=== PATIENT | female | born 1935 | race Caucasian/White ===

== ENCOUNTER 2022-09-18 15:24 | Emergency (ER) | payer MEDICARE, BC, SELFPAY ==
[2022-09-18 15:35] VITALS: BP 127/57; PULSE 66; RESP 20; TEMP 36.1; O2SAT 99; BMI 44.2
--- NOTE | 2022-09-18 15:58 | ED.NURSE ---
dr. beebe in room.
[2022-09-18 16:44] LABS: Chloride* 100 mmol/L (96-114); Sodium* 141 mmol/L (135-149)
[2022-09-18 16:45] LABS: Potassium* 4.2 mmol/L (3.6-5.1)
[2022-09-18 16:47] LABS: Carbon Dioxide* 31 mmol/L (20-32); Creatinine* 1.7 mg/dL (0.5-1.5); Est. Creatinine Clearance* 22.17; Estimated Glomerular Filt Rate 29 ml/min
[2022-09-18 16:48] LABS: Blood Urea Nitrogen* 54 mg/dL (7-30); Calcium* 9.8 mg/dL (8.4-10.6); Glucose* 99 mg/dL (60-115)
[2022-09-18 16:49] LABS: D Dimer Quantitative* 0.91 ug/ml (0.00-0.50)
--- NOTE | 2022-09-18 17:20 | CRLHL7_ITS ---
For Patients: As a result of the Century Cures Act, medical imaging exams and procedure reports are released immediately into your electronic medical record. You may view this report before your referring provider. If you have questions, please contact your health care provider. INDICATION: Leg pain and swelling. TECHNIQUE: Ultrasound venous duplex lower left extremity. Compression venous exam was performed using blackwood-scale, color Doppler, and spectral Doppler analysis. COMPARISON: None. FINDINGS: Deep veins: Sonographic imaging demonstrates the left common femoral, deep femoral, superficial femoral, popliteal, posterior tibial and the contralateral right common femoral veins to be fully compressible with normal color Doppler blood flow. Decreased compressibility and flow within the peroneal veins is noted. Superficial veins: Greater saphenous vein is fully compressible. No popliteal cyst. IMPRESSION: Decreased compressibility and flow within the peroneal veins, consistent with acute DVT. Findings discussed with Dr. Danette Villela at 6:35 p.m. on 09/18/[address] Bowers Dictated by Tomás Bowers MD @ 09/18/2022 6:35:25 PM (Electronically Signed)
--- NOTE | 2022-09-18 18:47 | ED.GENADULT ---
HPI - General Adult General Chief complaint: Edema Stated complaint: Lipoedema Source: patient Mode of arrival: ambulatory Limitations: no limitations History of Present Illness HPI narrative: 86-year-old female coming in today complaining of left-sided leg pain. Patient does have chronic bilateral lower extremity edema that causes her chronic pain, however this pain is different. She states that a woke or up in the middle of the night. She describes the pain radiating from her toes all the way up to her mid calf and anterior salgado. The pain is circumferential. Nothing makes it better. She states that she has noticed increasing leg edema over the last couple of days she increased her Lasix from 20 mg daily to 40 mg daily but has not noticed a difference. She does not have increased pain on the right only on the left. She is supposed to be wearing compression stockings which she does not wear. She is not short of breath. She denies any chest pain. No coughing. She does have a history of chronic kidney disease, hypertension, depression, obesity, hypothyroidism and chronic bilateral lower extremity edema, she does follow up with the lymphedema clinic. Related Data Home Medications Medication Instructions Recorded Confirmed allopurinol 100 mg tablet mg 09/18/22 dapagliflozin 10 mg tablet mg 09/18/22 (Farxiga) furosemide 20 mg tablet mg 09/18/22 simvastatin 20 mg tablet mg 09/18/22 Previous Rx's Medication Instructions Recorded bupropion HCl 300 mg 24 hr tablet, 300 mg PO QAM #90 tabs 07/31/22 extended release levothyroxine 25 mcg tablet 25 mcg PO QDAY #90 tabs 07/31/22 lisinopril 20 1 tab PO QDAY #90 tabs 07/31/22 mg-hydrochlorothiazide 12.5 mg tablet apixaban 5 mg (74 tabs) tablets in See Rx Instructions PO .COMPLEX 09/18/22 a dose pack (Eliquis DVT-PE Treat #74 ea 30D Start) Allergies Allergy/AdvReac Type Severity Reaction Status Date / Time clavulanic acid Allergy Verified 09/18/22 15:35 oxycodone Allergy Verified 09/18/22 15:35 tazobactam Allergy Verified 09/18/22 15:35 Tetracyclines Allergy Verified 09/18/22 15:35 Review of Systems Status of ROS: Reports: 10 or more systems reviewed and unremarkable except as noted in History and below PFSH PFSH Social History Smoking Status: Never smoker How often do you have a drink containing alcohol: never AUDIT-C Alcohol total score: 0 Non-prescribed substance use: denies use Caffeine: No service: No Exam Narrative: Exam Narrative: Ob patient in no acute distress. Alert and oriented. Answers questions appropriately. Mood and affect are appropriate. Thoughts are goal oriented and rational. No tangential or magical thinking noted. Patient speaks in full sentences without needing to catch their breath. HEENT: Normocephalic atraumatic. Pupils are equally round reactive to light. Extraocular muscles are intact. Conjunctivae are moist without any icterus noted. Moist mucous membranes. Cardiovascular: Heart is regular rate and rhythm S1 and S2 are present without any murmurs. Lungs: Clear to auscultation bilaterally no wheezes rhonchi or rales are appreciated. Patient takes deep breaths without any discomfort. Extremities: Bilateral lower extremities . The right is bigger than the left. She does have chronic venous stasis induration changes the skin on the right . After, anterior salgado, foot on the left. I cannot feel her pulses secondary to the edema. Skin: Otherwise well perfused Const: Vital Signs, click to edit/add: Vital Signs - 24 hr 09/18/22 15:35 Temperature 97.0 F L Pulse Rate [Right Pulse Oximeter] 66 Respiratory Rate 20 Blood Pressure [Ri ght Upper Arm] 127/57 L Pulse Oximetry 99 Oxygen Delivery Me thod Room Air Course Course Hospital Course: Proceeded with some blood work: Her creatinine appears to be around her baseline last creatinine we have here was 1.6, today 1.7. Her D-dimer was slightly elevated therefore received with lower extremity ultrasound. The ultrasound did show a DVT on the left side. Vital Signs Vital signs: Initial Vital Signs Temperature 97.0 F L 09/18/22 15:35 Temperature Source Temporal Artery Scan 09/18/22 15:35 Pulse Rate 66 09/18/22 15:35 Respiratory Rate 20 09/18/22 15:35 Blood Pressure 127/57 L 09/18/22 15:35 Blood Pressure Mean 80 09/18/22 15:35 Blood Pressure Position Sitting 09/18/22 15:35 Pulse Oximetry 99 09/18/22 15:35 Oxygen Delivery Method 09/18/22 15:35 Vital Signs Temperature 97.0 F L 09/18/22 15:35 Pulse Rate 66 09/18/22 15:35 Respiratory Rate 20 09/18/22 15:35 Blood Pressure 127/57 L 09/18/22 15:35 Pulse Oximetry 99 09/18/22 15:35 Oxygen Delivery Method 09/18/22 15:35 Temperature 97.0 F L 09/18/22 15:35 Pulse Rate 66 09/18/22 15:35 Respiratory Rate 20 09/18/22 15:35 Blood Pressure 127/57 L 09/18/22 15:35 Pulse Oximetry 99 09/18/22 15:35 Oxygen Delivery Method 09/18/22 15:35 Medical Decision Making MDM Narrative Medical decision making narrative: 86-year-old female DVT left lower extremity. Will place the patient on Eliquis. She will follow up with primary provider this coming week. Medical Records Medical records reviewed: Yes I reviewed the patient's medical records Lab Data Lab results reviewed: Yes I reviewed the patient's lab results Labs: Lab Results 09/18/22 09/18/22 Range/Units 16:20 16:20 D-Dimer Quant (PE/DVT) 0.91 H (0.00-0.50) ug/ml Sodium 141 (135-149) mmol/L Potassium 4.2 (3.6-5.1) mmol/L Chloride 100 (96-114) mmol/L Carbon Dioxide 31 (20-32) mmol/L BUN 54 H (7-30) mg/dL Creatinine 1.7 H (0.5-1.5) mg/dL Estimated Creat Clear 22.17 Estimated GFR 29 ml/min Glucose 99 (60-115) mg/dL Calcium 9.8 (8.4-10.6) mg/dL Imaging Data Venous US: Attestation: I have reviewed the pertinent imaging results. Radiologist's impression: Ultrasound venous duplex lower left extremity. Compression venous exam was performed using blackwood-scale, color Doppler, and spectral Doppler analysis. COMPARISON: None. FINDINGS: Deep veins: Sonographic imaging demonstrates the left common femoral, deep femoral, superficial femoral, popliteal, posterior tibial and the contralateral right common femoral veins to be fully compressible with normal color Doppler blood flow. Decreased compressibility and flow within the peroneal veins is noted. Superficial veins: Greater saphenous vein is fully compressible. No popliteal cyst. IMPRESSION: Decreased compressibility and flow within the peroneal veins, consistent with acute DVT. Discharge Plan Discharge Clinical Impression: DVT (deep venous thrombosis) Patient Disposition: Home, Self-Care Condition: Stable Additional Instructions: Start Eliquis as prescribed. Follow-up with your primary care provider this week for further management. Prescriptions: New Eliquis DVT-PE Treat 30D Start 5 mg (74 tabs) tablets,dose pack See Rx Instructions .ROUTE .COMPLEX Qty: 74 0RF Rx Instructions: orally per package directions No Action allopurinol 100 mg tablet simvastatin 20 mg tablet Label Comments: TAKE 1 TABLET EVERY 48 HOURS furosemide 20 mg tablet Farxiga 10 mg tablet levothyroxine 25 mcg tablet 25 mcg PO QDAY Qty: 90 0RF bupropion HCl 300 mg tablet extended release 24 hr 300 mg PO QAM Qty: 90 0RF lisinopril-hydrochlorothiazide 20-12.5 mg tablet 1 tab PO QDAY Qty: 90 0RF Follow Up/Referrals: Diane Alejandra MD [Primary Care Provider] - Stand Alone Forms: [employer] Info Instructions
[2022-09-18 19:00] VITALS: BP 153/75; PULSE 72; RESP 18; TEMP 36.4; O2SAT 97
== END 2022-09-18 19:21 | disposition home or self-care (01) ==
LOC: ED2 16:39 → ED 16:56
PROVIDERS: Emergency Provider Family Medicine; PCP Internal Medicine
DX: I82.402 Acute embolism and thrombosis of unspecified deep veins of left lower extremity (principal); I12.9 Hypertensive chronic kidney disease with stage 1 through stage 4 chronic kidney disease, or unspecified chronic kidney disease; N18.9 Chronic kidney disease, unspecified; E03.9 Hypothyroidism, unspecified; Z79.899 Other long term (current) drug therapy; R60.0 Localized edema
CPT/HCPCS: 36415; 80048; 85379; 93971; 99284

== ENCOUNTER 2022-10-07 10:36 | Outpatient (CLI) | payer MEDICARE, BC, SELFPAY ==
--- OUTSIDE RECORDS SUMMARY | 2022-10-07 10:39 | XMS_ITS | Encounter Summary ---
:1935 Author Organization [facility] Address [address] [place] [address] Care Team Providers Name Role Phone Elsewhere, Pcp Primary Care Provider Unavailable Encounter Details Date Type Department Care Team Description 07/08/2022 Hospital Encounter Department of Radha Gramajo Kidney Laboratory Medicine M, GALVANIZER, C.N.P., Dise ase Stage 4 and Pathology, D.N.P. Glomerular [place] [address] [facility] Filtration Rate Building, in [place], [place] [address] ([facility]ER[facility]) [facility] [address] [place] [phone] [address] [facility] (Work) [place], [place] [phone] (Fax) [phone] Social History Tobacco Use Types Packs/Day Years Used Date Smoking Tobacco: Never Smokeless Tobacco: Never Alcohol Use Standard Drinks/Week Comments Not Currently 0 (1 standard drink = 0.6 oz pure alcoho l) Alcohol Habits Answer Date Recorded How often do you have a drink containing alcohol? Monthly or less 02/19/2022 How many drinks containing alcohol do you have on a 1 or 2 02/19/2022 typical day when you are drinking? How often do you have six or more drinks on one Never 02/19/2022 occasion? Social Isolation Answer Date Recorded In a typical week, how many times do you More than three gregoria es a week 02/19/2022 talk on the phone with family, friends, or neighbors? How often do you get together with friends Once a week 02/19/2022 or relatives? How often do you attend restoration or 1 to 4 times per year 03/2022 muslim services? Do you belong to any clubs or No 02/19/2022 organizations such as restoration groups, unions, fraternal or athletic groups, or school groups? How often do you attend meetings of the 1 to 4 times per yea r 02/19/2022 clubs or organizations you belong to? Are you now , , , 02/19/2022 , never or living with a partner? Physical Activity Answer Date Recorded On average, how many days per week do you engage in moderate to 0 days 02/19/2022 strenuous exercise (like walking fast, running, jogging, dancing, swimming, biking, or other activities that cause a light or heavy sweat)? On average, how many minutes do you engage in exercise at th is 0 min 02/19/2022 level? Stress Answer Date Recorded Do you feel stress - tense, restless, nervous, or Only a lit tle 02/19/2022 anxious, or unable to sleep at night because your mind is troubled all the time - these days? Financial Resource Strain Answer Date Recorded How hard is it for you to pay for the very basics like Not h sallie at all 02/19/2022 food, housing, medical care, and heating? Intimate Partner Violence Answer Date Recorded Within the last year, have you been afraid of your partner o r No 02/19/2022 ex-partner? Within the last year, have you been humiliated or emotionall y No 02/19/2022 abused in other ways by your partner or ex-partner? Within the last year, have you been kicked, hit, slapped, or No 02/19/2022 otherwise physically hurt by your partner or ex-partner? Within the last year, have you been raped or forced to have any No 02/19/2022 kind of sexual activity by your partner or ex-partner? Food Insecurity Answer Date Recorded Within the past 12 months, you worried that your food would Never true 02/19/2022 run out before you got money to buy more. Within the past 12 months, the food you bought just didn't N ever true 02/19/2022 last and you didn't have money to get more. Transportation Needs Answer Date Recorded In the past 12 months, has lack of transportation kept you f rom No 02/19/2022 medical appointments or from getting medications? In the past 12 months, has lack of transportation kept you f rom No 02/19/2022 meetings, work, or getting things needed for daily living? Housing Stability Answer Date Recorded In the last 12 months, was there a time when you were not ab le No 02/19/2022 to pay the mortgage or rent on time? In the last 12 months, how many places have you lived? 1 03/22/2021 In the last 12 months, was there a time when you did not hav e a No 02/19/[address] or slept in a usp (including now)? Education Answer Date Recorded What is the highest level of school Associate degree: magaly deal, 02/19/2022 you have completed or the highest technical, or vocational p wes degree you have received? Sex Assigned at Date Recorded Female 02/19/2022 7:48 AM CDT documented as of this encounter Medications at Time of Discharge Medication Sig Dispensed Refills Start Date End Date acetaminophen (TYLENOL) Take 1,000 mg by 0 500 mg capsule mouth every 6 (six) hours as needed. allopurinoL (ZYLOPRIM) Take 1 tablet (100 90 tablet 3 04/23 100 mg tablet mg total) by mouth daily. buPROPion XL (WELLBUTRIN Take 300 mg by mouth 0 XL) 300 mg 24 hr tablet daily. coenzyme Q10 (CO Q-10) Take 200 mg by mouth 0 200 mg capsule daily. collagen, hydrolysate, daily. 0 bovine, (collagen, hydr, bovine,, bulk,) 100 % powder dapagliflozin (FARXIGA) Take 1 tablet (10 mg 90 tablet 3 04/19/2023 10 mg tabletIndications: total) by mouth Hypertensive Chronic daily. Kidney Disease (CKD) Stage 3b Glomerular Filtration Rate (GFR) 30 To 44 (HCC) DME CPAPIndications: DME Order 1 Device 0 06/14/2021 Obstructive Sleep Apnea Adult DME CPAPIndications: DME Order 1 each 0 03/28/2022 Apnea Sleep Obstructive Needs replacement APAP device docosahexaenoic acid-epa Take 2 capsules by 0 120-180 mg capsule mouth daily. [place] 3 (strength unknown) esomeprazole (NexIUM) 20 Take 20 mg by mouth [address] capsule as needed. Hardly ever furosemide (LASIX) 20 mg Take 1 tablet (20 mg 90 tablet 3 0 04/23/2022 tablet total) by mouth daily. GLUTATHIONE MISC Take 1 capsule by 0 mouth daily. (strength unknown) ketoconazole (NIZORAL) 2 Apply 1 application 30 g 1 % cream topically 2 (two) times a day. Apply to right lateral abdomen twice daily for 4 weeks Lactobacillus acidophilus Take by mouth daily. 0 (PROBIOTIC ORAL) Friendly Sera levothyroxine (SYNTHROID, Take 25 mcg by mouth 0 LEVOTHROID) 25 mcg tablet daily. lidocaine (LMX) 4 % cream Apply 1 application 30 g 3 0 03/06/2021 topically 3 (three) times a day as needed for pain. lisinopril-hydroCHLOROthi Take 1 tablet by 0 /11/2014 azide mouth daily. (PRINZIDE,ZESTORETIC) 20-12.5 mg per tablet psyllium seed, with Take 2 each by mouth 0 sugar, (FIBER ORAL) daily. Fibermucil capsule sennosides (SENNA LAX Take 1 tablet by 0 10/15/20 07 ORAL) mouth as needed. simvastatin (ZOCOR) 20 mg every other day. Two 0 08/26/2021 tablet tablets a week UNABLE TO FIND MIXTURE as needed. Med Name: 0 ADDITIVE CBD cream UNABLE TO FIND Nopalea juice - 1 0 shot daily UNABLE TO FIND Med Name: Serovital 0 Advanced UNABLE TO FIND Take 1 each by mouth 0 daily. Med Name: Turmeric UNABLE TO FIND daily. Circulation 0 and vein support for healthy legs vitamin C/biotin Take 1 capsule by 0 (QBXN-[id number]-GGJBH, VIT mouth daily. C-BIOTIN, ORAL) VITAMIN K2 ORAL Take 1 capsule by 0 mouth daily. 120 mcg ZINC ACETATE ORAL Take 50 mg by mouth 0 daily. documented as of this encounter Plan of Treatment Not on filedocumented as of this encounter Procedures Procedure Name Priority Date/Time Associated Comments Diagnosis DIPSTICK, U Routine 07/08/2022 7:00 AM Results f or this CDT procedure are i n the results section. MICROSCOPIC AUTOMATED Routine 07/08/2022 7:00 AM Results for this CDT procedure are i n the results section. PH, U Routine 07/08/2022 7:00 AM Results f or this CDT procedure are i n the results section. ALBUMIN, RANDOM, U Routine 07/08/2022 7:00 AM Chronic Kidney R esults for this CDT Disease Stage 4 procedure ar e in Glomerular the results Filtration Rate section. 15 (HCC) OSMOLALITY, U Routine 07/08/2022 7:00 AM Results for this CDT procedure are i n the results section. URINALYSIS WITH Routine 07/08/2022 7:00 AM Chronic Kidney Resu lts for this MICROSCOPIC CDT Disease Stage 4 procedure ar e in Glomerular the results Filtration Rate section. (HCC) documented in this encounter Results (ABNORMAL) Dipstick, Urine (07/08/2022 7:00 AM CDT) Patholo gist Method Time Signature Hemoglobin, Trace (A) Negative 07/08/2022 DTL QL, U 7:39 AM CDT Leukocyte Large (A) Negative 07/08/2022 DTL Esterase, U 7:39 AM CDT Nitrite, U Negative Negative 07/08/2022 DTL 7:39 AM CDT Ketone, U Negative Negative 07/08/2022 DTL mg/dL 7:39 AM CDT Glucose, U Negative Negative 07/08/2022 DTL mg/dL 7:39 AM CDT Specimen Anatomical Collection Method Collection Time Receive d Time (Source) Location / / Volume Laterality Urine 07/08/2022 7:00 AM 7:16 CDT AM CDT Radha Gramajo APRN, C.N.P., D.N.P. LAB URINE TALYA DEAN Performing Organization Address City/State/ZIP Code Phon e Number [facility] - [address] [place], [place] [address] [facility] [place] [address] Laboratories-[facility] [address] pH, Urine (07/08/2022 7:00 AM CDT) P athologist Signature pH, U 5.7 4.5 - 8.0 07/08/2022 7:58 DTL AM CDT Specimen Anatomical Collection Method Collection Time Receive d Time (Source) Location / / Volume Laterality Urine 07/08/2022 7:00 AM 7:16 CDT AM CDT Kitty Navarro APRN.N.P., D.N.P. LAB URINE ORDE JORDIJUANITA Performing Organization Address City/[facility] Phon e Number [facility] - [address] [place], [place] [address] [place] [address] Laboratories-[address] Osmolality, Urine (07/08/2022 7:00 AM CDT) P athologist Signature Osmolality, U 405 150 - 1150 07/08/2022 DTL mOsm/kg 7:58 AM CDT Specimen Anatomical Collection Method Collection Time Receive d Time (Source) Location / / Volume Laterality Urine 07/08/2022 7:00 AM 7:16 CDT AM CDT Kitty Navarro APRN.N.P., D.N.P. LAB URINE ORDE JERMAINE Performing Organization Address City/[facility] Phon e Number [facility] - [address] [place] [address] [place] [id number] [place] [address] (ABNORMAL) Microscopic Automated (07/08/2022 7:00 AM CDT) P athologist Signature Microscopy Abnormal 07/08/2022 DTL 7:39 AM CDT WBC >100 (A) /hpf 07/08/2022 DTL 7:39 AM CDT Comment: ----REFERENCE VALUE---- 1-3 ??(Males) 1-10 (Females) Squamous Epithelial Cells, U 1-3 /hpf 07/08/2022 7:39 AM CDT DTL Bacteria Present (A) 07/08/2022 7:39 AM CDT DTL Specimen Anatomical Collection Method Collection Time Receive d Time (Source) Location / / Volume Laterality Urine 07/08/2022 7:00 AM 7:16 CDT AM CDT Kitty Navarro APRN.N.P., Dereck.N.P. LAB URINE TALYA DEAN Performing Organization Address [facility]/ZIP Code Phon e Number [facility] - [address] [address] Laboratories[address] (ABNORMAL) Albumin, Random, Urine (07/08/2022 7:00 AM CDT) P athologist Signature Albumin, 41.7 mg/L 07/08/2022 DTL Random, U 10:53 AM CDT Comment: ----ADDITIONAL INFORMATION---- This test has been modified from the man ufacturer's instructions. Its performance characteri stics were determined by [facility] in a manner co nsistent with CLIA requirements. This test has not bee n cleared or approved by the U.S. Food and Drug Admin istration. Creatinine 98 mg/dL 07/08/2022 8:02 AM CDT DTL Albumin/Creatinine Ratio 43 (H) <25 mg/g 07/08/2022 10:5 3 AM CDT DTL Specimen Anatomical Collection Method Collection Time Receive d Time (Source) Location / / Volume Laterality Urine (Urine, 07/08/2022 7:00 AM 07/08/20 7:16 Midstream) CDT AM CDT Radha Gramajo APRN, C.N.P., D.N.P. LAB URINE TALYA DEAN Performing Organization Address City/[facility]/ZIP Code Phon e Number [facility] - [address] [address] Laboratories[address] (ABNORMAL) Urinalysis with Microscopic: Urine, Midstream (07/08/2022 7:00 AM CDT) Patholo gist Method Time Signature Source Urine, Urine, 07/08/2022 DTL Midstream 7:16 AM CDT Color, U Yellow 07/08/2022 DTL 7:16 AM CDT Clarity, U Clear 07/08/2022 DTL 7:16 AM CDT Protein, U 18 <26 mg/dL 07/08/2022 DTL 8:02 AM CDT Protein/Osmol 0.44 (H) <0.42 07/08/2022 DTL ality ratio 8:02 AM CDT Predicted 24 320 mg/24 h 07/08/2022 DTL Hr Protein 8:02 AM CDT Predicted 79-1297 mg/24 h 07/08/2022 DTL Range 8:02 AM CDT Specimen Anatomical Collection Method Collection Time Receive d Time (Source) Location / / Volume Laterality Urine (Urine, 07/08/2022 7:00 AM 07/08/20 7:16 Midstream) CDT AM CDT Radha Gramajo APRN, C.N.P., D.N.P. LAB URINE TALYA DEAN Performing Organization Address City/State/ZIP Code Phon e Number [facility] - [address] [place], [place] [address] [facility] [place] [address] Laboratories-[facility] [address] documented in this encounter Visit Diagnoses Diagnosis Chronic Kidney Disease Stage 4 Glomerula r Filtration Rate 15-29 (HCC) documented in this encounter Additional Health Concerns Assessment Noted Time PHQ-9 Depression Total Score: 15 03/22/2021 12:16 PM C DT documented as of this encounter Care Teams Credit Rating Checker Relationship Specialty Start Date End Date Elsewhere, Pcp PCP - General Internal Medicine 03/26/22 documented as of this encounter
--- OUTSIDE RECORDS SUMMARY | 2022-10-07 10:39 | XMS_ITS | Encounter Summary ---
:1935 Author Organization [facility] Address [address] [place] [address] Care Team Providers Name Role Phone Elsewhere, Pcp Primary Care Provider Unavailable Encounter Details Date Type Department Care Team Description 07/08/2022 Hospital Encounter Department of Radha Gramajo Kidney Laboratory Medicine M, RENTAL MANAGER, C.N.P., Dise ase Stage 4 and Pathology, D.N.P. Glomerular [facility], in [address] Filtration Rate [place], [place] [address] ([facility]) [place] [address] [address] [facility] [phone] [place], [place] (Work) [phone] Social History Tobacco Use Types Packs/Day Years [...] or relatives? How often do you attend worship or 1 to 4 times per year 03/2022 tenriism services? Do you belong to any clubs or No 02/19/2022 organizations such as worship groups, unions, fraternal or athletic groups, or [...] place to sleep or slept in a assisted (including now)? Education Answer Date Recorded What is the highest level of school Associate degree: magaly deal, 02/19/2022 you have completed or the highest technical, or vocational p suryram degree you have received? Sex Assigned at [...] by 0 120-180 mg capsule mouth daily. [place] 3 (strength unknown) esomeprazole (NexIUM) 20 Take [...] pain. lisinopril-hydroCHLOROthi Take 1 tablet by 0 /0 11/2014 azide mouth daily. (PRINZIDE,ZESTORETIC) 20-12.5 mg per [...] vitamin C/biotin Take 1 capsule by 0 (JSEU-UFEP-YAZNP, VIT mouth daily. C-BIOTIN, ORAL) VITAMIN K2 ORAL Take 1 capsule by 0 mouth daily. 120 mcg ZINC ACETATE ORAL Take 50 mg by mouth 0 daily. documented as of this encounter Plan of Treatment Not on filedocumented as of this encounter Procedures Procedure Name Priority Date/Time Associated Comments Diagnosis RENAL FUNCTION PANEL, Routine 07/08/2022 6:44 AM Chronic Kidne y Results for this S CDT Disease Stage 4 procedure ar e in Glomerular the results Filtration Rate section. - (HCC) CYSTATIN C WITH EGFR Routine 07/08/2022 6:44 AM Chronic Kidney Results for this CDT Disease Stage 4 procedure ar e in Glomerular the results Filtration Rate section. ([facility]) CBC WITHOUT Routine 07/08/2022 6:44 AM Chronic Kidney Results for this DIFFERENTIAL, B CDT Disease Stage 4 procedure are in Glomerular the results Filtration Rate section. ([facility]) PARATHYROID HORMONE Routine 07/08/2022 6:44 AM Chronic Kidney Results for this (PTH), S CDT Disease Stage 4 procedure ar e in Glomerular the results Filtration Rate section. ([facility]) HEMOGLOBIN A1C, B Routine 07/08/2022 6:44 AM Chronic Kidney Re sults for this CDT Disease Stage 4 procedure ar e in Glomerular the results Filtration Rate section. ([facility]) documented in this encounter Results (ABNORMAL) Hemoglobin A1c (07/08/2022 6:44 AM CDT) athologist Signature Hemoglobin A1c, 5.7 (H) 4.0 - 5.6 07/08/2022 DTL B % 7:47 AM CDT Comment: Hemoglobin A1c values of 5.7-6.4 percent indicate an increased risk for developing diabetes prieto lynch. In diabetic patients, HbA1c goals should be discussed with healthcare provider. Specimen Anatomical Collection Method Collection Time Receive d Time (Source) Location / / Volume Laterality Blood (Blood, 07/08/2022 6:44 AM 07/08/20 7:08 Venous) CDT AM CDT Radha Gramajo APRN, C.N.P., D.N.P. LAB BLOOD ADD- ON Performing Organization Address City/State/ZIP Code Phon e Number [facility] - [address] [place], [place] [address] [facility] [place] [address] Laboratories-[facility] [address] (ABNORMAL) Cystatin C with Estimated GFR (07/08/2022 6:44 AM CDT) P athologist Signature eGFR by 20 (L) >60 07/08/2022 DTL Cystatin C mL/min/BSA 7:43 AM CDT Comment: Estimated GFR calculated using the CKD-E PI Cystatin C (2012) equation. ----ADDITIONAL INFORMATION---- Cystatin C-based eGFR may differ substantially from creatinine- based eGFR in patients with abnormal muscle mass or acutely changing renal function. ??Please interpret together with relevant clinical features. On 04/12/2021 the cystatin C assay method changed. Cystatin C eGFR results > 50 ml/min/1.73m2 are approximately 10% lower with the new assay. Cystatin C 2.45 (H) 0.67 - 1.21 mg/L 07/08/2022 7:43 AM CDT DTL Specimen Anatomical Collection Method Collection Time Receive d Time (Source) Location / / Volume Laterality Blood (Blood, 07/08/2022 6:44 AM 07/08/20 7:22 Venous) CDT AM CDT Radha Gramajo APRN, C.N.P., D.N.P. LAB BLOOD ADD- ON Performing Organization Address City/[facility] Phon e Number [facility] - [address] [place] [address] (ABNORMAL) Parathyroid Hormone (PTH) (07/08/2022 6:44 AM CDT) Analysis Performed At Patho logist Time Signature Parathyroid 108 (H) 15 - 65 07/08/2022 DTL Hormone (PTH), S pg/mL 7:55 AM CDT Specimen Anatomical Collection Method Collection Time Receive d Time (Source) Location / / Volume Laterality Blood (Blood, 07/08/2022 6:44 AM 07/08/20 7:22 Venous) CDT AM CDT Radha Gramajo APRN, C.N.P., D.N.P. LAB BLOOD ADD- ON Performing Organization Address City/[facility] Phon e Number [facility] [address] [place] [id number] [address] (ABNORMAL) Renal Function Panel (07/08/2022 6:44 AM CDT) Analysis Performed At Patho logist Time Signature Potassium, S 4.6 3.6 - 5.2 07/08/2022 DTL mmol/L 7:43 AM CDT Sodium, S 141 135 - 145 07/08/2022 DTL mmol/L 7:43 AM CDT Chloride, S 104 98 - 107 07/08/2022 DTL mmol/L 7:43 AM CDT Bicarbonate, S 26 22 - 29 07/08/2022 DTL mmol/L 7:43 AM CDT Anion Gap 11 7 - 15 07/08/2022 DTL 7:43 AM CDT BUN (Blood Urea 36 (H) 6 - 21 07/08/2022 DTL Nitrogen), S mg/dL 7:43 AM CDT Creatinine 1.81 (H) 0.59 - 07/08/2022 DTL 1.04 mg/dL 7:43 AM CDT eGFR-Non 25 (L) >=60 07/08/2022 DTL Black/ mL/min/BSA 7:43 AM CDT [place] Comment: ----ADDITIONAL INFORMATION---- Estimated GFR calculated using the 2009 CKD_EPI creatinine equation. eGFR-Black/ 29 (L) >=60 mL/min/BSA 2021 7:43 AM CDT DTL Comment: ----ADDITIONAL INFORMATION---- Estimated GFR calculated using the 2009 CKD_EPI creatinine equation. Calcium, Total, S 9.6 8.8 - 10.2 mg/dL 07/08/2022 7:43 AM CDT DTL Glucose, S 108 70 - 140 mg/dL 07/08/2022 7:43 AM CDT D TL Albumin, S 4.2 3.5 - 5.0 g/dL 07/08/2022 7:43 AM CDT D TL Phosphorus (Inorganic), S 3.7 2.5 - 4.5 mg/dL 07/08/20 7:43 AM CDT DTL Specimen Anatomical Collection Method Collection Time Receive d Time (Source) Location / / Volume Laterality Blood (Blood, 07/08/2022 6:44 AM 07/08/20 7:22 Venous) CDT AM CDT Radha Gramajo APRN, C.N.P., D.N.P. LAB BLOOD ADD- ON Performing Organization Address City/State/ZIP Code Phon e Number [facility] - [address] [place], [place] [address] [facility] [place] [address] Laboratories-[facility] [address] CBC without Differential (07/08/2022 6:44 AM CDT) P athologist Signature Hemoglobin 11.8 11.6 - 07/08/2022 DTL 15.0 g/dL 7:33 AM CDT Hematocrit 39.3 35.5 - 07/08/2022 DTL 44.9 % 7:33 AM CDT Erythrocytes 4.05 3.92 - 07/08/2022 DTL 5.13 7:33 AM CDT x10(12)/L MCV 97.0 78.2 - 07/08/2022 DTL 97.9 fL 7:33 AM CDT RBC Distrib Width 13.8 12.2 - 07/08/2022 DTL 16.1 % 7:33 AM CDT Platelet Count 211 157 - 371 07/08/2022 DTL x10(9)/L 7:33 AM CDT Leukocytes 6.2 3.4 - 9.6 07/08/2022 DTL x10(9)/L 7:33 AM CDT Specimen Anatomical Collection Method Collection Time Receive d Time (Source) Location / / Volume Laterality Blood (Blood, 07/08/2022 6:44 AM 07/08/20 7:08 Venous) CDT AM CDT Radha Gramajo APRN, C.N.P., D.N.P. LAB BLOOD ADD- ON Performing Organization Address City/State/ZIP Code Phon e Number [facility] - [address] [place] [address] [facility] [place] [place] [address] [facility] 200 [facility] documented in this encounter Visit Diagnoses Diagnosis Chronic Kidney Disease Stage 4 Glomerula r Filtration Rate 15-29 (HCC) documented in this encounter Additional Health Concerns Assessment Noted Time PHQ-9 Depression Total Score: 15 03/22/2021 12:16 PM C DT documented as of this encounter Care Teams Yeast Distiller Relationship Specialty Start Date End Date Elsewhere, Pcp PCP - General Internal Medicine 03/26/22 documented as of this encounter
--- OUTSIDE RECORDS SUMMARY | 2022-10-07 10:39 | XMS_ITS | Encounter Summary ---
:1935 Author Organization [facility] Address [address] [place] [address] Care Team Providers Name Role Phone Elsewhere, Pcp Primary Care Provider Unavailable Encounter Details Date Type Department Care Team Description 09/18/2022 Clinical Communication Department of Physical [facility] Medicine and [facility] Rehabilitation in [place], [place] ABPTS-[facility] [address] [facility] [address] [place] [address] [place], [place] [phone] Social History Tobacco Use Types Packs/Day Years [...] or relatives? How often do you attend mosque or 1 to 4 times per year 03/2022 uatsdin services? Do you belong to any clubs or No 02/19/2022 organizations such as mosque groups, unions, fraternal or athletic groups, or [...] place to sleep or slept in a chcf (including now)? Education Answer Date Recorded What is the highest level of school Associate degree: magaly deal, 02/19/2022 you have completed or the highest technical, or vocational p wes degree you have received? Sex Assigned at Date Recorded Female 02/19/2022 7:48 AM CDT documented as of this encounter Miscellaneous Notes Telephone Encounter - Abel Suero - 09/18/2022 8:31 AM CDT Mirian- Please call Mrs. Yap today, she is having new pain and is hardly able to stand on legs. Mrs. Yap stats this is unlike the symptoms she had in the past, and she is unsure of what she should do. Please call her at [phone]. documented in this encounter Plan of Treatment Not on filedocumented as of this encounter Visit Diagnoses Not on filedocumented in this encounter Additional Health Concerns Assessment Noted Time PHQ-9 Depression Total Score: 15 03/22/2021 12:16 PM C DT documented as of this encounter Care Teams Detailer School Photographs Relationship Specialty Start Date End Date Elsewhere, Pcp PCP - General Internal Medicine 03/26/22 documented as of this encounter
--- OUTSIDE RECORDS SUMMARY | 2022-10-07 10:39 | XMS_ITS | Clinical Summary ---
:1935 Author Organization [facility] Address [address] [place] [address] Care Team Providers Name Role Phone Elsewhere, Pcp Primary Care Provider Unavailable Source Comments Patient records contain information from all sites at [facility]. For routine questions regarding patient records, call [phone] during business hours, M-F 8:00 AM - 5:00 PM Central Time. Record requests for emergency care only can be directed to [phone] at any time.[facility] Allergies Active Allergy Reactions Severity Noted Date Comments Amoxicillin-Pot Nausea And Vomiting 04/03/2006 Clavulanate Ibuprofen Other (see comments) 09/27/2002 in larg e quantities- personality khadijah nge Tazobactam Nausea Only 11/29/2019 Tetracycline Other (see comments) 09/28/2002 Yeast i nfection Medications Medication Sig Dispensed Refills Start Date End Date Status acetaminophen Take 1,000 mg by 0 Active (TYLENOL) 500 mg mouth every 6 capsule (six) hours as needed. buPROPion XL Take 300 mg by 0 Ac tive (WELLBUTRIN XL) 300 mg mouth daily. 24 hr tablet docosahexaenoic Take 2 capsules by 0 Active acid-epa 120-180 mg mouth daily. [place] capsule 3 (strength unknown) esomeprazole (NexIUM) Take 20 mg by [address] capsule mouth as needed. Hardly ever levothyroxine Take 25 mcg by 0 A ctive (SYNTHROID, mouth daily. LEVOTHROID) 25 mcg tablet lisinopril-hydroCHLORO Take 1 tablet by 0 04/17/2015 Active thiazide mouth daily. (PRINZIDE,ZESTORETIC) 20-12.5 mg per tablet sennosides (SENNA LAX Take 1 tablet by 0 10/15/2007 Active ORAL) mouth as needed. ZINC ACETATE ORAL Take 50 mg by 0 Active mouth daily. collagen, hydrolysate, daily. 0 Active bovine, (collagen, hydr, bovine,, bulk,) 100 % powder coenzyme Q10 (CO Q-10) Take 200 mg by 0 Active 200 mg capsule mouth daily. UNABLE TO FIND [place] juice - 1 0 Active shot daily GLUTATHIONE MISC Take 1 capsule by 0 Active mouth daily. (strength unknown) VITAMIN K2 ORAL Take 1 capsule by 0 Active mouth daily. 120 mcg lidocaine (LMX) 4 % Apply 1 30 g 3 03/06/2021 Active cream application topically 3 (three) times a day as needed for pain. Additional Information Patient not taking. Reported on 07/08/2022 vitamin C/biotin Take 1 capsule by mouth 0 Active (LAXB-FAQG-HPXSM, VIT daily. C-BIOTIN, ORAL) DME CPAPIndications: DME Order 1 Device 0 06/14/2021 Active Obstructive Sleep Apnea Adult UNABLE TO FIND MIXTURE as needed. Med Name: CBD 0 Active ADDITIVE cream simvastatin (ZOCOR) 20 mg every other day. Two 0 08/2021 Active tablet tablets a week UNABLE TO FIND Med Name: Serovital 0 Active Advanced ketoconazole (NIZORAL) 2 % Apply 1 application 30 g 1 10/2021 Active cream topically 2 (two) times a day. Apply to right lateral abdomen twice daily for 4 weeks Additional Information Patient not taking. Reported on 07/08/2022 UNABLE TO FIND Take 1 each by mouth 0 Active daily. Med Name: Turmeric psyllium seed, with Take 2 each by mouth 0 Active sugar, (FIBER ORAL) daily. Fibermucil capsule UNABLE TO FIND daily. Circulation and 0 Active vein support for healthy legs Lactobacillus Take by mouth daily. 0 Active acidophilus (PROBIOTIC Friendly Sera ORAL) DME CPAPIndications: DME Order 1 each 0 03/28/2022 Active Apnea Sleep Obstructive Needs replacement APAP device dapagliflozin (FARXIGA) Take 1 tablet (10 mg 90 tablet 3 04/1904/19/2023 Active 10 mg tabletIndications: total) by mouth daily. Hypertensive Chronic Kidney Disease (CKD) Stage 3b Glomerular Filtration Rate (GFR) 30 To 44 (HCC) allopurinoL (ZYLOPRIM) Take 1 tablet (100 mg 90 tablet 3 04/23 Active 100 mg tablet total) by mouth daily. furosemide (LASIX) 20 mg Take 1 tablet (20 mg 90 tablet 3 05/2022 Active tablet total) by mouth daily. Active Problems Problem Noted Date Cold Intolerance 03/28/2022 Lesion Skin 05/11/2021 Chronic Kidney Disease Stage 4 Glomerular Filtration R ate 15-05/10/2021 Other Specified Heart Block 05/10/2021 Incompetence Chronotropic 05/10/2021 Incontinence Urinary 03/26/2021 Edema Leg 03/22/2021 Hypertensive Chronic Kidney Disease (CKD) Stage 3b Madie merular Filtration 03/22/2021 Rate (GFR) 30 To 44 Thrombosis Deep Vein Personal History 03/22/2021 Dyspnea On Exertion 03/22/2021 Morbid Obesity Body Mass Index 40.0-44.9 Adult 021 Obstructive Sleep Apnea Adult 03/22/2021 History Of Falling 03/22/2021 Hyperlipidemia On Treatment Hypertension Personal History Resolved Problems Problem Noted Date Resolved Date Dysuria 03/26/2021 03/31/2021 Encounters Date Type Specialty Care Team Description 09/18/2022 Clinical Physical Medicine and [facility] K, P.T., D.P.T., ABPTS-ONC 07/08/2022 Office Visit Nephrology and Maddie Velásquez Ki dney Hypertension E, ECOTHERAPIST, Disease Stage 4 C.N.P., M.S. Glomerular Filtration Rate 15-29 (HCC) (Primary Dx) 07/08/2022 Hospital Encounter Laboratory Medicine Pretty Gramajo Kidney Radha , Disease Stage 4 ECOTHERAPIST, C.N.P., Glomerular D.N.P. Filtration Rate 15-29 (HCC) 07/08/2022 Hospital Encounter Laboratory Medicine [facility] Radha M, Disease Stage 4 ECOTHERAPIST, C.N.P., Glomerular D.N.P. Filtration Rate 15-29 (HCC) from Last 3 Months Immunizations Name Administration Dates Next Due H1N1 All Forms 11/14/2009 HZV (ZOSTAVAX) 08/13/2012 HepB, Unspecified 01/15/2005, 12/12/2004 Influenza (IM) Preservative Free 07/14/2010 Influenza TIV (IM) 08/16/2009, 09/16/2007, 09/15/2006, 09/08/2003, 09/27/2002, 11/24/2001 Influenza, Seasonal, Injectable 08/13/2012, 09/16/2007, 08/19, 09/08/2003, 09/27/2002 Influenza, Unspecified 08/17/2020, 08/20/2013 PCV13 09/29/2015 PPD Test 02/21/2003 PPSV23 08/10/2010, 09/05/1994 RZV (SHINGRIX) 10/29/2018, 08/20/2018 SARS-COV-2 (COVID-19) - PFIZER (12 09/12/2021, 02/17/2021, 0 01/27/2021 years or older) Td Preservative Free (TENIVAC, 08/10/2010, 01/24/2000 DECAVAC) Tdap 11/19/2016 influenza high dose (65 years or 08/25/2019, 08/15/2018, , older) (PF) 08/22/2016 influenza vaccine quad 09/12/2021 (FLUZONE/FLUARIX) (6 months and older)(PF) Social History Tobacco Use Types Packs/Day Years [...] or relatives? How often do you attend denominational or 1 to 4 times per year 03/2022 hoahaoism services? Do you belong to any clubs or No 02/19/2022 organizations such as denominational groups, unions, fraternal or athletic groups, or [...] place to sleep or slept in a residential (including now)? Education Answer Date Recorded What is the highest level of school Associate degree: magaly deal, 02/19/2022 you have completed or the highest technical, or vocational p wes degree you have received? Sex Assigned at Date Recorded Female 02/19/2022 7:48 AM CDT Last Filed Vital Signs Vital Sign Reading Time Taken Comments Blood Pressure 138/78 07/08/2022 8:37 AM CDT Pulse 69 07/08/2022 8:37 AM CDT Temperature 35 ??C (95 ??F) 07/08/2022 8:37 AM CDT Respiratory Rate - - Oxygen Saturation 97% 08/15/2021 11:41 AM CDT Inhaled Oxygen Concentration - - Weight 120 kg (264 lb 8.8 oz) 07/08/2022 8:37 AM CDT Height 163.9 cm (5' 4.53) 04/23/2022 1:55 PM CDT shoes Body Mass Index 44.67 04/23/2022 1:55 PM CDT Plan of Treatment Health Maintenance Due Date Last Done Comments Hepatitis B Vaccines (3 of 3 - 19+ 06/17/2005 01/15/2005, 0 12/12/2004 3-dose series) COVID-19 Vaccine (4 - Booster for 11/07/2021 09/12/2021, , Pfizer series) 01/27/2021 Depression Screening (Annual 11/17/2021 PHQ-2) Fall Risk Screen (Annual) 11/17/2021 Thyroid Stimulating Hormone (TSH) 03/28/2023 03/28/2022, , test for thyroid function 02/05/2017 Creatinine Level 07/08/2023 07/08/2022, 04/23/2022, 01/01/2022, Additional history exists Office Visit for Blood Pressure 07/08/2023 07/08/2022 Check / Re-check Potassium Level 07/08/2023 07/08/2022, 04/23/2022, 01/01/2022, Additional history exists Sodium Level 07/08/2023 07/08/2022, 04/23/2022, 01/01/2022, Additional history exists DTaP,Tdap,and Td Vaccines (2 - Td 11/19/2026 11/19/2016, , or Tdap) 01/24/2000 Pneumococcal vaccine (65+ years) Completed 09/29/2015, , 09/05/1994 Zoster Vaccines Completed 10/29/2018, 08/20/2018, 08/13/2012 Influenza Vaccine Completed 08/27/2022, 09/12/2021, 08/17/2020, Additional history exists Medical Devices Implanted Type Area Generating Station Mechanic Device Shelf Model / Identifier Expiration Serial / Date Lot Hardware E.G. Hardware e.g. 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 Conversions - Default Historical Implant Device Hip Implant Bilateral: Hip Implanted: 04/17/2015 (Quantity not on file) Description: Device Status Text - Total hip Left + right hip Knee Implant Knee Implant Right: Knee Description: Total right knee replacemen t Ocular Lens Ocular Lens Eye Description: Patient states cataracts re moved from both eyes. Procedures Procedure Name Priority Date/Time Associated Comments Diagnosis DIPSTICK, U Routine 07/08/2022 7:00 AM Results f or this CDT procedure are i n the results section. PH, U Routine 07/08/2022 7:00 AM Results f or this CDT procedure are i n the results section. OSMOLALITY, U Routine 07/08/2022 7:00 AM Results for this CDT procedure are i n the results section. MICROSCOPIC AUTOMATED Routine 07/08/2022 7:00 AM Results for this CDT procedure are i n the results section. ALBUMIN, RANDOM, U Routine 07/08/2022 7:00 AM Chronic Kidney R esults for this CDT Disease Stage 4 procedure ar e in Glomerular the results Filtration Rate section. ([facility]) URINALYSIS WITH Routine 07/08/2022 7:00 AM Chronic Kidney Resu lts for this MICROSCOPIC CDT Disease Stage 4 procedure ar e in Glomerular the results Filtration Rate section. ([facility]) HEMOGLOBIN A1C, B Routine 07/08/2022 6:44 AM Chronic Kidney Re sults for this CDT Disease Stage 4 procedure ar e in Glomerular the results Filtration Rate section. ([facility]) CYSTATIN C WITH EGFR Routine 07/08/2022 6:44 AM Chronic Kidney Results for this CDT Disease Stage 4 procedure ar e in Glomerular the results Filtration Rate section. ([facility]) PARATHYROID HORMONE Routine 07/08/2022 6:44 AM Chronic Kidney Results for this (PTH), S CDT Disease Stage 4 procedure ar e in Glomerular the results Filtration Rate section. ([facility]) RENAL FUNCTION PANEL, Routine 07/08/2022 6:44 AM Chronic Kidne y Results for this S CDT Disease Stage 4 procedure ar e in Glomerular the results Filtration Rate section. ([facility]) CBC WITHOUT Routine 07/08/2022 6:44 AM Chronic Kidney Results for this DIFFERENTIAL, B CDT Disease Stage 4 procedure are in Glomerular the results Filtration Rate section. ([facility]) from Last 3 Months Results (ABNORMAL) Dipstick, Urine (07/08/2022 7:00 AM CDT) [facility] Method Time Signature Hemoglobin, Trace (A) Negative [...] Radha Gramajo APRN, C.N.P., D.N.P. LAB URINE ORDE RABJUANITA Performing Organization Address City/[facility]/ZIP Code Phon e Number [facility] - [address] [address] [address] (ABNORMAL) Microscopic Automated (07/08/2022 7:00 AM CDT) athologist Signature Microscopy Abnormal 07/08/2022 DTL 7:39 AM CDT WBC >100 (A) /hpf 07/08/2022 DTL 7:39 AM CDT Comment: ----REFERENCE VALUE---- 1-3 ??(Males) 1-10 (Females) Squamous Epithelial Cells, U 1-3 /hpf 07/08/2022 7:39 AM CDT DTL Bacteria Present (A) 07/08/2022 7:39 AM CDT DTL Specimen Anatomical Collection Method Collection Time Receive d Time (Source) Location / / Volume Laterality Urine 07/08/2022 7:00 AM 2 7:16 CDT AM CDT Kitty Navarro APRN.N.P., D.N.P. LAB URINE ORDE RABJUANITA Performing Organization Address City/[facility]/ZIP Code Phon e Number [facility] - [address] [address] [address] pH, Urine (07/08/2022 7:00 AM CDT) athologist Signature pH, U 5.7 4.5 - 8.0 07/08/2022 7:58 DTL AM CDT Specimen Anatomical Collection Method Collection Time Receive d Time (Source) Location / / Volume Laterality Urine 07/08/2022 7:00 AM 2 7:16 CDT AM CDT Kitty Navarro APRN.N.P., D.N.P. LAB URINE ORDE RABJUANITA Performing Organization Address City/[facility]/ZIP Code Phon e Number [facility] - [address] [place] [address] [address] [place] [address] (ABNORMAL) Albumin, Random, Urine (07/08/2022 7:00 AM CDT) athologist Signature Albumin, 41.7 mg/L 07/08/2022 DT Random, U 10:53 AM CDT Comment: ----ADDITIONAL INFORMATION---- This test has been modified from the man ufacturer's instructions. Its performance characteri stics were determined by [facility] in a manner co nsistent with CLIA requirements. This test has not bee n cleared or approved by the U.S. Food and Drug Admin istration. Creatinine 98 mg/dL 07/08/2022 8:02 AM CDT DT Albumin/Creatinine Ratio 43 (H) <25 mg/g 07/08/2022 10:5 3 AM CDT DT Specimen Anatomical Collection Method Collection Time Receive d Time (Source) Location / / Volume Laterality Urine (Urine, 07/08/2022 7:00 AM 07/08/20 7:16 Midstream) CDT AM CDT Radha Grmaajo APRN, C.N.P., D.N.P. LAB URINE ORDE JERMAINE Performing Organization Address City/State/ZIP Code Phon e Number [address] Osmolality, Urine (07/08/2022 7:00 AM CDT) athologist Signature Osmolality, U 405 150 - 1150 07/08/2022 DT mOsm/kg 7:58 AM CDT Specimen Anatomical Collection Method Collection Time Receive d Time (Source) Location / / Volume Laterality Urine 07/08/2022 7:00 AM 7:16 CDT AM CDT Radha Gramajo APRN, C.N.P., D.N.P. LAB URINE ORDE JERMAINE Performing Organization Address City/State/ZIP Code Phon e Number [address] [address] [facility] Main [facility] 200 [facility] (ABNORMAL) Urinalysis with Microscopic: Urine, Midstream (07/08/2022 [...] Organization Address City/State/ZIP Code Phon e Number [facility] [place] - [address] [place] [address] [facility] [place] [address] [facility] 200 [facility] (ABNORMAL) Renal Function Panel (07/08/2022 6:44 AM [...] 07/08/2022 DTL Black/ mL/min/BSA 7:43 AM CDT Tristanian Comment: ----ADDITIONAL INFORMATION---- Estimated GFR calculated using [...] Organization Address City/State/ZIP Code Phon e Number [facility] - [address] [place], [place] [address] [facility] [place] [address] Laboratories-[facility] [address] (ABNORMAL) Cystatin [...] Organization Address City/State/ZIP Code Phon e Number [facility] - [address] [place] [address] [facility] [place] [address] Laboratories-[facility] 200 [facility] CBC without Differential (07/08/2022 6:44 AM CDT) [...] AM 07/08/20 7:08 Venous) CDT AM CDT Fred Navarro APRNN.PSharon, D.N.P. LAB BLOOD ADD- ON Performing Organization Address City/State/ZIP Code Phon e Number [facility] - [address] [place], [place] [address] [facility] [address] (ABNORMAL) Parathyroid Hormone (PTH) (07/08/2022 6:44 AM CDT) Analysis Performed At Patho logist Time Signature Parathyroid 108 (H) 15 - 65 07/08/2022 DTL Hormone (PTH), S pg/mL 7:55 AM CDT Specimen Anatomical Collection Method Collection Time Receive d Time (Source) Location / / Volume Laterality Blood (Blood, 07/08/2022 6:44 AM 07/08/20 7:22 Venous) CDT AM CDT Kitty Navarro APRN.N.P., D.N.P. LAB BLOOD ADD- ON Performing Organization Address City/[facility]/ZIP Code Phon e Number [facility] - [address] (ABNORMAL) Hemoglobin A1c (07/08/2022 6:44 AM CDT) P athologist Signature Hemoglobin A1c, 5.7 (H) 4.0 - 5.6 07/08/2022 DTL B % 7:47 AM CDT Comment: Hemoglobin A1c values of 5.7-6.4 percent indicate an increased risk for developing diabetes m ellitus. In diabetic patients, HbA1c goals should be discussed with healthcare provider. Specimen Anatomical Collection Method Collection Time Receive d Time (Source) Location / / Volume Laterality Blood (Blood, 07/08/2022 6:44 AM 07/08/20 7:08 Venous) CDT AM CDT Kitty Navarro APRN.N.P., D.N.P. LAB BLOOD ADD- ON Performing Organization Address City/State/ZIP Code Phon e Number [facility] - [address] [place], [place] [address] [facility] [place] [address] Laboratories-[facility] [address] from Last 3 Months Insurance Payer Benefit Plan Subscriber ID Effective Phone Address Typ e / Group Dates MEDICARE MEDICARE A [id number] 2002-Pres [address] [place] [address] [employer] FEDERAL [id number] 1988-Prese [phone] [address] Indemnity [employer] RETIREE [address] [place] [address] Care Teams [employer] Developer Relationship Specialty Start Date End Date Elsewhere, Pcp PCP - General Internal Medicine 03/26/22
--- OUTSIDE RECORDS SUMMARY | 2022-10-07 10:39 | XMS_ITS | Encounter Summary ---
:1935 Author Organization [facility] Address [address] [place] [address] Care Team Providers Name Role Phone Elsewhere, Pcp Primary Care Provider Unavailable Reason for Referral Specialty Diagnoses / Procedures Referred By Contact Refer red To Contact Maddie Velásquez APRN, C.NSharonPSharon, [facility] M.S. [address] [place] [address] Referral ID Status Reason Start Date Expiration Date Visits Requ ested Visits Authorized utpatient (Routine) - Authorized Specialty Diagnoses / Procedures Referred By Contact Refer red To Contact Nephrology and Maddie Velásquez [place] [facility] Hypertension Fred GARZONNMariya., M.S. [address] [place] [address] Referral ID Status Reason Start Date Expiration Date Visits V isits Requested Authorized [id number] Authorized 07/08/2022 07/07/2025 1 1 Reason for Visit Outpatient (Routine) - Closed Specialty Diagnoses / Procedures Referred By Contact Refer red To Contact Nephrology Radha Alejandrei on Hypertension RYANN Banks C.N.P., NoreenN.P. [address] [place] [address] Referral ID Status Reason Start Date Expiration Date Visits Requ ested Visits Authorized [id number] Closed 07/05/2022 07/04/2025 1 1 Encounter Details Date Type Department Care Team Description 07/08/2022 Office Visit Division of Nephrology Maddie Velásquez Ch Kidney and Hypertension in ERYANN C.NStephen, Dise ase Stage 4 [place], [place] M.S. Glomerular Filtration [address] [facility] Rate 15-29 (HCC) [place], [place] (Primary Dx) [phone] Social History Tobacco Use Types Packs/Day Years [...] or relatives? How often do you attend restorationist or 1 to 4 times per year 03/2022 sikhism services? Do you belong to any clubs or No 02/19/2022 organizations such as restorationist groups, unions, fraternal or athletic groups, or [...] place to sleep or slept in a snf (including now)? Education Answer Date Recorded What is the highest level of school Associate degree: magaly deal, 02/19/2022 you have completed or the highest technical, or vocational p USB [employer] degree you have received? Sex Assigned at Date Recorded Female 02/19/2022 7:48 AM CDT documented as of this encounter Last Filed Vital Signs Vital Sign Reading Time Taken Comments Blood Pressure 138/78 07/08/2022 8:37 AM CDT Pulse 69 07/08/2022 8:37 AM CDT Temperature 35 ??C (95 ??F) 07/08/2022 8:37 AM CDT Respiratory Rate - - Oxygen Saturation - - Inhaled Oxygen Concentration - - Weight 120 kg (264 lb 8.8 oz) 07/08/2022 8:37 AM CDT Height - - Body Mass Index 44.67 04/23/2022 1:55 PM CDT documented in this encounter Patient Instructions Patient InstructionsAngie Neely R.N. - 07/08/2022 8:30 AM CDT Please remember to avoid taking NSAIDS (such as ibuprofen, naproxen, ketorolac, indomethacin, nabumetone) as these medications may affect your kidney function. Should you receive medications from a doctor, please remind them of your kidney disease and ask thatthey check the appropriate dose for you. Your medications should be dosed for an eGFR of 25 mL/min/1.73 m2. Please remember that contrast dye from CT scans, heart catheterizations, or MRI studies may affect your kidney function. You should discuss this risk with your doctor. If you have high blood pressure please remember to record your blood pressure and weight daily. If you have concerns about your blood pressure or weight before you next appointment please contact the [facility]. Bring blood pressure and weight recordings to your next appointment. Ifyou gain more than 3 lb in a day or 5 lb in a week please contact the [facility]. Watch for uremic symptoms including fatigue, confusion, decreased appetite, metallic taste, nausea, vomiting, itching not relieved by lotions or creams, shortness of breath or decreased urine output. If you develop extreme shortness of breath or stop producing urine, go to the emergency room Contact the [facility] at [phone] if you have concerns regarding your kidneyor high blood pressure care. Please use our fax number [phone] if you are requested by your kidney health care provider to fax in any test results. Please work with your primary care provider to ensure your up to date on all your immunizations. documented in this encounter Progress Notes Maddie Velásquez APRN, C.N.P., M.S. - 07/08/2022 8:30 AM CDT SUBJECTIVE CHIEF COMPLAINT / REASON FOR VISIT Chronic kidney disease follow-up HISTORY OF PRESENT ILLNESS Ms. Yap is a 86 y.o. female with past medical history significant for longstanding hypertensionchronic joint pain and NSAID use, right lower extremity DVT, atrophic left kidney, hyperuricemia, obesity and [place] on CPAP. She was seen in follow-up of chronic kidney disease stage IV April 23, 2022 whencreatinine was 1.56 and GFR was 30 mL/min. At that time, Farxiga was prescribed by endocrinology; however, she had not yet started the medication. She presents for ongoing evaluation of chronic kidney disease. She is accompanied by her . She wears compression socks daily. She reports home blood pressures Friday was 138/51. She has stopped monitoring home blood pressures regularly. She tells me she has been on the Farxiga for about 2 isidoro hs. She wonders if the Farxiga is the cause of severe chills, increased edema, increased generalizedpain and fatigue Friday night. She was previously scheduled for follow-up in 2 months but became alarmed when she had the symptoms. She expresses dissatisfaction with her local primary care provider. Constitutional: Positive for fatigue. Skin: Positive for skin rash. Cardiovascular: Positive for swelling in the legs or feet and pain in the calf muscles when walking. Gastrointestinal: Positive for constipation and diarrhea. Genitourinary: Positive for incontinence. Musculoskeletal: Positive for pain or stiffness in the joints, back pain, joint swelling and muscle pain/stiffness. Neurological: Positive for numbness or shooting pain in hands, arms, legs, or feet and weakness in arms or legs. Psychiatric/Behavioral: Positive for excessive daytime sleepiness/tiredness and feeling nervous, anxious, or on edge in past two weeks. The following systems were negative: Eyes, ENT, Respiratory, Hematologic OBJECTIVE Vitals: 07/08/22 0837 BP: 138/78 BP Location: Left arm Patient Position: Sitting Cuff Size: Large Pulse: 69 Temp: (!) 35 ??C PHYSICAL EXAMINATION Constitutional General: She is not in acute distress. Cardiovascular Rate and Rhythm: Normal rate and regular rhythm. Comments: 2+ bilateral post tibial edema right greater than left Pulmonary Effort: Pulmonary effort is normal. Breath sounds: Normal breath sounds. Skin General: Skin is warm and dry. Neurological Mental Status: She is alert and oriented to person, place, and time. Psychiatric Mood and Affect: Mood normal. Behavior: Behavior normal. ASSESSMENT / PLAN #1 Chronic kidney disease (CKD) stage 4, secondary to NSAID use and atrophic left kidney Creatinine trended upward and GFR is 25 mL/min. Electrolytes are satisfactory. No dysuria or elevated white count is reassuring. Recommended continue Farxiga. She is reluctant to reduce furosemide due to persistent lower extremity edema. She agrees with plan to continue compression socks. She was given telephone number for [facility] connection for assistance with finding a PCP at [facility]. CKD follow-up 3 months or earlier if clinical changes. #2 CKD treatment options Today's focus was slowing the progression of renal disease with adequate blood pressure, adequate hydration, glycemic control, avoidance of any nephrotoxic medications and adjusting drug doses for level of estimated glomerular filtration rate (eGFR). #3 Hypertension Good control. Continue furosemide 20 mg daily and lisinopril-hydrochlorothiazide 20-12.5 mg daily. A2 albuminuria. ACR is stable. Continue dapagliflozin 10 mg daily. #4 Anemia of CKD Hemoglobin remains stable and at goal. #5 Hyperparathyroidism, renal secondary Calcium, phosphorus and PTH are in desired range. #6 Metabolic acidosis screening Bicarbonate is at goal without oral replacement. I personally spent over half of a total 30 minutes in counseling and discussion with the patient andcoordination of care as described above. documented in this encounter Plan of Treatment Scheduled Orders Name Type Priority Associated Diagnoses Order S chedule CBC without Differential Lab Routine Chronic Kidney D isease Expected: 10/08/2022, Stage 4 Glomerular Expires: 10/08/2023 Filtration Rate 15-29 (HCC) Renal Function Panel Lab Routine Chronic Kidney Disea se Expected: 10/08/2022, Stage 4 Glomerular Expires: 10/08/2023 Filtration Rate 15-29 (HCC) Parathyroid Hormone (PTH) Lab Routine Chronic Kidney Disease Expected: 10/08/2022, Stage 4 Glomerular Expires: 10/08/2023 Filtration Rate 15-29 (HCC) Urinalysis with Lab Routine Chronic Kidney Disease Ex pected: 10/08/2022, Microscopic: Urine, Stage 4 Glomerular Ex dat: 10/08/2023 Midstream Filtration Rate 15-29 (HCC) Albumin, Random, Urine Lab Routine Chronic Kidney Dis ease Expected: 10/08/2022, Stage 4 Glomerular Expires: 10/08/2023 Filtration Rate 15-29 (HCC) Scheduled Referrals Name Type Priority Associated Order Schedule Diagnoses Nephrology and Outpatient Referral Routine Expect ed: Hypertension office 10/08/20, visit (clinic) Expires: 10/08/2023 Patient Education - Outpatient Referral Routine Chronic Kidney Expected: Chronic kidney Disease Stage 4 10/08/2022 , disease stage 4 Glomerular Expires: treatment options Filtration Rate 023 education visit 15-29 (HCC) (clinic) (RST Only) documented as of this encounter Visit Diagnoses Diagnosis Chronic Kidney Disease Stage 4 Glomerula r Filtration Rate 15-29 (HCC) - Primary documented in this encounter Additional Health Concerns Assessment Noted Time PHQ-9 Depression Total Score: 15 03/22/2021 12:16 PM C DT documented as of this encounter Care Teams Registered Account Administrator Relationship Specialty Start Date End Date Elsewhere, Pcp PCP - General Internal Medicine 03/26/22 documented as of this encounter
--- OUTSIDE RECORDS SUMMARY | 2022-10-07 10:40 | XMS_ITS | Encounter Summary ---
:1935 Author Organization [facility] Address [address] [place] [address] Care Team Providers Name Role Phone Elsewhere, Pcp Primary Care Provider Unavailable Reason for Referral Outpatient (Routine) - Closed Specialty Diagnoses / Procedures Referred By Contact Refer red To Contact Nephrology and Radha Gramajo [place] Anny on Hypertension RYANN Banks C.N.PSharon, D.N.P. [address] [place] [address] Referral ID Status Reason Start Date Expiration Date Visits Requ ested Visits Authorized [id number] Closed 07/05/2022 07/04/2025 1 1 Scheduling Instructions Labs at 6:45 AM at [place], 8:30 AM with Maddie Velásquez. Encounter Details Date Type Department Care Team Description 07/05/2022 Clinical Communication Division of Nephrology Radha Gramajo and Hypertension in RYANN Banks C.N.PSharon, [place], [place] D.N.P. 200 [facility] [address] [place] [phone] Social History Tobacco Use Types Packs/Day Years [...] or relatives? How often do you attend sikh or 1 to 4 times per year 03/2022 sabianism services? Do you belong to any clubs or No 02/19/2022 organizations such as sikh groups, unions, fraternal or athletic groups, or [...] this encounter Miscellaneous Notes Telephone Encounter - Radha Gramajo APRN, C.N.P., D.N.P. - 07/05/2022 2:21 PM CDT Return phone call to the patient as she called in to 1 of our desk director of business operations. She is very concerned about her lower extremity swelling and she is feeling more tired. I am making arrangements for her to have labs 1st thing Friday morning and she will be seen in CKD Clinic. She verbalized understanding of my instructions and I have talked to the desk director of business operations for Nephrology [facility]. documented in this encounter Plan of Treatment Scheduled Referrals Name Type Priority Associated Order Schedule Diagnoses Nephrology and Outpatient Referral Routine Expect ed: Hypertension office 07/08/20, visit (clinic) Expires: 10/05/2023 documented as of this encounter Results (ABNORMAL) Albumin, Random, Urine (07/08/2022 7:00 AM CDT) athologist Signature Albumin, 41.7 mg/L 07/08/2022 DTL Random, U 10:53 AM CDT Comment: ----ADDITIONAL INFORMATION---- This test has been modified from the scott summers's instructions. Its performance characteri stics were determined by [facility] in a manner co nsistent with [...] Organization Address City/State/ZIP Code Phon e Number [facility] - [address] [place], [place] [address] [facility] [place] [address] [facility] [address] [facility] (ABNORMAL) Urinalysis with Microscopic: Urine, Midstream (07/08/2022 [...] Gramajo APRN, C.N.P., D.N.P. LAB URINE ORDE RABLES Performing Organization Address City/[facility] Phon e Number [facility] [id number] [place] [address] (ABNORMAL) Hemoglobin A1c (07/08/2022 6:44 AM CDT) P athologist Signature Hemoglobin A1c, 5.7 (H) 4.0 - 5.6 07/08/2022 DT B % 7:47 AM CDT Comment: Hemoglobin [...] LAB BLOOD ADD- ON Performing Organization Address City/[facility]/ZIP Code Phon e Number [facility] [address] [place] [address] [facility] 200 [facility] (ABNORMAL) Cystatin C with Estimated GFR (07/08/2022 [...] Organization Address City/State/ZIP Code Phon e Number [facility] - [address] [place], [place] [address] [place] [address] [facility] [address] (ABNORMAL) Parathyroid Hormone (PTH) (07/08/2022 6:44 [...] Organization Address City/State/ZIP Code Phon e Number [facility] - [address] [place], [place] [address] [facility] [place] [address] [facility] [address] (ABNORMAL) Renal Function Panel (07/08/2022 6:44 [...] 07/08/2022 DTL Black/ mL/min/BSA 7:43 AM CDT Latvian Comment: ----ADDITIONAL INFORMATION---- Estimated GFR calculated using [...] 7:22 Venous) CDT AM CDT Kitty Navarro APRN.N.Seth, D.N.P. LAB BLOOD ADD- ON Performing Organization Address City/[facility] Phon e Number [facility] - [address] [place], [place] [address] [facility] [place], [place] [id number] [place] [address] CBC without Differential (07/08/2022 6:44 AM CDT) [...] LAB BLOOD ADD- ON Performing Organization Address City/State/[facility] Phon e Number [facility] - [address] [place], [place] [address] [facility] [place] [address] documented in this encounter Visit Diagnoses Diagnosis Chronic Kidney Disease Stage 4 Glomerula r Filtration Rate 15-29 (HCC) - Primary documented in this encounter Additional Health Concerns Assessment Noted Time PHQ-9 Depression Total Score: 15 03/22/2021 12:16 PM C DT documented as of this encounter Care Teams Oil Dispatcher Relationship Specialty Start Date End Date Elsewhere, Pcp PCP - General Internal Medicine 03/26/22 documented as of this encounter
--- OUTSIDE RECORDS SUMMARY | 2022-10-07 10:40 | XMS_ITS | Encounter Summary ---
:1935 Author Organization [facility] Address [address] [place] [address] Care Team Providers Name Role Phone Elsewhere, Pcp Primary Care Provider Unavailable Encounter Details Date Type Department Care Team Description 04/01/2022 Documentation Division of Endocrinology in [place], [place] Leatha Boateng M.D. [address] [facility] [address] [place] [address] [place], [place] [phone] (Wo rk) Social History Tobacco Use Types Packs/Day Years [...] or relatives? How often do you attend yarsanism or 1 to 4 times per year 03/2022 baptist services? Do you belong to any clubs or No 02/19/2022 organizations such as yarsanism groups, unions, fraternal or athletic groups, or [...] place to sleep or slept in a senior living (including now)? Education Answer Date Recorded What is the highest level of school Associate degree: magaly deal, 02/19/2022 you have completed or the highest technical, or vocational p wes degree you have received? Sex Assigned at Date Recorded Female 02/19/2022 7:48 AM CDT documented as of this encounter Progress Notes Leatha Romero M.D. - 04/01/2022 8:07 AM CDT Discussed her case with Nephrology. They are supportive of starting an SGL T2 inhibitor. This will provide many benefits in regards to protecting her kidney function and her weight. She is on a diuretic at 20 mg daily. Her blood pressures have been slightly above desired. Hence I will not make any adjustments to this dose. We will start dapagliflozin 10 mg tablets, 1 tablet daily She will notice increased diuresis and as a result of sugar in the urine she would be at increased risk for urinary tract infections. She can alert us of any concerns. She is already scheduled for follow-up in the fall. documented in this encounter Plan of Treatment Not on filedocumented as of this encounter Visit Diagnoses Not on filedocumented in this encounter Additional Health Concerns Assessment Noted Time PHQ-9 Depression Total Score: 15 03/22/2021 12:16 PM C DT documented as of this encounter Care Teams Classification And Treatment Director Relationship Specialty Start Date End Date Elsewhere, Pcp PCP - General Internal Medicine 03/26/22 documented as of this encounter
--- OUTSIDE RECORDS SUMMARY | 2022-10-07 10:40 | XMS_ITS | Encounter Summary ---
:1935 Author Organization [facility] Address [address] [place] [address] Care Team Providers Name Role Phone Elsewhere, Pcp Primary Care Provider Unavailable Encounter Details Date Type Department Care Team Description 04/01/2022 Clinical Communication Department of Physical Jocelyn Plaza Medicine and K, P.T., Rehabilitation in [place], [place] ABPTS-ONC [address] [facility] [address] [place] [address] [place], [place] [phone] Social History Tobacco Use Types Packs/Day Years [...] or relatives? How often do you attend scientologist or 1 to 4 times per year 03/2022 rastafarian services? Do you belong to any clubs or No 02/19/2022 organizations such as scientologist groups, unions, fraternal or athletic groups, or [...] place to sleep or slept in a penitentiary (including now)? Education Answer Date Recorded What is the highest level of school Associate degree: magaly deal, 02/19/2022 you have completed or the highest technical, or vocational p wes degree you have received? Sex Assigned at Date Recorded Female 02/19/2022 7:48 AM CDT documented as of this encounter Miscellaneous Notes Telephone Encounter - Subha Pop - 04/01/2022 9:58 AM CDT Pt was seen 09/28/2021 would like to come back to see you. Can you place ongoing orders or forward to ordering provider? Thank you, Araceli Desk once orders are placed call pt to schedule would like to be seen during other appointment dates. documented in this encounter Plan of Treatment Not on filedocumented as of this encounter Visit Diagnoses Not on filedocumented in this encounter Additional Health Concerns Assessment Noted Time PHQ-9 Depression Total Score: 15 03/22/2021 12:16 PM C DT documented as of this encounter Care Teams Welding Production Supervisor Relationship Specialty Start Date End Date Elsewhere, Pcp PCP - General Internal Medicine 03/26/22 documented as of this encounter
--- OUTSIDE RECORDS SUMMARY | 2022-10-07 10:40 | XMS_ITS | Encounter Summary ---
:1935 Author Organization [facility] Address [address] [place] [address] Care Team Providers Name Role Phone Elsewhere, Pcp Primary Care Provider Unavailable Reason for Visit Reason Comments Med Refill Encounter Details Date Type Department Care Team Description 04/17/2022 Refill Division of Endocrinology in [facility] Leatha mckeon Med Refill [place], [place] Evette Boateng [address] [facility] [address] [place] [address] [place], [place] [phone] (Wo rk) Social History Tobacco Use Types [...] or relatives? How often do you attend buddhist or 1 to 4 times per year 03/2022 samaritan services? Do you belong to any clubs or No 02/19/2022 organizations such as buddhist groups, unions, fraternal or athletic groups, or [...] place to sleep or slept in a correction (including now)? Education Answer Date Recorded What is the highest level of school Associate degree: magaly deal, 02/19/2022 you have completed or the highest technical, or vocational p wes degree you have received? Sex Assigned at Date Recorded Female 02/19/2022 7:48 AM CDT documented as of this encounter Miscellaneous Notes Telephone Encounter - Xavier Brooks - 04/17/2022 5:01 PM CDT Requesting refills for the following prescriptions-- Did the request come from a pharmacy or the patient? Patient - rx was sent to local pharmacy, needs to be reissued to [facility] Name of the pharmacy: [facility] Preferred Pharmacy Correct in EPIC (yes or no): yes Medication(s) requested: dapagliflozin (FARXIGA) 10 mg tablet Summary: Take 1 tablet (10 mg total) by mouth daily Last quantity issued: 30 she needs to have 90 Patient's Endocrine provider is: Dr Yecenia Solis Thank you, Xavier documented in this encounter Plan of Treatment Not on filedocumented as of this encounter Visit Diagnoses Diagnosis Hypertensive Chronic Kidney Disease (CKD ) Stage 3b Glomerular Filtration Rate (GFR) 30 To 44 (HCC) - Primary documented in this encounter Additional Health Concerns Assessment Noted Time PHQ-9 Depression Total Score: 15 03/22/2021 12:16 PM C DT documented as of this encounter Care Teams Plate Furnace Operator Relationship Specialty Start Date End Date Elsewhere, Pcp PCP - General Internal Medicine 03/26/22 documented as of this encounter
--- OUTSIDE RECORDS SUMMARY | 2022-10-07 10:40 | XMS_ITS | Encounter Summary ---
:1935 Author Organization [facility] Address [address] [place] [address] Care Team Providers Name Role Phone Elsewhere, Pcp Primary Care Provider Unavailable Encounter Details Date Type Department Care Team Description 04/23/2022 Hospital Encounter Department of [place], Chronic Kidney Laboratory Medicine Nena Corley APRN, Di sease Stage 4 and Pathology, C.N.P., D.N.P. Glomerular [place] [address] [facility] Filtration Rate Building, in [place], [place] [address] ([facility]) [facility] [id number] [place] [phone] [address] (Work) [place] [address] Social History Tobacco Use Types Packs/Day Years [...] or relatives? How often do you attend sikhism or 1 to 4 times per year 03/2022 [employer] services? Do you belong to any clubs or No 02/19/2022 organizations such as sikhism groups, unions, fraternal or athletic groups, or [...] place to sleep or slept in a jail (including now)? Education Answer Date Recorded What [...] by 0 120-180 mg capsule mouth daily. [place] 3 (strength unknown) esomeprazole (NexIUM) 20 Take [...] vitamin C/biotin Take 1 capsule by 0 ([id number], VIT mouth daily. C-BIOTIN, ORAL) VITAMIN K2 ORAL Take 1 capsule by 0 mouth daily. 120 mcg ZINC ACETATE ORAL Take 50 mg by mouth 0 daily. documented as of this encounter Plan of Treatment Not on filedocumented as of this encounter Procedures Procedure Name Priority Date/Time Associated Comments Diagnosis DIPSTICK, U Routine 04/23/2022 10:54 Results for this AM CDT procedure are i n the results section. MICROSCOPIC AUTOMATED Routine 04/23/2022 10:54 Re sults for this AM CDT procedure are i n the results section. PH, U Routine 04/23/2022 10:54 Results for this AM CDT procedure are i n the results section. ALBUMIN, RANDOM, U Routine 04/23/2022 10:54 Chronic Kidney Res ults for this AM CDT Disease Stage 4 procedure ar e in Glomerular the results Filtration Rate section. 15 (HCC) OSMOLALITY, U Routine 04/23/2022 10:54 Results fo r this AM CDT procedure are i n the results section. URINALYSIS WITH Routine 04/23/2022 10:54 Chronic Kidney Result s for this MICROSCOPIC AM CDT Disease Stage 4 procedure ar e in Glomerular the results Filtration Rate section. (HCC) documented in this encounter Results (ABNORMAL) Dipstick, Urine (04/23/2022 10:54 AM CDT) Patholo gist Method Time Signature Hemoglobin, Negative Negative 04/23/2022 DTL QL, U 1:01 PM CDT Leukocyte Large (A) Negative 04/23/2022 DTL Esterase, U 1:01 PM CDT Nitrite, U Negative Negative 04/23/2022 DTL 1:01 PM CDT Ketone, U Negative Negative 04/23/2022 DTL mg/dL 1:01 PM CDT Glucose, U Negative Negative 04/23/2022 DTL mg/dL 1:01 PM CDT Specimen Anatomical Collection Method Collection Time Receive d Time (Source) Location / / Volume Laterality Urine 04/23/2022 10:54 04/23/2022 AM CDT 12:30 PM CDT Nena Alfonso APRN, C.N.P., D.N.P. LAB URINE O RDERABLES Performing Organization Address City/State/ZIP Code Phon e Number [facility] - [address] [place], [place] [address] [facility] [place] [address] [facility] [address] pH, Urine (04/23/2022 10:54 AM CDT) P athologist Signature pH, U 5.9 4.5 - 8.0 04/23/2022 1:26 DTL PM CDT Specimen Anatomical Collection Method Collection Time Receive d Time (Source) Location / / Volume Laterality Urine 04/23/2022 10:54 04/23/2022 AM CDT 12:30 PM CDT Nena Alfonso APRN, C.N.P., Dereck.N.P. LAB URINE O RDERABLES Performing Organization Address City/[facility] Phon e Number [facility] - [address] [place], [place] [address] [facility] [place] [address] [address] Osmolality, Urine (04/23/2022 10:54 AM CDT) P athologist Signature Osmolality, U 506 150 - 1150 04/23/2022 DTL mOsm/kg 1:26 PM CDT Specimen Anatomical Collection Method Collection Time Receive d Time (Source) Location / / Volume Laterality Urine 04/23/2022 10:54 04/23/2022 AM CDT 12:30 PM CDT Nena Alfonso APRN, C.N.P., D.N.P. LAB URINE O RDERASHAWN Performing Organization Address City/[facility] Code Phon e Number [facility] - [address] [place], [place] [address] [facility] [place] [address] (ABNORMAL) Microscopic Automated (04/23/2022 10:54 AM CDT) Analysis Performed At Patho logist Time Signature Microscopy Abnormal 04/23/2022 DTL 1:01 PM CDT RBC 3-10 (A) <3 /hpf 04/23/2022 DTL 1:01 PM CDT Dysmorphic RBC <25 <25 % 04/23/2022 DTL 1:01 PM CDT WBC >100 (A) /hpf 04/23/2022 DTL 1:01 PM CDT Comment: ----REFERENCE VALUE---- 1-3 ??(Males) 1-10 (Females) Casts, Hyaline 1-3 /lpf 04/23/2022 1:01 PM CDT DT L Specimen Anatomical Collection Method Collection Time Receive d Time (Source) Location / / Volume Laterality Urine 04/23/2022 10:54 04/23/2022 AM CDT 12:30 PM CDT Kitty Dobbs APRN.N.P., D.N.P. LAB URINE O RDKELLI Performing Organization Address City/[facility] Phon e Number [facility] - [address] [place], [place] [address] [facility] [place] [address] [address] (ABNORMAL) Albumin, Random, Urine (04/23/2022 10:54 AM CDT) P athologist Signature Albumin, 35.7 mg/L 04/23/2022 DTL Random, U 1:55 PM CDT Comment: ----ADDITIONAL INFORMATION---- This test has been modified from the man ufacturer's instructions. Its performance characteri stics were determined by [facility] in a manner co nsistent with CLIA requirements. This test has not bee n cleared or approved by the U.S. Food and Drug Admin istration. Creatinine 103 mg/dL 04/23/2022 1:25 PM CDT DTL Albumin/Creatinine Ratio 35 (H) <25 mg/g 04/23/2022 1:55 PM CDT DTL Specimen Anatomical Collection Method Collection Time Receive d Time (Source) Location / / Volume Laterality Urine (Urine, 04/23/2022 10:54 04/23/2022 Midstream) AM CDT 12:30 PM CDT Kitty Dobbs APRN.N.P., D.N.P. LAB URINE O KASH Performing Organization Address City/[facility] Code Phon e Number [facility] - [address] [place], [place] [address] [facility] [place] [address] [address] Urinalysis with Microscopic: Urine, Midstream (04/23/2022 10:54 AM CDT) Patholo gist Method Time Signature Source Urine, Urine, 04/23/2022 DTL Midstream 12:30 PM CDT Color, U Yellow 04/23/2022 DTL 12:30 PM CDT Clarity, U Clear 04/23/2022 DTL 12:30 PM CDT Protein, U 15 <26 mg/dL 04/23/2022 DTL 1:25 PM CDT Protein/Osmol 0.30 <0.42 04/23/2022 DTL ality ratio 1:26 PM CDT Predicted 24 222 mg/24 h 04/23/2022 DTL Hr Protein 1:26 PM CDT Predicted 55-898 mg/24 h 04/23/2022 DTL Range 1:26 PM CDT Specimen Anatomical Collection Method Collection Time Receive d Time (Source) Location / / Volume Laterality Urine (Urine, 04/23/2022 10:54 04/23/2022 Midstream) AM CDT 12:30 PM CDT Nena Alfonso APRN, C.N.P., D.N.P. LAB URINE O RDERABLES Performing Organization Address City/State/ZIP Code Phon e Number [facility] - [address] [place] [address] [facility] [place] [address] [facility] [address] documented in this encounter Visit Diagnoses Diagnosis Chronic Kidney Disease Stage 4 Glomerula r Filtration Rate 15-29 (HCC) documented in this encounter Additional Health Concerns Assessment Noted Time PHQ-9 Depression Total Score: 15 03/22/2021 12:16 PM C DT documented as of this encounter Care Teams Dependency Program Director Relationship Specialty Start Date End Date Elsewhere, Pcp PCP - General Internal Medicine 03/26/22 documented as of this encounter
--- OUTSIDE RECORDS SUMMARY | 2022-10-07 10:40 | XMS_ITS | Encounter Summary ---
:1935 Author Organization [facility] Address [address] [place] [address] Care Team Providers Name Role Phone Elsewhere, Pcp Primary Care Provider Unavailable Reason for Visit Outpatient (Routine) - Closed Specialty Diagnoses / Procedures Referred By Contact Refer red To Contact Rheumatology Diagnoses Pain Joint Hand Left Pain Joint Hand Right Arthritis Swelling Joint Lucía Aponte M.D. [facility] [address] [place] [phone] Referral ID Status Reason Start Date Expiration Date Visits Requ ested Visits Authorized [id number] Closed 02/19/2022 02/19/2023 1 1 Encounter Details Date Type Department Care Team Description 04/02/2022 Comprehensive Visit Division of Fredy Aponte M.D. [address] [place] [phone] Pain Joint Hand Left; Rheumatology in Lj Lindsay M.B., B.Ch., M.S. [address] [place] [phone] Pain Joint Hand Right; [place], [place] Arthritis; [address] [facility] [place] [phone] Social History Tobacco Use Types Packs/Day Years [...] or relatives? How often do you attend holiness or 1 to 4 times per year 03/2022 amish services? Do you belong to any clubs or No 02/19/2022 organizations such as holiness groups, unions, fraternal or athletic groups, or [...] place to sleep or slept in a halfway (including now)? Education Answer Date Recorded What is the highest level of school Associate degree: magaly deal, 02/19/2022 you have completed or the highest technical, or vocational p wes degree you have received? Sex Assigned at Date Recorded Female 02/19/2022 7:48 AM CDT documented as of this encounter Consult Notes Lj Lindsay M.B., B.Ch., M.S. - 04/02/2022 9:30 AM CDT SUBJECTIVE CHIEF COMPLAINT / REASON FOR CONSULT Vielka Yap is a 86 y.o. female who was referred by Lucía Aponte M.D. for evaluation of gout. Past medical history include hypertension, obesity, thyroid disease, chronic kidney disease HISTORY OF PRESENT ILLNESS She was evaluated by Dr. Aponte in physical therapy for ongoing hand pain. Her pain is mostly located in the DIP joints, this has been ongoing for the past few years. She had tried tylenol with some improvement, she tried topical voltaren and it helped. She is currently off tylenol and topical Voltaren for few days and has been tolerating pain thus far She has history of gout clinically diagnosed in 2020 based on blood test, She did not have joint aspiration, she did not have a gout episode, her most recent uric acid level in December 2021 was 7.1 previously was 10.9 in March 2021. She has been on allopurinol 50 every other day. She has been tolerating allopurinol thus far. She never experienced psoriasis and no family history of psoriasis, no history of dactylitis, no history of inflammatory eye disease, no history of IBD. She has history of kidney stone, no family history of gout. Out of concern for gout as a possible causative agent for her hand symptoms, dual energy CT was obtained in March 2022, it was not felt that gout was the causative agent for her symptoms and it was favored to be secondary to erosive osteoarthritis. 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 Her labs in March 2022 showed rheumatoid factor/CCP negative, C-reactive protein less than 3. She has chronic lower extremity swelling in for many years and she has been using diuretics, Her Legedema has been attributed to vascular insufficiency, she has been using compression stockings for many years. she is following with her primary care provider and Nephrology for chronic kidney disease. She has never smoked, She drink wine maybe once a month. No family history of autoimmune disease REVIEW OF SYSTEMS Pertinent positives and negatives as documented in the above history of present illness. OBJECTIVE PHYSICAL EXAM HENT Mouth/Throat: Mouth: Mucous membranes are moist. Eyes Conjunctiva/sclera: Conjunctivae normal. Cardiovascular Rate and Rhythm: Normal rate and regular rhythm. Pulses: Normal pulses. Heart sounds: Normal heart sounds. Pulmonary Effort: Pulmonary effort is normal. Breath sounds: Normal breath sounds. Abdominal General: Abdomen is flat. Musculoskeletal General: Tenderness present. Right lower leg: Edema present. Left lower leg: Edema present. Comments: Tenderness over the DIP joints mainly second and third Neurological Mental Status: She is alert. Lab: Lab Results Component Value Date/Time URICACID 7.1 (H) 01/01/2022 11:03 AM URICACID 8.9 (H) 05/11/2021 11:24 AM URICACID 10.9 (H) 03/22/2021 04:02 PM Lab Results Component Value Date/Time CREATININE 1.42 (H) 01/01/2022 11:03 AM CREATININE 1.41 (H) 09/17/2021 08:47 AM CREATININE 1.37 (H) 05/11/2021 11:24 AM CREATININE 0.99 11/30/2019 06:54 AM CREATININE 1.30 (H) 11/29/2019 08:13 AM Lab Results Component Value Date/Time HGB 11.9 01/01/2022 11:03 AM HGB 12.5 09/17/2021 08:47 AM HGB 12.6 03/07/2021 08:12 AM HGB 8.9 (L) 12/01/2019 06:54 AM HGB 10.4 (L) 11/30/2019 06:54 AM MCV 92.4 01/01/2022 11:03 AM MCV 93.6 09/17/2021 08:47 AM MCV 92.5 03/07/2021 08:12 AM WBC 5.5 01/01/2022 11:03 AM WBC 5.8 09/17/2021 08:47 AM WBC 5.9 03/07/2021 08:12 AM PLT 183 01/01/2022 11:03 AM PLT 210 09/17/2021 08:47 AM PLT 198 03/07/2021 08:12 AM PLT 230 11/29/2019 07:25 PM Lab Results Component Value Date ALT 23 03/22/2021 AST 26 03/22/2021 ALKPHOS 67 03/22/2021 BILITOT 0.3 03/22/2021 Lab Results Component Value Date/Time MG 2.4 (H) 03/22/2021 04:02 PM PTH 55 01/01/2022 11:03 AM PTH 75 (H) 03/22/2021 04:02 PM Imaging: as above ASSESSMENT / PLAN #1 Degenerative arthritis #2 Clinical gout with history of hyperuricemia currently on allopurinol #3 Hypertension, obesity, chronic kidney disease, chronic lower extremity edema Mrs. Vielka Yap is a very pleasant 86 y.o. female coming today for evaluation of gout. She has clinically diagnosed gout based on hyperuricemia that peaked at 10.9 in March 2021 which seemed to haveresponded to 50 mg of allopurinol every other day and her most recent uric acid is 7.1. She has histo ry of kidney stones, she has erosive changes in her DI P which could be seen in gout as well as erosive osteoarthritis as suggested by our radiology colleagues. Her joint pains are mostly degenerative in nature, there is no PIP and MCP or wrist involvement to suggest other inflammatory arthritidies, similarly her inflammatory markers as well as rheumatoid factor and CCP were negative. We discussed that her presentation is likely secondary to degenerative changes however gout cannot be ruled out and given her chronic comorbidities specially with obesity, chronic kidney disease, current diuretic therapy then she is at risk of developing gout and worsening joint symptoms then allopurinol can be resumed and further optimized. Increasing allopurinol dose can be considered by her primary care provider to 50 mg daily with close monitoring of her kidney functions, she can continue hand therapy as well as joint preservation techniques.This plan was discussed with Sharon Marely and She is in agreement with this plan Patient was seen and discussed with Monique Vega., B.Ch., M.S. PGY-5 Rheumatology Fellow Associated attestation - Jose Ramon Zepeda M.D. - 04/05/2022 8:59 AM CDT I reviewed the history physical exam and treatment plan of Dr. Lindsay. I have examined the patient. I am in agreement with his findings and plan. This patient has degenerative arthritis and a gout.Patient is currently on allopurinol. documented in this encounter Plan of Treatment Not on filedocumented as of this encounter Visit Diagnoses Diagnosis Pain Joint Hand Left Pain Joint Hand Right Arthritis Swelling Joint documented in this encounter Additional Health Concerns Assessment Noted Time PHQ-9 Depression Total Score: 15 03/22/2021 12:16 PM C DT documented as of this encounter Care Teams Director Industrial Relations Relationship Specialty Start Date End Date Elsewhere, Pcp PCP - General Internal Medicine 03/26/22 documented as of this encounter
--- OUTSIDE RECORDS SUMMARY | 2022-10-07 10:40 | XMS_ITS | Encounter Summary ---
:1935 Author Organization [facility] Address [address] [place] [address] Care Team Providers Name Role Phone Elsewhere, Pcp Primary Care Provider Unavailable Encounter Details Date Type Department Care Team Description 04/19/2022 Clinical Communication Visit Review in [place], [place] [address] [place] [address] Social History Tobacco Use Types Packs/Day Years [...] place to sleep or slept in a custodial (including now)? Education Answer Date Recorded What is the highest level of school Associate degree: magaly deal, 02/19/2022 you have completed or the highest technical, or vocational p wes degree you have received? Sex Assigned at Date Recorded Female 02/19/2022 7:48 AM CDT documented as of this encounter Plan of Treatment Not on filedocumented as of this encounter Visit Diagnoses Not on filedocumented in this encounter Additional Health Concerns Assessment Noted Time PHQ-9 Depression Total Score: 15 03/22/2021 12:16 PM C DT documented as of this encounter Care Teams Manager Commodities Relationship Specialty Start Date End Date Elsewhere, Pcp PCP - General Internal Medicine 03/26/22 documented as of this encounter
--- OUTSIDE RECORDS SUMMARY | 2022-10-07 10:40 | XMS_ITS | Encounter Summary ---
:1935 Author Organization [facility] Address [address] [place] [address] Care Team Providers Name Role Phone Elsewhere, Pcp Primary Care Provider Unavailable Reason for Visit Outpatient (Routine) - Closed Specialty Diagnoses / Procedures Referred By Contact Refer red To Contact Diagnoses Pain Joint Hand Left Pain Joint Hand Right Arthritis Swelling Joint Osteophyte Right Hand Lucía Aponte M.D. [facility] Procedures ORS US-Guided aspiration/injection [address] [place] [address] Referral ID Status Reason Start Date Expiration Date Visits Requ ested Visits Authorized [id number] Closed 02/19/2022 02/19/2023 1 1 Encounter Details Date Type Department Care Team Description 04/24/2022 Procedure visit Department of Lucía Aponte Pain Join t Hand Left; Orthopedic Surgery in [place] Pain Joint Hand Right; [place], [place] [address] [facility] Arthritis; [address] [place], [place] Swelling Joint; [place] [address] Osteophyte Right Hand [phone] Social History Tobacco Use Types Packs/Day Years [...] or relatives? How often do you attend christian or 1 to 4 times per year 03/2022 episcopalian services? Do you belong to any clubs or No 02/19/2022 organizations such as christian groups, unions, fraternal or athletic groups, or [...] place to sleep or slept in a detention (including now)? Education Answer Date Recorded What is the highest level of school Associate degree: magaly deal, 02/19/2022 you have completed or the highest technical, or vocational p suryram degree you have received? Sex Assigned at Date Recorded Female 02/19/2022 7:48 AM CDT documented as of this encounter Procedure Notes Lucía Aponte M.D. - 04/24/2022 2:00 PM CDTAssociated Order(s): ORS US-Guided aspiration/injection Pre-Procedure Diagnose(s): Pain Joint Hand Left; Pain Joint Hand Right; Arthritis; Swelling Joint; Osteophyte Right Hand Post-Procedure Diagnose(s): Pain Joint Hand Left; Pain Joint Hand Right; Arthritis; Swelling Joint; Osteophyte Right Hand right middle finger DIP joint : injection only Date/Time: 04/24/2022 2:07 PM Performed by: Lucía Aponte M.D. Authorized by: Lucía Aponte M.D. Care team members present 1. Lucía Aponte M.D. 2. Eli Crain PROCEDURE DETAILS Procedure Location Other site: right middle finger DIP joint Site prep: patient was prepped and draped in usual sterile fashion Patient position: seated Procedural approach: posterior Procedure performed: injection only Needle gauge: 25 G, length: 5/8 in Ultrasound image guidance used to localize target, identify at risk structures, and dynamically usedto direct therapy to the target. Image(s) acquired and saved. Site was marked using indelible marker Probe: linear small footprint high-frequency Needle approach: posterior to anterior Ultrasound visualization: [id number] Procedural Medication The following medications were administered at the target site(s) Local anesthetic: 0.5 mL lidocaine 10 mg/mL (1 %) Corticosteroid: 3 mg betamethasone acetate & sodium phosphate 6 mg/mL CONSENT Consent obtained: written UNIVERSAL PROTOCOL All relevant documentation and testing were reviewed and available. All required blood products, implants, devices and or special equipment were made available as applicable. Pre-procedure verificationwas conducted and the correct site was marked if required. A fire risk assessment was done as applicable. The procedural time-out to verify correct patient, correct side/site, and procedure was conducted prior to performing the procedure and confirmed in a procedural pause. PRE-PROCEDURE DETAILS Procedure purpose: therapeutic Appropriate hand hygiene, gown, cap, mask, protective eyewear, sterile gloves, skin preparation, sterile drape, and strict aseptic technique were utilized as applicable for the procedure. Site preparation: chlorhexidine SEDATION / ANESTHESIA Anesthesia method: local infiltration Local infiltrate type: see MAR for dose, lidocaine POST-PROCEDURE DETAILS Procedure completed successfully: yes Complications: no apparent complications Post-procedure instructions: avoid strenuous activity for 2 days, avoid submersion of procedure sitefor 48 hours and post-procedure activity instructions provided Discharge instructions: pain management instructions, ice area as needed for comfort, medications and side effects and follow-up with ordering provider Comments Pre injection ultrasound scan demonstrated at the right middle finger D IP joint periarticular soft tissue swelling with mild hyperemia on Doppler ultrasound, suspect of likely ongoing gouty inflammatory process. A syringe containing 0.5 cc of lidocaine 1% and 0.5 cc of betamethasone 6 milligrams/cc was used for the injection. A little under half of the total mixture was injected in to target location with excellent flow visualized deep into the joint. Successful injection without any complications. Follow-up with me as needed. documented in this encounter Plan of Treatment Not on filedocumented as of this encounter Procedures Procedure Name Priority Date/Time Associated Diagnosis Comme nts ORS US-GUIDED Routine 04/24/2022 2:07 PM Pain Joint Cho nd Left Results for this ASPIRATION/INJECTIO CDT Pain Joint Hand proce dure are in N Right the results Arthritis section. Swelling Joint Osteophyte Right Hand documented in this encounter Results ORS US-Guided aspiration/injection (04/24/2022 2:07 PM CDT) Specimen (Source) Anatomical Location Collection Method / Collectio n Time Received Time / Laterality Volume Narrative MMODAL - 04/24/2022 2:07 PM CDT Lucía Aponte M.D. ? 04/24/2022 ??2:10 PM right middle finger DIP joint : injectio n only Date/Time: 04/24/2022 2:07 PM Performed by: Lucía Aponte M.D. Authorized by: Lucía Aponte M.D. Care team members present 1. Lucía Aponte M.D. 2. Eli Crain PROCEDURE DETAILS Procedure Location Other site: right middle finger DIP join t Site prep: patient was prepped and drape d in usual sterile fashion ?? Patient position: seated Procedural approach: posterior Procedure performed: injection only Needle gauge: 25 G, length: 5/8 in Ultrasound image guidance used to locali ze target, identify at risk structures, and dynamically used to dire ct therapy to the target. Image(s) acquired and saved. Site was marked using indelible marker Probe: linear small footprint high-frequ ency Needle approach: posterior to anterior Ultrasound visualization: [id number] Procedural Medication The following medications were administe red at the target site(s) Local anesthetic: 0.5 mL lidocaine 10 mg /mL (1 %) Corticosteroid: 3 mg betamethasone aceta te & sodium phosphate 6 mg/mL CONSENT Consent obtained: written UNIVERSAL PROTOCOL All relevant documentation and testing w ere reviewed and available. All required blood products, implants, devic es and or special equipment were made available as applicable. Pre-proced ure verification was conducted and the correct site was marked if required. A fire risk assessment was done as applicable. The procedural time-out t o verify correct patient, correct side/site, and procedure was conducted p rior to performing the procedure and confirmed in a procedural pause. PRE-PROCEDURE DETAILS Procedure purpose: therapeutic Appropriate hand hygiene, gown, cap, mas k, protective eyewear, sterile gloves, skin preparation, sterile drape, and strict aseptic technique were utilized as applicable for the procedure . Site preparation: chlorhexidine SEDATION / ANESTHESIA Anesthesia method: local infiltration Local infiltrate type: see MAR for dose, lidocaine POST-PROCEDURE DETAILS Procedure completed successfully: yes Complications: no apparent complications ?? Post-procedure instructions: avoid stren uous activity for 2 days, avoid submersion of procedure site for 48 hour s and post-procedure activity instructions provided Discharge instructions: pain management instructions, ice area as needed for comfort, medications and side effect s and follow-up with ordering provider Comments Pre injection ultrasound scan demonstrat ed at the right middle finger D IP joint periarticular soft tissue swelling with mild hyperemia on Doppler ultrasound, suspect of likely ongoing go uty inflammatory process. ??A syringe containing 0.5 cc of lidocaine 1 % and 0.5 cc of betamethasone 6 milligrams/cc was used for the injection . ??A little under half of the total mixture was injected in to target location with excellent flow visualized deep into the joint. ??Succes sful injection without any complications. ?? Follow-up with me as needed. Lucía Aponte M.D. PROCEDURE/MINOR SURGICAL ORD ERABLES Performing Organization Address City/State/ZIP Code Phon e Number MMODAL MMODAL NA documented in this encounter Visit Diagnoses Diagnosis Pain Joint Hand Left Pain Joint Hand Right Arthritis Swelling Joint Osteophyte Right Hand documented in this encounter Administered Medications Inactive Administered Medications - up to 3 most recent administrations Medication Order MAR Action Action Date Dose Rate Site betamethasone acetate & sodium Given 04/24/2022 2:07 PM CDT 3 mg phosphate injection 3 mg (CELESTONE SOLUSPAN) 3 mg, intra-articular, One-Time Injection, Starting on Fri04/24/22 at 1407, For 1 dose lidocaine 10 mg/mL (1 %) injection 0.5 mL Given 04/24/2022 2:07 PM CDT 0.5 mL (XYLOCAINE) 0.5 mL, infiltration, One-Time Injection, Starting on Fri04/24/22 at 1407, For 1 dose documented in this encounter Additional Health Concerns Assessment Noted Time PHQ-9 Depression Total Score: 15 03/22/2021 12:16 PM C DT documented as of this encounter Care Teams Dressmaker Garment Fitter Relationship Specialty Start Date End Date Elsewhere, Pcp PCP - General Internal Medicine 03/26/22 documented as of this encounter
--- OUTSIDE RECORDS SUMMARY | 2022-10-07 10:40 | XMS_ITS | Encounter Summary ---
:1935 Author Organization [facility] Address [address] [place] [address] Care Team Providers Name Role Phone Elsewhere, Pcp Primary Care Provider Unavailable Encounter Details Date Type Department Care Team Description 04/04/2022 Orders Only Division of Endocrinology in [place], [place] Leatha Boateng M.D. [address] [facility] [address] [place] [address] [place], [place] [phone] (Wo rk) Social History Tobacco Use Types [...] or relatives? How often do you attend spiritism or 1 to 4 times per year 03/2022 jehovah's witness services? Do you belong to any clubs or No 02/19/2022 organizations such as spiritism groups, unions, fraternal or athletic groups, or [...] place to sleep or slept in a alf (including now)? Education Answer Date Recorded What [...] documented as of this encounter Care Teams Chemical Recovery Operator Relationship Specialty Start Date End Date Elsewhere, Pcp PCP - General Internal Medicine 03/26/22 documented as of this encounter
--- OUTSIDE RECORDS SUMMARY | 2022-10-07 10:40 | XMS_ITS | Encounter Summary ---
:1935 Author Organization [facility] Address [address] [place] [address] Care Team Providers Name Role Phone Elsewhere, Pcp Primary Care Provider Unavailable Reason for Visit Reason Comments Chronic Kidney Disease Outpatient (Routine) - Closed Specialty Diagnoses / Referred By Contact Referred To Contact Procedures Nephrology and Nena Alfonso alex Hypertension RYANN Corley C.N.P., D.N.P. [address] [place] [address] Referral ID Status Reason Start Date Expiration Date Visits Requ ested Visits Authorized [id number] Closed 01/01/2022 01/01/2023 1 1 Encounter Details Date Type Department Care Team Description 04/23/2022 Office Visit Division of Nephrology Damion Alfonso and Hypertension in Nena Corley APRN, Ki dney Disease (CKD) [place], [place] C.N.P., D.N.P. Stage 3b Glomerular [address] Filtration Rate (GFR) [place], [place] 30 To 44 ([place]) [phone] Social History Tobacco Use Types Packs/Day Years [...] or relatives? How often do you attend samaritan or 1 to 4 times per year 03/2022 jehovah's witness services? Do you belong to any clubs or No 02/19/2022 organizations such as samaritan groups, unions, fraternal or athletic groups, or [...] Sign Reading Time Taken Comments Blood Pressure 136/71 04/23/2022 1:55 PM CDT Pulse 73 04/23/2022 1:55 PM CDT Temperature 36.4 ??C (97.5 ??F) 04/23/2022 1:55 PM CDT Respiratory Rate - - Oxygen Saturation - - Inhaled Oxygen Concentration - - Weight 121 kg (266 lb 3.3 oz) 04/23/2022 1:55 PM CDT sh oes Height 163.9 cm (5' 4.53) 04/23/2022 1:55 PM CDT shoes Body Mass Index 44.95 04/23/2022 1:55 PM CDT documented in this encounter Patient Instructions Patient InstructionsAngie Neely I. RCheikh - 04/23/2022 2:05 PM CDT Take Lasix (furosemide) 20 mg tablet every day as prescribed. Increase allopurinol from one-half 100 mg allopurinol tablet daily (total daily dose of 50 mg) to one 100 mg allopurinol tablet daily for a total daily dose of 100 mg. This prescription was sent to [facility]. Check your blood pressure at home every day and write down your blood pressure readings. Make an appointment to see a guest relations manager. Please remember to avoid taking NSAIDS (such as ibuprofen, naproxen, ketorolac, indomethacin, nabumetone) as these medications may affect your kidney function. Should you receive medications from a doctor, please remind them of your kidney disease and ask thatthey check the appropriate dose for you. Your medications should be dosed for an eGFR of 30 mL/min/1.73 m2. Please remember that contrast dye [...] Contact the [facility] at [phone] if you have concerns regarding your kidneyor high blood pressure care. Please use our fax number [phone] if you are requested by your kidney health care provider to fax in any test results. Please work with your primary care provider to ensure your up to date on all your immunizations. documented in this encounter Progress Notes Nena Alfonso APRN, FredNSharonP., NicaP. - 04/23/2022 2:30 PM CDT SUBJECTIVE CHIEF COMPLAINT / REASON FOR VISIT Follow up CKD. HISTORY OF PRESENT ILLNESS Ms. Yap is a 86 y.o. female who presents for ongoing evaluation of chronic kidney disease. She was last seen in CKD clinic 01/01/2022. She has a longstanding history of hypertension diagnosed more than 10 years ago.?She does not have history of diabetes.?She has chronic use of NSAIDs,??she used to take Aleve for many years and stopped taking it 2.5 years ago,??however she switched??to Celebrex 200 mg twice a day that she had been taking for the last 1.5??years. She has chronic lower extremity edema that is related to venous stasis,??and she follows in the lymphedema Clinic for that.?? She continues with wraps and compression stockings. She feels the swelling is worse of the right leg. She feels her urine output is within normal, and the appearance of the urine is also normal. She was recently in the [place] [facility] and had a small water blister drained on her rightlower extremity. She denies any concerns with infections, but does state her feet are need to podiatry as her toenails need to be trimmed. Additionally, she reports near tripping on carpet as her toenails are catching on the fibers. She was hesitant to go to a guest relations manager as it was expensive. She was encouraged to do this, and will be arranging this locally in the near future. 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 She uses a walker around the house, as she feels her balance is tenuous at times. She inquires about allopurinol, and has been taking 50 mg every other day. Her local physician was hesitant to increase this dose. She has pain and swelling in her right hand. We reviewed that her rheumatoid factor was negative, uric acid 8.5, slightly increased from previously. I agreed to initiate allopurinol 100 mg daily. REVIEW OF SYSTEMS OBJECTIVE Vitals: 04/23/22 1355 BP: 136/71 BP Location: Left arm Patient Position: Sitting Cuff Size: Large Pulse: 73 Temp: 36.4 ??C TempSrc: Tympanic PHYSICAL EXAMINATION Constitutional Appearance: Normal appearance. Cardiovascular Rate and Rhythm: Normal rate and regular rhythm. Heart sounds: Normal heart sounds, S1 normal and S2 normal. Comments: No concerns for cellulitis appreciated, skin intact. She is not wearing support hose, andwas encouraged to do so. Musculoskeletal Right lower le+ Pitting Edema present. Left lower le+ Pitting Edema present. Neurological Mental Status: She is alert. Psychiatric Mood and Affect: Mood normal. Behavior: Behavior normal. ASSESSMENT / PLAN #1 Chronic kidney disease (CKD) stage 4, secondary to NSAID use, and atrophic left kidney Creatinine 1.56 mg/dL. GFR is 30 mL/min. BUN is 45 mg/dL. She does not display signs of uremia today. Signs and symptoms of uremia reviewed today. 04/19/2022 she was prescribed Farxiga. She has not started this medication yet. We discussed that her blood work may reflect some changes in her creatinine, and her tower hoist operator will be watching this closely. #2 CKD treatment options Kidney Transplant:Not transplant candidate due to: age #3 Hypertension She takes Prinzide 20-12.5 mg daily. In December initiated Lasix 20 mg daily. #4 Anemia Screening Hemoglobin excellent at 11.5. No changes recommended. She does not require YULIANA therapy. #5 Hyperparathyroidism screening Calcium: at goal 9.6 Phosphorus: at goal 3.1 Phosphate Binder: Not needed Parathyroid Hormone: at goal 103. I do note this has doubled since previously. PTH increases again next visit, will likely initiate therapy. Vitamin D Therapy: Previously took calcium supplements, is no longer taking these. #6 Metabolic acidosis screening Bicarbonate: at goal 27 Bicarbonate Therapy: Not needed Follow-up: [facility], 6 months documented in this encounter Plan of Treatment Not on filedocumented as of this encounter Visit Diagnoses Diagnosis Hypertensive Chronic Kidney Disease (CKD ) Stage 3b Glomerular Filtration Rate (GFR) 30 To 44 (HCC) - Primary documented in this encounter Additional Health Concerns Assessment Noted Time PHQ-9 Depression Total Score: 15 03/22/2021 12:16 PM C DT documented as of this encounter Care Teams Electrolog Operator Relationship Specialty Start Date End Date Elsewhere, Pcp PCP - General Internal Medicine 03/26/22 documented as of this encounter
--- OUTSIDE RECORDS SUMMARY | 2022-10-07 10:40 | XMS_ITS | Encounter Summary ---
:1935 Author Organization [facility] Address [address] [place] [address] Care Team Providers Name Role Phone Elsewhere, Pcp Primary Care Provider Unavailable Reason for Visit Reason Comments Patient Education Encounter Details Date Type Department Care Team Description 04/23/2022 Education Department of Patient Nena Alfonso APRN, C.N.P., D.N.P. [address] [place] [phone] Chronic Kidney Disease Education in Heather Asencio M.S. [address] [place] [phone] Stage 4 Glomerular [place], [place] Filtration Rate 15-29 [address] [facility] [place] [phone] Social History Tobacco Use Types Packs/Day Years [...] or relatives? How often do you attend presybeterian or 1 to 4 times per year 03/2022 druze services? Do you belong to any clubs or No 02/19/2022 organizations such as presybeterian groups, unions, fraternal or athletic groups, or [...] place to sleep or slept in a group home (including now)? Education Answer Date Recorded What [...] documented as of this encounter Care Teams Dust Operator Relationship Specialty Start Date End Date Elsewhere, Pcp PCP - General Internal Medicine 03/26/22 documented as of this encounter
--- OUTSIDE RECORDS SUMMARY | 2022-10-07 10:40 | XMS_ITS | Encounter Summary ---
:1935 Author Organization [facility] Address [address] [place] [address] Care Team Providers Name Role Phone Elsewhere, Pcp Primary Care Provider Unavailable Encounter Details Date Type Department Care Team Description 03/28/2022 Lab RST RO Leatha Trivedi Cold Intolerance [address] [facility] [place] [address] [address] [place] [phone] (Wo rk) Social History Tobacco Use Types [...] 1 to 4 times per year 03/2022 sikh services? Do you belong to any clubs [...] place to sleep or slept in a nursing home (including now)? Education Answer Date Recorded What is the highest level of school Associate degree: magaly deal, 02/19/2022 you have completed or the highest technical, or vocational inés harvey degree you have received? Sex Assigned at Date Recorded Female 02/19/2022 7:48 AM CDT documented as of this encounter Miscellaneous Notes Result Encounter Note - Leatha Romero M.D. - 03/28/2022 3:27 PM CDT I reviewed the results of the testing completed. At present there are no abnormalities that warrant additional evaluation. Her thyroid tests were normal. documented in this encounter Plan of Treatment Not on filedocumented as of this encounter Procedures Procedure Name Priority Date/Time Associated Diagnosis Comme nts THYROID-STIMULATING Routine 03/28/2022 9:46 AM Cold Intoleranc e Results for this HORMONE-SENSITIVE CDT procedure are in (S-TSH) the results section. documented in this encounter Results S-TSH (Thyroid-Stimulating Hormone - Sensitive) (03/28/2022 9:46 AM CDT) P athologist Signature TSH, Sensitive 4.1 0.3 - 4.2 03/28/2022 DTL mIU/L 2:19 PM CDT Specimen Anatomical Collection Method Collection Time Receive d Time (Source) Location / / Volume Laterality Blood (Blood, 03/28/2022 9:46 AM 03/28/20 22 Venous) CDT 12:29 PM CDT Leatha Romero M.D. LAB BLOOD ADD-ON Performing Organization Address City/State/ZIP Code Phon e Number [facility] [address] [place], [place] [address] [facility] [place] [address] [facility] [address] documented in this encounter Visit Diagnoses Diagnosis Cold Intolerance documented in this encounter Additional Health Concerns Assessment Noted Time PHQ-9 Depression Total Score: 15 03/22/2021 12:16 PM C DT documented as of this encounter Care Teams Plant Protection Guard Relationship Specialty Start Date End Date Elsewhere, Pcp PCP - General Internal Medicine 03/26/22 documented as of this encounter
--- OUTSIDE RECORDS SUMMARY | 2022-10-07 10:40 | XMS_ITS | Encounter Summary ---
:1935 Author Organization [facility] Address [address] [place] [address] Care Team Providers Name Role Phone Elsewhere, Pcp Primary Care Provider Unavailable Encounter Details Date Type Department Care Team Description 04/08/2022 Orders Only [facility] - Julio Calvo [address] [facility] [place] [phone] Social History Tobacco Use Types Packs/Day Years [...] 1 to 4 times per year 03/2022 adventism services? Do you belong to any clubs [...] documented as of this encounter Care Teams Boring Mill Set Up Operator Vertical Relationship Specialty Start Date End Date Elsewhere, Pcp PCP - General Internal Medicine 03/26/22 documented as of this encounter
--- OUTSIDE RECORDS SUMMARY | 2022-10-07 10:40 | XMS_ITS | Encounter Summary ---
:1935 Author Organization [facility] Address [address] [place] [address] Care Team Providers Name Role Phone Elsewhere, Pcp Primary Care Provider Unavailable Reason for Visit Physical Therapy (Routine) - Authorized Specialty Diagnoses / Procedures Referred By Contact Refer red To Contact Diagnoses Lymphedema Juanito Rodriguez M.D. [facility] Procedures PT or OT eval and treat (first available) [address] [place] [phone] Referral ID Status Reason Start Date Expiration Date Visits V isits Requested Authorized [id number] Authorized 05/15/2022 05/15/2023 99 99 Encounter Details Date Type Department Care Team Description 05/23/2022 Comprehensive Visit Department of Physical Juanito Cooper M.D. [address] [place] [phone] Lymphedema Medicine and Mirian Plaza P.T., D.P.T., ABPTS-ONC [address] [place] [phone] Rehabilitation in [place], [place] [address] [place] [phone] Social History Tobacco Use Types Packs/Day Years [...] or relatives? How often do you attend mandaeism or 1 to 4 times per year 03/2022 catholic services? Do you belong to any clubs or No 02/19/2022 organizations such as mandaeism groups, unions, [employer] or athletic groups, or school groups? How [...] place to sleep or slept in a long term (including now)? Education Answer Date Recorded What is the highest level of school Associate degree: magaly deal, 02/19/2022 you have completed or the highest technical, or vocational p [facility] degree you have received? Sex Assigned at Date Recorded Female 02/19/2022 7:48 AM CDT documented as of this encounter Consult Notes Mirian Plaza, P.T., D.P.T., ABPTS-ONC - 05/23/2022 3:00 PM CDT Physical Therapy Lymphedema Outpatient Evaluation and Treatment By co-signing this note, the provider certifies the therapy being provided to this patient is reasonable and necessary for the diagnosis or treatment of this patient. Patient's Name: Vielka Yap Referring Provider: Juanito Rodriguez M.D. Rehab Diagnosis: 1. Lymphedema Reason for Referral: Physical therapy evaluation and treat, bilateral lower extremity swelling History of Present Illness: Patient is a 86-year-old female presenting with ongoing bilateral lower extremity edema distal to the knees. She has been treated in this clinic previously, well known to brief writer. She developed a blister on her right lower leg and presented to her local ED April 22, where she states they pop the blister, did not provide wound care, bandages, antibiotics. She is taking the recommendations regarding the new blistering, leaking, ongoing/worsening edema. Onset Date: 05/23/22 Payor: MEDICARE / Plan: MEDICARE A AND B / Product Type: Medicare / Total Visit Count: 1 SUBJECTIVE Vielka Yap is a 86 y.o. female who presents to therapy for evaluation and treatment forlower extremity swelling. Her symptoms consist of chronic though acute worsening of swelling in lower extremities distal to knee with no onset weeping of right. Activity and Prior Treatment Exercise/Activity Level: states she does ankle pumps, long-arc quads, marching, hip abduction exercises throughout the daytime Current Home Program: able to stand up to 1 hour at a time as she is cooking more recently, no current compression due to leaking, elevates lower extremity throughout day as able Previous Treatment: seenin this clinic Patient Comments: patient has not been wearing any compression for 1 month, she tried donning her compression socks over a bandaid, though her socks became saturated. PT Next Certification Date: 08/21/22 PERTINENT MEDICAL / SURGICAL HISTORY: Patient Active Problem List Diagnosis ??? Edema Leg ??? Hypertensive Chronic Kidney Disease (CKD) Stage 3b Glomerular Filtration Rate (GFR) 30 To 44 ??? Thrombosis Deep Vein Personal History ??? Dyspnea On Exertion ??? Morbid Obesity Body Mass Index 40.0-44.9 Adult (HCC) ??? Obstructive Sleep Apnea Adult ??? History Of Falling ??? Incontinence Urinary ??? Hyperlipidemia On Treatment ??? Hypertension Personal History ??? Chronic Kidney Disease Stage 4 Glomerular Filtration Rate 15-29 (HCC) ??? Other Specified Heart Block ??? Incompetence Chronotropic ??? Lesion Skin ??? Cold Intolerance Past Surgical History: Procedure Laterality Date ??? SECTION 2 ??? DILATATION AND CURETTAGE 7 ??? OTHER CONVERTED SHX (SEE COMMENT) N/A 10/11/2008 >Excision With Layered Closure. ??? OTHER CONVERTED SHX (SEE COMMENT) N/A 10/28/2008 >1. Exploration right peroneal nerve. 2. Decompression at fibular neck. ??? TONSILLECTOMY OBJECTIVE PHYSICAL EXAM Fall Risk Screening: Fall in the last 12 months: Yes Fall Risk Comments: 1 fall in the last 6 months since last session with brief writer Lymphedema/Edema Eval: Range of motion: Adequate range of motion of bilateral lower extremity Sensation: Intact lower extremities Edema: +2 Pitting Edema Location: right>left lower legs distal to knee Observations: Unable to visualize malleoli bilaterally 2 blister lesions of the right lower leg more laterally, open skin and popped with weeping Functional Mobility: Travels to department via wheelchair, does not transfer out of wheelchair Right Lower Extremity 05/23/2022 10 cm 26.1 20 cm 29.7 30 cm 40.8 40 cm 45 50 cm 41.2 60 cm 70 cm 80 cm 90 cm Lymph Volume (L) 4562.08 ml Left Lower Extremity 05/23/2022 10 cm 24.5 20 cm 29.3 30 cm 37.6 40 cm 39.1 50 cm 39.4 60 cm 70 cm 80 cm 90 cm Lymph Volume (L) 3868.69 ml TREATMENT Therapeutic activity: Wound recommendations provided by sharath of wound therapist, Mary Alice GOEL Therapist washed bilateral lower legs distal to knee with water, dabbed to dry with towel. Therapistinstructed patient and performed wound recommendations provided by wound therapist. Xeroform was cutto size, and place on areas of open skin and blistering of the right lower leg. Next ABD pad placed over area of leaking. Rosidal soft foam donned toes to knee of the right lower leg. Finally, velcro device placed on the right lower leg as patient does not anticipate will be able to complete the multilayered short stretch bandaging due to his physical deconditioning. We did discuss that she may not need to Don the rosidal soft foam in the future, this would be pending the amount of leaking/dr nagel : ie there is copious amounts of fluid leaking recommend rosidal soft foam, if there is not significant amount of draining she would not need this foam. Patient was instructed to rinse lower legs daily, apply new xeroform and ABD padding daily as well. Pending degree and amount of leakage/weeping, patient may need to replace ABD padding multiple times daily. Should she require more ABD padding, she could utilize maxi pads instead. Patient was able to Don the left knee-high compression sock with her sock aid during session. Home Exercise Program/Education: Rinse lower legs with water, dab to dry with a towel (do not rub as this causes too much friction and irritation) Put on the yellow xerform gauze over any areas of open skin. Cut this gauze to size. Put on white ABD padding to absorb the drainage. This should be changed daily, though if you are leaking lots of fluid you may need to change it a few times a day Put on Velcro device on the right lower leg and compression sock on the left lower leg. If you get red, hot, fever you need to call your doctor Contact monitoring: PPE used during therapy: Therapist was wearing the following PPE throughout entire session: surgicalmask Patient was wearing a mask during therapy session: yes Assessment Vielka is a pleasant 86 year old female presenting for ongoing multifactorial bilateral lower leg edema, with new recent blistering of the right lower leg resulting in weeping. Wound therapy curbsided:will apply xeroform and ABD to area of concern, followed by rosidol soft foam and velcro device on the right. To continue with left lower leg compression garment in the meantime. She will continue thisregimen, with goal of healing open skin. She was instructed to contact therapist in 1 month if she experiences ongoing weeping and blistering. Rehab Potential: Ms. Yap has good potential to achieve established physical therapy therapy goals within the time frame outlined below, provided she actively participates in her physical therapy therapy treatment plan and home program. Complicating Factors: Comorbid Conditions: Cardiopulmonary disease, Obesity, Renal disease Personal Factors: Body habitus, History of falls, Sedentary lifestyle Number of Examination Elements (PT): 4+ Clinical Presentation (PT): Evolving Clinical Decision Making (PT): Moderate Functional Goals and Timeframes: Goal #1: Patient will be independent with this effective lymphedema management plan. Goal #1 Date: 08/21/22 The severity of Ms. Yap's functional limitation will be re-assessed within the next 1 visits. Plan Ms. Yap was educated regarding evaluative findings, diagnosis, prognosis, potential risks and benefits of rehabilitation interventions. A collaborative effort was used to establish goals and plan of care. She was informed of her right to make decisions regarding her care, including refusal of examination or treatment or selection of therapy services from another provider if desired. The treatment plan may be progressed or modified based upon her response to treatment. Treatment Plan: Start of Plan of Care: 05/23/2022 Number of Visits: up to 5 visits Frequency: Follow-up visit only Plan: Plan of care initiated Plan Comments: will contact department on as needed basis. Treatment interventions may include: Therapeutic exercise, Therapeutic functional activity, Self-care/home management Lymph Recommendations: PT: Time Spent with Patient Evaluations PT Eval - Mod Complexity: 18 min Therapeutic Interventions Therapeutic Activity (min): 39 min Time Tracking Total Timed Units (min): 39 min Total Treatment Time (min): 57 min Mirian Plaza P.T., D.P.T., ABPTS-ONC documented in this encounter Plan of Treatment Not on filedocumented as of this encounter Visit Diagnoses Diagnosis Lymphedema documented in this encounter Additional Health Concerns Assessment Noted Time PHQ-9 Depression Total Score: 15 03/22/2021 12:16 PM C DT documented as of this encounter Care Teams Resident Care Manager Relationship Specialty Start Date End Date Elsewhere, Pcp PCP - General Internal Medicine 03/26/22 documented as of this encounter
--- OUTSIDE RECORDS SUMMARY | 2022-10-07 10:40 | XMS_ITS | Encounter Summary ---
:1935 Author Organization [facility] Address [address] [place] [address] Care Team Providers Name Role Phone Elsewhere, Pcp Primary Care Provider Unavailable Reason for Referral Physical Therapy (Routine) - Authorized Specialty Diagnoses / Procedures Referred By Contact Refer red To Contact Diagnoses Lymphedema Juanito Rodriguez M.D. [facility] Procedures PT or OT eval and treat (first available) [address] [place] [phone] Referral ID Status Reason Start Date Expiration Date Visits V isits Requested Authorized [id number] Authorized 05/15/2022 05/15/2023 99 99 Encounter Details Date Type Department Care Team Description 05/15/2022 Orders Only Department of Physical Juanito Rodriguez Lymphedema (Primary Medicine and Evette Tang Dx) Rehabilitation in [address] [place] [address] [address] [facility] [phone] [place] [phone] Social History Tobacco Use Types Packs/Day [...] or relatives? How often do you attend restorationism or 1 to 4 times per year 03/2022 faith services? Do you belong to any clubs or No 02/19/2022 organizations such as restorationism groups, unions, fraternal or athletic groups, or [...] place to sleep or slept in a skilled nursing (including now)? Education Answer Date Recorded What is the highest level of school Associate degree: magaly deal, 02/19/2022 you have completed or the highest technical, or vocational p wes degree you have received? Sex Assigned at Date Recorded Female 02/19/2022 7:48 AM CDT documented as of this encounter Plan of Treatment Not on filedocumented as of this encounter Visit Diagnoses Diagnosis Lymphedema - Primary documented in this encounter Additional Health Concerns Assessment Noted Time PHQ-9 Depression Total Score: 15 03/22/2021 12:16 PM C DT documented as of this encounter Care Teams Night Club Manager Relationship Specialty Start Date End Date Elsewhere, Pcp PCP - General Internal Medicine 03/26/22 documented as of this encounter
--- OUTSIDE RECORDS SUMMARY | 2022-10-07 10:40 | XMS_ITS | Encounter Summary ---
:1935 Author Organization [facility] Address [address] [place] [address] Care Team Providers Name Role Phone Elsewhere, Pcp Primary Care Provider Unavailable Encounter Details Date Type Department Care Team Description 04/23/2022 Hospital Encounter Department of Naty, Chronic Kidney Laboratory Medicine Nena Corley APRN, Di sease Stage 4 and Pathology, C.N.P., D.N.P. [facility], in [address] Filtration Rate [place], [place] [address] ([facility]) [place] [phone] [place] [address] [place], [place] (Work) [phone] Social History Tobacco Use Types Packs/Day Years [...] or relatives? How often do you attend yazidi or 1 to 4 times per year 03/2022 alevism services? Do you belong to any clubs or No 02/19/2022 organizations such as yazidi groups, unions, fraternal or athletic groups, or [...] place to sleep or slept in a prison (including now)? Education Answer Date Recorded What [...] mouth every 6 (six) hours as needed. buPROPion XL (WELLBUTRIN Take 300 mg by [...] by 0 120-180 mg capsule mouth daily. Graff 3 (strength unknown) esomeprazole (NexIUM) 20 Take 20 mg by mouth [address] capsule as needed. Hardly ever GLUTATHIONE MISC Take 1 capsule by 0 [...] vitamin C/biotin Take 1 capsule by 0 ([id number], VIT mouth daily. C-BIOTIN, ORAL) VITAMIN K2 ORAL Take 1 capsule by 0 mouth daily. 120 mcg ZINC ACETATE ORAL Take 50 mg by mouth 0 daily. documented as of this encounter Plan of Treatment Not on filedocumented as of this encounter Procedures Procedure Name Priority Date/Time Associated Comments Diagnosis RENAL FUNCTION PANEL, Routine 04/23/2022 10:43 Chronic Kidney Results for this S AM CDT Disease Stage 4 procedure ar e in Glomerular the results Filtration Rate section. ([facility]) CBC WITHOUT Routine 04/23/2022 10:43 Chronic Kidney Results f or this DIFFERENTIAL, B AM CDT Disease Stage 4 procedure are in Glomerular the results Filtration Rate section. ([facility]) URIC ACID, S/P Routine 04/23/2022 10:43 Chronic Kidney Results for this AM CDT Disease Stage 4 procedure ar e in Glomerular the results Filtration Rate section. (HCC) PARATHYROID HORMONE Routine 04/23/2022 10:43 Chronic Kidney Re sults for this (PTH), S AM CDT Disease Stage 4 procedure ar e in Glomerular the results Filtration Rate section. (HCC) documented in this encounter Results (ABNORMAL) Uric Acid (04/23/2022 10:43 AM CDT) P athologist Signature Uric Acid, S 8.5 (H) 2.7 - 6.1 04/23/2022 DTL mg/dL 11:58 AM CDT Specimen Anatomical Collection Method Collection Time Receive d Time (Source) Location / / Volume Laterality Blood (Blood, 04/23/2022 10:43 04/23/2022 Venous) AM CDT 11:29 AM CDT Nena Alfonso APRN, C.N.P., D.N.P. LAB BLOOD A DD-ON Performing Organization Address City/[facility] Phon e Number [facility] - [address] [place] [address] (ABNORMAL) Parathyroid Hormone (PTH) (04/23/2022 10:43 AM CDT) Analysis Performed At Patho logist Time Signature Parathyroid 103 (H) 15 - 65 04/23/2022 DTL Hormone (PTH), S pg/mL 11:58 AM CDT Specimen Anatomical Collection Method Collection Time Receive d Time (Source) Location / / Volume Laterality Blood (Blood, 04/23/2022 10:43 04/23/2022 Venous) AM CDT 11:29 AM CDT Nena Alfonso APRN, C.N.P., D.N.P. LAB BLOOD A DD-ON Performing Organization Address City/[facility] Phon e Number [facility] - [address] (ABNORMAL) Renal Function Panel (04/23/2022 10:43 AM CDT) Analysis Performed At Patho logist Time Signature Potassium, S 4.9 3.6 - 5.2 04/23/2022 DTL mmol/L 11:58 AM CDT Sodium, S 142 135 - 145 04/23/2022 DTL mmol/L 11:58 AM CDT Chloride, S 105 98 - 107 04/23/2022 DTL mmol/L 11:58 AM CDT Bicarbonate, S 27 22 - 29 04/23/2022 DTL mmol/L 11:58 AM CDT Anion Gap 10 7 - 15 04/23/2022 DTL 11:58 AM CDT BUN (Blood Urea 45 (H) 6 - 21 04/23/2022 DTL Nitrogen), S mg/dL 11:58 AM CDT Creatinine 1.56 (H) 0.59 - 04/23/2022 DTL 1.04 mg/dL 11:58 AM CDT eGFR-Non 30 (L) >=60 04/23/2022 DTL Black/ mL/min/BSA 11:58 AM CDT Mongolian Comment: ----ADDITIONAL INFORMATION---- Estimated GFR calculated using the 2009 CKD_EPI creatinine equation. eGFR-Black/ 35 (L) >=60 mL/min/BSA 2021 11:58 AM CDT DTL Comment: ----ADDITIONAL INFORMATION---- Estimated GFR calculated using the 2009 CKD_EPI creatinine equation. Calcium, Total, S 9.6 8.8 - 10.2 mg/dL 04/23/2022 11:5 8 AM CDT DTL Glucose, S 111 70 - 140 mg/dL 04/23/2022 11:58 AM CDT DTL Albumin, S 4.5 3.5 - 5.0 g/dL 04/23/2022 11:58 AM CDT DTL Phosphorus (Inorganic), S 3.1 2.5 - 4.5 mg/dL 04/23/20 11:58 AM CDT DTL Specimen Anatomical Collection Method Collection Time Receive d Time (Source) Location / / Volume Laterality Blood (Blood, 04/23/2022 10:43 04/23/2022 Venous) AM CDT 11:29 AM CDT Nena Alfonso APRN, C.N.P., D.N.P. LAB BLOOD A DD-ON Performing Organization Address [facility] Phon e Number [facility] - [address] [place], [place] [address] [facility] [place] [address] [facility] [address] (ABNORMAL) CBC without Differential (04/23/2022 10:43 AM CDT) [facility] gist Method Time Signature Hemoglobin 11.5 (L) 11.6 - 04/23/2022 DTL 15.0 g/dL 11:20 AM CDT Hematocrit 37.5 35.5 - 04/23/2022 DTL 44.9 % 11:20 AM CDT Erythrocytes 4.00 3.92 - 04/23/2022 DTL 5.13 11:20 AM CDT x10(12)/L MCV 93.8 78.2 - 04/23/2022 DTL 97.9 fL 11:20 AM CDT RBC Distrib Width 12.9 12.2 - 04/23/2022 DTL 16.1 % 11:20 AM CDT Platelet Count 213 157 - 371 04/23/2022 DTL x10(9)/L 11:20 AM CDT Leukocytes 7.1 3.4 - 9.6 04/23/2022 DTL x10(9)/L 11:20 AM CDT Specimen Anatomical Collection Method Collection Time Receive d Time (Source) Location / / Volume Laterality Blood (Blood, 04/23/2022 10:43 04/23/2022 Venous) AM CDT 11:07 AM CDT Nena Alfonso APRN, C.N.P., D.N.P. LAB BLOOD A DD-ON Performing Organization Address City/[facility] Phon e Number [facility] - [address] [place], [place] [address] [facility] [place] [address] [facility] [address] [facility] documented in this encounter Visit Diagnoses Diagnosis Chronic Kidney Disease Stage 4 Glomerula r Filtration Rate 15-29 (HCC) documented in this encounter Additional Health Concerns Assessment Noted Time PHQ-9 Depression Total Score: 15 03/22/2021 12:16 PM C DT documented as of this encounter Care Teams Urogynaecologist Relationship Specialty Start Date End Date Elsewhere, Pcp PCP - General Internal Medicine 03/26/22 documented as of this encounter
--- OUTSIDE RECORDS SUMMARY | 2022-10-07 10:41 | XMS_ITS | Encounter Summary ---
:1935 Author Organization [facility] Address [address] [place] [address] Care Team Providers Name Role Phone Elsewhere, Pcp Primary Care Provider Unavailable Encounter Details Date Type Department Care Team Description 03/28/2022 Hospital Encounter Department of Lucía Aponte Pain J oint Hand Left; Laboratory Medicine [facility] Pain Joint Hand Right; and Pathology, [address] [place] [address] Arthritis; [facility], in [place], [place] Swellin g Joint [place], [place] [address] [address] [facility] [phone] [place], [place] (Work) [phone] Social History Tobacco Use Types Packs/Day [...] or relatives? How often do you attend zoroastrian or 1 to 4 times per year 03/2022 restorationism services? Do you belong to any clubs or No 02/19/2022 organizations such as zoroastrian groups, unions, fraternal or athletic groups, or [...] (collagen, hydr, bovine,, bulk,) 100 % powder DME CPAPIndications: DME Order 1 Device 0 06/14/2021 Obstructive Sleep Apnea Adult docosahexaenoic acid-epa Take 2 capsules by 0 120-180 mg capsule mouth daily. Preston 3 (strength unknown) esomeprazole (NexIUM) 20 Take [...] pain. lisinopril-hydroCHLOROthi Take 1 tablet by 0 11/2014 azide mouth daily. (PRINZIDE,ZESTORETIC) 20-12.5 mg [...] vitamin C/biotin Take 1 capsule by 0 (ZHAD-KWDN-IQACT, VIT mouth daily. C-BIOTIN, ORAL) VITAMIN K2 ORAL Take 1 capsule by 0 mouth daily. 120 mcg ZINC ACETATE ORAL Take 50 mg by mouth 0 daily. allopurinoL (ZYLOPRIM) TAKE 1/2 TABLET(50 18 tablet 1 02/0804/23/2022 100 mg tablet MG) BY MOUTH 3 TIMES A WEEK furosemide (LASIX) 20 mg Take 1 tablet (20 mg 90 tablet 3 0 01/01/2022 04/23/2022 tablet total) by mouth daily. documented as of this encounter Plan of Treatment Not on filedocumented as of this encounter Procedures Procedure Name Priority Date/Time Associated Comments Diagnosis CYCLIC CITRULLINATED Routine 03/28/2022 9:52 AM Pain Joint Str[place] d Results for this PEPTIDE ABS, IGG, S CDT Left procedure are in Pain Joint Hand the results Right section. Arthritis Swelling Joint RHEUMATOID FACTOR, S/P Routine 03/28/2022 9:52 AM Pain Joint H and Results for this CDT Left procedure are in Pain Joint Hand the results Right section. Arthritis Swelling Joint C-REACTIVE PROTEIN Routine 03/28/2022 9:52 AM Pain Joint Hand Results for this (CRP), S/P CDT Left procedure are in Pain Joint Hand the results Right section. Arthritis Swelling Joint documented in this encounter Results Cyclic Citrullinated Peptide Antibodies, IgG (03/28/2022 9:52 AM CDT) Analysis Performed At Patho logist Time Signature Cyclic <15.6 <20.0 03/28/2022 [facility] Citrullinated (Negative) 5:58 PM CDT Peptide Ab, S U Specimen Anatomical Collection Method Collection Time Receive d Time (Source) Location / / Volume Laterality Blood (Blood, 03/28/2022 9:52 AM 03/28/20 22 1:22 Venous) CDT PM CDT Lucía Aponte M.D. LAB BLOOD ADD-ON Performing Organization Address City/[facility]/ZIP Code Phon e Number [facility] [address] [place] [address] SUPPORT CENTER [facility] [place] [address] Laboratory Medicine and Pathology [address] [place] [address] Dr. [place] Rheumatoid Factor (03/28/2022 9:52 AM CDT) athologist Signature Rheumatoid <15 <15 IU/mL 03/28/2022 [facility] Factor, S 2:24 PM CDT Specimen Anatomical Collection Method Collection Time Receive d Time (Source) Location / / Volume Laterality Blood (Blood, 03/28/2022 9:52 AM 03/28/20 22 1:47 Venous) CDT PM CDT Lucía Aponte M.D. LAB BLOOD ADD-ON Performing Organization Address City/[facility] Phon e Number [facility] [address] [address] [place] [address] SU[facility] [place] [place] [address] Laboratory Medicine and Pathology [address] [place] [address] Dr. [place] CRP (C-Reactive Protein) (03/28/2022 9:52 AM CDT) athologist Signature C-Reactive <3.0 <=8.0 mg/L 03/28/2022 [facility] Protein (CRP), 10:52 AM CDT S Specimen Anatomical Collection Method Collection Time Receive d Time (Source) Location / / Volume Laterality Blood (Blood, 03/28/2022 9:52 AM 03/28/20 22 Venous) CDT 10:33 AM CDT Lucía Aponte M.D. LAB BLOOD ADD-ON Performing Organization Address City/State/ZIP Code Phon e Number [facility] - [address] [place], [place] [address] [facility] [place] [address] [facility] [address] documented in this encounter Visit Diagnoses Diagnosis Pain Joint Hand Left Pain Joint Hand Right Arthritis Swelling Joint documented in this encounter Additional Health Concerns Assessment Noted Time PHQ-9 Depression Total Score: 15 03/22/2021 12:16 PM C DT documented as of this encounter Care Teams Sawmill Production Worker Relationship Specialty Start Date End Date Elsewhere, Pcp PCP - General Internal Medicine 03/26/22 documented as of this encounter
--- OUTSIDE RECORDS SUMMARY | 2022-10-07 10:41 | XMS_ITS | Encounter Summary ---
:1935 Author Organization [facility] Address [address] [place] [address] Care Team Providers Name Role Phone Elsewhere, Pcp Primary Care Provider Unavailable Reason for Visit Reason Comments Pre-visit Intake Encounter Details Date Type Department Care Team Description 03/26/2022 Clinical Communication Visit Review in Pr e-visit Intake [place], [place] [address] [place] [address] Social History Tobacco Use Types [...] or relatives? How often do you attend yazidism or 1 to 4 times per year 03/2022 moravian services? Do you belong to any clubs or No 02/19/2022 organizations such as yazidism groups, unions, fraternal or athletic groups, or [...] documented as of this encounter Care Teams Gas Stove Servicer Helper Relationship Specialty Start Date End Date Elsewhere, Pcp PCP - General Internal Medicine 03/26/22 documented as of this encounter
--- OUTSIDE RECORDS SUMMARY | 2022-10-07 10:41 | XMS_ITS | Encounter Summary ---
:1935 Author Organization [facility] Address [address] [place] [address] Care Team Providers Name Role Phone Unavailable Primary Care Provider Unavailable Reason for Referral Outpatient (Routine) - Closed Specialty Diagnoses / Procedures Referred By Contact Refer red To Contact Diagnoses Pain Joint Hand Left Pain Joint Hand Right Arthritis Swelling Joint Osteophyte Right Hand Lucía Aponte M.D. [facility] Procedures ORS US-Guided aspiration/injection [address] [place], [place] [address] Referral ID Status Reason Start Date Expiration Date Visits Requ ested Visits Authorized [id number] Closed 02/19/2022 02/19/2023 1 1 hysical Therapy (Routine) - Authorized Specialty Diagnoses / Procedures Referred By Contact Refer red To Contact Diagnoses Pain Joint Hand Left Pain Joint Hand Right Arthritis Swelling Joint Lucía Aponte M.D. [facility] Procedures PT or OT eval and treat (first available) [address] [place] [address] Referral ID Status Reason Start Date Expiration Date Visits V isits Requested Authorized [id number] Authorized 02/19/2022 02/19/2023 99 99 hysical Therapy (Routine) - Authorized Specialty Diagnoses / Procedures Referred By Contact Refer red To Contact Diagnoses Pain Joint Hand Left Pain Joint Hand Right Arthritis Swelling Joint Lucía Aponte M.D. [facility] Procedures PT or OT eval and treat (first available) [address] [place] [address] Referral ID Status Reason Start Date Expiration Date Visits V isits Requested Authorized [id number] Authorized 02/19/2022 02/19/2023 99 99 utpatient (Routine) - Closed Specialty Diagnoses / Procedures Referred By Contact Refer red To Contact Rheumatology Diagnoses Pain Joint Hand Left Pain Joint Hand Right Arthritis Swelling Joint Lucía Aponte M.D. [facility] [address] [place] [address] Referral ID Status Reason Start Date Expiration Date Visits Requ ested Visits Authorized [id number] Closed 02/19/2022 02/19/2023 1 1 Scheduling Instructions Uric acid increased from december 2021 RI/CAT/PET Scan (Routine) - Closed Specialty Diagnoses / Procedures Referred By Contact Refer red To Contact Radiology Diagnoses Pain Joint Hand Left Pain Joint Hand Right Arthritis Swelling Joint Lucía Aponte M.D. [facility] Procedures CT Hand Right Dual Energy without IV Contrast [address] [place], [place] [address] Referral ID Status Reason Start Date Expiration Date Visits Requ ested Visits Authorized [id number] Closed 02/19/2022 02/19/2023 1 1 Reason for Visit Reason Comments Consult Deformity Consult Deformity Outpatient (Routine) - Closed Specialty Diagnoses / Procedures Referred By Contact Refer red To Contact Orthopedic Surgery Diagnoses Pain Joint Hand Left Pain Joint Hand Right Juanito Rodriguez, [facility] [address] [place] [address] Referral ID Status Reason Start Date Expiration Date Visits Requ ested Visits Authorized [id number] Closed 12/26/2021 12/26/2022 1 1 Encounter Details Date Type Department Care Team Description 02/19/2022 Comprehensive Visit Department of Lucía Aponte Arthr itis (Primary Dx); Orthopedic Surgery [facility] Pain Joint Hand Left; in [place] [address] [address] [facility] Pain Joint Hand Right; [place], [place] Swelling Joint; [address] [address] Osteophyte Right Hand [place], [place] [phone] (Work) [phone] Social History Tobacco Use Types Packs/Day Years [...] or relatives? How often do you attend orthodox or 1 to 4 times per year 03/2022 cheondoism services? Do you belong to any clubs or No 02/19/2022 organizations such as orthodox groups, unions, fraternal or athletic groups, or [...] documented as of this encounter Consult Notes Lucía Aponte M.D. - 02/19/2022 8:00 AM CDT SUBJECTIVE REQUESTING PROVIDER Juanito Rodriguez M.D. REASON FOR CONSULT Consult and Deformity of the Right Hand and Consult and Deformity of the Left Hand HISTORY OF PRESENT ILLNESS Mrs. Vielka Yap a 86 y.o. female right handed who presents today for evaluation of Right index and middle fingers, and left index finger pain. She is here with her . She was diagnosed with gout many years ago, however has never seen a ultrasound supervisor. She also has kidney disease. She takes a very small dose of allopurinol. She has noticed especially in the last year and in particular in the last 6 months pain in particular right now the right middle finger D IP joint. She has difficulty using her hands because of the arthritis especially in the D IP joints. 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 She has deteriorated in the last year. She has tried hemp topical cream thatshe uses for her lower extremities for the neuropathy. She has never tried Voltaren gel on her hands. She has not received an injection in her hands at the DIP joints although previously had gotten 1 in the 1st CMC joints. The following portions of the patient's history were reviewed and updated as appropriate: allergies,current medications, family history, medical history, social history, surgical history and problem list. REVIEW OF SYSTEMS I have briefly reviewed the Review of Systems as noted on the Health history form. I am only responding to those symptoms which are directly relevant to the specific indication for my consultation. I recommend that the patient follow up with their primary or referring provider to pursue any other symptoms which may be of concern. Constitutional: Positive for weight gain of more than 10 pounds. Cardiovascular: Positive for swelling in the legs or feet. Genitourinary: Positive for incontinence. Musculoskeletal: Positive for arthralgias, back pain, pain or stiffness in the joints, joint swelling and muscle pain/stiffness. Neurological: Positive for numbness or shooting pain in hands, arms, legs, or feet and weakness in arms or legs. The following systems were negative: Skin, Eyes, ENT, Respiratory, GI, Hematologic, Psych OBJECTIVE There were no vitals taken for this visit. PHYSICAL EXAM On physical examination we nor at deformities in particular at the right index and middle finger D IP joints, as well as the left index finger D IP joint. On the right side middle finger D IP joint, there is swelling and tenderness to palpation at the IP joint. There is mild synovitis that is palpatedat the index MCP joint on the right but there is no tenderness. Otherwise there is no effusion that is palpable at the other joints. At the thumbs, we note mild swan neck deformities. Strength is within normal limits. Tinel at the median nerve is negative bilaterally, as is Phalen with compression. General: Pleasant, straightforward, endomorphic body habitus Mental Status: pleasant, direct, appropriate mood and affect Respiratory: breathing is unlabored without audible wheeze The following was observed on examined segments; Vascular: no cyanosis, no venous stasis changes Lymph: no lymphedema Skin: No other acute or significant overlying skin change, ecchymosis, or erythema. DIAGNOSTICS XR Hand Bilateral 01/01/2022 I have personally reviewed the images available to me in [facility] and have copied the radiologists report here below. My additional findings are: agreed IMPRESSION: Spotty demineralization. Old healed fracture deformity of the left distal radius and ulna with hypertrophic change. Ulnar positive variance bilaterally with findings of ulnolunate abutment. 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 Scattered degenerative arthritis or the remaining hands and wrists greatest at the 1st CMC joints and at the left 3rd MCP joint. Soft tissue swelling about both wrists. Labs Component Latest Ref Rng & Units 09/17/2021 01/01/2022 Hemoglobin 11.6 - 15.0 g/dL 12.5 Hematocrit 35.5 - 44.9 % 39.4 Erythrocytes 3.92 - 5.13 x10(12)/L 4.21 MCV 78.2 - 97.9 fL 93.6 RBC Distrib Width 12.2 - 16.1 % 13.2 Platelet Count 157 - 371 x10(9)/L 210 White Blood Cell Count 3.4 - 9.6 x10(9)/L 5.8 Neutrophils 1.56 - 6.45 x10(9)/L 4.49 Lymphocytes 0.95 - 3.07 x10(9)/L 0.76 (L) Monocytes 0.26 - 0.81 x10(9)/L 0.39 Eosinophils 0.03 - 0.48 x10(9)/L 0.12 Basophils 0.01 - 0.08 x10(9)/L <0.03 Uric Acid, S 2.7 - 6.1 mg/dL 7.1 (H) ASSESSMENT / PLAN #1 Pain Joint Hand Left #2 Pain Joint Hand Right #3 Arthritis #4 Swelling Joint #5 Osteophyte Right Hand Suspected gout related changes at the D IP joints 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 Her uric acid remains elevated. However she has not been screened for rheumatoid factor or other inflammatory blood work. After discussing with the patient and her , we will proceed with a dual energy CT scan of theright hand, additional blood work. I have placed orders in Hand therapy and to review of an orthoticon the right side can help her function particular because of the jewelry. I have also placed a consult in Rheumatology, given the kidney disease and suboptimal dosage of allopurinol likely. Patient can place Voltaren gel in the meantime at focal small joints in the hand especially the right middle finger, twice a day regularly for 2 weeks and discontinue. I cautioned the patient not to use it on other surfaces because of her kidney issues. She understands. When she returns back to [facility] to do the additional tests, I will see her back for a right middle finger D IP joint injection if she has failed to improved with the topical cream. They are leaving this morning to had to an appointment at the has shortly. She will return sometime in March, try to coordinate the other appointments. EDUCATION We discussed the diagnosis and treatment plan in detail. The patient expressed understanding of the content. No apparent learning barriers were identified; learning preferences include listening. A total of 50 minutes was dedicated to today's visit including [id number] time as well as additional time for a documentation/charting. 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 02/19/2022 consult (clinic) Pain Joint Hand (Approxi mate), Right Expires: Arthritis 05/21/2023 Swelling Joint documented as of this encounter Results ORS US-Guided aspiration/injection (04/24/2022 [...] Needle approach: posterior to anterior Ultrasound visualization: [id number] Procedural Medication The following medications were administe [...] Code Phon e Number MMODAL MMODAL NA CT Hand Right Dual Energy without IV Contrast (03/28/2022 2:51 PM CDT) Anatomical Region Laterality Modality Upper Extremity, Hand, Musculoskeletal Right C omputed Tomography, Computed RST LOS, Musculoskeletal ARZ LOS, Tomogr aphy Muskuloskeletal FLA LOS Specimen (Source) Anatomical Collection Method Collection Time Re ceived Time Location / / Volume Laterality 03/28/2022 3:31 PM CDT Impressions 03/28/2022 3:41 PM CDT As seen on comparison radiographs, there are changes of advanced destructive arthritis involving the right 2nd and 3rd DIP join ts, with erosive changes, joint space narrowing, subluxation, and surrounding soft tissue swelling. There is a single tiny focus of green encoded pixelization along the 3rd DIP joint (se nick 1012, image 89 and series 1017, image 110). As such, the findings in the DIP joints are favor ed to be secondary to erosive osteoarthritis rather than gouty arthritis. There are no additional foci of green encoded pixelization throughout the right wrist or hand. Scattered degenerative arthritis of the right wrist and hand, with changes in the wrist most pronounced at the 1st CMC and STT joints . Demineralization. Benign intraosseous cysts in the triquetrum and hamate. Small loose body in the pisotriquetral recess. Narrative 03/28/2022 3:41 PM CDT EXAM: ??CT HAND RIGHT DUAL ENERGY WITHOUT IV CONTRAST 3D images were created on an independent workstation as ordered by the treating provider and reviewed by the radiologist to assist in treatment planning. COMPARISON: ??12/30/2021 radiographs. Procedure Note Kristopher Culver M.D. - 03/28/2022Form atting of this note might be different from the original. EXAM: CT HAND RIGHT DUAL ENERGY WITHOUT IV CONTRAST 3D images were created on an independent workstation as ordered by the treating provider and reviewed by the radiologist to assist in treatment planning. COMPARISON: 12/30/2021 radiographs. IMPRESSION: As seen on comparison radiographs, there are changes of advanced destructive arthritis involving the right 2nd and 3rd DIP join ts, with erosive changes, joint space narrowing, subluxation, and surrounding soft tissue swelling. There is a single tiny focus of green encoded pixelization along the 3rd DIP joint (se nick 1012, image 89 and series 1017, image 110). As such, the findings in the DIP joints are favor ed to be secondary to erosive osteoarthritis rather than gouty arthritis. There are no additional foci of green encoded pixelization throughout the right wrist or hand. Scattered degenerative arthritis of the right wrist and hand, with changes in the wrist most pronounced at the 1st CMC and STT joints . Demineralization. Benign intraosseous cysts in the triquetrum and hamate. Small loose body in the pisotriquetral recess. Lucía Aponte M.D. G CT PROCEDURES Cyclic Citrullinated Peptide Antibodies, IgG (03/28/2022 9:52 AM CDT) Analysis Performed At Patho logist Time Signature Cyclic <15.6 <20.0 03/28/2022 [facility] Citrullinated (Negative) 5:58 PM CDT Peptide Ab, S U Specimen Anatomical Collection Method Collection Time Receive d Time (Source) Location / / Volume Laterality Blood (Blood, 03/28/2022 9:52 AM 03/28/20 22 1:22 Venous) CDT PM CDT Lucía Aponte M.D. LAB BLOOD ADD-ON Performing Organization Address City/[facility]/ZIP Code Phon e Number [facility] [address] [place], [place] [address] SUPPORT CENTER [facility] [address] Laboratory Medicine and Pathology [address] [place] [address] Dr. [place] Rheumatoid Factor (03/28/2022 9:52 AM CDT) athologist Signature Rheumatoid <15 <15 IU/mL 03/28/2022 [facility] Factor, S 2:24 PM CDT Specimen Anatomical Collection Method Collection Time Receive d Time (Source) Location / / Volume Laterality Blood (Blood, 03/28/2022 9:52 AM 03/28/20 22 1:47 Venous) CDT PM CDT Lucía Aponte M.D. LAB BLOOD ADD-ON Performing Organization Address City/[facility] Code Phon e Number [facility] [address] [place] [phone] SUPPORT [facility] [place] [address] Laboratory Medicine and Pathology [address] [place] [address] Dr. [place]ST[place] CRP (C-Reactive Protein) (03/28/2022 9:52 AM CDT) athologist Signature C-Reactive <3.0 <=8.0 mg/L 03/28/2022 [facility] Protein (CRP), 10:52 AM CDT S Specimen Anatomical Collection Method Collection Time Receive d Time (Source) Location / / Volume Laterality Blood (Blood, 03/28/2022 9:52 AM 03/28/20 22 Venous) CDT 10:33 AM CDT Luíca Aponte M.D. LAB BLOOD ADD-ON Performing Organization Address City/State/ZIP Code Phon e Number [facility] - [address] [place], [place] [address] [facility] [place] [address] [facility] [address] documented in this encounter Visit Diagnoses Diagnosis Arthritis - Primary Pain Joint Hand Left Pain Joint Hand Right Swelling Joint Osteophyte Right Hand Pain Joint Hand Left Pain Joint Hand Right Arthritis Swelling Joint Pain Joint Hand Left Pain Joint Hand Right Arthritis Swelling Joint Osteophyte Right Hand documented in this encounter Additional Health Concerns Assessment Noted Time PHQ-9 Depression Total Score: 15 03/22/2021 12:16 PM C DT documented as of this encounter
--- OUTSIDE RECORDS SUMMARY | 2022-10-07 10:41 | XMS_ITS | Encounter Summary ---
:1935 Author Organization [facility] Address [address] [place] [address] Care Team Providers Name Role Phone Unavailable Primary Care Provider Unavailable Reason for Referral Outpatient (Routine) - Closed Specialty Diagnoses / Procedures Referred By Contact Refer red To Contact Diagnoses Pain Joint Hand Left Pain Joint Hand Right Juanito Rodriguez M.D. [facility] Procedures DX Hand Bilateral 3+ Views [address] [place] [address] Referral ID Status Reason Start Date Expiration Date Visits Requ ested Visits Authorized [id number] Closed 12/26/2021 12/26/2022 1 1 TRICIAN APPRENTICE Reason for Visit Outpatient (Routine) - Closed Specialty Diagnoses / Procedures Referred By Contact Refer red To Contact Diagnoses Pain Joint Hand Left Pain Joint Hand Right Juanito Rodriguez M.D. [facility] Procedures DX Hand Bilateral 3+ Views [address] [place], [place] [phone] Referral ID Status Reason Start Date Expiration Date Visits Requ ested Visits Authorized [id number] Closed 12/26/2021 12/26/2022 1 1 Encounter Details Date Type Department Care Team Description 01/01/2022 Hospital Encounter Department of Naz Rodriguez nt Hand Left; Radiology, Amy Tang M.D. Pain Joint Hand Right Building, in [address] [place] [phone] 200 [facility] [phone] [place], [place] (Work) [phone] Social History Tobacco Use Types Packs/Day Years [...] or relatives? How often do you attend religion or 1 to 4 times per year 03/2022 jain services? Do you belong to any clubs or No 02/19/2022 organizations such as religion groups, unions, fraternal or athletic groups, or [...] minutes do you engage in exercise at is 0 min 02/19/2022 level? Stress Answer [...] place to sleep or slept in a retirement (including now)? Education Answer Date Recorded What is the highest level of school you have completed or 12 th grade 03/22/2021 the highest degree you have received? Sex Assigned at [...] by 0 120-180 mg capsule mouth daily. [place] 3 (strength unknown) esomeprazole (NexIUM) 20 Take 20 mg by mouth [address] capsule as needed. Hardly ever GLUTATHIONE MISC Take 1 capsule by 0 mouth daily. (strength unknown) ketoconazole (NIZORAL) 2 Apply 1 application 30 g 1 % cream topically 2 (two) times a day. Apply to right lateral abdomen twice daily for 4 weeks levothyroxine (SYNTHROID, Take 25 mcg by mouth [...] by mouth 0 daily. Med Name: Turmeric vitamin C/biotin Take 1 capsule by 0 ([id number], VIT mouth daily. C-BIOTIN, ORAL) VITAMIN K2 ORAL Take 1 capsule by 0 mouth daily. 120 mcg ZINC ACETATE ORAL Take 50 mg by mouth 0 daily. allopurinoL (ZYLOPRIM) Take 0.5 tablets (50 18 tablet 0 10/202102/06/2022 100 mg tablet mg total) by mouth 3 (three) times a week. furosemide (LASIX) 20 mg Take 1 tablet (20 mg 90 tablet 3 0 01/01/2022 04/23/2022 tablet total) by mouth daily. psyllium husk (METAMUCIL Take 1 scoopful by 0 03/26/2022 ORAL) mouth as needed. documented as of this encounter Plan of Treatment Not on filedocumented as of this encounter Procedures Procedure Name Priority Date/Time Associated Comments Diagnosis DX HAND BILATERAL RAD - Routine 01/01/2022 11:56 Pain Joint Hand Re sults for this 3+ VIEWS (most inpatients AM ELECTRICIAN APPRENTICE Left procedure are in and all Pain Joint Hand the results outpatients) Right section. documented in this encounter Results DX Hand Bilateral 3+ Views (01/01/2022 11:56 AM ELECTRICIAN APPRENTICE) Anatomical Region Laterality Modality Upper Extremity, Hand, Musculoskeletal RST LOS, Bilateral Digital Radiography Musculoskeletal ARZ LOS, Muskuloskeletal FLA LOS Specimen (Source) Anatomical Collection Method Collection Time Re ceived Time Location / / Volume Laterality 01/01/2022 11:57 AM ELECTRICIAN APPRENTICE Impressions 01/01/2022 12:00 PM ELECTRICIAN APPRENTICE Spotty demineralization. Old healed fracture deformity of the left distal radius and ulna with hypertrophic change. Ulnar pos itive variance bilaterally with findings of ulnolunate abutment. Advanced erosive osteoarthriti s involving the left index and right index and long finger DIP joints. Scattered degenerative arthr itis or the remaining hands and wrists greatest at the 1st CMC joints and at the left 3rd MCP joint . ??Soft tissue swelling about both wrists. Narrative 01/01/2022 12:00 PM ELECTRICIAN APPRENTICE EXAM: ??DX HAND BILATERAL 3+ VIEWS Procedure Note Grady Shirley M.D. - 01/01/2022Forma tting of this note might be different from the original. EXAM: DX HAND BILATERAL 3+ VIEWS IMPRESSION: Spotty demineralization. Old healed frac ture deformity of the left distal radius and ulna with hypertrophic change. Ulnar pos itive variance bilaterally with findings of ulnolunate abutment. Advanced erosive osteoarthriti s involving the left index and right index and long finger DIP joints. Scattered degenerative arthr itis or the remaining hands and wrists greatest at the 1st CMC joints and at the left 3rd MCP joint . Soft tissue swelling about both wrists. Juanito C Wainberg M.D. IMG DIAGNOSTIC IMAGING PROCE DURES documented in this encounter Visit Diagnoses Diagnosis Pain Joint Hand Left Pain Joint Hand Right documented in this encounter Additional Health Concerns Assessment Noted Time PHQ-9 Depression Total Score: 15 03/22/2021 12:16 PM C DT documented as of this encounter
--- OUTSIDE RECORDS SUMMARY | 2022-10-07 10:41 | XMS_ITS | Encounter Summary ---
:1935 Author Organization [facility] Address [address] [place] [address] Care Team Providers Name Role Phone Elsewhere, Pcp Primary Care Provider Unavailable Reason for Visit Physical Therapy (Routine) - Authorized Specialty Diagnoses / Procedures Referred By Contact Refer red To Contact Diagnoses Pain Joint Hand Left Pain Joint Hand Right Arthritis Swelling Joint Lucía Aponte M.D. [facility] Procedures PT or OT eval and treat (first available) [address] [place] [address] Referral ID Status Reason Start Date Expiration Date Visits V isits Requested Authorized [id number] Authorized 02/19/2022 02/19/2023 99 99 Encounter Details Date Type Department Care Team Description 03/28/2022 Comprehensive Visit Department of Fredy Aponte M.D. [address] [place] [phone] Pain Joint Hand Right (Primary Dx); Physical Medicine and Valeria Gray C.H.T., O.T., O.T.DSharon [address] [place] [phone] Pain Joint Hand Left; Rehabilitation in Arthritis; [place], [place] Swelling Joint [address] [place] [phone] Social History Tobacco Use Types [...] or relatives? How often do you attend baptism or 1 to 4 times per year 03/2022 restorationist services? Do you belong to any clubs or No 02/19/2022 organizations such as baptism groups, unions, fraternal or athletic groups, or [...] place to sleep or slept in a fdc (including now)? Education Answer Date Recorded What is the highest level of school Associate degree: magaly deal, 02/19/2022 you have completed or the highest technical, or vocational p suryram degree you have received? Sex Assigned at Date Recorded Female 02/19/2022 7:48 AM CDT documented as of this encounter Consult Notes Valeria Gray, C.H.Cindi., O.T., O.T.D. - 03/28/2022 9:00 AM CDT Hand Therapy Outpatient Evaluation and Treatment By co-signing this note, the provider certifies the therapy being provided to this patient is reasonable and necessary for the diagnosis or treatment of this patient. Contact monitoring: During this hand therapy session, these additional providers assisted: and No additional providers assisted during today's therapy session. PPE used during therapy: Therapist was wearing the following PPE throughout entire session: surgicalmask and eye protection Patient was wearing a mask during therapy session: yes SUBJECTIVE Patient's Name: Vielka Yap Referring Provider: Lucía Aponte M.D. 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 Imaging studies demonstrate advanced erosive osteoarthritis. She was evaluated by Dr. Aponte on 02/19/2022. She was referred to hand therapy to assist with her activities of daily living and activity modification strategies. Rehab Diagnosis: 1. Pain Joint Hand Right 2. Pain Joint Hand Left 3. Arthritis 4. Swelling Joint Payor: MEDICARE / Plan: MEDICARE A AND B / Product Type: Medicare / Pertinent Medical/Surgical History: Patient Active Problem List Diagnosis ??? Edema [...] Block ??? Incompetence Chronotropic ??? Lesion Skin Past Surgical History: Procedure Laterality Date ??? SECTION 2 ??? DILATATION AND CURETTAGE 7 ??? OTHER CONVERTED SHX (SEE COMMENT) N/A 10/11/2008 >Excision With Layered Closure. ??? OTHER CONVERTED SHX (SEE COMMENT) N/A 10/28/2008 >1. Exploration right peroneal nerve. 2. Decompression at fibular neck. ??? TONSILLECTOMY Precautions/Restrictions: No precautions/restrictions. Total Outpatient Visit Count in Hand Therapy: 1 OT Next Certification Date: 06/26/22 Subjective Comments from the Patient: The patient reports she has been decreasing her Tylenol and would like additional strategies to assist with pain management. Occupational Profile: Hand Dominance: , Right hand dominant Patient lives with spouse who can assist the patient. Current functional limitations include: The patient is independent using one hand but due to increased time, patient is not satisfied with current performance. OBJECTIVE Review of Symptoms: History obtained from chart review and the patient Physical Exam: Numerical Rating Scale: 3/10. On a 0-10 scale with 0 being no pain and 10 being the most severe pain. Appearance: Heberden's nodes noted at right index and long, and left long. 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 Edema: Mild edema digits Fall Assessment: The patient reports 1 or more falls in the past 12 months without injury. Skilled Therapy Intervention Performed Today: ADL/IADL Training/Retraining: This therapist instructed the patient in signs of overuse from generaldiscomfort related to joint pain. The therapists instructed in joint protection principles for dailyoccupations and activity modification principles to reduce stress on the joints of the body. We alsodiscussed and demonstrated the use of a toilet tongs to assist with pericares. She would benefit from built up handles and given strategies on how to create built up handles for at home. Discussed orthotics, but she had good pain relief from the L/XL silipos tubes. Trial of Advanced Image Enhancement microwave hot pack. Discussed how to purchase or fabricate her own at home, since the heat helped decrease her symptoms. The patient was provided the following handouts: , Hand written instructions were given for the above program. Assessment Clinical Impression: The patient tolerated the session with no adverse reactions to this therapy session. The patient verbalized understanding to the self management program. Rehab Potential: Ms. Yap has Good potential to achieve established therapy goals within the time frame outlined below, provided she actively participates in her therapy treatment plan and home program. Evaluation Considerations: Occupational Therapy: Comorbid Conditions:, Arthritis Hand Therapy Personal Factors: Age Balance Impairment Body habitus Hand Therapy Occupational Therapy Profile Review: Brief OT Performance Deficits:, 1-3 performance deficits Evaluation Complexity Occupational Therapy , Low Hand Therapy Goals and Timeframes: The patient/caregiver will verbalize understanding of the self-management program following each therapy session. Goal met The patient will verbalize understanding of joint protection principles and activity modification principles following this therapy session. Goal met The severity of Ms. Yap's functional limitation will be re-assessed within the next 10 visits. Plan Ms. Yap was educated regarding [...] Treatment Plan: Start of Plan of Care: 03/28/2022 Number of Visits: 1 visits in hand therapy. Duration: through 03/28/2022 Return Physician Appointment: April 2022 Plan for Next Session: This is a one time therapy sessions. All goals met. Dismiss patient from handtherapy. May return for orthotic adjustments. Treatment interventions may include: Joint protection Pain management strategies Physical TherapyTime Spent with Patient Occupational TherapyTime Spent with Patient Evaluations OT Eval - Low Complexity: 13 min Therapeutic Interventions Home Management Training (min): 26 min Time Tracking Total Timed Units (min): 26 min Total Treatment Time (min): 39 min Valeria Gray C.H.T., O.T., O.T.D. documented in this encounter Plan of Treatment Not on filedocumented as of this encounter Visit Diagnoses Diagnosis Pain Joint Hand Right - Primary Pain Joint Hand Left Arthritis Swelling Joint documented in this encounter Additional Health Concerns Assessment Noted Time PHQ-9 Depression Total Score: 15 03/22/2021 12:16 PM C DT documented as of this encounter Care Teams Physical Medicine Teacher Relationship Specialty Start Date End Date Elsewhere, Pcp PCP - General Internal Medicine 03/26/22 documented as of this encounter
--- OUTSIDE RECORDS SUMMARY | 2022-10-07 10:41 | XMS_ITS | Encounter Summary ---
:1935 Author Organization [facility] Address [address] [place] [address] Care Team Providers Name Role Phone Unavailable Primary Care Provider Unavailable Encounter Details Date Type Department Care Team Description 01/01/2022 Hospital Encounter Department of Welllisandroitter, Hyperte nsion And Chronic Kidney Disease Stage 1 To 4; Laboratory Medicine Karuna Stephens APRN, Chroni c Kidney Disease Stage 4 Glomerular Filtration Rate 15-29 (HCC) and Pathology, C.N.P., D.N.P. [facility] [place], [place] [address] [place] [address] Social History Tobacco Use Types Packs/Day Years [...] 1 to 4 times per year 03/2022 episcopal services? Do you belong to any clubs or No 02/19/2022 organizations such as mandaeism groups, unions, fraternal or athletic groups, or [...] to sleep or slept in a senior care (including now)? Education Answer Date Recorded What [...] by 0 120-180 mg capsule mouth daily. [place] 3 (strength unknown) esomeprazole (NexIUM) 20 Take [...] vitamin C/biotin Take 1 capsule by 0 ([id number], VIT mouth daily. C-BIOTIN, ORAL) VITAMIN K2 ORAL Take 1 capsule by 0 mouth daily. 120 mcg ZINC ACETATE ORAL Take 50 mg by mouth 0 daily. allopurinoL (ZYLOPRIM) Take 0.5 tablets (50 18 tablet 0 10/202102/06/2022 100 mg tablet mg total) by mouth 3 (three) times a week. psyllium husk (METAMUCIL Take 1 scoopful by 0 03/26/2022 ORAL) mouth as needed. documented as of this encounter Plan of Treatment Not on filedocumented as of this encounter Procedures Procedure Name Priority Date/Time Associated Diagnosis Comme nts DIPSTICK, U Routine 01/01/2022 11:31 Results for this AM SWITCH CLEANER procedure are i n the results section. MICROSCOPIC Routine 01/01/2022 11:31 Results for this AUTOMATED AM SWITCH CLEANER procedure are i n the results section. PH, U Routine 01/01/2022 11:31 Results for this AM SWITCH CLEANER procedure are i n the results section. OSMOLALITY, U Routine 01/01/2022 11:31 Results fo r this AM SWITCH CLEANER procedure are i n the results section. URINALYSIS WITH Routine 01/01/2022 11:31 Hypertension And Resu lts for this MICROSCOPIC AM SWITCH CLEANER Chronic Kidney procedure are in Disease Stage 1 To 4 the results Chronic Kidney section. Disease Stage 4 Glomerular Filtration Rate 15-29 (HCC) documented in this encounter Results pH, Urine (01/01/2022 11:31 AM SWITCH CLEANER) P athologist Signature pH, U 5.8 4.5 - 8.0 01/01/2022 1:07 DTL PM SWITCH CLEANER Specimen Anatomical Collection Method Collection Time Receive d Time (Source) Location / / Volume Laterality Urine 01/01/2022 11:31 01/01/2022 AM SWITCH CLEANER 12:41 PM SWITCH CLEANER Karuna Poole APRN C.N.P., D.N.P. LAB URINE OR DERABLES Performing Organization Address City/[facility]/ZIP Code Phon e Number [facility] - [address] Osmolality, Urine (01/01/2022 11:31 AM SWITCH CLEANER) athologist Signature Osmolality, U 349 150 - 1150 01/01/2022 DTL mOsm/kg 1:07 PM SWITCH CLEANER Specimen Anatomical Collection Method Collection Time Receive d Time (Source) Location / / Volume Laterality Urine 01/01/2022 11:31 01/01/2022 AM SWITCH CLEANER 12:41 PM SWITCH CLEANER Karuna Poole APRN, C.N.P., D.N.P. LAB URINE OR DERABLES Performing Organization Address City/[facility] Code Phon e Number [facility] - [address] [place] [phone] [address] (ABNORMAL) Microscopic Automated (01/01/2022 11:31 AM SWITCH CLEANER) athologist Signature Microscopy Abnormal 01/01/2022 DTL 1:54 PM SWITCH CLEANER WBC 11-20 (A) /hpf 01/01/2022 DTL 1:54 PM SWITCH CLEANER Comment: ----REFERENCE VALUE---- 1-3 ??(Males) 1-10 (Females) Specimen Anatomical Collection Method Collection Time Receive d Time (Source) Location / / Volume Laterality Urine 01/01/2022 11:31 01/01/2022 AM SWITCH CLEANER 12:41 PM SWITCH CLEANER Karuna Poole APRN, C.N.P., D.N.P. LAB URINE OR DERABLES Performing Organization Address City/[facility]/ZIP Code Phon e Number [facility] - [address] [place] [phone] [address] [facility] [place] [address] Laboratories-[address] (ABNORMAL) Dipstick, Urine (01/01/2022 11:31 AM SWITCH CLEANER) [facility] [place] Method Time Signature Hemoglobin, Negative Negative 01/01/2022 DTL QL 1:54 PM SWITCH CLEANER Leukocyte Moderate (A) Negative 01/01/2022 DTL Esterase, U 1:54 PM SWITCH CLEANER Nitrite, U Negative Negative 01/01/2022 DTL 1:54 PM SWITCH CLEANER Ketones, U Negative Negative 01/01/2022 DTL mg/dL 1:54 PM SWITCH CLEANER Glucose, U Negative Negative 01/01/2022 DTL mg/dL 1:54 PM SWITCH CLEANER Specimen Anatomical Collection Method Collection Time Receive d Time (Source) Location / / Volume Laterality Urine 01/01/2022 11:31 01/01/2022 AM SWITCH CLEANER 12:41 PM SWITCH CLEANER Karuna Poole APRN, C.N.P., D.N.P. LAB URINE OR DERABLES Performing Organization Address City/State/ZIP Code Phon e Number [facility] - [address] [place] [address] [place] [id number] Laboratories-[address] Urinalysis with Microscopic: Urine, Midstream (01/01/2022 11:31 AM SWITCH CLEANER) [facility] [place] Method Time Signature Source Urine, Urine, 01/01/2022 DTL Midstream 12:40 PM SWITCH CLEANER Color, U Yellow 01/01/2022 DTL 12:41 PM SWITCH CLEANER Clarity, U Clear 01/01/2022 DTL 12:41 PM SWITCH CLEANER Protein, U 6 <26 mg/dL 01/01/2022 DTL 1:46 PM SWITCH CLEANER Protein/Osmol 0.17 <0.42 01/01/2022 DTL ality ratio 1:46 PM SWITCH CLEANER Predicted 24 135 mg/24 h 01/01/2022 DTL Hr Protein 1:46 PM SWITCH CLEANER Predicted 33-547 mg/24 h 01/01/2022 DTL Range 1:46 PM SWITCH CLEANER Specimen Anatomical Collection Method Collection Time Receive d Time (Source) Location / / Volume Laterality Urine (Urine, 01/01/2022 11:31 01/01/2022 Midstream) AM SWITCH CLEANER 12:40 PM SWITCH CLEANER Karuna Poole APRN C.N.P., D.N.P. LAB URINE OR DERABLES Performing Organization Address City/State/ZIP Code Phon e Number [facility] - [address] [place], [place] [address] [facility] [place] [address] Laboratories-[facility] [address] documented in this encounter Visit Diagnoses Diagnosis Hypertension And Chronic Kidney Disease Stage 1 To 4 Chronic Kidney Disease Stage 4 Glomerula r Filtration Rate 15-29 (HCC) documented in this encounter Additional Health Concerns Assessment Noted Time PHQ-9 Depression Total Score: 15 03/22/2021 12:16 PM C DT documented as of this encounter
--- OUTSIDE RECORDS SUMMARY | 2022-10-07 10:41 | XMS_ITS | Encounter Summary ---
:1935 Author Organization [facility] Address [address] [place] [address] Care Team Providers Name Role Phone Elsewhere, Pcp Primary Care Provider Unavailable Reason for Referral Outpatient (Routine) - Authorized Specialty Diagnoses / Procedures Referred By Contact Liliana maloney To Contact Dimple Bustos M.D. [address] [phone] Referral ID Status Reason Start Date Expiration Date Visits V isits Requested Authorized [id number] Authorized 03/28/2022 03/28/2023 1 1 Reason for Visit Outpatient (Routine) - Closed Specialty Diagnoses / Procedures Referred By Contact Liliana maloney To Contact Dimple Bustos M.D. [address] [phone] Referral ID Status Reason Start Date Expiration Date Visits Requ ested Visits Authorized [id number] Closed 09/17/2021 09/17/2022 1 1 Encounter Details Date Type Department Care Team Description 03/28/2022 Clinical Support Department of Leatha Romero M.D. [address] [place] [phone] Morbid Obesity Body Nutrition in [place] M.S., RDN, LD [address] [place] [address] Mass Index 40.0-44.9 [place], [place] Adult ([facility]) [address] [place] [address] Social History Tobacco Use Types Packs/Day Years [...] or relatives? How often do you attend shinto or 1 to 4 times per year 03/2022 scientologist services? Do you belong to any clubs or No 02/19/2022 organizations such as shinto groups, unions, fraternal or athletic groups, or [...] place to sleep or slept in a mcc (including now)? Education Answer Date Recorded What is the highest level of school Associate degree: magaly deal, 02/19/2022 you have completed or the highest technical, or vocational p wes degree you have received? Sex Assigned at Date Recorded Female 02/19/2022 7:48 AM CDT documented as of this encounter Progress Notes Ceci Guaman, JERRIN, LD - 03/28/2022 1:00 PM CDT CHIEF COMPLAINT/REASON FOR VISIT Nutrition-Weight Management Follow-Up Met with patient and ASSESSMENT Food/Nutrition Related History Previous goals set September 2021: 1. Continue to watch sodium -She continues to be very diligent with sodium intake 2. Limit meat/protein to 3-4 ox 2 times per day -She is able to stick to this amount most of the time Eating environment: They both do the cooking and grocery shopping. 2 times per month at fast food/restaurants. Food and beverage intake ?? Breakfast: oatmeal with raisins or blueberries or 2 eggs with toast or a bagel with peanut butterand a tiny honey ?? Morning Snack: none ?? Lunch: leftovers or a tuna/egg salad sandwich or a [employer] soy protei shake mixed with water ?? Afternoon Snack: none ?? Evening Meal: biggest meal of the day-rotisserie/baked chicken or fish or roast with salad or frozen vegetables ?? Night Snack: cake/banana bread and ice cream 3 nights per week Beverages: water, some Crystal Light, hot green tea Alcohol intake: none Physical activity: Vielka Yap reports this is limited but does have a Healthrider machine that she wants to get back to using more. Weight History Ht Readings from Last 1 Encounters: 03/28/22 164 cm Wt Readings from Last 1 Encounters: 03/28/22 120 kg BMI Readings from Last 1 Encounters: 03/28/22 44.58 kg/m?? 06/14/21: 118 kg 05/10/21: 121 kg 09/17/21: 115 kg Estimation of Nutritional Needs 1200 calories for weight loss NUTRITION DIAGNOSIS Overweight/Obesity related to imbalance between energy intake and energy expenditure as evidenced bypatient's intake, activity report, and BMI > 30 Nutrition Prescription/Recommendation Plate Method INTERVENTION Education: Weight Control See Patient Education Record for information regarding education materials covered today. MONITORING AND EVALUATION: Nutrition parameter to monitor: Weight Desired Outcome: establish healthy lifestyle changes; gradual weight reduction Patient Goal(s): 1. Use the Healthrider for 5 minutes per day, stand more within the house doing household activitiessuch as cleaning/cooking 2. Continue to use the Plate Method for portion control, increasing low potassium fruit/vegetable intake 3. Use small portions for treats 3 nights per week FOLLOW UP PLAN: Follow-up appointment needs to be scheduled (6 months) Time spent with patient (minutes): 40 documented in this encounter Plan of Treatment Scheduled Referrals Name Type Priority Associated Diagnoses Order S [facility] Nutrition office Outpatient Referral Routine Expe cted: visit (clinic) 09/28/2022 (Approximate), Expires: 06/28/2023 documented as of this encounter Visit Diagnoses Diagnosis Morbid Obesity Body Mass Index 40.0-44.9 Adult (HCC) documented in this encounter Additional Health Concerns Assessment Noted Time PHQ-9 Depression Total Score: 15 03/22/2021 12:16 PM C DT documented as of this encounter Care Teams Candy Vendor Relationship Specialty Start Date End Date Elsewhere, Pcp PCP - General Internal Medicine 03/26/22 documented as of this encounter
--- OUTSIDE RECORDS SUMMARY | 2022-10-07 10:41 | XMS_ITS | Encounter Summary ---
:1935 Author Organization [facility] Address [address] [place] [address] Care Team Providers Name Role Phone Unavailable Primary Care Provider Unavailable Reason for Visit Reason Comments Med Refill Encounter Details Date Type Department Care Team Description 01/28/2022 Refill Division of Endocrinology in [place] Valerio Med Refill [place], [place] Evette Boateng [address] [facility] [address] [place] [phone] [place], [place] [phone] (Wo rk) Social History Tobacco Use Types [...] or relatives? How often do you attend latter day or 1 to 4 times per year 03/2022 adventist services? Do you belong to any clubs or No 02/19/2022 organizations such as latter day groups, unions, fraternal or athletic groups, or [...] this encounter Miscellaneous Notes Telephone Encounter - Leatha Romero M.D. - 02/08/2022 12:28 PM CDT Additional refills should be completed by primary care physician. Telephone Encounter - Britney Schmid RGiacomo. - 02/06/2022 12:47 PM CDT Prescription renewal request did not meet nurse protocol because: request for renewal for which the provider-issued prescription did not authorize refills for one year. Prescription refill request sentto Endocrine provider for further review. Protocol utilized: Prescription Renewal Request for Medications: Division of Endocrinology, Diabetes, Metabolism and Nutrition. documented in this encounter Plan of Treatment Not on filedocumented as of this encounter Visit Diagnoses Not on filedocumented in this encounter Additional Health Concerns Assessment Noted Time PHQ-9 Depression Total Score: 15 03/22/2021 12:16 PM C DT documented as of this encounter
--- OUTSIDE RECORDS SUMMARY | 2022-10-07 10:41 | XMS_ITS | Encounter Summary ---
:1935 Author Organization [facility] Address [address] [place] [address] Care Team Providers Name Role Phone Unavailable Primary Care Provider Unavailable Encounter Details Date Type Department Care Team Description 01/01/2022 Hospital Encounter Department of Rehana Poole Chronic Kidney Disease (CKD) Stage 3b Glomerular Filtration Rate (GFR) 30 To 44 (HCC); Laboratory Medicine Karuna Stephens APRN, Chroni c Kidney Disease Stage 4 Glomerular Filtration Rate 15-29 (HCC) and Pathology, C.N.P., [facility] [place], [place] [address] [place] [address] Social History Tobacco Use Types Packs/Day Years [...] or relatives? How often do you attend caodaism or 1 to 4 times per year 03/2022 restoration services? Do you belong to any clubs or No 02/19/2022 organizations such as caodaism groups, unions, fraternal or athletic groups, or [...] by 0 120-180 mg capsule mouth daily. [place] 3 (strength unknown) esomeprazole (NexIUM) 20 Take [...] vitamin C/biotin Take 1 capsule by 0 ([id number], VIT mouth daily. C-BIOTIN, ORAL) VITAMIN K2 [...] Name Priority Date/Time Associated Diagnosis Comme nts ALBUMIN, RANDOM, U Routine 01/01/2022 11:32 Hypertensive Chron ic Results for this AM REELING MACHINE OPERATOR Kidney Disease (CKD) procedu re are in Stage 3b Glomerular the resu lts Filtration Rate (GFR) sectio n. 30 To 44 (HCC) Chronic Kidney Disease Stage 4 Glomerular Filtration Rate 15-29 (HCC) documented in this encounter Results (ABNORMAL) Albumin, Random, Urine (01/01/2022 11:32 AM REELING MACHINE OPERATOR) P athologist Signature Albumin, 8.4 mg/L 01/02/2022 DTL Random, U 1:12 PM REELING MACHINE OPERATOR Comment: ----ADDITIONAL INFORMATION---- This test has been modified from the man katlinr's instructions. Its performance characteri stics were determined by [facility] in a manner co nsistent with CLIA requirements. This test has not bee n cleared or approved by the U.S. Food and Drug Admin istration. Creatinine 29 mg/dL 01/02/2022 1:33 PM REELING MACHINE OPERATOR DTL Albumin/Creatinine Ratio 29 (H) <25 mg/g 01/02/2022 1:33 PM REELING MACHINE OPERATOR DTL Specimen Anatomical Collection Method Collection Time Receive d Time (Source) Location / / Volume Laterality Urine (Urine, 01/01/2022 11:32 01/02/2022 Midstream) AM REELING MACHINE OPERATOR 10:41 AM REELING MACHINE OPERATOR Karuna Poole APRN, C.N.P., D.N.P. LAB URINE OR DERABLES Performing Organization Address City/State/ZIP Code Phon e Number [facility] - [address] [place], [place] [address] [facility] [place] [address] Laboratories-[facility] [address] documented in this encounter Visit Diagnoses Diagnosis Hypertensive Chronic Kidney Disease (CKD ) Stage 3b Glomerular Filtration Rate (GFR) 30 To 44 (HCC) Chronic Kidney Disease Stage 4 Glomerula r Filtration Rate 15-29 (HCC) documented in this encounter Additional Health Concerns Assessment Noted Time PHQ-9 Depression Total Score: 15 03/22/2021 12:16 PM C DT documented as of this encounter
--- OUTSIDE RECORDS SUMMARY | 2022-10-07 10:41 | XMS_ITS | Encounter Summary ---
:1935 Author Organization [facility] Address [address] [place] [address] Care Team Providers Name Role Phone Unavailable Primary Care Provider Unavailable Reason for Referral Outpatient (Routine) - Closed Specialty Diagnoses / Procedures Referred By Contact Refer red To Contact Diagnoses Pain Joint Hand Left Pain Joint Hand Right Juanito Rodriguez M.D. [facility] Procedures DX Hand Bilateral 3+ Views [address] [place], [place] [phone] Referral ID Status Reason Start Date Expiration Date Visits Requ ested Visits Authorized [id number] Closed 12/26/2021 12/26/2022 1 1 CETYLENE BURNER Outpatient (Routine) - Closed Specialty Diagnoses / Procedures Referred By Contact Refer red To Contact Orthopedic Surgery Diagnoses Pain Joint Hand Left Pain Joint Hand Right Juanito Rodriguez [place] Anyi Alas [address] [place] [address] Referral ID Status Reason Start Date Expiration Date Visits Requ ested Visits Authorized [id number] Closed 12/26/2021 12/26/2022 1 1 Scheduling Instructions Ortho internal referral panel order, janel ging before Consult visit CETYLENE BURNER Encounter Details Date Type Department Care Team Description 12/26/2021 Orders Only Department of Physical Juanito Rodriguez Pain Joint Hand Left (Primary Dx); Medicine and Evette Tang Pain Joint Hand Right Rehabilitation in 200 [place], [place] 200 [facility] [phone] [place] [address] [phone] Social History Tobacco Use Types Packs/Day Years [...] or relatives? How often do you attend muslim or 1 to 4 times per year 03/2022 mosque services? Do you belong to any clubs or No 02/19/2022 organizations such as muslim groups, unions, fraternal or athletic groups, or [...] place to sleep or slept in a long-term (including now)? Education Answer Date Recorded What is the highest level of school you have completed or 12 th grade 03/22/2021 the highest degree you have received? Sex Assigned at Date Recorded Female 02/19/2022 7:48 AM CDT documented as of this encounter Plan of Treatment Scheduled Referrals Name Type Priority Associated Order Schedule Diagnoses Orthopedic Surgery - Outpatient Referral Routine Pain Joint Cho nd Expected: Wrist / hand non Left 12/26/2021 surgical consult Pain Joint Hand (Approxi mate), (clinic) Right Expires: 03/25/2023 documented as of this encounter Results DX Hand Bilateral 3+ Views (01/01/2022 11:56 AM OXYACETYLENE BURNER) Anatomical Region Laterality Modality Upper Extremity, Hand, Musculoskeletal RST LOS, Bilateral Digital Radiography Musculoskeletal ARZ LOS, Muskuloskeletal FLA LOS Specimen (Source) Anatomical Collection Method Collection Time Re ceived Time Location / / Volume Laterality 01/01/2022 11:57 AM OXYACETYLENE BURNER Impressions 01/01/2022 12:00 PM OXYACETYLENE BURNER Spotty demineralization. Old healed fracture deformity of [...] about both wrists. Narrative 01/01/2022 12:00 PM OXYACETYLENE BURNER EXAM: ??DX HAND BILATERAL 3+ VIEWS Procedure [...] Soft tissue swelling about both wrists. Juanito BACH [facility] DENYS FERMIN documented in this encounter Visit Diagnoses Diagnosis Pain Joint Hand Left - Primary Pain Joint Hand Right Pain Joint Hand Left Pain Joint Hand Right documented in this encounter Additional Health Concerns Assessment Noted Time PHQ-9 Depression Total Score: 15 03/22/2021 12:16 PM C DT documented as of this encounter
--- OUTSIDE RECORDS SUMMARY | 2022-10-07 10:41 | XMS_ITS | Encounter Summary ---
:1935 Author Organization [facility] Address [address] [place] [address] Care Team Providers Name Role Phone Unavailable Primary Care Provider Unavailable Encounter Details Date Type Department Care Team Description 01/01/2022 Hospital Encounter Department of Welllisandroitter, Hyperte nsion And Chronic Kidney Disease Stage 1 To 4; Laboratory Medicine Karuna Stephens APRN, Chroni c Kidney Disease Stage 4 Glomerular Filtration Rate 15-29 (HCC) and Pathology, C.N.P., D.N.P. [facility] in [place], [place] [address] [place] [address] Social History Tobacco Use Types Packs/Day Years [...] or relatives? How often do you attend hoahaoism or 1 to 4 times per year 03/2022 jew services? Do you belong to any clubs or No 02/19/2022 organizations such as hoahaoism groups, unions, fraternal or athletic groups, or [...] by 0 120-180 mg capsule mouth daily. [place] 3 (strength unknown) esomeprazole (NexIUM) 20 Take [...] vitamin C/biotin Take 1 capsule by 0 ([id number], VIT mouth daily. C-BIOTIN, ORAL) VITAMIN K2 [...] Name Priority Date/Time Associated Diagnosis Comme nts RENAL FUNCTION Routine 01/01/2022 11:03 Hypertension And Resul ts for this PANEL, S AM SHOPPER MARKETING MANAGER Chronic Kidney procedure are in Disease Stage 1 To 4 the results Chronic Kidney section. Disease Stage 4 Glomerular Filtration Rate 15-29 (HCC) CYSTATIN C WITH EGFR Routine 01/01/2022 11:03 Hypertension And Results for this AM SHOPPER MARKETING MANAGER Chronic Kidney procedure are in Disease Stage 1 To 4 the results Chronic Kidney section. Disease Stage 4 Glomerular Filtration Rate 15-29 (HCC) CBC WITHOUT Routine 01/01/2022 11:03 Hypertension And Results for this DIFFERENTIAL, B AM SHOPPER MARKETING MANAGER Chronic Kidney procedure are in Disease Stage 1 To 4 the results Chronic Kidney section. Disease Stage 4 Glomerular Filtration Rate 15-29 (HCC) URIC ACID, S/P Routine 01/01/2022 11:03 Hypertension And Resul ts for this AM SHOPPER MARKETING MANAGER Chronic Kidney procedure are in Disease Stage 1 To 4 the results Chronic Kidney section. Disease Stage 4 Glomerular Filtration Rate 15-29 (HCC) PARATHYROID HORMONE Routine 01/01/2022 11:03 Hypertension And Results for this (PTH), S AM SHOPPER MARKETING MANAGER Chronic Kidney procedure are in Disease Stage 1 To 4 the results Chronic Kidney section. Disease Stage 4 Glomerular Filtration Rate 15-29 (HCC) documented in this encounter Results (ABNORMAL) Uric Acid (01/01/2022 11:03 AM SHOPPER MARKETING MANAGER) athologist Signature Uric Acid, S 7.1 (H) 2.7 - 6.1 01/01/2022 DTL mg/dL 12:10 PM SHOPPER MARKETING MANAGER Specimen Anatomical Collection Method Collection Time Receive d Time (Source) Location / / Volume Laterality Blood (Blood, 01/01/2022 11:03 01/01/2022 Venous) AM SHOPPER MARKETING MANAGER 11:40 AM SHOPPER MARKETING MANAGER Karuna Poole APRN, C.N.P., D.N.P. LAB BLOOD AD D-ON Performing Organization Address City/State/ZIP Code Phon e Number [facility] - [address] [place], [place] [address] [facility] [place] [address] Laboratories-[facility] [address] (ABNORMAL) Cystatin C with Estimated GFR, S (01/01/2022 11:03 AM SHOPPER MARKETING MANAGER) athologist [facility] eGFR by 28 (L) >60 01/01/2022 DTL Cystatin C mL/min/BSA 12:09 PM SHOPPER MARKETING MANAGER Comment: Estimated GFR calculated using the CKD-E [...] lower with the new assay. Cystatin C 1.88 (H) 0.67 - 1.21 mg/L 01/01/2022 12:09 PM CS T DTL Specimen Anatomical Collection Method Collection Time Receive d Time (Source) Location / / Volume Laterality Blood (Blood, 01/01/2022 11:03 01/01/2022 Venous) AM SHOPPER MARKETING MANAGER 11:41 AM SHOPPER MARKETING MANAGER Karuna Poole APRN, C.N.P., D.N.P. LAB BLOOD AD D-ON Performing Organization Address City/[facility] Phon e Number [facility] - [address] [place] [address] Laboratories-[address] Parathyroid Hormone (PTH) (01/01/2022 11:03 AM SHOPPER MARKETING MANAGER) P athologist Signature Parathyroid 55 15 - 65 01/01/2022 DTL Hormone (PTH), S pg/mL 12:10 PM SHOPPER MARKETING MANAGER Specimen Anatomical Collection Method Collection Time Receive d Time (Source) Location / / Volume Laterality Blood (Blood, 01/01/2022 11:03 01/01/2022 Venous) AM SHOPPER MARKETING MANAGER 11:40 AM SHOPPER MARKETING MANAGER Karuna Stephens Kitty Poole APRN.N.P., D.N.P. LAB BLOOD AD D-ON Performing Organization Address [facility] Phon e Number [facility] - [address] [place] [address] Laboratories-[address] (ABNORMAL) Renal Function Panel (01/01/2022 11:03 AM SHOPPER MARKETING MANAGER) Analysis Performed At Patho logist Time Signature Potassium, S 4.8 3.6 - 5.2 01/01/2022 DTL mmol/L 12:09 PM SHOPPER MARKETING MANAGER Sodium, S 141 135 - 145 01/01/2022 DTL mmol/L 12:09 PM SHOPPER MARKETING MANAGER Chloride, S 105 98 - 107 01/01/2022 DTL mmol/L 12:09 PM SHOPPER MARKETING MANAGER Bicarbonate, S 26 22 - 29 01/01/2022 DTL mmol/L 12:09 PM SHOPPER MARKETING MANAGER Anion Gap 10 7 - 15 01/01/2022 DTL 12:09 PM SHOPPER MARKETING MANAGER BUN (Blood Urea 37 (H) 6 - 21 01/01/2022 DTL Nitrogen), S mg/dL 12:09 PM SHOPPER MARKETING MANAGER Creatinine 1.42 (H) 0.59 - 01/01/2022 DTL 1.04 mg/dL 12:09 PM SHOPPER MARKETING MANAGER eGFR-Non 34 (L) >=60 01/01/2022 DTL Black/ mL/min/BSA 12:09 PM SHOPPER MARKETING MANAGER [place] Comment: ----ADDITIONAL INFORMATION---- Estimated GFR calculated using the 2009 CKD_EPI creatinine equation. eGFR-Black/ 39 (L) >=60 mL/min/BSA 2021 12:09 PM SHOPPER MARKETING MANAGER DTL Comment: ----ADDITIONAL INFORMATION---- Estimated GFR calculated using the 2009 CKD_EPI creatinine equation. Calcium, Total, S 9.8 8.8 - 10.2 mg/dL 01/01/2022 12:0 9 PM SHOPPER MARKETING MANAGER DTL Glucose, S 90 70 - 140 mg/dL 01/01/2022 12:09 PM SHOPPER MARKETING MANAGER DTL Albumin, S 4.4 3.5 - 5.0 g/dL 01/01/2022 12:09 PM SHOPPER MARKETING MANAGER DTL Phosphorus (Inorganic), S 3.6 2.5 - 4.5 mg/dL 01/01/20 12:09 PM SHOPPER MARKETING MANAGER DTL Specimen Anatomical Collection Method Collection Time Receive d Time (Source) Location / / Volume Laterality Blood (Blood, 01/01/2022 11:03 01/01/2022 Venous) AM SHOPPER MARKETING MANAGER 11:41 AM SHOPPER MARKETING MANAGER Karuna Poole APRN, C.N.P., D.N.P. LAB BLOOD AD D-ON Performing Organization Address City/State/ZIP Code Phon e Number [facility] - [address] [place] [address] [facility] [address] Laboratories-[facility] 200 [facility] CBC without Differential (01/01/2022 11:03 AM SHOPPER MARKETING MANAGER) P athologist Signature Hemoglobin 11.9 11.6 - 01/01/2022 DTL 15.0 g/dL 11:38 AM SHOPPER MARKETING MANAGER Hematocrit 37.6 35.5 - 01/01/2022 DTL 44.9 % 11:38 AM SHOPPER MARKETING MANAGER Erythrocytes 4.07 3.92 - 01/01/2022 DTL 5.13 11:38 AM SHOPPER MARKETING MANAGER x10(12)/L MCV 92.4 78.2 - 01/01/2022 DTL 97.9 fL 11:38 AM SHOPPER MARKETING MANAGER RBC Distrib Width 12.9 12.2 - 01/01/2022 DTL 16.1 % 11:38 AM SHOPPER MARKETING MANAGER Platelet Count 183 157 - 371 01/01/2022 DTL x10(9)/L 11:38 AM SHOPPER MARKETING MANAGER Leukocytes 5.5 3.4 - 9.6 01/01/2022 DTL x10(9)/L 11:38 AM SHOPPER MARKETING MANAGER Specimen Anatomical Collection Method Collection Time Receive d Time (Source) Location / / Volume Laterality Blood (Blood, 01/01/2022 11:03 01/01/2022 Venous) AM SHOPPER MARKETING MANAGER 11:26 AM SHOPPER MARKETING MANAGER Karuna Poole APRN, C.N.P., D.N.P. LAB BLOOD AD D-ON Performing Organization Address City/State/ZIP Code Phon e Number [facility] - [address] [place], [place] [address] [facility] [place] [address] Laboratories-[facility] [address] documented in this encounter Visit Diagnoses Diagnosis Hypertension And Chronic Kidney Disease Stage 1 To 4 Chronic Kidney Disease Stage 4 Glomerula r Filtration Rate 15-29 (HCC) documented in this encounter Additional Health Concerns Assessment Noted Time PHQ-9 Depression Total Score: 15 03/22/2021 12:16 PM C DT documented as of this encounter
--- OUTSIDE RECORDS SUMMARY | 2022-10-07 10:41 | XMS_ITS | Encounter Summary ---
:[address] [facility] Address [address] [place] [address] Care Team Providers Name Role Phone Elsewhere, Pcp Primary Care Provider Unavailable Reason for Referral MRI/CAT/PET Scan (Routine) - Closed Specialty Diagnoses / Procedures Referred By Contact Refer red To Contact Radiology Diagnoses Pain Joint Hand Left Pain Joint Hand Right Arthritis Swelling Joint Lucía Aponte M.D. [facility] Procedures CT Hand Right Dual Energy without IV Contrast [address] [place], [place] [address] Referral ID Status Reason Start Date Expiration Date Visits Requ ested Visits Authorized [id number] Closed 02/19/2022 02/19/2023 1 1 Reason for Visit MRI/CAT/PET Scan (Routine) - Closed Specialty Diagnoses / Procedures Referred By Contact Refer red To Contact Radiology Diagnoses Pain Joint Hand Left Pain Joint Hand Right Arthritis Swelling Joint Lucía Aponte M.D. [facility] Procedures CT Hand Right Dual Energy without IV Contrast [address] [place] [address] Referral ID Status Reason Start Date Expiration Date Visits Requ ested Visits Authorized [id number] Closed 02/19/2022 02/19/2023 1 1 Encounter Details Date Type Department Care Team Description 03/28/2022 Hospital Encounter Department of Lucía Aponte Pain J oint Hand Left; Radiology, Julian Alas Pain Joint Hand Right; Building, in [address] [facility] Arthritis; [place], [place] Swelling Joint [address] [facility] [address] [place], [place] [phone] (Work) [phone] Social History Tobacco Use Types Packs/Day Years [...] 1 to 4 times per year 03/2022 sabianist services? Do you belong to any clubs [...] by 0 120-180 mg capsule mouth daily. [place] 3 (strength unknown) esomeprazole (NexIUM) 20 Take [...] vitamin C/biotin Take 1 capsule by 0 ([id number]-SMAZA, VIT mouth daily. C-BIOTIN, ORAL) VITAMIN K2 [...] Procedure Name Priority Date/Time Associated Comments Diagnosis CT HAND RIGHT RAD - Routine 03/28/2022 2:51 Pain Joint Hand Results for this DUAL ENERGY (most inpatients PM CDT Left procedure are in WITHOUT IV and all Pain Joint Hand the results CONTRAST outpatients) Right section. Arthritis Swelling Joint documented in this encounter Results CT Hand Right Dual Energy without IV [...] in the pisotriquetral recess. Lucía Aponte M.D. IMG CT PROCEDURES documented in this encounter Visit Diagnoses Diagnosis Pain Joint Hand Left Pain Joint Hand Right Arthritis Swelling Joint documented in this encounter Additional Health Concerns Assessment Noted Time PHQ-9 Depression Total Score: 15 03/22/2021 12:16 PM C DT documented as of this encounter Care Teams Needle Loom Weaver Relationship Specialty Start Date End Date Elsewhere, Pcp PCP - General Internal Medicine 03/26/22 documented as of this encounter
--- OUTSIDE RECORDS SUMMARY | 2022-10-07 10:41 | XMS_ITS | Encounter Summary ---
:1935 Author Organization [facility] Address [address] [place] [address] Care Team Providers Name Role Phone Elsewhere, Pcp Primary Care Provider Unavailable Reason for Visit Outpatient (Routine) - Closed Specialty Diagnoses / Procedures Referred By Contact Refer red To Contact Sleep [place] Pavon M.D. [place] [address] [place] [phone] Referral ID Status Reason Start Date Expiration Date Visits Requ ested Visits Authorized [id number] Closed 06/14/2021 06/14/2022 1 1 Encounter Details Date Type Department Care Team Description 03/28/2022 [facility] Visit [facility] Sammy Reno, Apnea Slee p Medicine in [place] Ruiz Obstructive (Primary [place] [address] [place] [address] Dx) [address] [place] [phone] Social History Tobacco Use Types Packs/Day Years [...] 1 to 4 times per year 03/2022 taoist services? Do you belong to any clubs [...] or the highest technical, or vocational p muscogeenigel degree you have received? Sex Assigned at Date Recorded Female 02/19/2022 7:48 AM CDT documented as of this encounter Progress Notes Sammy Reno M.D. - 03/28/2022 4:30 PM CDT Images from the original note were not included. ROUTINE CPAP RETURN VITAL SIGNS Wt Readings from Last 3 Encounters: 03/28/22 120 kg 01/01/22 121 kg 09/28/21 118 kg BP Readings from Last 3 Encounters: 03/28/22 149/82 09/17/21 140/62 08/15/21 153/65 Pulse Readings from Last 3 Encounters: 03/28/22 73 09/17/21 68 08/15/21 66 Current Outpatient Medications: ??? acetaminophen (TYLENOL) 500 mg capsule, Take 1,000 mg by mouth every 6 (six) hours as needed., Disp: , Rfl: ??? allopurinoL (ZYLOPRIM) 100 mg tablet, TAKE 1/2 TABLET(50 MG) BY MOUTH 3 TIMES A WEEK, Disp: 18 tablet, Rfl: 1 ??? buPROPion XL (WELLBUTRIN XL) 300 mg 24 hr tablet, Take 300 mg by mouth daily. , Disp: , Rfl: ??? coenzyme Q10 (CO Q-10) 200 mg capsule, Take 200 mg by mouth daily., Disp: , Rfl: ??? collagen, hydrolysate, bovine, (collagen, hydr, bovine,, bulk,) 100 % powder, daily., Disp: , Rfl: ??? DME CPAP, DME Order, Disp: 1 Device, Rfl: 0 ??? docosahexaenoic acid-epa 120-180 mg capsule, Take 2 capsules by mouth daily. [place] 3 (strength unknown) , Disp: , Rfl: ??? esomeprazole (NexIUM) [address] capsule, Take 20 mg by mouth as needed. Hardly ever, Disp: , Rfl: ??? furosemide (LASIX) 20 mg tablet, Take 1 tablet (20 mg total) by mouth daily. (Patient taking differently: Take 20 mg by mouth as needed.), Disp: 90 tablet, Rfl: 3 ??? GLUTATHIONE MISC, Take 1 capsule by mouth daily. (strength unknown) , Disp: , Rfl: ??? ketoconazole (NIZORAL) 2 % cream, Apply 1 application topically 2 (two) times a day. Apply to right lateral abdomen twice daily for 4 weeks (Patient taking differently: Apply 1 application topically as needed. Apply to right lateral abdomen twice daily for 4 weeks), Disp: 30 g, Rfl: 1 ??? Lactobacillus acidophilus (PROBIOTIC ORAL), Take by mouth daily. Friendly Sera, Disp: , Rfl: ??? levothyroxine (SYNTHROID, LEVOTHROID) 25 mcg tablet, Take 25 mcg by mouth daily., Disp: , Rfl: ??? lidocaine (LMX) 4 % cream, Apply 1 application topically 3 (three) times a day as needed for pain., Disp: 30 g, Rfl: 3 ??? lisinopril-hydroCHLOROthiazide (PRINZIDE,ZESTORETIC) 20-12.5 mg per tablet, Take 1 tablet by mouth daily., Disp: , Rfl: ??? psyllium seed, with sugar, (FIBER ORAL), Take 2 each by mouth daily. Fibermucil capsule, Disp: ,Rfl: ??? sennosides (SENNA LAX ORAL), Take 1 tablet by mouth as needed., Disp: , Rfl: ??? simvastatin (ZOCOR) 20 mg tablet, every other day., Disp: , Rfl: ??? UNABLE TO FIND MIXTURE ADDITIVE, as needed. Med Name: CBD cream, Disp: , Rfl: ??? UNABLE TO FIND, Nopalea juice - 1 shot daily, Disp: , Rfl: ??? UNABLE TO FIND, Med Name: Serovital Advanced, Disp: , Rfl: ??? UNABLE TO FIND, Take 1 each by mouth daily. Med Name: Turmeric, Disp: , Rfl: ??? UNABLE TO FIND, daily. Circulation and vein support for healthy legs, Disp: , Rfl: ??? vitamin C/biotin (GBXQ-SERV-WUPMN, VIT C-BIOTIN, ORAL), Take 1 capsule by mouth daily., Disp: , Rfl: ??? VITAMIN K2 ORAL, Take 1 capsule by mouth daily. 120 mcg, Disp: , Rfl: ??? ZINC ACETATE ORAL, Take 50 mg by mouth daily. , Disp: , Rfl: ASSESSMENT / PLAN #1 Obstructive sleep apnea diagnosed elsewhere with CPAP intolerance Ms. Yap is a 86 y.o. white female from near [facility] who was last here and visited with Dr. Mark Pavon on 06/14/2021 with her tage 2014 AirSense 10 AutoSet device. At that time she was showing median nightly use of around 3 hours despite resolution of the sleep disordered breathing and trivial mask leak. She was set in the APAP mode at high pressures of 10-16 cm H2O. She apparently was diagnosed with [place] at an outside institution around 1969. She then reported underwent repeat study in 1989, 2004, 2006, and 2014. She gets her supplies at the [facility] and I was able to find her information from the local [facility] here in [place] which shewould prefer to use. They have a record and reported that her original qualifying study was 09/24/2005 with an overall AHI of 15 per hour. She was able to markedly improve her compliance and her download now reveals an average usage of 6 hours and 12 minutes not having missed a single day of the last 71 days. She clearly sees the benefit of continued use and the only thing it was clear that had to be adjusted was her clock which was 4-one/2 hours off. She has pain and incontinence that explains her frequent removal and replacement of the device during a night but she certainly has adequate time on. I provided her with a replacement device prescription with an APAP setting as above 10-16 cm H2O with the fullface mask of choice. She is using the Simplus mask but the inner rubber mask peace keeps falling off and needs replacement. We will see her in the future on an as-needed basis. #2 History of right lower leg/foot DVT #3 Hypertension #4 Chronic kidney disease stage 4 #5 Mildly atrophic left kidney #6 Class 3 Obesity with BMI at 44.6 kg/M2 Total time: 30 minutes. documented in this encounter Plan of Treatment Not on filedocumented as of this encounter Visit Diagnoses Diagnosis Apnea Sleep Obstructive - Primary documented in this encounter Additional Health Concerns Assessment Noted Time PHQ-9 Depression Total Score: 15 03/22/2021 12:16 PM C DT documented as of this encounter Care Teams Tape Rules Printing Machine Operator Relationship Specialty Start Date End Date Elsewhere, Pcp PCP - General Internal Medicine 03/26/22 documented as of this encounter
--- OUTSIDE RECORDS SUMMARY | 2022-10-07 10:41 | XMS_ITS | Encounter Summary ---
:1935 Author Organization [facility] Address [address] [place] [address] Care Team Providers Name Role Phone Elsewhere, Pcp Primary Care Provider Unavailable Reason for Visit Outpatient (Routine) - Closed Specialty Diagnoses / Procedures Referred By Contact Refer red To Contact Endocrinology Leatha Romero [facility] [facility] [place] M.D. [address] [place], [place] [phone] Referral ID Status Reason Start Date Expiration Date Visits Requ ested Visits Authorized [id number] Closed 09/28/2021 09/28/2022 1 1 Encounter Details Date Type Department Care Team Description 03/28/2022 Office Visit Division of Nick Cold Intoler ance (Primary Dx); Endocrinology Leatha william M.D. Morbid Obesity Body Mass Index 40.0-44.9 Adult (HCC); [place], [place] [address] [facility] Hypertensive Chronic Kidney Disease (CKD ) Stage 3b Glomerular Filtration Rate (GFR) 30 To 44 [address] [place] [phone] Social History Tobacco Use Types Packs/Day Years [...] or relatives? How often do you attend baptist or 1 to 4 times per year 03/2022 evangelical services? Do you belong to any clubs or No 02/19/2022 organizations such as baptist groups, unions, [employer] or athletic groups, or school groups? How [...] highest level of school Associate degree: magaly deal 02/19/2022 you have completed or the highest technical, or vocational p wes degree you have received? Sex Assigned at Date Recorded Female 02/19/2022 7:48 AM CDT documented as of this encounter Last Filed Vital Signs Vital Sign Reading Time Taken Comments Blood Pressure 149/82 03/28/2022 10:29 AM CDT Pulse 73 03/28/2022 10:29 AM CDT Temperature - - Respiratory Rate - - Oxygen Saturation - - Inhaled Oxygen Concentration - - Weight 120 kg (264 lb 5.3 oz) 03/28/2022 10:29 AM CDT Height 164 cm (5' 4.57) 03/28/2022 10:29 AM CDT Body Mass Index 44.58 03/28/2022 10:29 AM CDT documented in this encounter Progress Notes Leatha Romero M.D. - 03/28/2022 11:00 AM CDT SUBJECTIVE CHIEF COMPLAINT/REASON FOR VISIT Weight management. HISTORY OF PRESENT ILLNESS Vielka Yap is a 86 y.o. female who I am seeing in follow-up for treatment of obesity. She continues to work on her eating habits but has noticed variability in her weight often related to the presence of swelling or not. She continues to be quite limited in her mobility and at risk for falls. She does own a health Ryderwhich she can use safely while sitting mainly paddleling. But she has not been using it consistently. During her visit she complains of cold intolerance. She has also been noticing some right thigh painduring the night that awakens her. She has been managing it with CBD cream. She is scheduled to visit with the dietitian today. She has several other appointments scheduled. Weight at consultation: 121 kg Weight today: Wt 120 kg Weight loss: 1 kg The following portions of the patient's history were reviewed and updated as appropriate: current medications, medical history, surgical history and problem list. REVIEW OF SYSTEMS Per HPI. OBJECTIVE VITAL SIGNS Vitals: 03/28/22 1029 BP: 149/82 Pulse: 73 Ht 164 cm Wt 120 kg Body mass index is 44.58 kg/m??. PHYSICAL EXAMINATION General Appearance: alert, no distress, ambulates with a wheelchair.. DIAGNOSTICS Laboratory tests reviewed. ASSESSMENT / PLAN #1 Cold Intolerance #2 Obesity Body Mass Index 40.0-44.9 Adult ([facility]) #3 Hypertensive Chronic Kidney Disease (CKD) Stage 3b Glomerular Filtration Rate (GFR) 30 To 44 Her efforts have been associated with mainly weight stability. In view of her immobility and likely decreased metabolic rate this is actually a good result. I will continue to support her efforts at dietary change. She is scheduled to visit with the dietitian later today. We again discussed ways for her to gradually be more active. She rarely ambulates outside of her home and when she does is with a wheelchair. I did encourage her to start using her health rider for about 5 minutes once or twice per day. In regards to medical therapies, I have considered GLP 1 analogs in the past. These are not covered for her and they quite costly. I will reach out to Dr. Catherine from Nephrology to explore SGL T2 inhibitors. Dapagliflozin is covered for her. This can provide protection against progression of her renal dysfunction and it can alsopromote weight loss. In regards to her cold intolerance, her TSH last year was slightly elevated. I will recheck. I will communicate with her once I hear back from Dr. Catherine and with the laboratory test results if indeed we need to make any changes to the current plan. Otherwise I would keep seeing her every 4-6 months to assess her progress. Weight loss expectations are slow. I personally spent over half of a total 30 minutes in counseling and discussion with the patient andcoordination of care as described above. documented in this encounter Plan of Treatment Not on filedocumented as of this encounter Results S-TSH (Thyroid-Stimulating Hormone - [...] Organization Address City/State/ZIP Code Phon e Number [facility] - [address] [place], [place] [address] [facility] [place] [address] [facility] [address] documented in this encounter Visit Diagnoses Diagnosis Cold Intolerance - Primary Morbid Obesity Body Mass Index 40.0-44.9 Adult (HCC) Hypertensive Chronic Kidney Disease (CKD ) Stage 3b Glomerular Filtration Rate (GFR) 30 To 44 (HCC) documented in this encounter Additional Health Concerns Assessment Noted Time PHQ-9 Depression Total Score: 15 03/22/2021 12:16 PM C DT documented as of this encounter Care Teams Phototypesetter Operator Relationship Specialty Start Date End Date Elsewhere, Pcp PCP - General Internal Medicine 03/26/22 documented as of this encounter
--- OUTSIDE RECORDS SUMMARY | 2022-10-07 10:41 | XMS_ITS | Encounter Summary ---
:1935 Author Organization [facility] Address [address] [place] [address] Care Team Providers Name Role Phone Unavailable Primary Care Provider Unavailable Reason for Visit Reason Comments Med Refill Encounter Details Date Type Department Care Team Description 01/27/2022 Refill Division of Endocrinology in [place] Valerio Med Refill [place], [place] Evette Boateng [address] [facility] [address] [place] [address] [place], [place] [phone] (Wo rk) Social History Tobacco Use Types [...] 1 to 4 times per year 03/2022 spiritism services? Do you belong to any clubs [...] this encounter Miscellaneous Notes Telephone Encounter - Britney Schmid RSharonN. - 02/06/2022 9:04 AM CDT Prescription renewal request did not meet [...]
--- OUTSIDE RECORDS SUMMARY | 2022-10-07 10:41 | XMS_ITS | Encounter Summary ---
:1935 Author Organization [facility] Address [address] [place] [address] Care Team Providers Name Role Phone Unavailable Primary Care Provider Unavailable Reason for Referral Specialty Diagnoses / Procedures Referred By Contact Refer red To Contact [facility] C.[facility] D.N.P. [address] [place] [phone] Referral ID Status Reason Start Date Expiration Date Visits Requ ested Visits Authorized utpatient (Routine) - Closed Specialty Diagnoses / Referred By Contact Referred To Contact Procedures Nephrology and Nena Alofnso [facility] RYANN Corley, C.N.P., D.N.P. [address] [place] [phone] Referral ID Status Reason Start Date Expiration Date Visits Requ ested Visits Authorized [id number] Closed 01/01/2022 01/01/2023 1 1 IFIED CODER Reason for Visit Outpatient (Routine) - Closed Specialty Diagnoses / Procedures Referred By Contact Refer red To Contact Nephrology and Diagnoses Hypertension And Chronic Kidney Disease Stage 1 To 4 Chronic Kidney Disease Stage 4 Glomerular Filtration Rate 15-[address]) Karuna Poole [facility] Hypertension RYANN Stephens C.N.P., D.N.P. [address] [place] [address] Referral ID Status Reason Start Date Expiration Date Visits Requ ested Visits Authorized [id number] Closed 09/17/2021 09/17/2022 1 1 Encounter Details Date Type Department Care Team Description 01/01/2022 Office Visit Division of Nephrology Naty, Hyper tension And Chronic Kidney Disease Stage 1 To 4; and Hypertension in Nenakay Corley APRN, Ch ronic Kidney Disease Stage 4 Glomerular Filtration Rate 15-[address] ([facility]) [place], [place] C.N.P., D.N.P. [address] [place] [phone] Social History Tobacco Use Types Packs/Day Years [...] or relatives? How often do you attend synagogue or 1 to 4 times per year 03/2022 episcopal services? Do you belong to any clubs or No 02/19/2022 organizations such as synagogue groups, unions, fraternal or athletic groups, or [...] place to sleep or slept in a intermediate (including now)? Education Answer Date Recorded What is the highest level of school you have completed or 12 th grade 03/22/2021 the highest degree you have received? Sex Assigned at Date Recorded Female 02/19/2022 7:48 AM CDT documented as of this encounter Last Filed Vital Signs Vital Sign Reading Time Taken Comments Blood Pressure - - Pulse - - Temperature 35.6 ??C (96.1 ??F) 01/01/2022 2:15 PM CERTIFIED CODER Respiratory Rate - - Oxygen Saturation - - Inhaled Oxygen Concentration - - Weight 121 kg (265 lb 14 oz) 01/01/2022 2:15 PM CERTIFIED CODER Height - - Body Mass Index 43.77 09/28/2021 11:26 AM CERTIFIED CODER documented in this encounter Patient Instructions Patient InstructionsNena Alfonso APRN, C.N.P., D.N.P. - 01/01/2022 2:30 PM CST Please remember to avoid taking NSAIDS (such as ibuprofen, naproxen, ketorolac, indomethacin, nabumetone) as these medications may affect your kidney function. Should you receive medications from a doctor, please remind them of your kidney disease and ask thatthey check the appropriate dose for you. Your medications should be dosed for an eGFR of 28 mL/min/1.73 m2. Please remember that contrast dye [...] Contact the [facility] at [phone] if you have concerns regarding your kidneyor high blood pressure care. Please use our fax number #[phone] if you are requested by your kidney health care provider to fax in any test results. Please work with your primary care provider to ensure your up to date on all your immunizations. IFIED CODER documented in this encounter Progress Notes Nena Alfonso APRN, C.N.P., Dereck.N.P. - 01/01/2022 2:30 PM CST Subjective: Chief Complaint/Reason for Visit Chronic Kidney Disease History of Present Illness: Ms. Yap is a 86 y.o. female who presents for ongoing evaluation of chronic kidney disease. She has now been enrolled in the CKD clinic. She has a longstanding history of hypertension diagnosed more than 10 years ago. She does not have history of diabetes. She has chronic use of NSAIDs, she used to take Aleve for many years and stopped taking it 2.5 years ago, however she switched to Celebrex 200 mg twice a day that she had been takingfor the last 1.5 years. She has chronic knee and hip pains, and hand osteoarthritis. She did have anx-ray of her hands today, this was briefly reviewed with the patient describing arthritis. Currentlyshleticia is taking Tylenol for this, having discontinued Celebrex as she understood this could be harmfulfor her kidneys. She feels Tylenol is giving adequate relief. She has chronic lower extremity edema that is related to venous stasis, and she follows in the lymphedema Clinic for that. She continues with wraps and compression stockings. She feels the swelling is worse of the right leg. Her appetite is quite good, denies nausea, vomiting, diarrhea or constipation. She eats 3-4 servingsof protein per day in her estimation. She is not physically active, and is hopeful to improve her physical activity. Her weight is up near25 lb, she feels some of the weight is due to lower extremity edema. She denies shortness of breath or chest discomfort. She denies breakdown of the skin on her lower extremities. She feels her urine output is within normal, and the appearance of the urine is also normal. Review of Systems Constitutional: Positive for weight loss of more than 10 pounds. Cardiovascular: Positive for swelling in the legs or feet. The following systems were negative: GI, She reports she has fallen 3 times at home in the past few months. She lives with her . Objective: Constitutional Appearance: Normal appearance. She is normal weight. Cardiovascular Rate and Rhythm: Normal rate and regular rhythm. Pulmonary Effort: Pulmonary effort is normal. Breath sounds: Normal breath sounds. Musculoskeletal Right lower leg: Edema present. Left lower leg: Edema present. Neurological Mental Status: She is alert. Vitals: 01/01/22 1415 Temp: (!) 35.6 ??C TempSrc: Tympanic PainSc: 0-No pain BP 142/76; pulse 60 Weight 120.6 kg Assessment/Plan: #1 Chronic kidney Disease (CKD) stage 4, secondary to NSAID use, and atrophic left kidney. GFR is 34 mL/min. BUN is 37 mg/dL. She does not display signs of uremia today. Signs and symptoms of uremia reviewed. Her kidney function is quite stable with creatinine of 1.4, and GFR unchanged from previously. Urinalysis is bland. #2 CKD treatment options Kidney Transplant:Not transplant candidate due to: age #3 Hypertension She has been taking Prinzide 20-12.5 mg daily. We will initiate Lasix 20 mg each morning to decreaseblood pressure and lymphedema of lower extremities. We reviewed that her creatinine may increase slightly, and we will watch this closely. She will add more potassium foods to her diet, as she has been restricting these. The booklet on potassium foods was reviewed with the patient. She will happily incorporate more of these into her diet. #4 Anemia Screening Hemoglobin 11.9, does not require YULIANA or iron supplementation at this time. #5 Hyperparathyroidism screening Calcium: at goal. I note she reports taking calcium supplements previously, has discontinued these. Phosphorus: at goal Phosphate Binder: Not needed Parathyroid Hormone: at goal of 55 Vitamin D Therapy: Not needed #6 Metabolic acidosis screening Bicarbonate Therapy: Not needed as bicarb acceptable at 26. #7 Gout Uric acid 7.0. This is decreased from previously. She will continue allopurinol 3 times weekly. She reports rare gout discomfort since initiating this medication. Follow-up: [facility], 3 months IFIED CODER documented in this encounter Plan of Treatment Scheduled Referrals Name Type Priority Associated Order Schedule Diagnoses Nephrology and Outpatient Referral Routine Expect ed: Hypertension office 03/31/20, visit (clinic) Expires: 03/30/2023 Patient Education - Outpatient Referral Routine Chronic Kidney Expected: Keeping your kidneys Disease Stage 4 03/17, healthy education Glomerular Expires: visit (clinic) (RST Filtration Rate 03/30 Only) 15-29 (HCC) documented as of this encounter Results (ABNORMAL) Albumin, Random, Urine (04/23/2022 10:54 AM CDT) athologist Signature Albumin, 35.7 mg/L 04/23/2022 DTL Random, U 1:55 PM CDT Comment: ----ADDITIONAL INFORMATION---- This test has been modified from the scott dalalr's instructions. Its performance characteri stics were determined by [facility] in a manner co nsistent [...] City/State/ZIP Code Phon e Number [facility] - [address] [place], [place] [address] [facility] [place] [place] [address] Urinalysis with Microscopic: Urine, Midstream (04/23/2022 [...] Organization Address City/State/ZIP Code Phon e Number [address] [address] [facility] [place] [place] [address] (ABNORMAL) Uric Acid (04/23/2022 10:43 AM CDT) P athologist Signature Uric Acid, S 8.5 (H) 2.7 - 6.1 04/23/2022 DTL mg/dL 11:58 AM CDT Specimen Anatomical Collection Method Collection Time Receive d Time (Source) Location / / Volume Laterality Blood (Blood, 04/23/2022 10:43 04/23/2022 Venous) AM CDT 11:29 AM CDT Nena Alfonso APRN, C.N.P., D.N.P. LAB BLOOD A DD-ON Performing Organization Address City/State/ZIP Code Phon e Number [facility] - [address] [place], [place] [address] [facility] [place] [address] Laboratories-[address] (ABNORMAL) Parathyroid Hormone (PTH) (04/23/2022 10:43 AM CDT) Analysis Performed At [facility] Time Signature Parathyroid 103 (H) 15 - 65 04/23/2022 DTL Hormone (PTH), S pg/mL 11:58 AM CDT Specimen Anatomical Collection Method Collection Time Receive d Time (Source) Location / / Volume Laterality Blood (Blood, 04/23/2022 10:43 04/23/2022 Venous) AM CDT 11:29 AM CDT Nena Alfonso APRN, C.N.P., D.N.P. LAB BLOOD A DD-ON Performing Organization Address City/State/ZIP Code Phon e Number [facility] - [address] [address] [facility]-[address] (ABNORMAL) Renal Function Panel (04/23/2022 10:43 AM CDT) Analysis Performed At [facility] Time Signature Potassium, S 4.9 3.6 - [...] 04/23/2022 DTL Black/ mL/min/BSA 11:58 AM CDT Brazilian Comment: ----ADDITIONAL INFORMATION---- Estimated GFR calculated using [...] LAB BLOOD A DD-ON Performing Organization Address City/State/ZIP Code Phon e Number [facility] - [address] [place], [place] [address] [facility] [place] [address] Laboratories-[facility] 200 [facility] (ABNORMAL) CBC without Differential (04/23/2022 10:43 AM CDT) [facility] gist Method Time Signature Hemoglobin 11.5 [...] LAB BLOOD A DD-ON Performing Organization Address City/State/ZIP Code Phon e Number [facility] - [address] [place], [place] [address] [facility] [place] [address] Laboratories-[facility] [address] documented in [...]
--- OUTSIDE RECORDS SUMMARY | 2022-10-07 10:42 | XMS_ITS | Encounter Summary ---
:1935 Author Organization [facility] Address [address] [place] [address] Care Team Providers Name Role Phone Unavailable Primary Care Provider Unavailable Encounter Details Date Type Department Care Team Description 09/24/2021 Documentation Department of Physical [facility] Silviano Ames, in [facility] kareem SortoP.T. [address] [facility] [address] [place] [address] [place], [place] [phone] Social History Tobacco Use Types Packs/Day Years [...] or relatives? How often do you attend mandaen or 1 to 4 times per year 03/2022 hinduism services? Do you belong to any clubs or No 02/19/2022 organizations such as mandaen groups, unions, fraternal or athletic groups, or [...] place to sleep or slept in a half-way (including now)? Education Answer Date Recorded What is the highest level of school you have completed or 12 th grade 03/22/2021 the highest degree you have received? Sex Assigned at Date Recorded Female 02/19/2022 7:48 AM CDT documented as of this encounter Progress Notes Hui Machado P.T., D.P.T. - 09/24/2021 12:00 PM CST Note created to update orders. Hui Machado P.T., D.P.T. NDITIONING ASSOCIATE documented in this encounter Plan of Treatment Not on filedocumented as of this encounter Visit Diagnoses Diagnosis Lymphedema - Primary documented in this encounter Additional Health Concerns Assessment Noted Time PHQ-9 Depression Total Score: 15 03/22/2021 12:16 PM C DT documented as of this encounter
--- OUTSIDE RECORDS SUMMARY | 2022-10-07 10:42 | XMS_ITS | Encounter Summary ---
:1935 Author Organization [facility] Address [address] [place] [address] Care Team Providers Name Role Phone Unavailable Primary Care Provider Unavailable Reason for Visit Reason Comments Chronic Kidney Disease CKD Enroll Outpatient (Routine) - Closed Specialty Diagnoses / Procedures Referred By Contact Refer red To Contact Nephrology and Brennan Kirk Brinkley Gui Zhang M.D., Ph.D. [address] [place] [phone] Referral ID Status Reason Start Date Expiration Date Visits Requ ested Visits Authorized [id number] Closed 05/11/2021 05/11/2022 1 1 Encounter Details Date Type Department Care Team Description 09/17/2021 Nurse Only Division of Nephrology Leatha Duong M.D., Ph.D. [address] [place] [phone] [facility] Hy[facility] [address] [place] [phone] Disease (CKD Enroll ) [place], [place] [address] [place] [phone] Social History Tobacco Use Types Packs/Day Years [...] or relatives? How often do you attend adventist or 1 to 4 times per year 03/2022 methodist services? Do you belong to any clubs or No 02/19/2022 organizations such as adventist groups, unions, fra[employer] or athletic groups, or school groups? How [...] Sign Reading Time Taken Comments Blood Pressure 140/62 09/17/2021 1:21 PM CDT Pulse 68 09/17/2021 1:19 PM CDT Temperature - - Respiratory Rate - - Oxygen Saturation - - Inhaled Oxygen Concentration - - Weight 115 kg (253 lb 15.5 oz) 09/17/2021 1:19 PM CDT Height - - Body Mass Index 41.36 06/14/2021 1:45 PM CDT documented in this encounter Progress Notes Taya Peter R.N. - 09/17/2021 11:00 AM CDT Provider Name: Dr. Amin Reason for Visit: Chronic kidney disease patient Relevant History: hypertension, kidney disease, sleep apnea and obesity Preferred arm use for BP: Either. Date last assessed: 09/17/21 Home BP Monitor: Yes Date last assessed: Never Exercise: Yes, walks and does house work Patient's weight is: Patient has lost weight by 2.8 kg since last visit 30 days ago . Patient has bilateral lower extremity edema; right +3 pitting edema, left +2 edema. Two days ago shewas taking furosemide 40 mg daily for swelling. This was self directed as she was told to discontinue furosemide. She also developed a inflamed area on her right foot a few weeks ago. The area is slightly tender, red, inflamed and warm to the touch. There is a slight rash. She is seeing her local PCP tomorrow but unsure if she will address this as the provider does a limited exam. Patient had a fall a couple days ago in a parking lot. She was assessed in her local ED but did not sustain a fracture. She complains of pain in her right leg and shoulder. Her right leg is more swollen than the left. Tobacco Use: Social History Tobacco Use Smoking Status Never Smoker Smokeless Tobacco Never Used Alcohol Use: Social History Substance and Sexual Activity Alcohol Use Not Currently Dietary Assessment: does not add salt to food, rarely eats out, does not read food labels for sodiumcontent, drinks 1-2 cups of caffeine per day and roughly 50 oz of water Home blood pressure trends are 133-140s/68-70s. Vitals: 09/17/21 1319 09/17/21 1320 09/17/21 1321 BP: 136/60 132/62 140/62 BP Location: Left arm Left arm Left arm Patient Position: Sitting Sitting Sitting Cuff Size: Large Pulse: 68 Weight: 115 kg Plan of Care: In-office blood pressures are: within goal. goal is less than 140/90 Dizziness/Lightheadedness: denies dizziness or lightheadedness. Recommendations given to: increase exercise, increase intake of fluids to 64-80 oz per day, limit sodium to 2000 mg or less per day and follow a low potassium diet, avoid use of NSAIDs, monitor and record BP and reviewed proper home BP monitoring technique Recommend having home blood pressure monitor assessed for accuracy on an annual basis. Instructed patient to call Nephrology & Hypertension Nurses if blood pressure is greater than 140/90 or less than 110 systolic or develops dizziness/lightheadedness. Medications: Continue on current medications for now. Patient Contact Information: Preferred contact: home and okay to leave message?: yes documented in this encounter Plan of Treatment Not on filedocumented as of this encounter Visit Diagnoses Diagnosis Hypertension And Chronic Kidney Disease Stage 1 To 4 - Primary documented in this encounter Additional Health Concerns Assessment Noted Time PHQ-9 Depression Total Score: 15 03/22/2021 12:16 PM C DT documented as of this encounter
--- OUTSIDE RECORDS SUMMARY | 2022-10-07 10:42 | XMS_ITS | Encounter Summary ---
:1935 Author Organization [facility] Address [address] [place] [address] Care Team Providers Name Role Phone Unavailable Primary Care Provider Unavailable Reason for Visit Reason Comments Follow-up Encounter Details Date Type Department Care Team Description 08/08/2021 Clinical Communication Division of General Christians, Follow-up Internal Medicine in Jocelyn Estrada [place], [place] [address] [facility] [address] [place] [phone] Social History Tobacco Use Types Packs/Day Years Used Date Smoking Tobacco: Never Smokeless Tobacco: Never Alcohol Use Standard Drinks/Week Comments Yes 3 (1 standard drink = 0.6 oz pure [...] or relatives? How often do you attend rastafarian or 1 to 4 times per year 03/2022 anabaptism services? Do you belong to any clubs or No 02/19/2022 organizations such as rastafarian groups, unions, fraternal or athletic groups, or [...] this encounter Miscellaneous Notes Telephone Encounter - Oneyda Cadet R.N. - 08/09/2021 10:26 AM CDT SUBJECTIVE CHIEF COMPLAINT / REASON FOR CALL Follow-up Information Discussed Patient was contacted and Dr. Portillo recommendations reviewed. Patient states she has had incontinence and pain with urination for the past [address] Velázquez's note dated 05/10 with hisrecommendations. States she is compliant with wearing the C-PAP but the weight is not coming off like she would like. She is hesitant to try the mediations that were recommended because her kidney function is critical. I advised she reach out to her local care provider for a urinalysis and an evaluation. I provided the phone number for Dr. Velázquez's team as she does not have acces to the portal. Patient appreciated the phone call and verbalizes understanding with plan of care. PLAN Disposition/Recommendation: self-care is appropriate at this time, patient encouraged to call back with questions Information/Education: patient/caller able to teach back Caller agreeable to plan of care: yes The following references were used: provider Dr. Portillo and nursing clinical judgement documented in this encounter Plan of Treatment Not on filedocumented as of this encounter Visit Diagnoses Not on filedocumented in this encounter Additional Health Concerns Assessment Noted Time PHQ-9 Depression Total Score: 15 03/22/2021 12:16 PM C DT documented as of this encounter
--- OUTSIDE RECORDS SUMMARY | 2022-10-07 10:42 | XMS_ITS | Encounter Summary ---
:1935 Author Organization [facility] Address [address] [place] [address] Care Team Providers Name Role Phone Unavailable Primary Care Provider Unavailable Encounter Details Date Type Department Care Team Description 06/20/2021 Ancillary Procedure Department of Dermatology Social History Tobacco Use Types Packs/Day Years [...] or relatives? How often do you attend catholic or 1 to 4 times per year 03/2022 judaism services? Do you belong to any clubs or No 02/19/2022 organizations such as catholic groups, unions, fraternal or athletic groups, or [...] Procedure Name Priority Date/Time Associated Comments Diagnosis DERMATOLOGY IMAGE Routine 06/20/2021 9:25 AM Resu lts for this EXAM CDT procedure are i n the results section. documented in this encounter Results Right mandaen-Dermatology Image Exam (06/20/2021 9:25 AM CDT) Specimen (Source) Anatomical Collection Method Collection Time Re ceived Time Location / / Volume Laterality 06/20/2021 9:23 AM CDT Narrative [facility] - 06/20/2021 9:26 AM CDT This order has been created and auto-finalized to support the import of images acquired without order. The clini libia documentation to support these images can be found on the encounter chandler t produced images. Provider Not In System IMG NON RAD IMAGING PROCEDUR ES Performing Organization Address City/State/ZIP Code Phon e Number [facility] NA documented in this encounter Visit Diagnoses Not on filedocumented in this encounter Additional Health Concerns Assessment Noted Time PHQ-9 Depression Total Score: 15 03/22/2021 12:16 PM C DT documented as of this encounter
--- OUTSIDE RECORDS SUMMARY | 2022-10-07 10:42 | XMS_ITS | Encounter Summary ---
:1935 Author Organization [facility] Address [address] [place] [address] Care Team Providers Name Role Phone Unavailable Primary Care Provider Unavailable Reason for Referral Outpatient (Routine) - Closed Specialty Diagnoses / Procedures Referred By Contact Refer red To Contact Dimple Bustos M.D. [address] [phone] Referral ID Status Reason Start Date Expiration Date Visits Requ ested Visits Authorized [id number] Closed 09/17/2021 09/17/2022 1 1 Reason for Visit Outpatient (Routine) - Closed Specialty Diagnoses / Procedures Referred By Contact Liliana maloney To Contact Dimple Bustos M.D. [address] [phone] Referral ID Status Reason Start Date Expiration Date Visits Requ ested Visits Authorized [id number] Closed 06/15/2021 06/15/2022 1 1 Encounter Details Date Type Department Care Team Description 09/17/2021 Clinical Support Department of Leatha Romero M.D. [address] [place] [phone] Morbid Ob[facility] 200 [place] [address] Mass Index 40.0-44.9 [place], [place] Adult ([facility]) [address] [place] [address] Social History Tobacco Use Types Packs/Day Years [...] or relatives? How often do you attend nondenominational or 1 to 4 times per year 03/2022 roman catholic services? Do you belong to any clubs or No 02/19/2022 organizations such as nondenominational groups, unions, fraternal or athletic groups, or [...] of this encounter Progress Notes Ceci Guaman, AMILCAR, LD - 09/17/2021 2:00 PM CDT CHIEF COMPLAINT/REASON FOR VISIT Nutrition-Weight Management Follow-Up Met with patient and ASSESSMENT Food/Nutrition Related History Previous goals set May 2021: 1. Increase fruit and vegetable intake -She is having more salads and fresh foods 2. Use Plate Method for portion control -She has been continuing to work on this 3. Use less oil, butter, perez, etc.-She has been trying this as well 4. Use Healthrider daily for 5 minutes -She has moved it upstairs a month ago but has not used it. She has been walking around the house more. Eating environment: They both do the cooking and grocery shopping. 2 times per month at fast food/restaurants. Food and beverage intake ?? Breakfast: oatmeal with raisins or blueberries or 2 eggs with toast or a bagel with peanut butterand a tiny honey ?? Morning Snack: none ?? Lunch: leftovers or a tuna salad sandwich ?? Afternoon Snack: none ?? Evening Meal: rotisserie chicken/pork ?? Night Snack: occasional ice cream Beverages: water Alcohol intake: none Physical activity: Vielka Yap reports is limited but does have a Healthrider machine that she is hoping to use. Weight History Ht Readings from Last 1 Encounters: 06/14/21 166.9 cm Wt Readings from Last 1 Encounters: 09/17/21 115 kg BMI Readings from Last 1 Encounters: 09/17/21 41.36 kg/m?? 06/14/21: 118 kg 05/10/21: 121 kg Estimation of Nutritional Needs 1200 calories [...] changes; gradual weight reduction Patient Goal(s): 1. Continue to watch sodium intake 2. Limit meat/protein to 3-4 ox 2 times per day FOLLOW UP PLAN: Follow-up appointment needs to be scheduled (6 months) Time spent with patient (minutes): 30 documented in this encounter Plan of Treatment Scheduled Referrals Name Type Priority Associated Diagnoses Order S chedu Nutrition office Outpatient Referral Routine Expe cted: visit (clinic) 03/17/2022 (Approximate), Expires: 09/17/2024 documented as of this encounter Visit Diagnoses Diagnosis Morbid Obesity Body Mass Index 40.0-44.9 Adult (HCC) documented in this encounter Additional Health Concerns Assessment Noted Time PHQ-9 Depression Total Score: 15 03/22/2021 12:16 PM C DT documented as of this encounter
--- OUTSIDE RECORDS SUMMARY | 2022-10-07 10:42 | XMS_ITS | Encounter Summary ---
:1935 Author Organization [facility] Address [address] [place] [address] Care Team Providers Name Role Phone Unavailable Primary Care Provider Unavailable Reason for Visit Reason Comments Continuing therapy order Encounter Details Date Type Department Care Team Description 09/24/2021 Clinical Department of Physical Mirian Plaza inuing therapy Communication Medicine and [facility] order Rehabilitation in [facility], [place] ABPTS-ONC [address] [facility] [address] [place] [phone] Social History Tobacco Use Types Packs/Day Years [...] or relatives? How often do you attend anabaptist or 1 to 4 times per year 03/2022 gnosticism services? Do you belong to any clubs or No 02/19/2022 organizations such as anabaptist groups, unions, fraternal or athletic groups, or [...] this encounter Miscellaneous Notes Telephone Encounter - Tova Soria - 09/24/2021 10:57 AM CST PROVIDER'S NAME: Mirian Plaza CALLER'S NAME: Mrs. Vielka Yap WHAT IS THE CALL REGARDING? Reason for the Call: requesting ongoing therapy Next Follow Up: slot held for Friday 09/28 @ 1:00 pm Suggested Next Steps Listed in Clinical Note: Val 05/11/21 Clinical Note: TREATMENT PLAN Number of Visits: up to 5 visits Frequency: Recheck when returning for other appointments Plan: Continue with current plan Plan Comments: Patient returning home this date. WIll continue with established plan. Over emphasized the importance of 23 hour a day compression. She will contact department in future if needed. Treatment interventions may include: Therapeutic exercise, Therapeutic functional activity, Neuromuscular re-education, Gait training ?? Daytime Compression Program: Custom garment (comment) Daytime Compression Program Additional Details: Bilateral knee-high 20-30 mmHg. Optional Velcro device. ?? Nighttime Compression Program: Compression devices (comment) Nighttime Compression Program Additional Details: Velcro wraps bilateral knee high Response preference: phone call Additional Comments: Mrs. Yap is requesting ongoing therapy and to see you this Friday 09/28 when she is in clinic. The ongoing order expires on 09/27. Could a new order please be placed for Mrs. Yap to see you? We currently have a block placed on your calendar for 1:00 pm on 09/28 for her to be seen. Please advise. Thank you, Tova Braun. PATIENT OR CALLER'S PHONE NUMBER: [phone] LITY PRACTICE SPECIALIST documented in this encounter Plan of Treatment Not on filedocumented as of this encounter Visit Diagnoses Not on filedocumented in this encounter Additional Health Concerns Assessment Noted Time PHQ-9 Depression Total Score: 15 03/22/2021 12:16 PM C DT documented as of this encounter
--- OUTSIDE RECORDS SUMMARY | 2022-10-07 10:42 | XMS_ITS | Encounter Summary ---
:1935 Author Organization [facility] Address [address] [place] [address] Care Team Providers Name Role Phone Unavailable Primary Care Provider Unavailable Reason for Referral Outpatient (Routine) - Closed Specialty Diagnoses / Procedures Referred By Contact Refer amara To Contact Leatha Yeung [address] M.D. [address] [place] [address] Referral ID Status Reason Start Date Expiration Date Visits Requ ested Visits Authorized [id number] Closed 09/28/2021 09/28/2022 1 1 ETING STRATEGY ANALYST Reason for Visit Reason Comments Other Follow up Outpatient (Routine) - Closed Specialty Diagnoses / Procedures Referred By Contact Liliana maloney To Contact Leatha Yeung [address] M.D. [address] [place], [place] [phone] Referral ID Status Reason Start Date Expiration Date Visits Requ ested Visits Authorized [id number] Closed 09/18/2021 09/18/2022 1 1 Encounter Details Date Type Department Care Team Description 09/28/2021 Office Visit Division of Nick Morbid Obesi ty Body Mass Index 40.0-44.9 Adult (HCC) (Primary Dx); Endocrinology Leatha william M.D. Hypertensive Chronic Kidney Disease (CKD ) Stage 3b Glomerular Filtration Rate (GFR) 30 To 44 (HCC); [place], [place] [address] [facility] Edema Leg; [address] [place], [place] Obstructive [place] [phone] Social History Tobacco Use Types Packs/Day Years [...] or relatives? How often do you attend amish or 1 to 4 times per year 03/2022 jehovah's witness services? Do you belong to any clubs or No 02/19/2022 organizations such as amish groups, unions, fraternal or athletic groups, or [...] Pressure - - Pulse - - Temperature - - Respiratory Rate - - Oxygen Saturation - - Inhaled Oxygen Concentration - - Weight 118 kg (259 lb 11.2 oz) 09/28/2021 11:26 AM MARKETING STRATEGY ANALYST Height 166 cm (5' 5.35) 09/28/2021 11:26 AM MARKETING STRATEGY ANALYST Body Mass Index 42.75 09/28/2021 11:26 AM MARKETING STRATEGY ANALYST documented in this encounter Progress Notes Leatha Romero M.D. - 09/28/2021 11:30 AM CST SUBJECTIVE CHIEF COMPLAINT/REASON FOR VISIT Weight management. HISTORY OF PRESENT ILLNESS Vielka Yap is a 85 y.o. female who I am seeing in follow-up for treatment of obesity. She was initially seen by me in April. At that time she was struggling with lower extremity edema. Thishas improved but continues to be an issue limiting her mobility. She visited with a dietitian. The main dietary change she has made is limiting eating out. She has other information available to her for changes to implement. She expresses an interest in medical therapies for weight loss. She also has many other questions regarding other aspects of her health. She is particularly worried about her renal function and what could have significantly impacted this. He is also in need of prescriptions which unfortunately were not able to be provided by her local physician. Her weight trajectory is as follows: Weight at consultation: 121 kg Weight today: Wt 118 kg Weight loss: 3 kg ( 2.5 % of baseline weight) The following portions of the patient's history were reviewed and updated as appropriate: current medications, medical history and problem list. OBJECTIVE VITAL SIGNS There were no vitals filed for this visit. Ht 166 cm Wt 118 kg Body mass index is 42.75 kg/m??. PHYSICAL EXAMINATION General Appearance: alert, no distress, in wheelchair. DIAGNOSTICS Laboratory tests reviewed. ASSESSMENT / PLAN #1 Morbid Obesity Body Mass Index 40.0-44.9 Adult ([facility]) #2 Hypertensive Chronic Kidney Disease (CKD) Stage 3b Glomerular Filtration Rate (GFR) 30 To 44 ([facility]) #3 Edema Leg #4 Obstructive Sleep Apnea Adult I answered several questions regarding her overall health. She expressed some concern regarding her renal dysfunction being the results of her COVID vaccination. I have discussed that is most likely a result of longstanding hypertension. She is also in need of some prescriptions that were provided by physicians at [facility]. I did update herprescriptions for allopurinol and Nizoral 2% cream with limited refills. I have advised her to reachout to her primary care provider for future refills. She does come in today 3 kg landman. This is likely a combination of some diuresis and dietary changes. Her biggest obstacle is her limited mobility. In regards to considering medical therapies for weight loss, I am hesitant to consider current agents in her situation due to potential side effects and limited efficacy. As a result our focus is going to be on ongoing changes to her eating and activity habits. She is scheduled to visit with physical medicine rehabilitation later today to address her lower extremity edema. She identifies her edema as 1 of her biggest obstacle to being active. She has participated in physical therapy in the past but she found those exercises to physical in aggressive. She will review the information provided by the dietitian and identify another dietary change to implement. Even a weight loss of 1-2 lb per month would be beneficial. We have agreed to follow up in 6 months. I personally spent over half of a total 25 minutes in counseling and discussion with the patient andcoordination of care as described above. ETING STRATEGY ANALYST documented in this encounter Plan of Treatment Scheduled Referrals Name Type Priority Associated Order Schedule Diagnoses Endocrinology office Outpatient Referral Routine Expected: visit (clinic) 03/28/2022 (Approximate), Expires: 09/28/2024 documented as of this encounter Visit Diagnoses Diagnosis Morbid Obesity Body Mass Index 40.0-44.9 Adult ([facility]) - Primary Hypertensive Chronic Kidney Disease (CKD ) Stage 3b Glomerular Filtration Rate (GFR) 30 To 44 ([facility]) Edema Leg Obstructive Sleep Apnea Adult documented in this encounter Additional Health Concerns Assessment Noted Time PHQ-9 Depression Total Score: 15 03/22/2021 12:16 PM C DT documented as of this encounter
--- OUTSIDE RECORDS SUMMARY | 2022-10-07 10:42 | XMS_ITS | Encounter Summary ---
:1935 Author Organization [facility] Address [address] [place] [address] Care Team Providers Name Role Phone Unavailable Primary Care Provider Unavailable Reason for Visit Reason Comments Possible UTI Encounter Details Date Type Department Care Team Description 08/09/2021 Clinical Communication Department of Urology [facility]ao [facility] [address] [facility] [address] [place] [phone] Social History Tobacco Use Types Packs/Day Years [...] or relatives? How often do you attend lutheran or 1 to 4 times per year 03/2022 spiritism services? Do you belong to any clubs or No 02/19/2022 organizations such as lutheran groups, unions, fraternal or athletic groups, or [...] place to sleep or slept in a [place] [facility] [place] (including now)? Education Answer Date Recorded What is the highest level of school you have completed or 12 th grade 03/22/2021 the highest degree you have received? Sex Assigned at Date Recorded Female 02/19/2022 7:48 AM CDT documented as of this encounter Miscellaneous Notes Telephone Encounter - Lucia Dickerson R.N. - 08/09/2021 11:53 AM CDT SUBJECTIVE CHIEF COMPLAINT / REASON FOR CALL Possible UTI ASSESSMENT Mrs. Yap Called because yesterday she was experiencing discomfort and burning with urination. Her primary care provider recommended she contact Urology. She is currently scheduled for a back injection here on August 15, 2021. They informed her she needs to be on infection free before the injection. PLAN I recommended she complete a urine culture locally. She will contact us once the results are finalized. If there is an infection present, she would like Dr. Thao to review and make recommendations on treatment. Disposition/Recommendation: patient to schedule appointment and will call. Information/Education: patient/caller able to teach back. Caller agreeable to plan of care: yes. The following references were used: nursing clinical judgement. Telephone Encounter - Margaret Tucker - 08/09/2021 11:12 AM CDT Mrs. Yap calls in stating that she thinks he has a UTI. She has been having discomfort and burning while urinating. She reached out to [facility] yesterday and was told that she should contact Urology todiscuss. She expressed that she does not trust her local urologist. She has not helped her in the past and she doesn't think she knows how to treat her UTI's. She also has an Epidural scheduled here on08/15. She was told that she would need to reschedule if she has an infection. Please call her back at [phone]. Thanks! documented in this encounter Plan of Treatment Not on filedocumented as of this encounter Visit Diagnoses Not on filedocumented in this encounter Additional Health Concerns Assessment Noted Time PHQ-9 Depression Total Score: 15 03/22/2021 12:16 PM C DT documented as of this encounter
--- OUTSIDE RECORDS SUMMARY | 2022-10-07 10:42 | XMS_ITS | Encounter Summary ---
:1935 Author Organization [facility] Address [address] [place] [address] Care Team Providers Name Role Phone Unavailable Primary Care Provider Unavailable Reason for Visit Reason Comments Follow-up Encounter Details Date Type Department Care Team Description 09/27/2021 Clinical Communication Division of Nephrology Katja Alegria, Follow-up and Hypertension in [place], [place] [address] [facility] [address] [place] [phone] Social History Tobacco Use Types Packs/Day Years [...] or relatives? How often do you attend roman catholic or 1 to 4 times per year 03/2022 christian services? Do you belong to any clubs or No 02/19/2022 organizations such as roman catholic groups, unions, fraternal or athletic groups, [...] this encounter Miscellaneous Notes Telephone Encounter - Katja Alegria R.N. - 09/27/2021 10:19 AM CST SUBJECTIVE CHIEF COMPLAINT / REASON FOR CALL Follow-up Information Discussed I called Mrs. Yap to share that her kidney function is stable at this time. She mentioned to me that someone she knows had a decline in kidney function after having the COVID vaccine. She said she thinks this is also why she developed kidney disease. She had the booster recently. She said this person also started drinking water with baking soda and this cured his kidney diease. She asked if she should start drinking baking soda water, too. I said the best things she can do for her kidneys is to eat a low salt diet, control her blood pressure, and manage her weight. I shared with Vielka that her kidney disease goes back further than her having the COVID vaccine. I also asked her not to start drinking baking soda water. I also told her our appointment office will be in touch about her first kidney diease clinic appointment PLAN Disposition/Recommendation: recommended continue engagement in self-management activities Information/Education: patient/caller able to teach back Caller agreeable to plan of care: yes The following references were used: nursing clinical judgement B SERVICES AIDE Telephone Encounter - Katja Alegria R.N. - 09/27/2021 9:52 AM CST ----- Message from Leatha Kirk M.D., Ph.D. sent at 09/21/2021 2:31 PM CDT ----- Charlene, Please call patient to let her know her kidney function remains stable. Thank you Yadi ----- Message ----- From: Kilo Shane In Or_Oru Even Mrn From Lab [id number] Sent: 09/17/2021 9:37 AM CDT To: Leatha Kirk M.D., Ph.D. B SERVICES AIDE documented in this encounter Plan of Treatment Not on filedocumented as of this encounter Visit Diagnoses Not on filedocumented in this encounter Additional Health Concerns Assessment Noted Time PHQ-9 Depression Total Score: 15 03/22/2021 12:16 PM C DT documented as of this encounter
--- OUTSIDE RECORDS SUMMARY | 2022-10-07 10:42 | XMS_ITS | Encounter Summary ---
:1935 Author Organization [facility] Address [address] [place] [address] Care Team Providers Name Role Phone Unavailable Primary Care Provider Unavailable Encounter Details Date Type Department Care Team Description 12/25/2021 Clinical Communication Department of Physical [facility] , Medicine and Juanito Tang M.D. Rehabilitation in [address] [place] [address] [place] [phone] [place], [place] [phone] (Work) [phone] Social History Tobacco Use Types Packs/Day Years [...] 1 to 4 times per year 03/2022 bahai services? Do you belong to any clubs [...]
--- OUTSIDE RECORDS SUMMARY | 2022-10-07 10:42 | XMS_ITS | Encounter Summary ---
:1935 Author Organization [facility] Address [address] [place] [address] Care Team Providers Name Role Phone Unavailable Primary Care Provider Unavailable Reason for Referral Outpatient (Routine) - Closed Specialty Diagnoses / Procedures Referred By Contact Refer red To Contact Endocrinology Leatha Romero [address] M.D. [address] [place], [place] [address] Referral ID Status Reason Start Date Expiration Date Visits Requ ested Visits Authorized [id number] Closed 09/18/2021 09/18/2022 1 1 Scheduling Instructions Can be telemedicine. Encounter Details Date Type Department Care Team Description 09/18/2021 Orders Only Division of Endocrinology in [place], [place] Leatha Boateng M.D. 200 [facility] 200 [place] [address] [place], [place] [phone] (Wo rk) Social History Tobacco Use Types [...] or relatives? How often do you attend moravian or 1 to 4 times per year 03/2022 jainism services? Do you belong to any clubs or No 02/19/2022 organizations such as moravian groups, unions, fraternal or athletic groups, or [...] office Outpatient Referral Routine Expected: visit (clinic) 09/18/2021 (Approximate), Expires: 09/18/2024 documented as of this encounter Visit Diagnoses Not on filedocumented in this encounter Additional Health Concerns Assessment Noted Time PHQ-9 Depression Total Score: 15 03/22/2021 12:16 PM C DT documented as of this encounter
--- OUTSIDE RECORDS SUMMARY | 2022-10-07 10:42 | XMS_ITS | Encounter Summary ---
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 [facility] Procedures FL Lumbar Spine Interlaminar Epidural Injection [address] [place] [address] Referral ID Status Reason Start Date Expiration Date Visits Requ ested Visits Authorized [id number] Closed 05/22/2021 05/22/2022 1 1 Reason for Visit Outpatient (Routine) - Closed Specialty Diagnoses / Procedures Referred By Contact Refer red To Contact Diagnoses Spinal Stenosis Lumbar Region Without Neurogenic Claudication Chao East M.D. [facility] Procedures FL Lumbar Spine Interlaminar Epidural Injection [address] [place] [address] Referral ID Status Reason Start Date Expiration Date Visits Requ ested Visits Authorized [id number] Closed 05/22/2021 05/22/2022 1 1 Encounter Details Date Type Department Care Team Description 08/15/2021 Hospital Encounter Division of Pain [place], Spina l Stenosis Medicine in [place] Lumbar Region Without [place], [place] [address] [facility] Neurogenic [address] [place], [place] [id number] [phone] Social History Tobacco Use Types Packs/Day Years [...] or relatives? How often do you attend confucianism or 1 to 4 times per year 03/2022 hindu services? Do you belong to any clubs or No 02/19/2022 organizations such as confucianism groups, unions, fraternal or athletic groups, or [...] Sign Reading Time Taken Comments Blood Pressure 153/65 08/15/2021 11:41 AM CDT Pulse 66 08/15/2021 11:41 AM CDT Temperature 36.9 ??C (98.4 ??F) 08/15/2021 10:55 AM CDT Respiratory Rate - - Oxygen Saturation 97% 08/15/2021 11:41 AM CDT Inhaled Oxygen Concentration - - Weight - - Height - - Body Mass Index - - documented in this encounter Medications at Time of Discharge Medication Sig Dispensed Refills Start Date End Date acetaminophen (TYLENOL) Take 1,000 mg by mouth 0 500 mg capsule every 6 (six) hours as needed. buPROPion XL Take 300 mg by mouth 0 (WELLBUTRIN XL) 300 mg daily. 24 hr tablet coenzyme Q10 (CO Q-10) Take 200 mg by mouth 0 200 mg capsule daily. collagen, hydrolysate, daily. 0 bovine, (collagen, hydr, bovine,, bulk,) 100 % powder DME CPAPIndications: DME Order 1 Device 0 06/14/2021 Obstructive Sleep Apnea Adult docosahexaenoic Take 2 capsules by 0 acid-epa 120-180 mg mouth daily. [place] 3 capsule (strength unknown) esomeprazole (NexIUM) Take 20 mg by mouth as [address] capsule needed. Hardly ever GLUTATHIONE MISC Take 1 capsule by 0 mouth daily. (strength unknown) levothyroxine Take 25 mcg by mouth 0 (SYNTHROID, LEVOTHROID) daily. 25 mcg tablet lidocaine (LMX) 4 % Apply 1 application 30 g 3 021 cream topically 3 (three) times a day as needed for pain. lisinopril-hydroCHLOROt Take 1 tablet by mouth 0 04/17/2015 hiazide daily. (PRINZIDE,ZESTORETIC) 20-12.5 mg per tablet sennosides (SENNA LAX Take 1 tablet by mouth 0 ORAL) as needed. UNABLE TO FIND Nopalea juice - 1 shot 0 daily vitamin C/biotin Take 1 capsule by 0 (QGOM-JPFE-ECETV, VIT mouth daily. C-BIOTIN, ORAL) VITAMIN K2 ORAL Take 1 capsule by 0 mouth daily. 120 mcg ZINC ACETATE ORAL Take 50 mg by mouth 0 daily. allopurinoL (ZYLOPRIM) Take 0.5 tablets (50 18 tablet 3 09/28/2021 100 mg tablet mg total) by mouth 3 (three) times a week. buPROPion XL Take 300 mg by mouth 0 02/20/2021 (WELLBUTRIN XL) 300 mg daily. 24 hr tablet calcium carb,gluc/mag Take 1 tablet by mouth 0 09/17/2021 ox,gluc (CALCIUM daily. Calcium 500 mg, MAGNESIUM ORAL) magnesium 200 mg, boron 1000 mcg,Vitamin 3 mg, Vitamin D3 6.25 mcg cholecalciferol Take 50 mcg by mouth 0 09/17/2021 (Vitamin D3) 50 mcg daily. (2,000 Unit) tablet ketoconazole (NIZORAL) Apply 1 application 30 g 1 02/202109/28/2021 2 % cream topically 2 (two) times a day. Apply to right lateral abdomen twice daily for 4 weeks psyllium husk Take 1 scoopful by 0 01/31/201708/2022 (METAMUCIL ORAL) mouth as needed. traMADoL (ULTRAM) 50 mg Take 50 mg by mouth as 0 09/17/2021 tablet needed. UNABLE TO FIND Pro Digest 1-2 caps 0 1 11/17/2020 daily UNABLE TO FIND Nerve Formula - 2 tabs 0 09/17/2021 daily UNABLE TO FIND Phytoceramides - 1 cap 0 09/17/2021 daily documented as of this encounter Procedure Notes Jose Ramon Sharma D.O., M.P.H. - 08/15/2021 11:00 AM CDTAssociated Order(s): FL Lumbar Spine Interlaminar Epidural Injection Pre-Procedure Diagnose(s): Spinal Stenosis Lumbar Region Without Neurogenic Claudication Post-Procedure Diagnose(s): Spinal Stenosis Lumbar Region Without Neurogenic Claudication FL Lumbar Spine Interlaminar Epidural Injection Date/Time: 08/15/2021 11:10 AM Performed by: Payal Patrick L.P.NSharon Authorized by: Chao East M.D. Care team members present 1. Salty Godinez D.O. 2. Pasquale Rao M.D. 3. Payal Patrick L.P.NSharon 4. Bernarda Escoto L.P.NSharon PROCEDURE SUMMARY Indications: Radiculitis Pre-procedural pain: 2/10 Site: lumbar Lumbar: interlaminar epidural steroid Interlaminar steroid injection: Midline L5-S1 Needle or RF cannula: Tuohy Needle size: 20 G Needle length: 4.5 in. Flow: not applicable Patient position: prone IMAGING Fluoroscopic guidance: Yes Ultrasound guidance: No INJECTED MEDICATIONS The injected medication(s) listed was divided equally between the identified injection location(s) Total volume of injectate (mL): 1 Total steroid in injectate (mg): 6 1 mL iohexoL 300 mg iodine/mL PROCEDURE DETAILS Interlaminar steroid injection - lumbar: Utilizing a loss of resistance technique and intermittent fluoroscopic guidance, the Tuohy needle was advanced into the epidural space. Proper needle positioning was confirmed using multiple fluoroscopic views. After negative aspiration, the contrast was injected confirming epidural spread without evidence of intravascular or the intrathecal spread. The injectate was injected slowly and incrementally into the epidural space. The solution was injected slowly and incrementally. Following the injection the needle was withdrawn flushed with lidocaine as it was fully extracted. The patient tolerated the procedure well and there were no apparent complications. After appropriate observation, the patient was dismissed in good condition under their own power. CONSENT Consent obtained: written UNIVERSAL PROTOCOL All relevant documentation and testing were reviewed and available. All required blood products, implants, devices and or special equipment were made available as applicable. Pre-procedure verificationwas conducted and the correct site was marked if required. A fire risk assessment was done as applicable. The procedural time-out was conducted prior to performing the procedure and confirmed in a procedural pause. PRE-PROCEDURE DETAILS Procedure purpose: Therapeutic Appropriate hand hygiene, gown, cap, mask, protective eyewear, sterile gloves, skin preparation, sterile drape, and strict aseptic technique were utilized as applicable for the procedure: yes Site preparation: Chlorhexidine SEDATION / ANESTHESIA Anesthesia method: local infiltration Local infiltrate type: lidocaine ATTESTATION STATEMENT A resident or fellow participated in the procedure, and the it web development consultant was present for the entire procedure. OPERATIVE NOTE INFORMATION Specimens: 0 Drains: 0 Estimated blood loss: 0 Implants: 0 documented in this encounter Plan of Treatment Not on filedocumented as of this encounter Procedures Procedure Name Priority Date/Time Associated Comments Diagnosis FL LUMBAR SPINE RAD - Routine 08/15/2021 11:39 Spinal Stenosis Resu lts for INTERLAMINAR (most inpatients AM CDT Lumbar Region this proce dure EPIDURAL INJECTION and all Without Neurogenic are in the outpatients) Claudication results section. documented in this encounter Results FL LUMBAR SPINE INTERLAMINAR EPIDURAL INJECTION (08/15/2021 11:39 AM CDT) Specimen (Source) Anatomical Location Collection Method / Collectio n Time Received Time / Laterality Volume Narrative Jose Ramon Sharma D.O., M.P.H. - 07/19 11:10 AM CDT Jose Ramon Sharma D.O., M.P.H. ? 08/15/2021 ??2:17 PM FL Lumbar Spine Interlaminar Epidural In jection Date/Time: 08/15/2021 11:10 AM Performed by: Payal Patrick L.PGiacomo. Authorized by: Chao East M.D. Care team members present 1. Salty Godinez D.O. 2. Pasquale Rao M.D. 3. Payal Patrick L.P.Eleno 4. Bernarda Escoto L.PCheikh PROCEDURE SUMMARY Indications: Radiculitis Pre-procedural pain: 210 Site: lumbar Lumbar: interlaminar epidural steroid Interlaminar steroid injection: Midline L5-S1 Needle or RF cannula: Tuohy Needle size: 20 G Needle length: 4.5 in. Flow: not applicable Patient position: prone IMAGING Fluoroscopic guidance: Yes ?? Ultrasound guidance: No ?? INJECTED MEDICATIONS The injected medication(s) listed was di vided equally between the identified injection location(s) Total volume of injectate (mL): 1 Total steroid in injectate (mg): 6 1 mL iohexoL 300 mg iodine/mL PROCEDURE DETAILS ?? Interlaminar steroid injection - lumbar: Utilizing a loss of resistance technique and intermittent fluoroscopic guidance, the Tuohy needle was advanced into the epidural space. Proper needle positioning was confirmed using multiple fluoroscopic views. After negative aspiration, the contrast was injected confirming epidural spread without evidence of intravascular or the intrathecal spread. The injectate was injected slowly and incrementally into the epidural space. ? ?The solution was injected slowly and incrementally. Following the injecti on the needle was withdrawn flushed with lidocaine as it was fully e xtracted. The patient tolerated the procedure well and there were no rhys arent complications. After appropriate observation, the patient was dismissed in good condition under their own power. ? CONSENT Consent obtained: written UNIVERSAL PROTOCOL All relevant documentation and testing w ere reviewed and available. All required blood products, implants, devic es and or special equipment were made available as applicable. Pre-proced ure verification was conducted and the correct site was marked if required. A fire risk assessment was done as applicable. The procedural time-out w as conducted prior to performing the procedure and confirmed in a procedu ral pause. PRE-PROCEDURE DETAILS Procedure purpose: ??Therapeutic Appropriate hand hygiene, gown, cap, mas k, protective eyewear, sterile gloves, skin preparation, sterile drape, and strict aseptic technique were utilized as applicable for the procedure : yes ?? Site preparation: ??Chlorhexidine SEDATION / ANESTHESIA Anesthesia method: local infiltration Local infiltrate type: lidocaine ATTESTATION STATEMENT A resident or fellow participated in the procedure, and the it web development consultant was present for the entire procedure. OPERATIVE NOTE INFORMATION Specimens: 0 Drains: 0 Estimated blood loss: 0 Implants: 0 Chao BACH FLUOROSCOPY PROCEDURES documented in this encounter Visit Diagnoses Diagnosis Spinal Stenosis Lumbar Region Without Ne urogenic Claudication documented in this encounter Administered Medications Inactive Administered Medications - up to 3 most recent administrations Medication Order MAR Action Action Date Dose Rate Site iohexoL 300 mg iodine/mL solution 1 Given 08/15/2021 11:10 AM CD T 1 mL mL (OMNIPAQUE) 1 mL, injection, One-Time Injection, Starting on Fri08/15/21 at 1110, For 1 dose documented in this encounter Additional Health Concerns Assessment Noted Time PHQ-9 Depression Total Score: 15 03/22/2021 12:16 PM C DT documented as of this encounter
--- OUTSIDE RECORDS SUMMARY | 2022-10-07 10:42 | XMS_ITS | Encounter Summary ---
:1935 Author Organization [facility] Address [address] [place] [address] Care Team Providers Name Role Phone Unavailable Primary Care Provider Unavailable Reason for Visit Outpatient (Routine) - Closed Specialty Diagnoses / Procedures Referred By Contact Refer red To Contact Dermatology Diagnoses Lesion Skin Phuong Portillo M.D. [place] [facility] [address] [place] [address] Referral ID Status Reason Start Date Expiration Date Visits Requ ested Visits Authorized [id number] Closed 05/11/2021 05/11/2022 1 1 Encounter Details Date Type Department Care Team Description 06/20/2021 Comprehensive Visit Department of Tim Cardoza (Primary Dx); Dermatology in [place] Lesion Skin; [place], [place] Dermatoheliosis; [address] [place] [id number] Social History Tobacco Use Types Packs/Day Years [...] or relatives? How often do you attend judaism or 1 to 4 times per year 03/2022 judaism services? Do you belong to any clubs or No 02/19/2022 organizations such as judaism groups, unions, fraternal or athletic groups, or [...] AM CDT documented as of this encounter H&P Notes Tamara Mora R.N. - 06/20/2021 9:00 AM CDT Shave biopsy on the right moravian was/were performed as ordered and outlined by Dr. Mary Cardoza ([phone]) in the clinical note dated with today's date. documented in this encounter Consult Notes Tim Cardoza M.D. - 06/20/2021 9:00 AM CDT Correspondence To: Tim Cardoza M.D. Supervising Vehicle Body Sander Dr. Rodríguez was immediately available for consultation but consultation was not required. SUBJECTIVE Chief Complaint Skin lesion over the right moravian History of Present Illness Ms. Yap is a 85 y.o. female with a dermatologic history of actinic keratosis who presents todayfor evaluation skin lesions over the right moravian. The patient was last seen in the Dermatology clinic in 2014 when a few actinic keratosis were treated with cryotherapy. Additionally a suspicious lesion over the right posterior flank was biopsied which was subsequently read as compound nevus. She denies any personal hx of skin cancer. Today the patient has the following skin concerns: 1. Patient notes skin lesion over the right moravian of 2 weeks duration which is progressively growing in size size. She admits to picking a it 2. Patient would also like to discuss treatment for intertrigo over her right inguinal area. She reports improvement with the use of hkyf-dnt-fendsug hydrocortisone Ms. Vielka Yap tries to be diligent with photoprotective measures. The patient denies other cutaneous concerns. Review of Systems Denies unintended weight loss, fevers, chills, night sweats, headache, cough, bloody sputum, shortness of breath, abdominal pain, nausea, numbness/weakness, swollen glands, bone pain, or changing pigmented skin lesions Past Medical/Surgical History Reviewed Dermatologic Social History Tries to be diligent with sun protection OBJECTIVE Physical Exam General: Well appearing female in no acute distress. Alert and Oriented. Eyes:. No scleral injection. Skin: Skin examination of the head, neck, chest, abdomen, back, upper extremities, digits, nails, buttock, lower extremities was performed per patient's request. ?? Avalos type located over the right moravian is a 4 x 4 mm slightly erythematous papule with verrucous surface ?? Scattered over trunk are a few crawford to brown colored macules, variable size, most of them ?? Examined dermoscopy with reassuring features scattered over trunk and extremities are a few seborrheic keratoses and saravia angiomas ?? Erythematous moist patches over the right lateral inguinal fold ?? 1+ pretibial edema ?? Moderate dermatoheliosis and solar lentigines over the sun-exposed areas ASSESSMENT / PLAN #1. Skin tumor uncertain behavior, right moravian, VK versus SK versus NMSC Given the rapid increase in size, it would be reasonable to do a biopsy today. We recommended a skinbiopsy for definitive diagnosis. The possible risks, benefits, alternatives of punch biopsy including but not limited to scarring, bleeding, infection, delayed healing was thoroughly discussed patient.Patient opted to proceed. Photographs obtained. CONSENT Discussed the risks, benefits, alternatives, and the necessity of other members of the healthcare team participating in the procedure. All questions answered and consent given. UNIVERSAL PROTOCOL Procedural pause conducted to verify: correct patient identity, procedure to be performed, and as applicable, correct side and site, correct patient position, and availability of implants, special equipment, or special requirements. PROCEDURE INFORMATION Shave biopsy. We explained the potential diagnosis and recommended that we obtain a biopsy. The risks and benefitsof the procedure were discussed, and the patient consented to these procedures. Using 1% lidocaine with epinephrine for local anesthesia, a shave biopsy was obtained from the right moravian. Biopsy submitted to Dermatopathology for H&E. Special stains will be performed as indicated. The bleeding waswell controlled with application of aluminum chloride. Dressing was applied, and wound care instructions were explained. Biopsy results and any further recommendations will be communicated to the patient by letter. Patient given pamphlet [id number]. #2. Dermatoheliosis ?? Sun protection and sun avoidance were reviewed with the patient. Educational materials were provided regarding skin self-examination, the warning signs and symptoms of skin cancer, and the proper use of sunscreens. I would recommend a full skin cancer screening examination with an appropriately trained clinician every year. #3. Multiple nevi ?? The ABCDE criteria for melanoma was reviewed with the patient. None of the patient's nevi reach the clinical threshold for biopsy. I recommend continued sun protection, self-skin examinations, and observation. Should any of the patient's nevi change in size, color, texture, or shape or develop symptoms such as itching or bleeding, I recommend an immediate return visit for reassessment. #4. Seborrheic keratosis, multiple #5. Saravia angiomas, multiple The benign nature of the skin lesion(s) was discussed with the patient. No treatment is required. I recommend continued observation. Should symptoms or changes develop related to this condition, I would recommend a return visit for reassessment. #6. Intertrigo We recommended treatment with ketoconazole 2% cream in combination with hydrocortisone 1% cream twice a day for the next 4 weeks. We also advised patient keep the area dry #7. Peripheral edema On follow-up with our internal medicine colleagues cosign required PATIENT EDUCATION Ready to learn. No apparent learning barriers were identified. Learning preferences include listening. Explained diagnosis and treatment plan; patient/guardian of patient expressed understanding of thecontent. documented in this encounter Plan of Treatment Not on filedocumented as of this encounter Procedures Procedure Name Priority Date/Time Associated Diagnosis Comme nts DERMATOPATHOLOGY Routine 06/20/2021 9:17 AM Lesion Skin Resul ts for this CDT procedure are i n the results section. documented in this encounter Results Dermatopathology (06/20/2021 9:17 AM CDT) Component Value Ref Test Analysis Performed Pathologis t Range Method Time At Signature 06/26/2021 [facility] 7:03 AM CDT Report Sil Xavier Darnell, 06/26/2021 [facility] electronically [place] 7:03 AM signed by CDT Gross Description Received in formalin labeled with the patient's n moshe, 06/26/2021 [facility] medical record number, and right moravian is a 0.7 x 0.5 x 7:03 AM 0.1 cm pale crawford skin shave biopsy. ??Eccentrically located CDT on the skin surface and abutting the periphery is a 0.4 x 0.4 x 0.2 cm pale crawford-pink, verrucoid lesion with irregular borders. ??The specimen is bisected longitudinally and submitted entirely in cassette A1. ??Grossed by BW Interpretation FINAL DIAGNOSIS 06/26/2021 [facility] A. ??Right moravian, Skin shave biopsy: ??Verrucal keratosis 7:03 AM CDT Specimen (Source) Anatomical Collection Method Collection Time Re ceived Time Location / / Volume Laterality Skin (Right 06/20/2021 9:17 AM moravian) CDT Narrative This result has an attachment that is no t available. Tim Cardoza M.D. LAB PATH DERM ORDERABLES Performing Organization Address City/State/ZIP Code Phon e Number [facility] - [address] [place], [place] [address] [place] [address] [facility] [address] documented in this encounter Visit Diagnoses Diagnosis Nevi Multiple - Primary Lesion Skin Dermatoheliosis Keratosis Seborrheic documented in this encounter Additional Health Concerns Assessment Noted Time PHQ-9 Depression Total Score: 15 03/22/2021 12:16 PM C DT documented as of this encounter
--- OUTSIDE RECORDS SUMMARY | 2022-10-07 10:42 | XMS_ITS | Encounter Summary ---
:1935 Author Organization [facility] Address [address] [place] [id number] Care Team Providers Name Role Phone Unavailable Primary Care Provider Unavailable Reason for Referral Outpatient (Routine) - Closed Specialty Diagnoses / Procedures Referred By Contact Refer red To Contact Nephrology and Diagnoses Hypertension And Chronic Kidney Disease Stage 1 To 4 Chronic Kidney Disease Stage 4 Glomerular Filtration Rate 15-29 (HCC) Karuna Poole [facility] Hypertension RYANN Stephens C.N.P., D.N.P. [address] [place] [address] Referral ID Status Reason Start Date Expiration Date Visits Requ ested Visits Authorized [id number] Closed 09/17/2021 09/17/2022 1 1 Scheduling Instructions Offer patient to go to CKD in [place] . If she wants to come here to [place] than book with anyone but if wants [place] book with Karuna Offer patient to go to CKD in [place] . If she wants to come here to [place] than book with anyone but if wants [place] book with Karuna Encounter Details Date Type Department Care Team Description 09/17/2021 Orders Only Division of Nephrology Jerome Poole rtension And Chronic Kidney Disease Stage 1 To 4 (Primary Dx); and Hypertension in Karuna Stephens APRN, Chroni c Kidney Disease Stage 4 Glomerular Filtration Rate 15-29 (HCC) [place], [place] C.N.P., D.N.P. [address] [place] [address] Social History Tobacco Use Types Packs/Day Years [...] Name Type Priority Associated Diagnoses Order S pepe Nephrology and Outpatient Referral Routine Hypertension And Ex pected: Hypertension office Chronic Kidney 2021, visit (clinic) Disease Stage 1 To 4 Expires: Chronic Kidney 09/17/2024 Disease Stage 4 Glomerular Filtration Rate 15-29 (HCC) documented as of this encounter Results (ABNORMAL) Uric Acid (01/01/2022 11:03 AM [employer]) athologist Signature Uric Acid, S 7.1 (H) 2.7 - 6.1 01/01/2022 DTL mg/dL 12:10 PM [employer] Specimen Anatomical Collection Method Collection Time Receive d Time (Source) Location / / Volume Laterality Blood (Blood, 01/01/2022 11:03 01/01/2022 Venous) AM [employer] 11:40 AM [employer] Karuna Poole APRN, C.N.P., D.N.P. LAB BLOOD AD D-ON Performing Organization Address City/[facility] Phon e Number [facility] - [address] [place], [place] [address] [place] [id number] Laboratories-[facility] [address] (ABNORMAL) Cystatin C with Estimated GFR, S (01/01/2022 11:03 AM [employer]) athologist [facility] [place] eGFR by 28 (L) >60 01/01/2022 DTL Cystatin C mL/min/BSA 12:09 PM [employer] Comment: Estimated GFR calculated using the CKD-E [...] Blood (Blood, 01/01/2022 11:03 01/01/2022 Venous) AM [employer] 11:41 AM [employer] Karuna Poole APRN, C.N.P., D.N.P. LAB BLOOD AD D-ON Performing Organization Address City/State/ZIP Code Phon e Number [facility] - [address] [place], [place] [address] [facility] [place] [address] [facility] [address] [facility] Parathyroid Hormone (PTH) (01/01/2022 11:03 AM [employer]) P athologist Signature Parathyroid 55 15 - 65 01/01/2022 DTL Hormone (PTH), S pg/mL 12:10 PM [employer] Specimen Anatomical Collection Method Collection Time Receive d Time (Source) Location / / Volume Laterality Blood (Blood, 01/01/2022 11:03 01/01/2022 Venous) AM [employer] 11:40 AM [employer] Karuna Poole APRN, C.N.P., D.N.P. LAB BLOOD AD D-ON Performing Organization Address City/State/ZIP Code Phon e Number [facility] - [address] [place] [address] [place] [address] Laboratories-[place] [address] [address] [facility] (ABNORMAL) Renal Function Panel (01/01/2022 11:03 AM [employer]) Analysis Performed At Patho logist Time Signature Potassium, S 4.8 3.6 - 5.2 01/01/2022 DTL mmol/L 12:09 PM [employer] Sodium, S 141 135 - 145 01/01/2022 DTL mmol/L 12:09 PM [employer] Chloride, S 105 98 - 107 01/01/2022 DTL mmol/L 12:09 PM [employer] Bicarbonate, S 26 22 - 29 01/01/2022 DTL mmol/L 12:09 PM [employer] Anion Gap 10 7 - 15 01/01/2022 DTL 12:09 PM [employer] BUN (Blood Urea 37 (H) 6 - 21 01/01/2022 DTL Nitrogen), S mg/dL 12:09 PM [employer] Creatinine 1.42 (H) 0.59 - 01/01/2022 DTL 1.04 mg/dL 12:09 PM [employer] eGFR-Non 34 (L) >=60 01/01/2022 DTL Black/ mL/min/BSA 12:09 PM [employer] Prydeinig Comment: ----ADDITIONAL INFORMATION---- Estimated GFR calculated using the 2009 CKD_EPI creatinine equation. eGFR-Black/ 39 (L) >=60 mL/min/BSA 2021 12:09 PM [employer] DTL Comment: ----ADDITIONAL INFORMATION---- Estimated GFR calculated using the 2009 CKD_EPI creatinine equation. Calcium, Total, S 9.8 8.8 - 10.2 mg/dL 01/01/2022 12:0 9 PM [employer] DTL Glucose, S 90 70 - 140 mg/dL 01/01/2022 12:09 PM [employer] DTL Albumin, S 4.4 3.5 - 5.0 g/dL 01/01/2022 12:09 PM [employer] DTL Phosphorus (Inorganic), S 3.6 2.5 - 4.5 mg/dL 01/01/20 12:09 PM [employer] DTL Specimen Anatomical Collection Method Collection Time Receive d Time (Source) Location / / Volume Laterality Blood (Blood, 01/01/2022 11:03 01/01/2022 Venous) AM [employer] 11:41 AM [employer] Karuna Poole APRN, C.N.P., D.N.P. LAB BLOOD AD D-ON Performing Organization Address City/State/ZIP Code Phon e Number [facility] - [address] [place], [place] [address] [facility] [place] [address] [facility] 200 [facility] [place] CBC without Differential (01/01/2022 11:03 AM [employer]) P athologist Signature Hemoglobin 11.9 11.6 - 01/01/2022 DTL 15.0 g/dL 11:38 AM [employer] Hematocrit 37.6 35.5 - 01/01/2022 DTL 44.9 % 11:38 AM [employer] Erythrocytes 4.07 3.92 - 01/01/2022 DTL 5.13 11:38 AM [employer] x10(12)/L MCV 92.4 78.2 - 01/01/2022 DTL 97.9 fL 11:38 AM [employer] RBC Distrib Width 12.9 12.2 - 01/01/2022 DTL 16.1 % 11:38 AM [employer] Platelet Count 183 157 - 371 01/01/2022 DTL x10(9)/L 11:38 AM [employer] Leukocytes 5.5 3.4 - 9.6 01/01/2022 DTL x10(9)/L 11:38 AM [employer] Specimen Anatomical Collection Method Collection Time Receive d Time (Source) Location / / Volume Laterality Blood (Blood, 01/01/2022 11:03 01/01/2022 Venous) AM [employer] 11:26 AM [employer] Karuna Poole APRN C.N.P., D.N.P. LAB BLOOD AD D-ON Performing Organization Address City/State/ZIP Code Phon e Number [facility] - [address] [place], [place] [address] [facility] [place] [address] [facility] [address] documented in this encounter Visit Diagnoses Diagnosis Hypertension And Chronic Kidney Disease Stage 1 To 4 - Primary Chronic Kidney Disease Stage 4 Glomerula r Filtration Rate 15-29 (HCC) documented in this encounter Additional Health Concerns Assessment Noted Time PHQ-9 Depression Total Score: 15 03/22/2021 12:16 PM C DT documented as of this encounter
--- OUTSIDE RECORDS SUMMARY | 2022-10-07 10:42 | XMS_ITS | Encounter Summary ---
:1935 Author Organization [facility] Address [address] [place] [address] Care Team Providers Name Role Phone Unavailable Primary Care Provider Unavailable Encounter Details Date Type Department Care Team Description 09/17/2021 Hospital Encounter Department of Jerome Duong rtensive Chronic Laboratory Medicine Evette Zhang, Kidney D isease (CKD) and Pathology, Ph.D. Stage 3b Glomerular [facility] in [address] Filtration Rate [place], [place] (GFR) 30 To 44 (HCC) [place] [address] [address] [facility] [phone] [place], [place] (Work) [phone] Social History Tobacco Use Types Packs/Day Years [...] 1 to 4 times per year 03/2022 yarsanism services? Do you belong to any clubs [...] by 0 120-180 mg capsule mouth daily. Berry 3 (strength unknown) esomeprazole (NexIUM) 20 Take 20 mg by mouth [address] capsule as needed. Hardly ever GLUTATHIONE MISC Take 1 capsule by 0 mouth daily. (strength unknown) levothyroxine (SYNTHROID, Take 25 mcg by mouth 0 LEVOTHROID) 25 mcg tablet daily. lidocaine (LMX) 4 % cream Apply 1 application 30 g 3 0 03/06/2021 topically 3 (three) times a day as needed for pain. lisinopril-hydroCHLOROthi Take 1 tablet by 0 0 11/2014 azide mouth daily. (PRINZIDE,ZESTORETIC) 20-12.5 mg per tablet sennosides (SENNA LAX Take 1 tablet by 0 10/15/20 07 ORAL) mouth as needed. simvastatin (ZOCOR) 20 mg every other day. Two 0 08/26/2021 tablet tablets a week UNABLE TO FIND Nopalea juice - 1 0 shot daily vitamin C/biotin Take 1 capsule by 0 (MOEC-MWHL-EDANB, VIT mouth daily. C-BIOTIN, ORAL) VITAMIN K2 ORAL Take 1 capsule by 0 mouth daily. 120 mcg ZINC ACETATE ORAL Take 50 mg by mouth 0 daily. allopurinoL (ZYLOPRIM) Take 0.5 tablets (50 18 tablet 3 09/28/2021 100 mg tablet mg total) by mouth 3 (three) times a week. ketoconazole (NIZORAL) 2 Apply 1 application 30 g 1 09/28/2021 % cream topically 2 (two) times a day. Apply to right lateral abdomen twice daily for 4 weeks psyllium husk (METAMUCIL Take 1 scoopful by 0 03/26/2022 ORAL) mouth as needed. documented as of this encounter Plan of Treatment Not on filedocumented as of this encounter Procedures Procedure Name Priority Date/Time Associated Diagnosis Comme nts RENAL FUNCTION Routine 09/17/2021 8:47 AM Hypertensive Chronic Results for this PANEL, S CDT Kidney Disease (CKD) procedu re are in Stage 3b Glomerular the resu lts Filtration Rate (GFR) sectio n. 30 To 44 (HCC) CYSTATIN C WITH Routine 09/17/2021 8:47 AM Hypertensive Chroni c Results for this EGFR CDT Kidney Disease (CKD) procedu re are in Stage 3b Glomerular the resu lts Filtration Rate (GFR) sectio n. 30 To 44 (HCC) CBC WITH Routine 09/17/2021 8:47 AM Hypertensive Chronic R esults for this DIFFERENTIAL, B CDT Kidney Disease (CKD) proc edure are in Stage 3b Glomerular the resu lts Filtration Rate (GFR) sectio n. 30 To 44 (HCC) documented in this encounter Results (ABNORMAL) Renal Function Panel (09/17/2021 8:47 AM CDT) Analysis Performed At Patho logist Time Signature Potassium, S 4.8 3.6 - 5.2 09/17/2021 DTL mmol/L 10:19 AM CDT Sodium, S 143 135 - 145 09/17/2021 DTL mmol/L 10:19 AM CDT Chloride, S 106 98 - 107 09/17/2021 DTL mmol/L 10:19 AM CDT Bicarbonate, S 25 22 - 29 09/17/2021 DTL mmol/L 10:19 AM CDT Anion Gap 12 7 - 15 09/17/2021 DTL 10:19 AM CDT BUN (Blood Urea 39 (H) 6 - 21 09/17/2021 DTL Nitrogen), S mg/dL 10:19 AM CDT Creatinine 1.41 (H) 0.59 - 09/17/2021 DTL 1.04 mg/dL 10:19 AM CDT eGFR-Non 34 (L) >=60 09/17/2021 DTL Black/ mL/min/BSA 10:19 AM CDT Lithuanian Comment: ----ADDITIONAL INFORMATION---- Estimated GFR calculated using the 2009 CKD_EPI creatinine equation. eGFR-Black/ 40 (L) >=60 mL/min/BSA 2020 10:19 AM CDT DTL Comment: ----ADDITIONAL INFORMATION---- Estimated GFR calculated using the 2009 CKD_EPI creatinine equation. Calcium, Total, S 9.5 8.8 - 10.2 mg/dL 09/17/2021 10:1 9 AM CDT DTL Glucose, S 104 70 - 140 mg/dL 09/17/2021 10:19 AM CDT DTL Albumin, S 4.3 3.5 - 5.0 g/dL 09/17/2021 10:19 AM CDT DTL Phosphorus (Inorganic), S 3.6 2.5 - 4.5 mg/dL 09/17/20 10:19 AM CDT DTL Specimen Anatomical Collection Method Collection Time Receive d Time (Source) Location / / Volume Laterality Blood (Blood, 09/17/2021 8:47 AM 09/17/20 9:51 Venous) CDT AM CDT Leatha Kirk M.D., Ph.D. LAB BLOOD ADD-ON Performing Organization Address City/State/ZIP Code Phon e Number [facility] - [address] [place], [place] [address] [facility] [facility] [place] [address] Laboratories-[address] (ABNORMAL) Cystatin C with Estimated GFR, S (09/17/2021 8:47 AM CDT) P athologist Signature eGFR by 29 (L) >60 09/17/2021 DTL Cystatin C mL/min/BSA 10:19 AM CDT Comment: Estimated GFR calculated using [...] lower with the new assay. Cystatin C 1.87 (H) 0.67 - 1.21 mg/L 09/17/2021 10:19 AM CD T DTL Specimen Anatomical Collection Method Collection Time Receive d Time (Source) Location / / Volume Laterality Blood (Blood, 09/17/2021 8:47 AM 09/17/20 9:51 Venous) CDT AM CDT Leatha Kirk M.D., Ph.D. LAB BLOOD ADD-ON Performing Organization Address City/State/ZIP Code Phon e Number [facility] - [address] [place], [place] [address] [place] [address] Laboratories-[address] (ABNORMAL) CBC with Differential, Blood (09/17/2021 8:47 AM CDT) Patholo gist Method Time Signature Hemoglobin 12.5 11.6 - 09/17/2021 DTL 15.0 g/dL 9:37 AM CDT Hematocrit 39.4 35.5 - 09/17/2021 DTL 44.9 % 9:37 AM CDT Erythrocytes 4.21 3.92 - 09/17/2021 DTL 5.13 9:37 AM CDT x10(12)/L MCV 93.6 78.2 - 09/17/2021 DTL 97.9 fL 9:37 AM CDT RBC Distrib Width 13.2 12.2 - 09/17/2021 DTL 16.1 % 9:37 AM CDT Platelet Count 210 157 - 371 09/17/2021 DTL x10(9)/L 9:37 AM CDT Leukocytes 5.8 3.4 - 9.6 09/17/2021 DTL x10(9)/L 9:37 AM CDT Neutrophils 4.49 1.56 - 09/17/2021 DTL 6.45 9:37 AM CDT x10(9)/L Lymphocytes 0.76 (L) 0.95 - 09/17/2021 DTL 3.07 9:37 AM CDT x10(9)/L Monocytes 0.39 0.26 - 09/17/2021 DTL 0.81 9:37 AM CDT x10(9)/L Eosinophils 0.12 0.03 - 09/17/2021 DTL 0.48 9:37 AM CDT x10(9)/L Basophils <0.03 0.01 - 09/17/2021 DTL 0.08 9:37 AM CDT x10(9)/L Specimen Anatomical Collection Method Collection Time Receive d Time (Source) Location / / Volume Laterality Blood (Blood, 09/17/2021 8:47 AM 09/17/20 21 9:13 Venous) CDT AM CDT Leatha Kirk M.D., Ph.D. LAB BLOOD ADD-ON Performing Organization Address City/State/ZIP Code Phon e Number [facility] - [address] [place] [address] [facility] [place] [address] [facility] [address] documented in this encounter Visit Diagnoses Diagnosis Hypertensive Chronic Kidney Disease (CKD ) Stage 3b Glomerular Filtration Rate (GFR) 30 To 44 (HCC) documented in this encounter Additional Health Concerns Assessment Noted Time PHQ-9 Depression Total Score: 15 03/22/2021 12:16 PM C DT documented as of this encounter
--- OUTSIDE RECORDS SUMMARY | 2022-10-07 10:42 | XMS_ITS | Encounter Summary ---
:1935 Author Organization [facility] Address [address] [place] [address] Care Team Providers Name Role Phone Unavailable Primary Care Provider Unavailable Encounter Details Date Type Department Care Team Description 09/17/2021 Clinical Communication Division of [facility]ocrinology in , Leatha Boateng M.D. [place], [place] [address] [facility] [address] [place] [phone] Social History Tobacco Use Types Packs/Day Years [...] this encounter Miscellaneous Notes Telephone Encounter - Sheridan Mcallister - 09/17/2021 2:12 PM CDT Charlene Romero, Mrs. Yap was here seeing Ceci Guaman today. She saw you last April. She is interested in starting a weight loss medication. You mentioned follow up in your note, but I need an order please.Wouldthat have to be face to face? She asked if a phone call would be sufficient, but I mentioned we are limiting phone visits. She is not able to do Video as she is not on the Portal yet. Thank you, Sheridan documented in this encounter Plan of Treatment Not on filedocumented as of this encounter Visit Diagnoses Not on filedocumented in this encounter Additional Health Concerns Assessment Noted Time PHQ-9 Depression Total Score: 15 03/22/2021 12:16 PM C DT documented as of this encounter
--- OUTSIDE RECORDS SUMMARY | 2022-10-07 10:42 | XMS_ITS | Encounter Summary ---
:1935 Author Organization [facility] Address [address] [place] [address] Care Team Providers Name Role Phone Unavailable Primary Care Provider Unavailable Encounter Details Date Type Department Care Team Description 08/08/2021 Virtual Visit Division of Pain Mima Fountain, Pain Low Back Medicine in P.Barney.Rere., M.S. Unspecified (Primary [place], [place] [address] [facility]) [address] [place] [phone] Social History Tobacco Use Types Packs/Day Years [...] 1 to 4 times per year 03/2022 religion services? Do you belong to any clubs [...] CDT documented as of this encounter Progress Mima Adam P.A.-C., M.S. - 08/08/2021 11:30 AM CDT SUBJECTIVE Limited evaluation conducted via telephone technology by Mima Fountain P.A.-C., M.S. to the patientin Patient's home. CHIEF COMPLAINT Low back pain Preprocedure phone visit. HISTORY OF PRESENT ILLNESS Today's visit was conducted as a telephone encounter at a time when many areas were on orders to stay at home amid the COVID19 pandemic. Vielka Yap is a 85 y.o. female with a past medical history of chronic low back pain. She is referred to the pain clinic by Dr. East for consideration of Interlaminar L5-S1 epidural steroid injection. She has previously undergone these injection in the past with improvement in pain. Vielka Yap localizes pain to the low back region. This pain is described as constant pain. This pain radiates in to the hips. This pain is worse with prolonged standing and walking. This pain is improved with lying down. She notes intermittent numbness in the left leg with prolonged sitting. Vielka Yap denies weakness in the lower extremities. Patient denies any new changes to bowel or bladder function. She notes chronic urinary incontinance. Patient denies any recent fevers, chills, infections or antibiotic use. She describes some vaginal soreness with urination. She has concerns of possible urinary tract infection. Patient has no allergies to local anesthetic or to contrast. Patient no blood thinning medications. Imaging: Lumbar MRI 06/15/2021 IMPRESSION: 1. Lumbar spondylosis, as described, with mild scattered lateral recess narrowing (worst at L3-4), but no significant spinal canal stenosis. 2. Foraminal stenoses are moderate on the left at L2 and L4, and mild elsewhere. 2. 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 The following portions of the patient's history [...] other symptoms which may be of concern. ASSESSMENT / PLAN #1 Pain Low Back PLAN 1. Other: Mrs. Yap was recommended to follow-up with her local primary care provider to rule out an infection. She has previously seen GIM here and would like to follow-up with them is possible. Ema send a message to Dr. Portillo who has seen her in the past. 2. Intervention: Vielka Yap is being referred today for consideration of a InterlaminarL5-S1 epidural injection. There are no contraindications undergoing this procedure at this time. Therisks, benefits, and alternatives to the planned procedure were discussed in detail, including the risk of exposure to COVID-19 within the facility. The patient was informed of mask policy and understands to wear a mask for the duration of appointments. All questions pertaining to the procedure and these risks were answered and the patient agreed to proceed. The patient was instructed to allow 2 weeks for benefit of the procedure. The informed consent was created and reviewed and will be signed prior to the procedure. 3. Follow-up: Vielka Yap will follow up with Dr. East following this procedure. Patient Education: Ready to learn, no apparent learning barriers were identified; learning preferences include listening. Explained diagnosis and treatment plan; patient/child/caregiver expressed understanding of the content. I personally spent a total 15 minutes with the patient in counseling, discussion and/or coordinationof care as described above. Addendum 08/09/2021 I received a message back from Dr. Portillo would evaluate the patient in [facility]. Recommendations were for the patient to follow up with her local primary care provider. I will reach out to the patient next week prior to her injection to verify that she was seen by her local primary care provider and there are no concerns with an infection. documented in this encounter Plan of Treatment Not on filedocumented as of this encounter Visit Diagnoses Diagnosis Pain Low Back Unspecified - Primary documented in this encounter Additional Health Concerns Assessment Noted Time PHQ-9 Depression Total Score: 15 03/22/2021 12:16 PM C DT documented as of this encounter
--- OUTSIDE RECORDS SUMMARY | 2022-10-07 10:42 | XMS_ITS | Encounter Summary ---
:[address] [facility] Address [address] [place] [address] Care Team Providers Name Role Phone Unavailable Primary Care Provider Unavailable Encounter Details Date Type Department Care Team Description 09/17/2021 Hospital Encounter Department of Jerome Duong rtensive Chronic Laboratory Medicine Evette Zhang, Kidney D isease (CKD) and Pathology, Ph.D. Stage 3b Glomerular [facility] in [address] Filtration Rate [place], [place] (GFR) 30 To 44 (HCC) [place] [address] [address] [facility] [phone] [place], [place] (Work) [phone] Social History Tobacco Use Types Packs/Day Years [...] by 0 120-180 mg capsule mouth daily. [place] 3 (strength unknown) esomeprazole (NexIUM) 20 Take [...] vitamin C/biotin Take 1 capsule by 0 ([id number], VIT mouth daily. C-BIOTIN, ORAL) VITAMIN K2 [...] Associated Diagnosis Comme nts DIPSTICK, U Routine 09/17/2021 9:03 AM Results f or this CDT procedure are i n the results section. MICROSCOPIC Routine 09/17/2021 9:03 AM Results f or this AUTOMATED CDT procedure are i n the results section. PH, U Routine 09/17/2021 9:03 AM Results f or this CDT procedure are i n the results section. PROTEIN/CREATININE Routine 09/17/2021 9:03 AM Hypertensive Chr onic Results for this RATIO, RANDOM, URINE CDT Kidney Disease (CKD) procedure are in Stage 3b Glomerular the resu lts Filtration Rate (GFR) sectio n. 30 To 44 (HCC) OSMOLALITY, U Routine 09/17/2021 9:03 AM Results for this CDT procedure are i n the results section. URINALYSIS WITH Routine 09/17/2021 9:03 AM Hypertensive Chroni c Results for this MICROSCOPIC CDT Kidney Disease (CKD) procedu re are in Stage 3b Glomerular the resu lts Filtration Rate (GFR) sectio n. 30 To 44 (HCC) documented in this encounter Results pH, Urine (09/17/2021 9:03 AM CDT) athologist Signature pH, U 5.4 4.5 - 8.0 09/17/2021 10:36 DTL AM CDT Specimen Anatomical Collection Method Collection Time Receive d Time (Source) Location / / Volume Laterality Urine 09/17/2021 9:03 AM 9:33 CDT AM CDT Leatha Kirk M.D., Ph.D. LAB URINE ORDERABLES Performing Organization Address City/[facility] Phon e Number [facility] - [address] Osmolality, Urine (09/17/2021 9:03 AM CDT) athologist Signature Osmolality, U 512 150 - 1150 09/17/2021 DTL mOsm/kg 10:36 AM CDT Specimen Anatomical Collection Method Collection Time Receive d Time (Source) Location / / Volume Laterality Urine 09/17/2021 9:03 AM 9:33 CDT AM CDT Leatha Kirk M.D., Ph.D. LAB URINE ORDERABLES Performing Organization Address City/[facility] Phon e Number [facility] - [address] (ABNORMAL) Microscopic Automated (09/17/2021 9:03 AM CDT) athologist Signature Microscopy Abnormal 09/17/2021 DTL 10:12 AM CDT WBC 21-30 (A) /hpf 09/17/2021 DTL 10:12 AM CDT Comment: ----REFERENCE VALUE---- 1-3 ??(Males) 1-10 (Females) Specimen Anatomical Collection Method Collection Time Receive d Time (Source) Location / / Volume Laterality Urine 09/17/2021 9:03 AM 9:33 CDT AM CDT Leatha Kirk M.D., Ph.D. LAB URINE ORDERABLES Performing Organization Address City/[facility] Phon e Number [facility] - [address] [place], [place] [address] [place] [place] [address] Laboratories-[facility] 200 [facility] (ABNORMAL) Dipstick, Urine (09/17/2021 9:03 AM CDT) [facility] Phase Focus Method Time Signature Hemoglobin, Negative Negative 09/17/2021 DTL QL 10:12 AM CDT Leukocyte Moderate (A) Negative 09/17/2021 DTL Esterase, U 10:12 AM CDT Nitrite, U Negative Negative 09/17/2021 DTL 10:12 AM CDT Ketones, U Negative Negative 09/17/2021 DTL mg/dL 10:12 AM CDT Glucose, U Negative Negative 09/17/2021 DTL mg/dL 10:12 AM CDT Specimen Anatomical Collection Method Collection Time Receive d Time (Source) Location / / Volume Laterality Urine 09/17/2021 9:03 AM 9:33 CDT AM CDT Leatha Kirk M.D., Ph.D. LAB URINE ORDERABLES Performing Organization Address City/[facility] Phon e Number [facility] - [address] [place], [place] [address] [place] [place] [address] Laboratories-[address] Urinalysis with Microscopic: Urine, Midstream (09/17/2021 9:03 AM CDT) [facility] Phase Focus Method Time Signature Source Urine, Urine, 09/17/2021 DTL Midstream 9:33 AM CDT Color, U Yellow 09/17/2021 DTL 9:33 AM CDT Clarity, U Clear 09/17/2021 DTL 9:33 AM CDT Protein, U 8 <26 mg/dL 09/17/2021 DTL 10:47 AM CDT Protein/Osmol 0.16 <0.42 09/17/2021 DTL ality ratio 10:47 AM CDT Predicted 24 124 mg/24 h 09/17/2021 DTL Hr Protein 10:47 AM CDT Predicted 31-502 mg/24 h 09/17/2021 DTL Range 10:47 AM CDT Specimen Anatomical Collection Method Collection Time Receive d Time (Source) Location / / Volume Laterality Urine (Urine, 09/17/2021 9:03 AM 09/17/20 9:33 Midstream) CDT AM CDT Leatha Kirk M.D., Ph.D. LAB URINE ORDERABLES Performing Organization Address City/[facility] Phon e Number [facility] - [address] [place], [place] [address] [place] [place] [address] Protein/Creatinine Ratio, Random, Urine (09/17/2021 9:03 AM CDT) P athologist Signature Protein, Total, 8 mg/dL 09/17/2021 DTL Random, U 10:47 AM CDT Creatinine, 59 16 - 326 09/17/2021 DTL Random, U mg/dL 10:47 AM CDT Protein/Creatin 0.14 <0.18 mg/mg 09/17/2021 DTL ine Ratio 10:47 AM CDT Specimen Anatomical Collection Method Collection Time Receive d Time (Source) Location / / Volume Laterality Urine (Urine, 09/17/2021 9:03 AM 09/17/20 9:33 Midstream) CDT AM CDT Leatha Kirk M.D., Ph.D. LAB URINE ORDERABLES Performing Organization Address City/[facility] Phon e Number [facility] - [address] [place], [place] [address] [facility] [place] [id number] [place] [address] documented in this encounter Visit Diagnoses Diagnosis Hypertensive Chronic Kidney Disease (CKD ) Stage 3b Glomerular Filtration Rate (GFR) 30 To 44 (HCC) documented in this encounter Additional Health Concerns Assessment Noted Time PHQ-9 Depression Total Score: 15 03/22/2021 12:16 PM C DT documented as of this encounter
--- OUTSIDE RECORDS SUMMARY | 2022-10-07 10:42 | XMS_ITS | Encounter Summary ---
:1935 Author Organization [facility] Address [address] [place] [address] Care Team Providers Name Role Phone Unavailable Primary Care Provider Unavailable Encounter Details Date Type Department Care Team Description 09/17/2021 Hospital Encounter Department of Jerome Duong rtensive Chronic Laboratory Medicine Evette Zhang, Kidney D isease (CKD) and Pathology, Ph.D. Stage 3b Glomerular [place] 200 [facility] Filtration Rate Building, in [place], [place] (GFR) 30 To 44 (HCC) [facility] [address] [place] [phone] [address] [facility] (Work) [place], [place] [phone] (Fax) [phone] Social History Tobacco Use Types Packs/Day Years [...] or relatives? How often do you attend cheondoism or 1 to 4 times per year 03/2022 scientology services? Do you belong to any clubs or No 02/19/2022 organizations such as cheondoism groups, unions, fraternal or athletic groups, or [...] by 0 120-180 mg capsule mouth daily. [place] 3 (strength unknown) esomeprazole (NexIUM) 20 Take [...] TO FIND Med Name: Serovital 0 Advanced vitamin C/biotin Take 1 capsule by 0 ([id number], VIT mouth daily. C-BIOTIN, ORAL) VITAMIN K2 [...]
--- OUTSIDE RECORDS SUMMARY | 2022-10-07 10:42 | XMS_ITS | Encounter Summary ---
:1935 Author Organization [facility] Address [address] [place] [address] Care Team Providers Name Role Phone Unavailable Primary Care Provider Unavailable Reason for Visit Physical Therapy (Routine) - Canceled Specialty Diagnoses / Procedures Referred By Contact Refer red To Contact Diagnoses Lymphedema Rst r [facility] Procedures PT Ongoing treatment [address] [place] [phone] Referral ID Status Reason Start Date Expiration Date Visits V isits Requested Authorized [id number] Canceled 09/24/2021 09/24/2022 15 15 Encounter Details Date Type Department Care Team Description 09/28/2021 Clinical Support Department of Physical Juanito Rodriguez M.D. [address] [place] [phone] Lymphedema Medicine and [facility] D.P.T., ABPTS-ONC [address] [place] [phone] Rehabilitation in [place], [place] [address] [place] [phone] Social History Tobacco Use Types Packs/Day [...] documented as of this encounter Progress Notes [facility] D.P.T. - 09/28/2021 1:00 PM CST Physical Therapy Lymphedema Outpatient Progress Note Patient's Name: Vielka Yap Referring Provider: No ref. provider found Rehab Diagnosis: 1. Lymphedema Reason for Referral: Physical therapy evaluation and treat, bilateral lower extremity edema History of Present Illness: Patient is an 85-year-old female presenting with bilateral lower extremity distal to the knee. She does bring in her different compression stockings though states these are difficult to tolerate and Don. She also brings in a stocking that she uses if she has to put compression stockings on. She did take 2 doses of 40 mg of her diuretic yesterday, though she was instructed to discontinue this medication. Onset Date: 03/27/21 Payor: MEDICARE / Plan: MEDICARE A AND B / Product Type: Medicare / SUBJECTIVE Patient/Caregiver Goals: Decreased lower extremity edema Interval History: patient presents for follow up regarding her chronic edema, multifactorial knee distal bilateral. Patient arrives with knee high compression garments donned. States she has noticed more swelling in the toes and dorsum of feet, creating a dome shape intermittently. She notices an increase in toe and foot swelling after eating and at night. Has been working on loosing weight via diet. Total Visit Count: 7 OBJECTIVE Right Lower Extremity 09/28/2021 10 cm 24.5 20 cm 27.9 30 cm 36.9 40 cm 41.4 50 cm 42.5 60 cm 70 cm 80 cm 90 cm Lymph Volume (L) 4009.2 ml Change in Volume (ml) -54.5 ml Change from initial Edema % -1.34 % Left Lower Extremity 09/28/2021 10 cm 23.1 20 cm 26.9 30 cm 34.5 40 cm 37 50 cm 41.2 60 cm 70 cm 80 cm 90 cm Lymph Volume (L) 3487.3 ml Change in Volume (ml) -24.45 ml Change from initial Edema % -0.7 % Appreciate reduction bilaterally, congratulated her on her consistency. ?? Edema:1+ pitting on the dorsum of bilateral feet into the distal lower leg, bilateral thighs are spared. ??1+ pitting in the dorsum of the toes, big through fourth toe. Skin is dry and flaky, slight erythema distally bilateral, though no concern for infection.??There is significant redness on the third toe distal phalanx, appears to be due to friction/irritation possible from the shoes. TREATMENT Therapeutic activity: Reassessment completed. Patient continues to have ongoing, fluctuating edema in bilateral dorsum of feet and into the toes. Unable to see between toes. Patient inquiring about who/how to have someone clean and trim toes, recommend movie writer. She has previously been treated by a local movie writer, though was not impressed and left unhappy. She states she will reach out to her local primary care provider to seek an alternative movie writer. Reviewed the importance of frequent toe hygiene in decreasing risk of infection. Discussed compressive options to address the toe swelling, unfortunately patient does not wish to bandage each toe individually due to tedious application. We also reviewed the option of a top cap, though at this time patient would prefer to defer this option as well given finical investment and the need to obtain new compression garments that would be open toe. Ultimately will trial coban compression to each toe individually. Instructed patient to don the coban at nighttime and put on a normal sockover this to keep the coban in place. Should she wear her velcro devices during the daytime, she could don the coban and put on her shoe. Reviewed the importance of daily skin checks for skin integrity, breakdown, or blistering. To examine between toes as well. Instructed to don coban once skin is completely dry, not to don immediately after applying her lotion. No further questions or concerns. She will contact department on as needed basis. Home Exercise Program/Education: 20-30mmHg knee high compression garment during daytime, optional velcro device during daytime Coban toe wraps with normal sock at night, optional velcro device at nighttime Contact monitoring: PPE used during therapy: Therapist was wearing the following PPE throughout entire session: surgicalmask and eye protection Patient was wearing a mask during therapy session: yes Family member/caregiver present was wearing a mask: yes Assessment Chronic, multifactorial bilateral lower extremity edema distal to knees. Patient presents with ongoing/worsening toe and dorsum of feet swelling, 1+ pitting observed. Otherwise, she has actually reduced throughout the bilateral lower extremity per 10cm measurements. Congratulated her on ongoing weightloss efforts, diet and exercise. She will don coban to each individual toe at nighttime, in hopes ofreduction. Discussed toe cap for daytime use, though patient would like to defer at this time. Functional Goals and Timeframes: Lymphedema OT/PT Goals Goal #1: Patient will be independent with this effective lymphedema management plan. Goal #1 Date: 06/25/21 Plan TREATMENT PLAN Number of Visits: up to 5 visits Frequency: Recheck when returning for other appointments Plan: Continue with current plan Plan Comments: Patient returning home this date. WIll continue with established plan. She will contact department in future if needed. Treatment interventions may include: Therapeutic exercise,Therapeutic functional activity,Neuromuscular re-education,Gait training Daytime Compression Program: Lower extremity compression sock Daytime Compression Program Additional Details: Bilateral knee-high 20-30 mmHg. Optional Velcro device. Nighttime Compression Program: Compression devices (comment) Nighttime Compression Program Additional Details: Velcro wraps bilateral knee high optional. Coban on toes with normal noncompressive sock to secure coban in place PT: Time Spent with Patient Therapeutic Activity (min): 39 min Time Calculation Total Timed Units (min): 39 min Total Treatment Time (min): 39 min [facility] P.T[facility] D.P.T. CH SCIENTIST documented in this encounter Plan of Treatment Not on filedocumented as of this encounter Visit Diagnoses Diagnosis Lymphedema documented in this encounter Additional Health Concerns Assessment Noted Time PHQ-9 Depression Total Score: 15 03/22/2021 12:16 PM C DT documented as of this encounter
--- OUTSIDE RECORDS SUMMARY | 2022-10-07 10:43 | XMS_ITS | Encounter Summary ---
:1935 Author Organization [facility] Address [address] [place] [address] Care Team Providers Name Role Phone Unavailable Primary Care Provider Unavailable Reason for Referral Outpatient (Routine) - Closed Specialty Diagnoses / Procedures Referred By Contact Refer red To Contact Diagnoses Hypertensive Chronic Kidney Disease (CKD) Stage 3b Glomerular Filtration Rate (GFR) 30 To 44 (HCC) [facility] Kidneys with Renal Artery Doppler Evette, Ph.D. [address] [place] [address] Referral ID Status Reason Start Date Expiration Date Visits Requ ested Visits Authorized [id number] Closed 05/11/2021 05/11/2022 1 1 utpatient (Routine) - Closed Specialty Diagnoses / Procedures Referred By Contact Refer red To Contact Nephrology and Brennan Kirk Enid Gui Zhang M.D., Ph.D. [address] [place] [address] Referral ID Status Reason Start Date Expiration Date Visits Requ ested Visits Authorized [id number] Closed 05/11/2021 05/11/2022 1 1 Reason for Visit Outpatient (Routine) - Closed Specialty Diagnoses / Procedures Referred By Contact Refer red To Contact Nephrology and Diagnoses Hypertensive Chronic Kidney Disease (CKD) Stage 3b Glomerular Filtration Rate (GFR) 30 To 44 ([facility]) Phuong Portillo [facility] Hypertension AEvette [address] [place] [address] Referral ID Status Reason Start Date Expiration Date Visits Requ ested Visits Authorized [id number] Closed 03/22/2021 03/22/2022 1 1 Encounter Details Date Type Department Care Team Description 05/11/2021 Comprehensive Visit Division of Brennan whitten Nephrology and Leatha Kirk Chronic Kid jones Hypertension in Evette, Ph.D. Disease (CKD) Stage [place], [place] [address] [facility] 3b Glomerular [address] [place], [place] [address] (GFR) 30 To 44 [id number] (HCC) Social History Tobacco Use Types Packs/Day Years [...] 1 to 4 times per year 03/2022 temple services? Do you belong to any clubs [...] Pressure - - Pulse - - Temperature 35.7 ??C (96.3 ??F) 05/11/2021 8:39 AM CDT Respiratory Rate - - Oxygen Saturation - - Inhaled Oxygen Concentration - - Weight 120 kg (265 lb 6.9 oz) 05/11/2021 8:39 AM CDT Height - - Body Mass Index 43.48 05/10/2021 10:31 AM CDT documented in this encounter Consult Notes Leatha Duong M.D., Ph.D. - 05/11/2021 9:00 AM CDT Referring Provider: Phuong Portillo M.D. Reason for Consult: CKD stage 4 management History of Present Illness: Vielka Yap is a 85 y.o. female with longstanding history of hypertension diagnosed morethan 10 years ago. Her blood pressure usually running in the 130s to 150s over 90s. She does not have history of diabetes. She has chronic use of NSAIDs, she used to take Aleve for many years and stopped taking it 2 years ago, however she switched to Celebrex 200 mg twice a day that she has been taking for the last 1.5 years. She has chronic knee and hip pains, and hand osteoarthritis. She follows a low-salt diet. She is interested in getting more active so she can lose some weight. She tries to follow a low-carbohydrate diet, she has increased her protein intake for this reason. She has sister with a history of kidney cancer. She has another sister that was born with 4 kidneys. Patient was a premature baby with a weight of 4 lb. She has chronic lower extremity edema that is related to venous stasis, and she follows in the lymphedema Clinic for that. Past Medical History: Diagnosis Date ??? Chronic Kidney Disease Stage 4 Glomerular Filtration Rate 15-29 ([facility]) 05/10/2021 ??? Dysuria 03/26/2021 ??? Gastroesophageal Reflux Disease NOS ??? Hyperlipidemia On Treatment ??? Hypertension Personal History ??? Hypothyroidism ??? Incompetence Chronotropic 05/10/2021 ??? Irritable Bowel Syndrome Without Diarrhea ??? Lymphedema ??? Morbid Obesity Body Mass Index 40.0-44.9 Adult ([facility]) ??? Obstructive Sleep Apnea Adult ??? Osteoporosis ??? Other Specified Heart Block 05/10/2021 Past Surgical History: Procedure Laterality Date ??? SECTION 2 ??? DILATATION AND CURETTAGE 7 ??? OTHER CONVERTED SHX (SEE COMMENT) N/A 10/11/2008 >Excision With Layered Closure. ??? OTHER CONVERTED SHX (SEE COMMENT) N/A 10/28/2008 >1. Exploration right peroneal nerve. 2. Decompression at fibular neck. ??? TONSILLECTOMY Active Home Medications Medication Sig Taking acetaminophen (TYLENOL 8 HR) 650 mg ER tablet Take 650-1,300 mg by mouth as needed. buPROPion XL (WELLBUTRIN XL) 300 mg 24 hr tablet Take 300 mg by mouth daily. buPROPion XL (WELLBUTRIN XL) 300 mg 24 hr tablet Take 300 mg by mouth daily. calcium carb,gluc/mag ox,gluc (CALCIUM MAGNESIUM ORAL) Take 1 tablet by mouth daily. Calcium 500 mg,magnesium 200 mg, boron 1000 mcg,Vitamin 3 mg, Vitamin D3 6.25 mcg celecoxib (CeleBREX) 200 mg capsule Take 400 mg by mouth every morning. cholecalciferol (Vitamin D3) 50 mcg (2,000 Unit) tablet Take 50 mcg by mouth daily. coenzyme Q10 (CO Q-10) 200 mg capsule Take 200 mg by mouth daily. collagen, hydrolysate, bovine, (collagen, hydr, bovine,, bulk,) 100 % powder as needed. One scoop PRN docosahexaenoic acid-epa 120-180 mg capsule Take 2 capsules by mouth daily. [place] 3 (strength unknown) esomeprazole (NexIUM) [address] capsule Take 20 mg by mouth as needed. GLUTATHIONE MISC Take 1 capsule by mouth daily. (strength unknown) levothyroxine (SYNTHROID, LEVOTHROID) 25 mcg tablet Take 25 mcg by mouth daily. lidocaine (LMX) 4 % cream Apply 1 application topically 3 (three) times a day as needed for pain. lisinopril-hydroCHLOROthiazide (PRINZIDE,ZESTORETIC) 20-12.5 mg per tablet Take 1 tablet by mouth daily. oxybutynin (DITROPAN-XL) 10 mg 24 hr tablet Take 1 tablet by mouth every other day. psyllium husk (METAMUCIL ORAL) Take 1 scoopful by mouth as needed. sennosides (SENNA LAX ORAL) Take 1 tablet by mouth as needed. traMADoL (ULTRAM) 50 mg tablet Take 50 mg by mouth as needed. UNABLE TO FIND Pro Digest 1-2 caps daily UNABLE TO FIND Nerve Formula - 2 tabs daily UNABLE TO FIND Nopalea juice - 1 shot daily UNABLE TO FIND Phytoceramides - 1 cap daily vitamin C/biotin ([id number]-[id number], VIT C-BIOTIN, ORAL) Take 1 capsule by mouth daily. VITAMIN K2 ORAL Take 1 capsule by mouth daily. 120 mcg ZINC ACETATE ORAL Take 50 mg by mouth daily. Allergies Allergen Reactions ??? Amoxicillin-Pot Clavulanate Nausea And Vomiting ??? Ibuprofen Other (see comments) in large quantities- personality change ??? Tazobactam Nausea Only ??? Tetracycline Other (see comments) Yeast infection Social History Tobacco Use ??? Smoking status: Never Smoker ??? Smokeless tobacco: Never Used Substance Use Topics ??? Alcohol use: Yes Alcohol/week: 3.0 standard drinks Types: 3 Glasses of wine per week No family history on file. Review of system: - 12 point review of systems was done which is negative other than mentioned in the HPI. Blood pressure 147/72 pulse 60 Physical Exam General: Awake, alert, oriented. No acute distress is observed. HEENT: JACIN[place], EOMI, Mucous membranes moist, no oral lesions Neck: No Masses, No Bruits Lungs: Clear to ascultation, no rhonchi, no wheezes. Heart: Regular Rate and Rhythm, No ectopy Murmurs or rubs Abdomen: Soft, Non-tender, present bowel sounds, no hyperactive. Extremities: No cyanosis, No clubbing, No edema Neuro: Cranial Nerves intact, Skin: no suspicious lesions identified Psychiatric: Normal affect LABS: Reviewed available labs ASSESSMENT & PLAN #1 CKD stage 4 in the setting of NSAID use #2 Hypertension #3 Hyperuricemia #4 Mildly atrophic left kidney Mrs. Vielka Yap is referred to Nephrology for evaluation of her CKD. We have extensively discussed about the stages of CKD and patient's current status. She is at CKD stage 4. She does nothave proteinuria, no hematuria in prior urinalysis. We will repeat those today. CKD likely related to her chronic use of NSAIDs. I have recommended patient to discontinue its use as much as possible and to try had Tylenol on schedule. We discussed about the importance of controlling protein concentration in urine by lowering the saltintake, controlling blood pressure, reducing weight. BP goal is <140/90 for her age, I have recommended patient to check BP regularly at home, to keepa record of blood pressure readings, if BP is still not at goal, medications will be adjusted. No changes made to her regimen today. We will reassess next visit when she brings some blood pressure readings from home. I have discussed extensively with patient about risk of developing CKD progression if BP is not wellcontrolled. I recommended patient to follow a low salt diet and to exercise regularly. Loosing weight will be ideal to improve blood pressure, and cardiovascular outcomes. Patient verbalizes understanding. Patient has elevated uric acid she will benefit from starting on allopurinol. I will start medication to be taking 3 times per week. Prescription sent to her pharmacy. I have reviewed kidney ultrasound that shows left kidney measuring 8 cm versus right kidney measuring 9 cm. Unclear if there is renal artery stenosis. I will also order a kidney ultrasound with Dopplerto further evaluate. Patient to be enrolled in CKD clinic, return visit in 3 months. Yadi Kirk M.D., Ph.D. Nephrology and Hypertension documented in this encounter Plan of Treatment Scheduled Referrals Name Type Priority Associated Order Schedule Diagnoses Nephrology nurse Outpatient Referral Routine Expe cted: visit (clinic) 08/11/2021 (Approximate), Expires: 05/11/2024 documented as of this encounter Results Urinalysis with Microscopic: Urine, Midstream (09/17/2021 9:03 AM CDT) Patholo gist Method Time Signature Source Urine, Urine, 09/17/2021 [...] Ph.D. LAB URINE ORDERABLES Performing Organization Address City/[facility]/ZIP Code Phon e Number [facility] - [address] [place], [place] [address] [facility] [place] [address] Laboratories-[facility] [address] [facility] Protein/Creatinine Ratio, Random, Urine (09/17/2021 9:03 AM [...] Ph.D. LAB URINE ORDERABLES Performing Organization Address City/State/ZIP Code Phon e Number [facility] - [address] [place], [place] [address] [facility] [place] [address] Laboratories-[facility] [address] [facility] (ABNORMAL) Renal Function Panel (09/17/2021 8:47 AM [...] 09/17/2021 DTL Black/ mL/min/BSA 10:19 AM CDT Armenian Comment: ----ADDITIONAL INFORMATION---- Estimated GFR calculated using [...] Ph.D. LAB BLOOD ADD-ON Performing Organization Address City/[facility]/ZIP Code Phon e Number [facility] - [address] [place], [place] [address] [facility] [place] [address] Laboratories-[address] (ABNORMAL) Cystatin C with Estimated GFR, [...] Organization Address City/State/ZIP Code Phon e Number [facility] - [address] [place], [place] [address] [facility] [place] [address] Laboratories-[address] (ABNORMAL) CBC with Differential, Blood (09/17/2021 [...] Organization Address City/State/ZIP Code Phon e Number [facility] - [address] [place], [place] [address] [facility] [place] [address] Laboratories-[facility] [address] [facility] US Kidneys with Renal Artery Doppler (05/15/2021 3:35 PM CDT) Anatomical Region Laterality Modality Abdomen, Renal, Ultrasound RST LOS, Ultrasound ARZ LOS, N/A Ultrasound Ultrasound FLA LOS, Procedural Specimen (Source) Anatomical Collection Method Collection Time Re ceived Time Location / / Volume Laterality 05/15/2021 3:36 PM CDT Impressions 05/15/2021 3:40 PM CDT No renal artery stenosis. No hydronephro sis. Narrative 05/15/2021 3:40 PM CDT EXAM: US KIDNEYS WITH RENAL ARTERY DOPPLER Exam performed with color and spectral D oppler analysis. COMPARISON: Renal ultrasound dated 03/31. FINDINGS: Right kidney: Normal echogenicity and pa renchymal thickness. No hydronephrosis. Cysts with the largest one measuring 3.2 cm in size. Right renal artery: Negative for stenosi s; single vessel well seen. ?? Left kidney: Thinned and mildly echogeni c parenchyma. No hydronephrosis. Cysts with the largest one measuring 3.3 cm in size. Left renal artery: Negative for stenosis ; single vessel well seen. ?? Right Renal Measurements: Right renal length: 9.3 cm Right segmental artery - upper pole RI: 0.73 Right segmental artery - lower pole RI: 0.81 Right renal artery origin PSV: 141 cm/s Right renal artery prox PSV: 133 cm/s Right renal artery mid PSV: 100 cm/s Right renal artery distal PSV: 56 cm/s Left Renal Measurements: Left renal length: 9.7 cm Left segmental artery - upper pole RI: 0 .85 Left segmental artery - lower pole RI: 0 .82 Left renal artery origin PSV: 61 cm/s Left renal artery prox PSV: 61 cm/s Left renal artery mid PSV: 71 cm/s Left renal artery distal PSV: 82 cm/s Aorta: Normal caliber. Aorta PSV: 78 cm/s Bladder: Normal. Incidentally noted is diffuse hepatic st eatosis. Procedure Note Syed Carmona M.D. - 05/15/2021Forma tting of this note might be different from the original. EXAM: US KIDNEYS WITH RENAL ARTERY DOPPL ER Exam performed with color and spectral D oppler analysis. COMPARISON: Renal ultrasound dated 03/31. FINDINGS: Right kidney: Normal echogenicity and pa renchymal thickness. No hydronephrosis. Cysts with the largest one measuring 3.2 cm in size. Right renal artery: Negative for stenosi s; single vessel well seen. Left kidney: Thinned and mildly echogeni c parenchyma. No hydronephrosis. Cysts with the largest one measuring 3.3 cm in size. Left renal artery: Negative for stenosis ; single vessel well seen. Right Renal Measurements: Right renal length: 9.3 cm Right segmental artery - upper pole RI: 0.73 Right segmental artery - lower pole RI: 0.81 Right renal artery origin PSV: 141 cm/s Right renal artery prox PSV: 133 cm/s Right renal artery mid PSV: 100 cm/s Right renal artery distal PSV: 56 cm/s Left Renal Measurements: Left renal length: 9.7 cm Left segmental artery - upper pole RI: 0 .85 Left segmental artery - lower pole RI: 0 .82 Left renal artery origin PSV: 61 cm/s Left renal artery prox PSV: 61 cm/s Left renal artery mid PSV: 71 cm/s Left renal artery distal PSV: 82 cm/s Aorta: Normal caliber. Aorta PSV: 78 cm/s Bladder: Normal. Incidentally noted is diffuse hepatic st eatosis. IMPRESSION: No renal artery stenosis. No hydronephro sis. Leatha Kirk M.D., Ph.D. IMG US PROCEDURES Albumin, Random, Urine (05/11/2021 12:28 PM CDT) P athologist Signature Albumin, 19.9 mg/L 05/11/2021 DTL Random, U 2:30 PM CDT Comment: ----ADDITIONAL INFORMATION---- This test has been modified from the man ufacturer's instructions. Its performance characteri stics were determined by [facility] in a manner co nsistent with CLIA requirements. This test has not bee n cleared or approved by the U.S. Food and Drug Admin istration. Creatinine 96 mg/dL 05/11/2021 1:50 PM CDT DTL Albumin/Creatinine Ratio 21 <25 mg/g 05/11/2021 2:30 PM CDT DTL Specimen Anatomical Collection Method Collection Time Receive d Time (Source) Location / / Volume Laterality Urine (Urine, 05/11/2021 12:28 05/11/2021 1:12 Clean Catch) PM CDT PM CDT Leatha Kirk M.D., Ph.D. LAB URINE ORDERABLES Performing Organization Address City/[facility]/ZIP [facility] Phon e Number [facility] - [address] [place], [place] [address] [place] [id number] [place] [address] Creatinine, Random, Urine (05/11/2021 12:28 PM CDT) athologist Signature Creatinine, 96 16 - 326 05/11/2021 DTL Random, U mg/dL 1:52 PM CDT Specimen Anatomical Collection Method Collection Time Receive d Time (Source) Location / / Volume Laterality Urine (Urine, 05/11/2021 12:28 05/11/2021 Voided) PM CDT 12:28 PM CDT Leatha Kirk M.D., Ph.D. LAB URINE ORDERABLES Performing Organization Address City/[facility]/ZIP [facility] Phon e Number [facility] - [address] [place], [place] [address] [place] [address] Protein/Creatinine Ratio, Random, Urine (05/11/2021 11:33 AM CDT) athologist Signature Protein, Total, 12 mg/dL 05/11/2021 DTL Random, U 1:50 PM CDT Creatinine, 96 16 - 326 05/11/2021 DTL Random, U mg/dL 1:50 PM CDT Protein/Creatin 0.13 <0.18 mg/mg 05/11/2021 DTL ine Ratio 1:50 PM CDT Specimen Anatomical Collection Method Collection Time Receive d Time (Source) Location / / Volume Laterality Urine (Urine, 05/11/2021 11:33 05/11/2021 Midstream) AM CDT 12:28 PM CDT Leatha Kirk M.D., Ph.D. LAB URINE ORDERABLES Performing Organization Address City[facility]/ZIP [facility] Phon e Number [facility] - [address] [place], [place] [address] [place], [place] [id number] [place] [address] (ABNORMAL) Urinalysis with Microscopic: Urine, Midstream (05/11/2021 11:33 AM CDT) [facility] gist Method Time Signature Source Urine, Urine, 05/11/2021 DTL Midstream 12:28 PM CDT Color, U Yellow 05/11/2021 DTL 12:29 PM CDT Clarity, U Cloudy (A) 05/11/2021 DTL 12:29 PM CDT Protein, U 12 <26 mg/dL 05/11/2021 DTL 1:50 PM CDT Protein/Osmol 0.19 <0.42 05/11/2021 DTL ality ratio 1:50 PM CDT Predicted 24 147 mg/24 h 05/11/2021 DTL Hr Protein 1:50 PM CDT Predicted 36-593 mg/24 h 05/11/2021 DTL Range 1:50 PM CDT Specimen Anatomical Collection Method Collection Time Receive d Time (Source) Location / / Volume Laterality Urine (Urine, 05/11/2021 11:33 05/11/2021 Midstream) AM CDT 12:28 PM CDT Leatha Kirk M.D., Ph.D. LAB URINE ORDERABLES Performing Organization Address City/[facility] Phon e Number [facility] [address] (ABNORMAL) Uric Acid (05/11/2021 11:24 AM CDT) [facility] Uric Acid, S 8.9 (H) 2.7 - 6.1 05/11/2021 DTL mg/dL 12:26 PM CDT Specimen Anatomical Collection Method Collection Time Receive d Time (Source) Location / / Volume Laterality Blood (Blood, 05/11/2021 11:24 05/11/2021 Venous) AM CDT 11:48 AM CDT Leatha Kirk M.D., Ph.D. LAB BLOOD ADD-ON Performing Organization Address City/[facility] Phon e Number [facility] [address] (ABNORMAL) Cystatin C with Estimated GFR, S (05/11/2021 11:24 AM CDT) P athologist Signature eGFR by 28 (L) >60 05/11/2021 DTL Cystatin C mL/min/BSA 12:35 PM CDT Comment: Estimated GFR calculated using the [...] lower with the new assay. Cystatin C 1.93 (H) 0.67 - 1.21 mg/L 05/11/2021 12:35 PM CD T DTL Specimen Anatomical Collection Method Collection Time Receive d Time (Source) Location / / Volume Laterality Blood (Blood, 05/11/2021 11:24 05/11/2021 Venous) AM CDT 11:48 AM CDT Leatha Kirk M.D., Ph.D. LAB BLOOD ADD-ON Performing Organization Address City/State/ZIP Code Phon e Number [facility] - [address] [place], [place] [address] [facility] [place] [address] Laboratories-[facility] [address] [facility] (ABNORMAL) Renal Function Panel (05/11/2021 11:24 AM CDT) Analysis Performed At Patho logist Time Signature Potassium, S 5.1 3.6 - 5.2 05/11/2021 DTL mmol/L 12:26 PM CDT Sodium, S 143 135 - 145 05/11/2021 DTL mmol/L 12:26 PM CDT Chloride, S 106 98 - 107 05/11/2021 DTL mmol/L 12:26 PM CDT Bicarbonate, S 28 22 - 29 05/11/2021 DTL mmol/L 12:26 PM CDT Anion Gap 9 7 - 15 05/11/2021 DTL 12:26 PM CDT BUN (Blood Urea 30 (H) 6 - 21 05/11/2021 DTL Nitrogen), S mg/dL 12:26 PM CDT Creatinine 1.37 (H) 0.59 - 05/11/2021 DTL 1.04 mg/dL 12:26 PM CDT eGFR-Non 36 (L) >=60 05/11/2021 DTL Black/ mL/min/BSA 12:26 PM CDT Armenian Comment: ----ADDITIONAL INFORMATION---- Estimated GFR calculated using the 2009 CKD_EPI creatinine equation. eGFR-Black/ 41 (L) >=60 mL/min/BSA 2020 12:26 PM CDT DTL Comment: ----ADDITIONAL INFORMATION---- Estimated GFR calculated using the 2009 CKD_EPI creatinine equation. Calcium, Total, S 9.6 8.8 - 10.2 mg/dL 05/11/2021 12:2 6 PM CDT DTL Glucose, S 90 70 - 140 mg/dL 05/11/2021 12:26 PM CDT DTL Albumin, S 4.4 3.5 - 5.0 g/dL 05/11/2021 12:26 PM CDT DTL Phosphorus (Inorganic), S 3.4 2.5 - 4.5 mg/dL 05/11/20 12:26 PM CDT DTL Specimen Anatomical Collection Method Collection Time Receive d Time (Source) Location / / Volume Laterality Blood (Blood, 05/11/2021 11:24 05/11/2021 Venous) AM CDT 11:48 AM CDT Leatha Kirk M.D., Ph.D. LAB BLOOD ADD-ON Performing Organization Address City/State/ZIP Code Phon e Number [facility] [address] [place] [address] [facility] [place] [address] Laboratories-[facility] [address] documented in this encounter Visit Diagnoses Diagnosis Hypertensive Chronic Kidney Disease (CKD ) Stage 3b Glomerular Filtration Rate (GFR) 30 To 44 (HCC) Hypertensive Chronic Kidney Disease (CKD ) Stage 3b Glomerular Filtration Rate (GFR) 30 To 44 (HCC) documented in this encounter Additional Health Concerns Assessment Noted Time PHQ-9 Depression Total Score: 15 03/22/2021 12:16 PM C DT documented as of this encounter
--- OUTSIDE RECORDS SUMMARY | 2022-10-07 10:43 | XMS_ITS | Encounter Summary ---
:1935 Author Organization [facility] Address [address] [place] [id number] Care Team Providers Name Role Phone Unavailable Primary Care Provider Unavailable Reason for Visit Physical Therapy (Routine) - Canceled Specialty Diagnoses / Procedures Referred By Contact Refer red To Contact Diagnoses Edema Leg Juanito Rodriguez M.D. [facility] Procedures PT Ongoing treatment [address] [place] [phone] Referral ID Status Reason Start Date Expiration Date Visits V isits Requested Authorized [id number] Canceled 03/27/2021 03/27/2022 10 10 Encounter Details Date Type Department Care Team Description 05/11/2021 Clinical Support Department of Physical Juanito Rodriguez M.D. [address] [place] [phone] Edema Leg Medicine and Mirian Plaza P.T., D.P.T., ABPTS-ONC [address] [place] [phone] Rehabilitation in [place], [place] [address] [place] [phone] Social History Tobacco Use Types Packs/Day [...] or relatives? How often do you attend jew or 1 to 4 times per year 03/2022 taoism services? Do you belong to any clubs or No 02/19/2022 organizations such as jew groups, unions, [employer] or athletic groups, or school groups? How [...] as of this encounter Progress Notes Mirian Plaza, P.T., D.P.T. - 05/11/2021 10:30 AM CDT Physical Therapy Lymphedema Outpatient Progress Note Patient's Name: Vielka Igorkyle Marely Referring Provider: Juanito Rodriguez M.D. Rehab Diagnosis: 1. Edema Leg Reason for Referral: Physical therapy evaluation and [...] SUBJECTIVE Patient/Caregiver Goals: Decreased lower extremity edema Patient Comments: Tolerated bandaging well. Now states her cannot help her with bandaging maya was barely able to assist with doffing the bandages this am. Patient states that she is discontinuing medication to hopefully help with swelling, states she was told she has kidney disease stage 4. Interval History: completed the home exercise program 2 times (though only 5 repetitions each time) yesterday. Congratulated her on completing the home exercise program. Total Visit Count: 6 OBJECTIVE Right Lower Extremity 05/11/2021 10 cm 24.5 20 cm 28.3 30 cm 41 40 cm 43.6 50 cm 42.9 60 cm 70 cm 80 cm 90 cm Lymph Volume (L) 4434.5 ml Change in Volume (ml) 370.8 ml Change from initial Edema % 9.12 % Left Lower Extremity 05/11/2021 10 cm 23.5 20 cm 28.1 30 cm 36.3 40 cm 40.4 50 cm 41.8 60 cm 70 cm 80 cm 90 cm Lymph Volume (L) 3876.4 ml Change in Volume (ml) 364.65 ml Change from initial Edema % 10.38 % Appreciate reduction bilaterally following 23 hours of compression bandaging. Emphasized importance of compression to patient. ?? Edema: ??Significant pitting on the dorsum of bilateral feet into the distal lower leg, bilateral thighs are spared. ??Skin is dry and flaky, though taut and but less shiny. Slight erythema distally bilateral, though no concern for infection. TREATMENT Therapeutic activity: not present for session as patient states he gets too overwhelmed and will not be able to bandage. 10cm measurements reassessed, appreciate reduction. Emphasized importance of compression during the day and night time. Patient now verbalizing and requesting to obtain velcro devices via the [employer] due to convenience vs ordering these online independently. Requested prescription from referring provider. Spoke with [employer], patient will be able to obtain a large regular this date. Patient relieved by this news. Calf size 32-33cm ankle 28cm length 35cm. Motivational interviewing, identifying barriers to activity and exercise. Recommend patient completeher home exercise program 3 times a day, suggest following meals (breakfast, lunch, supper). She wasreceptive to this suggestion. Re bandage bilateral lower extremities using the following technique: Skin protectant, Tubigrip Artiflex with increased attention to the ankle/heel 8 cm short stretch bandage base of toe just superior to the malleoli, figure-eight 10 cm short stretch bandage just superior to the malleoli to knee, spiral Instructed patient to doff these should she experience pain or increased shortness of breath. She verbalizes understanding and states that her would be able to assist in doffing.?? Patient to continue with some sort of compression 23 hours a day: discussed donning compression garments during the daytime (though she could don the velcro devices as well) and velcro devices at nighttime. Instructed patient that she will need some sort of compression on the foot with the velcros, a well fitting tennis shoe typically works the best though if she is only donning these at night, she will don a sock that has some compression in the foot (typically comes with the velcro device). She was inquiring about a velcro foot piece, though I advised against this especially during the daytime given her instability and fall history. Home Exercise Program/Education: as above Contact monitoring: PPE used during therapy: Therapist was wearing the following PPE throughout entire session: surgicalmask Patient was wearing a mask during therapy session: yes Assessment Bilateral lower extremity edema,??predominantly distal to??knee and into dorsum of the foot. Appreciate slight reduction in 10cm measurements following 23 hours of compression bandaging. Will continue with compression garments during the day and velcro devices at night. Prescription requested for velcro devices. Functional Goals and Timeframes: Lymphedema OT/PT Goals [...] Therapeutic functional activity, Neuromuscular re-education, Gait training Daytime Compression Program: Custom garment (comment) Daytime Compression Program Additional Details: Bilateral knee-high 20-30 mmHg. Optional Velcro device. Nighttime Compression Program: Compression devices (comment) Nighttime Compression Program Additional Details: Velcro wraps bilateral knee high PT: Time Spent with Patient Mirian Plaza P.T., D.P.T. documented in this encounter Plan of Treatment Not on filedocumented as of this encounter Visit Diagnoses Diagnosis Edema Leg documented in this encounter Additional Health Concerns Assessment Noted Time PHQ-9 Depression Total Score: 15 03/22/2021 12:16 PM C DT documented as of this encounter
--- OUTSIDE RECORDS SUMMARY | 2022-10-07 10:43 | XMS_ITS | Encounter Summary ---
:1935 Author Organization [facility] Address [address] [place] [address] Care Team Providers Name Role Phone Unavailable Primary Care Provider Unavailable Reason for Referral Outpatient (Routine) - Closed Specialty Diagnoses / Procedures Referred By Contact Refer red To Contact Diagnoses Hypertensive Chronic Kidney Disease (CKD) Stage 3b Glomerular Filtration Rate (GFR) 30 To 44 (HCC) [facility] Kidneys with Renal Artery Doppler Evette, Ph.D. [address] [place] [phone] Referral ID Status Reason Start Date Expiration Date Visits Requ ested Visits Authorized [id number] Closed 05/11/2021 05/11/2022 1 1 Reason for Visit Outpatient (Routine) - Closed Specialty Diagnoses / Procedures Referred By Contact Refer red To Contact Diagnoses Hypertensive Chronic Kidney Disease (CKD) Stage 3b Glomerular Filtration Rate (GFR) 30 To 44 (HCC) [facility] US Kidneys with Renal Artery Doppler Evette, Ph.D. [address] [place] [address] Referral ID Status Reason Start Date Expiration Date Visits Requ ested Visits Authorized [id number] Closed 05/11/2021 05/11/2022 1 1 Encounter Details Date Type Department Care Team Description 05/15/2021 Hospital Encounter Department of Jerome Duong rtensive Chronic Radiology, Amy Zhang M.D., Kidney Dise ase (CKD) Building, in Ph.D. Stage 3b Glomerular [place], [facility] Filtration Rate [place], [place] (GFR) 30 To 44 (HCC) [address] [facility] [address] [place], [place] [phone] (Work) [phone] Social History Tobacco Use Types Packs/Day Years [...] (collagen, hydr, bovine,, bulk,) 100 % powder docosahexaenoic Take 2 capsules by 0 acid-epa 120-180 mg mouth daily. [place] 3 capsule (strength unknown) esomeprazole (NexIUM) Take [...] vitamin C/biotin Take 1 capsule by 0 (NLPY-EXOA-DHXVN, VIT mouth daily. C-BIOTIN, ORAL) VITAMIN K2 [...] D3) 50 mcg daily. (2,000 Unit) tablet psyllium husk Take 1 scoopful by 0 [...] 09/17/2021 daily documented as of this encounter Plan of Treatment Not on filedocumented as of this encounter Procedures Procedure Name Priority Date/Time Associated Comments Diagnosis US KIDNEYS WITH RAD - Routine 05/15/2021 3:35 Hypertensive Results for this RENAL ARTERY (most inpatients PM CDT Chronic Kidney procedure are in DOPPLER and all Disease (CKD) Stage the resu lts outpatients) 3b Glomerular section. Filtration Rate (GFR) 30 To 44 (HCC) documented in this encounter Results US Kidneys with Renal Artery Doppler (05/15/2021 [...] Leatha Kirk M.D., Ph.D. IMG US PROCEDURES documented in this encounter Visit Diagnoses Diagnosis Hypertensive Chronic Kidney Disease (CKD ) Stage 3b Glomerular Filtration Rate (GFR) 30 To 44 (HCC) documented in this encounter Additional Health Concerns Assessment Noted Time PHQ-9 Depression Total Score: 15 03/22/2021 12:16 PM C DT documented as of this encounter
--- OUTSIDE RECORDS SUMMARY | 2022-10-07 10:43 | XMS_ITS | Encounter Summary ---
:1935 Author Organization [facility] Address [address] [place] [address] Care Team Providers Name Role Phone Unavailable Primary Care Provider Unavailable Reason for Visit Reason Comments Results Encounter Details Date Type Department Care Team Description 05/15/2021 Clinical Communication Division of Diane Leal Results Nephrology and R.N. Hypertension in [address] [place], [place] [address] [place] [phone] [place], [place] [phone] (Work) [phone] Social History Tobacco Use Types Packs/Day Years [...] or relatives? How often do you attend jehovah's witness or 1 to 4 times per year 03/2022 restorationism services? Do you belong to any clubs or No 02/19/2022 organizations such as jehovah's witness groups, unions, fraternal or athletic groups, or [...] this encounter Miscellaneous Notes Telephone Encounter - Diane Leal R.N. - 05/15/2021 11:08 AM CDT SUBJECTIVE CHIEF COMPLAINT / REASON FOR CALL Results Test Result Information: Resulted Orders Renal Function Panel Result Value Ref Range Potassium, S 5.1 3.6 - 5.2 mmol/L Sodium, S 143 135 - 145 mmol/L Chloride, S 106 98 - 107 mmol/L Bicarbonate, S 28 22 - 29 mmol/L Anion Gap 9 7 - 15 BUN (Blood Urea Nitrogen), S 30 (H) 6 - 21 mg/dL Creatinine, S 1.37 (H) 0.59 - 1.04 mg/dL eGFR-Non Black/ 36 (L) >=60 mL/min/BSA eGFR-Black/ 41 (L) >=60 mL/min/BSA Calcium, Total, S 9.6 8.8 - 10.2 mg/dL Glucose, S 90 70 - 140 mg/dL Albumin, S 4.4 3.5 - 5.0 g/dL Phosphorus (Inorganic), S 3.4 2.5 - 4.5 mg/dL Cystatin C with Estimated GFR, S Result Value Ref Range eGFR by Cystatin C 28 (L) >60 mL/min/BSA Cystatin C, S 1.93 (H) 0.67 - 1.21 mg/L Uric Acid Result Value Ref Range Uric Acid, S 8.9 (H) 2.7 - 6.1 mg/dL Per Dr. Thomas's recommendation patient was called to inform her that her kidney function is slightly better than prior, and her urine is cloudy. Patient reports that she is having urgency andincreased frequency of urination, but this began after physical therapy has recommended to start using a support hose that Mrs. Yap started using 05/11/21. This has helped reduce leg swelling and eliminate extra fluid. Patient denies pain or burning with urination, denies a foul odor to her urine.Since she is not having symptoms of a urinary tract infection, she does not require treatment. Disposition/Recommendation: notified provider and awaiting recommendations Information/Education: patient/caller able to teach back Caller agreeable to plan of care: yes Telephone Encounter - Diane Leal R.N. - 05/15/2021 11:08 AM CDT ----- Message from Leatha Kirk M.D., Ph.D. sent at 05/11/2021 12:39 PM CDT ----- Regarding: Lab results Hi, Could you please call patient? Please let her know her kidney function is slightly better than prior, and her urine is cloudy. Since she is not having symptoms at this moment, she does not require treatment for UTI. Thank you! ----- Message ----- From: Kilo Shane In Or_Oru Even Mrn From Lab [id number] Sent: 05/11/2021 12:26 PM CDT To: Leatha Kirk M.D., Ph.D. documented in this encounter Plan of Treatment Not on filedocumented as of this encounter Visit Diagnoses Not on filedocumented in this encounter Additional Health Concerns Assessment Noted Time PHQ-9 Depression Total Score: 15 03/22/2021 12:16 PM C DT documented as of this encounter
--- OUTSIDE RECORDS SUMMARY | 2022-10-07 10:43 | XMS_ITS | Encounter Summary ---
:1935 Author Organization [facility] Address [address] [place] [address] Care Team Providers Name Role Phone Unavailable Primary Care Provider Unavailable Encounter Details Date Type Department Care Team Description 05/15/2021 Admin Visit [facility] [address] [place] [phone] Social History Tobacco Use Types Packs/Day [...] or relatives? How often do you attend mormonism or 1 to 4 times per year 03/2022 religion services? Do you belong to any clubs or No 02/19/2022 organizations such as mormonism groups, unions, fraternal or athletic groups, or [...]
--- OUTSIDE RECORDS SUMMARY | 2022-10-07 10:43 | XMS_ITS | Encounter Summary ---
:1935 Author Organization [facility] Address [address] [place] [address] Care Team Providers Name Role Phone Unavailable Primary Care Provider Unavailable Encounter Details Date Type Department Care Team Description 05/15/2021 Clinical Communication Department of Physical Aniket Abel montero Medicine and [address] [place] [address] Rehabilitation in [place], [place] [address] [place] [address] [place] [phone] (Work) [phone] Social History Tobacco Use Types Packs/Day Years [...] Notes Telephone Encounter - Abel Suero - 05/15/2021 10:55 AM CDT Mirian-please call this patient MAKAYLA she is on her way to [place] [employer] and would like to talk to you about the possitity of getting a smaller size for her Velcro Wraps they are doing a great job reducing swelling and she feels she might need a new script for a smaller size. Could you call her before 1 pm today to discuss this. documented in this encounter Plan of Treatment Not on filedocumented as of this encounter Visit Diagnoses Not on filedocumented in this encounter Additional Health Concerns Assessment Noted Time PHQ-9 Depression Total Score: 15 03/22/2021 12:16 PM C DT documented as of this encounter
--- OUTSIDE RECORDS SUMMARY | 2022-10-07 10:43 | XMS_ITS | Encounter Summary ---
:1935 Author Organization [facility] Address [address] [place] [address] Care Team Providers Name Role Phone Unavailable Primary Care Provider Unavailable Reason for Visit Reason Comments Communication Encounter Details Date Type Department Care Team Description 05/25/2021 Clinical Communication Department of Spine in [facility], Tobi Schwartz Communication [place], [place] [employer], C.N.P. [address] [facility] [address] [place] [phone] [phone] Social History Tobacco Use Types Packs/Day Years [...] this encounter Miscellaneous Notes Telephone Encounter - Rohini Maza R.N. - 05/30/2021 10:42 AM CDT Information Discussed The patient was called back. She is having second thoughts about starting on Tramadol because of something she read about addiction risk. She will see if she needs it after the procedure. It has been helpful in the past. She has a local PCP that she could see to discuss this, though she appreciates the care at [facility] for specialty care such as the Lymphedema clinic. PLAN Disposition/Recommendation: notified provider and awaiting recommendations Information/Education: patient/caller able to teach back Caller agreeable to plan of care: yes The following references were used: nursing clinical judgement Telephone Encounter - Tobi Joe APRN, C.N.P. - 05/28/2021 5:35 PM CDT She would have to request it from her PCP. Tobi Womack Telephone Encounter - Sonali Preston - 05/25/2021 1:30 PM CDT PROVIDER'S NAME: Tobi Joe CALLER IS: Self Authorization on File: N/A WHAT IS THE CALL REGARDING? Patient is wondering if it would be possible to get a 30 day supply of tramadol to take when her pain gets severe. It is currently making it difficult for her to do everydayactivities or sleep well at times Reason for the Call: General Question(s) Next Follow Up: No Response preference: Phone call Additional Comments: PATIENT OR CALLER'S PHONE NUMBER: [phone] documented in this encounter Plan of Treatment Not on filedocumented as of this encounter Visit Diagnoses Not on filedocumented in this encounter Additional Health Concerns Assessment Noted Time PHQ-9 Depression Total Score: 15 03/22/2021 12:16 PM C DT documented as of this encounter
--- OUTSIDE RECORDS SUMMARY | 2022-10-07 10:43 | XMS_ITS | Encounter Summary ---
:1935 Author Organization [facility] Address [address] [place] [address] Care Team Providers Name Role Phone Unavailable Primary Care Provider Unavailable Reason for Referral Outpatient (Routine) - Closed Specialty Diagnoses / Procedures Referred By Contact Refer red To Contact Diagnoses Spinal Stenosis Lumbar Region Without Neurogenic Claudication Chao East M.D. [facility] Procedures FL Lumbar Spine Interlaminar Epidural Injection [address] [place], [place] [address] Referral ID Status Reason Start Date Expiration Date Visits Requ ested Visits Authorized [id number] Closed 05/22/2021 05/22/2022 1 1 MRI/CAT/PET Scan (Routine) - Closed Specialty Diagnoses / Procedures Referred By Contact Refer red To Contact Radiology Diagnoses Pain Low Back Unspecified Chao East M.D. [facility] Procedures MR Lumbar Spine without IV Contrast [address] [place], [place] [address] Referral ID Status Reason Start Date Expiration Date Visits Requ ested Visits Authorized [id number] Closed 05/22/2021 05/22/2022 1 1 Reason for Visit Reason Comments Communication Encounter Details Date Type Department Care Team Description 05/22/2021 Clinical Communication Department of Spine in [facility] Tobi Schwartz, Communication [place], [place] Fred GARZONNSharonP. [address] [facility] [address] [place] [phone] Social History Tobacco Use Types Packs/Day Years [...] or relatives? How often do you attend evangelical or 1 to 4 times per year 03/2022 jehovah's witness services? Do you belong to any clubs or No 02/19/2022 organizations such as evangelical groups, unions, fraternal or athletic groups, or [...] this encounter Miscellaneous Notes Telephone Encounter - Joel Cline - 05/22/2021 2:21 PM CDT Patient of Mr. Joe last seen via phone on 04/18/21 Mrs. Yap called stating she was waiting to hear back from the nurses or us in regards to getting an epidural and an MRI done. She can be reached at [phone]. Please reply to RST SPN SCHEDULING. Thank you. documented in this encounter Plan of Treatment Not on filedocumented as of this encounter Results FL LUMBAR SPINE INTERLAMINAR EPIDURAL INJECTION (08/15/2021 11:39 AM CDT) Specimen (Source) Anatomical Location Collection Method / Collectio n Time Received Time / Laterality Volume Narrative Jose Ramon Sharma D.O., M.P.H. - 07/19 11:10 AM CDT Jose Ramon Sharma D.O., M.P.H. ? 08/15/2021 ??2:17 PM FL Lumbar Spine Interlaminar Epidural In jection Date/Time: 08/15/2021 11:10 AM Performed by: Payal Patrick L.PSharonN. Authorized by: Chao East M.D. Care team members present 1. Salty Godinez D.O. 2. Pasquale Rao M.D. 3. Payal Patrick L.PCheikh 4. Bernarda Escoto L.P.N. PROCEDURE SUMMARY Indications: Radiculitis Pre-procedural pain: 2/10 [...] fellow participated in the procedure, and the community resource consultant was present for the entire procedure. OPERATIVE NOTE INFORMATION Specimens: 0 Drains: 0 Estimated blood loss: 0 Implants: 0 Chao BACH FLUOROSCOPY PROCEDURES MR Lumbar Spine without IV Contrast (06/15/2021 11:47 AM CDT) Anatomical Region Laterality Modality Lumbar Spine, Neuroradiology RST LOS, Neuroradiology N/A Magnetic Resonance ARZ LOS, Neuroradiology FLA LOS Specimen (Source) Anatomical Collection Method Collection Time Re ceived Time Location / / Volume Laterality 06/15/2021 2:10 PM CDT Impressions 06/15/2021 3:56 PM CDT 1. Lumbar spondylosis, as described, with mild scattered lateral recess narrowing (worst at L3-4), but no signif icant spinal canal stenosis. 2. Foraminal stenoses are moderate on th e left at L2 and L4, and mild elsewhere. 2. 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 Narrative 06/15/2021 3:56 PM CDT EXAM: MR LUMBAR SPINE WITHOUT IV CONTRAST COMPARISON: Outside MRI lumbar spine 01/2019. Lumbar spine radiograph 03/07/2020 FINDINGS: 5 lumbar-type vertebral bodies. Normal v ertebral body height and bone marrow signal. The conus terminates normally at the L1-2 interspace. Diffuse mild fatty atrophy of the paraspinal and iliopsoas muscles. Multilevel lumbar spondylosis, as follow s: L1-2: Disc bulge causes mild ventral lum bar canal effacement. No significant neural foraminal stenosis. L2-3: Disc bulge causes mild ventral lum bar canal effacement. Facet arthropathy causes moderate left and mild right neur al foraminal stenosis. Mild right lateral recess narrowing. L3-4: Disc bulge causes mild ventral lum bar canal effacement. Facet arthropathy and ligamentous thickening contribute to partial effacement of the lateral recesses, left greater than right. Mild bilateral foraminal stenosis. L4-5: Trace anterolisthesis L4-5. Uncove ring of the disc with superimposed left eccentric disc bulge causes mild effacem ent of the ventral lumbar canal. Hypertrophic facet arthropathy is advanc ed on the left and moderate on the right, with a small synovial cysts in th e posterior paraspinal soft tissue behind the left L4 lamina. Mild lateral recess narrowing, left greater than right. Moderate left and mild right fora nia narrowing. L5-S1: Moderate bilateral facet hypertro phy. No significant lumbar canal or neural foraminal stenosis. Small far lat eral disc osteophyte contacts the traversing left L5 nerve root. Bilateral hip arthroplasties. Renal cyst s. Procedure Note Kelsey Chavez M.D. - 06/15/2021Formatt ing of this note might be different from the original. EXAM: MR LUMBAR SPINE WITHOUT IV CONTRAS T COMPARISON: Outside MRI lumbar spine 01/2019. Lumbar spine radiograph 03/07/2020 FINDINGS: 5 lumbar-type vertebral bodies. Normal v ertebral body height and bone marrow signal. The conus terminates normally at the L1-2 interspace. Diffuse mild fatty atrophy of the paraspinal and iliopsoas muscles. Multilevel lumbar spondylosis, as follow s: L1-2: Disc bulge causes mild ventral lum bar canal effacement. No significant neural foraminal stenosis. L2-3: Disc bulge causes mild ventral lum bar canal effacement. Facet arthropathy causes moderate left and mild right neur al foraminal stenosis. Mild right lateral recess narrowing. L3-4: Disc bulge causes mild ventral lum bar canal effacement. Facet arthropathy and ligamentous thickening contribute to partial effacement of the lateral recesses, left greater than right. Mild bilateral foraminal stenosis. L4-5: Trace anterolisthesis L4-5. Uncove ring of the disc with superimposed left eccentric disc bulge causes mild effacem ent of the ventral lumbar canal. Hypertrophic facet arthropathy is advanc ed on the left and moderate on the right, with a small synovial cysts in th e posterior paraspinal soft tissue behind the left L4 lamina. Mild lateral recess narrowing, left greater than right. Moderate left and mild right fora nia narrowing. L5-S1: Moderate bilateral facet hypertro phy. No significant lumbar canal or neural foraminal stenosis. Small far lat eral disc osteophyte contacts the traversing left L5 nerve root. Bilateral hip arthroplasties. Renal cyst s. IMPRESSION: 1. Lumbar spondylosis, as described, wit h mild scattered lateral recess narrowing (worst at L3-4), but no signif icant spinal canal stenosis. 2. Foraminal stenoses are moderate on th e left at L2 and L4, and mild elsewhere. 2. 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 Chao BACH MRI PROCEDURES documented in this encounter Visit Diagnoses Diagnosis Spinal Stenosis Lumbar Region Without Ne urogenic Claudication - Primary Pain Low Back Unspecified Pain Low Back Unspecified Spinal Stenosis Lumbar Region Without Ne urogenic Claudication documented in this encounter Additional Health Concerns Assessment Noted Time PHQ-9 Depression Total Score: 15 03/22/2021 12:16 PM C DT documented as of this encounter
--- OUTSIDE RECORDS SUMMARY | 2022-10-07 10:43 | XMS_ITS | Encounter Summary ---
:1935 Author Organization [facility] Address [address] [place] [address] Care Team Providers Name Role Phone Unavailable Primary Care Provider Unavailable Reason for Referral Outpatient (Routine) - Closed Specialty Diagnoses / Procedures Referred By Contact Refer red To Contact Sleep [place] M.D. [facility] [address] [place] [address] Referral ID Status Reason Start Date Expiration Date Visits Requ ested Visits Authorized [id number] Closed 06/14/2021 06/14/2022 1 1 Reason for Visit Outpatient (Routine) - Closed Specialty Diagnoses / Procedures Referred By Contact Refer red To Contact Sleep Medicine Diagnoses Obstructive Sleep [facility] [address] [place] [address] Referral ID Status Reason Start Date Expiration Date Visits V isits Requested Authorized [id number] Closed Specialty 03/22/2021 03/22/2022 1 1 Services Required Encounter Details Date Type Department Care Team Description 06/14/2021 Comprehensive Visit [facility] for [facility] Mark Pavon Obs tructive Sleep Medicine in [place]oreen Apnea Adult [place], [place] [address] [facility] [address] [place] [phone] Social History Tobacco Use Types Packs/Day Years [...] 1 to 4 times per year 03/2022 latter-day services? Do you belong to any clubs [...] Sign Reading Time Taken Comments Blood Pressure 146/57 06/14/2021 1:45 PM CDT Pulse 65 06/14/2021 1:45 PM CDT Temperature - - Respiratory Rate - - Oxygen Saturation - - Inhaled Oxygen Concentration - - Weight 118 kg (259 lb 13 oz) 06/14/2021 1:45 PM CDT ephraim es on Height 166.9 cm (5' 5.71) 06/14/2021 1:45 PM CDT shoes on Body Mass Index 42.31 06/14/2021 1:45 PM CDT documented in this encounter Consult Notes Mark Pavon M.D. - 06/14/2021 2:00 PM CDT CHIEFCOMPLAINT/REASON FOR CONSULT Ms. Yap is a 85 y.o. female who is seen by request of Mary Andujar* for help with management of her VIRGINIA diagnosed elsewhere. HISTORY OF PRESENT ILLNESS Briefly, Ms. Yap is a 85 y.o. female with a history of chronic LE edema, CKD stage 4, hypertension, and class 3 obesity who presents to us for assistance in managing her V[place]IA. She apparently was diagnosed with V[place]IA at an outside institution apparently in 1969. She then apparently underwent repeat study in 1989, 2006, and 2014. Unfortunately, the only study I could find withinCareEverywhere and scanned document was a CPAP titration study from [facility] on 09/22/2015. She suggests that the study was very challenging due to issues at the sleep center and wonders aboutthe validity of results. Regardless, she has had significant difficulty with adherence. This is complicated by recent purchase of an adjustable bed. This poses a significant challenge for her to reach her CPAP when she gets up during the night to use the bathroom. Additionally, she has had significantchallenges with xerostomia. She also reports that the bed height is such that she needs be use extracaution when getting out of bed. She also reports that she often finds snacking in the middle of the night will help her get back to sleep. She also wondered about Inspire therapy. The following portion of the patient's history were reviewed and updated as appropriate: allergies, current medications, family history, medical history, social history, surgical history, and problem list. REVIEW OF SYSTEMS Reviewed encounter review of systems and pertinent responses are noted in the history. OBJECTIVE 10/13/2019 - 11/30/2019 Device: AirSense 10 AutoSet (S/N: [id number]) Device Settings Therapy Mode: AutoSet EPR: FULL_TIME EPR Level: 1.0 cmH2O EPR Enable: OFF EPR Patient Enable: OFF Ramp Enable: AUTO Ramp Time: 45.0 Minutes Essentials: PLUS Minimum Pressure: 10.0 cmH2O Maximum Pressure: 16.0 cmH2O Pressure - cmH2O Median: 13.6 95th Percentile: 15.1 Maximum: 15.8 Leak - L/min Median: 7.2 95th Percentile: 34.8 Maximum: 66.0 Respiratory Indices - events/hr Apnea Index: 2.3 Hypopnea Index: 2.1 AHI: 4.4 Obstructive: 1.4 Central: 0.5 Unknown: 0.0 RERA Index: 1.6 % Time in INSURANCE OFFICE SUPERVISOR: 0.0 Total Usage Used Days >= 4 hrs : 5 Used Days < 4 hrs : 24 % Used Days >= 4 hrs : 10 Days not used: 20 Total days: 49 Total hours used: 82:49 Median daily usage: 2:56 Average daily usage: 1:41 VITAL SIGNS Blood Pressure: 146/57 (06/14/2021 1:45 PM) Pulse Rate: 65 (06/14/2021 1:45 PM) BMI (Calculated): 42.3 kg/m?? (06/14/2021 1:45 PM) Height: 166.9 cm (shoes on) (06/14/2021 1:45 PM) Weight: 118 kg (shoes on) (06/14/2021 1:45 PM) ASSESSMENT / PLAN #1 Obstructive sleep apnea We discussed that she should not need to reach for her device during the night when she gets out of bed as her device has auto on/off. I confirmed that this feature was activated on her device. This means, she could simply take the mask off when she goes to the bathroom, then when she inhales after putting the mask on, the device will automatically turn on. Additionally, I noticed the humidity setting was on 4. So, I increased the humidity setting. Lastly, I noticed her tubing was not a heated tubing. Therefore, I provided her with a prescription (without the CMS justification since I don't have her diagnostic sleep study results) to help her secure a heated tubing. I am hopeful that she will be able to resume her CPAP use. In regards to Inspire therapy, I explained that her BMI would disqualify her for this therapy at this time. #2 Inadequate sleep hygiene We discussed the negative impacts of snacking in the middle of the night. She will work to stop thatand consider drinking herbal tea instead. #3 Peripheral neuropathy She describes a burning sensation in her thighs only at night with some improvement with movement. It is unclear if she feels the urge to move the legs. I suggested that if an evaluation for neuropathyis negative, we may want to consider a possibility of atypical RLS. She is anticipating returning to [place] in about 3 months. I suggested that we plan on a follow up at that time. I also encouraged her to see if she can secure a copy of her diagnostic sleep study and have it sent to us. I encouraged her to call us with any questions or concerns. Multiple questionswere answered. PATIENT EDUCATION Ready to learn; no apparent barriers were identified; learning preferences include listening. Explained diagnosis and treatment plan; patient/guardian of patient expressed understanding of the content. I personally spent 45 minutes in care of the patient today. Time includes both non face to face and face to face patient care. documented in this encounter Plan of Treatment Scheduled Referrals Name Type Priority Associated Diagnoses Order [facility] Sleep Medicine Outpatient Referral Routine Expect ed: office visit 09/14/2021 (clinic) (Approximate), Expires: 06/14/2024 documented as of this encounter Visit Diagnoses Diagnosis Obstructive Sleep Apnea Adult documented in this encounter Additional Health Concerns Assessment Noted Time PHQ-9 Depression Total Score: 15 03/22/2021 12:16 PM C DT documented as of this encounter
--- OUTSIDE RECORDS SUMMARY | 2022-10-07 10:43 | XMS_ITS | Encounter Summary ---
:1935 Author Organization [facility] Address [address] [place] [address] Care Team Providers Name Role Phone Unavailable Primary Care Provider Unavailable Encounter Details Date Type Department Care Team Description 05/11/2021 Clinical Communication Division of General [place], Internal Medicine in [place] Estrada [place], [place] [address] [facility] [address] [place] [phone] Social History Tobacco Use Types Packs/Day Years [...] this encounter Miscellaneous Notes Telephone Encounter - Erika Davenport - 05/11/2021 2:17 PM CDT 05-11-2021 Derm req is being triaged documented in this encounter Plan of Treatment Not on filedocumented as of this encounter Visit Diagnoses Not on filedocumented in this encounter Additional Health Concerns Assessment Noted Time PHQ-9 Depression Total Score: 15 03/22/2021 12:16 PM C DT documented as of this encounter
--- OUTSIDE RECORDS SUMMARY | 2022-10-07 10:43 | XMS_ITS | Encounter Summary ---
:1935 Author Organization [facility] Address [address] [place] [address] Care Team Providers Name Role Phone Unavailable Primary Care Provider Unavailable Reason for Referral Outpatient (Routine) - Closed Specialty Diagnoses / Procedures Referred By Contact Refer red To Contact Dermatology Diagnoses Lesion Skin Phuong Portillo M.D. [facility] [address] [place] [address] Referral ID Status Reason Start Date Expiration Date Visits Requ ested Visits Authorized [id number] Closed 05/11/2021 05/11/2022 1 1 Reason for Visit Appointment Request (Routine) - Closed Specialty Diagnoses / Procedures Referred By Contact Refer red To Contact General Internal Medicine Referral ID Status Reason Start Date Expiration Date Visits Requ ested Visits Authorized [id number] Closed 03/30/2021 03/30/2022 1 1 Encounter Details Date Type Department Care Team Description 05/11/2021 Office Visit Division of Holger Lui (Primary Dx); Internal Medicine in [facility] Chronic Kidney Disease Stage 4 Glomerula r Filtration Rate 15-29 ([facility]); [place], [place] [address] [facility] Dyspnea On Exertion; [address] [place], [place] Obstructive Sleep Apnea Adul t; [place] [address] Morbid Obesity Body Mass Index 40.0-44.9 Adult ([facility]); [id number] Incontinence Urinary; Edema Leg Social History Tobacco Use Types Packs/Day Years [...] place to sleep or slept in a care home (including now)? Education Answer Date Recorded What is the highest level of school you have completed or 12 th grade 03/22/2021 the highest degree you have received? Sex Assigned at Date Recorded Female 02/19/2022 7:48 AM CDT documented as of this encounter Progress Phuong Hollis M.D. - 05/11/2021 2:00 PM CDT CHIEF COMPLAINT / REASON FOR VISIT Vielka Yap is a 85 y.o. woman who presents to discuss tests and consultations. Updated history: Patient accompanied by her today. Patient notes change/increase size of some of her moles. She would like to return to dermatology forfull skin examination. Patient plans to start a 1200 calorie per day diet. She also plans to start exercising for short periods of time 2-3 times per day. She notes she is not eating much. Patient has ordered Velcro compression garments for her legs. She notes her body became more painful with exercise previously. She notes she has gained 20 lbs since furosemide was stopped, she attributes to water weight. She notes she is moving around a little bit more and she feels she is more active. She can now ascend a fewstairs. She is now able to walk more with her walker. She plans to stop taking Celebrex and oxybutynin. She will take acetaminophen as needed for pain. She tries to rest and not be active to prevent her pain. She occasionally lays down to help her back pain. She plans to try to use her CPAP. Her will help her to find a way for her CPAP to be within reach. She wakes up overnight frequently due to nocturia 4-5 times overnight. She has had one visit with a physical therapist locally. She wants to slowly increase her activity without overdoing it. She would like to manage her pain with little to no pain medication due to her concern of medication side effects. She admits the pandemic was bad for her and she has been more isolated. She is no longer able to drive since her hip replacement, and her needs to drive her everywhere. She wants to improve so she can be more independent. She denies dysuria. She has not been checking her blood pressure at home. She notes her BP has been 140/70's. She drinks up to a liter of water per day. She drinks 2 cups of coffee, but she was told to stop as it may be a bladder irritant. IMPRESSION/REPORT/PLAN Laboratory results: 03/27/21 normal urine osmolality, normal urine pH, normal urinalysis and microscopy (microscopy the week prior had shown 31-40 wbc's), urine dipstick with small leukocyte esterace, otherwise negative (urine dipstick the week prior showed moderate leukocyte esterase). Urine culture grew Proteus mirabilis that is resistant to nitrofurantoin and cefazolin. SARS-CoV-2 undetected by PCR. 03/22/21 normal random urine albumin, normal random protein/creatinine ratio. Magnesium 2.4, PTH 75, estimated GFR by Cystatin C 26, 25 hydroxy vitamin-D 50, BUN 40, creatinine 1.43, estimated GFR 34, total protein 6.2, otherwise normal CMP/renal function panel. Uric acid 10.9, NT proBNP 250. 03/07/21 TSH 5.0, negative thyroid peroxidase antibody, and normal free T4. ??BUN 38, creatinine 1.78, estimated GFR 26. ??Hemoglobin A1c 5.6 ?? #??Leg??Edema?? # History of right lower leg/foot DVT # Hypertension # Chronic kidney disease stage 4 # Mildly atrophic left kidney # Class 3 Obesity # Elevated TSH (normal for age) # Obstructive Sleep Apnea not using CPAP # Dyspnea on exertion # Chronotropic Incompetence # Elevated BUN/Creatinine ratio # Elevated PTH # Elevated uric acid # Mildly decreased serum protein # Dry mouth ?? Encouraged her to check her home blood pressure twice weekly, if her blood pressure remains above 130/80, would recommend intensification of her blood pressure medication regimen. ?? Recent lab results concerning for dehydration. Encouraged continued adequate hydration and to continue to hold furosemide for now. ??She is taking lisinopril-hydrochlorothiazide 20-12.5 mg daily. Will defer to Nephrology and local primary provider whether hydrochlorothiazide should be stopped. ?? 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 No hydronephrosis. ?? Continue to completely avoid NSAID's. ?She plans to avoid??celecoxib. ? Patient saw Dr. Brennan Kirk in Nephrology on 05/11/21. Patient has chronic kidney disease stage 4, likely related to her chronic use of NSAIDs. She was advised to avoid NSAIDs and to use acetaminophen instead. Blood pressure control, low-salt diet, regular exercise, and weight loss recommended. Patient was recommended to check her blood pressure regularly at home and keep a record of her blood pressure readings. Medications will be adjusted if her blood pressure is still not at goal. Allopurinol 50 mg 3 times per week was prescribed for her elevated uric acid. Kidney ultrasound with Doppler ordered. Patient will return to the chronic kidney disease clinic in 3 months. Venous Lower Extremity 03/23/21: 1. No venous outflow obstruction. 2. Right: Moderate venous incompetence, likely superficial in origin. Severely rapid post-exercise venous refilling time. Severely decreased calf pump function. 3. Left: Mild venous incompetence, likely superficial in origin. Severely rapid post-exercise venousrefilling time. Severely decreased calf pump function. ?? Bilateral??lower extremity venous insufficiency ultrasounds on March 30, 2021 showed ???The bilateral common femoral, femoral, and popliteal veins are competent and negative for deep venous thrombosis. The right great saphenous vein is competent at the saphenofemoral junction, severely incompetent in the proximal thigh, and competent from the level of the knee through the calf. The right great saphenous vein gives rise to varicosities. The left main great saphenous vein is competent from the saphenofemoral junction through the calf. A left anterior accessory great saphenous vein is competent. The bilateral small saphenous veins are competent. Bilateral subcutaneous edema. ?? Patient is following with physical therapy for lymphedema treatment in Physical Medicine and Rehabilitation and had application of bilateral lower extremity multilayer compression bandaging??foot??to knee for edema management on 03/28/21.?? Patient had knee-high compression stocking fitting March 30, 2021 for 20-30 mmHg knee-high stockings. She will obtain a Velcro compression device. Patient followed up with physical therapy for lymphedema treatment on May 11, 2021. ?? Patient saw Dr. Serna in Vascular on 04/02/21. Conservative, non interventional management with prescription compression garments, elevation of the extremities as tolerated, and pain control as needed recommended. Continued surveillance with lymphedema clinic was also recommended. ?? Chest X-ray 03/23/21: No comparison is available. Calcified tortuous aorta. Degenerative changes of the spine. Degenerative changes of the shoulder joints. ECG 12 Lead 03/23/21: Sinus rhythm with 1st degree A-V block, otherwise normal ECG. ?? TTE Echocardiogram 03/28/21: 1. Normal left ventricular chamber size, no regional wall motion abnormalities, calculated 2-D linear ejection fraction 68 %. 2. Sigmoid ventricular septum with basal septal prominence: 15 mm. No dynamic left ventricular outflow tract obstruction. 3. Grade 1/3 left ventricular diastolic dysfunction, consistent with low to normal left ventricular filling pressure. 4. Normal right ventricular chamber size, normal systolic function, estimated right ventricular systolic pressure 26 mmHg assuming right atrial pressure of 5 mmHg. 5. Normal inferior vena cava size with normal inspiratory collapse (>50%). 6. No significant valvular heart disease. 7. No pericardial effusion. ?? Cardiopulmonary (VO2) exercise testing with cycle March 30, 2021 showed Limited peak VO2 without clear evidence of cardiac or pulmonary impairment to exercise. Reasons for low peak VO2 likely include excess weight and limited heart rate reserve. Stress ECG was negative for ischemia. ?? Pulmonary Function Test 03/22/21: Normal study. Positive bronchodilator response. ?? 6 Minute Walk 04/02/21: Total distance walked: 630 feet; 192 meters, which is 72 % for age and gender... Her blood pressure increased to 178/76 after the test and she used a four-wheel walker for for the test. Patient saw Dr. Clement in Cardiovascular Diseases on 05/10/21. He noted Her diaphoresis with exerciseis of decades duration and represents physiologic cooling rather than pathology. The fatigue after overdoing activities is also non-pathologic...No further CV testing is indicated. Statin therapy and weight loss recommended. S S Overnight Oximetry 03/22/21: Abnormal oximetry consistent with moderate sleep disordered breathing with episodic deep desaturations suggestive of REM hypoxemia. ?? Encouraged patient to use her CPAP nightly, she was advised she can place her CPAP on a high table next to her bed so it is accessible to her. ??Her plans to help her arrange a viable option for her to use her CPAP. ?? Patient is scheduled to see Sleep??Medicine??Clinic on June 14, 2021 for further evaluation, patientis interested in an?implantable?option. ?? Encouraged patient to take statin as prescribed locally or at least to consider taking twice weekly. ?? Oxybutynin likely contributing to dry mouth??(in addition to [place] and HCTZ), advised her to stop taking oxybutynin which she agrees to do. ?? Hemoglobin A1c was 5.6 on March 07, 2021. ?? TSH mildly elevated, acceptable for her age. Normal free T4 and negative TPO antibodies. Repeat TSH and free T4 in 6 months locally, if stable can repeat annually thereafter. ?? Encouraged her to decrease her Vitamin D3 2000 units to once every other day or less often as her vitamin-D level is currently high normal. Continue adequate dietary calcium. Encouraged her to considercalcium supplementation if she is not consuming sufficient dietary calcium. ?? Adequate dietary protein recommended such as cheese, fish, chicken, nuts, beans, seeds, and avocado. Patient saw Dr. Romero in Endocrinology??Weight??Management clinic on May 10, 2021. Regular physical activity recommended and she was encouraged to gradually incorporate 5-10 minute of exercise. Patient will need to adhere to a 1200 calorie per day diet to see significant weight loss. Three month follow-up recommended to assess if medications should be considered. Encouraged her to eat smaller portions. Patient scheduled to see leaf stripper in Weight Management Clinic on June 15, 2021. # Hypermagnesemia ?? Continue to avoid magnesium supplementation. ?? 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 Patient was recently seen by Neurology.?Patient??saw Spine Clinic??on March 27, 2021. Most recent MRI results and outside Physical Medicine and Rehabilitation Clinic notes requested for review as patient interested in establishing care at [facility] for injections which were previously done locally and patient found helpful. Importance of continued weight loss and physical therapy discussed. Patient was provided a prescription to pursue physical therapy closer to home. ?? Patient followed up with [facility] on 04/18/21. Suspected that a significant part of her back pain is related to her facet changes. Her leg symptoms are multifactorial with significant component related to her peripheral neuropathy. If her local physical therapy is ineffective, can consider repeat epidural or facet-directed procedures. If this is considered, an updated MRI would be ordered. Patient will contact the Spine Clinic in 4-6 weeks with an update. ?? # GERD # History of ruptured diverticulitis s/p partial colectomy in 2005 # History of duodenal ulcer at 17 years old??in the setting of life stressors # Constipation alternating with loose stools and abdominal cramping ?? Encouraged her to avoid alcohol.?Symptoms have resolved currently.?Patient was seen by Gastroenterology for similar symptoms in January 2017. ??This can be further evaluated in the future if persistent,??bothersome,??or recurrent symptoms. ?? # Urinary incontinence # Recent urinary tract infection # Urine culture grew Proteus mirabilis that is resistant to nitrofurantoin and cefazolin ?? Uroflow 03/26/21: Moderate Q max borderline low voided volume low postvoid residual. ?? Furosemide stopped and discontinued from her medication list. Patient plans to also stop oxybutynin.Patient currently remains on hydrochlorothiazide 12.5 mg daily. ?? She denies dysuria currently. Recent urine culture grew resistant bacteria, discussed the importanceof avoiding unnecessary antibiotics in the future. If she develops severe dysuria, fever, or confusion discussed treatment of urinary tract infection may be necessary in the future. Patient saw Dr. Ewing in Urology Incontinence Clinic on May 10, 2021. Weight loss, timed/double voiding, and CPAP compliance recommended. Patient opted to stop oxybutynin to see if there is any worsening of her symptoms. If her urge urinary incontinence worsens patient will contact Urology in a month and it will be considered whether to start trospium 60 mg ER. ?? # History of Depression ?? Well controlled on bupropion??per patient, encouraged her to continue the same.? # Changing/increasing skin lesions ?? Patient referred to dermatology for further evaluation. Orders Placed This Encounter Procedures ??? Dermatology - Skin check consult (clinic) Pending/follow up: Remainder of chronic kidney disease management per Nephrology, schedule nephrology follow-up for July 2021 Remainder of lymphedema care per Physical Therapy in [facility] Remainder of Weight Management care per Endocrinology, follow-up due in July 2021 Remainder of back pain care per Spine Clinic Repeat Vitamin D level locally in 6 months Repeat TSH and free T4 in 6 months locally, if stable repeat annually thereafter Lucia Miller acted as documentation clinical trial assistant for this encounter. ADDENDUM 07/23/21: Kidney ultrasound with Doppler on May 15, 2021 showed No renal artery stenosis. No hydronephrosis. Patient saw Dr. Pavon in Sleep Medicine on June 14, 2021, please see his note for complete details. It was discussed that she does not need to reach for her device when getting out of bed at night as her device has an auto on/off. The humidity setting was increased on her CPAP as she complains of dry mouth. Heated tubing was also prescribed. He was hopeful she will be able to resume her CPAP use. She was informed she does not qualify for [facility] therapy due to her BMI. She was advised not to snack inthe middle of the night and encouraged to consider drinking herbal tea instead. Patient will be scheduled to follow-up with Sleep Medicine Clinic in late August 2021. Patient saw Ceci Guaman RDN, LD for Nutrition weight management consult on June 15, 2021, please see her note for complete details. She was encouraged to increase fruit and vegetable intake, use theplate method for portion control, to use less oil, butter, and condiments; and to use [employer] daily for 5 minutes. Patient is scheduled for follow-up with leaf stripper on September 17, 2021. Patient saw Dr. Cardoza in Dermatology on June 20, 2021, please see his note for complete details. 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 Sun protection, sun avoidance, and an annual full skin cancer screening examination recommended. Observation recommended for her multiple nevi, multiple seborrheic keratosis, and multiple vigil angiomas. For her intertrigo, ketoconazole 2% cream in combination with hydrocortisone 1% cream twice a day for 4 weeks was recommended in addition to keeping the area dry. documented in this encounter Plan of Treatment Scheduled Referrals Name Type Priority Associated Order Schedule Diagnoses Dermatology - Skin Outpatient Referral Routine Lesion Skin Ex pected: check consult 05/11/2021 (clinic) (Approximate), Expires: 05/11/2024 documented as of this encounter Visit Diagnoses Diagnosis Lesion Skin - Primary Chronic Kidney Disease Stage 4 Glomerula r Filtration Rate 15-29 ([facility]) Dyspnea On Exertion Obstructive Sleep Apnea Adult Morbid Obesity Body Mass Index 40.0-44.9 Adult ([facility]) Incontinence Urinary Edema Leg documented in this encounter Additional Health Concerns Assessment Noted Time PHQ-9 Depression Total Score: 15 03/22/2021 12:16 PM C DT documented as of this encounter
--- OUTSIDE RECORDS SUMMARY | 2022-10-07 10:43 | XMS_ITS | Encounter Summary ---
:1935 Author Organization [facility] Address [address] [place] [address] Care Team Providers Name Role Phone Unavailable Primary Care Provider Unavailable Encounter Details Date Type Department Care Team Description 05/11/2021 Hospital Encounter Department of Jerome Duong rtensive Chronic Laboratory Medicine Evette Zhang, Kidney D isease (CKD) and Pathology, Ph.D. Stage 3b Glomerular [facility] in [address] Filtration Rate [place], [place] (GFR) 30 To 44 (HCC) [place] [address] [address] [facility] [phone] [place], [place] (Work) [phone] Social History Tobacco Use Types Packs/Day Years [...] by 0 acid-epa 120-180 mg mouth daily. [place] 3 capsule (strength unknown) esomeprazole (NexIUM) Take [...] vitamin C/biotin Take 1 capsule by 0 ([id number], VIT mouth daily. C-BIOTIN, ORAL) VITAMIN K2 [...] Diagnosis Comme nts ALBUMIN, RANDOM, U Routine 05/11/2021 12:28 Hypertensive Chron ic Results for this PM CDT Kidney Disease (CKD) procedu re are in Stage 3b Glomerular the resu lts Filtration Rate (GFR) sectio n. 30 To 44 (HCC) CREATININE, RANDOM, Routine 05/11/2021 12:28 Hypertensive Gun Examiner barb Results for this U PM CDT Kidney Disease (CKD) procedu re are in Stage 3b Glomerular the resu lts Filtration Rate (GFR) sectio n. 30 To 44 (HCC) [place] OSMOLALITY ASSAY Routine 05/11/2021 11:33 Resu lts for this URINE AM CDT procedure are i n the results section. DIPSTICK, U Routine 05/11/2021 11:33 Results for this AM CDT procedure are i n the results section. PH, RANDOM, U Routine 05/11/2021 11:33 Results fo r this AM CDT procedure are i n the results section. MICROSCOPIC MANUAL Routine 05/11/2021 11:33 Resul ts for this AM CDT procedure are i n the results section. PROTEIN/CREATININE Routine 05/11/2021 11:33 Hypertensive Chron ic Results for this RATIO, RANDOM, URINE AM CDT Kidney Disease (CKD) procedure are in Stage 3b Glomerular the resu lts Filtration Rate (GFR) sectio n. 30 To 44 (HCC) URINALYSIS WITH Routine 05/11/2021 11:33 Hypertensive Chronic Results for this MICROSCOPIC AM CDT Kidney Disease (CKD) procedu re are in Stage 3b Glomerular the resu lts Filtration Rate (GFR) sectio n. 30 To 44 ([facility]) documented in this encounter Results Albumin, Random, Urine (05/11/2021 12:28 PM CDT) P athologist Signature Albumin, 19.9 mg/L 05/11/2021 DTL Random, U 2:30 PM CDT Comment: ----ADDITIONAL INFORMATION---- This test has been modified from the man ufacturer's instructions. Its performance characteri stics were determined by [facility] in a manner co nsistent with [...] Organization Address City/State/ZIP Code Phon e Number [facility] - [address] Creatinine, Random, Urine (05/11/2021 12:28 PM CDT) athologist Signature Creatinine, 96 16 - 326 05/11/2021 DTL Random, U mg/dL 1:52 PM CDT Specimen Anatomical Collection Method Collection Time Receive d Time (Source) Location / / Volume Laterality Urine (Urine, 05/11/2021 12:28 05/11/2021 Voided) PM CDT 12:28 PM CDT Leatha Kirk M.D., Ph.D. LAB URINE ORDERABLES Performing Organization Address City/State/ZIP Code Phon e Number [facility] - [address] [place] [id number] [place] [address] (ABNORMAL) Dipstick, Urine (05/11/2021 11:33 AM CDT) [facility] gist Method Time Signature Hemoglobin, Negative Negative 05/11/2021 DTL QL, U 12:42 PM CDT Leukocyte Large (A) Negative 05/11/2021 DTL Esterase, U 12:42 PM CDT Nitrite, U Positive (A) Negative 05/11/2021 DTL 12:42 PM CDT Ketone, U Negative Negative 05/11/2021 DTL mg/dL 12:42 PM CDT Glucose, U Negative Negative 05/11/2021 DTL mg/dL 12:42 PM CDT Specimen Anatomical Collection Method Collection Time Receive d Time (Source) Location / / Volume Laterality Urine 05/11/2021 11:33 05/11/2021 AM CDT 12:29 PM CDT Leatha Kirk M.D., Ph.D. LAB URINE ORDERABLES Performing Organization Address City/State/ZIP Code Phon e Number [facility] - [id number] [place] [address] Osmolality, Urine (05/11/2021 11:33 AM CDT) athologist Signature Osmolality, U 639 150 - 1150 05/11/2021 DTL mOsm/kg 1:35 PM CDT Specimen Anatomical Collection Method Collection Time Receive d Time (Source) Location / / Volume Laterality Urine 05/11/2021 11:33 05/11/2021 AM CDT 12:29 PM CDT Leatha Kirk M.D., Ph.D. LAB URINE ORDERABLES Performing Organization Address City/[facility] Phon e Number [facility] - [address] [place] [id number] [address] pH, Random, Urine (05/11/2021 11:33 AM CDT) athologist Signature pH, Random, U 6.8 4.5 - 8.0 05/11/2021 DTL 1:35 PM CDT Specimen Anatomical Collection Method Collection Time Receive d Time (Source) Location / / Volume Laterality Urine 05/11/2021 11:33 05/11/2021 AM CDT 12:29 PM CDT Leatha Kirk M.D., Ph.D. LAB URINE ORDERABLES Performing Organization Address City/[facility] Phon e Number [facility] - [address] (ABNORMAL) Microscopic Manual (05/11/2021 11:33 AM CDT) athologist Signature Microscopy Abnormal 05/11/2021 DTL 2:40 PM CDT RBC <3 <3 /hpf 05/11/2021 DTL 2:40 PM CDT WBC 4-10 /hpf 05/11/2021 DTL 2:40 PM CDT Comment: ----REFERENCE VALUE---- 1-3 ??(Males) 1-10 (Females) Squamous Epithelial 21-30 /hpf 05/11/2021 2:40 PM C DT DTL Cells, U Bacteria Present (A) 05/11/2021 2:40 PM CDT DTL Crystals Triple Phosphate 05/11/2021 2:40 PM CDT DTL crystals present Specimen Anatomical Collection Method Collection Time Receive d Time (Source) Location / / Volume Laterality Urine 05/11/2021 11:33 05/11/2021 AM CDT 12:29 PM CDT Leatha Kirk M.D., Ph.D. LAB URINE ORDERABLES Performing Organization Address City/[facility] Code Phon e Number [facility] - [address] [place] [address] Protein/Creatinine Ratio, Random, Urine (05/11/2021 11:33 AM CDT) P athologist Signature Protein, Total, 12 mg/dL 05/11/2021 [...] Ph.D. LAB URINE ORDERABLES Performing Organization Address City/[facility] Code Phon e Number [facility] - [address] (ABNORMAL) Urinalysis with Microscopic: Urine, Midstream (05/11/2021 11:33 AM CDT) Patholo gist Method Time Signature [...] Organization Address City/State/ZIP Code Phon e Number [facility] - [address] [place], [place] [address] [facility] [place] [address] [facility] [address] documented in this encounter Visit Diagnoses Diagnosis Hypertensive Chronic Kidney Disease (CKD ) Stage 3b Glomerular Filtration Rate (GFR) 30 To 44 (HCC) documented in this encounter Additional Health Concerns Assessment Noted Time PHQ-9 Depression Total Score: 15 03/22/2021 12:16 PM C DT documented as of this encounter
--- OUTSIDE RECORDS SUMMARY | 2022-10-07 10:43 | XMS_ITS | Encounter Summary ---
:1935 Author Organization [facility] Address [address] [place] [address] Care Team Providers Name Role Phone Unavailable Primary Care Provider Unavailable Reason for Referral Outpatient (Routine) - Closed Specialty Diagnoses / Procedures Referred By Contact Refer red To Contact Nutrition Dimple Romero M.D. [facility] [address] [place] [phone] Referral ID Status Reason Start Date Expiration Date Visits Requ ested Visits Authorized [id number] Closed 06/15/2021 06/15/2022 1 1 Reason for Visit Outpatient (Routine) - Closed Specialty Diagnoses / Procedures Referred By Contact Refer red To Contact Nutrition Diagnoses Morbid Obesity Body Mass Index 40.0-44.9 Adult (HCC) Phuong Portillo M.D. [facility] [address] [place] [phone] Referral ID Status Reason Start Date Expiration Date Visits Requ ested Visits Authorized [id number] Closed 03/22/2021 03/22/2022 1 1 Encounter Details Date Type Department Care Team Description 06/15/2021 Clinical Support Department of Ursula Portillo M.D. [address] [place] [phone] Morbid Obesity Body Nutrition in DenizCeci M.S., RDN, LD [address] [place] [address] Mass Index 40.0-44.9 [place], [place] Adult ([facility]) [address] [place] [address] Social History Tobacco Use Types Packs/Day Years [...] or relatives? How often do you attend anglican or 1 to 4 times per year 03/2022 pentecostal services? Do you belong to any clubs or No 02/19/2022 organizations such as anglican groups, unions, fraternal or athletic groups, or [...] Progress Notes Ceci Guaman, AMILCAR, LD - 06/15/2021 9:00 AM CDT CHIEF COMPLAINT/REASON FOR VISIT Nutrition-Weight Management Consult Met with patient and ASSESSMENT Food/Nutrition Related History Dieting experience: She has done self-directed dieting and monitoring of portions in the past. She watches salt intake due to swelling. Eating environment: They both do the cooking [...] cm Wt Readings from Last 1 Encounters: 06/14/21 118 kg BMI Readings from Last 1 Encounters: 06/14/21 42.31 kg/m?? 05/10/21: 121 kg Estimation of Nutritional Needs [...] changes; gradual weight reduction Patient Goal(s): 1. Increase fruit and vegetable intake 2. Use Plate Method for portion control 3. Use less oil, butter, perez, etc. 4. Use Healthrider daily for 5 minutes FOLLOW UP PLAN: Follow-up appointment needs to be scheduled Time spent with patient (minutes): 60 documented in this encounter Plan of Treatment Scheduled Referrals Name Type Priority Associated Diagnoses Order S [facility] Nutrition office Outpatient Referral Routine Expe cted: visit (clinic) 09/15/2021 (Approximate), Expires: 06/15/2024 documented as of this encounter Visit Diagnoses Diagnosis Morbid Obesity Body Mass Index 40.0-44.9 Adult (HCC) documented in this encounter Additional Health Concerns Assessment Noted Time PHQ-9 Depression Total Score: 15 03/22/2021 12:16 PM C DT documented as of this encounter
--- OUTSIDE RECORDS SUMMARY | 2022-10-07 10:43 | XMS_ITS | Encounter Summary ---
:1935 Author Organization [facility] Address [address] [place] [address] Care Team Providers Name Role Phone Unavailable Primary Care Provider Unavailable Reason for Visit Reason Comments Results Encounter Details Date Type Department Care Team Description 05/23/2021 Clinical Communication Division of Diane Leal Results Nephrology and R.N. Hypertension in [address] [place], [place] [address] [place] [phone] [place], [place] [phone] (Work) [phone] Social History Tobacco Use Types Packs/Day Years [...] or relatives? How often do you attend yazdanism or 1 to 4 times per year 03/2022 congregational services? Do you belong to any clubs or No 02/19/2022 organizations such as yazdanism groups, unions, fraternal or athletic groups, or [...] place to sleep or slept in a longterm (including now)? Education Answer Date Recorded What is the highest level of school you have completed or 12 th grade 03/22/2021 the highest degree you have received? Sex Assigned at Date Recorded Female 02/19/2022 7:48 AM CDT documented as of this encounter Miscellaneous Notes Telephone Encounter - Diane Leal R.N. - 05/23/2021 2:01 PM CDT SUBJECTIVE CHIEF COMPLAINT / REASON FOR CALL Results Test Result Information: Resulted Orders US Kidneys with Renal Artery Doppler Narrative EXAM: US KIDNEYS WITH RENAL ARTERY DOPPLER Exam performed with color and spectral Doppler analysis. COMPARISON: Renal ultrasound dated 03/31/2021. FINDINGS: Right kidney: Normal echogenicity and parenchymal thickness. No hydronephrosis. Cysts with the largest one measuring 3.2 cm in size. Right renal artery: Negative for stenosis; single vessel well seen. Left kidney: Thinned and mildly echogenic parenchyma. No hydronephrosis. Cysts with the largest one measuring 3.3 cm in size. Left renal artery: Negative for stenosis; single vessel well seen. Right Renal Measurements: [...] Left segmental artery - upper pole RI: 0.85 Left segmental artery - lower pole RI: 0.82 Left renal artery origin PSV: 61 cm/s Left renal artery prox PSV: 61 cm/s Left renal artery mid PSV: 71 cm/s Left renal artery distal PSV: 82 cm/s Aorta: Normal caliber. Aorta PSV: 78 cm/s Bladder: Normal. Incidentally noted is diffuse hepatic steatosis. Impression No renal artery stenosis. No hydronephrosis. Per Dr. Brennan Kirk's recommendation it was reported to Mrs. Yap that her kidney ultrasoundshowed kidneys are normal and she does not have renal artery stenosis. It seems that the difference of kidney size in the first ultrasound was just due technique, because this ultrasound shows both kidneys to be the same size. Mrs. Yap reports that she has incorporated health lifestyle choices and is watching her sodium intake, potassium and magnesium, she has cut back on caffeine and is watching portion size. Disposition/Recommendation: self-care is appropriate at this time, patient encouraged to call back with questions Information/Education: patient/caller able to teach back Caller agreeable to plan of care: yes Telephone Encounter - Diane Leal R.N. - 05/23/2021 2:00 PM CDT ----- Message from Leatha Kirk M.D., Ph.D. sent at 05/16/2021 4:22 PM CDT ----- Regarding: Kidney ultrasound with doppler results Hi, Please call patient to let her know I have reviewed her kidney ultrasound and it shows kidneys are normal and she does not have renal artery stenosis. It seems that the difference of kidney size in thefirst ultrasound was just due technique, because this ultrasound shows both kidneys to be the same size. Thanks Yadi ----- Message ----- From: Kilo Shane In [facility] Generic [id number] Sent: 05/15/2021 3:43 PM CDT To: Leatha Kirk M.D., Ph.D. documented in this encounter Plan of Treatment Not on filedocumented as of this encounter Visit Diagnoses Not on filedocumented in this encounter Additional Health Concerns Assessment Noted Time PHQ-9 Depression Total Score: 15 03/22/2021 12:16 PM C DT documented as of this encounter
--- OUTSIDE RECORDS SUMMARY | 2022-10-07 10:43 | XMS_ITS | Encounter Summary ---
:1935 Author Organization [facility] Address [address] [place] [address] Care Team Providers Name Role Phone Unavailable Primary Care Provider Unavailable Reason for Referral MRI/CAT/PET Scan (Routine) - Closed Specialty Diagnoses / Procedures Referred By Contact Refer red To Contact Radiology Diagnoses Pain Low Back Unspecified Chao East M.D. [facility] Procedures MR Lumbar Spine without IV Contrast [address] [place] [phone] Referral ID Status Reason Start Date Expiration Date Visits Requ ested Visits Authorized [id number] Closed 05/22/2021 05/22/2022 1 1 Reason for Visit MRI/CAT/PET Scan (Routine) - Closed Specialty Diagnoses / Procedures Referred By Contact Refer red To Contact Radiology Diagnoses Pain Low Back Unspecified Chao East M.D. [facility] Procedures MR Lumbar Spine without IV Contrast [address] [place], [place] [phone] Referral ID Status Reason Start Date Expiration Date Visits Requ ested Visits Authorized [id number] Closed 05/22/2021 05/22/2022 1 1 Encounter Details Date Type Department Care Team Description 06/15/2021 Hospital Encounter Department of Radiology, Monica East, Pain Low Back stewart Sharma M.D. [place], [place] [address] [facility] [address] [place] [phone] Social History Tobacco Use Types Packs/Day Years [...] or relatives? How often do you attend bahai or 1 to 4 times per year 03/2022 mormon services? Do you belong to any clubs or No 02/19/2022 organizations such as bahai groups, unions, fraternal or athletic groups, or [...] by 0 acid-epa 120-180 mg mouth daily. [place] 3 capsule (strength unknown) esomeprazole (NexIUM) Take [...] vitamin C/biotin Take 1 capsule by 0 ([id number], VIT mouth daily. C-BIOTIN, ORAL) VITAMIN K2 [...] Procedure Name Priority Date/Time Associated Comments Diagnosis MR LUMBAR SPINE RAD - Routine 06/15/2021 11:47 Pain Low Back Result s for this WITHOUT IV (most inpatients AM CDT procedure a re in CONTRAST and all the results outpatients) section. documented in this encounter Results MR Lumbar Spine without IV Contrast (06/15/2021 11:47 AM CDT) Anatomical Region Laterality Modality Lumbar Spine, Neuroradiology RST LOS, Neuroradiology N/A Magnetic Resonance ARZ [facility], Neuroradiology FLA [facility] Specimen (Source) Anatomical Collection Method Collection Time [...] in this encounter Visit Diagnoses Diagnosis Pain Low Back Unspecified documented in this encounter Additional Health Concerns Assessment Noted Time PHQ-9 Depression Total Score: 15 03/22/2021 12:16 PM C DT documented as of this encounter
--- OUTSIDE RECORDS SUMMARY | 2022-10-07 10:43 | XMS_ITS | Encounter Summary ---
:1935 Author Organization [facility] Address [address] [place] [address] Care Team Providers Name Role Phone Unavailable Primary Care Provider Unavailable Encounter Details Date Type Department Care Team Description 05/11/2021 Hospital Encounter Department of Jerome Duong rtensive Chronic Laboratory Medicine Evette Zhang, Kidney D isease (CKD) and Pathology, Ph.D. Stage 3b Glomerular [facility] in [address] Filtration Rate [place], [place] (GFR) 30 To 44 (HCC) [place] [phone] [address] [facility] [phone] [place], [place] (Work) [phone] Social History Tobacco Use Types Packs/Day Years [...] by 0 acid-epa 120-180 mg mouth daily. [place] 3 capsule (strength unknown) esomeprazole (NexIUM) Take [...] vitamin C/biotin Take 1 capsule by 0 ([id number], VIT mouth daily. C-BIOTIN, ORAL) VITAMIN K2 [...] Associated Diagnosis Comme nts RENAL FUNCTION Routine 05/11/2021 11:24 Hypertensive Chronic R esults for this PANEL, S AM CDT Kidney Disease (CKD) procedu re are in Stage 3b Glomerular the resu lts Filtration Rate (GFR) sectio n. 30 To 44 (HCC) CYSTATIN C WITH Routine 05/11/2021 11:24 Hypertensive Chronic Results for this EGFR AM CDT Kidney Disease (CKD) procedu re are in Stage 3b Glomerular the resu lts Filtration Rate (GFR) sectio n. 30 To 44 (HCC) URIC ACID, S/P Routine 05/11/2021 11:24 Hypertensive Chronic R esults for this AM CDT Kidney Disease (CKD) procedu re are in Stage 3b Glomerular the resu lts Filtration Rate (GFR) sectio n. 30 To 44 (HCC) documented in this encounter Results (ABNORMAL) Uric Acid (05/11/2021 11:24 AM CDT) P athologist Signature Uric Acid, S 8.9 (H) 2.7 - 6.1 05/11/2021 DTL mg/dL 12:26 PM CDT Specimen Anatomical Collection Method Collection Time Receive d Time (Source) Location / / Volume Laterality Blood (Blood, 05/11/2021 11:24 05/11/2021 Venous) AM CDT 11:48 AM CDT Leatha Kirk M.D., Ph.D. LAB BLOOD ADD-ON Performing Organization Address City/State/ZIP Code Phon e Number [facility] - [facility] [place], [place] [address] [facility] [place] [address] [facility] [address] (ABNORMAL) Cystatin C with Estimated GFR, S (05/11/2021 11:24 AM CDT) athologist Signature eGFR by 28 (L) >60 [...] Address City/State/ZIP Code Phon e Number [facility] - [address] [place], [place] [address] [facility] [place] [address] [facility] [address] (ABNORMAL) Renal Function Panel (05/11/2021 11:24 AM [...] 05/11/2021 DTL Black/ mL/min/BSA 12:26 PM CDT Chinese Comment: ----ADDITIONAL INFORMATION---- Estimated GFR calculated using [...] S 3.4 2.5 - 4.5 mg/dL 05/11/20 21 12:26 PM CDT DTL Specimen Anatomical Collection Method Collection Time Receive d Time (Source) Location / / Volume Laterality Blood (Blood, 05/11/2021 11:24 05/11/2021 Venous) AM CDT 11:48 AM CDT Leatha Kirk M.D., Ph.D. LAB BLOOD ADD-ON Performing Organization Address City/State/ZIP Code Phon e Number [facility] - [address] [place] [address] [facility] [place] [address] [facility] [address] documented in this encounter Visit Diagnoses Diagnosis Hypertensive Chronic Kidney Disease (CKD ) Stage 3b Glomerular Filtration Rate (GFR) 30 To 44 (HCC) documented in this encounter Additional Health Concerns Assessment Noted Time PHQ-9 Depression Total Score: 15 03/22/2021 12:16 PM C DT documented as of this encounter
--- OUTSIDE RECORDS SUMMARY | 2022-10-07 10:44 | XMS_ITS | Encounter Summary ---
:[address] [facility] Address [address] [place] [id number] Care Team Providers Name Role Phone Unavailable Primary Care Provider Unavailable Reason for Visit Physical Therapy (Routine) - Canceled Specialty Diagnoses / Procedures Referred By Contact Refer red To Contact Diagnoses Edema Leg Juanito Rodriguez M.D. [facility] Procedures PT Ongoing treatment [address] [place] [phone] Referral ID Status Reason Start Date Expiration Date Visits V isits Requested Authorized [id number] Canceled 03/27/2021 03/27/2022 10 10 Encounter Details Date Type Department Care Team Description 03/29/2021 Clinical Support Department of Physical Juanito Rodriguez M.D. [address] [place] [phone] Edema Leg Medicine and Mirian Plaza P.T., D.P.T., ABPTS-ONC [address] [place] [phone] Rehabilitation in [place], [place] [address] [place] [phone] Social History Tobacco Use Types Packs/Day Years Used Date Smoking Tobacco: Never Smokeless Tobacco: Never Alcohol Habits Answer Date Recorded How often [...] Progress Notes Mirian Plaza P.T., D.P.T. - 03/29/2021 11:30 AM CDT Physical Therapy Lymphedema Outpatient Progress Note Patient's Name: Vielka Yap Referring Provider: Juanito [...] Goals: Decreased lower extremity edema Patient Comments: was able to unwrap lower extremity this morning. Patient tolerated bandaging well, slight discomfort in the knees relieved with movement. feel in shower last night, hitting head. Ambulance called though no medical attention saught. Total Visit Count: 3 OBJECTIVE Patient arrives to therapy via wheelchair, alone. Bandages are doffed. Observation: There is a reddening skin irritation, no blister as of yet, on left 3rd toe. This is lessened over the last 24 hours as lost was applied. ?? Edema: Continues with pitting bilateral dorsum of feet though to lesser degree. Fullness throughout bilateral lower leg distal to the knee, very mild pitting at this point. 10cm measurements deferred due to time constraints. TREATMENT Therapeutic activity: Re bandage bilateral lower extremities using the following technique: Molelast on toes for compression and skin protection Skin protectant, Tubigrip Artiflex with increased attention to the ankle/heel\ 8 cm short stretch bandage base of toe just superior to the malleoli, figure-eight 10 cm short stretch bandage just superior to the malleoli to knee, spiral Instructed patient to doff these should she experience pain or increased shortness of breath. She verbalizes understanding and states that her would be able to assist in doffing. Anticipate garment fitting at [facility] tomorrow. Home Exercise Program/Education: continue ambulation as tolerated Contact monitoring: PPE used during therapy: Therapist was wearing the following PPE throughout entire session: surgicalmask Patient was wearing a mask during therapy session: yes Assessment Continued phase 1 reduction, unable to complete bandaging due to dementia and physical difficulty. Therapist applied multilayered compression bandaging bilaterally foot to knee. Lower extremityresponding well to this intervention. Will follow up next date, appointment scheduled at [facility] 4pm Mar 30 2021. Functional Goals and Timeframes: Lymphedema OT/PT Goals Goal #1: Patient will be independent with this effective lymphedema management plan. Goal #1 Date: 06/25/21 Plan TREATMENT PLAN Number of Visits: up to 5 visits Frequency: 1 time per week Plan: Plan of care initiated Plan Comments: Will return to clinic for one last follow up Anticipate compression garment fitting, unable to speak with [facility] to schedule appointment, email sent. Email received. Patient appointment at 4pm. Treatment interventions may include: Therapeutic exercise, Therapeutic functional activity, Neuromuscular re-education, Gait training Daytime Compression Program: Daytime compression bandaging Nighttime Compression Program: Nighttime compression bandaging PT: Time Spent with Patient Therapeutic Activity (min): 23 min Time Calculation Total Timed Units (min): 23 min Total Treatment Time (min): 23 min Mirian Plaza P.T., D.P.T. documented in this encounter Plan of Treatment Not on filedocumented as of this encounter Visit Diagnoses Diagnosis Edema Leg documented in this encounter Additional Health Concerns Assessment Noted Time PHQ-9 Depression Total Score: 15 03/22/2021 12:16 PM C DT documented as of this encounter
--- OUTSIDE RECORDS SUMMARY | 2022-10-07 10:44 | XMS_ITS | Encounter Summary ---
:1935 Author Organization [facility] Address [address] [place] [address] Care Team Providers Name Role Phone Unavailable Primary Care Provider Unavailable Reason for Referral Outpatient (Routine) - Closed Specialty Diagnoses / Procedures Referred By Contact Refer red To Contact Diagnoses Edema Leg Dyspnea On Exertion Phuong Portillo M.D. [facility] Procedures Six Minute Walk [address] [place] [phone] Referral ID Status Reason Start Date Expiration Date Visits Requ ested Visits Authorized [id number] Closed 03/22/2021 03/22/2022 1 1 Reason for Visit Outpatient (Routine) - Closed Specialty Diagnoses / Procedures Referred By Contact Refer red To Contact Diagnoses Edema Leg Dyspnea On Exertion Phuong Portillo M.D. [facility] Procedures Six Minute Walk [address] [place] [phone] Referral ID Status Reason Start Date Expiration Date Visits Requ ested Visits Authorized [id number] Closed 03/22/2021 03/22/2022 1 1 Encounter Details Date Type Department Care Team Description 04/02/2021 Hospital Encounter Department of Cardiac Lindsey, Edema Leg; Rehabilitation in Phuong Corley M.D. Dyspnea On Exertion [place], [place] [address] [facility] [address] [place] [phone] Social History Tobacco Use Types Packs/Day Years [...] 1 to 4 times per year 03/2022 gnosticist services? Do you belong to any clubs [...] place to sleep or slept in a fpc (including now)? Education Answer Date Recorded What [...] by 0 acid-epa 120-180 mg mouth daily. [place] 3 capsule (strength unknown) esomeprazole (NexIUM) Take [...] vitamin C/biotin Take 1 capsule by 0 ([id number], VIT mouth daily. C-BIOTIN, ORAL) VITAMIN K2 ORAL Take 1 capsule by 0 mouth daily. 120 mcg ZINC ACETATE ORAL Take 50 mg by mouth 0 daily. buPROPion XL Take 300 mg by mouth 0 02/20/2021 (WELLBUTRIN XL) 300 mg daily. 24 hr tablet calcium carb,gluc/mag Take 1 tablet by mouth 0 09/17/2021 ox,gluc (CALCIUM daily. Calcium 500 mg, MAGNESIUM ORAL) magnesium 200 mg, boron 1000 mcg,Vitamin 3 mg, Vitamin D3 6.25 mcg celecoxib (CeleBREX) Take 400 mg by mouth 0 05/11/2021 200 mg capsule every morning. cholecalciferol Take 50 mcg by mouth 0 09/17/2021 (Vitamin D3) 50 mcg daily. (2,000 Unit) tablet oxybutynin Take 1 tablet by mouth 0 11/20/2016 (DITROPAN-XL) 10 mg 24 every other day. hr tablet psyllium husk Take 1 scoopful by [...] documented as of this encounter Procedure Notes Christ Zhang CRAT - 04/02/2021 11:30 AM CDTAssociated Order(s): 6 MINUTE WALK Six Minute Walk Test VITAL SIGNS Height: 166.6 cm. Weight: 118.8 kg. BMI: 42.73 KG/M2. IMPRESSION/REPORT/PLAN Patient instructed on six minute walk test. Patient verbalized understanding. Patient performed test masked per COVID-19 protocol. Walk start time: 1130 Walk stop time: 1136 BASELINE DATA Standing BP: 136/70 Cuff size: large Arm: left Standing HR: 66 ( radial ) Dyspnea (Carissa Scale): 1 /10 Fatigue (Carissa Scale): 0 /10 SpO2(%): 99% ( finger ) Medications taken as scheduled in last 24 hours: Yes SIX-MINUTE WALK DATA Total time walked: 6 minutes Total distance walked: 630 feet; 192 meters, which is 72 % for age and gender. Rest Stops: none O2 usage: none POST TEST DATA Standing BP: 178/76 Standing HR: 78 (radial) Dyspnea (Carissa Scale): 4 /10 Fatigue (Carissa Scale): 3 /10 SpO2(%): 97 % Other symptoms comments: Patient used a four wheel walker for the test. documented in this encounter Plan of Treatment Not on filedocumented as of this encounter Procedures Procedure Name Priority Date/Time Associated Diagnosis Comme nts 6 MINUTE WALK Routine 04/02/2021 11:30 AM Edema Leg Results for this CDT Dyspnea On Exertion procedur e are in the results section . documented in this encounter Results Six Minute Walk (04/02/2021 11:30 AM CDT) Specimen (Source) Anatomical Location Collection Method / Collectio n Time Received Time / Laterality Volume Narrative Christ Zhang CRAT - 04/02/2021 11:3 0 AM CDT Christ Zhang CRAT ? 04/02/2021 11:50 AM Six Minute Walk Test VITAL SIGNS Height: 166.6 cm. ??Weight: 118.8 kg. ?? BMI: 42.73 KG/M2. IMPRESSION/REPORT/PLAN Patient instructed on six minute walk te st. ??Patient verbalized understanding. Patient performed test masked per COVID- 19 protocol. Walk start time: 1130 Walk stop time: 1136 BASELINE DATA Standing BP: 136/70 Cuff size: large Arm: left Standing HR: 66 ( radial ) Dyspnea (Carissa Scale): 1 /10 Fatigue (Carissa Scale): 0 /10 SpO2(%): 99% ( finger ) Medications taken as scheduled in last 2 4 hours: Yes SIX-MINUTE WALK DATA Total time walked: ??6 minutes Total distance walked: 630 feet; 192 met ers, which is 72 % for age and gender. Rest Stops: none O2 usage: none POST TEST DATA Standing BP: 178/76 Standing HR: 78 (radial) Dyspnea (Carissa Scale): 4 /10 Fatigue (Carissa Scale): 3 /10 SpO2(%): 97 % Other symptoms comments: Patient used a four wheel walker for the test. Phuong Portillo M.D. CV STRESS PROCEDURES documented in this encounter Visit Diagnoses Diagnosis Edema Leg Dyspnea On Exertion documented in this encounter Additional Health Concerns Assessment Noted Time PHQ-9 Depression Total Score: 15 03/22/2021 12:16 PM C DT documented as of this encounter
--- OUTSIDE RECORDS SUMMARY | 2022-10-07 10:44 | XMS_ITS | Encounter Summary ---
:1935 Author Organization [facility] Address [address] [place] [address] Care Team Providers Name Role Phone Unavailable Primary Care Provider Unavailable Reason for Referral Outpatient (Routine) - Closed Specialty Diagnoses / Procedures Referred By Contact Refer red To Contact Diagnoses Hypertensive Chronic Kidney Disease (CKD) Stage 3b Glomerular Filtration Rate (GFR) 30 To 44 (HCC) Phuong Portillo M.D. [facility] Procedures US Kidneys Bilateral with Bladder [address] [place], [place] [phone] Referral ID Status Reason Start Date Expiration Date Visits Requ ested Visits Authorized [id number] Closed 03/22/2021 03/22/2022 1 1 Reason for Visit Outpatient (Routine) - Closed Specialty Diagnoses / Procedures Referred By Contact Refer red To Contact Diagnoses Hypertensive Chronic Kidney Disease (CKD) Stage 3b Glomerular Filtration Rate (GFR) 30 To 44 (HCC) Phuong Portillo M.D. [facility] Procedures US Kidneys Bilateral with Bladder [address] [place], [place] [address] Referral ID Status Reason Start Date Expiration Date Visits Requ ested Visits Authorized [id number] Closed 03/22/2021 03/22/2022 1 1 Encounter Details Date Type Department Care Team Description 03/30/2021 Hospital Encounter Department of Larisa Portillo Chronic Radiology, Amy Corley M.D. Kidney Disease (CKD) Building, in 200 [facility] Stage 3b Glomerular [place], [place] Filtration Rat e (GFR) [place] [phone] 30 To 44 (HCC) 200 [facility] [phone] [place], [place] (Work) [phone] Social History Tobacco Use Types Packs/Day Years [...] 1 to 4 times per year 03/2022 latter day services? Do you belong to any clubs or No 02/19/2022 organizations such as jew groups, unions, fraternal or athletic groups, or [...] by 0 acid-epa 120-180 mg mouth daily. [place] 3 capsule (strength unknown) esomeprazole (NexIUM) Take [...] vitamin C/biotin Take 1 capsule by 0 ([id number], VIT mouth daily. C-BIOTIN, ORAL) VITAMIN K2 [...] Priority Date/Time Associated Comments Diagnosis US KIDNEYS RAD - Routine 03/30/2021 11:18 Hypertensive Results fo r this BILATERAL WITH (most inpatients AM CDT Chronic Kidney procedu re are in BLADDER and all Disease (CKD) Stage the resu lts outpatients) 3b Glomerular section. Filtration Rate (GFR) 30 To 44 (HCC) documented in this encounter Results US Kidneys Bilateral with Bladder (03/30/2021 11:18 AM CDT) Anatomical Region Laterality Modality Abdomen, Renal, Ultrasound RST LOS, Ultrasound ARZ LOS, Bila teral Ultrasound Ultrasound FLA LOS Specimen (Source) Anatomical Collection Method Collection Time Re ceived Time Location / / Volume Laterality 03/30/2021 11:23 AM CDT Impressions 03/30/2021 11:30 AM CDT Echogenic left kidney likely secondary to chronic renal disease. No hydronephrosis. Narrative 03/30/2021 11:30 AM CDT EXAM: US KIDNEYS BILATERAL WITH BLADDER COMPARISON: None available FINDINGS: Right kidney: 10.4 cm Cortical thickness: Normal. ?? Parenchymal echogenicity: Normal. Collecting system: No hydronephrosis. Masses: Simple cyst measuring up to 3.5 cm. Additional small cysts. Left kidney: 8.3 cm Cortical thickness: Normal. ?? Parenchymal echogenicity: Echogenic. Collecting system: No hydronephrosis. Masses: Several small cysts measuring up to 2.3 cm Bladder: Normal. Procedure Note Renata Guzmán M.D. - 03/30/2021Forma tting of this note might be different from the original. EXAM: US KIDNEYS BILATERAL WITH BLADDER COMPARISON: None available FINDINGS: Right kidney: 10.4 cm Cortical thickness: Normal. Parenchymal echogenicity: Normal. Collecting system: No hydronephrosis. Masses: Simple cyst measuring up to 3.5 cm. Additional small cysts. Left kidney: 8.3 cm Cortical thickness: Normal. Parenchymal echogenicity: Echogenic. Collecting system: No hydronephrosis. Masses: Several small cysts measuring up to 2.3 cm Bladder: Normal. IMPRESSION: Echogenic left kidney likely secondary t o chronic renal disease. No hydronephrosis. Phuong BACH US PROCEDURES documented in this encounter Visit Diagnoses Diagnosis Hypertensive Chronic Kidney Disease (CKD ) Stage 3b Glomerular Filtration Rate (GFR) 30 To 44 (HCC) documented in this encounter Additional Health Concerns Assessment Noted Time PHQ-9 Depression Total Score: 15 03/22/2021 12:16 PM C DT documented as of this encounter
--- OUTSIDE RECORDS SUMMARY | 2022-10-07 10:44 | XMS_ITS | Encounter Summary ---
:1935 Author Organization [facility] Address [address] [place] [address] Care Team Providers Name Role Phone Unavailable Primary Care Provider Unavailable Reason for Visit Outpatient (Routine) - Closed Specialty Diagnoses / Procedures Referred By Contact Refer red To Contact Vascular Medicine Diagnoses Edema Leg Thrombosis Deep Vein Personal History Phuong Portillo [place] [facility] [address] [place] [address] Referral ID Status Reason Start Date Expiration Date Visits Requ ested Visits Authorized [id number] Closed 03/22/2021 03/22/2022 1 1 Encounter Details Date Type Department Care Team Description 04/02/2021 Comprehensive Visit Division of Vascular Te Serna, Edema Leg; and Endovascular M.B.B.S. Thrombosis Deep Vein Personal History Surgery in [place] [address] [address] [place], [place] [address] [facility] [address] [place], [place] [phone] (Work) [phone] Social History Tobacco Use Types Packs/Day Years [...] or relatives? How often do you attend congregational or 1 to 4 times per year 03/2022 muslim services? Do you belong to any clubs or No 02/19/2022 organizations such as congregational groups, unions, [employer] or athletic groups, or school groups? How [...] documented as of this encounter Consult Notes Fredy Tony D.O., M.S. - 04/02/2021 1:00 PM CDT Vielka Yap : 1935 Visit Date: 04/02/21 Referring provider: Mary Andujar* SUBJECTIVE CHIEF COMPLAINT/ REASON FOR VISIT: Lower extremity venous insufficiency HISTORY OF PRESENT ILLNESS: Veilka Yap is a very pleasant 85-year-old female with several cardiopulmonary and lowerextremity comorbidities who presents to the vascular surgery clinic, referred by her family medicineprovider, for evaluation of venous insufficiency. Per Ms. 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 She walks witha 4-wheeled walker due to issues with peripheral neuropathy, foot drop, and gait difficulties. She has had several falls over the past few months. For her lower extremity edema, she initially utilized compression stockings obtained from a local pharmacy which she did not enjoy using due to the tight elastic band. Her helped her don and doff these stockings. Recently, she received custom compression stockings from the physical medicine and rehabilitation group here at [facility]. She has never used short stretch wrapping or lymphedema pump. Prior to her visit with the lymphedema clinic in February of this year, she never had prescription or custom compression garments. At home, she relies on a 4 wheeled walker. Her makes breakfast and lunch, and she is responsible for dinner. She enjoys cooking from scratch in order to reduce the amount of salt in her food, but does state, no matter what she eats, she does experience swelling shortly after meals. She is unsure if the increase in swelling is due to her being on her feet prior to eating meals, or the foot itself. She also has moderate to severe low back pain, which limits the amount she can not stand. She has increased her amount of standing from 15 minutes to approximately 90 minutes with persistent stretching and activity. She does not experience any significant lower extremity pain. She does not take any analgesics at baseline. She recently underwent left hip arthroplasty just prior to the start of the COVID-19 pandemicand recovered well. The current medications, allergies, medical, surgical, social, and family history sections of the chart have been reviewed and updated as pertinent. Current Medications: ??? acetaminophen (TYLENOL 8 HR) 650 mg ER tablet, Take 650-1,300 mg by mouth as needed. ??? buPROPion XL (WELLBUTRIN XL) 300 mg 24 hr tablet, Take 300 mg by mouth daily. ??? buPROPion XL (WELLBUTRIN XL) 300 mg 24 hr tablet, Take 300 mg by mouth daily. ??? calcium carb,gluc/mag ox,gluc (CALCIUM MAGNESIUM ORAL), Take 1 tablet by mouth daily. Calcium 500 mg, magnesium 200 mg, boron 1000 mcg,Vitamin 3 mg, Vitamin D3 6.25 mcg ??? celecoxib (CeleBREX) 200 mg capsule, Take 400 mg by mouth every morning. ??? cholecalciferol (Vitamin D3) 50 mcg (2,000 Unit) tablet, Take 50 mcg by mouth daily. ??? coenzyme Q10 (CO Q-10) 200 mg capsule, Take 200 mg by mouth daily. ??? collagen, hydrolysate, bovine, (collagen, hydr, bovine,, bulk,) 100 % powder, as needed. One scoop PRN ??? docosahexaenoic acid-epa 120-180 mg capsule, Take 2 capsules by mouth daily. [place] 3 (strength unknown) ??? esomeprazole (NexIUM) [address] capsule, Take 20 mg by mouth as needed. ??? GLUTATHIONE MISC, Take 1 capsule by mouth daily. (strength unknown) ??? levothyroxine (SYNTHROID, LEVOTHROID) 25 mcg tablet, Take 25 mcg by mouth daily. ??? lidocaine (LMX) 4 % cream, Apply 1 application topically 3 (three) times a day as needed for pain. ??? lisinopril-hydroCHLOROthiazide (PRINZIDE,ZESTORETIC) 20-12.5 mg per tablet, Take 1 tablet by mouth daily. ??? oxybutynin (DITROPAN-XL) 10 mg 24 hr tablet, Take 1 tablet by mouth every other day. ??? psyllium husk (METAMUCIL ORAL), Take 1 scoopful by mouth as needed. ??? sennosides (SENNA LAX ORAL), Take 1 tablet by mouth as needed. ??? traMADoL (ULTRAM) 50 mg tablet, Take 50 mg by mouth as needed. ??? UNABLE TO FIND, Pro Digest 1-2 caps daily ??? UNABLE TO FIND, Nerve Formula - 2 tabs daily ??? UNABLE TO FIND, [place] juice - 1 shot daily ??? UNABLE TO FIND, Phytoceramides - 1 cap daily ??? vitamin C/biotin (DYYN-DOFK-SUSWM, VIT C-BIOTIN, ORAL), Take 1 capsule by mouth daily. ??? VITAMIN K2 ORAL, Take 1 capsule by mouth daily. 120 mcg ??? ZINC ACETATE ORAL, Take 50 mg by mouth daily. OBJECTIVE There were no vitals filed for this visit. PHYSICAL EXAM: General: Alert and oriented, no acute distress. Extremities: Notably edematous. Below the knee compression stockings in place bilaterally. Small approximately 2 cm, mobile, subcutaneous rubbery mass on the anteromedial thigh, likely to lipoma. Nonpainful to palpation. Skin: Unable to assess lower extremity skin due to compression stockings. Per recent lymphedema clinic note, no evidence of skin breakdown. VASCULAR EXAM: CEAP: Right: 3 Left: 3 DIAGNOSTIC FINDINGS: I have reviewed the patient's current laboratory, imaging, and other diagnosticstudies as pertinent. Bilateral lower extremity venous duplex performed on 03/30/2021 demonstrates an area of severe incompetence at the GSV in the right thigh, otherwise, deep and superficial venous systems are competent throughout the bilateral lower extremities. ASSESSMENT / PLAN This is an 85-year-old female who presents to the vascular surgery clinic, referred by her family medicine provider, for the evaluation of lower extremity venous disease. She has a longstanding, 30+ year history of right lower extremity lipidemia and several cardiopulmonary comorbidities. Bilateral lower extremity venous insufficiency duplex demonstrates a short segment of severely incompetent great saphenous vein in the right thigh, however, the rest of her lower extremity venous system is competent without evidence of acute thrombosis or chronic thrombotic changes. Due to her age, comorbidities, longstanding history of life edema, and minimal evidence of hemodynamically significant venous disease on lower extremity venous duplex, it would be favorable to continue with conservative, non interventional management at this time. Recommend continued use of prescription compression garments, elevation of the extremities as tolerated, and pain control as needed. Treatment of underlying cardiopulmonary comorbidities and continued surveillance with lymphedema clinic is also recommended. No indicationfor intervention at this time. Patient seen and assessed with Dr. Serna. DIAGNOSIS: #1 Edema Leg #2 Thrombosis Deep Vein Personal History Fredy Tony D.O., M.S. Associated attestation - Te Serna M.B.BSharonS. - 04/05/2021 10:47 AM CDT I saw and evaluated the patient, participating in the redding portions of the service. I reviewed the resident/fellow???s note. I agree with the resident/fellow???s findings and plan. documented in this encounter Plan of Treatment Not on filedocumented as of this encounter Visit Diagnoses Diagnosis Edema Leg Thrombosis Deep Vein Personal History documented in this encounter Additional Health Concerns Assessment Noted Time PHQ-9 Depression Total Score: 15 03/22/2021 12:16 PM C DT documented as of this encounter
--- OUTSIDE RECORDS SUMMARY | 2022-10-07 10:44 | XMS_ITS | Encounter Summary ---
:1935 Author Organization [facility] Address [address] [place] [id number] Care Team Providers Name Role Phone Unavailable Primary Care Provider Unavailable Reason for Visit Physical Therapy (Routine) - Canceled Specialty Diagnoses / Procedures Referred By Contact Refer red To Contact Diagnoses Edema Leg Juanito Rodriguez M.D. [facility] Procedures PT Ongoing treatment [address] [place] [phone] Referral ID Status Reason Start Date Expiration Date Visits V isits Requested Authorized [id number] Canceled 03/27/2021 03/27/2022 10 10 Encounter Details Date Type Department Care Team Description 03/28/2021 Clinical Support Department of Physical Juanito Rodriguez M.D. [address] [place] [phone] Edema Leg Medicine and Mirian Plaza P.T[facility] D.P.T., ABPT[facility] [address] [place] [address] [phone] Rehabilitation in [place], [place] [address] [place] [phone] Social History Tobacco Use Types Packs/Day [...] Progress Notes Mirian Plaza P.T., D.P.T. - 03/28/2021 11:30 AM CDT Physical Therapy Lymphedema Outpatient [...] Goals: Decreased lower extremity edema Patient Comments: Patient called the clinic this morning as she and her are unable to bandage her lower extremities. Fortunately we were able to assist her. She does state today that her has dementia is progressing it is and that today is not a good day for him. She was able to tolerate the bandaging that was donned yesterday, though she did wake up at 2:00 a.m. with her heels hurting. She was able to get up and move around which decrease the discomfort. Total Visit Count: 2 OBJECTIVE Right Lower Extremity 03/28/2021 10 cm 24.3 20 cm 27.4 30 cm 38.4 40 cm 40.5 50 cm 42.3 60 cm 70 cm 80 cm 90 cm Lymph Volume (L) 4004.58 ml Change in Volume (ml) -59.12 ml Change from initial Edema % -1.45 % Left Lower Extremity 03/28/2021 10 cm 22.2 20 cm 25.7 30 cm 33.2 40 cm 37.6 50 cm 37.8 60 cm 70 cm 80 cm 90 cm Lymph Volume (L) 3280.65 ml Change in Volume (ml) -231.1 ml Change from initial Edema % -6.58 % Observation: There is a reddening skin irritation, no blister as of yet, on left 3rd toe. Patient states that this from rubbing on her shoe. Edema: Continues with pitting bilateral dorsum of feet. Fullness throughout bilateral lower leg distal to the knee, very mild pitting at this point. TREATMENT Therapeutic activity: Patient arrives to the department requesting assist in doffing her compression bandaging. Arrives todepartment via wheelchair, does have walker with her. I was able to assist in doffing her compression bandaging. 1 hour later I was able to Re bandage bilateral lower extremities using the [...] would be able to assist in doffing. She is requesting another appointment be made next calendar date as traveling and being in a different environment e xacerbates her 's dementia. We were able to provide a a appointment next calendar day for patient. Home Exercise Program/Education: Continue ambulation as tolerated Contact monitoring: PPE used during therapy: Therapist was wearing the following PPE throughout entire session: surgicalmask Patient was wearing a mask during therapy session: yes Assessment Application of bilateral lower extremity multilayer compression bandaging foot to knee for edema management, addition of molelast for toe compression. Continue reduction phase. Patient will return to department next calendar date for assist with donning compression bandaging. Anticipate compression garments when reduction is adequate. Functional Goals and Timeframes: Lymphedema OT/PT Goals Goal #1: Patient will be independent with this effective lymphedema management plan. Goal #1 Date: 06/25/21 Plan TREATMENT PLAN Number of Visits: up to 5 visits Frequency: 1 time per week Plan: Plan of care initiated Plan Comments: Will return to clinic tomorrow to be bandaged. Anticipate compression garment fittingFriday pending reduction. Treatment interventions may include: Therapeutic exercise, Therapeutic functional activity, Neuromuscular re-education, Gait training Daytime Compression Program: Daytime compression bandaging Nighttime Compression Program: Nighttime compression bandaging PT: Time Spent with Patient Therapeutic Activity (min): 26 min Time Calculation Total Timed Units (min): 26 min Total Treatment Time (min): 26 min Miiran Plaza P.T., D.P.T. documented in this encounter Plan of Treatment Not on filedocumented as of this encounter Visit Diagnoses Diagnosis Edema Leg documented in this encounter Additional Health Concerns Assessment Noted Time PHQ-9 Depression Total Score: 15 03/22/2021 12:16 PM C DT documented as of this encounter
--- OUTSIDE RECORDS SUMMARY | 2022-10-07 10:44 | XMS_ITS | Encounter Summary ---
:1935 Author Organization [facility] Address [address] [place] [phone] Care Team Providers Name Role Phone Unavailable Primary Care Provider Unavailable Reason for Referral Outpatient (Routine) - Closed Specialty Diagnoses / Procedures Referred By Contact Refer red To Contact Diagnoses Edema Leg Thrombosis Deep [facility]in [facility] Lower Extremity Venous Insufficiency Bilateral M.D. [address] [place] [phone] Referral ID Status Reason Start Date Expiration Date Visits Requ ested Visits Authorized [id number] Closed 03/22/2021 03/22/2022 1 1 Reason for Visit Outpatient (Routine) - Closed Specialty Diagnoses / Procedures Referred By Contact Refer red To Contact Diagnoses Edema Leg Thrombosis [facility]in [facility] US Lower Extremity Venous Insufficiency Bilateral M.D. [address] [place] [phone] Referral ID Status Reason Start Date Expiration Date Visits Requ ested Visits Authorized [id number] Closed 03/22/2021 03/22/2022 1 1 Encounter Details Date Type Department Care Team Description 03/30/2021 Hospital Encounter Department of [facility] Radiology, Amy Corley M.D. Thrombosis Deep Vein Personal History Building, in [address] [place] [address] [address] [place], [place] [phone] (Work) [phone] Social History Tobacco Use Types Packs/Day Years [...] or relatives? How often do you attend religious or 1 to 4 times per year 03/2022 m[employer]on services? Do you belong to any clubs or No 02/19/2022 organizations such as religious groups, unions, fraternal or athletic groups, or [...] by 0 acid-epa 120-180 mg mouth daily. Stevinson 3 capsule (strength unknown) esomeprazole (NexIUM) Take [...] vitamin C/biotin Take 1 capsule by 0 ([id number], VIT mouth daily. C-BIOTIN, ORAL) VITAMIN K2 [...] Name Priority Date/Time Associated Comments Diagnosis US LOWER EXTREMITY RAD - Routine 03/30/2021 1:56 Edema Leg Results for VENOUS INSUFFICIENCY (most inpatients PM CDT Thrombosis Deep this procedure BILATERAL and all Vein Personal are in the outpatients) History results section. documented in this encounter Results US Lower Extremity Venous Insufficiency Bilateral (03/30/2021 1:56 PM CDT) Anatomical Region Laterality Modality Lower Extremity, Ultrasound RST LOS, Ultrasound ARZ LOS, Husam ateral Ultrasound Ultrasound FLA LOS, Procedural Specimen (Source) Anatomical Collection Method Collection Time Re ceived Time Location / / Volume Laterality 03/30/2021 2:01 PM CDT Impressions 03/30/2021 2:35 PM CDT Bilateral lower extremity venous competence examination; please see report for details. Narrative 03/30/2021 2:35 PM CDT EXAM: ??US LOWER EXTREMITY VENOUS INSUFFICIENCY BILATERAL Exam performed with color and spectral D oppler analysis. COMPARISON: ??None. FINDINGS: Ultrasound examination of both lower ext remities with Doppler performed for venous competence evaluation. The bilate ral common femoral, femoral, and popliteal veins are competent and negati ve for deep venous thrombosis. The right great saphenous vein is competent at the saphenofemoral junction, severely incompetent in the proximal thigh, and c ompetent from the level of the knee through the calf. The right great saphen ous vein gives rise to varicosities. The left main great saphenous vein is compet ent from the saphenofemoral junction through the calf. A left anterior access ory great saphenous vein is competent. The bilateral small saphenous veins are competent. Bilateral subcutaneous edema. DVT SCREENING RIGHT: ??Negative. LEFT: ??Negative. Exam was performed with the patient faheem sadler and the leg being evaluated in a non weight-bearing position. Right CFV: Competent. Right FV: Competent. Right Pop: Competent. Right SFJ: Competent. Right AASV: Absent. Right GSV Upper: Severe Incompetence. 6. 1 s Right GSV Knee: Competent. Right GSV Calf : Competent. Right SPJ: Absent. Right SSV Calf: Competent. Right SFJ: 8.8 mm Right AASV: Absent Right GSV Upper: 6.5 mm Right GSV Knee: 5.6 mm Right SPJ: Absent. Right SSV: 3.0 mm Left ??CFV: Competent. Left ??FV: Competent. Left ??Pop: Competent. Left ??SFJ: Competent. Left AASV: Competent. Left ??GSV Upper: Competent. Left ??GSV Knee: Competent. Left ??GSV Calf: Competent. Left ??SPJ: Absent. Left ??SSV Calf: Competent. Left SFJ: 7.8 mm Left AASV: 2.8 mm Left GSV Upper: 3.7 mm Left GSV Knee: 5.1 mm Left SPJ: Absent. Left SSV: 2.2 mm Absent= A Not Imaged= x Mild = 0.5 to 1 second Moderate= 1 to 3 seconds Severe = > 3 seconds * For the femoral and popliteal veins, s ignificant reflux is greater than 1 second. May upgrade or downgrade depending on amplitude of reflux. Procedure Note Renee Jean Baptiste M.D. - 03/30/2021Formatti ng of this note might be different from the original. EXAM: US LOWER EXTREMITY VENOUS INSUFFIC IENCY BILATERAL Exam performed with color and spectral D oppler analysis. COMPARISON: None. FINDINGS: Ultrasound examination of both lower ext remities with Doppler performed for venous competence evaluation. The bilate ral common femoral, femoral, and popliteal veins are competent and negati ve for deep venous thrombosis. The right great saphenous vein is competent at the saphenofemoral junction, severely incompetent in the proximal thigh, and c ompetent from the level of the knee through the calf. The right great saphen ous vein gives rise to varicosities. The left main great saphenous vein is compet ent from the saphenofemoral junction through the calf. A left anterior access ory great saphenous vein is competent. The bilateral small saphenous veins are competent. Bilateral subcutaneous edema. DVT SCREENING RIGHT: Negative. LEFT: Negative. Exam was performed with the patient faheem viktoriya and the leg being evaluated in a non weight-bearing position. Right CFV: Competent. Right FV: Competent. Right Pop: Competent. Right SFJ: Competent. Right AASV: Absent. Right GSV Upper: Severe Incompetence. 6. 1 s Right GSV Knee: Competent. Right GSV Calf : Competent. Right SPJ: Absent. Right SSV Calf: Competent. Right SFJ: 8.8 mm Right AASV: Absent Right GSV Upper: 6.5 mm Right GSV Knee: 5.6 mm Right SPJ: Absent. Right SSV: 3.0 mm Left CFV: Competent. Left FV: Competent. Left Pop: Competent. Left SFJ: Competent. Left AASV: Competent. Left GSV Upper: Competent. Left GSV Knee: Competent. Left GSV Calf: Competent. Left SPJ: Absent. Left SSV Calf: Competent. Left SFJ: 7.8 mm Left AASV: 2.8 mm Left GSV Upper: 3.7 mm Left GSV Knee: 5.1 mm Left SPJ: Absent. Left SSV: 2.2 mm Absent= A Not Imaged= x Mild = 0.5 to 1 second Moderate= 1 to 3 seconds Severe = > 3 seconds * For the femoral and popliteal veins, s ignificant reflux is greater than 1 second. May upgrade or downgrade depending on amplitude of reflux. IMPRESSION: Bilateral lower extremity venous compete nce examination; please see report for details. [facility] US PROCEDURES documented in this encounter Visit Diagnoses Diagnosis Edema Leg Thrombosis Deep Vein Personal History documented in this encounter Additional Health Concerns Assessment Noted Time PHQ-9 Depression Total Score: 15 03/22/2021 12:16 PM C DT documented as of this encounter
--- OUTSIDE RECORDS SUMMARY | 2022-10-07 10:44 | XMS_ITS | Encounter Summary ---
:1935 Author Organization [facility] Address [address] [place] [address] Care Team Providers Name Role Phone Unavailable Primary Care Provider Unavailable Reason for Visit Outpatient (Routine) - Closed Specialty Diagnoses / Referred By Contact Referred To Contact Procedures Cardiovascular Diseases / Diagnoses Edema Leg Dyspnea On Exertion Lindsey Phuong [facility] Cardiovascular Disease A MShea [address] [place] [address] Referral ID Status Reason Start Date Expiration Date Visits Requ ested Visits Authorized [id number] Closed 03/22/2021 03/22/2022 1 1 Encounter Details Date Type Department Care Team Description 05/10/2021 Comprehensive Visit Department of Simeon Clement Dyspnea On Exertion (Primary Dx); Cardiovascular LEvette Edema Leg; Medicine in [place], [facility] Obstructive Sleep Apnea Adult; [place], [place] Morbid Obesity Body Mass Ind ex 40.0-44.9 Adult ([facility]); [address] [facility] [id number] Chronic Kidney Disease Stage 4 Glomerula r Filtration Rate 15-29 ([facility]); [place], [place] [phone] Hypertension P ersonal History; [phone] (Work) Thrombosis Deep Vein Personal History; [phone] Other Specified Heart Block; (Fax) Incompetence Ch ronotropic Social History Tobacco Use Types Packs/Day Years [...] or relatives? How often do you attend oriental orthodox or 1 to 4 times per year 03/2022 cheondoism services? Do you belong to any clubs or No 02/19/2022 organizations such as oriental orthodox groups, unions, fraternal or athletic groups, [...] place to sleep or slept in a fci (including now)? Education Answer Date Recorded What [...] - - Weight 121 kg (265 lb 10.5 oz) 05/10/2021 10:31 AM CDT Height 166.4 cm (5' 5.51) 05/10/2021 10:31 AM CDT Body Mass Index 43.52 05/10/2021 10:31 AM CDT documented in this encounter Consult Notes Simeon Clement M.D. - 05/10/2021 10:30 AM CDT Images from the original note were not included. REFERRAL SOURCE Phuong Portillo M.D. Internal Medicine [facility] CHIEF COMPLAINT / REASON FOR VISIT Exertional fatigue and dyspnea HISTORY OF PRESENT ILLNESS Ms. Yap is an 85 yo woman from [place] who has pertinent medical conditions including HTN, obesity, untreated sleep apnea, and advanced chronic kidney disease. She is sent to Dyspnea Clinic because of exertional dyspnea, diaphoresis, and fatigue. She also has bilateral edema (suspected to be due to venous disease). I independently obtained her history which match almost verbatim with the history documented by Dr. Portillo. CAD risk factors include age, untreated hyperlipidemia (her choice), hypertension, and borderline diabetes. She is a never smoker. After I introduced myself, I indicated that I was being asked to see her because of her shortness ofbreath. She said that she was pleased to have a thorough cardiac review but was surprised that shortness of breath was the issue since she does not perceive that to significantly limit her. Rather she identifies limiting factors as including her orthopedic (back pain, prior left hip pain), asymmetric swelling with heavy legs interfering with steps, her weight and deconditioning. She sleeps poorly due to nocturia and urinary incontinence. In that light she denies orthopnea or PND. Her swelling does not improve much overnight and she thinks it is because she is up to the bathroom about 5 times per night. She does not have cardiac awareness, syncope or presyncope. Cardiac medication is limited to Prinzide / Zestoretic 20 / 12.5 mg. MEDICATIONS Current Medications: ??? acetaminophen (TYLENOL 8 HR) [...] capsule, Take 2 capsules by mouth daily. Gore 3 (strength unknown) ??? esomeprazole (NexIUM) 20 [...] - 1 cap daily ??? vitamin C/biotin ([id number], VIT C-BIOTIN, ORAL), Take 1 capsule by mouth daily. ??? VITAMIN K2 ORAL, Take 1 capsule by mouth daily. 120 mcg ??? ZINC ACETATE ORAL, Take 50 mg by mouth daily. PAST MEDICAL HISTORY Past Medical History: Diagnosis Date ??? Chronic Kidney Disease Stage 4 Glomerular Filtration Rate 15-29 (HCC) 05/10/2021 ??? Dysuria 03/26/2021 ??? Gastroesophageal Reflux Disease NOS ??? Hyperlipidemia On Treatment ??? Hypertension Personal History ??? Hypothyroidism ??? Incompetence Chronotropic 05/10/2021 ??? Irritable Bowel Syndrome Without Diarrhea ??? Lymphedema ??? Morbid Obesity Body Mass Index 40.0-44.9 Adult (HCC) ??? Obstructive Sleep Apnea Adult ??? Osteoporosis ??? Other Specified Heart Block 05/10/2021 PAST SURGICAL HISTORY Past Surgical History: Procedure Laterality Date ??? SECTION 2 ??? DILATATION AND CURETTAGE 7 ??? OTHER CONVERTED SHX (SEE COMMENT) N/A 10/11/2008 >Excision With Layered Closure. ??? OTHER CONVERTED SHX (SEE COMMENT) N/A 10/28/2008 >1. Exploration right peroneal nerve. 2. Decompression at fibular neck. ??? TONSILLECTOMY SOCIAL HISTORY Social History Socioeconomic History ??? Marital status: Spouse name: Not on file ??? Number of children: Not on file ??? Years of education: Not on file ??? Highest education level: 12th grade Occupational History ??? Not on file Tobacco Use ??? Smoking status: Never Smoker ??? Smokeless tobacco: Never Used Vaping Use ??? Vaping Use: never used Substance and Sexual Activity ??? Alcohol use: Yes Alcohol/week: 3.0 standard drinks Types: 3 Glasses of wine per week ??? Drug use: Never ??? Sexual activity: Not Currently Partners: Male control/protection: I.U.D. Other Topics Concern ??? Not on file Social History Narrative ??? Not on file Social Determinants of Health Financial Resource Strain: Low Risk ??? Difficulty of Paying Living Expenses: Not hard at all Food Insecurity: No Food Insecurity ??? Worried About Running Out of Food in the Last Year: Never true ??? Ran Out of Food in the Last Year: Never true Transportation Needs: No Transportation Needs ??? Lack of Transportation (Medical): No ??? Lack of Transportation (Non-Medical): No Physical Activity: Inactive ??? Days of Exercise per Week: 0 days ??? Minutes of Exercise per Session: 20 min Stress: Stress Concern Present ??? Feeling of Stress : To some extent Social Connections: Socially Integrated ??? Frequency of Communication with Friends and Family: Three times a week ??? Frequency of Social Gatherings with Friends and Family: Once a week ??? Attends Episcopalian Services: 1 to 4 times per year ??? Active Member of Clubs or Organizations: Yes ??? Attends Club or Organization Meetings: More than 4 times per year ??? Marital Status: Intimate Partner Violence: Not At Risk ??? Fear of Current or Ex-Partner: No ??? Emotionally Abused: No ??? Physically Abused: No ??? Sexually Abused: No VITALS Height: 166.4 cm Weight: 121 kg BMI (Calculated): 43.5 kg/m?? Blood pressure taken manually 130/64 mmHg. PHYSICAL EXAMINATION GENERAL: Obesity class 3 by BMI. Well groomed. She becomes moderately dyspneic after re dressing which includes twisting to get her brassiere on and putting her blouse on over her head. VESS: No carotid bruits. HEART: Neck veins are difficult to see given her habitus. There is a moderate right ventricular lift, the apex is quiet. S1 is normal, S2 splits widely. No murmurs or gallops. LUNG: Normal respiratory effort and air movement. Clear to auscultation. ABDOMEN: Obesity limits the sensitivity as well as the predictive accuracy. EXTREM: No clubbing or cyanosis. Moderate right and mild left leg pitting edema. GAIT: Wheelchair. She is able to get to and up onto the exam table with minimal assistance but she moves very slowly and carefully. PSYCHOL: Normal mood and affect. Oriented to person, place, and time. DIAGNOSTIC REVIEW LABS: (February) Normal hemoglobin, platelet and white blood cell count. Normal differential. (March) Normal sodium. Potassium 5.0. Creatinine 1.4, estimated GFR 34, Cystatin C 2.0, estimated GFR 26 normal calcium and glucose. Normal phosphorus. Normal albumin. Uric acid increased 10.9. NT proBNP 250. Slightly elevated sensitive TSH, normal free thyroxine. Hemoglobin A1c 5.6%. PTH level increased ECG: Sinus rhythm, first-degree heart block, rate 66 beats/min. CXR: Normal heart size. Normal pulmonary vascularity. No pleural effusions. ECHO: 1. Normal left ventricular chamber size, no [...] valvular heart disease. 7. No pericardial effusion. Because of the right ventricular lift in the widely split S2, I reviewed the echo images. I agree that right ventricular size is grossly normal, function is normal, and the inferior vena cava is small to normal. I agree with the estimated RV systolic pressure. CARDIOPULMONARY STRESS TEST: PEREA WALK: VITAL SIGNS Height: 166.6 cm. Weight: 118.8 kg. BMI: 42.73 KG/M2. BASELINE DATA Standing BP: 136/70 Cuff size: [...] gender. Rest Stops: none O2 usage: none ?? POST TEST DATA Standing BP: 178/76 Standing HR: 78 (radial) Dyspnea (Carissa Scale): 4 /10 Fatigue (Carissa Scale): 3 /10 SpO2(%): 97 % Other symptoms comments: Patient used a four wheel walker for the test. ASSESSMENT / PLAN #1 Dyspnea On Exertion #2 Edema Leg #3 Obstructive Sleep Apnea Adult #4 Morbid Obesity Body Mass Index 40.0-44.9 Adult ([facility]) #5 Chronic Kidney Disease Stage 4 Glomerular Filtration Rate 15-29 ([facility]) #6 Hypertension Personal History #7 Thrombosis Deep Vein Personal History #8 Other Specified Heart Block #9 Incompetence Chronotropic Her diaphoresis with exercise is of decades duration and represents physiologic cooling rather than pathology. The fatigue after overdoing activities is also non-pathologic. She clearly does have exertional dyspnea especially if she does too much and uses her arms which areweaker and less condition than her legs. The exercise test modalities performed prior to my meeting her are all very reassuring. She does have some early chronotropic incompetence but it is not causingher symptoms, is likely not severe enough to justify pacemaker, and her symptoms would almost certainly not be a helped by pacemaker. I agree entirely with the multifaceted approach being taken to work with physical therapy, spine in orthopedics input (I would discourage heavy reliance on nonsteroidal anti-inflammatory drugs given the renal dysfunction in the hypertension), and the approach to weight loss. I emphasize the importance of coming up with a treatment that she can tolerate for her overnight hypoxemia. I encouraged the use of a statin as opposed to an unregulated natriuceutical being promoted by an TOMY crop nutrition scientist. I am concerned about her renal dysfunction especially with a tendency towards hyperkalemia, elevatedPTH and uric acid. Her ACEi / thiazide combination will need to be commented up by [facility] when they see her. No further CV testing is indicated. Simeon Clement M.D. Answers for HPI/ROS submitted by the patient on 03/22/2021 Fatigue: Yes Weight gain of more than 10 pounds: Yes Night sweats: Yes No eye issues: Yes Persistent hoarse voice: Yes Swelling in the legs or feet: Yes Shortness of breath when lying flat: Yes Pain in the calf muscles when walking: Yes Shortness of breath: Yes Coughing up mucus (phlegm): Yes Dry cough: Yes Abdominal (belly) pain or cramping: Yes Heartburn: Yes Constipation: Yes Diarrhea: Yes Muscle pain/stiffness: Yes Pain or stiffness in the joints: Yes Back pain/stiffness: Yes Skin rash: Yes Numbness or shooting pain in hands, arms, legs or feet: Yes Weakness in arms and/or legs: Yes Loss of balance or tendency to fall easily: Yes Excessive daytime sleepiness/tiredness: Yes Stop breathing, choking, or gasping while asleep: Yes Little interest or pleasure in doing things: Yes No blood/lymph issues: Yes Frequent urination: Yes Pain with urination: Yes documented in this encounter Plan of Treatment Not on filedocumented as of this encounter Visit Diagnoses Diagnosis Dyspnea On Exertion - Primary Edema Leg Obstructive Sleep Apnea Adult Morbid Obesity Body Mass Index 40.0-44.9 Adult (HCC) Chronic Kidney Disease Stage 4 Glomerula r Filtration Rate 15-29 (HCC) Hypertension Personal History Thrombosis Deep Vein Personal History Other Specified Heart Block Incompetence Chronotropic documented in this encounter Additional Health Concerns Assessment Noted Time PHQ-9 Depression Total Score: 15 03/22/2021 12:16 PM C DT documented as of this encounter
--- OUTSIDE RECORDS SUMMARY | 2022-10-07 10:44 | XMS_ITS | Encounter Summary ---
:1935 Author Organization [facility] Address [address] [place] [address] Care Team Providers Name Role Phone Unavailable Primary Care Provider Unavailable Reason for Visit Physical Therapy (Routine) - Canceled Specialty Diagnoses / Procedures Referred By Contact Refer red To Contact Diagnoses Edema Leg Juanito Rodriguez M.D. [facility] Procedures PT Ongoing treatment [address] [place] [phone] Referral ID Status Reason Start Date Expiration Date Visits V isits Requested Authorized [id number] Canceled 03/27/2021 03/27/2022 10 10 Encounter Details Date Type Department Care Team Description 03/30/2021 Clinical Support Department of Physical Juanito Rodriguez M.D. [address] [place] [phone] Edema Leg Medicine and [facility] P.T[facility] D.P.T., ABPT[facility] [address] [place] [phone] Rehabilitation in [place], [place] [address] [place] [phone] Social History Tobacco Use Types Packs/Day [...] or relatives? How often do you attend rastafari or 1 to 4 times per year 03/2022 adventist services? Do you belong to any clubs or No 02/19/2022 organizations such as rastafari groups, unions, fraternal or athletic groups, or [...] Progress Notes Mirian Plaza P.T., D.P.T. - 03/30/2021 9:30 AM CDT Images from the original note were not included. Physical Therapy Lymphedema Outpatient Progress Note Patient's [...] Goals: Decreased lower extremity edema Patient Comments: Presents to therapy with . Tolerated bandaging well, no concerns. Brought in sock aid. Total Visit Count: 4 OBJECTIVE Right Lower Extremity 03/30/2021 10 cm 22.8 20 cm 25.9 30 cm 35.7 40 cm 38.8 50 cm 41 60 cm 70 cm 80 cm 90 cm Lymph Volume (L) 3605.68 ml Change in Volume (ml) -458.02 ml Change from initial Edema % -11.27 % Left Lower Extremity 03/30/2021 10 cm 21.9 20 cm 25.1 30 cm 32.3 40 cm 36.4 50 cm 40.5 60 cm 70 cm 80 cm 90 cm Lymph Volume (L) 3216.64 ml Change in Volume (ml) -295.11 ml Change from initial Edema % -8.4 % Reduction appreciated bilateral distal lower extremities. Edema: There continues to be very mild pitting on the dorsum of bilateral feet, though to a lesser degree. Able to appreciate bilateral malleoli. Skin is dry and flaky, right more than left. Slight pitting on the right lower leg distal to the knee, 1+. Observation: There continues to be reddening in skin irritation on the left 3rd toe, though to lesser degree as initially. TREATMENT Therapeutic activity: Patient presents to??therapy with bandages donned. Therapist was able to assist in doffing knees. 10cm measurements completed, appreciate reduction. Re bandage bilateral lower extremities using the [...] experience pain or increased shortness of breath. ??She verbalizes understanding and states that her would be able to assist in doffing. Compression garment fitting at [facility] this afternoon. Requested prescription for bilateral knee-high close toed 20-30 mmHg compression garments. Demonstrated use of the Velcro devices for edema management. Patient is very interested in obtainingthis to a donning and independence. We discussed that further edema management program. Patient is to Don compression garments during the daytime. She will obtain a Velcro device, provided screen shots and instructions on to obtain these. Should she experience increased lower extremity edema she is able to Don the Velcro device during the day. She is also able to Don the Velcro device night. Do not recommend compression garments night.Do not recommend donning the Velcro device over compression garments. Patient verbalized understanding. Home Exercise Program/Education: Printout provided to the patient and her : At this date right ankle measurements: 25.9 cm calf measurement: 41 cm Length measurement: 33 cm Recommend medium regular size Velcro device for the right lower extremity Contact monitoring: PPE used during therapy: Therapist was wearing the following PPE throughout entire session: surgicalmask Patient was wearing a mask during therapy session: yes Family member/caregiver present was wearing a mask: yes Assessment Bilateral lower extremity edema, predominantly distal to knee, adequate reduction appreciated with multilayer compression bandaging. Patient will obtain bilateral knee-high compression garments 20-30 mmHg closed toed from the [facility] this PM. She will also obtain Velcro device for the right lower extremity online upon her return home to use as an alternative compression intervention. Follow-up appointment scheduled at the end of April when she will be returning to [place] for medical followups.To contact therapist prior to this on an as- needed basis. Functional Goals and Timeframes: Lymphedema OT/PT Goals Goal #1: Patient will be independent with this effective lymphedema management plan. Goal #1 Date: 06/25/21 Plan TREATMENT PLAN Number of Visits: up to 5 visits Frequency: Recheck when returning for other appointments Plan: Continue with current plan Plan Comments: Patient will obtain compression garments from [facility] later this date. Follow-up appointment scheduled when patient is returning to [place] at the end of April for medical followups. At this point we will reassess edema management program. Treatment interventions may include: Therapeutic exercise, Therapeutic functional activity, Neuromuscular re-education, Gait training Daytime Compression Program: Custom garment (comment) Daytime Compression Program Additional Details: Bilateral knee-high 20-30 mmHg. Optional Velcro device. Nighttime Compression Program Additional Details: Option Velcro device. PT: Time Spent with Patient Therapeutic Activity (min): 46 min Time Calculation Total Timed Units (min): 46 min Total Treatment Time (min): 46 min [facility] Plaza P.T., D.P.T. documented in this encounter Plan of Treatment Not on filedocumented as of this encounter Visit Diagnoses Diagnosis Edema Leg documented in this encounter Additional Health Concerns Assessment Noted Time PHQ-9 Depression Total Score: 15 03/22/2021 12:16 PM C DT documented as of this encounter
--- OUTSIDE RECORDS SUMMARY | 2022-10-07 10:44 | XMS_ITS | Encounter Summary ---
:1935 Author Organization [facility] Address [address] [place] [address] Care Team Providers Name Role Phone Unavailable Primary Care Provider Unavailable Encounter Details Date Type Department Care Team Description 05/03/2021 Clinical Communication [facility] [place] RYANN, C.N.P. [address] [facility] [address] [place] [phone] Social History Tobacco Use Types Packs/Day Years [...] or relatives? How often do you attend gnosticism or 1 to 4 times per year 03/2022 congregational services? Do you belong to any clubs or No 02/19/2022 organizations such as gnosticism groups, unions, fraternal or athletic groups, or [...] this encounter Miscellaneous Notes Telephone Encounter - Tobi Joe APRN, C.N.P. - 05/04/2021 3:15 PM CDT I didn't see a Adolfo Mclainer listed in the quarterly, let me know if he calls back. Tobi documented in this encounter Plan of Treatment Not on filedocumented as of this encounter Visit Diagnoses Not on filedocumented in this encounter Additional Health Concerns Assessment Noted Time PHQ-9 Depression Total Score: 15 03/22/2021 12:16 PM C DT documented as of this encounter
--- OUTSIDE RECORDS SUMMARY | 2022-10-07 10:44 | XMS_ITS | Encounter Summary ---
:1935 Author Organization [facility] Address [address] [place] [id number] Care Team Providers Name Role Phone Unavailable Primary Care Provider Unavailable Reason for Visit Physical Therapy (Routine) - Canceled Specialty Diagnoses / Procedures Referred By Contact Refer red To Contact Diagnoses Edema Leg Juanito Rodriguez M.D. [facility] Procedures PT Ongoing treatment [address] [place] [phone] Referral ID Status Reason Start Date Expiration Date Visits V isits Requested Authorized [id number] Canceled 03/27/2021 03/27/2022 10 10 Encounter Details Date Type Department Care Team Description 05/10/2021 Clinical Support Department of Physical Juanito Rodriguez M.D. [address] [place] [phone] Edema Leg Medicine and Mirian Plaza P.T., D.P.T., ABPTS-ONC [address] [place] [phone] Rehabilitation in [place], [place] [address] [place] [phone] Social History Tobacco Use Types Packs/Day [...] or relatives? How often do you attend hinduism or 1 to 4 times per year 03/2022 protestant services? Do you belong to any clubs or No 02/19/2022 organizations such as hinduism groups, unions, fra[employer].branch or athletic groups, or school groups? How [...] Progress Notes Mirian Plaza, P.T., D.P.T. - 05/10/2021 2:30 PM CDT Physical Therapy Lymphedema Outpatient Progress Note [...] Decreased lower extremity edema Patient Comments: Patient returns to [place] for medical follow ups, though she reached out to speech writer May 04 2021 regarding increased lower extremity edema and intolerance to compression garments. Interval History: Following previous appointment, patient was able to obtain compression garments from [facility] (bilateral knee high 20-30mmHg). She was able to wear these garments for 2 days prior to discomfort in which she did not tolerate donning secondary to pain. She states that at this time she was not wearing anything at night and that her toes increased in size, resulting in inability to don the garments. She has not obtained velcro devices online, as discussed previous appointment. Per phone call on 05-04-2021 she stated she would initiate multilayered compression bandaging, though upon arrival to this appointment she states she has not yet done this as she and her could not remember the instructions, despite the printed out instructions provided at initial evaluation and verbal review on the phone. States she is going to start focusing on diet and exercise in weight management, inquiring about exercise recommendations but not to be too aggressive to cause pain. Total Visit Count: 5 OBJECTIVE Right Lower Extremity 05/10/2021 10 cm 25.5 20 cm 29.3 30 cm 43.9 40 cm 47 50 cm 43.2 60 cm 70 cm 80 cm 90 cm Lymph Volume (L) 4942.44 ml Change in Volume (ml) 878.74 ml Change from initial Edema % 21.62 % Left Lower Extremity 05/10/2021 10 cm 23.6 20 cm 28.7 30 cm 38.6 40 cm 42.8 50 cm 41 60 cm 70 cm 80 cm 90 cm Lymph Volume (L) 4170.02 ml Change in Volume (ml) 658.27 ml Change from initial Edema % 18.74 % Significant increase in bilateral lower extremity circumferential measurements appreciated. Edema: Significant pitting on the dorsum of bilateral feet into the distal lower leg, bilateral thighs are spared. Skin is dry and flaky, though taut and shiny. Slight erythema distally bilateral, though no concern for infection. TREATMENT Therapeutic activity: It seems that carryover is very poor for patient and her . Therapist has reviewed, demonstrated, provided written instructions multiple times on proper multilayered compression bandaging though patient and do not remember the proper technique. was present again during session toobserve the bandaging application. Patient is unable to complete this process independently as she is not able to reach her feet. 10 cm measurements completed, significant increase in fluid retention. Re bandage bilateral lower extremities using the [...] would be able to assist in doffing.?? Discussed ongoing lymphedema management. Anticipate end goal: Daytime compression garments Nighttime velcro device Patient does not want to obtain velcro devices through the [facility] secondary to cost, I highly encouraged her to order bilateral knee high velcro device immediately when reduction is achieved. Offered setting up a fitting appointment at [facility] to assist her in ordering and fitting, though she declined. If she does not order these immediately upon reduction, we may be back in the present situation-increased lower extremity edema and inability to don compression garments. She is able towear the velcro devices during the day as well if she chooses. Therapeutic exercise: Discussed exercise role in weight management and weight loss. Initiated a seated home exercise program for lower extremity to complete 3 times a day: therapist demonstrated and patient completed the following exercises requiring tactile/verbal cues for proper execution: seated march, long-arc quads, ankle pump, hip abduction with green theraband. Instructed patient to optimize standing throughout dayduring her chores and household activities. Encouraged her to increase ambulatory distance and time as tolerated. Patient does state that stair negotiation has improved and become easier recently, which she is happy about. Home Exercise Program/Education: provided and reviewed with patient Access Code: [email or web address]: [email or web address]: 05/10/2021repared by: Mirian Rolle Seated Ankle Pumps - 1 x daily - 7 x weekly - 3 sets - 10 reps Seated March - 1 x daily - 7 x weekly - 3 sets - 10 reps Seated Long Arc Quad - 1 x daily - 7 x weekly - 3 sets - 10 reps Seated Hip Abduction with Resistance - 1 x daily - 7 x weekly - 3 sets - 10 reps Contact monitoring: PPE used during therapy: Therapist was wearing the following PPE throughout entire session: surgicalmask Patient was wearing a mask during therapy session: yes Family member/caregiver present was wearing a mask: yes Assessment Worsening bilateral lower extremity edema, predominantly distal to knee and into dorsum of the foot.She was able to obtain bilateral knee high compression garments from the [facility] though did not tolerate donning these for very long as her lower extremities started to increase in size resulting inability to don the garments. Re-initiated short stretch compression bandaging this day to reduce lower extremity once again. Will follow up next calendar date as she remains in [place] to assist in applying bandages for reduction phase. Highly encouraged patient to obtain velcro devices once adequate reduction is achieved as she will need a nighttime program. Functional Goals and Timeframes: Lymphedema OT/PT Goals Goal #1: Patient will be independent with this effective lymphedema management plan. Goal #1 Date: 06/25/21 Plan TREATMENT PLAN Number of Visits: up to 5 visits Frequency: Recheck when returning for other appointments Plan: Alter current plan Plan Comments: Will reinitiate compression bandaging. Anticipate transition to compression garments during day and velcro devices at night when adequate reduction is achieved. She will be seen one moretime here in the lymphedema clinic prior to returning home. Treatment interventions may include: Therapeutic exercise, Therapeutic functional activity, Neuromuscular re-education, Gait training Daytime Compression Program: Custom garment (comment) Daytime Compression Program Additional Details: Bilateral knee-high 20-30 mmHg. Optional Velcro device. Nighttime Compression Program Additional Details: Option Velcro device. PT: Time Spent with Patient Therapeutic Activity (min): 29 min Therapeutic Exercise (min): 11 min Time Calculation Total Timed Units (min): 40 min Total Treatment Time (min): 40 min Mirian Plaza P.T., D.P.T. documented in this encounter Plan of Treatment Not on filedocumented as of this encounter Visit Diagnoses Diagnosis Edema Leg documented in this encounter Additional Health Concerns Assessment Noted Time PHQ-9 Depression Total Score: 15 03/22/2021 12:16 PM C DT documented as of this encounter
--- OUTSIDE RECORDS SUMMARY | 2022-10-07 10:44 | XMS_ITS | Encounter Summary ---
:1935 Author Organization [facility] Address [address] [place] [address] Care Team Providers Name Role Phone Unavailable Primary Care Provider Unavailable Reason for Visit Appointment Request (Routine) - Closed Specialty Diagnoses / Procedures Referred By Contact Refer red To Contact General Internal Medicine Referral ID Status Reason Start Date Expiration Date Visits Requ ested Visits Authorized [id number] Closed 03/22/2021 03/22/2022 1 1 Encounter Details Date Type Department Care Team Description 03/30/2021 Office Visit Division of General Christians, Dyspnea On Exertion (Primary Dx); Internal Medicine in [place] Obstructive Sleep Apnea Adult; [place], [place] [address] [facility] Morbid Obesity Body Mass Index 40.0-44.9 Adult ([facility]); [address] [place], [place] Hypertensive Chronic Kidney Disease (CKD) Stage 3b Glomerular Filtration Rate (GFR) 30 To 44 ([facility]); [place] [id number] Incontinence Urinary; [id number] Edema Leg Social History Tobacco Use Types [...] or relatives? How often do you attend latter-day or 1 to 4 times per year 03/2022 jewish services? Do you belong to any clubs or No 02/19/2022 organizations such as latter-day groups, unions, fraternal or athletic groups, or [...] AM CDT documented as of this encounter Patient Instructions Patient InstructionsChPhuong santiago M.D. - 03/30/2021 8:30 AM CDT When you are making your dietary changes, please ensure you are consuming adequate dietary protein such as cheese, fish, chicken, nuts, beans, seeds, and avocado. Please move your CPAP to a high table next to your bed so it can be used nightly. documented in this encounter Progress Notes Phuong Portillo M.D. - 03/30/2021 8:30 AM CDT CHIEF COMPLAINT / REASON FOR VISIT Vielka Yap is a 85 y.o. female who presents to discuss tests and consultations. Updated History: Patient accompanied by her today. Patient notes her dysuria has improved/resolved. She was treated for a UTI and was completing her antibiotic course when I last saw her. She had completed her antibiotic course 4 days prior to her last urinalysis and urine culture this week. She has not been taking furosemide. She has been wrapping her legs which has helped with her fluid retention. She will be fitted for compression stockings today. She stopped her calcium combined with magnesium supplement. She does not drink milk, but she eats a lot of cheese. She occasionally eats yogurt. She is taking Vitamin D3 2000 units daily. She drinks a lot of water. She feels her medicine is making her dry. She continues to take lisinopril-HCTZ. Her BP averages 140-145/60-70 at medical appointments, she has not checked her home blood pressure recently. She notes having a murmer as a child which has resolved. She plans to work on her diet and lose weight. She does not like to take statins and she is not taking regularly as prescribed. IMPRESSION/REPORT/PLAN Laboratory results: 03/27/21 normal urine osmolality, [...] thyroid peroxidase antibody, and normal free T4. BUN 38, creatinine 1.78, estimated GFR 26. Hemoglobin A1c 5.6 # Leg Edema # History of right lower leg/foot DVT # Hypertension # Chronic kidney disease # Class 3 Obesity # Elevated TSH (normal for age) # Obstructive Sleep Apnea not using CPAP # Dyspnea on exertion # Elevated BUN/Creatinine ratio # Elevated PTH # Elevated uric acid # Mildly decreased serum protein # Dry mouth ?? Encouraged her to check her home blood pressure twice weekly, if her blood pressure remains above 130/80, would recommend intensification of her blood pressure medication regimen. Recent lab results concerning for dehydration. Encouraged continued adequate hydration and to hold furosemide for now. 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 No hydronephrosis. Continue to completely avoid NSAID's. She plans to decrease/avoid celecoxib as well. Patient is scheduled to see Nephrology Chronic Kidney Disease clinic on May 11, 2021. ?? Leg edema likely due to vascular insufficiency. Venous Lower Extremity 03/23/21: 1. No venous outflow obstruction. 2. Right: Moderate venous incompetence, likely superficial in origin. Severely rapid post-exercise venous refilling time. Severely decreased calf pump function. 3. Left: Mild venous incompetence, likely superficial in origin. Severely rapid post-exercise venousrefilling time. Severely decreased calf pump function. Bilateral lower extremity venous insufficiency ultrasounds on March 30, [...] junction through the calf. A left anterior accessorygreat saphenous vein is competent. The bilateral small saphenous veins are competent. Bilateral subcutaneous edema. Patient is following with physical therapy for lymphedema treatment in Physical Medicine and Rehabilitation and had application of bilateral lower extremity multilayer compression bandaging foot to knee for edema management on 03/28/21. Patient is scheduled for knee-high compression stocking fitting March 30, 2021 for 20-30 mmHg knee-high stockings. Patient is scheduled to see Vascular on April 02, 2021. Weight loss recommended. ?? Chest X-ray 03/23/21: No comparison is available. Calcified tortuous aorta. Degenerative changes of the spine. Degenerative changes of the shoulder joints. ECG 12 Lead 03/23/21: Sinus rhythm with 1st degree A-V block, otherwise normal ECG. TTE Echocardiogram 03/28/21: 1. Normal left ventricular [...] valvular heart disease. 7. No pericardial effusion. Cardiopulmonary (VO2) exercise testing with cycle March 30, 2021 showed Limited peak VO2 without clear evidence of cardiac or pulmonary impairment to exercise. Reasons for low peak VO2 likely include excess weight and limited heart rate reserve. Stress ECG was negative for ischemia. Pulmonary Function Test 03/22/21: Normal study. Positive bronchodilator response. Patient is scheduled for 6 minute walk test on April 02, 2021. Patient is scheduled to see Cardiovascular Medicine on May 10, 2021 for further evaluation of dyspnea and history of significant diaphoresis and fatigue with exertion. Overnight Oximetry 03/22/21: Abnormal oximetry consistent with moderate sleep disordered breathing with episodic deep desaturations suggestive of REM hypoxemia. Encouraged patient to use her CPAP nightly, she was advised she can place her CPAP on a high table next to her bed so it is accessible to her. Patient is scheduled to see Sleep Medicine Clinic on June 14, 2021 for further evaluation as patientinterested in an ???implantable?? option. Encouraged patient to take statin as prescribed locally or at least to consider taking twice weekly. ?? Oxybutynin likely contributing to dry mouth (in addition to [place] and HCTZ), advised her to stop taking oxybutynin if it is not helping her symptoms. ?? Hemoglobin A1c was 5.6 on March 07, 2021. Patient scheduled to see Endocrinology Weight Management clinic on May 10, 2021 and knowledge architect on June 15, 2020. ?? TSH mildly elevated, acceptable for her age. Normal free T4 and negative TPO antibodies. Repeat TSH and free T4 in 6 months locally, if stable can repeat annually thereafter. Encouraged her to decrease her Vitamin D3 2000 units to once every other day or less often as her vitamin-D level is currently high normal. Continue adequate dietary calcium. Encouraged her to considercalcium supplementation if she is not consuming sufficient dietary calcium. Adequate dietary protein recommended such as cheese, fish, chicken, nuts, beans, seeds, and avocado. # Hypermagnesemia ?? Continue to avoid magnesium supplementation. 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 Patient was recently seen by Neurology. Patient saw Spine Clinic on March 27, 2021. Most recent MRI results and outside Physical Medicine and Rehabilitation Clinic notes requested for review as patient interested in establishing care at [facility] for injections which were previously done locally and patient found helpful. Importance of continued weight loss and physical therapy discussed. Patient wasprovided a prescription to pursue physical therapy closer to home. Patient is scheduled for return phone visit with Spine Clinic on April 18, 2021. # GERD # History of ruptured diverticulitis s/p partial colectomy in 2005 # History of duodenal ulcer at 17 years old in the setting of life stressors # Constipation alternating with loose stools and abdominal cramping ?? Encouraged her to avoid alcohol. Symptoms have resolved currently. Patient was seen by Gastroenterology for similar symptoms in January 2017. This can be further evaluated in the future if persistent, bothersome, or recurrent symptoms. ?? # Urinary incontinence # Recent urinary tract infection # Urine culture grew Proteus mirabilis that is resistant to nitrofurantoin and cefazolin ?? Uroflow 03/26/21: Moderate Q max borderline low voided volume low postvoid residual. Patient is scheduled to see Urology Incontinence Clinic on May 10, 2021 Furosemide stopped and discontinued from her medication list. Advised to avoid oxybutynin if not helping. Patient currently remains on hydrochlorothiazide 12.5 mg daily. Patient's recent urinalysis was normal/unremarkable and her dysuria has resolved. Based on this, patient does not currently have a urinary tract infection. Recent urine culture grew resistant bacteria,discussed the importance of avoiding unnecessary antibiotics in the future. If she develops severe dy suria, fever, or confusion discussed treatment of urinary tract infection may be necessary in the future. ?? # History of Depression ?? Well controlled on bupropion per patient, encouraged her to continue the same. ?? Pending/follow up: Repeat Vitamin D level locally in 6 months Repeat TSH and free T4 in 6 months locally, if stable repeat annually thereafter Vascular recommendations from April 02, 2021 6 minute walk test results from April 02, 2021 Spine clinic phone visit follow-up on April 18, 2021 Endocrinology Weight Management clinic recommendations from May 10, 2021 Unit Secretary recommendations from June 15, 2020 Cardiovascular Medicine recommendations from May 10, 2021 Urology Incontinence Clinic recommendations from May 10, 2021 Nephrology Chronic Kidney Disease clinic recommendations from May 11, 2021 Sleep Medicine Clinic recommendations from June 14, 2021 ?? Patient will follow-up with me after completing evaluation as above. documented in this encounter Plan of Treatment Not on filedocumented as of this encounter Visit Diagnoses Diagnosis Dyspnea On Exertion - Primary Obstructive Sleep Apnea Adult Morbid Obesity Body Mass Index 40.0-44.9 Adult (HCC) Hypertensive Chronic Kidney Disease (CKD ) Stage 3b Glomerular Filtration Rate (GFR) 30 To 44 (HCC) Incontinence Urinary Edema Leg documented in this encounter Additional Health Concerns Assessment Noted Time PHQ-9 Depression Total Score: 15 03/22/2021 12:16 PM C DT documented as of this encounter
--- OUTSIDE RECORDS SUMMARY | 2022-10-07 10:44 | XMS_ITS | Encounter Summary ---
:1935 Author Organization [facility] Address [address] [place] [address] Care Team Providers Name Role Phone Unavailable Primary Care Provider Unavailable Reason for Visit Outpatient (Routine) - Closed Specialty Diagnoses / Procedures Referred By Contact Refer red To Contact Urology Diagnoses Dysuria Incontinence Urinary Phuong Portillo M.D. [facility] [address] [place] [phone] Referral ID Status Reason Start Date Expiration Date Visits Requ ested Visits Authorized [id number] Closed 03/26/2021 03/26/2022 1 1 Encounter Details Date Type Department Care Team Description 05/10/2021 Comprehensive Visit Department of Onofre Thao; Urology in [place]ette Mullins Incontinence Urinary [place] [address] [address] [place], [place] [address] [place] [phone] [place], [place] [phone] (Work) [phone] Social History Tobacco Use Types Packs/Day Years [...] 1 to 4 times per year 03/2022 mormonism services? Do you belong to any clubs or No 02/19/2022 organizations such as christian groups, unions, fraNutriVentures or athletic groups, or school groups? How [...] documented as of this encounter Consult Notes Onofre Thao M.D. - 05/10/2021 1:30 PM CDT I have personally reviewed the past medical history, pertinent review of systems, family history, surgical history and physical exam. I have discussed the case with my clinical team and I agree with the plan and action as outlined by my team. Onofre Ewing M.D. - 05/10/2021 1:30 PM CDT Referring Provider/Service: Phuong Portillo M.D. [address] [place] [phone] CHIEF COMPLAINT Urge urinary incontinence HISTORY OF PRESENT ILLNESS Ms. Yap is a 85 y.o. female with a past medical history of obesity, [place], CKD, HTN, and bilateral lower extremity edema who presents with a several year history of urge urinary incontinence. She was last evaluated in our in clinic for the same issue in September 2017. She was initiated on Ditropan XL10 mg in November 2016 but feels this it is no longer helping. She currently will leak multiple times a day. She will leak a gush of urine when she develops an urge. She does not leak with activity. She is wearing 2 heavy pads a day. SYSTEMS REVIEW Constitutional: Positive for fatigue, night sweats and weight gain of more than 10 pounds. Skin: Positive for skin rash. ENT: Positive for persistent hoarse voice. Respiratory: Positive for coughing up mucus (phlegm), dry cough, dyspnea and sleep disturbances due to breathing. Cardiovascular: Positive for swelling in the legs or feet, pain in the calf muscles when walking andshortness of breath when lying flat. Gastrointestinal: Positive for abdominal (belly) pain or cramping, constipation, diarrhea and heartburn. Genitourinary: Positive for incontinence and urgency. Negative for pain with urination and frequent urination. Musculoskeletal: Positive for arthralgias, back pain, pain or stiffness in the joints and muscle pain/stiffness. Neurological: Positive for numbness or shooting pain in hands, arms, legs, or feet, excessive daytime sleepiness, loss of balance or tendency to fall easily and weakness in arms or legs. Psychiatric/Behavioral: Positive for excessive daytime sleepiness/tiredness, stop breathing, choking, or gasping while asleep and little interest or pleasure in doing things over past two weeks. The following systems were negative: Eyes, Hematologic PHYSICAL EXAMINATION Constitutional: She is oriented to person, place, and time. No distress. HENT: Head: Normocephalic and atraumatic. Eyes: Wearing glasses Pulmonary/Chest: Effort normal. Musculoskeletal: Sitting in a wheel chair Neurological: She is alert and oriented to person, place, and time. Skin: Skin is warm and dry. Psychiatric: She has a normal mood and affect. LABS Lab Results Component Value Date NA 141 03/22/2021 NA 141 03/22/2021 CL 102 03/22/2021 CL 102 03/22/2021 CREATININE 1.43 (H) 03/22/2021 CREATININE 1.43 (H) 03/22/2021 HGB 12.6 03/07/2021 HCT 40.8 03/07/2021 WBC 5.9 03/07/2021 IMAGING AND TESTS No results found. IMPRESSION/ASSESSMENT #1 Dysuria - Resolved after completing her antibiotic course for UTI #2 Incontinence Urinary, urge - Discussed lifestyle modifications including weight loss, timed voiding, double voiding, and CPAP compliance for obstructive sleep apnea - Discussed increasing the dose of her current Ditropan versus combination therapy with Myrbetriq. She would like to try coming off the medication to see if there is any worsening of her symptoms. - Discussed Intravesical Botox injections. We discussed risks, including but not limited to: bleeding, urinary tract infection, urinary retention requiring self catheterization, need for retreatment over time as the response to Botox is transient. She would not want to catheterize herself and therefore was against this option PLAN 1. Conservative measures as stated above. She will contact us in a month if her symptoms worsen while off of Ditropan XL 10 mg. If her urge urinary continence worsens we can consider restarting this medication at a higher dose or switching her to trospium 60 mg ER Signed: Onofre Ewing M.D. documented in this encounter Plan of Treatment Not on filedocumented as of this encounter Visit Diagnoses Diagnosis Dysuria Incontinence Urinary documented in this encounter Additional Health Concerns Assessment Noted Time PHQ-9 Depression Total Score: 15 03/22/2021 12:16 PM C DT documented as of this encounter
--- OUTSIDE RECORDS SUMMARY | 2022-10-07 10:44 | XMS_ITS | Encounter Summary ---
:1935 Author Organization [facility] Address [address] [place] [address] Care Team Providers Name Role Phone Unavailable Primary Care Provider Unavailable Encounter Details Date Type Department Care Team Description 03/30/2021 Admin Visit [facility] [address] [place] [phone] Social History Tobacco Use Types Packs/Day [...] 1 to 4 times per year 03/2022 mandaen services? Do you belong to any clubs [...]
--- OUTSIDE RECORDS SUMMARY | 2022-10-07 10:44 | XMS_ITS | Encounter Summary ---
:1935 Author Organization [facility] Address [address] [place] [address] Care Team Providers Name Role Phone Unavailable Primary Care Provider Unavailable Reason for Visit Reason Comments Obesity Outpatient (Routine) - Closed Specialty Diagnoses / Procedures Referred By Contact Refer red To Contact Endocrinology Diagnoses Morbid Obesity Body Mass Index 40.0-44.9 Adult (HCC) [facility] Anyi [facility] [address] [place], [place] [phone] Referral ID Status Reason Start Date Expiration Date Visits Requ ested Visits Authorized [id number] Closed 03/22/2021 03/22/2022 1 1 Encounter Details Date Type Department Care Team Description 05/10/2021 Comprehensive Visit Division of [facility] Hyperten roseye Chronic Kidney Disease (CKD) Stage 3b Glomerular Filtration Rate (GFR) 30 To 44 (HCC) (Primary Dx); Endocrinology in Leatha mckeon Morbid Obes ity Body Mass Index 40.0-44.9 Adult (HCC); [place], [place] Evette Boateng Obstructive Sleep Apnea Adult; [address] [facility] 200 Hyperlipidemia On Treatment; [facility] Hypertension Personal History [phone] [facility] [phone] [place] [phone] Social History Tobacco Use Types Packs/Day [...] 1 to 4 times per year 03/2022 mu-ism services? Do you belong to any clubs or No 02/19/2022 organizations such as baptist groups, unions, fraternal or athletic groups, or [...] 121 kg (265 lb 10.5 oz) 05/10/2021 8:09 AM CDT Height 166.6 cm (5' 5.59) 05/10/2021 8:09 AM CDT Body Mass Index 43.41 05/10/2021 8:09 AM CDT documented in this encounter Consult Notes Leatha Romero M.D. - 05/10/2021 8:00 AM CDT SUBJECTIVE REASON FOR CONSULT Chief Complaint Patient presents with ??? Obesity HISTORY OF PRESENT ILLNESS Vielka Yap is a 85 y.o. female who I am asked to see in consultation for evaluation andtreatment of obesity. She is currently undergoing evaluation for multiple health concerns. She has struggle with her weight throughout most of her life. Most recently she has experience a precipitous we ight gain which she attributes to edema after recently discontinuing a diuretic. Her weight history is as follows: Highest adult weight: 275 lbs Current weight: Wt 121 kg (265 lb) Medical Co-morbidities: Patient Active Problem List Diagnosis ??? Edema Leg ??? Hypertensive Chronic Kidney Disease (CKD) Stage 3b Glomerular Filtration Rate (GFR) 30 To 44 (HCC) ??? Thrombosis Deep Vein Personal History ??? Dyspnea On Exertion ??? Morbid Obesity Body Mass Index 40.0-44.9 Adult (HCC) ??? Obstructive Sleep Apnea Adult ??? History Of Falling ??? Incontinence Urinary ??? Hyperlipidemia On Treatment ??? Hypertension Personal History History of Weight Loss Efforts Successful weight loss techniques attempted: self-directed dieting and She was able to lose mostly 30 lb and maintained for some time. She did this by monitoring and controlling her portions. She is not track calories. Unsuccessful weight loss techniques attempted: self-directed dieting Current Exercise Habits none and She does own exercise equipment but is quite limited as a result of arthritis involving herknees and hips and lower extremity edema. She has participated in physical therapy in the past but was unable to keep up with the program recommended after couple of weeks. She is scheduled to visit with physical therapy for the management of her lower extremity edema during this visit. Activity Tracker: No. Her walking is quite limited. She ambulates with the help of a walker or a cane. Current Eating Habits Obstacles to changes in eating habits? not feeling full or satisfied after a meal and Portion control. Other Potential Contributing Factors Psych History: mood disorder Comorbidities: Dysplipidemia, High blood pressure, Peripheral vascular disease and Obstructive sleepapnea. She has not been using her CPAP recently. The following portions of the patient's history were reviewed and updated as appropriate: allergies,current medications, family history, medical history, social history, surgical history and problem list. REVIEW OF SYSTEMS She has significant problems with mobility. She has not been able to use her CPAP recently. OBJECTIVE Ht 166.6 cm Wt 121 kg Body mass index is 43.41 kg/m??. PHYSICAL EXAMINATION General Appearance: alert, no distress, in wheelchair.. DIAGNOSTICS Reviewed laboratory tests available. ASSESSMENT / PLAN #1 Morbid Obesity Body Mass Index 40.0-44.9 Adult ([facility]) #2 Hypertensive Chronic Kidney Disease (CKD) Stage 3b Glomerular Filtration Rate (GFR) 30 To 44 ([facility]) #3 Obstructive Sleep Apnea Adult #4 Hyperlipidemia On Treatment #5 Hypertension Personal History Vielka Yap Body mass index is 43.41 kg/m??. meeting criteria for Class 3 obesity. Although I do suspect that the most recent precipitous weight gain is related to fluid retention. At this weight, there are weight related medical complications that would benefit from weight loss: Hypertension, Obstructive Sleep Apnea and DJD. We have reviewed the basic components of a weight loss program including changes in eating habits and physical activity to create a calorie restriction. At present her biggest obstacle is her limited mobility making it necessary to create a more significant calorie restriction in her diet which is often difficult to maintain long-term. Vielka Yap will visit with a dietitian to review current eating habits and receive advise on dietary changes to pursue to better manage weight. We have discussed the importance of regular physical activity. She owns quite a bit of exercise equipment and I have mainly encouraged her to gradually incorporate short bouts of exercise of 5-10 minutes in duration. I have also encouraged her to discuss this with her physical therapist. I am hesitant to consider aggressive treatment options in her situation. She may benefit from a medication controlling appetite since she will need to adhere to a low calorie intake of around 1200 calories per day in order to see significant weight loss. Considerations would include something like a GLP 1 analog. However if appetite is not an issue, we can consider an SGL T2 inhibitor that can provide many benefits to her health. It can promote weight loss, promote diuresis and potentially protect her renal function. I have deferred any prescriptions at the present time but will well come perspective from Cardiologyand Nephrology in this regard. For now, she will proceed with the appointments as scheduled. I will review. At minimum I would advise a follow-up in 3 months to assess her progress with the current salome mmendations and decide on next steps. I personally spent over half of a total 45 minutes in counseling and discussion with the patient andcoordination of care as described above. documented in this encounter Plan of Treatment Not on filedocumented as of this encounter Visit Diagnoses Diagnosis Hypertensive Chronic Kidney Disease (CKD ) Stage 3b Glomerular Filtration Rate (GFR) 30 To 44 (HCC) - Primary Morbid Obesity Body Mass Index 40.0-44.9 Adult (HCC) Obstructive Sleep Apnea Adult Hyperlipidemia On Treatment Hypertension Personal History documented in this encounter Additional Health Concerns Assessment Noted Time PHQ-9 Depression Total Score: 15 03/22/2021 12:16 PM C DT documented as of this encounter
--- OUTSIDE RECORDS SUMMARY | 2022-10-07 10:44 | XMS_ITS | Encounter Summary ---
:1935 Author Organization [facility] Address [address] [place] [address] Care Team Providers Name Role Phone Unavailable Primary Care Provider Unavailable Reason for Visit Outpatient (Routine) - Closed Specialty Diagnoses / Procedures Referred By Contact Refer red To Contact Diagnoses Dysuria Incontinence Urinary Phuong Portillo M.D. [facility] Procedures URO Uroflow [address] [place] [phone] Referral ID Status Reason Start Date Expiration Date Visits Requ ested Visits Authorized [id number] Closed 03/26/2021 03/26/2022 1 1 Encounter Details Date Type Department Care Team Description 03/28/2021 Procedure visit Department of Joseph Portillo M.D. [address] [place] [phone] Dysuria; Urology in MasterOnofre blake M.D. [address] [place] [phone] Incontinence Urinary; [place], [place] Incontinence Urinary Stress And Urge [address] [place] [phone] Social History Tobacco Use Types Packs/Day Years [...] or relatives? How often do you attend pentecostal or 1 to 4 times per year 03/2022 restoration services? Do you belong to any clubs or No 02/19/2022 organizations such as pentecostal groups, unions, fraPushPoint or athletic groups, or school groups? How [...] documented as of this encounter Progress Notes Scarlett Samaniego - 03/28/2021 3:30 PM CDT CHIEF COMPLAINT Patient here for a complex uroflow via calibrated electronic equipment and a residual urine check byultrasound. IMPRESSION/REPORT/PLAN Phuong Portillo MD ordered the patient to have a complex uroflow with residual urine check via ultrasound. Patient had a moderate urge to void. Uroflow was completed at this time. Patient voided 163mL's and had a ultrasound residual of 21 mL's. Patient rates pain at 0 on the 0 to 10 pain scale post procedure. documented in this encounter Procedure Notes Onofre Thao M.D. - 03/28/2021 3:30 PM CDTAssociated Order(s): URO UROFLOW REASON FOR VISIT: Uroflow: The patient here for a complex uroflow via calibrated electronic equipment and a residual urine check by ultrasound. FINDINGS: Peak flow 14 ml/sec Average flow 8 ml/sec Voiding time 20 sec Total voided volume 163 mls Residual urine 21 ml by ultrasound Detrusor flow pattern IMPRESSION: Moderate Q max borderline low voided volume low postvoid residual documented in this encounter Plan of Treatment Not on filedocumented as of this encounter Procedures Procedure Name Priority Date/Time Associated Diagnosis Comme nts URO UROFLOW Routine 03/28/2021 3:30 PM Dysuria Results for this CDT Incontinence Urinary procedu re are in the results section . documented in this encounter Results URO Uroflow (03/28/2021 3:30 PM CDT) Narrative Onofre Thao M.D. - 03/28/2021 3:3 0 PM CDT Onofre Thao M.D. ? 03/28/2021 ??3:11 PM REASON FOR VISIT: Uroflow: The patient here for a complex uroflow via calibrated electronic equipment and a residual urin e check by ultrasound. FINDINGS: Peak flow 14 ml/sec Average flow 8 ml/sec Voiding time ??20 sec Total voided volume 163 mls Residual urine 21 ml by ultrasound Detrusor flow pattern IMPRESSION: Moderate Q max borderline low voided vol ume low postvoid residual Phuong Portillo M.D. UROLOGY ORDERABLES documented in this encounter Visit Diagnoses Diagnosis Dysuria Incontinence Urinary Incontinence Urinary Stress And Urge documented in this encounter Additional Health Concerns Assessment Noted Time PHQ-9 Depression Total Score: 15 03/22/2021 12:16 PM C DT documented as of this encounter
--- OUTSIDE RECORDS SUMMARY | 2022-10-07 10:44 | XMS_ITS | Encounter Summary ---
:1935 Author Organization [facility] Address [address] [place] [address] Care Team Providers Name Role Phone Unavailable Primary Care Provider Unavailable Reason for Referral Outpatient (Routine) - Closed Specialty Diagnoses / Procedures Referred By Contact Refer red To Contact Diagnoses Dyspnea On Exertion Phuong Portillo M.D. [facility] Procedures Cardiopulmonary (VO2) Exercise Test [address] [place] [address] Referral ID Status Reason Start Date Expiration Date Visits Requ ested Visits Authorized [id number] Closed 03/22/2021 03/22/2022 1 1 Reason for Visit Outpatient (Routine) - Closed Specialty Diagnoses / Procedures Referred By Contact Refer red To Contact Diagnoses Dyspnea On Exertion Phuong Portillo M.D. [facility] Procedures Cardiopulmonary (VO2) Exercise Test [address] [place] [phone] Referral ID Status Reason Start Date Expiration Date Visits Requ ested Visits Authorized [id number] Closed 03/22/2021 03/22/2022 1 1 Encounter Details Date Type Department Care Team Description 03/30/2021 Hospital Encounter Department of [place], Dyspnea On Exertion Cardiovascular Diseases Phuong Corley M.D. in [facility] [address] [facility] [address] [place] [phone] Social History Tobacco Use Types Packs/Day Years [...] by 0 acid-epa 120-180 mg mouth daily. [place] 3 capsule (strength unknown) esomeprazole (NexIUM) Take [...] vitamin C/biotin Take 1 capsule by 0 ([id number], VIT mouth daily. C-BIOTIN, ORAL) VITAMIN K2 [...] Procedure Name Priority Date/Time Associated Comments Diagnosis CARDIOPULMONARY (VO2) Routine 03/30/2021 4:11 Dyspnea On Res ults for this EXERCISE TEST PM CDT Exertion procedure are in the results section. documented in this encounter Results CARDIOPULMONARY (VO2) EXERCISE TEST (03/30/2021 4:11 PM CDT) Specimen (Source) Anatomical Collection Method Collection Time Re ceived Time Location / / Volume Laterality 03/30/2021 3:07 PM CDT Narrative [facility] CV MERGE - 03/30/2021 4:49 PM CDT This result has an attachment that is no t available. See PDF For Result Procedure Note Ricardo Teague M.D., Ph.D. - 03/30/2021 See PDF For Result Phuong Portillo M.D. CV STRESS PROCEDURES Performing Organization Address City/State/ZIP Code Phon e Number [facility]GE [facility] NA documented in this encounter Visit Diagnoses Diagnosis Dyspnea On Exertion documented in this encounter Additional Health Concerns Assessment Noted Time PHQ-9 Depression Total Score: 15 03/22/2021 12:16 PM C DT documented as of this encounter
--- OUTSIDE RECORDS SUMMARY | 2022-10-07 10:44 | XMS_ITS | Encounter Summary ---
:1935 Author Organization [facility] Address [address] [place] [phone] Care Team Providers Name Role Phone Unavailable Primary Care Provider Unavailable Encounter Details Date Type Department Care Team Description 05/04/2021 Clinical Communication Department of Physical Aniket Abel montero Medicine and [address] [place] [address] Rehabilitation in [place], [place] [phone] [place] [address] [place] [phone] (Work) [phone] Social History Tobacco Use Types Packs/Day Years [...] place to sleep or slept in a [facility] (including now)? Education Answer Date Recorded What is the highest level of school you have completed or 12 th grade 03/22/2021 the highest degree you have received? Sex Assigned at Date Recorded Female 02/19/2022 7:48 AM CDT documented as of this encounter Miscellaneous Notes Telephone Encounter - Mirian Plaza P.T., D.P.T. - 05/07/2021 4:19 PM CDT Spoke with patient, was wearing compression garments for a few days but did not tolerate secondary to pain. Has experienced an increase in swelling and can no longer fit into her compression stockings.Did not obtain velcro devices. Is not wearing any type of compression currently. Does have the bandaging materials, instructed to initiate multilayered compression bandaging up to 23 hours a day as tolerated. Doff if pain or short of breath. She is scheduled to follow up with myself this Friday though I transferred her to our scheduling desk to see if there is an appointment available April as well. Questions were answered. Telephone Encounter - Abel Suero - 05/04/2021 1:52 PM CDT Caller's Name: Mrs. Vielka Yap What is the call regarding? Questions regarding when to order garments Date Last Seen: 03/30/21 Response Preference: Phone call Additional Comments: Mirian please call this patient when you are back on Friday she has had a few changes and would like to talk them over with you prior to ordering the garments you recommended. She wants to avoid have to to order multiple times. documented in this encounter Plan of Treatment Not on filedocumented as of this encounter Visit Diagnoses Not on filedocumented in this encounter Additional Health Concerns Assessment Noted Time PHQ-9 Depression Total Score: 15 03/22/2021 12:16 PM C DT documented as of this encounter
--- OUTSIDE RECORDS SUMMARY | 2022-10-07 10:44 | XMS_ITS | Encounter Summary ---
:1935 Author Organization [facility] Address [address] [place] [address] Care Team Providers Name Role Phone Unavailable Primary Care Provider Unavailable Reason for Visit Outpatient (Routine) - Closed Specialty Diagnoses / Procedures Referred By Contact Refer red To Contact Spine Tobi Joe APRN , C.N.P. [facility] [address] [place] [address] Referral ID Status Reason Start Date Expiration Date Visits Requ ested Visits Authorized [id number] Closed 03/27/2021 03/27/2022 1 1 Encounter Details Date Type Department Care Team Description 04/18/2021 Virtual Visit Department of Spine Tobi Joe Prim ary Osteoarthritis Lumbar Spine (Primary Dx); in [place], RYANN, C.N.P. Pain Low Back [place] [address] [facility] [address] [place] [phone] Social History Tobacco Use Types Packs/Day Years [...] documented as of this encounter Progress Notes Tobi Joe APRN, C.N.P. - 04/18/2021 9:00 AM CDT Visit completed via the phone. ?? Visit conducted via a phone call by Tobi Joe APRN, [facility] [employer] W[employer]ER in the [facility] to the patient in their home. CHIEF COMPLIANT: HISTORY OF PRESENT ILLNESS: Mrs. Yap is an 85-year-old patient who returns to the Spine Center today via phone followup forfurther discussion of her back and leg symptoms. Since the time of her last visit, she reports her symptoms are unchanged. She continues to have intermittent axial low back pain. She is rating this today as a 2. She reports at its worst it is an 8. It is always worse with standing or walking. She alsohas burning paresthesia in her bilateral legs which is is unchanged since her last visit. I reviewed outside records of her previous injections that describe right L4-5 transforaminal injection performed on March 27, 2018, as well as August 28, 2018. The patient, however, feels she had an additional injection in the fall that provided her with more significant relief than these injections in 2018. We will again try to reach out to her previous providers in the [facility] to find record of the injection that provided her significant relief of her back pain. I also reviewed with her a MRI of her lumbar spine dated from May 19, 2019. This shows multilevel degenerative disk changes. She has the slight anterolisthesis of L4 on L5. She does not have any evidence of high-grade central canal stenosis. She does have mild to moderate central canal narrowing at L3-4 secondary to facet hypertrophy as well as epidural lipomatosis. She also has mild foraminal narrowing on the left at L3-4 and L4-5. 1 Chronic low back pain #2 Bilateral lower extremity numbness #3 Peripheral neuropathy #4 Obesity, BMI of 42.7 #5 Multifactorial gait instability #6 Right footdrop/Peroneal neuropathy PLAN: I discussed with Mrs. Yap her MRI from 2019 does not show any severe central canal stenosis buthe does have ofsj-[id number]-[id number] central narrowing at L3- 4 that may be contributing to her symptoms. I anticipate a significant component of her back pain is related to her facet changes. I anticipate herleg symptoms are multifactorial with significant component related to her peripheral neuropathy. We discussed treatment options for her back pain in the setting of multilevel lumbar spondylosis including physical therapy or therapeutic injections. She is in the process of starting physical therapy through her local providers. If this is not effective, I think we could give consideration to repeat epidural or facet-directed procedures. We will try to track down the records from the injection she had in the fall that provided her with greater than 12 months of relief of her back pain. If she does not respond to the physical therapy, we could possibly repeat this injection. We would likely need to update her MRI prior to pursuing any additional therapeutic injections. The patient will contact us with an update in 4-6 weeks. Depending on her response to the physical therapy, we will potentially coordinate the repeat injection with the updated MRI prior. CURRENT MEDICATIONS Current Outpatient Medications on File Prior to Visit Medication Sig Dispense Refill ??? acetaminophen (TYLENOL 8 HR) 650 mg ER tablet Take 650-1,300 mg by mouth as needed. ??? buPROPion XL (WELLBUTRIN XL) 300 mg 24 hr tablet Take 300 mg by mouth daily. ??? buPROPion XL (WELLBUTRIN XL) 300 mg 24 hr tablet Take 300 mg by mouth daily. ??? calcium carb,gluc/mag ox,gluc (CALCIUM MAGNESIUM ORAL) Take 1 tablet by mouth daily. Calcium 500mg, magnesium 200 mg, boron 1000 mcg,Vitamin 3 mg, Vitamin D3 6.25 mcg ??? celecoxib (CeleBREX) 200 mg capsule Take 400 mg by mouth every morning. ??? cholecalciferol (Vitamin D3) 50 mcg (2,000 Unit) tablet Take 50 mcg by mouth daily. ??? coenzyme Q10 (CO Q-10) 200 mg capsule Take 200 mg by mouth daily. ??? collagen, hydrolysate, bovine, (collagen, hydr, bovine,, bulk,) 100 % powder as needed. One scoop PRN ??? docosahexaenoic acid-epa 120-180 mg capsule Take 2 capsules by mouth daily. Harvey 3 (strength unknown) ??? esomeprazole (NexIUM) [address] capsule Take 20 mg by mouth as needed. ??? GLUTATHIONE MISC Take 1 capsule by mouth daily. (strength unknown) ??? levothyroxine (SYNTHROID, LEVOTHROID) 25 mcg tablet Take 25 mcg by mouth daily. ??? lidocaine (LMX) 4 % cream Apply 1 application topically 3 (three) times a day as needed for pain. 30 g 3 ??? lisinopril-hydroCHLOROthiazide (PRINZIDE,ZESTORETIC) 20-12.5 mg per tablet Take 1 tablet by mouth daily. ??? oxybutynin (DITROPAN-XL) 10 mg 24 hr tablet Take 1 tablet by mouth every other day. ??? psyllium husk (METAMUCIL ORAL) Take 1 scoopful by mouth as needed. ??? sennosides (SENNA LAX ORAL) Take 1 tablet by mouth as needed. ??? traMADoL (ULTRAM) 50 mg tablet Take 50 mg by mouth as needed. ??? UNABLE TO FIND Pro Digest 1-2 caps daily ??? UNABLE TO FIND Nerve Formula - 2 tabs daily ??? UNABLE TO FIND Nopalea juice - 1 shot daily ??? UNABLE TO FIND Phytoceramides - 1 cap daily ??? vitamin C/biotin (AWZL-QAGY-JFFYA, VIT C-BIOTIN, ORAL) Take 1 capsule by mouth daily. ??? VITAMIN K2 ORAL Take 1 capsule by mouth daily. 120 mcg ??? ZINC ACETATE ORAL Take 50 mg by mouth daily. No current facility-administered medications on file prior to visit. I was on the phone with the patient today from 9:04 a.m.-9:20 a.m. documented in this encounter Plan of Treatment Not on filedocumented as of this encounter Visit Diagnoses Diagnosis Primary Osteoarthritis Lumbar Spine - Pr imary Pain Low Back Unspecified documented in this encounter Additional Health Concerns Assessment Noted Time PHQ-9 Depression Total Score: 15 03/22/2021 12:16 PM C DT documented as of this encounter
--- OUTSIDE RECORDS SUMMARY | 2022-10-07 10:45 | XMS_ITS | Encounter Summary ---
:1935 Author Organization [facility] Address [address] [place] [address] Care Team Providers Name Role Phone Unavailable Primary Care Provider Unavailable Reason for Referral Outpatient (Routine) - Closed Specialty Diagnoses / Procedures Referred By Contact Refer red To Contact Diagnoses Dysuria Incontinence Urinary Phuong Portillo M.D. [facility] Procedures URO Uroflow [address] [place] [phone] Referral ID Status Reason Start Date Expiration Date Visits Requ ested Visits Authorized [id number] Closed 03/26/2021 03/26/2022 1 1 Outpatient (Routine) - Closed Specialty Diagnoses / Procedures Referred By Contact Refer red To Contact Urology Diagnoses Dysuria Incontinence Urinary Phuong Portillo M.D. [facility] [address] [place] [address] Referral ID Status Reason Start Date Expiration Date Visits Requ ested Visits Authorized [id number] Closed 03/26/2021 03/26/2022 1 1 Encounter Details Date Type Department Care Team Description 03/26/2021 Orders Only Division of General Hillary Portillo (Primary Dx); Internal Medicine in Phuong A, M .D. Incontinence Urinary [place], [place] [address] [facility] [address] [place] [phone] Social History Tobacco Use Types Packs/Day Years [...] 1 to 4 times per year 03/2022 [facility] services? Do you belong to any clubs [...] documented as of this encounter Progress Notes Oneyda Cadet RSharonN. - 03/26/2021 10:43 PM CDT [facility] staff scheduled and contacted patient documented in this encounter Plan of Treatment Scheduled Referrals Name Type Priority Associated Order Schedule Diagnoses Urology - Female - Outpatient Referral Routine Dysuria Expected: incontinence consult Incontinence 021 (clinic) Urinary (Approximate), Expires: 03/26/2024 documented as of this encounter Results URO Uroflow (03/28/2021 3:30 [...] postvoid residual Phuong Portillo M.D. UROLOGY ORDERABLES (ABNORMAL) Bacterial Culture, Aerobic + Susc, Urine (03/27/2021 10:23 AM CDT) Patholo gist Method Time Signature Urine Culture PROTEUS MIRABILIS 03/29/2021 DTL >100,000 cfu/mL 12:53 PM CDT (A) Specimen Anatomical Collection Method Collection Time Receive d Time (Source) Location / / Volume Laterality Urine (Urine, 03/27/2021 10:23 03/27/2021 1:02 Midstream) AM CDT PM CDT Comment: Specimen Source Site: Urine Organism Antibiotic Method Susceptibility Proteus mirabilis Ampicillin SUSCEPTIBILITY, 2 mcg/mL: Susc eptible YOHANA (MCG/ML) Proteus mirabilis Meropenem SUSCEPTIBILITY, <=0.12 mcg/mL: YOHANA (MCG/ML) Susceptible Proteus mirabilis Ertapenem SUSCEPTIBILITY, <=0.25 mcg/mL: YOHANA (MCG/ML) Susceptible Proteus mirabilis Piperacillin + Tazobactam SUSCEPTIBILITY, <=16 /4 mcg/mL: YOHANA (MCG/ML) Susceptible Proteus mirabilis Ciprofloxacin SUSCEPTIBILITY, <=0.25 mcg/mL: YOHANA (MCG/ML) Susceptible Proteus mirabilis Levofloxacin SUSCEPTIBILITY, <=0.5 mcg/mL: Susceptible YOHANA (MCG/ML) Proteus mirabilis Cefazolin SUSCEPTIBILITY, 8 mcg/mL: Resi stant YOHANA (MCG/ML) Proteus mirabilis Ceftriaxone SUSCEPTIBILITY, <=1 mcg/mL: Bajwa sceptible YOHANA (MCG/ML) Proteus mirabilis Ceftazidime SUSCEPTIBILITY, <=4 mcg/mL: Bajwa sceptible YOHANA (MCG/ML) Proteus mirabilis Cefepime SUSCEPTIBILITY, <=2 mcg/mL: Bajwa sceptible YOHANA (MCG/ML) Proteus mirabilis Cefazolin (Uncomplicated SUSCEPTIBILITY, 8 mcg /mL: Susceptible UTI) YOHANA (MCG/ML) Comment: The interpretation applies t o uncomplicated urinary tract infections only. It al so applies to these oral cephalosporins: cefuroxime a nd cephalexin. Proteus mirabilis Cefdinir SUSCEPTIBILITY, YOHANA <=1 mcg/mL : (MCG/ML) Susceptible Proteus mirabilis Amikacin SUSCEPTIBILITY, YOHANA <=8 mcg/mL : (MCG/ML) Susceptible Proteus mirabilis Gentamicin SUSCEPTIBILITY, YOHANA <=1 mcg/mL : (MCG/ML) Susceptible Proteus mirabilis Tobramycin SUSCEPTIBILITY, YOHANA <=1 mcg/mL : (MCG/ML) Susceptible Proteus mirabilis Aztreonam SUSCEPTIBILITY, YOHANA <=4 mcg/mL : (MCG/ML) Susceptible Proteus mirabilis Trimethoprim + SUSCEPTIBILITY, YOHANA <=0.5/9.5 mcg/mL: Sulfamethoxazole (MCG/ML) Susceptible Proteus mirabilis Nitrofurantoin SUSCEPTIBILITY, YOHANA >64 mcg/mL : (MCG/ML) Resistant Phuong Portillo M.D. LAB MICROBIOLOGY - GENERAL O KASH Performing Organization Address City/State/ZIP Code Phon e Number [facility] - [address] [place] [address] [address] [place] [address] [facility] [address] Urinalysis with Microscopic: Urine, Midstream (03/27/2021 10:23 AM CDT) [facility] Method Time Signature Source Urine, Urine, 03/27/2021 DTL Midstream 10:46 AM CDT Color, U Yellow 03/27/2021 DTL 10:46 AM CDT Clarity, U Clear 03/27/2021 DTL 10:46 AM CDT Protein, U 5 <26 mg/dL 03/27/2021 DTL 11:45 AM CDT Protein/Osmol 0.10 <0.42 03/27/2021 DTL ality ratio 12:09 PM CDT Predicted 24 79 mg/24 h 03/27/2021 DTL Hr Protein 12:09 PM CDT Predicted 20-320 mg/24 h 03/27/2021 DTL Range 12:09 PM CDT Specimen Anatomical Collection Method Collection Time Receive d Time (Source) Location / / Volume Laterality Urine (Urine, 03/27/2021 10:23 03/27/2021 Midstream) AM CDT 10:46 AM CDT Phuong Portillo M.D. LAB URINE ORDERABLES Performing Organization Address City/State/ZIP Code Phon e Number [facility] - [facility] [address] [place], [place] [address] [facility] [place] [address] [facility] [address] documented in this encounter Visit Diagnoses Diagnosis Dysuria - Primary Incontinence Urinary Dysuria Incontinence Urinary Incontinence Urinary Stress And Urge documented in this encounter Additional Health Concerns Infection Onset Date Last Indicated Resolved Time COVID19 Pending 03/27/2021 03/27/2021 03/27/2021 11:30 AM CDT Assessment Noted Time PHQ-9 Depression Total Score: 15 03/22/2021 12:16 PM C DT documented as of this encounter
--- OUTSIDE RECORDS SUMMARY | 2022-10-07 10:45 | XMS_ITS | Encounter Summary ---
:1935 Author Organization [facility] Address [address] [place] [id number] Care Team Providers Name Role Phone Unavailable Primary Care Provider Unavailable Reason for Referral Outpatient (Routine) - Closed Specialty Diagnoses / Procedures Referred By Contact Refer red To Contact Spine Tobi Joe APRN , C.N.P. [facility] [address] [place] [phone] Referral ID Status Reason Start Date Expiration Date Visits Requ ested Visits Authorized [id number] Closed 03/27/2021 03/27/2022 1 1 Physical Therapy (Routine) - Closed Specialty Diagnoses / Procedures Referred By Contact Refer red To Contact Diagnoses Primary Osteoarthritis Lumbar Spine Tobi Joe APRN, C.N.P. [address] [place] [phone] Referral ID Status Reason Start Date Expiration Visits Visits Date Requested Authorized [id number] Closed Patient 03/27/2021 03/27/2022 99 99 Preference Reason for Visit Outpatient (Routine) - Closed Specialty Diagnoses / Procedures Referred By Contact Refer red To Contact Spine Diagnoses Neuropathy Peripheral Foot Drop Right Amy Esquivel M.B.B.S. [place] [facility] [address] [place], [place] [phone] Referral ID Status Reason Start Date Expiration Date Visits Requ ested Visits Authorized [id number] Closed 03/06/2021 03/06/2022 1 1 Encounter Details Date Type Department Care Team Description 03/27/2021 Comprehensive Visit Department of Spine Tobi Joe Osteoarthritis Lumbar Spine (Primary Dx); in [facility], LUNCHROOM AIDE, Neuropathy Per ipherjayro; [place] C.N.P. Foot Drop Right; [address] [place] [phone] Social History Tobacco Use Types Packs/Day [...] or relatives? How often do you attend uatsdin or 1 to 4 times per year 03/2022 [facility] orth[facility] services? Do you belong to any clubs or No 02/19/2022 organizations such as uatsdin groups, unions, fraternal or athletic groups, or [...] documented as of this encounter Consult Notes Tobi Joe, RYANN, C.N.P. - 03/27/2021 1:30 PM CDT CHIEF COMPLIANT: Low Back Pain HISTORY OF PRESENT ILLNESS: Mrs. Yap is an 85-year-old patient who presents to the Spine Center today for evaluation of herback pain. She met with Dr. Tijerina in the Spine Center in 2007 for right leg weakness and at that time was diagnosed with a peroneal neuropathy and underwent peroneal release with Dr. Cuenca in nd unfortunately she did not have much recover with her strength ad she has had right leg weakness/footdrop since that time. In addition, she has developed axial low back pain with numbness in her bilateral legs. She met with our Neurology colleagues for management of her peripheral neuropathy and they referred her to the Spine Center for further discussion of her low back pain. She reports her back pain has been present for 8-10 years. She denies any specific injuries or accident leading to her increased pain. Her symptoms are located over her lower lumbar region. She has some numbness that extends into her bilateral legs. The numbness typically begins in her feet and extends up her leg. She describes a burning component to the numbness particularly over her anterior thighs. She has weakness in her right foot which has been stable for the past 13 years. She denies any new weakness. Her back pain is always worse with standing and walking. She reports on a good day she could stand for 60-90 minutes. There are days, however, where she cannot stand past 10 or 15 minutes. Shehas longstanding bladder urgency. She has chills but no fevers, night sweats, or unexplained weight loss. She reports she walks with assistance of a walker. She has had her back pain evaluated in the [facility] by Dr. Conway at [facility], and he has recommended continued conservative measures. She has worked with Dr. Delarosa through [facility] in [place] and performed a series of lumbar spine injections with good relief. I do not have the details of all these injections, but she describes 4 injections. She anticipates the most recent injection was 12-18 months ago. This most recent injection provided her significant relief. The previous injections had provided somewhere between 2 days to a month of relief. She has had several courses of physical therapy with her most recent course over a year ago and she finds the physical therapy helpful. She has been taking ibuprofen and Tylenol for pain control. She has not had any previous spine surgery. PAST MEDICAL HISTORY #1 Neuropathy Peripheral #2 Foot Drop Right #3 Primary Osteoarthritis Lumbar Spine #4 Edema Leg #5 Hypertensive Chronic Kidney Disease (CKD) Stage 3b Glomerular Filtration Rate (GFR) 30 To 44 ([facility]) #6 Thrombosis Deep Vein Personal History #7 Dyspnea On Exertion #8 Morbid Obesity Body Mass Index 40.0-44.9 Adult ([facility]) #9 Obstructive Sleep Apnea Adult #10 History Of Falling #11 Dysuria #12 Incontinence Urinary PAST SURGICAL HISTORY Past Surgical History: Procedure Laterality Date ??? OTHER CONVERTED SHX (SEE COMMENT) N/A 10/11/2008 >Excision With Layered Closure. ??? OTHER CONVERTED SHX (SEE COMMENT) N/A 10/28/2008 >1. Exploration right peroneal nerve. 2. Decompression at fibular neck. CURRENT MEDICATIONS Current Outpatient Medications on File [...] capsule Take 2 capsules by mouth daily. [place] 3 (strength unknown) ??? esomeprazole (NexIUM) [address] capsule Take 20 mg by mouth as needed. ??? furosemide (LASIX) 20 mg tablet Take 2 tablets by mouth daily as needed. Last dose taken on 03/20/2021 ??? GLUTATHIONE MISC Take 1 capsule by [...] - 1 cap daily ??? vitamin C/biotin ([id number], VIT C-BIOTIN, ORAL) Take 1 capsule by mouth daily. ??? VITAMIN K2 ORAL Take 1 capsule by mouth daily. 120 mcg ??? ZINC ACETATE ORAL Take 50 mg by mouth daily. No current facility-administered medications on file prior to visit. ALLERGIES Allergies Allergen Reactions ??? Amoxicillin-Pot Clavulanate Nausea And Vomiting ??? Ibuprofen Other (see comments) in large quantities- personality change ??? Tazobactam Nausea Only ??? Tetracycline Other (see comments) Yeast infection FAMILY HISTORY No family history on file. SOCIAL HISTORY She is retired. She is helping to care for her who has develop some recent medical problems.She denies use any nicotine products. PHYSICAL EXAMINATION BMI-42.73 General: Well-developed, obese individual who does not appear in any acute distress Mental: Appropriate mood and affect. Grossly oriented with coherent speech and thought processing. Spine: Inspection of the posterior lumbar region did not reveal any redness, swelling or mass. Lumbar ROM is restricted with flexion extension Palpation and percussion of the area was non-tender. Gait: She is in a wheelchair. She is able stand and walk with the assistance of a cane. She is unsteady in her gait secondary to her right foot drop. She walks with a high stepping gait. She is unable to demonstrate plantar dorsiflexion weight-bearing or tandem gait. Strength: With independent testing of the bilateral upper and lower extremity strength is 5/5 excepther right anterior tibialis weakness 0/5 Reflexes: Bilateral upper and lower extremity muscle stretch reflexes are physiologic and symmetric.No Brock sign. Plantar responses are down going. No evidence of ankle clonus Respiratory: Breathing is comfortable and regular. Provocative Maneuvers: Straight leg raise is negative. ROM of the bilateral hips did not reproduce the pain. Maya sign is negative. Palpation over the lateral hips did not reproduce any tenderness. Cardiovascular: She has peripheral edema. She has Abrahan wraps on her bilateral lower extremities Respiratory: Breathing is comfortable and regular. DIAGNOSTICS Imaging:Lumbar spine x-rays, AP, lateral, from March 07 were reviewed with the patient. They show multilevel degenerative disk changes with a slight anterolisthesis of L4 on L5. She has multilevel facet arthropathy. ASSESSMENT / PLAN #1 Chronic low back pain #2 Bilateral lower extremity numbness #3 Peripheral neuropathy #4 Obesity, BMI of 42.7 #5 Multifactorial gait instability PLAN: I discussed with Ms. Yap several treatment options for management of her chronic low back pain.She has had previous treatment through a physical medicine & rehab clinic in the [facility] with Dr. Delarosa. She has been very pleased with the results from her injections there. She, however, is interested in possibly establishing care here for her injections, given it is easier to travel here thanto the [facility]. We have therefore requested her most recent MRI to be sent for review. We will also request a copy of Dr. Delarosa's office notes so we can replicate her previous injections that was helpful. We also discussed the importance of continued weight loss and physical therapy. I have providedher with a prescription to pursue physical therapy closer to home. I reviewed with her signs and symptoms suggestive of progressive neurologic deterioration. I have scheduled a phone followup in 2-3 weeks' time to review the MRI results and Dr. Delarosa's office notes, and we will further discuss our options for therapeutic injections at that time. documented in this encounter Plan of Treatment Scheduled Referrals Name Type Priority Associated Diagnoses Order [facility] office Outpatient Referral Routine Expected : visit (clinic) 04/10/2021 (Approximate), Expires: 03/27/2024 documented as of this encounter Visit Diagnoses Diagnosis Primary Osteoarthritis Lumbar Spine - Pr imary Neuropathy Peripheral Foot Drop Right Pain Low Back Unspecified documented in this encounter Additional Health Concerns Assessment Noted Time PHQ-9 Depression Total Score: 15 03/22/2021 12:16 PM C DT documented as of this encounter
--- OUTSIDE RECORDS SUMMARY | 2022-10-07 10:45 | XMS_ITS | Encounter Summary ---
:1935 Author Organization [facility] Address [address] [place] [address] Care Team Providers Name Role Phone Unavailable Primary Care Provider Unavailable Reason for Visit Reason Comments Results Encounter Details Date Type Department Care Team Description 03/25/2021 Clinical Communication Division of General [place], Results Internal Medicine in Jocelyn Estrada [place], [place] [address] [facility] [address] [place] [phone] Social History Tobacco Use Types Packs/Day Years [...]
--- OUTSIDE RECORDS SUMMARY | 2022-10-07 10:45 | XMS_ITS | Encounter Summary ---
:1935 Author Organization [facility] Address [address] [place] [address] Care Team Providers Name Role Phone Unavailable Primary Care Provider Unavailable Reason for Referral Outpatient (Routine) - Closed Specialty Diagnoses / Procedures Referred By Contact Refer red To Contact Diagnoses Edema Leg Thrombosis Deep Vein Personal History Phunog Portillo M.D. [facility] Procedures Venous Lower Extremity - Hemodynamic Study 200 [place] [phone] Referral ID Status Reason Start Date Expiration Date Visits Requ ested Visits Authorized [id number] Closed 03/22/2021 03/22/2022 1 1 Reason for Visit Outpatient (Routine) - Closed Specialty Diagnoses / Procedures Referred By Contact Refer red To Contact Diagnoses Edema Leg Thrombosis Deep Vein Personal History Phuong Portillo M.D. [facility] Procedures Venous Lower Extremity - Hemodynamic Study [address] [place] [phone] Referral ID Status Reason Start Date Expiration Date Visits Requ ested Visits Authorized [id number] Closed 03/22/2021 03/22/2022 1 1 Encounter Details Date Type Department Care Team Description 03/23/2021 Hospital Encounter Department of Cely Portillo Vascular Medicine in [place] Thrombosis Deep Vein Personal History [place], [place] [address] [facility] [address] [place] [phone] Social History Tobacco Use Types Packs/Day Years [...] 1 to 4 times per year 03/2022 advent services? Do you belong to any clubs [...] by 0 acid-epa 120-180 mg mouth daily. [place] 3 capsule (strength unknown) esomeprazole (NexIUM) Take [...] vitamin C/biotin Take 1 capsule by 0 ([id number], VIT mouth daily. C-BIOTIN, ORAL) VITAMIN K2 [...] D3) 50 mcg daily. (2,000 Unit) tablet furosemide (LASIX) 20 Take 2 tablets by 0 017 03/30/2021 mg tablet mouth daily as needed. Last dose taken on 03/20/2021 oxybutynin Take 1 tablet by mouth 0 [...] Procedure Name Priority Date/Time Associated Comments Diagnosis VENOUS LOWER Routine 03/23/2021 2:21 PM Edema Leg Results for this EXTREMITY - CDT Thrombosis Deep procedure ar e in HEMODYNAMIC STUDY Vein Personal the resul ts History section. documented in this encounter Results Venous Lower Extremity - Hemodynamic Study (03/23/2021 2:21 PM CDT) Anatomical Region Laterality Modality Other Specimen (Source) Anatomical Collection Method Collection Time Re ceived Time Location / / Volume Laterality 03/23/2021 1:26 PM CDT Narrative 03/23/2021 1:26 PM CDT Right: OUTFLOW PLETHYSMOGRAPHY: ? Patent venous outflow. ??PASSIVE REFILLING: ? Moderate veno us insufficiency. ??EXERCISE ??PLETHYSMO GRAPHY: ? Rapid post exercise refilling time. ??CALF PUMP FUNCTION: ? Decreased ejection fraction. ??CONTINUOUS WAVE DOPPLER: ? Signals are patent, spont aneous, phasic and augment normally where evaluated. (Absent spontaneous and phasic Posterior Tibial signals may be a normal variant). ??Deep Venous Incompetence: ?No deep venous incompetence detected. ?? Left: OUTFLOW PLETHYSMOGRAPHY: ? Pat ent venous outflow. ??PASSIVE REFILLING: ? Mild venous insufficiency. ??EXERCISE ??PLETHYSMOGRAPHY: ? Rapid post exercise refilling time. ??CALF PUMP FUNC TION: ? Decreased ejection fraction. ??CONTINUOUS WAVE DOPPLER: ? Signals are patent, spont aneous, phasic and augment normally where evaluated. (Absent spontaneous and phasic Posterior Tibial signals may be a normal variant). ??Deep Venous Incompetence: ?No deep venous incompetence detected. ?? Conclusions: No venous outflow obstructi on. ??Right: ??Moderate venous incompetence, likely superficial in origin. Severely rapid post-exercise venous refilling time. Severely decreased calf pump function. ??Left: ??Mild venous incompetence, likely superficial in origin. Severely rapid po st-exercise venous refilling time. Severely decreased calf pump function. ??No prior studies available for comparison. Procedure Note Dylan Reyes M.D. - 03/23/2021Forma tting of this note might be different from the original. Right: OUTFLOW PLETHYSMOGRAPHY: Patent v enous outflow. PASSIVE REFILLING: Moderate venous insufficiency. EXERCISE PLETHYSMOGRAPHY: Rapid post exercise refilling time. CALF PUMP FUNCTION: Decreased ejection fraction. CONTINUOUS WAVE DOPPLER: Signals are patent, spontaneous , phasic and augment normally where evaluated. (Absent spontaneous and phasic Posterior Tibial signals may be a normal variant). Deep Venous Incompetence: No deep venous incompetence detected. Left: OUTFLOW PLETHYSMOGRAPHY: Patent ve nous outflow. PASSIVE REFILLING: Mild venous insufficiency. EXERCISE PLETHYSMOGRAPHY: Rapid post exercise refilling time. CALF PUMP FUNCTION: Decreased ejection fraction. CONTINUOUS WAVE DOPPLER: Signals are patent, spontaneous , phasic and augment normally where evaluated. (Absent spontaneous and phasic Posterior Tibial signals may be a normal variant). Deep Venous Incompetence: No deep venous incompetence detected. Conclusions: No venous outflow obstructi on. Right: Moderate venous incompetence, likely superficial in origin. Severely rapid post-exercise venous refilling time. Severely decreased calf pump function. Left: Mild venous incompetence, likely superficial in origin. Severely rapid po st-exercise venous refilling time. Severely decreased calf pump function. No prior studies available for comparison. Phuong Portillo M.D. CV VASCULAR PROCEDURES documented in this encounter Visit Diagnoses Diagnosis Edema Leg Thrombosis Deep Vein Personal History documented in this encounter Additional Health Concerns Assessment Noted Time PHQ-9 Depression Total Score: 15 03/22/2021 12:16 PM C DT documented as of this encounter
--- OUTSIDE RECORDS SUMMARY | 2022-10-07 10:45 | XMS_ITS | Encounter Summary ---
:1935 Author Organization [facility] Address [address] [place] [address] Care Team Providers Name Role Phone Unavailable Primary Care Provider Unavailable Reason for Visit Physical Therapy (Routine) - Closed Specialty Diagnoses / Procedures Referred By Contact Refer red To Contact Diagnoses Neuropathy Peripheral Foot Drop Right Amy Esquivel M.B.B.S. [facility] Procedures PT Evaluate and treat [address] [place] [phone] Referral ID Status Reason Start Date Expiration Date Visits Requ ested Visits Authorized [id number] Closed 03/06/2021 03/06/2022 99 99 Encounter Details Date Type Department Care Team Description 03/27/2021 Comprehensive Visit Department of Physical Amy Esquivel M.B.B.S. [address] [place] [phone] Neuropathy Peripheral; Medicine and Dona Patel P.T., D.P.T. [address] [place] [phone] Foot Drop Right Rehabilitation in [place], [place] [address] [place] [phone] Social History Tobacco Use Types Packs/Day Years [...] 02/19/2022 organizations such as baptism groups, unions, [employer] or athletic groups, or school groups? How [...] documented as of this encounter Consult Notes Dona Patel P.T., D.P.T. - 03/27/2021 4:00 PM CDT Patient presents to physical therapy for evaluation and recommendations to address exercise implications in the setting of peripheral neuropathy and chronic low back pain. Patient had been seen and evaluated within PMR physiatry, and it was recommended to continue using her four wheeled walker for all mobility, pursue [facility] assessment for edema management, as well as right ankle foot orthosis fabrication once edema is managed. She also was seen within [facility]ine [facility] and was provided a referral to initiate physical therapy locally for exercise and overall functional mobility training. She has already established a relationship with a physical therapist and enjoys the care received there. As patient will be initiating physical therapy locally, as well as equipment recommendations to optimize mobility and safety have been already made within PMR physiatry, we decided to defer our formal consultation. Reiterated the process in obtaining an ankle foot orthosis, specifically an production machinist fabricating the brace for her, and needing a prescription from Dr. Michael MD once her edema is managed. Located a [facility] in [place], [place] which she will reach out to for bracing needs once other medical needs are addressed. Patient felt confident in this plan of care and had no questions or concerns. She is very happy with the care received at [facility]. Patient not billed for session. documented in this encounter Plan of Treatment Not on filedocumented as of this encounter Visit Diagnoses Diagnosis Neuropathy Peripheral Foot Drop Right documented in this encounter Additional Health Concerns Assessment Noted Time PHQ-9 Depression Total Score: 15 03/22/2021 12:16 PM C DT documented as of this encounter
--- OUTSIDE RECORDS SUMMARY | 2022-10-07 10:45 | XMS_ITS | Encounter Summary ---
:1935 Author Organization [facility] Address [address] [place] [address] Care Team Providers Name Role Phone Unavailable Primary Care Provider Unavailable Reason for Visit Appointment Request (Routine) - Closed Specialty Diagnoses / Procedures Referred By Contact Refer red To Contact General Internal Medicine Referral ID Status Reason Start Date Expiration Date Visits Requ ested Visits Authorized [id number] Closed 03/22/2021 03/22/2022 1 1 Encounter Details Date Type Department Care Team Description 03/23/2021 Admin Visit Division of General Internal Medicine in [place], [place] [address] [place] [phone] Social History Tobacco Use Types Packs/Day [...] or relatives? How often do you attend islam or 1 to 4 times per year 03/2022 zoroastrianism services? Do you belong to any clubs or No 02/19/2022 organizations such as islam groups, unions, fraternal or athletic groups, or [...]
--- OUTSIDE RECORDS SUMMARY | 2022-10-07 10:45 | XMS_ITS | Encounter Summary ---
:1935 Author Organization [facility] Address [address] [place] [address] Care Team Providers Name Role Phone Unavailable Primary Care Provider Unavailable Encounter Details Date Type Department Care Team Description 03/23/2021 Hospital Encounter Department of Cely Portillo; Radiology, Mary Lorenzana Dyspnea On Exertion Building, in [address] [place], [place] [address] [place] [phone] [place], [place] [phone] (Work) [phone] Social History Tobacco Use Types Packs/Day Years [...] or relatives? How often do you attend alevism or 1 to 4 times per year 03/2022 restoration services? Do you belong to any clubs or No 02/19/2022 organizations such as alevism groups, unions, fraternal or athletic groups, or [...] by 0 acid-epa 120-180 mg mouth daily. [place] 3 capsule (strength unknown) esomeprazole (NexIUM) Take [...] vitamin C/biotin Take 1 capsule by 0 ([id number], VIT mouth daily. C-BIOTIN, ORAL) VITAMIN K2 [...] Name Priority Date/Time Associated Comments Diagnosis DX CHEST AP OR PA RAD - Routine 03/23/2021 7:20 Edema Leg Results for this AND LATERAL 2 (most inpatients AM CDT Dyspnea On procedure are in VIEWS and all Exertion the results outpatients) section. documented in this encounter Results DX Chest AP or PA and Lateral 2 Views (03/23/2021 7:20 AM CDT) Anatomical Region Laterality Modality Chest, Thoracic RST LOS, Thoracic ARZ LOS, Thoracic N/A Digital Radiography FLA LOS Specimen (Source) Anatomical Collection Method Collection Time Re ceived Time Location / / Volume Laterality 03/23/2021 7:49 AM CDT Impressions 03/23/2021 7:51 AM CDT No comparison is available. Calcified tortuous aorta. Degenerative changes of the spine. Degenerative alcantara es of the shoulder joints. Narrative 03/23/2021 7:51 AM CDT EXAM: ??DX CHEST AP OR PA AND LATERAL 2 VIEWS Procedure Note Jenny Hernandez M.D. - 03/23/2021Form atting of this note might be different from the original. EXAM: DX CHEST AP OR PA AND LATERAL 2 EWS IMPRESSION: No comparison is available. Calcified to rtuous aorta. Degenerative changes of the spine. Degenerative alcantara es of the shoulder joints. Phuong [facility] documented in this encounter Visit Diagnoses Diagnosis Edema Leg Dyspnea On Exertion documented in this encounter Additional Health Concerns Assessment Noted Time PHQ-9 Depression Total Score: 15 03/22/2021 12:16 PM C DT documented as of this encounter
--- OUTSIDE RECORDS SUMMARY | 2022-10-07 10:45 | XMS_ITS | Encounter Summary ---
:1935 Author Organization [facility] Address [address] [place] [address] Care Team Providers Name Role Phone Unavailable Primary Care Provider Unavailable Encounter Details Date Type Department Care Team Description 03/22/2021 Hospital Encounter Department of Larisa Portillo Chronic Laboratory Medicine Mary Estrada. Kidney Disease (CKD) and Pathology, 200 [facility] Stage 3b Glomerular [facility] in [place], [place] Filtrat ion Rate (GFR) [facility] [phone] 30 To 44 (HCC) [place] [phone] 200 [facility] (Work) [place], [place] [phone] (Fax) [phone] Social History Tobacco Use Types Packs/Day Years [...] or relatives? How often do you attend episcopal or 1 to 4 times per year 03/2022 pentecostal services? Do you belong to any clubs or No 02/19/2022 organizations such as episcopal groups, unions, fraternal or athletic groups, or [...] by 0 acid-epa 120-180 mg mouth daily. [place] 3 capsule (strength unknown) esomeprazole (NexIUM) Take [...] vitamin C/biotin Take 1 capsule by 0 ([id number], VIT mouth daily. C-BIOTIN, ORAL) VITAMIN K2 [...] Diagnosis Comme nts ALBUMIN, RANDOM, U Routine 03/22/2021 5:07 PM Hypertensive Chr onic Results for this CDT Kidney Disease (CKD) procedu re are in Stage 3b Glomerular the resu lts Filtration Rate (GFR) sectio n. 30 To 44 (HCC) DIPSTICK, U Routine 03/22/2021 4:14 PM Results f or this CDT procedure are i n the results section. MICROSCOPIC Routine 03/22/2021 4:14 PM Results f or this AUTOMATED CDT procedure are i n the results section. PH, U Routine 03/22/2021 4:14 PM Results f or this CDT procedure are i n the results section. PROTEIN/CREATININE Routine 03/22/2021 4:14 PM Hypertensive Chr onic Results for this RATIO, RANDOM, URINE CDT Kidney Disease (CKD) procedure are in Stage 3b Glomerular the resu lts Filtration Rate (GFR) sectio n. 30 To 44 (HCC) OSMOLALITY, U Routine 03/22/2021 4:14 PM Results for this CDT procedure are i n the results section. URINALYSIS WITH Routine 03/22/2021 4:14 PM Hypertensive Chroni c Results for this MICROSCOPIC CDT Kidney Disease (CKD) procedu re are in Stage 3b Glomerular the resu lts Filtration Rate (GFR) sectio n. 30 To 44 (HCC) documented in this encounter Results Albumin, Random, Urine (03/22/2021 5:07 PM CDT) athologist Signature Albumin, 16.2 mg/L 03/23/2021 DTL Random, U 9:34 AM CDT Comment: ----ADDITIONAL INFORMATION---- This test has been modified from the man ufacturer's instructions. Its performance characteri stics were determined by [facility] in a manner co nsistent with CLIA requirements. This test has not bee n cleared or approved by the U.S. Food and Drug Admin istration. Creatinine 107 mg/dL 03/22/2021 5:49 PM CDT DTL Albumin/Creatinine Ratio 15 <25 mg/g 03/23/2021 9:34 AM CDT DTL Specimen Anatomical Collection Method Collection Time Receive d Time (Source) Location / / Volume Laterality Urine (Urine, 03/22/2021 5:07 PM 03/23/20 21 7:16 Clean Catch) CDT AM CDT Phuong Portillo M.D. LAB URINE ORDERABLES Performing Organization Address City/State/ZIP Code Phon e Number [facility] - [address] [place], [place] [address] [facility] [place] [address] Laboratories-[facility] [address] Osmolality, Urine (03/22/2021 4:14 PM CDT) athologist Signature Osmolality, U 623 150 - 1150 03/22/2021 DTL mOsm/kg 6:32 PM CDT Specimen Anatomical Collection Method Collection Time Receive d Time (Source) Location / / Volume Laterality Urine 03/22/2021 4:14 PM 1 5:08 CDT PM CDT Phuong Portillo M.D. LAB URINE ORDERABLES Performing Organization Address City/[facility] Phon e Number [facility] - [address] [place] [address] pH, Urine (03/22/2021 4:14 PM CDT) athologist Signature pH, U 6.0 4.5 - 8.0 03/22/2021 6:32 DTL PM CDT Specimen Anatomical Collection Method Collection Time Receive d Time (Source) Location / / Volume Laterality Urine 03/22/2021 4:14 PM 1 5:08 CDT PM CDT Phuong Portillo M.D. LAB URINE ORDERABLES Performing Organization Address City/State/ZIP Code Phon e Number [facility] - [address] (ABNORMAL) Microscopic Automated (03/22/2021 4:14 PM CDT) athologist Signature Microscopy Abnormal 03/22/2021 DTL 6:05 PM CDT WBC 31-40 (A) /hpf 03/22/2021 DTL 6:05 PM CDT Comment: ----REFERENCE VALUE---- 1-3 ??(Males) 1-10 (Females) Casts, Hyaline 1-3 /lpf 03/22/2021 6:05 PM CDT DT L Specimen Anatomical Collection Method Collection Time Receive d Time (Source) Location / / Volume Laterality Urine 03/22/2021 4:14 PM 1 5:08 CDT PM CDT Phuong Portillo M.D. LAB URINE ORDERABLES Performing Organization Address City/[facility]/ZIP Code Phon e Number [address] [address] [place] [address] (ABNORMAL) Dipstick, Urine (03/22/2021 4:14 PM CDT) Patholo gist Method Time Signature Hemoglobin, Negative Negative 03/22/2021 DTL QL 6:05 PM CDT Leukocyte Moderate (A) Negative 03/22/2021 DTL Esterase, U 6:05 PM CDT Nitrite, U Negative Negative 03/22/2021 DTL 6:05 PM CDT Ketones, U Negative Negative 03/22/2021 DTL mg/dL 6:05 PM CDT Glucose, U Negative Negative 03/22/2021 DTL mg/dL 6:05 PM CDT Specimen Anatomical Collection Method Collection Time Receive d Time (Source) Location / / Volume Laterality Urine 03/22/2021 4:14 PM 5:08 CDT PM CDT Phuong Portillo M.D. LAB URINE ORDERABLES Performing Organization Address City/[facility]/ZIP Code Phon e Number [address] [place] [address] Protein/Creatinine Ratio, Random, Urine (03/22/2021 4:14 PM CDT) P athologist Signature Protein, Total, 9 mg/dL 03/22/2021 DTL Random, U 5:48 PM CDT Creatinine, 106 16 - 326 03/22/2021 DTL Random, U mg/dL 5:48 PM CDT Protein/Creatin 0.08 <0.18 mg/mg 03/22/2021 DTL ine Ratio 5:48 PM CDT Specimen Anatomical Collection Method Collection Time Receive d Time (Source) Location / / Volume Laterality Urine (Urine, 03/22/2021 4:14 PM 03/22/20 21 5:08 Midstream) CDT PM CDT Phuong Portillo M.D. LAB URINE ORDERABLES Performing Organization Address City/[facility]/ZIP Code Phon e Number [facility] - [address] [place] [address] [place] [address] [facility] [place] [address] Laboratories-[address] Urinalysis with Microscopic: Urine, Midstream (03/22/2021 4:14 PM CDT) Analysis Performed At [facility] Time Signature Source Midstream 03/22/2021 DTL 5:08 PM CDT Color, U Yellow 03/22/2021 DTL 5:08 PM CDT Clarity, U Clear 03/22/2021 DTL 5:08 PM CDT Protein, U 9 <26 mg/dL 03/22/2021 DTL 5:48 PM CDT Protein/[place] 0.14 <0.42 03/22/2021 DTL lity ratio 6:32 PM CDT Predicted 24 115 mg/24 h 03/22/2021 DTL Hr Protein 6:32 PM CDT Predicted 29-467 mg/24 h 03/22/2021 DTL Range 6:32 PM CDT Specimen Anatomical Collection Method Collection Time Receive d Time (Source) Location / / Volume Laterality Urine (Urine, 03/22/2021 4:14 PM 03/22/20 21 5:08 Midstream) CDT PM CDT Phuong Portillo M.D. LAB URINE ORDERABLES Performing Organization Address City/State/ZIP Code Phon e Number [facility] - [address] [place] [address] [place] [address] [place] [address] documented in this encounter Visit Diagnoses Diagnosis Hypertensive Chronic Kidney Disease (CKD ) Stage 3b Glomerular Filtration Rate (GFR) 30 To 44 (HCC) documented in this encounter Additional Health Concerns Assessment Noted Time PHQ-9 Depression Total Score: 15 03/22/2021 12:16 PM C DT documented as of this encounter
--- OUTSIDE RECORDS SUMMARY | 2022-10-07 10:45 | XMS_ITS | Encounter Summary ---
:1935 Author Organization [facility] Address [address] [place] [address] Care Team Providers Name Role Phone Unavailable Primary Care Provider Unavailable Reason for Visit Reason Comments Results Encounter Details Date Type Department Care Team Description 03/22/2021 Clinical Communication Division of General Christians, Results Internal Medicine in Jocelyn Estrada [place], [place] [address] [facility] [address] [place] [id number] [phone] Social History Tobacco Use Types Packs/Day Years [...] or relatives? How often do you attend congregation or 1 to 4 times per year 03/2022 moravian services? Do you belong to any clubs or No 02/19/2022 organizations such as congregation groups, unions, fraternal or athletic groups, or [...] Telephone Encounter - Oneyda Cadet R.N. - 03/27/2021 11:22 AM CDT SUBJECTIVE CHIEF COMPLAINT / REASON FOR CALL Results Information Discussed I contacted patient and informed her Dr. Portillo has placed orders for urinalysis, urine culture,uroflow studies, and for Urology incontinence clinic. She would like to wait for repeat urinalysis and urine culture before prescribing antibiotics to ensure this is necessary. Patient was encouraged to utilize a high table to place her CPAP on to enable her to wear her CPAP with her elevated bed. Patient verbalizes understanding. PLAN Disposition/Recommendation: self-care is appropriate at this time, patient encouraged to call back with questions Information/Education: patient/caller able to teach back Caller agreeable to plan of care: yes The following references were used: provider Dr. Matthew Telephone Encounter - Oneyda Cadet R.N. - 03/23/2021 4:38 PM CDT SUBJECTIVE CHIEF COMPLAINT / REASON FOR CALL Results PLAN The following information was provided: Patient was contacted to clarify if she is having UTI symptoms. Patient states she has burning and pain with urination. No blood noted. States about 2 months ago she had similar symptoms and was put humera 3 day course of a sulfa medication (unsure of the medication). She went back 1 1/2 months later and was given a 10 course of the same medication which she just completed 2 weeks ago. She feels she still has the infection and would like a prescription sent to her local pharmacy in [place]. Patient was advised to stop taking her magnesium supplement as her magnesium level is high. Patient states she will do this. Patient was informed that her results are concerning for dehydration elevated BUN/Cr ration and elevated uric acid). Dr. Portillo would like you to stop the Lasix and to drink more water. Patient states she has been drinking more water because she feels thirsty. She did take a Lasix this morning because her legs were swollen but she will stop it and monitor her swelling. Patient was informed her overnight oximetry is abnormal suggestive of sleep apnea. She was advised to wear her CPAP nightly. Patient reports she is not sure if the readings were accurate. The probe wasplaced on her finger and the initial reading was accurate. She took it off to go to the bathroom andthinks she put it on backwards being she was groggy. She was up and down all night and thinks she only got a few hours of accurate data. She added this information to the summary when she completed theoximetry. Reports she is not able to wear her CPAP because she has an adjustable bed. I explained we will try and move her sleep consult up which is scheduled for May. I advised her to go as a bingo checker this weekwhile she is at [place] and bingo checker system explained. I also advised she bring her CPAP to her sleep appointment. Patient appreciative of the phone call and satisfied with plan of care. Dr. Portillo will be updated. Information/Education: patient/caller able to teach back The following references were used: provider Dr. Portillo and nursing clinical judgement documented in this encounter Plan of Treatment Not on filedocumented as of this encounter Visit Diagnoses Not on filedocumented in this encounter Additional Health Concerns Infection Onset Date Last Indicated Resolved Time COVID19 Pending 03/27/2021 03/27/2021 03/27/2021 11:30 AM CDT Assessment Noted Time PHQ-9 Depression Total Score: 15 03/22/2021 12:16 PM C DT documented as of this encounter
--- OUTSIDE RECORDS SUMMARY | 2022-10-07 10:45 | XMS_ITS | Encounter Summary ---
:1935 Author Organization [facility] Address [address] [place] [address] Care Team Providers Name Role Phone Unavailable Primary Care Provider Unavailable Encounter Details Date Type Department Care Team Description 03/27/2021 Hospital Encounter Department of Christians, Dysuria; Laboratory Medicine Mary Estrada Incontinence Urinary and Pathology, [address] [place] [address] in [facility] [phone] [place] [phone] [place] [address] (Work) [place], [place] [phone] (Fax) [phone] Social History Tobacco Use Types Packs/Day Years [...] by 0 acid-epa 120-180 mg mouth daily. [place] 3 capsule (strength unknown) esomeprazole (NexIUM) Take [...] vitamin C/biotin Take 1 capsule by 0 ([id number], VIT mouth daily. C-BIOTIN, ORAL) VITAMIN K2 [...] Date/Time Associated Comments Diagnosis DIPSTICK, U Routine 03/27/2021 10:23 Results for this AM CDT procedure are i n the results section. MICROSCOPIC AUTOMATED Routine 03/27/2021 10:23 Re sults for this AM CDT procedure are i n the results section. BACTERIAL CULTURE, Routine 03/27/2021 10:23 Dysuria Results for this AEROBIC + SUSC, URINE AM CDT Incontinence proced ure are in Urinary the results section. PH, U Routine 03/27/2021 10:23 Results for this AM CDT procedure are i n the results section. OSMOLALITY, U Routine 03/27/2021 10:23 Results fo r this AM CDT procedure are i n the results section. URINALYSIS WITH Routine 03/27/2021 10:23 Dysuria Results for this MICROSCOPIC AM CDT Incontinence procedure are i n Urinary the results section. documented in this encounter Results Osmolality, Urine (03/27/2021 10:23 AM CDT) athologist Signature Osmolality, U 526 150 - 1150 03/27/2021 DTL mOsm/kg 12:09 PM CDT Specimen Anatomical Collection Method Collection Time Receive d Time (Source) Location / / Volume Laterality Urine 03/27/2021 10:23 03/27/2021 AM CDT 10:46 AM CDT Phuong Portillo M.D. LAB URINE ORDERABLES Performing Organization Address City/[facility]/ZIP [facility] Phon e Number [facility] - [address] [place] [address] [facility] pH, Urine (03/27/2021 10:23 AM CDT) athologist Signature pH, U 6.6 4.5 - 8.0 03/27/2021 12:09 DTL PM CDT Specimen Anatomical Collection Method Collection Time Receive d Time (Source) Location / / Volume Laterality Urine 03/27/2021 10:23 03/27/2021 AM CDT 10:46 AM CDT Phuong Portillo M.D. LAB URINE ORDERABLES Performing Organization Address City/[facility] Phon e Number [facility] - [address] Microscopic Automated (03/27/2021 10:23 AM CDT) athologist Signature Microscopy Normal 03/27/2021 DTL 11:36 AM CDT WBC 4-10 /hpf 03/27/2021 DTL 11:36 AM CDT Comment: ----REFERENCE VALUE---- 1-3 ??(Males) 1-10 (Females) Specimen Anatomical Collection Method Collection Time Receive d Time (Source) Location / / Volume Laterality Urine 03/27/2021 10:23 03/27/2021 AM CDT 10:46 AM CDT Phuong Portillo M.D. LAB URINE ORDERABLES Performing Organization Address [facility] Phon e Number [facility] - [address] [place], [place] [address] [place] [address] Laboratories-[facility] 200 [facility] (ABNORMAL) Dipstick, Urine (03/27/2021 10:23 AM CDT) Patholo [facility] Method Time Signature Hemoglobin, Negative Negative 03/27/2021 DTL QL 11:36 AM CDT Leukocyte Small (A) Negative 03/27/2021 DTL Esterase, U 11:36 AM CDT Nitrite, U Negative Negative 03/27/2021 DTL 11:36 AM CDT Ketones, U Negative Negative 03/27/2021 DTL mg/dL 11:36 AM CDT Glucose, U Negative Negative 03/27/2021 DTL mg/dL 11:36 AM CDT Specimen Anatomical Collection Method Collection Time Receive d Time (Source) Location / / Volume Laterality Urine 03/27/2021 10:23 03/27/2021 AM CDT 10:46 AM CDT Phuong Portillo M.D. LAB URINE ORDERABLES Performing Organization Address City/[facility] Phon e Number [facility] - [address] [place] [address] [place] [address] Laboratories-[facility] 200 [facility] (ABNORMAL) Bacterial Culture, Aerobic + Susc, Urine (03/27/2021 10:23 AM CDT) PathVidly Method Time Signature Urine Culture PROTEUS MIRABILIS [...] Portillo M.D. LAB MICROBIOLOGY - GENERAL O RDERABLES Performing Organization Address City/[facility] Phon e Number [facility] - [address] [place], [place] [address] [place] [address] Laboratories-[address] Urinalysis with Microscopic: Urine, Midstream (03/27/2021 10:23 AM CDT) [facility] Method Time Signature Source Urine, Urine, [...] M.D. LAB URINE ORDERABLES Performing Organization Address City/[facility] Phon e Number [facility] - [address] [place], [place] [address] [place] [address] documented in this encounter Visit Diagnoses Diagnosis Dysuria Incontinence Urinary documented in this encounter Additional Health Concerns Infection Onset Date Last Indicated Resolved Time COVID19 Pending 03/27/2021 03/27/2021 03/27/2021 11:30 AM CDT Assessment Noted Time PHQ-9 Depression Total Score: 15 03/22/2021 12:16 PM C DT documented as of this encounter
--- OUTSIDE RECORDS SUMMARY | 2022-10-07 10:45 | XMS_ITS | Encounter Summary ---
:1935 Author Organization [facility] Address [address] [place] [address] Care Team Providers Name Role Phone Unavailable Primary Care Provider Unavailable Reason for Visit Physical Therapy (Routine) - Closed Specialty Diagnoses / Procedures Referred By Contact Refer red To Contact Diagnoses Neuropathy Peripheral Foot Drop Right Edema Leg Juanito Rodriguez M.D. [facility] Procedures PT or OT eval and treat (first available) [address] [place], [place] [address] Referral ID Status Reason Start Date Expiration Date Visits Requ ested Visits Authorized [id number] Closed 03/13/2021 03/13/2022 99 99 Encounter Details Date Type Department Care Team Description 03/27/2021 Comprehensive Visit Department of Physical Juanito Cooper M.D. [address] [place] [phone] Edema Leg; Medicine and Mirian Plaza P.T., D.P.T., ABPTS[facility] [address] [place] [phone] Neuropathy Peripheral; Rehabilitation in Foot Drop Right [place], [place] [address] [place] [phone] Social History Tobacco Use Types Packs/Day Years [...] this encounter Consult Notes Mirian Plaza, P.T., D.P.T. - 03/27/2021 9:00 AM CDT Physical Therapy Lymphedema Outpatient Evaluation and Treatment By co-signing this note, the provider certifies the therapy being provided to this patient is reasonable and necessary for the diagnosis or treatment of this patient. Patient's Name: Vielka Yap Referring Provider: Juanito Rodriguez M.D. Rehab Diagnosis: 1. Edema Leg 2. Neuropathy Peripheral 3. Foot Drop Right Reason for Referral: Physical therapy evaluation and [...] Count: 1 SUBJECTIVE Vielka Yap is a 85 y.o. female who presents to therapy for evaluation and treatment forbilateral lower extremity edema. Her symptoms consist of swelling predominantly distal to the knee, limiting mobility. Activity and Prior Treatment Exercise/Activity Level: Patient states that she is fairly inactive, no formal exercise program currently. Uses a 4 wheeled walker for ambulation in the home. She does have a front wheeled walker for community distances. She uses her single-point cane for short distances. Current Home Program: No current compression management. She does not wear shoes or socks during theday. Nothing at night. Previous Treatment: Has attempted compression garments in the past though unsuccessful due to intolerance and difficulty donning Patient Comments: Patient states that she does have 30-40 mmHg knee-high compression socks, to different travel compression socks as well. I was able to evaluate these. assist patient in ADLs, states she gets the pedicure 1 time a month for foot hygiene. Her puts on her shoes and socksthe patient is not able to do this independently. Patient/Caregiver Goals: Decreased lower extremity edema in order to fit into a brace PT Next Certification Date: 06/25/21 PERTINENT MEDICAL / SURGICAL HISTORY: Patient Active Problem List Diagnosis ??? Edema Leg ??? Hypertensive Chronic Kidney Disease (CKD) Stage 3b Glomerular Filtration Rate (GFR) 30 To 44 ([facility]) ??? Thrombosis Deep Vein Personal History ??? Dyspnea On Exertion ??? Morbid Obesity Body Mass Index 40.0-44.9 Adult ([facility]) ??? Obstructive Sleep Apnea Adult ??? History Of Falling ??? Dysuria ??? Incontinence Urinary Past Surgical History: Procedure Laterality Date ??? OTHER CONVERTED SHX (SEE COMMENT) N/A 10/11/2008 >Excision With Layered Closure. ??? OTHER CONVERTED SHX (SEE COMMENT) N/A 10/28/2008 >1. Exploration right peroneal nerve. 2. Decompression at fibular neck. OBJECTIVE PHYSICAL EXAM Fall Risk Screening: Fall in the last 12 months: Yes (4) Fall Risk Comments: Patient states that majority of her falls were due to tripping on her right foot Lymphedema/Edema Eval: Range of motion: Right dorsiflexion limited secondary to footdrop Strength: Generally deconditioned. Right dorsiflexion limited secondary to footdrop-unable to complete full range of motion antigravity. Sensation: Patient experiences neuropathy, this is why she does not wear socks or shoes during the day. Significant numbness in bilateral feet. Occasional tingling. Anterior right thigh burning/pain that wakes patient at night. Edema: +2 Pitting Edema dorsum of bilateral feet +1 pitting edema superior to malleoli but distal to knee bilaterally Edema is easily mobile. There is some thickening of the skin. No opening of the skin, skin intact. Observations: Perimalleolar swelling Bilaterally, right more the left Functional Mobility: Shows by wheelchair to department. Patient verbalizes she is able to ambulate short distances with single-point cane though remained in her wheelchair at all times during evaluation. Right Lower Extremity 03/27/2021 10 cm 24.7 20 cm 27.7 30 cm 37.6 40 cm 42.1 50 cm 41.7 60 cm 70 cm 80 cm 90 cm Lymph Volume (L) 4063.7 ml Left Lower Extremity 03/27/2021 10 cm 23.2 20 cm 26.8 30 cm 33.5 40 cm 38.6 50 cm 40.7 60 cm 70 cm 80 cm 90 cm Lymph Volume (L) 3511.75 ml TREATMENT Therapeutic activity: -reviewed the differences between compression bandaging and compression garments: The role of compression bandaging is to reduce lower extremity in the role of compression garments as to the maintain limb size -reviewed that a 30-40 mm Hg compression garment will not reduce the lower extremity -review differences between compression garments, 20-30 versus 30 40 -reviewed importance of decreasing lower extremity edema to fit into AFO and decrease risk of infection - was present for Education and demonstration of short stretch multilayered compression bandaging Commission Associate completed multilayer compression bandaging in the following manner: Skin liner using Tubigrip Artiflex 8 cm short stretch bandage figure-eight 10 cm short stretch bandage spiral - did not want to practice completing this during session today, he observed technical publications writer completing bandaging to both lower extremities. I was giving verbal cues throughout the entire demonstration. Patient and were asking appropriate questions during this time. I did offer them to videotapethe bandaging, patient and states that they are not tech abi and preferred written instructions -patient will continue compression bandaging 23 hours a day as tolerated. I did instruct them to contact the department should they experience difficulty completing this. I am confident that they will be able to do this independently, but if for some reason they are not we will see them daily for phase 1 reduction. Home Exercise Program/Education: Instructions printed off and given to patient and : Compression bandagin. Put on the skin liner 2. Take the white foam, start at toes and pad the leg up to the knee. Special focus at the ankle. This is not compression 3. Take the small brown bandage, start at base of the toes do 3 circles 4. Overlapping 50% travel toward the ankle, keep ankle bent up 5. Once at the ankle, create a ???sandal strap?? at the back of the heel 6. Cross back over the front of the ankle, there should be a X 7. Cover the heel so no white is showing 8. Once the entire heel is covered, continue the X pattern up the leg 9. Grab the larger brown bandage, start where the small bandage ended 10. Spiral towards the knee (at an angle) 11. Once at the knee, leave 2 finger widths from the crease of the knee, and do 2 circles around 12. Spiral the extra bandage back down toward the ankle, overlapping 50% Instructions: -leave on up to 23 hours a day as tolerated -if the bandages fall down, reapply -you can wash the skin liner and brown bandage -when the white padding is dirty throw it away -if there is pain or increased shortness of breath, take the bandages off -check the skin every time you take the bandages off, if there is any area of redness or skin irritation, be sure to apply extra white foam in this area Contact monitoring: PPE used during therapy: Therapist was wearing the following PPE throughout entire session: surgicalmask Patient was wearing a mask during therapy session: yes Family member/caregiver present was wearing a mask: yes Assessment Vielka is a very pleasant 85-year-old woman presenting with right greater than left lower extremity edema distal to the knee. Instructed patient and in multilayer short stretch compression bandaging, provided them written instructions. They will complete this up to 23 hours a day for the next 4 days. Will follow-up Mar 30 2021 prior to returning home, anticipate compression garment fitting at this appointment if reduction is adequate. To contact department sooner if needed. Rehab Potential: Ms. Yap has good potential to achieve established physical therapy therapy goals within the time frame outlined below, provided she actively participates in her physical therapy therapy treatment plan and home program. Complicating Factors: Personal Factors: Balance impairment, History of falls, Sedentary lifestyle Functional Goals and Timeframes: Lymphedema OT/PT Goals Goal #1: Patient will be independent with this effective lymphedema management plan. Goal #1 Date: 06/25/21 The severity of Ms. Yap's functional limitation will be re-assessed within the next 5 visits. Plan Ms. Yap was educated regarding [...] Treatment Plan: Start of Plan of Care: 03/27/2021 Number of Visits: up to 5 visits Frequency: 1 time per week Plan: Plan of care initiated Plan Comments: To complete compression bandaging bilateral distal to knee 23 hours a day. Will follow-up later this week anticipate obtaining compression stockings pending reduction. Recall earlier than scheduled appointment if there is difficulty. Treatment interventions may include: Therapeutic exercise, Therapeutic functional activity, Neuromuscular re-education, Gait training Daytime Compression Program: Daytime compression bandaging Nighttime Compression Program: Nighttime compression bandaging Number of Examination Elements (PT): 3 Clinical Presentation (PT): Evolving Clinical Decision Making (PT): Moderate PT: Time Spent with Patient PT Evaluation (min): 35 min Therapeutic Activity (min): 24 min Time Calculation Total Timed Units (min): 24 min Total Treatment Time (min): 59 min Mirian Plaza P.T., D.P.T. documented in this encounter Plan of Treatment Not on filedocumented as of this encounter Visit Diagnoses Diagnosis Edema Leg Neuropathy Peripheral Foot Drop Right documented in this encounter Additional Health Concerns Infection Onset Date Last Indicated Resolved Time COVID19 Pending 03/27/2021 03/27/2021 03/27/2021 11:30 AM CDT Assessment Noted Time PHQ-9 Depression Total Score: 15 03/22/2021 12:16 PM C DT documented as of this encounter
--- OUTSIDE RECORDS SUMMARY | 2022-10-07 10:45 | XMS_ITS | Encounter Summary ---
:1935 Author Organization [facility] Address [address] [place] [address] Care Team Providers Name Role Phone Unavailable Primary Care Provider Unavailable Reason for Referral Outpatient (Routine) - Closed Specialty Diagnoses / Procedures Referred By Contact Refer red To Contact Diagnoses Edema Leg Dyspnea On Exertion Phuong Portillo [facility] Procedures Echo Transthoracic (TTE) M.DSharon [address] [place], [place] [phone] Referral ID Status Reason Start Date Expiration Date Visits Requ ested Visits Authorized [id number] Closed 03/22/2021 03/22/2022 1 1 Reason for Visit Outpatient (Routine) - Closed Specialty Diagnoses / Procedures Referred By Contact Refer red To Contact Diagnoses Edema Leg Dyspnea On Exertion Phuong Portillo [facility] Procedures Echo Transthoracic (TTE) M.DSharon [address] [place] [phone] Referral ID Status Reason Start Date Expiration Date Visits Requ ested Visits Authorized [id number] Closed 03/22/2021 03/22/2022 1 1 Encounter Details Date Type Department Care Team Description 03/28/2021 Hospital Encounter Department of Cely Portillo g; Cardiovascular Diseases Phuong Corley M.D. 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 Do you belong to any clubs [...] by 0 acid-epa 120-180 mg mouth daily. Empire 3 capsule (strength unknown) esomeprazole (NexIUM) Take [...] vitamin C/biotin Take 1 capsule by 0 ([id number], VIT mouth daily. C-BIOTIN, ORAL) VITAMIN K2 [...] Name Priority Date/Time Associated Diagnosis Comme nts (TTE) 2D ECHO Routine 03/28/2021 8:52 AM Edema Leg Results for this DOPPLER COLOR CDT Dyspnea On Exertion procedu re are in the results section. documented in this encounter Results (TTE) 2D ECHO DOPPLER COLOR (03/28/2021 8:52 AM CDT) [facility] gist Method Time Signature Ejection Fraction 68 MC CV EIMS Mid-Ascending Aorta 33 MC CV EIMS LV Mass Index 82 MC CV EIMS LV End-Diastolic 50 MC CV EIMS Diameter LV End-Systolic 30 MC CV EIMS Diameter MV E Velocity 0.6 MC CV EIMS MV A Velocity 0.8 MC CV EIMS MV E/A 0.75 MC CV EIMS MV e' Velocity 0.06 MC CV EIMS Medial MV e' Velocity 0.08 MC CV EIMS Lateral MV E/e' Medial 10.0 MC CV EIMS MV E/e' Lateral 7.5 MC CV EIMS Left ventricular 37 MC CV EIMS stroke volume index Cardiac Output 5.39 MC CV EIMS Cardiac Index 2.43 MC CV EIMS LV Interventricular 10 MC CV EIMS Septal Wall Thickness LV Posterior Wall 10 MC CV EIMS Thickness LV Relative Wall 40 MC CV EIMS Thickness Tricuspid Annular S? 0.14 MC CV EIMS TR Vmax 2.30 MC CV EIMS RA Pressure 5 MC CV EIMS RV Systolic Pressure 26 MC CV EIM S Aortic valve area 2.67 MC CV EIMS Aortic Valve 0.77 MC CV EIMS Dimensionless Index LA Volume Index 26 MC CV EIMS Anatomical Region Laterality Modality Echocardiography Specimen (Source) Anatomical Collection Method Collection Time Re ceived Time Location / / Volume Laterality 03/28/2021 7:31 AM CDT Impressions 03/28/2021 9:28 AM CDT LEFT VENTRICLE: ??Normal left ventricular chamber size. ??Sigmoid ventricular septum with basal septal prominence: 15 mm ??No dynamic le ft ventricular outflow tract obstruction. ??Calculated 2-D linear left ventricular ejection fra ction 68 %. ??No regional wall motion abnormalities. Grade 1/3 left ventricular diastolic dys function, consistent with low to normal left ventricular filling pressure. ??RIGHT VE NTRICLE: ??Normal right ventricular chamber size. ??Normal right ventricular systolic function. ??E stimated right ventricular systolic pressure 26 mmHg assuming right atrial pressure of 5 mmHg . ??ATRIA: ??Normal left atrial size. ??Left atrial volume index 26 ml/m^2. ??Normal right atrial s ize. ??CARDIAC VALVES: ??Trileaflet aortic valve. Thickened aortic valve. ??No aortic valv e regurgitation. ??Normal mitral valve. ??Trivial mitral valve regurgitation. ??Normal pulmonary valve. ??Normal pulmonary valve systolic velocities. ??No pulmonary valve regurgitation. ??Normal tricuspid valve. ??Trivial tricuspid valve regurgitation. OTHER ECHO FINDINGS: ??Normal inferior vena cava size with normal inspiratory collapse (>50%). Normal mid ascending aorta diameter (tristan meter 33 mm at mid level). ??No abdominal aortic aneurysm . ??Normal abdominal aorta Dopp ler flow pattern. ??No atrial level shunt by color flow imaging. ??No intracardiac mass or throm bus, but the left atrial appendage cannot be visualized adequately with transthoracic echo to ex clude thrombus in this location. ??No pericardial effusion. ??Prominent anterior epicardia l fat layer. For the complete report, see the [employer] Documents. Narrative 03/28/2021 9:28 AM CDT For the complete report, see the [employer] Documents. Final Impressions 1. Normal left ventricular chamber size, no regional wall motion abnormalities, calculated 2-D linear ejection fraction 68 %. 2. Sigmoid ventricular septum with basal septal prominence: 15 mm. ??No dynamic left ventricular outflow tract obstruction. 3. Grade 1/3 left ventricular diastolic dysfunction, consistent with low to normal left ventricular filling pressure. 4. Normal right ventricular chamber size , normal systolic function, estimated right ventricular systolic pressure 26 mmHg assuming right atrial pressure of 5 mmHg. 5. Normal inferior vena cava size with n ormal inspiratory collapse (>50%). 6. No significant valvular heart disease . 7. No pericardial effusion. Procedure Note Jose Ramon Proctor M.D. - 03/28/2021Format ting of this note might be different from the original. For the complete report, see the [employer] Documents. Final Impressions 1. Normal left ventricular chamber size, no regional wall motion abnormalities, calculated 2-D linear ejection fraction 68 %. 2. Sigmoid ventricular septum with basal septal prominence: 15 mm. No dynamic left ventricular outflow tract obstruction. 3. Grade 1/3 left ventricular diastolic dysfunction, consistent with low to normal left ventricular filling pressure. 4. Normal right ventricular chamber size , normal systolic function, estimated right ventricular systolic pressure 26 mmHg assuming right atrial pressure of 5 mmHg. 5. Normal inferior vena cava size with n ormal inspiratory collapse (>50%). 6. No significant valvular heart disease . 7. No pericardial effusion. Findings LEFT VENTRICLE: Normal left ventricular chamber size. Sigmoid ventricular septum with basal septal prominence: 15 mm No dynamic left ventricular outflow tract obstruction. Calculated 2-D linear left ventricular ejection fra ction 68 %. No regional wall motion abnormalities. Grade 1/3 left ventricular diastolic dys function, consistent with low to normal left ventricular filling pressure. RIGHT VENT RICLE: Normal right ventricular chamber size. Normal right ventricular systolic function. Est imated right ventricular systolic pressure 26 mmHg assuming right atrial pressure of 5 mmHg . ATRIA: Normal left atrial size. Left atrial volume index 26 ml/m^2. Normal right atrial siz e. CARDIAC VALVES: Trileaflet aortic valve. Thickened aortic valve. No aortic valve regurgitation. Normal mitral valve. Trivial mitral valve regurgitation. Normal pulmonary va lve. Normal pulmonary valve systolic velocities. No pulmonary valve regurgitation. Normal tr icuspid valve. Trivial tricuspid valve regurgitation. OTHER ECHO FINDINGS: Normal inferior ve na cava size with normal inspiratory collapse (>50%). Normal mid ascending aorta diameter (tristan meter 33 mm at mid level). No abdominal aortic aneurysm . Normal abdominal aorta Dopple r flow pattern. No atrial level shunt by color flow imaging. No intracardiac mass or thrombu s, but the left atrial appendage cannot be visualized adequately with transthoracic echo to ex clude thrombus in this location. No pericardial effusion. Prominent anterior epicardial fat layer. For the complete report, see the [employer] Documents. Phuong Portillo M.D. CV ECHO PROCEDURES documented in this encounter Visit Diagnoses Diagnosis Edema Leg Dyspnea On Exertion documented in this encounter Additional Health Concerns Assessment Noted Time PHQ-9 Depression Total Score: 15 03/22/2021 12:16 PM C DT documented as of this encounter
--- OUTSIDE RECORDS SUMMARY | 2022-10-07 10:45 | XMS_ITS | Encounter Summary ---
:1935 Author Organization [facility] Address [address] [place] [address] Care Team Providers Name Role Phone Unavailable Primary Care Provider Unavailable Encounter Details Date Type Department Care Team Description 03/22/2021 Hospital Encounter Department of Christians, Cely Romero; Laboratory Medicine Mary Estrada Dyspnea On Exertion; and Pathology, [address] [place] [address] Hypertensive Chronic Kidney Disease (CKD ) Stage 3b Glomerular Filtration Rate (GFR) 30 To 44 ([facility]) [facility] in [facility] [address] [place] [phone] [place] [address] (Work) [place], [place] [phone] [phone] (Fax) [phone] Social History Tobacco Use Types Packs/Day Years [...] by 0 acid-epa 120-180 mg mouth daily. Longs 3 capsule (strength unknown) esomeprazole (NexIUM) Take [...] vitamin C/biotin Take 1 capsule by 0 ([id number], VIT mouth daily. C-BIOTIN, ORAL) VITAMIN K2 [...] 09/17/2021 daily documented as of this encounter Miscellaneous Notes Result Encounter Note - Phuong Portillo M.D. - 03/22/2021 10:16 PM CDT Nursing to clarify if patient is having any dysuria or symptoms of a UTI. Nursing to advise her to stop taking magnesium supplementation as her magnesium level is high. Her results are again concerning for dehydration (elevated BUN/Cr ratio and elevated uric acid). Nursing to again advise her to stop furosemide and to drink more water. documented in this encounter Plan of Treatment Not on filedocumented as of this encounter Procedures Procedure Name Priority Date/Time Associated Diagnosis Comme nts RENAL FUNCTION PANEL, Routine 03/22/2021 4:02 Hypertensive Chr onic Results for this S PM CDT Kidney Disease (CKD) procedu re are in Stage 3b Glomerular the resu lts Filtration Rate section. (GFR) 30 To 44 (HCC) CYSTATIN C WITH EGFR Routine 03/22/2021 4:02 Hypertensive Online Community Manager barb Results for this PM CDT Kidney Disease (CKD) procedu re are in Stage 3b Glomerular the resu lts Filtration Rate section. (GFR) 30 To 44 (HCC) NT-PRO B-TYPE Routine 03/22/2021 4:02 Edema Leg Results for this NATRIURETIC PEPTIDE PM CDT Dyspnea On Exertion p rocedure are in (BNP), S the results section. 25-HYDROXYVITAMIN D2 Routine 03/22/2021 4:02 Hypertensive Online Community Manager barb Results for this AND D3, S PM CDT Kidney Disease (CKD) procedu re are in Stage 3b Glomerular the resu lts Filtration Rate section. (GFR) 30 To 44 (HCC) URIC ACID, S/P Routine 03/22/2021 4:02 Hypertensive Chronic Re sults for this PM CDT Kidney Disease (CKD) procedu re are in Stage 3b Glomerular the resu lts Filtration Rate section. (GFR) 30 To 44 (HCC) PARATHYROID HORMONE Routine 03/22/2021 4:02 Hypertensive Chron ic Results for this (PTH), S PM CDT Kidney Disease (CKD) procedu re are in Stage 3b Glomerular the resu lts Filtration Rate section. (GFR) 30 To 44 (HCC) MAGNESIUM, S Routine 03/22/2021 4:02 Hypertensive Chronic Resu lts for this PM CDT Kidney Disease (CKD) procedu re are in Stage 3b Glomerular the resu lts Filtration Rate section. (GFR) 30 To 44 (HCC) COMPREHENSIVE Routine 03/22/2021 4:02 Hypertensive Chronic Res ults for this METABOLIC PANEL, S/P PM CDT Kidney Disease (CKD) procedure are in Stage 3b Glomerular the resu lts Filtration Rate section. (GFR) 30 To 44 (HCC) documented in this encounter Results (ABNORMAL) Magnesium (03/22/2021 4:02 PM CDT) athologist Signature Magnesium, S 2.4 (H) 1.7 - 2.3 03/22/2021 DTL mg/dL 5:08 PM CDT Specimen Anatomical Collection Method Collection Time Receive d Time (Source) Location / / Volume Laterality Blood (Blood, 03/22/2021 4:02 PM 03/22/20 4:26 Venous) CDT PM CDT Phuong Portillo M.D. LAB BLOOD ADD-ON Performing Organization Address City/[facility] Phon e Number [facility] - [address] [place], [place] [address] [facility] [address] Laboratories-[address] (ABNORMAL) Parathyroid Hormone (PTH) (03/22/2021 4:02 PM CDT) athologist [facility] Parathyroid 75 (H) 15 - 65 03/22/2021 DTL Hormone (PTH), S pg/mL 5:08 PM CDT Specimen Anatomical Collection Method Collection Time Receive d Time (Source) Location / / Volume Laterality Blood (Blood, 03/22/2021 4:02 PM 03/22/20 4:26 Venous) CDT PM CDT Phuong Portillo M.D. LAB BLOOD ADD-ON Performing Organization Address City/[facility] Phon e Number [facility] - [address] [place], [place] [address] [facility] [address] Laboratories-[address] (ABNORMAL) Cystatin C with Estimated GFR, S (03/22/2021 4:02 PM CDT) athologist Signature eGFR by 26 >60 03/22/2021 DTL Cystatin C mL/min/BSA 8:29 PM CDT Comment: ----ADDITIONAL INFORMATION---- Cystatin C-based eGFR may differ substan tially from creatinine-based eGFR in patients with a bnormal muscle mass or acutely changing renal function. ??Pl ease interpret together with relevant clinical features. Cystatin C, S 2.03 (H) 0.70 - 1.45 mg/L 03/22/2021 8:29 PM CDT DT Specimen Anatomical Collection Method Collection Time Receive d Time (Source) Location / / Volume Laterality Blood (Blood, 03/22/2021 4:02 PM 03/22/20 8:04 Venous) CDT PM CDT Phuong Portillo M.D. LAB BLOOD ADD-ON Performing Organization Address City/[facility] Phon e Number [facility] - [address] [place], [place] [address] [place] [address] Laboratories-[facility] [address] 25-Hydroxyvitamin D2 and D3 (03/22/2021 4:02 PM CDT) P athologist Signature 25-Hydroxy D2 <4.0 ng/mL 03/23/2021 SDSC 8:32 PM CDT 25-Hydroxy D3 50 ng/mL 03/23/2021 SDSC 8:32 PM CDT 25-Hydroxy D 50 ng/mL 03/23/2021 [facility] Total 8:32 PM CDT Comment: ----REFERENCE VALUE---- 25-HYDROXY D TOTAL (D2+D3) Optimum level s in the healthy population are 20-50, patients with bone disease may benefit from higher levels within this r jordan. ----ADDITIONAL INFORMATION---- This test was developed and its performa nce characteristics determined by [facility] in a manner consistent with CLIA requirements. This test has not been cleared or approved by the [place] d and Drug Administration. Specimen Anatomical Collection Method Collection Time Receive d Time (Source) Location / / Volume Laterality Blood (Blood, 03/22/2021 4:02 PM 03/23/20 21 8:05 Venous) CDT AM CDT Phuong Portillo M.D. LAB BLOOD ADD-ON Performing Organization Address City/[facility]/ZIP Code Phon e Number [facility] [address] [place], [place] [address] [facility] [place] [address] Laboratory Medicine and Pathology [address] [place] (ABNORMAL) Renal Function Panel (03/22/2021 4:02 PM CDT) Analysis Performed At Patho logist Time Signature Potassium, S 5.0 3.6 - 5.2 03/22/2021 DTL mmol/L 4:56 PM CDT Sodium, S 141 135 - 145 03/22/2021 DTL mmol/L 4:56 PM CDT Chloride, S 102 98 - 107 03/22/2021 DTL mmol/L 4:56 PM CDT Bicarbonate, S 27 22 - 29 03/22/2021 DTL mmol/L 4:56 PM CDT Anion Gap 12 7 - 15 03/22/2021 DTL 4:56 PM CDT BUN (Blood Urea 40 (H) 6 - 21 03/22/2021 DTL Nitrogen), S mg/dL 4:56 PM CDT Creatinine 1.43 (H) 0.59 - 03/22/2021 DTL 1.04 mg/dL 4:56 PM CDT eGFR-Non 34 (L) >=60 03/22/2021 DTL Black/ mL/min/BSA 4:56 PM CDT Turkmen Comment: ----ADDITIONAL INFORMATION---- Estimated GFR calculated using the 2009 CKD_EPI creatinine equation. eGFR-Black/ 39 (L) >=60 mL/min/BSA 2020 4:56 PM CDT DTL Comment: ----ADDITIONAL INFORMATION---- Estimated GFR calculated using the 2009 CKD_EPI creatinine equation. Calcium, Total, S 9.9 8.8 - 10.2 mg/dL 03/22/2021 4:56 PM CDT DTL Glucose, S 92 70 - 140 mg/dL 03/22/2021 4:56 PM CDT D TL Albumin, S 4.5 3.5 - 5.0 g/dL 03/22/2021 4:56 PM CDT D TL Phosphorus (Inorganic), S 3.8 2.5 - 4.5 mg/dL 03/22/20 4:56 PM CDT DTL Specimen Anatomical Collection Method Collection Time Receive d Time (Source) Location / / Volume Laterality Blood (Blood, 03/22/2021 4:02 PM 03/22/20 4:26 Venous) CDT PM CDT Phuong Portillo M.D. LAB BLOOD ADD-ON Performing Organization Address City/State/ZIP Code Phon e Number [facility] - [address] [place], [place] [address] [facility] [address] Laboratories-[facility] [address] [facility] (ABNORMAL) Uric Acid (03/22/2021 4:02 PM CDT) P athologist Signature Uric Acid, S 10.9 (H) 2.7 - 6.1 03/22/2021 DTL mg/dL 5:08 PM CDT Specimen Anatomical Collection Method Collection Time Receive d Time (Source) Location / / Volume Laterality Blood (Blood, 03/22/2021 4:02 PM 03/22/20 4:26 Venous) CDT PM CDT Phuong Portillo M.D. LAB BLOOD ADD-ON Performing Organization Address City/State/ZIP Code Phon e Number [facility] - [address] [place] [address] [facility] [address] Laboratories-[address] (ABNORMAL) Comprehensive Metabolic Panel (03/22/2021 4:02 PM CDT) Analysis Performed At Patho logist Time Signature Potassium, S 5.0 3.6 - 5.2 03/22/2021 DTL mmol/L 4:56 PM CDT Sodium, S 141 135 - 145 03/22/2021 DTL mmol/L 4:56 PM CDT Chloride, S 102 98 - 107 03/22/2021 DTL mmol/L 4:56 PM CDT Bicarbonate, S 27 22 - 29 03/22/2021 DTL mmol/L 4:56 PM CDT Anion Gap 12 7 - 15 03/22/2021 DTL 4:56 PM CDT BUN (Blood Urea 40 (H) 6 - 21 03/22/2021 DTL Nitrogen), S mg/dL 4:56 PM CDT Creatinine 1.43 (H) 0.59 - 03/22/2021 DTL 1.04 mg/dL 4:56 PM CDT eGFR-Non 34 (L) >=60 03/22/2021 DTL Black/ mL/min/BSA 4:56 PM CDT Turkmen Comment: ----ADDITIONAL INFORMATION---- Estimated GFR calculated using the 2009 CKD_EPI creatinine equation. eGFR-Black/ 39 (L) >=60 mL/min/BSA 2020 4:56 PM CDT DTL Comment: ----ADDITIONAL INFORMATION---- Estimated GFR calculated using the 2009 CKD_EPI creatinine equation. Calcium, Total, S 9.9 8.8 - 10.2 mg/dL 03/22/2021 4:56 PM CDT DTL Glucose, S 92 70 - 140 mg/dL 03/22/2021 4:56 PM CDT D TL Protein, Total, S 6.2 (L) 6.3 - 7.9 g/dL 03/22/2021 4:56 P M CDT DTL Albumin, S 4.5 3.5 - 5.0 g/dL 03/22/2021 4:56 PM CDT D TL Aspartate Aminotransferase 26 8 - 43 U/L 03/22/2021 4 :56 PM CDT DTL (AST), S Alkaline Phosphatase, S 67 35 - 104 U/L 03/22/2021 4: 56 PM CDT DTL Alanine Aminotransferase 23 7 - 45 U/L 03/22/2021 4:5 6 PM CDT DTL (ALT), S Bilirubin, Total, S 0.3 <=1.2 mg/dL 03/22/2021 4:56 PM CDT DTL Specimen Anatomical Collection Method Collection Time Receive d Time (Source) Location / / Volume Laterality Blood (Blood, 03/22/2021 4:02 PM 03/22/20 4:26 Venous) CDT PM CDT Phuong Portillo M.D. LAB BLOOD ADD-ON Performing Organization Address City/State/ZIP Code Phon e Number [facility] - [address] [place], [place] [address] [facility] [address] Laboratories-[facility] [address] NT-Pro B-Type Natriuretic Peptide (BNP) (03/22/2021 4:02 PM CDT) athologist Signature NT-Pro BNP 250 <=263 pg/mL 03/22/2021 DTL 5:08 PM CDT Comment: NT-proBNP values less than 300 pg/mL hav e a 99% negative predictive value for excluding acute congestive heart edith lure. A cutoff of 1200 pg/mL for patients with an eGFR<60 yields a diagno stic sensitivity and specificity of 89% and 72% for acute congestive heart f ailure. ??A diagnostic NT-proBNP cutoff of 1800 pg/mL has been suggested in adults over 75 years of age in the absence of renal failure. Specimen Anatomical Collection Method Collection Time Receive d Time (Source) Location / / Volume Laterality Blood (Blood, 03/22/2021 4:02 PM 03/22/20 4:26 Venous) CDT PM CDT Phuong Portillo M.D. LAB BLOOD ADD-ON Performing Organization Address City/State/ZIP Code Phon e Number [facility] - [address] [place], [place] [address] [facility] [address] Laboratories-[facility] [address] documented in this encounter Visit Diagnoses Diagnosis Edema Leg Dyspnea On Exertion Hypertensive Chronic Kidney Disease (CKD ) Stage 3b Glomerular Filtration Rate (GFR) 30 To 44 (HCC) documented in this encounter Additional Health Concerns Assessment Noted Time PHQ-9 Depression Total Score: 15 03/22/2021 12:16 PM C DT documented as of this encounter
--- OUTSIDE RECORDS SUMMARY | 2022-10-07 10:46 | XMS_ITS | Encounter Summary ---
:1935 Author Organization [facility] Address [address] [place] [address] Care Team Providers Name Role Phone Unavailable Primary Care Provider Unavailable Encounter Details Date Type Department Care Team Description 03/22/2021 Diagnostic Division of Pulmonary Phuong Portillo Obstructive Sleep Apnea Medicine in Barney Ruiz M.D. Adult [place] [address] [facility] [address] [place] [address] [phone] Social History Tobacco Use Types Packs/Day Years [...] or relatives? How often do you attend anabaptism or 1 to 4 times per year 03/2022 faith services? Do you belong to any clubs or No 02/19/2022 organizations such as anabaptism groups, unions, fraternal or athletic groups, or school groups? How often do you attend meetings of the to 4 times per yea r 02/19/2022 [...] Name Priority Date/Time Associated Diagnosis Comme nts PUL HOME OVERNIGHT Routine 03/22/2021 Obstructive Sleep Apne a Results for this OXIMETRY Adult procedure are i n the results section . documented in this encounter Results PUL Home Overnight Oximetry (03/22/2021) Specimen (Source) Anatomical Location Collection Method / Collectio n Time Received Time / Laterality Volume 03/22/2021 Narrative KARENA AKBAR EAP - 03/23/2021 4:22 PM CD T This result has an attachment that is no t available. See PDF report for results Procedure Note Sammy Reno M.D. - 03/23/2021Formattin g of this note might be different from the original. See PDF report for results Phuong Portillo M.D. PFT ORDERABLES Performing Organization Address City/State/ZIP Code Phon e Number THURSTON RAFFY EAP documented in this encounter Visit Diagnoses Diagnosis Obstructive Sleep Apnea Adult documented in this encounter Additional Health Concerns Assessment Noted Time PHQ-9 Depression Total Score: 15 03/22/2021 12:16 PM C DT documented as of this encounter
--- OUTSIDE RECORDS SUMMARY | 2022-10-07 10:46 | XMS_ITS | Encounter Summary ---
:1935 Author Organization [facility] Address [address] [place] [address] Care Team Providers Name Role Phone Unavailable Primary Care Provider Unavailable Reason for Referral Outpatient (Routine) - Closed Specialty Diagnoses / Procedures Referred By Contact Refer red To Contact Diagnoses Neuropathy Peripheral Amos Rogers M.B.B.S. [facility] Procedures EMG [address] [place] [address] Referral ID Status Reason Start Date Expiration Date Visits Requ ested Visits Authorized [id number] Closed 12/11/2020 12/11/2021 1 1 Reason for Visit Outpatient (Routine) - Closed Specialty Diagnoses / Procedures Referred By Contact Refer red To Contact Diagnoses Neuropathy Peripheral Amos Rogers M.B.B.S. [facility] Procedures EMG [address] [place] [address] Referral ID Status Reason Start Date Expiration Date Visits Requ ested Visits Authorized [id number] Closed 12/11/2020 12/11/2021 1 1 Encounter Details Date Type Department Care Team Description 03/07/2021 Hospital Encounter Department of Alvin, Neuropat hy Peripheral Neurology in [place], [place] [facility] [address] [place] [id number] [phone] Social History Tobacco Use Types Packs/Day Years [...] or slept in a [facility] (including now)? Sex Assigned at Date Recorded Female 02/19/2022 [...] by 0 acid-epa 120-180 mg mouth daily. [place] 3 capsule (strength unknown) esomeprazole (NexIUM) Take [...] Nopalea juice - 1 shot 0 daily VITAMIN K2 ORAL Take 1 capsule by [...] 0 01/31/201708/2022 (METAMUCIL ORAL) mouth as needed. sulfamethoxazole-trimet Take 1 tablet by mouth 0 02/24/2021 03/22/2021 hoprim (BACTRIM,SEPTRA) 2 (two) times a day. 400-80 mg per tablet for 14 days sulfamethoxazole/trimet Take 2 tablets by 0 03/22/2021 hoprim (SMZ-TMP DS mouth daily. 400-80 mg ORAL) each daily traMADoL (ULTRAM) 50 mg Take 50 mg by mouth as 0 09/17/2021 tablet needed. UNABLE TO FIND Energy Now - as needed 0 03/22/2021 UNABLE TO FIND Pro Digest 1-2 caps 0 1 11/17/2020 daily UNABLE TO FIND Nerve Formula - 2 tabs 0 09/17/2021 daily UNABLE TO FIND Phytoceramides - 1 cap 0 09/17/2021 daily documented as of this encounter Plan of Treatment Not on filedocumented as of this encounter Procedures Procedure Name Priority Date/Time Associated Diagnosis Comme nts EMG Routine 03/07/2021 8:24 AM Neuropathy Peripheral Results for this CDT procedure are i n the results section . documented in this encounter Results EMG (03/07/2021 8:24 AM CDT) Specimen (Source) Anatomical Collection Method Collection Time Re ceived Time Location / / Volume Laterality 03/07/2021 9:15 AM CDT Narrative [facility] - 03/07/2021 1:08 PM CDT 07-Mar-2021 ? Electromyography ? Final Report Study Number: 4 EMG Medical Administrative Assistant: Abel Wall [phone] or [phone] Referred by: AMOS ROGERS (127 or [phone]) Referred for: PN Referral Code: ?040 RX: 200 ??250 SUMMARY: Prior to starting the procedure , the patient's identity was verified, pertinent available records were reviewed, the nature of the procedure was explained, the appropriate sites of the exam were confirmed directly with the pa tient, and a pre-procedure pause was performed for final verification of all of the above. ?? This study was technically difficult due to body habitus and peripheral edema. ??Bilatera l lower limb nerve conduction studies demonstrated low amplitude fibular and tibial compound mu scle action potentials with mildly slowed/borderline conduction velocities. Right upper limb sensory nerve action potentials demonstrated mildly prolonged peak latencies with slowed con duction velocity limited to the median antidromic conduction. Concentric needle examination demonstrat ed reduced recruitment, long duration, high amplitude, polyphasic mot or unit potentials with fibrillation potentials in the distal lower extremity musculature. ?? 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 ??Compared to the most recent prior study dated 07/16/2011, there has been some ex pected progression of the peripheral neuropathy. I have reviewed the findings of the exam ining physician and agree with the interpretation. ? Morenita Lim/Mary Ty/Stevie Wall (127 or [phone])/[facility] NERVE CONDUCTIONS ??Record Rep ?? Normal ??Normal Distal Normal F-Wave F-Wave Temp Nerve Type Site Stim Side Amp Amp CV CV Lat Lat Lat Est (??C) Fibular Motor EDB ??L 0.3 (> 2.0) 40 (> 41) 4.5 (< 6.6) ?? 31.2 Fibular Motor EDB ??R 0.2 (> 2.0) 39 (> 41) 4.1 (< 6.6) ?? 29.4 Tibial Motor AH ??L 0.5 (> 4.0) 44 (> 40 ) 3.7 (< 6.1) ?? 32.3 Tibial Motor AH ??R 1.0 (> 4.0) 35 (> 40 ) 5.1 (< 6.1) 65.4 68.5 29.8 Ulnar Motor ADM ??R 12.0 (> 6.0) 53 (> 5 1) 3.0 (< 3.6) 31.1 26.8 31.7 Median Sensory Dig II ??R 16 (> 15.0) 45 (> 56) 3.9 (< 3.6) ?? 31.1 Ulnar Sensory Dig V ??R 18 (> 10.0) ??(> 54) 3.3 (< 3.1) ?? 31.5 NEEDLE EMG ??Ins Spont ??MUP ??Recruitment ??Durat ion ??Amplitude ??Phases ?? Muscle Side Act Fib Fasc Normal Activ Re duced Rapid Long Short High Low % Turns Tensor fasciae latae L NL 0 0 NL ? Vastus medialis R NL 0 0 NL ? Vastus medialis L NL 0 0 NL ? + Gastrocnemius (medial head) L NL 0 0 ? + ??+ ? Gastrocnemius (medial head) R NL 0 0 ? + ??+ ? Tibialis anterior R INC + 0 ?? ++ ??+++ ??++ ? Tibialis anterior L INC ++ 0 ?? + ??++ ? ?++ ??50% ++ Abductor hallucis L INC ++ 0 ----- ? Comment: cannot elicit MUP Abductor hallucis R INC + 0 ? ++ ??+ + ? This interpretation has been electron ically signed: Abel Wall MD at 03/07/2021 1:00:37 PM CDT Procedure Note Abel Wall M.D. - 03/07/2021Formatt ing of this note is different from the original. 07-Mar-2021 Electromyography Final Repor t Study Number: 4 EMG Medical Administrative Assistant: Abel Wall. 127 or ( [phone] Referred by: AMOS ROGERS (127 or [phone]) Referred for: PN Referral Code: 040 RX: 200 250 SUMMARY: Prior to starting the procedure , the patient's identity was verified, pertinent available records were reviewed, the nature of the procedure was explained, the appropriate sites of the exam were confirmed directly with the pa tient, and a pre-procedure pause was performed for final verification of all of the above. This study was technically difficult due to body habitus and peripheral edema. Bilateral lower limb nerve conduction studies demonstrated low amplitude fibular and tibial compound mu scle action potentials with mildly slowed/borderline conduction velocities. Right upper limb sensory nerve action potentials demonstrated mildly prolonged peak latencies with slowed con duction velocity limited to the median antidromic conduction. Concentric needle examination demonstrat ed reduced recruitment, long duration, high amplitude, polyphasic mot or unit potentials with fibrillation potentials in the distal lower extremity musculature. 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 Compared to the most recent prior study dated 07/16/2011, there has been some ex pected progression of the peripheral neuropathy. I have reviewed the findings of the exam ining physician and agree with the interpretation. Morenita Lim/Mary Ty/Stevie Wall (127 or [phone])/[facility] NERVE CONDUCTIONS Record Rep Normal Normal Distal Normal F-Wave F-Wave Temp Nerve Type Site Stim Side Amp Amp CV CV Lat Lat Lat Est (??C) Fibular Motor EDB L 0.3 (> 2.0) 40 (> 41 ) 4.5 (< 6.6) 31.2 Fibular Motor EDB R 0.2 (> 2.0) 39 (> 41 ) 4.1 (< 6.6) 29.4 Tibial Motor AH L 0.5 (> 4.0) 44 (> 40) 3.7 (< 6.1) 32.3 Tibial Motor AH R 1.0 (> 4.0) 35 (> 40) 5.1 (< 6.1) 65.4 68.5 29.8 Ulnar Motor ADM R 12.0 (> 6.0) 53 (> 51) 3.0 (< 3.6) 31.1 26.8 31.7 Median Sensory Dig II R 16 (> 15.0) 45 ( > 56) 3.9 (< 3.6) 31.1 Ulnar Sensory Dig V R 18 (> 10.0) (> 54) 3.3 (< 3.1) 31.5 NEEDLE EMG Ins Spont MUP Recruitment Duration Ampl itude Phases Muscle Side Act Fib Fasc Normal Activ Re duced Rapid Long Short High Low % Turns Tensor fasciae latae L NL 0 0 NL Vastus medialis R NL 0 0 NL Vastus medialis L NL 0 0 NL + Gastrocnemius (medial head) L NL 0 0 + + Gastrocnemius (medial head) R NL 0 0 + + Tibialis anterior R INC + 0 ++ +++ ++ Tibialis anterior L INC ++ 0 + ++ ++ 50% ++ Abductor hallucis L INC ++ 0 ----- Comment: cannot elicit MUP Abductor hallucis R INC + 0 ++ ++ This interpretation has been electron ically signed: Abel Wall MD at 03/07/2021 1:00:37 PM CDT Amos Ly NEUROLOGY ORDERABLES Performing Organization Address City/State/ZIP Code Phon e Number [facility] documented in this encounter Visit Diagnoses Diagnosis Neuropathy Peripheral documented in this encounter Additional Health Concerns Assessment Noted Time PHQ-9 Depression Total Score: 20 04/21/2015 3:12 PM CD T documented as of this encounter
--- OUTSIDE RECORDS SUMMARY | 2022-10-07 10:46 | XMS_ITS | Encounter Summary ---
:1935 Author Organization [facility] Address [address] [place] [address] Care Team Providers Name Role Phone Unavailable Primary Care Provider Unavailable Reason for Visit Outpatient (Routine) - Closed Specialty Diagnoses / Procedures Referred By Contact Refer red To Contact Neurology Amy Esquivel M. B.B.S. [facility] [address] [place] [phone] Referral ID Status Reason Start Date Expiration Date Visits Requ ested Visits Authorized [id number] Closed 03/06/2021 03/06/2022 1 1 Encounter Details Date Type Department Care Team Description 03/21/2021 Office Visit Department of Alvin, Neuropathy Per julian (Primary Dx); Neurology in [facility], Foot Drop Right [place], [place] M.B.B.S. [address] [place] [address] [place] [phone] [phone] Social History Tobacco Use Types Packs/Day Years [...] or relatives? How often do you attend quaker or 1 to 4 times per year 03/2022 alevism services? Do you belong to any clubs or No 02/19/2022 organizations such as quaker groups, unions, [employer] or athletic groups, or school groups? How [...] a [place] [facility] (including now)? Sex Assigned at Date Recorded Female 02/19/2022 7:48 AM CDT documented as of this encounter Progress Notes Amy Esquivel M.B.B.S. - 03/21/2021 4:30 PM CDT ASSESSMENT / PLAN #1 Chronic lower back pain #2 History of right peroneal neuropathy, right footdrop #3 Length-dependent peripheral neuropathy ?? 85-year-old lady who presents for evaluation peripheral neuropathy. Her clinical presentation is concerning combination of multiple conditions contributing to her current symptoms including length-dependent peripheral neuropathy, right peroneal neuropathy (underwent surgical deep compression 2007) andchronic spine arthropathy. She was evaluated by Dr. Solis in 2010 for management of peripheral neuropathy which was presumed to be idiopathic. Over the last 10 years the neuropathy has gradually worsened. EMG/NCS also shows length dependent predominantly axonal, sensorimotor peripheral neuropathy which seems to have progressed since prior evaluation in 2010. Vitamin B12, SSEP, connective tissue disease cascade were unremarkable. However, creatinine levels have mildly worsened (Cr. 1.78). She is scheduled for internal medicine consultation tomorrow. 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 She is also schedule for spine clinic consultation for lower back pain. documented in this encounter Plan of Treatment Not on filedocumented as of this encounter Visit Diagnoses Diagnosis Neuropathy Peripheral - Primary Foot Drop Right documented in this encounter Additional Health Concerns Assessment Noted Time PHQ-9 Depression Total Score: 20 04/21/2015 3:12 PM CD T documented as of this encounter
--- OUTSIDE RECORDS SUMMARY | 2022-10-07 10:46 | XMS_ITS | Encounter Summary ---
:1935 Author Organization [facility] Address [address] [place] [address] Care Team Providers Name Role Phone Unavailable Primary Care Provider Unavailable Reason for Referral Outpatient (Routine) - Closed Specialty Diagnoses / Procedures Referred By Contact Refer red To Contact Diagnoses Neuropathy Peripheral Amy Esquivel M.B.B.S. [facility] Procedures Thermoregulatory sweat test [address] [place] [address] Referral ID Status Reason Start Date Expiration Date Visits Requ ested Visits Authorized [id number] Closed 12/11/2020 12/11/2021 1 1 Reason for Visit Outpatient (Routine) - Closed Specialty Diagnoses / Procedures Referred By Contact Refer red To Contact Diagnoses Neuropathy Peripheral Amy Esquivel M.B.B.S. [facility] Procedures Thermoregulatory sweat test [address] [place] [address] Referral ID Status Reason Start Date Expiration Date Visits Requ ested Visits Authorized [id number] Closed 12/11/2020 12/11/2021 1 1 Encounter Details Date Type Department Care Team Description 03/08/2021 Hospital Encounter Department of Alvin, Neuropat hy Peripheral Neurology in [place], [place] MThoB.S. [address] [place] [phone] Social History Tobacco Use Types Packs/Day Years [...] or relatives? How often do you attend episcopalian or 1 to 4 times per year 03/2022 congregational services? Do you belong to any clubs or No 02/19/2022 organizations such as episcopalian groups, unions, fraternal or athletic groups, or [...] slept in a care home (including now)? Sex Assigned at Date Recorded [...] by 0 acid-epa 120-180 mg mouth daily. [place] 3 capsule (strength unknown) esomeprazole (NexIUM) Take [...] Procedure Name Priority Date/Time Associated Comments Diagnosis THERMOREGULATORY SWEAT Routine 03/08/2021 10:20 Neuropathy R esults for this TEST AM CDT Peripheral procedure are i n the results section. 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 This pattern can be ob served as a result of medications (oxybutynin, buproprion), in chronic idi opathic anhidrosis, or autonomic disorders. Sweating in purple shaded area ??RESULTS : Starting Oral Temp (??C): ?35. 7 Ending Oral Temp (??C): ?38 Oral Temp Difference (??C): ?2.3 % Anhidrosis: ? 85.8 Distribution: ? Global Hyperhidrosis: ?No Narrative ERASMO MARTINEZ AUTO - 03/08/2021 11:38 AM CDT FINAL ?REPORT ?Th ermoregulatory Sweat Test ? [phone] ??Age: 85 ??Location: [facility] ER ??Lab #: [id number] ?? Vielka Yap ??Sex: F ??Order ID: [id number] ?? Date: 03/08/2021 ?? : 1935 ?? Autonomic Industrial Equipment Mechanic: Mary Garcia ([id number]) ? Amy Ly NEUROLOGY ORDERABLES Performing Organization Address City/State/ZIP Code Phon e Number [facility]O documented in this encounter Visit Diagnoses Diagnosis Neuropathy Peripheral documented in this encounter Additional Health Concerns Assessment Noted Time PHQ-9 Depression Total Score: 20 04/21/2015 3:12 PM CD T documented as of this encounter
--- OUTSIDE RECORDS SUMMARY | 2022-10-07 10:46 | XMS_ITS | Encounter Summary ---
:1935 Author Organization [facility] Address [address] [place] [address] Care Team Providers Name Role Phone Unavailable Primary Care Provider Unavailable Reason for Visit Reason Comments Pre-visit Intake Intake complete Encounter Details Date Type Department Care Team Description 03/02/2021 Clinical Communication Department [facility] [place], Pre- visit Intake Neurology in [facility] (Intake complet e) [facility] [address] [facility] [address] [place] [phone] Social History Tobacco Use Types Packs/Day Years [...] 1 to 4 times per year 03/2022 lutheran services? Do you belong to any clubs [...] or slept in a assisted (including now)? Sex Assigned at Date Recorded Female 02/19/2022 7:48 AM CDT documented as of this encounter Plan of Treatment Not on filedocumented as of this encounter Visit Diagnoses Not on filedocumented in this encounter Additional Health Concerns Assessment Noted Time PHQ-9 Depression Total Score: 20 04/21/2015 3:12 PM CD T documented as of this encounter
--- OUTSIDE RECORDS SUMMARY | 2022-10-07 10:46 | XMS_ITS | Encounter Summary ---
:1935 Author Organization [facility] Address [address] [place] [address] Care Team Providers Name Role Phone Unavailable Primary Care Provider Unavailable Reason for Referral Physical Therapy (Routine) - Closed Specialty Diagnoses / Procedures Referred By Contact Refer red To Contact Diagnoses Neuropathy Peripheral Foot Drop Right Edema Leg Juanito Rodriguez M.D. [facility] Procedures PT or OT eval and treat (first available) [address] [place] [address] Referral ID Status Reason Start Date Expiration Date Visits Requ ested Visits Authorized [id number] Closed 03/13/2021 03/13/2022 99 99 Outpatient (Routine) - Closed Specialty Diagnoses / Procedures Referred By Contact Refer red To Contact Internal Medicine / Diagnoses Edema Leg Juanito Rodriguez [facility] General Internal M.D. Medicine [address] [place] [address] Referral ID Status Reason Start Date Expiration Date Visits Requ ested Visits Authorized [id number] Closed 03/13/2021 03/13/2022 1 1 Reason for Visit Reason Comments Neuro Problem Outpatient (Routine) - Closed Specialty Diagnoses / Referred By Contact Referred To Contact Procedures Physical Medicine and Diagnoses Neuropathy Peripheral Foot Drop Right [facility] [address] [place] [address] Referral ID Status Reason Start Date Expiration Date Visits Requ ested Visits Authorized [id number] Closed 03/06/2021 03/06/2022 1 1 Encounter Details Date Type Department Care Team Description 03/13/2021 Comprehensive Visit Department of Shannan Rodriguez Peripheral (Primary Dx); Physical Medicine and Juanito C, Foot D rop Right; Rehabilitation in M.D. Edema Leg; [place], [place] [address] [facility] Unsteadiness Gait Disorder Non Orthopedi c [address] [place] [phone] Social History Tobacco Use [...] or slept in a [facility] (including now)? Sex Assigned at Date Recorded Female 02/19/2022 7:48 AM CDT documented as of this encounter Consult Notes Juanito Rodriguez M.D. - 03/13/2021 10:00 AM CDT REQUESTING PROVIDER Amy Esquivel M.B.B.S. REASON FOR CONSULT Peripheral neuropathy, right footdrop, gait unsteadiness HISTORY OF PRESENT ILLNESS Mrs. Vielka Yap is a 85 y.o. female who presents today for evaluation and rehabilitation recommendations regarding peripheral neuropathy, right footdrop and gait difficulties. History is obtained from the patient and notes from Dr. Esquivel are reviewed. She has has progressive difficulty with gait unsteadiness, peripheral neuropathy and superimposed right footdrop secondary to a right peroneal neuropathy. She uses a 4 wheeled walker for ambulation within the home and wheelchair for longerdistance. She endorses 4 falls in the last 6 months, which she feels will occurs when she catches her right foot. She denies any dizziness, lightheadedness, syncope or presyncopal symptoms. She has diff iculty with prolonged standing secondary to back pain and is [facility]. She additionally notes pain in the distal lower extremities in the setting of chronic edema and has used furosemide for many years. She has never used a right AFO. She was able to obtain some compression stockings [id number] that it could be donned independently or with her 's help but has not used these on a regular basis. She has never had short stretch wrapping, prescription compression garments, or used a lymphedema pump. She has assistance for bathing and dressing from her , otherwise remains independent for activities of daily living. He tends to perform most of the instrumental ADLs and home maintenance activities because of her limitation in standing secondary to backpain. The following portions of the patient's history were reviewed and updated as appropriate: allergies,current medications, family history, medical history, social history, surgical history and problem list. 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 I am only responding to those symptoms which are directly relevant to the specific indication for my consultation. I recommend that the patient follow up with their primary or referring provider to pursue any other symptoms which may be of concern. MEDICATIONS Current Outpatient Medications on File Prior to Visit Medication Sig Dispense Refill ??? acetaminophen (TYLENOL 8 HR) 650 mg ER tablet Take 650-1,300 mg by mouth as needed. ??? buPROPion XL (WELLBUTRIN XL) 150 mg 24 hr tablet Take 300 mg [...] mg capsule Take 400 mg by mouth daily. ??? cholecalciferol (Vitamin D3) 50 mcg (2,000 Unit) tablet Take 50 mcg by mouth daily. ??? coenzyme Q10 (CO Q-10) 200 mg capsule Take 200 mg by mouth daily. ??? collagen, hydrolysate, bovine, (collagen, hydr, bovine,, bulk,) 100 % powder as needed. ??? docosahexaenoic acid-epa 120-180 mg capsule Take 1 capsule by mouth daily. [place] 3 ??? esomeprazole (NexIUM) [address] capsule Take 20 mg by mouth as needed. ??? furosemide (LASIX) 20 mg tablet Take 2 tablets by mouth daily as needed. ??? GLUTATHIONE MISC Take 1 capsule by mouth daily. ??? levothyroxine (SYNTHROID, LEVOTHROID) 25 mcg tablet [...] 1 tablet by mouth as needed. ??? sulfamethoxazole-trimethoprim (BACTRIM,SEPTRA) 400-80 mg per tablet Take 1 tablet by mouth 2 (two) times a day. for 14 days ??? sulfamethoxazole/trimethoprim (SMZ-TMP DS ORAL) Take 2 tablets by mouth daily. 400-80 mg each daily ??? traMADoL (ULTRAM) 50 mg tablet Take 50 mg by mouth as needed. ??? UNABLE TO FIND Energy Now - as needed ??? UNABLE TO FIND Pro Digest 1-2 caps daily ??? UNABLE TO FIND Nerve Formula - 2 tabs daily ??? UNABLE TO FIND Nopalea juice - 1 shot daily ??? UNABLE TO FIND Phytoceramides - 1 cap daily ??? VITAMIN K2 ORAL Take 1 capsule by mouth daily. 120 mcg ??? ZINC ACETATE ORAL Take 50 mg by mouth daily. No current facility-administered medications on file prior to visit. ALLERGIES Allergies Allergen Reactions ??? Amoxicillin-Pot Clavulanate Nausea And Vomiting ??? Ibuprofen Other (see comments) in large quantities- personality change ??? Tazobactam Nausea Only ??? Tetracycline Other (see comments) Yeast infection OBJECTIVE PHYSICAL EXAM General/constitutional: Well-developed, well-nourished female in no acute distress. Mental status/psychologic: Appropriate mood and affect. No atypical or exaggerated pain responses were noted. Grossly oriented with coherent speech and thought processing Neurologic: Coordination: Coordination grossly intact in upper and lower extremities other than the distal right lower extremity Reflexes: Bilateral upper extremity muscle stretch reflexes physiologic and symmetric, bilateral lower extremity muscle stretch reflexes blunted. Plantar responses down going bilaterally. Sensation: Stocking distribution hypoesthesia to light touch and proprioception Strength: Other than weakness for right dorsiflexion, eversion, and toe extension which are -3, strength is physiologic and symmetric in the upper and lower extremities. Musculoskeletal: Inspection: No obvious vasomotor nor atrophic changes noted though somewhat difficult to assess in the distal lower extremities due to superimposed edema. Palpation: No widespread tenderness. Joint ROM: Joint range of motion within functional limits throughout. Gait: Transfer [id number] are independent with upper extremity push-up. Right steppage gait with walker. Decreased chloé and asymmetric stride length. Unable to raise onto toes and heels. Romberg is positive. Skin: Skin grossly negative for erythema, breakdown, or concerning lesions in affected area Lymphatic: Marked distal lower extremity edema to the proximal third of the lower legs bilaterally. Negative Stemmer sign. Cardiovascular: Good peripheral perfusion. Respiratory: Breathing comfortable and regular. No dyspnea noted DIAGNOSTICS Caustic studies of March 07, 2021 demonstrate ???There continues to be electrodiagnostic evidence ofa length dependent, predominantly axonal, sensorimotor peripheral neuropathy. Compared to the most recent prior study dated 07/16/2011, there has been some expected progression of the peripheral neuropathy. We reviewed the findings together to facilitate patient education. ASSESSMENT / PLAN #1 Neuropathy Peripheral #2 Foot Drop Right #3 Edema Leg #4 Unsteadiness Gait Disorder Non Orthopedic I discussed the clinical findings, diagnosis and general prognosis with Mrs. Yap. Her history and examination are consistent with multifactorial gait difficulties, with contributing elements of peripheral neuropathy and superimposed right peroneal neuropathy with footdrop. Other significant medical issues include a bilateral lower extremity edema in the setting of hypertensive cardiovascular disease, and chronic low back pain. She is [facility] with [facility] for her [facility] difficulties. She requested consultation regarding her cardiovascular issues and would recommend initiating through General Internal Medicine. Regarding her gait difficulties, would recommend pursuing a custom fabricated right dorsiflexion assist AFO. This should be custom fabricated in the presence of the peripheral neuropathy. We will not be able to proceed however with the AFO until limb volume has been optimized. In addition to the Internal Medicine consultation, I would like her to be seen by the therapists in [facility] and await their recommendations regarding appropriate compressive garments. We also discussed potential rolefor a lower extremity compression pump in addition to the compression garments. After review of the benefits, risks and alternatives, we came up with the following action plan: Orders Placed This Encounter ??? General Internal Medicine - Consultative medicine consult (clinic) Standing Status: Future Standing Expiration Date: 03/13/2024 Referral Priority: Routine Referral Type: Outpatient Referral Location: [facility] Requested Specialty: Internal Medicine Number of Visits Requested: 1 ??? PT or OT eval and treat (first available) Standing Status: Future Standing Expiration Date: 03/13/2024 Order Specific Question: Region Answer: [facility] [[id number]] Order Specific Question: Clinical indications Answer: Lymphedema/edema Order Specific Question: Specify Answer: Eval for edema Once limb volume has been optimized, we will anticipate pursuing include the fabrication of the right AFO and subsequently have her seen in physical therapy for gait training. In the interim she shouldcontinue with use of her 4 wheeled walker. Discussed reasons for urgent consultation. This plan was discussed in detail with the patient, she had her questions answered, voiced understanding, and is agreeable to this course of action. EDUCATION We discussed the diagnosis and treatment plan in detail. The patient expressed understanding of the content. Learning preferences include listening. No apparent learning barriers were identified. A total of 66 minutes was spent in [id number] time and non dkuf-kv-[id number] time on the day of service. PPE use information for possible contact monitoring: PPE used during visit: Provider was wearing a mask and eye protection throughout entire session. Patient was wearing a mask throughout entire session. documented in this encounter Plan of Treatment Scheduled Referrals Name Type Priority Associated Order Schedule Diagnoses General Internal Outpatient Referral Routine Edema Leg Expe cted: Medicine - 03/13/2021 Consultative medicine (Appro ximate), consult (clinic) Expires: 03/13/2024 documented as of this encounter Visit Diagnoses Diagnosis Neuropathy Peripheral - Primary Foot Drop Right Edema Leg Unsteadiness Gait Disorder Non Orthopedi c documented in this encounter Additional Health Concerns Assessment Noted Time PHQ-9 Depression Total Score: 20 04/21/2015 3:12 PM CD T documented as of this encounter
--- OUTSIDE RECORDS SUMMARY | 2022-10-07 10:46 | XMS_ITS | Encounter Summary ---
:1935 Author Organization [facility] Address [address] [place] [id number] Care Team Providers Name Role Phone Unavailable Primary Care Provider Unavailable Encounter Details Date Type Department Care Team Description 03/07/2021 Hospital Encounter Department of Alvin, Neuropat hy Peripheral [facility], [facility] [address] [place] [address] [address] [facility] [address] [place], [place] [phone] (Work) [phone] Social History Tobacco Use Types Packs/Day Years [...] or relatives? How often do you attend tenriism or 1 to 4 times per year 03/2022 yazidism services? Do you belong to any clubs or No 02/19/2022 organizations such as tenriism groups, unions, fraternal or athletic groups, or [...] slept in a long term (including now)? Sex Assigned at Date Recorded [...] by 0 acid-epa 120-180 mg mouth daily. Elverson 3 capsule (strength unknown) esomeprazole (NexIUM) Take [...] Procedure Name Priority Date/Time Associated Comments Diagnosis HIV-1/-2 AG AND AB Routine 03/07/2021 8:12 AM Neuropathy Res ults for this SCREEN, PLASMA CDT Peripheral procedure are in the results section. IN MICROSOMAL AB Routine 03/07/2021 8:12 AM Resul ts for this EA/TPO CDT procedure are i n the results section. IN T4 FREE Routine 03/07/2021 8:12 AM Results f or this CDT procedure are i n the results section. THYROID FUNCTION Routine 03/07/2021 8:12 AM Neuropathy Resul ts for this CASCADE, S CDT Peripheral procedure are i n the results section. PERNICIOUS ANEMIA Routine 03/07/2021 8:12 AM Neuropathy Resu lts for this CASCADE, S CDT Peripheral procedure are i n the results section. COPPER, S Routine 03/07/2021 8:12 AM Neuropathy Results f or this CDT Peripheral procedure are i n the results section. CONNECTIVE TISSUE Routine 03/07/2021 8:12 AM Neuropathy Resu lts for this DISEASE CASCADE, CDT Peripheral procedure a re in [place], S the results section. SEDIMENTATION RATE, B Routine 03/07/2021 8:12 AM Neuropathy Results for this CDT Peripheral procedure are i n the results section. CBC WITH DIFFERENTIAL, Routine 03/07/2021 8:12 AM Neuropathy Results for this B CDT Peripheral procedure are i n the results section. VITAMIN E, S Routine 03/07/2021 8:12 AM Neuropathy Results f or this CDT Peripheral procedure are i n the results section. HEMOGLOBIN A1C, B Routine 03/07/2021 8:12 AM Neuropathy Resu lts for this CDT Peripheral procedure are i n the results section. COMPREHENSIVE Routine 03/07/2021 8:12 AM Neuropathy Results for this METABOLIC PANEL, S/P CDT Peripheral procedu re are in the results section. documented in this encounter Results T4 (Thyroxine), Free, Serum (03/07/2021 8:12 AM CDT) P athologist Signature T4 (Thyroxine), 1.2 0.9 - 1.7 03/07/2021 DTL Free, S ng/dL 9:53 AM CDT Specimen Anatomical Collection Method Collection Time Receive d Time (Source) Location / / Volume Laterality Blood 03/07/2021 8:12 AM 8:42 CDT AM CDT Amy Ly LAB BLOOD ADD-ON Performing Organization Address City/State/ZIP Code Phon e Number [facility] - [address] [place], [place] [address] [facility] [place] [address] Laboratories-[address] Thyroperoxidase (TPO) Antibodies, Serum (03/07/2021 8:12 AM CDT) Patholo gist Method Time Signature Thyroperoxidase Ab, <0.3 <9.0 03/07/2021 DTL S IU/mL 11:20 AM CDT Specimen Anatomical Collection Method Collection Time Receive d Time (Source) Location / / Volume Laterality Blood 03/07/2021 8:12 AM 8:42 CDT AM CDT Amy De La FuenteB.S. LAB BLOOD NON ADD-ON Performing Organization Address City/[facility] Code Phon e Number [facility] - [address] [place], [place] [address] [place] [id number] Laboratories-[address] (ABNORMAL) Thyroid Function [place] (03/07/2021 8:12 AM CDT) P athologist Signature TSH, Sensitive 5.0 (H) 0.3 - 4.2 03/07/2021 DTL mIU/L 9:33 AM CDT Specimen Anatomical Collection Method Collection Time Receive d Time (Source) Location / / Volume Laterality Blood (Blood, 03/07/2021 8:12 AM 03/07/20 8:42 Venous) CDT AM CDT Amy De La FuenteB.S. LAB BLOOD ADD-ON Performing Organization Address City/State/[facility] Code Phon e Number [facility] - 200 [place], [place] [address] [place] [address] Laboratories-[address] (ABNORMAL) Comprehensive Metabolic Panel (03/07/2021 8:12 AM CDT) Analysis Performed At Patho logist Time Signature Potassium, S 4.8 3.6 - 5.2 03/07/2021 DTL mmol/L 9:25 AM CDT Sodium, S 144 135 - 145 03/07/2021 DTL mmol/L 9:25 AM CDT Chloride, S 106 98 - 107 03/07/2021 DTL mmol/L 9:25 AM CDT Bicarbonate, S 28 22 - 29 03/07/2021 DTL mmol/L 9:25 AM CDT Anion Gap 10 7 - 15 03/07/2021 DTL 9:25 AM CDT BUN (Blood Urea 38 (H) 6 - 21 03/07/2021 DTL Nitrogen), S mg/dL 9:25 AM CDT Creatinine 1.78 (H) 0.59 - 03/07/2021 DTL 1.04 mg/dL 9:25 AM CDT eGFR-Non 26 (L) >=60 03/07/2021 DTL Black/ mL/min/BSA 9:25 AM CDT German Comment: ----ADDITIONAL INFORMATION---- Estimated GFR calculated using the 2009 CKD_EPI creatinine equation. eGFR-Black/ 30 (L) >=60 mL/min/BSA 2020 9:25 AM CDT DTL Comment: ----ADDITIONAL INFORMATION---- Estimated GFR calculated using the 2009 CKD_EPI creatinine equation. Calcium, Total, S 9.6 8.8 - 10.2 mg/dL 03/07/2021 9:25 AM CDT DTL Glucose, S 88 70 - 140 mg/dL 03/07/2021 9:25 AM CDT D TL Protein, Total, S 6.3 6.3 - 7.9 g/dL 03/07/2021 9:25 A M CDT DTL Albumin, S 4.2 3.5 - 5.0 g/dL 03/07/2021 9:25 AM CDT D TL Aspartate Aminotransferase (AST), 21 8 - 43 U/L 03/07 9:25 AM CDT DTL S Alkaline Phosphatase, S 64 35 - 104 U/L 03/07/2021 9: 25 AM CDT DTL Alanine Aminotransferase (ALT), S 20 7 - 45 U/L 03/07 9:25 AM CDT DTL Bilirubin, Total, S 0.3 <=1.2 mg/dL 03/07/2021 9:25 AM CDT DTL Specimen Anatomical Collection Method Collection Time Receive d Time (Source) Location / / Volume Laterality Blood (Blood, 03/07/2021 8:12 AM 03/07/20 8:44 Venous) CDT AM CDT Amy FernandezS. LAB BLOOD ADD-ON Performing Organization Address City/[facility] Phon e Number [facility] - [address] [place], [place] [address] [place], [place] [id number] [place] [address] [address] [facility] Vitamin E Level (03/07/2021 8:12 AM CDT) P athologist Signature A-Tocopherol, 13.3 5.5 - 17.0 03/08/2021 [facility] Vitamin E mg/L 5:31 PM CDT Comment: ----ADDITIONAL INFORMATION---- This test was developed and its performa nce characteristics determined by [facility] in a manner consistent with CLIA requirements. This test has not been cleared or approved by the U.[place] Delisa d and Drug Administration. Specimen Anatomical Collection Method Collection Time Receive d Time (Source) Location / / Volume Laterality Blood (Blood, 03/07/2021 8:12 AM 03/07/20 4:52 Venous) CDT PM CDT Amy FernandezSSharon LAB BLOOD NON ADD-ON Performing Organization Address City/[facility]/ZIP Code Phon e Number [facility] [address] [place], [place] [address] [facility] [place] [address] Laboratory Medicine and Pathology [address] [place] Sedimentation Rate (03/07/2021 8:12 AM CDT) Analysis Performed At Patho logist Time Signature Sedimentation 27 3 - 28 03/07/2021 DTL Rate, B mm/h 10:12 AM CDT Specimen Anatomical Collection Method Collection Time Receive d Time (Source) Location / / Volume Laterality Blood (Blood, 03/07/2021 8:12 AM 03/07/20 8:37 Venous) CDT AM CDT Amy FernandezS. LAB BLOOD ADD-ON Performing Organization Address City/State/ZIP [facility] Phon e Number [facility] - [address] [place], [place] [address] [facility] [place] [address] [facility] [address] [facility] Pernicious Anemia [place] (03/07/2021 8:12 AM CDT) athologist Signature Vitamin B12 416 180 - 914 03/07/2021 [facility] Assay, S ng/L 2:05 PM CDT Specimen Anatomical Collection Method Collection Time Receive d Time (Source) Location / / Volume Laterality Blood (Blood, 03/07/2021 8:12 AM 03/07/20 Venous) CDT 11:23 AM CDT Amy FernandezSSharon LAB BLOOD NON ADD-ON Performing Organization Address City/[facility]/ZIP Code Phon e Number [facility] [address] [place] [phone] [facility] [place] [address] Laboratory Medicine and Pathology [address] [place] [address] Dr. [place] Connective Tissue Diseases [place] (03/07/2021 8:12 AM CDT) athologist Signature Antinuclear Ab, 0.3 <=1.0 03/07/2021 [facility] S (Negative) 8:46 PM CDT U Comment: ----ADDITIONAL INFORMATION---- Method: Enzyme-linked immunoassay using HEp-2 nuclear extract supplemented with purified antig ens. Cyclic Citrullinated <15.6 <20.0 (Negative) U 03/07/2021 7:51 PM [facility] Peptide Ab, S CDT Interpretation SEE COMMENT 03/07/2021 8:46 PM [facility] CDT Comment: Tests for antibodies to dsDNA and LIANNE an tigens are not performed automatically unless the SEA r esult is > or = 3.0 U. ??Studies performed at [facility] indicate that positive SEA results <3.0 U are rarely a ccompanied by positive second order tests. Specimen Anatomical Collection Method Collection Time Receive d Time (Source) Location / / Volume Laterality Blood (Blood, 03/07/2021 8:12 AM 03/07/20 Venous) CDT 10:59 AM CDT Amy FernandezSSharon LAB BLOOD ADD-ON Performing Organization Address City/[facility]/ZIP Code Phon e Number [facility] [address] [place], [place] [address] [facility] [place] [address] Laboratory Medicine and Pathology [address] [place] CBC with Differential, Blood (03/07/2021 8:12 AM CDT) P athologist Signature Hemoglobin 12.6 11.6 - 03/07/2021 DTL 15.0 g/dL 9:05 AM CDT Hematocrit 40.8 35.5 - 03/07/2021 DTL 44.9 % 9:05 AM CDT Erythrocytes 4.41 3.92 - 03/07/2021 DTL 5.13 9:05 AM CDT x10(12)/L MCV 92.5 78.2 - 03/07/2021 DTL 97.9 fL 9:05 AM CDT RBC Distrib Width 13.6 12.2 - 03/07/2021 DTL 16.1 % 9:05 AM CDT Platelet Count 198 157 - 371 03/07/2021 DTL x10(9)/L 9:05 AM CDT Leukocytes 5.9 3.4 - 9.6 03/07/2021 DTL x10(9)/L 9:05 AM CDT Neutrophils 4.10 1.56 - 03/07/2021 DTL 6.45 9:05 AM CDT x10(9)/L Lymphocytes 1.21 0.95 - 03/07/2021 DTL 3.07 9:05 AM CDT x10(9)/L Monocytes 0.40 0.26 - 03/07/2021 DTL 0.81 9:05 AM CDT x10(9)/L Eosinophils 0.15 0.03 - 03/07/2021 DTL 0.48 9:05 AM CDT x10(9)/L Basophils 0.03 0.01 - 03/07/2021 DTL 0.08 9:05 AM CDT x10(9)/L Specimen Anatomical Collection Method Collection Time Receive d Time (Source) Location / / Volume Laterality Blood (Blood, 03/07/2021 8:12 AM 03/07/20 8:37 Venous) CDT AM CDT Amy Ly LAB BLOOD ADD-ON Performing Organization Address City/State/ZIP Code Phon e Number [facility] - [address] [place], [place] [address] [facility] [place] [address] Laboratories-[facility] [address] HIV-1/-2 Ag and Ab Screen, Plasma (03/07/2021 8:12 AM CDT) athologist Signature HIV-1/-2 Ag Negative Negative 03/07/2021 [facility] and Ab Screen, 11:51 AM CDT P Comment: Negative result does not rule out HIV in fection. If exposure to HIV infection occurred <14 d ays ago, contact the laboratory to request additi on of HIV-1 RNA detection / quantification test (HIV QN). Specimen Anatomical Collection Method Collection Time Receive d Time (Source) Location / / Volume Laterality Blood (Blood, 03/07/2021 8:12 AM 03/07/20 Venous) CDT 11:11 AM CDT Amy FernandezSSharon LAB MICROBIOLOGY - BLOOD ORD ERABLES Performing Organization Address City/[facility] Code Phon e Number [facility] [address] [place] [address] [facility] [facility] [place] [address] Laboratory Medicine and Pathology [address] [place] [address] Dr. [place] (03/07/2021 8:12 AM CDT) athologist Signature [place], S 1.12 0.75 - 1.45 03/07/2021 2:04 [facility] mcg/mL PM CDT Comment: ----ADDITIONAL INFORMATION---- This test was developed and its performa nce characteristics determined by [facility] in a manner consistent with CLIA requirements. This test has not been cleared or approved by the U.[place]. Delisa d and Drug Administration. Specimen Anatomical Collection Method Collection Time Receive d Time (Source) Location / / Volume Laterality Blood (Blood, 03/07/2021 8:12 AM 03/07/20 Venous) CDT 10:58 AM CDT Amy FernandezSSharon LAB BLOOD NON ADD-ON Performing Organization Address City/[facility]/ZIP [facility] Phon e Number [facility] [address] [place], [place] [address] [facility] [place] [address] Laboratory Medicine and Pathology [address] [place] [address] Dr. [place] Hemoglobin A1c (03/07/2021 8:12 AM CDT) P athologist Signature Hemoglobin A1c, 5.6 4.0 - 5.6 03/07/2021 DTL B % 9:56 AM CDT Specimen Anatomical Collection Method Collection Time Receive d Time (Source) Location / / Volume Laterality Blood (Blood, 03/07/2021 8:12 AM 03/07/20 8:37 Venous) CDT AM CDT Amy Ly LAB BLOOD ADD-ON Performing Organization Address City/State/ZIP Code Phon e Number [facility] - [address] [place], [place] [address] [facility] [place] [address] [facility] [address] documented in this encounter Visit Diagnoses Diagnosis Neuropathy Peripheral documented in this encounter Additional Health Concerns Assessment Noted Time PHQ-9 Depression Total Score: 04/21/2015 3:12 PM CD T documented as of this encounter
--- OUTSIDE RECORDS SUMMARY | 2022-10-07 10:46 | XMS_ITS | Encounter Summary ---
:1935 Author Organization [facility] Address [address] [place] [address] Care Team Providers Name Role Phone Unavailable Primary Care Provider Unavailable Reason for Referral Physical Therapy (Routine) - Closed Specialty Diagnoses / Procedures Referred By Contact Refer red To Contact Diagnoses Neuropathy Peripheral Foot Drop Right Amy Esquivel M.B.B.S. [facility] Procedures PT Evaluate and treat [address] [place] [address] Referral ID Status Reason Start Date Expiration Date Visits Requ ested Visits Authorized [id number] Closed 03/06/2021 03/06/2022 99 99 Outpatient (Routine) - Closed Specialty Diagnoses / Referred By Contact Referred To Contact Procedures Physical Medicine and Diagnoses Neuropathy Peripheral Foot Drop Right Amy Esquivel [facility] Rehabilitation M.B.B.S. [address] [place] [address] Referral ID Status Reason Start Date Expiration Date Visits Requ ested Visits Authorized [id number] Closed 03/06/2021 03/06/2022 1 1 Outpatient (Routine) - Closed Specialty Diagnoses / Procedures Referred By Contact Refer red To Contact Spine Diagnoses Neuropathy Peripheral Foot Drop Right Amy Esquivel M.B.B.S. [address] [address] Referral ID Status Reason Start Date Expiration Date Visits Requ ested Visits Authorized [id number] Closed 03/06/2021 03/06/2022 1 1 Outpatient (Routine) - Closed Specialty Diagnoses / Procedures Referred By Contact Refer red To Contact Neurology Amy Esquivel M. B.B.S. [place] [address] [place] [address] Referral ID Status Reason Start Date Expiration Date Visits Requ ested Visits Authorized [id number] Closed 03/06/2021 03/06/2022 1 1 Reason for Visit Outpatient (Routine) - Closed Specialty Diagnoses / Procedures Referred By Contact Refer red To Contact Neurology Diagnoses Neuropathy Peripheral Diane Alejandra M.D. [address] [address] Referral ID Status Reason Start Date Expiration Date Visits Requ ested Visits Authorized [id number] Closed 10/24/2020 10/24/2021 1 1 Encounter Details Date Type Department Care Team Description 03/06/2021 Comprehensive Visit Department of Carrie Esquivel Dr (Primary Dx); Neurology in [facility], Neuropathy En[place], [place] M.B.B.[place] [id number] Social History Tobacco Use Types Packs/Day Years [...] Pressure - - Pulse - - Temperature 36.6 ??C (97.9 ??F) 03/06/2021 2:34 PM CDT Respiratory Rate - - Oxygen Saturation - - Inhaled Oxygen Concentration - - Weight 117 kg (256 lb 15.1 oz) 03/06/2021 2:34 PM CDT Height 168 cm (5' 6.14) 03/06/2021 2:34 PM CDT Body Mass Index 41.29 03/06/2021 2:34 PM CDT documented in this encounter Consult Amy Ibanez M.B.BSharonS. - 03/06/2021 2:30 PM CDT SUBJECTIVE CHIEF COMPLAINT / REASON FOR VISIT Vielka Yap is a 85 y.o. female who presents for evaluation of peripheral neuropathy. Referred by Dr. Alejandra HISTORY OF PRESENT ILLNESS 85-year-old lady with past medical history glucose intolerance presents for evaluation of peripheralneuropathy. 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 Solis. However over the last 3-4 years she feels the numbness has progressed to involve the anterior/lateral part of her thighs. She feels the symptoms are predominantly present on the right side but lately she has also noted some left lateral thigh sensory symptoms. She reports pinsand needles sensation involving her feet. She also has history of chronic lower back pain. She continues to have episodes of lower back pain rated 6/10, 5 to 6 times a week when she has to lie down to overcome the pain. She denies any radicular features along with the lower back pain. She is also concerned about lower extremity edema. She has had chronic history of urinary incontinence but denies anysignificant orthostatic intolerance, bowel incontinence, dryness of eyes/mouth, skin rashes. 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 acetaminophen (TYLENOL 8 HR) 650 mg ER tablet, Take 650-1,300 mg by mouth as needed., Disp: , Rfl: ??? buPROPion XL (WELLBUTRIN XL) 150 mg 24 hr tablet, Take 300 mg by mouth daily., Disp: , Rfl: ??? buPROPion XL (WELLBUTRIN XL) 300 mg 24 hr tablet, Take 300 mg by mouth daily., Disp: , Rfl: ??? calcium carb,gluc/mag ox,gluc (CALCIUM MAGNESIUM ORAL), Take 1 tablet by mouth daily. Calcium 500 mg, magnesium 200 mg, boron 1000 mcg,Vitamin 3 mg, Vitamin D3 6.25 mcg, Disp: , Rfl: ??? celecoxib (CeleBREX) 200 mg capsule, Take 400 mg by mouth daily., Disp: , Rfl: ??? cholecalciferol (Vitamin D3) 50 mcg (2,000 Unit) tablet, Take 50 mcg by mouth daily., Disp: , Rfl: ??? coenzyme Q10 (CO Q-10) 200 mg capsule, Take 200 mg by mouth daily., Disp: , Rfl: ??? collagen, hydrolysate, bovine, (collagen, hydr, bovine,, bulk,) 100 % powder, as needed., Disp: , Rfl: ??? docosahexaenoic acid-epa 120-180 mg capsule, Take 1 capsule by mouth daily. [place] 3 , Disp: , Rfl: ??? esomeprazole (NexIUM) [address] capsule, Take 20 mg by mouth as needed., Disp: , Rfl: ??? furosemide (LASIX) 20 mg tablet, Take 2 tablets by mouth daily as needed., Disp: , Rfl: ??? GLUTATHIONE MISC, Take 1 capsule by mouth daily., Disp: , Rfl: ??? levothyroxine (SYNTHROID, LEVOTHROID) 25 mcg tablet, Take 25 mcg by mouth daily., Disp: , Rfl: ??? lisinopril-hydroCHLOROthiazide (PRINZIDE,ZESTORETIC) 20-12.5 mg per tablet, Take 1 tablet by mouth daily., Disp: , Rfl: ??? oxybutynin (DITROPAN-XL) 10 mg 24 hr tablet, Take 1 tablet by mouth every other day., Disp: , Rfl: ??? psyllium husk (METAMUCIL ORAL), Take 1 scoopful by mouth as needed., Disp: , Rfl: ??? sennosides (SENNA LAX ORAL), Take 1 tablet by mouth as needed., Disp: , Rfl: ??? sulfamethoxazole-trimethoprim (BACTRIM,SEPTRA) 400-80 mg per tablet, Take 1 tablet by mouth 2 (two) times a day. for 14 days, Disp: , Rfl: ??? sulfamethoxazole/trimethoprim (SMZ-TMP DS ORAL), Take 2 tablets by mouth daily. 400-80 mg each daily, Disp: , Rfl: ??? traMADoL (ULTRAM) 50 mg tablet, Take 50 mg by mouth as needed., Disp: , Rfl: ??? UNABLE TO FIND, Energy Now - as needed, Disp: , Rfl: ??? UNABLE TO FIND, Pro Digest 1-2 caps daily, Disp: , Rfl: ??? UNABLE TO FIND, Nerve Formula - 2 tabs daily, Disp: , Rfl: ??? UNABLE TO FIND, Nopalea juice - 1 shot daily, Disp: , Rfl: ??? UNABLE TO FIND, Phytoceramides - 1 cap daily, Disp: , Rfl: ??? VITAMIN K2 ORAL, Take 1 capsule by mouth daily. 120 mcg, Disp: , Rfl: ??? ZINC ACETATE ORAL, Take 50 mg by mouth daily. , Disp: , Rfl: ALLERGIES: Allergies Allergen Reactions ??? Amoxicillin-Pot Clavulanate Nausea And Vomiting ??? Ibuprofen Other (see comments) in large quantities- personality change ??? Tazobactam Nausea Only ??? Tetracycline Other (see comments) Yeast infection FAMILY HISTORY No significant family history of peripheral neuropathy. OBJECTIVE NEUROLOGICAL EXAMINATION Mental status: normal. Gait: cautious short steppage gait, limited arm swing Walk on heels: unable Walk on toes: unable Getting up from seated position without pushing on chair: no Posture: normal. Coordination: normal. Romberg: positive Speech: normal. High arched palate: Absent Elongated face: Absent Pes cavus: Absent Hammertoes: Absent Contractures: Absent Joint hypermobility: Absent NEUROMUSCULAR EXAMINATION The Neuropathy Impairment Scoring System (NIS) strength scale was utilized. 0=normal; 1=25% weak; 2=50% weak; 3=75% weak; 3.25%=movement against gravity; 3.5=movement, gravity eliminated; 3.75; 4= paralysis. Grayed boxes are utilized to calculate the NIS score (0=normal 244=maximum deficit) Cranial nerves R Muscle strength L R L 0 Facial muscles 0 0 Frontalis 0 0 Orbicularis oculi 0 3 mm Pupils 3 mm 0 Lower facial muscles 0 0 Light reflex 0 0 Temporal-Masseter 0 0 Ptosis 0 0 Palate-Pharynx 0 0 Third cranial 0 0 Sternocleidomastoid 0 0 Sixth cranial 0 0 Trapezius 0 0 Hearing 0 0 Genioglossus 0 Extremity respiratory strengths R Muscle, strength L R Muscle, strength L Neck Trunk 0 Neck flexors 0 Abdominal muscles 0 Neck extensors 0 Paraspinals Upper Limbs Lower Limbs 0 Supraspinatus 0 0 Iliopsoas 0 0 Infraspinatus 0 0 Adductors, thigh 0 0 Pectoralis 0 0 Gluteus medius 0 0 Deltoid 0 0 Gluteus max 0 0 Biceps brachii 0 0 Quadriceps 0 0 Brachioradialis 0 0 Hamstrings 0 Supinator/pronator -3.5 Tibialis anterior 0 0 Triceps 0 -3.5 Peronei 0 0 Wrist extensor 0 -3.25 EHL -2 0 Wrist flexors 0 -3.5 Toe extensors -2 0 Digit extensors 0 -2 Tibialis post. 0 0 Digit flexors 0 -3 Toe flexors 0 0 Thumb abduction 0 0 Calf muscles 0 0 Hypothenar 0 0 Interosseous 0 Muscle atrophy / enlargement: no Fasciculations: no Clinical myotonia: no Rippling: no R Reflexes L R Sensation L For NIS: Normal=0 Reduced=1 Absent=2 0 Biceps brachii 0 Finger index 0 Brachioradialis 0 0 Touch pressure 0 0 Triceps 0 0 Heat pain 0 0 Brock 0 0 Vibration 0 -2 Quadriceps 0 0 Joint position 0 -4 Gastroc-soleus -4 Toes (Great) 0 Clonus (ankle) 0 -4 Touch pressure -4 0 Plantar response 0 -4 Heat pain -4 -4 (upto knees) Vibration -4 (upto knees) -4 Joint position -2 Reduced heat pain reduced (-4) upto the mid salgado. Aslo reduced sensation to heat pain (-2) on the lateral aspect of the left thigh. ASSESSMENT / PLAN IMPRESSION #1 Chronic lower back pain #2 History of right peroneal neuropathy, right footdrop #3 Length-dependent peripheral neuropathy 85-year-old lady who presents for evaluation peripheral neuropathy. Her clinical presentation is concerning combination of multiple conditions contributing to her current symptoms including length-dependent peripheral neuropathy, right peroneal neuropathy (underwent surgical deep compression 2007) andchronic spine arthropathy. She was evaluated by Dr. Solis in 2010 for management of peripheral neuropathy which was presumed to be either idiopathic or secondary to glucose intolerance. Over the last 10 years the length-dependent neuropathy as gradually worsened. On examination she has significant sensory ataxia contributing to gait instability. Furthermore, the gait dysfunction is worsened by the right side footdrop. As a part of the workup for peripheral neuropathy I have ordered EMG/NCS, thermoregulatory sweat test, ARS, fat aspirate and other laboratory evaluations for acquired causes of neuropathy. Additionally I will refer her to PMR and Spine Center. PLAN and RECOMMENDATIONS - EMG/NCS (please evaluate bilateral lower extremities to assess for asymmetry) - ARS, TST (evaluate for presence of meralgia paresthetica given patient's lateral thigh sensory symptoms) - PMR and PT consultation (for sensory ataxia, peripheral neuropathy and right- sided footdrop) - Spine Center consult (chronic lower back pain) - 4% lidocaine topical cream for management pins and needle sensation involving her feet - I will follow up with the patient after completion of this workup PATIENT EDUCATION Ready to learn, no apparent learning barriers were identified; learning preferences include listening. Explained diagnosis and treatment plan; patient expressed understanding of the content. documented in this encounter Plan of Treatment Scheduled Referrals Name Type Priority Associated Order Schedule Diagnoses Neurology office visit Outpatient Referral Routine Expected: (clinic) 03/09/2021, Expires: 03/06/2024 Spine Center - General Outpatient Referral Routine Neuropathy Expected: consult (clinic) Peripheral 03/06/2021 Foot Drop Right (Approximate ), Expires: 03/06/2024 Physical Medicine and Outpatient Referral Routine Neuropathy Expected: Rehabilitation - Peripheral 03/06/2021 General consult Foot Drop Right (Approxim ate), (clinic) Expires: 03/06/2024 documented as of this encounter Results DX Lumbar Spine 2-3 Views (03/07/2021 12:10 PM CDT) Anatomical Region Laterality Modality Lumbar Spine, Musculoskeletal RST LOS, Neuroradiology N/A Digital Radiography ARZ LOS, Muskuloskeletal FLA LOS Specimen (Source) Anatomical Collection Method Collection Time Re ceived Time Location / / Volume Laterality 03/07/2021 12:13 PM CDT Impressions 03/07/2021 12:15 PM CDT Osteopenia. Multilevel lumbar degenerative disc disease with scattered low-grade degenerative subluxa tions. Advanced lumbar facet arthropathy. Degenerative changes both S I joints. Bilateral THAs. Presumed injection granuloma right buttock. Vascu lar calcification. Narrative 03/07/2021 12:15 PM CDT EXAM: ??DX LUMBAR SPINE 2-3 VIEWS Procedure Note Joshua Walters M.D. - 03/07/2021Format ting of this note might be different from the original. EXAM: DX LUMBAR SPINE 2-3 VIEWS IMPRESSION: Osteopenia. Multilevel lumbar degenerati ve disc disease with scattered low-grade degenerative subluxa tions. Advanced lumbar facet arthropathy. Degenerative changes both S I joints. Bilateral THAs. Presumed injection granuloma right buttock. Vascu lar calcification. Amy FernandezSSharon IMG DIAGNOSTIC IMAGING PROCE JENY (ABNORMAL) Thyroid Function [place] (03/07/2021 8:12 AM CDT) P athologist Signature TSH, Sensitive 5.0 (H) 0.3 - 4.2 03/07/2021 DTL mIU/L 9:33 AM CDT Specimen Anatomical Collection Method Collection Time Receive d Time (Source) Location / / Volume Laterality Blood (Blood, 03/07/2021 8:12 AM 03/07/20 8:42 Venous) CDT AM CDT Amy FernandezSSharon LAB BLOOD ADD-ON Performing Organization Address City/State/ZIP Code Phon e Number [facility] - [address] [place], [place] [address] [facility] [place] [address] Laboratories-[facility] [address] (ABNORMAL) Comprehensive Metabolic Panel (03/07/2021 8:12 AM [...] 03/07/2021 DTL Black/ mL/min/BSA 9:25 AM CDT Guyanese Comment: ----ADDITIONAL INFORMATION---- Estimated GFR calculated using [...] 03/07/20 8:44 Venous) CDT AM CDT Amy Ly LAB BLOOD ADD-ON Performing Organization Address City/State/ZIP Code Phon e Number [facility] - [address] [place], [place] [address] [facility] [place] [address] [facility] [address] Vitamin E Level (03/07/2021 8:12 AM CDT) athologist Signature A-Tocopherol, 13.3 5.5 - 17.0 03/08/2021 [facility] Vitamin E mg/L 5:31 PM CDT Comment: ----ADDITIONAL INFORMATION---- This test was developed and its performa nce characteristics determined by [facility] in a manner consistent with CLIA requirements. This test has not been cleared or approved by the U.S. Delisa d and Drug Administration. Specimen Anatomical Collection Method Collection Time Receive d Time (Source) Location / / Volume Laterality Blood (Blood, 03/07/2021 8:12 AM 03/07/20 4:52 Venous) CDT PM CDT Amy FernandezSSharon LAB BLOOD NON ADD-ON Performing Organization Address City/State/ZIP Code Phon e Number [facility] [address] [place] [phone] [facility] [place] [address] Laboratory Medicine and Pathology [address] [place] [address] Dr. [place] Sedimentation Rate (03/07/2021 8:12 AM CDT) Analysis Performed At Patho logist Time Signature Sedimentation 27 3 - 28 03/07/2021 DTL Rate, B mm/h 10:12 AM CDT Specimen Anatomical Collection Method Collection Time Receive d Time (Source) Location / / Volume Laterality Blood (Blood, 03/07/2021 8:12 AM 03/07/20 8:37 Venous) CDT AM CDT Amy FernandezSSharon LAB BLOOD ADD-ON Performing Organization Address City/[facility]/ZIP Code Phon e Number [facility] - [address] [place], [place] [address] [facility] [place] [address] [facility] [address] Pernicious Anemia [place] (03/07/2021 8:12 AM CDT) P athologist Signature Vitamin B12 416 180 - 914 03/07/2021 [facility] Assay, S ng/L 2:05 PM CDT Specimen Anatomical Collection Method Collection Time Receive d Time (Source) Location / / Volume Laterality Blood (Blood, 03/07/2021 8:12 AM 03/07/20 Venous) CDT 11:23 AM CDT Amy FernandezSSharon LAB BLOOD NON ADD-ON Performing Organization Address City/State/ZIP Code Phon e Number [facility] [address] [place] [address] [facility] [address] Laboratory Medicine and Pathology [address] [place] [address] Dr. [place] Connective Tissue Diseases [place] (03/07/2021 8:12 AM CDT) athologist Signature Antinuclear Ab, 0.3 <=1.0 03/07/2021 [facility] S (Negative) 8:46 PM CDT U Comment: ----ADDITIONAL INFORMATION---- Method: Enzyme-linked immunoassay using HEp-2 nuclear extract supplemented with purified antig ens. Cyclic Citrullinated <15.6 <20.0 (Negative) U 03/07/2021 7:51 PM [facility] Peptide Ab, S CDT Interpretation SEE COMMENT 03/07/2021 8:46 PM [facility] CDT Comment: Tests for antibodies to dsDNA and LIANNE an tigens are not performed automatically unless the SEA r esult is > or = 3.0 U. ??Studies performed at [facility] indicate that positive SEA results <3.0 U are rarely a ccompanied by positive second order tests. Specimen Anatomical Collection Method Collection Time Receive d Time (Source) Location / / Volume Laterality Blood (Blood, 03/07/2021 8:12 AM 03/07/20 Venous) CDT 10:59 AM CDT Amy Ly LAB BLOOD ADD-ON Performing Organization Address City/State/ZIP Code Phon e Number [facility] [address] [place], [place] [address] [place] [address] [place] [address] Laboratory Medicine and Pathology [address] [place] CBC with Differential, Blood (03/07/2021 8:12 AM CDT) athologist Signature Hemoglobin 12.6 11.6 - 03/07/2021 [...] Organization Address City/State/ZIP Code Phon e Number [facility] - [address] [place], [place] [address] [facility] [place] [address] [facility] [address] [facility] HIV-1/-2 Ag and Ab Screen, Plasma (03/07/2021 8:12 AM CDT) P athologist Signature HIV-1/-2 Ag Negative Negative 03/07/2021 [facility] and Ab Screen, 11:51 AM CDT P [...] - BLOOD ORD ERABLES Performing Organization Address City/[facility]/ZIP Code Phon e Number [facility] [address] [place] [phone] [facility] [facility] [place] [address] Laboratory Medicine and Pathology [address] [place] [address] Dr. [place] Co[place] (03/07/2021 8:12 AM CDT) athologist Signature [place], S 1.12 0.75 - 1.45 03/07/2021 2:04 [facility] mcg/mL PM CDT Comment: ----ADDITIONAL INFORMATION---- This test was developed and its performa nce characteristics determined by [facility] in a manner consistent with CLIA requirements. This test has not been cleared or approved by the U.S. Delisa d and Drug Administration. Specimen Anatomical Collection Method Collection Time Receive d Time (Source) Location / / Volume Laterality Blood (Blood, 03/07/2021 8:12 AM 03/07/20 Venous) CDT 10:58 AM CDT Amy FernandezSSharon LAB BLOOD NON ADD-ON Performing Organization Address City/[facility]/ZIP Code Phon e Number [facility] [address] [place] [phone] [address] [facility] [place] [address] Laboratory Medicine and Pathology [address] [place] [address] Dr. [place] Hemoglobin A1c (03/07/2021 8:12 AM CDT) athologist Signature Hemoglobin A1c, 5.6 4.0 - 5.6 03/07/2021 DT B % 9:56 AM CDT Specimen Anatomical Collection Method Collection Time Receive d Time (Source) Location / / Volume Laterality Blood (Blood, 03/07/2021 8:12 AM 03/07/20 8:37 Venous) CDT AM CDT Amy FernandezSSharon LAB BLOOD ADD-ON Performing Organization Address City/State/ZIP Code Phon e Number [facility] - [address] [place], [place] [address] [place] [address] [facility] [address] documented in this encounter Visit Diagnoses Diagnosis Foot Drop Right - Primary Neuropathy Peripheral Neuropathy Peripheral Foot Drop Right documented in this encounter Additional Health Concerns Assessment Noted Time PHQ-9 Depression Total Score: 20 04/21/2015 3:12 PM CD T documented as of this encounter
--- OUTSIDE RECORDS SUMMARY | 2022-10-07 10:46 | XMS_ITS | Encounter Summary ---
:1935 Author Organization [facility] Address [address] [place] [address] Care Team Providers Name Role Phone Unavailable Primary Care Provider Unavailable Reason for Referral Outpatient (Routine) - Closed Specialty Diagnoses / Procedures Referred By Contact Refer red To Contact Endocrinology Diagnoses Morbid Obesity Body Mass Index 40.0-44.9 Adult ([facility]) [facility] [address] [place] [address] Referral ID Status Reason Start Date Expiration Date Visits Requ ested Visits Authorized [id number] Closed 03/22/2021 03/22/2022 1 1 Outpatient (Routine) - Closed Specialty Diagnoses / Procedures Referred By Contact Refer red To Contact Nutrition Diagnoses Morbid Obesity Body Mass Index 40.0-44.9 Adult ([facility]) Phuong Portillo M.D. [facility] [address] [place] [address] Referral ID Status Reason Start Date Expiration Date Visits Requ ested Visits Authorized [id number] Closed 03/22/2021 03/22/2022 1 1 Outpatient (Routine) - Closed Specialty Diagnoses / Procedures Referred By Contact Refer red To Contact Sleep Medicine Diagnoses Obstructive Sleep Apnea Adult Phuong Portillo [facility] Evette [address] [place], [place] [phone] Referral ID Status Reason Start Date Expiration Date Visits V isits Requested Authorized [id number] Closed Specialty 03/22/2021 03/22/2022 1 1 Services Required Outpatient (Routine) - Closed Specialty Diagnoses / Procedures Referred By Contact Refer red To Contact Diagnoses Edema Leg Thrombosis Deep Vein Personal History Phuong Portillo [facility] Procedures US Lower Extremity Venous Insufficiency Bilateral M.DSharon [address] [place] [address] Referral ID Status Reason Start Date Expiration Date Visits Requ ested Visits Authorized [id number] Closed 03/22/2021 03/22/2022 1 1 Outpatient (Routine) - Closed Specialty Diagnoses / Procedures Referred By Contact Refer red To Contact Diagnoses Edema Leg Thrombosis Deep Vein Personal History Phuong Portillo M.D. [facility] Procedures Venous Lower Extremity - Hemodynamic Study [address] [place] [address] Referral ID Status Reason Start Date Expiration Date Visits Requ ested Visits Authorized [id number] Closed 03/22/2021 03/22/2022 1 1 Outpatient (Routine) - Closed Specialty Diagnoses / Procedures Referred By Contact Refer red To Contact Vascular Medicine Diagnoses Edema Leg Thrombosis Deep Vein Personal History Phuong Portillo [facility] [place] [address] [place] [address] Referral ID Status Reason Start Date Expiration Date Visits Requ ested Visits Authorized [id number] Closed 03/22/2021 03/22/2022 1 1 Outpatient (Routine) - Closed Specialty Diagnoses / Procedures Referred By Contact Refer red To Contact Diagnoses Dyspnea On Exertion Phuong Portillo M.D. [facility] Procedures Cardiopulmonary (VO2) Exercise Test [address] [place], [place] [phone] Referral ID Status Reason Start Date Expiration Date Visits Requ ested Visits Authorized [id number] Closed 03/22/2021 03/22/2022 1 1 Outpatient (Routine) - Closed Specialty Diagnoses / Procedures Referred By Contact Refer red To Contact Diagnoses Hypertensive Chronic Kidney Disease (CKD) Stage 3b Glomerular Filtration Rate (GFR) 30 To 44 (HCC) Phuong Portillo M.D. [facility] Procedures US Kidneys Bilateral with Bladder [address] [place], [place] [address] Referral ID Status Reason Start Date Expiration Date Visits Requ ested Visits Authorized [id number] Closed 03/22/2021 03/22/2022 1 1 Outpatient (Routine) - Closed Specialty Diagnoses / Procedures Referred By Contact Refer red To Contact Nephrology and Diagnoses Hypertensive Chronic Kidney Disease (CKD) Stage 3b Glomerular Filtration Rate (GFR) 30 To 44 (HCC) Phuong Portillo [facility] Raza Corley M.D. [address] [place] [address] Referral ID Status Reason Start Date Expiration Date Visits Requ ested Visits Authorized [id number] Closed 03/22/2021 03/22/2022 1 1 Outpatient (Routine) - Closed Specialty Diagnoses / Procedures Referred By Contact Refer red To Contact Diagnoses Edema Leg Dyspnea On Exertion Phuong Portillo M.D. [facility] Procedures Six Minute Walk [address] [place] [address] Referral ID Status Reason Start Date Expiration Date Visits Requ ested Visits Authorized [id number] Closed 03/22/2021 03/22/2022 1 1 Outpatient (Routine) - Closed Specialty Diagnoses / Procedures Referred By Contact Refer red To Contact Diagnoses Edema Leg Dyspnea On Exertion Phuong Portillo [facility] Procedures Echo Transthoracic (TTE) [facility] [address] [place], [place] [address] Referral ID Status Reason Start Date Expiration Date Visits Requ ested Visits Authorized [id number] Closed 03/22/2021 03/22/2022 1 1 Outpatient (Routine) - Closed Specialty Diagnoses / Procedures Referred By Contact Refer red To Contact Diagnoses Edema Leg Dyspnea On Exertion Phuong Portillo M.D. [facility] Procedures ECG 12 Lead [address] [place], [place] [address] Referral ID Status Reason Start Date Expiration Date Visits Requ ested Visits Authorized [id number] Closed 03/22/2021 03/22/2022 1 1 Outpatient (Routine) - Closed Specialty Diagnoses / Referred By Contact Referred To Contact Procedures Cardiovascular Diseases / Diagnoses Edema Leg Dyspnea On Exertion Phuong Portillo [facility] Cardiovascular Disease Evette Corley [address] [place] [address] Referral ID Status Reason Start Date Expiration Date Visits Requ ested Visits Authorized [id number] Closed 03/22/2021 03/22/2022 1 1 Reason for Visit Reason Comments Internal Referral Hypertension, lower extremit y edema. Fatigue Outpatient (Routine) - Closed Specialty Diagnoses / Procedures Referred By Contact Refer red To Contact Internal Medicine / Diagnoses Edema Leg [facility] [address] [place] [phone] Referral ID Status Reason Start Date Expiration Date Visits Requ ested Visits Authorized [id number] Closed 03/13/2021 03/13/2022 1 1 Encounter Details Date Type Department Care Team Description 03/22/2021 Comprehensive Visit Division of General Juanito Rodriguez M.D. [address] [place] [phone] Hypertensive Chronic Kidney Disease (CKD ) Stage 3b Glomerular Filtration Rate (GFR) 30 To 44 ([facility]) (Primary Dx); Internal Medicine Phuong Portillo M.D. [address] [place] [phone] Edema Leg; in [place], Thrombosis Shanthi p Vein Personal History; [place] Dyspnea On Exertion; [address] [facility] Morbid Obesity Body Mass Ind ex 40.0-44.9 Adult ([facility]); [place], [place] Obstructive Sl eep Apnea Adult; [phone] Screening Examination For Vi ral Disease; [phone] History Of Fall ing Social History Tobacco Use Types Packs/Day Years [...] Sign Reading Time Taken Comments Blood Pressure 132/64 03/22/2021 12:46 PM CDT Pulse 66 03/22/2021 12:46 PM CDT Temperature - - Respiratory Rate - - Oxygen Saturation - - Inhaled Oxygen Concentration - - Weight 118 kg (259 lb 4.2 oz) 03/22/2021 12:18 PM With shoes on. CDT Height 165.9 cm (5' 5.32) 03/22/2021 12:18 PM With ephraim es on. CDT Body Mass Index 42.73 03/22/2021 12:18 PM CDT documented in this encounter H&P Notes Phuong Portillo M.D. - 03/22/2021 1:00 PM CDT REFERRAL Juanito Rodriguez M.D. REASON FOR CONSULT Patient seen at [facility] Hypertension, chronic kidney disease, and lower extremity edema HISTORY OF PRESENT ILLNESS Ms. Vielka Yap is an 85-year-old woman with a history of chronic low back pain, historyof right peroneal neuropathy (status post surgical decompression in 2007) and right footdrop, length-dependent peripheral neuropathy, status post left total hip arthroplasty 11/2019, status post right to aston knee replacement in 2005 (she notes it took 5 years to heal after), history of ruptured diverticulitis s/p partial colectomy in 2005, history of duodenal ulcer at 17 years old in the setting of life stressors, dysthymia, seborrheic keratosis, history of diarrhea and minor fecal incontinence, and mixed urinary incontinence here for further evaluation of hypertension, chronic kidney disease, and lower extremity edema. Patient notes the majority of her pain is caused by the swelling/lymphedema in her body and she notes she does not know how to make it better. She is unsure if the lymphedema could be due to her heart. She had a clot in her right foot at 22 years old. She has been unable to wear regular shoes for 3 years. She was started on furosemide in her 40's. Recently she has also developed left leg swelling. She had weaned herself off furosemide, but she restarted furosemide 3 years ago due to lymphedema which she notes is painful and makes her neuropathy worse. She does not feel furosemide has been effective recently. She takes furosemide 3-4 days per week. This was increased to 40 mg 6 months ago. She stopped wearing compression stockings as she felt they were painful and not really helping her. She wears some compression socks with copper, those do not cause her pain but she admits they have minimalcompression. She notes some dyspnea to get in and out of bed, otherwise she denies dyspnea or shortness of breath. She denies chest pain. She notes significant diaphoresis with 20-30 minutes of vacuuming. She subsequently has to lay down due to exhaustion. She now rarely vacuums and limits it to 10 minutes. She has not been evaluated by cardiology. Her mother from an enlarged heart and a stroke.She denies palpitations, dizziness, or history of syncope. 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 She feels previously when she would exercise she had decreased urination. She has been using an air fryer and avoiding salty food, but notes it has not been improving the swelling in her legs. Per patient her last cardiac stress test was approximately 14 years ago. She recently started taking calcium and magnesium supplements. She previously took NSAID's, but she stopped at the end 2019. She notes she gets cold very easily and frequently. She notes constipation alternating with loose stools. She notes more loose stools which is preceded by abdominal cramping. She had a glass of wine for 3 nights last week which triggered GERD and pain. She took Nexium with some relief. She has stopped drinking wine. She is also unsure if she was eating larger portions which can trigger her GERD symptoms. She notes previously she was eating a lot because she felt she was starving, she forced herself to start eating less and notes she did well. She had lost 30 lbs over 4 years and recently she has been regained 5 lbs over the last month, she attributes to possible leg swelling. Patient has the [facility] weight loss book, but she is interested in further assistance to help her to lose weight. She drinks a lot of fluid due to dry mouth. She breathes through her mouth at night and frequently gets up to drink water. She uses a lozenge 2-3 times overnight due to mouth dryness. She estimates shedrinks 8 glasses of water per day. She drinks 2 cups of coffee in the morning. They recently got an adjustable bed which has kept her from being able to wear her CPAP in the last 1.5 years. The bed is higher and notes it is difficult to get in and out of the bed. She notes she does not have a table that is close enough for the CPAP hose, so she stopped using. She sleeps laying flat. The notes the mattress helps her. She is interested in a ???implantable?? treatment option for her obstructive sleep a pnea. She has had lumbar epidural injections x 3 recently. Her last injection was successful and she has not needed pain medicine in the last 5-6 months. She notes acetaminophen does not help with her pain. She is taking celecoxib twice daily. She has tried to avoid bending, but remains busy with housework.She avoids stairs due to imbalance in her walking. She uses a walker at home for stability. She notes being more active since her left hip replacement healed in 2019. She stops activity when it flares her pain. She does not have help around the house except for her . She can't reach her feet due to the swelling and she needs help to put on her shoes and to get dressed. She has not noticed a difference with her incontinence whether or not she takes oxybutynin. She has been taking only once every other day. Her in 1975 after being bedridden for 7 years, she was 39 years old and had 2 children.She was subsequently diagnosed with depression and has been on depression medication since. She oncetried to stop antidepressants, but notes she had personality changes and irritability. She notes shehas been on bupropion for over 40 years. She feels her depression is well controlled. 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 She notes doing this has really helped her to feel better. 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 She had to stop working due to difficulties ascending stairs. 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 She gets pleasure out of being active or helping people. 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 She remarried in 2006. She tries not to stress herself as she compares the stress to when her 1st which helps her keep all other stress in perspective. Her 2nd was an alcoholic until 1-2 years ago after a pulmonary embolism and near experience, that has been helpful for her since he stopped drinking. Her son lives with them at times, he has also struggled with alcohol in thepast so they do not keep alcohol around the house. Her sister had kidney cancer and had a nephrectomy. Three of her sisters had hysterectomies due to cancer, she believes uterine. She is the oldest of 4 girls. VITAL SIGNS BP 132/64 (BP Location: Left arm, Patient Position: Sitting, Cuff Size: Large) Pulse 66 Ht 165.9cm Comment: With shoes on. Wt 118 kg Comment: With shoes on. BMI 42.73 kg/m?? Body mass index is 42.73 kg/m??. PHYSICAL EXAM General: Age-appropriate appearing woman in no acute distress at this time. Alert and oriented to person, place, and time. Head: Atraumatic. Eyes: Sclerae anicteric. Right pupil smaller than left. ENT: Normal external ear canals and tympanic membranes. No palpable cervical lymphadenopathy. Heart: Regular rate and rhythm. Normal S1, S2. I was unable to appreciate any S3, gallops, or murmurs. Lungs: Clear to auscultation bilaterally. No wheezes, rales, or rhonchi. Abdomen: Soft, nondistended, nontender. Normal bowel sounds were heard in all four quadrants. I was unable to appreciate any hepatosplenomegaly. Extremities: No cyanosis or clubbing. Bilateral lower extremity edema, most notable on right lower leg and right dorsal foot. Neuro: Cranial nerves II through XII are grossly intact. Bilateral upper and left lower extremity proximal and distal muscle strength 5/5. Right lower extremity proximal and distal muscle strength 3-4/5. Bilateral biceps, brachialis, and knee reflexes +1-2/4. Patient ambulates with an unsteady gait. Labs on March 07, 2021 showed TSH of 5.0, negative thyroid peroxidase antibody, and normal free T4. BUN 38, creatinine 1.78, estimated GFR 26. Hemoglobin A1c 5.6. ASSESSMENT / PLAN # Leg Edema # History of right lower leg/foot DVT # Hypertension # Chronic kidney disease # Class 3 Obesity # Elevated TSH (normal for age) # Obstructive Sleep Apnea not using CPAP # Dyspnea on exertion # Elevated BUN/Creatinine ratio # Dry mouth Recent lab results concerning for dehydration. Encouraged continued adequate hydration and to hold furosemide for now. Patient referred to Nephrology Chronic Kidney Disease clinic. Continue to completely avoid NSAID's. She plans to decrease/avoid celecoxib as well. Leg edema likely due to vascular insufficiency. Patient referred to vascular and for bilateral lowerextremity venous insufficiency ultrasounds to assess. Encouraged her to resume compression stockingsif tolerated. Weight loss recommended. Patient referred to Cardiovascular Medicine for further evaluation of dyspnea and history of significant diaphoresis and fatigue with exertion. Chest x-ray, ECG, TTE, BNP, cardiopulmonary (VO2) exercise testing with cycle, 6 minutes walk test, and PFTs ordered. Encouraged patient to use her CPAP. Since she has not been using recently, will check overnight oximetry and referred to Sleep Medicine Clinic for further evaluation as patient interested in an ???implantable?? option. Oxybutynin likely contributing to dry mouth (in addition to [place]), advised her to stop taking if not helping her symptoms. Hemoglobin A1c was 5.6 on March 07, 2021. Patient referred to Endocrinology Weight Management clinicand staff engineer. Comprehensive lab testing ordered. TSH mildly elevated, acceptable for her age. Normal free T4 and negative TPO antibodies. Repeat TSH and free T4 in 6 months locally. # Chronic lower back pain # History of right peroneal neuropathy (status post surgical decompression in 2007) and right footdrop # Length-dependent peripheral neuropathy # Status post left total hip arthroplasty 11/2019 # Status post right total knee replacement in 2005 Patient was recently seen by Neurology. Patient is scheduled for Spine consultation on March 27, 2021.She is also scheduled for Physical Medicine and Rehab Neurological consult and Lymphedema consult onMay 2020. # GERD # History of ruptured diverticulitis s/p partial colectomy in 2005 # History of duodenal ulcer at 17 years old in the setting of life stressors # Constipation alternating with loose stools and abdominal cramping Encouraged her to avoid alcohol. Symptoms have resolved currently. Patient was seen by Gastroenterology for similar symptoms in January 2017. This can be further evaluated in the future if persistent, bothersome, or recurrent symptoms. # Urinary incontinence Encouraged her to stop furosemide and avoid oxybutynin if not helping. # History of Depression Well controlled on bupropion per patient, encouraged her to continue the same. Orders Placed This Encounter Procedures ??? DX Chest AP or PA and Lateral 2 Views ??? US Kidneys Bilateral with Bladder ??? US Lower Extremity Venous Insufficiency Bilateral ??? NT-Pro B-Type Natriuretic Peptide (BNP) ??? Comprehensive Metabolic Panel ??? Uric Acid ??? Urinalysis with Microscopic: Urine, Midstream ??? Renal Function Panel ??? Albumin, Random, Urine ??? Protein/Creatinine Ratio, Random, Urine ??? 25-Hydroxyvitamin D2 and D3 ??? Cystatin C with Estimated GFR, S ??? Parathyroid Hormone (PTH) ??? Magnesium ??? Cardiovascular Disease - Unexplained dyspnea consult (clinic) ??? Nephrology and Hypertension - Chronic kidney disease consult (clinic) ??? Vascular Medicine - Venous / varicose vein/sclero consult (clinic) ??? Sleep Medicine - General consult (clinic) ??? Nutrition - Weight management medical nutrition therapy consult (clinic) ??? Endocrinology - Weight management consult (clinic) ??? Six Minute Walk ??? Cardiopulmonary (VO2) Exercise Test ??? ECG 12 Lead ??? Echo Transthoracic (TTE) ??? Pulmonary Function Tests ??? PUL Home Overnight Oximetry Patient will follow-up with me after evaluation as above. I met [id number] with the patient and had a lengthy discussion. I have provided the rationale for my recommendations and the plan of management. It is a pleasure being part of the care for Ms. Howard Yap. documented in this encounter Plan of Treatment Scheduled Referrals Name Type Priority Associated Order Schedule Diagnoses Cardiovascular Disease Outpatient Routine Edema Leg Expected: - Unexplained dyspnea Referral Dyspnea On Exertion 03/22/2021 consult (clinic) (Approximat e), Expires: 03/22/2024 Nephrology and Outpatient Routine Hypertensive 1 Occurrences Hypertension - Chronic Referral Chronic Kidney sta rting kidney disease consult Disease (CKD) Stag e 03/22/2021 until (clinic) 3b Glomerular 03/22/2024 Filtration Rate (GFR) 30 To 44 ([facility]) Vascular Medicine - Outpatient Routine Edema Leg Expected: Venous / varicose Referral Thrombosis Deep 021 vein/sclero consult Vein Personal (Approx imate), (clinic) History Expires: 03/22/2024 Sleep Medicine - Outpatient Routine Obstructive Sleep Expect ed: General consult Referral Apnea Adult 03/22/2021 (clinic) (Approximate), Expires: 03/22/2024 Nutrition - Weight Outpatient Routine Morbid Obesity Body Ex pected: management medical Referral Mass Index 1 nutrition therapy 40.0-44.9 Adult (Approx imate), consult (clinic) ([facility]) Expires: 03/22/2024 Endocrinology - Weight Outpatient Routine Morbid Obesity Bod y Expected: management consult Referral Mass Index 1 (clinic) 40.0-44.9 Adult (Approximate ), ([facility]) Expires: 03/22/2024 documented as of this encounter Results Six Minute Walk (04/02/2021 [...] test. Phuong Portillo M.D. CV STRESS PROCEDURES CARDIOPULMONARY (VO2) EXERCISE TEST (03/30/2021 4:11 PM CDT) Specimen (Source) Anatomical Collection Method Collection Time Re ceived Time Location / / Volume Laterality 03/30/2021 3:07 PM CDT Narrative CV MERGE - 03/30/2021 4:49 PM CDT This result has an attachment that is no t available. See PDF For Result Procedure Note Ricardo Teague M.D., Ph.D. - 03/30/2021 See PDF For Result Phuong Portillo M.D. CV STRESS PROCEDURES Performing Organization Address City/State/ZIP Code Phon e Number CV MERGE CV MERGE NA US Lower Extremity Venous Insufficiency Bilateral (03/30/2021 [...] amplitude of reflux. Procedure Note Renee Jean Baptiset M.D. - 03/30/2021Formatti ng of this note [...] Exam was performed with the patient faheem ding and the leg being evaluated in a [...] report for details. Phuong BACH US PROCEDURES US Kidneys Bilateral with Bladder (03/30/2021 11:18 [...] disease. No hydronephrosis. Phuong BACH US PROCEDURES Pulmonary Function Tests (03/28/2021 12:34 PM CDT) Analysis Performed At Patho logist Time Signature VC MAX POST 2.11 L 03/28/2021 [place] 4:20 PM CDT SUITE PostFVC 2.11 L 03/28/2021 [place] 4:20 PM CDT SUITE PostFEV1 1.51 L 03/28/2021 [facility] 4:20 PM CDT SUITE FEV1/FVC POST 71.88 % 03/28/2021 [place] [facility] 4:20 PM CDT SUITE FEF 25-75 % 0.96 L/s 03/28/2021 [place] [facility] [facility] 4:20 PM CDT SUITE PEF POST 5.55 L/s 03/28/2021 [place] 4:20 PM CDT SUITE FET POST 6.02 sec 03/28/2021 [place] 4:20 PM CDT SUITE DLCO SINGLE 16.28 ml/(min*mm 03/28/2021 [place] BREATH POST Hg) 4:20 PM CDT SUITE DLCOC SINGLE 16.70 ml/(min*mm 03/28/2021 [place] BREATH POST Hg) 4:20 PM CDT SUITE HB 12.60 g(Hb)/dL 03/28/2021 [place] [facility] 4:20 PM CDT [address] VA SINGLE 4.31 L 03/28/2021 [place] [facility]ATH [facility] 4:20 PM CDT SU[address] VC MAX PRE 1.85 L 03/28/2021 [facility] 4:20 PM CDT SUITE FVC 1.76 L 03/28/20[facility] PM CDT SUITE FEV1 1.34 L 03/28/2021 [facility] 4:20 PM CDT SUITE FEV1/FVC 76.00 % 03/28/2021 [facility] 4:20 PM CDT SUITE BRM78-07% 1.00 L/s 03/28/2021 [place] [place] 4:20 PM CDT SUITE PEF PRE 5.74 L/s 03/28/2021 [facility] 4:20 PM CDT SUITE FET PRE 3.42 sec 03/28/2021 [facility] 4:20 PM CDT SUITE SUBSTANCE POST Albuterol 03/28/2021 [facility] 4:20 PM CDT SUITE DOSE POST 2 Puff 03/28/2021 [facility] 4:20 PM CDT SUITE % PRED VC MAX 75 % % 03/28/2021 [place] [place] [facility] 4:20 PM CDT SUITE FVC% 71 % % 03/28/2021 [facility] 4:20 PM CDT SUITE FEV1% 72 % % 03/28/2021 [facility] 4:20 PM CDT SUITE % PRED 99 % % 03/28/2021 [facility] FEV1/FVC 4:20 PM CDT SUITE % PRED FEF 68 % % 03/28/2021 [facility] 25-75% 4:20 PM CDT SUITE % PRED PEF 111 % % 03/28/2021 [facility] [place] 4:20 PM CDT SU[address] PRED VC MAX 2.46 03/28/2021 [place] 4:20 PM CDT SU[address] PRED FVC 2.46 03/28/2021 [place] 4:20 PM CDT SU[address] PRED FEV 1 1.86 03/28/2021 [place] 4:20 PM CDT SUITE PRED FEV1/FVC 76.6 03/28/2021 [place] 4:20 PM CDT SU[address] PRED FEF 1.47 03/28/2021 [place] 25-75% 4:20 PM CDT SU[address] PRED PEF 5.2 03/28/2021 [place] 4:[address] PM [address] PRED DLCO 18.7 03/28/2021 [place] 4:20 PM CDT SU[address] PRED DLCOc 18.7 03/28/2021 [facility] 4:20 PM CDT SUITE Specimen (Source) Anatomical Collection Method Collection Time Re ceived Time Location / / Volume Laterality 03/28/2021 12:34 PM CDT Narrative This result has an attachment that is no t available. Phuong Portillo M.D. PFT ORDERABLES Performing Organization Address City/State/ZIP Code Phon e Number [facility] NA (TTE) 2D ECHO DOPPLER COLOR (03/28/2021 8:52 AM CDT) [facility] Method Time Signature Ejection Fraction 68 MC [...] complete report, see the Order-L evel Documents. Narrative 03/28/2021 9:28 AM CDT For the complete report, see the Order-L [...] Documents. Phuong Portillo M.D. CV ECHO PROCEDURES SARS CoV-2 RNA, PCR, Varies Asymptomatic (03/27/2021 7:57 AM CDT) [facility] Method Time Signature SARS CoV-2 Swab, 03/27/2021 [facility] RNA, PCR, Nasopharynx 11:29 AM Source CDT SARS CoV-2 Undetected Undetected 03/27/2021 [facility] RNA, PCR 11:29 AM CDT Comment: SARS-CoV-2 RNA absent. This result does not rule out COVID-19 in the patient, as the sensitivity of the test depends o n the timing of the specimen collection and quality of the specimen. Result should be correlated with patient's history and clinical presentat ion. ----ADDITIONAL INFORMATION---- This RT-PCR test has received Emergency Use Authorization (EUA) by the U.S. Food and Drug Administration an d is used per chemical sprayer's instructions. Performance characteristics were verified by [facility] in a manner consistent with CLIA requirements. Visit the CDC website: https://www.cdc.g ov/coronavirus/ for the most recent guidelines on Coron avirus testing. Fact Sheet for Healthcare Providers: https://www.fda.gov/media/719802/downloa d Fact Sheet for Patients: https://www.fda.gov/media/244508/downloa d Specimen Anatomical Collection Method Collection Time Receive d Time (Source) Location / / Volume Laterality Varies 03/27/2021 7:57 AM 8:08 (Nasopharynx) CDT AM CDT Phuong Portillo M.D. LAB MICROBIOLOGY - GENERAL O RDERABLES Performing Organization Address City/State/ZIP Code Phon e Number [facility] - [address] [place], [place] [address] [facility] [place] [address] Laboratories-[facility] [address] Venous Lower Extremity - Hemodynamic Study (03/23/2021 [...] comparison. Phuong Portillo M.D. CV VASCULAR PROCEDURES ECG 12 Lead (03/23/2021 7:48 AM CDT) P athologist Signature Ventricular Rate 66 BPM MUSE ECG/Min [place] Interval 252 ms MUSE QRSD Interval 82 ms MUSE QT Interval 402 ms MUSE QTC Interval 421 ms MUSE P [place] 65 degrees MUSE R [place] 12 degrees MUSE T Wave [place] 55 degrees MUSE Specimen Anatomical Collection Method Collection Time Receive d Time (Source) Location / / Volume Laterality 03/23/2021 7:48 AM 7:51 CDT AM CDT Impressions MUSE - 03/23/2021 7:51 AM CDT Sinus rhythm with 1st degree A-V block Otherwise normal ECG No previous ECGs available Reviewed by JEFFRY Cruz Narrative This result has an attachment that is no t available. Procedure Note Juanito Zepeda M.D. - 03/23/2021Form atting of this note might be different from the original. IMPRESSION: Sinus rhythm with 1st degree A-V block Otherwise normal ECG No previous ECGs available Reviewed by JEFFRY Cruz Phuong Portillo M.D. ECG ORDERABLES Performing Organization Address City/State/ZIP Code Phon e Number MUSE MUSE NA DX Chest AP or PA and Lateral [...] alcantara es of the shoulder joints. Phuong Portillo M.D. IMG DIAGNOSTIC IMAGING PROCE NICK Albumin, Random, Urine (03/22/2021 5:07 PM CDT) P athologist Signature Albumin, 16.2 mg/L 03/23/2021 DTL Random, U 9:34 AM CDT Comment: ----ADDITIONAL INFORMATION---- This test has been modified from the man ufacturer's instructions. Its performance characteri stics were determined by [facility] in a manner co nsistent with [...] M.D. LAB URINE ORDERABLES Performing Organization Address City/[facility]/ZIP [facility] Ph[place] e Number [facility] - [address] [place], [place] [address] [place] [address] Protein/Creatinine Ratio, Random, Urine (03/22/2021 4:14 [...] M.D. LAB URINE ORDERABLES Performing Organization Address City/[facility]/ZIP Code Phon e Number [facility] - [address] [place], [place] [address] [place], [place] [phone] [place] [address] Urinalysis with Microscopic: Urine, Midstream (03/22/2021 4:14 PM CDT) Analysis Performed At Patho logist Time Signature Source Midstream 03/22/2021 DTL 5:08 [...] Laterality Urine (Urine, 03/22/2021 4:14 PM 03/22/20 5:08 Midstream) CDT PM CDT Phuong Portillo M.D. LAB URINE ORDERABLES Performing Organization Address City/[facility] Phon e Number [facility] - [address] [place], [place] [address] [place] [address] [place], [place] [phone] [place] [address] (ABNORMAL) Magnesium (03/22/2021 4:02 PM CDT) P athologist Signature Magnesium, S 2.4 (H) 1.7 - 2.3 03/22/2021 DTL mg/dL 5:08 PM CDT Specimen Anatomical Collection Method Collection Time Receive d Time (Source) Location / / Volume Laterality Blood (Blood, 03/22/2021 4:02 PM 03/22/20 4:26 Venous) CDT PM CDT Phuong Portillo M.D. LAB BLOOD ADD-ON Performing Organization Address City/[facility] Phon e Number [facility] - [address] [place], [place] [address] [place] [phone] [place] [address] (ABNORMAL) Parathyroid Hormone (PTH) (03/22/2021 4:02 PM CDT) P athologist Signature Parathyroid 75 (H) 15 - 65 03/22/2021 DTL Hormone (PTH), S pg/mL 5:08 PM CDT Specimen Anatomical Collection Method Collection Time Receive d Time (Source) Location / / Volume Laterality Blood (Blood, 03/22/2021 4:02 PM 03/22/20 4:26 Venous) CDT PM CDT Phuong Portillo M.D. LAB BLOOD ADD-ON Performing Organization Address City/[facility]/ZIP Code Phon e Number [facility] - [address] [place], [place] [address] [facility] [place], [place] [phone] [place] [address] (ABNORMAL) Cystatin C with Estimated [...] - 1.45 mg/L 03/22/2021 8:29 PM CDT DTL Specimen Anatomical Collection Method Collection Time Receive d Time (Source) Location / / Volume Laterality Blood (Blood, 03/22/2021 4:02 PM 03/22/20 8:04 Venous) CDT PM CDT Phuong Portillo M.D. LAB BLOOD ADD-ON Performing Organization Address City/State/ZIP Code Phon e Number [facility] - [facility] [place] [address] [place], [place] [address] [facility] [place] [place] [address] Laboratories-[facility] [address] 25-Hydroxyvitamin D2 and D3 (03/22/2021 4:02 PM CDT) athologist Signature 25-Hydroxy D2 <4.0 ng/mL 03/23/2021 [facility] 8:32 PM CDT 25-Hydroxy D3 50 ng/mL 03/23/2021 [facility] 8:32 PM CDT 25-Hydroxy D 50 ng/mL 03/23/2021 [facility] Total 8:32 PM CDT Comment: ----REFERENCE VALUE---- 25-HYDROXY D TOTAL (D2+D3) Optimum level s in the healthy population are 20-50, patients with bone disease may benefit from higher levels within this r jordan. ----ADDITIONAL INFORMATION---- This test was developed and its performa nce characteristics determined by [facility] in a manner consistent with CLIA requirements. This test has not been cleared or approved by the U.S. Delisa d and Drug Administration. Specimen Anatomical Collection Method Collection Time Receive d Time (Source) Location / / Volume Laterality Blood (Blood, 03/22/2021 4:02 PM 03/23/20 8:05 Venous) CDT AM CDT Phuong Portillo M.D. LAB BLOOD ADD-ON Performing Organization Address City/State/ZIP Code Phon e Number [facility] [address] [place], [place] [address] [facility] [place] [address] Laboratory Medicine and Pathology [address] [...] 03/22/2021 DTL Black/ mL/min/BSA 4:56 PM CDT Singaporean Comment: ----ADDITIONAL INFORMATION---- Estimated GFR calculated using [...] M.D. LAB BLOOD ADD-ON Performing Organization Address City/[facility] Phon e Number [facility] - [address] [place], [place] [address] [facility] [place] [place] [address] (ABNORMAL) Uric Acid (03/22/2021 4:02 PM CDT) P athologist Signature Uric Acid, S 10.9 (H) 2.7 - 6.1 03/22/2021 DTL mg/dL 5:08 PM CDT Specimen Anatomical Collection Method Collection Time Receive d Time (Source) Location / / Volume Laterality Blood (Blood, 03/22/2021 4:02 PM 03/22/20 4:26 Venous) CDT PM CDT Phuong Portillo M.D. LAB BLOOD ADD-ON Performing Organization Address City/[facility] Phon e Number [facility] - [address] [place], [place] [address] [place] [phone] [place] [address] (ABNORMAL) Comprehensive Metabolic Panel (03/22/2021 4:02 PM [...] 03/22/2021 DTL Black/ mL/min/BSA 4:56 PM CDT Singaporean Comment: ----ADDITIONAL INFORMATION---- Estimated GFR calculated using [...] City/State/ZIP Code Phon e Number [facility] - [address] [place], [place] [address] [facility] [place] [address] [facility] [address] NT-Pro B-Type Natriuretic Peptide (BNP) (03/22/2021 4:02 PM CDT) P athologist Signature NT-Pro BNP 250 <=263 pg/mL [...] City/State/ZIP Code Phon e Number [facility] - [address] [place], [place] [address] [facility] [place] [address] Laboratories-[facility] [address] PUL Home Overnight Oximetry (03/22/2021) Specimen (Source) [...] Address City/State/ZIP Code Phon e Number [place] [facility] documented in this encounter Visit Diagnoses Diagnosis Hypertensive Chronic Kidney Disease (CKD ) Stage 3b Glomerular Filtration Rate (GFR) 30 To 44 (HCC) - Primary Edema Leg Thrombosis Deep Vein Personal History Dyspnea On Exertion Morbid Obesity Body Mass Index 40.0-44.9 Adult (HCC) Obstructive Sleep Apnea Adult Screening Examination For Viral Disease History Of Falling Obstructive Sleep Apnea Adult Edema Leg Dyspnea On Exertion Edema Leg Thrombosis Deep Vein Personal History Edema Leg Dyspnea On Exertion Edema Leg Thrombosis Deep Vein Personal History Hypertensive Chronic Kidney Disease (CKD ) Stage 3b Glomerular Filtration Rate (GFR) 30 To 44 (HCC) Dyspnea On Exertion Edema Leg Dyspnea On Exertion documented in this encounter Additional Health Concerns Assessment Noted Time PHQ-9 Depression Total Score: 15 03/22/2021 12:16 PM C DT documented as of this encounter
--- OUTSIDE RECORDS SUMMARY | 2022-10-07 10:46 | XMS_ITS | Encounter Summary ---
:1935 Author Organization [facility] Address [address] [place] [address] Care Team Providers Name Role Phone Unavailable Primary Care Provider Unavailable Encounter Details Date Type Department Care Team Description 03/07/2021 Hospital Encounter Department of Alvin, Neuropat hy Peripheral; Radiology, Amy Reyes, Foot Drop [facility], in [place], [place] [address] [facility] [address] [place] [phone] Social History Tobacco Use Types Packs/Day Years [...] or relatives? How often do you attend jewish or 1 to 4 times per year 03/2022 jew services? Do you belong to any clubs or No 02/19/2022 organizations such as jewish groups, unions, fraternal or athletic groups, or [...] or slept in a penitentiary (including now)? Sex Assigned at Date Recorded [...] by 0 acid-epa 120-180 mg mouth daily. Brea 3 capsule (strength unknown) esomeprazole (NexIUM) Take [...] Name Priority Date/Time Associated Comments Diagnosis DX LUMBAR SPINE RAD - Routine 03/07/2021 12:10 Neuropathy Results for this 2-3 VIEWS (most inpatients PM CDT Peripheral procedure are in and all Foot Drop Right the results outpatients) section. documented in this encounter Results DX Lumbar Spine 2-3 [...] granuloma right buttock. Vascu lar calcification. Amy Ly IMDeepa DIAGNOSTIC IMAGING PROCE DURES documented in this encounter Visit Diagnoses Diagnosis Neuropathy Peripheral Foot Drop Right documented in this encounter Additional Health Concerns Assessment Noted Time PHQ-9 Depression Total Score: 20 04/21/2015 3:12 PM CD T documented as of this encounter
--- OUTSIDE RECORDS SUMMARY | 2022-10-07 10:46 | XMS_ITS | Encounter Summary ---
:1935 Author Organization [facility] Address [address] [place] [address] Care Team Providers Name Role Phone Unavailable Primary Care Provider Unavailable Reason for Referral Outpatient (Routine) - Closed Specialty Diagnoses / Procedures Referred By Contact Refer red To Contact Diagnoses Neuropathy Peripheral Amy Esquivel [facility] Procedures Autonomic reflex Screen [address] [place] [address] Referral ID Status Reason Start Date Expiration Date Visits Requ ested Visits Authorized [id number] Closed 12/11/2020 12/11/2021 1 1 Reason for Visit Outpatient (Routine) - Closed Specialty Diagnoses / Procedures Referred By Contact Refer red To Contact Diagnoses Neuropathy Peripheral Amy Esquivel [facility] Procedures Autonomic reflex Screen [address] [place] [address] Referral ID Status Reason Start Date Expiration Date Visits Requ ested Visits Authorized [id number] Closed 12/11/2020 12/11/2021 1 1 Encounter Details Date Type Department Care Team Description 03/07/2021 Hospital Encounter Department of Alvin, Neuropat hy Peripheral Neurology in [place], [place] Kristen.S. [address] [facility] [address] [place] [address] [phone] Social History Tobacco Use Types Packs/Day Years [...] 1 to 4 times per year 03/2022 baptism services? Do you belong to any clubs [...] by 0 acid-epa 120-180 mg mouth daily. [place] 3 capsule (strength unknown) esomeprazole (NexIUM) Take [...] Name Priority Date/Time Associated Diagnosis Comme nts AUTONOMIC REFLEX Routine 03/07/2021 1:58 PM Neuropathy Resul ts for this SCREEN CDT Peripheral procedure are i n the results section. documented in this encounter Results Autonomic reflex Screen (03/07/2021 1:58 PM CDT) Specimen (Source) Anatomical Collection Method Collection Time Re ceived Time Location / / Volume Laterality 03/07/2021 12:45 PM CDT Narrative [facility] - 03/07/2021 3:29 PM CDT FINAL ? REPORT ? AUTONOMIC REFLEX SCREEN ? [id number] ? A ge: 85 ?Location: [facility] ? Lab #: [id number] Vielka Yap ? Sex: F ? Order ID: [id number] ? Date: 03/07/2021 : 1935 Autonomic Tours Hostess: Jocelyn Garcia ([id number]) ?CONCLUSION There is evidence of diffuse postganglio barb sympathetic sudomotor and mild cardiovagal impairment, while cardiovasc ular adrenergic function is normal. Medication effects (oxybutynin, bupropion) may account for some or all of the sudomotor findings, however, a mild/limited peripheral autonomic neuropathy cannot be excluded by this study. If clinically indicated, consideration of a repeat letty dy after 48 hours of withholding medications may be performed. ?QUANTITATIVE AXON REFLEX SWEAT TEST (QSWEAT) ?Test ? Latency ??Sweat Output ??Sweat Output Normal Cutoff Side ?Site ? Current ?? Dura tion ? (min) ?(uL) ?5th (10th) Percentile ? (mA) ? (min) ? R ? Forearm ? 2 ?10 ? -99 ? - 99.00 ? F: ?? 0.08 (0.13) R ? Proximal Leg ?2 ?10 ? -99 ? -99.00 ? F: ?? 0.19 (0.31) R ? Distal Leg ?2 ?10 ? 4.9 ? 0.01 ? F: ?? 0.14 (0.23) R ? Foot ?2 ?10 ? 5.1 ? 0.01 ? F: ?? 0.07 (0.14) Comments on Sudomotor Test: QSART respon ses were reduced or absent at all sites. ?DEEP BREATHING & VALSALVA MANEUVER RESPONSES ?Result ? Normal Cutoff Deep Breathing ?Heart Rate Range (bpm) ? 3.3 ? > 7 Valsalva Maneuver ? Valsalv a Ratio ? 1.25 ? > 1.39 Comments on Deep Breathing: ??Heart rate responses to deep breathing were reduced. Comments on Valsalva maneuver: (A) Heart rate responses to the Valsalva maneuver were reduced. (B) Wgqk-ag-ykgm blood pressure response s to the Valsalva maneuver were normal. ?B LOOD PRESSURE AND HEART RATE RESPONSES TO TILT ? BP (mmHg) ?Heart Rate (BPM) ?Supine ? 138/70 ? 58 ?Tilt 1 min ? 134/60 ? 57 ?Tilt 2 min ? 130/62 ? 60 ?Tilt 3 min ? 130/64 ? 60 ?Tilt 5 min ? 138/62 ? 61 ?Tilt 10 min ?138/62 ? 62 Comments on Tilt: Patient was tilted for 10 minutes. Orthostatic hypotension was not detected. Heart rate response was normal. The patient reported lower back pain during tilt. ? Composite Autonomic Scoring Scale ? Result ?Range ? ELIE (sudo) ? 3 ? [0 - 3] ? ELIE (vagal) ?1 ? [0 - 3] ? ELIE (adren) ?0 ? [0 - 4] ? ELIE (Total) ?4 ? [0 - 10] -99 = missing value ?? Amy Ly NEUROLOGY ORDERABLES Performing Organization Address City/State/ZIP Code Phon e Number [facility] documented in this encounter Visit Diagnoses Diagnosis Neuropathy Peripheral documented in this encounter Additional Health Concerns Assessment Noted Time PHQ-9 Depression Total Score: 20 04/21/2015 3:12 PM CD T documented as of this encounter
--- OUTSIDE RECORDS SUMMARY | 2022-10-07 10:47 | XMS_ITS | Encounter Summary ---
:1935 Author Organization [facility] Address [address] [place] [address] Care Team Providers Name Role Phone Unavailable Primary Care Provider Unavailable Reason for Referral Outpatient (Routine) - Closed Specialty Diagnoses / Procedures Referred By Contact Refer red To Contact Diagnoses Neuropathy Peripheral Amy Rogers [facility] Procedures Thermoregulatory sweat test [address] [place] [address] Referral ID Status Reason Start Date Expiration Date Visits Requ ested Visits Authorized [id number] Closed 12/11/2020 12/11/2021 1 1 PEDDLER Outpatient (Routine) - Closed Specialty Diagnoses / Procedures Referred By Contact Refer red To Contact Diagnoses Neuropathy Peripheral Amy Rogers M[facility] Procedures Autonomic reflex Screen [address] [place] [address] Referral ID Status Reason Start Date Expiration Date Visits Requ ested Visits Authorized [id number] Closed 12/11/2020 12/11/2021 1 1 P[facility]ER Outpatient (Routine) - Closed Specialty Diagnoses / Procedures Referred By Contact Refer red To Contact Diagnoses Neuropathy Peripheral Amy Rogers [facility] [place] Procedures [facility] [address] [place] [address] Referral ID Status Reason Start Date Expiration Date Visits Requ ested Visits Authorized [id number] Closed 12/11/2020 12/11/2021 1 1 PEDDLER Reason for Visit Reason Comments Pre-visit Testing Orders Encounter Details Date Type Department Care Team Description 12/07/2020 Clinical Communication Department of Alvin, Pre- visit Testing Neurology in [place] [facility] [place] [address] [place] [address] [place] [phone] [phone] Social History Tobacco Use Types Packs/Day Years [...] 1 to 4 times per year 03/2022 quaker services? Do you belong to any clubs [...] on filedocumented as of this encounter Results Thermoregulatory sweat test (03/08/2021 [...] 85.8 Distribution: ? Global Hyperhidrosis: ?No Narrative JUAN AUTO - 03/08/2021 11:38 AM CDT FINAL ?REPORT ?Th ermoregulatory Sweat Test ? [id number] ??Age: 85 ??Location: [facility] ??Lab #: [id number] ?? Vielka Yap ??Sex: F ??Order ID: [id number] ?? Date: 03/08/2021 ?? : 1935 ?? Autonomic Drill Press Operator For Metal: Mray Garcia ([id number]) ? Amy Ly NEUROLOGY ORDERABLES Performing Organization Address City/State/ZIP Code Phon e Number [facility] Autonomic reflex Screen (03/07/2021 1:58 PM CDT) Specimen (Source) Anatomical Collection Method Collection Time Re ceived Time Location / / Volume Laterality 03/07/2021 12:45 PM CDT Narrative [facility] - 03/07/2021 3:29 PM CDT FINAL ? REPORT ? AUTONOMIC REFLEX SCREEN ? [phone] ? A ge: 85 ?Location: [facility] [place] ? Lab #: [id number] Vielka Yap ? Sex: F ? Order ID: [id number] ? Date: 03/07/2021 : 1935 Autonomic Drill Press Operator For Metal: Jocelyn Garcia ([id number]) ?CONCLUSION There is evidence of diffuse postganglio [...] to the Valsalva maneuver were reduced. (B) Khgi-oi-napr blood pressure response s to the Valsalva [...] Organization Address City/State/ZIP Code Phon e Number [facility] EMG (03/07/2021 8:24 AM CDT) Specimen (Source) Anatomical Collection Method Collection Time Re ceived Time Location / / Volume Laterality 03/07/2021 9:15 AM CDT Narrative [facility] - 03/07/2021 1:08 PM CDT 07-Mar-2021 ? Electromyography ? Final Report Study Number: 4 EMG Drill Press Operator For Metal: Abel Wall [phone] or [phone] Referred by: AMY ROGERS ([phone] or [phone]) Referred for: PN Referral Code: ?040 RX: [...] ? Morenita Lim/Mary Ty/Stevie Wall (127 or [phone])/[facility] NERVE CONDUCTIONS ??Record Rep ?? Normal ??Normal [...] Final Repor t Study Number: 4 EMG Drill Press Operator For Metal: Abel Wall [phone] or [phone] Referred by: AMY ROGERS ([phone] or [phone]) Referred for: PN Referral Code: 040 RX: [...] interpretation. Morenita Lim/Mary Ty/Stevie Wall (127 or [phone])/[facility] NERVE CONDUCTIONS Record Rep Normal Normal Distal [...] Wall MD at 03/07/2021 1:00:37 PM CDT Amy Ly NEUROLOGY ORDERABLES Performing Organization Address City/State/ZIP Code Phon e Number [facility] documented in this encounter Visit Diagnoses Diagnosis Neuropathy Peripheral - Primary Neuropathy Peripheral Neuropathy Peripheral Neuropathy Peripheral documented in this encounter Additional Health Concerns Assessment Noted Time PHQ-9 Depression Total Score: 20 04/21/2015 3:12 PM CD T documented as of this encounter
--- OUTSIDE RECORDS SUMMARY | 2022-10-07 10:47 | XMS_ITS | Encounter Summary ---
:1935 Author Organization [facility] Address [address] [place] [address] Care Team Providers Name Role Phone Unavailable Primary Care Provider Unavailable Reason for Visit Reason Comments COVID Nurse Line Encounter Details Date Type Department Care Team Description 12/04/2020 Clinical Communication Department of MANOLO Esquivel Nurse Line Neurology in [place], [place] [facility] [address] [facility] [address] [place] [phone] Social History Tobacco Use Types Packs/Day Years [...] or relatives? How often do you attend protestant or 1 to 4 times per year 03/2022 church services? Do you belong to any clubs or No 02/19/2022 organizations such as protestant groups, unions, fraternal or athletic groups, or [...] or slept in a detention (including now)? Sex Assigned at Date Recorded Female 02/19/2022 7:48 AM CDT documented as of this encounter Miscellaneous Notes Telephone Encounter - Shea Hanson - 12/04/2020 3:06 PM CST ??Is the patient requesting a COVID test only or other appointments? neurology Have you tested positive for COVID-19 in the last 20 days or do you have a pending COVID-19 test because you had symptoms? no In the last 14 days have you had close contact with a lab confirmed positive case of COVID-19 (closecontact is defined as a household case of COVID or being within 6 feet of a COVID-19 patient for a total of 15 minutes or more over a 24- hour period, or having direct contact with infectious secretions, e.g., being coughed on)? no In the past 14 days, are any of the following symptoms new to you and not related to an existing health condition? Fever greater than or equal to 37.8 C (100.0 F)? no New symptoms (Specifically: headache, cough, shortness of breath, respiratory distress, sore throat,diarrhea, nausea, vomiting, chills and repeated shaking with chills, myalgia's (muscle aches), loss of smell, or change or loss of taste sensation)?no Are you having NEW trouble breathing, worsening breathing, or feeling as though you're going to collapse when you stand or sit up?no Have you tested positive for COVID in the last 90 days? no Route reply to: DANA MARTINEZ SCHEDULING Scheduling Contact Number: [phone] EM ANALYST documented in this encounter Plan of Treatment Not on filedocumented as of this encounter Visit Diagnoses Not on filedocumented in this encounter Additional Health Concerns Assessment Noted Time PHQ-9 Depression Total Score: 20 04/21/2015 3:12 PM CD T documented as of this encounter
--- OUTSIDE RECORDS SUMMARY | 2022-10-07 10:47 | XMS_ITS | Encounter Summary ---
:1935 Author Organization [facility] Address [address] [place] [address] Care Team Providers Name Role Phone Unavailable Primary Care Provider Unavailable Encounter Details Date Type Department Care Team Description 02/06/2017 Hospital Encounter HX RST GI ANCILLARY Oscar Trammell M.D. [address] [place] [address] (Wo rk) Social History Tobacco Use Types Packs/Day Years Used Date Smoking Tobacco: Never Assessed Alcohol Habits Answer Date Recorded How often [...] 1 to 4 times per year 03/2022 anabaptist services? Do you belong to any clubs [...] or slept in a fdc (including now)? Sex Assigned at Date Recorded Female 02/19/2022 7:48 AM CDT documented as of this encounter Medications at Time of Discharge Medication Sig Dispensed Refills Start Date End Date lisinopril-hydroCHLOROth Take 1 tablet by 0 04/17 iazide mouth daily. (PRINZIDE,ZESTORETIC) 20-12.5 mg per tablet sennosides (SENNA LAX Take 1 tablet by 0 10/15/20 07 ORAL) mouth as needed. furosemide (LASIX) 20 mg Take 2 tablets by 0 01/1503/30/2021 tablet mouth daily as needed. Last dose taken on 03/20/2021 oxybutynin (DITROPAN-XL) Take 1 tablet by 0 11/2005/11/2021 10 mg 24 hr tablet mouth every other day. psyllium husk (METAMUCIL Take 1 scoopful by [...]
--- OUTSIDE RECORDS SUMMARY | 2022-10-07 10:47 | XMS_ITS | Encounter Summary ---
:1935 Author Organization [facility] Address [facility] [place] [address] Care Team Providers Name Role Phone Diane Alejandra Primary Care Provider Reason for Visit Auth/Cert Specialty Diagnoses / Procedures Referred By Contact Refer red To Contact Surgery Diagnoses Osteoarthritis of left hip, unspecified osteoarthritis type Osteoarthritis of left hip, unspecified osteoarthritis type [M16.12] Sh Periop Services Procedures ARTHROPLASTY, HIP, TOTAL, DIRECT ANTERIOR APPROACH [phone] [place] [address] Phone: Referral ID Status Reason Start Date Expiration Date Visits Requ ested Visits Authorized [id number] 1 1 Encounter Details Date Type Department Care Team Description 11/29/2019 Anesthesia Event [facility] Ruben Rodríguez DO [facility] [address] [id number] [facility] Rahcel Michel APRN B[employer] DEVELOPER [address] [address] [address] [place] [address] Anesthesia Record Procedure Summary Procedure Name Responsible Anesthesia Start Anesthesia Stop Anesthesiologist Time Time LEFT TOTAL HIP Rito Rodríguez DO 11/29/19 1003 0 1237 ARTHROPLASTY DIRECT ANTERIOR APPROACH (Left: Hip) Events Date Time Event Comment 11/29/2019 1003 An Start 1003 Quick Note In pre-op pt sta mckay she can not move her right arm at all and limited mobility with left arm due to shoulder pain x 2 months. On examination very weak left arm with 20 degree extens ion. Right arm a little stronger and 30 degrees of exten aden. Pt denies numbness with extension. 1004 An Start Data 1008 MD Present 1010 An Induction 1013 An Intubation 1048 AN INCISION 1138 Quick Note SaO2 probe repos itioned. 1231 AN Extubation 1231 an stop data 1237 An Stop Electronically s igned by Scarlett Cassidy APRN CRNA on November 29, 2019 12:37 PM Name Total ceFAZolin (ANCEF) intermittent infusion 2 g in 100 mL dextrose PRE-MIX 3 g tranexamic acid (CYKLOKAPRON) bolus 1 g vial attach to NaCl 50 or 100 mL 1 g bag ADULT dexamethasone 4mg/mL 8 mg dexmedetomidine (PRECEDEX) 4 mcg/mL in sodium chloride 0.9 % 100 mL 84.6 mcg infusion fentaNYL (SUBLIMAZE) injection 100 mcg lidocaine 2% 100 mg ondansetron 2mg/mL 4 mg phenylephrine (MARCOS-SYNEPHRINE) injection 1,000 mcg propofol (DIPRIVAN) injection 10 mg/mL vial 240 mg rocuronium 10mg/mL 50 mg vecuronium 1mg/mL 5 mg ketamine injection 10 mg/mL 50 mg phenylephrine 0.1 mg/mL infusion (mcg/kg/min) 0.22 mg HYDROmorphone 1 mg/mL 0.5 mg sugammadex (BRIDION) 200mg/2ml 200 mg lactated ringers infusion 1,800 mL Agents Name NO HELIOX O2 N2O Air Exp Sevoflurane Exp Isoflurane Exp Desflurane Exp N2O Ins Sevoflurane Ins Isoflurane Ins Desflurane O2 Auxiliary Blood No blood administrations on file. Lines, Drains, and Airways Type Details Placement Removal Incision/Surgical Site 11/29/19; 1203; Left; Hip 11/29/[address] Champion RN Peripheral IV 11/29/19; 0851; 18 G; 11/29/19 0851 by 12/01/19 1036 by Left; Hand; Chlorhexidine Marybeth Rendon Tho mpson, Kathryn RN A, RN RETIRED ETT 11/29/19; 1013; Mask 11/29/19 1013 by 11/29/19 1 231 by Ventilation: Easy with Sanjay Holloway oral airway; Ease of RYANN Ramos CRNA, A PRN CRNA Intubation: Easy (no neck extension.); Airway Size: 7; Cuffed; Oral; Blade Type: Akbar; Blade Size: 3; Place by: adb; Insertion Attempts: 1; Secured at (cm)to lip: 21 cm; Breath Sounds: Equal, clear and bilateral; End Tidal CO2: Present; Dentition: Intact, Unchanged; Grade View of Cords: 1; Airway Adjuncts: Akbar Urethral Catheter 11/29/19; 1020; No; 11/29/19 1020 by 11/30/19 0650 by Anesthesia; [address] Champion, RN Ivan Mendiola CNA documented in this encounter Social History Tobacco Use Types Packs/Day Years Used Date Smoking Tobacco: Never Smokeless Tobacco: Never Alcohol Use Standard Drinks/Week Comments Yes 0 (1 standard drink = 0.6 oz pure alcoho l) 2drinks a month Sex Assigned at Date Recorded Not on file documented as of this encounter OR Notes Anesthesia Postprocedure Evaluation - Rito Rodríguez DO - 11/29/2019 2:11 PM CST Patient: Vielka Yap Procedure(s): LEFT TOTAL HIP ARTHROPLASTY DIRECT ANTERIOR APPROACH Diagnosis:Osteoarthritis of left hip, unspecified osteoarthritis type [M16.12] Diagnosis Additional Information: No value filed. Anesthesia Type: General, ETT Note: Anesthesia Post Evaluation Patient location during evaluation: PACU Patient participation: Able to fully participate in evaluation Level of consciousness: awake and alert Pain management: satisfactory to patient Airway patency: patent Cardiovascular status: acceptable and hemodynamically stable Respiratory status: acceptable and unassisted Hydration status: acceptable PONV: none Last vitals: Vitals: 11/29/19 1300 11/29/19 1310 11/29/19 1320 BP: 123/49 124/50 127/56 Pulse: 55 52 52 Resp: 8 11 10 Temp: 36.2 ??C (97.2 ??F) SpO2: 100% 100% 100% Electronically Signed By: Rito Rodríguez DO November 29, 2019 2:11 PM ATED PAD BUFFER Anesthesia Preprocedure Evaluation - Rito Rodríguez DO - 11/29/2019 8:48 AM CST Anesthesia Pre-Procedure Evaluation Patient: Vielka Yap : 1935 Preoperative Diagnosis: Osteoarthritis of left hip, unspecified osteoarthritis type [M16.12] Procedure(s): LEFT TOTAL HIP ARTHROPLASTY DIRECT ANTERIOR APPROACH (BIOMET)^ Past Medical History: Diagnosis Date ??? Chronic low back pain ??? Depressive disorder ??? Depressive disorder, not elsewhere classified ??? Edema ??? Edema ??? Esophageal reflux ??? Hypertension ??? Hypothyroidism ??? Mixed hyperlipidemia ??? Morbid obesity (H) ??? Peripheral neuropathy ??? Primary localized osteoarthrosis, lower leg ??? RESTLESS LEG SYNDROME ??? Unspecified sleep apnea ??? Urinary incontinence Past Surgical History: Procedure Laterality Date ??? ABDOMEN SURGERY partial sigmoid resection sssecondary to rupture of diverticulum ??? C APPENDECTOMY 1950 ??? C DELIVERY ONLY , Low Cervical,X2 ??? C PELVIS/HIP JOINT SURGERY UNLISTED ??? C TOTAL KNEE ARTHROPLASTY 09/2007 RIGHT ??? ENT SURGERY tonsillectomy ??? HC DILATION/CURETTAGE DIAG/THER NON OB X3 IN HER 50s ??? SURGICAL HISTORY OF - 2004 Partial sigmoid resection secondary to ruptured diverticulum. ??? SURGICAL HISTORY OF - 10/2008 Right peroneal nerve release Anesthesia Evaluation . Pt has had prior anesthetic. ROS/MED HX ENT/Pulmonary: (+)sleep apnea, [place] risk factors hypertension, obese, , . . Neurologic: (+)neuropathy other neuro Restless Legs Syndrome Cardiovascular: (+) Dyslipidemia, hypertension----. : . . . :. . METS/Exercise Tolerance: Hematologic: Musculoskeletal: (+) arthritis, - GI/Hepatic: (+) GERD Renal/Genitourinary: Endo: (+) thyroid problem hypothyroidism, Obesity, . Psychiatric: (+) psychiatric history depression Infectious Disease: Malignancy: Other: (+) H/O Chronic Pain,H/O chronic opiod use , Physical Exam Normal systems: cardiovascular, pulmonary and dental Airway Mallampati: II TM distance: >3 FB Neck ROM: full Dental Cardiovascular Pulmonary Lab Results Component Value Date WBC 6.5 10/17/2017 HGB 13.6 10/17/2017 HCT 41.2 10/17/2017 PLT 180 10/17/2017 CRP 6.7 10/17/2017 SED 14 10/17/2017 NA 142 09/15/2009 POTASSIUM 4.0 11/29/2019 CHLORIDE 104 09/15/2009 CO2 30 09/15/2009 BUN 20 09/15/2009 CR 0.99 09/15/2009 GLC 103 (H) 09/15/2009 VU 9.5 09/15/2009 MAG 1.8 09/23/2007 ALBUMIN 4.3 09/15/2009 PROTTOTAL 7.2 09/15/2009 ALT 55 (H) 09/15/2009 AST 46 (H) 09/15/2009 ALKPHOS 86 09/15/2009 BILITOTAL 0.5 09/15/2009 LIPASE 118 05/21/2007 PTT 30 09/21/2007 INR 1.00 09/21/2007 TSH 4.59 09/15/2009 T4 1.21 07/26/2004 HCG neg 09/27/2002 Preop Vitals BP Readings from Last 3 Encounters: 11/29/19 (!) 148/55 10/17/17 175/50 10/11/09 118/70 Pulse Readings from Last 3 Encounters: 11/29/19 66 10/11/09 64 09/15/09 72 Resp Readings from Last 3 Encounters: 11/29/19 16 10/17/17 16 03/27/09 16 SpO2 Readings from Last 3 Encounters: 11/29/19 99% 10/17/17 98% Temp Readings from Last 1 Encounters: 11/29/19 36.9 ??C (98.5 ??F) (Temporal) Ht Readings from Last 1 Encounters: 11/29/19 1.651 m (5' 5) Wt Readings from Last 1 Encounters: 11/29/19 108 kg (238 lb) Estimated body mass index is 39.61 kg/m?? as calculated from the following: Height as of this encounter: 1.651 m (5' 5). Weight as of this encounter: 108 kg (238 lb). Anesthesia Plan History & Physical Review History and physical reviewed and following examination; no interval change. ASA Status: 3 . NPO Status: > 8 hours Plan for General and ETT with Intravenous and Propofol induction. Maintenance will be Balanced. PONV prophylaxis: Ondansetron (or other 5HT-3) and Dexamethasone or Solumedrol Chronic pain patient, dexmedetomidine infusion, ketamine Postoperative Care Postoperative pain management: IV analgesics and Multi-modal analgesia. Consents Anesthetic plan, risks, benefits and alternatives discussed with: Patient. Use of blood products discussed: Yes. Use of blood products discussed with Patient. Consented to blood products. . Rito Rodríguez DO ATED PAD BUFFER documented in this encounter Miscellaneous Notes Anesthesia Care Transfer Note - Scarlett Cassidy APRN CRNA - 11/29/2019 12:36 PM CST Patient: Vielka Yap Procedure(s): LEFT TOTAL HIP ARTHROPLASTY DIRECT ANTERIOR APPROACH Diagnosis: Osteoarthritis of left hip, unspecified osteoarthritis type [M16.12] Diagnosis Additional Information: No value filed. Anesthesia Type: General, ETT Note: Airway :Face Mask Patient transferred to:PACU Handoff Report: Identifed the Patient, Identified the Reponsible Provider, Reviewed the pertinent medical history, Discussed the surgical course, Reviewed Intra-OP anesthesia mangement and issues during anesthesia, Set expectations for post-procedure period and Allowed opportunity for questions and acknowledgement of understanding Vitals: (Last set prior to Anesthesia Care Transfer) MINH VITALS 11/29/2019 1201 - 11/29/2019 1236 11/29/2019 Pulse: 63 SpO2: 99 % Resp Rate (observed): 13 EKG: Sinus bradycardia Electronically Signed By: Sacrlett Cassidy APRN CRNA November 29, 2019 12:36 PM ATED PAD BUFFER documented in this encounter Plan of Treatment Not on filedocumented as of this encounter Visit Diagnoses Not on filedocumented in this encounter Administered Medications Inactive Administered Medications - up to 3 most recent administrations Medication Order MAR Action Action Date Dose Rate Site ceFAZolin (ANCEF) intermittent Given 11/29/2019 12:04 PM INFLATED PAD BUFFER 1 g infusion 2 g in 100 mL dextrose PRE-MIX Routine, 2 g, Intravenous, PRE-OP/PRE-PROCEDURE, Starting on Fri11/29/19 at 0800, For 1 dose, Give first dose within 1 hour PRIOR to incision. If patient weight is greater than or equal to 120 kg increase dose to 3 g., Indications: Perioperative Pharmacoprophylaxis, Pre-procedure Given 11/29/2019 10:04 AM INFLATED PAD BUFFER 2 g dexamethasone (DECADRON) injection Given 11/29/2019 10:49 AM INFLATED PAD BUFFER 8 mg PRN, Administer over 1 Minutes, Starting on Fri11/29/19 at 1049, Anesthesia Intra-op dexmedetomidine (PRECEDEX) 4 Rate/Dose 11/29/2019 11:49 0.2 mcg/kg/h r 5.4 mL/hr mcg/mL in sodium chloride Change AM INFLATED PAD BUFFER 0.9 % 100 mL infusion Intravenous, CONTINUOUS PRN, Starting on Fri11/29/19 at 1020, Anesthesia Intra-op Rate/Dose Change 11/29/2019 11:06 AM INFLATED PAD BUFFER 0.4 mcg/kg/hr 10.8 mL/hr Rate/Dose Change 11/29/2019 10:55 AM INFLATED PAD BUFFER 1 mcg/kg/hr 27 mL/hr fentaNYL (PF) (SUBLIMAZE) injection Given 11/29/2019 10:10 AM INFLATED PAD BUFFER 100 mcg PRN, Administer over 3-5 Minutes, Starting on Fri11/29/19 at 1010, Anesthesia Intra-op HYDROmorphone (DILAUDID) injection Given 11/29/2019 10:59 AM INFLATED PAD BUFFER 0.5 mg PRN, Starting on Fri11/29/19 at 1059, Anesthesia Intra-op ketamine (KETALAR) injection Given 11/29/2019 11:50 AM INFLATED PAD BUFFER 10 mg PRN, Administer over 2-5 Minutes, Starting on Fri11/29/19 at 1010, Anesthesia Intra-op Given 11/29/2019 10:50 AM INFLATED PAD BUFFER 10 mg Given 11/29/2019 10:10 AM INFLATED PAD BUFFER 20 mg lactated ringers infusion New Bag 11/29/2019 10:59 AM INFLATED PAD BUFFER at 25 mL/hr, Intravenous, CONTINUOUS, IF patient NOT on dialysis., Pre-procedure, Starting on Fri11/29/19 at 0815, Until Fri11/29/19 at 1233 New Bag 11/29/2019 9:00 AM INFLATED PAD BUFFER 25 mL/hr lidocaine 2% injection (MDV) Given 11/29/2019 10:10 AM INFLATED PAD BUFFER 100 mg PRN, Starting on Fri11/29/19 at 1010, Anesthesia Intra-op ondansetron (ZOFRAN) injection Given 11/29/2019 10:03 AM INFLATED PAD BUFFER 4 mg PRN, Administer over 2-5 Minutes, Starting on Fri11/29/19 at 1003, Anesthesia Intra-op phenylephrine (MARCOS-SYNEPHRINE) injection Bolus 11/29/2019 12:20 PM INFLATED PAD BUFFER 100 mcg CONTINUOUS PRN, Starting on Fri11/29/19 at 1010, Anesthesia Intra-op Bolus 11/29/2019 12:06 PM INFLATED PAD BUFFER 200 mcg Bolus 11/29/2019 11:52 AM INFLATED PAD BUFFER 200 mcg phenylephrine 0.1 mg/mL infusion New Bag 11/29/2019 10:46 0.4 mcg/kg/min 25.9 mL/hr (mcg/kg/min) AM INFLATED PAD BUFFER CONTINUOUS PRN, Starting on Fri11/29/19 at 1046, Anesthesia Intra-op propofol (DIPRIVAN) injection 10 mg/mL v ial Given 11/29/2019 10:53 AM INFLATED PAD BUFFER 70 mg PRN, Starting on Fri11/29/19 at 1010, Anesthesia Intra-op Given 11/29/2019 10:10 AM INFLATED PAD BUFFER 170 mg rocuronium injection Given 11/29/2019 10:10 AM INFLATED PAD BUFFER 50 mg PRN, Starting on Fri11/29/19 at 1010, Anesthesia Intra-op sugammadex (BRIDION) injection Given 11/29/2019 12:17 PM INFLATED PAD BUFFER 200 mg PRN, Starting on Fri11/29/19 at 1217, Anesthesia Intra-op tranexamic acid (CYKLOKAPRON) bolus 1 g vial Given 11/29/2019 10 :19 AM INFLATED PAD BUFFER 1 g attach to NaCl 50 or 100 mL bag ADULT 1 g, Intravenous, ONCE, On Fri11/29/19 at 0815, For 1 dose, Each 1 gram to be infused over 10 minutes., Pre-procedure vecuronium (NORCURON) injection Given 11/29/2019 11:13 AM INFLATED PAD BUFFER 5 mg PRN, Starting on Fri11/29/19 at 1113, Anesthesia Intra-op documented in this encounter Care Teams Leave Manager Relationship Specialty Start Date End Date Diane Alejandra PCP - General Internal Medicine 10/17/[address] [place] [address] [address] documented as of this encounter
--- OUTSIDE RECORDS SUMMARY | 2022-10-07 10:47 | XMS_ITS | Encounter Summary ---
:1935 Author Organization [facility] Address [address] [place] [address] Care Team Providers Name Role Phone Unavailable Primary Care Provider Unavailable Reason for Visit Outpatient (Routine) - Closed Specialty Diagnoses / Procedures Referred By Contact Refer red To Contact Neurology Diagnoses Neuropathy Peripheral Diane Alejandra M.D. [address] [address] Referral ID Status Reason Start Date Expiration Date Visits Requ ested Visits Authorized [id number] Closed 10/24/2020 10/24/2021 1 1 Encounter Details Date Type Department Care Team Description 01/29/2021 Admin Visit Department of Neurology Eric Esquivel (Patient: in [facility] kareem Reyes, Jovany) 200 [facility] [place], [place] 200 [facility] [address] [place], [place] [phone] [address] Social History Tobacco Use Types Packs/Day Years [...] or slept in a correction (including now)? Sex Assigned at Date Recorded Female 02/19/2022 7:48 AM CDT documented as of this encounter Plan of Treatment Not on filedocumented as of this encounter Visit Diagnoses Not on filedocumented in this encounter Additional Health Concerns Assessment Noted Time PHQ-9 Depression Total Score: 20 04/21/2015 3:12 PM CD T documented as of this encounter
--- OUTSIDE RECORDS SUMMARY | 2022-10-07 10:47 | XMS_ITS | Encounter Summary ---
:1935 Author Organization [facility] Address [address] [place] [address] Care Team Providers Name Role Phone Unavailable Primary Care Provider Unavailable Encounter Details Date Type Department Care Team Description 03/23/2012 Hospital Encounter HX NO MAPPING Avinash Eckert M.D. [address] [place], [place] [phone] (Wo rk) Social History Tobacco Use Types [...] or slept in a prison (including now)? Sex Assigned at Date Recorded Female 02/19/2022 7:48 AM CDT documented as of this encounter Medications at Time of Discharge Medication Sig Dispensed Refills Start Date End Date sennosides (SENNA LAX Take 1 tablet by 0 10/15/20 07 ORAL) mouth as needed. documented as of this encounter Plan of Treatment Not on filedocumented as of this encounter Procedures Procedure Name Priority Date/Time Associated Diagnosis Comme nts MR SHOULDER RIGHT Routine 03/23/2012 4:10 PM Resu lts for this WITHOUT IV CONTRAST CDT procedur e are in the results section. documented in this encounter Results MR Shoulder Right without IV Contrast (03/23/2012 4:10 PM CDT) Anatomical Region Laterality Modality Upper Extremity, Shoulder Right Magnetic Reson ance Specimen (Source) Anatomical Collection Method Collection Time Re ceived Time Location / / Volume Laterality 03/23/2012 4:10 PM CDT Impressions 03/24/2012 8:41 AM CDT 1. Thickened heterogeneous appearance of the supraspinatus tendon consistent with tendinosis/tendinopathy. Focal fluid signal along the bursal surface at the level of the later al acromion, appearance of partial thickness supraspinatus tear. No musculotendinous retraction or muscle atrophy. 2. Anterior lateral joint capsular hyper trophy. Small joint effusion. Suspect small intracapsular loose body l aterally. 3. Acromioclavicular joint degenerative changes. Narrative 03/24/2012 8:41 AM CDT COMPARISON: Radiographs of 03/20/2012 TECHNIQUE: Multiplanar multisequence non contrast enhanced MRI of the right shoulder was performed. FINDINGS: There is degenerative change with spurri ng and capsular hypertrophy involving the acromioclavicular joint sm all subchondral cystic focus seen within the lateral aspect of the ac romion. Heterogeneous signal involves the majori ty of the thickened supraspinatus tendon. Focal fluid signal seen involving the bursal surface at the level of the lateral acro mion. Appearance of partial thickness tear. No of full-thickness tea r, musculotendinous retraction, muscular atrophy. The biceps tendon is intact and inserts normally on the glenoid labrum. There is no gross evidence of labral tea r. Low signal on all sequences consistent w ith bone island seen within the osseous glenoid. No surrounding sim a. Minimal degenerative cystic changes seen at the rotator cuff insertion. Capsular hypertrophy noted laterally and anteriorly. Intracapsular loose body (series 6 image s 13 and 14). Small joint effusion. Procedure Note Hard, Kole Banks M.D. / Provider, Maria Elena garcia M.D. - 04/08/2017 COMPARISON: Radiographs of 03/20/2012 TECHNIQUE: Multiplanar multisequence non contrast enhanced MRI of the right shoulder was performed. FINDINGS: There is degenerative change with spurri ng and capsular hypertrophy involving the acromioclavicular joint sm all subchondral cystic focus seen within the lateral aspect of the ac romion. Heterogeneous signal involves the majori ty of the thickened supraspinatus tendon. Focal fluid signal seen involving the bursal surface at the level of the lateral acro mion. Appearance of partial thickness tear. No of full-thickness tea r, musculotendinous retraction, muscular atrophy. The biceps tendon is intact and inserts normally on the glenoid labrum. There is no gross evidence of labral tea r. Low signal on all sequences consistent w ith bone island seen within the osseous glenoid. No surrounding sim a. Minimal degenerative cystic changes seen at the rotator cuff insertion. Capsular hypertrophy noted laterally and anteriorly. Intracapsular loose body (series 6 image s 13 and 14). Small joint effusion. IMPRESSION: 1. Thickened heterogeneous appearance of the supraspinatus tendon consistent with tendinosis/tendinopathy. Focal fluid signal along the bursal surface at the level of the later al acromion, appearance of partial thickness supraspinatus tear. No musculotendinous retraction or muscle atrophy. 2. Anterior lateral joint capsular hyper trophy. Small joint effusion. Suspect small intracapsular loose body l aterally. 3. Acromioclavicular joint degenerative changes. Manju Leon(R)(CT), RAndrey(R) IMG MRI PROCEDURES documented in this encounter Visit Diagnoses Not on filedocumented in this encounter
--- OUTSIDE RECORDS SUMMARY | 2022-10-07 10:47 | XMS_ITS | Encounter Summary ---
:1935 Author Organization [facility] Address [address] [place] [address] Care Team Providers Name Role Phone Unavailable Primary Care Provider Unavailable Encounter Details Date Type Department Care Team Description 03/20/2012 Hospital Encounter HX NO MAPPING Avinash Eckert M.D. [address] [place], [place] [phone] (Wo rk) Social History [...] Name Priority Date/Time Associated Diagnosis Comme nts DX SHOULDER RIGHT Routine 03/20/2012 10:16 AM Res ults for this 2+ VIEWS CDT procedure are i n the results section. documented in this encounter Results DX Shoulder Right 2+ Views (03/20/2012 10:16 AM CDT) Anatomical Region Laterality Modality Upper Extremity, Shoulder Right Radiographic I maging Specimen (Source) Anatomical Collection Method Collection Time Re ceived Time Location / / Volume Laterality 03/20/2012 10:16 AM CDT Narrative 03/20/2012 10:38 AM CDT Technique: Multiple views of the right s houlder were obtained. No prior studies are available for comparis on. FINDINGS: There are no evidence of acute fracture, dislocation/subluxation or focal destruc tion. ?No radiopaque foreign bodies identified. A 1.1 cm dens ity projects over the humeral head, likely a bone island. Impression: No radiographic evidence of acute pathology. Procedure Note Kenrick Bullard M.D. / Provider, Ki luis M.D. - 04/08/2017 Technique: Multiple views of the right s houlder were obtained. No prior studies are available for comparis on. FINDINGS: There are no evidence of acute fracture, dislocation/subluxation or focal destruc tion. No radiopaque foreign bodies identified. A 1.1 cm dens ity projects over the humeral head, likely a bone island. Impression: No radiographic evidence of acute pathology. Cecilia Leon(R)(CT), R.T.(R) IMG DIAGNOSTIC IMAGING PROCEDURES documented in this encounter Visit Diagnoses Not on filedocumented in this encounter
--- OUTSIDE RECORDS SUMMARY | 2022-10-07 10:47 | XMS_ITS | Clinical Summary ---
:1935 Author Organization [facility] Address [address] [place] [address]. [place] [address] Care Team Providers Name Role Phone Joe Alejandraine Primary Care Provider Allergies Active Allergy Reactions Severity Noted Date Comments Augmentin Nausea and Vomiting 04/03/2006 Ibuprofen 09/27/2002 in large quanti ties- personality khadijah nge Tazobactam GI Disturbance 11/29/2019 Tetracycline 09/28/2002 Medications Medication Sig Dispensed Refills Start Date End Date Status SENNA PO Take 1 tablet by 14 0 10/15/2007 Ac tive mouth daily as needed celecoxib (CELEBREX) Take 200 mg by 0 Active 200 MG capsule mouth 2 times daily At 0800 and 2000 lidocaine (LIDODERM) 5 Place 1 patch onto 0 Active % patch the skin daily as needed To prevent lidocaine toxicity, patient should be patch free for 12 hrs daily. traMADol (ULTRAM) 50 Take 50 mg by 0 Active MG tablet mouth 3 times daily as needed for severe pain acetaminophen Take 650-1,300 mg 0 Active (TYLENOL) 650 MG CR by mouth every 8 tablet hours as needed for mild pain or fever oxybutynin ER Take 10 mg by 0 Ac tive (DITROPAN-XL) 10 MG 24 mouth daily hr tablet lisinopril-hydrochloro Take 1 tablet by 0 Active thiazide mouth daily (PRINZIDE/ZESTORETIC) 20-12.5 MG tablet levothyroxine Take 25 mcg by 0 A ctive (SYNTHROID/LEVOTHROID) mouth daily EDUARDA 25 MCG tablet Synthroid simvastatin (ZOCOR) 10 Take 10 mg by 0 Active MG tablet mouth At Bedtime buPROPion (WELLBUTRIN Take 300 mg by 0 Active XL) 150 MG 24 hr mouth every tablet morning (Takes 2 x 150mg = 300mg) furosemide (LASIX) 20 Take 20 mg by 0 Active MG tablet mouth daily as needed esomeprazole (NEXIUM) Take 20 mg by [address] capsule mouth daily as needed fish oil-omega-3 fatty Take 1 g by mouth 0 Active acids 1000 MG capsule daily oxyCODONE (ROXICODONE) Take 1-2 tablets 60 tablet 0 11/30/2019 Active 5 MG (5-10 mg) by mouth tabletIndications: every 4 hours as Status post total needed for replacement of left moderate to severe hip pain Active Problems Problem Noted Date S/P total hip arthroplasty 11/29/2019 HYPERLIPIDEMIA LDL GOAL <100 09/16/2010 RESTLESS LEG SYNDROME 10/31/2005 Primary localized osteoarthrosis, lower leg 09/28/2002 Edema 09/28/2002 Overview: Multifactorial - venous insufficiency, h as [place]. Depressive disorder, not elsewhere classified 09/28/20 02 Esophageal reflux 09/28/2002 Mixed hyperlipidemia 09/28/2002 Sleep apnea 09/28/2002 Overview: Compliant with CPAP, has greatly improve d symptoms. Problem list name updated by automated p rocess. Provider to review Obesity 09/28/2002 Overview: Problem list name updated by automated p rocess. Provider to review Immunizations Name Administration Dates Next Due HepB 01/15/2005, 12/12/2004 Influenza (IIV3) PF 08/16/2009, 09/16/2007, 09/15/2006, 08/18, 09/27/2002, 11/24/2001 Mantoux Tuberculin Skin Test 02/21/2003 Pneumococcal 23 valent 09/05/1994 TD (ADULT, 7+) 01/24/2000 Family History Medical History Relation Comments Cancer Father D ; AGE 59 LUNG CANC ER Cerebrovascular Disease Mother D ; AGE 88 Heart Disease Paternal Grandfather [place] Cancer Paternal Grandmother OVARIAN Cancer Sister 1 KIDNEY Gynecology Sister 2 ENDOMETRIOSIS Family History Negative Sister 3 Depression Son Relation Status Comments Father Mother Paternal Grandfather Paternal Grandmother Sister 1 Sister 2 Sister 3 Son Social History Tobacco Use Types Packs/Day Years Used Date Smoking Tobacco: Never Smokeless Tobacco: Never Alcohol Use Standard Drinks/Week Comments Yes 0 (1 standard drink = 0.6 oz pure alcoho l) 2drinks a month Sex Assigned at Date Recorded Not on file Last Filed Vital Signs Vital Sign Reading Time Taken Comments Blood Pressure 120/43 12/01/2019 9:50 AM HOME HEALTH SCHEDULER Pulse 67 11/29/2019 6:00 PM HOME HEALTH SCHEDULER Temperature 36.3 ??C (97.4 ??F) 12/01/2019 9:50 AM HOME HEALTH SCHEDULER Respiratory Rate 16 12/01/2019 9:50 AM HOME HEALTH SCHEDULER Oxygen Saturation 96% 12/01/2019 9:50 AM HOME HEALTH SCHEDULER Inhaled Oxygen Concentration - - Weight 108 kg (238 lb) 11/29/2019 8:06 AM HOME HEALTH SCHEDULER Height 165.1 cm (5' 5) 11/29/2019 8:06 AM HOME HEALTH SCHEDULER Body Mass Index 39.61 11/29/2019 8:06 AM HOME HEALTH SCHEDULER Plan of Treatment Health Maintenance Due Date Last Done Comments ADVANCE CARE PLANNING 1935 ANNUAL REVIEW OF HM ORDERS 1935 COVID-19 Vaccine (#1) 04/08/1936 FALL RISK ASSESSMENT 2002 HEPATITIS B IMMUNIZATION (3 04/03/2005 01/15/2005, 01/16/20 05, of 3 - 3-dose series) 12/12/2004, Additional history exists MEDICARE ANNUAL WELLNESS 01/08/2007 01/08/2006, 05/27/2003 VISIT DEXA 06/27/2020 06/27/2005 DTAP/TDAP/TD IMMUNIZATION 08/10/2020 08/10/2010, 01/24/2000 (3 - Td or Tdap) PHQ-2 (once per calendar 11/17/2021 year) INFLUENZA VACCINE (#1) 2022 08/25/2019, 08/15/2018, 07/31/2017, Additional history exists Pneumococcal Vaccine: 65+ Completed 09/29/2015, 08/10/2010 , Years 09/05/1994 ZOSTER IMMUNIZATION Completed 10/29/2018, 08/20/2018, 08/13/2012 IPV IMMUNIZATION Aged Out No longer eligi ble based on patient 's age to complete this topic MENINGITIS IMMUNIZATION Aged Out No longe r eligible based on patient 's age to complete this topic Medical Devices Implanted Type Area Jewel Blocker And Sawyer Device Shelf Model / Identifier Expiration Serial / Date Lot Imp Scr Zim 6.5x30mm Acet Cup Self Tap [id number] Metallic Left: [employer] 07/17/2029 [id number] / Implanted: Qty: 1 on 11/29/2019 by Tomas Ambrose MD at [facility] Hardware/Anc Hip / hor [id number] Imp Stem Fem Biom Taperloc Hi Offset Type 1 [id number] Total Joint Left: [employer] 03/23/2029 [id number] / Implanted: Qty: 1 on 11/29/2019 by Tomas Ambrose MD at [facility] Component/In Hip / sert [id number] Biolox Delta Hip System Modular Ceramic Head, Type 1 Taper, 36mm Head 0 Standard Neck Left: [employer] 03/22/2029 [id number] / Implanted: Qty: 1 on 11/29/2019 by Tomas Ambrose MD at [facility] Hip / [id number] Insurance Payer Benefit Plan / Subscriber ID Effective Dates Phone Addre ss Type Group MEDICARE MEDICARE [id number] 2002-Prese [phone] ATTN CL AIMS Medicare nt 0 [address] [facility] [place] [address] BCBS [facility] FEDERAL [id number] 1988-Presen [phone] [address] [address] PPO EMPLOYEE t 0 [facility] [id number] Care Teams Auto Mechanic Relationship Specialty Start Date End Date Daine Alejandra PCP - General Internal Medicine 10/17/17 [facility] [address] [place] [address]
--- OUTSIDE RECORDS SUMMARY | 2022-10-07 10:47 | XMS_ITS | Encounter Summary ---
:1935 Author Organization [facility] Address [address] [place] [address] Care Team Providers Name Role Phone Unavailable Primary Care Provider Unavailable Reason for Visit Reason Comments Pre-visit Intake Intake complete Encounter Details Date Type Department Care Team Description 01/26/2021 Clinical Communication Department [facility], Pre- visit Intake Neurology in [facility] (Intake complet e) [facility] [address] [facility] [address] [place] [id number] [phone] Social History Tobacco Use Types Packs/Day Years [...]
--- OUTSIDE RECORDS SUMMARY | 2022-10-07 10:47 | XMS_ITS | Encounter Summary ---
:1935 Author Organization [facility] Address [address] [place] [address]. [place] [address] Care Team Providers Name Role Phone Diane Alejandra Primary Care Provider Encounter Details Date Type Department Care Team Description 11/29/2019 Travel Social History Tobacco Use Types Packs/Day Years Used Date Smoking Tobacco: Never Smokeless Tobacco: Never Alcohol Use Standard Drinks/Week Comments Yes 0 (1 standard drink = 0.6 oz pure alcoho l) 2drinks a month Sex Assigned at Date Recorded Not on file documented as of this encounter Plan of Treatment Not on filedocumented as of this encounter Visit Diagnoses Not on filedocumented in this encounter Care Teams It Service Delivery Manager Relationship Specialty Start Date End Date Diane Alejandra PCP - General Internal Medicine 10/17/17 [facility] [address] [place] [address] documented as of this encounter
--- OUTSIDE RECORDS SUMMARY | 2022-10-07 10:47 | XMS_ITS | Encounter Summary ---
:1935 Author Organization [facility] Address [address] [place] [address] Care Team Providers Name Role Phone Unavailable Primary Care Provider Unavailable Reason for Referral Outpatient (Routine) - Closed Specialty Diagnoses / Procedures Referred By Contact Refer red To Contact Neurology Diagnoses Neuropathy Peripheral Diane Alejandra M.D. [address] [address] Referral ID Status Reason Start Date Expiration Date Visits Requ ested Visits Authorized [id number] Closed 10/24/2020 10/24/2021 [address] Encounter Details Date Type Department Care Team Description 10/24/2020 [facility] Diane Alejandra Neuropathy AND NANDO Stephens M.D. Peripheral (Primary [address] [facility] [address] [facility] [place] [address] [phone] Social History Tobacco Use Types Packs/Day Years Used Date Smoking Tobacco: Never Alcohol Habits Answer Date Recorded [...] 02/19/2022 organizations such as sikhism groups, unions, [employer] or athletic groups, or school groups? How [...] Name Type Priority Associated Diagnoses Order S [facility] Neurology Referral Outpatient Referral Routine Neuropathy Ex pected: Peripheral 10/24/2020 (Approximate), Expires: 10/24/2023 documented as of this encounter Visit Diagnoses Diagnosis Neuropathy Peripheral - Primary documented in this encounter Additional Health Concerns Infection Onset Date Last Indicated Resolved Time COVID19 Pending 03/27/2021 03/27/2021 03/27/2021 11:30 AM CDT Assessment Noted Time PHQ-9 Depression Total Score: 20 04/21/2015 3:12 PM CD T documented as of this encounter
--- OUTSIDE RECORDS SUMMARY | 2022-10-07 10:47 | XMS_ITS | Encounter Summary ---
:1935 Author Organization [facility] Address [address] [place] [address] Care Team Providers Name Role Phone Unavailable Primary Care Provider Unavailable Encounter Details Date Type Department Care Team Description 10/11/2008 - Hospital Encounter HX RST DERM SURG OP Hesham Gonzalez , 10/18/2008 Christel Anderson M.D. [address] [place] [id number] Social History Tobacco Use Types Packs/Day Years [...] 02/19/2022 organizations such as congregational groups, unions, fraternal or athletic groups, or [...] or slept in a long-term (including now)? Sex Assigned at Date Recorded [...]
--- OUTSIDE RECORDS SUMMARY | 2022-10-07 10:47 | XMS_ITS | Encounter Summary ---
:1935 Author Organization [facility] Address [address] [place] [address] Care Team Providers Name Role Phone Unavailable Primary Care Provider Unavailable Encounter Details Date Type Department Care Team Description 02/05/2017 Hospital Encounter HX NO MAPPING Social History Tobacco Use Types Packs/Day Years [...] or relatives? How often do you attend hindu or 1 to 4 times per year 03/2022 yarsanism services? Do you belong to any clubs or No 02/19/2022 organizations such as hindu groups, unions, fraternal or athletic groups, or [...] or slept in a jail (including now)? Sex Assigned at Date Recorded [...]
--- OUTSIDE RECORDS SUMMARY | 2022-10-07 10:47 | XMS_ITS | Encounter Summary ---
:1935 Author Organization [place] Address Formerly [facility] [address] Care Team Providers Name Role Phone Rigoberto Diane Primary Care Provider Reason for Referral [facility] (Routine) Specialty Diagnoses / Procedures Referred By Contact Refer red To Contact [id number] [place] [address] Referral ID Status Reason Start Date Expiration Date Visits Requ ested Visits Authorized TENDER (Routine) Specialty Diagnoses / Procedures Referred By Contact Refer red To Contact Yuni Kyle [facility] [address], [place] [address] Referral ID Status Reason Start Date Expiration Date Visits Requ ested Visits [facility] (Routine) Specialty Diagnoses / Procedures Referred By Contact Refer red To Contact Yuni Kyle Sarah [facility] [address], [place] [address] Referral ID Status Reason Start Date Expiration Date Visits Requ ested Visits Authorized TENDER Reason for Visit Auth/Cert Specialty Diagnoses / Procedures Referred By Contact Refer red To Contact Surgery Diagnoses Osteoarthritis of left hip, unspecified osteoarthritis type Osteoarthritis of left hip, unspecified osteoarthritis type [M16.12] Sh Periop Services Procedures ARTHROPLASTY, HIP, TOTAL, DIRECT ANTERIOR APPROACH [address] [place] [address] Phone: Referral ID Status Reason Start Date Expiration Date Visits Requ ested Visits Authorized [id number] 1 1 Encounter Details Date Type Department Care Team Description 11/29/2019 - Hospital Encounter [facility], [facility] us post total 12/01/2019 [facility] 55 Ortho rg Samson ement of left Specialty Unit hip (Primary Dx) [address] [place], [place] [facility] [id number] [phone] [facility] [place] [address] Social History Tobacco Use Types Packs/Day Years Used Date Smoking Tobacco: Never Smokeless Tobacco: Never Alcohol Use Standard Drinks/Week Comments Yes 0 (1 standard drink = 0.6 oz pure alcoho l) 2drinks a month Sex Assigned at Date Recorded Not on file documented as of this encounter Last Filed Vital Signs Vital Sign Reading Time Taken Comments Blood Pressure 120/43 12/01/2019 9:50 AM BIRD TENDER Pulse 67 11/29/2019 6:00 PM BIRD TENDER Temperature 36.3 ??C (97.4 ??F) 12/01/2019 9:50 AM BIRD TENDER Respiratory Rate 16 12/01/2019 9:50 AM BIRD TENDER Oxygen Saturation 96% 12/01/2019 9:50 AM BIRD TENDER Inhaled Oxygen Concentration - - Weight 108 kg (238 lb) 11/29/2019 8:06 AM BIRD TENDER Height 165.1 cm (5' 5) 11/29/2019 8:06 AM BIRD TENDER Body Mass Index 39.61 11/29/2019 8:06 AM BIRD TENDER documented in this encounter Discharge Summaries Yuni Kyle - 11/30/2019 3:23 PM CST Discharge Summary Vielka Yap Date of : 1935 Age: [age] year old Date of Admission: 11/29/2019 Date of Discharge: 12/01/2019 10:45 AM Admitting Physician: Tomas Eckert MD Discharge Physician: Tomas Eckert MD Primary Provider: Saw Alejandra Admission Diagnoses: Osteoarthritis left hip Discharge Diagnosis: Same Surgical Procedure: left hip replacement Secondary Diagnosis: hypertension and surgical blood loss anemia Discharge Disposition: Admited to home care Discharged to home Medications Prior to Admission: No medications prior to admission. Discharge Medications: Discharge Medication List as of 12/01/2019 8:41 AM START taking these medications Details enoxaparin ANTICOAGULANT (LOVENOX) 40 MG/0.4ML syringe Inject 0.4 mLs (40 mg) Subcutaneous every 24 hours for 10 days, Disp-10 Syringe, R-0, E-Prescribe CONTINUE these medications which have CHANGED Details oxyCODONE (ROXICODONE) 5 MG tablet Take 1-2 tablets (5-10 mg) by mouth every 4 hours as needed for moderate to severe pain, Disp-60 tablet, R-0, Local Print CONTINUE these medications which have NOT CHANGED Details acetaminophen (TYLENOL) 650 MG CR tablet Take 650-1,300 mg by mouth every 8 hours as needed for mildpain or fever, Historical buPROPion (WELLBUTRIN XL) 150 MG 24 hr tablet Take 300 mg by mouth every morning (Takes 2 x 150mg = 300mg), Historical celecoxib (CELEBREX) 200 MG capsule Take 200 mg by mouth 2 times daily At 0800 and 2000, Historical esomeprazole (NEXIUM) [address] capsule Take 20 mg by mouth daily as needed , Historical fish oil-omega-3 fatty acids 1000 MG capsule Take 1 g by mouth daily, Historical furosemide (LASIX) 20 MG tablet Take 20 mg by mouth daily as needed, Historical levothyroxine (SYNTHROID/LEVOTHROID) 25 MCG tablet Take 25 mcg by mouth daily EDUARDA Synthroid, Historical lidocaine (LIDODERM) 5 % patch Place 1 patch onto the skin daily as needed To prevent lidocaine toxicity, patient should be patch free for 12 hrs daily. Historical lisinopril-hydrochlorothiazide (PRINZIDE/ZESTORETIC) 20-12.5 MG tablet Take 1 tablet by mouth daily,Historical oxybutynin ER (DITROPAN-XL) 10 MG 24 hr tablet Take 10 mg by mouth daily, Historical SENNA PO Take 1 tablet by mouth daily as needed , Disp-14, R-0, Historical simvastatin (ZOCOR) 10 MG tablet Take 10 mg by mouth At Bedtime, Historical traMADol (ULTRAM) 50 MG tablet Take 50 mg by mouth 3 times daily as needed for severe pain, Historical Consultations: No consultations were requested during this admission Hospital Course: The patient was admitted after the surgical procedure. The patient underwent an uneventfulleft hip replacement. Postoperatively, anticoagulation with Lovenox was started. No transfusion was required. The patient will be discharged to home with home health care. Home medications have been reconciled. oxycodone 5 mg. was prescribed for pain. Lovenox will be prescribed. Pending Results: None Discharge Instructions and Follow-Up: Discharge activity: use a walker Discharge follow-up: Follow up with Dr. Eckert in 2 weeks Outpatient therapy: None Home Care agency: [facility] Supplies and equipment: Walker Wound care: dry dressing daily and as needed Other instructions: None TENDER documented in this encounter Medications at Time of Discharge Medication Sig Dispensed Refills Start Date End Date acetaminophen (TYLENOL) Take 650-1,300 mg by 0 650 MG CR tablet mouth every 8 hours as needed for mild pain or fever buPROPion (WELLBUTRIN Take 300 mg by mouth 0 XL) 150 MG 24 hr tablet every morning (Takes 2 x 150mg = 300mg) celecoxib (CELEBREX) Take 200 mg by mouth 0 200 MG capsule 2 times daily At 0800 and 2000 esomeprazole (NEXIUM) Take 20 mg by mouth [address] capsule daily as needed fish oil-omega-3 fatty Take 1 g by mouth 0 acids 1000 MG capsule daily furosemide (LASIX) 20 Take 20 mg by mouth 0 MG tablet daily as needed levothyroxine Take 25 mcg by mouth 0 (SYNTHROID/LEVOTHROID) daily EDUARDA Synthroid 25 MCG tablet lidocaine (LIDODERM) 5 Place 1 patch onto 0 % patch the skin daily as needed To prevent lidocaine toxicity, patient should be patch free for 12 hrs daily. lisinopril-hydrochlorot Take 1 tablet by 0 hiazide mouth daily (PRINZIDE/ZESTORETIC) 20-12.5 MG tablet oxybutynin ER Take 10 mg by mouth 0 (DITROPAN-XL) 10 MG 24 daily hr tablet oxyCODONE (ROXICODONE) Take 1-2 tablets 60 tablet 0 020 5 MG tabletIndications: (5-10 mg) by mouth Status post total every 4 hours as replacement of left hip needed for moderate to severe pain SENNA PO Take 1 tablet by 14 0 10/15/2007 mouth daily as needed simvastatin (ZOCOR) 10 Take 10 mg by mouth 0 MG tablet At Bedtime traMADol (ULTRAM) 50 MG Take 50 mg by mouth 3 0 tablet times daily as needed for severe pain enoxaparin Inject 0.4 mLs (40 10 Syringe 0 11/30/20192019 ANTICOAGULANT (LOVENOX) mg) Subcutaneous 40 MG/0.4ML every 24 hours for 10 syringeIndications: days Status post total replacement of left hip documented as of this encounter Progress Notes Tomas Eckert MD - 12/01/2019 7:03 AM CST Vielka Yap 12/01/2019 POD #2 Doing well. Pain well-controlled. Tolerating physical therapy and rehabilitation well. Feeling much better today. Temperatures: Current - Temp: 98.1 ??F (36.7 ??C); Max - Temp Av.7 ??F (36.5 ??C) Min: 97.1 ??F(36.2 ??C) Max: 98.1 ??F (36.7 ??C) Pulse range: No data recorded Blood pressure range: Systolic (24hrs), Av , Min:113 , Max:145 ; Diastolic (24hrs), Av, Min:36, Max:52 CMS: intact Labs: Hemoglobin Date Value Ref Range Status 11/30/2019 10.4 (L) 11.7 - 15.7 g/dL Final ] PLAN: Discharge plan: home this morning Karla Jaquez OT - 11/30/2019 4:40 PM CST 11/30/19 1100 Quick Adds Type of Visit Initial Occupational Therapy Evaluation Living Environment Lives With spouse Living Arrangements house Home Accessibility (3 steps to enter) Transportation Anticipated family or friend will provide Living Environment Comment Pt. reports she has a BSC, higher toilet/vanity support, walk-in shower w/ shower chair, hand-held shower hose;pt. uses a 4WW for mobility, has a hospital bed(has only used X3 days);also has nurse esthetician, sock- aide and LHSH. Pt.very concerned about getting into home/stairs. Self-Care Usual Activity Tolerance fair Current Activity Tolerance fair Regular Exercise (Home PT) Equipment Currently Used at Home dressing device;hospital bed;raised toilet;shower chair;walker, rolling;other (see comments) (hand-held shower hose) Activity/Exercise/Self-Care Comment Pt. reports she has had 4 falls in the last 2 months, [address] [facility], resulting in ER visits, getting Home PT;Pt. repports Bshoulder painful since falls, but believes she may have nerve impingment BUE;also related she blileves she may have fibromyalgia. Pt. reports she has had 2 visits from [employer] who assists w/bathing, able to dress UE, does not dress LE--stays in pj's;pt. indep./mod. indep. w/ toileting;spouse has been doing more of the home mgmt. tasks since falls/increased pain. Pt. also reports she has sciatica which is limiting. Pt. related her spouse has fractured ribs and is not going to be able to assist/lift at home. Functional Level Ambulation 1-->assistive equipment Transferring 1-->assistive equipment Toileting 0-->independent Bathing 3-->assistive equipment and person Dressing 2-->assistive person (able to dress UE's;[employer] assist w/ LE's) Eating 0-->independent Communication 0-->understands/communicates without difficulty Swallowing 0-->swallows foods/liquids without difficulty Fall history within last six months yes Number of times patient has fallen within last six months 4 General Information Onset of Illness/Injury or Date of Surgery - Date 11/29/19 Referring Physician Yuni Kyle PA-C Patient/Family Goals Statement Pt. does not want to go home--wants TCU Additional Occupational Profile Info/Pertinent History of Current Problem LEFT TOTAL HIP ARTHROPLASTY DIRECT ANTERIOR APPROACH Precautions/Limitations fall precautions General Observations pt. up in WC, spouse present;Pt. stated I am not getting up. I can't move my leg. General Info Comments Pt concerned about spouse being able to assist at home. Cognitive Status Examination Orientation orientation to person, place and time Cognitive Comment intact;anxious Visual Perception Visual Perception Comments no vision problems noted/reported Sensory Examination Sensory Comments baseline neuropathy feet Pain Assessment Patient Currently in Pain Yes, see Vital Sign flowsheet (L hip, B shoulders) Integumentary/Edema Integumentary/Edema Comments reports past LE edema Posture Posture forward head position;protracted shoulders Range of Motion (ROM) ROM Comment shoulder flexionlimited to grossly 90 degrees B'ly(recent falls, also believes has nerveimpingment in both shoulders);elbow thru hands=WNL/WFL Strength Strength Comments WFL Hand Strength Hand Strength Comments WNL Mobility Bed Mobility Comments mod. A for LE's Transfer Skill: Sit to Stand Level of [place]: Sit/Stand contact guard Physical Assist/Nonphysical Assist: Sit/Stand verbal cues;1 person assist Transfer Skill: Sit to Stand weight-bearing as tolerated Assistive Device for Transfer: Sit/Stand rolling walker Toilet Transfer Toilet Transfer Comments has a BSC + higher toilets/vamity at home Transfer Skill: Toilet Transfer Toilet Transfer Skill Comments walk-in shower/assist for bathing/DME Balance Balance Comments impaired Lower Body Dressing Level of [place]: Dress Lower Body minimum assist (75% patients effort) Toileting Level of [place]: Toilet stand-by assist Grooming Level of [place]: Grooming stand-by assist Instrumental Activities of Daily Living (IADL) Previous Responsibilities (spouse has been completing more of the IADL's lately) Activities of Daily Living Analysis Impairments Contributing to Impaired Activities of Daily Living balance impaired;fear and anxiety;flexibility decreased;pain;ROM decreased;strength decreased (decreased strength/ROM LLE) General Therapy Interventions Planned Therapy Interventions ADL retraining Clinical Impression Criteria for Skilled Therapeutic Interventions Met yes, treatment indicated OT Diagnosis Decline in ADL performance Influenced by the following impairments pain, decreased flexibility, impaired balance, decreased strength/ROM LLE Assessment of Occupational Performance 3-5 Performance Deficits Identified Performance Deficits Currently below baseline w/ dressing,grooming, toileting, fx. transfers Clinical Decision Making (Complexity) Low complexity Therapy Frequency Daily Predicted Duration of Therapy Intervention (days/wks) 2-3 days Anticipated Equipment Needs at Discharge other (see comments) (leg animation director;grab bars) Anticipated Discharge Disposition Home;Home with Assist;Home with Home Therapy Risks and Benefits of Treatment have been explained. Yes Patient, Family & other staff in agreement with plan of care Yes [facility]-PAC TM 6 Clicks ?? 2016, Trustees of [facility], under license to [employer]. All rights reserved. 6 Clicks Short Forms Daily Activity Inpatient Short Form [facility]??? 6 Clicks Daily Activity Inpatient Short Form 1. Putting on and taking off regular lower body clothing? 3 - A Little 2. Bathing (including washing, rinsing, drying)? 3 - A Little 3. Toileting, which includes using toilet, bedpan or urinal? 3 - A Little 4. Putting on and taking off regular upper body clothing? 4 - None 5. Taking care of personal grooming such as brushing teeth? 4 - None 6. Eating meals? 4 - None Daily Activity Raw Score (Score out of 24.Lower scores equate to lower levels of function) 21 Total Evaluation Time Total Evaluation Time (Minutes) 18 TENDER Joseline Rush, PT - 11/30/2019 11:46 AM CST 11/30/19 0953 Quick Adds Type of Visit Initial PT Evaluation Living Environment Lives With spouse Living Arrangements house ([facility]) Home Accessibility stairs to enter home;stairs within home Number of Stairs, Main Entrance 3 Stair Railings, Main Entrance none Number of Stairs, Within Home, Primary none Stair Railings, Within Home, Primary none Transportation Anticipated family or friend will provide Living Environment Comment Pt reports her is unable to lift. Self-Care Usual Activity Tolerance moderate Current Activity Tolerance fair Regular Exercise No Equipment Currently Used at Home walker, rolling Activity/Exercise/Self-Care Comment Pt owns 4WW and FWW. Functional Level Prior Ambulation 1-->assistive equipment Transferring 1-->assistive equipment Fall history within last six months yes Number of times patient has fallen within last six months 4 General Information Onset of Illness/Injury or Date of Surgery - Date 11/29/19 Referring Physician Yuni Kyle Patient/Family Goals Statement I can't go home. Pertinent History of Current Problem (include personal factors and/or comorbidities that impact the POC) 84 y/o female POD # 1 HERON. Precautions/Limitations fall precautions Weight-Bearing Status - LLE weight-bearing as tolerated General Observations Pt in supine upon arrival of therapist. General Info Comments Ambulate with assist. Cognitive Status Examination Orientation orientation to person, place and time Level of Consciousness alert Follows Commands and Answers Questions 100% of the time Personal Safety and Judgment intact Pain Assessment Patient Currently in Pain (L hip pain at rest: 8-9/10) Integumentary/Edema Integumentary/Edema Comments L hip incision covered with dressing. Posture Posture Comments Noted forward head and shoulder posture upon sitting EOB and standing at FWW. Range of Motion (ROM) ROM Comment Limited L hip ROM secondary to hip precautions and pain, otherwise B LEs WFL. Strength Strength Comments Not formally assessed, pt demonstrates at least 3/5 grossly in B LEs with functional mobility. Bed Mobility Bed Mobility Comments Supine-sit with Melvina of 2. Transfer Skills Transfer Comments Sit <> stand with FWW and CGA. Gait Gait Comments Gait training of 5' with FWW and CGA. Balance Balance Comments Noted good seated and standing balance at FWW. Sensory Examination Sensory Perception Comments Pt reports numbness/tingling in B LEs at baseline. General Therapy Interventions Planned Therapy Interventions bed mobility training;gait training;transfer training;strengthening;ROM Clinical Impression Criteria for Skilled Therapeutic Intervention yes, treatment indicated PT Diagnosis Difficulty with gait. Influenced by the following impairments Pain, Impaired L hip ROM, Decreased strength, Decreased activity tolerance Functional limitations due to impairments Limited functional mobility requiring AD and assist of 1-2. Clinical Presentation Stable/Uncomplicated Clinical Presentation Rationale Based on PMH, current presentation, and social support. Clinical Decision Making (Complexity) Low complexity Therapy Frequency 2x/day Predicted Duration of Therapy Intervention (days/wks) 2 days Anticipated Equipment Needs at Discharge walker Anticipated Discharge Disposition Other (see comments) (Defer to Ortho MD/PA) Risk & Benefits of therapy have been explained Yes Patient, Family & other staff in agreement with plan of care Yes [facility] AM-PAC TM 6 Clicks ?? 2016, Trustees of [facility], under license to [employer]. All rights reserved. 6 Clicks Short Forms Basic Mobility Inpatient Short Form [facility] AM-PAC??? 6 Clicks V.2 Basic Mobility Inpatient Short Form 1. Turning from your back to your side while in a flat bed without using bedrails? 3 - A Little 2. Moving from lying on your back to sitting on the side of a flat bed without using bedrails? 2 - ALot 3. Moving to and from a bed to a chair (including a wheelchair)? 2 - A Lot 4. Standing up from a chair using your arms (e.g., wheelchair, or bedside chair)? 2 - A Lot 5. To walk in hospital room? 2 - A Lot 6. Climbing 3-5 steps with a railing? 1 - Total Basic Mobility Raw Score (Score out of 24.Lower scores equate to lower levels of function) 12 Total Evaluation Time Total Evaluation Time (Minutes) 5 TENDER Yuni Kyle - 11/30/2019 8:07 AM CST ORTHO PROGRESS NOTE Procedure(s): LEFT TOTAL HIP ARTHROPLASTY DIRECT ANTERIOR APPROACH -1 Day Post-Op Doing well. Pain controlled adequately at rest No concerns. Vital Signs with Ranges Temp: [96.8 ??F (36 ??C)-98.5 ??F (36.9 ??C)] 98 ??F (36.7 ??C) Pulse: [50-68] 67 Heart Rate: [50-75] 69 Resp: [8-27] 16 BP: (99-155)/(44-73) 144/52 SpO2: [93 %-100 %] 97 % I/O last 3 completed shifts: In: 2682 [P.O.:240; I.V.:2442] Out: 1400 [Urine:1400] Recent Labs Lab 11/30/19 0654 HGB 10.4* Dressing clean, dry and intact. Calves soft bilaterally Swelling appropriate for post operative condition Able to perform a quad contraction on the left. Able to perform DF and PF Plan: -WBAT -Progress Physical Therapy as able. -Continue pain control measures -Lovenox. -Discharge to home with home health Yuni Kyle PA-C TENDER Naun HernandezJune - 11/29/2019 8:03 AM CST Medication History Completed by Medication Scribe Admission medication history interview status for the 11/29/2019 admission is complete. See [facility] admission navigator for prior to admission medications Medication history sources: Patient, Surescripts, H&P and Patient's home med list Medication history source reliability: Good Adherence assessment: N/A Not Observed Significant changes made to the medication list: None Additional medication history information: None Medication reconciliation completed by provider prior to medication history? No Time spent in this activity: 35 minutes Prior to Admission medications Medication Sig Last Dose Taking? Auth Provider acetaminophen (TYLENOL) 650 MG CR tablet Take 650-1,300 mg by mouth every 8 hours as needed for mildpain or fever 11/28/2019 at prn Yes Reported, Patient buPROPion (WELLBUTRIN XL) 150 MG 24 hr tablet Take 300 mg by mouth every morning (Takes 2 x 150mg = 300mg) 11/28/2019 at am Yes Reported, Patient celecoxib (CELEBREX) 200 MG capsule Take 200 mg by mouth 2 times daily At 0800 and 2000 11/28/2019 [id number] Yes Reported, Patient esomeprazole (NEXIUM) [address] capsule Take 20 mg by mouth daily as needed 11/25/2019 at prn Yes Reported, Patient fish oil-omega-3 fatty acids 1000 MG capsule Take 1 g by mouth daily 11/22/2019 Yes Reported, Patient furosemide (LASIX) 20 MG tablet Take 20 mg by mouth daily as needed 11/28/2019 at prn Yes Reported, Patient levothyroxine (SYNTHROID/LEVOTHROID) 25 MCG tablet Take 25 mcg by mouth daily EDUARDA Synthroid 11/29/2019 at 0600 Yes Reported, Patient lidocaine (LIDODERM) 5 % patch Place 1 patch onto the skin daily as needed To prevent lidocaine toxicity, patient should be patch free for 12 hrs daily. 11/22/2019 Yes Reported, Patient lisinopril-hydrochlorothiazide (PRINZIDE/ZESTORETIC) 20-12.5 MG tablet Take 1 tablet by mouth daily 11/28/2019 at am Yes Reported, Patient oxybutynin ER (DITROPAN-XL) 10 MG 24 hr tablet Take 10 mg by mouth daily 11/28/2019 at am Yes Reported, Patient oxyCODONE IR (ROXICODONE) 5 MG tablet Take 1 tablet (5 mg) by mouth every 6 hours as needed for pain11/28/2019 at prn Yes Mykel Solis MD SENNA PO Take 1 tablet by mouth daily as needed 11/27/2019 at prn Yes Nader Garibay MD simvastatin (ZOCOR) 10 MG tablet Take 10 mg by mouth At Bedtime 11/27/2019 Yes Reported, Patient traMADol (ULTRAM) 50 MG tablet Take 50 mg by mouth 3 times daily as needed for severe pain 11/28/2019at prn Yes Reported, Patient TENDER documented in this encounter Consult Notes Adriana Funk RN - 12/01/2019 10:05 AM CSTAssociated Order(s): SOCIAL WORK IP CONSULT Care Transition Initial Assessment - RN Met with: Patient and Family. DATA Active Problems: S/P total hip arthroplasty Cognitive Status: awake, alert and oriented. Contact information and PCP information verified: Yes Lives With: spouse Living Arrangements: house Insurance concerns: No Insurance issues identified ASSESSMENT Patient currently receives the following services: [facility], PT/OT/FOOT TENDER Identified issues/concerns regarding health management: NA PLAN Financial costs for the patient include NA . Patient given options and choices for discharge Home with homecare . Patient/family is agreeable to the plan? Yes. Patient anticipates discharging to Home . Patient anticipates needs for home equipment: No Transportation/person available to transport on day of discharge is spouse and have they been notified/set up 1100 today. Plan/Disposition: Home Appointments: Set up prior to hospitalization Homecare orders, face to face, progress notes faxed to [facility]. . First visit will be tomorrow. Care Acute Care Nursing Assistant (CTS) will continue to follow as needed. Adriana Funk RN, BSN Inpatient Care Coordination [phone] [facility] TENDER documented in this encounter Nursing Notes Carri Bermeo RN - 11/29/2019 4:07 PM CST Pt updated on delay in bed status, pain is well managed, able to converse easily with nursing staff.VSS, will continue to monitor. TENDER Eli Bang RN - 11/29/2019 3:54 PM CST 1600 [facility] TENDER Eli Bang RN - 11/29/2019 3:04 PM CST 1500 pt wide awake, conversing, eating crackers. TENDER Eli Bang RN - 11/29/2019 2:58 PM CST 1450 5th floor called me and said they found her looking for patient. Nurse upstairs told home she is doing well they are waiting for a discharge. will wait in 5th floor waiting room until she comes upstairs, aware she is doing well. Ok with dr griffin for pt to go upstairs TENDER Mayra Ramirez RN - 11/29/2019 1:03 PM CST Transferred Care to [facility]. TENDER documented in this encounter Miscellaneous Notes Plan of Care - Erika Javier RN - 12/01/2019 10:43 AM CST Patient A&Ox4, VSS on RA with low diastolic BP - asymptomatic. Pain well managed with PRN oxycodone. Regular diet. Up Ax1 GB/W. Voiding well. CMS intact with baseline neuropathy. Discharged home with spouse - questions answered, medications reviewed. TENDER Plan of Care - Joseline Rush PT - 12/01/2019 8:41 AM CST Patient plan: Return home with spouse. Current status: Pt arrived to therapy session with report of L hip pain of 4/10. Pt performed sit <> stand with FWW and Melvina, cues provided for upright posture upon standing. Pt ambulated 100 feet with FWW and CGA. Pt navigated 3 stairs with 1 rail and SEC, Melvina, pt required cues for sequencing and upright posture. Pt sitting up in chair at end of session. Anticipated status at discharge: Melvina for bed mobility and transfers with FWW, CGA for ambulation with FWW, Melvina to navigate stairs with SEC and 1 railing Physical Therapy Discharge Summary Reason for therapy discharge: Discharged to home. Progress towards therapy goal(s). See goals on Care Plan in [facility] electronic health record for goal details. Goals partially met. Barriers to achieving goals: discharge from facility. Therapy recommendation(s): Continue home exercise program. TENDER Plan of Care - Kristin Doll OT - 12/01/2019 8:15 AM CST Patient plan: Home Current status: While seated/standing pt completed LE dressing including don socks with SBA and AE, and don pants with moderate assist and AE. Anticipated status at discharge: SBA-moderate A of 1 with LE dressing using AE. CGA of 1 for toileting. Assist for bathing-(has [employer] services);continued assist from spouse for IADL's/household tasks. Occupational Therapy Discharge Summary Reason for therapy discharge: Discharged to home. Progress towards therapy goal(s). See goals on Care Plan in [facility] electronic health record for goal details. Goals not met. Barriers to achieving goals: discharge from facility. Therapy recommendation(s): SBA-moderate A of 1 with LE dressing using AE. CGA of 1 for toileting. Assist for bathing-(has [employer] services);continued assist from spouse for IADL's/household tasks. TENDER Plan of Care - Dani Saenz RN - 12/01/2019 5:39 AM CST Date/Time: 11.30.19 [id number] Trauma/Ortho/Medical (Choose one): Ortho Diagnosis: Left Total Hip Anterior POD#: 1 Mental Status: A&Ox4. Anxious Activity/dangle: A1-2 + GBW Diet: Regular + Low sodium Pain: 02/24: Oxycodone. Pain in hip and shoulders. Proctor/Voiding: [place], + voiding, + BM Tele/Restraints/Iso: NA 02/: 97% RA D/C Date: 12.01.19 Other Info: Cpap @ night. Low diastolic BP TENDER Plan of Care - Driss Espinal RN - 11/30/2019 5:34 PM CST VSS. Baseline numbness BLE. Up with 1 and walker. Pain managed with oxycodone and tylenol. Dressing C/D/I. Dr. Eckert call and ok'd to discharge pt tomorrow morning by 11 am. A&OX4. TENDER Plan of Care - Karla Esparza OT - 11/30/2019 4:45 PM CST Patient plan: My will not be able to care for me at home--he can't lift. Pt reports spousehas rib fx.'s/lifting restriction--wants to go to TCU. Current status: Evaluation completed and treatment initiated. Pt. resides in a townhouse w/ her spouse, reports she has had several falls recently w/ 2 visits to ER. Pt. uses a WW(since August, prior to that, using a cane), has had 2 visits from [employer] services(comes 1X/week) to assist w/ bathing + HomePT. Pt. reports she is able to dress upper-body at baseline, does not dress lower-body, [facility] [employer] assists). Pt. reports she is able to complete toileting, spouse is doing more of the household tasks. Pt. has a BSC, higher toilet/vanity, walk-in shower w/ shower chair. Pt. also hasreacher, sock-aide and LHSH. Currently:Pt. up in WC, initially stating she was not going to get up and that she could not move LLE. Is self-limiting;encouraged partcipation--after extended conversation/th.listening, pt. agreeable;pt. able to demo. sit-stand w/ CGA/vc's/WW;Pt. ambulated to/from bathroom w/ CGA/WW, moving slowly, but doing well,vc's for posture/seq.;Pt. stood for approx. 5 mi. at sink to complete grooming/hyg. task w/ SBA, good standing sam./balance;completed toileting w/ SBA-CGA, needs to stand for hyg./wiping(does this at home), overall CGA for commode/toilet transfer;pt. sat EOB for instruction in AE/comp. techs. w/ LE dressing--pt. able to janell incont. pad w/ nurse esthetician/min. A for threading LEs, SBA for standing to pull-up;pt. needed overall min. A/use of sock-aide to janell socks--has AE at home.Pt. fatigued at end of session, needed mod. A for LE's for sit-supine.Overall, moving well, reports she is doing better. Anticipated status at discharge: CGA-min. A w/ LE dressing using AE, toileting, bathing-(has [employer] services);continued assist from spouse for IADL's/household tasks. TENDER Plan of Care - Cleo Hernadez RN - 11/30/2019 2:23 PM CST Pt up with 1, oxycodone for pain. Voiding BSC. Pt very hesitant to discharge, MD updated. Pt passed OT. Plan to discharge after PT pending stairs. TENDER Plan of Care - Joseline Rush, PT - 11/30/2019 10:38 AM CST Patient plan: I can't go home. I will stay here for three days and then go to rehab. Current status: Orders received, evaluation completed, and treatment initiated. Patient is a 84 y/o female POD # 1 L HERON. Pt lives with spouse, 3 stairs to enter/exit and all needs are met on the main level. Pt reports independence at baseline with use of 4WW. Pt reported L hip pain of 9/10 at rest, pt was very hesitant to initiate OOB mobility due to pain and required extensive encouragement and education on importance of OOB mobility. Pt performed supine- sit with Melvina of 2. Sit <> stand withFWW and CGA, cues provided for upright posture and PLB as not pt became anxious upon standing. Pt ambulated 20 feet with FWW and CGA, continuous 1-step cues for sequencing as pt frequently stopping stating, I can't do this. Pt required 20 minutes to ambulate the distance of 20 feet. Pt sitting up inchair at end of session. Discussed plan for PM session to trial stairs to safely enter/exit house. Anticipated status at discharge: Melvina of 2 for bed mobility, CGA for transfers and ambulation with FWW, Melvina for stairs PM Session: Patient arrived to therapy gym with report of L hip pain of 10/10. Pt performed sit <> stand from wheelchair with FWW and Melvina. Pt navigated 4 stairs with B railings and Melvina, 3 stairs with 1 railing and SEC, Melvina. Encouraged pt to attempt stairs an additional time once her spouse arrived to session, pt stated, There is no point he can't help anyway. Pt ambulated 150 feet with FWWand CGA, noted improved B foot clearance with increased gait speed. Noted pt anxious at times requiring 1-step cues to focus on ambulation. Pt sitting up in chair at end of session. TENDER Plan of Care - Eva Abraham RN - 11/30/2019 7:05 AM CST POD 1 L HERON anterior approach. A&O. VSS on home CPAP overnight. Dressing CDI, CMS intact. Proctor removed this AM, DTV. Regular diet, tolerating. Not OOB this shift. Managing pain with sched Tyl, iceand oxy PRN. Plan for PT/OT/SW. Discharge today pending. TENDER Plan of Care - Zohreh Rosa RN - 11/29/2019 10:44 PM CST Pt arrived from PACU this evening. Pt has c/o of bilateral shoulder pain more then her hip. Ice packs given for hip and bilateral shoulders. Dressing to left hip is c/d/I. Pt has moderate strength in lower extremities. Oxycodone given x1 for pain. VSS, on room air but wears cpap at night. TENDER Op Note - Tomas Eckert MD - 11/29/2019 12:06 PM CST 11/29/2019 Vielka Snyder [facility]lim[facility]arc Preoperative diagnosis: End-stage osteoarthritis left hip Postoperative diagnosis: Same Procedure: Total hip replacement left hip, direct anterior approach Anesthesia: Gen. Surgeon: Dr. Tomas Eckert Asst.: Yuni Kyle PA-C Description of procedure: The patient is brought to the operating, supine upon a gurney.Preoperative antibiotic were given, aswell as tranexamic acid.Gen. Anesthesia was induced. A Proctor catheter was placed. The patient was placed in the supine position on the??Abby table.?? Preoperative station cashier views of both hips are made. The left lower extremity, flank, and anterior abdomen are prepped and draped in customary fashion. Abrief timeout was held verify the procedure and laterality. A slightly oblique incision was made over the tensor fascia sam muscle. Dissection was carried out over the muscular fascia. The muscle was dissected off the fascia,and retracted laterally. The circumflex vessels were identified,cauterized, and divided.Cobra retractors were placed superiorly and inferiorly around the femoral neck. The hip capsule was opened in a T fashion, and tagging sutures were placed. The Cobra re- tractors were now placed directly around the femoral neck. The osteotomy was made with an oscillating saw, and the femoral head and neck were extracted.A power corkscrew was utilized. During the osteotomy and extraction of the femoral head,a small amount of traction was placed on the limb. The labrum was debrided. The acetabulum was reamed with spherical reamers up to 51 mm. A Biomet G7 52 mm shell was impacted in place. A single 30 mm screw was placed up into the ilium, and a trial liner was placed. All traction was released from the limb. The hip was extended, adducted, and externally rotated. A bone hook was used to keep the proximal femur from impinging on the acetabulum.The table hook was placed under the proximal femur, and the femur was lifted anteriorly. Releases were performed on the medial surface of the greater trochanter, to facilitate placement of retractors. Broaching was performed with the Biomet Taperloc broaches up to size 9. At intervals during the broaching process, x-rays were made to ensure proper placement. Trial reductions were performed. Based on the trial reductions, a Biomet Taperloc femoral stem, size 9 high offset was impacted into place. A standard acetabular liner, size E, with a 36 mm Internal diameter was placed. We ultimately choose the standard ceramic femoral head, 36 mm in diameter. This was impacted on the taper, and final reductions were performed. Based on C-arm views, leg lengths appeared to be equal. The hip was stable even when traction was applied with a bone hook. The wound was copiously irrigated with pulsatile lavage and antibiotic solution. The capsule was re-approximated with the tagging sutures. The soft tissues were infiltrated with Marcaine and Toradol. The subcutaneous tissues were closed with 2-0 Vicryl, after closure of the fascia with 0 Vicryl. The skin was reapproximated with monocryl. A bulky sterile dressing was applied. The patient left the room in satisfactory condition. Final counts were correct. ? TENDER Brief Op Note - Tomas Eckert MD - 11/29/2019 12:04 PM BIRD TENDER [facility] Brief Operative Note Pre-operative diagnosis: Osteoarthritis of left hip, unspecified osteoarthritis type [M16.12] Post-operative diagnosis osteoarthritis left hip Procedure: Procedure(s): LEFT TOTAL HIP ARTHROPLASTY DIRECT ANTERIOR APPROACH Surgeon: Surgeon(s) and Role: * Tomas Eckert MD - Primary * Yuni Kyle - Assisting Anesthesia: General Estimated blood loss: 300 ml Drains: None Specimens: * No specimens in log * Findings: None. Complications: None. Implants: Implant Name Type Inv. Item Serial No. Is/It Project Manager Lot No. [id number] No. Used IMP SHELL BIOM G7 ACETAB PPS ANN HOLE 52MM SZ E [id number] Total Joint Component/Insert IMP SHELL BIOM G7 ACETAB PPS [place] 52MM SZ E [id number] [employer] [id number] Left 1 IMP SCR ZIM 6.5X30MM ACET CUP SELF TAP [id number] Metallic Hardware/[place] IMP SCR ZIM 6.5X30MM ACET CUP SELF TAP [id number] [employer] [id number] Left 1 IMP STEM FEM BIOM TAPERLOC HI OFFSET TYPE 1 [id number] Total Joint Component/Insert IMP STEM FEM BIOM TAPERLOC HI OFFSET TYPE 1 SZ9 [id number] [employer] [id number] Left 1 G7 ACETABULAR LINER NEUTRAL, 36MM HEAD SIZE, E LINER SIZE BIOMET [id number] Left 1 BIOLOX DELTA HIP SYSTEM MODULAR CERAMIC HEAD, TYPE 1 TAPER, 36MM HEAD 0 STANDARD NECK BIOMET [id number] 1 TENDER documented in this encounter Plan of Treatment Scheduled Referrals Name Type Priority Associated Diagnoses Order S chedule Home Care PT Referral Referral Routine Status post total O rdered: 11/30/2019 for Hospital Discharge replacement of lef t hip Home Care OT Referral Referral Routine Status post total O rdered: 11/30/2019 for Hospital Discharge replacement of lef t hip Home care nursing Referral Routine Status post total Order ed: 12/01/2019 referral replacement of left hip documented as of this encounter Procedures Procedure Name Priority Date/Time Associated Diagnosis Comme nts HEMOGLOBIN Routine 12/01/2019 6:54 AM Status post total Resu lts for this BIRD TENDER replacement of left procedur e are in hip the results section. GLUCOSE BY METER Routine 12/01/2019 6:44 AM Status post total Results for this BIRD TENDER replacement of left procedur e are in hip the results section. HEMOGLOBIN Routine 11/30/2019 6:54 AM Results f or this BIRD TENDER procedure are i n the results section. CREATININE Routine 11/30/2019 6:54 AM Results f or this BIRD TENDER procedure are i n the results section. PLATELET COUNT Routine 11/29/2019 7:25 PM Results for this BIRD TENDER procedure are i n the results section. XR PELVIS AND HIP STAT 11/29/2019 1:36 PM Resu lts for this PORTABLE LEFT 1 BIRD TENDER procedure ar e in VIEW the results section. XR SURGERY DAGOBERTO Routine 11/29/2019 12:05 Results for this FLUORO LESS THAN 5 PM BIRD TENDER procedure are in MIN W STILLS the results section. ARTHROPLASTY, HIP, 11/29/2019 9:43 AM Osteoarthritis o f left TOTAL, DIRECT BIRD TENDER hip, unspecified ANTERIOR APPROACH osteoarthritis type Special Needs MRSA-MSSA negative POTASSIUM STAT 11/29/2019 8:13 AM BIRD TENDER Resul ts for this procedure are in the resu lts section. CREATININE Routine 11/29/2019 8:13 AM BIRD TENDER Resul ts for this procedure are in the resu lts section. ABO/RH TYPE AND SCREEN STAT 11/29/2019 8:13 AM BIRD TENDER Results for this procedure are in the resu lts section. EKG CARDIAC - HIM SCAN 11/16/2019 12:00 AM BIRD TENDER LAB RESULT - HIM SCAN 11/07/2019 12:00 AM BIRD TENDER documented in this encounter Results (ABNORMAL) Hemoglobin (12/01/2019 6:54 AM BIRD TENDER) P athologist Signature Hemoglobin 8.9 (L) 11.7 - 15.7 12/01/2019 [facility] g/dL 7:[address] [facility] Specimen Anatomical Collection Method Collection Time Receive d Time (Source) Location / / Volume Laterality Blood specimen 12/01/2019 6:54 AM 020 6:55 (specimen) BIRD TENDER AM BIRD TENDER Yuni Sarahleticia Kyle LAB - BLOOD ORDERABLES Performing Organization Address City/State/ZIP Code Phon e Number [facility] [address] [place] [address] [phone] [facility] [address] [place] [address], [place] [phone] (ABNORMAL) Glucose by meter (12/01/2019 6:44 AM BIRD TENDER) P athologist Signature Glucose 137 (H) 70 - 99 12/01/2019 [facility] mg/dL 6:55 AM BIRD TENDER TEST, GLUCOSE Specimen Anatomical Collection Method Collection Time Receive d Time (Source) Location / / Volume Laterality 12/01/2019 6:44 AM 0 6:55 BIRD TENDER AM BIRD TENDER Tomas Eckert MD LAB - BEAKER POCT Performing Organization Address City/State/ZIP Code Phon e Number [facility] POINT OF CARE TEST, GLUCOSE POINT OF CARE TEST, GLUCOSE (ABNORMAL) Creatinine (11/30/2019 6:54 AM BIRD TENDER) P athologist Signature Creatinine 0.99 0.52 - 1.04 11/30/2019 [place] mg/dL 7:38 AM [facility] GFR Estimate 53 (L) >60 11/30/2019 [place] mL/min/{1.7 7:38 AM [facility] 3_m2} [facility] Comment: Non GFR Calc Starting 11/03/2018, serum creatinine ba sed estimated GFR (eGFR) will be calculated using the Chronic Kidney Dise [facility] Epidemiology Collaboration (CKD-EPI) equation. GFR Estimate If 61 >60 mL/min/{1.73_m2} 11/30/2019 7: 38 AM [facility] Comment: GFR Calc Starting 11/03/2018, serum creatinine ba sed estimated GFR (eGFR) will be calculated using the Chronic Kidney Dise [facility] Epidemiology Collaboration (CKD-EPI) equation. Specimen Anatomical Collection Method Collection Time Receive d Time (Source) Location / / Volume Laterality Blood specimen 11/30/2019 6:54 AM 020 6:55 (specimen) BIRD TENDER AM BIRD TENDER Tomas Eckert MD LAB - BLOOD ORDERABLES Performing Organization Address City/State/ZIP Code Phon e Number [facility] [address] [place] [address] [phone] [facility] [address] [place] [address], [place] [phone] (ABNORMAL) Hemoglobin (11/30/2019 6:54 AM BIRD TENDER) athologist Signature Hemoglobin 10.4 (L) 11.7 - 15.7 11/30/2019 [place] g/dL 7:[address] [facility] Specimen Anatomical Collection Method Collection Time Receive d Time (Source) Location / / Volume Laterality Blood specimen 11/30/2019 6:54 AM 020 6:55 (specimen) BIRD TENDER AM BIRD TENDER Yuni Kyle LAB - BLOOD ORDERABLES Performing Organization Address City/State/ZIP Code Phon e Number [facility] [address] [place] [address] [phone] [facility] [address] [place] [address], [place] [phone] Platelet count (11/29/2019 7:25 PM BIRD TENDER) athologist Signature Platelet Count 230 150 - 450 11/29/2019 [place] 10e9/L 7:[address] [facility] Specimen Anatomical Collection Method Collection Time Receive d Time (Source) Location / / Volume Laterality Blood specimen 11/29/2019 7:25 PM 020 7:26 (specimen) BIRD TENDER PM BIRD TENDER Yuni Sarahleticia Kyle LAB - BLOOD ORDERABLES Performing Organization Address City/State/ZIP Code Phon e Number [facility] [address] [place] [address] [phone] [facility] [address] [place] [address], [place] [phone] XR Pelvis w Hip Port Left 1 View (11/29/2019 1:36 PM BIRD TENDER) Anatomical Region Laterality Modality Abdomen/Pelvis Left Digital Radiography Specimen (Source) Anatomical Location Collection Method / Collectio n Time Received Time / Laterality Volume Impressions 11/29/2019 1:57 PM BIRD TENDER IMPRESSION: Unremarkable postoperative appearance of the left hip. KASSY COLON MD Narrative 11/29/2019 1:57 PM BIRD TENDER PORTABLE ONE VIEW PELVIS AND ONE VIEW LEFT HIP November 29, 2019 1:36 PM HISTORY: Postoperative evaluation of the left hip. COMPARISON: Intraoperative images earlie r today. FINDINGS: There are surgical changes of a left total hip arthroplasty. The hardware is intact with no fracture or other complication seen. No other abnormality is demonstrated. Procedure Note Kassy Colon MD - 11/29/2019Fo rmatting of this note might be different from the original. PORTABLE ONE VIEW PELVIS AND ONE VIEW LE FT HIP November 29, 2019 1:36 PM HISTORY: Postoperative evaluation of the left hip. COMPARISON: Intraoperative images earlie r today. FINDINGS: There are surgical changes of a left total hip arthroplasty. The hardware is intact with no fracture or other complication seen. No other abnormality is demonstrated. IMPRESSION: Unremarkable postoperative a ppearance of the left hip. KASSY COLON MD Yuni Smith Anabella IMG DIAGNOSTIC IMAGING ORDER HEATHER XR Surgery DAGOBERTO L/T 5 Min Fluoro w Stills (11/29/2019 12:05 PM BIRD TENDER) Anatomical Region Laterality Modality Abdomen/Pelvis Radio Fluoroscopy Specimen (Source) Anatomical Location Collection Method / Collectio n Time Received Time / Laterality Volume Impressions 11/29/2019 2:24 PM BIRD TENDER IMPRESSION: Three spot intraoperative radiographs demonstrate total hip arthroplasty in normal alignment. No periprosthetic fracture. Total fluoroscopic time is 0.5 minutes. ROMELIA HOANG MD Narrative 11/29/2019 2:24 PM BIRD TENDER SURGERY C-ARM FLUOROSCOPY LESS THAN FIVE MINUTES WITH STILLS 11/29/2019 12:05 PM HISTORY: Left total hip replacement. COMPARISON: None. Procedure Note Romelia Hoang MD - 11/29/2019 SURGERY C-ARM FLUOROSCOPY LESS THAN FIVE MINUTES WITH STILLS 11/29/2019 12:05 PM HISTORY: Left total hip replacement. COMPARISON: None. IMPRESSION: Three spot intraoperative ra diographs demonstrate total hip arthroplasty in normal alignment. No periprosthetic fracture. Total fluoroscopic time is 0.5 minutes. ROMELIA HOANG MD Tomas Eckert MD IMG DIAGNOSTIC IMAGING ORD ERABLES (ABNORMAL) Creatinine (11/29/2019 8:13 AM BIRD TENDER) athologist Signature Creatinine 1.30 (H) 0.52 - 11/29/2019 [place] 1.04 mg/dL 7:35 PM [facility] GFR Estimate 38 (L) >60 11/29/2019 [place] mL/min/{1. 7:35 PM [facility] 73_m2} HOSPITAL Comment: Non GFR Calc Starting 11/03/2018, serum creatinine ba sed estimated GFR (eGFR) will be calculated using the Chronic Kidney Dise [facility] Epidemiology Collaboration (CKD-EPI) equation. GFR Estimate If 44 (L) >60 mL/min/{1.73_m2} 11/29/2019 7: 35 PM [place] Black [facility] Comment: GFR Calc Starting 11/03/2018, serum creatinine ba sed estimated GFR (eGFR) will be calculated using the Chronic Kidney Dise [facility] Epidemiology Collaboration (CKD-EPI) equation. Specimen Anatomical Collection Method Collection Time Receive d Time (Source) Location / / Volume Laterality 11/29/2019 8:13 AM 0 8:14 BIRD TENDER AM BIRD TENDER Juanito Armstrong MD LAB - BLOOD ORDERABLES Performing Organization Address City/State/ZIP Code Phon e Number [facility] [address] [address] [phone] [place] [address] [address] [address], [facility] [phone] Potassium (11/29/2019 8:13 AM BIRD TENDER) athologist Signature Potassium 4.0 3.4 - 5.3 11/29/2019 [place] mmol/L 8:32 AM [facility] Specimen Anatomical Collection Method Collection Time Receive d Time (Source) Location / / Volume Laterality Blood specimen 11/29/2019 8:13 AM 020 8:14 (specimen) BIRD TENDER AM BIRD TENDER Juanito Armstrong MD LAB - BLOOD ORDERABLES Performing Organization Address City/State/ZIP Code Phon e Number [facility] [address] [address] [facility] [address] [address], [place] [phone] ABO/Rh type and screen (11/29/2019 8:13 AM BIRD TENDER) [facility] gist Method Time Signature ABO A 11/29/2019 [place] 9:[address] [facility] RH(D) Neg [facility] Antibody Neg 11/29/2019 [place] Screen 9:03 AM [facility] Test Valid [place] 11/29/2019 [facility] Only At [facility] 8:34 AM BIRD TENDER [facility]PITAL Specimen 12/02/2019 11/29/2019 [place] Expires 8:34 AM [facility] Specimen Anatomical Collection Method Collection Time Receive d Time (Source) Location / / Volume Laterality Blood specimen 11/29/2019 8:13 AM 020 8:14 (specimen) BIRD TENDER AM BIRD TENDER Juanito Armstrong MD LAB - BLOOD BANK TEST ORDER Performing Organization Address City/State/ZIP Code Phon e Number [facility] [address] [address] [facility] [address] [address], [place] [phone] EKG CARDIAC - HIM SCAN (11/16/2019 12:00 AM BIRD TENDER) Specimen (Source) Anatomical Location Collection Method / Collectio n Time Received Time / Laterality Volume 11/16/2019 Narrative This result has an attachment that is no t available. Provider Outside ECG ORDERABLES LAB RESULT - HIM SCAN (11/07/2019 12:00 AM BIRD TENDER) Specimen (Source) Anatomical Location Collection Method / Collectio n Time Received Time / Laterality Volume 11/07/2019 Narrative This result has an attachment that is no t available. Provider Outside [facility] documented in this encounter Visit Diagnoses Diagnosis Status post total replacement of left hi p - Primary S/P total hip arthroplasty Hip joint replacement by other means documented in this encounter Administered Medications Inactive Administered Medications - up to 3 most recent administrations Medication Order MAR Action Action Date Dose Rate Site acetaminophen (TYLENOL) tablet Given 11/29/2019 8:59 AM [facility] TENDER 1,00 0 mg 1,000 mg 1,000 mg, Oral, ONCE, On Fri11/29/19 at 0815, For 1 dose, Maximum acetaminophen dose from all sources = 75 mg/kg/day not to exceed 4 gram, Pre-procedure acetaminophen (TYLENOL) tablet 975 mg Given 12/01/2019 6:19 AM [facility] 975 mg 975 mg, Oral, EVERY 8 HOURS, First dose on Fri11/29/19 at 2200, For 3 days, Administer for multimodal surgical pain management. Maximum acetaminophen dose from all sources = 75 mg/kg/day not to exceed 4 grams/day., Post-procedure Given 11/30/2019 9:10 PM [facility] 975 mg Given 11/30/2019 1:51 PM [facility] 975 mg buPROPion (WELLBUTRIN XL) 24 hr tablet 3 00 mg Given 12/01/2019 8:50 AM [facility] 300 mg 300 mg, Oral, EVERY MORNING, First dose on Fri11/30/19 at 0900, DO NOT CRUSH. Given 11/30/2019 8:21 AM [facility] 300 mg ceFAZolin (ANCEF) intermittent infusion Given 11/30/2019 4:5 6 AM [facility] 2 g 200 mL/hr 2 g in 100 mL dextrose PRE-MIX Routine, 2 g, Intravenous, EVERY 8 HOURS, First dose on Fri11/29/19 at 2000, For 2 doses, First post-op dose due 8 hours after intra-op dose, see eMAR. , Indications: Perioperative Pharmacoprophylaxis, Post-procedure Given 11/29/2019 8:40 PM [facility] 2 g 200 mL/hr celecoxib (celeBREX) capsule 200 mg Given 12/01/2019 8:51 AM [facility] 200 mg 200 mg, Oral, DAILY, First dose on Fri11/30/19 at 0900 Given 11/30/2019 8:21 AM [facility] 200 mg enoxaparin ANTICOAGULANT (LOVENOX) injection Given 0 8:48 AM [facility] 40 mg 40 mg 40 mg, Subcutaneous, EVERY 24 HOURS, First dose on Fri11/30/19 at 0900, Check to make sure start date/time is 12-24 hours post op unless documented complication, AND no sooner than 22 hours post op if spinal anesthesia used. Continue until discharge to home. HOLD if platelet count falls below 50% of baseline or less than 100,000/??L and notify provider., Post-procedure Given 11/30/2019 8:22 AM [facility] 40 mg fentaNYL (PF) (SUBLIMAZE) injection 25-50 Given 11/29/2019 12:56 PM [facility] T[facility] 50 mcg mcg 25-50 mcg, Intravenous, EVERY 2 MIN PRN, other, acute pain, Starting on Fri11/29/19 at 1237, MAX cumulative dose = 250 mcg. Use fentaNYL (SUBLIMAZE) initially, as a short acting agent for acute pain control. If insufficient, or a longer acting agent is needed, begin morphine or HYDROmorphone (DILAUDID) if ordered. For ordered IV doses 1-100 mcg give IV Push undiluted over a minimum of 3-5 minutes., PACU Given 11/29/2019 12:47 PM [facility] 50 mcg HYDROmorphone (PF) (DILAUDID) injection Given 11/29/2019 3:06 PM [facility] T[facility] 0.2 mg 0.3-0.5 mg 0.3-0.5 mg, Intravenous, EVERY 5 MIN PRN, other, acute pain. ??May administer if Respiratory Rate is greater than 10, Starting on Fri11/29/19 at 1237, Max cumulative dose = 2 mg If fentaNYL (SUBLIMAZE) is also ordered, use HYDROmorphone (DILAUDID) if pain control insufficient with fentaNYL (SUBLIMAZE) or a longer acting agent is needed. For ordered IV doses 0.1-4 mg give IV Push undiluted. Administer each 2mg over 2-5 minutes., PACU Given 11/29/2019 2:07 PM [facility] 0.3 mg lactated ringers infusion New Bag 11/29/2019 10:59 AM BIRD TENDER at 25 mL/hr, Intravenous, CONTINUOUS, IF patient NOT on dialysis., Pre-procedure, Starting on Fri11/29/19 at 0815, Until Fri11/29/19 at 1233 New Bag 11/29/2019 9:00 AM B[facility] T[facility] 25 mL/hr lactated ringers infusion New Bag 11/29/2019 2:04 PM B[facility] 100 mL/hr at 100 mL/hr, Intravenous, CONTINUOUS, Continue until IV catheter is weaned, PACU, Starting on Fri11/29/19 at 1245, Until Fri11/29/19 at 1813 levothyroxine (SYNTHROID/LEVOTHROID) tablet Given 12/01/2019 6:19 AM [facility] 25 mcg 25 mcg 25 mcg, Oral, DAILY, First dose on Fri11/30/19 at 0700, Separate oral administration of iron- or calcium-containing products and levothyroxine by at least 4 hours. Given 11/30/2019 6:55 AM BIRD [facility] 25 mcg Lidocaine (LIDOCARE) Patch/Med Applied 12/01/2019 8:03 AM 1 patch Other (see 4 % Patch 1 patch BIRD TENDER comments) 1 patch, Transdermal, EVERY 24 HOURS 0800, Administer over 12 Hours, First dose on Fri11/30/19 at 1115, Apply patch(s) to affected area. To prevent lidocaine toxicity, patient should be patch free for 12 hrs daily. Patches may be cut to smaller size prior to removing release liner. Reminder: Remove previous patch before applying new patch. NEVER APPLY HEAT OVER PATCH which increases absorption and may lead to local anesthetic toxicity. Do not apply over area where liposomal bupivacaine was injected for 96 hours post injection. Patch/Med Applied 11/30/2019 12:04 PM [facility] TEND[facility] 1 patch Other (see comments) lidocaine patch in PLACE First dose on Fri11/30/19 at 1400, Chart every shift, confirming that patch is still in place on patient (no barcode scan needed). Se e patch order for dose information. NEVER APPLY HEAT OVER PATCH which will in crease absorption and may lead to risk of local anesthetic toxicit y. Do not apply over area where liposomal bupivacaine injected for 96 hours. lisinopril-hydrochlorothiazide Given 12/01/2019 8:50 AM BIRD TEND[facility] 1 ta blet (PRINZIDE/ZESTORETIC) 20-12.5 MG per tablet 1 tablet 1 tablet, Oral, DAILY, First dose on Fri11/29/19 at 1815, Hold if systolic is less than 100, or diastolic is less than 70. Given 11/30/2019 8:21 AM BIRD T[facility] 1 tablet Given 11/29/2019 10:12 PM [facility]IRD T[facility] 1 tablet metoclopramide (REGLAN) injection 5 mg 5 mg, Intravenous, Administer over 2 Min utes, EVERY 6 HOURS PRN, nausea, vomiting, Starting on Fri11/29/19 at 1813, This is Step 3 of nausea and vomiting management. Give if nausea not resolved 15 minutes a fter giving prochlorperazine (COMPAZINE). If nausea not resolved in 15-30 minutes, Notify provider. Avoid use if patient has full bowel obstruction or perforation. I rritant. For ordered IV doses 1-10 mg, give IV Push undiluted over 2 minutes., Post-procedure metoclopramide (REGLAN) tablet 5 mg 5 mg, Oral, EVERY 6 HOURS PRN, nausea, v omiting, Starting on Fri11/29/19 at 1813, This is Step 3 of nausea and vomiting ma nagement. Give if nausea not resolved 15 minutes after giving prochlorperazine (C OMPAZINE). If nausea not resolved in 15-30 minutes, Notify provider., Post-procedure ondansetron (ZOFRAN) injection 4 mg 4 mg, Intravenous, EVERY 6 HOURS PRN, nausea, vomiting , Administer over 2-5 Minutes, Starting on Fri11/29/19 at 1813, This is Step 1 of nausea and vomiting management. If nausea not resolved in 15 minutes, go t o Step 2 prochlorperazine (COMPAZINE). Irritant. For ordered IV do ses 0.1-4 mg, give IV Push undiluted over 2-5 minutes., Post-procedure ondansetron (ZOFRAN-ODT) ODT tab 4 mg 4 mg, Oral, EVERY 6 HOURS PRN, nausea, v omiting, Starting on Fri11/29/19 at 1813, This is Step 1 of nausea and vomiting management. If n ausea not resolved in 15 minutes, go to Step 2 prochlorperazine (COMPAZINE). Do not push through foil backing. Peel back foil and gently remove. Place on to ngue immediately. Administration with liquid unnecessary W ith dry hands, peel back foil backing and gently remove tablet. Do not push oral d isintegrating tablet through foil backing. Administer immediately on tongue and oral disintegrati ng tablet dissolves in seconds, then swallow with saliva. Liquid not required ., Post-procedure oxybutynin ER (DITROPAN-XL) 24 hr tablet 10 mg Given 12/01/2019 8:50 AM B[facility] 10 mg 10 mg, Oral, DAILY, First dose on Fri11/29/19 at 1815, DO NOT CRUSH. Given 11/30/2019 8:21 AM B[facility] 10 mg Given 11/29/2019 10:12 PM B[facility] T[facility] 10 mg oxyCODONE (ROXICODONE) tablet 5-10 mg Given 12/01/2019 6:19 AM B[facility] T[facility] 5 mg 5-10 mg, Oral, EVERY 3 HOURS PRN, other, For optimal opioid multimodal pain management to improve pain control and physical function., Starting on Fri11/29/19 at 1813, ~ Start at the lowest dose. ~ May adjust dose by 5 mg every 3 hours to optimize patient mobilization and comfort as needed. ~ Hold dose for analgesic side effects. ~ Notify provider to assess patient for uncontrolled pain or analgesic side effects. ~ Maximum total is 80 mg in 24 hours., Post-procedure Given 12/01/2019 2:54 AM [facility] 5 mg Given 11/30/2019 9:10 PM [facility] T[facility] 5 mg prochlorperazine (COMPAZINE) injection 5 mg 5 mg, Intravenous, EVERY 6 HOURS PRN, nausea, vomiting , Administer over 1-2 Minutes, Starting on Fri11/29/19 at 1813, This is Step 2 of nausea and vomiting management. If nausea not resolved in 15 minutes, give metoclopramide (REGLAN) if ordered (step 3 of nausea and vomiting m anagement) For ordered IV doses 0.1-10 mg, give IV Push undiluted. Each 5mg over 1 minute., Post- procedure prochlorperazine (COMPAZINE) tablet 5 mg 5 mg, Oral, EVERY 6 HOURS PRN, nausea, v omiting, Starting on Fri11/29/19 at 1813, This is Step 2 of nausea and vomiting management. If n ausea not resolved in 15 minutes, give metoclopramide (REGLAN) if ordered (step 3 of nausea and vomiting management), Post-procedure senna-docusate (SENOKOT-S/PERICOLACE) Given 12/01/2019 8:[address] 1 tablet 8.6-50 MG per tablet 2 tablet 2 tablet, Oral, 2 TIMES DAILY, First dose on Fri11/29/19 at 2100, Hold for loose stools. Preferred agent for constipation related to opioids. Hold for loose stools., Post-procedure Given 11/30/2019 8:34 PM BIRD [facility] 2 tablets Given 11/30/2019 8:21 AM BIRD TEND[facility] 2 tablets simvastatin (ZOCOR) tablet 10 mg Given 11/30/2019 9:10 PM BIRD TEND[facility] 10 mg 10 mg, Oral, AT BEDTIME, First dose on Fri11/29/19 at 2200 Given 11/29/2019 10:13 PM BIRD TEND[facility] 10 mg sodium chloride (PF) 0.9% PF flush 3 mL Given 11/30/2019 9:51 PM BIRD TENDER 3 mLs 3 mL, Intracatheter, EVERY 8 HOURS, First dose on Fri11/29/19 at 2200, And Q1H PRN, to lock peripheral IV dormant line., Post-procedure Given 11/30/2019 8:22 AM BIRD TENDER 3 mLs sodium chloride 0.9% infusion New Bag 11/29/2019 10:12 PM BIRD TENDER 125 mL/hr at 125 mL/hr, Intravenous, CONTINUOUS, Change to saline lock when PO well tolerated., Post-procedure, Starting on Fri11/29/19 at 1815, Until Fri12/01/19 at 1245 documented in this encounter Active and Recently Administered Medications Times are shown in [facility]. Scheduled Medication Order 11/29/2019 11/30/2019 12/01/2019 acetaminophen (TYLENOL) tablet 1,000 mg (COMPLETED) 08 59 (Given - Provider: Marybeth Rendon RN) 1,000 mg, Oral, ONCE, Fri11/29/19 at 081 5, For 1 dose, Maximum acetaminophen dose from all sources = 75 mg/kg/day not to exceed 4 gram, Pre-procedure acetaminophen (TYLENOL) tablet 975 mg 2213 (Given - Pr ovider: Zohreh Rosa RN) 0700 (Hold - Provider: Eva Abraham RN - Reason: Other - Comment: give 30 minutes after levothyroxin administration time)0821 (Given - Provider: Cleo Hernadez RN)1351 (Given - Provider: Driss Espinal RN) 0619 (Given - Provider: Dani Saenz, VIRI) 975 mg, Oral, EVERY 8 HOURS, First dose on Fri11/29/19 at 2200, For 3 days, Administer for multimodal surgical pain management. Maximum acetaminophen dose from all sources = 75 mg/kg/day not to exceed 4 grams/day., Post-procedure 2109 (Given - Provider: Dani Saenz, VIRI) buPROPion (WELLBUTRIN XL) 24 hr tablet 300 mg 0821 (Given - Provider: Cleo Hernadez RN) 0850 (Given - Provider: Erika genao RN) 300 mg, Oral, EVERY MORNING, First dose on Fri11/30/19 at 0900, DO NOT CRUSH. ceFAZolin (ANCEF) intermittent infusion 2 g in 100 mL dextrose PRE-MIX (COMPLETED) 0859 (Handoff - Provider: Marybeth genao RN)1004 (Given - Provider: Rachel Holloway APRN HIRED HELP)1204 (Given - Provider: Rachel Hall APRN [employer]) Routine, 2 g, Intravenous, PRE-OP/PRE-UT OCEDURE, Starting Fri11/29/19 at 0800, For 1 dose, Give first dose within 1 hour PRIOR to incision. If patient weight is greater than or equal to 120 kg increase dose to 3 g., Indications: Perioperative Pharmacoprophylaxis, Pr e-procedure ceFAZolin (ANCEF) intermittent infusion 2 g in 100 mL dextrose PRE-MIX (COMPLETED) 2039 (Given - Provider: Zohreh Rosa RN) 0456 (Gi екатерина - Provider: Eva Abraham RN) Routine, 2 g, Intravenous, EVERY 8 HOURS , First dose on Fri11/29/19 at 2000, For 2 doses, First post-op dose due 8 hours after intra-op dose, see eMAR. , Indications: Perioperative Pharmacoprophylaxis, Post-procedure celecoxib (celeBREX) capsule 200 mg 0821 (Given - Provider: Cleo Hernadez RN) 0851 (Given - Provider: Erika genao RN) 200 mg, Oral, DAILY, First dose on Fri11/30/19 at 0900 enoxaparin ANTICOAGULANT (LOVENOX) injection 40 mg 0822 (Given - Provider: Cleo Hernadez RN) 0848 (Given - Provider: Erika genao RN) 40 mg, Subcutaneous, EVERY 24 HOURS, Fir st dose on Fri11/30/19 at 0900, Check to make sure start date/time is 12-24 hours post op unless documented complication, AND no sooner than 22 hours post op if s quentin anesthesia used. Continue until di scharge to home. HOLD if platelet count falls below 50% of baseline or less than 100,000/??L and notify provider., Post-procedure levothyroxine (SYNTHROID/LEVOTHROID) tablet 25 mcg 0655 (Given - Provider: Eva Abraham RN) 0619 (Given - Provider: Dani Saenz, VIRI ) 25 mcg, Oral, DAILY, First dose on Fri at 0700, Separate oral administration of iron- or calcium-containing products and levothyroxine by at least 4 hours. Lidocaine (LIDOCARE) 4 % Patch 1 patch 1 204 (Patch/Med Applied - Provider: Cleo Hernadez RN - Comment: back of neck) 0005 (Patch/Med Removed - Provider: Dani Saenz RN)0803 (Patch/Med Applied - Provider: Erika Javier RN - Comment: back of neck)1045 (Due: Patch/Med Removed - Provider: Orders Generic Provider - Comment: Time automatically adjust 1 patch, Transdermal, EVERY 24 HOURS 080 0, Administer over 12 Hours, First dose on Fri11/30/19 at 1115, Apply patch(s) to affected area. To prevent lidocaine toxicity, patient should be patch free for 1 ed from order being discontinued) 2 hrs daily. Patches may be cut to small er size prior to removing release liner. Reminder: Remove previous patch before applying new patch. NEVER APPLY HEAT OVER PATCH which increases absorption and may lead to local anesthetic toxicity. Do n ot apply over area where liposomal bupivacaine was injected for 96 hours post injection. lidocaine patch in PLACE 1311 (Patch in Place - Provider: Cleo Hernadez RN)2151 (Patch in Place - Provider: Dani Saenz, VIRI) 0625 (Patch Free Period - Provider: Dani Saenz RN) First dose on Fri11/30/19 at 1400, Chart every shift, confirming that patch is still in place on patient (no barcode scan needed). See patch order for dose information. NEVER APPLY HEAT OVER PATCH which will increase absorption and may lead t o risk of local anesthetic toxicity. Do not apply over area where liposomal bupivacaine injected for 96 hours. lisinopril-hydrochlorothiazide (PRINZIDE /ZESTORETIC) 20-12.5 MG per tablet 1 tablet 2212 (Given - Provider: Zohreh Rosa RN) 0821 (Gi екатерина - Provider: Cleo Hernadez RN) 0850 (Given - Provider: Erika genao RN) 1 tablet, Oral, DAILY, First dose on Fri11/29/19 at 1815, Hold if systolic is less than 100, or diastolic is less than 70. oxybutynin ER (DITROPAN-XL) 24 hr tablet 10 mg 2211 (G iven - Provider: Zohreh Rosa RN) 0821 (Given - Provider: Cleo Hernadez RN) 0850 (Gi екатерина - Provider: Erika Javier RN) 10 mg, Oral, DAILY, First dose on Fri11/29/19 at 1815, DO NOT CR US. polyethylene glycol (MIRALAX/GLYCOLAX) Packet 17 g 204 3 (Not Given - Provider: Zohreh Rosa RN - Reason: Patient/family refused) 0822 (Not Given - Provider: Cleo Hernadez RN - Reason: Patient/family refused) 0853 (Not Given - Provider: Erika Javier RN - Reason: Patient/family refused) 17 g, Oral, DAILY, First dose on 11/17 at 1815, Mixed prescribed dose in 8 ounces of water, juice or soda. Hold for loose stools. 1 Packet = 17 grams. Mix each gram with at least 1/2 ounce (15 mL) of water - 8 ounces for 17 g dose, 4 ou nces for 8.5 g dose, 2 ounces for 4 g dose. Follow with the same volume of water. Hold for loose stools. , Post-procedure senna-docusate (SENOKOT-S/PERICOLACE) 8.6-50 MG per ta blet 2 tablet 2212 (Given - Provider: Zohreh Rosa RN) 0821 (Given - Provider: Cleo Hernadez RN)2033 (Given - Provider: Dani Saenz RN) 0851 (Given - Provider: Erika Javier RN) 2 tablet, Oral, 2 TIMES DAILY, First dos e on Fri11/29/19 at 2100, Hold for loose stools. Preferred agent for constipation related to opioids. Hold for loose stools., Post-procedure simvastatin (ZOCOR) tablet 10 mg 2212 (Given - Provider: Gabe Rosa RN) 2109 (Given - Provider: Dani Saenz RN) 10 mg, Oral, AT BEDTIME, First dose on Fri11/29/19 at 2200 sodium chloride (PF) 0.9% PF flush 3 mL 215 (Not Give n - Provider: Zohreh Rosa RN - Reason: IV Infusing) 0600 (Not Given - Provider: Eva delacruz RN - Reason: IV Infusing)0822 (Given - Provider: Cleo Hernadez, VIRI)1400 (Canceled Entry - Provider: Cleo Hernadez RN)215 (Given - Provider: Dani Saenz RN) 0625 (Not Given - Provider: Dani Saenz RN - Reason: IV Infusing) 3 mL, Intracatheter, EVERY 8 HOURS, Firs t dose on Fri11/29/19 at 2200, And Q1H PRN, to lock peripheral IV dormant line., Post-procedure tranexamic acid (CYKLOKAPRON) bolus 1 g vial attach to NaCl 50 or 100 mL bag ADULT (COMPLETED) 0900 (Handoff - Provider: Marybeth genao RN)1019 (Given - Provider: Rachel Holloway APRN CRNA) 1 g, Intravenous, ONCE, Fri11/29/19 at 0 815, For 1 dose, Each 1 gram to be infused over 10 minutes., Pre-procedure Continuous Medication Order 11/29/2019 11/30/2019 12/01/2019 lactated ringers infusion (CANCELED) 0900 (New Bag - P rovider: Marybeth Rendon RN)1059 (New Bag - Provider: Rachel Holloway APRN CRNA)1231 (Anesthesia Volume Adjustment - Provider: Scarlett Cassidy APRN CRNA) at 25 mL/hr, Intravenous, CONTINUOUS, IF patient NOT on dialysis., Pre- procedure, Starting Fri11/29/19 at 0815, Until Fri11/29/19 at 1233 lactated ringers infusion (CANCELED) 1404 (New Bag - P rovider: Eli W Bang, RN) at 100 mL/hr, Intravenous, CONTINUOUS, C ontinue until IV catheter is weaned, PACU, Starting 11/29/19 at 1245, Until Fri11/29/19 at 1813 sodium chloride 0.9% infusion 2212 (New Bag - Provider: Zohreh Hester RN) at 125 mL/hr, Intravenous, CONTINUOUS, C hange to saline lock when PO well tolerated., Post-procedure, Starting 11/29/19 at 1815, Until 12/01/19 at 1245 PRN Medication Order 11/29/2019 11/30/2019 12/01/2019 acetaminophen (TYLENOL) tablet 650 mg 650 mg, Oral, EVERY 4 HOURS PRN, other, For optimal non-opioid multimodal pain management to improve pain control and physical function., Starting Deana 12/02/19 at 2200, May give first dose 4 hours after last scheduled dose of acetaminophen (TY LENOL). Maximum acetaminophen dose from all sources = 75 mg/kg/day not to exceed 4 grams/day., Post-procedure benzocaine-menthol (CHLORASEPTIC) 6-10 MG lozenge 1-2 lozenge 1-2 lozenge, Buccal, EVERY 1 HOUR PRN, s ore throat, sore throat without fever, Starting 11/29/19 at 1813, Post-procedure bisacodyl (DULCOLAX) Suppository 10 mg 10 mg, Rectal, DAILY PRN, constipation, Starting 11/29/19 at 1813, Bisacodyl Suppository PRN if no bowel movement has occurred 48 hours after surgery. May discontinue if patient having bowel movement. Hold for loose stools., Post-procedure bupivacaine 0.5% - EPINEPHrine 1:200,000 (PF) injectio n (CANCELED) 1203 (Given - Provider: Tomas Eckert MD) PRN, Starting 11/29/19 at 1203, Intra-procedure ceFAZolin 1000 mg + gentamicin 120 mg + NaCl 0.9% 1000 mL Bag (CANCELED) 1107 (Given - Provider: Tomas Eckert MD) PRN, Starting 11/29/19 at 1107, Intra-procedure esomeprazole (nexIUM) CR capsule 20 mg 20 mg, Oral, DAILY PRN, heart burn, Starting 11/29/20 at 1813 fentaNYL (PF) (SUBLIMAZE) injection 25-50 mcg (CANCELE D) 1247 (Given - Provider: Mayra Ramirez RN)1256 (Given - Provider: Mayra Ramirez RN) 25-50 mcg, Intravenous, EVERY 2 MIN PRN, Starting 11/29/19 at 1237, other, acute pain, MAX cumulative dose = 250 mcg. Use fentaNYL (SUBLIMAZE) initially, as a short acting agent for acute pain contro l. If insufficient, or a longer acting a gent is needed, begin morphine or HYDROmorphone (DILAUDID) if ordered. For ordered IV doses 1-100 mcg give IV Push undiluted over a minimum of 3-5 minutes., PACU furosemide (LASIX) tablet 20 mg 20 mg, Oral, DAILY PRN, swelling, Starting 11/29/19 at 1813 HYDROmorphone (PF) (DILAUDID) injection 0.2-0.4 mg 0.2-0.4 mg, Intravenous, EVERY 2 HOURS P RN, Starting Fri11/29/19 at 1813, Until Fri12/01/19 at 1245, other, pain control or improvement in physical function. Hold dose for analgesic side effects., Post- procedure, Notify the provider to assess for uncontrolled pain or analgesic side effects. Hold while on IV [employer] or with regular IV opioid dosing. For ordered IV doses 0.1-4 mg give IV Push undiluted. Administer each 2mg over 2-5 minutes. HYDROmorphone (PF) (DILAUDID) injection 0.3-0.5 mg (CA NCELED) 1407 (Given - Provider: Eli Bang, VIRI)1506 (Given - Provider: Eli Bang RN) 0.3-0.5 mg, Intravenous, EVERY 5 MIN PRN , Starting Fri11/29/19 at 1237, Until Fri11/29/19 at 1813, other, acute pain. ??May administer if Respiratory Rate is greater than 10, PACU, Max cumulative dose = 2 mg If fentaNYL (SUBLIMAZE) is also or dered, use HYDROmorphone (DILAUDID) if pain control insufficient with fentaNYL (SUBLIMAZE) or a longer acting agent is needed. For ordered IV doses 0.1-4 mg give IV Push undiluted. Administer each 2mg over 2-5 minutes. Lidocaine (LIDOCARE) 4 % Patch 1 patch 1 patch, Transdermal, DAILY PRN, moderat e pain, Administer over 12 Hours, Starting Fri11/29/19 at 1812, Apply patch(s) to affected area. To prevent lidocaine toxicity, patient should be patch free for 1 2 hrs daily. Patches may be cut to small er size prior to removing release liner. Reminder: Remove previous patch before applying new patch. NEVER APPLY HEAT OVER PATCH which increases absorption and may lead to local anesthetic toxicity. Do n ot apply over area where liposomal bupivacaine was injected for 96 hours post injection. lidocaine (LMX4) cream Topical, EVERY 1 HOUR PRN, pain, with VA D insertion or accessing implanted port., Starting Fri11/29/19 at 1812, Do NOT give if patient has a history of allergy to any local anesthetic or any jareth pro duct. Apply at least 30 minutes prior to VAD insertion or port access. In divided doses as needed for size of site for insertion with MAX Dose: 2.5 g (?? of 5 g tube), Post-procedure lidocaine 1 % 0.1-1 mL 0.1-1 mL, Other, EVERY 1 HOUR PRN, mild pain with VAD insertion., Starting Fri11/29/19 at 1812, Do NOT give if patient has a history of allergy to any local anesthetic or any jareth product. MAX dose 1 mL subcutaneous OR intradermal in divid ed doses as needed for VAD insertion., Post-procedure methocarbamol (ROBAXIN) tablet 500 mg 500 mg, Oral, 4 TIMES DAILY PRN, muscle spasms, Starting Fri11/29/19 at 1812, Hold for sedation., Post-procedure metoclopramide (REGLAN) injection 5 mg(Linked Group 1) 5 mg, Intravenous, Administer over 2 Min utes, EVERY 6 HOURS PRN, Starting Fri11/29/19 at 1812, nausea, vomiting, This is Step 3 of nausea and vomiting management. Give if nausea not resolved 15 minutes after giving prochlorperazine (COMPAZINE ). If nausea not resolved in 15-30 minutes, Notify provider. Avoid use if patient has full bowel obstruction or perforation. Irritant. For ordered IV doses 1-10 m g, give IV Push undiluted over 2 minutes., Post-procedure metoclopramide (REGLAN) tablet 5 mg(Linked Group 1) 5 mg, Oral, EVERY 6 HOURS PRN, Starting 11/29/19 at 1813, nausea, vomiting, This is Step 3 of nausea and vomiting management. Give if nausea not resolved 15 minutes after giving prochlorperazine (COM PAZINE). If nausea not resolved in 15-30 minutes, Notify provider., Post-procedure naloxone (NARCAN) injection 0.1-0.4 mg 0.1-0.4 mg, Intravenous, EVERY 2 MIN PRN , opioid reversal, Starting Fri11/29/19 at 1813, For respiratory rate LESS than or EQUAL to 8. Partial reversal dose: 0.1 mg titrated q 2 minutes for Analgesia Si de Effects Monitoring Sedation Level of 3 (frequently drowsy, arousable, drifts to sleep during conversation).Full reversal dose: 0.4 mg bolus for Analgesia Side Effects Monitoring Sedation Level of 4 ( somnolent, minimal or no response to sti mulation). For ordered IV doses 0.1-2mg give IVP. Give each 0.4mg over 15 seconds in emergency situations. For non- emergent situations further dilute in 9mL of NS to facilitate titration of response., Post-procedure ondansetron (ZOFRAN) injection 4 mg(Linked Group 2) 4 mg, Intravenous, EVERY 6 HOURS PRN, na usea, vomiting, Administer over 2-5 Minutes, Starting 11/29/19 at 1813, This is Step 1 of nausea and vomiting management. If nausea not resolved in 15 minutes, go to Step 2 prochlorperazine (COMPAZIN E). Irritant. For ordered IV doses 0.1-4 mg, give IV Push undiluted over 2-5 minutes., Post-procedure ondansetron (ZOFRAN-ODT) ODT tab 4 mg(Linked Group 2) 4 mg, Oral, EVERY 6 HOURS PRN, nausea, v omiting, Starting Fri11/29/19 at 1813, This is Step 1 of nausea and vomiting management. If nausea not resolved in 15 minutes, go to Step 2 prochlorperazine (COMP AZINE). Do not push through foil backing . Peel back foil and gently remove. Place on tongue immediately. Administration with liquid unnecessary With dry hands, peel back foil backing and gently remove t ablet. Do not push oral disintegrating t ablet through foil backing. Administer immediately on tongue and oral disintegrating tablet dissolves in seconds, then swallow with saliva. Liquid not required., Post-procedure oxyCODONE (ROXICODONE) tablet 5-10 mg 2213 (Given - Pr ovider: Zohreh Rosa RN) 0821 (Given - Provider: Cleo Hernadez , VIRI)1205 (Given - Provider: Cleo Hernadez, RN)1527 (Given - Provider: Driss Espinal, VIRI)1822 (Given - Provider: Driss Espinal, VIRI)2110 (Given - Provider: Dani Saenz, VIRI) 0254 (Given - Provider: Dani Saenz, VIRI)0619 (Given - Provider: Dani Saenz, VIRI) 5-10 mg, Oral, EVERY 3 HOURS PRN, other, For optimal opioid multimodal pain management to improve pain control and physical function., Starting 11/29/19 at 1813, ~ Start at the lowest dose. ~ May adj ust dose by 5 mg every 3 hours to optimi ze patient mobilization and comfort as needed. ~ Hold dose for analgesic side effects. ~ Notify provider to assess patient for uncontrolled pain or analgesic side effects. ~ Maximum total is 80 mg in 24 hours., Post-procedure prochlorperazine (COMPAZINE) injection 5 mg(Linked Group 3) 5 mg, Intravenous, EVERY 6 HOURS PRN, na usea, vomiting, Administer over 1-2 Minutes, Starting 11/29/19 at 1813, This is Step 2 of nausea and vomiting management. If nausea not resolved in 15 minutes, give metoclopramide (REGLAN) if ordered (step 3 of nausea and vomiting management) For ordered IV doses 0.1-10 mg, give IV Push undiluted. Each 5mg over 1 minute., Post-procedure prochlorperazine (COMPAZINE) tablet 5 mg(Linked Group 3) 5 mg, Oral, EVERY 6 HOURS PRN, nausea, v omiting, Starting 11/29/19 at 1813, This is Step 2 of nausea and vomiting management. If nausea not resolved in 15 minutes, give metoclopramide (REGLAN) if ord ered (step 3 of nausea and vomiting management), Post-procedure sodium chloride (PF) 0.9% PF flush 3 mL 3 mL, Intracatheter, EVERY 1 MIN PRN, li ne flush, for peripheral IV flush post IV meds, Starting 11/29/19 at 1813, Post-procedure sodium chloride 0.9% (bottle) irrigation (CANCELED) 11 07 (Given - Provider: Tomas Eckert MD) PRN, Starting 11/29/19 at 1107, Intra-procedure Linked Groups Order Group 1: metoclopramide (REGLAN) tablet 5 mgJump to med 5 mg, Oral, EVERY 6 HOURS PRN, Starting 11/29/19 at 1813, nausea, vomiting
This is Step 3 of nausea and vomiting management. Give if nausea not resolved 15 minutes after g iving prochlorperazine (COMPAZINE).&nbsp ;If nausea not resolved in 15-30 minutes, Notify provider.
Post-procedure Or metoclopramide (REGLAN) injection 5 mgJump to med 5 mg, Intravenous, Administer over 2 Min utes, EVERY 6 HOURS PRN, Starting 11/29/19 at 1813, nausea, vomiting
This is Step 3 of nausea and vomiting management. Give if naus ea not resolved 15 minutes after giving prochlorperazine (COMPAZINE). If nausea not resolved in 15-30 minutes, Notify provider. Avoid use if patient has full bowel obstruction or perfo ration. Irritant. For ordered IV doses 1 -10 mg, give IV Push undiluted over 2 minutes.
Post-procedure Group 2: ondansetron (ZOFRAN-ODT) ODT tab 4 mgJump to med 4 mg, Oral, EVERY 6 HOURS PRN, nausea, v omiting, Starting 11/29/19 at 1813
This is Step 1 of nausea and vomiting management. If nausea not resolved in 15 minutes, go to St ep 2 prochlorperazine (COMPAZINE). Do no t push through foil backing. Peel back foil and gently remove. Place on tongue immediately. Administration with liquid unnecessary With dry hands, peel b ack foil backing and gently remove table t. Do not push oral disintegrating tablet through foil backing. Administer immediately on tongue and oral disintegrating tablet dissolves in seconds, then swallow with saliva. Liquid not required.
Po st-procedure Or ondansetron (ZOFRAN) injection 4 mgJump to med 4 mg, Intravenous, EVERY 6 HOURS PRN, na usea, vomiting, Administer over 2-5 Minutes, Starting 11/29/19 at 1813
This is Step 1 of nausea and vomiting management. If nausea not resolved in 15 minutes, go to Step 2 prochlorperazine (COMPAZINE). Irritant. For ordered IV doses 0.1-4 mg, give IV Push undiluted over 2-5 minutes.
Post-procedure Group 3: prochlorperazine (COMPAZINE) injection 5 mgJump to med 5 mg, Intravenous, EVERY 6 HOURS PRN, na usea, vomiting, Administer over 1-2 Minutes, Starting 11/29/19 at 1813
This is Step 2 of nausea and vomiting management. If nausea not resol ainsley in 15 minutes, give metoclopramide ( REGLAN) if ordered (step 3 of nausea and vomiting management) For ordered IV doses 0.1-10 mg, give IV Push undiluted. Each 5mg over 1 minute.
Post-procedure Or prochlorperazine (COMPAZINE) tablet 5 mgJump to med 5 mg, Oral, EVERY 6 HOURS PRN, nausea, v omiting, Starting 11/29/19 at 1813
This is Step 2 of nausea and vomiting management. If nausea not resolved in 15 minutes, give metocloprami de (REGLAN) if ordered (step 3 of nausea and vomiting management)
Post-procedure documented in this encounter Care Teams Butter Liquefier Relationship Specialty Start Date End Date Diane Alejandra PCP - General Internal Medicine 10/17/17 [facility] [address] [place] [address] (work) documented as of this encounter
--- OUTSIDE RECORDS SUMMARY | 2022-10-07 10:47 | XMS_ITS | Encounter Summary ---
:1935 Author Organization [facility] Address [address] [place] [address] Care Team Providers Name Role Phone Unavailable Primary Care Provider Unavailable Encounter Details Date Type Department Care Team Description 10/28/2008 Hospital Encounter HX NO MAPPING Social History [...] 1 to 4 times per year 03/2022 confucianist services? Do you belong to any clubs [...]
--- OUTSIDE RECORDS SUMMARY | 2022-10-07 10:47 | XMS_ITS | Encounter Summary ---
:1935 Author Organization [facility] Address [address] [place] [address] Care Team Providers Name Role Phone Unavailable Primary Care Provider Unavailable Encounter Details Date Type Department Care Team Description 11/07/2019 Nurse Triage Department of [facility]ie Gibson[facility] [place] [address] [place] [phone] Social History Tobacco Use Types Packs/Day Years [...] or slept in a fci (including now)? Sex Assigned at Date Recorded Female 02/19/2022 7:48 AM CDT documented as of this encounter Plan of Treatment Not on filedocumented as of this encounter Visit Diagnoses Not on filedocumented in this encounter Additional Health Concerns Assessment Noted Time PHQ-9 Depression Total Score: 20 04/21/2015 3:12 PM CD T documented as of this encounter
--- OUTSIDE RECORDS SUMMARY | 2022-10-07 10:48 | XMS_ITS | Encounter Summary ---
:1935 Author Organization [facility] Address [address] [place] [address] Care Team Providers Name Role Phone Nader Garibay MD Primary Care Provider Encounter Details Date Type Department Care Team Description 10/19/[address] [facility] Nader Garibay Rudyardnneka Vann MD [address] [phone] [place], [place] [address] (Wo rk) Social History Tobacco Use Types Packs/Day Years Used Date Smoking Tobacco: Never Alcohol Use Standard Drinks/Week Comments Yes 0 (1 standard drink = 0.6 oz pure alcoho l) SELDOM Sex Assigned at Date Recorded Not on file documented as of this encounter Plan of Treatment Not on filedocumented as of this encounter Procedures Procedure Name Priority Date/Time Associated Diagnosis Comme nts HC X-RAY HIP COMPLETE >=2 VIEWS Routine 08/20/2012 HC X-RAY SHOULDER, COMPLETE G/E 2 Routine 08/20/2012 VIEWS documented in this encounter Results X-RAY HIP COMPLETE >=2 VIEWS (08/20/2012) Anatomical Region Laterality Modality Other Narrative This result has an attachment that is no t available. Provider Abstract GENERAL IMAGING X-RAY SHOULDER 2 VIEWS (08/20/2012) Anatomical Region Laterality Modality Other Narrative This result has an attachment that is no t available. Provider Abstract GENERAL IMAGING documented in this encounter Visit Diagnoses Not on filedocumented in this encounter Care Teams Sales Administrator Relationship Specialty Start Date End Date Nader Garibay MD PCP - General 01/01/02 10/16/17 documented as of this encounter
--- OUTSIDE RECORDS SUMMARY | 2022-10-07 10:48 | XMS_ITS | Encounter Summary ---
:1935 Author Organization [facility] Address [address] [place] [address] Care Team Providers Name Role Phone Nader Garibay MD Primary Care Provider Reason for Visit Reason Onset Date Comments Other 11/22/2009 lab results (letter) , Nexium PA, bladder issues Encounter Details Date Type Department Care Team Description 11/22/2009 Telephone [facility] Nader Garibay Ot her (lab results [facility] MD Bro (letter), Nexium PA, [address] bladder issues) [place] [address] [phone] Social History Tobacco Use Types Packs/Day Years Used Date Smoking Tobacco: Never Alcohol Use Standard Drinks/Week Comments Yes 0 (1 standard drink = 0.6 oz pure alcoho l) SELDOM Sex Assigned at Date Recorded Not on file documented as of this encounter Miscellaneous Notes Telephone Encounter - Scarlett Dhaliwal - 12/27/2009 1:59 PM CST [employer] , they finally approved Nexium 40mg daily effectice 12/27/09 to 12/28/09, left detailed msg advising pt of approval, she will have to call which ever pharmacy she wants to have filled. SCARLETT DHALIWAL MA IAL DUTY NURSE Telephone Encounter - Scarlett Dhaliwal - 12/26/2009 10:20 AM CST Prior auth faxed again. SCARLETT DHALIWAL MA IAL DUTY NURSE Telephone Encounter - Scarlett Dhaliwal - 12/20/2009 8:36 AM CST Prior auth refaxed IAL DUTY NURSE Telephone Encounter - Scarlett Dhaliwal - 12/06/2009 2:49 PM CST Prior auth refaxe. SCARLETT DHALIWAL MA IAL DUTY NURSE Telephone Encounter - Scarlett Dhaliwal - 11/23/2009 11:52 AM CST Letter and labs resent to pt, prior auth has been faxed. SCARLETT DHALIWAL MA IAL DUTY NURSE Telephone Encounter - Nader Garibay - 11/23/2009 9:28 AM CST 1) Letter written, in [facility] - please send to patient, with copy of labs. 2) If she would like to be seen at [facility], that's fine with me, but I can't refer her there 3) Please do PA for Nexium - she has failed omeprazole in past. IAL DUTY NURSE Telephone Encounter - Paulette Farrell - 11/22/2009 1:24 PM CST 1. Pt had labs drawn 09/15 and then called for results on 09/21/09, was told that a result letter from MD would be coming and she has not yet received a letter--is anxious for written communication fromMD regarding those results. 2. Pt saw Dr. Jones for incontinence, she disagrees with what he told her. He told her she is just bloated and told her she drinks too much fluid. Pt states she drinks 8 glasses of water a day and gets so dry between the Lasix and being a mouth breather/sleep apnea but Dr. Jones told her sheshould have only 2 glasses of fluid a day. Urine very strong smelling since she cut back on fluid intake--5-6 glasses a day. She is thinking about self referring to [facility]. 3. [facility] told pt that they will not fill Nexium rx for pt without speaking to MD as they have questions for him, ??need PA. Customer service . Rx#[id number]. Pt has BCBS. Fred Farrell R.N. IAL DUTY NURSE documented in this encounter Plan of Treatment Not on filedocumented as of this encounter Visit Diagnoses Not on filedocumented in this encounter Care Teams Nurse First Assist Relationship Specialty Start Date End Date Nader Garibay MD PCP - General 01/01/02 10/16/17 documented as of this encounter
--- OUTSIDE RECORDS SUMMARY | 2022-10-07 10:48 | XMS_ITS | Encounter Summary ---
:1935 Author Organization [facility] Address [address] [place] [address] Care Team Providers Name Role Phone Nader Garibay MD Primary Care Provider Encounter Details Date Type Department Care Team Description 02/22/2016 Radiant Appointment [facility] Tomas Eckert Glade Edwar Love MD [address] ORTHOPEDICS [phone] [place] [address] [place], [place] [phone] Social History Tobacco Use Types Packs/Day Years Used Date Smoking Tobacco: Never Alcohol Use Standard Drinks/Week Comments Yes 0 (1 standard drink = 0.6 oz pure alcoho l) SELDOM Sex Assigned at Date Recorded Not on file documented as of this encounter Plan of Treatment Not on filedocumented as of this encounter Procedures Procedure Name Priority Date/Time Associated Diagnosis Comme nts XR KNEE RIGHT 1/2 Routine 02/22/2016 3:34 PM Pain Resu lts for this VIEWS CDT procedure are i n the results section. documented in this encounter Results XR Knee Right 1/2 Views (02/22/2016 3:34 PM CDT) Specimen (Source) Anatomical Location Collection Method / Collectio n Time Received Time / Laterality Volume Impressions Esthela Gomez O - 02/22/2016 3:34 PM CDT exam was marked as non-reportable because it will not be read by a radiologist or a [facility] non-radiologis t provider. Narrative Esthela Gomez - 02/22/2016 3:34 PM CDT This Tomas Eckert MD IMG DIAGNOSTIC IMAGING ORD ERABLES documented in this encounter Visit Diagnoses Diagnosis Pain Generalized pain documented in this encounter Care Teams Music Educator Relationship Specialty Start Date End Date Nader Garibay MD PCP - General 01/01/02 10/16/17 documented as of this encounter
--- OUTSIDE RECORDS SUMMARY | 2022-10-07 10:48 | XMS_ITS | Encounter Summary ---
:1935 Author Organization [facility] Address [address] [place] [address] Care Team Providers Name Role Phone Nader Garibay MD Primary Care Provider Reason for Referral Specialty Diagnoses / Procedures Referred By Contact Refer red To Contact Nader Garibay MD [address] [phone] Referral ID Status Reason Start Date Expiration Date Visits Requ ested Visits Authorized Encounter Details Date Type Department Care Team Description 08/25/2009 Orders Only [facility] Nader Garibay DIAGNOSIS NOT YET Clinic Tiny Crabtree MD DEFINED (Primary Dx) [place] [address] [phone] Social History Tobacco Use Types Packs/Day Years Used Date Smoking Tobacco: Never Alcohol Use Standard Drinks/Week Comments Yes 0 (1 standard drink = 0.6 oz pure alcoho l) SELDOM Sex Assigned at Date Recorded Not on file documented as of this encounter Plan of Treatment Not on filedocumented as of this encounter Procedures Procedure Name Priority Date/Time Associated Diagnosis Comme nts ZZ CONSULT NL INTERNAL Routine 03/31/2009 DIAGNOSIS NOT YET DEFINED MEDICINE NON-CLINIC SCANNED LAB Routine 03/31/2009 DIAGNOSIS NOT YET DEFINED documented in this encounter Results CONSULT NL INTERNAL MEDICINE (03/31/2009) Narrative This result has an attachment that is no t available. Nader Garibay MD REFERRAL NON-CLINIC SCANNED LAB (03/31/2009) Narrative This result has an attachment that is no t available. Nader Garibay MD LABORATORY documented in this encounter Visit Diagnoses Diagnosis DIAGNOSIS NOT YET DEFINED - Primary documented in this encounter Care Teams Advance Seal Delivery System Maintainer Relationship Specialty Start Date End Date Nader Garibay MD PCP - General 01/01/02 10/16/17 documented as of this encounter
--- OUTSIDE RECORDS SUMMARY | 2022-10-07 10:48 | XMS_ITS | Encounter Summary ---
:1935 Author Organization [facility] Address [address] [place] [address] Care Team Providers Name Role Phone Nader Garibay MD Primary Care Provider Reason for Visit Reason Onset Date Comments Refill Request 05/25/2009 Encounter Details Date Type Department Care Team Description 05/25/2009 Refill [facility] Nader Garibay MD Refill Request [address] [address] [place] [phone] Social History Tobacco Use Types Packs/Day Years Used Date Smoking Tobacco: Never Alcohol Use Standard Drinks/Week Comments Yes 0 (1 standard drink = 0.6 oz pure alcoho l) SELDOM Sex Assigned at Date Recorded Not on file documented as of this encounter Miscellaneous Notes Telephone Encounter - Abel Chase - 05/26/2009 10:41 AM CDT Last potassium was checked 03/24, Refill routed to PCP for approval. Stevie Chase RN documented in this encounter Plan of Treatment Not on filedocumented as of this encounter Visit Diagnoses Diagnosis Edema documented in this encounter Care Teams Geochemist Relationship Specialty Start Date End Date Nader Garibay MD PCP - General 01/01/02 10/16/17 documented as of this encounter
--- OUTSIDE RECORDS SUMMARY | 2022-10-07 10:48 | XMS_ITS | Encounter Summary ---
:1935 Author Organization [facility] Address [address] [place] [address]. [place] [address] Care Team Providers Name Role Phone Nader Garibay MD Primary Care Provider Reason for Visit Reason Onset Date Comments Medication Request 08/25/2009 needs increase in [place] Encounter Details Date Type Department Care Team Description 08/25/2009 Telephone [facility] Nader Garibay Ms dication Request [facility] MD Bro (needs increase in [address] Lasix) [place] [address] [phone] Social History Tobacco Use Types Packs/Day Years Used Date Smoking Tobacco: Never Alcohol Use Standard Drinks/Week Comments Yes 0 (1 standard drink = 0.6 oz pure alcoho l) SELDOM Sex Assigned at Date Recorded Not on file documented as of this encounter Miscellaneous Notes Telephone Encounter - Renee Barraza - 08/30/2009 9:14 AM CDT Pt advised. Telephone Encounter - Sabrina Lee - 08/25/2009 5:22 PM CDT Left message on home # for pt. To call back-Did tell pt. Rx was approved But to call clinic back re;PMD's advisement See note below Telephone Encounter - Nader Garibay - 08/25/2009 4:05 PM CDT Approved, bit needs to RTC within next 2 months so we can re-check her creatinine on this dose. Telephone Encounter - Gabriella Edmond - 08/25/2009 11:57 AM CDT Pt called- recent rx to [facility] is incorrect for lasix 20mg bid. She has been taking 2 tablets bid. OV in March- was told by PCP to decrease to 1 tab bid- After 2 weeks ( inJune), pt noted swelling in her legs- she went back to the previous dose 20mg 2 tabs bid. She is on Potassium 20mg 2 daily. Please approve Rx to pharm with dose change- documented in this encounter Plan of Treatment Not on filedocumented as of this encounter Visit Diagnoses Diagnosis Edema - Primary documented in this encounter Care Teams Wire Bender Relationship Specialty Start Date End Date Nader Garibay MD PCP - General 01/01/02 10/16/17 documented as of this encounter
--- OUTSIDE RECORDS SUMMARY | 2022-10-07 10:48 | XMS_ITS | Encounter Summary ---
:1935 Author Organization [facility] Address [address] [place] [address]. [place] [address] Care Team Providers Name Role Phone Nader Garibay MD Primary Care Provider Encounter Details Date Type Department Care Team Description 08/25/2009 Orders Only [facility] Doctor, None, DIAGNO SIS NOT YET Clinic [place] DEFINED ( Primary Dx) [place] [address] [phone] Social History Tobacco Use Types Packs/Day Years Used Date Smoking Tobacco: Never Alcohol Use Standard Drinks/Week Comments Yes 0 (1 standard drink = 0.6 oz pure alcoho l) SELDOM Sex Assigned at Date Recorded Not on file documented as of this encounter Plan of Treatment Not on filedocumented as of this encounter Procedures Procedure Name Priority Date/Time Associated Diagnosis Comme nts HCL POTASSIUM Routine 03/31/2009 DIAGNOSIS NOT YET Results f or this DEFINED procedure are i n the results section . HCL GLUCOSE Routine 03/31/2009 DIAGNOSIS NOT YET Results fo r this DEFINED procedure are i n the results section . HCL CREATININE Routine 03/31/2009 DIAGNOSIS NOT YET Results for this DEFINED procedure are i n the results section . CL AFF A.M.A. LIPID Routine 03/31/2009 DIAGNOSIS NOT YET Res ults for this PANEL DEFINED procedure are i n the results section . documented in this encounter Results A.M.A. LIPID PANEL (03/31/2009) Analysis Performed At Patho logist Time Signature Cholesterol 292 @ 115 - 199 [facility] mg/dL Triglycerides 230 @ mg/dL [facility] HDL Cholesterol 48 @ mg/dL [facility] LDL Cholesterol 198 @ mg/dL [facility] Calculated VLDL-Cholesterol ng/dL [facility] Cholesterol/HDL [facility] Ratio None Doctor MD LABORATORY Performing Organization Address [facility]/ZIP [facility] Phon e Number [facility] CREATININE (03/31/2009) P athologist Signature Creatinine 1.0 @ mg/dL [facility] None Doctor MD LABORATORY Performing Organization Address [facility] Phon e Number [facility] GLUCOSE (03/31/2009) P athologist Signature Glucose 120 @ mg/dL [facility] None Doctor MD LABORATORY Performing Organization Address [facility] Phon e Number [facility] POTASSIUM (03/31/2009) P athologist Signature Potassium 4.6 @ mmol/L [facility] None Doctor MD LABORATORY Performing Organization Address [facility] Phon e Number [facility] documented in this encounter Visit Diagnoses Diagnosis DIAGNOSIS NOT YET DEFINED - Primary documented in this encounter Care Teams Raveler Relationship Specialty Start Date End Date Nader Garibay MD PCP - General 01/01/02 10/16/17 documented as of this encounter
--- OUTSIDE RECORDS SUMMARY | 2022-10-07 10:48 | XMS_ITS | Encounter Summary ---
:1935 Author Organization [place] Address [address] [place] [address] Care Team Providers Name Role Phone Nader Garibay MD Primary Care Provider Reason for Visit Reason Comments RECHECK medication review, refills Encounter Details Date Type Department Care Team Description 03/27/2009 Office Visit [facility] Nader Garibay Edema (Pr imary Dx); [facility] [place] MD Bro RESTLESS LEG SYNDROME; [place] [address] [facility] Mixed Hyperlipidemia; [address] [place] [address] [phone] Social History Tobacco Use Types Packs/Day Years Used Date Smoking Tobacco: Never Alcohol Use Standard Drinks/Week Comments Yes 0 (1 standard drink = 0.6 oz pure alcoho l) SELDOM Sex Assigned at Date Recorded Not on file documented as of this encounter Last Filed Vital Signs Vital Sign Reading Time Taken Comments Blood Pressure 108/60 03/27/2009 11:09 AM CDT Pulse 68 03/27/2009 11:09 AM CDT Temperature - - Respiratory Rate 16 03/27/2009 11:09 AM CDT Oxygen Saturation - - Inhaled Oxygen Concentration - - Weight 110.7 kg (244 lb) 03/27/2009 11:09 AM CDT Height 165.1 cm (5' 5) 03/27/2009 11:09 AM CDT Body Mass Index 40.6 03/27/2009 11:09 AM CDT documented in this encounter Progress Notes Nader Garibay - 03/27/2009 1:07 PM CDT HPI: Vielka Yap is a 73 year old female who presents for follow-up, discussion of below. Patient's recent medicine follow-up has taken place at [place]; in Oct she underwent right peroneal nerv release, which has resulted in near-complete relief of pain in her right lower extremitiy, though she still has right foot numbness. While seen by surgery service there, she was seen by rn neurosurgical, who basically kept her on same medication regimen with exception of changing her effexor to Cymbalta, which she feels has also helped her pain. Her lwoer extremity edema has not been much of a problem, and she is wondering if diuretic dose could be lowered. She will have labs re-drawn at [place] in next few days. Patient Active Problem List Diagnoses Code ??? 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 EDEMA 782.3 ??? DEPRESSIVE DISORDER NEC 311 ??? ESOPHAGEAL REFLUX 530.81 ??? MIXED HYPERLIPIDEMIA 272.2 ??? OTHER UNSPEC SLEEP APNEA 780.57 ??? OBESITY NOS 278.00 ??? RESTLESS LEG SYNDROME 333.99 Current outpatient prescriptions Medication Sig ??? CYMBALTA 60 MG OR CPEP 1 CAPSULE DAILY ??? WOMENS DAILY MULTIVITAMIN OR TABS 1 TABLET DAILY ??? DOCUSATE SODIUM 100 MG OR CAPS 1 CAPSULES DAILY ??? LASIX 20 MG OR TABS ONE TABLET TWICE DAILY ??? POTASSIUM CHLORIDE CR 20 MEQ OR TBCR TWO TABLETS DAILY ??? VOLTAREN 75 MG OR TBEC 1 daily ??? CALCARB 600 1500 MG OR TABS 1 tablet daily ??? SENNA 187 MG OR TABS daily as needed ??? NEXIUM 40 MG OR CPDR 1 CAPSULE DAILY Past Medical History Diagnosis Date ??? Mixed Hyperlipidemia ??? Esophageal Reflux ??? Depressive Disorder, not Elsewhere Classified ??? Edema ??? Primary Localized Osteoarthrosis, Lower Leg ??? Unspecified Sleep Apnea ??? RESTLESS LEG SYNDROME Past Surgical History Procedure Date ??? delivery only , Low Cervical,X2 ??? Dilation/curettage,diagnostic X3 IN HER 50s ??? Appendectomy 1950 ??? Surgical history of - 2004 Partial sigmoid resection secondary to ruptured diverticulum. ??? Pelvis/hip joint surgery unlisted ??? Total knee arthroplasty 09/2007 RIGHT ??? Surgical history of - 10/2008 Right peroneal nerve release Family History Problem Relation ??? Stroke Mother D ; AGE 88 ??? Cancer Father D ; AGE 59 LUNG CANCER ??? Cancer Sister KIDNEY ??? Gynecology Sister ENDOMETRIOSIS ??? Family History Negative Sister ??? Cancer Paternal Grandmother OVARIAN ??? Heart Paternal Grandfather [place] ??? Depression Son History Social History ??? Marital Status: Spouse Name: N/A Number of Children: 2 ??? Years of Education: N/A Occupational History ??? Retired Social History Main Topics ??? Tobacco Use: Never ??? Alcohol Use: Yes SELDOM ??? Drug Use: No ??? Sexually Active: Not Currently Other Topics Concern ??? Not on file Social History Narrative ??? No narrative on file ROS: CONSTITUTIONAL:Slow, voluntary weight loss I: NEGATIVE for worrisome rashes, moles or lesions E/M: NEGATIVE for ear, mouth and throat problems R: NEGATIVE for significant cough or SOB CV: NEGATIVE for chest pain, palpitations or peripheral edema GI: NEGATIVE for nausea, abdominal pain, heartburn, or change in bowel habits : NEGATIVE for frequency, dysuria, or hematuria M: NEGATIVE for significant arthralgias or myalgia N: NEGATIVE for weakness, dizziness or paresthesias E: NEGATIVE for temperature intolerance, skin/hair changes EXAM: BP 108/60 Pulse 68 Resp 16 Ht 5' 5 (1.651 m) Wt 244 lb (110.678 kg) LMP Postmenopausal GENERAL APPEARANCE: healthy, alert and no distress EYES: EOMI, PERRL HENT: ear canals and TM's normal and nose and mouth without ulcers or lesions RESP: lungs clear to auscultation - no rales, rhonchi or wheezes CV: regular rates and rhythm, normal S1 S2, no S3 or S4 and no murmur, click or rub - ABDOMEN: soft, nontender, no HSM or masses and bowel sounds normal Assessment: 782.3 Edema (primary encounter diagnosis) Comment: Plan: LASIX 20 MG OR TABS 333.99 RESTLESS LEG SYNDROME Comment: Plan: 272.2 Mixed Hyperlipidemia Comment: Plan: 311 DEPRESSIVE DISORDER NEC Comment: Plan: Nader Garibay MD documented in this encounter Nursing Notes 03/27/2009 11:30 AM CDT >> LORRAINE Armstrong March 27, 2009 11:14 AM Patient presents with: RECHECK - medication review, refills Medications reviewed: Initial BP 108/60 Pulse 68 Resp 16 Ht 5' 5 (1.651 m) Wt 244 lb (110.678 kg) LMP Postmenopausal Body mass index is 40.60 kg/(m^2). 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
--- OUTSIDE RECORDS SUMMARY | 2022-10-07 10:48 | XMS_ITS | Encounter Summary ---
:1935 Author Organization [facility] Address [address] [place] [address] Care Team Providers Name Role Phone Nader Garibay MD Primary Care Provider Reason for Visit Reason Onset Date Comments Refill Request 02/20/2009 Encounter Details Date Type Department Care Team Description 02/20/2009 Refill [facility] Nader Garibay MD Refill Request [address] [address] [place] [phone] Social History Tobacco Use Types Packs/Day Years Used Date Smoking Tobacco: Never Alcohol Use Standard Drinks/Week Comments Yes 0 (1 standard drink = 0.6 oz pure alcoho l) SELDOM Sex Assigned at Date Recorded Not on file documented as of this encounter Miscellaneous Notes Telephone Encounter - Renee Barraza - 02/20/2009 9:38 AM CDT Filled by nurse per standing order. documented in this encounter Plan of Treatment Not on filedocumented as of this encounter Visit Diagnoses Diagnosis Edema documented in this encounter Care Teams Realtime Court Reporter Relationship Specialty Start Date End Date Nader Garibay MD PCP - General 01/01/02 10/16/17 documented as of this encounter
--- OUTSIDE RECORDS SUMMARY | 2022-10-07 10:48 | XMS_ITS | Encounter Summary ---
:1935 Author Organization [place] Address [facility] [place] [address] Care Team Providers Name Role Phone Diane Alejandra Primary Care Provider Encounter Details Date Type Department Care Team Description 11/22/2019 Orders Only [facility] Tomas Eckert Pre-o perative [facility] Laboratory MD Ivan laboratory examination [address] [facility] (Primary Dx) [place] [address] ORTHOPEDICS [phone] [facility] [address] [place] [address] Social History Tobacco Use Types Packs/Day Years Used Date Smoking Tobacco: Never Alcohol Use Standard Drinks/Week Comments Yes 0 (1 standard drink = 0.6 oz pure alcoho l) SELDOM Sex Assigned at Date Recorded Not on file documented as of this encounter Plan of Treatment Not on filedocumented as of this encounter Results Methicillin Resist/Sens S. aureus PCR (11/22/2019 9:00 AM METHODS AND PROCEDURES ANALYST) [facility] Method Time Signature Specimen Nares 11/22/2019 [place] Description 3:59 PM METHODS AND PROCEDURES ANALYST [facility] Methicillin Negative NEG^Negat 11/22/2019 [facility] Resist/Sens S. lilia 11:[address] [facility] MEDICAL aureus PCR [facility] Comment: MRSA Negative: SA Negative ??MRSA and St aphylococcus aureus target DNA not detected, presumed negative for MRSA and SA colonization or the number of bacteria present may be below the limit of detection for the assay. FDA approved assay performed using [employer](R) real-time PCR. Specimen (Source) Anatomical Collection Method Collection Time Re ceived Time Location / / Volume Laterality Nasal structure 11/22/2019 9:00 0 4:01 (body structure) AM METHODS AND PROCEDURES ANALYST PM METHODS AND PROCEDURES ANALYST Tomas Eckert MD LAB - MICRO GENERAL ORDERA BLES Performing Organization Address City/State/ZIP Code Phon e Number [facility] [address] [place] [address] [facility] [address] [place] [address], [facility] [phone] documented in this encounter Visit Diagnoses Diagnosis Pre-operative laboratory examination - P rimary Pre-procedural laboratory examination documented in this encounter Care Teams Deputy District Customs Director Relationship Specialty Start Date End Date Diane Alejandra PCP - General Internal Medicine 10/17/17 [facility] [address] [place] [address] documented as of this encounter
--- OUTSIDE RECORDS SUMMARY | 2022-10-07 10:48 | XMS_ITS | Encounter Summary ---
:1935 Author Organization [place] Address [address] [place] [address] Care Team Providers Name Role Phone Nader Garibay MD Primary Care Provider Reason for Visit Reason Comments Urinary Problem states she can't hold her ur ine, just comes with out warning sometimes Encounter Details Date Type Department Care Team Description 10/11/2009 Office Visit [facility] for Isaak Jones, Urge Incontinence Bladder Control - (Primary Dx) [address] [phone] (Wo rk) [address] [phone] Social History Tobacco Use Types Packs/Day Years Used Date Smoking Tobacco: Never Alcohol Use Standard Drinks/Week Comments Yes 0 (1 standard drink = 0.6 oz pure alcoho l) SELDOM Sex Assigned at Date Recorded Not on file documented as of this encounter Last Filed Vital Signs Vital Sign Reading Time Taken Comments Blood Pressure 118/70 10/11/2009 9:10 AM BASKETBALL PLAYER Pulse 64 10/11/2009 9:10 AM BASKETBALL PLAYER Temperature - - Respiratory Rate - - Oxygen Saturation - - Inhaled Oxygen Concentration - - Weight - - Height - - Body Mass Index - - documented in this encounter Progress Notes Isaak Jones - 10/11/2009 9:49 AM CST Vielka Yap is a 74 year old female for mixed incont. Consult from Dr Bro Garibay. Onset 3+ yrs ago, progressive, urge = stress (tomy with walk up stairs), wears 1- 2 heavy pads per day, voids q hr. Dry at nite, noc x 2-3, security pad, usually dry en route to restroom. Drinks several qts of NUIQSUT per day in addition to 2-3 caf coffee. Very long hx rt LE edema, now on Lasix 40 BID, drinks plenty of NUIQSUT to try to replace what I'm losing. Trying to keep dietary salt down but not as successful as she would like to be. No prior eval or signif UTI hx. Never tried bladder meds or Kegel's. Hx c/s x2, no hyster, no HRT. Some hx constipation/diarrhea after bowel resection for perforation, now stabilized. Has CPAP machine but doesn't use it. Relies on caffiene to keep her from feeling tired. Hx total knee and hip on rt. Past Surgical History Procedure Date ??? delivery only , Low Cervical,X2 ??? Dilation/curettage,diagnostic X3 IN HER 50s ??? Appendectomy 1950 ??? Surgical history of - 2004 Partial sigmoid resection secondary to ruptured diverticulum. ??? Pelvis/hip joint surgery unlisted ??? Total knee arthroplasty 09/2007 RIGHT ??? Surgical history of - 10/2008 Right peroneal nerve release Past Medical History Diagnosis Date ??? Mixed Hyperlipidemia ??? Esophageal Reflux ??? Depressive Disorder, not Elsewhere Classified ??? Edema ??? Primary Localized Osteoarthrosis, Lower Leg ??? Unspecified Sleep Apnea ??? RESTLESS LEG SYNDROME Current outpatient prescriptions : NATRUL-VITES OR TABS, 1 TABLET DAILY, Disp: , Rfl: ; CO Q10 100 MG OR TABS, 150mg tablet, Disp: , Rfl: ; CYMBALTA 60 MG OR CPEP, 1 CAPSULE DAILY, Disp: 90, Rfl: 3; VOLTAREN 75 MG OR TBEC, 1 daily, Disp: 90, Rfl: 3; NEXIUM 40 MG OR CPDR, 1 CAPSULE DAILY, Disp: 90, Rfl: 3; LASIX 20 MG OR TABS, TWO TABLETS TWICE DAILY, Disp: 3 MONTHS, Rfl: 3 POTASSIUM CHLORIDE CR 20 MEQ OR TBCR, TWO TABLETS DAILY, Disp: 3 MONTHS, Rfl: 3; WOMENS DAILY MULTIVITAMIN OR TABS, 1 TABLET DAILY, Disp: , Rfl: ; DOCUSATE SODIUM 100 MG OR CAPS, 1 CAPSULES DAILY, Disp: , Rfl: ; CALCARB 600 1500 MG OR TABS, 1 tablet daily, Disp: , Rfl: 0; SENNA 187 MG OR TABS, daily as needed, Disp: 14, Rfl: 0 Physical Exam: GENL: NAD. ABD: Obese, soft, non-tender, no masses. EG: Poorly-estrogenized, no masses. VAGINA: Poorly-estrogenized, no masses. BN HYPERMOBILITY: Mild. CYSTOCELE: Gr 1. APICAL PROLAPSE: None. RECTOCELE: None. BIMANUAL: No mass or tenderness. Cysto: (Informed consent obtained. Pause for cause performed) PVR: Nil MUCOSA: Normal without lesion ORIFICES: Normal location and morphology CAPACITY: 600cc; no pain with filling Valsalva: Mild hypermobility, moderate leakage noted. Results for orders placed in visit on 10/11/2009 URINE MACROSCOPIC ONLY Component Value Range ??? COLOR Yellow ??? APPEARANCE Clear ? ? GLUCOSE (URINE) Negative > NEG (mg/dL) ? ? BILI (URINE) Negative > NEG ? ? KETONE (URINE) Negative > NEG (mg/dL) ??? SPECIFIC GRAVITY 1.015 1.003 - 1.035 ? ? BLOOD (URINE) Negative > NEG ??? pH, Urine 7.0 5.0 - 7.0 (pH) ? ? Protein, Albumin Negative > NEG (mg/dL) ??? UROBILINOGEN 0.2 0.2 - 1.0 (EU/dL) ? ? NITRITE Negative > NEG ? ? Leuk Esterase Negative > NEG ??? Source Value: Midstream Urine Midstream Urine Midstream Urine IMP: 1. Mixed UI, massive fluid/caffiene/large lasix 2. Fatigue, sleep apnea, CPAP which is not being used 3. Hypermobility with ALISSA PLAN: 1. Discussed situation with patient in detail. 2. Consider moderation of fluid and salt; discussed in extreme detail. 3. Consider using CPAP on a regular basis. 4. Consider gradual reduction in caffiene. 5. RTC 8 wks to review progress; might consider antimuscarinics at that point; might consider sling at some point for refractory ALISSA component 6. Sixty minutes spent with patient, majority in discussion. ETBALL PLAYER documented in this encounter Nursing Notes 10/11/2009 9:00 AM CST >> KWAKU PEÑA Wed Oct 11, 2009 9:13 AM Patient presents with: Urinary Problem - states she can't hold her urine, just comes with out warning sometimes Initial BP 118/70 Pulse 64 LMP Postmenopausal Estimated Body mass index is 40.77 kg/(m^2) as calculated from: Height of 5' 5 (1.651 m) as of 09/15/09 Weight of 245 lb (111.131 kg) as of 09/15/09. BP completed using cuff size: large.kms documented in this encounter Plan of Treatment Not on filedocumented as of this encounter Procedures Procedure Name Priority Date/Time Associated Diagnosis Comme nts CL AFF URINE Routine 10/11/2009 9:13 AM Urge Incontinence Resu lts for this MACROSCOPIC ONLY BASKETBALL PLAYER procedure a re in the results section. documented in this encounter Results URINE MACROSCOPIC ONLY (10/11/2009 9:13 AM BASKETBALL PLAYER) [facility] Method Time Signature Color Urine Yellow [facility] Appearance Urine Clear [facility] Glucose Urine Negative NEG mg/dL [facility] Bilirubin Urine Negative NEG [facility] Ketones Urine Negative NEG mg/dL [facility] Specific [place] 1.015 1.003 - [place] Urine 1.035 [facility] [facility] Blood Urine Negative NEG [facility] pH Urine 7.0 5.0 - 7.0 [place] pH [facility] Protein Albumin Negative NEG mg/dL [place] Urine [facility] Urobilinogen 0.2 0.2 - 1.0 [place] Urine EU/dL [facility] Nitrite Urine Negative NEG [facility] [facility] Leukocyte Negative NEG [place] Esterase Urine [facility] Source Midstream Urine [place] Midstream Urine [place] FOR Midstream Urine [facility] Specimen Anatomical Collection Method Collection Time Receive d Time (Source) Location / / Volume Laterality 10/11/2009 9:13 AM 9:14 BASKETBALL PLAYER AM BASKETBALL PLAYER Isaak Jones MD LABORATORY Performing Organization Address City/State/ZIP Code Phon e Number [facility] documented in this encounter Visit Diagnoses Diagnosis Urge incontinence - Primary documented in this encounter Care Teams Inseam Trimming Machine Operator Relationship Specialty Start Date End Date Nader Garibay MD PCP - General 01/01/02 10/16/17 documented as of this encounter
--- OUTSIDE RECORDS SUMMARY | 2022-10-07 10:48 | XMS_ITS | Encounter Summary ---
:1935 Author Organization [place] Address [facility] [place] 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 Encounter Details Date Type Department Care Team Description 10/17/2017 Emergency [facility] Mykel Soils MD Right-sided low back [facility] Emergency [facility] pain with right-sided Dept PA sciatica, unspecified [address] [place] [address] [place] [address] [phone] Social History Tobacco Use Types Packs/Day Years Used Date Smoking Tobacco: Never Alcohol Use Standard Drinks/Week Comments Yes 0 (1 standard drink = 0.6 oz pure alcoho l) SELDOM Sex Assigned at Date Recorded Not on file documented as of this encounter Last Filed Vital Signs Vital Sign Reading Time Taken Comments Blood Pressure 175/50 10/17/2017 5:29 PM [facility] Pulse - - Temperature 36.5 ??C (97.7 ??F) 10/17/2017 12:18 PM [facility] Respiratory Rate 16 10/17/2017 3:45 PM [facility] Oxygen Saturation 98% 10/17/2017 5:29 PM [facility] Inhaled Oxygen Concentration - - Weight 111.1 kg (245 lb) 10/17/2017 12:18 PM [facility] Height 166.4 cm (5' 5.5) 10/17/2017 12:18 PM [facility] Body Mass Index 40.15 10/17/2017 12:18 PM [facility] documented in this encounter Discharge Instructions Discharge InstructionsMykel Solis MD - 10/17/2017 5:13 PM CST Discharge Instructions Back Pain You were seen today for back pain. Back pain can have many causes, but most will get better without surgery or other specific treatment. Sometimes there is a herniated (???slipped?? ) disc. We don???t usually do MRI scans to look for these right away, since most herniated discs will get better on their own with time. Today, we did not find any evidence that your back pain was caused by a serious condition, such as an infection, fracture, or tumor. However, sometimes symptoms develop over time and cannot be found during an emergency visit, so it is very important that you follow up with your primarydoctor. Return to the Emergency Department if: ??? You develop a fever with your back pain. ??? You have weakness or change in sensation in one or both legs. ??? You lose control of your bowels or bladder, or can???t empty your bladder. ??? Your pain gets much worse. Follow-up with your doctor: ??? Unless your pain has completely gone away, please make an appointment with your doctor within one week. You may need further management of your back pain, such as more pain medication, imaging suchas an X-ray or MRI, or physical therapy. What can I do to help myself? Remain Active -- People are often afraid that they will hurt their back further or delay recovery by remaining active, but this is one of the best things you can do for your back. In fact, prolonged bed rest is not recommended. Studies have shown that people with low back pain recover faster when they remain active. Movement helps to bring blood flow to the muscles and relieve muscle spasms as well as preventing loss of muscle strength. ??? Heat -- Using a heating pad can help with low back pain during the first few weeks. Do not sleepwith a heating pad, as you can be burned. ??? Pain medications - You may take a pain medication such as Tylenol?? (acetaminophen), Advil??, Nuprin?? (ibuprofen) or Aleve?? (naproxen). If you have been given a narcotic such as Vicodin?? (hydrocodone with acetaminophen), Percocet?? (oxycodone with acetaminophen), codeine, or a muscle relaxant such as Flexeril?? (cyclobenzaprine) or Soma?? (carisoprodol), do not drive for four hours after you have taken it. If the narcotic contains Tylenol?? (acetaminophen), do not take Tylenol?? with it. All narcotics will cause constipation, so eat a high fiber diet. If you were given a prescription for medicine here today, be sure to read all of the information (including the package insert) that comes with your prescription. This will include important information about the medicine, its side effects, and any warnings that you need to know about. The pharmacist who fills the prescription can provide more information and answer questions you may have about the medicine. If you have questions or concerns that the pharmacist cannot address, please call or return to the Emergency Department. Opioid Medication Information Pain medications are among the most commonly prescribed medicines, so we are including this information for all our patients. If you did not receive pain medication or get a prescription for pain medicine, you can ignore it. You may have been given a prescription for an opioid (narcotic) pain medicine and/or have received apain medicine while here in the Emergency Department. These medicines can make you drowsy or impaired. You must not drive, operate dangerous equipment, or engage in any other dangerous activities whiletaking these medications. If you drive while taking these medications, you could be arrested for DUI, or driving under the influence. Do not drink any alcohol while you are taking these medications. Opioid pain medications can cause addiction. If you have a history of chemical dependency of any type, you are at a higher risk of becoming addicted to pain medications. Only take these prescribed medications to treat your pain when all other options have been tried. Take it for as short a time and asfew doses as possible. Store your pain pills in a secure place, as they are frequently stolen and provide a dangerous opportunity for children or visitors in your house to start abusing these powerful medications. We will not replace any lost or stolen medicine. As soon as your pain is better, you should flush all your remaining medication. Many prescription pain medications contain Tylenol?? (acetaminophen), including Vicodin??, Tylenol #3??, [place]??, Lortab??, and Percocet??. You should not take any extra pills of Tylenol?? if you are using these prescription medications or you can get very sick. Do not ever take more than 3000 mg of acetaminophen in any 24 hour period. All opioids tend to cause constipation. Drink plenty of water and eat foods that have a lot of fiber, such as fruits, vegetables, prune juice, apple juice and high fiber cereal. Take a laxative if you don???t move your bowels at least every other day. Miralax??, Milk of Magnesia, Colace??, or Senna?? can be used to keep you regular. Remember that you can always come back to the Emergency Department if you are not able to see your regular doctor in the amount of time listed above, if you get any new symptoms, or if there is anything that worries you. [facility] documented in this encounter Medications at Time of Discharge Medication Sig Dispensed Refills Start Date End Date SENNA PO Take 1 tablet by 14 0 10/15/2007 mouth daily as needed CALCARB 600 1500 MG OR 1 tablet daily 0 8 11/29/2019 TABS CO Q10 100 MG OR TABS 150mg tablet 0 0 11/29/2019 CYMBALTA 60 MG OR 1 CAPSULE DAILY 90 3 09/15/2009 CPEPIndications: Depressive disorder, not elsewhere classified DOCUSATE SODIUM 100 MG OR 1 CAPSULES DAILY 0 11/29/2019 CAPS LASIX 20 MG OR TWO TABLETS TWICE 3 MONTHS 3 09/15/2009 TABSIndications: Edema DAILY NATRUL-VITES OR TABS 1 TABLET DAILY 0 11/29/2019 NEXIUM 40 MG OR 1 CAPSULE DAILY 90 3 09/15/200911/17 CPDRIndications: Esophageal reflux oxyCODONE IR (ROXICODONE) Take 1 tablet (5 mg) 20 tablet 0 10/17/2017 11/30/2019 5 MG tablet by mouth every 6 hours as needed for pain POTASSIUM CHLORIDE CR 20 TWO TABLETS DAILY 3 MONTHS 3 08/1911/29/2019 MEQ OR TBCRIndications: Edema VOLTAREN 75 MG OR 1 daily 90 3 09/15/2009 020 TBECIndications: Primary localized osteoarthrosis, lower leg WOMENS DAILY MULTIVITAMIN 1 TABLET DAILY 0 11/29/2019 OR TABS documented as of this encounter Progress Notes Navjot Tiwari PA - 10/17/2017 3:31 PM CST RADIOLOGY PROCEDURE NOTE Patient name: Vielka Yap : 1935 Pre-procedure diagnosis: Right hip pain, rule out septic arthritis Post-procedure diagnosis: Same Procedure Date/Time: October 17, 2017 3:31 PM Procedure: Right hip joint aspiration Estimated blood loss: None Specimen(s) collected with description: 3 cc yellow synovial fluid, no seng purulence The patient tolerated the procedure well with no immediate complications. Significant findings:none See imaging dictation for procedural details. Provider name: Navjot Tiwari Bacteriologist Soil(s):None [facility] documented in this encounter ED Notes Keiry Ham RN - 10/17/2017 5:34 PM CST Patient discharged in stable condition. Patient received follow-up instructions, acetaminophen dose,and 1RXs. No questions at time of discharge. IV removed - catheter intact. [facility] Mae Sebastian RN - 10/17/2017 3:49 PM CST Breathing easy, non-labored. Skin w/d. AOx3. Pt reports the procedure went well. C/o pain 9/10 in the R hip, but reports it's tolerable. [facility] Mykel Solis MD - 10/17/2017 12:07 PM CST History Chief Complaint: Post op problem HPI Vielka Yap is a 82 year old female with a medical history of obesity, restless leg syndrome, and hyperlipidemia who presents with a post-op problem. On 09/28, patient went in to her dentist and had a root canal, and was sitting in a dental chair for 7 hours ago. Patient notes 5 days ago. 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 Thepatient then went to [facility] to obtain a hip x- ray which was unremarkable. Patient states that she running a fever. Patient was at 92 F yesterday morning [facility] Patient was suggested to come to the emergency department for further testing and evaluation for concerns of infection in joints. On evaluation, patient notes that she is experiencing right hip pain radiating to the right leg. Pain worsens when moving her leg up and down, but improves when standing. Allergies: Augmentin Ibuprofen Tetracycline Medications: Natrul-vites CO Q10 Cymbalta Voltaren Nexium Women's daily multivitamins Docusate sodium Calcarb 600 Senna Past Medical History: Depression Esophageal reflux Hyperlipidemia Osteoarthrosis Restless leg syndrome Sleep apnea Obesity Past Surgical History: Appendectomy delivery x2 Pelvis/hip joint surgery Knee arthroplasty D&C x3 Partial sigmoid resection Right peroneal nerve release Family History: Cerebrovascular disease Lung cancer Kidney cancer Endometriosis Depression Social History: Smoking status: Never smoker Alcohol use: Yes, seldom Marital Status: [5] Review of Systems Constitutional: Negative for chills and fever. Musculoskeletal: Positive for arthralgias and back pain. All other systems reviewed and are negative. Physical Exam Patient Vitals for the past 24 hrs: BP Temp Temp src Heart Rate Resp SpO2 Height Weight 10/17/17 1729 175/50 - - 59 - 98 % - - 10/17/17 1545 148/55 - - 62 16 98 % - - 10/17/17 1218 149/48 97.7 ??F (36.5 ??C) Oral 61 16 100 % 1.664 m (5' 5.5) 111.1 kg (245 lb) Physical Exam GENERAL: well developed, pleasant HEAD: atraumatic EYES: pupils reactive, extraocular muscles intact, conjunctivae normal ENT: mucus membranes moist NECK: trachea midline, normal range of motion RESPIRATORY: no tachypnea, breath sounds clear to auscultation CVS: normal S1/S2, no murmurs, intact distal pulses ABDOMEN: soft, nontender, nondistention MUSCULOSKELETAL: no deformities. Able to move in internally and externally. Able to flex the knee. Unable to reproduce the pain. SKIN: warm and dry, no acute rashes or ulceration NEURO: GCS 15, cranial nerves intact, alert and oriented x3 PSYCH: Mood/affect normal Emergency Department Course Imaging: Radiographic findings were communicated with the patient who voiced understanding of the findings. XR Joint Aspiration Major Technically successful right hip aspiration. As read by Radiology. Laboratory: CBC: WNL (WBC 6.5, HGB 13.6, PLT 180) Cell count: WNL Fluid culture: Pending. Crystal ID synovial fluid: No clinically significant crystals seen. Gram stain: No organisms seen. CRP inflammation: 6.7 Erythrocyte sedimentation rate: 14 Interventions: 1513: Lidocaine 1% 5 mLs Intradermal Emergency Department Course: Past medical records, nursing notes, and vitals reviewed. 1246: I performed an exam of the patient and obtained history, as documented above. IV inserted and blood drawn. The patient was sent for a XR joint aspiration while in the emergency department, findings above. I rechecked the patient. Findings and plan explained to the Patient. Patient discharged home with instructions regarding supportive care, medications, and reasons to return. The importance of close follow-up was reviewed. Impression & Plan Medical Decision Making: Vielka Yap is a 82 year old female who was sent in to rule out septic joint in her hip.Patient is unable to externally and internally rotate her hip. She does have a history of sciatica. She describes the pain that warps around to the front of her right leg and has had an x-ray. I did not suspect occult fracture (had xray at ortho clinic today). Work-up shows normal labs, normal joint fluid. She notes that she recently has been doing some physical therapy, possibly exacerbated some lower back issues. Patient is reassured. Discussed outpatient pain control namely Tylenol 1000 mg 3 times a day and Roxicodone with cautions and following-up with her care team. Diagnosis: ICD-10-CM 1. Right-sided low back pain with right-sided sciatica, unspecified chronicity M54.41 Cell count with differential fluid Disposition: discharged to home Discharge Medications: Details oxyCODONE IR (ROXICODONE) 5 MG tablet Take 1 tablet (5 mg) by mouth every 6 hours as needed for pain, Disp-20 tablet, R-0, Local Print Cherie Montoya 10/17/2017 EMERGENCY DEPARTMENT I, Cherie Montoya, am serving as a scribe at 12:46 PM on 10/17/2017 to document services personally performed by Mykel Solis MD based on my observations and the provider's statements to me. Mykel Solis MD 10/17/172142 [facility] documented in this encounter Plan of Treatment Not on filedocumented as of this encounter Procedures Procedure Name Priority Date/Time Associated Comments Diagnosis GRAM STAIN STAT 10/17/2017 3:15 PM Right-sided low Result s for this [facility] back pain with procedure are in right-sided the results sciatica, section. unspecified chronicity FLUID CULTURE AEROBIC STAT 10/17/2017 3:15 PM Right-sided l ow Results for this BACTERIAL [facility] back pain with procedure are in right-sided the results sciatica, section. unspecified chronicity CRYSTAL ID SYNOVIAL STAT 10/17/2017 3:15 PM Re sults for this FLUID [facility] procedure are i n the results section. CELL COUNT WITH STAT 10/17/2017 3:15 PM Right-sided low Res ults for this DIFFERENTIAL FLUID [facility] back pain with procedu re are in right-sided the results sciatica, section. unspecified chronicity XR JOINT ASPIRATION STAT 10/17/2017 3:14 PM Re sults for this MAJOR RIGHT [facility] procedure are i n the results section. CBC WITH PLATELETS & STAT 10/17/2017 1:18 PM R esults for this DIFFERENTIAL [facility] procedure are i n the results section. ERYTHROCYTE STAT 10/17/2017 1:18 PM Results f or this SEDIMENTATION RATE [facility] procedure are in AUTO the results section. CRP INFLAMMATION STAT 10/17/2017 1:18 PM Resul ts for this [facility] procedure are i n the results section. documented in this encounter Results Cell count with differential fluid (10/17/2017 3:15 PM [facility]) P athologist Signature Body Fluid Right 10/17/2017 [facility] Analysis Source 3:30 PM [facility] Comment: Hip Aspirate % Neutrophils Fluid 7 % 10/17/2017 6:00 PM [facility] % Lymphocytes Fluid 24 % 10/17/2017 6:00 PM [facility] % Wetzel/Macro Fluid 6 % 10/17/2017 6:00 PM CS T [facility] % Other Cells Fluid 63 % 10/17/2017 6:00 PM C [facility] Comment: LINNING CELLS Color Fluid Yellow 10/17/2017 6:00 PM [facility] Appearance Fluid Clear 10/17/2017 6:00 PM [facility] WBC Fluid 3 /uL 10/17/2017 6:00 PM [facility] Comment: No reference ranges have been establishe d. ??This result should be interpreted in the context of the patient's clinical condition and compared to simultaneous measurement in the patient' s blood. ??Refer to Lab Guide for specific interpretive guidelines. Specimen Anatomical Collection Method Collection Time Receive d Time (Source) Location / / Volume Laterality Right 10/17/2017 3:15 PM 10/17/ 7 3:29 [facility] PM [facility] Mykel Solis MD LAB - BODY FLUIDS ORDERABLES Performing Organization Address City/State/ZIP Code Phon e Number [facility] [address] [place] [address] [facility] [address] [place] [address], U [phone] Fluid Culture Aerobic Bacterial (10/17/2017 3:15 PM [facility]) [facility] gist Method Time Signature Specimen Right Hip INFECTIOUS Description Aspirate DISEASE DIAGNOSTIC LABORATORY Special ALSO RECVD 10/17/2017 [facility] ANER TUBE 10:42 PM [facility] Culture Micro No growth 10/22/2017 INFECTIOUS 7:29 AM [facility] DISEASE DIAGNOSTIC LABORATORY Specimen Anatomical Collection Method Collection Time Receive d Time (Source) Location / / Volume Laterality Swab from hip RIGHT HIP REGION 10/17/2017 3:15 PM 11/2016 3:27 region STRUCTURE / [facility] PM [facility] (specimen) Unknown Comment: Aspirate Mykel Solis MD LAB - MICRO GENERAL ORDERABL ES Performing Organization Address City/State/ZIP Code Phon e Number INFECTIOUS DISEASES [address] [place] [address] DIAGNOSTIC LABORATORY, [facility] INFECTIOUS DISEASE [address] [place] [address], [facility] DIAGNOSTIC LABORATORY [address] [address], [facility] Crystal ID synovial fluid (10/17/2017 3:15 PM [facility]) [facility] Method Time Signature Crystal No clincally NOCRYS^No 10/17/2017 [facility] Analysis significant clincally 4:11 PM [facility] crystals seen. significant HOSPITAL crystals seen. Specimen Anatomical Collection Method Collection Time Receive d Time (Source) Location / / Volume Laterality Synovial fluid 10/17/2017 3:15 PM 017 3:28 specimen [facility] PM [facility] (specimen) Mykel Solis MD LAB - BODY FLUIDS ORDERABLES Performing Organization Address City/State/ZIP Code Phon e Number M [facility] [address] [place] [address] [facility] [address] [place] [address], [place] [phone] Gram stain (10/17/2017 3:15 PM [facility]) [facility] Method Time Signature Specimen Right Hip MICRO RAPID Description Aspirate TESTING LAB Gram Stain No organisms 10/18/2017 MICRO RAPID seen 3:19 AM [facility] TESTING LAB Gram Stain Rare 10/18/2017 MICRO RAPID WBC'S seen 3:19 AM [facility] TESTING LAB Gram Stain Preliminary Gram stain report called to and read back by 10/18/2017 MICRO RAPID GEORGE DRYER RN IN ED @ 1611 WD 3:19 AM CS T TESTING LAB Gram Stain Gram stain review consistent with reported results. 10/18/2017 MICRO RAPID Gram stain slide reviewed at the Infectious Diseases Diagnostic Laboratory - [facility] 3:19 AM [facility] TESTING LAB Specimen Anatomical Collection Method Collection Time Receive d Time (Source) Location / / Volume Laterality Swab from hip 10/17/2017 3:15 PM 10/17/20 17 3:27 region [facility] PM [facility] (specimen) Comment: Aspirate Mykel Solis MD LAB - MICRO GENERAL ORDERABL ES Performing Organization Address City/State/ZIP Code Phon e Number MICRO RAPID TESTING LAB [address] [place] [address] XR Joint Aspiration Major Right (10/17/2017 3:14 PM [facility]) Anatomical Region Laterality Modality Lower Extremity Right Radio Fluoroscopy Specimen (Source) Anatomical Location Collection Method / Collectio n Time Received Time / Laterality Volume Impressions 10/17/2017 4:10 PM [facility] IMPRESSION: ??Technically successful right hip aspiration. NAVJOT TIWARI PA-C Narrative 10/17/2017 4:10 PM [facility] EXAM: XR JOINT ASPIRATION MAJOR RIGHT ??10/17/2017 3:14 PM ?? History: ??Right hip pain, evaluate for septic joint. PROCEDURE: The risks (including bleeding , infection, and allergy to contrast and medications) and benefits o f the procedure were explained to the patient and consent was obtained. ??Using sterile technique and fluoroscopic guidance, a #20 gauge needl e was placed into the Right hip joint using an anterior approach. ?? About 4 mL of yellow synovial fluid was aspirated, no seng purulence. ??No initial complication. Fluid sent to lab for analysis. ?? Fluoroscopy time: 0.1 minutes. Number of Images: 1 Medications used: 5ml topical lidocaine 1% Procedure Note Navjot Tiwari PA - 10/17/2017F ormatting of this note might be different from the original. EXAM: XR JOINT ASPIRATION MAJOR RIGHT 3:14 PM History: Right hip pain, evaluate for se ptic joint. PROCEDURE: The risks (including bleeding , infection, and allergy to contrast and medications) and benefits o f the procedure were explained to the patient and consent was obtained. Using sterile technique and fluoroscopic guidance, a #20 gauge needl e was placed into the Right hip joint using an anterior approach. Ab out 4 mL of yellow synovial fluid was aspirated, no seng purulence. No initial complication. Fluid sent to lab for analysis. Fluoroscopy time: 0.1 minutes. Number of Images: 1 Medications used: 5ml topical lidocaine 1% IMPRESSION: Technically successful right hip aspiration. NAVJOT TIWARI PA-C Mykel Solis MD [facility] DIAGNOSTIC IMAGING ORDER HEAHTER CRP inflammation (10/17/2017 1:18 PM [facility]) P athologist Signature CRP Inflammation 6.7 0.0 - 8.0 10/17/2017 [facility] mg/L 1:54 PM [facility] Specimen Anatomical Collection Method Collection Time Receive d Time (Source) Location / / Volume Laterality Blood specimen 10/17/2017 1:18 PM 017 1:29 (specimen) [facility] PM [facility] Mykel Solis MD LAB - BLOOD ORDERABLES Performing Organization Address City/State/ZIP Code Phon e Number M [facility] [address] [place] [address] [phone] [facility] [address] [place] [address], [place] [phone] Erythrocyte sedimentation rate auto (10/17/2017 1:18 PM [facility]) P athologist Signature Sed Rate 14 0 - 30 mm/h 10/17/2017 [facility] 2:00 PM [facility] Specimen Anatomical Collection Method Collection Time Receive d Time (Source) Location / / Volume Laterality Blood specimen 10/17/2017 1:18 PM 017 1:29 (specimen) [facility] PM [facility] Mykel Solis MD LAB - BLOOD ORDERABLES Performing Organization Address City/State/ZIP Code Phon e Number M [facility] [address] [place] [address] [phone] [facility] [address] [place] [address], [place] [phone] CBC with platelets + differential (10/17/2017 1:18 PM [facility]) Patholo gist Method Time Signature WBC 6.5 4.0 - 10/17/2017 [facility] 11.0 1:[address] [facility] 10e9/L [facility] RBC Count 4.66 3.8 - 5.2 10/17/2017 [facility] 10e12/L 1:33 PM [facility] Hemoglobin 13.6 11.7 - 10/17/2017 [facility] 15.7 g/dL 1:33 PM [facility] Hematocrit 41.2 35.0 - 10/17/2017 [facility] 47.0 % 1:33 PM [facility] MCV 88 78 - 100 10/17/2017 [facility] fl 1:33 PM [facility] MCH 29.2 26.5 - 10/17/2017 [facility] 33.0 pg 1:33 PM [facility] MCHC 33.0 31.5 - 10/17/2017 [facility] 36.5 g/dL 1:33 PM [facility] RDW 13.4 10.0 - 10/17/2017 [facility] 15.0 % 1:33 PM [facility] Platelet Count 180 150 - 450 10/17/2017 [facility] 10e9/L 1:33 PM [facility] Diff Method Automated 10/17/2017 [facility] Method 1:33 PM [facility] % Neutrophils 69.0 % 10/17/2017 [facility] 1:33 PM [facility] % Lymphocytes 20.5 % 10/17/2017 [facility] 1:33 PM [facility] % Monocytes 7.1 % 10/17/2017 [facility] 1:33 PM [facility] % Eosinophils 2.3 % 10/17/2017 [facility] 1:33 PM [facility] % Basophils 0.3 % 10/17/2017 [facility] 1:33 PM [facility] % Immature 0.8 % 10/17/2017 [facility] Granulocytes 1:33 PM [facility] Nucleated RBCs 0 0 /100 10/17/2017 [facility] 1:33 PM [facility] Absolute 4.5 1.6 - 8.3 10/17/2017 [facility] Neutrophil 10e9/L 1:33 PM [facility] Absolute 1.3 0.8 - 5.3 10/17/2017 [facility] Lymphocytes 10e9/L 1:33 PM [facility] Absolute 0.5 0.0 - 1.3 10/17/2017 [facility] Monocytes 10e9/L 1:33 PM [facility] Absolute 0.2 0.0 - 0.7 10/17/2017 [facility] Eosinophils 10e9/L 1:33 PM [facility] Absolute 0.0 0.0 - 0.2 10/17/2017 [facility] Basophils 10e9/L 1:33 PM [facility] Abs Immature 0.1 0 - 0.4 10/17/2017 [facility] Granulocytes 10e9/L 1:33 PM [facility] Absolute 0.0 10/17/2017 [facility] Nucleated RBC 1:33 PM [facility] Specimen Anatomical Collection Method Collection Time Receive d Time (Source) Location / / Volume Laterality Blood specimen 10/17/2017 1:18 PM 017 1:29 (specimen) [facility] PM [facility] Mykel Solis MD LAB - BLOOD ORDERABLES Performing Organization Address City/State/ZIP Code Phon e Number M [facility] [address] [place], [place] [address] [facility] [address] [place] [address], [phone] documented in this encounter Visit Diagnoses Diagnosis Right-sided low back pain with right-angelo ed sciatica, unspecified chronicity documented in this encounter Administered Medications Inactive Administered Medications - up to 3 most recent administrations Medication Order MAR Action Action Date Dose Rate Site acetaminophen (TYLENOL) tablet Given 10/17/2017 5:32 PM [facility] 1,00 0 mg 500 mg 500 mg, Oral, ONCE, On Fri10/17/17 at 1730, For 1 dose, Maximum acetaminophen dose from all sources = 75 mg/kg/day not to exceed 4 gram lidocaine 1 % 5 mL Given 10/17/2017 3:13 PM [facility] 5 mLs 5 mL, Intradermal, ONCE, On Fri10/17/17 at 1459, For 1 dose documented in this encounter Active and Recently Administered Medications Times are shown in [facility]. Scheduled Medication Order 10/15/2017 10/16/2017 10/17/2017 acetaminophen (TYLENOL) tablet 500 mg (COMPLETED) 1732 (Given - Provider: Keiry Ham RN) 500 mg, Oral, ONCE, Fri10/17/17 at 1730, For 1 dose, Maximum acetaminophen dose from all sources = 75 mg/kg/day not to exceed 4 gram acetaminophen (TYLENOL) tablet 500 mg 1733 (Canceled Entry - Provider: Keiry Ham RN) 500 mg, Oral, ONCE, Fri10/17/17 at 1734, For 1 dose, Maximum acetaminophen dose from all sources = 75 mg/kg/day not to exceed 4 gram lidocaine 1 % 5 mL (COMPLETED) 1 513 (Given - Provider: Dona Mkceon - Comment: 5ml given intradermally.) 5 mL, Intradermal, ONCE, Fri10/17/17 at 1459, For 1 dose documented in this encounter Care Teams Slurry Mixer Relationship Specialty Start Date End Date Diane Alejandra PCP - General Internal Medicine 10/17/17 [facility] [address] [place] [address] documented as of this encounter
--- OUTSIDE RECORDS SUMMARY | 2022-10-07 10:48 | XMS_ITS | Encounter Summary ---
:1935 Author Organization [facility] Address [address] [place] [address] Care Team Providers Name Role Phone Nader Garibay MD Primary Care Provider Reason for Visit Reason Onset Date Comments Refill Request 09/12/2009 Encounter Details Date Type Department Care Team Description 09/12/2009 Refill [facility] Nader Garibay MD Refill Request [address] [address] [place] [phone] Social History Tobacco Use Types Packs/Day Years Used Date Smoking Tobacco: Never Alcohol Use Standard Drinks/Week Comments Yes 0 (1 standard drink = 0.6 oz pure alcoho l) SELDOM Sex Assigned at Date Recorded Not on file documented as of this encounter Miscellaneous Notes Telephone Encounter - Renee Barraza - 09/13/2009 11:24 AM CDT Filled by nurse per standing order. documented in this encounter Plan of Treatment Not on filedocumented as of this encounter Visit Diagnoses Diagnosis Edema documented in this encounter Care Teams Type Rolling Machine Operator Relationship Specialty Start Date End Date Nader Garibay MD PCP - General 01/01/02 10/16/17 documented as of this encounter
--- OUTSIDE RECORDS SUMMARY | 2022-10-07 10:48 | XMS_ITS | Encounter Summary ---
:1935 Author Organization [facility] Address [address] [place] [address] Care Team Providers Name Role Phone Nader Garibay MD Primary Care Provider Reason for Referral Specialty Diagnoses / Procedures Referred By Contact Refer red To Contact Nader Garibay MD [address] [address] 0 Referral ID Status Reason Start Date Expiration Date Visits Requ ested Visits Authorized OR APPLICATIONS ENGINEER Encounter Details Date Type Department Care Team Description 11/04/[address] [facility] Nader Garibay DIAGNOSIS NOT YET Clinic Tiny Crabtree MD DEFINED (Primary Dx) [place] [address] [phone] Social History Tobacco Use Types Packs/Day Years Used Date Smoking Tobacco: Never Alcohol Use Standard Drinks/Week Comments Yes 0 (1 standard drink = 0.6 oz pure alcoho l) SELDOM Sex Assigned at Date Recorded Not on file documented as of this encounter Plan of Treatment Not on filedocumented as of this encounter Procedures Procedure Name Priority Date/Time Associated Diagnosis Comme nts ZZ CONSULT NEUROSURGERY Routine 10/29/2008 DIAGNOSIS NOT YET DEFINED documented in this encounter Results CONSULT NEUROSURGERY (10/29/2008) Narrative This result has an attachment that is no t available. Nader Garibay MD REFERRAL documented in this encounter Visit Diagnoses Diagnosis DIAGNOSIS NOT YET DEFINED - Primary documented in this encounter Care Teams Refrigeration Engineer Relationship Specialty Start Date End Date Nader Garibay MD PCP - General 01/01/02 10/16/17 documented as of this encounter
--- OUTSIDE RECORDS SUMMARY | 2022-10-07 10:48 | XMS_ITS | Encounter Summary ---
:1935 Author Organization [place] Address Critical access hospital0 [facility]. [address] Care Team Providers Name Role Phone Diane Alejandra Primary Care Provider Reason for Visit Auth/Cert Specialty Diagnoses / Procedures Referred By Contact Refer red To Contact Surgery Diagnoses Osteoarthritis of left hip, unspecified osteoarthritis type Osteoarthritis of left hip, unspecified osteoarthritis type [M16.12] Periop Services Procedures ARTHROPLASTY, HIP, TOTAL, DIRECT ANTERIOR APPROACH [address] [place] [address] Phone: Referral ID Status Reason Start Date Expiration Date Visits Requ ested Visits Authorized [id number] 1 1 Encounter Details Date Type Department Care Team Description 11/29/2019 Surgery [facility] Tomas Eckert LEFT TOTAL HIP [facility] Peri MD Ivan ARTHROPLASTY DIRECT Services [facility] ANTERIOR APPROACH [address] [facility] [facility] [address] [phone] [place], [place] [address] (Wo rk) Surgery Details Date/Time Status Location OR Service Patient Case Case Traum a Class Class Type Case? 11/29/19 9:20 Posted OR OR Orthopedics Surgery AM 34 Admit Panel 1 Procedure LRB Anes Op Region Wound Class Commen ts LEFT TOTAL HIP ARTHROPLASTY DIRECT Left General Hip I -Clean ANTERIOR APPROACH Surgeon Surgeon Role Service Panel Tomas Eckert MD Primary Orthopedics 1 Yuni Kyle Assisting 1 Special Needs MRSA-MSSA negative documented in this encounter Social History Tobacco Use Types Packs/Day Years Used Date Smoking Tobacco: Never Smokeless Tobacco: Never Alcohol Use Standard Drinks/Week Comments Yes 0 (1 standard drink = 0.6 oz pure alcoho l) 2drinks a month Sex Assigned at Date Recorded Not on file documented as of this encounter Last Filed Vital Signs Vital Sign Reading Time Taken Comments Blood Pressure 148/55 11/29/2019 8:32 AM CENTRAL SUPPLY ASSISTANT Pulse 66 11/29/2019 8:32 AM CENTRAL SUPPLY ASSISTANT Temperature 36.9 ??C (98.5 ??F) 11/29/2019 8:32 AM CENTRAL SUPPLY ASSISTANT Respiratory Rate 16 11/29/2019 8:32 AM CENTRAL SUPPLY ASSISTANT Oxygen Saturation 99% 11/29/2019 8:32 AM CENTRAL SUPPLY ASSISTANT Inhaled Oxygen Concentration - - Weight 108 kg (238 lb) 11/29/2019 8:06 AM CENTRAL SUPPLY ASSISTANT Height 165.1 cm (5' 5) 11/29/2019 8:06 AM CENTRAL SUPPLY ASSISTANT Body Mass Index 39.61 11/29/2019 8:06 AM CENTRAL SUPPLY ASSISTANT documented in this encounter Discharge Summaries Yuni [...] daily and as needed Other instructions: None RAL SUPPLY ASSISTANT documented in this encounter Medications at Time [...] ] PLAN: Discharge plan: home this morning RAL SUPPLY ASSISTANT Karla Esparza OT - 11/30/2019 4:40 PM CST 11/30/19 [...] hospital bed(has only used X3 days);also has box car bracer, sock- aide and LHSH. Pt.very concerned about getting into home/stairs. Self-Care Usual Activity Tolerance fair Current Activity Tolerance fair Regular Exercise (Home PT) Equipment Currently Used at Home dressing device;hospital bed;raised toilet;shower chair;walker, rolling;other (see comments) (hand-held shower hose) Activity/Exercise/Self-Care Comment Pt. reports she has had 4 falls in the last 2 months, 2 calls [facility], resulting in ER visits, getting Home PT;Pt. repports Bshoulder painful since falls, but believes she may have nerve impingment BUE;also related she blileves she may have fibromyalgia. Pt. reports she has had 2 visits from FERRY OPERATOR who assists w/bathing, able to dress UE, [...] person Dressing 2-->assistive person (able to dress UE's;FERRY OPERATOR assist w/ LE's) Eating 0-->independent Communication 0-->understands/communicates [...] Transfer Skill: Sit to Stand Level of [place]: Sit/Stand contact guard Physical Assist/Nonphysical Assist: Sit/Stand verbal cues;1 person assist Transfer Skill: Sit to Stand weight-bearing as tolerated Assistive Device for Transfer: Sit/Stand rolling walker Toilet Transfer Toilet Transfer Comments has a BSC + higher toilets/vamity at home Transfer Skill: Toilet Transfer Toilet Transfer Skill Comments walk-in shower/assist for bathing/DME Balance Balance Comments impaired Lower Body Dressing Level of [place]: Dress Lower Body minimum assist (75% patients effort) Toileting Level of [place]: Toilet stand-by assist Grooming Level of [place]: Grooming stand-by assist Instrumental Activities of Daily [...] Needs at Discharge other (see comments) (leg oral communication instructor;grab bars) Anticipated Discharge Disposition Home;Home with Assist;Home with Home Therapy Risks and Benefits of Treatment have been explained. Yes Patient, Family & other staff in agreement with plan of care Yes [facility]-PAC TM 6 Clicks ?? 2016, Trustees of [facility], under license to [employer]. All rights reserved. 6 Clicks Short Forms Daily Activity Inpatient Short Form [facility]??? 6 Clicks Daily Activity Inpatient [...] Evaluation Time Total Evaluation Time (Minutes) 18 RAL SUPPLY ASSISTANT Joseline Rush, PT - 11/30/2019 11:46 AM CST 11/30/19 0953 Quick Adds Type of Visit Initial PT Evaluation Living Environment Lives With spouse Living Arrangements house ([facility]) Home Accessibility stairs to enter home;stairs within [...] in agreement with plan of care Yes [facility]-P[facility] TM 6 Clicks ?? 2016, Trustees of [facility], under license to [employer]. All rights reserved. 6 Clicks Short Forms Basic Mobility Inpatient Short Form [facility]??? 6 Clicks V.2 Basic Mobility Inpatient Short [...] Evaluation Time Total Evaluation Time (Minutes) 5 RAL SUPPLY ASSISTANT Yuni Kyle - 11/30/2019 8:07 AM CST [...] home with home health Yuni Kyle PA-C RAL SUPPLY ASSISTANT June Soto - 11/29/2019 8:03 AM CST Medication History Completed by Medication Scribe Admission medication history interview status for the 11/29/2019 admission is complete. See [facility] admission navigator for prior to admission [...] times daily At 0800 and 2000 11/28/2019 [id number] Yes Reported, Patient esomeprazole (NEXIUM) 20 MG [...] severe pain 11/28/2019at prn Yes Reported, Patient RAL SUPPLY ASSISTANT documented in this encounter Consult Notes Adriana [...] the following services: [facility], PT/OT/INFORMATION DELIVERY ANALYST Identified issues/concerns regarding health management: NA PLAN [...] to face, progress notes faxed to [facility]. . First visit will be tomorrow. Care Hvac Journeyman (CTS) will continue to follow as needed. Adriana Funk RN, BSN Inpatient Care Coordination [phone] [facility] RAL SUPPLY ASSISTANT documented in this encounter Nursing Notes Carri Bermeo RN - 11/29/2019 4:07 PM CST Pt updated on delay in bed status, pain is well managed, able to converse easily with nursing staff.VSS, will continue to monitor. RAL SUPPLY ASSISTANT Eli Bang RN - 11/29/2019 3:54 PM CST 1600 care transferred to [facility] RAL SUPPLY ASSISTANT Eli Bang RN - 11/29/2019 3:04 PM CST 1500 pt wide awake, conversing, eating crackers. RAL SUPPLY ASSISTANT Eli Bang RN - 11/29/2019 2:58 PM CST 1450 5th floor called me and said they found her looking for patient. Nurse upstairs told home she is doing well they are waiting for a discharge. will wait in 5th floor waiting room until she comes upstairs, aware she is doing well. Ok with dr griffin for pt to go upstairs RAL SUPPLY ASSISTANT Mayra Ramirez RN - 11/29/2019 1:03 PM CST Transferred Care to Beth Moise. RAL SUPPLY ASSISTANT documented in this encounter Miscellaneous Notes Plan of Care - Erika Javier RN - 12/01/2019 10:43 AM CST Patient A&Ox4, VSS on RA with low diastolic BP - asymptomatic. Pain well managed with PRN oxycodone. Regular diet. Up Ax1 GB/W. Voiding well. CMS intact with baseline neuropathy. Discharged home with spouse - questions answered, medications reviewed. RAL SUPPLY ASSISTANT Plan of Care - Joseline Rush PT [...] goal(s). See goals on Care Plan in [facility] electronic health record for goal details. Goals partially met. Barriers to achieving goals: discharge from facility. Therapy recommendation(s): Continue home exercise program. RAL SUPPLY ASSISTANT Plan of Care - Kristin Doll OT - 12/01/2019 8:15 AM CST Patient plan: Home Current status: While seated/standing pt completed LE dressing including don socks with SBA and AE, and don pants with moderate assist and AE. Anticipated status at discharge: SBA-moderate A of 1 with LE dressing using AE. CGA of 1 for toileting. Assist for bathing-(has FERRY OPERATOR services);continued assist from spouse for IADL's/household tasks. Occupational Therapy Discharge Summary Reason for therapy discharge: Discharged to home. Progress towards therapy goal(s). See goals on Care Plan in [facility] electronic health record for goal details. Goals not met. Barriers to achieving goals: discharge from facility. Therapy recommendation(s): SBA-moderate A of 1 with LE dressing using AE. CGA of 1 for toileting. Assist for bathing-(has FERRY OPERATOR services);continued assist from spouse for IADL's/household tasks. RAL SUPPLY ASSISTANT Plan of Care - Dani Saenz RN - 12/01/2019 5:39 AM CST Date/Time: [id number] Trauma/Ortho/Medical (Choose one): Ortho Diagnosis: Left Total Hip Anterior POD#: 1 Mental Status: A&Ox4. Anxious Activity/dangle: A1-2 + GBW Diet: Regular + Low sodium Pain: 02/24: Oxycodone. Pain in hip and shoulders. Proctor/Voiding: [place], + voiding, + BM Tele/Restraints/Iso: NA 02/LDA: 97% RA D/C Date: 12.01.19 Other Info: Cpap @ night. Low diastolic BP RAL SUPPLY ASSISTANT Plan of Care - Driss Espinal RN - 11/30/2019 5:34 PM CST VSS. Baseline numbness BLE. Up with 1 and walker. Pain managed with oxycodone and tylenol. Dressing C/D/I. Dr. Eckert call and ok'd to discharge pt tomorrow morning by 11 am. A&OX4. RAL SUPPLY ASSISTANT Plan of Care - Karla Esparza, OT - 11/30/2019 4:45 PM CST Patient [...] a cane), has had 2 visits from FERRY OPERATOR services(comes 1X/week) to assist w/ bathing + HomePT. Pt. reports she is able to dress upper-body at baseline, does not dress lower-body, stays in [facility](otherwise FERRY OPERATOR assists). Pt. reports she is able to complete toileting, spouse is doing more of the household tasks. Pt. has a BSC, higher toilet/vanity, walk-in shower w/ shower chair. Pt. also hasreacher, sock-aide and LHSH. Currently:Pt. up in , initially stating she was not going to [...] dressing--pt. able to janell incont. pad w/ box car bracer/min. A for threading LEs, SBA for standing to pull-up;pt. needed overall min. A/use of sock-aide to janell socks--has AE at home.Pt. fatigued at end of session, needed mod. A for LE's for sit-supine.Overall, moving well, reports she is doing better. Anticipated status at discharge: CGA-min. A w/ LE dressing using AE, toileting, bathing-(has FERRY OPERATOR services);continued assist from spouse for IADL's/household tasks. RAL SUPPLY ASSISTANT Plan of Care - Cleo Hernadez, VIRI - 11/30/2019 2:23 PM CST Pt up with 1, oxycodone for pain. Voiding BSC. Pt very hesitant to discharge, MD updated. Pt passed OT. Plan to discharge after PT pending stairs. RAL SUPPLY ASSISTANT Plan of Care - Joseline Rush, PT [...] with report of L hip pain of 08/26. Pt performed sit <> stand from wheelchair [...] up in chair at end of session. RAL SUPPLY ASSISTANT Plan of Care - Eva Abraham RN - 11/30/2019 7:05 AM CST POD 1 L HERON anterior approach. A&O. VSS on home CPAP overnight. Dressing CDI, CMS intact. Proctor removed this AM, DTV. Regular diet, tolerating. Not OOB this shift. Managing pain with sched Tyl, iceand oxy PRN. Plan for PT/OT/SW. Discharge today pending. RAL SUPPLY ASSISTANT Plan of Care - Zohreh Rosa RN [...] room air but wears cpap at night. RAL SUPPLY ASSISTANT Op Note - Babar, Tomas Love MD - 11/29/2019 12:06 PM CST 11/29/2019 Vielka Igorkyle Marely Preoperative diagnosis: End-stage osteoarthritis left hip Postoperative [...] the supine position on the??Abby table.?? Preoperative automotive warranty administrator views of both hips are made. The [...] satisfactory condition. Final counts were correct. ? RAL SUPPLY ASSISTANT Brief Op Note - Tomas Eckert MD - 11/29/2019 12:04 PM CENTRAL SUPPLY ASSISTANT [facility] Brief Operative Note Pre-operative diagnosis: Osteoarthritis of [...] Implant Name Type Inv. Item Serial No. Cupola Tender Helper Lot No. LRB No. Used IMP SHELL BIOM G7 ACETAB PPS ANN HOLE 52MM ASA E [id number] Total Joint Component/Insert IMP SHELL BIOM G7 ACETAB PPS [place] 52MM SZ E [id number] [employer] [id number] Left 1 IMP SCR ZIM 6.5X30MM ACET CUP SELF TAP [id number] Metallic Hardware/[place] IMP SCR ZIM 6.5X30MM ACET CUP SELF TAP [id number] [employer] [id number] Left 1 IMP STEM FEM BIOM TAPERLOC HI OFFSET TYPE 1 [id number] Total Joint Component/Insert IMP STEM FEM BIOM TAPERLOC HI OFFSET TYPE 1 [id number] [id number] [employer] [id number] Left 1 G7 ACETABULAR LINER NEUTRAL, 36MM HEAD SIZE, E LINER SIZE BIOMET [id number] Left 1 BIOLOX DELTA HIP SYSTEM MODULAR CERAMIC HEAD, TYPE 1 TAPER, 36MM HEAD 0 STANDARD NECK BIOMET [id number] 1 RAL SUPPLY ASSISTANT documented in this encounter Plan of Treatment [...] Status post total Resu lts for this CENTRAL SUPPLY ASSISTANT replacement of left procedur e are in hip the results section. GLUCOSE BY METER Routine 12/01/2019 6:44 AM Status post total Results for this CENTRAL SUPPLY ASSISTANT replacement of left procedur e are in hip the results section. HEMOGLOBIN Routine 11/30/2019 6:54 AM Results f or this CENTRAL SUPPLY ASSISTANT procedure are i n the results section. CREATININE Routine 11/30/2019 6:54 AM Results f or this CENTRAL SUPPLY ASSISTANT procedure are i n the results section. PLATELET COUNT Routine 11/29/2019 7:25 PM Results for this CENTRAL SUPPLY ASSISTANT procedure are i n the results section. XR PELVIS AND HIP STAT 11/29/2019 1:36 PM Resu lts for this PORTABLE LEFT 1 CENTRAL SUPPLY ASSISTANT procedure ar e in VIEW the results section. XR SURGERY DAGOBERTO Routine 11/29/2019 12:05 Results for this FLUORO LESS THAN 5 PM CENTRAL SUPPLY ASSISTANT procedure are in MIN W STILLS the results section. ARTHROPLASTY, HIP, 11/29/2019 9:43 AM Osteoarthritis o f left TOTAL, DIRECT CENTRAL SUPPLY ASSISTANT hip, unspecified ANTERIOR APPROACH osteoarthritis type Special Needs MRSA-MSSA negative POTASSIUM STAT 11/29/2019 8:13 AM CENTRAL SUPPLY ASSISTANT Resul ts for this procedure are in the resu lts section. CREATININE Routine 11/29/2019 8:13 AM CENTRAL SUPPLY ASSISTANT Resul ts for this procedure are in the resu lts section. ABO/RH TYPE AND SCREEN STAT 11/29/2019 8:13 AM CENTRAL SUPPLY ASSISTANT Results for this procedure are in the resu lts section. EKG CARDIAC - HIM SCAN 11/16/2019 12:00 AM CENTRAL SUPPLY ASSISTANT LAB RESULT - HIM SCAN 11/07/2019 12:00 AM CENTRAL SUPPLY ASSISTANT documented in this encounter Results (ABNORMAL) Hemoglobin (12/01/2019 6:54 AM CENTRAL SUPPLY ASSISTANT) athologist Signature Hemoglobin 8.9 (L) 11.7 - 15.7 12/01/2019 [place] g/dL 7:08 AM CENTRAL SUPPLY ASSISTANT [facility] Specimen Anatomical Collection Method Collection Time Receive d Time (Source) Location / / Volume Laterality Blood specimen 12/01/2019 6:54 AM 020 6:55 (specimen) CENTRAL SUPPLY ASSISTANT AM CENTRAL SUPPLY ASSISTANT Yuni Kyle LAB - BLOOD ORDERABLES Performing Organization Address City/State/ZIP Code Phon e Number M [facility] [address] [address] [phone] [facility] [address] [address], [place] [phone] (ABNORMAL) Glucose by meter (12/01/2019 6:44 AM CENTRAL SUPPLY ASSISTANT) athologist Signature Glucose 137 (H) 70 - 99 12/01/2019 POINT OF CARE mg/dL 6:55 AM CENTRAL SUPPLY ASSISTANT TEST, GLUCOSE Specimen Anatomical Collection Method Collection Time Receive d Time (Source) Location / / Volume Laterality 12/01/2019 6:44 AM 0 6:55 CENTRAL SUPPLY ASSISTANT AM CENTRAL SUPPLY ASSISTANT Tomas Eckert MD LAB - BEAKER POCT Performing Organization Address City/State/ZIP Code Phon e Number [facility] POINT OF CARE TEST, GLUCOSE POINT OF CARE TEST, GLUCOSE (ABNORMAL) Creatinine (11/30/2019 6:54 AM CENTRAL SUPPLY ASSISTANT) athologist Signature Creatinine 0.99 0.52 - 1.04 11/30/2019 [place] mg/dL 7:[address] [facility] GFR Estimate 53 (L) >60 11/30/2019 [place] mL/min/{1.7 7:38 AM [facility] 3_m2} HOSPITAL Comment: Non GFR Calc Starting 11/03/2018, serum creatinine ba sed estimated GFR (eGFR) will be calculated using the Chronic Kidney Dise [facility] Epidemiology Collaboration (CKD-EPI) equation. GFR Estimate If 61 >60 mL/min/{1.73_m2} 11/30/2019 7: 38 AM [facility] Comment: GFR Calc Starting 11/03/2018, serum creatinine ba sed estimated GFR (eGFR) will be calculated using the Chronic Kidney Dise [facility] Epidemiology Collaboration (CKD-EPI) equation. Specimen Anatomical Collection Method Collection Time Receive d Time (Source) Location / / Volume Laterality Blood specimen 11/30/2019 6:54 AM 020 6:55 (specimen) CENTRAL SUPPLY ASSISTANT AM CENTRAL SUPPLY ASSISTANT Tomas Eckert MD LAB - BLOOD ORDERABLES Performing Organization Address City/State/ZIP Code Phon e Number M [facility] [address] [address] [place] [address] [address] [address], [facility] [phone] (ABNORMAL) Hemoglobin (11/30/2019 6:54 AM CENTRAL SUPPLY ASSISTANT) athologist Signature Hemoglobin 10.4 (L) 11.7 - 15.7 11/30/2019 [place] g/dL 7:[address] [facility] Specimen Anatomical Collection Method Collection Time Receive d Time (Source) Location / / Volume Laterality Blood specimen 11/30/2019 6:54 AM 020 6:55 (specimen) CENTRAL SUPPLY ASSISTANT AM CENTRAL SUPPLY ASSISTANT Yuni Kyle LAB - BLOOD ORDERABLES Performing Organization Address City/State/ZIP Code Phon e Number M [facility] [address] [address] [phone] [facility] [address] [address], [place] [phone] Platelet count (11/29/2019 7:25 PM CENTRAL SUPPLY ASSISTANT) P athologist Signature Platelet Count 230 150 - 450 11/29/2019 [place] 10e9/L 7:33 PM CENTRAL SUPPLY ASSISTANT [facility] Specimen Anatomical Collection Method Collection Time Receive d Time (Source) Location / / Volume Laterality Blood specimen 11/29/2019 7:25 PM 020 7:26 (specimen) CENTRAL SUPPLY ASSISTANT PM CENTRAL SUPPLY ASSISTANT Yuni Cottonolm LAB - BLOOD ORDERABLES Performing Organization Address City/State/ZIP Code Phon e Number Jocelyn [facility] [address] [address] [phone] [facility] [address] [place] [address], [place] [phone] XR Pelvis w Hip Port Left 1 View (11/29/2019 1:36 PM CENTRAL SUPPLY ASSISTANT) Anatomical Region Laterality Modality Abdomen/Pelvis Left Digital Radiography Specimen (Source) Anatomical Location Collection Method / Collectio n Time Received Time / Laterality Volume Impressions 11/29/2019 1:57 PM CENTRAL SUPPLY ASSISTANT IMPRESSION: Unremarkable postoperative appearance of the left hip. KASSY COLON MD Narrative 11/29/2019 1:57 PM CENTRAL SUPPLY ASSISTANT PORTABLE ONE VIEW PELVIS AND ONE VIEW LEFT HIP November 29, 2019 1:36 PM HISTORY: Postoperative evaluation of the left hip. COMPARISON: Intraoperative images steven amado. FINDINGS: There are surgical changes of a [...] of the left hip. COMPARISON: Intraoperative images steven amado. FINDINGS: There are surgical changes of a left total hip arthroplasty. The hardware is intact with no fracture or other complication seen. No other abnormality is demonstrated. IMPRESSION: Unremarkable postoperative a ppearance of the left hip. KASSY COLON MD Yuni Cottonolm [facility] ORDER HEATHER XR Surgery DAGOBERTO L/T 5 Min Fluoro w Stills (11/29/2019 12:05 PM CENTRAL SUPPLY ASSISTANT) Anatomical Region Laterality Modality Abdomen/Pelvis Radio Fluoroscopy Specimen (Source) Anatomical Location Collection Method / Collectio n Time Received Time / Laterality Volume Impressions 11/29/2019 2:24 PM CENTRAL SUPPLY ASSISTANT IMPRESSION: Three spot intraoperative radiographs demonstrate total hip arthroplasty in normal alignment. No periprosthetic fracture. Total fluoroscopic time is 0.5 minutes. ROMELIA HOANG MD Narrative 11/29/2019 2:24 PM CENTRAL SUPPLY ASSISTANT SURGERY C-ARM FLUOROSCOPY LESS THAN FIVE MINUTES [...] minutes. ROMELIA HOANG MD Tomas Eckert MD [facility] ORD ERABLES (ABNORMAL) Creatinine (11/29/2019 8:13 AM CENTRAL SUPPLY ASSISTANT) athologist Signature Creatinine 1.30 (H) 0.52 - 11/29/2019 [facility] 1.04 mg/dL 7:[address] [facility] GFR Estimate 38 (L) >60 11/29/2019 [place] mL/min/{1. 7:35 PM [facility] 73_m2} HOSPITAL Comment: Non GFR Calc Starting 11/03/2018, serum creatinine ba sed estimated GFR (eGFR) will be calculated using the Chronic Kidney Dise [place] Epidemiology Collaboration (CKD-EPI) equation. GFR Estimate If 44 (L) >60 mL/min/{1.73_m2} 11/29/2019 7: [address] [facility] [address] [facility] Comment: GFR Calc Starting 11/03/2018, serum creatinine ba sed estimated GFR (eGFR) will be calculated using the Chronic Kidney Dise [facility] Epidemiology Collaboration (CKD-EPI) equation. Specimen Anatomical Collection Method Collection Time Receive d Time (Source) Location / / Volume Laterality 11/29/2019 8:13 AM 0 8:14 CENTRAL SUPPLY ASSISTANT AM CENTRAL SUPPLY ASSISTANT Juanito Armstrong MD LAB - BLOOD ORDERABLES Performing Organization Address City/State/ZIP Code Phon e Number M [facility] [address] [place] [address] [facility] [address] [address], [place] [phone] Potassium (11/29/2019 8:13 AM CENTRAL SUPPLY ASSISTANT) P athologist Signature Potassium 4.0 3.4 - 5.3 11/29/2019 [place] mmol/L 8:[address] [facility] Specimen Anatomical Collection Method Collection Time Receive d Time (Source) Location / / Volume Laterality Blood specimen 11/29/2019 8:13 AM 020 8:14 (specimen) CENTRAL SUPPLY ASSISTANT AM CENTRAL SUPPLY ASSISTANT Juanito Armstrong MD LAB - BLOOD ORDERABLES Performing Organization Address City/State/ZIP Code Phon e Number [facility] [address] [place] [place] [place] [phone] [facility] [address] [address], [place] [phone] ABO/Rh type and screen (11/29/2019 8:13 AM CENTRAL SUPPLY ASSISTANT) Patholo gist Method Time Signature ABO A 11/29/2019 [place] 9:[address] [facility] RH(D) Neg [facility] Antibody Neg 11/29/2019 [place] Screen 9:[address] [facility] Test Valid [place] 11/29/2019 [facility] Only At [facility] 8:34 AM [facility] Specimen 12/02/2019 11/29/2019 [place] Expires 8:[address] [facility] Specimen Anatomical Collection Method Collection Time Receive d Time (Source) Location / / Volume Laterality Blood specimen 11/29/2019 8:13 AM 020 8:14 (specimen) CENTRAL SUPPLY ASSISTANT AM CENTRAL SUPPLY ASSISTANT Juanito Armstrong MD LAB - BLOOD BANK TEST ORDER Performing Organization Address City/State/ZIP Code Phon e Number M [facility] [address] [address] [facility] [address] [place] [address], [place] [phone] EKG CARDIAC - HIM SCAN (11/16/2019 12:00 AM CENTRAL SUPPLY ASSISTANT) Specimen (Source) Anatomical Location Collection Method / Collectio n Time Received Time / Laterality Volume 11/16/2019 Narrative This result has an attachment that is no t available. Provider Outside ECG ORDERABLES LAB RESULT - HIM SCAN (11/07/2019 12:00 AM CENTRAL SUPPLY ASSISTANT) Specimen (Source) Anatomical Location Collection Method / Collectio n Time Received Time / Laterality Volume 11/07/2019 Narrative This result has an attachment that is no t available. Provider Outside NON-BEAKER LAB TESTING documented in this encounter Visit Diagnoses Diagnosis Status post total replacement of left hi p - Primary Osteoarthritis of left hip, unspecified osteoarthritis type documented in this encounter Administered Medications Inactive Administered Medications - up to 3 most recent administrations Medication Order MAR Action Action Date Dose Rate Site acetaminophen (TYLENOL) tablet 975 Given 12/01/2019 6:19 AM CENTRAL SUPPLY ASSISTANT 975 mg mg 975 mg, Oral, EVERY 8 HOURS, First dose on Fri11/29/19 at 2200, For 3 days, Administer for multimodal surgical pain management. Maximum acetaminophen dose from all sources = 75 mg/kg/day not to exceed 4 grams/day., Post-procedure Given 11/30/2019 9:10 PM CENTRAL SUPPLY ASSISTANT 975 mg Given 11/30/2019 1:51 PM CENTRAL SUPPLY ASSISTANT 975 mg bupivacaine 0.5% - Given 11/29/2019 12:03 PM 45 mLs Operative Site/Surgical EPINEPHrine 1:200,000 (PF) CENTRAL SUPPLY ASSISTANT Site injection PRN, Starting on Fri11/29/19 at 1203, Intra-procedure buPROPion (WELLBUTRIN XL) 24 hr tablet 3 00 mg Given 12/01/2019 8:50 AM CENTRAL SUPPLY ASSISTANT 300 mg 300 mg, Oral, EVERY MORNING, First dose on Fri11/30/19 at 0900, DO NOT CRUSH. Given 11/30/2019 8:21 AM CENTRAL SUPPLY ASSISTANT 300 mg ceFAZolin 1000 mg + Given 11/29/2019 11:07 AM 1,000 mLs Operative gentamicin 120 mg + NaCl CENTRAL SUPPLY ASSISTANT Site/Surgical Site 0.9% 1000 mL Bag PRN, Starting on 11/29/19 at 1107, Intra-procedure celecoxib (celeBREX) capsule 200 mg Given 12/01/2019 8:51 AM CENTRAL SUPPLY ASSISTANT 200 mg 200 mg, Oral, DAILY, First dose on Fri11/30/19 at 0900 Given 11/30/2019 8:21 AM CENTRAL SUPPLY ASSISTANT 200 mg enoxaparin ANTICOAGULANT (LOVENOX) injection Given 0 8:48 AM CENTRAL SUPPLY ASSISTANT 40 mg 40 mg 40 mg, Subcutaneous, [...] notify provider., Post-procedure Given 11/30/2019 8:22 AM CENTRAL SUPPLY ASSISTANT 40 mg levothyroxine (SYNTHROID/LEVOTHROID) tablet Given 12/01/2019 6:19 AM CENTRAL SUPPLY ASSISTANT 25 mcg 25 mcg 25 mcg, Oral, DAILY, First dose on Fri11/30/19 at 0700, Separate oral administration of iron- or calcium-containing products and levothyroxine by at least 4 hours. Given 11/30/2019 6:55 AM CENTRAL SUPPLY ASSISTANT 25 mcg Lidocaine (LIDOCARE) Patch/Med Applied 12/01/2019 8:03 AM 1 patch Other (see 4 % Patch 1 patch CENTRAL SUPPLY ASSISTANT comments) 1 patch, Transdermal, EVERY 24 HOURS [...] post injection. Patch/Med Applied 11/30/2019 12:04 PM CENTRAL SUPPLY ASSISTANT 1 patch Other (see comments) lidocaine patch [...] 96 hours. lisinopril-hydrochlorothiazide Given 12/01/2019 8:50 AM CENTRAL SUPPLY ASSISTANT 1 ta blet (PRINZIDE/ZESTORETIC) 20-12.5 MG per tablet 1 tablet 1 tablet, Oral, DAILY, First dose on Fri11/29/19 at 1815, Hold if systolic is less than 100, or diastolic is less than 70. Given 11/30/2019 8:21 AM CENTRAL SUPPLY ASSISTANT 1 tablet Given 11/29/2019 10:12 PM CENTRAL SUPPLY ASSISTANT 1 tablet metoclopramide (REGLAN) injection 5 mg [...] tablet 10 mg Given 12/01/2019 8:50 AM CENTRAL SUPPLY ASSISTANT 10 mg 10 mg, Oral, DAILY, First dose on Fri11/29/19 at 1815, DO NOT CRUSH. Given 11/30/2019 8:21 AM CENTRAL SUPPLY ASSISTANT 10 mg Given 11/29/2019 10:12 PM CENTRAL SUPPLY ASSISTANT 10 mg oxyCODONE (ROXICODONE) tablet 5-10 mg Given 12/01/2019 6:19 AM CENTRAL SUPPLY ASSISTANT 5 mg 5-10 mg, Oral, EVERY 3 [...] 24 hours., Post-procedure Given 12/01/2019 2:54 AM CENTRAL SUPPLY ASSISTANT 5 mg Given 11/30/2019 9:10 PM CENTRAL SUPPLY ASSISTANT 5 mg prochlorperazine (COMPAZINE) injection 5 mg [...] loose stools., Post-procedure Given 11/30/2019 8:34 PM CENTRAL SUPPLY ASSISTANT 2 tablets Given 11/30/2019 8:21 AM CENTRAL SUPPLY ASSISTANT 2 tablets simvastatin (ZOCOR) tablet 10 mg Given 11/30/2019 9:10 PM CENTRAL SUPPLY ASSISTANT 10 mg 10 mg, Oral, AT BEDTIME, First dose on Fri11/29/19 at 2200 Given 11/29/2019 10:13 PM CENTRAL SUPPLY ASSISTANT 10 mg sodium chloride (PF) 0.9% PF flush 3 mL Given 11/30/2019 9:51 PM CENTRAL SUPPLY ASSISTANT 3 mLs 3 mL, Intracatheter, EVERY 8 HOURS, First dose on Fri11/29/19 at 2200, And Q1H PRN, to lock peripheral IV dormant line., Post-procedure Given 11/30/2019 8:22 AM CENTRAL SUPPLY ASSISTANT 3 mLs sodium chloride 0.9% Given 11/29/2019 11:07 AM 500 mLs Operative Site/Surgical (bottle) irrigation CENTRAL SUPPLY ASSISTANT Site PRN, Starting on Fri11/29/19 at 1107, Intra-procedure sodium chloride 0.9% infusion New Bag 11/29/2019 10:12 PM CENTRAL SUPPLY ASSISTANT 125 mL/hr at 125 mL/hr, Intravenous, CONTINUOUS, Change to saline lock when PO well tolerated., Post-procedure, Starting on Fri11/29/19 at 1815, Until Fri12/01/19 at 1245 documented in this encounter Active and Recently Administered Medications Times are shown in CENTRAL SUPPLY ASSISTANT. Scheduled Medication Order 11/29/2019 11/30/2019 12/01/2019 acetaminophen [...] Espinal RN) 0619 (Given - Provider: Dani Saenz RN) 975 mg, Oral, EVERY 8 HOURS, First dose on Fri11/29/19 at 2200, For 3 days, Administer for multimodal surgical pain management. Maximum acetaminophen dose from all sources = 75 mg/kg/day not to exceed 4 grams/day., Post-procedure 2109 (Given - Provider: Dani Saenz RN) buPROPion (WELLBUTRIN XL) 24 hr tablet 300 mg 0821 (Given - Provider: Cleo Hernadez RN) 0850 (Given - Provider: Erika genao RN) 300 mg, Oral, EVERY MORNING, First dose on Fri11/30/19 at 0900, DO NOT CRUSH. ceFAZolin (ANCEF) intermittent infusion 2 g in 100 mL dextrose PRE-MIX (COMPLETED) 0859 (Handoff - Provider: Marybeth genao RN)1004 (Given - Provider: Rachel Holloway APRN PETS AND PET SUPPLIES SALESPERSON)1204 (Given - Provider: Rachel Hall APRN CRNA) Routine, 2 g, Intravenous, PRE-OP/PRE-CT OCEDURE, Starting Fri11/29/19 at 0800, For 1 dose, Give first dose within 1 hour PRIOR to incision. If patient weight is greater than or equal to 120 kg increase dose to 3 g., Indications: Perioperative Pharmacoprophylaxis, Pr e-procedure ceFAZolin (ANCEF) intermittent infusion 2 g in 100 mL dextrose PRE-MIX (COMPLETED) 2039 (Given - Provider: Zohreh Rosa RN) 045 (Gi екатерина - Provider: Eva Abraham RN) [...] Abraham RN) 0619 (Given - Provider: Dani Saenz RN ) 25 mcg, Oral, DAILY, First dose on Fri at 0700, Separate oral administration of iron- or calcium-containing products and levothyroxine by at least 4 hours. Lidocaine (LIDOCARE) 4 % Patch 1 patch 1 (Patch/Med Applied - Provider: Cleo Hernadez RN [...] RN)2151 (Patch in Place - Provider: Dani Saenz RN) 0625 (Patch Free Period - Provider: Dani [...] /ZESTORETIC) 20-12.5 MG per tablet 1 tablet 2211 (Given - Provider: Zohreh Rosa RN) 0821 [...] on Fri11/29/19 at 1815, DO NOT CR [facility]. polyethylene glycol (MIRALAX/GLYCOLAX) Packet 17 g 204 [...] 2212 (Given - Provider: Zohreh Rosa RN) 08 (Given - Provider: Cleo Hernadez RN)2033 (Given [...] chloride (PF) 0.9% PF flush 3 mL 2151 (Not Give n - Provider: Zohreh Rosa RN - Reason: IV Infusing) 0600 (Not Given - Provider: Eva delacruz RN - Reason: IV Infusing)0822 (Given - Provider: Cleo Hernadez RN)1400 (Canceled Entry - Provider: Cleo Hernadez RN)215 (Given - Provider: Dani Saenz, VIRI) 0625 (Not Given - Provider: Dani Saenz [...] 1404 (New Bag - P rovider: Eli Bang RN) at 100 mL/hr, Intravenous, CONTINUOUS, C [...] mg, Oral, DAILY PRN, heart burn, Starting 11/29/19 at 1813 fentaNYL (PF) (SUBLIMAZE) injection 25-50 [...] analgesic side effects. Hold while on IV FERRY OPERATOR or with regular IV opioid dosing. For ordered IV doses 0.1-4 mg give IV Push undiluted. Administer each 2mg over 2-5 minutes. HYDROmorphone (PF) (DILAUDID) injection 0.3-0.5 mg (CA NCELED) 1407 (Given - Provider: Eli Bang RN)1506 (Given - Provider: Eli Bang RN) 0.3-0.5 mg, Intravenous, EVERY 5 MIN PRN , Starting Fri11/29/19 at 1237, Until Fri11/29/19 at 181, other, acute pain. ??May administer if Respiratory [...] Administer over 12 Hours, Starting Fri11/29/19 at 1813, Apply patch(s) to affected area. To prevent [...] or accessing implanted port., Starting Fri11/29/19 at 1813, Do NOT give if patient has a [...] pain with VAD insertion., Starting Fri11/29/19 at 1813, Do NOT give if patient has a history of allergy to any local anesthetic or any jareth product. MAX dose 1 mL subcutaneous OR intradermal in divid ed doses as needed for VAD insertion., Post-procedure methocarbamol (ROBAXIN) tablet 500 mg 500 mg, Oral, 4 TIMES DAILY PRN, muscle spasms, Starting Fri11/29/19 at 1813, Hold for sedation., Post-procedure metoclopramide (REGLAN) injection 5 mg(Linked Group 1) 5 mg, Intravenous, Administer over 2 Min utes, EVERY 6 HOURS PRN, Starting Fri11/29/19 at 1813, nausea, vomiting, This is Step [...] mg, Oral, EVERY 6 HOURS PRN, Starting Fri11/29/19 at 1813, nausea, vomiting, This is Step [...] RN) 0821 (Given - Provider: Cleo Hernadez RN)1205 (Given - Provider: Cleo Hernadez RN)1527 (Given - Provider: Driss Espinal RN)1822 (Given - Provider: Driss Espinal RN)2110 (Given - Provider: Dani Saenz RN) 0254 (Given - Provider: Dani Saenz RN)0619 (Given - Provider: Dani Saenz RN) 5-10 mg, Oral, EVERY 3 HOURS PRN, [...] usea, vomiting, Administer over 1-2 Minutes, Starting Fri11/29/19 at 1813, This is Step 2 [...] Starting Fri11/29/19 at 1813, This is Step 2 [...] - Provider: Tomas Eckert MD) PRN, Starting Fri11/29/19 at 1107, Intra-procedure Linked Groups Order Group [...]
Post-procedure documented in this encounter Care Teams Fish Hatchery Inspector Relationship Specialty Start Date End Date Diane Alejandra PCP - General Internal Medicine 10/17/17 [place] [address] documented as of this encounter
--- OUTSIDE RECORDS SUMMARY | 2022-10-07 10:48 | XMS_ITS | Encounter Summary ---
:1935 Author Organization [facility] Address [address] [place] [address]. [place] [address] Care Team Providers Name Role Phone Diane Alejandra Primary Care Provider Encounter Details Date Type Department Care Team Description 11/22/2019 Hospital Encounter [facility] Babar, Pre- operative [facility] Tomas Love, laboratory [address] [place] [address] [facility] [phone] [place] [id number] Social History Tobacco Use Types Packs/Day Years Used Date Smoking Tobacco: Never Alcohol Use Standard Drinks/Week Comments Yes 0 (1 standard drink = 0.6 oz pure alcoho l) SELDOM Sex Assigned at Date Recorded Not on file documented as of this encounter Medications at [...] Status post total replacement of left hip CALCARB 600 1500 MG OR 1 tablet daily 0 8 11/29/2019 TABS CO Q10 100 MG OR TABS 150mg tablet 0 0 11/29/2019 COLLAGEN PO Take 1 Dose by mouth 0 daily CYMBALTA 60 MG OR 1 CAPSULE DAILY 90 3 09/15/2009 CPEPIndications: Depressive disorder, not elsewhere classified DOCUSATE SODIUM 100 MG 1 CAPSULES DAILY 0 11/29/2019 OR CAPS LASIX 20 MG OR TWO TABLETS TWICE 3 MONTHS 3 09/15/2009 TABSIndications: Edema DAILY multivitamin, Take 1 tablet by 0 11/29 therapeutic (THERA-VIT) mouth daily TABS tablet NATRUL-VITES OR TABS 1 TABLET DAILY 0 11/29/2019 NEXIUM 40 MG OR 1 CAPSULE DAILY 90 3 09/15/200911/17 CPDRIndications: Esophageal reflux oxyCODONE IR Take 1 tablet (5 mg) 20 tablet 0 10/17/2017 (ROXICODONE) 5 MG by mouth every 6 tablet hours as needed for pain POTASSIUM CHLORIDE CR TWO TABLETS DAILY 3 MONTHS 3 009 11/29/2019 20 MEQ OR TBCRIndications: Edema VOLTAREN 75 MG OR 1 daily 90 3 09/15/2009 020 TBECIndications: Primary localized osteoarthrosis, lower leg WOMENS DAILY 1 TABLET DAILY 0 11/29/19 20 MULTIVITAMIN OR TABS documented as of this encounter Plan of Treatment Not on filedocumented as of this encounter Procedures Procedure Name Priority Date/Time Associated Diagnosis Comme nts MRSA MSSA PCR, Routine 11/22/2019 9:00 AM Pre-operative Result s for this NASAL SWAB FLOWER GRADER laboratory procedure are i n examination the results section. documented in this encounter Results Methicillin Resist/Sens S. aureus PCR (11/22/2019 9:00 AM FLOWER GRADER) [facility] Method Time Signature Specimen Nares 11/22/2019 [place] Description 3:59 PM FLOWER GR[facility]ER [facility] Methicillin Negative NEG^Negat 11/22/2019 [facility] Resist/Sens S. lilia 11:25 PM [facility] MEDICAL aureus PCR [facility] Comment: MRSA Negative: SA Negative ??MRSA and St aphylococcus aureus target DNA not detected, presumed negative for MRSA and SA colonization or the number of bacteria present may be below the limit of detection for the assay. FDA approved assay performed using [employer] eneXpert(R) real-time PCR. Specimen (Source) Anatomical Collection Method Collection Time Re ceived Time Location / / Volume Laterality Nasal structure 11/22/2019 9:00 0 4:01 (body structure) AM FLOWER GRADER PM FLOWER GRAD[facility] Tomas Eckert MD LAB - MICRO GENERAL ORDERA BLES Performing Organization Address City/State/ZIP Code Phon e Number [facility] [address] [place] [address] [facility] [address] [address], [place] [phone] documented in this encounter Visit Diagnoses Diagnosis Pre-operative laboratory examination Pre-procedural laboratory examination documented in this encounter Care Teams Living Coach Relationship Specialty Start Date End Date Diane Alejandra PCP - General Internal Medicine 10/17/17 [facility] [address] [place] [address] documented as of this encounter
--- OUTSIDE RECORDS SUMMARY | 2022-10-07 10:48 | XMS_ITS | Encounter Summary ---
:1935 Author Organization [facility] Address [address] [place] [address] Care Team Providers Name Role Phone Nader Garibay MD Primary Care Provider Encounter Details Date Type Department Care Team Description 02/22/2016 Radiant Appointment [facility] Tomas Eckert [place] Edwar Love MD [address] ORTHOPEDICS [phone] [place] [address] [place], [place] [id number] Social History Tobacco Use Types Packs/Day Years Used Date Smoking Tobacco: Never Alcohol Use Standard Drinks/Week Comments Yes 0 (1 standard drink = 0.6 oz pure alcoho l) SELDOM Sex Assigned at Date Recorded Not on file documented as of this encounter Plan of Treatment Not on filedocumented as of this encounter Procedures Procedure Name Priority Date/Time Associated Diagnosis Comme nts XR HIP RIGHT 2-3 Routine 02/22/2016 3:33 PM Pain Resul ts for this VIEWS CDT procedure are i n the results section. documented in this encounter Results XR Hip Right 2-3 Views (02/22/2016 3:33 PM CDT) Specimen (Source) Anatomical Location Collection Method / Collectio n Time Received Time / Laterality Volume Impressions Esthela Gomez O - 02/22/2016 3:33 PM CDT exam was marked as non-reportable because it will not be read by a radiologist or a [facility] non-radiologis t provider. Narrative Esthela Gomez - 02/22/2016 3:33 PM CDT This Tomas Eckert MD IMG DIAGNOSTIC IMAGING ORD ERABLES documented in this encounter Visit Diagnoses Diagnosis Pain Generalized pain documented in this encounter Care Teams Chain Hoist Operator Relationship Specialty Start Date End Date Nader Garibay MD PCP - General 01/01/02 10/16/17 documented as of this encounter
--- OUTSIDE RECORDS SUMMARY | 2022-10-07 10:48 | XMS_ITS | Encounter Summary ---
:1935 Author Organization [facility] Address [address] [place] [address] Care Team Providers Name Role Phone Nader Garibay MD Primary Care Provider Reason for Visit Reason Onset Date Comments Refill Request 03/20/2009 Encounter Details Date Type Department Care Team Description 03/20/2009 Refill [facility] Nader Garibay MD Refill Request [address] [address] [place] [address] [phone] Social History Tobacco Use Types Packs/Day Years Used Date Smoking Tobacco: Never Alcohol Use Standard Drinks/Week Comments Yes 0 (1 standard drink = 0.6 oz pure alcoho l) SELDOM Sex Assigned at Date Recorded Not on file documented as of this encounter Miscellaneous Notes Telephone Encounter - Abel Chase - 03/20/2009 3:26 PM CDT Last OV 03/24, Refill routed to PCP for approval. Stevie Chase RN documented in this encounter Plan of Treatment Not on filedocumented as of this encounter Visit Diagnoses Diagnosis Edema documented in this encounter Care Teams Steaming Cabinet Tender Relationship Specialty Start Date End Date Nader Garibay MD PCP - General 01/01/02 10/16/17 documented as of this encounter
--- OUTSIDE RECORDS SUMMARY | 2022-10-07 10:48 | XMS_ITS | Encounter Summary ---
:1935 Author Organization [facility] Address [address] [place] [address]. [place] [address] Care Team Providers Name Role Phone Nader Garibay MD Primary Care Provider Reason for Referral Office Workup No CT/MRI (Routine) - Closed Specialty Diagnoses / Procedures Referred By Contact Refer red To Contact Diagnoses Stress incontinence Nader Garibay MD [facility] [address] [place], [place] [address] [address] [place] [address] Phone: Fax: Referral ID Status Reason Start Date Expiration Date Visits Requ ested Visits Authorized [id number] Closed 09/15/2009 11/16/2011 1 1 Reason for Visit Reason Comments Recheck Medication follow up on medications for refills Finger right finger has had for 6 m [facility] Bladder Problems issues with bladder control Perspiration perspiration issues Encounter Details Date Type Department Care Team Description 09/15/[address] [facility] Nader Garibay Mixed Hyp erlipidemia (Primary Dx); Clinic Tiny Crabtree MD Stress Incontinence; [place] [address] Screening for Condition; [address] [facility] [facility] [address] Primary Localized Osteoarthrosis, Lower Leg; [place], [place] Esophagea l Reflux; [phone] Edema; [phone] DEPRESSIVE DISO RDER NEC (Work) Social History Tobacco Use Types Packs/Day Years Used Date Smoking Tobacco: Never Alcohol Use Standard Drinks/Week Comments Yes 0 (1 standard drink = 0.6 oz pure alcoho l) SELDOM Sex Assigned at Date Recorded Not on file documented as of this encounter Last Filed Vital Signs Vital Sign Reading Time Taken Comments Blood Pressure 140/68 09/15/2009 11:48 AM CDT Pulse 72 09/15/2009 11:48 AM CDT Temperature - - Respiratory Rate - - Oxygen Saturation - - Inhaled Oxygen Concentration - - Weight 111.1 kg (245 lb) 09/15/2009 11:48 AM CDT Height 165.1 cm (5' 5) 09/15/2009 11:48 AM CDT Body Mass Index 40.77 09/15/2009 11:48 AM CDT documented in this encounter Progress Notes Nader Garibay - 09/24/2009 3:16 PM CST HPI: Vielka Yap is a 73 year old female who presents for follow-up, discussion of below: STRESS INCONTINENCE Problem for last several months, will predictably leak when straining, laughing or coughing. No obvious urgency, usually will not even feel leakage prior to it ocurring. WATER RETENTION Continues to insist on daily Lasix to prevent water retention - her edema is predictably worse in PM, better in AM after awaking. Needs refills of medicaitons, as outlined below. SWEATING Excessive generalized sweating, which has been a long-standing problem for her. Past medical, family, and social histories updated as appropriate. Current outpatient prescriptions prior to encounter: WOMENS DAILY MULTIVITAMIN OR TABS 1 TABLET DAILY DOCUSATE SODIUM 100 MG OR CAPS 1 CAPSULES DAILY CALCARB 600 1500 MG OR TABS 1 tablet daily SENNA 187 MG OR TABS daily as needed ROS: C: NEGATIVE for fever, chills, change in weight INTEGUMENTARY/SKIN: as above E/M: NEGATIVE for ear, mouth and throat [...] E: NEGATIVE for temperature intolerance, skin/hair changes H: NEGATIVE for bleeding problems EXAM: Filed Vitals: 09/15/2009 11:48 AM BP: 140/68 Pulse: 72 Height: 5' 5 (1.651 m) Weight: 245 lb (111.131 kg) GENERAL APPEARANCE: healthy, alert and no distress [...] or masses and bowel sounds normal Assessment: 272.2 Mixed Hyperlipidemia (primary encounter diagnosis) Comment: Plan: A.M.A. LIPID PANEL, A.M.A. COMPREHENSIVE MET.PANEL 625.6M Stress Incontinence Comment: Plan: CONSULT UROLOGY V82.9E Screening for Condition Comment: Plan: TSH W/FREE T4 REFLEX 715.16 Primary Localized Osteoarthrosis, Lower Leg Comment: Plan: VOLTAREN 75 MG OR TBEC 530.81 Esophageal Reflux Comment: Plan: NEXIUM 40 MG OR CPDR 782.3 Edema Comment: Plan: LASIX 20 MG OR TABS, POTASSIUM CHLORIDE CR 20 MEQ OR TBCR 311 DEPRESSIVE DISORDER NEC Comment: Plan: CYMBALTA 60 MG OR CPEP Spent greater than 25 minutes with the patient on the above issues. Nader Garibay MD CIATE MANAGER AFFILIATE MARKETING documented in this encounter Nursing Notes 09/15/2009 11:45 AM CDT >> DEBBIE ADLER FriSep 15, 2009 11:56 AM Patient presents with: Recheck Medication - follow up on medications for refills Finger - right finger has had for 6 months Bladder Problems - issues with bladder control Perspiration - perspiration issues Initial BP 140/68 Pulse 72 Ht 5' 5 (1.651 m) Wt 245 lb (111.131 kg) LMP Postmenopausal Bodymass index is 40.77 kg/(m^2).. BP completed using cuff size: ortega Adler LPN documented in this encounter Plan of Treatment Not on filedocumented as of this encounter Procedures Procedure Name Priority Date/Time Associated Diagnosis Comme nts HCL COMPREHENSIVE Routine 09/15/2009 12:25 Mixed Hyperlipidemi a Results for this METABOLIC PANEL PM CDT procedure ar e in the results section. HCL TSH W/FREE T4 Routine 09/15/2009 12:25 Screening for Resul ts for this REFLEX PM CDT Condition procedure are i n the results section. CL AFF A.M.A. LIPID Routine 09/15/2009 12:25 Mixed Hyperlipide kashif Results for this PANEL PM CDT procedure are i n the results section. documented in this encounter Results TSH W/FREE T4 REFLEX (09/15/2009 12:25 PM CDT) athologist Signature TSH 4.59 0.4 - 5.0 [place] [facility] Specimen Anatomical Collection Method Collection Time Receive d Time (Source) Location / / Volume Laterality 09/15/2009 12:25 09/15/2009 PM CDT 12:30 PM CDT Nader Garibay MD LABORATORY Performing Organization Address City/State/ZIP Code Phon e Number [facility] [address] [place] [address] [facility] (ABNORMAL) A.M.A. COMPREHENSIVE MET.PANEL (09/15/2009 12:25 PM CDT) athologist Signature Sodium 142 133 - 144 [place] mmol/L [facility] Potassium 3.9 3.4 - 5.3 [place] mmol/L [facility] Chloride 104 94 - 109 [place] mmol/L [facility] Carbon Dioxide 30 20 - 32 [place] mmol/L [facility] Anion Gap 7 6 - 17 [place] mmol/L [facility] Glucose 103 (H) 60 - 99 [place] mg/dL [facility] Urea Nitrogen 20 7 - 30 [place] mg/dL [facility] Creatinine 0.99 0.52 - [place] 1.04 mg/dL [facility] Comment: New IDMS-traceable calibration beginning 03/17/08 GFR Estimate 55 (L) >60 mL/min/1.7m2 [place] [facility] GFR Estimate If Black 67 >60 mL/min/1.7m2 F [facility] Calcium 9.5 8.5 - 10.4 mg/dL [facility] Bilirubin Total 0.5 0.2 - 1.3 mg/dL [facility] Albumin 4.3 3.3 - 4.9 g/dL [facility] Protein Total 7.2 6.8 - 8.8 g/dL [facility] Alkaline Phosphatase 86 40 - 150 U/L [facility] EW [facility] ALT 55 (H) 0 - 50 U/L [facility] LAB AST 46 (H) 0 - 45 U/L [facility] LAB Specimen Anatomical Collection Method Collection Time Receive d Time (Source) Location / / Volume Laterality 09/15/2009 12:25 09/15/2009 PM CDT 12:30 PM CDT Nader Garibay MD LABORATORY Performing Organization Address City/State/ZIP Code Phon e Number [facility] [address] [place] [address] [facility] (ABNORMAL) A.M.A. LIPID PANEL (09/15/2009 12:25 PM CDT) P athologist Signature Cholesterol 197 0 - 200 [place] mg/dL [facility] Comment: LDL Cholesterol is the primary guide to therapy: LDL-cholesterol goal in high risk patients is <100 mg/dL and in very high risk patients is <70 mg/dL. The NCEP recommends further evaluation of: patients with cholesterol <200 mg/dL if additional risk factors are present, cholesterol >240 mg/dL, triglycerides >150 mg/dL, or HDL <40 mg/dL. Triglycerides 150 0 - 150 mg/dL [facility] HDL Cholesterol 45 (L) 50 - 110 mg/dL [facility] LDL Cholesterol Calculated 122 0 - 129 mg/dL [facility] VLDL-Cholesterol 30 0 - 30 mg/dL [facility] Cholesterol/HDL Ratio 4.4 0.0 - 5.0 [facility] Specimen Anatomical Collection Method Collection Time Receive d Time (Source) Location / / Volume Laterality 09/15/2009 12:25 09/15/2009 PM CDT 12:30 PM CDT Nader Garibay MD LABORATORY Performing Organization Address City/State/ZIP Code Phon e Number [facility] [address] [place] [address] [facility] documented in this encounter Visit Diagnoses Diagnosis Mixed hyperlipidemia - Primary Stress incontinence Female stress incontinence Screening for condition Screening for unspecified condition Primary localized osteoarthrosis, lower leg Esophageal reflux Edema DEPRESSIVE DISORDER NEC Depressive disorder, not elsewhere class ified documented in this encounter Care Teams Software Requirements Engineer Relationship Specialty Start Date End Date Nader Garibay MD PCP - General 01/01/02 10/16/17 documented as of this encounter
--- OUTSIDE RECORDS SUMMARY | 2022-10-07 10:48 | XMS_ITS | Encounter Summary ---
:1935 Author Organization [facility] Address [address] [place] [address] Care Team Providers Name Role Phone Nader Garibay MD Primary Care Provider Reason for Visit Reason Onset Date Comments Refill Request 08/03/2009 Encounter Details Date Type Department Care Team Description 08/03/2009 Refill [facility] Nader Garibay MD Refill Request [address] [address] [place], [place] [address] [phone] Social History Tobacco Use Types Packs/Day Years Used Date Smoking Tobacco: Never Alcohol Use Standard Drinks/Week Comments Yes 0 (1 standard drink = 0.6 oz pure alcoho l) SELDOM Sex Assigned at Date Recorded Not on file documented as of this encounter Miscellaneous Notes Telephone Encounter - Renee Barraza - 08/04/2009 10:39 AM CDT Last potassium 03/2008 documented in this encounter Plan of Treatment Not on filedocumented as of this encounter Visit Diagnoses Diagnosis Edema documented in this encounter Care Teams Ground Transportation Operator Relationship Specialty Start Date End Date Nader Garibay MD PCP - General 01/01/02 10/16/17 documented as of this encounter
--- OUTSIDE RECORDS SUMMARY | 2022-10-07 10:48 | XMS_ITS | Encounter Summary ---
:1935 Author Organization [facility] Address [address] [place] [address] Care Team Providers Name Role Phone Nader Garibay MD Primary Care Provider Reason for Visit Reason Onset Date Comments Results 09/21/2009 Encounter Details Date Type Department Care Team Description 09/21/2009 Telephone [facility] Nader Garibay MD Results [address] [address] [place] [address] [phone] Social History Tobacco Use Types Packs/Day Years Used Date Smoking Tobacco: Never Alcohol Use Standard Drinks/Week Comments Yes 0 (1 standard drink = 0.6 oz pure alcoho l) SELDOM Sex Assigned at Date Recorded Not on file documented as of this encounter Miscellaneous Notes Telephone Encounter - Abel Chase - 09/22/2009 2:05 PM CST Pt advised. INTERN Telephone Encounter - Nader Garibay - 09/22/2009 1:56 PM CST Her labs looked OK - letter with more information will be forthcoming. INTERN Telephone Encounter - Kate Jean - 09/21/2009 10:30 AM CST Pt called for results of recent labs. Fred Jean RN INTERN documented in this encounter Plan of Treatment Not on filedocumented as of this encounter Visit Diagnoses Not on filedocumented in this encounter Care Teams Fish Farm Manager Relationship Specialty Start Date End Date Nader Garibay MD PCP - General 01/01/02 10/16/17 documented as of this encounter
--- OUTSIDE RECORDS SUMMARY | 2022-10-07 10:48 | XMS_ITS | Encounter Summary ---
:1935 Author Organization [facility] Address [address] [place] [address] Care Team Providers Name Role Phone Nader Garibay MD Primary Care Provider Reason for Visit Reason Onset Date Comments Refill Request 06/22/2009 Encounter Details Date Type Department Care Team Description 06/22/2009 Refill [facility] Nader Garibay MD Refill Request [address] [address] [place] [phone] Social History Tobacco Use Types Packs/Day Years Used Date Smoking Tobacco: Never Alcohol Use Standard Drinks/Week Comments Yes 0 (1 standard drink = 0.6 oz pure alcoho l) SELDOM Sex Assigned at Date Recorded Not on file documented as of this encounter Miscellaneous Notes Telephone Encounter - Abel Chase - 06/23/2009 11:06 AM CDT Last OV 03/25 but last potassium over a year ago. Refill routed to PCP for approval. Stevie Chase RN documented in this encounter Plan of Treatment Not on filedocumented as of this encounter Visit Diagnoses Diagnosis Edema documented in this encounter Care Teams Csw Relationship Specialty Start Date End Date Nader Garibay MD PCP - General 01/01/02 10/16/17 documented as of this encounter
--- OUTSIDE RECORDS SUMMARY | 2022-10-07 10:48 | XMS_ITS | Encounter Summary ---
:1935 Author Organization [facility] Address [address] [place] [address] Care Team Providers Name Role Phone Nader Garibay MD Primary Care Provider Reason for Visit Reason Onset Date Comments Refill Request 12/30/2008 Encounter Details Date Type Department Care Team Description 12/30/2008 Refill [facility] Nader Garibay MD Refill Request [address] [address] [place] [phone] Social History Tobacco Use Types Packs/Day Years Used Date Smoking Tobacco: Never Alcohol Use Standard Drinks/Week Comments Yes 0 (1 standard drink = 0.6 oz pure alcoho l) SELDOM Sex Assigned at Date Recorded Not on file documented as of this encounter Miscellaneous Notes Telephone Encounter - Jeffy Cannon - 12/30/2008 3:08 PM CST No renal function/potassium since 03/24 and not future labs ordered. Hold for PMD NO SUPERVISOR Telephone Encounter - Abel Chase - 12/30/2008 2:59 PM CST Pt was due for OV 09/24, nurse can only give a 1 month refill, pt requesting 3 months. Refill routedto PCP for approval. Stevie Chase RN NO SUPERVISOR documented in this encounter Plan of Treatment Not on filedocumented as of this encounter Visit Diagnoses Diagnosis Edema documented in this encounter Care Teams Commercial Journeyman Electrician Relationship Specialty Start Date End Date Nader Garibay MD PCP - General 01/01/02 10/16/17 documented as of this encounter
--- OUTSIDE RECORDS SUMMARY | 2022-10-07 10:48 | XMS_ITS | Encounter Summary ---
:1935 Author Organization [facility] Address [address] [place] [address] Care Team Providers Name Role Phone Nader Garibay MD Primary Care Provider Encounter Details Date Type Department Care Team Description 08/16/2009 Abstract [facility] Nader Garibay Ty ler, INFLUENZA VACCINE [place] Edwar HERNANDEZ [address] [phone] [place], [place] [phone] (Wo rk) Social History Tobacco Use Types [...] on filedocumented in this encounter Care Teams Braided Band Assembler Relationship Specialty Start Date End Date Nader Garibay MD PCP - General 01/01/02 10/16/17 documented as of this encounter
--- OUTSIDE RECORDS SUMMARY | 2022-10-07 10:49 | XMS_ITS | Encounter Summary ---
:1935 Author Organization [facility] Address [address] [place] [address]. [place] [address] Care Team Providers Name Role Phone Nader Garibay MD Primary Care Provider Reason for Visit Reason Onset Date Comments Pt. Information/instruction 11/30/2007 wants second opinion Encounter Details Date Type Department Care Team Description 11/30/2007 Telephone [facility] Nader Garibay Pt . [facility] MD Bro Information/instruction [address] (wants second opinion) [place] [address] [phone] Social History Tobacco Use Types Packs/Day Years Used Date Smoking Tobacco: Never Alcohol Use Standard Drinks/Week Comments Yes 0 (1 standard drink = 0.6 oz pure alcoho l) SELDOM Sex Assigned at Date Recorded Not on file documented as of this encounter Miscellaneous Notes Telephone Encounter - Scalrett Dhaliwal - 12/10/2007 2:32 PM CST patient advised given number to primary care center at [facility] [phone] pt instructed to call andset up her own appt. SCARLETT DHALIWAL MA STRY PATROLMAN Telephone Encounter - Nader Garibay - 12/10/2007 12:25 PM CST I really don't know where she would like to go. She might as well start with an appointment in the general intermal medicine clinic at the - she should not need a referral for this. STRY PATROLMAN Telephone Encounter - Scarlett Dhaliwal - 12/07/2007 2:50 PM CST Where at the [facility]. Are we sending her?? SCARLETT DHALIWAL MA STRY PATROLMAN Telephone Encounter - Kate Jean - 12/02/2007 9:45 AM CST Pt called and advised of MD message for referral to [facility] She states she is available any time forappt.Fred Jean RN STRY PATROLMAN Telephone Encounter - Gabriella Edmond - 12/01/2007 12:45 PM CST took message to have pt return call. STRY PATROLMAN Telephone Encounter - Nader Garibay - 11/30/2007 2:19 PM CST If she wants referral to [facility] that's fine with me. I can't generate a referral to [facility]. STRY PATROLMAN Telephone Encounter - Sabrina Lee - 11/30/2007 2:15 PM CST Pt. States cont. 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 Wants other reasons ruled out that may be causing edema Pt. States wanted to be referred to [facility] Triage had discussion with referrals (Jany) who states pt. Has open access but should be directed within [facility] 1) Would Refer pt to [facility] For edema, and ongoing pain Pt. States is very happy with ORTHO and doesn't feel it is Orthopedic problem. STRY PATROLMAN documented in this encounter Plan of Treatment Not on filedocumented as of this encounter Visit Diagnoses Not on filedocumented in this encounter Care Teams Inspector Process Relationship Specialty Start Date End Date Nader Garibay MD PCP - General 01/01/02 10/16/17 documented as of this encounter
--- OUTSIDE RECORDS SUMMARY | 2022-10-07 10:49 | XMS_ITS | Encounter Summary ---
:1935 Author Organization [facility] Address [address] [place] [address]. [place] [address] Care Team Providers Name Role Phone Nader Garibay MD Primary Care Provider Reason for Referral Referral not Required - Closed Specialty Diagnoses / Procedures Referred By Contact Refer red To Contact Diagnoses Myalgia and myositis Nader Garibay MD [facility] [address] [place] [address] [place] [place], [place] [address] [place] [address] Phone: Referral ID Status Reason Start Date Expiration Date Visits Requ ested Visits Authorized [id number] Closed 04/21/2008 11/16/2011 1 1 Reason for Visit Reason Onset Date Comments Results 04/18/2008 MRI Encounter Details Date Type Department Care Team Description 04/18/2008 Telephone [facility] Nader Garibay ler, Results (MRI) Eunice Edwar HERNANDEZ [address] [place] [phone] [place], [place] [phone] (Wo rk) Social History Tobacco Use Types Packs/Day Years Used Date Smoking Tobacco: Never Alcohol Use Standard Drinks/Week Comments Yes 0 (1 standard drink = 0.6 oz pure alcoho l) SELDOM Sex Assigned at Date Recorded Not on file documented as of this encounter Miscellaneous Notes Telephone Encounter - Luz Maria Maza - 04/21/2008 11:22 AM CDT Patient called back and was given [facility] #[phone] and told to call and make anappt. Pt advised to contact us once appt is made Telephone Encounter - Scarlett Dhaliwal - 04/20/2008 3:34 PM CDT left message to call back SCARLETT DHALIWAL MA Telephone Encounter - Nader Garibay - 04/20/2008 10:02 AM CDT I would have her follow-up with [facility] - please write referral. Telephone Encounter - Jeffy Cannon - 04/19/2008 1:43 PM CDT Treatment plan will have to be per PMD. Pt to await response from Dr Garibay Telephone Encounter - Paulette Farrell - 04/19/2008 1:27 PM CDT Pt calling again. Vaguely reviewed results with her regarding bulging discs and areas of stenosis. She is anxious for MD response as to what is recommended for treatment or who she needs to be referredto as she is supposed to be taking a road trip to [facility] the last week of April and wants to get started on a treatment plan. Fred Farrell R.N. Telephone Encounter - Dino Proctor - 04/18/2008 6:20 PM CDT Hold for primary MD to act upon. Telephone Encounter - Ivonne Hewitt - 04/18/2008 1:27 PM CDT Pt called and asked for results from MRI done on 04-07-08. Please advise pt at above # of any recommendations. Thank you. Ivonne Hewitt LPN documented in this encounter Plan of Treatment Not on filedocumented as of this encounter Visit Diagnoses Diagnosis Myalgia and myositis - Primary Mylagia and myositis, unspecified documented in this encounter Care Teams Carbon Capture Power Plant Engineer Relationship Specialty Start Date End Date Nader Garibay MD PCP - General 01/01/02 10/16/17 documented as of this encounter
--- OUTSIDE RECORDS SUMMARY | 2022-10-07 10:49 | XMS_ITS | Encounter Summary ---
:1935 Author Organization [place] Address [address] [place] [address]. [place] [address] Care Team Providers Name Role Phone Donte Skinner MD Primary Care Provider Encounter Details Date Type Department Care Team Description 02/15/2008 [facility] S[facility] NOT YET Clinic Tiny HERNANDEZ DEFINED (Primary Dx) [place] NO INFO FOUND [address] [phone] Social History Tobacco Use Types Packs/Day [...] Date/Time Associated Diagnosis Comme nts CL AFF SURGICAL Routine 02/11/2008 DIAGNOSIS NOT YET Results for this PATHOLOGY DEFINED procedure are i n the results section . documented in this encounter Results SURGICAL PATHOLOGY (02/11/2008) Specimen (Source) Anatomical Location Collection Method / Collectio n Time Received Time / Laterality Volume 02/11/2008 Malia Nguyen - 02/11/2008 CASE: [id number] Patient Name: ANNIA WATT MR#: [id number] Specimen #: [id number] Collected: 02/11/2008 Received: 02/11/2008 Reported: 02/12/2008 11:20 Ordering Phy(s): DYLAN ANGULO Additional Phy(s): DONTE SKINNER SPECIMEN(S): Colon polyp at 38 cm FINAL DIAGNOSIS: Large intestine, rectum, polypectomy - C auterized tissue with no evidence of neoplastic polyp or malignan cy; cannot rule out hyperplastic polyp (see microscopic description). Electronically signed out by: Elieser Carter M.D. CLINICAL HISTORY: Screening colonoscopy. GROSS: The specimen is labeled colon polyp at 38 cm. ??The specimen consists of a crawford, dome-shaped polyp measuring up to 0.5 cm. ??The specimen is inked black, bisected, and entirely subm itted. ??SI ??TRS/elliott MICROSCOPIC: Examination reveals 2 fragments of somew hat cauterized mucosa. One fragment is relatively intact and unrema rkable, however the other fragment demonstrates some crypts surrou nded with fibrous tissue, with some of the crypts appearing elongated a nd perhaps slightly serrated. There is no evidence of neoplastic polyp or malignancy in the submitted material, but I cannot rule out the poss ibility of a cauterized hyperplastic polyp. DCS/elliott 02/12/2008 TESTING LAB LOCATION: [address] ??[id number] COLLECTION SITE: Client: [facility] Location: ENDO (S) Electronically filed by Malia Muir ??02/15/2008 ??8:52 AM Dylan Angulo MD LABORATORY documented in this encounter Visit Diagnoses Diagnosis DIAGNOSIS NOT YET DEFINED - Primary documented in this encounter Care Teams Internal Combustion Engine Inspector Relationship Specialty Start Date End Date Donte Skinner MD PCP - General 01/01/02 10/16/17 documented as of this encounter
--- OUTSIDE RECORDS SUMMARY | 2022-10-07 10:49 | XMS_ITS | Encounter Summary ---
:1935 Author Organization [facility] Address [address] [place] [address] Care Team Providers Name Role Phone Nader Garibay MD Primary Care Provider Reason for Visit Reason Onset Date Comments Results 02/24/2008 Encounter Details Date Type Department Care Team Description 02/24/2008 Telephone [facility] Dylan Durán MD Results [facility] NO INFO FOUND [address] [phone] (Wo rk) Social History Tobacco Use Types Packs/Day Years Used Date Smoking Tobacco: Never Alcohol Use Standard Drinks/Week Comments Yes 0 (1 standard drink = 0.6 oz pure alcoho l) SELDOM Sex Assigned at Date Recorded Not on file documented as of this encounter Miscellaneous Notes Telephone Encounter - Bhumi Tomas - 02/24/2008 4:10 PM CDT Pt advised path results from colonoscopy done 02/11/08 was not an adenoma but may have been hyperplastic. Pathologist states he can not say for sure. Pt advised to only repeat colonoscopy for cause. documented in this encounter Plan of Treatment Not on filedocumented as of this encounter Visit Diagnoses Not on filedocumented in this encounter Care Teams Regional Forester Relationship Specialty Start Date End Date Nader Garibay MD PCP - General 01/01/02 10/16/17 documented as of this encounter
--- OUTSIDE RECORDS SUMMARY | 2022-10-07 10:49 | XMS_ITS | Encounter Summary ---
:1935 Author Organization [facility] Address [address] [place] [address] Care Team Providers Name Role Phone Nader Garibay MD Primary Care Provider Encounter Details Date Type Department Care Team Description 03/17/2008 Orders Only [facility] MAGDALENA LGIA AND MYOSITIS NOS [facility] [address] [phone] Social History Tobacco Use Types Packs/Day Years Used Date Smoking Tobacco: Never Alcohol Use Standard Drinks/Week Comments Yes 0 (1 standard drink = 0.6 oz pure alcoho l) SELDOM Sex Assigned at Date Recorded Not on file documented as of this encounter Plan of Treatment Not on filedocumented as of this encounter Procedures Procedure Name Priority Date/Time Associated Diagnosis Comme nts CL AFF CBC WITH Routine 03/17/2008 2:58 PM Myalgia And Myosit is Results for this PLATELETS, DIFF CDT Nos procedure ar e in the results section. HCL SED RATE (ESR) Routine 03/17/2008 2:58 PM Myalgia And Myos itis Results for this CDT Nos procedure are i n the results section. documented in this encounter Results SED RATE, AUTO (03/17/2008 2:58 PM CDT) P athologist Signature Sed Rate 11 0 - 30 mm/h [facility]3] LAB Specimen Anatomical Collection Method Collection Time Receive d Time (Source) Location / / Volume Laterality 03/17/2008 2:58 PM 8 3:04 CDT PM CDT Nader Garibay MD LABORATORY Performing Organization Address City/State/ZIP Code Phon e Number [facility] [address] [place] [address] [place] [facility] CBC WITH PLATELETS, DIFF (03/17/2008 2:58 PM CDT) [facility] gist Method Time Signature WBC 7.0 4.0 - [facility] 11.0 [place] 10e9/L CLINIC LAB RBC Count 4.70 3.8 - 5.2 [place] 10e12/L [facility] Hemoglobin 13.5 11.7 - [facility] 15.7 g/dL [facility] Hematocrit 40.9 35.0 - [place] 47.0 % [facility] MCV 87 78 - 100 [place] fl [facility] MCH 28.8 26.5 - [facility] 33.0 pg [facility] MCHC 33.0 31.5 - [place] 36.5 g/dL [facility] RDW 12.4 10.0 - [place] 15.0 % [facility] Platelet Count 249 150 - 450 [place] 10e9/L [facility] Diff Method Automated [place] Method [facility] % Neutrophils 68 40 - 75 % [place] [facility] % Lymphocytes 25 20 - 48 % [place] [facility] % Monocytes 7 0 - 12 % [place] [facility] % Eosinophils 0 0 - 6 % [place] [facility] % Basophils 0 0 - 2 % [place] [facility] LAB Absolute 4.7 1.6 - 8.3 [place] Neutrophil 10e9/L [place] [facility] LAB Absolute 1.7 0.8 - 5.3 [place] Lymphocytes 10e9/L [place] [facility] Absolute 0.5 0.0 - 1.3 [place] Monocytes 10e9/L [place] [facility] Absolute 0.0 0.0 - 0.7 [place] Eosinophils 10e9/L [place] [facility] Absolute 0.0 0.0 - 0.2 [place] Basophils 10e9/L [facility] Specimen Anatomical Collection Method Collection Time Receive d Time (Source) Location / / Volume Laterality 03/17/2008 2:58 PM 8 3:04 CDT PM CDT Nader Garibay MD LABORATORY Performing Organization Address City/State/ZIP Code Phon e Number [facility] [address] [place] [address] [facility]3] LAB documented in this encounter Visit Diagnoses Diagnosis Myalgia and myositis, unspecified Mylagia and myositis, unspecified documented in this encounter Care Teams Informatica Mdm Architect Relationship Specialty Start Date End Date Nader Garibay MD PCP - General 01/01/02 10/16/17 documented as of this encounter
--- OUTSIDE RECORDS SUMMARY | 2022-10-07 10:49 | XMS_ITS | Encounter Summary ---
:1935 Author Organization [facility] Address [address] [place] [address]. [place] [address] Care Team Providers Name Role Phone Nader Garibay MD Primary Care Provider Encounter Details Date Type Department Care Team Description 10/21/2007 Results Only [facility] Camron Ellington , [facility] Results [place] [facility] T [address] [place] [address] (Wo rk) Social History Tobacco Use Types [...] Date/Time Associated Diagnosis Comme nts HC X-RAY PELVIS 1-2 Routine 10/21/2007 6:50 PM Re sults for this VIEWS ORAL SURGERY ASSISTANT procedure are i n the results section. C RT X-RAY FEMUR Routine 10/21/2007 6:49 PM Resul ts for this ORAL SURGERY ASSISTANT procedure are i n the results section. documented in this encounter Results X-RAY PELVIS 1-2 VIEWS (10/21/2007 6:50 PM ORAL SURGERY ASSISTANT) Anatomical Region Laterality Modality Other Specimen (Source) Anatomical Collection Method Collection Time Re ceived Time Location / / Volume Laterality 10/21/2007 6:50 PM ORAL SURGERY ASSISTANT Impressions 10/22/2007 11:27 AM ORAL SURGERY ASSISTANT EXAM: ??PELVIS 1-2 VIEW(S) ??Oct 21, 2007 6:50:00 PM HISTORY: ??Pain. FINDINGS: Right total hip arthroplasty. Components appear well-seated. Lowermost portion of the femoral compone nt however is not identified. 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 Remainder of the pelvis and right hip ar e negative. Camron Ellington MD GENERAL IMAGING RT X-RAY FEMUR (10/21/2007 6:49 PM ORAL SURGERY ASSISTANT) Anatomical Region Laterality Modality Other Specimen (Source) Anatomical Collection Method Collection Time Re ceived Time Location / / Volume Laterality 10/21/2007 6:49 PM ORAL SURGERY ASSISTANT Impressions 10/22/2007 11:19 AM ORAL SURGERY ASSISTANT EXAM: ??FEMUR RIGHT 2V ??Oct 21, 2007 6:4 9:00 PM HISTORY: ??Pain. 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 Components appear well-seated. Remainder of the fem ur is normal. Camron Ellington MD GENERAL IMAGING documented in this encounter Visit Diagnoses Not on filedocumented in this encounter Care Teams Fiberglass Fabricator Relationship Specialty Start Date End Date Nader Garibay MD PCP - General 01/01/02 10/16/17 documented as of this encounter
--- OUTSIDE RECORDS SUMMARY | 2022-10-07 10:49 | XMS_ITS | Encounter Summary ---
:1935 Author Organization [facility] Address [address] [place] [address]. [place] [address] Care Team Providers Name Role Phone Nader Garibay MD Primary Care Provider Reason for Visit Reason Comments Musculoskeletal Problem c/o muscle pain/discomfort i n both legs present over the past 6-7 months also c/o some tin gling in L arm at night Encounter Details Date Type Department Care Team Description 04/06/2008 Office Visit [facility] Nader Garibay Myalgia [facility] Myositis Clinic Tiny Crabtree MD (Primary Dx) [place] [address] [place] [phone] Social History Tobacco Use Types Packs/Day Years Used Date Smoking Tobacco: Never Alcohol Use Standard Drinks/Week Comments Yes 0 (1 standard drink = 0.6 oz pure alcoho l) SELDOM Sex Assigned at Date Recorded Not on file documented as of this encounter Last Filed Vital Signs Vital Sign Reading Time Taken Comments Blood Pressure 122/60 04/06/2008 10:45 AM CDT Pulse 76 04/06/2008 10:45 AM CDT Temperature - - Respiratory Rate - - Oxygen Saturation - - Inhaled Oxygen Concentration - - Weight 111.6 kg (246 lb) 04/06/2008 10:45 AM CDT Height 165.1 cm (5' 5) 04/06/2008 10:45 AM CDT Body Mass Index 40.94 04/06/2008 10:45 AM CDT documented in this encounter Progress Notes Nader Garibay - 04/06/2008 11:07 AM CDT HPI: Vielka Yap is a 72 year old female who presents for evaluation of pain in both thighs. For last several months, patient has had severe muscle aches in her thighs. Noticably worse when she tries to get up from seated position after prolonged sitting - seems to then improve after a short period of ambulation. No radicular pain from back, pain seems to start just above her knees, andtravel proximally. ESR was recently performed by her orthopedic surgeon to r/o possibility of PMR; ESR was normal at 11 (performed 03/27/08). Patient currently on Lipitor, has been for at least last year. Patient Active Problem List Diagnoses Code ??? 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 EDEMA 782.3 ??? DEPRESSIVE DISORDER NEC 311 ??? ESOPHAGEAL REFLUX 530.81 ??? MIXED HYPERLIPIDEMIA 272.2 ??? OTHER UNSPEC SLEEP APNEA 780.57 ??? OBESITY NOS 278.00 ??? RESTLESS LEG SYNDROME 333.99 Current outpatient prescriptions Medication Sig ??? LASIX 20 MG OR TABS TWO TABLETS DAILY IN THE MORNING two tabs in the pm ??? VOLTAREN 75 MG OR TBEC 1 daily ??? CALCARB 600 1500 MG OR TABS 1 tablet daily ??? SENNA 187 MG OR TABS daily as needed ??? VITAMIN TABS OR ONE DAILY ??? EFFEXOR XR# 75 MG OR CP24 1 capsule daily with food ??? NEXIUM 40 MG OR CPDR 1 CAPSULE DAILY ??? DOCUSATE SODIUM 100 MG OR CAPS 1 CAPSULE at bedtime ??? POTASSIUM CHLORIDE CR 20 MEQ OR TBCR TWO TABLETS DAILY Past Medical History Diagnosis Date ??? MIXED HYPERLIPIDEMIA ??? ESOPHAGEAL REFLUX ??? DEPRESSIVE DISORDER NEC ??? EDEMA ??? LOC PRIM OSTEOART-L/LEG ??? OTHER UNSPEC SLEEP APNEA ??? RESTLESS LEG SYNDROME Past Surgical History Procedure Date ??? delivery only , Low Cervical,X2 ??? Dilation/curettage,diagnostic X3 IN HER 50s ??? Appendectomy 1950 ??? Surgical history of - 2004 Partial sigmoid resection secondary to ruptured diverticulum. ??? Pelvis/hip joint surgery unlisted ??? Total knee arthroplasty 09/2007 RIGHT Family History Problem Relation ??? Stroke Mother D ; AGE 88 ??? Cancer Father D ; AGE 59 LUNG CANCER ??? Cancer Sister KIDNEY ??? Gynecology Sister ENDOMETRIOSIS ??? Family History Negative Sister ??? Cancer Paternal Grandmother OVARIAN ??? Heart Paternal Grandfather [place] ??? Depression Son History Social History ??? Marital Status: Spouse Name: N/A Number of Children: 2 ??? Years of Education: N/A Occupational History ??? Retired Social History Main Topics ??? Tobacco Use: Never ??? Alcohol Use: Yes SELDOM ??? Drug Use: No ??? Sexually Active: Not Currently Other Topics Concern ??? Not on file Social History Narrative ??? No narrative on file ROS: C: NEGATIVE for fever, chills, change in weight I: NEGATIVE for worrisome rashes, moles or lesions E/M: NEGATIVE for ear, mouth and throat problems R: NEGATIVE for significant cough or SOB CV: NEGATIVE for chest pain, palpitations or peripheral edema GI: NEGATIVE for nausea, abdominal pain, heartburn, or change in bowel habits : NEGATIVE for frequency, dysuria, or hematuria MUSCULOSKELETAL:as above EXAM: BP 122/60 Pulse 76 Ht 5' 5 (1.651 m) Wt 246 lb (111.585 kg) LMP Postmenopausal GENERAL APPEARANCE: healthy, alert [...] or masses and bowel sounds normal Assessment: 729.1P Myalgia and Myositis (primary encounter diagnosis) Comment: Will check CK, and have patient stop Lipitor to see if this is contributing. Check lytes, renal function today. Will check MRI of lumbar spine to r/o possibility of spinal stenosis. If nothingcomes of above w/u - rheum referral. Plan: CK, TOTAL, MRI LUMBAR SPINE, A.M.A. COMPREHENSIVE MET.PANEL Nader Garibay MD documented in this encounter Nursing Notes 04/06/2008 10:45 AM CDT >> SANA Harvey April 06, 2008 10:42 AM Patient presents with: Musculoskeletal Problem - c/o muscle pain/discomfort in both legs present over the past 6-7 months also c/o some tingling in L arm at night Initial BP 122/60 Pulse 76 Ht 5' 5 (1.651 m) Wt 246 lb (111.585 kg) LMP Postmenopausal Bodymass index is 40.94 kg/(m^2). BP completed using cuff size: large Signed by SANA DHALIWAL MA documented in this encounter Plan of Treatment Not on filedocumented as of this encounter Procedures Procedure Name Priority Date/Time Associated Comments Diagnosis HC MRI LUMBAR SPINE Routine 04/07/2008 3:47 PM Myalgia and Re sults for this W/O CONTRAST CDT myositis procedure are i n the results section. HCL COMPREHENSIVE Routine 04/06/2008 11:03 Myalgia and Result s for this METABOLIC PANEL AM CDT Myositis procedure ar e in the results section. HCL CK, TOTAL Routine 04/06/2008 11:03 Myalgia and Results fo r this AM CDT Myositis procedure are i n the results section. documented in this encounter Results MRI LUMBAR SPINE (04/07/2008 3:47 PM CDT) Anatomical Region Laterality Modality Other Specimen (Source) Anatomical Collection Method Collection Time Re ceived Time Location / / Volume Laterality 04/07/2008 3:47 PM CDT Impressions 04/08/2008 7:58 AM CDT MRI LUMBAR SPINE WITHOUT CONTRAST ??April 07, 2008 3:47:00 PM HISTORY: Back pain, painful myelopathy, bilateral leg pain, no surgery on spine, no previous MRI. TECHNIQUE: Sagittal T1 and T2, sagittal inversion recovery, ??and transverse proton density and T2-weighte d pulse sequences. FINDINGS: Five lumbar vertebrae are assu med. Vertebral body heights are within normal limits. There is a sev eral millimeter degenerative Grade 1 anterior spondylolisthesis at L4 -L5, L3-L4 and L2-L3. Prominent disc dehydration with normal d isc height is noted throughout the lumbar spine.. The conus medullaris is unremarkable in appearance on the sagittal images. There is a very low signal intensity sclerotic lesion measuring approximately 1 cm in d iameter in the posterior aspect of the T12 vertebral body to the right of the midline. This correlates with a sclerotic lesion seen in retrospect on the CT scan of 05/21/2007. However, the stability of t he lesion is uncertain given that the lesion is seen on today's sagit aston images, and only the uppermost transverse image. Therefore, t he lesion could be underestimated on today's transverse sca n, and sagittal images are not comparable to the prior scan. Marrow sig nal otherwise appears within normal limits. There is a small, probabl e posterior right renal cortical cyst. T12-L1: No disc bulge or focal disc jayant iation. No central or foraminal stenosis. L1-L2: Minimal disc bulge with no focal disc herniation. No central or foraminal stenosis. L2-L3: Mild generalized bulge of the dis c annulus with mild central stenosis and mild bilateral foraminal st enosis. L3-L4: Generalized disc bulge and ligame ntum flavum thickening with mild central stenosis and mild bilateral foraminal stenosis. Advanced apophyseal joint degenerative changes ar e noted bilaterally. L4-L5: Minimal disc bulge with no focal disc herniation. No central or foraminal stenosis. Moderately advanced apophyseal joint degenerative changes are noted bilaterally. L5-S1: No disc bulge or focal disc herni ation. No central or foraminal stenosis. Moderately advanced apophyseal joint degenerative changes are noted bilaterally. IMPRESSION: 1. Small, low signal intensity sclerotic lesion within the posterior aspect of the T12 vertebral body. This m ay be stable compared to 05/21/2005, although the imaging planes ar e not entirely comparable. This most likely represents a bone islan d, although a sclerotic metastasis is not entirely excluded. 2. Mild central stenosis greatest at L2- L3 and L3-L4. 3. Mild multilevel foraminal stenosis. 4. Apophyseal joint degenerative changes and associated Grade 1 degenerative spondylolistheses as above. Nader Garibay MD SPECIAL IMAGING STUDIES A.M.A. COMPREHENSIVE MET.PANEL (04/06/2008 11:03 AM CDT) P athologist Signature Sodium 143 133 - 144 [place] mmol/L [facility] Potassium 4.3 3.4 - 5.3 [place] mmol/L [facility] Chloride 101 94 - 109 [place] mmol/L [facility] Carbon Dioxide 29 20 - 32 [place] mmol/L [facility] Anion Gap 14 6 - 17 [place] mmol/L [facility] Glucose 90 60 - 99 [place] mg/dL [facility] Urea Nitrogen 22 7 - 30 [place] mg/dL [facility] Creatinine 0.89 0.52 - [place] 1.04 mg/dL [facility] Comment: New IDMS-traceable calibration beginning 03/17/08 GFR Estimate 63 >60 mL/min/1.7m2 [place] [facility] GFR Estimate If Black 76 >60 mL/min/1.7m2 F [facility] Calcium 9.9 8.5 - 10.4 mg/dL [facility] Bilirubin Total 0.4 0.2 - 1.3 mg/dL [facility] Albumin 4.5 3.2 - 4.5 g/dL [facility] Protein Total 7.5 6.8 - 8.8 g/dL [facility] Comment: As of 08, reference range reflects plasma specimen type. Alkaline Phosphatase 99 40 - 150 U/L [facility] EW [facility] ALT 36 0 - 50 U/L [facility] CLI [facility] AST 42 0 - 45 U/L [facility] Specimen Anatomical Collection Method Collection Time Receive d Time (Source) Location / / Volume Laterality 04/06/2008 11:03 04/06/2008 AM CDT 11:08 AM CDT Nader Garibay MD LABORATORY Performing Organization Address City/State/ZIP Code Phon e Number [facility] [address] [place] [address] [facility] CK, TOTAL (04/06/2008 11:03 AM CDT) P athologist Signature CK Total 41 32 - 200 [facility] U/L [facility] Specimen Anatomical Collection Method Collection Time Receive d Time (Source) Location / / Volume Laterality 04/06/2008 11:03 04/06/2008 AM CDT 11:08 AM CDT Nader Garibay MD LABORATORY Performing Organization Address City/State/ZIP Code Phon e Number [facility] [address] [place] [address] [facility] documented in this encounter Visit Diagnoses Diagnosis Myalgia and myositis - Primary Mylagia and myositis, unspecified documented in this encounter Care Teams Tourist Home Keeper Relationship Specialty Start Date End Date Nader Garibay MD PCP - General 01/01/02 10/16/17 documented as of this encounter
--- OUTSIDE RECORDS SUMMARY | 2022-10-07 10:49 | XMS_ITS | Encounter Summary ---
:1935 Author Organization [facility] Address [address] [place] [address] Care Team Providers Name Role Phone Nader Garibay MD Primary Care Provider Reason for Visit Reason Onset Date Comments Ultrasound 10/16/2007 Encounter Details Date Type Department Care Team Description 10/16/2007 Telephone [facility] Nader Garibay MD Ultrasound [address] [address] [place] [address] [phone] Social History Tobacco Use Types Packs/Day Years Used Date Smoking Tobacco: Never Alcohol Use Standard Drinks/Week Comments Yes 0 (1 standard drink = 0.6 oz pure alcoho l) SELDOM Sex Assigned at Date Recorded Not on file documented as of this encounter Miscellaneous Notes Telephone Encounter - Nader Garibay - 10/16/2007 3:58 PM CST Spoke with patient and addressed her concerns. Her ultrasound was negative for any DVT. I don't feel that she needs any sort of vascular specialist - she has swelling related to venous insufficiency that we need to continue to treat in the usual fashion: compression stockings, elevation, and diuretics as needed. GNMENT OFFICER Telephone Encounter - Kate Jean - 10/16/2007 9:57 AM CST Pt had u/s done at [facility] yesterday and told by the radiology dept that the test was negative. Pt is concerned that the whole leg was not tested. Pt upset because she feels something more needs to be done due to the swelling which she says is worse today. Pt wants a referral to someone who specializes in circulatory problems. I called Radiology to fax the results as they are not in the computer yet.Fred Jean RN GNMENT OFFICER documented in this encounter Plan of Treatment Not on filedocumented as of this encounter Visit Diagnoses Not on filedocumented in this encounter Care Teams Legal Job Titles Relationship Specialty Start Date End Date Nader Garibay MD PCP - General 01/01/02 10/16/17 documented as of this encounter
--- OUTSIDE RECORDS SUMMARY | 2022-10-07 10:49 | XMS_ITS | Encounter Summary ---
:1935 Author Organization [facility] Address [address] [place] [address]. [place] [address] Care Team Providers Name Role Phone Nader Garibay MD Primary Care Provider Encounter Details Date Type Department Care Team Description 09/24/2007 Historic Results INTERFACED REPORT Tmoas Eckert MD [facility] [address] [place] [place] [address] (Wo rk) Social History Tobacco Use Types Packs/Day Years Used Date Smoking Tobacco: Never Alcohol Use Standard Drinks/Week Comments Yes 0 (1 standard drink = 0.6 oz pure alcoho l) SELDOM Sex Assigned at Date Recorded Not on file documented as of this encounter Plan of Treatment Not on filedocumented as of this encounter Procedures Procedure Name Priority Date/Time Associated Diagnosis Comme nts GLUCOSE BY METER Routine 09/24/2007 1:29 PM Resul ts for this CORE WINDER MACHINE OPERATOR procedure are i n the results section. HEMOGRAM AND Routine 09/24/2007 8:03 AM Results f or this PLATELET CORE WINDER MACHINE OPERATOR procedure are i n the results section. BASIC METABOLIC Routine 09/24/2007 8:03 AM Result s for this PANEL CORE WINDER MACHINE OPERATOR procedure are i n the results section. documented in this encounter Results (ABNORMAL) Glucose by meter (09/24/2007 1:29 PM CORE WINDER MACHINE OPERATOR) P athologist Signature Glucose 168 (H) 60 - 99 [place] mg/dL Specimen Anatomical Collection Method Collection Time Receive d Time (Source) Location / / Volume Laterality 09/24/2007 1:29 PM 7 7:41 CORE WINDER MACHINE OPERATOR AM CORE WINDER MACHINE OPERATOR Tomas Eckert MD LAB - BEAKER POCT Performing Organization Address City/State/ZIP Code Phon e Number [place] (ABNORMAL) Basic metabolic panel (09/24/2007 8:03 AM CORE WINDER MACHINE OPERATOR) P athologist Signature Sodium 133 133 - 144 [place] mmol/L Potassium 3.7 3.4 - 5.3 [place] mmol/L Chloride 93 (L) 94 - 109 [place] mmol/L Carbon Dioxide 36 (H) 20 - 32 [place] mmol/L Glucose 127 (H) 60 - 99 [place] mg/dL Urea Nitrogen 12 7 - 30 [place] mg/dL Creatinine 0.97 0.60 - [place] 1.30 mg/dL GFR Estimate 61 >60 [place] mL/min/1.7 m2 GFR Estimate If 73 >60 [place] Black mL/min/1.7 m2 Calcium 9.0 8.5 - 10.4 [place] mg/dL Anion Gap 4 (L) 6 - 17 [place] mmol/L Specimen Anatomical Collection Method Collection Time Receive d Time (Source) Location / / Volume Laterality 09/24/2007 8:03 AM 7 CORE WINDER MACHINE OPERATOR 11:12 AM CORE WINDER MACHINE OPERATOR Jeffy Cannon MD LAB - BLOOD ORDERABLES Performing Organization Address City/State/ZIP Code Phon e Number [place] (ABNORMAL) Hemogram and platelet (09/24/2007 8:03 AM CORE WINDER MACHINE OPERATOR) Analysis Performed At Patho logist Time Signature MCV 85 78 - 100 [place] fl MCH 29.8 26.5 - [place] 33.0 pg MCHC 35.0 31.5 - [place] 36.5 g/dL RDW 14.1 10.0 - [place] 15.0 % WBC 8.3 4.0 - 11.0 [place] 10e9/L RBC Count 3.19 (L) 3.8 - 5.2 [place] 10e12/L Hemoglobin 9.5 (L) 11.7 - [place] 15.7 g/dL Hematocrit 27.2 (L) 35.0 - [place] 47.0 % Platelet Count 182 150 - 450 [place] 10e9/L Specimen Anatomical Collection Method Collection Time Receive d Time (Source) Location / / Volume Laterality 09/24/2007 8:03 AM 7 CORE WINDER MACHINE OPERATOR 11:12 AM CORE WINDER MACHINE OPERATOR Jeffy Cannon MD LAB - BLOOD ORDERABLES Performing Organization Address City/State/ZIP Code Phon e Number [place] documented in this encounter Visit Diagnoses Not on filedocumented in this encounter Care Teams Mobile Application Development Lead Relationship Specialty Start Date End Date Nader Garibay MD PCP - General 01/01/02 10/16/17 documented as of this encounter
--- OUTSIDE RECORDS SUMMARY | 2022-10-07 10:49 | XMS_ITS | Encounter Summary ---
:1935 Author Organization [facility] Address [address] [place] [address] Care Team Providers Name Role Phone Donte Skinner MD Primary Care Provider Encounter Details Date Type Department Care Team Description 02/11/2008 Historic Results [facility] Dylan Juárez MD [facility] NO INFO FOUND [address] [address] [phone] (Wo rk) Social History Tobacco Use Types Packs/Day Years Used Date Smoking Tobacco: Never Alcohol Use Standard Drinks/Week Comments Yes 0 (1 standard drink = 0.6 oz pure alcoho l) SELDOM Sex Assigned at Date Recorded Not on file documented as of this encounter Plan of Treatment Not on filedocumented as of this encounter Procedures Procedure Name Priority Date/Time Associated Diagnosis Comme nts HISTOPATHOLOGY Routine 02/11/2008 11:00 AM Result s for this CDT procedure are i n the results section . documented in this encounter Results Histopathology (02/11/2008 11:00 AM CDT) Component Value Ref Test Analysis Performed At [facility] Method Time Signature Copath Report CASE: [id number] ^ COPATH Patient Name: ANNIA WATT MR#: [id number] Specimen #: [id number] Collected: 02/11/2008 Received: 02/11/2008 Reported: 02/12/2008 11:20 Ordering Phy(s): DYLAN ANGULO Additional Phy(s): DONTE SKINNER SPECIMEN(S): Colon polyp at 38 cm FINAL DIAGNOSIS: Large intestine, rectum, polypectomy - Cauterized tissue wit h no evidence of neoplastic polyp or malignancy; cannot rule out hyperplastic polyp (see microscopic description). Electronically signed out by: Elieser Carter M.D. CLINICAL HISTORY: Screening colonoscopy. GROSS: The specimen is labeled colon polyp at 38 cm. ??The specim en consists of a crawford, dome-shaped polyp measuring up to 0.5 cm. ??The sp ecimen is inked black, bisected, and entirely submitted. ??SI ??TRS/elliott MICROSCOPIC: Examination reveals 2 fragments of somewhat cauterized mucos a. ??One fragment is relatively intact and unremarkable, however the other fragment demonstrates some crypts surrounded with fibrous ti ssue, with some of the crypts appearing elongated and perhaps slightly serrated. There is no evidence of neoplastic polyp or malignancy in th e submitted material, but I cannot rule out the possibility of a cauteri zed hyperplastic polyp. DCS/elliott 02/12/2008 TESTING LAB LOCATION: [address] ??[id number] COLLECTION SITE: Client: [facility] Location: ENDO (S) Specimen Anatomical Collection Method Collection Time Receive d Time (Source) Location / / Volume Laterality 02/11/2008 11:00 02/12/2008 AM CDT 11:20 AM CDT Dylan Angulo MD LAB - COPATH SPECIAL DIAG OR DERABLES Performing Organization Address City/State/ZIP Code Phon e Number COPATH documented in this encounter Visit Diagnoses Not on filedocumented in this encounter Care Teams Flat Surfacer Relationship Specialty Start Date End Date Donte Skinner MD PCP - General 01/01/02 10/16/17 documented as of this encounter
--- OUTSIDE RECORDS SUMMARY | 2022-10-07 10:49 | XMS_ITS | Encounter Summary ---
:1935 Author Organization [facility] Address [address] [place] [address] Care Team Providers Name Role Phone Nader Garibay MD Primary Care Provider Reason for Visit Reason Onset Date Comments Refill Request 07/05/2008 Encounter Details Date Type Department Care Team Description 07/05/2008 Refill [facility] Nader Garibay MD Refill Request [address] [address] [place] [address] [phone] Social History Tobacco Use Types Packs/Day Years Used Date Smoking Tobacco: Never Alcohol Use Standard Drinks/Week Comments Yes 0 (1 standard drink = 0.6 oz pure alcoho l) SELDOM Sex Assigned at Date Recorded Not on file documented as of this encounter Miscellaneous Notes Telephone Encounter - Cee Au - 07/05/2008 2:09 PM CDT Rx filled per standing order. Cee Au RN documented in this encounter Plan of Treatment Not on filedocumented as of this encounter Visit Diagnoses Diagnosis Edema documented in this encounter Care Teams Fx Artist Relationship Specialty Start Date End Date Nader Garibay MD PCP - General 01/01/02 10/16/17 documented as of this encounter
--- OUTSIDE RECORDS SUMMARY | 2022-10-07 10:49 | XMS_ITS | Encounter Summary ---
:1935 Author Organization [facility] Address [address] [place] [address] Care Team Providers Name Role Phone Nader Garibay MD Primary Care Provider Reason for Visit Reason Onset Date Comments Colonoscopy 12/29/2007 Encounter Details Date Type Department Care Team Description 12/29/2007 Telephone [facility] Dylan Durán MD Colonoscopy [facility] NO INFO FOUND [address] [address] [phone] (Wo rk) Social History Tobacco Use Types Packs/Day Years Used Date Smoking Tobacco: Never Alcohol Use Standard Drinks/Week Comments Yes 0 (1 standard drink = 0.6 oz pure alcoho l) SELDOM Sex Assigned at Date Recorded Not on file documented as of this encounter Miscellaneous Notes Telephone Encounter - Bhumi Tomas - 12/29/2007 11:58 AM CST Colonoscopy scheduled at [facility] on 02/11/08 at 10:10AM for screening. Worksheet completed and packet will be mailed. OYEE OPERATIONS EXAMINER documented in this encounter Plan of Treatment Not on filedocumented as of this encounter Visit Diagnoses Not on filedocumented in this encounter Care Teams Washing Machine Loader And Puller Relationship Specialty Start Date End Date Nader Garibay MD PCP - General 01/01/02 10/16/17 documented as of this encounter
--- OUTSIDE RECORDS SUMMARY | 2022-10-07 10:49 | XMS_ITS | Encounter Summary ---
:1935 Author Organization [facility] Address [address] [place] [address] Care Team Providers Name Role Phone Nader Garibay MD Primary Care Provider Reason for Visit Reason Onset Date Comments Refill Request 05/25/2008 Encounter Details Date Type Department Care Team Description 05/25/2008 Refill [facility] Nader Garibay MD Refill Request [address] [address] [place] [address] [phone] Social History Tobacco Use Types Packs/Day Years [...] Primary documented in this encounter Care Teams Head Librarian Relationship Specialty Start Date End Date Nader Garibay MD PCP - General 01/01/02 10/16/17 documented as of this encounter
--- OUTSIDE RECORDS SUMMARY | 2022-10-07 10:49 | XMS_ITS | Encounter Summary ---
:1935 Author Organization [facility] Address [address] [place] [address]. [place] [address] Care Team Providers Name Role Phone Nader Garibay MD Primary Care Provider Encounter Details Date Type Department Care Team Description 09/24/2007 Historic Notes INTERFACED REPORT Interface, Transcript on, Social History Tobacco Use Types Packs/Day Years Used Date Smoking Tobacco: Never Alcohol Use Standard Drinks/Week Comments Yes 0 (1 standard drink = 0.6 oz pure alcoho l) SELDOM Sex Assigned at Date Recorded Not on file documented as of this encounter Progress Notes Interface, Hand Stone Polisher - 02/04/2011 7:54 AM CDT Discharge Summary Discharge - Reason for Discharge Discharge from facility, TCU - Progress toward achieving Goals not met short term goals/penitentiary goals - Barriers to achieving goals Early discharge from facility - Comments Patient seen for eval only, see POC for details re: goals. - Continued Therapy Yes Recommended - Rationale/ Recommendations OT to increase ADL independence and cognition as needed for safe return home at discharge. SANTA Coulter (OT)[Signed 24-Sep-2007 12:12] Authored: Discharge Summary Interface, Hand Stone Polisher - 02/04/2011 7:53 AM CDT Discharge Summary Discharge - Reason for Discharge Discharge from facility, tcu 09/24/07 - Progress toward achieving Goals partially met, mod assist of 1-2 short term goals/penitentiary with mobility goals - Barriers to achieving goals Limited tolerance for therapy pain, weakness, low motivation - Continued Therapy Yes Recommended - Rationale/ Recommendations Pt will benefit from continued skilled PT to maximize independence with mobility. Adrienne Roper (Therapist)[Signed 24-Sep-2007 13:22] Authored: Discharge Summary Interface, Hand Stone Polisher - 02/04/2011 7:53 AM CDT SW: D - Confirmed with Pt. that w/c transport was coming at 11:30 to take Pt. to [facility]. Pt. was aware of D/C plan. Called [facility] and confirmed bed. [facility] stated they had bed for Pt. at 11:30. Faxed orders to [facility]. A - Pt was lethargic but oriented. P - SW will follow to ensure D/C needs go as planned. [Signature] Author:PIA WARNER ([facility]) [Signed 24-Sep-2007 16:09] Interface, Hand Stone Polisher - 02/04/2011 7:53 AM CDT Discharge Planning - Discharge From: [facility] - Patient Care Unit: - U - Discharge To: assisted [facility], [facility] - Phone number after [phone] discharge: - Method of discharge: Wheel Chair - Transportation: Med[facility], [facility]/TCT Signatures PIA WARNER ([facility])[Signed 24-Sep-2007 16:10] Authored: Discharge Planning documented in this encounter Plan of Treatment Not on filedocumented as of this encounter Visit Diagnoses Not on filedocumented in this encounter Care Teams Time Study Observer Relationship Specialty Start Date End Date Nader Garibay MD PCP - General 01/01/02 10/16/17 documented as of this encounter
--- OUTSIDE RECORDS SUMMARY | 2022-10-07 10:49 | XMS_ITS | Encounter Summary ---
:1935 Author Organization [facility] Address [address] [place] [address] Care Team Providers Name Role Phone Nader Garibay MD Primary Care Provider Reason for Visit Reason Onset Date Comments Refill Request 02/22/2008 Encounter Details Date Type Department Care Team Description 02/22/2008 Refill [facility] Nader Garibay MD Refill Request [address] [address] [place] [address] [phone] Social History Tobacco Use Types Packs/Day Years Used Date Smoking Tobacco: Never Alcohol Use Standard Drinks/Week Comments Yes 0 (1 standard drink = 0.6 oz pure alcoho l) SELDOM Sex Assigned at Date Recorded Not on file documented as of this encounter Miscellaneous Notes Telephone Encounter - Herminia Mariscal - 02/22/2008 4:10 PM CDT Filled per standing order. Herminia Mariscal RN documented in this encounter Plan of Treatment Not on filedocumented as of this encounter Visit Diagnoses Diagnosis Edema documented in this encounter Care Teams Chief Safety Officer Relationship Specialty Start Date End Date Nader Garibay MD PCP - General 01/01/02 10/16/17 documented as of this encounter
--- OUTSIDE RECORDS SUMMARY | 2022-10-07 10:49 | XMS_ITS | Encounter Summary ---
:1935 Author Organization [facility] Address [address] [place] [address] Care Team Providers Name Role Phone Nader Garibay MD Primary Care Provider Encounter Details Date Type Department Care Team Description 10/21/2007 Historic Notes INTERFACED REPORT Interface, Transcript on, Social History Tobacco Use Types Packs/Day Years Used Date Smoking Tobacco: Never Alcohol Use Standard Drinks/Week Comments Yes 0 (1 standard drink = 0.6 oz pure alcoho l) SELDOM Sex Assigned at Date Recorded Not on file documented as of this encounter Progress Notes Interface, Supervisor Spinning - 02/04/2011 6:45 AM CDT Allergies ?? ibuprofen;Other f0?? tetracycline;Other(See Desc) f0?? Augmentin;Unknown pard par Basic Medication Information - History taken from:: Patient Medications (#1-10) Medication #1 - Medication: Furosemide Medication #2 - Medication: Oxycodone Medication #3 - Medication: Lupillo ASA - Dose: 81 - unit(s): mg Medication #4 - Medication: Nexium Medication #5 - Medication: Potassium CL ER Medication #6 - Medication: Effexor XR Medication #7 - Medication: Lipitor Medication #8 - Medication: Mirapax Medication #9 - Medication: Diclofen Sodium Medication #10 - Medication: Doculsate Medications (#11-20) Medication #11 - Medication: Estro Vital Nutrients Signatures Valeria Morgan)[Signed 17:55] Authored: Allergies, Basic Medication Information, Medications (#1-10), Medications (#11-20) documented in this encounter Plan of Treatment Not on filedocumented as of this encounter Visit Diagnoses Not on filedocumented in this encounter Care Teams Computer Artist Relationship Specialty Start Date End Date Nader Garibay MD PCP - General 01/01/02 10/16/17 documented as of this encounter
--- OUTSIDE RECORDS SUMMARY | 2022-10-07 10:49 | XMS_ITS | Encounter Summary ---
:1935 Author Organization [facility] Address [address] [place] [address]. [place] [address] Care Team Providers Name Role Phone Nader Garibay MD Primary Care Provider Encounter Details Date Type Department Care Team Description 07/05/2008 Results Only [facility] Mark Robles MD Hospital Results [facility] [address] [place], [place] [address] (Wo rk) Social History Tobacco Use Types Packs/Day Years Used Date Smoking Tobacco: Never Alcohol Use Standard Drinks/Week Comments Yes 0 (1 standard drink = 0.6 oz pure alcoho l) SELDOM Sex Assigned at Date Recorded Not on file documented as of this encounter Plan of Treatment Not on filedocumented as of this encounter Procedures Procedure Name Priority Date/Time Associated Comments Diagnosis HC CT LUMBAR SPINE WO Routine 07/05/2008 9:34 AM Results for this CONTRAST CDT procedure are i n the results section. HC MYELOGRAM Routine 07/05/2008 9:13 AM Results f or this LUMBOSACRAL CDT procedure are i n the results section. documented in this encounter Results CT SCAN LUMBAR SPINE (07/05/2008 9:34 AM CDT) Anatomical Region Laterality Modality Other Specimen (Source) Anatomical Collection Method Collection Time Re ceived Time Location / / Volume Laterality 07/05/2008 9:34 AM CDT Impressions 07/06/2008 12:[address] LUMBAR SPINE WITH CONTRAST Jul 05 12:37:00 PM HISTORY: Low back pain and bilateral leg pain. COMPARISON: MRI from 04/07/2008. TECHNIQUE: Axial scans were performed th rough the lumbar spine with sagittal reconstruction. FINDINGS: Scans were performed from T11 to sacrum. T11-T12: Mild anterior osteophyte format ion. No disc herniation, central, or foraminal stenosis. Mild fac et degenerative changes. T12-L1: Incidental note is made of a bon e island in the posterior aspect of the T12 vertebra. There is no disc herniation, central, or foraminal stenosis. Mild facet degenerat lilia changes. L1-L2: No disc herniation, central, or f oraminal stenosis. Mild facet degenerative changes. L2-L3: Mild disc bulge. Mild to moderate central stenosis. Mild facet and ligamentum flavum hypertrophy. Mild to moderate bilateral foraminal stenosis. L3-L4: Broad-based disc bulge and facet and ligamentum flavum hypertrophy result in moderate central s tenosis. Moderate bilateral foraminal stenosis, left greater than ri ght, with nerve root contact but no definite compression. L4-L5: Very advanced facet degenerative changes. Mild broad-based disc bulge. Mild central stenosis. Moderate b ilateral foraminal stenosis. L5-S1: Mild degenerative disc disease an d moderate facet hypertrophy. No central or foraminal stenosis. IMPRESSION: 1. At L4-L5 there is mild central stenos is and moderate bilateral foraminal stenosis. 2. At L3-L4 there is moderate central an d bilateral foraminal stenosis. 3. At L2-L3 there is mild to moderate ce ntral stenosis. Mild to moderate bilateral foraminal stenosis. 4. Multilevel facet degenerative changes as described above. 5. Small bone island posterior aspect of the T12 vertebral body. Mark Conway MD [employer] MYELOGRAPHY LUMBAR SPINE (07/05/2008 9:13 AM CDT) Anatomical Region Laterality Modality Other Specimen (Source) Anatomical Collection Method Collection Time Re ceived Time Location / / Volume Laterality 07/05/2008 9:13 AM CDT Impressions 07/06/2008 12:25 PM CDT LUMBAR MYELOGRAM ??Jul 05, 2008, 9:13 AM HISTORY: Low back and bilateral leg pain . COMPARISON: MRI from 04/07/2008. TECHNIQUE: The risks, benefits and alter natives to the procedure were thoroughly discussed with the patient. I nformed consent was signed. Using the usual strict sterile technique , 1% lidocaine for local anesthesia, and fluoroscopic guidance, a 22-gauge spinal needle was directed into the subarachnoid space fro m a right paramidline approach at the L2-3 level. 12 mL of Omnipaque 18 0 were instilled and multiple images obtained, including flexion and e xtension views. FINDINGS: There is grade 1 spondylolisth esis of L4 on L5 that is slightly more prominent in flexion than in extension or neutral positioning. Mild multilevel impressions on the thecal sac, most prominent at L2-3 and L3-4. IMPRESSION: 1. Very mild grade 1 spondylolisthesis o f L4 on L5, mildly more prominent in flexion than extension. 2. Multilevel mild degenerative disc dis ease. Please see CT scan report. Mark Conway MD [employer] documented in this encounter Visit Diagnoses Not on filedocumented in this encounter Care Teams Industrial Cleaning Technician Relationship Specialty Start Date End Date Nader Garibay MD PCP - General 01/01/02 10/16/17 documented as of this encounter
--- OUTSIDE RECORDS SUMMARY | 2022-10-07 10:49 | XMS_ITS | Encounter Summary ---
:1935 Author Organization [place] Address [address] [place] [address] Care Team Providers Name Role Phone Nader Garibay MD Primary Care Provider Reason for Visit Reason Onset Date Comments Other 04/25/2008 insurance needing di ag for nexium Encounter Details Date Type Department Care Team Description 04/25/2008 Telephone [facility] Nader Garibay Ot her (insurance [facility] MD Bro needing diag for [address] nexium) [place] [address] [phone] Social History Tobacco Use Types Packs/Day Years Used Date Smoking Tobacco: Never Alcohol Use Standard Drinks/Week Comments Yes 0 (1 standard drink = 0.6 oz pure alcoho l) SELDOM Sex Assigned at Date Recorded Not on file documented as of this encounter Miscellaneous Notes Telephone Encounter - Sabrina Lee - 04/25/2008 2:24 PM CDT Triage called Mail order to give diagnosis What was needed was a PA for nexium Not just a diagnosis PA approved for Nexium 40 mgm one per day good for one year From 04/25/08 To 04/25/09 Pt. Advised that PA approved- and pt. Will call [employer] to advise PA done Telephone Encounter - Sabrina Lee - 04/25/2008 1:19 PM CDT Pt. States has been on Nexium for a few years for acid reflux States prior Prilosec is not as effective - Has been using mail order Mail order has current RX But mail order states now needs ' s office tocall and tell mail order what diag is for Nexium Call Dyan- Member [phone] Needs Diagnosis THen Care Joshua needs to call [employer] - Please let pt. Know response. Also FYI Pt. Is seeing Dr. Mark Conway on April 28 For lower lumbar spine. documented in this encounter Plan of Treatment Not on filedocumented as of this encounter Visit Diagnoses Not on filedocumented in this encounter Care Teams Vinyl Flooring Installer Relationship Specialty Start Date End Date Nader Garibay MD PCP - General 01/01/02 10/16/17 documented as of this encounter
--- OUTSIDE RECORDS SUMMARY | 2022-10-07 10:49 | XMS_ITS | Encounter Summary ---
:1935 Author Organization [place] Address [address] [place] [address] Care Team Providers Name Role Phone Nader Garibay MD Primary Care Provider Reason for Visit Reason Comments Consult here to discuss medications/ side effects, pt made some dosage quant. changes over the past week Encounter Details Date Type Department Care Team Description 01/13/2008 Office Visit [facility] Nader Garibay LOC PRIM OSTEOART-L/LEG (Primary Dx); Clinic Tiny Crabtree MD [facility] [place] [address] [place] [id number] [phone] Social History Tobacco Use Types Packs/Day Years Used Date Smoking Tobacco: Never Alcohol Use Standard Drinks/Week Comments Yes 0 (1 standard drink = 0.6 oz pure alcoho l) SELDOM Sex Assigned at Date Recorded Not on file documented as of this encounter Last Filed Vital Signs Vital Sign Reading Time Taken Comments Blood Pressure 122/76 01/13/2008 11:45 AM RESIDENTIAL REAL ESTATE APPRAISER Pulse 76 01/13/2008 11:45 AM RESIDENTIAL REAL ESTATE APPRAISER Temperature - - Respiratory Rate - - Oxygen Saturation - - Inhaled Oxygen Concentration - - Weight 113.4 kg (250 lb) 01/13/2008 11:45 AM RESIDENTIAL REAL ESTATE APPRAISER Height - - Body Mass Index 41.6 09/16/2007 9:00 AM CDT documented in this encounter Progress Notes Nader Garibay - 01/13/2008 1:22 PM CST HPI: Vielka Yap is a 72 year old female who presents for follow-up. She has made a few changes to her medication regimen, which seem to have helped her bloating and lower extremity edema, as well as her insomnia: Her voltaren has been reduced to qday, and she has reduced her Effexor to 75mg daily, from 225mg. Weight is down, sleep is better, and edema seems to be less. Patient Active Problem List Diagnoses Code ??? 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 EDEMA 782.3 ??? DEPRESSIVE DISORDER NEC 311 ??? ESOPHAGEAL REFLUX 530.81 ??? MIXED HYPERLIPIDEMIA 272.2 ??? OTHER UNSPEC SLEEP APNEA 780.57 ??? OBESITY NOS 278.00 ??? RESTLESS LEG SYNDROME 333.99 Current outpatient prescriptions Medication Sig ??? VOLTAREN 75 MG OR TBEC 1 daily ??? CALCARB 600 1500 MG OR TABS 1 tablet daily ??? SENNA 187 MG OR TABS daily as needed ??? VITAMIN TABS OR ONE DAILY ??? EFFEXOR XR# 75 MG OR CP24 1 capsule daily with food ??? LIPITOR 20 MG OR TABS ONE DAILY ??? LASIX 20 MG OR TABS TWO TABLETS DAILY IN THE MORNING two tabs in the pm ??? NEXIUM 40 MG OR CPDR 1 [...] Paternal Grandmother OVARIAN ??? Heart Paternal Grandfather [place] ??? Depression Son History Social History ??? [...] : NEGATIVE for frequency, dysuria, or hematuria EXAM: BP 122/76 Pulse 76 Wt 250 lbs (113.4kg) LMP Postmenopausal GENERAL APPEARANCE: healthy, alert and [...] or masses and bowel sounds normal Assessment: 715.16 LOC PRIM OSTEOART-L/LEG (primary encounter diagnosis) Note: Would take it a step further, and replace voltaren with prn naprosyn Plan: VOLTAREN 75 MG OR TBEC 782.3 EDEMA Note: Plan: A.M.A. BASIC METABOLIC PANEL Nader Garibay MD DENTIAL REAL ESTATE APPRAISER documented in this encounter Nursing Notes 01/13/2008 11:45 AM CST >> SANA DHALIWAL 01/13/2008 11:50 am Patient presents with: Consult - here to discuss medications/side effects, pt made some dosage quant. changes over the past week Medications reviewed: No discrepancies identified. Initial BP 122/76 Pulse 76 Wt 250 lbs (113.4kg) LMP Postmenopausal Estimated Body mass index is 41.60 kg/(m^2) as calculated from: Height of 5' 5 (1.651 m) as of 09/16/07 Weight of 250 lbs (113.399 kg) as of this encounter BP completed using cuff size: large Signed by SANA DHALIWAL MA documented in this encounter Plan of Treatment Not on filedocumented as of this encounter Procedures Procedure Name Priority Date/Time Associated Diagnosis Comme nts HCL BASIC METABOLIC Routine 01/13/2008 12:21 PM Edema R esults for this PANEL RESIDENTIAL REAL ESTATE APPRAISER procedure are i n the results section. documented in this encounter Results (ABNORMAL) A.M.A. BASIC METABOLIC PANEL (01/13/2008 12:21 PM RESIDENTIAL REAL ESTATE APPRAISER) P athologist Signature Sodium 142 133 - 144 [place] mmol/L [facility] Potassium 4.2 3.4 - 5.3 [place] mmol/L [facility] Chloride 101 94 - 109 [place] mmol/L [facility] Carbon Dioxide 30 20 - 32 [place] mmol/L [facility] Anion Gap 11 6 - 17 [place] mmol/L [facility] Glucose 103 (H) 60 - 99 [place] mg/dL [facility] Urea Nitrogen 22 7 - 30 [place] mg/dL [facility] Creatinine 1.20 0.60 - [place] 1.30 mg/dL [facility] GFR Estimate 47 (L) >60 [place] mL/min/1.7 [facility] GFR Estimate If 57 (L) >60 [place] Black mL/min/1.7 [facility] Calcium 9.9 8.5 - 10.4 [place] mg/dL [facility] Specimen Anatomical Collection Method Collection Time Receive d Time (Source) Location / / Volume Laterality 01/13/2008 12:21 01/13/2008 PM RESIDENTIAL REAL ESTATE APPRAISER 12:26 PM RESIDENTIAL REAL ESTATE APPRAISER Nader Garibay MD LABORATORY Performing Organization Address City/State/ZIP Code Phon e Number [facility] [address] [place] [address] [facility] documented in this encounter Visit Diagnoses Diagnosis Primary localized osteoarthrosis, lower leg - Primary Edema documented in this encounter Care Teams Hearing Consultant Relationship Specialty Start Date End Date Nader Garibay MD PCP - General 01/01/02 10/16/17 documented as of this encounter
--- OUTSIDE RECORDS SUMMARY | 2022-10-07 10:49 | XMS_ITS | Encounter Summary ---
:1935 Author Organization [place] Address [address] [place] [address] Care Team Providers Name Role Phone Nader Garibay MD Primary Care Provider Reason for Visit Reason Onset Date Comments Refill Request 09/29/2008 Encounter Details Date Type Department Care Team Description 09/29/2008 Refill [facility] Nader Garibay MD Refill Request [address] [address] [place] [phone] Social History Tobacco Use Types Packs/Day Years Used Date Smoking Tobacco: Never Alcohol Use Standard Drinks/Week Comments Yes 0 (1 standard drink = 0.6 oz pure alcoho l) SELDOM Sex Assigned at Date Recorded Not on file documented as of this encounter Miscellaneous Notes Telephone Encounter - Abel Chase - 10/03/2008 8:41 AM CST Pt wants 3 month supply, RN can only approve 1 month according to protocol. Due for OV in Nov. None sched. Routed to PCP for approval T BASIC EDUCATION TEACHER documented in this encounter Plan of Treatment Not on filedocumented as of this encounter Visit Diagnoses Diagnosis Edema documented in this encounter Care Teams Transport Engineer Relationship Specialty Start Date End Date Nader Garibay MD PCP - General 01/01/02 10/16/17 documented as of this encounter
--- OUTSIDE RECORDS SUMMARY | 2022-10-07 10:49 | XMS_ITS | Encounter Summary ---
:1935 Author Organization [place] Address [address] [place] [address] Care Team Providers Name Role Phone Nader Garibay MD Primary Care Provider Encounter Details Date Type Department Care Team Description 03/17/2008 Orders Only [facility] Nader Garibay MYALGIA A ND MYOSITIS Clinic [place] MD Bro NOS (Primary Dx) [facility] [address] [phone] Social History Tobacco Use Types Packs/Day Years Used Date Smoking Tobacco: Never Alcohol Use Standard Drinks/Week Comments Yes 0 (1 standard drink = 0.6 oz pure alcoho l) SELDOM Sex Assigned at Date Recorded Not on file documented as of this encounter Plan of Treatment Not on filedocumented as of this encounter Visit Diagnoses Diagnosis Myalgia and myositis, unspecified - Prim levi Mylagia and myositis, unspecified documented in this encounter Care Teams Log Haul Chain Feeder Relationship Specialty Start Date End Date Nader Garibay MD PCP - General 01/01/02 10/16/17 documented as of this encounter
--- OUTSIDE RECORDS SUMMARY | 2022-10-07 10:49 | XMS_ITS | Encounter Summary ---
:1935 Author Organization [place] Address [address] [place] [address]. [place] [address] Care Team Providers Name Role Phone Nader Garibay MD Primary Care Provider Encounter Details Date Type Department Care Team Description 05/30/2008 Orders Only [facility] Abstract, Provider DIAG NOSIS NOT YET Clinic [place] DEFINED ( Primary Dx) [address] [address] Social History Tobacco Use Types Packs/Day Years Used Date Smoking Tobacco: Never Alcohol Use Standard Drinks/Week Comments Yes 0 (1 standard drink = 0.6 oz pure alcoho l) SELDOM Sex Assigned at Date Recorded Not on file documented as of this encounter Plan of Treatment Not on filedocumented as of this encounter Procedures Procedure Name Priority Date/Time Associated Diagnosis Comme [facility] X-RAY KNEE 1-2 VIEWS Routine 01/12/2008 DIAGNOSIS NOT YET DEFINED documented in this encounter Results X-RAY KNEE 1 OR 2 VIEW (01/12/2008) Anatomical Region Laterality Modality Other Specimen (Source) Anatomical Location Collection Method / Collectio n Time Received Time / Laterality Volume 01/12/2008 Narrative This result has an attachment that is no t available. Provider Abstract GENERAL IMAGING documented in this encounter Visit Diagnoses Diagnosis DIAGNOSIS NOT YET DEFINED - Primary documented in this encounter Care Teams Automotive Dismantler Relationship Specialty Start Date End Date Nader Garibay MD PCP - General 01/01/02 10/16/17 documented as of this encounter
--- OUTSIDE RECORDS SUMMARY | 2022-10-07 10:49 | XMS_ITS | Encounter Summary ---
:1935 Author Organization [place] Address [address] [place] [address]. [place] [address] Care Team Providers Name Role Phone Nader Garibay MD Primary Care Provider Reason for Visit Reason Comments Hospital F/U here for post hospital visit c/o bilat leg/knee swelling present since surg Medication Request needs med refills Encounter Details Date Type Department Care Team Description 10/15/2007 Office Visit [facility] Nader Garibay LOC PRIM OSTEOART-L/LEG (Primary Dx); Clinic Tiny Crabtree MD EDEMA; [place] [address] [facility] DEPRESSIVE DISORDER NEC; [address] RESTLESS LEG SYNDROME; [place], [place] ESOPHAGEA L REFLUX; [phone] MIXED HYPERLIPIDEMIA [phone] Social History Tobacco Use Types Packs/Day Years Used Date Smoking Tobacco: Never Alcohol Use Standard Drinks/Week Comments Yes 0 (1 standard drink = 0.6 oz pure alcoho l) SELDOM Sex Assigned at Date Recorded Not on file documented as of this encounter Last Filed Vital Signs Vital Sign Reading Time Taken Comments Blood Pressure 122/76 10/15/2007 11:30 AM PART MAKER Pulse 76 10/15/2007 11:30 AM PART MAKER Temperature - - Respiratory Rate - - Oxygen Saturation - - Inhaled Oxygen Concentration - - Weight 116.6 kg (257 lb) 10/15/2007 11:30 AM PART MAKER Height - - Body Mass Index 42.77 09/16/2007 9:00 AM CDT documented in this encounter Progress Notes Nader Garibay - 11/10/2007 11:55 PM CST HPI: Vielka Pina is a 72 year old female who presents for follow-up. Patient Active Problem List Diagnoses Code ??? 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 EDEMA 782.3 ??? DEPRESSIVE DISORDER NEC 311 ??? ESOPHAGEAL REFLUX 530.81 ??? MIXED HYPERLIPIDEMIA 272.2 ??? OTHER UNSPEC SLEEP APNEA 780.57 ??? OBESITY NOS 278.00 ??? RESTLESS LEG SYNDROME 333.99 Current outpatient prescriptions Medication Sig ??? SENNA 187 MG OR TABS daily as needed ??? VITAMIN TABS OR ONE DAILY ??? EFFEXOR XR# 75 MG OR CP24 1 capsule daily with food ??? LIPITOR 20 MG OR TABS ONE DAILY ??? MIRAPEX 0.5 MG OR TABS 2 tabs Qhs ??? LASIX 20 MG OR TABS TWO TABLETS DAILY IN THE MORNING two tabs in the pm ??? NEXIUM 40 MG OR CPDR 1 CAPSULE DAILY ??? VOLTAREN 75 MG OR TBEC 1 TAB BID ??? OXYCODONE HCL 5 MG OR TABS ONE TABLET EVERY 6 HOURS, NEEDED FOR SEVERE PAIN ??? DOCUSATE SODIUM 100 MG OR CAPS 1 CAPSULE at bedtime ??? POTASSIUM CHLORIDE CR 20 MEQ OR TBCR TWO TABLETS DAILY ??? DISCONTD: VOLTAREN 75 MG OR TBEC 1 TABLET TWICE DAILY Past Medical History Diagnosis Date ??? [...] Paternal Grandmother OVARIAN ??? Heart Paternal Grandfather [place] ??? Depression Son History Social History ??? [...] hematuria EXAM: BP 122/76 Pulse 76 Wt 257 lbs (116.6kg) LMP Postmenopausal GENERAL APPEARANCE: healthy, alert and no distress EYES: EOMI, fundi benign- PERRL HENT: ear canals and TM's normal [...] LOC PRIM OSTEOART-L/LEG (primary encounter diagnosis) Note: Plan: VOLTAREN 75 MG OR TBEC, OXYCODONE HCL 5 MG OR TABS, VOLTAREN 75 MG OR TBEC, OXYCODONE HCL 5 MG OR TABS 782.3 EDEMA Note: Plan: RT DUPLEX EXTREM VENOUS,UNI OR LTD, LASIX 20 MG OR TABS, RT DUPLEX EXTREM VENOUS,UNI OR LTD 311 DEPRESSIVE DISORDER NEC Note: Plan: EFFEXOR XR# 75 MG OR CP24 333.99 RESTLESS LEG SYNDROME Note: Plan: MIRAPEX 0.5 MG OR TABS 530.81 ESOPHAGEAL REFLUX Note: Plan: NEXIUM 40 MG OR CPDR 272.2 MIXED HYPERLIPIDEMIA Note: Plan: LIPITOR 20 MG OR TABS Nader Garibay MD MAKER documented in this encounter Nursing Notes 10/15/2007 11:30 AM CST >> SANA DHALIWAL 10/15/2007 11:39 am Patient presents with: Hospital F/U - here for post hospital visit c/o bilat leg/knee swelling present since surg Medication Request - needs med refills Medications reviewed: No discrepancies identified. Initial BP 122/76 Pulse 76 Wt 257 lbs (116.6kg) LMP Postmenopausal Estimated Body mass index is 42.77 kg/(m^2) as calculated from: Height of 5' 5 (1.651 m) as of 09/16/07 Weight of 257 lbs (116.574 kg) as of this encounter BP completed using cuff size: large Signed by SANA DHALIWAL MA documented in this encounter Plan of Treatment Not on filedocumented as of this encounter Procedures Procedure Name Priority Date/Time Associated Diagnosis Comme [facility] RT DUPLEX Today 10/15/2007 2:01 PM Edema Results for this EXTREM VENOUS,UNI PART MAKER procedure are in OR LTD the results section. documented in this encounter Results RT DUPLEX EXTREM VENOUS,UNI OR LTD (10/15/2007 2:01 PM PART MAKER) Anatomical Region Laterality Modality Other Specimen (Source) Anatomical Collection Method Collection Time Re ceived Time Location / / Volume Laterality 10/15/2007 2:01 PM PART MAKER Impressions 10/16/2007 12:58 PM PART MAKER This procedure was performed at the [facility], which is an [facility] accredited vascular laborato ry. US VENOUS LOWER EXTREMITY UNILATERAL RIG HT ??2006 2:01:00 PM CLINICAL INFORMATION: Right leg edema. FINDINGS: Negative right leg venous ultr asound. 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
--- OUTSIDE RECORDS SUMMARY | 2022-10-07 10:49 | XMS_ITS | Encounter Summary ---
:1935 Author Organization [place] Address [address] [place] [address]. [place] [address] Care Team Providers Name Role Phone Nader Garibay MD Primary Care Provider Encounter Details Date Type Department Care Team Description 10/21/2007 Emergency room Camron Escobar MD [place] [facility] [address] [address] (Wo rk) Social History Tobacco Use Types Packs/Day Years Used Date Smoking Tobacco: Never Alcohol Use Standard Drinks/Week Comments Yes 0 (1 standard drink = 0.6 oz pure alcoho l) SELDOM Sex Assigned at Date Recorded Not on file documented as of this encounter Progress Notes Kassy Escobar R - 10/31/2007 5:21 AM STEEPLECHASE JOCKEY FINAL CHIEF COMPLAINT: I felt a pop in leg. HISTORY OF PRESENT ILLNESS: Annia Sousa is a 72-year-old female who has recently had a right total knee arthroplasty by Dr. Tomas Eckert. The patient has returned today to full activity without any assistive devices such as canes or walkers and while stepping up on one step prior to arrival, she noticed a pop in her right knee area. This radiates up to her right mid thigh without further radiation. She reports since then she has been cautious with attempts at bearing weight, in fact, she has really not made a significant attempt. The patient denies any numbness, tingling, weakness, calf pain, hemoptysis. She has a recent negative ultrasound of her calf. MEDICATIONS: Please see FCIS. This does include pain medication which she has used at home to decrease her pain from severe to moderate. ALLERGIES: Ibuprofen, Augmentin and tetracycline. SOCIAL HISTORY: Presents with her . PAST SURGICAL HISTORY: As above. PAST MEDICAL HISTORY: Sleep apnea. REVIEW OF SYSTEMS: GENERAL: Negative for fever or chills. HEENT: Negative. CARDIOVASCULAR: Negative for chest pain or hemoptysis. RESPIRATORY: Negative for cough, sputum production or shortness of breath. GASTROINTESTINAL: Negative for abdominal pain or ingestion. NEUROLOGIC: Negative. HEMOPOIETIC: Negative. MUSCULOSKELETAL: As per history of present illness. PHYSICAL EXAMINATION: GENERAL: Pleasant 72-year-old female who is awake and alert. VITAL SIGNS: Normal except for mild systolic hypertension. Please see nursing notes. MUSCULOSKELETAL: Postoperative scar. There is no erythema and no warmth. SKIN: There are no signs of fluctuance, abscess formation and cellulitis. VASCULAR: Pulses are normal in the right foot. NEUROLOGIC: Normal sensory function in the right foot. EXTREMITIES: Focal knee evaluation shows no focal bony tenderness to the medial lateral joint line pain. There is a small amount of tenderness at her surgical incision, but it is not terribly impressive. Range of motion: The patient is able to fully extend. Her extensor mechanism intact. Patellar is nontender. I do not appreciate any signs of knee instability. STUDIES: X-rays of her right knee, tib-fib and hip are negative for fracture. HOSPITAL COURSE: The patient was seen by Dr. Eckert, as the patient had already called Dr. Eckert and Dr. Eckert was here at the hospital. The patient was ambulated after I reviewed the x-rays and at this time I believe is medically stable for discharge. At this time the cause of her pain is unknown. It may have been a small ligamentous-type pain around her components or her components causing pain. I do not see signs of ligamentous instability, infectious processes, acute neurovascular abnormalities and doubt acute DVT or pulmonary embolism. Doubt re ferred intraabdominal processes. PLAN: See Dr. Eckert as scheduled. Continue pain medications. Use walker or crutches as needed. FINAL IMPRESSION: Postop pain, right knee. Electronically signed on 10/31/2007 05:20 by KASSY ESCOBAR MD MT: [email or web address] Name: ANNIA SOUSA MRN: [id number] Account: [id number] : 1935 Visit Date: 10/21/2007 Document: [id number] cc: Primary PLECHASE JOCKEY documented in this encounter Plan of Treatment Not on filedocumented as of this encounter Visit Diagnoses Not on filedocumented in this encounter Care Teams Clipper Automatic Relationship Specialty Start Date End Date Nader Garibay MD PCP - General 01/01/02 10/16/17 documented as of this encounter
--- OUTSIDE RECORDS SUMMARY | 2022-10-07 10:49 | XMS_ITS | Encounter Summary ---
:1935 Author Organization [facility] Address [address] [place] [address]. [place] [address] Care Team Providers Name Role Phone Nader Garibay MD Primary Care Provider Encounter Details Date Type Department Care Team Description 02/11/2008 GI Procedure [facility] Endoscopy Nader Garibay, None Ksenia HERNANDEZ [address] [id number] [place] [address] (Wo rk) Social History Tobacco Use Types Packs/Day Years Used Date Smoking Tobacco: Never Alcohol Use Standard Drinks/Week Comments Yes 0 (1 standard drink = 0.6 oz pure alcoho l) SELDOM Sex Assigned at Date Recorded Not on file documented as of this encounter Plan of Treatment Not on filedocumented as of this encounter Procedures Procedure Name Priority Date/Time Associated Diagnosis Comme nts COLONOSCOPY Routine 02/11/2008 10:35 AM Results for this CDT procedure are i n the results section . documented in this encounter Results COLONOSCOPY (02/11/2008 10:35 AM CDT) Component Value Ref Test Analysis Performed At [facility] Range Method Time Signature COLONOSCOPY [facility] RADIOLOGY [facility] Endoscopy Department RESULTS Patient Name: Vielka ring ? Gender: F ? Procedure Date: 02/11/2008 10 :35 AM ? Date of : 1935 ? Age: 72 ? Admit Type: Outpatient ?Room: 6 ? Note Status: Finalized ? Attending MD: Dylan Durán MD ? Pause For The Cause: Pause for the cause Procedure: ? Colonoscopy Indications: ? Average risk screening for colorect al malignant ? neoplasm, S/P sigmoid resection for diverticular disease ? (Dr. Last Navarrete) in 2004 Providers: ? Dylan Durán MD, Hiral Richardson RN Referring : ?Nader Garibay MD Medicines: ? At ropine IV 0.4 mgs, Fentanyl IV 100 mcgs, Versed IV 2 ? mgs Complications: ? No immediate complications Procedure: ? - Prior to the procedure, a History and Physical was ? performed, and patient medication allergies were ? reviewed. The patient is competent. The risks and ? benefits of the procedure and the sedation options and ? risks were discussed with the patient. All questions ? were answered and informed consent was obtained. Patient ? identification and proposed procedure were verified by ? the physician in the endoscopy suite. Mental Status ? Examination: alert and oriented. Airway Examination: ? normal oropharyng eal airway and neck mobility. ? Respiratory Examination: clear to auscultation. CV ? Examination: normal. Prophylactic Antibiotics: The ? patient does not require prophylactic antibiotics. Prior ? Anticoagulants: The patient has taken aspirin, last dose ? was 6 days prior to procedure. ASA Grade Assessment: II ? - A patient with mild systemic disease. After reviewing ? the risks and benefits, the patient was deemed in ? satisfactory condition to undergo the procedure. The ? anesthesia plan was to use minimal sedation / analgesia ? (anxiolysis). Immediately prior to administration of ? medications, the patient was re-assessed for adequacy to ? receive sedatives. The heart rate, respiratory rate, ? oxygen sa turations, blood pressure, adequacy of ? pulmonary ventilation, and response to care were ? monitored throughout the procedure. The physical status ? of the patient was re-assessed after the procedure. ? After obtaining informed consent, the colonoscope was ? passed under direct vision. Throughout the procedure, ? the patie nt's blood pressure, pulse, and oxygen ? saturations were monitored continuously. The ? [id number] was introduced through the ? anus and advanced to th e cecum, identified by ? appendiceal orifice & IC valve. The colonoscopy was ? performed without difficulty. The patient tolerated the ? procedure well. The quality of the prep was fair. The ? prep was adequate to identify polyps. Scope insertion ? time was 11 minutes. Scope withdrawal time was 7 ? minutes. The total duration of the procedure was 18 ? minutes. ? Findings: ? The perianal and digital rectal examinations were nor mal. Pertinent ? negatives include normal sphincte r tone, no palpable rectal lesions and ? no anal lesion or abnormality was detected. There was evidence of a ? patent functional end-to-end colo-colonic anastomos is in the sigmoid ? colon. This was characterized by healthy appearing mu cosa. This was ? traversed. A sessile polyp was found in the mid descending colon. The ? polyp was 4 mm in size. The polyp was removed with a hot snare. ? Resection and retrieval were complete. A single small -mouthed ? diverticulum was found in the descending colon. Otherwise normal colon ? from the anus (including rectal r etroflexion) to the base of the cecum. ? Impression: ?- Patent functional end-to-end colo-colonic anastomosis. ? - A 4 mm polyp in the mid descending colon. Resected and ? retrieved. ? - Diverticulosis descending c olon. ? - The exam was otherwis e normal to the cecum. Recommendation: ?- Discharge patient to home (ambulat ory). ? - Avoid all anticoagulants fo r 5 more days. ? - Await pathology results. ? - High bulk, high fluid diet. ? - Follow up with Dr. Garibay as planned and get annual ? FOBT (fecal occult blood test ). ? - Repeat colonoscopy for screening purposes in 5 years ? or PRN sooner if this polyp is an adenoma or PRN only if ? not. ? - The findings and recommendations were discussed with ? the patient. ? Dylan Durán M.D. Dylan Durán MD Signed Date: 02/11/2008 11:48 AM Number of Addenda: 0 I was physically present for the entire viewing portion of t he exam. Note initiated on 02/11/2008 10:33 AM COLONOSCOPY RADIOLOGY RESULTS Specimen (Source) Anatomical Collection Method Collection Time Re ceived Time Location / / Volume Laterality 02/11/2008 10:35 AM CDT Nader Garibay MD PROCEDURES Performing Organization Address City/State/ZIP Code Phon e Number RADIOLOGY RESULTS documented in this encounter Visit Diagnoses Not on filedocumented in this encounter Care Teams Flange Turner Relationship Specialty Start Date End Date Nader Garibay MD PCP - General 01/01/02 10/16/17 documented as of this encounter
--- OUTSIDE RECORDS SUMMARY | 2022-10-07 10:50 | XMS_ITS | Encounter Summary ---
:1935 Author Organization [facility] Address [address] [place] [id number] Care Team Providers Name Role Phone Nader Garibay MD Primary Care Provider Encounter Details Date Type Department Care Team Description 05/21/2007 Historic Results INTERFACED REPORT Serafin Atwood MD EMERGENCY PHYSIC [address] [phone] (Wo rk) Social History Tobacco Use Types Packs/Day Years Used Date Smoking Tobacco: Never Alcohol Use Standard Drinks/Week Comments Yes 0 (1 standard drink = 0.6 oz pure alcoho l) SELDOM Sex Assigned at Date Recorded Not on file documented as of this encounter Plan of Treatment Not on filedocumented as of this encounter Procedures Procedure Name Priority Date/Time Associated Comments Diagnosis HEMOGRAM DIFFERENTIAL STAT 05/21/2007 6:40 PM Results for this AND PLATELET CDT procedure are i n the results section. UA MACROSCOPIC WITH STAT 05/21/2007 6:40 PM Re sults for this REFLEX TO MICRO CDT procedure ar e in the results section. LIPASE STAT 05/21/2007 6:40 PM Results f or this CDT procedure are i n the results section. COMPREHENSIVE STAT 05/21/2007 6:40 PM Results for this METABOLIC PANEL CDT procedure ar e in the results section. documented in this encounter Results (ABNORMAL) Hemogram differential and platelet (05/21/2007 6:40 PM CDT) [facility] Method Time Signature MCV 86 78 - 100 [facility] fl MCH 28.4 26.5 - [facility] 33.0 pg MCHC 33.1 31.5 - [facility] 36.5 g/dL RDW 15.7 (H) 10.0 - [facility] 15.0 % WBC 6.7 4.0 - [facility] 11.0 10e9/L RBC Count 4.67 3.8 - 5.2 [facility] 10e12/L Hemoglobin 13.3 11.7 - [facility] 15.7 g/dL Hematocrit 40.1 35.0 - M[facility] 47.0 % % Neutrophils 64 40 - 75 % MIS[facility] % Lymphocytes 29 20 - 48 % M[facility] % Monocytes 7 0 - 12 % [facility] % Eosinophils 0 0 - 6 % MIS[facility] % Basophils 0 0 - 2 % [facility] Platelet Count 240 150 - 450 [facility] 10e9/L Absolute 4.3 1.6 - 8.3 [facility] Neutrophil 10e9/L Absolute 2.0 0.8 - 5.3 [facility] Lymphocytes 10e9/L Absolute 0.4 0.0 - 1.3 [facility] Monocytes 10e9/L Absolute 0.0 0.0 - 0.7 [facility] Eosinophils 10e9/L Absolute 0.0 0.0 - 0.2 [facility] Basophils 10e9/L Diff Method Automated [facility] Method Specimen Anatomical Collection Method Collection Time Receive d Time (Source) Location / / Volume Laterality 05/21/2007 6:40 PM 7 7:08 CDT PM CDT Serafin Atwood MD LAB - BLOOD ORDERABLES Performing Organization Address City/State/ZIP Code Phon e Number [facility] (ABNORMAL) Comprehensive metabolic panel (05/21/2007 6:40 PM CDT) P athologist Signature Sodium 139 133 - 144 [facility] mmol/L Potassium 4.4 3.4 - 5.3 [facility] mmol/L Chloride 103 94 - 109 [facility] mmol/L Carbon Dioxide 30 20 - 32 [facility] mmol/L Glucose 85 60 - 99 [facility] mg/dL Urea Nitrogen 24 7 - 30 [facility] mg/dL Creatinine 0.93 0.60 - [facility] 1.30 mg/dL GFR Estimate 64 >60 [facility] mL/min/1.7 m2 GFR Estimate If 77 >60 [facility] Black mL/min/1.7 m2 Calcium 9.4 8.5 - 10.4 [facility] mg/dL AST 51 (H) 0 - 45 U/L [facility] Protein Total 6.9 6.0 - 8.2 [facility] g/dL Anion Gap 6 6 - 17 [facility] mmol/L Albumin 4.4 3.2 - 4.5 [facility] g/dL ALT 53 (H) 0 - 50 U/L [facility] Alkaline 75 40 - 150 [facility] Phosphatase U/L Bilirubin Total 0.3 0.2 - 1.3 [facility] mg/dL Specimen Anatomical Collection Method Collection Time Receive d Time (Source) Location / / Volume Laterality 05/21/2007 6:40 PM 7 7:08 CDT PM CDT Serafin Atwood MD LAB - BLOOD ORDERABLES Performing Organization Address City/State/ZIP Code Phon e Number [facility] Lipase (05/21/2007 6:40 PM CDT) P athologist Signature Lipase 118 20 - 250 U/L [facility] Specimen Anatomical Collection Method Collection Time Receive d Time (Source) Location / / Volume Laterality 05/21/2007 6:40 PM 7 7:08 CDT PM CDT Serafin Atwood MD LAB - BLOOD ORDERABLES Performing Organization Address City/[facility]/ZIP [facility] Phon e Number M[facility] (ABNORMAL) UA macroscopic with reflex to micro (05/21/2007 6:40 PM CDT) Component Value Ref Test Analysis Performed At Patholo gist Range Method Time Signature Source Unspecified [facility] Urine Color Urine Yellow [facility] Appearance Urine Clear [facility] Glucose Urine Negative NEG [facility] mg/dL Bilirubin Urine Negative NEG [facility] Ketones Urine Negative NEG [facility] mg/dL Specific [place] 1.015 1.003 - [facility] Urine 1.035 Blood Urine Negative NEG [facility] pH Urine 7.5 (H) 5.0 - [facility] 7.0 pH Protein Albumin Negative NEG [facility] Urine mg/dL Urobilinogen 0.2 0.2 - [facility] Urine 1.0 EU/dL Nitrite Urine Negative NEG [facility] Leukocyte Negative NEG [facility] Esterase Urine Specimen Anatomical Collection Method Collection Time Receive d Time (Source) Location / / Volume Laterality 05/21/2007 6:40 PM 7 7:08 CDT PM CDT Serafin Atwood MD LAB - URINE ORDERABLES Performing Organization Address City/State/ZIP [facility] Phon e Number MIS[facility] documented in this encounter Visit Diagnoses Not on filedocumented in this encounter Care Teams Last Picker Relationship Specialty Start Date End Date Nader Garibay MD PCP - General 01/01/02 10/16/17 documented as of this encounter
--- OUTSIDE RECORDS SUMMARY | 2022-10-07 10:50 | XMS_ITS | Encounter Summary ---
:1935 Author Organization [facility] Address [address] [place] [address] Care Team Providers Name Role Phone Nader Garibay MD Primary Care Provider Encounter Details Date Type Department Care Team Description 07/17/2007 [facility] Nader Garibay MD [address] [address] [place], [place] [phone] Social History Tobacco Use Types Packs/Day Years Used Date Smoking Tobacco: Never Alcohol Use Standard Drinks/Week Comments Yes 0 (1 standard drink = 0.6 oz pure alcoho l) SELDOM Sex Assigned at Date Recorded Not on file documented as of this encounter Miscellaneous Notes Telephone Encounter - Renee Barraza - 07/22/2007 9:47 AM CDT Advised. Telephone Encounter - Cat Calderon - 07/21/2007 3:37 PM CDT left message for nurse line number Cat Calderon TRACK VEHICLE REPAIRER About below message Telephone Encounter - Nader Garibay - 07/21/2007 9:58 AM CDT Scripts for Lasix and Effexor faxed to preferred pharmacy. Telephone Encounter - Cat Calderon - 07/21/2007 9:46 AM CDT Pt needs refill and pt has stopped the vlotaren. Pt is down to one tab effexor. Pt had to switch appointment to the 07/30/07 was called into work. Cat Calderon LPN Telephone Encounter - Nader Garibay - 07/20/2007 11:12 PM CDT OK to take as she has been - does she need refill? Telephone Encounter - Court Anthony - 07/17/2007 1:37 PM CDT Per pharm fax--- Re: furosemide 20mg 2tab q morning, 1 in the pm Pt says she has been taking 2 tabs AM and 2 tabs PM. Pt has appt 07-22-07 Please advise. documented in this encounter Plan of Treatment Not on filedocumented as of this encounter Visit Diagnoses Diagnosis Edema - Primary Depressive disorder, not elsewhere class ified documented in this encounter Care Teams Vocational Rehabilitation Consultant Relationship Specialty Start Date End Date Nader Garibay MD PCP - General 01/01/02 10/16/17 documented as of this encounter
--- OUTSIDE RECORDS SUMMARY | 2022-10-07 10:50 | XMS_ITS | Encounter Summary ---
:1935 Author Organization [facility] Address [address] [place] [address]. [place] [address] Care Team Providers Name Role Phone Nader Garibay MD Primary Care Provider Encounter Details Date Type Department Care Team Description 05/21/2007 Emergency room Serafin Schuster MD EMERGENCY PHYSIC [place] [phone] (Wo rk) Social History Tobacco Use Types Packs/Day Years Used Date Smoking Tobacco: Never Alcohol Use Standard Drinks/Week Comments Yes 0 (1 standard drink = 0.6 oz pure alcoho l) SELDOM Sex Assigned at Date Recorded Not on file documented as of this encounter Progress Notes Serafin Schuster - 06/07/2007 6:54 AM CDT FINAL CHIEF COMPLAINT: Right upper quadrant abdominal pain radiating to the right flank. HISTORY OF PRESENT ILLNESS: Ms. Annia Snyder is a 71-year-old female who presents to the Emergency Department via private car with her fiance for complaints of right upper quadrant abdominal pain. This has been present for at least five days. The pain is mostly noted in the right upper quadrant of her abdomen but does seem to radiate around the side to the right flank and even down to the right lower part of her back. This is described as an intermittent cramping type pain. It comes and goes without any precipitating factors. It seems to last for a few minutes and then resolves entirely. She seems to notice these at least one episode an hour. She does not relate the pain to meals in any way. She had nausea a few days ago but this resolved. She denied any vomiting. She has no urinary symptoms. She has been moving her bowels normally without diarrhea or blood in her stool. Her appetite has beennormal. She denies fevers. When the pain comes on, she does state it is quite severe and occasionally reaches a 10/10. PAST MEDICAL HISTORY: 1. Diverticulosis with perforated diverticulitis. 2. Arthritis. 3. Sleep apnea. 4. Hiatal hernia. PAST SURGICAL HISTORY: 1. Bowel resection for pneumoperitoneum related to diverticulitis. 2. Hip replacement. ALLERGIES: Tetracycline, another antibiotic, name unknown, caution with ibuprofen. MEDICATIONS: Lasix, Effexor, Voltaren, Nexium, Colace and medication for restless leg, name unknown. SOCIAL HISTORY: The patient occasionally drinks alcohol. She does not smoke. FAMILY HISTORY: Negative. REVIEW OF SYSTEMS: The patient reports occasional constipation. She has had approximately 50 pound weight gain over the last several months. She also recently got engaged. She is under a lot of stressrelated to this. Other than that noted above, the entire review of systems unremarkable. PHYSICAL EXAMINATION: VITAL SIGNS: Temperature 96.1, blood pressure 140/72, pulse 66, respirations 20, 99% on room air. GENERAL: Alert, cooperative, very pleasant 71-year-old female lying in bed. HEENT: Head normocephalic,atraumatic. Pupils equal, round, react to light. Extraocular movements intact. Face symmetric. Oropharynx clear. NECK: Supple. HEART: Regular rate and rhythm, normal S1, S2. LUNGS: Clear to auscultation in all lung perdomo. ABDOMEN: Soft, significantly obese, nontender in all quadrants, specifically no right upper quadrant tenderness. No guarding, no peritoneal signs, no masses. Well-healed abdominal scar. Normoactive bowel sounds are present. BACK: No palpable tenderness. PELVIS: Stable. GENITOURINARY: Deferred. RECTAL: Deferred. EXTREMITIES: Full range of motion of her upper and lower extremities, trace to 1+ pitting edema in upper and lower extremities. NEUROLOGIC: Alert and oriented. Cranial nerves grossly intact. Speech normal. Gait normal. No focal motor or sensory deficits. PSYCHIATRIC: Very pleasant, cooperative, smiling. SKIN: Warm and dry. Edema was noted. No lesions or rash. LABORATORY: CBC was normal including white count. Comprehensive metabolic panel showed normal electrolytes, BUN, creatinine and glucose. AST and ALT were just very slightly elevated. Alkaline phosphatase, bilirubin, total protein and lipase were all normal. Urinalysis showed no evidence of infection and no blood. No ketones. CT of the abdomen and pelvis showed small cysts in the liver. The spleen, pancreas and gallbladder appeared otherwise normal. 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 There was no recurrent pneumoperitoneum. EMERGENCY DEPARTMENT COURSE AND TREATMENT: The patient was seen and evaluated in the main EmergencyDepartment. She remained entirely pain free throughout her stay here. She had no signs of an acute abdomen. A CAT scan was done given her history of pneumoperitoneum with a relatively indolent course: I was able to review her records from her prior visit. At that time she was having abdominal pain forup to 2-1/2 weeks and eventually found to have a pneumoperitoneum related to presumed perforated diverticulitis. The pneumatosis possibly present on her CAT scan is of indeterminate significance. This does not seem to represent her pain in any way. Cholelithiasis or cholecystitis was also considered but was not noted on the CAT scan. There was no pleuritic component, and I thought PE would be unlikely. Kidney stone was also considered. She has no evidence of hydronephrosis and no blood on a urinalysis. Possible ulcer related to a history of hiatal hernia as well as a remote history of a duodenal ulcer was not visualized on her CAT scan. She is currently on prophylaxis with a proton pump inhibitor.I did discuss all these results with her and the possible cause of her pain. At this point in time, I do not have a clear explanation for her pain. This could all be musculoskeletal in origin given itsdiffuse nature. She describes this as a spasm type pain when I went to talk to her a second time. Given this history, possible low dose muscle relaxer would be helpful, I believe. I will send her home with Skelaxin to take as needed only for severe pain. She may otherwise use a medication such as Voltaren and take all her other medications as directed. I did speak to Dr. Araceli Edward who is setter induction heating equipment for Surgery. She agreed that the pneumatosis does not seem to fit with her pattern of pain. She suggested the patient follow up with Dr. Navarrete on Friday ifshe continues no pain. Possibility for HIDA scan performed as an outpatient was discussed. This can be arranged by Dr. Navarrete if he deems appropriate. DISCHARGE PLAN: 1. The patient will contact Dr. Navarrete for follow-up appointment Friday or early next week. 2. Continue all medications as directed. Skelaxin 800 mg t.i.d. as needed for pain or spasms. 3. Return to the Emergency Department for worsening pain, vomiting or fevers. EMERGENCY DEPARTMENT DIAGNOSIS: Right upper quadrant abdominal pain with right flank pain. Electronically signed on 06/07/2007 06:53 by SERAFIN SCHUSTER MD MT: chela Name: ANNIA SNYDER Account: [id number] : 1935 Visit Date: 05/21/2007 Document: [id number] cc: Last Garibay MD documented in this encounter Plan of Treatment Not on filedocumented as of this encounter Visit Diagnoses Not on filedocumented in this encounter Care Teams Car Supplier Relationship Specialty Start Date End Date Nader Garibay MD PCP - General 01/01/02 10/16/17 documented as of this encounter
--- OUTSIDE RECORDS SUMMARY | 2022-10-07 10:50 | XMS_ITS | Encounter Summary ---
:1935 Author Organization [place] Address [address] [place] [address] Care Team Providers Name Role Phone Nader Garibay MD Primary Care Provider Encounter Details Date Type Department Care Team Description 09/23/2007 Historic Results INTERFACED REPORT Tomas Eckert MD [facility] [address] [place] [address] (Wo rk) Social History Tobacco [...] Procedure Name Priority Date/Time Associated Comments Diagnosis POTASSIUM Timed 09/23/2007 4:25 PM Results f or this CHAIRMAN CEO procedure are i n the results section. UA MACROSCOPIC WITH Routine 09/23/2007 9:58 AM Re sults for this REFLEX TO MICRO CHAIRMAN CEO procedure ar e in the results section. MAGNESIUM Routine 09/23/2007 7:50 AM Results f or this CHAIRMAN CEO procedure are i n the results section. HEMOGLOBIN Routine 09/23/2007 7:50 AM Results f or this CHAIRMAN CEO procedure are i n the results section. BASIC METABOLIC PANEL Routine 09/23/2007 7:50 AM Results for this CHAIRMAN CEO procedure are i n the results section. documented in this encounter Results Potassium (09/23/2007 4:25 PM CHAIRMAN CEO) athologist Signature Potassium 3.5 3.4 - 5.3 MISYS mmol/L Specimen Anatomical Collection Method Collection Time Receive d Time (Source) Location / / Volume Laterality 09/23/2007 4:25 PM 7 4:30 CHAIRMAN CEO PM CHAIRMAN CEO Tomas Eckert MD LAB - BLOOD ORDERABLES Performing Organization Address [facility] Phon e Number MISYS UA macroscopic with reflex to micro (09/23/2007 9:58 AM CHAIRMAN CEO) Component Value Ref Test Analysis Performed At Patholo gist Range Method Time Signature Source Catheterized MISYS Urine Color Urine Yellow MISYS Appearance Urine Clear MISYS Glucose Urine Negative NEG MISYS mg/dL Bilirubin Urine Negative NEG MISYS Ketones Urine Negative NEG MISYS mg/dL Specific [place] 1.025 1.003 - MISYS Urine 1.035 Blood Urine Negative NEG MISYS pH Urine 6.0 5.0 - MISYS 7.0 pH Protein Albumin Negative NEG MISYS Urine mg/dL Urobilinogen 0.2 0.2 - MISYS Urine 1.0 EU/dL Nitrite Urine Negative NEG MISYS Leukocyte Negative NEG MISYS Esterase Urine Specimen (Source) Anatomical Collection Method Collection Time Re ceived Time Location / / Volume Laterality 09/23/2007 9:58 AM 7 CHAIRMAN CEO Jeffy Cannon MD LAB - URINE ORDERABLES Performing Organization Address [facility] Phon e Number MISYS (ABNORMAL) Hemoglobin (09/23/2007 7:50 AM CHAIRMAN CEO) P athologist Signature Hemoglobin 9.6 (L) 11.7 - 15.7 MISYS g/dL Specimen (Source) Anatomical Collection Method Collection Time Re ceived Time Location / / Volume Laterality 09/23/2007 7:50 AM 7 CHAIRMAN CEO Tomas Eckert MD LAB - BLOOD ORDERABLES Performing Organization Address [facility]/ZIP [facility] Phon e Number MISYS (ABNORMAL) Basic metabolic panel (09/23/2007 7:50 AM CHAIRMAN CEO) P athologist Signature Sodium 133 133 - 144 MISYS mmol/L Potassium 3.1 (L) 3.4 - 5.3 MISYS mmol/L Chloride 92 (L) 94 - 109 MISYS mmol/L Carbon Dioxide 34 (H) 20 - 32 MISYS mmol/L Glucose 150 (H) 60 - 99 MISYS mg/dL Urea Nitrogen 10 7 - 30 MISYS mg/dL Creatinine 0.98 0.60 - MISYS 1.30 mg/dL GFR Estimate 60 (L) >60 MISYS mL/min/1.7 m2 GFR Estimate If 72 >60 MISYS Black mL/min/1.7 m2 Calcium 8.4 (L) 8.5 - 10.4 MISYS mg/dL Anion Gap 6 6 - 17 MISYS mmol/L Specimen Anatomical Collection Method Collection Time Receive d Time (Source) Location / / Volume Laterality 09/23/2007 7:50 AM 7 CHAIRMAN CEO 10:17 AM CHAIRMAN CEO Jeffy Cannon MD LAB - BLOOD ORDERABLES Performing Organization Address City/State/ZIP Code Phon e Number MISYS Magnesium (09/23/2007 7:50 AM CHAIRMAN CEO) P athologist Signature Magnesium 1.8 1.6 - 2.3 MISYS mg/dL Specimen Anatomical Collection Method Collection Time Receive d Time (Source) Location / / Volume Laterality 09/23/2007 7:50 AM 7 CHAIRMAN CEO 10:18 AM CHAIRMAN CEO Jeffy Cannon MD LAB - BLOOD ORDERABLES Performing Organization Address City/State/ZIP Code Phon e Number MISYS documented in this encounter Visit Diagnoses Not on filedocumented in this encounter Care Teams Barrel Dedenting Machine Operator Relationship Specialty Start Date End Date Nader Garibay MD PCP - General 01/01/02 10/16/17 documented as of this encounter
--- OUTSIDE RECORDS SUMMARY | 2022-10-07 10:50 | XMS_ITS | Encounter Summary ---
:1935 Author Organization [place] Address [address] [place] [address] Care Team Providers Name Role Phone Nader Garibay MD Primary Care Provider Encounter Details Date Type Department Care Team Description 07/16/2007 Orders Only [facility] Nader Garibay DIAGNOSIS NOT YET Clinic [place] MD Bro DEFINED (Primary Dx) [place] [address] [phone] Social History Tobacco Use Types Packs/Day Years Used Date Smoking Tobacco: Never Alcohol Use Standard Drinks/Week Comments Yes 0 (1 standard drink = 0.6 oz pure alcoho l) SELDOM Sex Assigned at Date Recorded Not on file documented as of this encounter Plan of Treatment Not on filedocumented as of this encounter Procedures Procedure Name Priority Date/Time Associated Diagnosis Comme [facility] LT DUPLEX LO EXTREM ART Routine 07/10/2007 DIAGNOSIS NOT YET DEFINED UNILAT/LTD documented in this encounter Results LT DUPLEX LO EXTREM ART UNILAT/LTD (07/10/2007) Anatomical Region Laterality Modality Other Specimen (Source) Anatomical Location Collection Method / Collectio n Time Received Time / Laterality Volume 07/10/2007 Narrative This result has an attachment that is no t available. Nader Garibay MD [employer] [employer] documented in this encounter Visit Diagnoses Diagnosis DIAGNOSIS NOT YET DEFINED - Primary documented in this encounter Care Teams Recording Studio Intern Relationship Specialty Start Date End Date Nader Garibay MD PCP - General 01/01/02 10/16/17 documented as of this encounter
--- OUTSIDE RECORDS SUMMARY | 2022-10-07 10:50 | XMS_ITS | Encounter Summary ---
:1935 Author Organization [place] Address [address] [place] [address] Care Team Providers Name Role Phone Nader Garibay MD Primary Care Provider Encounter Details Date Type Department Care Team Description 09/22/2007 Historic Results INTERFACED REPORT Tomas Eckert MD [facility] [address] [place] [address] (Wo rk) Social History Tobacco [...] Name Priority Date/Time Associated Diagnosis Comme nts ELECTROLYTE PANEL Routine 09/22/2007 7:55 AM Resu lts for this BOMB SQUAD OFFICER procedure are i n the results section. HEMOGLOBIN Routine 09/22/2007 7:55 AM Results f or this BOMB SQUAD OFFICER procedure are i n the results section. documented in this encounter Results (ABNORMAL) Hemoglobin (09/22/2007 7:55 AM BOMB SQUAD OFFICER) P athologist Signature Hemoglobin 10.3 (L) 11.7 - 15.7 MISYS g/dL Specimen (Source) Anatomical Collection Method Collection Time Re ceived Time Location / / Volume Laterality 09/22/2007 7:55 AM 7 BOMB SQUAD OFFICER Tomas Eckert MD LAB - BLOOD ORDERABLES Performing Organization Address City/State/ZIP Code Phon e Number MISYS (ABNORMAL) Electrolyte panel (09/22/2007 7:55 AM BOMB SQUAD OFFICER) P athologist Signature Sodium 135 133 - 144 MISYS mmol/L Potassium 3.8 3.4 - 5.3 MISYS mmol/L Chloride 99 94 - 109 MISYS mmol/L Carbon Dioxide 33 (H) 20 - 32 MISYS mmol/L Anion Gap 4 (L) 6 - 17 MISYS mmol/L Specimen (Source) Anatomical Collection Method Collection Time Re ceived Time Location / / Volume Laterality 09/22/2007 7:55 AM 7 BOMB SQUAD OFFICER Tomas Eckert MD LAB - BLOOD ORDERABLES Performing Organization Address City/State/ZIP Code Phon e Number MISYS documented in this encounter Visit Diagnoses Not on filedocumented in this encounter Care Teams Inclusion Intern Relationship Specialty Start Date End Date Nader Garibay MD PCP - General 01/01/02 10/16/17 documented as of this encounter
--- OUTSIDE RECORDS SUMMARY | 2022-10-07 10:50 | XMS_ITS | Encounter Summary ---
:1935 Author Organization [place] Address [address] [place] [address] Care Team Providers Name Role Phone Nader Garibay MD Primary Care Provider Reason for Visit Reason Comments Edema c/o increased sewlling in le gs/feet over the past few weeks Encounter Details Date Type Department Care Team Description 04/27/2007 Office Visit [facility] Nader Garibay FABIANO (Primary Dx) [place] Edwar Crabtree MD [address] [phone] Social History Tobacco Use Types Packs/Day Years Used Date Smoking Tobacco: Never Alcohol Use Standard Drinks/Week Comments Yes 0 (1 standard drink = 0.6 oz pure alcoho l) SELDOM Sex Assigned at Date Recorded Not on file documented as of this encounter Last Filed Vital Signs Vital Sign Reading Time Taken Comments Blood Pressure 122/72 04/27/2007 10:30 AM CDT Pulse 76 04/27/2007 10:30 AM CDT Temperature - - Respiratory Rate - - Oxygen Saturation - - Inhaled Oxygen Concentration - - Weight 119.3 kg (263 lb) 04/27/2007 10:30 AM CDT Height 165.1 cm (5' 5) 04/27/2007 10:30 AM CDT Body Mass Index 43.77 04/27/2007 10:30 AM CDT documented in this encounter Progress Notes Nader Garibay - 04/27/2007 1:11 PM CDT HPI: Vielka Snyder is a 71 year old female who presents for evaluation of continued swollen feet. The Lasix at 20mg daily did not offer much benefit, she went back to HCTZ, which has also not helped. Her stress thall showed no evidence of ischemia, normal EF. She has [place], is currently in midst of adjustment of her CPAP mask. Patient Active Problem List Diagnoses Code ??? 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 EDEMA 782.3 ??? DEPRESSIVE DISORDER NEC 311 ??? ESOPHAGEAL REFLUX 530.81 ??? MIXED HYPERLIPIDEMIA 272.2 ??? OTHER UNSPEC SLEEP APNEA 780.57 ??? OBESITY NOS 278.00 ??? RESTLESS LEG SYNDROME 333.99 Current outpatient prescriptions Medication Sig ??? LASIX 20 MG OR TABS TWO TABLETS DAILY IN THE MORNING ??? POTASSIUM CHLORIDE CR 20 MEQ OR TBCR TWO TABLETS DAILY ??? VOLTAREN 75 MG OR TBEC 1 TABLET TWICE DAILY ??? MIRAPEX 0.5 MG OR TABS 2 tabs Qhs ??? NEXIUM 40 MG OR CPDR 1 CAPSULE DAILY ??? EFFEXOR XR# 75 MG OR CP24 3 capsules daily with food ??? LIPITOR 20 MG OR TABS 1 tab PO QD (Once per day) ??? NYSTATIN (TOPICAL) 515379 U/GM EX CREA APPLY TWICE DAILY Past Medical History Diagnosis Date [...] ruptured diverticulum. ??? Pelvis/hip joint surgery unlisted Family History Problem Relation ??? Stroke Mother D ; AGE 88 ??? Cancer Father D ; AGE 59 LUNG CANCER ??? Cancer Sister KIDNEY ??? Gynecology Sister ENDOMETRIOSIS ??? Family History Negative Sister ??? Cancer Paternal Grandmother OVARIAN ??? Heart Paternal Grandfather MA ??? Depression Son History Social History ??? Marital Status: Spouse Name: N/A Number of Children: 2 ??? Years of Education: N/A Occupational History ??? Retired Social History Main Topics ??? Tobacco Use: Never ??? Alcohol Use: Yes SELDOM ??? Drug Use: No ??? Sexually Active: Not Currently Other Topics Concern ??? Not on file Social History Narrative ??? No narrative on file ROS: CONSTITUTIONAL:Continues to gain weight I: NEGATIVE for worrisome rashes, moles or lesions E/M: NEGATIVE for ear, mouth and throat problems R: NEGATIVE for significant cough or SOB CV: NEGATIVE for chest pain, palpitations or peripheral edema GI: NEGATIVE for nausea, abdominal pain, heartburn, or change in bowel habits : NEGATIVE for frequency, dysuria, or hematuria EXAM: BP 122/72 Pulse 76 Ht 5' 5 (1.65m) Wt 263 lbs (119.3kg) LMP Postmenopausal GENERAL APPEARANCE: healthy, alert and no distress RESP: lungs clear to auscultation - no rales, rhonchi or wheezes CV: regular rates and rhythm, normal S1 S2, no S3 or S4 and no murmur, click or rub - ABDOMEN: soft, nontender, no HSM or masses and bowel sounds normal MS: 1-2+ edema bilateral lower extremities. Assessment: 782.3 EDEMA (primary encounter diagnosis) Note: WIll incerase lasix to 40mg qday, and check for pulm HTN with regular ECHO Plan: CARDIAC ECHO (METRO), LASIX 20 MG OR TABS, POTASSIUM CHLORIDE CR 20 MEQ OR TBCR Nader Garibay MD documented in this encounter Nursing Notes 04/27/2007 10:30 AM CDT >> SANA DHALIWAL 04/27/2007 10:33 am Patient presents with: Edema - c/o increased sewlling in legs/feet over the past few weeks Medications reviewed: No discrepancies identified. Initial BP 122/72 Pulse 76 Ht 5' 5 (1.65m) Wt 263 lbs (119.3kg) LMP Postmenopausal Body mass index is 43.77 kg/(m^2). BP completed using cuff size: large Signed by SANA DHALIWAL MA documented in this encounter Plan of Treatment Not on filedocumented as of this encounter Visit Diagnoses Diagnosis Edema - Primary documented in this encounter Care Teams Management Rep Relationship Specialty Start Date End Date Nader Garibay MD PCP - General 01/01/02 10/16/17 documented as of this encounter
--- OUTSIDE RECORDS SUMMARY | 2022-10-07 10:50 | XMS_ITS | Encounter Summary ---
:1935 Author Organization [place] Address [address] [place] [address] Care Team Providers Name Role Phone Nader Garibay MD Primary Care Provider Encounter Details Date Type Department Care Team Description 07/01/2007 Telephone [facility] Nader Garibay MD [address] [address] [place], [place] [phone] Social History Tobacco Use Types Packs/Day Years Used Date Smoking Tobacco: Never Alcohol Use Standard Drinks/Week Comments Yes 0 (1 standard drink = 0.6 oz pure alcoho l) SELDOM Sex Assigned at Date Recorded Not on file documented as of this encounter Plan of Treatment Not on filedocumented as of this encounter Visit Diagnoses Not on filedocumented in this encounter Care Teams Senior Actuarial Analyst Relationship Specialty Start Date End Date Nader Garibay MD PCP - General 01/01/02 10/16/17 documented as of this encounter
--- OUTSIDE RECORDS SUMMARY | 2022-10-07 10:50 | XMS_ITS | Encounter Summary ---
:1935 Author Organization [facility] Address [address] [place] [address] Care Team Providers Name Role Phone Nader Garibay MD Primary Care Provider Reason for Visit Reason Onset Date Comments Refill Request 09/14/2007 Encounter Details Date Type Department Care Team Description 09/14/2007 Refill [facility] Nader Garibay MD Refill Request [address] [address] [place] [address] [phone] Social History Tobacco Use Types Packs/Day Years Used Date Smoking Tobacco: Never Alcohol Use Standard Drinks/Week Comments Yes 0 (1 standard drink = 0.6 oz pure alcoho l) SELDOM Sex Assigned at Date Recorded Not on file documented as of this encounter Miscellaneous Notes Telephone Encounter - Sandrita Estevez - 09/14/2007 4:31 PM CDT Medication filled per standing order. Tasneem Kirkland RN documented in this encounter Plan of Treatment Not on filedocumented as of this encounter Visit Diagnoses Diagnosis Edema documented in this encounter Care Teams Wet End Supervisor Relationship Specialty Start Date End Date Nader Garibay MD PCP - General 01/01/02 10/16/17 documented as of this encounter
--- OUTSIDE RECORDS SUMMARY | 2022-10-07 10:50 | XMS_ITS | Encounter Summary ---
:1935 Author Organization [place] Address [address] [place] [address] Care Team Providers Name Role Phone Nader Garibay MD Primary Care Provider Reason for Visit Reason Onset Date Comments Lab Only 08/27/2007 Encounter Details Date Type Department Care Team Description 08/27/2007 Telephone [facility] Nader Garibay MD Lab Only [address] [address] [place] [phone] Social History Tobacco Use Types Packs/Day Years Used Date Smoking Tobacco: Never Alcohol Use Standard Drinks/Week Comments Yes 0 (1 standard drink = 0.6 oz pure alcoho l) SELDOM Sex Assigned at Date Recorded Not on file documented as of this encounter Miscellaneous Notes Telephone Encounter - Macy Rivas - 08/27/2007 10:48 AM CDT Left message to contact nurse line. Telephone Encounter - Nader Garibay - 08/27/2007 10:38 AM CDT Future orders placed in EPIC. Telephone Encounter - Bryanna Del Angel - 08/27/2007 10:26 AM CDT Pt stopped in stating that [facility] was unable to draw blood and would like to have [facility] draw the blood. 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
--- OUTSIDE RECORDS SUMMARY | 2022-10-07 10:50 | XMS_ITS | Encounter Summary ---
:1935 Author Organization [facility] Address [address] [place] [address] Care Team Providers Name Role Phone Nader Garibay MD Primary Care Provider Reason for Visit Reason Comments Edema LASIX NOT HELPING WITH SWELL ING Encounter Details Date Type Department Care Team Description 07/01/2007 Office Visit [facility] Joshua Morales, EDEMA (Primary Dx); Clinic Tiny HERNANDEZ OTHER UNSPEC SLEEP APNEA [facility] [address] [phone] Social History Tobacco Use Types Packs/Day Years Used Date Smoking Tobacco: Never Alcohol Use Standard Drinks/Week Comments Yes 0 (1 standard drink = 0.6 oz pure alcoho l) SELDOM Sex Assigned at Date Recorded Not on file documented as of this encounter Last Filed Vital Signs Vital Sign Reading Time Taken Comments Blood Pressure 148/76 07/01/2007 10:15 AM CDT Pulse 72 07/01/2007 10:15 AM CDT Temperature - - Respiratory Rate 16 07/01/2007 10:15 AM CDT Oxygen Saturation - - Inhaled Oxygen Concentration - - Weight 119.3 kg (263 lb) 07/01/2007 10:15 AM CDT Height - - Body Mass Index 43.77 04/27/2007 10:30 AM CDT documented in this encounter Progress Notes Joshua Morales - 07/01/2007 10:16 AM CDT S: Vielka Snyder IS A 71 year old female WHO PRESENTS TO THE CLINIC TODAY TO FOLLOW-UP ON HER MOST RECENT CONCERN TODAY REVOLVE AROUND HER PEDAL EDEMA WELL WEIGHT GAIN. She takes 80mg po qd ofLasix for the last several weeks. She denies shortness of breath, chest pain, orthopenia, paroxymal nocturnal dyspnea, palpitations, diaphoresis. She has recently had a negative stress GXT as well as ECho, see copy in chart. THE MOST RECENT CLINIC VISIT WAS REVIEWED WITH THE PATIENT. Vielka IS COMPLAINING TODAY OF THE FOLLOWING ISSUES OUTLINED IN THE REVIEW OF SYSTEMS BELOW. A COMPLETE REVIEW OF SYSTEMS WAS DONE WITH THIS PATIENT IN REGARDS TO Vielka COMPLAINTS: Skin: negative Eyes: negative Ears/Nose/Throat: negative Respiratory: negative Cardiovascular: negative Gastrointestinal: negative Genitourinary: negative Musculoskeletal: negative Neurologic: negative Psychiatric: negative Hematologic/Lymphatic/Immunologic: negative Endocrine: negative Past Medical History Diagnosis Date ??? MIXED [...] ruptured diverticulum. ??? Pelvis/hip joint surgery unlisted Current Outpatient Rx Name Route Sig Dispense Refill ??? DOCUSATE SODIUM 100 MG OR CAPS Oral 2 CAPSULES at bedtime ??? UNKNOWN MED DOSAGE estro vital nutrients (vitamin supplement) 2 tab daily ??? UNKNOWN MED DOSAGE Diabetic Health Pack 1 pkg daily in the morning ??? LASIX 20 MG OR TABS Oral TWO TABLETS DAILY IN THE MORNING 1 PM MONTH 1 ??? POTASSIUM CHLORIDE CR 20 MEQ OR TBCR Oral TWO TABLETS DAILY MONTH 1 YEAR ??? VOLTAREN 75 MG OR TBEC Oral 1 TABLET TWICE DAILY 180 3 ??? MIRAPEX 0.5 MG OR TABS Oral 2 tabs Qhs 3 mo 1 ??? NEXIUM 40 MG OR CPDR Oral 1 CAPSULE DAILY 90 3 ??? EFFEXOR XR# 75 MG OR CP24 Oral 3 capsules daily with food 3 mo 3 ??? LIPITOR 20 MG OR TABS Oral 1 tab PO QD (Once per day) 3 mo 1 Allergies as of 07/01/2007 - reviewed 05/28/2007 Allergen Reaction Noted ??? Ibuprofen 09/27/2002 ??? Tetracycline 09/28/2002 ??? Augmentin Nausea and Vomiting 04/03/2006 PHYSICAL EXAM: BP 148/76 Pulse 72 Resp 16 Wt 263 lbs (119.3kg) LMP Postmenopausal General: Patient in no apparent distress. Eyes: Normal conjunctiva and lids. Pupils round and reactive to light. Ears, Nose, Mouth and Throat: Bilateral external auditory canals and tympanic membranes clear. Oropharynx with no erythema, edema, or exudate. Neck: No abnormal masses, or asymmetry. No thryromegaly or tenderness of thyroid. Respiratory: Normal respiratory effort. Lungs are clear to auscultation bilaterally. Cardiovascular: Palpation of heart shows normal location and size. Heart sounds are regular rate and rhythm without murmur, rub, or gallop. Abdomen: Normal bowel sounds in all four quadrants. Soft, nontender, with no masses, no hepatosplenomegaly and no hernia. Musculoskeletal: Normal gait and station. Inspection and palpation of digits and nails shows no clubbing, cyanosis with 1-2+ edema. Neurologic: Cranial Nerves II-XII intact. Psychiatric: Normal judgment and insight. Oriented to person, place, and time. Mood and affect within normal limits. ASSESSMENT/PLAN: 782.3 EDEMA (primary encounter diagnosis) Note: as ordered Plan: TSH W/FREE T4 REFLEX, A.M.A. HEPATIC PANEL, A.M.A. BASIC METABOLIC PANEL CUT BACK ON NSAIDS WELL EFFEXOR ADVISED TO REDUCE TO 2 PO QDAY. 780.57 OTHER UNSPEC SLEEP APNEA Note: Plan: stay on CPAP 25 minutes spent with this patient discussing treatment options as well as side effects. documented in this encounter Nursing Notes 07/01/2007 10:15 AM CDT >> RENEE BARRAZA 07/01/2007 10:18 am Patient presents with: Edema - LASIX NOT HELPING WITH SWELLING Medications reviewed: No discrepancies identified. Initial BP 148/76 Pulse 72 Resp 16 Wt 263 lbs (119.3kg) LMP Postmenopausal Estimated Body mass index is 43.77 kg/(m^2) as calculated from: Height of 5' 5 (1.651 m) as of 04/27/07 Weight of 263 lbs (119.296 kg) as of this encounter BP completed using cuff size: large Signed by Renee Barraza RN documented in this encounter Plan of Treatment Not on filedocumented as of this encounter Procedures Procedure Name Priority Date/Time Associated Diagnosis Comme nts HCL HEPATIC PANEL Routine 07/01/2007 10:41 AM Edema Res ults for this CDT procedure are i n the results section. HCL BASIC METABOLIC Routine 07/01/2007 10:41 AM Edema R esults for this PANEL CDT procedure are i n the results section. HCL TSH W/FREE T4 Routine 07/01/2007 10:41 AM Edema Res ults for this REFLEX CDT procedure are i n the results section. documented in this encounter Results (ABNORMAL) A.M.A. BASIC METABOLIC PANEL (07/01/2007 10:41 AM CDT) P athologist Signature Sodium 141 133 - 144 [facility] mmol/L [facility] Potassium 4.3 3.4 - 5.3 [facility] mmol/L [facility] Chloride 98 94 - 109 [facility] mmol/L [facility] Carbon Dioxide 33 (H) 20 - 32 [facility] mmol/L [facility] Anion Gap 10 6 - 17 [facility] mmol/L [facility] Glucose 145 (H) 60 - 99 [facility] mg/dL [facility] Urea Nitrogen 29 7 - 30 [facility] mg/dL [facility] Creatinine 1.19 0.60 - [facility] 1.30 mg/dL [facility] GFR Estimate 48 (L) >60 [facility] mL/min/1.7 [facility]2 [facility] GFR Estimate If 58 (L) >60 [facility] Black mL/min/1.7 [facility] m2 LAB Calcium 9.5 8.5 - 10.4 [facility] mg/dL [facility] Specimen Anatomical Collection Method Collection Time Receive d Time (Source) Location / / Volume Laterality 07/01/2007 10:41 07/01/2007 AM CDT 10:46 AM CDT Joshua Morales MD LABORATORY Performing Organization Address City/State/ZIP Code Phon e Number [facility] [address] [place] [phone] [facility] (ABNORMAL) A.M.A. HEPATIC PANEL (07/01/2007 10:41 AM CDT) athologist Signature Bilirubin 0.0 0.0 - 0.3 [place] Conjugated mg/dL [facility] Bilirubin Delta 0.0 0.0 - 0.4 [place] mg/dL [facility] Bilirubin Total 0.4 0.2 - 1.3 [place] mg/dL [facility] Albumin 4.3 3.2 - 4.5 [place] g/dL [facility] Protein Total 7.0 6.0 - 8.2 [place] g/dL [facility] Alkaline 76 40 - 150 [place] Phosphatase U/L [facility] ALT 54 (H) 0 - 50 U/L [facility] AST 42 0 - 45 U/L [facility] Specimen Anatomical Collection Method Collection Time Receive d Time (Source) Location / / Volume Laterality 07/01/2007 10:41 07/01/2007 AM CDT 10:46 AM CDT Joshua Morales MD LABORATORY Performing Organization Address City/State/ZIP Code Phon e Number [facility] [address] [place] [phone] [facility] TSH W/FREE T4 REFLEX (07/01/2007 10:41 AM CDT) athologist Signature TSH 3.75 0.4 - 5.0 [facility] mU/L CLINIC LAB Specimen Anatomical Collection Method Collection Time Receive d Time (Source) Location / / Volume Laterality 07/01/2007 10:41 07/01/2007 AM CDT 10:46 AM CDT Joshua Morales MD LABORATORY Performing Organization Address City/State/ZIP Code Phon e Number [facility] [address] [place] [phone] [facility] documented in this encounter Visit Diagnoses Diagnosis Edema - Primary Unspecified sleep apnea documented in this encounter Care Teams Rehabilitation Counsellor Relationship Specialty Start Date End Date Nader Garibay MD PCP - General 01/01/02 10/16/17 documented as of this encounter
--- OUTSIDE RECORDS SUMMARY | 2022-10-07 10:50 | XMS_ITS | Encounter Summary ---
:1935 Author Organization [facility] Address [address] [place] [address] Care Team Providers Name Role Phone Nader Garibay MD Primary Care Provider Encounter Details Date Type Department Care Team Description 04/29/2007 Office Visit [facility] [place] (Primary Dx) [address] [phone] Social History Tobacco Use Types Packs/Day Years Used Date Smoking Tobacco: Never Alcohol Use Standard Drinks/Week Comments Yes 0 (1 standard drink = 0.6 oz pure alcoho l) SELDOM Sex Assigned at Date Recorded Not on file documented as of this encounter Progress Notes Branid De Jesus - 04/29/2007 10:52 AM CDT . documented in this encounter Plan of Treatment Not on filedocumented as of this encounter Procedures Procedure Name Priority Date/Time Associated Diagnosis Comme [facility] ECHO HEART Routine 04/29/2007 9:24 AM Results for this XTHORACIC,COMPLETE, CDT procedur e are in W/O DOPPLER the results section. documented in this encounter Results ECHO HEART,COMPLETE (04/29/2007 9:24 AM CDT) [facility] Method Time Signature [facility] Interpretation Summary RESULTS The study was technically difficult. There is no comparison study available. The left ventricle is normal in structure, function and size . The visual ejection fraction is estimated at 55-60%. The transmitral sp ectral Doppler flow pattern is normal for age. The left atrium is mildly dilated. There is trace mitral regurgitation. There is trace tricuspid regurgi tation. Right ventricular systolic pressure is normal. The rhythm was norm al sinus. PatientHeight: 65 in PatientWeight: 263 lbs BSA 2.2 m^2 Left Ventricle The left ventricle is normal in structure, function and size . There is normal left ventricular wall thickness. The transmitral spectral Doppler flow pattern is normal for age. The visual ejection fraction is estimated at 55-60%. No regional wall motion abnormalities noted. Right Ventricle Normal right ventricle structure and size. Atria The left atrium is mildly dilated. Right atrial size is normal. Intact atrial septum. Mitral Valve The mitral valve is normal in structure and function. There is no evidence of mitral valve prolapse. There is trace mitral regurgitation. Tricuspid Valve The tricuspid valve is normal in structure and function. There is trace tricuspid regurgitation. Right ventricular systolic pressure is normal. Aortic Valve The aortic valve is normal in structure and function. The aortic valve is trileaflet. No aortic regurgitation is present. Pulmonic Valve The pulmonic valve is normal in structure and function. Vessels Normal size aorta. The IVC is normal in size and reactivity with respirat ion, suggesting normal central venous pressure. The pulmonary artery is not well visualized, but is probably normal size. Pericardial/Pleural The pericardium appears normal. There is no pericardial effusion. Rhythm The rhythm was normal sinus. Procedure Complete Echo Adult. MMode 2D Measurements & Calculations IVSd: 1.1 cm LVIDd: 5.6 cm LVIDs: 3.4 cm LVPWd: 1.2 cm FS: 40 % LV mass(C)d: 267 grams Ao root diam: 2.5 cm LA dimension: 4.3 cm LA/Ao: 1.7 Doppler Measurements & Calculations TR Max P mmHg Interpreting Physician: ??Joaquin Toure MD electronically signed on 04-29-2007 13:40:22 Anatomical Region Laterality Modality Other Specimen (Source) Anatomical Collection Method Collection Time Re ceived Time Location / / Volume Laterality 04/29/2007 9:24 AM CDT Nader Garibay MD SPECIAL IMAGING STUDIES documented in this encounter Visit Diagnoses Diagnosis Edema - Primary documented in this encounter Care Teams Surgical Asst Relationship Specialty Start Date End Date Nader Garibay MD PCP - General 01/01/02 10/16/17 documented as of this encounter
--- OUTSIDE RECORDS SUMMARY | 2022-10-07 10:50 | XMS_ITS | Encounter Summary ---
:1935 Author Organization [facility] Address [address] [place] [address]. [place] [address] Care Team Providers Name Role Phone Nader Garibay MD Primary Care Provider Encounter Details Date Type Department Care Team Description 09/21/2007 Results Only [facility] Babar, [facility] Hospital Results MD Ivan [facility] [address] [place] [address] [place], [place] [phone] (Wo rk) Social History Tobacco Use Types Packs/Day Years Used Date Smoking Tobacco: Never Alcohol Use Standard Drinks/Week Comments Yes 0 (1 standard drink = 0.6 oz pure alcoho l) SELDOM Sex Assigned at Date Recorded Not on file documented as of this encounter Plan of Treatment Not on filedocumented as of this encounter Procedures Procedure Name Priority Date/Time Associated Diagnosis Comme [facility] RT X-RAY KNEE 1 Routine 09/21/2007 3:06 PM Re sults for this OR 2 VIEW HOE WORKER procedure are i n the results section. documented in this encounter Results RT X-RAY KNEE 1 OR 2 VIEW (09/21/2007 3:06 PM HOE WORKER) Anatomical Region Laterality Modality Other Specimen (Source) Anatomical Collection Method Collection Time Re ceived Time Location / / Volume Laterality 09/21/2007 3:06 PM HOE WORKER Impressions 09/21/2007 3:28 PM HOE WORKER KNEE1-2 VIEW PORTABLE RIGHT Sep 21, 2007 3:06:00 PM HISTORY: post op eval post tka FINDINGS: ?Total right knee arthropl asty with overlying skin kandice and drainage tubing. Tomas Eckert MD GENERAL IMAGING documented in this encounter Visit Diagnoses Not on filedocumented in this encounter Care Teams Brewmaster Relationship Specialty Start Date End Date Nader Garibay MD PCP - General 01/01/02 10/16/17 documented as of this encounter
--- OUTSIDE RECORDS SUMMARY | 2022-10-07 10:50 | XMS_ITS | Encounter Summary ---
:1935 Author Organization [facility] Address [address] [place] [address]. [place] [address] Care Team Providers Name Role Phone Nader Garibay MD Primary Care Provider Encounter Details Date Type Department Care Team Description 09/23/2007 Historic Notes INTERFACED REPORT Interface, Transcript on, Social History Tobacco Use Types Packs/Day Years Used Date Smoking Tobacco: Never Alcohol Use Standard Drinks/Week Comments Yes 0 (1 standard drink = 0.6 oz pure alcoho l) SELDOM Sex Assigned at Date Recorded Not on file documented as of this encounter Progress Notes Interface, Principal Scientist - 02/04/2011 7:57 AM CDT SW: D: Following for d/c planning. Pt. accepted at [facility] and at [facility]. Met with pt. who said she wants to go to [facility]. Called [facility]. [place] and released bed. Called at [facility] who said pt. is accepted for [facility]. but they need nursing assessment today. Told d/c time is 11:30 via w/c and this works for them. Asked pt.'s RN to fill out RN assess. A: Pt. lethargic but oriented. P: Fax nursing assessment when completed and fax MD orders tomorrow. ERICK Loyd Addendum Section 23-Sep-2007 13:54 Entered By: FREDO BANDA Faxed nursing assessment to [facility]. Will await their final confirmation. ERICK Loyd [Signature] Author:FREDO BANDA (ERICK) [Signed 23-Sep-2007 13:54] Interface, Principal Scientist - 02/04/2011 7:56 AM CDT General Information General Information - Type of Note Initial Evaluation - Patient Profile Review Yes - Onset Date 21-Sep-07 - Referring Physician Tomas Eckert - Patient/Family Goals To return home when able - History of Present Problem s/p R TKA on 09/21/07 - Treatment Diagnosis Decline in ADL's - Precautions/Limitations Fall precautions; Oxygen therapy; 3L O2 - Weight Bearing Status Weight bearing as tolerated; R LE - Observations R LE pain at rest 12/27 Cognitive Cognitive Status - Orientation Orientation to person, place and time - Level of Consciousness Alert; Lethargic/Somnolent; groggry from pain meds - Follows Commands and 75% of the time; Able to follow multi-step Answers Questions instructions - Personal Safety/Judgement Intact - Sequencing Intact Pain Presence of pain - Do you have pain now Yes (See Assessment and Intervention Flowsheet) Range of Motion ROM - ROM ROM was appropriate in all areas Strength Strength - Strength Strength was appropriate in all areas ADL: Prior Level of Functioning Self Care: Prior Level of Functioning - Comments: Patient had diffculty prior to surgery w/ janell/doff socks due to knee pain and independent w/ most everything else. Has tub/shower combo w/ bath chair. ADL: Current Level of Functioning Self Care: Current Level of Functioning - Eating: Set-up or supervision only - Dressing: Lower Body: Total (dependent) Higher Level ADLs Higher Level ADLs - Comments: Patient lives in a 4 level house w/ hus (just 2 weeks ago). 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 Functional Performance Bed Mobility - Sit to supine: Moderate assist, 1 person assist Transfer - Transfer: Moderate assist, 1 person assist - Stand to Sit: Moderate assist, 1 person assist - Bed to Chair: Minimal assist, 2 person assist - Chair to bed: Minimal assist, 2 person assist Balance - Balance: Independent - Sitting: Dynamic: Stand by assist - Standing: Static: Minimal assist, 1 person assist - Standing: Dynamic: Moderate assist, 2 person assist Comments: Patient used ww to transfer w/c to EOB, assist to move R LE w/ encouragment as patient limited due to pain and reporting that it is too hard. Treatment Plan Treatments - Treatments ADL Retraining, Functional Transfer Training Prognosis/Impression Impression - Skilled Criteria for Yes Therapy Intervention Met - Assessment Pt is a 71 yo female admitted for R TKA and presents below baseline level secondary to decreased endurance, decreased functional mobility, increased weakness, impaired balance and poor activity tolerance interfering with all ADL independence. Pt was independent prior to admission and will benefit from skilled OT intervention to maximize independence with ADL/IADL's to return to prior level of functioning. - Rehabilitation Potential Good, to achieve stated therapy goals - Demonstrates need for PT; CERTIFIED PROFESSIONAL CONTROLLER referral to another service - Predicted Duration of 2-3 days Therapy - Predicted Frequency of daily Therapy - Discharge Destination Rehabilitation facility; TCU - Anticipated Equipment at defer to TCU, has tub chair, radio presenter and Discharge sock aide. - Risks and Benefits of Yes Treatment have been explained. - Patient, family and/or Yes staff in agreement with Plan of Care Signatures [place] (OT)[Signed 23-Sep-2007 10:59] Authored: General Information, Cognitive, Pain, Range of Motion, Strength, ADL: Prior Level of Functioning, ADL: Current Level of Functioning , Higher Level ADLs, Functional Performance, Treatment Plan, Prognosis/Impression documented in this encounter Plan of Treatment Not on filedocumented as of this encounter Visit Diagnoses Not on filedocumented in this encounter Care Teams Baseball Coach Relationship Specialty Start Date End Date Nader Garibay MD PCP - General 01/01/02 10/16/17 documented as of this encounter
--- OUTSIDE RECORDS SUMMARY | 2022-10-07 10:50 | XMS_ITS | Encounter Summary ---
:1935 Author Organization [facility] Address [address] [place] [address] Care Team Providers Name Role Phone Nader Garibay MD Primary Care Provider Reason for Visit Reason Comments Edema swelling in feet and legs RECHECK ER follow up abdominal pain Encounter Details Date Type Department Care Team Description 05/28/2007 Office Visit [facility] Natalya Epstein M D EDEMA (Primary Dx) [address] [address] Social History Tobacco Use Types Packs/Day Years Used Date Smoking Tobacco: Never Alcohol Use Standard Drinks/Week Comments Yes 0 (1 standard drink = 0.6 oz pure alcoho l) SELDOM Sex Assigned at Date Recorded Not on file documented as of this encounter Last Filed Vital Signs Vital Sign Reading Time Taken Comments Blood Pressure 108/64 05/28/2007 11:00 AM CDT Pulse 60 05/28/2007 11:00 AM CDT Temperature 35.6 ??C (96 ??F) 05/28/2007 11:00 AM CDT Respiratory Rate - - Oxygen Saturation - - Inhaled Oxygen Concentration - - Weight 117.5 kg (259 lb) 05/28/2007 11:00 AM CDT Height - - Body Mass Index 43.1 04/27/2007 10:30 AM CDT documented in this encounter Progress Notes Natalya Epstein - 05/28/2007 11:19 AM CDT Chief Complaint Patient presents with ??? Edema swelling in feet and legs ??? RECHECK ER follow up abdominal pain HPI: Vielka Snyder is a 71 year old female who came in today with history of pain abd. And was seen in ER.Dcd home after test results were Ok.Pain feels better but continues to have edema legs whichis worse now as per pt and would like to increase the lasix.Denies shortness of breath, chest pain, orthopenia, paroxymal nocturnal dyspnea, palpitations, diaphoresis etc. REVIEW OF SYSTEMS General: negative for, fever, chills Resp: negative CV: negative GI: negative for, nausea, vomiting and abdominal pain Family History Problem Relation ??? Stroke Mother D ; AGE 88 ??? Cancer Father D ; AGE 59 LUNG CANCER ??? Cancer Sister KIDNEY ??? Gynecology Sister ENDOMETRIOSIS ??? Family History Negative Sister ??? Cancer Paternal Grandmother OVARIAN ??? Heart Paternal Grandfather MA ??? Depression Son Allergies Allergen Reactions ??? 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 Tetracycline ??? Augmentin Nausea and Vomiting Immunization History Name Date(s) Administered ??? Hepatitis B 12/12/2004, 01/15/2005 ??? Influenza 11/24/2001, 09/27/2002, 09/08/2003, 09/15/2006 ??? Mantoux 02/21/2003 ??? Pneumococcal 09/05/1994 ??? TD (ADULT, 7+) 01/24/2000 Past Medical History Diagnosis Date ??? MIXED [...] diverticulum. ??? Pelvis/hip joint surgery unlisted Current outpatient prescriptions Medication Sig ??? DOCUSATE SODIUM 100 MG OR CAPS 2 CAPSULES at bedtime ??? UNKNOWN MED DOSAGE estro vital nutrients (vitamin supplement) 2 tab daily ??? UNKNOWN MED DOSAGE Diabetic Health Pack 1 pkg daily in the morning ??? LASIX 20 MG OR TABS TWO TABLETS DAILY IN THE MORNING 1 PM ??? POTASSIUM CHLORIDE CR 20 MEQ OR [...] 1 tab PO QD (Once per day) Examination: BP 108/64 Pulse 60 Temp (Src) 96 (Oral) Wt 259 lbs (117.5kg) LMP Postmenopausal EXAM: Constitutional: healthy, alert and no distress Head: Normocephalic. No masses, lesions, tenderness or abnormalities Neck: Neck supple. No adenopathy. Thyroid symmetric, normal size,, Carotids without bruits. ENT: NEGATIVE for ear, mouth and throat problems Cardiovascular: negative, PMI normal. No lifts, heaves, or thrills. RRR. No murmurs, clicks gallops or rub Respiratory: negative, Percussion normal. Good diaphragmatic excursion. Lungs clear Gastrointestinal: Abdomen soft, non-tender. BS normal. No masses, organomegaly Extremities:2+ Pedal edema,pulses felt. ASSESSMENT/PLAN Vielka Snyder with: 782.3 EDEMA (primary encounter diagnosis) Plan: LASIX 20 MG OR TABS, POTASSIUM CHLORIDE CR 20 MEQ OR TBCR Will F/U with PCP in 1 to 2 weeks and will need rpt BMP.If pain recurs may need HIDA scan. documented in this encounter Nursing Notes 05/28/2007 11:00 AM CDT >> DEBBIE ADLER 05/28/2007 11:01 am Patient presents with: Edema - swelling in feet and legs RECHECK - ER follow up abdominal pain Medications reviewed: No discrepancies identified. Initial BP 108/64 Pulse 60 Temp (Src) 96 (Oral) Wt 259 lbs (117.5kg) LMP Postmenopausal Estimated Body mass index is 43.10 kg/(m^2) as calculated from: Height of 5' 5 (1.651 m) as of 04/27/07 Weight of 259 lbs (117.482 kg) as of this encounter BP completed using cuff size: large Signed by Charbel Adler LPN documented in this encounter Plan of Treatment Not on filedocumented as of this encounter Visit Diagnoses Diagnosis Edema - Primary documented in this encounter Care Teams Bronze Plater Relationship Specialty Start Date End Date Nader Garibay MD PCP - General 01/01/02 10/16/17 documented as of this encounter
--- OUTSIDE RECORDS SUMMARY | 2022-10-07 10:50 | XMS_ITS | Encounter Summary ---
:1935 Author Organization [facility] Address [address] [place] [address]. [place] [address] Care Team Providers Name Role Phone Nader Garibay MD Primary Care Provider Encounter Details Date Type Department Care Team Description 08/27/2007 Orders Only [facility] ANE SHILPA NOS; [facility] DISACCHAR IDASE DEF/MALAB; Laboratory ABNORMAL LIVER FUNCTION STUD Y [address] [address] Social History Tobacco Use Types [...] Date/Time Associated Diagnosis Comme nts CL AFF PROTHROMBIN Routine 08/27/2007 10:52 Abnormal Liver Res ults for this TIME AM CDT Function Study procedure are in the results section. CL AFF CBC WITH Routine 08/27/2007 10:52 Anemia Nos Results for this PLATELETS, DIFF AM CDT procedure ar e in the results section. HCL GLYCATED Routine 08/27/2007 10:52 Disaccharidase Results f or this HEMOGLOBIN AM CDT Def/Malab procedure are i n the results section. documented in this encounter Results PROTHROMBIN TIME (08/27/2007 10:52 AM CDT) P athologist Signature INR 0.99 0.86 - 1.14 [facility] Specimen Anatomical Collection Method Collection Time Receive d Time (Source) Location / / Volume Laterality 08/27/2007 10:52 08/27/2007 AM CDT 10:57 AM CDT Nader Garibay MD LABORATORY Performing Organization Address City/State/ZIP Code Phon e Number [facility] [address] [place] [phone] [place] [facility] HEMOGLOBIN A1C (08/27/2007 10:52 AM CDT) P athologist Signature Hemoglobin A1C 5.3 4.3 - 6.0 [place] % [facility] Specimen Anatomical Collection Method Collection Time Receive d Time (Source) Location / / Volume Laterality 08/27/2007 10:52 08/27/2007 AM CDT 10:57 AM CDT Nader Garibay MD LABORATORY Performing Organization Address City/[facility]/ZIP Code Phon e Number [facility] [address] [place] [id number] [facility] CBC WITH PLATELETS, DIFF (08/27/2007 10:52 AM CDT) Patholo gist Method Time Signature WBC 5.0 4.0 - [place] 11.0 [facility] RBC Count 4.41 3.8 - 5.2 [place] 10e12/L [facility] Hemoglobin 12.8 11.7 - [facility] 15.7 g/dL [facility] Hematocrit 39.6 35.0 - [facility] 47.0 % [facility] MCV 90 78 - 100 [facility] MCH 29.1 26.5 - [facility] 33.0 pg [facility] MCHC 32.4 31.5 - [place] 36.5 g/dL [facility] RDW 12.9 10.0 - [facility] 15.0 % [facility] Platelet Count 177 150 - 450 [place] 10e9/L [facility] Diff Method Automated [place] Method [facility] % Neutrophils 67 40 - 75 % [facility] % Lymphocytes 25 20 - 48 % [facility] % Monocytes 8 0 - 12 % [facility] % Eosinophils 0 0 - 6 % [place] [facility] % Basophils 0 0 - 2 % [place] [facility] Absolute 3.3 1.6 - 8.3 [place] Neutrophil 10e9/L [facility] Absolute 1.3 0.8 - 5.3 [place] Lymphocytes 10e9/L [facility] Absolute 0.4 0.0 - 1.3 [place] Monocytes 10e9/L [facility] Absolute 0.0 0.0 - 0.7 [place] Eosinophils 10e9/L [facility] Absolute 0.0 0.0 - 0.2 [place] Basophils 10e9/L [facility] Specimen Anatomical Collection Method Collection Time Receive d Time (Source) Location / / Volume Laterality 08/27/2007 10:52 08/27/2007 AM CDT 10:57 AM CDT Nader Garibay MD LABORATORY Performing Organization Address City/State/ZIP Code Phon e Number [facility] [address] [place] [address] [facility] documented in this encounter Visit Diagnoses Diagnosis Anemia, unspecified 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
--- OUTSIDE RECORDS SUMMARY | 2022-10-07 10:50 | XMS_ITS | Encounter Summary ---
:1935 Author Organization [facility] Address [address] [place] [address] Care Team Providers Name Role Phone Nader Garibay MD Primary Care Provider Encounter Details Date Type Department Care Team Description 09/21/2007 Historic Results INTERFACED REPORT Tomas Eckert MD [facility] [address] [place] [address] (Wo rk) Social History Tobacco [...] Procedure Name Priority Date/Time Associated Comments Diagnosis INR Routine 09/21/2007 11:02 Results for this AM SENIOR BIOINFORMATICS SCIENTIST procedure are i n the results section. PARTIAL THROMBOPLASTIN Routine 09/21/2007 11:02 R esults for this TIME AM SENIOR BIOINFORMATICS SCIENTIST procedure are i n the results section. HEMOGLOBIN Routine 09/21/2007 11:02 Results for this AM SENIOR BIOINFORMATICS SCIENTIST procedure are i n the results section. ABO/RH TYPE AND SCREEN Routine 09/21/2007 11:02 R esults for this AM SENIOR BIOINFORMATICS SCIENTIST procedure are i n the results section. BASIC METABOLIC PANEL Routine 09/21/2007 11:02 Re sults for this AM SENIOR BIOINFORMATICS SCIENTIST procedure are i n the results section. documented in this encounter Results (ABNORMAL) Basic metabolic panel (09/21/2007 11:02 AM SENIOR BIOINFORMATICS SCIENTIST) athologist Signature Sodium 140 133 - 144 [place] mmol/L Potassium 3.7 3.4 - 5.3 [place] mmol/L Chloride 99 94 - 109 [place] mmol/L Carbon Dioxide 32 20 - 32 [place] mmol/L Glucose 104 (H) 60 - 99 [place] mg/dL Urea Nitrogen 24 7 - 30 [place] mg/dL Creatinine 0.99 0.60 - [facility] 1.30 mg/dL GFR Estimate 59 (L) >60 [place] mL/min/1.7 m2 GFR Estimate If 72 >60 [place] Black mL/min/1.7 m2 Calcium 9.7 8.5 - 10.4 [place] mg/dL Anion Gap 8 6 - 17 [place] mmol/L Specimen Anatomical Collection Method Collection Time Receive d Time (Source) Location / / Volume Laterality 09/21/2007 11:02 09/21/2007 AM SENIOR BIOINFORMATICS SCIENTIST 11:17 AM SENIOR BIOINFORMATICS SCIENTIST Tomas Eckert MD LAB - BLOOD ORDERABLES Performing Organization Address City/[facility]/ZIP Code Phon e Number [facility] Hemoglobin (09/21/2007 11:02 AM SENIOR BIOINFORMATICS SCIENTIST) P athologist Signature Hemoglobin 13.5 11.7 - 15.7 [place] g/dL Specimen Anatomical Collection Method Collection Time Receive d Time (Source) Location / / Volume Laterality 09/21/2007 11:02 09/21/2007 AM SENIOR BIOINFORMATICS SCIENTIST 11:17 AM SENIOR BIOINFORMATICS SCIENTIST Tomas Eckert MD LAB - BLOOD ORDERABLES Performing Organization Address [facility]/ZIP Code Phon e Number [facility] INR (09/21/2007 11:02 AM SENIOR BIOINFORMATICS SCIENTIST) P athologist Signature INR 1.00 0.86 - 1.14 [place] Specimen Anatomical Collection Method Collection Time Receive d Time (Source) Location / / Volume Laterality 09/21/2007 11:02 09/21/2007 AM SENIOR BIOINFORMATICS SCIENTIST 11:34 AM SENIOR BIOINFORMATICS SCIENTIST Tomas Eckert MD LAB - BLOOD ORDERABLES Performing Organization Address City/State/ZIP Code Phon e Number [facility] Partial thromboplastin time (09/21/2007 11:02 AM SENIOR BIOINFORMATICS SCIENTIST) P athologist Signature PTT 30 22 - 37 sec [facility] Specimen Anatomical Collection Method Collection Time Receive d Time (Source) Location / / Volume Laterality 09/21/2007 11:02 09/21/2007 AM SENIOR BIOINFORMATICS SCIENTIST 11:34 AM SENIOR BIOINFORMATICS SCIENTIST Tomas Eckert MD LAB - BLOOD ORDERABLES Performing Organization Address City/State/ZIP Code Phon e Number [facility] ABO/Rh type and screen (09/21/2007 11:02 AM SENIOR BIOINFORMATICS SCIENTIST) Analysis Performed At [facility] Time Signature ABO A [facility] RH(D) Neg [facility] Antibody Neg [facility] Screen Specimen 09/24/2007 [place] Expires Specimen Anatomical Collection Method Collection Time Receive d Time (Source) Location / / Volume Laterality 09/21/2007 11:02 09/21/2007 AM SENIOR BIOINFORMATICS SCIENTIST 11:17 AM SENIOR BIOINFORMATICS SCIENTIST Tomas Eckert MD LAB - BLOOD BANK TEST ORDE R Performing Organization Address City/State/ZIP Code Phon e Number [facility] documented in this encounter Visit Diagnoses Not on filedocumented in this encounter Care Teams Poured Concrete Wall Technician Relationship Specialty Start Date End Date Nader Garibay MD PCP - General 01/01/02 10/16/17 documented as of this encounter
--- OUTSIDE RECORDS SUMMARY | 2022-10-07 10:50 | XMS_ITS | Encounter Summary ---
:1935 Author Organization [facility] Address [address] [place] [address]. [place] [address] Care Team Providers Name Role Phone Nader Garibay MD Primary Care Provider Encounter Details Date Type Department Care Team Description 09/21/2007 Operative Report [facility] Tmoas Eckert (Pot Room Supervisor) Clinic Flynn MD Ivan [address] ORTHOPEDICS [address] [phone] [place], [place] [id number] Social History Tobacco Use Types Packs/Day Years Used Date Smoking Tobacco: Never Alcohol Use Standard Drinks/Week Comments Yes 0 (1 standard drink = 0.6 oz pure alcoho l) SELDOM Sex Assigned at Date Recorded Not on file documented as of this encounter Progress Notes Tomas Eckert - 09/30/2007 9:42 AM [facility] FINAL PREOPERATIVE DIAGNOSIS: End-stage osteoarthritis of the right knee. POSTOPERATIVE DIAGNOSIS: End-stage osteoarthritis of the right knee. PROCEDURE: Right total knee replacement. ANESTHESIA: Spinal. DESCRIPTION OF PROCEDURE: Annia Sousa was brought to the operating room. Spinal anesthesia was induced and prophylactic IV antibiotics were given. She was positioned supine on the OR table. A tourniquet was placed about the right thigh. The right lower extremity was prepped and draped in customary fashion. The limb was exsanguinated by elevation. The tourniquet was inflated to 350 mmHg pressure. A straight anterior longitudinal midline incision is made. Dissection is carried down to the extensor mechanism. Full thickness flaps were raised only to the extent necessary. The knee is entered via a medial parapatellar arthrotomy. The lateral patellofemoral ligaments were divided. The knee is positioned hyperflexed with the patella everted. The medial compartment is destroyed. The meniscus was macerated. There was exposed bone on both thefemoral condyle and medial tibial plateau. There is also a small area of exposed bone on the patellaand a complimentary area on the trochlea. Lateral compartment is reasonably well preserved. Subperiosteal dissection was carried down the anteromedial proximal tibial metaphysis. Medial and lateral meniscectomies were performed. The anterior cruciate ligament was sacrificed. The fat pad is excised. Attention is turned first to the femur. A drill hole is made above the femoral notch. The intramedullary guide is placed. This is used to position the distal femoral cutting block which is pinned in place. After medial and lateral condylar drill holes are made, intramedullary guide is removed, leaving the cutting block in place. The distal femur is resected. Based on intraoperative measurements, we elected to use the Biomet AGC size 65 right femur. The jigs are used to make the anterior, posterior,chamfer cuts. The trial component fits extremely well. Attention is turned to the tibia. The extramedullary guide is used to position the proximal tibial cutting block which is pinned in place. As this is a varus knee, the cut was thinner medially and thicker laterally. Care was taken to preserve the posterior cruciate ligament as the proximal tibia is resected. The size 71 Biomet Maxim trial fits best. The jigs were used to make the intramedullary hole. We get the best combination of motion and stability with a 12 mm insert. Finally, attention was turned to the patella. The articular surface was resected. A central drill hole was made. The Biomet small Arcom all poly patella fits best. We get excellent patellofemoral tracking. There is no need for retinacular release. While cement was mixed on the back table, the trial components are removed. The bones are carefullycleansed with poly antimicrobial solution and pulsatile lavage. The bones were dried with suctioningand sponging. Cementing is begun. First, the Biomet Maxim size 71 tibia with 40 mm I-beam was cemented. Next, theBiomet AGC size 65 right femur is cemented. Excess cement is removed. A trial 12 mm insert was placed, the knee was placed in full extension. Lastly, the Biomet ArCom size small all poly patella was cemented and held with a patellar clamp. Again, excess cement was removed and the knee is maintained in full extension until the cement is thoroughly hardened. Once the cement is hardened, the trial insert was removed. Final irrigation is performed. Final inspection made for any extraneous cement. The real 12 mm insert was placed and held with a locking bar.We get excellent femoral tibial motion, stability, roll back. We get excellent patellofemoral tracking. It was elected to close. Two medium Hemovacs were brought out via separate stab incisions. The capsule was closed with #1 Vicryl [id number] sutures. A 2-0 Vicryl was used in the subcu and skin was reapproximated with skin clips. A bulky sterile dressing, Abrahan wrap, knee immobilizer were applied. The patient was taken to the recovery room in satisfactory condition. Final counts are correct. Electronically signed on 09/30/2007 09:42 by TOMAS ECKERT JR, MD MT: lg Name: ANNIA SOUSA Account: [id number] : 1935 Procedure Date: 09/21/2007 Document: [id number] cc: Charbel Garibay MD NG MACHINE ATTACHMENT TESTER documented in this encounter Plan of Treatment Not on filedocumented as of this encounter Visit Diagnoses Not on filedocumented in this encounter Care Teams Pattern Mechanic Relationship Specialty Start Date End Date Nader Garibay MD PCP - General 01/01/02 10/16/17 documented as of this encounter
--- OUTSIDE RECORDS SUMMARY | 2022-10-07 10:50 | XMS_ITS | Encounter Summary ---
:1935 Author Organization [facility] Address [address] [place] [address]. [place] [address] Care Team Providers Name Role Phone Nader Garibay MD Primary Care Provider Reason for Visit Reason Onset Date Comments Lab Result Notice 07/08/2007 Encounter Details Date Type Department Care Team Description 07/08/2007 Telephone [facility] Nader Garibay ler, Lab Result Notice [facility] Edwar HERNANDEZ [address] [phone] [place], [place] [phone] (Wo rk) Social History Tobacco Use Types Packs/Day Years Used Date Smoking Tobacco: Never Alcohol Use Standard Drinks/Week Comments Yes 0 (1 standard drink = 0.6 oz pure alcoho l) SELDOM Sex Assigned at Date Recorded Not on file documented as of this encounter Miscellaneous Notes Telephone Encounter - Macy Rivas - 07/08/2007 8:48 AM CDT Results at desktop support technician of . Telephone Encounter - Nader Garibay - 07/08/2007 8:39 AM CDT Print results as requested, and have available for patient. Telephone Encounter - Macy Rivas - 07/08/2007 8:36 AM CDT Pt would like the results to lab work that was completed 07/01. There is not a result note yet, however pt has apt this afternoon and would like to have results for apt, which is today at 2pm. Please print results for pt and leave at desktop support technician in IM by 1:30 for pt. Some of the labs are abnormal, wondering if PCP is ok with use printing results and providing themto pt this afternoon? documented in this encounter Plan of Treatment Not on filedocumented as of this encounter Visit Diagnoses Not on filedocumented in this encounter Care Teams Model Maker Fiberglass Relationship Specialty Start Date End Date Nader Garibay MD PCP - General 01/01/02 10/16/17 documented as of this encounter
--- OUTSIDE RECORDS SUMMARY | 2022-10-07 10:50 | XMS_ITS | Encounter Summary ---
:1935 Author Organization [facility] Address [address] [place] [address] Care Team Providers Name Role Phone Nader Garibay MD Primary Care Provider Reason for Referral - Closed Specialty Diagnoses / Procedures Referred By Contact Refer red To Contact Diagnoses Obesity, unspecified Nader Garibay MD [address] [address] 0 Referral ID Status Reason Start Date Expiration Date Visits Requ ested Visits Authorized [id number] Closed 07/30/2007 11/16/2011 1 1 Reason for Visit Reason Comments Edema Weight Problem would like to discuss tiffanie burrows nd Encounter Details Date Type Department Care Team Description 07/30/2007 Office Visit [facility] Nader Garibay DEPRESSIV E DISORDER NEC (Primary Dx); Clinic Tiny Crabtree MD OBESITY NOS; [place] [address] [place] [address] [phone] Social History Tobacco Use Types Packs/Day Years Used Date Smoking Tobacco: Never Alcohol Use Standard Drinks/Week Comments Yes 0 (1 standard drink = 0.6 oz pure alcoho l) SELDOM Sex Assigned at Date Recorded Not on file documented as of this encounter Last Filed Vital Signs Vital Sign Reading Time Taken Comments Blood Pressure 138/76 07/30/2007 9:15 AM CDT Pulse - - Temperature - - Respiratory Rate - - Oxygen Saturation - - Inhaled Oxygen Concentration - - Weight 116.6 kg (257 lb) 07/30/2007 9:15 AM CDT Height 165.1 cm (5' 5) 07/30/2007 9:15 AM CDT Body Mass Index 42.77 07/30/2007 9:15 AM CDT documented in this encounter Progress Notes Nader Garibay - 07/30/2007 9:51 AM CDT HPI: Vielka Snyder is a 71 year old female who presents for follow-up. Still having difficulty with lower extremity edema. Her ECHO was unremarkable in tems of LV function- she is still only using her CPAP about jamee other night. Still gatting brisk diuresis with her current Lasix dose. Rceent Lytes were WNL. Patient requesting referral for bariatric surgery - she has tried multiple diets over the years, allunsuccessful - thyroid studies have been consistently normal, and her 24-hour urine cortisol was normal. Patient Active Problem List Diagnoses Code ??? 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 EDEMA 782.3 ??? DEPRESSIVE DISORDER NEC 311 ??? ESOPHAGEAL REFLUX 530.81 ??? MIXED HYPERLIPIDEMIA 272.2 ??? OTHER UNSPEC SLEEP APNEA 780.57 ??? OBESITY NOS 278.00 ??? RESTLESS LEG SYNDROME 333.99 Current outpatient prescriptions Medication Sig ??? EFFEXOR XR# 75 MG OR CP24 1 capsule daily with food ??? DOCUSATE SODIUM 100 MG OR CAPS 1 CAPSULE at bedtime ??? NUTRITIONAL SUPPLEMENTS OR TABS ESTRO VITAL NUTRIENTS: ONE DAILY ??? NEW MED LEADER PAIN MED FOR HEADACHES: 2 -4 TABS NEEDED ??? LASIX 20 MG OR TABS TWO TABLETS DAILY IN THE MORNING two tabs in the pm ??? UNKNOWN MED DOSAGE estro vital nutrients (vitamin supplement) 2 tab daily ??? POTASSIUM CHLORIDE CR 20 MEQ OR TBCR TWO TABLETS DAILY ??? MIRAPEX 0.5 MG OR TABS 2 tabs Qhs ??? NEXIUM 40 MG OR CPDR 1 CAPSULE DAILY ??? LIPITOR 20 MG OR TABS 1 tab PO QD (Once per day) Past Medical History Diagnosis Date ??? MIXED [...] Paternal Grandmother OVARIAN ??? Heart Paternal Grandfather GA ??? Depression Son History Social History ??? Marital Status: Spouse Name: N/A Number of Children: 2 ??? Years of Education: N/A Occupational History ??? Retired Social History Main Topics ??? Tobacco Use: Never ??? Alcohol Use: Yes SELDOM ??? Drug Use: No ??? Sexually Active: Not Currently Other Topics Concern ??? Not on file Social History Narrative ??? No narrative on file ROS: CONSTITUTIONAL:as above I: NEGATIVE for worrisome rashes, moles or lesions E/M: NEGATIVE for ear, mouth and throat problems R: NEGATIVE for significant cough or SOB CV: NEGATIVE for chest pain, palpitations or peripheral edema GI: NEGATIVE for nausea, abdominal pain, heartburn, or change in bowel habits : NEGATIVE for frequency, dysuria, or hematuria EXAM: BP 138/76 Ht 5' 5 (1.65m) Wt 257 lbs (116.6kg) LMP Postmenopausal EYES: EOMI, fundi benign- PERRL HENT: ear canals and TM's normal and nose and mouth without ulcers or lesions RESP: lungs clear to auscultation - no rales, rhonchi or wheezes CV: regular rates and rhythm, normal S1 S2, no S3 or S4 and no murmur, click or rub - ABDOMEN: soft, nontender, no HSM or masses and bowel sounds normal Assessment: 311 DEPRESSIVE DISORDER NEC (primary encounter diagnosis) Note: Plan: EFFEXOR XR# 75 MG OR CP24 278.00 OBESITY NOS Note: Plan: CONSULT BARIATRIC SURGERY 782.3 EDEMA Note: Needs to use CPAP daily - continue Lasix at current dose - will have return in 2-3 months to re-evaluate. Plan: Nader Garibay MD documented in this encounter Nursing Notes 07/30/2007 9:15 AM CDT >> SUE MALONEY 07/30/2007 9:32 am Patient presents with: Edema Weight Problem - would like to discuss lap band Medications reviewed: The following discrepancies were noted: meds stopped- VOLTAREN, DIABETIC HEALTH PACK new meds- LEEDER PAIN RELIEVER Initial BP 138/76 Ht 5' 5 (1.65m) Wt 257 lbs (116.6kg) LMP Postmenopausal Body mass index is 42.77 kg/(m^2). BP completed using cuff size: large Signed by Simone Maloney LPN documented in this encounter Plan of Treatment Not on filedocumented as of this encounter Procedures Procedure Name Priority Date/Time Associated Diagnosis Comme nts Z WEIGHT MANAGEMENT REFERRAL Routine 08/31/2007 Obesity Nos documented in this encounter Results CONSULT BARIATRIC SURGERY (08/31/2007) Narrative This result has an attachment that is no t available. Nader Garibay MD REFERRAL documented in this encounter Visit Diagnoses Diagnosis Depressive disorder, not elsewhere class ified - Primary Obesity, unspecified Edema documented in this encounter Care Teams Cardiac/Vascular Sonographer Relationship Specialty Start Date End Date Nader Garibay MD PCP - General 01/01/02 10/16/17 documented as of this encounter
--- OUTSIDE RECORDS SUMMARY | 2022-10-07 10:50 | XMS_ITS | Encounter Summary ---
:1935 Author Organization [facility] Address [address] [place] [address] Care Team Providers Name Role Phone Nader Garibay MD Primary Care Provider Reason for Visit Reason Onset Date Comments Other 05/21/2007 Encounter Details Date Type Department Care Team Description 05/21/2007 Telephone [facility] Nader Garibay MD Other [id number] [place] [address] [phone] Social History Tobacco Use Types Packs/Day Years Used Date Smoking Tobacco: Never Alcohol Use Standard Drinks/Week Comments Yes 0 (1 standard drink = 0.6 oz pure alcoho l) SELDOM Sex Assigned at Date Recorded Not on file documented as of this encounter Miscellaneous Notes Telephone Encounter - Court Anthony - 05/21/2007 2:13 PM CDT Pt notified. Telephone Encounter - Nader Garibay - 05/21/2007 12:32 PM CDT Single-dose diflucan filled, faxed to preferred pharmacy. Continue Lasix twice daily (with potassium supplement) x 5 days, RTC if not improved. Telephone Encounter - Bhumi Tomas - 05/21/2007 10:07 AM CDT Pt states she feels she has another yeast infection with milky discharge from vagina. Her fiancee had to go to his doctor and was treated for a yeast infection 2 days ago and he had a red spot on his penis. He got Nystatin. Pt would like to be treated over the phone and is asking if any of her meds is causing her to get yeast infections as this has returned after being treated in November. She also iswanting you to know that her edema in her feet was so bad yesterday she couldn't get her shoes on and she is taking Lasix BID. What to do about the edema and has gained 5 more pounds. documented in this encounter Plan of Treatment Not on filedocumented as of this encounter Visit Diagnoses Diagnosis Vaginitis and vulvovaginitis, unspecifie d - Primary documented in this encounter Care Teams Mounter Sousaphones Relationship Specialty Start Date End Date Nader Garibay MD PCP - General 01/01/02 10/16/17 documented as of this encounter
--- OUTSIDE RECORDS SUMMARY | 2022-10-07 10:50 | XMS_ITS | Encounter Summary ---
:1935 Author Organization [facility] Address [address] [place] [address] Care Team Providers Name Role Phone Nader Garibay MD Primary Care Provider Encounter Details Date Type Department Care Team Description 04/30/2007 Orders Only [facility] Nader Garibay DIAGNOSIS NOT YET Clinic [place] MD Bro DEFINED (Primary Dx) [place] [address] [phone] Social History Tobacco Use Types Packs/Day Years Used Date Smoking Tobacco: Never Alcohol Use Standard Drinks/Week Comments Yes 0 (1 standard drink = 0.6 oz pure alcoho l) SELDOM Sex Assigned at Date Recorded Not on file documented as of this encounter Plan of Treatment Not on filedocumented as of this encounter Procedures Procedure Name Priority Date/Time Associated Diagnosis Comme nts [facility] RT X-RAY KNEE 1 OR Routine 04/24/2007 DIAGNOSIS NOT YET Results for this 2 VIEW DEFINED procedure are i n the results section . [facility] LT X-RAY KNEE 1 OR Routine 04/24/2007 DIAGNOSIS NOT YET 2 VIEW DEFINED documented in this encounter Results RT X-RAY KNEE 1 OR 2 VIEW (04/24/2007) Anatomical Region Laterality Modality Other Impressions 04/24/2007 See result for LT x-ray Knee 1 or 2 view 04/24/07 Nader Garibay MD [facility] LT X-RAY KNEE 1 OR 2 VIEW (04/24/2007) Anatomical Region Laterality Modality Other Narrative This result has an attachment that is no t available. Nader Garibay MD GENERAL IMAGING documented in this encounter Visit Diagnoses Diagnosis DIAGNOSIS NOT YET DEFINED - Primary documented in this encounter Care Teams Carton Filling Machine Operator Relationship Specialty Start Date End Date Nader Garibay MD PCP - General 01/01/02 10/16/17 documented as of this encounter
--- OUTSIDE RECORDS SUMMARY | 2022-10-07 10:50 | XMS_ITS | Encounter Summary ---
:1935 Author Organization [facility] Address [facility] [place] [address] Care Team Providers Name Role Phone Nader Garibay MD Primary Care Provider Encounter Details Date Type Department Care Team Description 08/26/2007 Consultation [facility] Dylan Seay MD [address] [facility] [address] [place], [place] [id number] (Wo rk) Social History Tobacco Use Types Packs/Day Years Used Date Smoking Tobacco: Never Alcohol Use Standard Drinks/Week Comments Yes 0 (1 standard drink = 0.6 oz pure alcoho l) SELDOM Sex Assigned at Date Recorded Not on file documented as of this encounter Progress Notes Dylan Seay - 09/20/2007 10:02 AM PNEUMATIC SYSTEMS OPERATOR FINAL REQUESTING PHYSICIAN: Nader Garibay MD CHIEF COMPLAINT: Gastroesophageal reflux, stress incontinence, shortness of breath with exertion, hyperlipidemia, varicose veins, obstructive sleep apnea, osteoarthritis exacerbated by morbid obesity. HISTORY OF PRESENT ILLNESS: Annia Snyder is a 71-year-old female who has had a 54-year struggle with her weight. She has tried several structured weight loss programs, including Weight Watchers 10 times, NutriSystem and TOPS. Additionally, she has used Dexedrine for 10 years and [id number] Met abolife. All of her attempts at weight loss have failed. Currently she is having trouble with dyspnea and gastroesophageal reflux and stress incontinence due to her weight. She also has problems with activities of daily living, including lower body dressing, bathing and toileting. She notices a decreased energy level. The patient was referred to our program by her primary care physician, Dr. Garibay, due to her multiple attempts of failed weight loss. PAST MEDICAL HISTORY: 1.Hyperlipidemia. 2.Sleep apnea. 3.Gastroesophageal reflux disease. 4.Varicose veins. 5.History of thrombophlebitis at age 22 of the right foot. 6.Osteoarthritis of the knees and hips. 7.Stress incontinence. 8.Depression. 9.Restless leg syndrome. MEDICATIONS: 1.Diflucan. 2.Furosemide. 3.Potassium. 4.Lipitor. 5.Effexor. 6.Nexium. 7.Mirapex. 8.Docusate sodium. ALLERGIES: Unknown at this time, however, she does think that she has an antibiotic allergy. PAST MEDICAL HISTORY: 1.The patient had a bowel resection a year and a half ago due to a perforation and that was done byDr. Navarrete. 2.Tonsillectomy in 1949. 3.2 C-sections in 1962 and 1964. 4.Tubal ligation in 1966, that included an abdominal incision. 5.Right total hip replacement in 2003. 6.She did have her wisdom teeth extracted in 1956. 7.September 21 she is scheduled for a right knee replacement. FAMILY HISTORY: Father had a history of lung cancer. She has 3 sisters who had cervical cancer. Alistair of a heart attack. SOCIAL HISTORY: The patient is single, but will getting next week. She has 2 boys. 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 Does not smoke and never has. Drinks occasional alcohol. REVIEW OF SYSTEMS: GENERAL: The patient is a 71-year-old female who denies any recent history of fevers, chills or night sweats. The patient has no history of thyroid problems, but did have a recent elevated glucose level. RESPIRATORY: The patient reports dyspnea on exertion, but denies dyspnea at rest, cough or wheezing. She has no history of asthma or COPD, but does have obstructive sleep apnea and is on a CPAP. CARDIOVASCULAR: The patient has a history of hyperlipidemia, occasionally she has some blood pressure readings that are high, but does not have any heart disease. She did recently have a cardiac evaluation, which turned out normal. She has no history of murmurs, rubs or abnormal heart rhythms and denies any chest pains or palpitations. GASTROINTESTINAL: The patient denies nausea, vomiting, diarrhea and constipation or abdominal pains at this time. She did have a bowel resection last year. VASCUALR: The patient denies any history of DVT's, although she did have thrombophlebitis in her 20s and also has some varicose veins that are not painful. MUSCULOSKELETAL: The patient does have osteoarthritis and does have joint pain in both knees and bilateral hips. She reports limited mobility and painful walkingdue to her joint pain in her right knee. PSYCHIATRIC: The patient does have a history of chronic depression for which she is on Effexor. She does not notice any lability in her mood, anxiety or mood swings at this time. GENITOURINARY: The patient denies dysuria, but does state that she has had stress incontinence. She has had 2 C-sections in the past and a tubal ligation with an abdominal incision. NEUROLOGIC: The patient denies any history of seizures, strokes or headaches. She denies any memory loss. HEMATOLOGIC: The patient denies any anemia or malignancy. PHYSICAL EXAMINATION: GENERAL: The patient is a 71-year-old obese female in good health, good development and normal affect in no acute distress. She is alert and oriented x3 and answers all questions appropriately. VITAL SIGNS: Age 71, height 5 feet, 5 inches, weight 264 pounds, BMI 43.9, blood pressure 126/72,pulse 72, respirations 14, temperature 97.3 pounds. HEENT: Head is normocephalic/atraumatic. Pupils are equal and round. NECK: Supple without lymphadenopathy or thyromegaly. CARDIOVASCULAR: Heart is regular rate and rhythm without murmurs, rubs or gallops. LUNGS: Clear to auscultation bilaterally with good breath sounds and without a prolonged expiratory stage. GI: Abdomen is obese, nondistended, soft, nontender without organomegaly or masses. She does have 2 midline incisions from when she had her bowel resection and also her C-sections. VASCULAR: The patient has no cyanosis in her lower extremities, however, she does have 3+ pitting edema. MUSCULOSKELETAL: The patient has full range of motion of all joints with some guarding at the knees. There is no clubbing, cyanosis or joint inflammation present. NEUROLOGIC: The patient's cranial nerves II-XII are grossly intact. PLAN: The patient is a 71-year-old female who was referred to our program by her primary physician. She will have her laboratory tests done today in the office as well as fax over the labs that she had recently. She will schedule her psychological evaluation within the next couple weeks andwill need to get an approval for surgery because of her age. We have discussed the importance of preoperative weight loss and have set a goal of 10 pounds for her. When she has completed the above requirements and there are no further recommendations, she will be allowed to see Dr. Navarrete for consultation for the Rigo-en-Y gastric bypass surgery. Total time was 65 minutes with 5 minutes for an exam and 60 minutes for counseling time. Electronically signed on 09/20/2007 10:02 by DYLAN SEAY MD As dictated by NERY FERGUSON PA-C MT: [email or web address] Name: ANNIA SOUSA MRN: [id number] Account: [id number] : 1935 Consult Date: 08/26/2007 Document: [id number] cc: Charbel Garibay MD MATIC SYSTEMS OPERATOR documented in this encounter Plan of Treatment Not on filedocumented as of this encounter Visit Diagnoses Not on filedocumented in this encounter Care Teams Paste Up Worker Relationship Specialty Start Date End Date Nader Garibay MD PCP - General 01/01/02 10/16/17 documented as of this encounter
--- OUTSIDE RECORDS SUMMARY | 2022-10-07 10:50 | XMS_ITS | Encounter Summary ---
:1935 Author Organization [facility] Address [address] [place] [address]. [place] [address] Care Team Providers Name Role Phone Nader Garibay MD Primary Care Provider Encounter Details Date Type Department Care Team Description 09/22/2007 Historic Notes INTERFACED REPORT Interface, Transcript on, Social History Tobacco Use Types Packs/Day Years Used Date Smoking Tobacco: Never Alcohol Use Standard Drinks/Week Comments Yes 0 (1 standard drink = 0.6 oz pure alcoho l) SELDOM Sex Assigned at Date Recorded Not on file documented as of this encounter Progress Notes Interface, Supervisor Bleach Plant - 02/04/2011 7:59 AM CDT D - Following for assistance with D/C planning. Awaiting PT/OT eval and rec. Pt is pre-registered at [facility]. Controlled Area Checker met with Pt, she reports that she plans to D/C to [facility] TCU. Controlled Area Checker sent referral to . Pt states that she would like to arrange transport. Controlled Area Checker called [facility] to arrange transport for (POD 3) w/c at 1130. A - Pt is alert and oriented. P - Awaiting final D/C orders. Pt plans to D/C to [facility]. SW continues to follow. [Signature] Author:ABRAM MATHUR ([facility]) [Signed 22-Sep-2007 10:41] Interface, Supervisor Bleach Plant - 02/04/2011 7:59 AM CDT General Information General Information - Type of Note Initial Evaluation - Patient Profile Review Yes - Onset Date 21-Sep-07 - Referring Physician Tomas Eckert - Patient/Family Goals To return home when able - History of Present Problem s/p R TKA on 09/21/07 - Treatment Diagnosis Functional mobility and gait impairment. - Precautions/Limitations Fall precautions; Oxygen therapy; 3L O2 - Weight Bearing Status Weight bearing as tolerated; R LE Previous Level of Function Previous Level of Function - Ambulation/Mobility Skills Needs device; SEC - Transfer Skills Needs device - ADL Skills Needs device - Work/Activity Level Mild restrictions Cognitive Status Cognitive Status - Orientation Orientation to person, place and time - Level of Consciousness Alert - Follows Commands and 100% of the time; Able to follow Answers Questions multi-step instructions - Memory Intact - Personal Safety/Judgement Intact - Sequencing Intact Pain Presence of pain - Do you have pain now Yes (See Assessment and Intervention Flowsheet) Range of Motion ROM - ROM Deficits were identified as indicated in ROM assessment Range of Motion (Assessment) Comments: R LE ROM limited s/p TKA; all other LE ROM within fucntional limits as observed during transfers. Strength Strength - Strength Deficits were identified as indicated in strength assessment Strength (Assessment) Comments: R LE strength impairment s/p R TKA. LE LE strength WFL. Functional Performance Bed Mobility - Scooting/Bridging: Moderate assist, 1 person assist - Supine to sit: Moderate assist, 2 person assist Comments: Pt requires assist at trunk and LE for supine->sit. Pt attempts to use trapeze stating she is too weak to get up without it. Transfer - Transfer: Moderate assist, 2 person assist - Stand to Sit: Moderate assist, 2 person assist - Bed to Chair: Moderate assist, 2 person assist Comments: Transfers with FWW; verbal cues to push up from the bed, for upright posture, and to pivot to right during bed->chair transfer. Treatment Plan/Modalities Treatments - Treatments Gait Training, Transfer Training, Bed Mobility Training, Strengthening Prognosis/Impression Impression - Skilled Criteria for Yes Therapy Intervention Met - PT Practice Pattern Musculoskeletal - Assessment Pt presents with functional mobility and R LE strength impairment s/p R TKA on 09/21/07. Prior to surgery, Pt was mod I with SEC for all mobility and activity. Pt c/o pain with all movement. Pt will benefit from skilled PT services to increase functional mobility and independence through gait and mobility training as well as R LE strengthening. - Rehabilitation Potential Good, to achieve stated therapy goals - Demonstrates need for OT; ELECTRODE TURNER AND FINISHER referral to another service - Predicted Duration of 3 days Therapy - Predicted Frequency of BID Therapy - Discharge Destination Rehabilitation facility; TCU - [facility] - Anticipated Equipment at Defer to TCU Discharge - Risks and Benefits of Yes Treatment have been explained. - Patient, family and/or Yes staff in agreement with Plan of Care Signatures Christ Ford (PT)[Signed 22-Sep-2007 16:03] Co Signer: General Information, Previous Level of Function, Cognitive Status, Pain, Range of Motion,Range of Motion (Assessment), Strength, Strength (Assessment), Functional Performance, Treatment Plan/Modalities, Prognosis/Impression BIMAL BURT (Student)[Signed 22-Sep-2007 10:55] Authored: General Information, Previous Level of Function, Cognitive Status, Pain, Range of Motion, Range of Motion (Assessment), Strength, Strength (Assessment), Functional Performance, Treatment Plan/Modalities, Prognosis/Impression Interface, Supervisor Bleach Plant - 02/04/2011 7:59 AM CDT SH: 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 She is very happy to be remarried (after she and her new experienced the loss of their former spouses), yet also is challenged by the lack of support from some of their children. She speaks of her life and activity as meaningful, but clearly also desires to further promote whatever healing and support is possible for their family. SH helped pt reflect on this concern and offered prayer. SH will follow. [Signature] Author:Alexsander David ([facility]) [Signed 22-Sep-2007 13:30] Interface, Supervisor Bleach Plant - 02/04/2011 7:58 AM CDT D - Following for D/C planning. Controlled Area Checker met with Pt and spouse - they request that another referral for TCU be sent to [facility]. Pt also pre-registered at [facility]. Controlled Area Checker called and [facility] faxed referral. P - SW continues to follow. [Signature] Author:ABRAM MATHUR ([facility]) [Signed 22-Sep-2007 15:56] documented in this encounter Plan of Treatment Not on filedocumented as of this encounter Visit Diagnoses Not on filedocumented in this encounter Care Teams Toddler Caregiver Relationship Specialty Start Date End Date Nader Garibay MD PCP - General 01/01/02 10/16/17 documented as of this encounter
--- OUTSIDE RECORDS SUMMARY | 2022-10-07 10:50 | XMS_ITS | Encounter Summary ---
:1935 Author Organization [place] Address [address] [place] [address]. [place] [address] Care Team Providers Name Role Phone Nader Garibay MD Primary Care Provider Reason for Visit Reason Comments Pre-Op Exam Encounter Details Date Type Department Care Team Description 09/16/2007 Office Visit [facility] Nader Garibay PREOP EXA M OTHER SPECIFIED (Primary Dx); Clinic [place] MD Bro VACCINE FOR INFLUENZA; [place] [address] [facility] EDEMA; [address] MIXED HYPERLIPIDEMIA; [place] [phone] Social History Tobacco Use Types Packs/Day Years Used Date Smoking Tobacco: Never Alcohol Use Standard Drinks/Week Comments Yes 0 (1 standard drink = 0.6 oz pure alcoho l) SELDOM Sex Assigned at Date Recorded Not on file documented as of this encounter Last Filed Vital Signs Vital Sign Reading Time Taken Comments Blood Pressure 124/60 09/16/2007 9:00 AM CDT Pulse 70 09/16/2007 9:00 AM CDT Temperature 36.6 ??C (97.8 ??F) 09/16/2007 9:00 AM CDT Respiratory Rate - - Oxygen Saturation - - Inhaled Oxygen Concentration - - Weight 117 kg (258 lb) 09/16/2007 9:00 AM CDT Height 165.1 cm (5' 5) 09/16/2007 9:00 AM CDT Body Mass Index 42.93 09/16/2007 9:00 AM CDT documented in this encounter Progress Notes Leia Harley - 09/16/2007 9:05 AM CDT PRE-OP EVALUATION: Today's date: 09/16/2007 Vielka Pina (: 1935) presents for pre-operative evaluation as requested by Dr. Tomas Eckert. She requires evaluation and anesthesia clearance prior to undergoing surgery/procedure for treatment of severe pain hard to walk . Proposed procedure: total knee replacement Date of Surgery/ Procedure: 09/21/07 Hospital/Surgical Facility:[facility] Fax number for surgical facility: [phone] Primary Physician: Dr Garibay Type of Anesthesia Anticipated: General History of anesthesia complications: NONE History of abnormal bleeding: NONE History of blood tranfusions: NO Patient has a Health Care Directive or Living Will: NO HPI: HYPERLIPIDEMIA - Patient has a long history of significant Hyperlipidemia requiring medication for treatment with recent good control. Patient reports no problems or side effects with the medication. SLEEP PROBLEM - Patient has a longstanding history of periodic leg movement and obstructive sleep apnea. She currently uses CPAP, and her RLS is controlled with Mirapex. Patient Active Problem List Diagnoses Date Noted ??? RESTLESS LEG SYNDROME [333.99] 10/31/2005 ??? LOC PRIM OSTEOART-L/LEG [715.16] 09/28/2002 ??? EDEMA [782.3] 09/28/2002 ??? DEPRESSIVE DISORDER NEC [311] 09/28/2002 ??? ESOPHAGEAL REFLUX [530.81] 09/28/2002 ??? MIXED HYPERLIPIDEMIA [272.2] 09/28/2002 ??? OTHER UNSPEC SLEEP APNEA [780.57] 09/28/2002 ??? OBESITY NOS [278.00] 09/28/2002 Past Medical History Diagnosis Date ??? MIXED [...] unlisted Current outpatient prescriptions Medication Sig ??? EFFEXOR XR# 75 MG OR CP24 1 capsule daily with food ??? DOCUSATE SODIUM 100 MG OR CAPS 1 CAPSULE at bedtime ??? NUTRITIONAL SUPPLEMENTS OR TABS ESTRO VITAL NUTRIENTS: ONE DAILY ??? NEW MED LEADER PAIN MED FOR HEADACHES: 2 -4 TABS NEEDED ??? UNKNOWN MED DOSAGE estro vital nutrients (vitamin supplement) 2 tab daily ??? POTASSIUM CHLORIDE CR 20 MEQ OR TBCR TWO TABLETS DAILY ??? MIRAPEX 0.5 MG OR TABS 2 tabs Qhs ??? NEXIUM 40 MG OR CPDR 1 CAPSULE DAILY ??? LIPITOR 20 MG OR TABS 1 tab PO QD (Once per day) ??? LASIX 20 MG OR TABS TWO TABLETS DAILY IN THE MORNING two tabs in the pm OTC products: NSAIDS Allergies Allergen Reactions ??? 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 Tetracycline ??? Augmentin Nausea and Vomiting Latex Allergy: NO History Substance Use Topics ??? Tobacco Use: Never ??? Alcohol Use: Yes SELDOM History Drug Use No REVIEW OF SYSTEMS: C: NEGATIVE for fever, chills, change in weight E/M: NEGATIVE for ear, mouth and throat problems R: NEGATIVE for significant cough or SOB CV: NEGATIVE for chest pain, palpitations or peripheral edema EXAM: BP 124/60 Pulse 70 Temp (Src) 97.8 (Oral) Ht 5' 5 (1.65m) Wt 258 lbs (117.0kg) LMP Postmenopausal GENERAL APPEARANCE: healthy, alert and no distress HENT: ear canals and TM's normal and nose and mouth without ulcers or lesions RESP: lungs clear to auscultation - no rales, rhonchi or wheezes CV: regular rates and rhythm, normal S1 S2, no S3 or S4 and no murmur, click or rub ABDOMEN: soft, nontender, no HSM or masses and bowel sounds normal NEURO: Normal strength and tone, sensory exam grossly normal, mentation intact and speech normal DIAGNOSTICS: EKG: appears normal, NSR, normal axis, normal intervals, no acute ST/T changes c/w ischemia, no LVH by voltage criteria Labs: see attached IMPRESSION: Reason for surgery/procedure: Osteoarthrosis Diagnosis/reason for consult: hyperlipidemia, depression For above listed surgery and anesthesia: Patient is at LOW risk for surgery/procedure and perioperative/procedure complications. RECOMMENDATIONS: Approval given to proceed with proposed procedure, without further diagnostic evaluation. Discontinue ASA 5 days prior to procedure to reduce bleeding risk. Discontinue NSAIDS 5 days prior to procedure to reduce bleeding risk. OK to take Effexor on AM of surgery with small sip of water. Signed Electronically by: Nader Garibay MD Copy of this evaluation report is provided to requesting physician. documented in this encounter Nursing Notes 09/16/2007 9:00 AM CDT >> LEIA HARLEY 09/16/2007 10:11 am Ekg done >> LEIA HARLEY 09/16/2007 9:52 am Are you currently ill with more than a cold: no Are you allergic to eggs or egg products: no Areyou allergic to Thimerosal: no Have you had a reaction to the Influenza vaccine in the past: no Have you diagnosised with Guillain-Burrton Syndrome: no >> LEIA HARLEY 09/16/2007 9:15 am Patient presents with: Pre-Op Exam Medications reviewed: The following discrepancies were noted: Dose *Dc Diclofen until surgery done EFFEXOR XR# 75 MG OR CP24 Route: Oral Si capsule daily with food DOCUSATE SODIUM 100 MG OR CAPS Route: Oral Si CAPSULE at bedtime Vit POTASSIUM CHLORIDE CR 20 MEQ OR TBCR Route: Oral Sig:TWO TABLETS DAILY MIRAPEX 0.5 MG OR TABS Route: Oral Si tabs Qhs NEXIUM 40 MG OR CPDR Route: Oral Si CAPSULE DAILY LIPITOR 20 MG OR TABS Route: Oral Si tab PO QD (Once per day) LASIX 20 MG OR TABS Route: Oral Sig:TWO TABLETS DAILY IN THE MORNING two tabs in the pm Initial BP 124/60 Pulse 70 Temp (Src) 97.8 (Oral) Ht 5' 5 (1.65m) Wt 258 lbs (117.0kg) LMP Postmenopausal Body mass index is 42.93 kg/(m^2). BP completed using cuff size: large Signed by .ANTOLIN Nelson documented in this encounter Plan of Treatment Not on filedocumented as of this encounter Procedures Procedure Name Priority Date/Time Associated Diagnosis Comme nts HCL BASIC METABOLIC Routine 09/16/2007 9:54 AM Preop Exam Othe r Results for this PANEL CDT Specified procedure are i n the results section. ZZC Routine 09/16/2007 Preop Exam Other ELECTROCARDIOGRAM, Specified COMP W/READ documented in this encounter Results (ABNORMAL) A.M.A. BASIC METABOLIC PANEL (09/16/2007 9:54 AM CDT) P athologist Signature Sodium 138 133 - 144 [place] mmol/L [facility] Potassium 4.0 3.4 - 5.3 [facility] mmol/L [facility] Chloride 97 94 - 109 [facility] mmol/L [facility] Carbon Dioxide 30 20 - 32 [place] mmol/L [facility] Anion Gap 11 6 - 17 [place] mmol/L [facility] Glucose 103 (H) 60 - 99 [place] mg/dL [facility] Urea Nitrogen 23 7 - 30 [place] mg/dL [facility] Creatinine 1.09 0.60 - [facility] 1.30 mg/dL [facility] GFR Estimate 53 (L) >60 [place] mL/min/1.7 [facility] LAB GFR Estimate If 64 >60 [place] Black mL/min/1.7 [facility] LAB Calcium 9.9 8.5 - 10.4 [place] mg/dL [facility] Specimen Anatomical Collection Method Collection Time Receive d Time (Source) Location / / Volume Laterality 09/16/2007 9:54 AM 7 9:59 CDT AM CDT Nader Garibay MD LABORATORY Performing Organization Address City/State/ZIP Code Phon e Number [facility] [address] [place] [address] [facility] ELECTROCARDIOGRAM, COMP W/READ (09/16/2007) Narrative This result has an attachment that is no t available. Nader Garibay MD EKG TECHNICAL documented in this encounter Visit Diagnoses Diagnosis Other specified pre-operative examinatio n - Primary Need for prophylactic vaccination and in oculation against influenza Edema Mixed hyperlipidemia Esophageal reflux documented in this encounter Care Teams Medical Records Manager Relationship Specialty Start Date End Date Nader Garibay MD PCP - General 01/01/02 10/16/17 documented as of this encounter
--- OUTSIDE RECORDS SUMMARY | 2022-10-07 10:50 | XMS_ITS | Encounter Summary ---
:1935 Author Organization [place] Address [address] [place] [address]. [place] [address] Care Team Providers Name Role Phone Nader Garibay MD Primary Care Provider Encounter Details Date Type Department Care Team Description 09/21/2007 Discharge Summary [facility] Tomas Eckert (Aircraft Mechanic Structures) Clinic [place] MD [place] [address] ORTHOPEDICS [address] [address] [place], [place] [id number] Social History Tobacco Use Types Packs/Day Years Used Date Smoking Tobacco: Never Alcohol Use Standard Drinks/Week Comments Yes 0 (1 standard drink = 0.6 oz pure alcoho l) SELDOM Sex Assigned at Date Recorded Not on file documented as of this encounter Progress Notes Tomas Eckert - 09/30/2007 9:43 AM [facility] FINAL PRINCIPAL DIAGNOSIS: End-stage osteoarthritis of the right knee. PROCEDURE PERFORMED THIS ADMISSION: Right total knee replacement. SECONDARY DIAGNOSIS: Mild blood loss anemia, restless leg syndrome, depression, esophageal reflux. HOSPITAL COURSE: Annia Sousa was admitted on the date of surgery. She underwent an uneventful total knee replacement. Her postoperative course was fairly benign. We used a patient-controlled analgesic device for the first postoperative night, and then discontinued it the following morning. She received routine prophylactic anticoagulation with Lovenox. The biggest problem was probably the patient's depression. She was not very confident of her abilities to progress in her ability to go to a transitional care unit. At the time of this dictation she is flexing her knee greater than 70 degrees. She can straight leg raise. She has still been requiring some supplemental oxygen, which will be gradually weaned. We will continue with Percocet for pain management, and with Lovenox for DVT prevention. Follow-up will be arranged in my office in 2 weeks. Herweight bearing status is weightbearing as tolerated. Electronically signed on 09/30/2007 09:43 by TOMAS ECKERT JR, MD [place]: nr Name: ANNIA SOUSA MRN: [id number] Account: [id number] : 1935 Admit Date: Discharge Date: 09/24/2007 Document: [id number] cc: [facility] HT COUNT OPERATOR documented in this encounter Plan of Treatment Not on filedocumented as of this encounter Visit Diagnoses Not on filedocumented in this encounter Care Teams Photographic Reproduction Technician Relationship Specialty Start Date End Date Nader Garibay MD PCP - General 01/01/02 10/16/17 documented as of this encounter
--- OUTSIDE RECORDS SUMMARY | 2022-10-07 10:50 | XMS_ITS | Encounter Summary ---
:1935 Author Organization [place] Address [address] [place] [address]. [place] [address] Care Team Providers Name Role Phone Nader Garibay MD Primary Care Provider Encounter Details Date Type Department Care Team Description 09/21/2007 Historic Notes INTERFACED REPORT Interface, Transcript on, Social History Tobacco Use Types Packs/Day Years Used Date Smoking Tobacco: Never Alcohol Use Standard Drinks/Week Comments Yes 0 (1 standard drink = 0.6 oz pure alcoho l) SELDOM Sex Assigned at Date Recorded Not on file documented as of this encounter Progress Notes Interface, Financial Consultant - 02/04/2011 8:02 AM CDT General Information General Information - <R> How to be addressed Vielka - <R> Melter Supervisor Open Hearth Furnace Needed No Patient Contact Information - <R> salesperson sheet music to [employer] spouse notify: - <R> Phone 1: [phone] - Cell - salesperson sheet music #2: Rito Snyder son - Phone 1: [phone] work - Phone 2: [phone] home Advance Directive Advanced Health Care Directive Information - <R> Do you have a Advance Yes Health Care Directive? - Directive Location: Copy in Chart - <R> Would you like to No receive information about Advanced Directives? Valuables Valuables - Valuables Yes - Type of Valuables Glasses; CPAP , cane, Health and Illness History Health and Illness History - <R> Reason for right total knee arthroplasty admission/chief complaint as stated by patient Previous reaction to anesthesia - Previous reaction to No anesthesia Prosthetic Implants - Prosthetic Implants Hip replacement; right hip Allergies Drug ?? ibuprofen;Other, Active f0?? tetracycline;Other(See Desc), Active f0?? Augmentin;Unknown, Active pard par Substance Use Tobacco Use - <R> Tobacco Use None Caffeine Use - <R> Caffeine Use Yes - Caffeine Type Coffee - Caffeine Amount 4 cups/day Alcohol Use - <R> History of Alcohol Use Yes - Alcohol Type Beer Wine Liquor - Alcohol Frequency Daily - Alcohol Amount 1 - [address]/Recreational Drug Use - <R> History of No Street/Recreational Drug Use Review of Systems Cardiac - Cardiac Problems Yes - Cardiac Conditions/Symptoms Elevated cholesterol Pulmonary - Pulmonary Problems Yes - Pulmonary Sleep apnea; CPAP Conditions/Symptoms Peripheral Vascular - Peripheral Vascular Yes Problems - Peripheral Vascular Edema; RLS on mirapex, DVT age 22 Conditions/Symptoms Neuro-Muscular - Neuro Muscular Problems Yes - Neuro Muscular Stiffness Decreased ROM Joint Conditions/Symptoms pain/swelling Unsteady gait OA hips , knees, shoulder ENT - ENT Problems No GI - GI Problems Yes - GI Conditions/Symptoms Diverticulitis; GERD; Constipation; Colace, bowel resection 2004 for ruptured diverticulitis, nex for hiatal hernia Bowel Pattern - Date of last bowel movement Date of last BM, 09/20/07 - Problems No Skin - Skin Problems No Immune - <R> Immune Problems No - <R> Immunizations Current Immunizations current - Influenza vaccine Date of last influenza vaccine, 2006 Endocrine - <R> Endocrine Problems No Mental Health - <R> Mental Health Problems Yes - Mental Health Depression; effexor stable Conditions/Symptoms Cognitive Perceptual Chronic Pain - History of Chronic Pain Yes - Pain Location (pain location) right knee Sensory Deficits/Cognition - <R> Alterations in No Sensation - <R> Vision Problems Yes - Vision problems present Decreased visual acuity - <R> Hearing Problems No - <R> Use of Sensory Yes Assistive Devices - Sensory Assistive Devices Glasses - <R> Reading Problems No - <R> Communication Problems No - <R> Changes in thought No Process/Behavior Activity-Exercise/Self Care Functional Screen - <R> Ambulation 1 - Requires assistive equipment for ambulation - <R> Transferring 0 - Independent with transfers - <R> Toileting 0- Independent with toileting - <R> Bathing 0- Independent with bathing - <R> Dressing 0- Independent with dressing - <R> Eating 0- Independent with eating - <R> Swallowing no problem - <R> Fall history within No history of falls last six months - <R> Which of the above None functional risks had a recent onset or change? Home Equipment - Equipment Used at Home Yes - Equipment Bath bench Living Environment - Lives with Spouse - Describe living environment 4 level town home - Any physical barriers in Yes home - Barriers in home Bed and bath are not on the first floor; Number of stairs; Tub/shower is not walk in; 6 steps to each level Nutrition/Metabolic Diet Information - Diet Regular Nutrition Risk Screen - <R> Nutrition Risk Screen No risk indicators present Dental Information - Dentures No Sleep/Relaxation Sleep Pattern - <R> Problems Sleeping Yes - Problems Awakens in the middle of the night; Sleep apnea; on CPAP, nocturia - What equipment/aids CPAP /routines help you sleep/relax Role Relationships Abuse Risk Screen - <R> QUESTION TO PATIENT: No. Are you now or have you ever been in a relationship where you have been abused physically, emotionally or sexually? - <R> NURSE OBSERVATION: Is No there reasonable cause to believe the patient has been abused, assaulted, is self abusive, neglected or exploited? Coping-Stress Tolerance Coping-Stress - <R> Have you had a recent Yes major change/significant loss/stressor in your life - Major Change/ Loss Marriage Values/Beliefs/Spiritual Care Values/Beliefs/Spiritual Care - What cultural, spiritual, prayer; pt said she and her are baptist practices/values very baptist are important for us to know? - <R> Would you like pastoral Contacted:, gas and oil checker, congregational care/clergy/improvement advisor notified? - Comments pt and her (of 2 years) both lost previous spouses, and some of their children are not yet supportive of their marriage Mutuality/Individual Preferences Mutuality/Preferences - <R> What information would none help us give you more personalized care? - <R> What if any limitations None on visitors, TV or phone calls would you like Signatures Alexsander David (Greenskeeper)[Signed 22-Sep-2007 13:22] Authored: Values/Beliefs/Spiritual Care SUKHJINDER LEVY (RN)[Signed 21-Sep-2007 11:16] Authored: General Information, Advance Directive, Valuables, Health and Illness History, Allergies, Substance Use, Review of Systems, Cognitive Perceptual, Activity-Exercise/Self Care, Nutrition/Metabolic, Sleep/Relaxation, Role Relationships, Coping-Stress Tolerance, Values/Beliefs/Spiritual Care, Mut uality/Individual Preferences [place] (OT)[Signed 23-Sep-2007 10:29] Authored: General Information, Activity-Exercise/Self Care documented in this encounter Plan of Treatment Not on filedocumented as of this encounter Visit Diagnoses Not on filedocumented in this encounter Care Teams Coach Professional Athletes Relationship Specialty Start Date End Date Nader aGribay MD PCP - General 01/01/02 10/16/17 documented as of this encounter
--- OUTSIDE RECORDS SUMMARY | 2022-10-07 10:50 | XMS_ITS | Encounter Summary ---
:1935 Author Organization [place] Address [address] [place] [address]. [place] [address] Care Team Providers Name Role Phone Nader Garibay MD Primary Care Provider Encounter Details Date Type Department Care Team Description 04/29/2007 Historic Results [facility] Heart Unknown, [facility] ide[address] [place] [address] Social History Tobacco Use Types Packs/Day Years Used Date Smoking Tobacco: Never Alcohol Use Standard Drinks/Week Comments Yes 0 (1 standard drink = 0.6 oz pure alcoho l) SELDOM Sex Assigned at Date Recorded Not on file documented as of this encounter Plan of Treatment Not on filedocumented as of this encounter Procedures Procedure Name Priority Date/Time Associated Diagnosis Comme nts ECHO CARDIAC - HIM SCAN 04/29/2007 12:00 AM CDT - ARCHIVE documented in this encounter Results ECHO CARDIAC - HIM SCAN - ARCHIVE (04/29/2007 12:00 AM CDT) Anatomical Region Laterality Modality Echocardiography Specimen (Source) Anatomical Location Collection Method / Collectio n Time Received Time / Laterality Volume 04/29/2007 Narrative This result has an attachment that is no t available. Provider Scan CV ECHO ORDERABLES documented in this encounter Visit Diagnoses Not on filedocumented in this encounter Care Teams Rubber Goods Inspector Tester Relationship Specialty Start Date End Date Nader Garibay MD PCP - General 01/01/02 10/16/17 documented as of this encounter
--- OUTSIDE RECORDS SUMMARY | 2022-10-07 10:51 | XMS_ITS | Encounter Summary ---
:1935 Author Organization [place] Address [address] [place] [address] Care Team Providers Name Role Phone Nader Garibay MD Primary Care Provider Reason for Visit Reason Onset Date Comments Results 08/01/2006 labs from 07/09 Encounter Details Date Type Department Care Team Description 08/01/2006 Telephone [facility] Nader Garibay [place] (labs from [facility] MD Bro 07/09) [address] [address] [phone] Social History Tobacco Use Types Packs/Day Years Used Date Smoking Tobacco: Never Alcohol Use Standard Drinks/Week Comments Yes 0 (1 standard drink = 0.6 oz pure alcoho l) SELDOM Sex Assigned at Date Recorded Not on file documented as of this encounter Miscellaneous Notes Telephone Encounter - Sheridan Shields - 08/04/2006 3:46 PM CDT Pt advised. Telephone Encounter - Court Armenta - 08/01/2006 4:08 PM CDT Message left on machine, gave nurse line number to call back. Court Armenta RN Telephone Encounter - Nader Garibay - 08/01/2006 4:04 PM CDT Should follow-up with me to discuss Telephone Encounter - Court Armenta - 08/01/2006 3:03 PM CDT Pt calling requesting labs from 07/09, did give results as were viewed by pcp and are normal. She is wanting to know next step as still having sweating and sx from 07/07, no change in symptoms per pt. Court Armenta RN documented in this encounter Plan of Treatment Not on filedocumented as of this encounter Visit Diagnoses Not on filedocumented in this encounter Care Teams Striker Off Relationship Specialty Start Date End Date Nader Garibay MD PCP - General 01/01/02 10/16/17 documented as of this encounter
--- OUTSIDE RECORDS SUMMARY | 2022-10-07 10:51 | XMS_ITS | Encounter Summary ---
:1935 Author Organization [place] Address [address] [place] [address] Care Team Providers Name Role Phone Nader Garibay MD Primary Care Provider Reason for Visit Reason Onset Date Comments Stress Echo 04/03/2007 Encounter Details Date Type Department Care Team Description 04/03/2007 Telephone [facility] Nader Garibay MD Stress Echo [address] [address] [place], [place] [address] [phone] Social History Tobacco Use Types Packs/Day Years Used Date Smoking Tobacco: Never Alcohol Use Standard Drinks/Week Comments Yes 0 (1 standard drink = 0.6 oz pure alcoho l) SELDOM Sex Assigned at Date Recorded Not on file documented as of this encounter Miscellaneous Notes Telephone Encounter - Opal Bullock - 04/03/2007 10:16 AM CDT Pt calling, states wrong test ordered,requires adenosine stress test/ chemical test to [facility].eviewing chart, appears this was indeed ordered correctly, checked with [facility], they confirmed and will callpt to schedule. As stated on order: Nuclear (Cardiolite)/Exercise Stress Test for dyspnea on exertion. FYI: If patient is unable to exercise adequately, MD is able to convert to Adenosine during exam. Kings Bullock RN documented in this encounter Plan of Treatment Not on filedocumented as of this encounter Visit Diagnoses Not on filedocumented in this encounter Care Teams Java Security Architect Relationship Specialty Start Date End Date Nader Garibay MD PCP - General 01/01/02 10/16/17 documented as of this encounter
--- OUTSIDE RECORDS SUMMARY | 2022-10-07 10:51 | XMS_ITS | Encounter Summary ---
:1935 Author Organization [place] Address [address] [place] [address]. [place] [address] Care Team Providers Name Role Phone Nader Garibay MD Primary Care Provider Reason for Referral - Closed Specialty Diagnoses / Procedures Referred By Contact Refer red To Contact Diagnoses Edema Other dyspnea and respiratory abnormality Nader Garibay MD [address] 5542 0 Referral ID Status Reason Start Date Expiration Date Visits Requ ested Visits Authorized [id number] Closed 03/31/2007 11/16/2011 1 1 Reason for Visit Reason Comments Edema c/o increased swelling in le gs Encounter Details Date Type Department Care Team Description 03/31/2007 Office Visit [facility] Nader Garibay BENIGN HY PERTENSION; Clinic [place] MD Bro EDEMA; [place] [address] [facility] RESPIRATORY ABNORM NEC; [address] [place] [address] MIXED HYPERLIPIDEMIA; [place], [place] LOC PRIM OSTEOART-L/LEG; [id number] RESTLESS LEG SYNDROME; [phone] ESOPHAGEAL REFL UX; (Work) DEPRESSIVE DISORDER NEC Social History Tobacco Use Types Packs/Day Years Used Date Smoking Tobacco: Never Alcohol Use Standard Drinks/Week Comments Yes 0 (1 standard drink = 0.6 oz pure alcoho l) SELDOM Sex Assigned at Date Recorded Not on file documented as of this encounter Last Filed Vital Signs Vital Sign Reading Time Taken Comments Blood Pressure 142/80 03/31/2007 10:30 AM CDT Pulse 76 03/31/2007 10:30 AM CDT Temperature - - Respiratory Rate - - Oxygen Saturation - - Inhaled Oxygen Concentration - - Weight 116.1 kg (256 lb) 03/31/2007 10:30 AM CDT Height - - Body Mass Index 41.95 01/08/2006 1:45 PM APPLICATION INTEGRATOR documented in this encounter Progress Notes Nader Garibay - 03/31/2007 12:02 PM CDT HPI: Vielka Snyder is a 71 year old female who presents for evaluation of increased swelling as of late. Patient usually has increased edema at end of day, usually gone by AM. Lately, has been persistent and increasing. Patient also more fatigued, more SOB - she does have [place], has not been compliant with her CPAP. Has stress thall about 3 years ago, normal. Patient Active Problem List Diagnoses Code ??? 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 EDEMA 782.3 ??? DEPRESSIVE DISORDER NEC 311 ??? ESOPHAGEAL REFLUX 530.81 ??? MIXED HYPERLIPIDEMIA 272.2 ??? OTHER UNSPEC SLEEP APNEA 780.57 ??? OBESITY NOS 278.00 ??? RESTLESS LEG SYNDROME 333.99 Current outpatient prescriptions Medication Sig ??? HYDROCHLOROTHIAZIDE 25 MG OR TABS 1 -2TABsPO QD (Once per day) ??? LASIX 20 MG OR TABS ONE TABLET DAILY IN THE MORNING ??? POTASSIUM CHLORIDE CR 20 MEQ OR TBCR ONE DAILY ??? VOLTAREN 75 MG OR TBEC 1 TABLET TWICE DAILY ??? MIRAPEX 0.5 MG OR TABS 2 tabs Qhs ??? NEXIUM 40 MG OR CPDR 1 CAPSULE DAILY ??? EFFEXOR XR# 75 MG OR CP24 3 capsules daily with food ??? LIPITOR 20 MG OR TABS 1 tab PO QD (Once per day) ??? DIFLUCAN 150 MG OR TABS ONE TABLET FOR ONE DOSE ??? NYSTATIN (TOPICAL) [id number] U/GM EX CREA APPLY TWICE DAILY Past [...] NEGATIVE for ear, mouth and throat problems RESP:as above CV: NEGATIVE for chest pain, palpitations or peripheral edema GI: NEGATIVE for nausea, abdominal pain, heartburn, or change in bowel habits : NEGATIVE for frequency, dysuria, or hematuria EXAM: BP 142/80 Pulse 76 Wt 256 lbs (116.1kg) LMP Postmenopausal GENERAL APPEARANCE: healthy, alert and [...] MS: 1-2+ edema bilateral lower extremities. Assessment: 401.1 BENIGN HYPERTENSION Note: Plan: HYDROCHLOROTHIAZIDE 25 MG OR TABS 782.3 EDEMA Note: Suspect related to right heart failure, poorly controlled [place]. Gave supply of Lasix to be usedon 4-5 day basis (with K+ supplementation), then resume HCTZ - will re-check stress test, and may need regular ECHO to eval for pulm HTN. Plan: HYDROCHLOROTHIAZIDE 25 MG OR TABS, CONSULT [facility], LASIX 20 MG OR TABS, POTASSIUM CHLORIDE CR 20 MEQ OR TBCR, A.M.A. COMPREHENSIVE MET.PANEL 786.09 RESPIRATORY ABNORM NEC Note: Plan: CONSULT [facility] 272.2 MIXED HYPERLIPIDEMIA Note: Plan: A.M.A. LIPID PANEL, A.M.A. COMPREHENSIVE MET.PANEL, LIPITOR 20 MG OR TABS 715.16 LOC PRIM OSTEOART-L/LEG Note: Plan: VOLTAREN 75 MG OR TBEC 333.99 RESTLESS LEG SYNDROME Note: Plan: MIRAPEX 0.5 MG OR TABS 530.81 ESOPHAGEAL REFLUX Note: Plan: NEXIUM 40 MG OR CPDR 311 DEPRESSIVE DISORDER NEC Note: Plan: EFFEXOR XR# 75 MG OR CP24 Nader Garibay MD documented in this encounter Nursing Notes 03/31/2007 10:30 AM CDT >> SANA DHALIWAL 03/31/2007 10:36 am Patient presents with: Edema - c/o increased swelling in legs Medications reviewed: The following discrepancies were noted: dose- pt took 2 HCTZ last night and 1 this AM due to increased swelling Initial BP 142/80 Pulse 76 Wt 256 lbs (116.1kg) LMP Postmenopausal Estimated Body mass index is 41.94 kg/(m^2) as calculated from: Height of 5' 5.5 (1.664 m) as of 01/08/06 Weight of 256 lbs (116.121 kg) as of this encounter BP completed using cuff size: large Signed by SANA DHALIWAL MA documented in this encounter Plan of Treatment Not on filedocumented as of this encounter Procedures Procedure Name Priority Date/Time Associated Diagnosis Comme nts HCL COMPREHENSIVE Routine 03/31/2007 11:12 Mixed Hyperli pidemia Results for this METABOLIC PANEL AM CDT Edema procedure ar e in the results section. CL AFF A.M.A. LIPID Routine 03/31/2007 11:12 Mixed Hyperlipide kashif Results for this PANEL AM CDT procedure are i n the results section. documented in this encounter Results (ABNORMAL) A.M.A. COMPREHENSIVE MET.PANEL (03/31/2007 11:12 AM CDT) P athologist Signature Sodium 139 133 - 144 [place] mmol/L [facility] Potassium 4.1 3.4 - 5.3 [place] mmol/L [facility] Chloride 101 94 - 109 [facility]L [facility] Carbon Dioxide 30 20 - 32 [place] mmol/L [facility] Anion Gap 9 6 - 17 [place] mmol/L [facility] Glucose 91 60 - 99 [place] mg/dL [facility] Urea Nitrogen 22 7 - 30 [place] mg/dL [facility] Creatinine 1.18 0.60 - [place] 1.30 mg/dL [facility] GFR Estimate 48 (L) >60 [place] mL/min/1.7 [facility] m2 LAB GFR Estimate If 58 (L) >60 [place] mL/min/1.7 [facility] m2 LAB Calcium 9.1 8.5 - 10.4 [place] mg/dL [facility] Bilirubin Total 0.3 0.2 - 1.3 [place] mg/dL [facility] Albumin 4.1 3.2 - 4.5 [place] g/dL [facility] Protein Total 7.1 6.0 - 8.2 [place] g/dL [facility] Alkaline 80 40 - 150 [place] Phosphatase U/L [facility] ALT 52 (H) 0 - 50 U/L [facility] AST 40 0 - 45 U/L [facility] Specimen Anatomical Collection Method Collection Time Receive d Time (Source) Location / / Volume Laterality 03/31/2007 11:12 03/31/2007 AM CDT 11:17 AM CDT Nader Garibay MD LABORATORY Performing Organization Address City/State/ZIP Code Phon e Number [facility] [address] [place] [address] [facility] (ABNORMAL) A.M.A. LIPID PANEL (03/31/2007 11:12 AM CDT) P athologist Signature Cholesterol 185 0 - 200 [place] mg/dL [facility] Comment: LDL Cholesterol is the primary guide to therapy: LDL-cholesterol goal in high risk patients is <100 mg/dL and in very high risk patients is <70 mg/dL. The NCEP recommends further evaluation of: patients with cholesterol <200 mg/dL if additional risk factors are present, cholesterol >240 mg/dL, triglycerides >150 mg/dL, or HDL <40 mg/dL. Triglycerides 163 (H) 0 - 150 mg/dL [facility] HDL Cholesterol 54 50 - 110 mg/dL [facility] LDL Cholesterol Calculated 98 0 - 129 mg/dL [facility] VLDL-Cholesterol 33 (H) 0 - 30 mg/dL [place] [facility] Cholesterol/HDL Ratio 3.4 0.0 - 5.0 [facility] Specimen Anatomical Collection Method Collection Time Receive d Time (Source) Location / / Volume Laterality 03/31/2007 11:12 03/31/2007 AM CDT 11:17 AM CDT Nader Garibay MD LABORATORY Performing Organization Address City/State/ZIP Code Phon e Number [facility] [address] [place] [address] [facility] documented in this encounter Visit Diagnoses Diagnosis Essential hypertension, benign Edema Other dyspnea and respiratory abnormalit y Mixed hyperlipidemia Primary localized osteoarthrosis, lower leg RESTLESS LEG SYNDROME 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
--- OUTSIDE RECORDS SUMMARY | 2022-10-07 10:51 | XMS_ITS | Encounter Summary ---
:1935 Author Organization [place] Address [address] [place] [address]. [place] [address] Care Team Providers Name Role Phone Nader Garibay MD Primary Care Provider Reason for Visit Reason Onset Date Comments Formulary Issue 10/06/2006 Encounter Details Date Type Department Care Team Description 10/06/[address] [facility] Nader Garibay, Formulary Issue [facility] [address] [phone] [place], [place] [id number] (Wo rk) Social History Tobacco Use Types Packs/Day Years Used Date Smoking Tobacco: Never Alcohol Use Standard Drinks/Week Comments Yes 0 (1 standard drink = 0.6 oz pure alcoho l) SELDOM Sex Assigned at Date Recorded Not on file documented as of this encounter Miscellaneous Notes Telephone Encounter - Scarlett Dhaliwal - 10/27/2006 2:57 PM CST Pt was in clinic today to see Lani DHALIWAL MA PHONE INFORMATION SUPERVISOR Telephone Encounter - Nader Garibay - 10/24/2006 1:35 PM CST I'm confused. Does she want Prilosec, since it did work? Or does she want to go through the PA process for Nexium?Please clarify. PHONE INFORMATION SUPERVISOR Telephone Encounter - Maria Luisa Maza - 10/24/2006 8:49 AM CST Just tried prilosec and it did work. It is cheaper for her to get RX for the med then to by it Over the counter. Pt states she has a hiatal Hernia. She gets her meds through the mail order pharm [facility]- they are the pharm provider for her [employer] insurance. Pt states she has been on the nexium for 2 yrs and the company just needs it prior authed every year. Maria Luisa Maza RN. PHONE INFORMATION SUPERVISOR Telephone Encounter - Scarlett Dhaliwal - 10/20/2006 11:31 AM CST left message to call back SCARLETT DHALIWAL MA PHONE INFORMATION SUPERVISOR Telephone Encounter - Maria Luisa Maza - 10/10/2006 10:42 AM CST Left message on answering machine for pt to call back. PHONE INFORMATION SUPERVISOR Telephone Encounter - Nader Garibay - 10/07/2006 11:15 PM CST Please get more information from patient regarding which PPIs she has tried. I only see Prilosec on her past medication list - we may have to try different PPI. PHONE INFORMATION SUPERVISOR Telephone Encounter - Sheridan Shields - 10/06/2006 12:13 PM CST Pt calling to say we need to call to get Nexium PA'd. Will you do this? PHONE INFORMATION SUPERVISOR documented in this encounter Plan of Treatment Not on filedocumented as of this encounter Visit Diagnoses Not on filedocumented in this encounter Care Teams Rn Rehabilitation Relationship Specialty Start Date End Date Nader Garibay MD PCP - General 01/01/02 10/16/17 documented as of this encounter
--- OUTSIDE RECORDS SUMMARY | 2022-10-07 10:51 | XMS_ITS | Encounter Summary ---
:1935 Author Organization [place] Address [address] [place] [address]. [place] [address] Care Team Providers Name Role Phone Nader Garibay MD Primary Care Provider Encounter Details Date Type Department Care Team Description 04/09/2007 Historic Results [facility] Heart Unknown, [facility] ider [address] [place] [address] Social History Tobacco Use Types Packs/Day Years Used Date Smoking Tobacco: Never Alcohol Use Standard Drinks/Week Comments Yes 0 (1 standard drink = 0.6 oz pure alcoho l) SELDOM Sex Assigned at Date Recorded Not on file documented as of this encounter Plan of Treatment Not on filedocumented as of this encounter Procedures Procedure Name Priority Date/Time Associated Diagnosis Comme nts NUCLEAR CARDIAC - HIM 04/09/2007 12:00 AM CDT SCAN - ARCHIVE documented in this encounter Results NUCLEAR CARDIAC - HIM SCAN - ARCHIVE (04/09/2007 12:00 AM CDT) Anatomical Region Laterality Modality Other Specimen (Source) Anatomical Location Collection Method / Collectio n Time Received Time / Laterality Volume 04/09/2007 Narrative This result has an attachment that is no t available. Provider Scan IMG NM ORDERABLES documented in this encounter Visit Diagnoses Not on filedocumented in this encounter Care Teams Six Pack Packer Relationship Specialty Start Date End Date Nader Garibay MD PCP - General 01/01/02 10/16/17 documented as of this encounter
--- OUTSIDE RECORDS SUMMARY | 2022-10-07 10:51 | XMS_ITS | Encounter Summary ---
:1935 Author Organization [place] Address [address] [place] [address] Care Team Providers Name Role Phone Nader Garibay MD Primary Care Provider Reason for Visit Reason Comments Results Encounter Details Date Type Department Care Team Description 07/07/2006 Office Visit [facility] Nader Garibay MIXED HYP ERLIPIDEMIA; Clinic [place] MD Bro ABNORMAL WEIGHT GAIN; [place] [address] [address] [phone] Social History Tobacco Use Types Packs/Day Years Used Date Smoking Tobacco: Never Alcohol Use Standard Drinks/Week Comments Yes 0 (1 standard drink = 0.6 oz pure alcoho l) SELDOM Sex Assigned at Date Recorded Not on file documented as of this encounter Last Filed Vital Signs Vital Sign Reading Time Taken Comments Blood Pressure 122/64 07/07/2006 10:00 AM CDT Pulse 76 07/07/2006 10:00 AM CDT Temperature - - Respiratory Rate - - Oxygen Saturation - - Inhaled Oxygen Concentration - - Weight 103.9 kg (229 lb) 07/07/2006 10:00 AM CDT Height - - Body Mass Index 37.53 01/08/2006 1:45 PM FORMS BUILDER documented in this encounter Progress Notes Nader Garibay - 07/07/2006 2:25 PM CDT HPI: Vielka Snyder is a 70 year old female who presents for follow-up. Abdmoinal pain last week, which prompted her to make today's appointment, has resolved. She feels iswas secondary to tight-fitting clothes, which leads to today's second problem: Patient concerned about her weight gain. She rates her diet as OK and does not exercise. She has family history ofhyperfunctioning adrenal gland - also complaining of intermittent flushing. TSH earlier this year WNL. Patient Active Problem List Diagnoses Code ??? 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 EDEMA 782.3 ??? DEPRESSIVE DISORDER NEC 311 ??? ESOPHAGEAL REFLUX 530.81 ??? MIXED HYPERLIPIDEMIA 272.2 ??? OTHER UNSPEC SLEEP APNEA 780.57 ??? OBESITY NOS 278.00 ??? RESTLESS LEG SYNDROME 333.99 Current outpatient prescriptions Medication Sig ??? HYDROCHLOROTHIAZIDE 25 MG OR TABS 1 TAB PO QD (Once per day) ??? MIRAPEX 0.5 MG OR TABS 2 tabs Qhs ??? VOLTAREN 75 MG OR TBEC 1 TABLET TWICE DAILY ??? LIPITOR 20 MG OR TABS 1 tab PO QD (Once per day) ??? EFFEXOR XR# 75 MG OR CP24 3 capsules daily with food ??? NEXIUM 40 MG [...] Paternal Grandmother OVARIAN ??? Heart Paternal Grandfather [place] ??? Depression Son History Social History ??? [...] : NEGATIVE for frequency, dysuria, or hematuria N: NEGATIVE for weakness, dizziness or paresthesias ENDOCRINE: as above EXAM: BP 122/64 Pulse 76 Wt 229 lbs (103.9kg) LMP Postmenopausal GENERAL APPEARANCE: healthy, alert and no distress. ? Cushingoid EYES: EOMI, fundi benign- PERRL HENT: ear canals and TM's normal and nose and mouth without ulcers or lesions RESP: lungs clear to auscultation - no rales, rhonchi or wheezes CV: regular rates and rhythm, normal S1 S2, no S3 or S4 and no murmur, click or rub - ABDOMEN: Obese soft, nontender, no HSM or masses and bowel sounds normal Assessment: 272.2 MIXED HYPERLIPIDEMIA Note: Reasonably well-controlled, continue current medications Plan: A.M.A. LIPID PANEL, A.M.A. COMPREHENSIVE MET.PANEL 783.1 ABNORMAL WEIGHT GAIN Note: Plan: CORTISOL, FREE 24 HOUR URINE 782.62 FLUSHING Note: Plan: CATECHOLAMINE - URINE Nader Garibay MD documented in this encounter Nursing Notes 07/07/2006 10:00 AM CDT >> SANA DHALIWAL 07/07/2006 9:50 am Vielka Snyder presents to go over lab test done this AM, also discuss weight gain, also look at spot on back. Initial BP 122/64 Pulse 76 Wt 229 lbs (103.9kg) LMP Postmenopausal Estimated Body mass index is 37.51 kg/(m^2) as calculated from: Height of 5' 5.5 (1.664 m) as of 01/08/06 Weight of 229 lbs (103.874 kg) as of this encounter. BP completed using cuff size: large SANA DHALIWAL MA documented in this encounter Plan of Treatment Not on filedocumented as of this encounter Procedures Procedure Name Priority Date/Time Associated Diagnosis Comme nts HCL CORTISOL, FREE 24 Routine 07/07/2006 11:05 Abnormal Weight Gain Results for this HOUR URINE AM CDT procedure are i n the results section. HCL COMPREHENSIVE Routine 07/07/2006 9:00 Mixed Hyperlipidemia Results for this METABOLIC PANEL AM CDT procedure ar e in the results section. CL AFF A.M.A. LIPID Routine 07/07/2006 9:00 Mixed Hyperlipidem ia Results for this PANEL AM CDT procedure are i n the results section. documented in this encounter Results CORTISOL, FREE 24 HOUR URINE (07/07/2006 11:05 AM CDT) athologist Signature Cortisol Free 24 [place] Duration Urine [facility] Volume 2800 [facility] Cortisol Free 27.3 [place] Urine [facility] Comment: Reference range: < ?? 45.0 Unit: ug/d Creatinine Urine/Volume 49 [facility] EW [facility] Comment: Unit: mg/dL Creatinine Urine/24hr 1372 [facility] Comment: Reference range: 500 to 1400 Unit: mg/d (Note) The above 5 tests were performed at: [facility] [place], [address] [facility] ??[id number] ?? ??[email or web address] Specimen Anatomical Collection Method Collection Time Receive d Time (Source) Location / / Volume Laterality 07/07/2006 11:05 07/09/2006 AM CDT 11:10 AM CDT Nader Garibay MD LABORATORY Performing Organization Address City/State/ZIP Code Phon e Number [facility] [address] [place] [address] [facility] (ABNORMAL) A.M.A. COMPREHENSIVE MET.PANEL (07/07/2006 9:00 AM CDT) athologist Signature Sodium 142 133 - 144 [place] mmol/L [facility] Potassium 4.4 3.4 - 5.3 [place] mmol/L [facility] Chloride 103 94 - 109 [place] mmol/L [facility] Carbon Dioxide 31 20 - 32 [place] mmol/L [facility] Anion Gap 8 6 - 17 [place] mmol/L [facility] Glucose 108 60 - 110 [place] mg/dL [facility] Urea Nitrogen 24 7 - 30 [place] mg/dL [facility] Creatinine 1.10 0.60 - [place] 1.30 mg/dL [facility] GFR Estimate 53 (L) >60 [place] mL/min/1.7 [facility] m2 LAB GFR Estimate If 64 >60 [place] mL/min/1.7 [facility] m2 LAB Calcium 9.3 8.5 - 10.4 [place] mg/dL [facility] Bilirubin Total 0.4 0.2 - 1.3 [place] mg/dL [facility] Albumin 4.0 3.2 - 4.5 [place] g/dL [facility] Protein Total 6.8 6.0 - 8.2 [place] g/dL [facility] Alkaline 68 40 - 150 [place] Phosphatase U/L [facility] ALT 51 (H) 0 - 50 U/L [facility] AST 43 0 - 45 U/L [facility] Specimen Anatomical Collection Method Collection Time Receive d Time (Source) Location / / Volume Laterality 07/07/2006 9:00 AM 6 9:05 CDT AM CDT Nader Garibay MD LABORATORY Performing Organization Address City/State/ZIP Code Phon e Number [facility] [address] [place] [address] [facility] (ABNORMAL) A.M.A. LIPID PANEL (07/07/2006 9:00 AM CDT) P athologist Signature Cholesterol 208 (H) 0 - 200 [place] mg/dL [facility] Comment: LDL Cholesterol is the primary guide to therapy: LDL-cholesterol goal in high risk patients is <100 mg/dL and in very high risk patients is <70 mg/dL. The NCEP recommends further evaluation of: patients with cholesterol <200 mg/dL if additional risk factors are present, cholesterol >240 mg/dL, triglycerides >150 mg/dL, or HDL <40 mg/dL. Triglycerides 149 0 - 150 mg/dL [facility] HDL Cholesterol 50 50 - 110 mg/dL [facility] LDL Cholesterol Calculated 129 0 - 129 mg/dL [facility] Comment: LDL Cholesterol is the primary guide to therapy: LDL-cholesterol goal in high risk patients is <100 mg/dL and in very high risk patients is <70 mg/dL. VLDL-Cholesterol 30 0 - 30 mg/dL [place] [facility] Cholesterol/HDL Ratio 4.2 0.0 - 5.0 [facility] Specimen Anatomical Collection Method Collection Time Receive d Time (Source) Location / / Volume Laterality 07/07/2006 9:00 AM 6 9:05 CDT AM CDT Nader Garibay MD LABORATORY Performing Organization Address City/State/ZIP Code Phon e Number [facility] [address], [place] [address] [facility] documented in this encounter Visit Diagnoses Diagnosis Mixed hyperlipidemia Abnormal weight gain Flushing documented in this encounter Care Teams Audiovisual Production Specialist Relationship Specialty Start Date End Date Nader Garibay MD PCP - General 01/01/02 10/16/17 documented as of this encounter
--- OUTSIDE RECORDS SUMMARY | 2022-10-07 10:51 | XMS_ITS | Encounter Summary ---
:[address] Address [address] [place] [address] Care Team Providers Name Role Phone Nader Garibay MD Primary Care Provider Reason for Visit Reason Comments Pharyngitis c/o sore throat times four d ays Encounter Details Date Type Department Care Team Description 10/27/2006 Office Visit [facility] Nader Garibay ACUTE PHA RYNGITIS Clinic Tiny Crabtree MD (Primary Dx) [place] [address] [place] [phone] Social History Tobacco Use Types Packs/Day Years Used Date Smoking Tobacco: Never Alcohol Use Standard Drinks/Week Comments Yes 0 (1 standard drink = 0.6 oz pure alcoho l) SELDOM Sex Assigned at Date Recorded Not on file documented as of this encounter Last Filed Vital Signs Vital Sign Reading Time Taken Comments Blood Pressure 136/70 10/27/2006 10:45 AM SECURITY TEST ENGINEER Pulse 76 10/27/2006 10:45 AM SECURITY TEST ENGINEER Temperature 36.3 ??C (97.3 ??F) 10/27/2006 10:45 AM SECURITY TEST ENGINEER Respiratory Rate - - Oxygen Saturation - - Inhaled Oxygen Concentration - - Weight 108.9 kg (240 lb) 10/27/2006 10:45 AM SECURITY TEST ENGINEER Height - - Body Mass Index 39.33 01/08/2006 1:45 PM SECURITY TEST ENGINEER documented in this encounter Progress Notes Nader Garibay - 10/27/2006 12:11 PM CST SUBJECTIVE: Vielka Snyder is here today because of:Sore Throat The patient has had symptoms of sore throat. Onset of symptoms was 4 days ago. Course of illness is same. Patient has exposure to illness at home or work/school. Patient denies fever, cough, earache, nasal congestion/runny nose, headache, facial pressure and sinus pain Treatment measures tried include sore throat losenges. Patient is not a smoker Current outpatient prescriptions Medication Sig ??? HYDROCHLOROTHIAZIDE 25 MG OR TABS 1 TAB PO QD (Once per day) ??? VOLTAREN 75 MG OR TBEC 1 TABLET TWICE DAILY ??? MIRAPEX 0.5 MG OR TABS 2 tabs Qhs ??? NEXIUM 40 MG OR CPDR 1 CAPSULE DAILY ??? EFFEXOR XR# 75 MG OR CP24 3 capsules daily with food ??? LIPITOR 20 MG OR TABS 1 tab PO QD (Once per day) Allergies Allergen Reactions ??? 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 Tetracycline ??? Augmentin Nausea and Vomiting OBJECTIVE: Vital signs: BP 136/70 Pulse 76 Temp (Src) 97.3 (Oral) Wt 240 lbs (108.9kg) LMP Postmenopausal General: healthy, alert and no distress Skin is unremarkable. HEENT: bilateral TM normal without fluid or infection, neck without nodes, pharynx erythematous without exudate and sinuses nontender. Lungs chest clear to IPPA, no tachypnea, retractions or cyanosis and Heart exam: S1, S2 normal, no murmur, rub or gallop, regular rate and rhythm Rapid Strep Test is performed - NEGATIVE ASSESSMENT: 462 ACUTE PHARYNGITIS (primary encounter diagnosis) Note: No evidence of strep - likely viral URI - symptomatic therapy with tylenol/rest/fluids, etc. Plan: STREP GROUP A AG (RAPID), BETA STREP CONFIRM Nader Garibay MD RITY TEST ENGINEER documented in this encounter Nursing Notes 10/27/2006 10:45 AM CST >> SUE MALONEY 10/27/2006 10:57 am Patient presents with: Pharyngitis - c/o sore throat times four days Medications reviewed: No discrepancies identified. Initial BP 136/70 Pulse 76 Temp (Src) 97.3 (Oral) Wt 240 lbs (108.9kg) LMP Postmenopausal Estimated Body mass index is 39.32 kg/(m^2) as calculated from: Height of 5' 5.5 (1.664 m) as of 01/08/06 Weight of 240 lbs (108.863 kg) as of this encounter BP completed using cuff size: large Signed by Sue Maloney LPN documented in this encounter Plan of Treatment Not on filedocumented as of this encounter Procedures Procedure Name Priority Date/Time Associated Diagnosis Comme nts HCL BETA STREP Routine 10/27/2006 11:07 AM Acute Pharyngitis R esults for this CONFIRM SECURITY TEST ENGINEER procedure are i n the results section. HCL STREP GROUP A Routine 10/27/2006 11:07 AM Acute Pharyngiti s Results for this AG (RAPID) SECURITY TEST ENGINEER procedure are i n the results section. documented in this encounter Results BETA STREP CONFIRM (10/27/2006 11:07 AM SECURITY TEST ENGINEER) Component Value Ref Test Analysis Performed At [facility] gist Range Method Time Signature Specimen Throat [facility] Culture Micro No Beta [facility] Report status FINAL [id number] [facility] Specimen Anatomical Collection Method Collection Time Receive d Time (Source) Location / / Volume Laterality 10/27/2006 11:07 10/27/2006 AM SECURITY TEST ENGINEER 11:12 AM SECURITY TEST ENGINEER Nader Garibay MD LABORATORY Performing Organization Address City/State/ZIP Code Phon e Number [facility] [address] [place] [address] [facility] STREP GROUP A AG (RAPID) (10/27/2006 11:07 AM SECURITY TEST ENGINEER) Component Value Ref Test Analysis Performed At [facility] gist Range Method Time Signature Specimen Throat [place] Description [facility] Rapid Strep A NEGATIVE: No Group A strepto coccal antigen detected by immunoassay, await [place] Screen culture report. [facility] Report status FINAL [id number] [facility] Specimen Anatomical Collection Method Collection Time Receive d Time (Source) Location / / Volume Laterality 10/27/2006 11:07 10/27/2006 AM SECURITY TEST ENGINEER 11:12 AM SECURITY TEST ENGINEER Nader Garibay MD LABORATORY Performing Organization Address City/State/ZIP Code Phon e Number [facility] [address] [place] [address] [facility] documented in this encounter Visit Diagnoses Diagnosis Acute pharyngitis - Primary documented in this encounter Care Teams Shoe Laster Relationship Specialty Start Date End Date Nader Garibay MD PCP - General 01/01/02 10/16/17 documented as of this encounter
--- OUTSIDE RECORDS SUMMARY | 2022-10-07 10:51 | XMS_ITS | Encounter Summary ---
:1935 Author Organization [place] Address [address] [place] [address] Care Team Providers Name Role Phone Nader Garibay MD Primary Care Provider Reason for Visit Reason Comments Flu Shot Encounter Details Date Type Department Care Team Description 09/15/2006 Allied Health/Nurse [facility] Clinic Flu Shot Visit [address] [phone] Social History Tobacco Use Types Packs/Day Years Used Date Smoking Tobacco: Never Alcohol Use Standard Drinks/Week Comments Yes 0 (1 standard drink = 0.6 oz pure alcoho l) SELDOM Sex Assigned at Date Recorded Not on file documented as of this encounter Progress Notes Maribel Patel - 09/15/2006 11:06 AM CST Injectable Influenza Immunization Documentation Form NAME: Vielka Snyder : 1935 DATE: 09/15/2006 FLU VACCINE PROCEDURE DOCUMENTATION Injectable Influenza Immunization Documentation Form 1. Has the patient received the information for the influenza vaccine? YES 2. Does the patient have any of the following contraindications? Allergy to eggs? No Allergic reaction to previous influenza vaccines? No Paralyzed by Guillain-Bayamon syndrome? No Currently have moderate or severe illness? No Allergy to contact lens solution/thimerosol? No 3. The vaccine has been administered and the patient was instructed to wait 15 minutes before leaving the building in the event of an allergic reaction: YES Vaccination given by Debbi Vides LPN RETE BOOM PUMP OPERATOR documented in this encounter Plan of Treatment Not on filedocumented as of this encounter Visit Diagnoses Diagnosis Need for prophylactic vaccination and in oculation against influenza - Primary documented in this encounter Care Teams Pipe Welder Relationship Specialty Start Date End Date Nader Garibay MD PCP - General 01/01/02 10/16/17 documented as of this encounter
--- OUTSIDE RECORDS SUMMARY | 2022-10-07 10:51 | XMS_ITS | Encounter Summary ---
:1935 Author Organization [place] Address [address] [place] [address]. [place] [address] Care Team Providers Name Role Phone Nader Garibay MD Primary Care Provider Reason for Visit Reason Comments Vaginal Problem c/o vaginal discharge few we eks ago, painful intercourse Encounter Details Date Type Department Care Team Description 12/09/2006 Office Visit [facility] Nader Garibay DYSURIA; Clinic Tiny Crabtree MD VAGINITIS NOS; [place] [address] CANDIDIASIS SITE NOS [address] [phone] Social History Tobacco Use Types Packs/Day Years Used Date Smoking Tobacco: Never Alcohol Use Standard Drinks/Week Comments Yes 0 (1 standard drink = 0.6 oz pure alcoho l) SELDOM Sex Assigned at Date Recorded Not on file documented as of this encounter Last Filed Vital Signs Vital Sign Reading Time Taken Comments Blood Pressure 128/76 12/09/2006 11:15 AM DIRECTOR OF MEDICAL EDUCATION Pulse 76 12/09/2006 11:15 AM DIRECTOR OF MEDICAL EDUCATION Temperature - - Respiratory Rate - - Oxygen Saturation - - Inhaled Oxygen Concentration - - Weight 111.6 kg (246 lb) 12/09/2006 11:15 AM DIRECTOR OF MEDICAL EDUCATION Height - - Body Mass Index 40.31 01/08/2006 1:45 PM DIRECTOR OF MEDICAL EDUCATION documented in this encounter Progress Notes Nader Garibay - 12/09/2006 4:29 PM CST HPI: Vielka Snyder is a 71 year old female who presents for evaluation of vaginal irritation. Starting about 2 weeks ago, after an episode of vigorous sex with her fiance, patient began havingvaginal discharge, and since has had painful intercourse. She cannot tell me precisely what the discharge looks like. Mild pain with urinating. Patient tried topicl powder for treatment - after applying power to her vaginal area, she then allpied to area under breast, and now has a pruritic rash underher right breast. Patient Active Problem List Diagnoses Code ??? 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 EDEMA 782.3 ??? DEPRESSIVE DISORDER NEC 311 ??? ESOPHAGEAL REFLUX 530.81 ??? MIXED HYPERLIPIDEMIA 272.2 ??? OTHER UNSPEC SLEEP APNEA 780.57 ??? OBESITY NOS 278.00 ??? RESTLESS LEG SYNDROME 333.99 Current outpatient prescriptions Medication Sig ??? DIFLUCAN 150 MG OR TABS ONE TABLET FOR ONE DOSE ??? NYSTATIN (TOPICAL) 215053 U/GM EX CREA APPLY TWICE DAILY ??? HYDROCHLOROTHIAZIDE 25 MG OR TABS 1 [...] Paternal Grandmother OVARIAN ??? Heart Paternal Grandfather PA ??? Depression Son History Social History ??? [...] pain, heartburn, or change in bowel habits female: as above EXAM: BP 128/76 Pulse 76 Wt 246 lbs (111.6kg) LMP Postmenopausal GENERAL APPEARANCE: healthy, alert and no distress RESP: lungs clear to auscultation - no rales, rhonchi or wheezes CV: regular rates and rhythm, normal S1 S2, no S3 or S4 and no murmur, click or rub - ABDOMEN: soft, nontender, no HSM or masses and bowel sounds normal GU_female: vaginal mucosa normal, scant whitish discharge in cervical os. SKIN: Topical candidal infection under right breast. Assessment: 788.1 DYSURIA Note: Plan: UA MICRO IF POSITIVE 616.10 VAGINITIS NOS Note: Emperic single dose diflucan Plan: A WET PREP, DIFLUCAN 150 MG OR TABS 112.9 CANDIDIASIS SITE NOS Note: Topical nystatin Plan: NYSTATIN (TOPICAL) 207047 U/GM EX CREA Nader Garibay MD CTOR OF MEDICAL EDUCATION documented in this encounter Nursing Notes 12/09/2006 11:15 AM CST >> SANA DHALIWAL 12/09/2006 11:16 am Patient presents with: Vaginal Problem - c/o vaginal discharge few weeks ago, painful intercourse Medications reviewed: No discrepancies identified. Initial BP 128/76 Pulse 76 Wt 246 lbs (111.6kg) LMP Postmenopausal Estimated Body mass index is 40.30 kg/(m^2) as calculated from: Height of 5' 5.5 (1.664 m) as of 01/08/06 Weight of 246 lbs (111.585 kg) as of this encounter BP completed using cuff size: large Signed by SANA DHALIWAL MA documented in this encounter Plan of Treatment Not on filedocumented as of this encounter Procedures Procedure Name Priority Date/Time Associated Diagnosis Comme nts HCL UA MICRO IF Routine 12/09/2006 4:19 PM Dysuria Result s for this POSITIVE DIRECTOR OF MEDICAL EDUCATION procedure are i n the results section. HCL WET PREP Routine 12/09/2006 11:51 AM Vaginitis Nos Results for this DIRECTOR OF MEDICAL EDUCATION procedure are i n the results section. documented in this encounter Results UA MICRO IF POSITIVE (12/09/2006 4:19 PM DIRECTOR OF MEDICAL EDUCATION) [facility] Method Time Signature Color Urine Yellow [facility] Appearance Urine Clear [facility] Glucose Urine Negative NEG mg/dL [facility] Bilirubin Urine Negative NEG [facility] Ketones Urine Negative NEG mg/dL [facility] Specific [place] >1.030 1.003 - [place] Urine 1.035 [facility] Blood Urine Negative NEG [facility] pH Urine 5.0 5.0 - 7.0 [place] pH [facility] Protein Albumin Negative NEG mg/dL [place] Urine [facility] Urobilinogen 0.2 0.2 - 1.0 [place] Urine EU/dL [facility] Nitrite Urine Negative NEG [facility] Leukocyte Negative NEG [place] Esterase Urine [facility] Source [facility] Specimen Anatomical Collection Method Collection Time Receive d Time (Source) Location / / Volume Laterality 12/09/2006 4:19 PM 7 4:24 DIRECTOR OF MEDICAL EDUCATION PM DIRECTOR OF MEDICAL EDUCATION Nader Garibay MD LABORATORY Performing Organization Address City/State/ZIP Code Phon e Number [facility] [address] [place] [address] [facility] A WET PREP (12/09/2006 11:51 AM DIRECTOR OF MEDICAL EDUCATION) [facility] Method Time Signature Specimen Vagina [place] Description [facility] Wet Prep No Trichomonas seen [place] No clue cells seen [facility] No yeast seen CLINIC LAB Report status FINAL [id number] [facility] Specimen Anatomical Collection Method Collection Time Receive d Time (Source) Location / / Volume Laterality 12/09/2006 11:51 12/09/2006 AM DIRECTOR OF MEDICAL EDUCATION 11:56 AM DIRECTOR OF MEDICAL EDUCATION Nader Garibay MD LABORATORY Performing Organization Address City/State/ZIP Code Phon e Number [facility] [address] [place] [address] [facility] documented in this encounter Visit Diagnoses Diagnosis Dysuria Vaginitis and vulvovaginitis, unspecifie d Candidiasis of unspecified site documented in this encounter Care Teams Caterers Helper Relationship Specialty Start Date End Date Nader Garibay MD PCP - General 01/01/02 10/16/17 documented as of this encounter
--- OUTSIDE RECORDS SUMMARY | 2022-10-07 10:51 | XMS_ITS | Encounter Summary ---
:1935 Author Organization [place] Address [address] [place] [address] Care Team Providers Name Role Phone Nader Garibay MD Primary Care Provider Encounter Details Date Type Department Care Team Description 07/09/2006 Orders Only [facility] FLU SHING (Primary Dx) [place] [facility] [address] [phone] Social History Tobacco Use Types Packs/Day Years Used Date Smoking Tobacco: Never Alcohol Use Standard Drinks/Week Comments Yes 0 (1 standard drink = 0.6 oz pure alcoho l) SELDOM Sex Assigned at Date Recorded Not on file documented as of this encounter Progress Notes Prashant Faust - 07/09/2006 11:00 AM CDT Addended by: PRASHANT FAUST on: 07/09/2006 11:00:00 AM Modules accepted: Orders documented in this encounter Plan of Treatment Not on filedocumented as of this encounter Procedures Procedure Name Priority Date/Time Associated Comments Diagnosis HCL CATECHOLAMINES Routine 07/09/2006 11:06 [place] Resul ts for this FRACTIONATED - URINE AM CDT procedu re are in the results section. HCL CORTISOL, FREE 24 Routine 07/09/2006 11:06 [place] Re sults for this HOUR URINE AM CDT procedure are i n the results section. documented in this encounter Results CORTISOL, FREE 24 HOUR URINE (07/09/2006 11:06 AM CDT) P athologist Signature Cortisol Free 24 [facility] U[facility] Volume 2800 [facility] Cortisol Free 24.8 [place] Urine [facility] Comment: Reference range: < ?? 45.0 Unit: ug/d Creatinine Urine/Volume 48 [facility] EW [facility] Comment: Unit: mg/dL Creatinine Urine/24hr 1344 [facility] Comment: Reference range: 500 to 1400 Unit: mg/d (Note) The above 5 tests were performed at: [employer], [address], [facility] ??[id number] ?www.[email or web address]ave Specimen Anatomical Collection Method Collection Time Receive d Time (Source) Location / / Volume Laterality 07/09/2006 11:06 07/09/2006 AM CDT 11:11 AM CDT Nader Garibay MD LABORATORY Performing Organization Address City/State/ZIP Code Phon e Number [facility] [address] [place] [address] [facility] CATECHOLAMINE - URINE (07/09/2006 11:06 AM CDT) [facility] gist Method Time Signature Catecholamines 24 [place] Duration Urine [facility] Catecholamines 2800 [place] Volume Urine [facility] Urine Dopamine 174 [facility] Comment: Reference range: 60 to 440 Unit: ug/d Urine Norepinephrine 53 [facility] Comment: Reference range: 0 to 100 Unit: ug/d Urine Epinephrine < 3 [facility] Reference range: 0 to 25 LAB Unit: ug/d Catecholamines Fract Urine NORMAL JANNET [facility] Free Interp LAB Catecholamines Fract Creat 48 JANNET [facility] Random Urine Free LAB Comment: Unit: mg/dL Catecholamines Fract Creat Timed Urine Free 1344 [facility] Comment: Reference range: 500 to 1400 Unit: mg/d (Note) The above 8 tests were performed at: [employer], [address], [facility] [place] ??[address] ?www.[employer] Specimen Anatomical Collection Method Collection Time Receive d Time (Source) Location / / Volume Laterality 07/09/2006 11:06 07/09/2006 AM CDT 11:11 AM CDT Nader Garibay MD LABORATORY Performing Organization Address City/State/ZIP Code Phon e Number [facility] [address] [place] [address] [facility] documented in this encounter Visit Diagnoses Diagnosis [place] - Primary documented in this encounter Care Teams Gypsum Roofer Relationship Specialty Start Date End Date Nader Garibay MD PCP - General 01/01/02 10/16/17 documented as of this encounter
--- OUTSIDE RECORDS SUMMARY | 2022-10-07 10:51 | XMS_ITS | Encounter Summary ---
:1935 Author Organization [place] Address [address] [place] [address] Care Team Providers Name Role Phone Nader Garibay MD Primary Care Provider Encounter Details Date Type Department Care Team Description 04/15/2007 Orders Only [facility] Nader Garibay DIAGNOSIS NOT YET Clinic [place] MD Bro DEFINED (Primary Dx) [place] [address] [phone] Social History Tobacco Use Types Packs/Day Years Used Date Smoking Tobacco: Never Alcohol Use Standard Drinks/Week Comments Yes 0 (1 standard drink = 0.6 oz pure alcoho l) SELDOM Sex Assigned at Date Recorded Not on file documented as of this encounter Plan of Treatment Not on filedocumented as of this encounter Procedures Procedure Name Priority Date/Time Associated Diagnosis Comme nts HC GATED BLOOD POOL SINGLE AT Routine 04/09/2007 DIAGNOSIS N OT YET DEFINED REST/STRESS WALL MOTION & EJ FRACTION documented in this encounter Results GATED HEART, PLANAR SINGLE (04/09/2007) Anatomical Region Laterality Modality Other Specimen (Source) Anatomical Location Collection Method / Collectio n Time Received Time / Laterality Volume 04/09/2007 Narrative This result has an attachment that is no t available. Nader Garibay MD SPECIAL IMAGING STUDIES documented in this encounter Visit Diagnoses Diagnosis DIAGNOSIS NOT YET DEFINED - Primary documented in this encounter Care Teams Food Handler Relationship Specialty Start Date End Date Nader Garibay MD PCP - General 01/01/02 10/16/17 documented as of this encounter
--- OUTSIDE RECORDS SUMMARY | 2022-10-07 10:51 | XMS_ITS | Encounter Summary ---
:1935 Author Organization [place] Address [address] [place] [address]. [place] [address] Care Team Providers Name Role Phone Nader Garibay MD Primary Care Provider Reason for Visit Reason Onset Date Comments Refill Request 10/01/2006 Encounter Details Date Type Department Care Team Description 10/01/[address] [facility] Nader Garibay MD Refill Request [address] [address] [place] [phone] Social History Tobacco Use Types Packs/Day Years Used Date Smoking Tobacco: Never Alcohol Use Standard Drinks/Week Comments Yes 0 (1 standard drink = 0.6 oz pure alcoho l) SELDOM Sex Assigned at Date Recorded Not on file documented as of this encounter Miscellaneous Notes Telephone Encounter - Renee Braraza - 10/01/2006 12:16 PM CST Mailed. EU MANAGER Telephone Encounter - Beryl Griggs - 10/01/2006 9:45 AM CST Vielka calling for written rx for mail order. Please mail to her when done. 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
--- OUTSIDE RECORDS SUMMARY | 2022-10-07 10:51 | XMS_ITS | Encounter Summary ---
:1935 Author Organization [place] Address [address] [place] [address] Care Team Providers Name Role Phone Nader Garibay MD Primary Care Provider Reason for Visit Reason Onset Date Comments Erroneous encounter-disregard 05/21/2007 Encounter Details Date Type Department Care Team Description 03/31/2007 Telephone [facility]-disregard [address] [phone] Social History Tobacco Use Types Packs/Day Years Used Date Smoking Tobacco: Never Alcohol Use Standard Drinks/Week Comments Yes 0 (1 standard drink = 0.6 oz pure alcoho l) SELDOM Sex Assigned at Date Recorded Not on file documented as of this encounter Plan of Treatment Not on filedocumented as of this encounter Visit Diagnoses Not on filedocumented in this encounter Care Teams Supervisor Mixing Relationship Specialty Start Date End Date Nader Garibay MD PCP - General 01/01/02 10/16/17 documented as of this encounter
--- OUTSIDE RECORDS SUMMARY | 2022-10-07 10:51 | XMS_ITS | Encounter Summary ---
:1935 Author Organization [facility] Address [address] [place] [address] Care Team Providers Name Role Phone Nader Garibay MD Primary Care Provider Reason for Visit Reason Onset Date Comments Refill Request 01/20/2007 Encounter Details Date Type Department Care Team Description 01/20/2007 Refill [facility] Nader Garibay MD Refill Request [address] [address] [place] [address] [phone] Social History Tobacco Use Types Packs/Day Years Used Date Smoking Tobacco: Never Alcohol Use Standard Drinks/Week Comments Yes 0 (1 standard drink = 0.6 oz pure alcoho l) SELDOM Sex Assigned at Date Recorded Not on file documented as of this encounter Miscellaneous Notes Telephone Encounter - Renee Barraza - 01/22/2007 9:42 AM CST Filled by nurse per standing order. CONCENTRATOR documented in this encounter Plan of Treatment Not on filedocumented as of this encounter Visit Diagnoses Diagnosis Essential hypertension, benign Edema documented in this encounter Care Teams Medical Billing Manager Relationship Specialty Start Date End Date Nader Garibay MD PCP - General 01/01/02 10/16/17 documented as of this encounter
--- OUTSIDE RECORDS SUMMARY | 2022-10-07 10:51 | XMS_ITS | Encounter Summary ---
:1935 Author Organization [facility] Address [address] [place] [address] Care Team Providers Name Role Phone Nader Garibay MD Primary Care Provider Reason for Visit Reason Onset Date Comments Medication Request 01/22/2007 ?conjunctivitis Encounter Details Date Type Department Care Team Description 01/22/2007 Telephone [facility] Nader Garibay Ks [facility] (?[facility]) [address] [address] [phone] Social History Tobacco Use Types Packs/Day Years Used Date Smoking Tobacco: Never Alcohol Use Standard Drinks/Week Comments Yes 0 (1 standard drink = 0.6 oz pure alcoho l) SELDOM Sex Assigned at Date Recorded Not on file documented as of this encounter Miscellaneous Notes Telephone Encounter - Bhumi Tomas - 01/23/2007 9:24 AM CST Pt called in and I read this message to her. She agrees and overnight has started using warm compresses to the eye and there is no drainage and very minimal redness now. She describes a pimple-like lesion in corner of eye. She will continue the warm compresses and observe. If worsens will be seen. L DESIGNER Telephone Encounter - Nader Garibay - 01/22/2007 5:09 PM CST I don't feel it is appropriate to prescribe Abx without seeing her, but in all likelyhood this is a viral conjunctivits anyway. If she develops increased pain, or purulent drainage, needs to be seen MAKAYLA. I think she can still work, as long as she adheres to usual contact precautions - wash hands frequently, do not rub eye, etc. L DESIGNER Telephone Encounter - Court Armenta - 01/22/2007 4:35 PM CST Pt calling stating her left eye is sore, the lower lid is swollen-painful to touch.pt is requesting abx drops via phone. 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 She just started this wk of work and has no replacement. She is also wanting to know if she should continue working if this is pink eye d/t contagious. She states she is one on one with pt and there is a lot of direct contact with them. I advised her that abx are not rx'd via phone but she still requested note be sent as she is unable to take off of work d/t no alternate caregiver. Court Armenta, RN L DESIGNER documented in this encounter Plan of Treatment Not on filedocumented as of this encounter Visit Diagnoses Not on filedocumented in this encounter Care Teams Knitting Inspector Relationship Specialty Start Date End Date Nader Garibay MD PCP - General 01/01/02 10/16/17 documented as of this encounter
--- OUTSIDE RECORDS SUMMARY | 2022-10-07 10:51 | XMS_ITS | Encounter Summary ---
:1935 Author Organization [facility] Address [address] [place] [address] Care Team Providers Name Role Phone Nader Garibay MD Primary Care Provider Reason for Visit Reason Onset Date Comments Appointment 07/03/2006 for stomach tenderne ss Encounter Details Date Type Department Care Team Description 07/03/2006 Telephone [facility] Nader Garibay Ap pointment [facility] [address] [address] [phone] Social History Tobacco Use Types Packs/Day Years Used Date Smoking Tobacco: Never Alcohol Use Standard Drinks/Week Comments Yes 0 (1 standard drink = 0.6 oz pure alcoho l) SELDOM Sex Assigned at Date Recorded Not on file documented as of this encounter Miscellaneous Notes Telephone Encounter - Scarlett Dhaliwal - 07/03/2006 3:31 PM CDT Appt. Scheduled, patient advised SCARLETT DHALIWAL MA Telephone Encounter - Nader Garibay - 07/03/2006 3:08 PM CDT Put her in this Friday at 10:00 AM Telephone Encounter - Court Armenta - 07/03/2006 2:56 PM CDT Pt calling stating she has a pain in middle of stomach- she states it only hurts when area is touched. It is only in middle of stomach-2 inches above belly button. She states almost 1 yr ago she had bowel removed due to inflamation and she states it feels similar to that-less in intensity but otherwise similar. She states she is having bloating, some bowel irregularity some loose stools occasional and wt gain of 25 pounds over 2.5 months. No diet changes noted. No fever. Pt wants to be seen as soon as possible she was told first avail was in July. When can you see her? She wants to be seen by pcp, not UC. Court Armenta RN documented in this encounter Plan of Treatment Not on filedocumented as of this encounter Visit Diagnoses Not on filedocumented in this encounter Care Teams Helper/Driver Relationship Specialty Start Date End Date Nader Garibay MD PCP - General 01/01/02 10/16/17 documented as of this encounter
--- OUTSIDE RECORDS SUMMARY | 2022-10-07 10:51 | XMS_ITS | Encounter Summary ---
:1935 Author Organization [facility] Address [address] [place] [address] Care Team Providers Name Role Phone Nader Garibay MD Primary Care Provider Reason for Visit Reason Onset Date Comments Refill Request 10/01/2006 Encounter Details Date Type Department Care Team Description 10/01/2006 Refill [facility] Nader Garibay MD Refill Request [address] [address] [place] [address] [phone] Social History Tobacco Use Types Packs/Day Years Used Date Smoking Tobacco: Never Alcohol Use Standard Drinks/Week Comments Yes 0 (1 standard drink = 0.6 oz pure alcoho l) SELDOM Sex Assigned at Date Recorded Not on file documented as of this encounter Miscellaneous Notes Telephone Encounter - Renee Barraza - 10/02/2006 10:11 AM CST Filled by nurse per standing order. OX FITTER documented in this encounter Plan of Treatment Not on filedocumented as of this encounter Visit Diagnoses Diagnosis Essential hypertension, benign Edema documented in this encounter Care Teams Billet Checker Relationship Specialty Start Date End Date Nader Garibay MD PCP - General 01/01/02 10/16/17 documented as of this encounter
--- OUTSIDE RECORDS SUMMARY | 2022-10-07 10:51 | XMS_ITS | Encounter Summary ---
:1935 Author Organization [facility] Address [address] [place] [address] Care Team Providers Name Role Phone Nader Garibay MD Primary Care Provider Reason for Visit Reason Comments Radiology Visit Encounter Details Date Type Department Care Team Description 03/31/2007 Orders Only [facility] SCR EENING MAMM-MAILG NEOPL [place] NEC (Primary Dx) [address] [phone] Social History Tobacco Use Types Packs/Day Years Used Date Smoking Tobacco: Never Alcohol Use Standard Drinks/Week Comments Yes 0 (1 standard drink = 0.6 oz pure alcoho l) SELDOM Sex Assigned at Date Recorded Not on file documented as of this encounter Plan of Treatment Not on filedocumented as of this encounter Procedures Procedure Name Priority Date/Time Associated Diagnosis Comme [facility] MAMMOGRAM, Routine 03/31/2007 Screening Mamm-Mailg Result s for this SCREENING BILATERAL Neopl Nec procedur e are in the results section . documented in this encounter Results MAMMOGRAM, SCREENING (03/31/2007) P athologist Signature MAMMOGRAM Anatomical Region Laterality Modality Mammography Impressions 03/31/2007 RADIOLOGIST'S INTERPRETATION: Breast parenchyma: ??fatty/mild densitie s IMAGING IMPRESSION: (CATEGORY-1) NEGATIVE This study was evaluated with the assist ance of Computer-Aided Detection. Radiologist: David Brannon M.D. ?APR 02 2007 Electronically filed by Zoraida Trent ??04/03/2007 ??10:40 AM Nader Garibay MD SPECIAL IMAGING STUDIES documented in this encounter Visit Diagnoses Diagnosis Other screening mammogram - Primary documented in this encounter Care Teams Water Purifier Relationship Specialty Start Date End Date Nader Garibay MD PCP - General 01/01/02 10/16/17 documented as of this encounter
--- OUTSIDE RECORDS SUMMARY | 2022-10-07 10:51 | XMS_ITS | Encounter Summary ---
:1935 Author Organization [facility] Address [address] [place] [address] Care Team Providers Name Role Phone Nader Garibay MD Primary Care Provider Reason for Visit Reason Comments RECHECK follow up after tests Encounter Details Date Type Department Care Team Description 08/15/2006 Office Visit [facility] Nader Garibay OBESITY N OS (Primary Dx); Clinic [place] MD Bro LOC PRIM OSTEOART-L/LEG [place] [address] [address] [phone] Social History Tobacco Use Types Packs/Day Years Used Date Smoking Tobacco: Never Alcohol Use Standard Drinks/Week Comments Yes 0 (1 standard drink = 0.6 oz pure alcoho l) SELDOM Sex Assigned at Date Recorded Not on file documented as of this encounter Last Filed Vital Signs Vital Sign Reading Time Taken Comments Blood Pressure 144/70 08/15/2006 10:15 AM CDT Pulse 68 08/15/2006 10:15 AM CDT Temperature - - Respiratory Rate - - Oxygen Saturation - - Inhaled Oxygen Concentration - - Weight 108.4 kg (239 lb) 08/15/2006 10:15 AM CDT Height - - Body Mass Index 39.17 01/08/2006 1:45 PM BARK TANNER documented in this encounter Progress Notes Nader Garibay - 08/15/2006 4:38 PM CDT HPI: Vielka nSyder is a 70 year old female who presents for follow-up. Still very frustrated that she is gaining weight, though she is not getting much in terms of appreciable exercise. Reviewed results of her 24-hour urine studies, catecholamines/cortisol both normal. She needs refill of her Voltaren. Patient Active Problem List Diagnoses Code ??? 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 EDEMA 782.3 ??? DEPRESSIVE DISORDER NEC 311 ??? ESOPHAGEAL REFLUX 530.81 ??? MIXED HYPERLIPIDEMIA 272.2 ??? OTHER UNSPEC SLEEP APNEA 780.57 ??? OBESITY NOS 278.00 ??? RESTLESS LEG SYNDROME 333.99 Current outpatient prescriptions Medication Sig ??? VOLTAREN 75 MG OR TBEC 1 TABLET TWICE DAILY ??? HYDROCHLOROTHIAZIDE 25 MG OR TABS 1 TAB PO QD (Once per day) ??? MIRAPEX 0.5 MG OR TABS 2 tabs Qhs ??? LIPITOR 20 MG OR TABS 1 [...] Paternal Grandmother OVARIAN ??? Heart Paternal Grandfather [place] ??? Depression Son History Social History ??? [...] for frequency, dysuria, or hematuria EXAM: BP 144/70 Pulse 68 Wt 239 lbs (108.4kg) LMP Postmenopausal GENERAL APPEARANCE: healthy, alert and no distress RESP: lungs clear to auscultation - no rales, rhonchi or wheezes CV: regular rates and rhythm, normal S1 S2, no S3 or S4 and no murmur, click or rub - ABDOMEN: soft, nontender, no HSM or masses and bowel sounds normal Assessment: 278.00 OBESITY NOS (primary encounter diagnosis) Note: Discussed need for regular exercise (3x per wk, 20 min per) w/ patient. Needs to make sure that she is getting sustained aerobic exercise. WIll check TSH. Plan: TSH W/FREE T4 REFLEX 715.16 LOC PRIM OSTEOART-L/LEG Note: Plan: VOLTAREN 75 MG OR TBEC Nader Garibay MD documented in this encounter Nursing Notes 08/15/2006 10:15 AM CDT >> DEBBIE ADLER 08/15/2006 10:21 am Vielka Snyder presents for follow up on test results. Initial BP 144/70 Pulse 68 Wt 239 lbs (108.4kg) LMP Postmenopausal Estimated Body mass index is 39.15 kg/(m^2) as calculated from: Height of 5' 5.5 (1.664 m) as of 01/08/06 Weight of 239 lbs (108.410 kg) as of this encounter. BP completed using cuff size: ortega Adler LPN documented in this encounter Plan of Treatment Not on filedocumented as of this encounter Procedures Procedure Name Priority Date/Time Associated Diagnosis Comme nts HCL TSH W/FREE T4 Routine 08/15/2006 10:41 AM Obesity Nos Res ults for this REFLEX CDT procedure are i n the results section. documented in this encounter Results TSH W/FREE T4 REFLEX (08/15/2006 10:41 AM CDT) P athologist Signature TSH 2.46 0.4 - 5.0 [facility] mU/L CLINIC LAB Specimen Anatomical Collection Method Collection Time Receive d Time (Source) Location / / Volume Laterality 08/15/2006 10:41 08/15/2006 AM CDT 10:46 AM CDT Narrative This result has an attachment that is no t available. Nader Garibay MD LABORATORY Performing Organization Address City/State/ZIP Code Phon e Number [facility] [address] [place] [address] [facility] documented in this encounter Visit Diagnoses Diagnosis Obesity, unspecified - Primary Primary localized osteoarthrosis, lower leg documented in this encounter Care Teams Ceramic Capacitor Processor Relationship Specialty Start Date End Date Nader Garibay MD PCP - General 01/01/02 10/16/17 documented as of this encounter
--- OUTSIDE RECORDS SUMMARY | 2022-10-07 10:52 | XMS_ITS | Encounter Summary ---
:1935 Author Organization [facility] Address [address] [place] [address] Care Team Providers Name Role Phone Donte Skinner MD Primary Care Provider Encounter Details Date Type Department Care Team Description 08/06/[address] [facility], DIAGNOSIS NOT YET Clinic Rea Isaac Schwartz DEFINED ( Primary Dx) [place] [address] [address] Social History Tobacco Use Types [...] Diagnosis Comme nts CL AFF SURGICAL Routine 08/06/2005 DIAGNOSIS NOT YET Results for this PATHOLOGY DEFINED procedure are i n the results section . documented in this encounter Results SURGICAL PATHOLOGY (08/06/2005) Specimen (Source) Anatomical Location Collection Method / Collectio n Time Received Time / Laterality Volume 08/06/2005 Impressions Dani Jackson - 08/06/2005 CASE: [id number] Patient Name: ANNIA CARD MR#: [id number] Specimen #: [id number] Collected: 08/06/2005 Received: 08/07/2005 Reported: 08/08/2005 11:28 Ordering Phy(s): KASSY TORRES Additional Phy(s): DONTE SKINNER SPECIMEN(S): Sigmoid colon FINAL DIAGNOSIS: Large intestine at sigmoid colon, resect ion: Perforated acute diverticulitis. Electronically signed out by: Tobi Long M.D. CLINICAL HISTORY: Perforated viscus. GROSS: The specimen, submitted as perforated s igmoid diverticulitis, consists of an unopened segment of large intestin e measuring 13 cm in length after fixation. ??The fat and serosal valdez rface of the bowel show deposition of purulent material over an area measuring approximately 6 x 2 cm in surface dimension. ??Opening the bowel shows it to contain some soft dark stool. ??The bowel mucosa is i ntact without tumor or surface mucosal abnormalities. ??The specimen re section margins are grossly unremarkable. ??Serial sectioning of the bowel shows multiple diverticula several of which show adjacent hemorrhag e and purulent material. State Tested Nursing Assistant sections are taken. ?? GJ C/ln MICROSCOPIC: Sections from large intestine show exten sive acute diverticulitis with perforation and serosal inflammatory cem ction. ??Additional pathologic abnormalities are not present. GJC/ln 08/08/05 TESTING LAB LOCATION: [address] ??[id number] COLLECTION SITE: Client: [facility] Location: 33 (S) Electronically filed by Dani Jackson ??08/10/2005 ??8:31 AM Isaac Mason LABORATORY documented in this encounter Visit Diagnoses Diagnosis DIAGNOSIS NOT YET DEFINED - Primary documented in this encounter Care Teams Oil Dispatcher Relationship Specialty Start Date End Date Donte Skinner MD PCP - General 01/01/02 10/16/17 documented as of this encounter
--- OUTSIDE RECORDS SUMMARY | 2022-10-07 10:52 | XMS_ITS | Encounter Summary ---
:1935 Author Organization [facility] Address [address] [place] [address] Care Team Providers Name Role Phone Nader Garibay MD Primary Care Provider Reason for Visit Reason Onset Date Comments Dizziness 03/13/2006 vomiting Encounter Details Date Type Department Care Team Description 03/13/2006 Telephone [facility] Hector Fernandez, Dizziness (vomiting) Pearl Edwar HERNANDEZ [address] [place] [address] [address] [address] [place], [place] [phone] (Wo rk) Social History Tobacco Use Types Packs/Day Years Used Date Smoking Tobacco: Never Alcohol Use Standard Drinks/Week Comments Yes 0 (1 standard drink = 0.6 oz pure alcoho l) SELDOM Sex Assigned at Date Recorded Not on file documented as of this encounter Miscellaneous Notes Telephone Encounter - Scarlett Dhaliwal - 03/13/2006 2:31 PM CDT Pt unable to pay for abx at this time, advised to quit using the Augmentin for now, she will relax and try and get something in her stomach, if she gets any worse will try and get a ride or call ambulance to [facility]. SCARLETT DHALIWAL MA Telephone Encounter - Hector Fernandez - 03/13/2006 2:12 PM CDT Likely from antibx- Will change to cefzil Telephone Encounter - Bhumi Tomas - 03/13/2006 12:14 PM CDT Pt was given Augmentin yesterday in office. She has been feeling dizzy for past 8 hours and just nowvomited. Hasn't taken her regular med for couple days. Pt was only able to get toast and chicken soup done but now has vomited that. She had 2 Augmentin yesterday at 2PM, 1 pill at 2AM and another 2 pills at 8AM. Please advise if anthing for naueaa or if different antibiotic. [facility] will deliver if any new meds. documented in this encounter Plan of Treatment Not on filedocumented as of this encounter Visit Diagnoses Diagnosis Acute maxillary sinusitis - Primary documented in this encounter Care Teams Steffen House Supervisor Relationship Specialty Start Date End Date Nader Garibay MD PCP - General 01/01/02 10/16/17 documented as of this encounter
--- OUTSIDE RECORDS SUMMARY | 2022-10-07 10:52 | XMS_ITS | Encounter Summary ---
:1935 Author Organization [facility] Address [address] [place] [address]. [place] [address] Care Team Providers Name Role Phone Nader Garibay MD Primary Care Provider Reason for Visit Reason Comments Sinus Problem cough,fever,congestion Refill Request voltaren,lipitor,mirapex Encounter Details Date Type Department Care Team Description 03/12/2006 Office Visit [facility] Hector Fernandez ACUTE MAXILLARY SINUSITIS (Primary Dx); Clinic Tiny Corley MD MIXED HYPERLIPIDEMIA; [place] [address] [place] [address] DEPRESSIVE DISORDER NEC; [address] RESTLESS LEG SYNDROME; [place], [place] COUGH; [phone] LOC PRIM OSTEOART-L/LEG [phone] Social History Tobacco Use Types Packs/Day Years Used Date Smoking Tobacco: Never Alcohol Use Standard Drinks/Week Comments Yes 0 (1 standard drink = 0.6 oz pure alcoho l) SELDOM Sex Assigned at Date Recorded Not on file documented as of this encounter Last Filed Vital Signs Vital Sign Reading Time Taken Comments Blood Pressure 110/60 03/12/2006 11:15 AM CDT Pulse 80 03/12/2006 11:15 AM CDT Temperature 38.2 ??C (100.7 ??F) 03/12/2006 11:15 AM CDT Respiratory Rate - - Oxygen Saturation - - Inhaled Oxygen Concentration - - Weight 101.6 kg (224 lb) 03/12/2006 11:15 AM CDT Height - - Body Mass Index 36.71 01/08/2006 1:45 PM DIRECTOR PLANS documented in this encounter Progress Notes Hector Fernandez - 03/12/2006 11:46 AM CDT S: Vielka Snyder is a pleasant 70 year old female presents with a 5 day hx of sinus pain localized to the bilateral maxillary areas. in addition she reports post-nasal drainage, nasal congestion, facial pain, fever and headache. She denies nausea and halitosis. Her current active medical conditions include Patient Active Problem List Diagnoses Code ??? 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 EDEMA 782.3 ??? DEPRESSIVE DISORDER NEC 311 ??? ESOPHAGEAL REFLUX 530.81 ??? MIXED HYPERLIPIDEMIA 272.2 ??? OTHER UNSPEC SLEEP APNEA 780.57 ??? OBESITY NOS 278.00 ??? RESTLESS LEG SYNDROME 333.99 Past Medical History Diagnosis Date ??? MIXED HYPERLIPIDEMIA ??? ESOPHAGEAL REFLUX ??? DEPRESSIVE DISORDER NEC ??? EDEMA ??? LOC PRIM OSTEOART-L/LEG ??? OTHER UNSPEC SLEEP APNEA ??? RESTLESS LEG SYNDROME Current Outpatient Rx Name Route Sig Dispense Refill ??? MIRAPEX 0.5 MG OR TABS Oral 2 tabs Qhs 3 mo 1 ??? VOLTAREN 75 MG OR TBEC Oral 1 TABLET TWICE DAILY 3 mo 1 ??? LIPITOR 20 MG OR TABS Oral 1 tab PO QD (Once per day) 3 mo 1 ??? EFFEXOR XR# 75 MG OR CP24 Oral 3 capsules daily with food 3 mo 3 ??? AUGMENTIN XR 1000 MG Oral 2 tabs every 12 hours x 10 d 40 0 ??? ROBITUSSIN A-C 10-100 MG/5ML OR SYRP Oral 2 TSPS PO Q4-6 HR PRN COUGH 4 OZ 0 ??? NEXIUM 40 MG OR CPDR Oral 1 CAPSULE DAILY 90 3 ??? HYDROCHLOROTHIAZIDE 25 MG OR TABS Oral 1 TAB PO QD (Once per day) 100 3 Allergies as of 03/12/2006 - reviewed 03/12/2006 Allergen Reaction Noted ??? Ibuprofen 09/27/2002 ??? Tetracycline 09/28/2002 O: BP 110/60 Pulse 80 Temp (Src) 100.7 (Oral) Wt 224 lbs (101.6kg) LMP Postmenopausal HEENT: NC/AT PERRLA, EOMI, THROAT CLEAR WITHOUT LYMPH NODE ENLARGEMENT. NECK WITHOUT LAD. SUPPLE MILD Maxillary SINUS TENDERNESS TO PERCUSSION. CHEST: CTA BILATERALLY W/O WHEEZES OR RALES CV: RRR, NLS1S2, NO M/R/G ASSESSMENT: 461.0 ACUTE MAXILLARY SINUSITIS (primary encounter diagnosis) Note: recurrent Plan: AUGMENTIN XR 1000 MG 272.2 MIXED HYPERLIPIDEMIA Note: refill given x 6 mo Plan: LIPITOR 20 MG OR TABS 311 DEPRESSIVE DISORDER NEC Plan: EFFEXOR XR# 75 MG OR CP24 333.99 RESTLESS LEG SYNDROME Plan: MIRAPEX 0.5 MG OR TABS 786.2 COUGH Note: ok for some robitussin ac Plan: ROBITUSSIN A-C 10-100 MG/5ML OR SYRP 715.16 LOC PRIM OSTEOART-L/LEG Plan: VOLTAREN 75 MG OR TBEC Hector Fernandez M.D. Dept of Internal Medicine 03/12/2006 documented in this encounter Nursing Notes 03/12/2006 11:15 AM CDT >> BRADEN NAVARRO 03/12/2006 11:23 am Vielka Snyder presents for cough,congestions, fever and also needs refills. Initial BP 110/60 Pulse 80 Temp (Src) 100.7 (Oral) Wt 224 lbs (101.6kg) LMP Postmenopausal Estimated Body mass index is 36.70 kg/(m^2) as calculated from: Height of 5' 5.5 (1.664 m) as of 01/08/06 Weight of 224 lbs (101.606 kg) as of this encounter. 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
--- OUTSIDE RECORDS SUMMARY | 2022-10-07 10:52 | XMS_ITS | Encounter Summary ---
:1935 Author Organization [place] Address [address] [place] [address] Care Team Providers Name Role Phone Nader Garibay MD Primary Care Provider Reason for Referral Specialty Diagnoses / Procedures Referred By Contact Refer red To Contact Nader Garibay MD [address] [phone] Referral ID Status Reason Start Date Expiration Date Visits Requ ested Visits Authorized GN INTERN Encounter Details Date Type Department Care Team Description 09/19/2005 Orders Only [facility] Nader Garibay DIAGNOSIS NOT YET Clinic Tiny Crabtree MD DEFINED (Primary Dx) [place] [address] [phone] Social History Tobacco Use Types Packs/Day Years Used Date Smoking Tobacco: Never Alcohol Use Standard Drinks/Week Comments Yes 0 (1 standard drink = 0.6 oz pure alcoho l) SELDOM Sex Assigned at Date Recorded Not on file documented as of this encounter Plan of Treatment Not on filedocumented as of this encounter Procedures Procedure Name Priority Date/Time Associated Diagnosis Comme nts ZZ CONSULT VASCULAR SURGERY Routine 09/10/2005 DIAGNOSIS NOT YET DEFINED documented in this encounter Results CONSULT VASCULAR SURGERY (09/10/2005) Narrative This result has an attachment that is no t available. Nader Garibay MD REFERRAL documented in this encounter Visit Diagnoses Diagnosis DIAGNOSIS NOT YET DEFINED - Primary documented in this encounter Care Teams Treatment Plant Mechanic Relationship Specialty Start Date End Date Nader Garibay MD PCP - General 01/01/02 10/16/17 documented as of this encounter
--- OUTSIDE RECORDS SUMMARY | 2022-10-07 10:52 | XMS_ITS | Encounter Summary ---
:1935 Author Organization [place] Address [address] [place] [address] Care Team Providers Name Role Phone Nader Garibay MD Primary Care Provider Encounter Details Date Type Department Care Team Description 04/15/2006 Orders Only [facility] Nader Garibay DIAGNOSIS NOT YET Clinic Bethany MD Bro DEFINED (Primary Dx) [facility] [address] [phone] Social History Tobacco Use Types Packs/Day Years Used Date Smoking Tobacco: Never Alcohol Use Standard Drinks/Week Comments Yes 0 (1 standard drink = 0.6 oz pure alcoho l) SELDOM Sex Assigned at Date Recorded Not on file documented as of this encounter Plan of Treatment Not on filedocumented as of this encounter Procedures Procedure Name Priority Date/Time Associated Diagnosis Comme [facility] X-RAY KNEE COMPLETE >=4 Routine 04/04/2006 DIAGNOSIS NOT YET DEFINED VIEWS documented in this encounter Results X-RAY KNEE 4+ VIEW (04/04/2006) Anatomical Region Laterality Modality Other Specimen (Source) Anatomical Location Collection Method / Collectio n Time Received Time / Laterality Volume 04/04/2006 Narrative This result has an attachment that is no t available. Nader Garibay MD GENERAL IMAGING documented in this encounter Visit Diagnoses Diagnosis DIAGNOSIS NOT YET DEFINED - Primary documented in this encounter Care Teams Animal Eviscerator Relationship Specialty Start Date End Date Nader Gariaby MD PCP - General 01/01/02 10/16/17 documented as of this encounter
--- OUTSIDE RECORDS SUMMARY | 2022-10-07 10:52 | XMS_ITS | Encounter Summary ---
:1935 Author Organization [place] Address [address] [place] [address]. [place] [address] Care Team Providers Name Role Phone Nader Garibay MD Primary Care Provider Reason for Visit Reason Onset Date Comments Abdominal Pain 07/18/2005 Encounter Details Date Type Department Care Team Description 08/05/2005 Telephone [facility] Nader Garibay ler, [facility] [address] [phone] [place], [place] [phone] (Wo rk) Social History Tobacco Use Types Packs/Day Years Used Date Smoking Tobacco: Never Alcohol Use Standard Drinks/Week Comments Yes 0 (1 standard drink = 0.6 oz pure alcoho l) SELDOM Sex Assigned at Date Recorded Not on file documented as of this encounter Miscellaneous Notes Telephone Encounter - Nader Garibay - 08/05/2005 4:17 PM CDT Noted. Telephone Encounter - Maria Antonia Vanegas - 08/05/2005 3:49 PM CDT Pt states she has been having constant abdominal pain (#9) in entire abdomin x 2 1/2 wk. No diarrheaor vomiting. Pt had normal stool today. Pt has adult foster care client, who lives with her. Pt advised to have someone take her immediately to [facility] ER to be evaluated. Pt declines going to [facility], states will wait until she can get caregiver for her adult foster client, and then drive herself to [facility] ER. Pt is keeping down liquids, pt is just resting. Pt advised to call 911 if pain becomes more severe. Just FYI. Maria Antonia Vanegas RN documented in this encounter Plan of Treatment Not on filedocumented as of this encounter Visit Diagnoses Not on filedocumented in this encounter Care Teams Recycling Manager Relationship Specialty Start Date End Date Nader Garibay MD PCP - General 01/01/02 10/16/17 documented as of this encounter
--- OUTSIDE RECORDS SUMMARY | 2022-10-07 10:52 | XMS_ITS | Encounter Summary ---
:1935 Author Organization [place] Address [facility] [place] [address] Care Team Providers Name Role Phone Nader Garibay MD Primary Care Provider Encounter Details Date Type Department Care Team Description 08/14/2005 Discharge Summary Kassy Navarrete (Hat Trimmer) [address] [facility] [id number] [place], [place] [address] (Wo rk) Social History Tobacco Use Types Packs/Day Years Used Date Smoking Tobacco: Never Alcohol Use Standard Drinks/Week Comments Yes 0 (1 standard drink = 0.6 oz pure alcoho l) SELDOM Sex Assigned at Date Recorded Not on file documented as of this encounter Progress Notes Kassy Navarrete - 08/14/2005 11:59 PM CDT FINAL DIAGNOSIS: Sigmoid diverticulitis PROCEDURE: On 08/06/2005 she underwent exploratory laparotomy, segmental sigmoid resection with primary reanastomosis by Dr. Kassy Navarrete, assisted by Rohini Strong PA-C, and Eli Carlson PA-C COMPLICATIONS: None HOSPITAL COURSE: Primary care physician is Dr. Garibay. Jaz Snyder had an essentially uneventful hospital course. She gradually increased her strength. Her wound continued to look good. Len- Kuo continued to put out serosanguinous fluid. At the time of discharge she was putting out approximately 40 cc overnight. The patient was eating a regular diet since 08/11/2005 and passing gas and having 2 bowel movements on 08/12/2005. Her abdomen was soft. Chest clear. Good spirits. She was seen by physical therapy and occupational therapy and she was changed over from her IV medications to oral Augmentin 875 mg b.i.d. x7 days and Flagyl 500 mg t.i.d. x7 days. She was also getting Percocet 5/325 1 q4-6 hours p.r.n. for pain and doing well. During the hospital course she was seen by Surgery, followed by her primary care clinic. DISCHARGE MEDICATIONS: Included her usual home medications: 1. Effexor. 2. Nexium. 3. Lipitor. 4. Mirapex. 5. Hydrochlorothiazide. ALLERGIES: PENICILLIN AND SHE GETS HIVES FROM IBUPROFEN AND YEAST INFECTION FOR TETRACYCLINES. ADDENDUM: Annia Igorkyle advised to follow-up in the clinic in 1-2 weeks. KASSY NAVARRETE MD By: Tobi Villanueva PA-C MT: [email or web address] Document: [id number] ADDENDUM: [id number] [place], [place] Name: ANNIA SNYDER Please refer to the Nursing Discharge Information Sheet for more detailed information regarding diet, physical activity limitations, medications and other pertinent instructions given to this patient upon discharge. DISCHARGE SUMMARY Page 2 of 1 LCN: 33 DSC: 08/13/2005 [place], [place] Name: ANNIA SNYDER MR#: : Admit Date: -77 1935 08/06/2005 Doctor: KASSY NAVARRETE MD Please refer to the Nursing Discharge Information Sheet for more detailed information regarding diet, physical activity limitations, medications and other pertinent instructions given to this patient upon discharge. DISCHARGE SUMMARY Page 1 of 1 documented in this encounter Plan of Treatment Not on filedocumented as of this encounter Visit Diagnoses Not on filedocumented in this encounter Care Teams Email Campaign Specialist Relationship Specialty Start Date End Date Nader Garibay MD PCP - General 01/01/02 10/16/17 documented as of this encounter
--- OUTSIDE RECORDS SUMMARY | 2022-10-07 10:52 | XMS_ITS | Encounter Summary ---
:1935 Author Organization [place] Address [address] [place] [address] Care Team Providers Name Role Phone Nader Garibay MD Primary Care Provider Encounter Details Date Type Department Care Team Description 08/13/2005 Discharge Summary [facility] Maximo Malin (Soap Slabber) [facility] MD Ignacio [address] [phone] Social History Tobacco Use Types Packs/Day Years Used Date Smoking Tobacco: Never Alcohol Use Standard Drinks/Week Comments Yes 0 (1 standard drink = 0.6 oz pure alcoho l) SELDOM Sex Assigned at Date Recorded Not on file documented as of this encounter Progress Notes Maximo Malin - 08/13/2005 11:59 PM CDT PATIENT INFORMATION: Annia Snyder is a 69-year-old admitted emergently for perforated viscus on 08/06. Please see H&P by Dr. Navarrete, etal. PAST MEDICAL HISTORY: 1. Diabetes. 2. Arthritis. 3. Depression. 4. Hypertension. 5. Hyperlipidemia. 6. Past history of peptic ulcer disease. 7. Sleep apnea. 8. Restless leg syndrome. HOSPITAL COURSE: The patient underwent exploratory laparotomy and resection of sigmoid colon on 08/[address] Navarrete for perforated viscus. Postoperatively she had a slow but progressively improving course and was tolerating intake well at the time of discharge. In-hospital sugars remained good. Blood pressure was controlled. The patient does have some symptoms of restless leg syndrome and continued on her Mirapex. Of importance the patient has not been on CPAP for her known sleep apnea. She has seen Dr. Ann Zavala in the past and agrees to following up with her. The patient has had a 50 pound weight loss which may have changed her CPAP needs. The biggest problem has been inability to tolerate mask. We have discussed the options of different mask types for her and she agrees to follow up with regard to this. Lastly, mood has been good and patient is wondering if her symptoms were not more related to restless legs and sleep apnea. For this reason Effexor is being weaned off and the patient will be followed to this regard. FINAL DIAGNOSIS: 1. Ruptured sigmoid diverticulum, status post sigmoid resection. 2. Hypertension. 3. Restless leg syndrome. 4. Obstructive sleep apnea. 5. History of depression. DISCHARGE MEDICATIONS: 1. Percocet p.r.n. 2. Flagyl and Augmentin x6 days. 3. Mirapex 0.5 mg q bed-time.. 4. Nexium 40 mg daily. 5. Lipitor 10 mg nightly. 6. Hydrochlorothiazide 25 mg daily. 7. Effexor - wean over the next few weeks. 8. OTC Aleve p.r.n. The patient is to contact Dr. Ann Zavala for follow up. She will see Dr. Last Navarrete in approximately three days. She should follow up with [facility] on p.r.n. basis and/or assessment of progress off Effexor. MAXIMO MALIN MD MT: [email or web address] Document: [id number] [place], [place] Name: ANNIA SNYDER Please refer to the Nursing Discharge Information Sheet for more detailed information regarding diet, physical activity limitations, medications and other pertinent instructions given to this patient upon discharge. DISCHARGE SUMMARY Page 2 of 2 LCN: 33 DSC: [place], [place] Name: ANNIA SNYDER MR#: : Admit Date: [id number] 1935 08/06/2005 Doctor: MAXIMO MALIN MD Please refer to the Nursing Discharge Information Sheet for more detailed information regarding diet, physical activity limitations, medications and other pertinent instructions given to this patient upon discharge. DISCHARGE SUMMARY Page 1 of 2 documented in this encounter Plan of Treatment Not on filedocumented as of this encounter Visit Diagnoses Not on filedocumented in this encounter Care Teams Sample Color Maker Relationship Specialty Start Date End Date Nader Garibay MD PCP - General 01/01/02 10/16/17 documented as of this encounter
--- OUTSIDE RECORDS SUMMARY | 2022-10-07 10:52 | XMS_ITS | Encounter Summary ---
:1935 Author Organization [place] Address [address] [place] [address]. [place] [address] Care Team Providers Name Role Phone Nader Garibay MD Primary Care Provider Encounter Details Date Type Department Care Team Description 08/06/2005 Results Only [facility] Camron [facility] , [facility] Results [facility] T [address] [place] [phone] (Wo rk) Social History Tobacco Use Types Packs/Day Years Used Date Smoking Tobacco: Never Alcohol Use Standard Drinks/Week Comments Yes 0 (1 standard drink = 0.6 oz pure alcoho l) SELDOM Sex Assigned at Date Recorded Not on file documented as of this encounter Plan of Treatment Not on filedocumented as of this encounter Procedures Procedure Name Priority Date/Time Associated Diagnosis Comme [facility] CT ABDOMEN W Routine 08/06/2005 12:26 PM Resul ts for this CONTRAST CDT procedure are i n the results section. documented in this encounter Results CT SCAN OF ABDOMEN CONTRAST (08/06/2005 12:26 PM CDT) Anatomical Region Laterality Modality Other Specimen (Source) Anatomical Collection Method Collection Time Re ceived Time Location / / Volume Laterality 08/06/2005 12:26 PM CDT Impressions 08/07/2005 10:[address] SCAN OF THE ABDOMEN AND PELVIS WITH O RAL AND I.V. CONTRAST ? HISTORY: ??A 69-year-old with abdominal pain. ??The patient has a history of a previous appendectomy. ? FINDINGS: ??The liver and spleen are nor mal in size and contour without evidence of a mass. ??There is p neumoperitoneum with air seen in the peritoneal cavity superiorly. ??T here are diverticula seen throughout the colon without definite ev idence of diverticulitis. ?? The cause of the pneumoperitoneum is not readily apparent but most likely is secondary to a ruptured viscus . ??I cannot exclude a ruptured diverticula. ??Clinical correla tion is recommended. ??A small calcification in the lower portion of th e right kidney consistent with nephrolithiasis. ??A probable small cyst in the left kidney. ??A probable small calcified uterine fibroid . ??A total hip arthroplasty on the right which obscures some detail. ? IMPRESSION: 1) ?Pneumoperitoneum of unknow n origin. 2) ?Diverticula are seen throu ghout the colon without definite evidence of diverticulitis. 3) ?Nephrolithiasis on the rig ht. ?? 4) ?A right total hip arthropl asty. ? Camron Ellington MD SPECIAL IMAGING STUDIES documented in this encounter Visit Diagnoses Not on filedocumented in this encounter Care Teams Sales Solutions Representative Relationship Specialty Start Date End Date Nader Garibay MD PCP - General 01/01/02 10/16/17 documented as of this encounter
--- OUTSIDE RECORDS SUMMARY | 2022-10-07 10:52 | XMS_ITS | Encounter Summary ---
:1935 Author Organization [place] Address [address] [place] [address] Care Team Providers Name Role Phone Nader Garibay MD Primary Care Provider Encounter Details Date Type Department Care Team Description 09/20/2005 Historic Results INTERFACED REPORT Ann Zavala MD [facility] [address] [place] [address] (Wo rk) Social History Tobacco Use Types Packs/Day Years Used Date Smoking Tobacco: Never Alcohol Use Standard Drinks/Week Comments Yes 0 (1 standard drink = 0.6 oz pure alcoho l) SELDOM Sex Assigned at Date Recorded Not on file documented as of this encounter Plan of Treatment Not on filedocumented as of this encounter Procedures Procedure Name Priority Date/Time Associated Diagnosis Comme nts MAGNESIUM Routine 09/20/2005 12:14 PM Results for this HALFTONE OPERATOR procedure are i n the results section . IRON Routine 09/20/2005 12:14 PM Results for this HALFTONE OPERATOR procedure are i n the results section . FERRITIN Routine 09/20/2005 12:14 PM Results for this HALFTONE OPERATOR procedure are i n the results section . documented in this encounter Results Iron (09/20/2005 12:14 PM HALFTONE OPERATOR) P athologist Signature Iron 39 35 - 180 MISYS ug/dL Specimen Anatomical Collection Method Collection Time Receive d Time (Source) Location / / Volume Laterality 09/20/2005 12:14 09/20/2005 PM HALFTONE OPERATOR 12:17 PM HALFTONE OPERATOR Ann Zavala MD LAB - BLOOD ORDERABLES Performing Organization Address City/State/ZIP Code Phon e Number MISYS Ferritin (09/20/2005 12:14 PM HALFTONE OPERATOR) athologist Signature Ferritin 33 10 - 300 MISYS ng/mL Specimen Anatomical Collection Method Collection Time Receive d Time (Source) Location / / Volume Laterality 09/20/2005 12:14 09/20/2005 PM HALFTONE OPERATOR 12:17 PM HALFTONE OPERATOR Ann Zavala MD LAB - BLOOD ORDERABLES Performing Organization Address City/[facility] Code Phon e Number MISYS Magnesium (09/20/2005 12:14 PM HALFTONE OPERATOR) athologist Signature Magnesium 2.1 1.6 - 2.3 MISYS mg/dL Specimen Anatomical Collection Method Collection Time Receive d Time (Source) Location / / Volume Laterality 09/20/2005 12:14 09/20/2005 PM HALFTONE OPERATOR 12:17 PM HALFTONE OPERATOR Ann Zavala MD LAB - BLOOD ORDERABLES Performing Organization Address City/[facility]/ZIP Code Phon e Number MISYS documented in this encounter Visit Diagnoses Not on filedocumented in this encounter Care Teams Garde Manger Relationship Specialty Start Date End Date Nader Garibay MD PCP - General 01/01/02 10/16/17 documented as of this encounter
--- OUTSIDE RECORDS SUMMARY | 2022-10-07 10:52 | XMS_ITS | Encounter Summary ---
:1935 Author Organization [facility] Address [address] [place] [address]. [place] [address] Care Team Providers Name Role Phone Nader Garibay MD Primary Care Provider Reason for Visit Reason Comments Wind Energy Mechanic Exam concerns ? Encounter Details Date Type Department Care Team Description 01/08/2006 Office Visit [facility] Rain Shepard ROUTINE [facility] Tiny Rangel MD EXAMINATI ON (Primary [place] Dx) [address] [address] Social History Tobacco Use Types Packs/Day Years Used Date Smoking Tobacco: Never Alcohol Use Standard Drinks/Week Comments Yes 0 (1 standard drink = 0.6 oz pure alcoho l) SELDOM Sex Assigned at Date Recorded Not on file documented as of this encounter Last Filed Vital Signs Vital Sign Reading Time Taken Comments Blood Pressure 108/64 01/08/2006 1:45 PM INBOUND CUSTOMER SERVICE REPRESENTATIVE Pulse - - Temperature - - Respiratory Rate - - Oxygen Saturation - - Inhaled Oxygen Concentration - - Weight 100.2 kg (221 lb) 01/08/2006 1:45 PM INBOUND CUSTOMER SERVICE REPRESENTATIVE Height 166.4 cm (5' 5.5) 01/08/2006 1:45 PM INBOUND CUSTOMER SERVICE REPRESENTATIVE Body Mass Index 36.22 01/08/2006 1:45 PM INBOUND CUSTOMER SERVICE REPRESENTATIVE documented in this encounter Progress Notes Rain Shepard - 01/13/2006 12:56 PM CST SUBJECTIVE: Annia Snyder is an 70 year old P:2 postmenopausal woman who presents for annual pulmonary physical therapist exam. Menopause at age 54. Patient denies any vaginal bleeding. Desires to resume sexual intercourse. Estrogen replacement therapy: never [place] exposure: no History of abnormal Pap smear: no Family history of uterine or ovarian cancer: yes - below Family history of breast cancer: no Regular Self Breast Exams: yes - History of abnormal mammogram: no History of abnormal lipids: yes - Txed Bone density study: yes - done Past Medical History Diagnosis Date ??? MIXED HYPERLIPIDEMIA ??? ESOPHAGEAL REFLUX ??? DEPRESSIVE DISORDER NEC ??? EDEMA ??? LOC PRIM OSTEOART-L/LEG ??? OTHER UNSPEC SLEEP APNEA ??? RESTLESS LEG SYNDROME Family History Problem Relation ??? Stroke Mother D ; AGE 88 ??? Cancer Father D ; AGE 59 LUNG CANCER ??? Cancer Sister KIDNEY ??? Gynecology Sister ENDOMETRIOSIS ??? Family History Negative Sister ??? Cancer Paternal Grandmother OVARIAN ??? Heart Paternal Grandfather CO ??? Depression Son Past Surgical History Procedure Date ??? delivery only , Low Cervical,X2 ??? Dilation/curettage,diagnostic X3 IN HER 50s ??? Appendectomy 1950 ??? Surgical history of - 2004 Partial sigmoid resection secondary to ruptured diverticulum. ??? Pelvis/hip joint surgery unlisted Current Outpatient Rx Name Route Sig Dispense Refill ??? LIPITOR 20 MG OR TABS Oral 1 tab PO QD (Once per day) 30 5 ??? MIRAPEX 0.5 MG OR TABS Oral 2 tabs Qhs 0 ??? VOLTAREN 75 MG OR TBEC Oral 1 TABLET TWICE DAILY 60 0 ??? NEXIUM 40 MG OR CPDR Oral 1 CAPSULE DAILY 90 3 ??? EFFEXOR XR 75 MG OR CP24 Oral 3 capsules daily with food 90 1 ??? LIPITOR 10 MG OR TABS Oral 1 tab PO QD (Once per day) 30 0 ??? HYDROCHLOROTHIAZIDE 25 MG OR TABS Oral 1 TAB PO QD (Once per day) 100 3 ??? FELDENE 20 MG OR CAPS Oral 1 CAPSULE DAILY 30 5 Allergies Allergen Reactions ??? 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 Tetracycline History Substance Use Topics ??? Tobacco Use: Never ??? Alcohol Use: Yes SELDOM ROS: CONSTITUTIONAL:negative for wt. loss, wt. gain, fatigue and fever. ENT/MOUTH: denies PIERRE, Sinus pain, tinitus RESP: negative for cough,productive, hemoptysis and SOB/dyspnea CV: negative for chest pain/chest pressure, diaphoresis and palpitations GI: denies constipation, diarrhea, hematochezia, nausea and vomiting : Negative for Dysuria, Frequency, Hematuria and Urgency MUSCULOSKELATAL: negative for joint pain, swelling and myalgia. INTEGUMENTARY/SKIN: negative for bruising, lumps or bumps and rash. BREAST: denies masses PSYCHIATRIC: denies sadness and crying NEURILOGIC: Denies Sz., LOC, Paresthesias OBJECTIVE: Exam: GENERAL APPEARANCE: healthy, alert and no distress EYES: EOMI, fundi benign- PERRL HENT: nose and mouth without ulcers or lesions NECK: no adenopathy, no asymmetry, masses, or scars and thyroid normal to palpation RESP: lungs clear to auscultation - no rales, rhonchi or wheezes BREAST: normal without masses, tenderness or nipple discharge and no palpable axillary masses or adenopathy CV: regular rates and rhythm, normal S1 S2, no S3 or S4 and no murmur, click or rub - ABDOMEN: soft, nontender, no HSM or masses and bowel sounds normal MS: extremities normal- no gross deformities noted, no evidence of inflammation in joints, FROM in all extremities. NEURO: Normal strength and tone, sensory exam grossly normal, mentation intact and speech normal Pelvic Exam: Vulva: No external lesions, normal hair distribution, no adenopathy Vagina: Moist, pink, no abnormal discharge, well rugated, no lesions Cervix: Pap smear is taken, parous, smooth, pink, no visible lesions Uterus: Normal size, anteverted, non-tender, mobile 7 Ovaries: No mass, non-tender, mobile Rectal exam: No mass, non-tender, normal sphincter tone, hemoccult negative ASSESSMENT/PLAN: V72.31 ROUTINE GOVERNMENT SALES MANAGER EXAMINATION (primary encounter diagnosis) Desires to resume sexual intercourse. Colon - Done, Dexa - Done, Lipids - Done Plan: A THIN LAYER PAP SCREEN Lipids - Ordered, To Start Vaginal Estogen PE: reviewed health maintenance including diet, regular exercise and periodic exams. No health maintenance topics applied. UND CUSTOMER SERVICE REPRESENTATIVE documented in this encounter Nursing Notes 01/08/2006 1:45 PM CST >> RELL JEAN 01/08/2006 2:25 pm Nurse assisted visit. Rx for Extrace Vag. Cream 1 applicator at [facility] Called to [facility] Pt. Advised to make return visit in 1 month. Fred Jean RN >> CLAUDETTE RAMIREZ 01/08/2006 1:36 pm Annia Snyder presents for pap- pt has concerns??. Initial Ht 5' 5.5 (1.66m) Wt 221 lbs (100.2kg) LMP Postmenopausal Body mass index is 36.20 kg/(m^2).. BP completed using cuff size: large Cindi Ramirez MA documented in this encounter Plan of Treatment Not on filedocumented as of this encounter Procedures Procedure Name Priority Date/Time Associated Diagnosis Comme nts HCL PAP THIN LAYER Routine 01/08/2006 12:00 AM Routine Wind Energy Mechanic Re sults for this SCREEN INBOUND CUSTOMER SERVICE REPRESENTATIVE Examination procedure are i n the results section. documented in this encounter Results A THIN LAYER PAP SCREEN (01/08/2006 12:00 AM INBOUND CUSTOMER SERVICE REPRESENTATIVE) Component Value Ref Test Analysis Performed At [facility] gist Range Method Time Signature PAP NIL COPATH Copath Report COPATH Patient Name: ANNIA SNYDER MR#: [id number] Specimen #: [id number] Collected: 01/08/2006 Received: 01/13/2006 Reported: 01/15/2006 08:59 Ordering Phy(s): RAIN SHEPARD SPECIMEN/STAIN PROCESS: Pap thin layer prep screening ([facility]) ? Pap-Cyto x 1, Reflex HPV x 1 SOURCE: Cervical, endocervical ---- Pap thin layer prep screening ([facility]) SPECIMEN ADEQUACY: Satisfactory for evaluation. -Transitional zone component present. CYTOLOGIC INTERPRETATION: Negative for Intraepithelial Lesion or Malignancy Electronically signed out by: ROCIO Valdez (ASCP) Processed and screened at [facility], [facility] CLINICAL HISTORY: Post Menopausal, Previous normal pap Date of Last Pap: 2001, TESTING LAB LOCATION: [address] [place] ??[address] COLLECTION SITE: Client: ??[facility] Location: [facility] (S) Specimen (Source) Anatomical Collection Method Collection Time Re ceived Time Location / / Volume Laterality 01/08/2006 01/13/2006 8:39 AM INBOUND CUSTOMER SERVICE REPRESENTATIVE Rain Shepard MD LABORATORY Performing Organization Address City/State/ZIP Code Phon e Number COPATH documented in this encounter Visit Diagnoses Diagnosis Routine gynecological examination - Prim levi documented in this encounter Care Teams Senior Software Tester Relationship Specialty Start Date End Date Nader Garibay MD PCP - General 01/01/02 10/16/17 documented as of this encounter
--- OUTSIDE RECORDS SUMMARY | 2022-10-07 10:52 | XMS_ITS | Encounter Summary ---
:1935 Author Organization [facility] Address [facility] [place] [address] Care Team Providers Name Role Phone Nader Garibay MD Primary Care Provider Encounter Details Date Type Department Care Team Description 08/08/2005 Historic Results INTERFACED REPORT Wendy Navarrete MD [address] [facility] [id number] [place] [id number] (Wo rk) Social History Tobacco Use Types [...] Priority Date/Time Associated Comments Diagnosis HEMOGRAM DIFFERENTIAL Routine 08/08/2005 7:12 AM Results for this AND PLATELET CDT procedure are i n the results section. BASIC METABOLIC PANEL Routine 08/08/2005 7:12 AM Results for this CDT procedure are i n the results section. documented in this encounter Results (ABNORMAL) Hemogram differential and platelet (08/08/2005 7:12 AM CDT) [facility] Method Time Signature MCV 83 78 - 100 MIS[place] fl MCH 28.8 26.5 - MISYS 33.0 pg MCHC 34.8 32.0 - MISYS 36.0 g/dL RDW 14.0 10.0 - MISYS 15.0 % WBC 10.7 4.0 - MISYS 11.0 10e9/L RBC Count 4.08 3.8 - 5.2 MISYS 10e12/L Hemoglobin 11.7 11.7 - MISYS 15.7 g/dL Hematocrit 33.7 (L) 35.0 - MISYS 47.0 % % Neutrophils 86 (H) 40 - 75 % MISYS % Lymphocytes 7 (L) 20 - 48 % MISYS % Monocytes 6 0 - 12 % MISYS % Eosinophils 0 0 - 6 % MISYS % Basophils 1 0 - 2 % MISYS Platelet Count 240 150 - 450 MISYS 10e9/L Absolute 9.1 (H) 1.6 - 8.3 MISYS Neutrophil 10e9/L Absolute 0.7 (L) 0.8 - 5.3 MISYS Lymphocytes 10e9/L Absolute 0.7 0.0 - 1.3 MISYS Monocytes 10e9/L Absolute 0.0 0.0 - 0.7 MISYS Eosinophils 10e9/L Absolute 0.1 0.0 - 0.2 MISYS Basophils 10e9/L Diff Method Automated MISYS Method Specimen (Source) Anatomical Collection Method Collection Time Re ceived Time Location / / Volume Laterality 08/08/2005 7:12 AM 5 CDT Last Navarrete MD LAB - BLOOD ORDERABLES Performing Organization Address City/State/ZIP Code Phon e Number MISYS Basic metabolic panel (08/08/2005 7:12 AM CDT) P athologist Signature Sodium 137 133 - 144 [place] mmol/L Potassium 5.3 3.4 - 5.3 [place] mmol/L Chloride 103 94 - 109 [place] mmol/L Carbon Dioxide 28 20 - 32 [place] mmol/L Glucose 94 60 - 110 [place] mg/dL Urea Nitrogen 19 7 - 30 MIS[place] mg/dL Creatinine 0.92 0.60 - MISYS 1.30 mg/dL GFR Estimate 65 >60 MISYS mL/min/1.7 m2 GFR Estimate If 78 >60 MIS[facility] Black mL/min/1.7 m2 Calcium 8.7 8.5 - 10.4 MIS[facility] mg/dL Anion Gap 6 6 - 17 [place] mmol/L Specimen (Source) Anatomical Collection Method Collection Time Re ceived Time Location / / Volume Laterality 08/08/2005 7:12 AM 5 CDT Last Navarrete MD LAB - BLOOD ORDERABLES Performing Organization Address City/State/ZIP Code Phon e Number MISYS documented in this encounter Visit Diagnoses Not on filedocumented in this encounter Care Teams Template Storage Clerk Relationship Specialty Start Date End Date Nader Garibay MD PCP - General 01/01/02 10/16/17 documented as of this encounter
--- OUTSIDE RECORDS SUMMARY | 2022-10-07 10:52 | XMS_ITS | Encounter Summary ---
:1935 Author Organization [facility] Address [address] [place] [address]. [place] [address] Care Team Providers Name Role Phone Nader Garibay MD Primary Care Provider Reason for Visit Reason Onset Date Comments Forms 12/12/2005 Diabetic supplies Encounter Details Date Type Department Care Team Description 12/12/2005 Telephone [facility] Nader Garibay Fo khadijah (Diabetic [facility] MD Bro supplies) [address] [address] [phone] Social History Tobacco Use Types Packs/Day Years Used Date Smoking Tobacco: Never Alcohol Use Standard Drinks/Week Comments Yes 0 (1 standard drink = 0.6 oz pure alcoho l) SELDOM Sex Assigned at Date Recorded Not on file documented as of this encounter Miscellaneous Notes Telephone Encounter - Sheridan Shields - 12/13/2005 10:10 AM CST Pt advised. SIGN SERVICER Telephone Encounter - Sabrina Lee - 12/12/2005 10:31 AM CST Left message for pt. to call back Needs to get established with another IM due to halfway. See note below. SIGN SERVICER Telephone Encounter - Jeffy Cannon - 12/12/2005 9:39 AM CST Pt last had A1C 05/19 (normal)and on no DM meds. Pt to make appt with new PMD and then can have issuere: forms addressed SIGN SERVICER Telephone Encounter - Sabrina Lee - 12/12/2005 9:18 AM CST Diabetic supply [employer] sending request for supplies for pt. Pt. is former [facility] pt. who has not been seen by any DrSharon since May 21 or have not been established with another IM. Need to fax back to diabetic supplies either way advise/ form being faxed to [phone] SIGN SERVICER documented in this encounter Plan of Treatment Not on filedocumented as of this encounter Visit Diagnoses Not on filedocumented in this encounter Care Teams Delivery Tech Relationship Specialty Start Date End Date Nader Garibay MD PCP - General 01/01/02 10/16/17 documented as of this encounter
--- OUTSIDE RECORDS SUMMARY | 2022-10-07 10:52 | XMS_ITS | Encounter Summary ---
:1935 Author Organization [facility] Address [address] [place] [address] Care Team Providers Name Role Phone Donte Skinner MD Primary Care Provider Encounter Details Date Type Department Care Team Description 08/06/2005 Historic Results INTERFACED REPORT Allyssa Ellington MD [place] [facility] [address] [place] [address] (Wo rk) Social History Tobacco Use [...] Date/Time Associated Comments Diagnosis HEMOGRAM DIFFERENTIAL STAT 08/06/2005 10:45 Re sults for this AND PLATELET AM CDT procedure are i n the results section. LIPASE STAT 08/06/2005 10:45 Results for this AM CDT procedure are i n the results section. COMPREHENSIVE METABOLIC STAT 08/06/2005 10:45 Results for this PANEL AM CDT procedure are i n the results section. UA MACROSCOPIC WITH STAT 08/06/2005 10:35 Resu lts for this REFLEX TO MICRO AM CDT procedure ar e in the results section. URINE MICROSCOPIC EXAM Routine 08/06/2005 10:35 R esults for this AM CDT procedure are i n the results section. HISTOPATHOLOGY Routine 08/06/2005 12:00 Results f or this AM CDT procedure are i n the results section. documented in this encounter Results (ABNORMAL) Hemogram differential and platelet (08/06/2005 10:45 AM CDT) Patholo gist Method Time Signature MCV 82 78 - 100 MISYS fl MCH 28.1 26.5 - MISYS 33.0 pg MCHC 34.4 32.0 - MISYS 36.0 g/dL RDW 14.6 10.0 - MISYS 15.0 % WBC 13.1 (H) 4.0 - MISYS 11.0 10e9/L RBC Count 4.67 3.8 - 5.2 MISYS 10e12/L Hemoglobin 13.1 11.7 - MISYS 15.7 g/dL Hematocrit 38.2 35.0 - MISYS 47.0 % % Neutrophils 88 (H) 40 - 75 % MISYS % Lymphocytes 7 (L) 20 - 48 % MISYS % Monocytes 5 0 - 12 % MISYS % Eosinophils 0 0 - 6 % MISYS % Basophils 0 0 - 2 % MISYS Platelet Count 268 150 - 450 MISYS 10e9/L Absolute 11.5 (H) 1.6 - 8.3 MISYS Neutrophil 10e9/L Absolute 1.0 0.8 - 5.3 MISYS Lymphocytes 10e9/L Absolute 0.7 0.0 - 1.3 MISYS Monocytes 10e9/L Absolute 0.0 0.0 - 0.7 MISYS Eosinophils 10e9/L Absolute 0.0 0.0 - 0.2 MISYS Basophils 10e9/L Diff Method Automated MISYS Method Specimen Anatomical Collection Method Collection Time Receive d Time (Source) Location / / Volume Laterality 08/06/2005 10:45 08/06/2005 AM CDT 10:28 AM CDT Camron Ellington MD LAB - BLOOD ORDERABLES Performing Organization Address City/State/ZIP Code Phon e Number MISYS (ABNORMAL) Comprehensive metabolic panel (08/06/2005 10:45 AM CDT) P athologist Signature Sodium 141 133 - 144 [place] mmol/L Potassium 4.0 3.4 - 5.3 [place] mmol/L Chloride 101 94 - 109 [place] mmol/L Carbon Dioxide 33 (H) 20 - 32 [place]IS[place] mmol/L Glucose 93 60 - 110 MIS[place] mg/dL Urea Nitrogen 25 7 - 30 MISYS mg/dL Creatinine 1.08 0.60 - MISYS 1.30 mg/dL GFR Estimate 54 (L) >60 MISYS mL/min/1.7 m2 GFR Estimate If 65 >60 MIS[facility] Black mL/min/1.7 m2 Calcium 9.1 8.5 - 10.4 MISYS mg/dL AST 19 0 - 45 U/L MISYS Protein Total 7.0 6.0 - 8.2 MIS[place] g/dL Anion Gap 7 6 - 17 [place] mmol/L Albumin 3.6 3.2 - 4.5 MISYS g/dL ALT 19 0 - 50 U/L MISYS Alkaline 88 40 - 150 [facility] Phosphatase U/L Bilirubin Total 0.3 0.2 - 1.3 MIS[place] mg/dL Specimen Anatomical Collection Method Collection Time Receive d Time (Source) Location / / Volume Laterality 08/06/2005 10:45 08/06/2005 AM CDT 10:28 AM CDT Camron Ellington MD LAB - BLOOD ORDERABLES Performing Organization Address City/State/ZIP Code Phon e Number MISYS Lipase (08/06/2005 10:45 AM CDT) P athologist Signature Lipase 105 20 - 250 U/L MISYS Specimen Anatomical Collection Method Collection Time Receive d Time (Source) Location / / Volume Laterality 08/06/2005 10:45 08/06/2005 AM CDT 10:28 AM CDT Camron Ellington MD LAB - BLOOD ORDERABLES Performing Organization Address City/State/ZIP Code Phon e Number MISYS (ABNORMAL) UA macroscopic with reflex to micro (08/06/2005 10:35 AM CDT) Patholo gist Method Time Signature Source Midstream MISYS Urine Color Urine Yellow MISYS Appearance Urine Clear MISYS Glucose Urine Negative NEG mg/dL MISYS Bilirubin Urine Negative NEG MISYS Ketones Urine Negative NEG mg/dL MISYS Specific [place] 1.015 1.001 - MISYS Urine 1.035 Blood Urine Negative NEG MISYS pH Urine 8.0 (H) 5.0 - 7.0 MISYS pH Protein Albumin 30 (A) NEG mg/dL MISYS Urine Urobilinogen 0.2 0.2 - 1.0 MISYS Urine EU/dL Nitrite Urine Negative NEG MIS[facility] Leukocyte Negative NEG MIS[facility] Esterase Urine Specimen Anatomical Collection Method Collection Time Receive d Time (Source) Location / / Volume Laterality 08/06/2005 10:35 08/06/2005 AM CDT 10:28 AM CDT Camron Ellington MD LAB - URINE ORDERABLES Performing Organization Address City/State/ZIP Code Phon e Number MISYS Microscopic exam urine (08/06/2005 10:35 AM CDT) P athologist Signature WBC Urine O - 2 0 - 2 /HPF MIS[facility] RBC Urine O - 2 0 - 2 /HPF MIS[facility] Specimen Anatomical Collection Method Collection Time Receive d Time (Source) Location / / Volume Laterality 08/06/2005 10:35 08/06/2005 AM CDT 10:45 AM CDT Camron Ellington MD LAB - URINE ORDERABLES Performing Organization Address City/State/ZIP Code Phon e Number MISYS Histopathology (08/06/2005 12:00 AM CDT) Component Value Ref Test Analysis Performed Pathologis t Range Method Time At Signature Copath CASE: [id number] ^ COPATH Report Patient Name: ANNIA CARD MR#: [id number] Specimen #: [id number] Collected: 08/06/2005 Received: 08/07/2005 Reported: 08/08/2005 11:28 Ordering Phy(s): KASSY NAVARRETE Additional Phy(s): DONTE SKINNER SPECIMEN(S): Sigmoid colon FINAL DIAGNOSIS: Large intestine at sigmoid colon, resection: Perforated acute diverticulitis. Electronically signed out by: Tobi Long M.D. CLINICAL HISTORY: Perforated viscus. GROSS: The specimen, submitted as perforated sigmoid diverticuliti s, consists of an unopened segment of large intestine measuring 13 cm in length after fixation. ??The fat and serosal surface of the bowel s how deposition of purulent material over an area measuringapprox imately 6 x 2 cm in surface dimension. ??Opening the bowel shows it to c ontain some soft dark stool. ??The bowel mucosa is intact without tumor or surface mucosal abnormalities. ??The specimen resection margins are grossly unremarkable. ??Serial sectioning of the bowel shows multipl e diverticula several of which show adjacent hemorrhage and purulent mater ial. Gas Substation Operator sections are taken. ?? GJC/ln MICROSCOPIC: Sections from large intestine show extensive acute diverticu litis with perforation and serosal inflammatory reaction. ??Additional pathologic abnormalities are not present. GJC/ln 08/08/05 TESTING LAB LOCATION: [address] ??[phone] COLLECTION SITE: Client: [facility] Location: 33 (S) Specimen (Source) Anatomical Collection Method Collection Time Re ceived Time Location / / Volume Laterality 08/06/2005 08/08/2005 11:2 8 AM CDT Kassy Navarrete MD LAB - COPATH SPECIAL DIAG OR DERABLES Performing Organization Address City/State/ZIP Code Phon e Number COPATH documented in this encounter Visit Diagnoses Not on filedocumented in this encounter Care Teams Tax Collector Relationship Specialty Start Date End Date Donte Skinner MD PCP - General 01/01/02 10/16/17 documented as of this encounter
--- OUTSIDE RECORDS SUMMARY | 2022-10-07 10:52 | XMS_ITS | Encounter Summary ---
:1935 Author Organization [facility] Address [address] [place] [address] Care Team Providers Name Role Phone Nader Garibay MD Primary Care Provider Reason for Visit Reason Onset Date Comments UTI 04/03/2006 Encounter Details Date Type Department Care Team Description 04/03/2006 Telephone [facility] Nader Garibay MD [address] [address] [place] [phone] Social History Tobacco Use Types Packs/Day Years Used Date Smoking Tobacco: Never Alcohol Use Standard Drinks/Week Comments Yes 0 (1 standard drink = 0.6 oz pure alcoho l) SELDOM Sex Assigned at Date Recorded Not on file documented as of this encounter Miscellaneous Notes Telephone Encounter - Scarlett Dhaliwal - 04/03/2006 1:02 PM CDT patient advised appt. Scheduled SCARLETT DHALIWAL MA Telephone Encounter - Nader Garibay - 04/03/2006 11:16 AM CDT I would prefer that she be seen in clinic to discuss this - she can come in tomorrow at 2:15 PM if she wishes. Telephone Encounter - Sabrina Lee - 04/03/2006 10:39 AM CDT Pt. States for past 2 days having burning upon urination, and has had urgency with some incontinencepast 2 days. No back pain, no blood in urine No temp. Urine is not exceptionally dark. No openings with 1) Could pt. Do UA only today Has appt Friday with Ortho in [facility] Pt. Didn't have enough money to get RX for Lipitor 20 as RX'd at office visit 12/26- Off Lipitor for 3 weeks So is now sending in for this dose and will delay getting labs until end jun then see Dr. Garibay after. Had appts for this month for both but cancelled. documented in this encounter Plan of Treatment Not on filedocumented as of this encounter Visit Diagnoses Not on filedocumented in this encounter Care Teams Mica Machine Operator Relationship Specialty Start Date End Date Nader Garibay MD PCP - General 01/01/02 10/16/17 documented as of this encounter
--- OUTSIDE RECORDS SUMMARY | 2022-10-07 10:52 | XMS_ITS | Encounter Summary ---
:1935 Author Organization [place] Address [facility] [place] [address] Care Team Providers Name Role Phone Nader Garibay MD Primary Care Provider Encounter Details Date Type Department Care Team Description 08/06/2005 Operative Report Kassy Navarrete (Landman) [address] [facility] [id number] [place], [place] [id number] (Wo rk) Social History Tobacco Use Types Packs/Day Years Used Date Smoking Tobacco: Never Alcohol Use Standard Drinks/Week Comments Yes 0 (1 standard drink = 0.6 oz pure alcoho l) SELDOM Sex Assigned at Date Recorded Not on file documented as of this encounter Progress Notes Kassy Navarrete - 08/06/2005 11:59 PM CDT 1st ASS'T: Daphne Ferro, PAC 2nd ASS'T: Araceli Strong, PAC PRE-OPERATIVE DIAGNOSIS:Perforated viscus. POST-OPERATIVE DIAGNOSIS:Perforated viscus with the addition of perforated sigmoid diverticulitis. OPERATION: 1. Exploratory laparotomy. 2. Segmental sigmoid colon resection with primary anastomosis. ANESTHESIA: General. ESTIMATED BLOOD LOSS: 300 cc. DRAINS: 7 flat VANE in the pelvis. COMPLICATIONS: None. SPECIMENS: Segmental sigmoid colon resection with perforated acute diverticulitis. OPERATIVE INDICATIONS: Jaz Snyder is a 69-year-old female who presented to the Emergency Room at [facility] with a chief complaint of abdominal pain. This has been going on for approximately 21/2 weeks. It had gotten severe. She had had some low grade temps. She was seen and evaluated in the Emergency Room and underwent CT scan of the abdomen and pelvis which revealed pneumoperitoneum. She also, on clinical exam, had peritoneal signs. I therefore discussed with her, her therapeutic options. It was elected to proceed with abdominal exploration. I discussed with her the differential diagnosis of perforated ulcer as well as perforated diverticular disease and she consented to proceed. PROCEDURE: After informed consent was obtained, the patient was taken to the operating room and placed supine on the operating room table. Following the induction of adequate general endotracheal anesthesia, the patient's abdomen was shaved, prepped, and draped in usual sterile fashion. A midline laparotomy incision was made and carried down through the subcutaneous tissue using the Bovie electrocautery. The fascia was carefully divided in the midline and the peritoneal cavity was entered. Upon entering the peritoneal cavity, there was minimal peritoneal fluid. The upper abdomen was examined. The stomach was examined. There was no evidence of perforated ulcer. Exploration down into the pelvis revealed some fibrinous exudate as well as some palpable thickening in the sigmoid colon. A Bookwalter retractor was then used and positioned to provide optimal exposure to the pelvic contents. There was a definite segment of inflamed bowel with obvious area of perforation. The distal line of resection was identified and the bowel was divided using TA55 roticulating stapler. The proximal line of resection was also identified with normal end of bowel and without evidence of inflammation and this was divided using a GIA55 stapler. The mesentery to this intervening piece of bowel was taken down using the LigaSure instrument. The distal rectosigmoid colon was then mobilized and the left colon was mobilized along the white line of Toldt. We were able to bring these two ends of bowel together without tension. There was not a significant contamination in the operative field. The proximal bowel was milked and clamped to diminish the possibility of contamination. A btjo-in-yopz stapled anastomosis was then carried out using an endoscopic linear stapler, 45 mm load using 3.5 mm kandice. The enterotomies for the stapler were oversewn in a two-layer fashion using 3-0 Vicryl suture. The staple line was then also further imbricated and protected by tacking some adjacent colonic fat over this area. A 7 flat VANE was then placed down into the pelvis. This was brought out through a stab incision in the left lower quadrant. The abdominal cavity was then copiously irrigated until the affluent was essentially clear. The Bookwalter retractor was removed. Seprafilm procedure pack was then used to place multiple pieces of Seprafilm along the anterior surface of the abdominal contents. The midline was then closed using running #1 PDS suture starting inferiorly and superiorly and tied above the umbilicus. The wound was irrigated and closed with kandice. Overall, the patient tolerated this procedure well. At the conclusion of the case, all sponge, needle, and instrument counts were correct. The patient was extubated in the operating room and taken to the recovery room in a stable condition. KASSY NAVARRETE MD MT: taj Document: [id number] [place], [place] Name: ANNIA SNYDER OPERATIVE REPORT Page 3 of 2 LCN: 33 DSC: [place], [place] Name: ANNIA SNYDER MR#: : Procedure Date: -77 1935 08/06/2005 Surgeon: KASSY NAVARRETE MD OPERATIVE REPORT Page 1 of 2 documented in this encounter Plan of Treatment Not on filedocumented as of this encounter Visit Diagnoses Not on filedocumented in this encounter Care Teams Rn Forensic Relationship Specialty Start Date End Date Nader Garibay MD PCP - General 01/01/02 10/16/17 documented as of this encounter
--- OUTSIDE RECORDS SUMMARY | 2022-10-07 10:52 | XMS_ITS | Encounter Summary ---
:1935 Author Organization [place] Address [address] [place] [address] Care Team Providers Name Role Phone Nader Garibay MD Primary Care Provider Reason for Referral Specialty Diagnoses / Procedures Referred By Contact Refer red To Contact Nader Garibay MD [address] [phone] Referral ID Status Reason Start Date Expiration Date Visits Requ ested Visits Authorized SCREW ASSEMBLER Encounter Details Date Type Department Care Team Description 10/29/2005 Orders Only [facility] Nader Garibay DIAGNOSIS NOT YET Clinic Tiny Crabtree MD DEFINED (Primary Dx) [place] [address] [address] [phone] Social History Tobacco Use Types Packs/Day Years Used Date Smoking Tobacco: Never Alcohol Use Standard Drinks/Week Comments Yes 0 (1 standard drink = 0.6 oz pure alcoho l) SELDOM Sex Assigned at Date Recorded Not on file documented as of this encounter Plan of Treatment Not on filedocumented as of this encounter Procedures Procedure Name Priority Date/Time Associated Diagnosis Comme nts ZZ CONSULT PULMONARY Routine 01/18/2008 DIAGNOSIS NOT YET DEFINED MEDICINE documented in this encounter Results CONSULT PULMONARY MEDICINE (01/18/2008) Narrative This result has an attachment that is no t available. Nader Garibay MD REFERRAL documented in this encounter Visit Diagnoses Diagnosis DIAGNOSIS NOT YET DEFINED - Primary documented in this encounter Care Teams Teradata Solution Architect Relationship Specialty Start Date End Date Nader Garibay MD PCP - General 01/01/02 10/16/17 documented as of this encounter
--- OUTSIDE RECORDS SUMMARY | 2022-10-07 10:52 | XMS_ITS | Encounter Summary ---
:1935 Author Organization [place] Address [facility] [place] [address] Care Team Providers Name Role Phone Nader Garibay MD Primary Care Provider Encounter Details Date Type Department Care Team Description 08/06/2005 Admission H&P Kassy Navarrete, (Auto Rental Clerk) [address] [facility] [id number] [place], [place] [address] (Wo rk) Social History Tobacco Use Types Packs/Day Years Used Date Smoking Tobacco: Never Alcohol Use Standard Drinks/Week Comments Yes 0 (1 standard drink = 0.6 oz pure alcoho l) SELDOM Sex Assigned at Date Recorded Not on file documented as of this encounter Progress Notes Kassy Navarrete - 08/06/2005 11:59 PM CDT CHIEF COMPLAINT: Abdominal pain HISTORY OF PRESENT ILLNESS: Annia Snyder is a 69-year-old female who reports that she has had some generalized abdominal pain for the past jsa-[id number]-b-half-weeks. She reports that this has not changed significantly during that time frame but due to its lack of resolution she sought care at the emergency room today. She denies any nausea or vomiting. She denies any fevers, chills, or sweats. She denies any diarrhea, but does report she has had some constipation. She has had no melena or hematochezia. She reports that she has felt somewhat bloated, she has been passing flatus. She denies any type of urinary symptoms. She presented to the emergency room where she was seen and evaluated. A CT scan of the abdomen and pelvis revealed free intraperitoneal air. Surgical consult was then obtained for further evaluation and treatment. PAST MEDICAL HISTORY: 1. Previous history of peptic ulcer disease. 2. Hypercholesterolemia. 3. Hypertension. 4. Depression. 5. Osteoarthritis. 6. Diabetes. PAST SURGICAL HISTORY: 1. Total hip arthroplasty. 2. She has also had section x2. 3. Appendectomy. CURRENT MEDICATIONS: 1. Effexor. 2. Nexium. 3. Lipitor. 4. Mirapex. 5. Hydrochlorothiazide. ALLERGIES: SHE REPORTS AN ALLERGY TO PENICILLIN. REVIEW OF SYSTEMS: Negative with the exception of the above mentioned complaints. SOCIAL HISTORY: She denies smoking or significant alcohol use. PHYSICAL EXAMINATION: Temperature 98.5. Blood pressure 120/73. Pulse 68. Respirations 16. Sating 96% on room air. GENERAL: This is appropriate for age woman sitting on the emergency room cart in no obvious acute distress. HEENT: Normocephalic, atraumatic. Pupils are equal. Sclera nonicteric. NECK: Supple. LUNGS: Clear. HEART: Regular. ABDOMEN: Abdomen is soft, diffusely tender with peritoneal signs. She has normoactive bowel sounds. EXTREMITIES: Extremities are normal. LABORATORY AND DIAGNOSTIC DATA: Laboratories are reviewed. She was found to have a mildly elevated white blood cell count of 13,000. Laboratories were otherwise essentially unremarkable. She did have a CT scan of the abdomen and pelvis which showed pneumoperitoneum and by my interpretation felt there was some antral thickening, did not see any evidence of acute diverticulitis. ASSESSMENT: This is a 69-year-old female with perforated viscus, unknown source, highly suspicious for gastric ulcer. PLAN: At this time I discussed the patient's need for emergent surgical exploration. She has received some broad-spectrum IV antibiotics and prophylaxis and anticipate taking her to the operating room in the very near future. KASSY NAVARRETE MD MT: catrina Document: [id number] [place], [place] Name: ANNIA SNYDER HISTORY AND PHYSICAL Page 2 of 2 LCN:ER DSC: 08/06/2005 [place], [place] Name: ANNIA SNYDER MR#: : Admit Date: [id number] 1935 08/06/2005 Doctor: KASSY NAVARRETE MD HISTORY AND PHYSICAL Page 1 of 2 documented in this encounter Plan of Treatment Not on filedocumented as of this encounter Visit Diagnoses Not on filedocumented in this encounter Care Teams Electric Engine Mechanic Relationship Specialty Start Date End Date Nader Garibay MD PCP - General 01/01/02 10/16/17 documented as of this encounter
--- OUTSIDE RECORDS SUMMARY | 2022-10-07 10:52 | XMS_ITS | Encounter Summary ---
:1935 Author Organization [place] Address [address] [place] [address]. [place] [address] Care Team Providers Name Role Phone Nader Garibay MD Primary Care Provider Encounter Details Date Type Department Care Team Description 07/05/2005 Operative Report [facility] Zoe Shell, (Senior Grant Writer) Tiny Vann MD [address] [place] [address] [address] [place], [place] [id number] [place], [place] [phone] (Wo rk) Social History Tobacco Use Types Packs/Day Years Used Date Smoking Tobacco: Never Alcohol Use Standard Drinks/Week Comments Yes 0 (1 standard drink = 0.6 oz pure alcoho l) SELDOM Sex Assigned at Date Recorded Not on file documented as of this encounter Progress Notes Zoe Shell - 07/05/2005 11:59 PM CDT : 39 1st ASS'T: 2nd ASS'T: PRE-OPERATIVE DIAGNOSIS: Left sternal cyst, symptomatic. POST-OPERATIVE DIAGNOSIS: Left sternal cyst, symptomatic. PROCEDURE PERFORMED: Excision of left sternal cyst. ANESTHESIA: Local. INDICATIONS: The patient is a 69-year-old female with a tender lump on her left sternal region. This has a visible pore and a palpable subcutaneous nodule consistent with sebaceous cyst. The patient presents today for excision. DESCRIPTION OF PROCEDURE: The area is prepped and draped in the usual sterile fashion. Local anesthetic is obtained with 1% lidocaine. An elliptical incision is designed to excise the visible pore and a small rim of skin. The dissection is then widened to encompass the area beneath the skin and including the palpable cyst. Once excised, the site is closed using 4-0 subcuticular Monocryl. The cyst itself is then opened and has typical cystic debris and a smooth-walled cyst lining. The specimen is discarded and not sent for pathology. The patient is transferred home in good condition. Estimated blood loss is less than 10 cc. INTRAOPERATIVE FINDINGS: Sebaceous cyst, excised. [id number] ZOE SHELL MD MT: Document: [id number] [place], [place] Name: MR#: ANNIA CARD [id number] OPERATIVE REPORT Page 2 of 1 LCN: JOSÉ MANUEL DSC: 07/05/2005 [place], [place] Name: MR#: ANNIA CARD [id number] : Procedure Date: Account #: 1935 07/05/2005 [id number] Doctor: ZOE SHELL MD OPERATIVE REPORT Page 1 of 1 documented in this encounter Plan of Treatment Not on filedocumented as of this encounter Visit Diagnoses Not on filedocumented in this encounter Care Teams Manager Line Relationship Specialty Start Date End Date Nader Garibay MD PCP - General 01/01/02 10/16/17 documented as of this encounter
--- OUTSIDE RECORDS SUMMARY | 2022-10-07 10:52 | XMS_ITS | Encounter Summary ---
:1935 Author Organization [place] Address [address] [place] [address] Care Team Providers Name Role Phone Nader Garibay MD Primary Care Provider Encounter Details Date Type Department Care Team Description 08/06/2005 Historic Results INTERFACED REPORT Interface, Aury samayoa MD Social History Tobacco Use Types Packs/Day Years Used Date Smoking Tobacco: Never Alcohol Use Standard Drinks/Week Comments Yes 0 (1 standard drink = 0.6 oz pure alcoho l) SELDOM Sex Assigned at Date Recorded Not on file documented as of this encounter Plan of Treatment Not on filedocumented as of this encounter Procedures Procedure Name Priority Date/Time Associated Diagnosis Comme nts EKG 12 LEAD Routine 08/06/2005 2:25 PM Results f or this CDT procedure are i n the results section . documented in this encounter Results EKG 12 LEAD (08/06/2005 2:25 PM CDT) Component Value Ref Range Test Analysis Performed Pathologis t Method Time At Signature Ventricular Rate 67 BPM RADIOLOGY RESULTS Atrial Rate 67 BPM RADIOLOGY RESULTS ND Interval 152 ms RADIOLOGY RESULTS QRS Duration 86 ms RADIOLOGY RESULTS QT 404 ms RADIOLOGY RESULTS QTc 426 ms RADIOLOGY RESULTS P [place] 35 degrees RADIOLOGY RESULTS R AXIS 46 degrees RADIOLOGY RESULTS T [place] 58 degrees RADIOLOGY RESULTS Interpretation Unconfirmed report - interpr etation of this ECG is computer generated - see RADIOLOGY ECG medical record for final interpretation RESULTS Sinus rhythm Normal ECG When compared with ECG of 28-JAN-2005 12:20, No significant change was found Specimen Anatomical Collection Method Collection Time Receive d Time (Source) Location / / Volume Laterality 08/06/2005 2:25 PM 5 CDT 10:58 PM CDT Transcripton Interface MD ECG ORDERABLES Performing Organization Address City/State/ZIP Code Phon e Number RADIOLOGY RESULTS documented in this encounter Visit Diagnoses Not on filedocumented in this encounter Care Teams Steam Drier Operator Relationship Specialty Start Date End Date Nader Garibay MD PCP - General 01/01/02 10/16/17 documented as of this encounter
--- OUTSIDE RECORDS SUMMARY | 2022-10-07 10:52 | XMS_ITS | Encounter Summary ---
:1935 Author Organization [place] Address [address] [place] [address] Care Team Providers Name Role Phone Nader Garibay MD Primary Care Provider Reason for Visit Reason Comments Urgent Care Encounter Details Date Type Department Care Team Description 09/15/2005 Office Visit [facility] Dino Kim, URIN TRACT INFECTION Urgent Care Edwar HERNANDEZ NOS (Primary Dx) [address] [phone] [id number] Social History Tobacco Use Types Packs/Day Years Used Date Smoking Tobacco: Never Alcohol Use Standard Drinks/Week Comments Yes 0 (1 standard drink = 0.6 oz pure alcoho l) SELDOM Sex Assigned at Date Recorded Not on file documented as of this encounter Last Filed Vital Signs Vital Sign Reading Time Taken Comments Blood Pressure 120/50 09/15/2005 1:30 PM SENIOR WEB ANALYST Pulse 68 09/15/2005 1:30 PM SENIOR WEB ANALYST Temperature 36.7 ??C (98.1 ??F) 09/15/2005 1:30 PM SENIOR WEB ANALYST Respiratory Rate - - Oxygen Saturation - - Inhaled Oxygen Concentration - - Weight - - Height - - Body Mass Index - - documented in this encounter Progress Notes Dino Kim - 09/27/2005 9:26 AM CST SUBJECTIVE: Vielka Snyder is a 69 year old female who presents today for a possible UTI. Symptoms of dysuria, frequency and burning have been going on for 1day(s). Hematuria no. sudden onsetand moderate. Thereis no history of fever, chills, nausea or vomiting. No history of vaginal or penile discharge. This patient does not have a history of urinary tract infections. Patient denies long duration, rigors andflank pain or vaginal discharge Previous Medical History: MIXED HYPERLIPIDEMIA ESOPHAGEAL REFLUX DEPRESSIVE DISORDER NEC EDEMA LOC PRIM OSTEOART-L/LEG OTHER UNSPEC SLEEP APNEA Current outpatient prescriptions: LIPITOR OR 1 TABLET DAILY EFFEXOR XR 75 MG OR CP24 3 CAPSULE DAILY WITH FOOD EFFEXOR XR 75 MG OR CP24 3 capsules daily with food LIPITOR 10 MG OR TABS 1 tab PO QD (Once per day) FELDENE 20 MG OR CAPS 1 CAPSULE DAILY NEXIUM 40 MG OR CPDR 1 CAPSULE DAILY HYDROCHLOROTHIAZIDE 25 MG OR TABS 1 TAB PO QD (Once per day) Tobacco Use: Never Alcohol Use: Yes Comment: SELDOM ROS: Review of systems negative except as stated above. CONSTITUTIONAL:NEGATIVE for fever, chills, change in weight RESP:NEGATIVE for significant cough or SOB CV: NEGATIVE for chest pain, palpitations or peripheral edema GI: NEGATIVE for nausea, abdominal pain, heartburn, or change in bowel habits OBJECTIVE: BP 120/50 Pulse 68 Temp 98.1 LMP Postmenopausal GENERAL APPEARANCE: healthy, alert and no distress RESP: lungs clear to auscultation - no rales, rhonchi or wheezes CV: regular rates and rhythm, normal S1 S2, no murmer noted ABDOMEN: soft, nontender, no HSM or masses and bowel sounds normal BACK: No CVA tenderness SKIN: no suspicious lesions or rashes ASSESSMENT: Lower, uncomplicated urinary tract infection. PLAN: As per ordered above Drink plenty of fluids. Prevention and treatment of UTI's discussed.Signs and symptoms of pyelonephritis mentioned. Follow up with primary care physician if not improving OR WEB ANALYST documented in this encounter Nursing Notes 09/15/2005 1:30 PM CST >> ANDREA HIGH 09/20/2005 1:14 pm The following encounter information was actually performed by Jose Maria Jordan and entered later due to system downtime. Vielka Snyder presents for uti, blood in urine,scheduled for sleep study on 09-18-05. reported NKDA. Initial BP 120/50 Pulse 68 Temp 98.1 LMP Postmenopausal Estimated Body Mass Index is 35.22 kg/(m^2) as calculated from: Height of 5' 5.5 (1.664m) as of 01/23/05 Weight of 215 lbs (97.523 kg) as of 05/29/05. documented in this encounter Plan of Treatment Not on filedocumented as of this encounter Procedures Procedure Name Priority Date/Time Associated Comments Diagnosis HCL CULTURE, URINE Routine 09/17/2005 5:25 PM Urin Tract Res ults for this (MISYS) SENIOR WEB ANALYST Infection Nos procedure are in the results section. HCL URINALYSIS WITH Routine 09/17/2005 5:25 PM Urin Tract Re sults for this MICROSCOPIC SENIOR WEB ANALYST Infection Nos procedure are in the results section. HCL CULTURE, URINE Routine 09/16/2005 4:49 PM Urin Tract Res ults for this (MISYS) SENIOR WEB ANALYST Infection Nos procedure are in the results section. documented in this encounter Results CULTURE, URINE (MISYS) (09/17/2005 5:25 PM SENIOR WEB ANALYST) [facility] gist Method Time Signature Specimen Midstream Urine [facility] LAB Culture Micro >100,000 [place] colonies/mL [facility] LAB coli Report status FINAL [id number] [facility] Specimen Anatomical Collection Method Collection Time Receive d Time (Source) Location / / Volume Laterality 09/17/2005 5:25 PM 5 5:30 SENIOR WEB ANALYST PM SENIOR WEB ANALYST Organism Antibiotic Method Susceptibility >100,000 colonies/ml Amoxicillin/Clav 4 Suscepti ble escherichia coli (myles) >100,000 colonies/ml Ampicillin >=32 Resist ant escherichia coli (myles) >100,000 colonies/ml Cefazolin <=4 Suscept ible escherichia coli (myles) >100,000 colonies/ml Ceftriaxone <=1 Suscept ible escherichia coli (myles) >100,000 colonies/ml Ciprofloxacin <=0.25 Susc eptible escherichia coli (myles) >100,000 colonies/ml Gentamicin <=1 Suscept ible escherichia coli (myles) >100,000 colonies/ml Levofloxacin <=0.25 Susc eptible escherichia coli (myles) >100,000 colonies/ml Nitrofurantoin <=16 Suscep tible escherichia coli (myles) >100,000 colonies/ml Ticarcillin >=128 Resis tant escherichia coli (myles) >100,000 colonies/ml Ticarcillin/Clav 16 Suscept ible escherichia coli (myles) >100,000 colonies/ml Tobramycin <=1 Suscept ible escherichia coli (myles) >100,000 colonies/ml Trimethoprim/Sulfamethoxazole <=1/19 Susceptible escherichia coli (myles) [facility] Provider LABORATORY Performing Organization Address City/State/ZIP Code Phon e Number [facility] [address] [place] [address] HOSPITAL [facility] (ABNORMAL) UA WITH MICRO (09/17/2005 5:25 PM SENIOR WEB ANALYST) [facility] Method Time Signature Color Urine Yellow [facility] Appearance Urine Clear [facility] Glucose Urine Negative NEG mg/dL [facility] Bilirubin Urine Negative NEG [facility] Ketones Urine Trace (A) NEG mg/dL [facility] Specific Balm 1.025 1.003 - [place] Urine 1.035 [facility] pH Urine 6.0 5.0 - 7.0 [place] pH [facility] Protein Albumin Trace (A) NEG mg/dL [place] Urine [facility] Urobilinogen 0.2 0.2 - 1.0 [place] Urine EU/dL [facility] Nitrite Urine Positive (A) NEG [facility] Blood Urine Large (A) NEG [facility] Leukocyte Moderate (A) NEG [place] Esterase Urine [facility] Source Midstream [place] Urine [facility] WBC Urine >100 (A) 0 - 2 [place] /[facility] RBC Urine 10-25 (A) 0 - 2 [place] [facility] Squamous EPI Few FEW /LPF [facility] Bacteria Urine Many (A) NEG /HPF [facility] Specimen Anatomical Collection Method Collection Time Receive d Time (Source) Location / / Volume Laterality 09/17/2005 5:25 PM 5 5:30 SENIOR WEB ANALYST PM SENIOR WEB ANALYST [facility] Sun HERNANDEZ LABORATORY Performing Organization Address City/[facility]/ZIP Code Phon e Number [facility] [address], [place] [address] [facility] CULTURE, URINE (MISYS) (09/16/2005 4:49 PM SENIOR WEB ANALYST) [facility] Method Time Signature Specimen Midstream [place] Description Urine [facility] Culture Micro Test canceled [place] - Lab order [facility] entry error CLINIC LAB Charge credited Report status FINAL [place] [id number] [facility] Specimen Anatomical Collection Method Collection Time Receive d Time (Source) Location / / Volume Laterality 09/16/2005 4:49 PM 5:27 SENIOR WEB ANALYST PM SENIOR WEB ANALYST Dino Kim MD LABORATORY Performing Organization Address City/State/ZIP Code Phon e Number [facility] [address] [place] [address] [facility] documented in this encounter Visit Diagnoses Diagnosis Urinary tract infection, site not specif ied - Primary documented in this encounter Care Teams Director Reactor Projects Relationship Specialty Start Date End Date Nader Garibay MD PCP - General 01/01/02 10/16/17 documented as of this encounter
--- OUTSIDE RECORDS SUMMARY | 2022-10-07 10:52 | XMS_ITS | Encounter Summary ---
:1935 Author Organization [place] Address [address] [place] [address]. [place] [address] Care Team Providers Name Role Phone Nader Garibay MD Primary Care Provider Reason for Visit Reason Onset Date Comments Refill Request 10/16/2005 Encounter Details Date Type Department Care Team Description 10/16/2005 Refill [facility] Jennifer Mason Refill Request [place] [phone] Social History Tobacco Use Types Packs/Day Years Used Date Smoking Tobacco: Never Alcohol Use Standard Drinks/Week Comments Yes 0 (1 standard drink = 0.6 oz pure alcoho l) SELDOM Sex Assigned at Date Recorded Not on file documented as of this encounter Miscellaneous Notes Telephone Encounter - Scarlett Dhaliwal - 10/17/2005 8:39 AM CST patient advised Rx sent SCARLETT DHALIWAL [facility] Telephone Encounter - Nader Garibay - 10/16/2005 3:24 PM CST Script filled, at [facility]. [facility] Telephone Encounter - oCurt Armenta - 10/16/2005 2:22 PM CST pt needs rx for mail in order. please call pt when ready. pt hasn't seen you yet, was referred to you by dr mason, is making an appointment for November. [facility] documented in this encounter Plan of Treatment Not on filedocumented as of this encounter Visit Diagnoses Diagnosis Esophageal reflux - Primary documented in this encounter Care Teams Nutritionist Public Health Relationship Specialty Start Date End Date Nader Garibay MD PCP - General 01/01/02 10/16/17 documented as of this encounter
--- OUTSIDE RECORDS SUMMARY | 2022-10-07 10:52 | XMS_ITS | Encounter Summary ---
:1935 Author Organization [facility] Address [address] [place] [address]. [place] [address] Care Team Providers Name Role Phone Nader Garibay MD Primary Care Provider Encounter Details Date Type Department Care Team Description 08/06/2005 Emergency room Camron Escobar MD [place] [facility] [address] [address] (Wo rk) Social History Tobacco Use Types Packs/Day Years Used Date Smoking Tobacco: Never Alcohol Use Standard Drinks/Week Comments Yes 0 (1 standard drink = 0.6 oz pure alcoho l) SELDOM Sex Assigned at Date Recorded Not on file documented as of this encounter Progress Notes Kassy Escobar R - 08/06/2005 11:59 PM CDT CHIEF COMPLAINT: Abdominal pain. MODE OF ARRIVAL: Ambulatory. HISTORY OF PRESENT ILLNESS: Annia Snyder is a 69-year-old female who presents with two and a half week history of abdominal pain. She thinks it started somewhat acutely two and a half weeks ago, but can not tell me exactly the onset course. The patient has had constant diffuse abdominal pain for the last two and a half weeks, diffuse in nature, without radiation. She describes it as sharp at time, worse with movement, worse with eating. No fevers, normal bowel movements. She has never had any symptoms like this in the past. She describes it as a fullness and pain. Severe in nature. The patient called the RN line last night, and they told her to call her primary physician. The primary physician could not make an appointment, and therefore the patient was referred here to the emergency department by her primary clinic. PAST MEDICAL HISTORY: 1. Gastric ulcers. 2. Potentially underlying rheumatologic condition, although she denies rheumatoid arthritis or rheumatism. 3. Depression. 4. Hyperlipidemia. 5. Osteoarthritis. MEDICATIONS: Effexor, Nexium, Lipitor, Mirapex, hydrochlorothiazide. ALLERGIES: The patient reports large doses of ibuprofen causes hives, and tetracycline caused a yeast infection. SOCIAL HISTORY: No smoking, no drugs, no alcohol. PRIMARY PHYSICIAN: Dr. Garibay et al. REVIEW OF SYSTEMS: General - negative for fever or chills. Unknown for weight change. HEENT - negative for headache, blurred vision. Cardiovascular - negative for chest pain, chest heaviness. Respiratory - negative for cough or sputum production. Gastrointestinal - as per history of present illness. Genitourinary - negative for urinary symptoms. Musculoskeletal - negative for joint pains, joint aches of acute nature. Immunologic - negative for frequent infections, negative for use of steroids. Hematopoietic - negative for bleeding diathesis, bleeding disorders. Neurologic - negative for numbness, tingling weakness in extremities. All other 10 systems are negative. PHYSICAL EXAMINATION: GENERAL: 69-year-old female, awake, alert. She is lying supine, appears somewhat uncomfortable, but is refusing pain medications. VITAL SIGNS: Temperature 98.5, blood pressure 128/73, pulse 68, respirations 16, pulse oximetry 96-97% on room air. HEENT: Head normal inspection. Pupils are equal. Mouth - mucous membranes are moist. NECK: Supple, good range of motion. HEART: Regular without murmur, normal S1, S2. LUNGS: Equal breath sounds bilaterally, normal respiratory pattern. ABDOMEN: Obese, soft. She does have mild diffuse peritoneal signs. Bowel sounds are still present. RECTAL: Deferred. SKIN: No rash or petechiae. PSYCHIATRIC: Talkative, pleasant, asks appropriate questions. VASCULAR: Symmetric pulses in the feet. MUSCULOSKELETAL: Back shows no flank or CVA tenderness. EXTREMITIES: All four extremities are examined, there are no signs of joint swelling or joint warmth.. LABORATORY & DIAGNOSTIC DATA: White blood count 13.1 with a left shift. Comprehensive metabolic panel is normal, except for a CO2 of 33. Lipase is normal. Urinalysis shows trace of protein, otherwise normal. CAT scan, abdomen and pelvis, reported by Dr. Xander Young, also reviewed by myself on the image system, shows evidence of pneumoperitoneum, diverticulosis, no other abnormalities. EMERGENCY DEPARTMENT COURSE/INTERVENTIONS: The patient received IV fluids at 1 liter normal saline bolus, 4 mg of Zofran for pain control. She underwent the above workup. She was placed on continuous pulse oximetry monitoring, obtaining single-lead EKG monitoring. The patient was offered pain medication, she refused. I discussed with the patient her findings, obtained surgical consultation for consideration of laparotomy versus antibiotic treatment secondary the patient a small amount of pneumoperitoneum, and also spoke to admitting physician cardiology consultant for bernardo Loco for primary admission. The patient will be admitted to a surgical bed, is currently awaiting Dr. Kassy Navarrete's bedside evaluation for pneumoperitoneum and peritonitis. Differential includes diverticulosis with perforation and alternatively a gastric ulcer with perforation. At this time, the patient is hemodynamically stable in the emergency department, but does need admission for pain control, IV antibiotics and surgical exploration. Prior to being admitted, the patient did receive Invanz 1 gm intravenously and [address] Navarrete is agreeable with this initial treatment option. ADMISSION IMPRESSION: Pneumoperitoneum with diverticulosis, history of gastric ulcers. KASSY ESCOBAR MD [place]: an Document: [id number] [place], [place] Name: JOSETRENTANNIA EMERGENCY ROOM ENCOUNTER Page 3 of 3 LCN: ER DSC: 08/06/2005 [place], [place] Name: ANASTASIA SNYDERENE Jocelyn MR#: : Admit Date: [id number] 1935 08/06/2005 Doctor: KASSY ESCOBAR MD EMERGENCY ROOM ENCOUNTER Page 1 of 3 documented in this encounter Plan of Treatment Not on filedocumented as of this encounter Visit Diagnoses Not on filedocumented in this encounter Care Teams Etl Lead Relationship Specialty Start Date End Date Nader Garibay MD PCP - General 01/01/02 10/16/17 documented as of this encounter
--- OUTSIDE RECORDS SUMMARY | 2022-10-07 10:52 | XMS_ITS | Encounter Summary ---
:1935 Author Organization [facility] Address [address] [place] [address]. [place] [address] Care Team Providers Name Role Phone Nader Garibay MD Primary Care Provider Reason for Visit Reason Comments UTI Encounter Details Date Type Department Care Team Description 04/04/2006 Office Visit [facility] Nader Garibay [facility] T INFECTION Clinic Lydia MD Bro NOS (Primary Dx) [facility] [address] [place] [phone] Social History Tobacco Use Types Packs/Day Years Used Date Smoking Tobacco: Never Alcohol Use Standard Drinks/Week Comments Yes 0 (1 standard drink = 0.6 oz pure alcoho l) SELDOM Sex Assigned at Date Recorded Not on file documented as of this encounter Last Filed Vital Signs Vital Sign Reading Time Taken Comments Blood Pressure 132/70 04/04/2006 2:15 PM CDT Pulse 80 04/04/2006 2:15 PM CDT Temperature - - Respiratory Rate - - Oxygen Saturation - - Inhaled Oxygen Concentration - - Weight 103.9 kg (229 lb) 04/04/2006 2:15 PM CDT Height - - Body Mass Index 37.53 01/08/2006 1:45 PM UNIT SUPERVISOR documented in this encounter Progress Notes Nader Garibay - 04/04/2006 2:42 PM CDT Vielka Snyder is a 70 year old female who comes in today with complaints of urinary problems. The symptoms began 4 days ago. Patient's history of UTI rare Additional risk factures include age Patient's symptoms include dysuria, frequency and incontinence Treatments tried: None ROS: C: NEGATIVE for fever, chills, change in weight I: NEGATIVE for worrisome rashes, moles or lesions E/M: NEGATIVE for ear, mouth and throat problems R: NEGATIVE for significant cough or SOB CV: NEGATIVE for chest pain, palpitations or peripheral edema GI: NEGATIVE for nausea, abdominal pain, heartburn, or change in bowel habits female: as above OBJECTIVE: EXAM: BP 132/70 Pulse 80 Wt 229 lbs (103.9kg) LMP Postmenopausal GENERAL APPEARANCE: healthy, alert and no distress RESP: lungs clear to auscultation - no rales, rhonchi or wheezes CV: regular rates and rhythm, normal S1 S2, no S3 or S4 and no murmur, click or rub - ABDOMEN: Soft with mild suprapubic tenderness, no guarding. No CVA tenderness. Urine Dipstick shows: positive for leukocytes Micro urine shows: 2-5 WBC's per HPF and moderate bacteria PLAN: 599.0 URIN TRACT INFECTION NOS (primary encounter diagnosis) Note: 3-day course of Bactrim. Call if not improved. Plan: UA MICRO IF POSITIVE, MICRO EXAM-URINE, BACTRIM DS 800-160 MG OR TABS Nader Garibay MD documented in this encounter Nursing Notes 04/04/2006 2:15 PM CDT >> SANA DHALIWAL 04/04/2006 2:18 pm Vielka Snyder presents C/O urinary urgency and burning present over the past 4 days. Initial BP 132/70 Pulse 80 Wt 229 lbs (103.9kg) LMP Postmenopausal Estimated [...] Comme nts HCL UA MICRO IF Routine 04/04/2006 2:11 PM Urin Tract Infectio n Results for this POSITIVE CDT Nos procedure are i n the results section. CL AFF MICRO Routine 04/04/2006 2:11 PM Urin Tract Infection R esults for this EXAM-URINE CDT Nos procedure are i n the results section. documented in this encounter Results (ABNORMAL) MICRO EXAM-URINE (04/04/2006 2:11 PM CDT) [facility] Method Time Signature WBC Urine 2-5 (A) 0 - 2 [place] /HPF [facility] RBC Urine O - 2 0 - 2 [place] /HPF [facility] Squamous EPI Many (A) FEW /LPF [facility] Bacteria Urine Moderate (A) NEG /HPF [facility] Mucous Urine Present (A) NEG /LPF [facility] Specimen Anatomical Collection Method Collection Time Receive d Time (Source) Location / / Volume Laterality 04/04/2006 2:11 PM 6 2:16 CDT PM CDT Nader Garibay MD LABORATORY Performing Organization Address City/State/ZIP Code Phon e Number [facility] [address] [place] [address] [facility] (ABNORMAL) UA MICRO IF POSITIVE (04/04/2006 2:11 PM CDT) [facility] Method Time Signature Color Urine Yellow [facility] Appearance Urine Clear [facility] Glucose Urine Negative NEG mg/dL [facility] Bilirubin Urine Negative NEG [facility] Ketones Urine Negative NEG mg/dL [facility] Specific [place] 1.020 1.003 - [place] Urine 1.035 [facility] Blood Urine Negative NEG [facility] pH Urine 6.0 5.0 - 7.0 [place] pH [facility] Protein Albumin Negative NEG mg/dL [place] Urine [facility] Urobilinogen 0.2 0.2 - 1.0 [place] Urine EU/dL [facility] Nitrite Urine Negative NEG [facility] Leukocyte Trace (A) NEG [place] Esterase Urine [facility] Source Midstream [place] Urine [facility] Specimen Anatomical Collection Method Collection Time Receive d Time (Source) Location / / Volume Laterality 04/04/2006 2:11 PM 6 2:16 CDT PM CDT Nader Garibay MD LABORATORY Performing Organization Address City/State/ZIP Code Phon e Number [facility] [address] [place] [address] [facility] documented in this encounter Visit Diagnoses Diagnosis Urinary tract infection, site not specif ied - Primary documented in this encounter Care Teams Conduit Bender Relationship Specialty Start Date End Date Nader Garibay MD PCP - General 01/01/02 10/16/17 documented as of this encounter
--- OUTSIDE RECORDS SUMMARY | 2022-10-07 10:52 | XMS_ITS | Encounter Summary ---
:1935 Author Organization [facility] Address [address] [place] [address]. [place] [address] Care Team Providers Name Role Phone Nader Garibay MD Primary Care Provider Encounter Details Date Type Department Care Team Description 07/04/2005 Orders Only [facility] [place], DIAGNOSIS NOT YET Clinic [place] Isaac LAMB ( Primary Dx) [place] [phone] Social History Tobacco Use Types Packs/Day Years Used Date Smoking Tobacco: Never Alcohol Use Standard Drinks/Week Comments Yes 0 (1 standard drink = 0.6 oz pure alcoho l) SELDOM Sex Assigned at Date Recorded Not on file documented as of this encounter Plan of Treatment Not on filedocumented as of this encounter Procedures Procedure Name Priority Date/Time Associated Diagnosis Comme nts C DEXA, BONE DENSITY, AXIAL Routine 06/27/2005 DIAGNOSIS NOT YET DEFINED SKEL documented in this encounter Results DEXA, BONE DENSITY, AXIAL SKEL (06/27/2005) Anatomical Region Laterality Modality Other Specimen (Source) Anatomical Location Collection Method / Collectio n Time Received Time / Laterality Volume 06/27/2005 Narrative This result has an attachment that is no t available. Isaac Mason [employer] documented in this encounter Visit Diagnoses Diagnosis DIAGNOSIS NOT YET DEFINED - Primary documented in this encounter Care Teams Candy Attendant Relationship Specialty Start Date End Date Nader Garibay MD PCP - General 01/01/02 10/16/17 documented as of this encounter
--- OUTSIDE RECORDS SUMMARY | 2022-10-07 10:52 | XMS_ITS | Encounter Summary ---
:1935 Author Organization [facility] Address [address] [place] [address] Care Team Providers Name Role Phone Nader Garibay MD Primary Care Provider Reason for Visit Reason Comments Radiology Visit Encounter Details Date Type Department Care Team Description 01/08/2006 Orders Only [facility] SCR EENING MAL NEOP-BREAST [place] NOS (Primary Dx) [address] [phone] Social History Tobacco Use [...] Priority Date/Time Associated Diagnosis Comme nts C MAMMOGRAM, SCREENING Routine 01/08/2006 Screening Mal Resu lts for this Neop-Breast Nos procedure ar e in the results section . documented in this encounter Results MAMMOGRAM, SCREENING (01/08/2006) P athologist Signature MAMMOGRAM Anatomical Region Laterality Modality Mammography Impressions 01/08/2006 RADIOLOGIST'S INTERPRETATION: Breast parenchyma: ??fatty/mild densitie s IMAGING IMPRESSION: (CATEGORY-1) NEGATIVE This study was evaluated with the assist ance of Computer-Aided Detection. Radiologist: Erin Buenrostro ? JAN 13 2006 Electronically filed by Zoraida Trent ??01/14/2006 ??12:05 PM Nader Garibay MD SPECIAL IMAGING STUDIES documented in this encounter Visit Diagnoses Diagnosis Breast screening, unspecified - Primary documented in this encounter Care Teams Floor Tech Relationship Specialty Start Date End Date Nader Garibay MD PCP - General 01/01/02 10/16/17 documented as of this encounter
--- OUTSIDE RECORDS SUMMARY | 2022-10-07 10:52 | XMS_ITS | Encounter Summary ---
:1935 Author Organization [place] Address [address] [place] [address]. [place] [address] Care Team Providers Name Role Phone Donte Skinner MD Primary Care Provider Reason for Visit Reason Comments Establish Care Encounter Details Date Type Department Care Team Description 12/25/2005 Office Visit [facility] Donte Skinner MIXED HYP ERLIPIDEMIA (Primary Dx); Clinic Tiny Crabtree MD OTHER ABNORMAL GLUCOSE; [place] 600 [facility] SCREENING MAL NEOP-BREAST NO S; [address] [place] [address] [phone] Social History Tobacco Use Types Packs/Day Years Used Date Smoking Tobacco: Never Alcohol Use Standard Drinks/Week Comments Yes 0 (1 standard drink = 0.6 oz pure alcoho l) SELDOM Sex Assigned at Date Recorded Not on file documented as of this encounter Last Filed Vital Signs Vital Sign Reading Time Taken Comments Blood Pressure 132/60 12/25/2005 9:15 AM ENGINE ROOM OPERATOR Pulse 76 12/25/2005 9:15 AM ENGINE ROOM OPERATOR Temperature - - Respiratory Rate - - Oxygen Saturation - - Inhaled Oxygen Concentration - - Weight 99.3 kg (219 lb) 12/25/2005 9:15 AM ENGINE ROOM OPERATOR Height 166.4 cm (5' 5.5) 12/25/2005 9:15 AM ENGINE ROOM OPERATOR Body Mass Index 35.89 12/25/2005 9:15 AM ENGINE ROOM OPERATOR documented in this encounter Progress Notes Donte Skinner - 12/25/2005 12:15 PM CST HPI: Vielka Snyder is a 70 year old female who presents for formal transfer of care from Dr. Mason. History reviewed with patient. History notable recently for perforated diverticula, for which she underwent partial sigmoid resection last Oct. Has recovered nicely from procedure, no abdominal pain, stools normal, eating well. Patient in past has been told that she has 'borderline diabetes,' and had even been instructed to start checking BGs at home. Has had fasting sugar of 110 in past, but last A1C in 2002 was under 6. Hashad no lab data for last 1.5-2 years. Also due for re-check of her cholesterol - she takes Lipitor, which she tolerates well. Patient would like to establishe with ice skating coach for annual exams, she is due for mammogram. Patient has [place], for which she is on CPAP at home. A recent change in mask-type has greatly improvedher compliance with this, and her daily energy level is much improved. Patient has history of anxiety/depression, for which she takes Effexor. 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] EDEMA[782.3] DEPRESSIVE DISORDER NEC[311] ESOPHAGEAL REFLUX[530.81] MIXED HYPERLIPIDEMIA[272.2] OTHER UNSPEC SLEEP APNEA[780.57] OBESITY NOS[278.00] RESTLESS LEG SYNDROME[333.99] Current outpatient prescriptions: MIRAPEX 0.5 MG OR TABS 2 tabs Qhs VOLTAREN 75 MG OR TBEC 1 TABLET TWICE DAILY NEXIUM 40 MG OR CPDR 1 CAPSULE DAILY EFFEXOR XR 75 MG OR CP24 3 capsules daily with food LIPITOR 10 MG OR TABS 1 tab PO QD (Once per day) FELDENE 20 MG OR CAPS 1 CAPSULE DAILY HYDROCHLOROTHIAZIDE 25 MG OR TABS 1 TAB PO QD (Once per day) Previous Medical History: MIXED HYPERLIPIDEMIA ESOPHAGEAL REFLUX DEPRESSIVE DISORDER NEC EDEMA LOC PRIM OSTEOART-L/LEG OTHER UNSPEC SLEEP APNEA RESTLESS LEG SYNDROME Review of patient's past surgical history indicates: DELIVERY ONLY Comment: , Low Cervical,X2 DILATION/CURETTAGE,DIAGNOSTIC Comment: X3 IN HER 50s APPENDECTOMY 1950 SURGICAL HISTORY OF - 2004 Comment: Partial sigmoid resection secondary to ruptured diverticulum. Family History: Stroke Mother Comment: D ; AGE 88 Cancer Father Comment: D ; AGE 59 LUNG CANCER Cancer Sister Comment: KIDNEY Gynecology Sister Comment: ENDOMETRIOSIS Family History Negative Sister Cancer Paternal Grandmother Comment: OVARIAN Heart Paternal Grandfather Comment: OR Depression Son Social History Marital Status: Spouse Name: N/A Years of Education: N/A Number of Children: 2 Occupational History RETIRED Social History Main Topics Tobacco Use: Never Alcohol Use: Yes Comment: SELDOM Drug Use: No Sexually Active: Not Currently Other Topics Concern Social History Narrative None on file ROS: C: NEGATIVE for fever, [...] for temperature intolerance, skin/hair changes EXAM: BP 132/60 Pulse 76 Ht 5' 5.5 (1.66m) Wt 219 lbs (99.3kg) LMP Postmenopausal GENERAL APPEARANCE: healthy, alert and [...] bowel sounds normal Assessment: 272.2 MIXED HYPERLIPIDEMIA (primary encounter diagnosis) Note: Due for re-check, with LFTs. Plan: A.M.A. COMPREHENSIVE MET.PANEL, A.M.A. LIPID PANEL 790.29 OTHER ABNORMAL GLUCOSE Note: Will recheck fasting glucose, and A1C today. Plan: A.M.A. COMPREHENSIVE MET.PANEL, HEMOGLOBIN A1C V76.10 SCREENING MAL NEOP-BREAST NOS Note: Plan: MAMMOGRAM, SCREENING 780.57 OTHER UNSPEC SLEEP APNEA Note: Plan: Donte Skinner MD NE ROOM OPERATOR Donte Skinner - 12/25/2005 9:15 AM ENGINE ROOM OPERATOR Addended by: DONTE SKINNER on: 12/26/2005 3:57:18 PM Modules accepted: Orders NE ROOM OPERATOR documented in this encounter Nursing Notes 12/25/2005 9:15 AM CST >> SANA DHALIWAL 12/25/2005 9:10 am Vielka Banks Igorkyle presents for here to establish care with new PMD. Also has questions Re: blood sugar Initial BP 132/60 Pulse 76 Ht 5' 5.5 (1.66m) Wt 219 lbs (99.3kg) LMP Postmenopausal Body Mass Index is 35.88 kg/(m^2).. BP completed using cuff size: large SANA DHALIWAL MA documented in this encounter Plan of Treatment Not on filedocumented as of this encounter Procedures Procedure Name Priority Date/Time Associated Diagnosis Comme nts HCL COMPREHENSIVE Routine 12/25/2005 10:13 Other Abnorma l Glucose Results for this METABOLIC PANEL AM ENGINE ROOM OPERATOR Mixed Hyperlipidemia proc edure are in the results section. HCL GLYCATED Routine 12/25/2005 10:13 Other Abnormal Glucose R esults for this HEMOGLOBIN AM ENGINE ROOM OPERATOR procedure are i n the results section. CL AFF A.M.A. LIPID Routine 12/25/2005 10:13 Mixed Hyperlipide kashif Results for this PANEL AM ENGINE ROOM OPERATOR procedure are i n the results section. documented in this encounter Results (ABNORMAL) A.M.A. LIPID PANEL (12/25/2005 10:13 AM ENGINE ROOM OPERATOR) P athologist Signature Cholesterol 190 0 - 200 [facility] mg/dL [facility] Comment: LDL Cholesterol is the primary guide to therapy: LDL-cholesterol goal in high risk patients is <100 mg/dL and in very high risk patients is <70 mg/dL. The NCEP recommends further evaluation of: patients with cholesterol <200 mg/dL if additional risk factors are present, cholesterol >240 mg/dL, triglycerides >150 mg/dL, or HDL <40 mg/dL. Triglycerides 91 0 - 150 mg/dL [place] [facility] HDL Cholesterol 49 (L) 50 - 110 mg/dL [facility] LDL Cholesterol Calculated 123 0 - 129 mg/dL [facility] Comment: LDL Cholesterol is the primary guide to therapy: LDL-cholesterol goal in high risk patients is <100 mg/dL and in very high risk patients is <70 mg/dL. VLDL-Cholesterol 18 0 - 30 mg/dL [place] [facility] Cholesterol/HDL Ratio 3.9 0.0 - 5.0 [facility] Specimen Anatomical Collection Method Collection Time Receive d Time (Source) Location / / Volume Laterality 12/25/2005 10:13 12/25/2005 AM ENGINE ROOM OPERATOR 10:18 AM ENGINE ROOM OPERATOR Donte Skinner MD LABORATORY Performing Organization Address City/State/ZIP Code Phon e Number [facility] [address] [place] [id number] [facility] HEMOGLOBIN A1C (12/25/2005 10:13 AM ENGINE ROOM OPERATOR) P athologist Signature Hemoglobin A1C 5.8 4.3 - 6.0 [place] % [facility] Specimen Anatomical Collection Method Collection Time Receive d Time (Source) Location / / Volume Laterality 12/25/2005 10:13 12/25/2005 AM ENGINE ROOM OPERATOR 10:18 AM ENGINE ROOM OPERATOR Narrative This result has an attachment that is no t available. Donte Skinner MD LABORATORY Performing Organization Address City/[facility]/ZIP Code Phon e Number [facility] [address] [place] [address] [facility] (ABNORMAL) A.M.A. COMPREHENSIVE MET.PANEL (12/25/2005 10:13 AM ENGINE ROOM OPERATOR) P athologist Signature Sodium 138 133 - 144 [place] mmol/L [facility] Potassium 3.9 3.4 - 5.3 [place] mmol/L [facility] Chloride 99 94 - 109 [facility] mmol/L [facility] Carbon Dioxide 33 (H) 20 - 32 [facility] mmol/L [facility] Anion Gap 5 (L) 6 - 17 [facility] mmol/L [facility] Glucose 95 60 - 110 [place] mg/dL [facility] Urea Nitrogen 29 7 - 30 [place] mg/dL [facility] Creatinine 1.20 0.60 - [facility] 1.30 mg/dL [facility] GFR Estimate 47 (L) >60 [place] mL/min/1.7 [facility] m2 LAB GFR Estimate If 57 (L) >60 [place] Black mL/min/1.7 [facility] m[facility] LAB Calcium 9.6 8.5 - 10.4 [place] mg/dL [facility] Bilirubin Total 0.5 0.2 - 1.3 [place] mg/dL [facility] Albumin 4.2 3.2 - 4.5 [place] g/dL [facility] Protein Total 7.5 6.0 - 8.2 [place] g/dL [facility] Alkaline 68 40 - 150 [place] Phosphatase U/L [facility] ALT 28 0 - 50 U/L [facility] AST 34 0 - 45 U/L [facility] Specimen Anatomical Collection Method Collection Time Receive d Time (Source) Location / / Volume Laterality 12/25/2005 10:13 12/25/2005 AM ENGINE ROOM OPERATOR 10:18 AM ENGINE ROOM OPERATOR Donte Skinner MD LABORATORY Performing Organization Address City/State/ZIP Code Phon e Number [facility] [address], [place] [address] [facility] documented in this encounter Visit Diagnoses Diagnosis Mixed hyperlipidemia - Primary Other abnormal glucose Breast screening, unspecified Unspecified sleep apnea documented in this encounter Care Teams Youth Liaison Officer Relationship Specialty Start Date End Date Donte Skinner MD PCP - General 01/01/02 10/16/17 documented as of this encounter
--- OUTSIDE RECORDS SUMMARY | 2022-10-07 10:52 | XMS_ITS | Encounter Summary ---
:1935 Author Organization [facility] Address [address] [place] [address] Care Team Providers Name Role Phone Nader Garibay MD Primary Care Provider Reason for Visit Reason Onset Date Comments Refill Request 06/16/2006 Encounter Details Date Type Department Care Team Description 06/16/2006 Refill [facility] Nader Garibay MD Refill Request [address] [address] [place] [phone] Social History Tobacco Use Types Packs/Day Years Used Date Smoking Tobacco: Never Alcohol Use Standard Drinks/Week Comments Yes 0 (1 standard drink = 0.6 oz pure alcoho l) SELDOM Sex Assigned at Date Recorded Not on file documented as of this encounter Miscellaneous Notes Telephone Encounter - Herminia Mariscal - 06/17/2006 10:21 AM CDT Filled per standing order. Herminia Mariscal RN documented in this encounter Plan of Treatment Not on filedocumented as of this encounter Visit Diagnoses Diagnosis Essential hypertension, benign Edema documented in this encounter Care Teams Club Waiter/Waitress Relationship Specialty Start Date End Date Nader Garibay MD PCP - General 01/01/02 10/16/17 documented as of this encounter
--- OUTSIDE RECORDS SUMMARY | 2022-10-07 10:53 | XMS_ITS | Encounter Summary ---
:1935 Author Organization [place] Address [address] [place] [address]. [place] [address] Care Team Providers Name Role Phone Nader Garibay MD Primary Care Provider Reason for Referral - Closed Specialty Diagnoses / Procedures Referred By Contact Refer red To Contact Diagnoses Sprain and strain of other specified sites of shoulder and upper arm [address] [phone] Referral ID Status Reason Start Date Expiration Date Visits Requ ested Visits Authorized [id number] Closed 08/13/2004 11/16/2011 1 1 Encounter Details Date Type Department Care Team Description 08/13/2004 Telephone [facility] Jennifer Mason lp J [address] [phone] Social History Tobacco Use Types Packs/Day Years Used Date Smoking Tobacco: Never Alcohol Use Standard Drinks/Week Comments Yes 0 (1 standard drink = 0.6 oz pure alcoho l) SELDOM Sex Assigned at Date Recorded Not on file documented as of this encounter Miscellaneous Notes Telephone Encounter - 08/13/2004 10:18 AM CDT >> TIKI MASON Mon Aug 13, 2004 1:12 PM patient called and pt is comfortable lying down with current rx. Cancel stress test for now, try pt, ortho referral doen re this. >> TIKI MASON Mon Aug 13, 2004 12:12 PM Pain localized to area at inferior shoulder blade. >> ARMIDA SANTILLAN Mon Aug 13, 2004 10:31 AM Vielka Snyder is a 68 year old female who calls with mid Back Pain The pain began 12 days ago. The pain is rated a 10. Patient's prior history of back pain is no prior back problems and recurrent self limited episodes o f low back pain in the past The pain is described as dull constant is located middle of back . Pain radiates right shoulder into right arm to elbow, very sharp, #10. Symptoms associated with the backpain;difficulty moving arm or even lifting a glass of water. Pain is aggrevated by any movement of pt's arm, and releived by rest, lying flat on back. Patient also has tried prescription medication: tylenol with codeine, flexeril--which makes patient groggy. Plan review by MD/AP Patient has stress test scheduled at [facility] in [place] at 11:15 on 08/14. Pt states she doesn't think she can do the stress test or go to Physical therapy on 08/15 and 08/17. Pt wants to rescheduled st ress test jarrod, since will have to pay if not cancelled before tomorrow. Patient agrees with this plan. Patient to call back if symptoms do not improve, symptoms worsen, or with further questions or justin rns documented in this encounter Plan of Treatment Not on filedocumented as of this encounter Procedures Procedure Name Priority Date/Time Associated Diagnosis Comme nts ZZ CONSULT ORTHOPEDIC GENERAL Routine 02/22/2005 Sprain S houlder/Arm Nec documented in this encounter Results CONSULT ORTHOPEDIC GENERAL (02/22/2005) Narrative This result has an attachment that is no t available. Tiki Mason REFERRAL documented in this encounter Visit Diagnoses Diagnosis Sprain and strain of other specified sit es of shoulder and upper arm - Primary documented in this encounter Care Teams Culinary Artist Relationship Specialty Start Date End Date Nader Garibay MD PCP - General 01/01/02 10/16/17 documented as of this encounter
--- OUTSIDE RECORDS SUMMARY | 2022-10-07 10:53 | XMS_ITS | Encounter Summary ---
:1935 Author Organization [place] Address [address] [place] [id number] Care Team Providers Name Role Phone Nader Garibay MD Primary Care Provider Reason for Visit Reason Onset Date Comments Results 01/23/2005 LAB Encounter Details Date Type Department Care Team Description 01/23/2005 Telephone [facility] Jennifer Mason J Results (LAB) [address] [phone] Social History Tobacco Use Types Packs/Day Years Used Date Smoking Tobacco: Never Alcohol Use Standard Drinks/Week Comments Yes 0 (1 standard drink = 0.6 oz pure alcoho l) SELDOM Sex Assigned at Date Recorded Not on file documented as of this encounter Miscellaneous Notes Telephone Encounter - Sabrina Lee - 01/24/2005 4:[address] Mason approve RX and close encounter. NGUAL TEACHER Telephone Encounter - Isaac Mason - 01/24/2005 4:11 PM CST done NGUAL TEACHER Telephone Encounter - Maria Antonia Vanegas - 01/24/2005 9:56 AM CST Script for k-dur called into [facility]. Maria Antonia Vanegas RN NGUAL TEACHER Telephone Encounter - Maria Antonia Vanegas - 01/24/2005 8:11 AM CST Pt advised. Pt wants script called into [facility] pharmacy, which opens at 9am. NGUAL TEACHER Telephone Encounter - Ophelia Ramirez - 01/23/2005 3:19 PM CST Message left for patient to call back. NGUAL TEACHER Telephone Encounter - Ophelia Ramirez - 01/23/2005 3:18 PM CST Result Notes Notes recorded by Isaac Mason on 01/23/2005 at 1:14 PM labs normal but potassiumpreferably above 4.0, now 3.7. Advise k dur 10 meq daily until has surgery. please confirm pharmacy and place rx in refills for my okay NGUAL TEACHER documented in this encounter Plan of Treatment Not on filedocumented as of this encounter Visit Diagnoses Not on filedocumented in this encounter Care Teams Ice Cream Shop Associate Relationship Specialty Start Date End Date Nader Garibay MD PCP - General 01/01/02 10/16/17 documented as of this encounter
--- OUTSIDE RECORDS SUMMARY | 2022-10-07 10:53 | XMS_ITS | Encounter Summary ---
:1935 Author Organization [facility] Address [address] [place] [address]. [place] [address] Care Team Providers Name Role Phone Nader Garibay MD Primary Care Provider Reason for Referral - Closed Specialty Diagnoses / Procedures Referred By Contact Refer red To Contact Diagnoses Unspecified sleep apnea Other malaise and fatigue [facility] [address] [phone] Referral ID Status Reason Start Date Expiration Date Visits Requ ested Visits Authorized [id number] Closed 07/26/2004 11/16/2011 1 1 Reason for Visit Reason Comments Perspiration EPISODES OF EXCESSIVE SWEATI NG, ESPECIALLY WHEN USING UPPER ARMS Sleep Problem CAN SLEEP 18-20 HOURS PER DA Y Derm Problem CHECK SKIN LESIONS Encounter Details Date Type Department Care Team Description 07/26/2004 Office Visit [facility] [place], HYPERHIDRO SIS (Primary Dx); [facility] Isaac Schwartz DEPRESSIV E DISORDER NEC ; [place] OTHER UNSPEC SLEEP APNEA ; [address] OBESITY NOS ; [place], [place] OTHER MALAIS E AND FATIGUE; [phone] LIPOMA SKIN NEC; [phone] BENIGN NEOPLASM SKIN NOS Social History Tobacco Use Types Packs/Day Years Used Date Smoking Tobacco: Never Alcohol Use Standard Drinks/Week Comments Yes 0 (1 standard drink = 0.6 oz pure alcoho l) SELDOM Sex Assigned at Date Recorded Not on file documented as of this encounter Last Filed Vital Signs Vital Sign Reading Time Taken Comments Blood Pressure 120/64 07/26/2004 2:14 PM CDT Pulse 88 07/26/2004 2:14 PM CDT Temperature - - Respiratory Rate - - Oxygen Saturation - - Inhaled Oxygen Concentration - - Weight 105.7 kg (233 lb) 07/26/2004 2:14 PM CDT Height - - Body Mass Index 38.77 11/03/2002 11:00 AM MANAGER MECHANICAL documented in this encounter Progress Notes 07/26/2004 2:00 PM CDT SUBJECTIVE: Vielka Snyder is seen with a complaint of excessive perspiration with exertion, particularily with using upper body, not walking. This has been going on a long time but getting worse. Fatigued. Afraid to do anything physical. Three spots and several lumps she is concerned about. One spot on right thigh is now ovoid and was more round. She continues to be fatigued, but has not increased her effexor. Has sleep apnea but has not been seen in followup by pulmonary for some time. 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] EDEMA[782.3] DEPRESSIVE DISORDER NEC[311] ESOPHAGEAL REFLUX[530.81] MIXED HYPERLIPIDEMIA[272.2] OTHER UNSPEC SLEEP APNEA[780.57] OBESITY NOS[278.00] Review of patient's past surgical history indicates: DELIVERY ONLY Comment: , Low Cervical,X2 DILATION/CURETTAGE,DIAGNOSTIC Comment: X3 IN HER 50s APPENDECTOMY 1950 Allergies As of Date: 07/26/2004 Noted Reaction IBUPROFEN 09/27/2002 in large quantities- personality change TETRACYCLINE 09/28/2002 Date Verified: 05/18/2004 Meds as of 07/26/2004: ASPIRIN 81 MG OR TABS 1 tab po QD (Once per day) LIPITOR 10 MG OR TABS 1 tab PO QD (Once per day) GAS RELIEF 125 MG OR CAPS phyazyme BEXTRA 20 MG OR TABS 1 TABLET DAILY TRIAMTERENE-HCTZ 75-50 MG OR TABS 1 TABLET DAILY NEXIUM 40 MG OR CPDR 1 CAPSULE DAILY EFFEXOR XR 150 MG OR CP24 1 CAPSULE DAILY WITH FOOD EFFEXOR XR 75 MG OR CP24 3 caps daily with food REVIEW OF SYSTEMS: CONSTITUTIONAL: NEGATIVE for fever, chills, change in weight, generally feels well. EYES: NEGATIVE for vision changes or irritation and corrected vision ENT/MOUTH: NEGATIVE for ear, mouth and throat problems RESP: NEGATIVE for significant cough or SOB BREAST: NEGATIVE for masses, tenderness or discharge CV: NEGATIVE for chest pain, palpitations or peripheral edema GI: NEGATIVE for nausea, abdominal pain, heartburn, or change in bowel habits : NEGATIVE for frequency, dysuria, nocturia, hematuria, or incontinence MUSCULOSKELATAL: NEGATIVE for significant arthralgias or myalgia SKIN: NEGATIVE for worrisome skin lesions, or rashes. NEURO: NEGATIVE for weakness, dizziness or paresthesias ENDOCRINE: NEGATIVE for temperature intolerance, skin/hair changes HEME/ALLERGY/IMMUNE: NEGATIVE for bleeding problems PSYCHIATRIC: NEGATIVE for changes in mood or affect OBJECTIVE: REPEAT BP: GENERAL: ALERT, NO DISTRESS NECK: SUPPLE, THYROID NORMAL, CAROTIDS 2+ BILATERALLY WITHOUT BRUITS LUNGS: CLEAR HEART: NSR WITHOUT MURMURS OR GALLOPS ABDOMEN: SOFT, NONTENDER, NO MASSES, NORMAL BOWEL SOUNDS EXTREMETIES: NO EDEMA, SKIN: MULTIPLE LIGHTLY PIGMENTED LESIONS WHICH ARE SIMILAR OVER TRUNK, MULTIPLE GELATINOUS MASSES ON LEGS AND TRUNK WHICH ARE CONSISTENT WITH LIPOMATA AP: 780.8 HYPERHIDROSIS (primary encounter diagnosis) Note: on exertion Plan: ELECTROCARDIOGRAM, COMP W/READ, TSH W/FREE T4 REFLEX, T4, FREE, SERUM, T3 FREE, STRESS ECHO (METRO) 311 DEPRESSIVE DISORDER NEC Note: Plan: INCREASE EFFEXOR PREVIOUSLY ORDERED 780.57 OTHER UNSPEC SLEEP APNEA Note: Plan: CONSULT PULMONARY MEDICINE 278.00 OBESITY NOS Note: Plan: WEIGHT LOSS 780.79 OTHER MALAISE AND FATIGUE Note: Plan: CONSULT PULMONARY MEDICINE, STRESS ECHO (METRO) 214.1 LIPOMA SKIN NEC Note: Plan: NO RX 216.9 BENIGN NEOPLASM SKIN NOS Note: Plan: NO RX * More than 25 minutes was spent with this patient, more than half spent in education and counseling. If ordered, I have discussed with the patient the risks, benefits, and treatment options of prescribed medications or other treatment modalities. I have instructed the patient to call or schedule a follow-up appointment for any problems or failure to improve. documented in this encounter Nursing Notes 07/26/2004 2:00 PM CDT >> JAMEE CHUN 07/26/2004 2:14 pm Vielka Snyder presents for 1)SKIN LESIONS, SLEEP CONCERNS AND DIAPHORISIS. Initial Wt 233 lbs (105.7kg) LMP Postmenopausal completed using BP cuff size: large. documented in this encounter Plan of Treatment Not on filedocumented as of this encounter Procedures Procedure Name Priority Date/Time Associated Diagnosis Comme nts ZZ CONSULT Routine 09/18/2005 OTHER UNSPEC SLEEP PULMONARY MEDICINE APNEA Other Malaise And Fatigue HCL TSH W/FREE T4 Routine 07/26/2004 3:06 PM Hyperhidrosis Res ults for this REFLEX CDT procedure are i n the results section. HCL T4 FREE Routine 07/26/2004 3:06 PM Hyperhidrosis Results for this CDT procedure are i n the results section. CL AFF T3 FREE Routine 07/26/2004 3:06 PM Hyperhidrosis Result s for this CDT procedure are i n the results section. ZZC Routine 07/26/2004 Hyperhidrosis ELECTROCARDIOGRAM, COMP W/READ documented in this encounter Results CONSULT PULMONARY MEDICINE (09/18/2005) Narrative This result has an attachment that is no t available. Isaac Mason REFERRAL T3 FREE (07/26/2004 3:06 PM CDT) athologist Signature T3 Free 2.8 [facility] Comment: Reference range: 2.4 to 4.2 Unit: pg/mL (Note) The above test was performed at: [facility], [address] [place] [id number] Specimen Anatomical Collection Method Collection Time Receive d Time (Source) Location / / Volume Laterality 07/26/2004 3:06 PM 4 3:07 CDT PM CDT Isaac Mason LABORATORY Performing Organization Address City/State/ZIP Code Phon e Number [facility] [address] [place] [address] [facility] T4, FREE, SERUM (07/26/2004 3:06 PM CDT) athologist Signature T4 Free 1.21 0.70 - 1.85 [facility] ng/dL CLINIC LAB Specimen Anatomical Collection Method Collection Time Receive d Time (Source) Location / / Volume Laterality 07/26/2004 3:06 PM 4 3:07 CDT PM CDT Isaac Mason LABORATORY Performing Organization Address City/State/ZIP Code Phon e Number [facility] [address] [place] [phone] [facility] TSH W/FREE T4 REFLEX (07/26/2004 3:06 PM CDT) P athologist Signature TSH 3.25 0.4 - 5.0 [facility] mU/L CLINIC LAB Specimen Anatomical Collection Method Collection Time Receive d Time (Source) Location / / Volume Laterality 07/26/2004 3:06 PM 4 3:07 CDT PM CDT Isaac Mason LABORATORY Performing Organization Address City/[facility]/ZIP Code Phon e Number [facility] [address] [place] [phone] [facility] ELECTROCARDIOGRAM, COMP W/READ (07/26/2004) Narrative This result has an attachment that is no t available. Isaac Mason EKG TECHNICAL documented in this encounter Visit Diagnoses Diagnosis Generalized hyperhidrosis - Primary DEPRESSIVE DISORDER NEC Depressive disorder, not elsewhere class ified OTHER UNSPEC SLEEP APNEA Unspecified sleep apnea OBESITY NOS Obesity, unspecified Other malaise and fatigue Lipoma of other skin and subcutaneous ti ssue Benign neoplasm of skin, site unspecifie d documented in this encounter Care Teams Licensed Home Inspector Relationship Specialty Start Date End Date Nader Garibay MD PCP - General 01/01/02 10/16/17 documented as of this encounter
--- OUTSIDE RECORDS SUMMARY | 2022-10-07 10:53 | XMS_ITS | Encounter Summary ---
:1935 Author Organization [facility] Address [address] [place] [address]. [place] [address] Care Team Providers Name Role Phone Nader Garibay MD Primary Care Provider Encounter Details Date Type Department Care Team Description 01/28/2005 Operative Report [facility] Tomas Eckert (Mine Inspector) [facility] Madeline MD Ivan [address] ORTHOPEDICS [address] [phone] [place], [place] [id number] Social History Tobacco Use Types Packs/Day Years Used Date Smoking Tobacco: Never Alcohol Use Standard Drinks/Week Comments Yes 0 (1 standard drink = 0.6 oz pure alcoho l) SELDOM Sex Assigned at Date Recorded Not on file documented as of this encounter Progress Notes Tomas Eckert - 01/28/2005 11:59 PM COMMERCIAL ACCOUNT EXECUTIVE 1st ASS'T: SHEILA Guido 2nd ASS'T: PRE-OPERATIVE DIAGNOSIS:End-stage osteoarthritis, right hip. POST-OPERATIVE DIAGNOSIS:End-stage osteoarthritis, right hip. OPERATION:Right total hip replacement. ANESTHESIA: General. DESCRIPTION OF PROCEDURE: Annia Snyder was brought to the operating room and general anesthesia was induced. Prophylactic IV antibiotics had already been given. She was carefully rolled to the left lateral decubitus position. A pelvic positioner and axillary roll were used. The down extremities were carefully padded. The right lower extremity, buttock, groin, and flank were all prepped and draped in customary fashion. A posterior approach to the hip was chosen. The standard skin incision was made. Dissection was carried down to the fascia which was divided in line with the skin incision. The bursa was divided. The Charnley retractor was placed. The short external rotators were sequentially taken down off bone. The posterior hip capsule was excised. The hip was dislocated. The femoral head was amputated at an appropriate level and inclination. An anterior capsulotomy was performed and an anterior cobra retractor was placed. The labrum was debrided. The acetabular notch was debrided. Serial spherical concentric reaming was performed up to size 50 mm. Several, small cysts were curetted and packed with reamings. A Biomet Trista head radial three-hole, 50 mm in diameter was impacted into place. A single 6.5 mm screw was placed up into the ilium. A trial liner was placed. Attention was turned to the femur. The box chisel was used to remove the superolateral femoral neck. Serial reaming and broaching was performed with the Biomet Bi-metric size 9. A very tight fit is chosen. We get good stability and trial reduction with a 10 degree liner. This was placed. The size 9 Bi-metric standard stem was impacted into place. Again, trial reductions are performed. We get the best combination of motion and stability with the standard neck length. This was impacted on the taper. At final reduction, we are stable at 90 degrees of flexion to about 50 degrees of internal rotation. We are also very stable in extension and external rotation. The wound was copiously irrigated. Two medium Hemovacs were brought out via separate stab incisions. The fascia was closed distally with interrupted Ethibond [id number] sutures. An #0 Vicryl figure- of-eight sutures were used more proximally. The subcutaneous tissues were closed with 2-0 Vicryl and the skin reapproximated with skin clips. A bulky sterile dressing and abduction pillow were applied. The patient was taken to the recovery room in satisfactory condition. Final counts are correct. TOMAS ECKERT JR, MD MT: taj Document: [id number] [place], [place] Name: ANNIA SNYDER OPERATIVE REPORT Page 2 of 2 LCN: [id number] DSC: [place], [place] Name: ANNIA SNYDER MR#: : Procedure Date: [id number] 1935 01/28/2005 Surgeon: TOMAS ECKERT JR, MD OPERATIVE REPORT Page 1 of 2 ERCIAL ACCOUNT EXECUTIVE documented in this encounter Plan of Treatment Not on filedocumented as of this encounter Visit Diagnoses Not on filedocumented in this encounter Care Teams Lab Asst Relationship Specialty Start Date End Date Nader Garibay MD PCP - General 01/01/02 10/16/17 documented as of this encounter
--- OUTSIDE RECORDS SUMMARY | 2022-10-07 10:53 | XMS_ITS | Encounter Summary ---
:1935 Author Organization [facility] Address [address] [place] [id number] Care Team Providers Name Role Phone Nader Garibay MD Primary Care Provider Encounter Details Date Type Department Care Team Description 05/18/2004 Orders Only [facility] MIX ED HYPERLIPIDEMIA; [place] [facility] LABORATORY EXAMINATION [address] [phone] Social History Tobacco Use [...] Priority Date/Time Associated Diagnosis Comme nts HCL GLUCOSE Routine 05/18/2004 7:32 AM Laboratory Examination Results for this CDT procedure are i n the results section. HCL ALT Routine 05/18/2004 7:32 AM Mixed Hyperlipidemia R esults for this CDT procedure are i n the results section. HCL AST Routine 05/18/2004 7:32 AM Mixed Hyperlipidemia R esults for this CDT procedure are i n the results section. CL AFF A.M.A. Routine 05/18/2004 7:32 AM Mixed Hyperlipidemia Results for this LIPID PANEL CDT procedure are i n the results section. documented in this encounter Results GLUCOSE (05/18/2004 7:32 AM CDT) P athologist Signature Glucose 110 60 - 115 [facility] mg/dL CLINIC LAB Specimen Anatomical Collection Method Collection Time Receive d Time (Source) Location / / Volume Laterality 05/18/2004 7:32 AM 4 7:33 CDT AM CDT Isaac Mason LABORATORY Performing Organization Address City/[facility]/ZIP Code Phon e Number [facility] [address] [place] [address] [facility] ALANINE AMINO (ALT) (SGPT) (05/18/2004 7:32 AM CDT) P athologist Signature ALT 36 0 - 50 U/L [facility] Specimen Anatomical Collection Method Collection Time Receive d Time (Source) Location / / Volume Laterality 05/18/2004 7:32 AM 4 7:33 CDT AM CDT Isaac Mason LABORATORY Performing Organization Address City/[facility]/ZIP Code Phon e Number [facility] [address] [place] [address] [facility] AST (05/18/2004 7:32 AM CDT) P athologist Signature AST 33 0 - 45 U/L [facility] Specimen Anatomical Collection Method Collection Time Receive d Time (Source) Location / / Volume Laterality 05/18/2004 7:32 AM 4 7:33 CDT AM CDT Isaac Mason LABORATORY Performing Organization Address City/[facility]/ZIP Code Phon e Number [facility] [address] [place] [address] [facility] (ABNORMAL) A.M.A. LIPID PANEL (05/18/2004 7:32 AM CDT) P athologist Signature Cholesterol 194 <200 mg/dL [facility] Comment: Cholesterol Reference Range: <200 ??The NCEP recommends further ? evaluation of: ? 1. ??Patients with cholesterol ? greater than 200 mg/dL ? if additional risk facto rs ? are present. ? 2. ??All patients with a ? cholesterol greater than ? 240 mg/dL. Triglycerides 176 (H) <150 mg/dL [facility] HDL Cholesterol 46 >40 mg/dL [facility] LDL Cholesterol Calculated 113 <130 mg/dL [facility] VLDL-Cholesterol 35 (H) 0 - 30 mg/dL [facility]3] LAB Cholesterol/HDL Ratio 4.3 0.0 - 5.0 [facility] Specimen Anatomical Collection Method Collection Time Receive d Time (Source) Location / / Volume Laterality 05/18/2004 7:32 AM 4 7:33 CDT AM CDT Isaac Mason LABORATORY Performing Organization Address City/State/ZIP Code Phon e Number [facility] [address] [place] [address] [facility] documented in this encounter Visit Diagnoses Diagnosis Mixed hyperlipidemia Laboratory examination documented in this encounter Care Teams Coal Pulverizing Operator Relationship Specialty Start Date End Date Nader Garibay MD PCP - General 01/01/02 10/16/17 documented as of this encounter
--- OUTSIDE RECORDS SUMMARY | 2022-10-07 10:53 | XMS_ITS | Encounter Summary ---
:1935 Author Organization [place] Address [address] [place] [address] Care Team Providers Name Role Phone Nader Garibay MD Primary Care Provider Reason for Visit Reason Comments Pre-Op Exam Mass right breast Throat Problem raspy voice for 5 days Refill Request Bextra Encounter Details Date Type Department Care Team Description 01/23/2005 Office Visit [facility] [place], PREOP EXAM OTHER SPECIFIED (Primary Dx); [facility] [place] Tiki Schwartz BENIGN HY PERTENSION [place] [address] [phone] Social History Tobacco Use Types Packs/Day Years Used Date Smoking Tobacco: Never Alcohol Use Standard Drinks/Week Comments Yes 0 (1 standard drink = 0.6 oz pure alcoho l) SELDOM Sex Assigned at Date Recorded Not on file documented as of this encounter Last Filed Vital Signs Vital Sign Reading Time Taken Comments Blood Pressure 120/60 01/23/2005 7:30 AM DEVELOPMENT OFFICER Pulse 72 01/23/2005 7:30 AM DEVELOPMENT OFFICER Temperature 36.7 ??C (98 ??F) 01/23/2005 7:30 AM DEVELOPMENT OFFICER Respiratory Rate 12 01/23/2005 7:30 AM DEVELOPMENT OFFICER Oxygen Saturation - - Inhaled Oxygen Concentration - - Weight 96.2 kg (212 lb) 01/23/2005 7:30 AM DEVELOPMENT OFFICER Height 166.4 cm (5' 5.5) 01/23/2005 7:30 AM DEVELOPMENT OFFICER Body Mass Index 34.74 01/23/2005 7:30 AM DEVELOPMENT OFFICER documented in this encounter Progress Notes Tiki Mason - 01/23/2005 8:15 AM CST PAST MEDICAL HISTORY Previous Medical History: MIXED HYPERLIPIDEMIA ESOPHAGEAL REFLUX DEPRESSIVE DISORDER NEC EDEMA LOC PRIM OSTEOART-L/LEG OTHER UNSPEC SLEEP APNEA DEEP VEIN THROMBOPHLEBITIS, AGE 23, RIGHT FOOT PAST SURGICAL HISTORY Review of patient's past surgical history indicates: DELIVERY ONLY Comment: , Low Cervical,X2 DILATION/CURETTAGE,DIAGNOSTIC Comment: X3 IN HER 50s APPENDECTOMY 1950 CURRENT MEDICATIONS Current outpatient prescriptions: ASPIRIN 81 MG OR TABS on hold for surgery BEXTRA 20 MG OR TABS on hold for surgery EFFEXOR XR 75 MG OR CP24 2 caps daily with food NEXIUM 40 MG OR CPDR 1 CAPSULE DAILY HYDROCHLOROTHIAZIDE 25 MG OR TABS 1 TAB PO QD (Once per day) LIPITOR 10 MG OR TABS 1 tab PO QD (Once per day) NEXIUM 40 MG OR CPDR 1 CAPSULE DAILY ALLERGIES ========= Allergies As of Date: 01/23/2005 Noted Reaction IBUPROFEN 09/27/2002 TETRACYCLINE 09/28/2002 Date Reviewed: 01/23/2005 FAMILY HISTORY Family History: Stroke Mother Comment: D ; AGE 88 Cancer Father Comment: D ; AGE 59 LUNG CANCER Cancer Sister Comment: KIDNEY Gynecology Sister Comment: ENDOMETRIOSIS Family History Negative Sister Cancer Paternal Grandmother Comment: OVARIAN Heart Paternal Grandfather Comment: OR Depression Son HABITS ====== Tobacco Use: Never Alcohol Use: Yes Comment: SELDOM REVIEW OF SYSTEMS CONSTITUTIONAL: NEGATIVE for fever, chills, change in weight INTEGUMENTARY/SKIN: NEGATIVE for worrisome rashes, moles or lesions EYES: NEGATIVE for vision changes or irritation and corrected vision ENT/MOUTH: NEGATIVE for ear, mouth and throat problems RESP: NEGATIVE for significant cough or SOB BREAST: NEGATIVE for tenderness or discharge NOTES SUPREFICIAL LUMG IN LEFT BREAST CV: NEGATIVE for chest pain, palpitations or peripheral edema GI: NEGATIVE for nausea, abdominal pain, heartburn, or change in bowel habits : NEGATIVE for frequency, dysuria, or hematuria MUSCULOSKELETAL: NEGATIVE for significant arthralgias or myalgia NEURO: NEGATIVE for weakness, dizziness or paresthesias ENDOCRINE: NEGATIVE for temperature intolerance, skin/hair changes HEME/ALLERGY/IMMUNE: NEGATIVE for bleeding problems PSYCHIATRIC: NEGATIVE for changes in mood or affect EXAM ==== BP 130/60 Pulse 72 Temp 98 Resp 12 Ht 5' 5.5 (1.66m) Wt 212 lbs (96.2kg) LMP Postmenopausal GENERAL APPEARANCE: healthy, alert and no distress EYES: Eyes grossly normal to inspection, PERRL and conjunctivae and sclerae normal HENT: ear canals and TM's normal and nose and mouth without ulcers or lesions NECK: no adenopathy, no asymmetry, masses, or scars and thyroid normal to palpation RESP: lungs clear to auscultation - no rales, rhonchi or wheezes BREAST: normal without masses EXCEPT SUPERFICIAL SMALL MASS, SUBCUTANEOUS, CONSISTENT WITH A COMEDONE WITH VISIBLE CENTER AT INFEROMESIAL EDGE LEFT BREAST, tenderness or nipple discharge and no palpable axillary masses or adenopathy CV: regular rates and rhythm, normal S1 S2, no S3 or S4 and no murmur, click or rub LYMPHATICS: normal ant/post cervical, axillary, supraclavicular and inguinal nodes ABDOMEN: soft, nontender, without hepatosplenomegaly or masses and bowel sounds normal : DEFFERED MS: extremities normal- no gross deformities noted SKIN: no suspicious lesions or rashes NEURO: Normal strength and tone, sensory exam grossly normal, mentation intact and speech normal PSYCH: mentation appears normal. and affect normal/bright DIAGNOSTICS: 1. EKG: appears normal, NSR, normal axis, normal intervals, no acute ST/T changes c/w ischemia, no LVH by voltage criteria, unchanged from previous tracings 2. Labs: pending IMPRESSION V72.83 PREOP EXAM OTHER SPECIFIED (primary encounter diagnosis) Note: Plan: HGB, POTASSIUM 401.1 BENIGN HYPERTENSION Note: Plan: HYDROCHLOROTHIAZIDE 25 MG OR TABS For above listed surgery and anesthesia: Patient is Low risk for surgery and perioperative complications. RECOMMENDATIONS Proceed without further diagnostic evaluation. Signed Electronically by Rod Mason Internal Medicine Department [facility] LOPMENT OFFICER Jamee Chun - 01/23/2005 7:50 AM CST PREOPERATIVE HISTORY AND PHYSICAL Vielka Snyder is a 69 year old female (1935) who presents for the following surgery/procedure:TOTAL RIGHT HIP REPLACEMENT Diagnosis(reason for surgery/procedure):DJD Date of Exam: 01/23/2005 DATE OF SURGERY: 01/28/05 Surgeon: DR BAEZ [facility] Facility: [facility] Primary Physician: IBAN MASON Type of Anesthesia Anticipated:General History of Complications from Anesthesia: NONE History of abnormal bleeding : NONE History of Blood Tranfusions NO Latex Allergy: NO The patient has a Health Care Directive or Living Will: NO. INFO GIVEN TO PATIENT Jamee Chun LPN. LOPMENT OFFICER Tiki Mason - 01/23/2005 7:30 AM DEVELOPMENT OFFICER Addended by: TIKI MASON on: 01/23/2005 8:51:16 AM Modules accepted: Orders LOPMENT OFFICER Tiki Mason - 01/23/2005 7:30 AM DEVELOPMENT OFFICER Addended by: TIKI MASON on: 01/23/2005 8:53:52 AM Modules accepted: Orders LOPMENT OFFICER documented in this encounter Nursing Notes 01/23/2005 7:30 AM CST >> JAMEE CHUN 01/23/2005 7:50 am Vielka Snyder presents for preop,refill,breast mass, raspy voice. Initial BP 130/60 Pulse 72 Temp 98 Resp 12 Ht 5' 5.5 (1.66m) Wt 212 lbs (96.2kg) LMP Postmenopausal Body Mass Index is 34.73 kg/(m^2). . BP completed using cuff size: large. Jamee Ashley MASK LAYOUT DESIGNER. documented in this encounter Plan of Treatment Not on filedocumented as of this encounter Procedures Procedure Name Priority Date/Time Associated Comments Diagnosis HCL HEMOGLOBIN Routine 01/23/2005 8:37 AM Preop Exam Other Res ults for this NONLAB DEVELOPMENT OFFICER Specified procedure are i n the results section. HCL POTASSIUM Routine 01/23/2005 8:37 AM Preop Exam Other Resu lts for this DEVELOPMENT OFFICER Specified procedure are i n the results section. documented in this encounter Results POTASSIUM (01/23/2005 8:37 AM DEVELOPMENT OFFICER) P athologist Signature Potassium 3.7 3.4 - 5.3 [facility] mmol/L CLINIC LAB Specimen Anatomical Collection Method Collection Time Receive d Time (Source) Location / / Volume Laterality 01/23/2005 8:37 AM 5 8:38 DEVELOPMENT OFFICER AM DEVELOPMENT OFFICER Tiki Mason LABORATORY Performing Organization Address City/[facility]/ZIP Code Phon e Number [facility] [address] [place] [id number] [facility] HGB (01/23/2005 8:37 AM DEVELOPMENT OFFICER) P athologist Signature Hemoglobin 12.7 11.7 - 15.7 [facility] g/dL CLINIC LAB Specimen Anatomical Collection Method Collection Time Receive d Time (Source) Location / / Volume Laterality 01/23/2005 8:37 AM 5 8:38 DEVELOPMENT OFFICER AM DEVELOPMENT OFFICER Tiki Mason LABORATORY Performing Organization Address City/[facility] Phon e Number [facility] [address] [place] [id number] [facility] documented in this encounter Visit Diagnoses Diagnosis Other specified pre-operative examinatio n - Primary Essential hypertension, benign documented in this encounter Care Teams Auto Damage Appraiser Relationship Specialty Start Date End Date Nader Garibay MD PCP - General 01/01/02 10/16/17 documented as of this encounter
--- OUTSIDE RECORDS SUMMARY | 2022-10-07 10:53 | XMS_ITS | Encounter Summary ---
:1935 Author Organization [place] Address [address] [place] [address]. [place] [address] Care Team Providers Name Role Phone Nader Garibay MD Primary Care Provider Reason for Referral - Closed Specialty Diagnoses / Procedures Referred By Contact Refer red To Contact Diagnoses Other malaise and fatigue Generalized hyperhidrosis [address] [phone] Referral ID Status Reason Start Date Expiration Date Visits Requ ested Visits Authorized [id number] Closed 08/07/2004 11/16/2011 1 1 - Closed Specialty Diagnoses / Procedures Referred By Contact Refer red To Contact Diagnoses Sprain and strain of other specified sites of shoulder and upper arm Sprain of neck [facility] [address] [phone] Referral ID Status Reason Start Date Expiration Date Visits Requ ested Visits Authorized [id number] Closed 08/07/2004 11/16/2011 1 1 Reason for Visit Reason Comments Pain Right shoulder pain after st ress test last week-? pulled muscle Encounter Details Date Type Department Care Team Description 08/07/2004 Office Visit [facility] [place], SPRAIN ALEXA ULDER/ARM NEC [840.8] (Primary Dx); [facility] Isaac Schwartz SPRAIN OF NECK; [facility] OTHER MALAISE AND FATIGUE; [address] [place] [address] [place] [phone] Social History Tobacco Use Types Packs/Day Years Used Date Smoking Tobacco: Never Alcohol Use Standard Drinks/Week Comments Yes 0 (1 standard drink = 0.6 oz pure alcoho l) SELDOM Sex Assigned at Date Recorded Not on file documented as of this encounter Last Filed Vital Signs Vital Sign Reading Time Taken Comments Blood Pressure 124/72 08/07/2004 11:21 AM CDT Pulse 64 08/07/2004 11:21 AM CDT Temperature 36.8 ??C (98.2 ??F) 08/07/2004 11:21 AM CDT Respiratory Rate - - Oxygen Saturation - - Inhaled Oxygen Concentration - - Weight 107.8 kg (237 lb 9.6 oz) 08/07/2004 11:21 AM CDT Height 166.4 cm (5' 5.5) 08/07/2004 11:21 AM CDT Body Mass Index 38.94 08/07/2004 11:21 AM CDT documented in this encounter Progress Notes 08/07/2004 11:30 AM CDT SUBJECTIVE: Vielka Snyder is seen with a complaint of right upper back and upper arm pain since her stress test. Couldn't keep up with the treadmill and was her arms and shoulders were being pulled. 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] EDEMA[782.3] DEPRESSIVE DISORDER NEC[311] ESOPHAGEAL REFLUX[530.81] MIXED HYPERLIPIDEMIA[272.2] OTHER UNSPEC SLEEP APNEA[780.57] OBESITY NOS[278.00] Review of patient's past surgical history indicates: DELIVERY ONLY Comment: , Low Cervical,X2 DILATION/CURETTAGE,DIAGNOSTIC Comment: X3 IN HER 50s APPENDECTOMY 1950 Allergies As of Date: 08/07/2004 Noted Reaction IBUPROFEN 09/27/2002 in large quantities- personality change TETRACYCLINE 09/28/2002 Date Verified: 08/07/2004 Meds as of 08/07/2004: ASPIRIN 81 MG OR TABS 1 tab [...] for changes in mood or affect OBJECTIVE: GENERAL: ALERT, NO DISTRESS NECK: SUPPLE, THYROID NORMAL, CAROTIDS 2+ BILATERALLY WITHOUT BRUITS LUNGS: CLEAR HEART: NSR WITHOUT MURMURS OR GALLOPS ABDOMEN: SOFT, NONTENDER, NO MASSES, NORMAL BOWEL SOUNDS EXTREMETIES: tenderness right shoulder strap mm and along right scapula, good rom of shoulder A/P: 840.8 SPRAIN SHOULDER/ARM NEC [840.8] (primary encounter diagnosis) Note: rt Plan: TYLENOL/CODEINE #3 300-30 MG OR TABS, CONSULT [facility] (PT & CHIRO), FLEXERIL 10 MG OR TABS 847.0 SPRAIN OF NECK Note: Plan: TYLENOL/CODEINE #3 300-30 MG OR TABS, CONSULT [facility] (PT & CHIRO), FLEXERIL 10 MG OR TABS 780.79 OTHER MALAISE AND FATIGUE Note: Plan: CONSULT CARDIOLOGY as below 780.8 HYPERHIDROSIS Note: Plan: CONSULT CARDIOLOGY-nuclear stress test, adenosine More than 25 minutes was spent with this patient, more than half spent in education and counseling. If ordered, I have discussed with the patient the risks, benefits, and treatment options of prescribed medications or other treatment modalities. I have instructed the patient to call or schedule a follow-up appointment for any problems or failure to improve. documented in this encounter Nursing Notes 08/07/2004 11:30 AM CDT >> LUCÍA HORVATH 08/07/2004 12:57 pm Cardiolite Stress Test scheduled for 08/14/04 at 11:15 AM. Pt.advised of prep, directions given. Orders faxed to [facility] at [phone]. Lucía Horvath R.N. >> LUCÍA HORVATH 08/07/2004 11:24 am Vielka Snyder presents for Right shoulder/upper back pain since stress test last week. Constant pain which increases with movement to a pain level of ten- sharp. taking Aleve with helps a little but seems to be getting worse. Initial BP 124/72 Pulse 64 Temp (Src) 98.2 (Oral) Ht 5' 5.5 (1.66m) Wt 237 lbs 10 oz (107.8kg) LMP Postmenopausal. BP completed using cuff size: large. Lucía Horvath R.N. documented in this encounter Plan of Treatment Not on filedocumented as of this encounter Procedures Procedure Name Priority Date/Time Associated Diagnosis Comme nts [facility] PT AND HAND REFERRAL Routine 09/27/2004 SPRAIN SHOULD ER/ARM NEC [840.8] Sprain Of Neck documented in this encounter Results CONSULT [facility] (PT & CHIRO) (09/27/2004) Narrative This result has an attachment that is no t available. Isaac Mason REFERRAL documented in this encounter Visit Diagnoses Diagnosis SPRAIN SHOULDER/ARM NEC [840.8] - Primar y Sprain and strain of other specified sit es of shoulder and upper arm Sprain of neck Other malaise and fatigue Generalized hyperhidrosis documented in this encounter Care Teams Operations Officer Afloat Relationship Specialty Start Date End Date Nader Garibay MD PCP - General 01/01/02 10/16/17 documented as of this encounter
--- OUTSIDE RECORDS SUMMARY | 2022-10-07 10:53 | XMS_ITS | Encounter Summary ---
:1935 Author Organization [place] Address [address] [place] [address] Care Team Providers Name Role Phone Nader Garibay MD Primary Care Provider Reason for Visit Reason Onset Date Comments Refill Request 06/13/2005 Encounter Details Date Type Department Care Team Description 06/13/2005 Refill [facility] Jennifer Mason Refill Request [place] [phone] Social History Tobacco Use Types Packs/Day Years Used Date Smoking Tobacco: Never Alcohol Use Standard Drinks/Week Comments Yes 0 (1 standard drink = 0.6 oz pure alcoho l) SELDOM Sex Assigned at Date Recorded Not on file documented as of this encounter Miscellaneous Notes Telephone Encounter - Joshua Mroales - 06/17/2005 3:38 PM CDT done Telephone Encounter - Sheridan Shields - 06/17/2005 3:23 PM CDT Pt called again, she is out of med so needs today please. Telephone Encounter - Ophelia Ramirez - 06/13/2005 5:01 PM CDT Patient needs written RX for mail in and one month supply faxed to local pharmacy. Mail to patient when ready. documented in this encounter Plan of Treatment Not on filedocumented as of this encounter Visit Diagnoses Diagnosis Depressive disorder, not elsewhere class ified - Primary Mixed hyperlipidemia documented in this encounter Care Teams Viscose Department Worker Relationship Specialty Start Date End Date Nader Garibay MD PCP - General 01/01/02 10/16/17 documented as of this encounter
--- OUTSIDE RECORDS SUMMARY | 2022-10-07 10:53 | XMS_ITS | Encounter Summary ---
:1935 Author Organization [place] Address [address] [place] [address]. [place] [address] Care Team Providers Name Role Phone Nader Garibay MD Primary Care Provider Encounter Details Date Type Department Care Team Description 09/18/2004 Orders Only [facility] [place], DIAGNOSIS NOT YET Clinic [place] Isaac LAMB ( Primary Dx) [place] [address] [phone] Social History Tobacco Use Types [...] Diagnosis Comme nts HC GATED BLOOD POOL Routine 09/14/2004 DIAGNOSIS NOT YET Res ults for this SINGLE AT REST/STRESS DEFINED proced ure are in the [facility] EJ results sec tion. FRACTION documented in this encounter Results GATED HEART, PLANAR SINGLE (09/14/2004) Anatomical Region Laterality Modality Other Specimen (Source) Anatomical Location Collection Method / Collectio n Time Received Time / Laterality Volume 09/14/2004 Narrative This result has an attachment that is no t available. Isaac Mason SPECIAL IMAGING STUDIES documented in this encounter Visit Diagnoses Diagnosis DIAGNOSIS NOT YET DEFINED - Primary documented in this encounter Care Teams Adjunct Physics Instructor Relationship Specialty Start Date End Date Nader Garibay MD PCP - General 01/01/02 10/16/17 documented as of this encounter
--- OUTSIDE RECORDS SUMMARY | 2022-10-07 10:53 | XMS_ITS | Encounter Summary ---
:1935 Author Organization [place] Address [address] [place] [address]. [place] [address] Care Team Providers Name Role Phone Nader Garibay MD Primary Care Provider Reason for Visit Reason Comments Forms Encounter Details Date Type Department Care Team Description 05/29/2005 Office Visit [facility] HOLLY Mason PRIM O STEOART-L/LEG (Primary Dx); [facility] [place] Isaac Schwartz BENIGN HY PERTENSION [place] [address] [phone] Social History Tobacco Use Types Packs/Day Years Used Date Smoking Tobacco: Never Alcohol Use Standard Drinks/Week Comments Yes 0 (1 standard drink = 0.6 oz pure alcoho l) SELDOM Sex Assigned at Date Recorded Not on file documented as of this encounter Last Filed Vital Signs Vital Sign Reading Time Taken Comments Blood Pressure 110/60 05/29/2005 3:00 PM CDT Pulse - - Temperature 36.5 ??C (97.7 ??F) 05/29/2005 3:00 PM CDT Respiratory Rate - - Oxygen Saturation - - Inhaled Oxygen Concentration - - Weight 97.5 kg (215 lb) 05/29/2005 3:00 PM CDT Height - - Body Mass Index 35.23 01/23/2005 7:30 AM ADVANCED MANUFACTURING VICE PRESIDENT documented in this encounter Progress Notes Isaac Mason - 05/29/2005 3:39 PM CDT SUBJECTIVE: Vielka Snyder is seen regardin her DJD of the knees. She has upcoming TKA. Needs handicap sticker. Was on bextra which was taken off the market. 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] EDEMA[782.3] DEPRESSIVE DISORDER NEC[311] ESOPHAGEAL REFLUX[530.81] MIXED HYPERLIPIDEMIA[272.2] OTHER UNSPEC SLEEP APNEA[780.57] OBESITY NOS[278.00] Review of patient's past surgical history indicates: DELIVERY ONLY Comment: , Low Cervical,X2 DILATION/CURETTAGE,DIAGNOSTIC Comment: X3 IN HER 50s APPENDECTOMY 1950 Allergies As of Date: 05/29/2005 Noted Reaction IBUPROFEN 09/27/2002 TETRACYCLINE 09/28/2002 Date Reviewed: 05/29/2005 1. FELDENE 20 MG OR CAPS Route: Oral Si CAPSULE DAILY Dispense: 30 Refill: 5 2. HYDROCHLOROTHIAZIDE 25 MG OR TABS Route: Oral Si TAB PO QD (Once per day) Dispense: 100 Refill: 3 3. LIPITOR 10 MG OR TABS Route: Oral Si tab PO QD (Once per day) Dispense: 90 Refill: 3 4. EFFEXOR XR 75 MG OR CP24 Route: Oral SiCAPSULE DAILY WITH FOOD Dispense: 90 Refill: 3 5. NEXIUM 40 MG OR CPDR Route: Oral Si CAPSULE DAILY Dispense: 90 Refill: 3 REVIEW OF SYSTEMS: CONSTITUTIONAL: NEGATIVE for fever, [...] incontinence MUSCULOSKELATAL: NEGATIVE for significant arthralgias or myalgia, painful knees SKIN: NEGATIVE for worrisome skin lesions, or rashes. NEURO: NEGATIVE for weakness, dizziness or paresthesias ENDOCRINE: NEGATIVE for temperature intolerance, skin/hair changes HEME/ALLERGY/IMMUNE: NEGATIVE for bleeding problems PSYCHIATRIC: NEGATIVE for changes in mood or affect OBJECTIVE: BP 110/60 Temp (Src) 97.7 (Oral) Wt 215 lbs (97.5kg) LMP Postmenopausal GENERAL: ALERT, NO DISTRESS NECK: SUPPLE, THYROID NORMAL, CAROTIDS 2+ BILATERALLY WITHOUT BRUITS LUNGS: CLEAR HEART: NSR WITHOUT MURMURS OR GALLOPS ABDOMEN: SOFT, NONTENDER, NO MASSES, NORMAL BOWEL SOUNDS EXTREMETIES: TENDER KNEES MEDIALLY. A/P 715.16 LOC PRIM OSTEOART-L/LEG (primary encounter diagnosis) Note: Plan: FELDENE 20 MG OR CAPS 401.1 BENIGN HYPERTENSION Note: Plan: CONTRX More than 25 minutes was spent with this patient, more than half spent in education and counseling. If ordered, I have discussed with the patient the risks, benefits, and treatment options of prescribed medications or other treatment modalities. I have instructed the patient to call or schedule a follow-up appointment for any problems or failure to improve. documented in this encounter Nursing Notes 05/29/2005 3:00 PM CDT >> KELLI GAMBOA 05/29/2005 3:21 pm Vielka Snyder presents for forms for foster care renewal of license. Initial BP 110/60 Temp (Src) 97.7 (Oral) Wt 215 lbs (97.5kg) LMP Postmenopausal Estimated BodyMass Index is 35.22 kg/(m^2) as calculated from: Height of 5' 5.5 (1.664m) as of 01/23/05 Weight of 215 lbs (97.523 kg) as of this encounter . BP completed using cuff size: regular. GAIL Atkinson documented in this encounter Plan of Treatment Not on filedocumented as of this encounter Visit Diagnoses Diagnosis Primary localized osteoarthrosis, lower leg - Primary Essential hypertension, benign documented in this encounter Care Teams Tentering Machine Off Bearer Relationship Specialty Start Date End Date Nader Garibay MD PCP - General 01/01/02 10/16/17 documented as of this encounter
--- OUTSIDE RECORDS SUMMARY | 2022-10-07 10:53 | XMS_ITS | Encounter Summary ---
:1935 Author Organization [place] Address [address] [place] [address]. [place] [address] Care Team Providers Name Role Phone Nader Garibay MD Primary Care Provider Reason for Referral - Closed Specialty Diagnoses / Procedures Referred By Contact Refer red To Contact Diagnoses Sebaceous cyst Asymptomatic varicose veins [facility] [address] [phone] Referral ID Status Reason Start Date Expiration Date Visits Requ ested Visits Authorized [id number] Closed 03/28/2005 11/16/2011 1 1 Reason for Visit Reason Comments Recheck Medication and refills Encounter Details Date Type Department Care Team Description 03/28/2005 Office Visit [facility] [place], BENIGN HYP ERTENSION (Primary Dx); [facility] [place] Isaac Schwartz EDEMA; [place] SEBACEOUS CYST; [address] [place] [address] ASYMPTOMATIC VARICOSE VEINS; [place], [place] DEPRESSIVE D ISORDER NEC; [id number] MIXED HYPERLIPIDEMIA; [phone] ESOPHAGEAL REFL UX Social History Tobacco Use Types Packs/Day Years Used Date Smoking Tobacco: Never Alcohol Use Standard Drinks/Week Comments Yes 0 (1 standard drink = 0.6 oz pure alcoho l) SELDOM Sex Assigned at Date Recorded Not on file documented as of this encounter Last Filed Vital Signs Vital Sign Reading Time Taken Comments Blood Pressure 120/60 03/28/2005 10:00 AM CDT Pulse 68 03/28/2005 10:00 AM CDT Temperature - - Respiratory Rate - - Oxygen Saturation - - Inhaled Oxygen Concentration - - Weight 96.6 kg (213 lb) 03/28/2005 10:00 AM CDT Height - - Body Mass Index 34.91 01/23/2005 7:30 AM BIKE MECHANIC documented in this encounter Progress Notes Isaac Mason - 03/28/2005 10:34 AM CDT SUBJECTIVE: Vielka Snyder is seen in followup. She has a mass on her left breast which she is concerneed about, and has some varicose veings which she would like surgically addressed. She needs refills of medications. 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] EDEMA[782.3] DEPRESSIVE DISORDER NEC[311] ESOPHAGEAL REFLUX[530.81] MIXED HYPERLIPIDEMIA[272.2] OTHER UNSPEC SLEEP APNEA[780.57] OBESITY NOS[278.00] Review of patient's past surgical history indicates: DELIVERY ONLY Comment: , Low Cervical,X2 DILATION/CURETTAGE,DIAGNOSTIC Comment: X3 IN HER 50s APPENDECTOMY 1950 Allergies As of Date: 03/28/2005 Noted Reaction IBUPROFEN 09/27/2002 TETRACYCLINE 09/28/2002 Date Reviewed: 03/28/2005 1. ALEVE 220 MG OR TABS Route: Oral Si twice daily Dispense: Refill: 2. VICODIN 5-500 MG OR TABS Route: Oral Si TABLET PM Dispense: Refill: 3. HYDROCHLOROTHIAZIDE 25 MG OR TABS Route: Oral Si TAB PO QD (Once per day) Dispense: 90 Refill: 3 4. EFFEXOR XR 75 MG OR CP24 Route: Oral Si caps daily with food Dispense: Refill: 5. NEXIUM 40 MG OR CPDR Route: Oral Si CAPSULE DAILY Dispense: 90 Refill: 3 6. LIPITOR 10 MG OR TABS Route: Si tab PO QD (Once per day) Dispense: 90 Refill: 1 REVIEW OF SYSTEMS: CONSTITUTIONAL: NEGATIVE for fever, [...] changes in mood or affect OBJECTIVE: BP 120/60 Pulse 68 Wt 213 lbs (96.6kg) LMP Postmenopausal GENERAL: ALERT, NO DISTRESS NECK: SUPPLE, THYROID NORMAL, CAROTIDS 2+ BILATERALLY WITHOUT BRUITS LUNGS: CLEAR HEART: NSR WITHOUT MURMURS OR GALLOPS ABDOMEN: SOFT, NONTENDER, NO MASSES, NORMAL BOWEL SOUNDS EXTREMETIES: some EDEMA, varicose veins on right leg A/P: 401.1 BENIGN HYPERTENSION (primary encounter diagnosis) Note: Plan: HYDROCHLOROTHIAZIDE 25 MG OR TABS 782.3 EDEMA Note: Plan: VICODIN 5-500 MG OR TABS, HYDROCHLOROTHIAZIDE 25 MG OR TABS 706.2 SEBACEOUS CYST Note: Plan: CONSULT SURGERY 454.9 ASYMPTOMATIC VARICOSE VEINS Note: Plan: CONSULT SURGERY 311 DEPRESSIVE DISORDER NEC Note: Plan: EFFEXOR XR 75 MG OR CP24 272.2 MIXED HYPERLIPIDEMIA Note: Plan: LIPITOR 10 MG OR TABS 530.81 ESOPHAGEAL REFLUX Note: Plan: NEXIUM 40 MG OR CPDR More than 25 minutes was spent with this patient, more than half spent in education and counseling. If ordered, I have discussed with the patient the risks, benefits, and treatment options of prescribed medications or other treatment modalities. I have instructed the patient to call or schedule a follow-up appointment for any problems or failure to improve. documented in this encounter Nursing Notes 03/28/2005 10:00 AM CDT >> JAMEE CHUN 03/28/2005 10:11 am Vielka Snyder presents for medication review and refills. Initial BP 120/60 Pulse 68 Wt 213 lbs (96.6kg) LMP Postmenopausal Estimated Body Mass Index is34.89 kg/(m^2) as calculated from: Height of 5' 5.5 (1.664m) as of 01/23/05 Weight of 213 lbs (96.616 kg) as of this encounter . BP completed using cuff size: ortega Chun LPN documented in this encounter Plan of Treatment Not on filedocumented as of this encounter Procedures Procedure Name Priority Date/Time Associated Diagnosis Comme nts ZZ CONSULT SURGERY Routine 08/30/2005 Sebaceous Cyst Asymptomatic Varicose Veins documented in this encounter Results CONSULT SURGERY (08/30/2005) Narrative This result has an attachment that is no t available. Isaac Mason REFERRAL documented in this encounter Visit Diagnoses Diagnosis Essential hypertension, benign - Primary Edema Sebaceous cyst Asymptomatic varicose veins Depressive disorder, not elsewhere class ified Mixed hyperlipidemia Esophageal reflux documented in this encounter Care Teams Livestock Exhibitor Relationship Specialty Start Date End Date Nader Garibay MD PCP - General 01/01/02 10/16/17 documented as of this encounter
--- OUTSIDE RECORDS SUMMARY | 2022-10-07 10:53 | XMS_ITS | Encounter Summary ---
:1935 Author Organization [facility] Address [address] [place] [address] Care Team Providers Name Role Phone Nader Garibay MD Primary Care Provider Encounter Details Date Type Department Care Team Description 01/28/2005 Historic Results INTERFACED REPORT Interface, Aury samayoa [...] Diagnosis Comme nts EKG 12 LEAD Routine 01/28/2005 12:20 PM Results for this TAILERCPA procedure are i n the results section . documented in this encounter Results EKG 12 LEAD (01/28/2005 12:20 PM TAILERCPA) Component Value Ref Range Test Analysis Performed Pathologis t Method Time At Signature Ventricular Rate 56 BPM RADIOLOGY RESULTS Atrial Rate 56 BPM RADIOLOGY RESULTS ID Interval 176 ms RADIOLOGY RESULTS QRS Duration 86 ms RADIOLOGY RESULTS QT 442 ms RADIOLOGY RESULTS QTc 426 ms RADIOLOGY RESULTS P Ida 18 degrees RADIOLOGY RESULTS R AXIS 15 degrees RADIOLOGY RESULTS T Ida 31 degrees RADIOLOGY RESULTS Interpretation SINUS RHYTHM RADIOLOGY ECG OTHERWISE NORMAL ECG RESULTS WHEN COMPARED WITH ECG OF 03-OCT-2000 16:35, NO SIGNIFICANT CHANGE WAS FOUND Specimen Anatomical Collection Method Collection Time Receive d Time (Source) Location / / Volume Laterality 01/28/2005 12:20 01/29/2005 1:33 PM TAILERCPA PM TAILERCPA Transcripton Interface ECG ORDERABLES Performing Organization Address City/State/ZIP Code Phon e Number RADIOLOGY RESULTS documented in this encounter Visit Diagnoses Not on filedocumented in this encounter Care Teams Information Systems Project Manager Relationship Specialty Start Date End Date Nader Garibay MD PCP - General 01/01/02 10/16/17 documented as of this encounter
--- OUTSIDE RECORDS SUMMARY | 2022-10-07 10:53 | XMS_ITS | Encounter Summary ---
:1935 Author Organization [place] Address [address] [place] [address]. [place] [address] Care Team Providers Name Role Phone Nader Garibay MD Primary Care Provider Encounter Details Date Type Department Care Team Description 02/04/[address] [facility] Tomas Eckert (Medical Review Specialist) Clinic [place] MD Ivan [address] ORTHOPEDICS [address] [phone] [place], [place] [id number] Social History Tobacco Use Types Packs/Day Years Used Date Smoking Tobacco: Never Alcohol Use Standard Drinks/Week Comments Yes 0 (1 standard drink = 0.6 oz pure alcoho l) SELDOM Sex Assigned at Date Recorded Not on file documented as of this encounter Progress Notes Tomas Eckert - 02/04/2005 11:59 PM BOILER INSTALLER PRINCIPAL DIAGNOSIS: Osteoarthritis, right hip. PROCEDURE PERFORMED THIS ADMISSION: Right total hip replacement. SECONDARY DIAGNOSES: 1. Prior history of deep vein thrombosis. 2. Blood loss anemia. 3. Depression. 4. Hyperlipidemia. 5. Gastroesophageal reflux disease. HOSPITAL COURSE: Annia Snyder was admitted on the day of surgery. She underwent an uneventful total hip replacement. She was started on Lovenox postoperatively and also patient controlled analgesic device. On the third postoperative day we began switching her over to Coumadin. Will need to keep her on Coumadin for a prolonged period of time because she has a previous history of deep vein thrombosis as documented in her preoperative history and physical. She has done reasonably well in therapy. Her wound looks fine. She has been afebrile. She is progressing in therapy. MEDICATIONS: As listed in the transfer summary. I specifically noted in the senior care transfer summary that this patient needs to go home on Coumadin. FOLLOW-UP: Follow-up will be arranged in my office. TOMAS ECKERT JR, [place]: [facility] [place]: [id number] [place], [place] Name: ANNIA SNYDER Please refer to the Nursing Discharge Information Sheet for more detailed information regarding diet, physical activity limitations, medications and other pertinent instructions given to this patient upon discharge. DISCHARGE SUMMARY Page 2 of 1 LCN: 55 DSC: 01/31/2005 [place], [place] Name: ANNIA SNYDER MR#: : Admit Date: -77 1935 01/28/2005 Doctor: TOMAS ECKERT JR, MD Please refer to the Nursing Discharge Information Sheet for more detailed information regarding diet, physical activity limitations, medications and other pertinent instructions given to this patient upon discharge. DISCHARGE SUMMARY Page 1 of 1 ER INSTALLER documented in this encounter Plan of Treatment Not on filedocumented as of this encounter Visit Diagnoses Not on filedocumented in this encounter Care Teams Wheel Of Fortune Dealer Relationship Specialty Start Date End Date Nader Garibay MD PCP - General 01/01/02 10/16/17 documented as of this encounter
--- OUTSIDE RECORDS SUMMARY | 2022-10-07 10:53 | XMS_ITS | Encounter Summary ---
:1935 Author Organization [facility] Address [address] [place] [address]. [place] [address] Care Team Providers Name Role Phone Nader Garibay MD Primary Care Provider Reason for Visit Reason Comments Blood Draw Encounter Details Date Type Department Care Team Description 05/07/[address] [facility] Jennifer Mason Blood Draw [place] [phone] Social History Tobacco Use Types Packs/Day Years Used Date Smoking Tobacco: Never Alcohol Use Standard Drinks/Week Comments Yes 0 (1 standard drink = 0.6 oz pure alcoho l) SELDOM Sex Assigned at Date Recorded Not on file documented as of this encounter Miscellaneous Notes Telephone Encounter - 05/07/2004 11:59 PM CDT >> GAEL MEDINA FriMay 07, 2004 1:45 PM Lab ordered. >> CEFERINO GUY FriMay 07, 2004 1:28 PM ok to order but lab results need to go to #8, please >> GAEL MEDINA FriMay 07, 2004 1:26 PM >> CALL RECEIVED. Contact: pt Pt needs to do cholesterol test for dr mason had recently been in er her glucose was elevated 1 34, she would like to do a fasting glucose also ok to order??? documented in this encounter Plan of Treatment Not on filedocumented as of this encounter Visit Diagnoses Diagnosis Laboratory examination - Primary documented in this encounter Care Teams Oil Rag Washer Relationship Specialty Start Date End Date Nader Garibay MD PCP - General 01/01/02 10/16/17 documented as of this encounter
--- OUTSIDE RECORDS SUMMARY | 2022-10-07 10:53 | XMS_ITS | Encounter Summary ---
:1935 Author Organization [facility] Address [address] [place] [address] Care Team Providers Name Role Phone Nader Garibay MD Primary Care Provider Reason for Referral - Closed Specialty Diagnoses / Procedures Referred By Contact Refer red To Contact Diagnoses Generalized hyperhidrosis Other malaise and fatigue [facility] [address] [phone] Referral ID Status Reason Start Date Expiration Date Visits Requ ested Visits Authorized [id number] Closed 08/07/2004 11/16/2011 1 1 Encounter Details Date Type Department Care Team Description 08/07/2004 Orders Only [facility] [place], HYPERHIDRO SIS; [facility] Isaac Schwartz OTHER MAL AISE AND FATIGUE [facility] [address] [phone] Social History Tobacco Use Types Packs/Day Years Used Date Smoking Tobacco: Never Alcohol Use Standard Drinks/Week Comments Yes 0 (1 standard drink = 0.6 oz pure alcoho l) SELDOM Sex Assigned at Date Recorded Not on file documented as of this encounter Plan of Treatment Not on filedocumented as of this encounter Visit Diagnoses Diagnosis Generalized hyperhidrosis Other malaise and fatigue documented in this encounter Care Teams Order To Delivery Supervisor Relationship Specialty Start Date End Date Nader Garibay MD PCP - General 01/01/02 10/16/17 documented as of this encounter
--- OUTSIDE RECORDS SUMMARY | 2022-10-07 10:53 | XMS_ITS | Encounter Summary ---
:1935 Author Organization [facility] Address [address] [place] [address]. [place] [address] Care Team Providers Name Role Phone Nader Garibay MD Primary Care Provider Encounter Details Date Type Department Care Team Description 02/22/2005 Orders Only [facility] DIAGNOSIS NOT YET [facility] [place] Isaac LAMB ( Primary Dx) [place] [address] [phone] Social History Tobacco Use Types Packs/Day Years Used Date Smoking Tobacco: Never Alcohol Use Standard Drinks/Week Comments Yes 0 (1 standard drink = 0.6 oz pure alcoho l) SELDOM Sex Assigned at Date Recorded Not on file documented as of this encounter Plan of Treatment Not on filedocumented as of this encounter Procedures Procedure Name Priority Date/Time Associated Diagnosis Comme [facility] X-RAY FEMUR 2 VIEWS Routine 02/22/2005 DIAGNOSIS NOT YET DEFINED documented in this encounter Results X-RAY FEMUR (02/22/2005) Anatomical Region Laterality Modality Other Narrative This result has an attachment that is no t available. Isaac Mason GENERAL IMAGING documented in this encounter Visit Diagnoses Diagnosis DIAGNOSIS NOT YET DEFINED - Primary documented in this encounter Care Teams Library Services Assistant Relationship Specialty Start Date End Date Nader Garibay MD PCP - General 01/01/02 10/16/17 documented as of this encounter
--- OUTSIDE RECORDS SUMMARY | 2022-10-07 10:53 | XMS_ITS | Encounter Summary ---
:1935 Author Organization [facility] Address [address] [place] [address] Care Team Providers Name Role Phone Nader Garibay MD Primary Care Provider Encounter Details Date Type Department Care Team Description 01/28/2005 Historic Results INTERFACED REPORT Tomas Eckert MD [facility] [address] [place] [address] (Wo rk) Social History Tobacco [...] Priority Date/Time Associated Comments Diagnosis INR Routine 01/28/2005 10:00 Results for this AM ADDICTION COUNSELOR procedure are i n the results section. PARTIAL THROMBOPLASTIN Routine 01/28/2005 10:00 R esults for this TIME AM ADDICTION COUNSELOR procedure are i n the results section. CROSSMATCH RED CELLS Routine 01/28/2005 10:00 Res ults for this AM ADDICTION COUNSELOR procedure are i n the results section. BASIC METABOLIC PANEL Routine 01/28/2005 10:00 Re sults for this AM ADDICTION COUNSELOR procedure are i n the results section. documented in this encounter Results (ABNORMAL) Basic metabolic panel (01/28/2005 10:00 AM ADDICTION COUNSELOR) P athologist Signature Sodium 143 133 - 144 MISYS mmol/L Potassium 3.6 3.4 - 5.3 MISYS mmol/L Chloride 99 94 - 109 MISYS mmol/L Carbon Dioxide 34 (H) 20 - 32 MISYS mmol/L Glucose 99 60 - 110 MISYS mg/dL Urea Nitrogen 24 7 - 30 MISYS mg/dL Creatinine 1.21 0.60 - MISYS 1.30 mg/dL GFR Estimate 47 (L) >60 MISYS mL/min/1.7 m2 GFR Estimate If 57 (L) >60 MISYS Black mL/min/1.7 m2 Calcium 9.9 8.5 - 10.4 MISYS mg/dL Anion Gap 9 6 - 17 MISYS mmol/L Specimen Anatomical Collection Method Collection Time Receive d Time (Source) Location / / Volume Laterality 01/28/2005 10:00 01/28/2005 AM ADDICTION COUNSELOR 10:26 AM ADDICTION COUNSELOR Tomas Eckert MD LAB - BLOOD ORDERABLES Performing Organization Address [facility] Phon e Number MISYS INR (01/28/2005 10:00 AM ADDICTION COUNSELOR) P athologist Signature INR 0.98 0.86 - 1.14 MISYS Specimen Anatomical Collection Method Collection Time Receive d Time (Source) Location / / Volume Laterality 01/28/2005 10:00 01/28/2005 AM ADDICTION COUNSELOR 10:42 AM ADDICTION COUNSELOR Tomas Eckert MD LAB - BLOOD ORDERABLES Performing Organization Address [facility] Code Phon e Number MISYS Partial thromboplastin time (01/28/2005 10:00 AM ADDICTION COUNSELOR) P athologist Signature PTT 31 22 - 37 sec MISYS Specimen Anatomical Collection Method Collection Time Receive d Time (Source) Location / / Volume Laterality 01/28/2005 10:00 01/28/2005 AM ADDICTION COUNSELOR 10:42 AM ADDICTION COUNSELOR Tomas Eckert MD LAB - BLOOD ORDERABLES Performing Organization Address City/[facility]/ZIP Code Phon e Number MISYS Crossmatch red cells (01/28/2005 10:00 AM ADDICTION COUNSELOR) Analysis Performed At Patho logist Time Signature ABO A MISYS RH(D) Neg MISYS Antibody Neg MISYS Screen Blood Red Cells MISYS Component Type Units Ordered 1 MISYS Specimen 01/31/2005 MISYS Expires Unit Number [id number] MISYS Blood Red Blood MISYS Component Type Cells Status of Unit REL FROM MISYS ALLOC Unit Number [id number] MISYS Blood Red Blood MISYS Component Type Cells Status of Unit REL FROM MISYS ALLOC Specimen Anatomical Collection Method Collection Time Receive d Time (Source) Location / / Volume Laterality 01/28/2005 10:00 01/28/2005 AM ADDICTION COUNSELOR 10:26 AM ADDICTION COUNSELOR Tomas Eckert MD LAB - BLOOD BANK PRODUCT O RDER Performing Organization Address City/State/ZIP Code Phon e Number MISYS documented in this encounter Visit Diagnoses Not on filedocumented in this encounter Care Teams Heat Treat Supervisor Relationship Specialty Start Date End Date Nader Garibay MD PCP - General 01/01/02 10/16/17 documented as of this encounter
--- OUTSIDE RECORDS SUMMARY | 2022-10-07 10:53 | XMS_ITS | Encounter Summary ---
:1935 Author Organization [facility] Address [address] [place] [address]. [place] [address] Care Team Providers Name Role Phone Nader Garibay MD Primary Care Provider Encounter Details Date Type Department Care Team Description 01/28/2005 Results Only [facility] Results MD Ivan [facility] [address] [place] [address] [place], [place] [phone] (Wo rk) Social History Tobacco Use Types Packs/Day Years Used Date Smoking Tobacco: Never Alcohol Use Standard Drinks/Week Comments Yes 0 (1 standard drink = 0.6 oz pure alcoho l) SELDOM Sex Assigned at Date Recorded Not on file documented as of this encounter Plan of Treatment Not on filedocumented as of this encounter Procedures Procedure Name Priority Date/Time Associated Diagnosis Comme [facility] X-RAY PELVIS 1-2 Routine 01/28/2005 3:15 PM Re sults for this VIEWS MANAGER SYSTEM procedure are i n the results section. documented in this encounter Results X-RAY PELVIS 1 VW (01/28/2005 3:15 PM MANAGER SYSTEM) Anatomical Region Laterality Modality Other Specimen (Source) Anatomical Collection Method Collection Time Re ceived Time Location / / Volume Laterality 01/28/2005 3:15 PM MANAGER SYSTEM Impressions 02/01/2005 11:30 AM MANAGER SYSTEM PORTABLE AP PELVIS ?? HISTORY: ??Evaluate instrumentation. ?? FINDINGS: ??A single film is obtained af ter a right total hip prosthetic replacement. ??Components are in excellent alignment. ?? Excellent seating. ??There is a soft tis mandeep drain or two in the operative site post procedure. Tomas Eckert MD GENERAL IMAGING documented in this encounter Visit Diagnoses Not on filedocumented in this encounter Care Teams Electrical Assembly Supervisor Relationship Specialty Start Date End Date Nader Garibay MD PCP - General 01/01/02 10/16/17 documented as of this encounter
--- OUTSIDE RECORDS SUMMARY | 2022-10-07 10:53 | XMS_ITS | Encounter Summary ---
:1935 Author Organization [place] Address [address] [place] [address]. [place] [address] Care Team Providers Name Role Phone Nader Garibay MD Primary Care Provider Encounter Details Date Type Department Care Team Description 08/01/[address] [facility] Heart Unknown, [facility] ider [address] [place] [address] Social History Tobacco Use Types [...] Comme nts ECHO CARDIAC - HIM SCAN 08/01/2004 12:00 AM CDT - ARCHIVE documented in this encounter Results ECHO CARDIAC - HIM SCAN - ARCHIVE (08/01/2004 12:00 AM CDT) Anatomical Region Laterality Modality Echocardiography Specimen (Source) Anatomical Location Collection Method / Collectio n Time Received Time / Laterality Volume 08/01/2004 Narrative This result has an attachment that is no t available. Provider Scan CV ECHO ORDERABLES documented in this encounter Visit Diagnoses Not on filedocumented in this encounter Care Teams Associate Web Developer Relationship Specialty Start Date End Date Nader Garibay MD PCP - General 01/01/02 10/16/17 documented as of this encounter
--- OUTSIDE RECORDS SUMMARY | 2022-10-07 10:53 | XMS_ITS | Encounter Summary ---
:1935 Author Organization [place] Address [address] [place] [address]. [place] [address] Care Team Providers Name Role Phone Nadre Garibay MD Primary Care Provider Reason for Visit Reason Comments Refill Request Encounter Details Date Type Department Care Team Description 01/04/2005 Office Visit [facility] [place], BENIGN HYP ERTENSION (Primary Dx); [facility] [place] Isaac Schwartz ESOPHAGEA L REFLUX; [place] EDEMA [address] [address] Social History Tobacco Use Types Packs/Day Years Used Date Smoking Tobacco: Never Alcohol Use Standard Drinks/Week Comments Yes 0 (1 standard drink = 0.6 oz pure alcoho l) SELDOM Sex Assigned at Date Recorded Not on file documented as of this encounter Last Filed Vital Signs Vital Sign Reading Time Taken Comments Blood Pressure 150/60 01/04/2005 11:15 AM CHRISTMAS TREE [employer]ARM [employer] BOSS Pulse 78 01/04/2005 11:15 AM [employer] Temperature - - Respiratory Rate - - Oxygen Saturation - - Inhaled Oxygen Concentration - - Weight 102 kg (224 lb 12.8 oz) 01/04/2005 11:15 AM [employer] Height 14 cm (5.5) 01/04/2005 11:15 AM [employer] Body Mass Index 5224.85 01/04/2005 11:15 AM [employer]OSS documented in this encounter Progress Notes Isaac Mason - 01/04/2005 11:21 AM CST SUBJECTIVE: Vielka Snyder is seen in followup. She needs a refill of maxide, which she was taking for edema but has no edema for 2 weeks despite being on her feet. She attributes the benefit to taking a herbal supplement which is supposed to be good for the liver,and she thought this would be good since she is taking lipitor. 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] EDEMA[782.3] DEPRESSIVE DISORDER NEC[311] ESOPHAGEAL REFLUX[530.81] MIXED HYPERLIPIDEMIA[272.2] OTHER UNSPEC SLEEP APNEA[780.57] OBESITY NOS[278.00] Review of patient's past surgical history indicates: DELIVERY ONLY Comment: , Low Cervical,X2 DILATION/CURETTAGE,DIAGNOSTIC Comment: X3 IN HER 50s APPENDECTOMY 1950 Allergies As of Date: 01/04/2005 Noted Reaction IBUPROFEN 09/27/2002 TETRACYCLINE 09/28/2002 Date Reviewed: 01/04/2005 1. EFFEXOR XR 75 MG OR CP24 Route: Oral Si caps daily with food Dispense: Refill: 2. BEXTRA 20 MG OR TABS Route: Si TABLET DAILY Dispense: 90 Refill: 3 3. NEXIUM 40 MG OR CPDR Route: Si CAPSULE DAILY Dispense: 90 Refill: 3 4. ASPIRIN 81 MG OR TABS Route: Oral Si tab po QD (Once per day) Dispense: 100 Refill: 3 5. TRIAMTERENE-HCTZ 75-50 MG OR TABS Route: Si TABLET DAILY Dispense: 90 Refill: 3 REVIEW OF [...] changes in mood or affect OBJECTIVE: BP 150/60 Pulse 78 Ht 0' 5.5 (0.00m) Wt 224 lbs 12.8 oz (102.0kg) LMP Postmenopausal GENERAL: ALERT, NO DISTRESS NECK: SUPPLE, THYROID NORMAL, CAROTIDS 2+ BILATERALLY WITHOUT BRUITS LUNGS: CLEAR HEART: NSR WITHOUT MURMURS OR GALLOPS ABDOMEN: SOFT, NONTENDER, NO MASSES, NORMAL BOWEL SOUNDS EXTREMETIES: NO EDEMA, A/P: 401.1 BENIGN HYPERTENSION (primary encounter diagnosis) Note: on review of chart, on maxide she had nl bps Plan: HYDROCHLOROTHIAZIDE 25 MG OR TABS, POTASSIUM 530.81 ESOPHAGEAL REFLUX Note: Plan: NEXIUM 40 MG OR CPDR 782.3 EDEMA Note: Plan: hctz More than 25 minutes was spent with this patient, more than half spent in education and counseling. If ordered, I have discussed with the patient the risks, benefits, and treatment options of prescribed medications or other treatment modalities. I have instructed the patient to call or schedule a follow-up appointment for any problems or failure to improve. S [employer] documented in this encounter Nursing Notes 01/04/2005 11:15 AM CST >> JAMEE CHUN 01/04/2005 11:17 am Vielka Snyder presents for medication refills. Initial BP 150/60 Pulse 78 Ht 0' 5.5 (0.00m) Wt 224 lbs 12.8 oz (102.0kg) LMP Postmenopausal Body Mass Index is 5202.50 kg/(m^2). . BP completed using cuff size: large Jamee Chun RIGHT OF WAY CUTTER.. documented in this encounter Plan of Treatment Not on filedocumented as of this encounter Procedures Procedure Name Priority Date/Time Associated Diagnosis Comme nts HCL POTASSIUM Routine 01/04/2005 11:40 AM Benign Hypertension Results for this [employer] procedure are i n the results section . documented in this encounter Results POTASSIUM (01/04/2005 11:40 AM [employer]) P athologist Signature Potassium 4.2 3.4 - 5.3 [facility] mmol/L CLINIC LAB Specimen Anatomical Collection Method Collection Time Receive d Time (Source) Location / / Volume Laterality 01/04/2005 11:40 01/04/2005 AM [employer] 11:45 AM [employer] Isaac Mason LABORATORY Performing Organization Address City/State/ZIP Code Phon e Number [facility] [address] [place] [address] [facility] documented in this encounter Visit Diagnoses Diagnosis Essential hypertension, benign - Primary Esophageal reflux Edema documented in this encounter Care Teams Credit Risk Specialist Relationship Specialty Start Date End Date Nader Garibay MD PCP - General 01/01/02 10/16/17 documented as of this encounter
--- OUTSIDE RECORDS SUMMARY | 2022-10-07 10:53 | XMS_ITS | Encounter Summary ---
:1935 Author Organization [place] Address [address] [place] [address] Care Team Providers Name Role Phone Nader Garibay MD Primary Care Provider Reason for Visit Reason Comments Stress Echo Encounter Details Date Type Department Care Team Description 08/01/2004 Office Visit [facility] Joshua Morales, HYPERH IDROSIS; [facility] OTHER MALAISE AND FATIGUE [address] [phone] Social History Tobacco Use Types Packs/Day Years Used Date Smoking Tobacco: Never Alcohol Use Standard Drinks/Week Comments Yes 0 (1 standard drink = 0.6 oz pure alcoho l) SELDOM Sex Assigned at Date Recorded Not on file documented as of this encounter Last Filed Vital Signs Vital Sign Reading Time Taken Comments Blood Pressure 112/62 08/01/2004 8:34 AM CDT Pulse 70 08/01/2004 8:34 AM CDT Temperature - - Respiratory Rate - - Oxygen Saturation - - Inhaled Oxygen Concentration - - Weight - - Height - - Body Mass Index - - documented in this encounter Progress Notes 08/01/2004 8:00 AM CDT TEST: STRESS ECHOCARDIOGRAM DATE OF TEST: 08/01/2004 LOCATION: [facility] PATIENT NAME: Vielka Snyder CHART NUMBER: [id number] BIRTHDATE: 1935 REFERRING PHYSICIAN: Isaac Mason MD INDICATION: excessive sweating with exertion RISK FACTORS: family history CVD and obesity SUPERVISING PHYSICIAN: Joshua Morales MD Consent obtained: Yes Prior stress test reviewed: No Antihypertensive therapy: yes Beta daniel use: No Aspirin use: Yes RESULTS: Resting BP: 114/62 Resting pulse: 69 Target/Maximal exercise pulse based on age: 154 Baseline EKG: normal Baseline Echo (prelim): normal, no wall motion abnormalities Standard Bryan protocol was used. Patient exercised for a total of 6 minutes, 51 seconds. Test discontinued due to patient general fatigue Maximal pulse reached: 91% Maximal BP reached: 138/60 ST segment changes with exercise: none Symptoms during test: deconditioning Ectopy during test: occasional PVC's Post-exercise EKG changes: none Post-exercise Echo changes (prelim): none Medications administered: none ASSESSMENT: STRESS EKG CONCLUSION: NEGATIVE CARDIAC STRESS TEST WITH NOTED DECONDITIONING. FINAL ECHO CONCLUSION: pending at time of test. FURTHER RECOMMENDATIONS AT TIME OF TEST: None documented in this encounter Nursing Notes 08/01/2004 8:00 AM CDT >> MARIA LUISA MCKINNON 08/01/2004 9:05 am Vielka Jocelyn Igorkyle presents for stress test. Initial BP 112/62 Pulse 70 LMP Postmenopausal completed using BP cuff size: large. Pt here for Stress Echo. Test explained, questions answered. Patient read and signed consent forms. Maria Luisa Mckinnon RN. documented in this encounter Plan of Treatment Not on filedocumented as of this encounter Procedures Procedure Name Priority Date/Time Associated Diagnosis Comme nts STRESS ECHO (METRO) Routine 08/01/2004 Hyperhidrosi s Results for this Other Malaise And procedure are in the Fatigue results section . documented in this encounter Results STRESS ECHO (METRO) (08/01/2004) Anatomical Region Laterality Modality Other Narrative This result has an attachment that is no t available. Isaac Mason SPECIAL IMAGING STUDIES documented in this encounter Visit Diagnoses Diagnosis Generalized hyperhidrosis Other malaise and fatigue documented in this encounter Care Teams Ore Trimmer Relationship Specialty Start Date End Date Nader Garibay MD PCP - General 01/01/02 10/16/17 documented as of this encounter
--- OUTSIDE RECORDS SUMMARY | 2022-10-07 10:53 | XMS_ITS | Encounter Summary ---
:1935 Author Organization [facility] Address [address] [place] [address]. [place] [address] Care Team Providers Name Role Phone Nader Garibay MD Primary Care Provider Reason for Referral - Closed Specialty Diagnoses / Procedures Referred By Contact Refer red To Contact Diagnoses Primary localized osteoarthrosis, lower leg Enthesopathy of hip region [facility] [address] [phone] Referral ID Status Reason Start Date Expiration Date Visits Requ ested Visits Authorized [id number] Closed 05/18/2004 11/16/2011 1 1 Reason for Visit Reason Comments RECHECK Refill Request lipitor Encounter Details Date Type Department Care Team Description 05/18/2004 Office Visit [facility] [place], DEPRESSIVE DISORDER NEC (Primary Dx); [facility] Isaac Schwartz MIXED HYP ERLIPIDEMIA; [place] LOC PRIM OSTEOART-L/LEG; [address] [place] [address] Social History Tobacco Use Types Packs/Day Years Used Date Smoking Tobacco: Never Alcohol Use Standard Drinks/Week Comments Yes 0 (1 standard drink = 0.6 oz pure alcoho l) SELDOM Sex Assigned at Date Recorded Not on file documented as of this encounter Last Filed Vital Signs Vital Sign Reading Time Taken Comments Blood Pressure 104/60 05/18/2004 8:15 AM CDT Pulse 76 05/18/2004 8:15 AM CDT Temperature - - Respiratory Rate - - Oxygen Saturation - - Inhaled Oxygen Concentration - - Weight 107.5 kg (237 lb) 05/18/2004 8:15 AM CDT Height - - Body Mass Index 39.44 11/03/2002 11:00 AM MANAGER OF REVENUE documented in this encounter Progress Notes 05/18/2004 8:15 AM CDT SUBJECTIVE: Vielka Snyder is seen with a complaint of feeling very tired. Had lab work today. No t working now, but looking for work. She had a normal tsh last year. Has not felt better with any antidepressant, but others have noted she is not the same with out it. 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] EDEMA[782.3] DEPRESSIVE DISORDER NEC[311] ESOPHAGEAL REFLUX [530.81] MIXED HYPERLIPIDEMIA[272.2] OTHER UNSPEC SLEEP APNEA[780.57] OBESITY NOS[278.00] Rev iew of patient's past surgical history indicates: DELIVERY ONLY Comment: , Low Cervical,X2 DILATION/CURETTAGE,DIAGNOSTIC Comment: X3 IN HER 50s APPENDECTOMY 1950 .A LL Meds as of 05/18/2004: VIVEK ASPIRIN 325 MG OR TABS 1 TABLET EVERY 4 TO 6 HOURS NEEDED GAS RELIE F 125 MG OR CAPS phyazyme LIPITOR 10 MG OR TABS 1 tab PO QD (Once per day) BEXTRA 20 MG OR TABS 1 TAB LET DAILY TRIAMTERENE-HCTZ 75-50 MG OR TABS 1 TABLET DAILY NEXIUM 40 MG OR CPDR 1 CAPSULE DAILY EFFEX OR XR 150 MG OR CP24 1 CAPSULE DAILY WITH FOOD REVIEW OF SYSTEMS: CONSTITUTIONAL: NEGATIVE for fe tommy, chills, change in weight, generally feels well. EYES: NEGATIVE for vision changes or irritation and corrected vision ENT/MOUTH: NEGATIVE for ear, mouth and throat problems RESP: NEGATIVE for sig nificant cough or SOB BREAST: NEGATIVE for masses, tenderness or discharge CV: NEGATIVE for chest p ain, palpitations or peripheral edema GI: NEGATIVE for nausea, abdominal pain, heartburn, or change in bowel habits : NEGATIVE for frequency, dysuria, nocturia, hematuria, or incontinence MUSCULOSKE LATAL: NEGATIVE for significant arthralgias or myalgia SKIN: NEGATIVE for worrisome skin lesions, or rashes. NEURO: NEGATIVE for weakness, dizziness or paresthesias ENDOCRINE: NEGATIVE for temperatu re intolerance, skin/hair changes HEME/ALLERGY/IMMUNE: NEGATIVE for bleeding problems PSYCHIATRIC: NEGATIVE for changes in mood or affect OBJECTIVE: REPEAT BP: GENERAL: ALERT, NO DISTRESS NECK: SUPPLE, THYROID NORMAL, CAROTIDS 2+ BILATERALLY WITHOUT BRUITS LUNGS: CLEAR HEART: NSR WITHOUT MURMUR S OR GALLOPS ABDOMEN: SOFT, NONTENDER, NO MASSES, NORMAL BOWEL SOUNDS EXTREMETIES: NO EDEMA, tender r ight trochanter A/P: 311 DEPRESSIVE DISORDER NEC (primary encounter diagnosis) Note: Plan: incr e ffexor to 225 mgm 272.2 MIXED HYPERLIPIDEMIA Note: Plan: lipitor 715.16 LOC PRIM OSTEOART-L/LEG N ote: right Plan: CONSULT ORTHOPEDIC GENERAL 726.5 ENTHESOPATHY OF HIP Note: right Plan: CO NSULT ORTHOPEDIC GENERAL More than 25 minutes was spent with this patient, more than half spent in education and counseling. If ordered, I have discussed with the patient the risks, antony efits, and treatment options of prescribed medications or other treatment modalities. I have instruc denae the patient to call or schedule a follow-up appointment for any problems or failure to improve. documented in this encounter Nursing Notes 05/18/2004 8:15 AM CDT >> MACY FLORES 05/18/2004 7:58 am Vielka Snyder presents for follow up on medications. She also needs a refill request on Lipitor. She also c/o being fatigued all the time. Initial BP 104/60 Pulse 76 Wt 237 lbs (107.5kg) LMP Postmenopausal completed using BP cuff size: large. Macy Flores MA documented in this encounter Plan of Treatment Not on filedocumented as of this encounter Procedures Procedure Name Priority Date/Time Associated Diagnosis Comme nts ZZ CONSULT ORTHOPEDIC Routine 08/09/2008 Primary Localize d GENERAL Osteoarthrosis, Lower Leg Enthesopathy of Hip Region documented in this encounter Results CONSULT ORTHOPEDIC GENERAL (08/09/2008) Narrative This result has an attachment that is no t available. Isaac Mason REFERRAL documented in this encounter Visit Diagnoses Diagnosis Depressive disorder, not elsewhere class ified - Primary Mixed hyperlipidemia Primary localized osteoarthrosis, lower leg Enthesopathy of hip region documented in this encounter Care Teams Sheet Layer Relationship Specialty Start Date End Date Wycoff, Nader Bro, MD PCP - General 01/01/02 10/16/17 documented as of this encounter
--- OUTSIDE RECORDS SUMMARY | 2022-10-07 10:53 | XMS_ITS | Encounter Summary ---
:1935 Author Organization [place] Address [address] [place] [address] Care Team Providers Name Role Phone Nader Garibay MD Primary Care Provider Reason for Referral Specialty Diagnoses / Procedures Referred By Contact Refer red To Contact [facility] [address] [phone] Referral ID Status Reason Start Date Expiration Date Visits Requ ested Visits Authorized Encounter Details Date Type Department Care Team Description 07/03/2005 Orders Only [facility] [place], DIAGNOSIS NOT YET Clinic [place] Isaac LAMB ( Primary Dx) [place] [address] [phone] Social History Tobacco Use Types [...] Date/Time Associated Diagnosis Comme nts ZZ CONSULT RHEUMATOLOGY Routine 08/27/2005 DIAGNOSIS NOT YET DEFINED documented in this encounter Results CONSULT RHEUMATOLOGY (08/27/2005) Narrative This result has an attachment that is no t available. Isaac Mason REFERRAL documented in this encounter Visit Diagnoses Diagnosis DIAGNOSIS NOT YET DEFINED - Primary documented in this encounter Care Teams Repairer Veneer Sheet Relationship Specialty Start Date End Date Nader Garibay MD PCP - General 01/01/02 10/16/17 documented as of this encounter
--- OUTSIDE RECORDS SUMMARY | 2022-10-07 10:53 | XMS_ITS | Encounter Summary ---
:1935 Author Organization [place] Address [address] [place] [address] Care Team Providers Name Role Phone Nader Garibay MD Primary Care Provider Encounter Details Date Type Department Care Team Description 01/30/2005 Historic Results INTERFACED REPORT Tomas Eckert MD [facility] [address] [place] [address] (Wo rk) Social History Tobacco [...] Name Priority Date/Time Associated Diagnosis Comme nts PLATELET COUNT Routine 01/30/2005 7:55 AM Results for this SENIOR ACCOUNT CLERK procedure are i n the results section . HEMOGLOBIN Routine 01/30/2005 7:55 AM Results f or this SENIOR ACCOUNT CLERK procedure are i n the results section . documented in this encounter Results (ABNORMAL) Hemoglobin (01/30/2005 7:55 AM SENIOR ACCOUNT CLERK) P athologist Signature Hemoglobin 9.9 (L) 11.7 - 15.7 MISYS g/dL Specimen (Source) Anatomical Collection Method Collection Time Re ceived Time Location / / Volume Laterality 01/30/2005 7:55 AM 5 SENIOR ACCOUNT CLERK Tomas Eckert MD LAB - BLOOD ORDERABLES Performing Organization Address City/State/[facility] Code Phon e Number MISYS Platelet count (01/30/2005 7:55 AM SENIOR ACCOUNT CLERK) P athologist Signature Platelet Count 175 150 - 450 MIS[facility] 10e9/L Specimen (Source) Anatomical Collection Method Collection Time Re ceived Time Location / / Volume Laterality 01/30/2005 7:55 AM 5 SENIOR ACCOUNT CLERK Tomas Eckert MD LAB - BLOOD ORDERABLES Performing Organization Address City/State/ZIP Code Phon e Number MISYS documented in this encounter Visit Diagnoses Not on filedocumented in this encounter Care Teams Cigar Tobacco Processing Supervisor Relationship Specialty Start Date End Date Nader Garibay MD PCP - General 01/01/02 10/16/17 documented as of this encounter
--- OUTSIDE RECORDS SUMMARY | 2022-10-07 10:53 | XMS_ITS | Encounter Summary ---
:1935 Author Organization [place] Address [address] [place] [address]. [place] [address] Care Team Providers Name Role Phone Nader Garibay MD Primary Care Provider Reason for Visit Reason Onset Date Comments Formulary Issue 06/18/2005 RE: Nexium Encounter Details Date Type Department Care Team Description 06/18/2005 Telephone [facility] Isaac Maosn For mulary Issue (RE: Clinic [facility] Nexium) [address] [phone] Social History Tobacco Use Types Packs/Day Years Used Date Smoking Tobacco: Never Alcohol Use Standard Drinks/Week Comments Yes 0 (1 standard drink = 0.6 oz pure alcoho l) SELDOM Sex Assigned at Date Recorded Not on file documented as of this encounter Miscellaneous Notes Telephone Encounter - Ophelia Ramirez - 07/02/2005 9:15 AM CDT Comment: Nexium has been approved from 06/18/05 till 06/18/06. Telephone Encounter - Ophelia Ramirez - 06/25/2005 11:29 AM CDT Effexor refill was already done by Dr Mason. Not needed. Still holding for PAapproval on Nexium. Telephone Encounter - Terrance Navarro - 06/25/2005 11:17 AM CDT rx left at front desk officer for pt to picket [employer]. Terrance Navarro CMA Telephone Encounter - Sheridan Shields - 06/24/2005 2:54 PM CDT Pt needs written rx (see med sheet) just leave at front desk officer will p/u here thurs. she is coming to clinic. Telephone Encounter - Ophelia Ramirez - 06/21/2005 3:04 PM CDT PA refaxed. Telephone Encounter - Ophelia Ramirez - 06/18/2005 2:19 PM CDT Nexium needs PA. [employer] PA completed and faxed. documented in this encounter Plan of Treatment Not on filedocumented as of this encounter Visit Diagnoses Diagnosis Depressive disorder, not elsewhere class ified - Primary documented in this encounter Care Teams Supervisor Acoustical Tile Carpenters Relationship Specialty Start Date End Date Nader Garibay MD PCP - General 01/01/02 10/16/17 documented as of this encounter
--- OUTSIDE RECORDS SUMMARY | 2022-10-07 10:53 | XMS_ITS | Encounter Summary ---
:1935 Author Organization [facility] Address [address] [place] [address] Care Team Providers Name Role Phone Nader Garibay MD Primary Care Provider Encounter Details Date Type Department Care Team Description 01/29/2005 Historic Results INTERFACED REPORT Tomas Eckert MD [facility] [address] [place] [address] (Wo rk) Social History Tobacco [...] Date/Time Associated Diagnosis Comme nts HEMOGLOBIN Routine 01/29/2005 7:04 AM Results f or this AWNING HANGER HELPER procedure are i n the results section . documented in this encounter Results (ABNORMAL) Hemoglobin (01/29/2005 7:04 AM AWNING HANGER HELPER) P athologist Signature Hemoglobin 9.9 (L) 11.7 - 15.7 MISYS g/dL Specimen (Source) Anatomical Collection Method Collection Time Re ceived Time Location / / Volume Laterality 01/29/2005 7:04 AM 5 AWNING HANGER HELPER Tomas Eckert MD LAB - BLOOD ORDERABLES Performing Organization Address City/State/ZIP Code Phon e Number MISYS documented in this encounter Visit Diagnoses Not on filedocumented in this encounter Care Teams Oil And Gas Field Technician Relationship Specialty Start Date End Date Nader Garibay MD PCP - General 01/01/02 10/16/17 documented as of this encounter
--- OUTSIDE RECORDS SUMMARY | 2022-10-07 10:53 | XMS_ITS | Encounter Summary ---
:1935 Author Organization [place] Address [address] [place] [address] Care Team Providers Name Role Phone Nader Garibay MD Primary Care Provider Reason for Referral Specialty Diagnoses / Procedures Referred By Contact Refer red To Contact [facility] [place] [address] [phone] Referral ID Status Reason Start Date Expiration Date Visits Requ ested Visits Authorized Encounter Details Date Type Department Care Team Description 02/10/2005 Orders Only [facility] [place], DIAGNOSIS NOT YET Clinic [place] Isaac LAMB ( Primary Dx) [place] [address] [phone] Social History Tobacco Use Types [...] Priority Date/Time Associated Diagnosis Comme nts ZZ CONSULTS GERIATRICS Routine 01/31/2005 DIAGNOSIS NOT Y ET DEFINED documented in this encounter Results CONSULT GERIATRICS (01/31/2005) Narrative This result has an attachment that is no t available. Isaac Mason REFERRAL documented in this encounter Visit Diagnoses Diagnosis DIAGNOSIS NOT YET DEFINED - Primary documented in this encounter Care Teams Licensed Psychologist Manager Relationship Specialty Start Date End Date Nader Garibay MD PCP - General 01/01/02 10/16/17 documented as of this encounter
--- OUTSIDE RECORDS SUMMARY | 2022-10-07 10:53 | XMS_ITS | Encounter Summary ---
:1935 Author Organization [place] Address [address] [place] [address]. [place] [address] Care Team Providers Name Role Phone Nader Garibay MD Primary Care Provider Encounter Details Date Type Department Care Team Description 09/14/2004 Historic Results [facility] Heart Unknown, [facility] ider [address] [place] [address] Social History Tobacco Use Types [...] Diagnosis Comme nts NUCLEAR CARDIAC - HIM 09/14/2004 12:00 AM CDT SCAN - ARCHIVE documented in this encounter Results NUCLEAR CARDIAC - HIM SCAN - ARCHIVE (09/14/2004 12:00 AM CDT) Anatomical Region Laterality Modality Other Specimen (Source) Anatomical Location Collection Method / Collectio n Time Received Time / Laterality Volume 09/14/2004 Narrative This result has an attachment that is no t available. Provider Scan IMG [place] ORDERABLES documented in this encounter Visit Diagnoses Not on filedocumented in this encounter Care Teams Service Desk Technician Relationship Specialty Start Date End Date Nader Garibay MD PCP - General 01/01/02 10/16/17 documented as of this encounter
--- OUTSIDE RECORDS SUMMARY | 2022-10-07 10:53 | XMS_ITS | Encounter Summary ---
:1935 Author Organization [facility] Address [address] [place] [phone] Care Team Providers Name Role Phone Nader Garibay MD Primary Care Provider Encounter Details Date Type Department Care Team Description 03/01/2005 Orders Only [facility] [place], AFTERCARE FOLLOWING Clinic [place] Isaac Schwartz JOINT REP LACEMENT [place] (Primary Dx) [address] [phone] Social History Tobacco Use Types Packs/Day Years Used Date Smoking Tobacco: Never Alcohol Use Standard Drinks/Week Comments Yes 0 (1 standard drink = 0.6 oz pure alcoho l) SELDOM Sex Assigned at Date Recorded Not on file documented as of this encounter Plan of Treatment Not on filedocumented as of this encounter Procedures Procedure Name Priority Date/Time Associated Diagnosis Comme [facility] MD CERTIFICATION [facility] Routine 02/09/2005 Aftercare Follow ing Joint PATIENT Replacement documented in this encounter Results MD CERTIFICATION [facility] PATIENT (02/09/2005) Specimen (Source) Anatomical Location Collection Method / Collectio n Time Received Time / Laterality Volume 02/09/2005 Narrative This result has an attachment that is no t available. Isaac Mason SPECIAL REPORTS documented in this encounter Visit Diagnoses Diagnosis Aftercare following joint replacement - Primary documented in this encounter Care Teams Sandwich And Drink Cart Operator Relationship Specialty Start Date End Date Nader Garibay MD PCP - General 01/01/02 10/16/17 documented as of this encounter
--- OUTSIDE RECORDS SUMMARY | 2022-10-07 10:54 | XMS_ITS | Encounter Summary ---
:1935 Author Organization [facility] Address [address] [place] [address]. [place] [address] Care Team Providers Name Role Phone Nader Garibay MD Primary Care Provider Reason for Visit Reason Comments RECHECK routine med ck, needs refill s pt is fasting for labs Encounter Details Date Type Department Care Team Description 02/21/2003 Office Visit [facility] [place], DEPRESSIVE DISORDER NEC (Primary Dx); Clinic [facility] J ESOPHAGEA L REFLUX; [place] MIXED HYPERLIPIDEMIA; [address] EDEMA; [place], [place] LOC PRIM OST EOART-L/LEG; [id number] SCREENING-PULMONARY TB; [phone] SKIN DISORDERS NEC Social History Tobacco Use Types Packs/Day Years Used Date Smoking Tobacco: Never Alcohol Use Standard Drinks/Week Comments Yes 0 (1 standard drink = 0.6 oz pure alcoho l) SELDOM Sex Assigned at Date Recorded Not on file documented as of this encounter Last Filed Vital Signs Vital Sign Reading Time Taken Comments Blood Pressure 122/64 02/21/2003 7:30 AM CDT Pulse 76 02/21/2003 7:30 AM CDT Temperature - - Respiratory Rate - - Oxygen Saturation - - Inhaled Oxygen Concentration - - Weight 112 kg (247 lb) 02/21/2003 7:30 AM CDT Height - - Body Mass Index 41.1 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 She nee ds refills on her wellbutrin, celebrex, and tmt./hctz, and prilosec. She is due for lipid panel, alt , glucose. Generally doing well, but felt emotionally exhausted last week. 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 Requires a mantoux. Patient Active Problem List: LOC PRIM OSTEOART-L/LEG [715.16] EDEMA[782.3] DEPRESSIVE DISORDER NEC[311] ESOPHAGEAL REFLUX[530.81] MIXED HYPERLIPID EMIA[272.2] OTHER UNSPEC SLEEP APNEA[780.57] OBESITY NOS[278.00] Review of patient's past surgi libia history indicates: DELIVERY ONLY Comment: C-Se ction, Low Cervical,X2 DILATION/CURETTAGE,DIAGNOSTIC Comment: X3 I N HER 50s APPENDECTOMY 1948 .all Meds as of 02/21/2003: [place] ILOSEC 20 MG OR CPDR 1 TAB PO bid CELEBREX 200 MG OR CAPS 1 bid WELLBUTRIN SR 150 MG OR TBCR 1 TABLET TWICE DAILY MECLIZINE HCL 25 MG OR CAPS 1 TABLET 3 TIMES DAILY ZOCOR 10 MG OR TABS 1 TAB PO QD (Once per day) IN THE EVENING TRIAMTERENE-HCTZ 75-50 MG OR TABS 1 TABLET DAILY REVIEW OF SYSTEMS: CONST ITUTIONAL: NEGATIVE for fever, chills, change in weight, generally feels well. EYES: NEGATIVE for v ision changes or irritation and corrected vision ENT/MOUTH: NEGATIVE for ear, mouth and throat probl ems RESP: NEGATIVE for significant cough or SOB BREAST: NEGATIVE for masses, tenderness or discharg e CV: NEGATIVE for chest pain, palpitations or peripheral edema GI: NEGATIVE for nausea, abdominal pain, heartburn, or change in bowel habits : NEGATIVE for frequency, dysuria, nocturia, hematuria, or incontinence MUSCULOSKELATAL: NEGATIVE for significant arthralgias or myalgia SKIN: NEGATIVE for worrisome skin lesions, or rashes. NEURO: NEGATIVE for weakness, dizziness or paresthesias ENDOCRI NE: NEGATIVE for temperature intolerance, skin/hair changes HEME/ALLERGY/IMMUNE: NEGATIVE for bleed ing problems PSYCHIATRIC: as above OBJECTIVE: REPEAT BP: GENERAL: ALERT, NO DISTRESS, obese NE CK: SUPPLE, THYROID NORMAL, CAROTIDS 2+ BILATERALLY WITHOUT BRUITS LUNGS: CLEAR HEART: NSR WITHOUT MU RMURS OR GALLOPS ABDOMEN: SOFT, NONTENDER, NO MASSES, NORMAL BOWEL SOUNDS EXTREMETIES: NO EDEMA, FOOT EXAM: NO LESIONS,MONOFILAMENT TESTING NORMAL A/P: 311 DEPRESSIVE DISORDER NEC (primary encounter diagnosis) Note: Plan: ALANINE AMINO (ALT) (SGPT), GLUCOSE wellbutrin 530.81 ESOPHAGEAL REFL UX Note: Plan: prilosec 272.2 MIXED HYPERLIPIDEMIA Note: Plan: ALANINE AMINO (ALT) (SGPT), A.M.A. LIPID PANEL, GLUCOSE, POTASSIUM zocor 782.3 EDEMA Note: Plan: POTASSIUM tmt/hctZ refilled 715.16 LOC PRIM OSTEOART-L/LEG Note: Plan: celebrex mantoux for work fu 6 mos documented in this encounter Nursing Notes 02/21/2003 7:30 AM CDT >> SANA DHALIWAL 02/21/2003 7:32 am SANA DHALIWAL MA documented in this encounter Plan of Treatment Not on filedocumented as of this encounter Procedures Procedure Name Priority Date/Time Associated Diagnosis Comme nts HCL TSH Routine 02/21/2003 8:47 AM Skin Disorders Nec Res ults for this CDT procedure are i n the results section. HCL POTASSIUM Routine 02/21/2003 8:47 AM Edema Results for this CDT Mixed Hyperlipidemia procedu re are in the results section. HCL GLUCOSE Routine 02/21/2003 8:47 AM Mixed Hyperli pidemia Results for this CDT Depressive Disorder Nec proc edure are in the results section. HCL ALT Routine 02/21/2003 8:47 AM Mixed Hyperli pidemia Results for this CDT Depressive Disorder Nec proc edure are in the results section. CL AFF A.M.A. Routine 02/21/2003 8:47 AM Mixed Hyperlipidemia Results for this LIPID PANEL CDT procedure are i n the results section. documented in this encounter Results TSH (02/21/2003 8:47 AM CDT) P athologist Signature TSH 3.24 0.4 - 5.0 [facility] mU/L CLINIC LAB Specimen Anatomical Collection Method Collection Time Receive d Time (Source) Location / / Volume Laterality 02/21/2003 8:47 AM 3 8:52 CDT AM CDT Isaac Mason LABORATORY Performing Organization Address City/State/ZIP Code Phon e Number [facility] [address] [place] [phone] [facility] POTASSIUM (02/21/2003 8:47 AM CDT) P athologist Signature Potassium 3.7 3.4 - 5.3 [facility] mmol/L [facility] Specimen Anatomical Collection Method Collection Time Receive d Time (Source) Location / / Volume Laterality 02/21/2003 8:47 AM 3 8:52 CDT AM CDT Isaac Mason LABORATORY Performing Organization Address City/[facility]/ZIP Code Phon e Number [facility] [address] [place] [phone] [facility] (ABNORMAL) GLUCOSE (02/21/2003 8:47 AM CDT) athologist Signature Glucose 123 (H) 60 - 115 [place] mg/dL [facility] Specimen Anatomical Collection Method Collection Time Receive d Time (Source) Location / / Volume Laterality 02/21/2003 8:47 AM 3 8:52 CDT AM CDT Isaac Mason LABORATORY Performing Organization Address City/[facility]/ZIP Code Phon e Number [facility] [address] [place] [phone] [facility] A.M.A. LIPID PANEL (02/21/2003 8:47 AM CDT) P athologist Signature Cholesterol 189 <200 mg/dL [facility] Comment: Cholesterol Reference Range: <200 ??The NCEP recommends further ? evaluation of: ? 1. ??Patients with cholesterol ? greater than 200 mg/dL ? if additional risk facto rs ? are present. ? 2. ??All patients with a ? cholesterol greater than ? 240 mg/dL. Triglycerides 136 <150 mg/dL [facility] HDL Cholesterol 46 >40 mg/dL [facility] LDL Cholesterol Calculated 115 <130 mg/dL [facility] VLDL-Cholesterol 27 0 - 30 mg/dL [facility] Cholesterol/HDL Ratio 4 0 - 5 [facility] Specimen Anatomical Collection Method Collection Time Receive d Time (Source) Location / / Volume Laterality 02/21/2003 8:47 AM 3 8:52 CDT AM CDT Isaac Mason LABORATORY Performing Organization Address City/State/ZIP Code Phon e Number [facility] [address] [place] [phone] [facility] (ABNORMAL) ALANINE AMINO (ALT) (SGPT) (02/21/2003 8:47 AM CDT) P athologist Signature ALT 58 (H) 0 - 50 U/L [facility] Specimen Anatomical Collection Method Collection Time Receive d Time (Source) Location / / Volume Laterality 02/21/2003 8:47 AM 3 8:52 CDT AM CDT Isaac Mason LABORATORY Performing Organization Address City/State/ZIP Code Phon e Number [facility] [address] [place] [phone] [facility] documented in this encounter Visit Diagnoses Diagnosis Depressive disorder, not elsewhere class ified - Primary Esophageal reflux Mixed hyperlipidemia Edema Primary localized osteoarthrosis, lower leg Screening examination for pulmonary tube rculosis Other specified disorder of skin documented in this encounter Care Teams Tissue Technician Relationship Specialty Start Date End Date Nader Garibay MD PCP - General 01/01/02 10/16/17 documented as of this encounter
--- OUTSIDE RECORDS SUMMARY | 2022-10-07 10:54 | XMS_ITS | Encounter Summary ---
:1935 Author Organization [place] Address [address] [place] [address]. [place] [address] Care Team Providers Name Role Phone Nader Garibay MD Primary Care Provider Reason for Visit Reason Comments Sinus Problem Encounter Details Date Type Department Care Team Description 10/26/2002 Telephone [facility] Jennifer Mason lp J Sinus Problem [address] [phone] Social History Tobacco Use Types Packs/Day Years Used Date Smoking Tobacco: Never Alcohol Use Standard Drinks/Week Comments Yes 0 (1 standard drink = 0.6 oz pure alcoho l) SELDOM Sex Assigned at Date Recorded Not on file documented as of this encounter Miscellaneous Notes Telephone Encounter - 10/26/2002 11:59 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 >> TIKI MASON [facility] Oct 28, 2002 9:24 AM RXS FAXED-RJR >> GAEL MEDINA [facility] Oct 26, 2002 9:18 AM >> CALL RECEIVED. Contact: Pt. has sinus problem x 2 weeks, dark green drainage, post nasal drain. feels it has gone into inner ear, she is dizzy. Feels it is chronic, had z-pack in past and would need antivert also. documented in this encounter Plan of Treatment Not on filedocumented as of this encounter Visit Diagnoses Not on filedocumented in this encounter Care Teams Camera Person Relationship Specialty Start Date End Date Nader Garibay MD PCP - General 01/01/02 10/16/17 documented as of this encounter
--- OUTSIDE RECORDS SUMMARY | 2022-10-07 10:54 | XMS_ITS | Encounter Summary ---
:1935 Author Organization [facility] Address [address] [place] [address]. [place] [address] Care Team Providers Name Role Phone Nader Garibay MD Primary Care Provider Reason for Referral - Closed Specialty Diagnoses / Procedures Referred By Contact Refer red To Contact Diagnoses Sprain of lumbar region [facility] [address] [phone] Referral ID Status Reason Start Date Expiration Date Visits Requ ested Visits Authorized [id number] Closed 05/27/2003 11/16/2011 1 1 Reason for Visit Reason Comments Musculoskeletal Problem pain in left hip, onset x 2. 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 Tiki GARCIA BLOOD CHEMISTRY NEC; [place] SPRAIN LUMBAR REGION; [address] MIXED HYPERLIPIDEMIA; [place], [place] OTHER UNSPEC SLEEP APNEA; [phone] OBESITY NOS; [phone] ESOPHAGEAL REFL UX; DEPRESSIVE DISO RDER NEC; EDEMA Social History Tobacco Use Types Packs/Day Years Used Date Smoking Tobacco: Never Alcohol Use Standard Drinks/Week Comments Yes 0 (1 standard drink = 0.6 oz pure alcoho l) SELDOM Sex Assigned at Date Recorded Not on file documented as of this encounter Last Filed Vital Signs Vital Sign Reading Time Taken Comments Blood Pressure 128/70 05/27/2003 9:15 AM CDT Pulse 64 05/27/2003 9:15 AM CDT Temperature - - Respiratory Rate - - Oxygen Saturation - - Inhaled Oxygen Concentration - - Weight 111.6 kg (246 lb) 05/27/2003 9:15 AM CDT Height - - Body Mass Index 40.94 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 LMP: No LMP date recorded. Reason: Postmenopausal. HPI: Hx left buttock/hip pain for past 2 1/2 weeks, hurts with standing, sitting the best, lying down occ has some discomfort. She was seen in urgent and rxd norflex. Injured when metal gazebor on her deck was being blown about and she str uggled to secure it. She has a hx of an elevated blood sugar. Patient Active Problem List: L OC PRIM OSTEOART-L/LEG[715.16] EDEMA[782.3] DEPRESSIVE DISORDER NEC[311] ESOPHAGEAL REFLUX[530. 81] MIXED HYPERLIPIDEMIA[272.2] OTHER UNSPEC SLEEP APNEA[780.57] OBESITY NOS[278.00] Current prescriptions: NORFLEX 100 MG OR TBCR 1 tab bid DARVOCET-N 100 100-650 MG OR TABS 1 TABLET EVERY 4 H OURS NEEDED PRILOSEC 20 MG OR CPDR 1 TAB PO bid CELEBREX 200 MG OR CAPS 1 bid WELLBUTRIN SR 150 MG OR TBCR 1 TABLET TWICE DAILY TRIAMTERENE-HCTZ 75-50 MG OR TABS 1 TABLET DAILY MECLIZINE HCL 25 MG OR CAPS 1 TABLET 3 TIMES DAILY ZOCOR 10 MG OR TABS 1 TAB PO QD (Once per day) IN THE EVENING Review of patient's allergies indicates: Ibuprofen in large quantities- personality change Tetracycline Social History Marital Status: Spouse Name: Years of Education: Number of children: Social History Ma in Topics Tobacco Use: Never Alcohol Use: Yes Comment: SELDOM Drug Use: Not Asked Sexually Active: Not Asked Other Topics Concern None on file Socia l History Narrative None on file Review of patient's family history indicates: Stroke Mother Comment: D ; AGE 88 Cancer Fathe r Comment: D ; AGE 59 LUNG CANCER Cancer Sister Comment: KIDNEY Gynecology Sister Comment: E NDOMETRIOSIS Family History Negative Sister Cancer Paternal Grandmother Comment: OVARIAN Heart Paternal Grandfather Comment: [place] Depression Son REVIEW OF SYSTEMS: CONSTITU TIONAL:NEGATIVE for fever, chills, change in weight INTEGUMENTARY/SKIN: NEGATIVE for worrisome rashes , moles or lesions EYES: NEGATIVE for vision changes or irritation ENT/MOUTH: NEGATIVE for ear, mouth and throat problems RESP:NEGATIVE for significant cough or SOB BREAST: NEGATIVE for masses, tenderne ss or discharge CV: NEGATIVE for chest pain, palpitations or peripheral edema GI: NEGATIVE for nausea , abdominal pain, heartburn, or change in bowel habits :NEGATIVE for frequency, dysuria, or hematur ia MUSCULOSKELETAL:see pi, arthritic pains in knees NEURO: NEGATIVE for weakness, dizziness or parest hesias ENDOCRINE: NEGATIVE for temperature intolerance, skin/hair changes HEME/ALLERGY/IMMUNE: NEGATI VE for bleeding problems PSYCHIATRIC: NEGATIVE for changes in mood or affect EXAM: BP 128/70 Pulse 64 Wt 246 lbs (111.585 kg) LMP Postmenopausal GENERAL APPEARANCE: healthy, alert and no distress EYES: Eyes grossly normal to inspection, fundi benign-no diabetic or hypertensive changes seen and PERRL HENT: ear canals and TM's normal and nose and mouth without ulcers or lesions NECK: no adenopat hy, no asymmetry, masses, or scars and thyroid normal to palpation RESP: lungs clear to auscultation - no rales, rhonchi or wheezes BREAST: normal without masses, tenderness or nipple discharge and no p alpable axillary masses or adenopathy CV: regular rates and rhythm, normal S1 S2, no S3 or S4 and no murmur, click or rub LYMPHATICS: normal ant/post cervical, axillary, supraclavicular and inguinal nod es ABDOMEN: soft, nontender, without hepatosplenomegaly or masses and bowel sounds normal : normal cervix, adnexae, and uterus without masses or discharge and rectal exam normal without masses-guaiac negative stool MS: tenderness left buttock area/ slr positive at 80 degrees on left, anjum sym dtrs, to e dorsiflexion ok SKIN: no suspicious lesions or rashes NEURO: Normal strength and tone, sensory exam grossly normal, mentation intact and speech normal PSYCH: mentation appears normal. and affect francheska l/bright ASSESSMENT/IMPRESSION: V70.0 ROUTINE MEDICAL EXAM (primary encounter diagnosis) Note : Plan: A THIN LAYER PAP SCREEN 790.6 ABN BLOOD CHEMISTRY NEC Note: Plan: GLUCOSE, HEMOGLOB IN A1C, OFFICE/OUTPT VISIT,EST,LEVL II 847.2 SPRAIN LUMBAR REGION Note: rule out herni ated disc, etc Plan: CONSULT [facility] PT-OT (NON-I.A.M), OFFICE/OUTPT VISIT,EST,LEVL II FLEXER IL, VICODIN, FU ONE MONTH 272.2 MIXED HYPERLIPIDEMIA 780.57 OTHER UNSPEC SLEEP APNEA 278.00 OBESITY NOS 530.81 ESOPHAGEAL REFLUX 782.3 EDEMA MEDICATION REFILLED, If ordered, I have discussed wi th the patient the risks, benefits, and treatment options of prescribed medications or other treatmen t modalities. I have instructed the patient to call or schedule a follow-up appointment for any prob lems or failure to improve. documented in this encounter Nursing Notes 05/27/2003 9:15 AM CDT >> JAMEE CHUN 05/27/2003 9:12 am BP cuff size: large documented in this encounter Plan of Treatment Not on filedocumented as of this encounter Procedures Procedure Name Priority Date/Time Associated Comments Diagnosis ZZ CONSULT [facility] PT-OT Routine 07/13/2003 Sprain Lumbar (NON-I.A.M) Region HCL GLYCATED Routine 05/27/2003 10:10 AM Abn Blood Chemistry R esults for this HEMOGLOBIN CDT Nec procedure are i n the results section. HCL GLUCOSE Routine 05/27/2003 10:10 AM Abn Blood Chemistry R esults for this CDT Nec procedure are i n the results section. HCL PAP THIN LAYER Routine 05/27/2003 12:00 AM Routine Medical Results for this SCREEN CDT Exam procedure are i n the results section. documented in this encounter Results CONSULT [facility] PT-OT (NON-I.A.M) (07/13/2003) Narrative This result has an attachment that is no t available. Tiki Mason REFERRAL HEMOGLOBIN A1C (05/27/2003 10:10 AM CDT) P athologist Signature Hemoglobin A1C 5.7 4.3 - 6.0 [facility] Specimen Anatomical Collection Method Collection Time Receive d Time (Source) Location / / Volume Laterality 05/27/2003 10:10 05/27/2003 AM CDT 10:15 AM CDT Tiki Mason LABORATORY Performing Organization Address City/State/ZIP Code Phon e Number [facility] [address] [place] [phone] [facility] GLUCOSE (05/27/2003 10:10 AM CDT) P athologist Signature Glucose 93 60 - 115 [facility] mg/dL CLINIC LAB Specimen Anatomical Collection Method Collection Time Receive d Time (Source) Location / / Volume Laterality 05/27/2003 10:10 05/27/2003 AM CDT 10:15 AM CDT Tiki Mason LABORATORY Performing Organization Address City/[facility]/ZIP Code Phon e Number [facility] [address] [place] [phone] [facility] A THIN LAYER PAP SCREEN (05/27/2003 12:00 AM CDT) Component Value Ref Test Analysis Performed At [facility] gist Range Method Time Signature Copath Report Patient Name: ANNIA SNYDER MR#: [id number] Specimen #: [id number] Collected: 05/27/03 Received: 05/30/03 Reported: 06/01/03 14:19 Ordering Phy(s): TIKI MASON SPECIMEN/STAIN PROCESS: Pap thin layer prep screening ? Pap-Cyto x 1, Reflex HPV x 1 SOURCE: Cervical, endocervical ---- Pap thin layer prep screening SPECIMEN ADEQUACY: Satisfactory for evaluation. -Transitional zone component present. CYTOLOGIC INTERPRETATION: Negative for Intraepithelial Lesion or Malignancy Electronically signed out by: ROCIO Templeton (ASCP) Processed and screened at [facility] CLINICAL HISTORY: LMP: NOT GIVEN Post Menopausal, Previous abnormal pap: 05/14/02, Specimen (Source) Anatomical Collection Method Collection Time Re ceived Time Location / / Volume Laterality 05/27/2003 05/30/2003 10:2 5 AM CDT Tiki Mason LABORATORY Performing Organization Address City/State/ZIP Code Phon e Number [facility] documented in this encounter Visit Diagnoses Diagnosis Routine general medical examination at a health care facility - Primary Other abnormal blood chemistry Sprain of lumbar region Mixed hyperlipidemia Unspecified sleep apnea Obesity, unspecified Esophageal reflux Depressive disorder, not elsewhere class ified Edema documented in this encounter Care Teams Signal Timer Relationship Specialty Start Date End Date Nader Garibay MD PCP - General 01/01/02 10/16/17 documented as of this encounter
--- OUTSIDE RECORDS SUMMARY | 2022-10-07 10:54 | XMS_ITS | Encounter Summary ---
:1935 Author Organization [facility] Address [address] [place] [address]. [place] [address] Care Team Providers Name Role Phone Nader Garibay MD Primary Care Provider Reason for Visit Reason Comments Injury and pain in left buttocks Encounter Details Date Type Department Care Team Description 05/23/2003 Telephone [facility] Jennifer Mason [address] [phone] Social History Tobacco Use Types Packs/Day Years Used Date Smoking Tobacco: Never Alcohol Use Standard Drinks/Week Comments Yes 0 (1 standard drink = 0.6 oz pure alcoho l) SELDOM Sex Assigned at Date Recorded Not on file documented as of this encounter Miscellaneous Notes Telephone Encounter - 05/23/2003 11:59 PM CDT >> SEVEN Amaya May 24, 2003 4:47 PM pt will come 9:15 friday am and order fasting glucose then with any other labs. pt agreed.Sakina Armas RN >> TIKI Amaya May 24, 2003 4:29 PM PAIN MAY BE NEUROPATHIC IE SCIATICA, CAN WORK PT IN TO MY SCHEDULE, >> SONIA TAYLOR FriMay 23, 2003 1:13 PM >> COMPLETED ON FriMay 23, 2003 1:17 PM >> CALL RECEIVED. Contact: Pt. calling states from injury 10 days ago has not improved. Pain continues severe in left buttocks like a knife stabbing. States pain is present when walks, better when sitti ng. Pt. is questioning if muscle could be torn rather than pulled? Pt. has not had any x-rays or MRI's Pt. states taking Muscle relaxants bid and pain med bid and really doesn't think either are helping. Pt. also checking if PT would be of help? 1) Dr. Mason advise/ See pt. this week? or PT or testing. Please let pt. know at home # Friday. documented in this encounter Plan of Treatment Not on filedocumented as of this encounter Visit Diagnoses Not on filedocumented in this encounter Care Teams Goring Cutter Relationship Specialty Start Date End Date Nader Garibay MD PCP - General 01/01/02 10/16/17 documented as of this encounter
--- OUTSIDE RECORDS SUMMARY | 2022-10-07 10:54 | XMS_ITS | Encounter Summary ---
:1935 Author Organization [facility] Address [address] [place] [address]. [place] [address] Care Team Providers Name Role Phone Nader Garibay MD Primary Care Provider Encounter Details Date Type Department Care Team Description 01/13/2004 Orders Only [facility] SCR EENING MAMM-MAILG [place] NEOPL-OTHER (Primary Dx) [address] [phone] Social History Tobacco Use [...] Diagnosis Comme nts C MAMMOGRAM, SCREENING Routine 01/13/2004 Screening Mamm-Deb lg Results for this Neopl-Other procedure are i n the results section . documented in this encounter Results MAMMOGRAM, SCREENING (01/13/2004) P athologist Signature MAMMOGRAM Anatomical Region Laterality Modality Mammography Impressions 01/13/2004 RADIOLOGIST'S INTERPRETATION: Breast parenchyma: ??heterogeneously den se IMAGING IMPRESSION: (CATEGORY-0) INCOMPLETE: Need additional imaging evaluation, recommend: additiona l mammographic views ? Lt. ? ultrasound - option Comments: 01-13-04 Vielka Snyder : 39 There are a few developing microcalcific ations noted in the left retroareolar area. Spot alo aden magnification views for further assessme nt of these calcifications is recommended including option of evaluating this region with ultrasound. The remainder of the fibronodular breast tissue otherwise is felt to be stable. ERIN BUENROSTRO M.D./alyssa D/T: 01-16-04 ATTENTION Radiologist: Erin Buenrostro M.D. ? JAN 16 2004 Electronically filed by Zoraida Trent ??01/17/2004 ??1:30 PM Isaac Mason SPECIAL IMAGING STUDIES documented in this encounter Visit Diagnoses Diagnosis Other screening mammogram - Primary documented in this encounter Care Teams Butter Printer Relationship Specialty Start Date End Date Nader Garibay MD PCP - General 01/01/02 10/16/17 documented as of this encounter
--- OUTSIDE RECORDS SUMMARY | 2022-10-07 10:54 | XMS_ITS | Encounter Summary ---
:1935 Author Organization [facility] Address [address] [place] [address] Care Team Providers Name Role Phone Nader Garibay MD Primary Care Provider Encounter Details Date Type Department Care Team Description 12/27/2003 Orders Only [facility] ABN ORMAL LIVER FUNCTION [facility] (Pr imary Dx) Laboratory [address] [phone] Social History Tobacco Use [...] Priority Date/Time Associated Diagnosis Comme nts HCL ALT Routine 12/27/2003 11:43 AM Abnormal Liver Result s for this FITNESS TRAINER Function Study procedure are in the results section . HCL AST Routine 12/27/2003 11:43 AM Abnormal Liver Result s for this FITNESS TRAINER Function Study procedure are in the results section . documented in this encounter Results ALANINE AMINO (ALT) (SGPT) (12/27/2003 11:43 AM FITNESS TRAINER) P athologist Signature ALT 42 0 - 50 U/L [facility] Specimen Anatomical Collection Method Collection Time Receive d Time (Source) Location / / Volume Laterality 12/27/2003 11:43 12/27/2003 AM FITNESS TRAINER 11:44 AM FITNESS TRAINER Isaac Mason LABORATORY Performing Organization Address City/State/ZIP Code Phon e Number [facility] [address] [address] [facility] AST (12/27/2003 11:43 AM FITNESS TRAINER) P athologist Signature AST 44 0 - 45 U/L [facility] Specimen Anatomical Collection Method Collection Time Receive d Time (Source) Location / / Volume Laterality 12/27/2003 11:43 12/27/2003 AM FITNESS TRAINER 11:44 AM FITNESS TRAINER Isaac Mason LABORATORY Performing Organization Address City/State/ZIP Code Phon e Number [facility] [address] [place] [address] [facility] documented in this encounter Visit Diagnoses Diagnosis Nonspecific abnormal results of liver fu nction study - Primary documented in this encounter Care Teams Brand Ambassadors Promotional Sales Relationship Specialty Start Date End Date Nader Garibay MD PCP - General 01/01/02 10/16/17 documented as of this encounter
--- OUTSIDE RECORDS SUMMARY | 2022-10-07 10:54 | XMS_ITS | Encounter Summary ---
:1935 Author Organization [place] Address [address] [place] [address]. [place] [address] Care Team Providers Name Role Phone Nader Garibay MD Primary Care Provider Encounter Details Date Type Department Care Team Description 03/28/2003 Orders Only [facility] Isabella, JOSE BLOOD CHEMISTRY [facility] [place] Isaac HESS (Prim levi Dx) [place] [address] [phone] Social History Tobacco Use Types Packs/Day Years Used Date Smoking Tobacco: Never Alcohol Use Standard Drinks/Week Comments Yes 0 (1 standard drink = 0.6 oz pure alcoho l) SELDOM Sex Assigned at Date Recorded Not on file documented as of this encounter Plan of Treatment Not on filedocumented as of this encounter Visit Diagnoses Diagnosis Other abnormal blood chemistry - Primary documented in this encounter Care Teams Protein Scientist Relationship Specialty Start Date End Date Nader Garibay MD PCP - General 01/01/02 10/16/17 documented as of this encounter
--- OUTSIDE RECORDS SUMMARY | 2022-10-07 10:54 | XMS_ITS | Encounter Summary ---
:1935 Author Organization [facility] Address [address] [place] [address]. [place] [address] Care Team Providers Name Role Phone Nader Garibay MD Primary Care Provider Reason for Visit Reason Comments Medication Question Encounter Details Date Type Department Care Team Description 10/03/[address] [facility] Jennifer Mason Medication Question [address] [phone] Social History Tobacco Use Types Packs/Day Years Used Date Smoking Tobacco: Never Alcohol Use Standard Drinks/Week Comments Yes 0 (1 standard drink = 0.6 oz pure alcoho l) SELDOM Sex Assigned at Date Recorded Not on file documented as of this encounter Miscellaneous Notes Telephone Encounter - 10/03/2003 11:59 PM CAN INSPECTOR >> LIBBY MCKINNON Fri Oct 14, 2003 3:10 PM Left message on pharm voice mail with below clarification and orders from Dr. Mason. Instructions left to call back to our nurse line if any further questions. >> TIKI MASON Wed Oct 12, 2003 6:22 PM ongoing gastroesophageal reflux sx/-prilosec could be used instead at 20 mgm bid. Effexor XR rx should be for 1 tab qam. qty 90, >> LUCÍA HORVATH Mon Oct 03, 2003 4:21 PM >> CALL RECEIVED. Contact: Christel#[phone] Mail-in pharm, needs your verbal justification for the Nexium before they will fill. Plz call at [phone]. Also the written RX for Effexor XR 150 mg was written for #180. If you wish for the pt. to be on only 1 tab daily of this as Rx indicates the will fill only #90. If you wish the dose to be 2 tabs daily which would provide for the #180 written, the pt will need a new RX ordering the 2 tabs daily. Which dose is accurate ? Plz advise. Lucía Horvath R.N. documented in this encounter Plan of Treatment Not on filedocumented as of this encounter Visit Diagnoses Not on filedocumented in this encounter Care Teams Warehouse Stocker Relationship Specialty Start Date End Date Nader Garibay MD PCP - General 01/01/02 10/16/17 documented as of this encounter
--- OUTSIDE RECORDS SUMMARY | 2022-10-07 10:54 | XMS_ITS | Encounter Summary ---
:1935 Author Organization [facility] Address [address] [place] [address]. [place] [address] Care Team Providers Name Role Phone Nader Garibay MD Primary Care Provider Reason for Visit Reason Comments Radiology Visit mammogram results Encounter Details Date Type Department Care Team Description [facility] (mammogra m results) [address] [phone] Social History Tobacco Use Types Packs/Day Years Used Date Smoking Tobacco: Never Alcohol Use Standard Drinks/Week Comments Yes 0 (1 standard drink = 0.6 oz pure alcoho l) SELDOM Sex Assigned at Date Recorded Not on file documented as of this encounter Miscellaneous Notes Telephone Encounter - 01/23/2004 11:59 PM ADULT BASIC STUDIES TEACHER Addended by: JAMEE CHUN on: 01/31/2004,2:14 PM Modules accepted: Order Summary Addended by: JAMEE CHUN on: 01/31/2004,2:12 PM Modules accepted: Order Summary >> RELL Amaya Jan 24, 2004 1:32 PM Referral made to [facility] radiology for diagnostic mammogram. Pt, informed that they should call her within 24 hours to schedule. # given for pt. to call them if she hasn't heard from crew schedulerSharon Jean RN >> TIKI Amaya Jan 24, 2004 1:21 PM I DON'T KNOW IF THAT IS POSSIBLE, USUA LLY DONE AT THE [facility] AT [facility]. PLEASE REFER TO [facility] IF THIS IS POSSIBLE, OTHERWISE FOR TO THE BREAST CENTER FOR DIAGNOSTIC FU INDICATED. >> RELL JEAN Mon Jan 23, 2004 9:26 A M >> CALL RECEIVED. Contact: patient [phone] call between 10 and 2 Pt. states she got her mamm ogram results recommending she have additional views with u/s done. She would prefer to go to [facility] [place] Has appt. with Dr. Mason on Friday. Fred Jean RN\ documented in this encounter Plan of Treatment Not on filedocumented as of this encounter Visit Diagnoses Diagnosis Nonspecific abnormal findings on radiolo gical or other examinations of the breast - Primary documented in this encounter Care Teams Tone Cabinet Assembler Relationship Specialty Start Date End Date Nader Garibay MD PCP - General 01/01/02 10/16/17 documented as of this encounter
--- OUTSIDE RECORDS SUMMARY | 2022-10-07 10:54 | XMS_ITS | Encounter Summary ---
:1935 Author Organization [facility] Address [address] [place] [address]. [place] [address] Care Team Providers Name Role Phone Nader Garibay MD Primary Care Provider Reason for Visit Reason Comments shallow laceration R foot Encounter Details Date Type Department Care Team Description 12/27/2003 Abstract [facility] Kp doty MD [place] RETIRED [phone] [place] [phone] Social History Tobacco Use Types Packs/Day Years Used Date Smoking Tobacco: Never Alcohol Use Standard Drinks/Week Comments Yes 0 (1 standard drink = 0.6 oz pure alcoho l) SELDOM Sex Assigned at Date Recorded Not on file documented as of this encounter Progress Notes 12/27/2003 11:59 PM ROLL FORMING MACHINE SET UP OPERATOR elevation Keflex 500 bid #14 x 1 f/u 01/02 This information has been abstracted from the urgent care chart. documented in this encounter Plan of Treatment Not on filedocumented as of this encounter Visit Diagnoses Not on filedocumented in this encounter Care Teams Living Supervisor Relationship Specialty Start Date End Date Nader Garibay MD PCP - General 01/01/02 10/16/17 documented as of this encounter
--- OUTSIDE RECORDS SUMMARY | 2022-10-07 10:54 | XMS_ITS | Encounter Summary ---
:1935 Author Organization [facility] Address [address] [place] [address] Care Team Providers Name Role Phone Nader Garibay MD Primary Care Provider Reason for Visit Reason Comments Sinus Problem Encounter Details Date Type Department Care Team Description 01/06/2004 Telephone [facility] Jennifer Mason J Sinus Problem [address] [phone] Social History Tobacco Use Types Packs/Day Years Used Date Smoking Tobacco: Never Alcohol Use Standard Drinks/Week Comments Yes 0 (1 standard drink = 0.6 oz pure alcoho l) SELDOM Sex Assigned at Date Recorded Not on file documented as of this encounter Miscellaneous Notes Telephone Encounter - 01/06/2004 11:59 PM SCIENCE EDUCATION PROFESSOR >> GAEL MEDINA FriJan 06, 2004 4:58 PM Pharm. called pt. advised. >> TIKI Ace Jan 06, 2004 4:44 PM please call in >> GAEL Ace Jan 06, 2004 3:58 PM Pt called again says she is now got greenish phelgm with streaks of blood, and her pharm closes at 5:30 tonight and wants rx please. >> LORRAINE Ace Jan 06, 2004 10:38 AM >> CALL RECEIVED. Contact: c/o sinus infection. sinus dayna, drainage. drainage into throat. laryngitis, coughing. headache, rin ging in ears. wondering if you would rx abo. onset 2 weeks. documented in this encounter Plan of Treatment Not on filedocumented as of this encounter Visit Diagnoses Not on filedocumented in this encounter Care Teams Machine Joint Cutter Relationship Specialty Start Date End Date Nader Garibay MD PCP - General 01/01/02 10/16/17 documented as of this encounter
--- OUTSIDE RECORDS SUMMARY | 2022-10-07 10:54 | XMS_ITS | Encounter Summary ---
:1935 Author Organization [facility] Address [address] [place] [address] Care Team Providers Name Role Phone Nader Garibay MD Primary Care Provider Reason for Visit Reason Comments Surgical Followup D & C on 09/29/02- no proble ms Encounter Details Date Type Department Care Team Description 11/03/2002 Office Visit [facility] Joshua Rodríguez POSTMENO PAUSAL BLEEDING [facility] MD [place] (Primary Dx) [place] NO INFO [address] [place] [phone] Social History Tobacco Use Types Packs/Day Years Used Date Smoking Tobacco: Never Alcohol Use Standard Drinks/Week Comments Yes 0 (1 standard drink = 0.6 oz pure alcoho l) SELDOM Sex Assigned at Date Recorded Not on file documented as of this encounter Last Filed Vital Signs Vital Sign Reading Time Taken Comments Blood Pressure 130/70 11/03/2002 11:00 AM STATE ARCHIVIST Pulse - - Temperature - - Respiratory Rate - - Oxygen Saturation - - Inhaled Oxygen Concentration - - Weight 112 kg (247 lb) 11/03/2002 11:00 AM STATE ARCHIVIST Height 165.1 cm (5' 5) 11/03/2002 11:00 AM STATE ARCHIVIST Body Mass Index 41.1 11/03/2002 11:00 AM STATE ARCHIVIST documented in this encounter Progress Notes 11/03/2002 11:00 AM STATE ARCHIVIST Vielka Snyder had a Fractional D&C, Diagnostic Hysteroscopy on 09/29/2002. Pathology - Endometrium - Inactive, no evidence of polyp, hyperplasia, or malignancy. Pathology discussed with patient. No complaints. Denies vaginal bleeding or discharge. BP 130/70 Ht 5' 5 (1.651m) Wt 247 lbs (112.03 8 kg) LMP No exam done. IMP: Normal post-op D&C. PLAN: F/U if any Vaginal Bleeding. Joshua eason M.D. documented in this encounter Plan of Treatment Not on filedocumented as of this encounter Visit Diagnoses Diagnosis Postmenopausal bleeding - Primary documented in this encounter Care Teams Mac Artist Relationship Specialty Start Date End Date Nader Garibay MD PCP - General 01/01/02 10/16/17 documented as of this encounter
--- OUTSIDE RECORDS SUMMARY | 2022-10-07 10:54 | XMS_ITS | Encounter Summary ---
:1935 Author Organization [facility] Address [address] [place] [address] Care Team Providers Name Role Phone Nader Garibay MD Primary Care Provider Encounter Details Date Type Department Care Team Description 01/31/2004 Results Only [facility] Jennifer Mason [address] [phone] Social History Tobacco Use [...] Name Priority Date/Time Associated Comments Diagnosis HC ULTRASOUND Routine 01/31/2004 8:48 AM Results for this BREAST(S) TRAFFIC CONTROL OPERATOR procedure are i n (UNILATERAL OR the results BILATERAL), REAL section. TIME W IMAGE C MAMMOGRAM, ONE Routine 01/31/2004 8:13 AM Resul ts for this BREAST TRAFFIC CONTROL OPERATOR procedure are i n the results section. documented in this encounter Results SONO BREAST (01/31/2004 8:48 AM TRAFFIC CONTROL OPERATOR) Anatomical Region Laterality Modality Other Specimen (Source) Anatomical Collection Method Collection Time Re ceived Time Location / / Volume Laterality 01/31/2004 8:48 AM TRAFFIC CONTROL OPERATOR Impressions 02/01/2004 2:03 PM TRAFFIC CONTROL OPERATOR DIAGNOSTIC MAMMOGRAM, LEFT - PATIENT/MD REQUEST LEFT BREAST ULTRASOUND BREAST SYMPTOMS: Call back from [facility]. PREVIOUS MAMMOGRAPHY: Comparison with [facility] dated 01/13/2004. BREAST PARENCHYMA: Heterogeneously dens e. Diagnostic mammogram shows some nodulari ty in the retroareolar portion of the left breast. Much of this was present on previous exams and is stable. Nothing worrisome f or malignancy on today's diagnostic mammogram. Ultrasound of the retroareolar portion o f the left breast shows a couple of small simple cysts. The exam i s otherwise unremarkable. IMPRESSION: CATEGORY 2 Benign finding(s) TECHNOLOGIST INITIALS: SW. Isaac Mason SPECIAL IMAGING STUDIES MAMMOGRAM, ONE BREAST (01/31/2004 8:13 AM TRAFFIC CONTROL OPERATOR) Anatomical Region Laterality Modality Other Specimen (Source) Anatomical Collection Method Collection Time Re ceived Time Location / / Volume Laterality 01/31/2004 8:13 AM TRAFFIC CONTROL OPERATOR Impressions 02/01/2004 2:03 PM TRAFFIC CONTROL OPERATOR DIAGNOSTIC MAMMOGRAM, LEFT - PATIENT/MD REQUEST LEFT BREAST ULTRASOUND BREAST SYMPTOMS: Call back from [facility]. PREVIOUS MAMMOGRAPHY: Comparison with [facility] dated 01/13/2004. BREAST PARENCHYMA: Heterogeneously dens e. Diagnostic mammogram shows some nodulari ty in the retroareolar portion of the left breast. Much of this was present on previous exams and is stable. Nothing worrisome f or malignancy on today's diagnostic mammogram. Ultrasound of the retroareolar portion o f the left breast shows a couple of small simple cysts. The exam i s otherwise unremarkable. IMPRESSION: CATEGORY 2 Benign finding(s) TECHNOLOGIST INITIALS: ÁNGEL. Isaac Mason SPECIAL IMAGING STUDIES documented in this encounter Visit Diagnoses Not on filedocumented in this encounter Care Teams Cloth Bin Packer Relationship Specialty Start Date End Date Nader Garibay MD PCP - General 01/01/02 10/16/17 documented as of this encounter
--- OUTSIDE RECORDS SUMMARY | 2022-10-07 10:54 | XMS_ITS | Encounter Summary ---
:1935 Author Organization [facility] Address [address] [place] [address]. [place] [address] Care Team Providers Name Role Phone Nader Garibay MD Primary Care Provider Encounter Details Date Type Department Care Team Description 09/29/2002 Orders Only [facility] [place], DIAGNOSIS NOT YET Clinic [place] Isaac LAMB ( Primary Dx) [place] [address] [phone] Social History Tobacco Use Types [...] Priority Date/Time Associated Diagnosis Comme nts HCL SURG PATH, LEVEL IV TC Routine 09/29/2002 DIAGNOSIS NOT YET DEFINED documented in this encounter Results SURG PATH,LEVEL IV (09/29/2002) Narrative This result has an attachment that is no t available. Isaac Mason LABORATORY documented in this encounter Visit Diagnoses Diagnosis DIAGNOSIS NOT YET DEFINED - Primary documented in this encounter Care Teams Organ Recovery Coordinator Relationship Specialty Start Date End Date Nader Garibay MD PCP - General 01/01/02 10/16/17 documented as of this encounter
--- OUTSIDE RECORDS SUMMARY | 2022-10-07 10:54 | XMS_ITS | Encounter Summary ---
:1935 Author Organization [facility] Address [address] [place] [address]. [place] [address] Care Team Providers Name Role Phone Nader Garibay MD Primary Care Provider Reason for Visit Reason Comments request for pain med Encounter Details Date Type Department Care Team Description 05/18/2003 Telephone [facility] Jennifer Mason [address] [phone] Social History Tobacco Use Types Packs/Day Years Used Date Smoking Tobacco: Never Alcohol Use Standard Drinks/Week Comments Yes 0 (1 standard drink = 0.6 oz pure alcoho l) SELDOM Sex Assigned at Date Recorded Not on file documented as of this encounter Miscellaneous Notes Telephone Encounter - 05/18/2003 11:59 PM CDT >> LORRAINE RAMIREZ FriMay 18, 2003 1:01 PM pt advised. called to pharmSharon Ramirez RN >> LUCÍA HORVATH FriMay 18, 2003 10:33 AM >> CALL RECEIVED. Contact: H#[phone] Pt. strained muscle in left buttock about a week ago. Saw Dr. Harvey in who prescribed Generic No rflex 100mg Tab 1 BID and Darvocet-N100 Q6H. Gave pt only 4-5 days supply and is now requesting refi lls. Pt. does indicate however that pain is starting to feel a little better today for the first gregoria e but otherwise has noticed no change in sx while being on the meds. Needs something for pain, eithe r continuation of meds above or new meds you advise. Plz call to [facility] in [place] at . Lucía Horvath R.N. documented in this encounter Plan of Treatment Not on filedocumented as of this encounter Visit Diagnoses Not on filedocumented in this encounter Care Teams Senior Cyber Security Analyst Relationship Specialty Start Date End Date Nader Garibay MD PCP - General 01/01/02 10/16/17 documented as of this encounter
--- OUTSIDE RECORDS SUMMARY | 2022-10-07 10:54 | XMS_ITS | Encounter Summary ---
:1935 Author Organization [facility] Address [address] [place] [address] Care Team Providers Name Role Phone Nader Garibay MD Primary Care Provider Reason for Referral - Closed Specialty Diagnoses / Procedures Referred By Contact Refer red To Contact Diagnoses Pain in joint, lower leg [facility] [address] [phone] Referral ID Status Reason Start Date Expiration Date Visits Requ ested Visits Authorized [id number] Closed 01/27/2004 11/16/2011 1 1 COIN DEALER Reason for Visit Reason Comments RECHECK Encounter Details Date Type Department Care Team Description 01/27/[address] [facility] Isabella, URIN TRACT INFECTION NOS (Primary Dx); [facility] Tiki Schwartz JOINT VIJAY N-LOWER LEG [place] [address] [phone] Social History Tobacco Use Types Packs/Day Years Used Date Smoking Tobacco: Never Alcohol Use Standard Drinks/Week Comments Yes 0 (1 standard drink = 0.6 oz pure alcoho l) SELDOM Sex Assigned at Date Recorded Not on file documented as of this encounter Last Filed Vital Signs Vital Sign Reading Time Taken Comments Blood Pressure 132/64 01/27/2004 2:00 PM OLD COIN DEALER Pulse 78 01/27/2004 2:00 PM OLD COIN DEALER Temperature - - Respiratory Rate - - Oxygen Saturation - - Inhaled Oxygen Concentration - - Weight 111.1 kg (245 lb) 01/27/2004 2:00 PM OLD COIN DEALER Height - - Body Mass Index 40.77 11/03/2002 11:00 AM OLD COIN DEALER documented in this encounter Progress Notes 01/27/2004 2:00 PM OLD COIN DEALER Addended by: TIKI MASON on: 01/27/2004,2:25 PM Modules accepted: Order Summary, Progress Not es SUBJECTIVE: Vielka Snyder is seen in followup regarding a uti. Ecoli uti which responds to qu inolones, finisihed 10 days of levaquin. Sx cleared. Her sister had renal ca and her mothers sister had bladder ca and they both are concerned with the pts sx. Bextra has not helped her knee after 3 days. 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] EDEMA[782.3] DEPRESSIVE DISORDER NEC[311] ESOPHAGEAL REFLUX[530.81] MIXED HYPERLIPIDEMIA[272.2] OTHER UNSPEC SLEEP APNE A[780.57] OBESITY NOS[278.00] Review of patient's past surgical history indicates: DEL TERESA ONLY Comment: , Low Cervical,X2 DILATION/CUR ETTAGE,DIAGNOSTIC Comment: X3 IN HER 50s APPENDECTOMY 1948 Meds as of 01/27/2004: VIVEK ASPIRIN 325 MG OR TABS 1 TABLET EVER Y 4 TO 6 HOURS NEEDED GAS RELIEF 125 MG OR CAPS phyazyme LIPITOR 10 MG OR TABS 1 tab PO QD (Once p er day) BEXTRA 20 MG OR TABS 1 TABLET DAILY TRIAMTERENE-HCTZ 75-50 MG OR TABS 1 TABLET DAILY NEXIUM 4 0 MG OR CPDR 1 CAPSULE DAILY EFFEXOR XR 150 MG OR CP24 1 CAPSULE DAILY WITH FOOD REVIEW OF SYSTEMS: CONSTITUTIONAL: NEGATIVE for fever, chills, change in weight, generally feels well. EYES: NEGATIV E for vision changes or irritation and corrected vision ENT/MOUTH: NEGATIVE for ear, mouth and throa t problems RESP: NEGATIVE for significant cough or SOB BREAST: NEGATIVE for masses, tenderness or d ischarge CV: NEGATIVE for chest pain, palpitations or peripheral edema GI: NEGATIVE for nausea, abd ominal pain, heartburn, or change in bowel habits : NEGATIVE for frequency, dysuria, nocturia, hem aturia, or incontinence MUSCULOSKELATAL: NEGATIVE for significant arthralgias or myalgia SKIN: NEGAT RENE for worrisome skin lesions, or rashes. NEURO: NEGATIVE for weakness, dizziness or paresthesias ENDOCRINE: NEGATIVE for temperature intolerance, skin/hair changes HEME/ALLERGY/IMMUNE: NEGATIVE fo r bleeding problems PSYCHIATRIC: NEGATIVE for changes in mood or affect OBJECTIVE: REPEAT BP: GENERAL: ALERT, NO DISTRESS NECK: SUPPLE, THYROID NORMAL, CAROTIDS 2+ BILATERALLY WITHOUT BRUITS LUNG S: CLEAR HEART: NSR WITHOUT MURMURS OR GALLOPS ABDOMEN: SOFT, NONTENDER, NO MASSES, NORMAL BOWEL SOUN DS EXTREMETIES: NO EDEMA, FOOT EXAM: NO LESIONS,MONOFILAMENT TESTING NORMAL A/P: 599.0 URIN TRACT I NFECTION NOS (primary encounter diagnosis) Note: Plan: UA WITH MICRO 719.46 JOINT PAIN-LOWE R LEG Note: Plan: CONSULT ORTHOPEDIC GENERAL, SED RATE, AUTO, RHEUMATOID FACTOR, URIC ACID More than 25 minutes was spent with this patient, more than half spent in education and counseling. documented in this encounter Nursing Notes 01/27/2004 2:00 PM CST >> SEVEN TAVERA 01/27/2004 2:06 pm uti - resolved. first sx of uti same as sister's when dx with kidney cancer. left knee pain worse than right - hard to get up .additional views of mammo to be done next week.Sakina Anderson documented in this encounter Plan of Treatment Not on filedocumented as of this encounter Procedures Procedure Name Priority Date/Time Associated Comments Diagnosis ZZ CONSULT Routine 02/01/2004 Joint Pain-Lower ORTHOPEDIC GENERAL Leg HCL RHEUMATOID FACTOR Routine 01/27/2004 2:41 PM Joint Pain-Lo wer Results for this OLD COIN DEALER Leg procedure are i n the results section. HCL SED RATE (ESR) Routine 01/27/2004 2:41 PM Joint Pain-Lower Results for this OLD COIN DEALER Leg procedure are i n the results section. HCL URIC ACID Routine 01/27/2004 2:41 PM Joint Pain-Lower Resu lts for this OLD COIN DEALER Leg procedure are i n the results section. HCL URINALYSIS WITH Routine 01/27/2004 2:40 PM Urin Tract Re sults for this MICROSCOPIC OLD COIN DEALER Infection Nos procedure are in the results section. documented in this encounter Results CONSULT ORTHOPEDIC GENERAL (02/01/2004) Narrative This result has an attachment that is no t available. Tiki Mason REFERRAL URIC ACID (01/27/2004 2:41 PM OLD COIN DEALER) athologist Signature Uric Acid 5.6 2.5 - 7.5 [facility] mg/dL CLINIC LAB Specimen Anatomical Collection Method Collection Time Receive d Time (Source) Location / / Volume Laterality 01/27/2004 2:41 PM 4 2:42 OLD COIN DEALER PM OLD COIN DEALER Tiki Mason LABORATORY Performing Organization Address City/State/ZIP Code Phon e Number [facility] [address] [place] [address] [facility] RHEUMATOID FACTOR (01/27/2004 2:41 PM OLD COIN DEALER) athologist Signature Rheumatoid <20 0 - 20 [facility] Factor IU/mL CAMPUS LABS Specimen Anatomical Collection Method Collection Time Receive d Time (Source) Location / / Volume Laterality 01/27/2004 2:41 PM 4 2:42 OLD COIN DEALER PM OLD COIN DEALER Tiki Mason LABORATORY Performing Organization Address City/State/ZIP Code Phon e Number [address] [address] [facility]S SED RATE, AUTO (01/27/2004 2:41 PM OLD COIN DEALER) athologist Signature Sed Rate 15 0 - 30 mm/h [facility] Specimen Anatomical Collection Method Collection Time Receive d Time (Source) Location / / Volume Laterality 01/27/2004 2:41 PM 4 2:42 OLD COIN DEALER PM OLD COIN DEALER Tiki Mason LABORATORY Performing Organization Address City/State/ZIP Code Phon e Number [facility] [address] [place] [address] [facility] (ABNORMAL) UA WITH MICRO (01/27/2004 2:40 PM OLD COIN DEALER) [facility] gist Method Time Signature Color Urine Yellow [facility] Appearance Urine Clear [facility] Glucose Urine Negative NEG mg/dL [facility] Bilirubin Urine Negative NEG [facility] Ketones Urine Negative NEG mg/dL [facility] Specific [place] 1.015 1.001 - [place] Urine 1.035 [facility] pH Urine 8.0 (H) 5.0 - 7.0 [place] pH [facility] Protein Albumin Negative NEG mg/dL [place] Urine [facility] Urobilinogen 0.2 0.2 - 1.0 [place] Urine EU/dL [facility] Nitrite Urine Negative NEG [facility] Blood Urine Negative NEG [facility] Leukocyte Trace (A) NEG [place] Esterase Urine [facility] Source Midstream [place] Urine [facility] WBC Urine 0-2 0 - 2 [place] /HPF [facility] RBC Urine Negative 0 - 2 [place] /HPF [facility] Squamous EPI Few FEW /LPF [facility] Specimen Anatomical Collection Method Collection Time Receive d Time (Source) Location / / Volume Laterality 01/27/2004 2:40 PM 4 2:41 OLD COIN DEALER PM OLD COIN DEALER Tiki Mason LABORATORY Performing Organization Address City/State/ZIP Code Phon e Number [facility] [address] [place] [address] [facility] documented in this encounter Visit Diagnoses Diagnosis Urinary tract infection, site not specif ied - Primary Pain in joint, lower leg documented in this encounter Care Teams Electrical Engineer Relationship Specialty Start Date End Date Nader Garibay MD PCP - General 01/01/02 10/16/17 documented as of this encounter
--- OUTSIDE RECORDS SUMMARY | 2022-10-07 10:54 | XMS_ITS | Encounter Summary ---
:1935 Author Organization [facility] Address [address] [place] [address] Care Team Providers Name Role Phone Nader Garibay MD Primary Care Provider Reason for Visit Reason Comments Medication Request Encounter Details Date Type Department Care Team Description 12/22/2002 Telephone [facility] Jennifer Mason [facility] Medication Request [address] [phone] Social History Tobacco Use Types Packs/Day Years Used Date Smoking Tobacco: Never Alcohol Use Standard Drinks/Week Comments Yes 0 (1 standard drink = 0.6 oz pure alcoho l) SELDOM Sex Assigned at Date Recorded Not on file documented as of this encounter Miscellaneous Notes Telephone Encounter - 12/22/2002 11:59 PM ELECTROPLATING TECHNICIAN >> CLARITZA REYES [facility] Dec 22, 2002 3:56 PM Rx called and detailed message left on pt. pers. VM. >> TIKI MASON [facility] Dec 22, 2002 3:29 PM yes, please call in >> GAEL MEDINA [facility] Dec 22, 2002 2:13 PM >> CALL RECEIVED. Contact: pt. ok to leave mess Pt. would like to get a refill of zpack for her sinus, she c/o head is plugged, sims, post nasal drain ing causing s/t, doesnt feel well, tired. Will you rx zpack again? documented in this encounter Plan of Treatment Not on filedocumented as of this encounter Visit Diagnoses Not on filedocumented in this encounter Care Teams Waste Collection Driver Relationship Specialty Start Date End Date Nader Garibay MD PCP - General 01/01/02 10/16/17 documented as of this encounter
--- OUTSIDE RECORDS SUMMARY | 2022-10-07 10:54 | XMS_ITS | Encounter Summary ---
:1935 Author Organization [facility] Address [address] [place] [address]. [place] [address] Care Team Providers Name Role Phone Nader Garibay MD Primary Care Provider Reason for Visit Reason Comments Urinary Problem c/o urinary burning and freq uency,hematuria onset sat 04. Cough DX with Bronchitis 10 days a go,still coughing prod green phelgm,last day abx Encounter Details Date Type Department Care Team Description 01/16/[address] [facility] Maximo Archer URIN TRACT INFECTION NOS (Primary Dx); [facility] [place] MD Ignacio MIXED HYPERLIPIDEMIA; [place] [address] ACUTE URI NOS [address] [phone] Social History Tobacco Use Types Packs/Day Years Used Date Smoking Tobacco: Never Alcohol Use Standard Drinks/Week Comments Yes 0 (1 standard drink = 0.6 oz pure alcoho l) SELDOM Sex Assigned at Date Recorded Not on file documented as of this encounter Last Filed Vital Signs Vital Sign Reading Time Taken Comments Blood Pressure 122/60 01/16/2004 4:30 PM COLLATERAL CLERK Pulse 66 01/16/2004 4:30 PM COLLATERAL CLERK Temperature 36.7 ??C (98.1 ??F) 01/16/2004 4:30 PM COLLATERAL CLERK Respiratory Rate - - Oxygen Saturation - - Inhaled Oxygen Concentration - - Weight - - Height - - Body Mass Index - - documented in this encounter Progress Notes 01/16/2004 4:30 PM COLLATERAL CLERK Addended by: JAMEE CHUN on: 05/17/2004,4:27 PM Modules accepted: Order Summary SUBJECTIVE: 1. onset of hematuria, dysuria, urgency for some time. 2. Onset resp sx about 01/03, with nasal conge stion, sore throat, with F/C. Saw Dr. Mason 01/10,treated with amoxacillin. Not better. Note off work ended today. Still with cough and green phlegm, no shortness of breath. No pleuricy. Epis ode of vertigo, took antivert for 3 days, at start of episode. Hx of vertigo in the past. ALso was hoarse. 3. Asks about recent lipid test ROS--no chest pain, GI sx, PIERRE. OBJECTIVE: TM, sinus, nodes, throat negative. Geographic tongue. lungs clear, reg ht tones UA--positive for RBC, WBC, and see lipids ASSESSMENT: 1. URI, with bronchitis, most likely viral. No significant suggestion of sinusi tis, at this time 2. Dysuria, etc. UA suggestive of cystitis. Rule out upper infection less likely. 3. Hyperlipidemia, much worse off zocor. Cannot recall other meds prior to this one. PLAN: 1. Re st and Fluids, note for work 2. Samples of nasonex 3. Levaquin rx 4. Consider urology consult or I HAND REAMER if blood or any symptoms persist. Pt understands need to call or follow-up if not fully resolved . Sister with history of renal cell CA. 5. Trial of lipitor 10 mg daily. Check labs in 2 months, a nd see Dr. Mason to review results. documented in this encounter Nursing Notes 01/16/2004 4:30 PM CST >> HERMINIA PUENTES 01/16/2004 4:40 pm BP cuff size: large Herminia Puentes LPN documented in this encounter Plan of Treatment Not on filedocumented as of this encounter Procedures Procedure Name Priority Date/Time Associated Comments Diagnosis HCL CULTURE, URINE Routine 01/16/2004 5:17 PM Urin Tract Res ults for this COLLATERAL CLERK Infection Nos procedure are in the results section. HCL URINALYSIS WITH Routine 01/16/2004 5:07 PM Urin Tract Re sults for this MICROSCOPIC COLLATERAL CLERK Infection Nos procedure are in the results section. documented in this encounter Results CULTURE, URINE (01/16/2004 5:17 PM COLLATERAL CLERK) [facility] Method Time Signature Specimen Midstream Urine [facility] LAB Culture Micro >100,000 [place] colonies/mL [facility] LAB coli Report status FINAL [id number] [facility] Specimen Anatomical Collection Method Collection Time Receive d Time (Source) Location / / Volume Laterality 01/16/2004 5:17 PM 4 5:18 COLLATERAL CLERK PM COLLATERAL CLERK Organism Antibiotic Method Susceptibility >100,000 colonies/ml Amoxicillin/Clav 16 Interme diate escherichia coli (myles) >100,000 colonies/ml Ampicillin >=32 Resist ant escherichia coli (myles) >100,000 colonies/ml Cefazolin <=4 Suscept ible escherichia coli (myles) >100,000 colonies/ml Ceftriaxone <=1 Suscept ible escherichia coli (myles) >100,000 colonies/ml Ciprofloxacin <=0.25 Susc eptible escherichia coli (myles) >100,000 colonies/ml Gentamicin <=1 Suscept ible escherichia coli (myles) >100,000 colonies/ml Nitrofurantoin <=16 Suscep tible escherichia coli (myles) >100,000 colonies/ml Ticarcillin >=128 Resis tant escherichia coli (myles) >100,000 colonies/ml Ticarcillin/Clav >=128 Resi stant escherichia coli (myles) >100,000 colonies/ml Tobramycin <=1 Suscept ible escherichia coli (myles) >100,000 colonies/ml Trimethoprim/Sulfamethoxazole <=1/19 Susceptible escherichia coli (myles) Maximo Archer MD LABORATORY Performing Organization Address City/State/ZIP Code Phon e Number [facility] [address] [address] [facility] (ABNORMAL) UA WITH MICRO (01/16/2004 5:07 PM COLLATERAL CLERK) [facility] Method Time Signature Color Urine Yellow [facility] Appearance Urine Cloudy [facility] Glucose Urine Negative NEG mg/dL [facility] Bilirubin Urine Negative NEG [facility] Ketones Urine Negative NEG mg/dL [facility] Specific [place] >1.030 1.001 - [place] Urine 1.035 [facility] pH Urine 5.5 5.0 - 7.0 [place] pH [facility] Protein Albumin 30 (A) NEG mg/dL [place] Urine [facility] Urobilinogen 0.2 0.2 - 1.0 [place] Urine EU/dL [facility] Nitrite Urine Positive (A) NEG [facility] Blood Urine Large (A) NEG [facility] Leukocyte Trace (A) NEG [place] Esterase Urine [facility] Source Midstream [place] Urine [facility] WBC Urine 5-10 0 - 2 [place] Abnorm Result /HPF [facility] RBC Urine 25-50 0 - 2 [place] Abnorm Result /HPF [facility] Squamous EPI Few FEW /LPF [facility] Bacteria Urine Many (A) NEG /HPF [facility] Specimen Anatomical Collection Method Collection Time Receive d Time (Source) Location / / Volume Laterality 01/16/2004 5:07 PM 4 5:12 COLLATERAL CLERK PM COLLATERAL CLERK Maximo Archer MD LABORATORY Performing Organization Address City/State/ZIP Code Phon e Number [facility] [address] [place] [address] [facility] documented in this encounter Visit Diagnoses Diagnosis Urinary tract infection, site not specif ied - Primary Mixed hyperlipidemia Acute upper respiratory infections of un specified site documented in this encounter Care Teams Life Insurance Salesperson Relationship Specialty Start Date End Date Nader Garibay MD PCP - General 01/01/02 10/16/17 documented as of this encounter
--- OUTSIDE RECORDS SUMMARY | 2022-10-07 10:54 | XMS_ITS | Encounter Summary ---
:1935 Author Organization [place] Address [address] [place] [address]. [place] [address] Care Team Providers Name Role Phone Nader Garibay MD Primary Care Provider Reason for Visit Reason Comments Pain left hip Encounter Details Date Type Department Care Team Description 06/13/2003 Telephone [facility] Jennifer Mason Pain (left hip) [address] [phone] Social History Tobacco Use Types Packs/Day Years Used Date Smoking Tobacco: Never Alcohol Use Standard Drinks/Week Comments Yes 0 (1 standard drink = 0.6 oz pure alcoho l) SELDOM Sex Assigned at Date Recorded Not on file documented as of this encounter Miscellaneous Notes Telephone Encounter - 06/13/2003 11:59 PM CDT >> RENEE RAMIREZ [facility] Jun 15, 2003 9:26 AM called to pharm. Renee Ramirez RN pt advised. Renee Ramirez RN >> TIKI MASON [facility] Jun 14, 2003 6:14 PM called and flexeril refilled, please call in >> GAEL MEDINA [facility] Jun 14, 2003 11:04 AM Pt called again vicodin didn't seem to do much, will start PT this thurs. could she get something for pain. Pain goes in different stages from not to bad to severe, she is out of both pain med and flexeril would need that also. Needs today please. >> HERMINIA MARISCAL [facility] Jun 13, 2003 1:53 PM >> CALL RECEIVED. Contact: pt given flexaril and vicodin for left hip pain. Pt states not helping and pain is getting worse. St [facility] you mentioned a possible MRI? Pt is out of pain meds and still having pain, okay a different pa in med? Please advise. Herminia Mariscal RN documented in this encounter Plan of Treatment Not on filedocumented as of this encounter Visit Diagnoses Not on filedocumented in this encounter Care Teams Enrolled Nurse Relationship Specialty Start Date End Date Nader Garibay MD PCP - General 01/01/02 10/16/17 documented as of this encounter
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
--- OUTSIDE RECORDS SUMMARY | 2022-10-07 10:54 | XMS_ITS | Encounter Summary ---
:1935 Author Organization [place] Address [address] [place] [address]. [place] [address] Care Team Providers Name Role Phone Nader Garibay MD Primary Care Provider Encounter Details Date Type Department Care Team Description 09/16/2003 Orders Only [facility] MIX ED HYPERLIPIDEMIA; [place] [facility] OBESITY N OS; Laboratory ESOPHAGEAL REFLUX; [address] DEPRESSIVE DISORDER NEC [place], [place] [phone] Social History Tobacco Use Types [...] Associated Diagnosis Comme nts HCL COMPREHENSIVE Routine 09/16/2003 9:57 Mixed Hyperlip idemia Results for this METABOLIC PANEL AM COLLEGE TEACHER Obesity Nos procedure are in Esophageal Reflu x the results Depressive Disorder section. Nec CL AFF A.M.A. LIPID Routine 09/16/2003 9:57 Mixed Hyperlipidem ia Results for this PANEL AM COLLEGE TEACHER procedure are i n the results section. documented in this encounter Results (ABNORMAL) A.M.A. COMPREHENSIVE MET.PANEL (09/16/2003 9:57 AM COLLEGE TEACHER) P athologist Signature Sodium 139 133 - 144 [facility] mmol/L [facility] Potassium 3.9 3.4 - 5.3 [facility] mmol/L [facility] Chloride 102 94 - 109 [facility] mmol/L [facility] Carbon Dioxide 29 20 - 32 [facility] mmol/L [facility] Anion Gap 8 6 - 17 [place] mmol/L [facility] Glucose 94 60 - 115 [place] mg/dL [facility] Urea Nitrogen 19 7 - 30 [place] mg/dL [facility] Creatinine 0.9 0.6 - 1.6 [place] mg/dL [facility] Calcium 9.1 8.5 - 10.4 [place] mg/dL [facility] Bilirubin Total 0.6 0.2 - 1.3 [place] mg/dL [facility] Albumin 4.1 3.2 - 4.5 [place] g/dL [facility] Protein Total 6.8 6.0 - 8.2 [place] g/dL [facility] Alkaline 81 40 - 150 [place] Phosphatase U/L [facility] ALT 66 (H) 0 - 50 U/L [facility] AST 53 (H) 0 - 45 U/L [facility] Specimen Anatomical Collection Method Collection Time Receive d Time (Source) Location / / Volume Laterality 09/16/2003 9:57 AM 3 COLLEGE TEACHER 10:02 AM COLLEGE TEACHER Isaac Mason LABORATORY Performing Organization Address City/State/ZIP Code Phon e Number [facility] [address] [place] [address] [facility] A.M.A. LIPID PANEL (09/16/2003 9:57 AM COLLEGE TEACHER) athologist Signature Cholesterol 186 <200 mg/dL [facility] Comment: Cholesterol Reference Range: <200 ??The NCEP recommends further ? evaluation of: ? 1. ??Patients with cholesterol ? greater than 200 mg/dL ? if additional risk facto rs ? are present. ? 2. ??All patients with a ? cholesterol greater than ? 240 mg/dL. Triglycerides 124 <150 mg/dL [facility] HDL Cholesterol 45 >40 mg/dL [facility] LDL Cholesterol Calculated 116 <130 mg/dL [facility] VLDL-Cholesterol 25 0 - 30 mg/dL [facility] Cholesterol/HDL Ratio 4 0 - 5 [facility] Specimen Anatomical Collection Method Collection Time Receive d Time (Source) Location / / Volume Laterality 09/16/2003 9:57 AM 3 COLLEGE TEACHER 10:02 AM COLLEGE TEACHER Isaac Mason LABORATORY Performing Organization Address City/State/ZIP Code Phon e Number [facility] [address] [place] [address] [facility] documented in this encounter Visit Diagnoses Diagnosis Mixed hyperlipidemia Obesity, unspecified Esophageal reflux Depressive disorder, not elsewhere class ified documented in this encounter Care Teams Tape Weaver Relationship Specialty Start Date End Date Nader Garibay MD PCP - General 01/01/02 10/16/17 documented as of this encounter
--- OUTSIDE RECORDS SUMMARY | 2022-10-07 10:54 | XMS_ITS | Encounter Summary ---
:1935 Author Organization [place] Address [address] [place] [address]. [place] [address] Care Team Providers Name Role Phone Nader Garibay MD Primary Care Provider Encounter Details Date Type Department Care Team Description 10/18/2003 Orders Only [facility] Rosenquist, ABNORMAL L IVER [facility] FUNCTION STUDY [place] (Primary Dx) [address] [phone] Social History Tobacco Use Types [...] Primary documented in this encounter Care Teams Home Support Worker Relationship Specialty Start Date End Date Nader Garibay MD PCP - General 01/01/02 10/16/17 documented as of this encounter
--- OUTSIDE RECORDS SUMMARY | 2022-10-07 10:54 | XMS_ITS | Encounter Summary ---
:1935 Author Organization [place] Address [address] [place] [address] Care Team Providers Name Role Phone Nader Garibay MD Primary Care Provider Reason for Visit Reason Comments Back Pain low back pain Encounter Details Date Type Department Care Team Description 05/13/2003 Abstract M [facility] Joshua hickman, DO [facility] [address] [address] [place], [place] [phone] Social History Tobacco Use Types Packs/Day Years Used Date Smoking Tobacco: Never Alcohol Use Standard Drinks/Week Comments Yes 0 (1 standard drink = 0.6 oz pure alcoho l) SELDOM Sex Assigned at Date Recorded Not on file documented as of this encounter Progress Notes 05/13/2003 11:59 PM CDT Norflex 100 1 po bid prn #12 Darvacet N 100 1 po q 6 hours #15 This information has been abstracte d from the urgent care chart. documented in this encounter Plan of Treatment Not on filedocumented as of this encounter Visit Diagnoses Not on filedocumented in this encounter Care Teams Psych Social Worker Relationship Specialty Start Date End Date Nader Garibay MD PCP - General 01/01/02 10/16/17 documented as of this encounter
--- OUTSIDE RECORDS SUMMARY | 2022-10-07 10:54 | XMS_ITS | Encounter Summary ---
:1935 Author Organization [place] Address [address] [place] [address]. [place] [address] Care Team Providers Name Role Phone Nader Garibay MD Primary Care Provider Reason for Visit Reason Comments throbbing/ringing in head Encounter Details Date Type Department Care Team Description 04/17/2004 Telephone [facility] Jennifer Mason [place] [phone] Social History Tobacco Use Types Packs/Day Years Used Date Smoking Tobacco: Never Alcohol Use Standard Drinks/Week Comments Yes 0 (1 standard drink = 0.6 oz pure alcoho l) SELDOM Sex Assigned at Date Recorded Not on file documented as of this encounter Miscellaneous Notes Telephone Encounter - 04/17/2004 11:59 PM CDT >> GAEL Amaya Apr 17, 2004 1:42 PM >> CALL RECEIVED. Contact: pt Pt calling she states she is not feeling well, she has a throbbing and ringing in the head, feels si ck to her stomach, been tired the past 2 days, I did advise the ER. documented in this encounter Plan of Treatment Not on filedocumented as of this encounter Visit Diagnoses Not on filedocumented in this encounter Care Teams Car Servicer Relationship Specialty Start Date End Date Nader Garibay MD PCP - General 01/01/02 10/16/17 documented as of this encounter
--- OUTSIDE RECORDS SUMMARY | 2022-10-07 10:54 | XMS_ITS | Encounter Summary ---
:1935 Author Organization [place] Address [address] [place] [address]. [place] [address] Care Team Providers Name Role Phone Nader Garibay MD Primary Care Provider Reason for Referral - Closed Specialty Diagnoses / Procedures Referred By Contact Refer red To Contact Diagnoses Primary localized osteoarthrosis, lower leg [facility] [address] [phone] Referral ID Status Reason Start Date Expiration Date Visits Requ ested Visits Authorized [id number] Closed 01/10/2004 11/16/2011 1 1 SCALER Reason for Visit Reason Comments Results liver enzyme follow up Infection right foot infection, follow up on UC visit Cough dizziness and ringing in ear s one week ago, rattling on exhalation Depression Musculoskeletal Problem bilateral knee pain Encounter Details Date Type Department Care Team Description 01/10/2004 Office Visit [facility] Isabella, MIXED HYPE RLIPIDEMIA (Primary Dx); [facility] Isaac Schwartz SCREENING MAMM-MAILG NEOPL-OTHER; [place] LOC PRIM OSTEOART-L/LEG; [address] [place] [address] Social History Tobacco Use Types Packs/Day Years Used Date Smoking Tobacco: Never Alcohol Use Standard Drinks/Week Comments Yes 0 (1 standard drink = 0.6 oz pure alcoho l) SELDOM Sex Assigned at Date Recorded Not on file documented as of this encounter Last Filed Vital Signs Vital Sign Reading Time Taken Comments Blood Pressure 110/60 01/10/2004 10:15 AM LOG SCALER Pulse 84 01/10/2004 10:15 AM LOG SCALER Temperature 36.7 ??C (98 ??F) 01/10/2004 10:15 AM LOG SCALER Respiratory Rate 12 01/10/2004 10:15 AM LOG SCALER Oxygen Saturation - - Inhaled Oxygen Concentration - - Weight 107.5 kg (237 lb) 01/10/2004 10:15 AM LOG SCALER Height - - Body Mass Index 39.44 11/03/2002 11:00 AM LOG SCALER documented in this encounter Progress Notes 01/10/2004 10:15 AM LOG SCALER SUBJECTIVE: Vielka Snyder is seen with a hx of a cough, deep in her chest x 4 days, in bed since lst friday. She also fell half a flight or 5 stairs and hurtr5 left elbow and her buttock, and pulled right shoulder and neck, on 12/25. Patient Active Problem List: LOC PRIM OSTEOART-L/LEG[71 5.16] EDEMA[782.3] DEPRESSIVE DISORDER NEC[311] ESOPHAGEAL REFLUX[530.81] MIXED HYPERLIPIDEMI A[272.2] OTHER UNSPEC SLEEP APNEA[780.57] OBESITY NOS[278.00] Review of patient's past surgical history indicates: DELIVERY ONLY Comment: C-Secti on, Low Cervical,X2 DILATION/CURETTAGE,DIAGNOSTIC Comment: X3 IN H ER 50s APPENDECTOMY 1950 .all Meds as of 01/10/2004: AMOX IL 500 MG OR TABS 1 tab tid TRIAMTERENE-HCTZ 75-50 MG OR TABS 1 TABLET DAILY NEXIUM 40 MG OR CPDR 1 C APSULE DAILY NAPROXEN 500 MG OR TABS 1 TABLET TWICE DAILY EFFEXOR XR 150 MG OR CP24 1 CAPSULE DAILY W ITH FOOD REVIEW OF SYSTEMS: CONSTITUTIONAL: NEGATIVE for fever, chills, change in weight, general ly feels well. EYES: NEGATIVE for vision changes or irritation and corrected vision ENT/MOUTH: NEGA TIVE for ear, mouth and throat problems RESP: NEGATIVE for significant cough or SOB BREAST: NEGATIV E for masses, tenderness or discharge CV: NEGATIVE for chest pain, palpitations or peripheral edema GI: NEGATIVE for nausea, abdominal pain, heartburn, or change in bowel habits : NEGATIVE for freq uency, dysuria, nocturia, hematuria, or incontinence MUSCULOSKELATAL: NEGATIVE for significant arthr algias or myalgia SKIN: NEGATIVE for worrisome skin lesions, or rashes. NEURO: NEGATIVE for weaknes s, dizziness or paresthesias ENDOCRINE: NEGATIVE for temperature intolerance, skin/hair changes HEME /ALLERGY/IMMUNE: NEGATIVE for bleeding problems PSYCHIATRIC: NEGATIVE for changes in mood or affect OBJECTIVE: REPEAT BP: GENERAL: ALERT, NO DISTRESS NECK: SUPPLE, THYROID NORMAL, CAROTIDS 2+ BI LATERALLY WITHOUT BRUITS LUNGS: CLEAR HEART: NSR WITHOUT MURMURS OR GALLOPS ABDOMEN: SOFT, NONTENDER, NO MASSES, NORMAL BOWEL SOUNDS EXTREMETIES: NO EDEMA, tender medial left knee FOOT EXAM: wnl A/P: 2 72.2 MIXED HYPERLIPIDEMIA (primary encounter diagnosis) Note: Plan: A.M.A. LIPID PANEL low ch ol diet, if labs abnormal than lipitor V76.12 SCREENING MAMM-MAILG NEOPL-OTHER Note: Plan: MAMMOGRA M, SCREENING 715.16 LOC PRIM OSTEOART-L/LEG Note: bilater Plan: X-RAY KNEE BILAT STANDING, CO NSULT ORTHOPEDIC GENERAL, bextra 786.2 COUGH Note: Plan: CHEST X-RAY 2 VW al buterol More than 25 minutes was spent with this patient, more than half spent in education and c ounseling. If ordered, I have discussed with the patient the risks, benefits, and treatment options of prescribed medications or other treatment modalities. I have instructed the patient to call or sc hedule a follow-up appointment for any problems or failure to improve. documented in this encounter Nursing Notes 01/10/2004 10:15 AM CST >> JAMEE CHUN 01/10/2004 10:21 am Jamee Chun LPN documented in this encounter Plan of Treatment Not on filedocumented as of this encounter Procedures Procedure Name Priority Date/Time Associated Diagnosis Comme nts HC X-RAY KNEE AP Routine 01/10/2004 11:29 AM Loc Prim Resu lts for this STANDING BILATERAL LOG SCALER Osteoart-L/Leg procedu re are in the results section. HC CHEST TWO VIEWS, Routine 01/10/2004 11:29 AM Cough R esults for this FRONT/LAT LOG SCALER procedure are i n the results section. documented in this encounter Results X-RAY KNEE BILAT STANDING (01/10/2004 11:29 AM LOG SCALER) Anatomical Region Laterality Modality Other Impressions 01/10/2004 11:29 AM LOG SCALER Patient: ??Vielka Snyder Chart: ??[id number] : ??1935 RADIOLOGIST'S INTERPRETATION: ??Rito chacon M.D. CHEST ??01/10/04 History: ??Routine. ?? Findings: ??There are degenerative alcantara es in the thoracic spine. ??Exam is otherwise nega tive. ?? BILATERAL STANDING KNEES ??01/10/04 History: ??Routine. ?? Findings: ??Negative exam. ?? PROVIDER'S INTERPRETATION: ??Isaac Mason M.D. None. ?? AC/mbs:adf D&T: ??01/11/04 Electronically filed by Zoraida Trent ??01/12/2004 ??9:52 AM Isaac Mason GENERAL IMAGING (ABNORMAL) CHEST X-RAY 2 VW (01/10/2004 11:29 AM LOG SCALER) Anatomical Region Laterality Modality Other Impressions 01/10/2004 11:29 AM LOG SCALER Patient: ??Vielka Snyder Chart: ??[id number] : ??1935 RADIOLOGIST'S INTERPRETATION: ??Rito chacon M.D. CHEST ??01/10/04 History: ??Routine. ?? Findings: ??There are degenerative alcantara es in the thoracic spine. ??Exam is otherwise nega tive. ?? BILATERAL STANDING KNEES ??01/10/04 History: ??Routine. ?? Findings: ??Negative exam. ?? PROVIDER'S INTERPRETATION: ??Isaac Mason M.D. None. ?? AC/mbs:adf D&T: ??01/11/04 Electronically filed by Zoraida Trent ??01/12/2004 ??9:52 AM Isaac Mason GENERAL IMAGING documented in this encounter Visit Diagnoses Diagnosis Mixed hyperlipidemia - Primary Other screening mammogram Primary localized osteoarthrosis, lower leg Cough documented in this encounter Care Teams Product Picker Relationship Specialty Start Date End Date Nader Garibay MD PCP - General 01/01/02 10/16/17 documented as of this encounter
--- OUTSIDE RECORDS SUMMARY | 2022-10-07 10:54 | XMS_ITS | Encounter Summary ---
:1935 Author Organization [place] Address [address] [place] [address]. [place] [address] Care Team Providers Name Role Phone Nader Garibay MD Primary Care Provider Encounter Details Date Type Department Care Team Description 01/13/2004 Orders Only [facility] MIX ED HYPERLIPIDEMIA [facility] (Primary Dx) Laboratory [address] [phone] Social History Tobacco Use Types [...] Date/Time Associated Diagnosis Comme nts CL AFF A.M.A. LIPID Routine 01/13/2004 7:48 AM Mixed Hyperlipi demia Results for this PANEL SUPPLY AND DISTRIBUTION MANAGER procedure are i n the results section. documented in this encounter Results (ABNORMAL) A.M.A. LIPID PANEL (01/13/2004 7:48 AM SUPPLY AND DISTRIBUTION MANAGER) athologist Signature Cholesterol 256 (H) <200 mg/dL [facility] Comment: Cholesterol Reference Range: <200 ??The NCEP recommends further ? evaluation of: ? 1. ??Patients with cholesterol ? greater than 200 mg/dL ? if additional risk facto rs ? are present. ? 2. ??All patients with a ? cholesterol greater than ? 240 mg/dL. Triglycerides 186 (H) <150 mg/dL [facility] HDL Cholesterol 38 (L) >40 mg/dL [facility] LDL Cholesterol Calculated 180 (H) <130 mg/dL [facility] VLDL-Cholesterol 37 (H) 0 - 30 mg/dL [facility] Cholesterol/HDL Ratio 7 (H) 0 - 5 [facility] Specimen Anatomical Collection Method Collection Time Receive d Time (Source) Location / / Volume Laterality 01/13/2004 7:48 AM 4 7:53 SUPPLY AND DISTRIBUTION MANAGER AM SUPPLY AND DISTRIBUTION MANAGER Isaac Mason LABORATORY Performing Organization Address City/State/ZIP Code Phon e Number [facility] [address] [place] [address] [facility] documented in this encounter Visit Diagnoses Diagnosis Mixed hyperlipidemia - Primary documented in this encounter Care Teams Product Sales Representative Relationship Specialty Start Date End Date Nader Garibay MD PCP - General 01/01/02 10/16/17 documented as of this encounter
--- OUTSIDE RECORDS SUMMARY | 2022-10-07 10:54 | XMS_ITS | Encounter Summary ---
:1935 Author Organization [facility] Address [address] [place] [address]. [place] [address] Care Team Providers Name Role Phone Nader Garibay MD Primary Care Provider Encounter Details Date Type Department Care Team Description 10/07/2002 Telephone [facility], Ceferino Boateng [facility] [place] NO INFO AVAILABLE [address] [place] [address] Social History Tobacco Use Types Packs/Day Years Used Date Smoking Tobacco: Never Alcohol Use Standard Drinks/Week Comments Yes 0 (1 standard drink = 0.6 oz pure alcoho l) SELDOM Sex Assigned at Date Recorded Not on file documented as of this encounter Miscellaneous Notes Telephone Encounter - 10/07/2002 11:59 PM CLERICAL SUPPORT >> PREET SPENCE [facility] Oct 07, 2002 2:52 PM Left message on machine reminding pt. to make post-op appt. Fredy Spence RN >> CEFERINO ORTIZ Deana Oct 07, 2002 2:39 PM >> CALL RECEIVED. Contact: Please call patient. She needs a post-op appointment. documented in this encounter Plan of Treatment Not on filedocumented as of this encounter Visit Diagnoses Not on filedocumented in this encounter Care Teams Groundskeeping Maintenance Relationship Specialty Start Date End Date Nader Garibay MD PCP - General 01/01/02 10/16/17 documented as of this encounter
--- OUTSIDE RECORDS SUMMARY | 2022-10-07 10:54 | XMS_ITS | Encounter Summary ---
:1935 Author Organization [place] Address [address] [place] [address]. [place] [address] Care Team Providers Name Role Phone Nader Garibay MD Primary Care Provider Reason for Visit Reason Comments Orders Encounter Details Date Type Department Care Team Description 01/18/2004 Orders Only M [facility] Rosenquist, MIXED HYPE RLIPIDEMIA [facility] Isaca Schwartz (Primary Dx) [place] [address] [phone] Social History Tobacco Use Types Packs/Day Years Used Date Smoking Tobacco: Never Alcohol Use Standard Drinks/Week Comments Yes 0 (1 standard drink = 0.6 oz pure alcoho l) SELDOM Sex Assigned at Date Recorded Not on file documented as of this encounter Plan of Treatment Not on filedocumented as of this encounter Visit Diagnoses Diagnosis Mixed hyperlipidemia - Primary documented in this encounter Care Teams Aperture Mask Etcher Relationship Specialty Start Date End Date Nader Garibay MD PCP - General 01/01/02 10/16/17 documented as of this encounter
--- OUTSIDE RECORDS SUMMARY | 2022-10-07 10:54 | XMS_ITS | Encounter Summary ---
:1935 Author Organization [facility] Address [address] [place] [address] Care Team Providers Name Role Phone Nader Garibay MD Primary Care Provider Diane Alejandra Primary Care Provider Encounter Details Date Type Department Care Team Description 09/29/2002 [facility] Ceferino Alexander MD [facility] NO INFO AVAILABLE [address] [phone] Social History Tobacco Use Types Packs/Day Years Used Date Smoking Tobacco: Never Smokeless Tobacco: Never Alcohol Use Standard Drinks/Week Comments Yes 0 (1 standard drink = 0.6 oz pure alcoho l) 2drinks a month Sex Assigned at Date Recorded Not on file documented as of this encounter Progress Notes 09/29/2002 11:59 PM HEDIS MANAGER Addended by: CEFERINO ORTIZ) on: 10/06/2002,8:29 AM Modules accepted: Progress Notes Addended by : CALI FELIPE on: 10/05/2002,2:15 PM Modules accepted: Progress Notes Addended by: CEFERINO ORTIZ) on: 10/01/2002,3:14 PM Modules accepted: Progress Notes Addended by: GAEL DEL CASTILLO on: 2,2:51 PM Modules accepted: Progress Notes 00:00 History And Physical-[facility] CEFERINO ORTIZ) [Entered: 00:00 Due Diligence Coordinator ([facility])] : 39 CHIEF COMPLAINT: Post menopausal vaginal bleed. HISTORY: Tonya Snyder is a 66-year-old female, para II-0-I-II, who has been menopausal for many years and has been on estrogen with continuous estrogen. According to the inés haines, two years ago, she was changed to Estratest and Provera 2.5 mg q. day. Since that time, she has not had any vaginal bleeding. She ran out of her Provera in March and spotted during the month of March. In April, she restarted her Provera and bled relatively heavily in April. She say me in April,. She had a Pap smear, which was normal, and an ultrasound was ordered. The ultrasound was perfor med on 05/21/02 and showed 1.1 cm fibroid either adjacent to or within the endometrial cavity at the fu ndus of the uterus. A small posterior fibroid in the mid body of the uterus. A 6 mm calcification in the posterior fundus, possibly related to a degenerating fibroid, and the ovaries were not seen. Th patient has discontinued all hormone. I saw the patient on 05/26/02 and recommended she have a frac tional dilation and curettage, and that was scheduled for 06/10/02 at [facility]. The inés haines called on 05/31/02 and stated that she would be leaving [facility] and asked if it would be okay to inés roquee her surgery until September. We recommended that she not do this, but the patient left and ca lled us upon her return to [facility]. She is now being admitted to the hospital for a fractional dilation and curettage and a diagnostic hysteroscopy. Since she was seen in May, she states that she has sims d some intermittent spotting and about 10 days ago had some vaginal bleeding. PAST OB HISTORY: Cesa rean section in 1962, repeat section in 1964, spontaneous with a D&C in 1966. PAST SURGICAL HISTORY: section x 2. D&C for spontaneous . Appendectomy in 1950. The patient states she has had three D&Cs for abnormal uterine bleeding or heavy uterine bleeding while s he was in her 50s. PAST MEDICAL HISTORY: Depression, arthritis, edema. MEDICATIONS: Zocor, Celebr ex, Wellbutrin, Prilosec, hydrochlorothiazide. ALLERGIES: Ibuprofen. PHYSICAL EXAMINATION: VITAL SIGNS: Height 5'5, weight 250 lbs. Body mass index 41.7. Blood pressure 110/64. ABDOMEN: Midline incision, obese. No masses or organomegaly. PELVIC: External genitalia within normal limits. BUS: No infection. Vagina: Brownish discharge. Cervix: Normal Pap smear on 05/14/02. No cervical mini on tenderness. Uterus anterior. Adnexa clear bilaterally. Rectovaginal confirms. Rectovaginal and bimanual difficult secondary to patient size. IMPRESSION: Postmenopausal vaginal bleeding. PLAN: The patient is admitted to the hospital at this time for a fractional dilation and curettage and diag nostic hysteroscopy. She was seen by an Internal Medicine doctor on 09/27/02 and felt healthy to und ergo the procedure. The procedure and the reason for the procedure, and the options of the procedure have been discussed with the patient. The risks and benefits of the procedure have been discussed w ith the patient. The patient states she understands her options. The patient states she understands the reason for the procedure. The patient states she understands the risks and benefits of the proc edure. The patient's questions have been answered. The patient agrees to the procedure. A consent form was signed in the office on 09/27/02. [id number] CEFERINO ORTIZ MD T: 09/2002 17:25 MT: Document: [id number] [place], [place] Name: VIELKA FOSTER HISTORY AND PHYSICAL Page 2 of 2 LCN: SDS DSC: 09/29/2002 [place], [place] Name: MR#: : Admit Date: ANASTASIA SNYDERCHRIS Banks [id number] 1935 Doctor: CEFERINO ORTIZ MD HISTORY AND PHYSICAL Page 1 of 2 Electronically filed by Tiffanie Del Castillo 10/01/2002 2:51 PM 00:00 Operative Report-[facility] CEFERINO ORTIZ () [Entered: 00:00 Due Diligence Coordinator ([facility])] : 39 1st ASS'T: 2nd ASS'T: PRE-OPERATIV E DIAGNOSIS: Postmenopausal vaginal bleeding. POST-OPERATIVE DIAGNOSIS: Postmenopausal vaginal ble eding. OPERATION: Fractional dilation and curettage; diagnostic hysteroscopy. ANESTHESIA: General . PROCEDURE: Vielka Snyder was taken to the operating room with an I.V. running in the [facility]. She was placed on the operating table in supine position and general anesthesia was administer ed without difficulty. She was placed in the dorsolithotomy position, the vagina and vulva were prep ped and draped in the usual sterile fashion. The bladder was drained with the red rubber catheter. Examination under anesthesia revealed the uterus to be mid to anterior, firm, mobile. There were no adnexal masses. A weighted speculum was placed in the posterior vagina, a right-angle retractor was placed in the anterior vagina. The anterior lip of the cervix was grasped with single-tooth tenaculu m. The external os of the cervix was very stenotic. An attempt was made to place the Kevorkian cure t which was very difficult. A uterine sound could not be placed. A lacrimal duct dilator was placed . Jose endocervical dilators were then used to dilate the endocervix and an ECC was performed with a Kevorkian curet. Minimal amount of tissue was obtained. The uterus was sounded to 8-9 cm. The i nternal os of the cervix was dilated to size 6 Hegar dilator. Using 50% Hyskon/50% saline solution, hysteroscopy was performed. Ten ccs of the solution were used. The uterine cavity appeared normal. There was no fibroid or polyps seen in the uterine fundus. The cervix was then dilated to a size 7 Hegar dilator with some difficulty. A small sharp curet was used to circumferentially curet the endo metrial cavity and a stone forceps was placed to get any tissue. Curettings were again performed and a minimal amount of tissue was sent to pathology, labeled endometrial curettings. The tenaculum was removed from the cervix. This tenaculum site was noted to be hemostatic. All instruments were remov ed from the vagina. Sponge, needle and instrument counts were noted to be correct. The patient was r eturned to the supine position, awakened from anesthesia and transferred to the recovery room in good condition. ESTIMATED BLOOD LOSS: 15 ccs from the uterus. DRAINS: None. CONDITION: Stable. Pat ient tolerated the procedure well. Pathology pending. Note, because the patient has obstructive sle ep apnea, she would be placed on observational care overnight before discharging her home. [id number] CEFERINO ORTIZ MD MT: Document: [id number] [place], [place] Name: PrinceAGNES VIELKA Banks OPERATIVE REPORT Page 2 of 2 LCN : MS2 DSC: 09/30/2002 [place], [place] Name: MR#: : Procedure Vitor e: ANASTASIA SNYDERENE Jocelyn -77 1935 09/29/2002 Doctor: CEFERINO ORTIZ MD OPERATIVE REPO RT Page 1 of 2 Electronically filed by Cali Felipe 10/05/2002 2:15 PM documented in this encounter Plan of Treatment Not on filedocumented as of this encounter Visit Diagnoses Not on filedocumented in this encounter Care Teams Internal Revenue Agent Relationship Specialty Start Date End Date Nader Garibay MD PCP - General 01/01/02 10/16/17 Diane Alejandra PCP - General Internal Medicine 10/17/17 [facility] [address] [place] [address] documented as of this encounter
--- OUTSIDE RECORDS SUMMARY | 2022-10-07 10:55 | XMS_ITS | Encounter Summary ---
:1935 Author Organization [facility] Address [address] [place] [address]. [place] [address] Care Team Providers Name Role Phone Nader Garibay MD Primary Care Provider Reason for Visit Reason Comments Physical PREOP EXAM FOR D and C Encounter Details Date Type Department Care Team Description 09/28/2002 Office Visit [facility], PREOP EXAM OTHER SPECIFIED (Primary Dx); Clinic [place] Isaac J MIXED HYP ERLIPIDEMIA; [place] LOC PRIM OSTEOART-L/LEG; [address] EDEMA; [place], [place] DEPRESSIVE D ISORDER NEC; [id number] ESOPHAGEAL REFLUX; [phone] OTHER UNSPEC SL EEP APNEA; OBESITY NOS Social History Tobacco Use Types Packs/Day Years Used Date Smoking Tobacco: Never Alcohol Use Standard Drinks/Week Comments Yes 0 (1 standard drink = 0.6 oz pure alcoho l) SELDOM Sex Assigned at Date Recorded Not on file documented as of this encounter Last Filed Vital Signs Vital Sign Reading Time Taken Comments Blood Pressure 112/64 09/28/2002 9:30 AM CLINICAL LAW PROFESSOR Pulse 70 09/28/2002 9:30 AM CLINICAL LAW PROFESSOR Temperature 35.6 ??C (96.1 ??F) 09/28/2002 9:30 AM CLINICAL LAW PROFESSOR Respiratory Rate 12 09/28/2002 9:30 AM CLINICAL LAW PROFESSOR Oxygen Saturation - - Inhaled Oxygen Concentration - - Weight 111.8 kg (246 lb 6.4 oz) 09/28/2002 9:30 AM CLINICAL LAW PROFESSOR Height - - Body Mass Index 41 09/27/2002 10:00 AM CLINICAL LAW PROFESSOR documented in this encounter Progress Notes 09/28/2002 9:30 AM CLINICAL LAW PROFESSOR The patient is coming for pre-op evaluation undergoing D & C surgery for treatment of ABNORMAL UTERI AN BLEEDING. Date of Surgery: 09/29/02 Surgeon: [facility] Facility: [facility] Type of Anesthesia Anticipated:General Primary Physician: LEONILA DANIEL HX: Review of patient's family history indicates: Stroke Mother C omment: D ; AGE 88 Cancer Father Comment: D ; AGE 59 LUNG CANCER Cancer Sister Comment: KIDNEY Gynecology Sister Comment: ENDOMETRIOSIS Family History Negative Sister Cancer Paternal Grandmother Comment: OVARIAN Heart Paternal Grandfather Comment: [place] Depression Son HABITS: ======= Tobacco Use: Never Alcohol Use: Yes Comment: SELDOM IMMUNIZATION: Last date of tetanus: PROBABLY 5 - 7 Y EARS AGO ANESTHESIA COMPLICATIONS: Anesthesia Complications: NONE History of abnormal bleeding : NONE History of Blood Tranfusions: NO If applic able, last menstrual period: No LMP date recorded. Reason: Postmenopausal. LIVING WILL: Do you sims ve a Health Care Directive or Living Will: YES WITH REVENUE CYCLE ANALYST Jamee Chun LPN 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] EDEMA[782.3] DEPRESSIVE DISORDER NEC[311] ESOPHAGEAL REFLUX[530.81] MIXED HYPERLIPIDEMIA[272.2] SLEEP APNEA Review of patient's past valdez rgical history indicates: DELIVERY ONLY Comment: C -Section, Low Cervical,X2 DILATION/CURETTAGE,DIAGNOSTIC Comment: X 3 IN HER 50s APPENDECTOMY 1950 REVIEW OF SYSTEMS: ==== CONSTITUTIONAL: NEGATIVE EYES: NEGATIVE and corrected vision ENT/MOUTH: nasal conges tion RESP: NEGATIVE CV: NEGATIVE GI: NEGATIVE : NEGATIVE MUSCULOSKELATAL: NEGATIVE, HX SHOTS IN BOT H KNEES FOR DJD, OK NOW INTEGUMENTARY/SKIN: NEGATIVE BREAST: NEGATIVE NEURO: NEGATIVE ENDOCRINE: NEGA TIVE HEME/ALLERGY/IMMUNE: NEGATIVE PSYCHIATRIC: HX DEPRESSION, DOING WELL ON RX. EXAM: ====== LMP Postmenopausal GENERAL healthy, alert and no distress EYES EOMI, intact visual perdomo, PER RL and funduscopic deferred HENT: Normocephalic. TM's grossly normal, oropharynx without significant findings. NECK: NEGATIVE RESP: NEGATIVE CV: NEGATIVE LYMPH: NEGATIVE GI: NEGATIVE : NEGATIVE MS: NE GATIVE SKIN: no ulcers, lesions or rash NEURO: alert/oriented to person, location and time, CN 2-12 i ntact, brisk, symmetric reflexes at knees and biceps b/l, strength 5/5 throughout and symmetric, sens ation to light touch grossly intact throughout PSYCH: NEGATIVE. DIAGNOSTICS: 1) EK G: appears normal, NSR, normal axis, normal intervals, no acute ST/T changes c/w ischemia, noLVH by voltage criteria, unchanged from previous tracings 2) CXR: NONE 3) Labs: pending IMPRESSION: For above listed surgery and anesthesia: 1) Patient is Low risk for perioperative complications. 2) Surgery is Low risk for p erioperative for complications. RECOMMEN DATIONS:Proceed without further diagnostic evaluation. ------ documented in this encounter Nursing Notes 09/28/2002 9:30 AM CST >> JAMEE CHUN 09/28/2002 9:32 am BP cuff size: large Jamee Chun POOL LIFEGUARD documented in this encounter Plan of Treatment Not on filedocumented as of this encounter Procedures Procedure Name Priority Date/Time Associated Comments Diagnosis HCL HEMOGLOBIN Routine 09/28/2002 10:31 AM Preop Exam Other Re sults for this NONLAB CLINICAL LAW PROFESSOR Specified procedure are i n the results section. HCL POTASSIUM Routine 09/28/2002 10:31 AM Preop Exam Other Res ults for this CLINICAL LAW PROFESSOR Specified procedure are i n the results section. ZZC Routine 09/28/2002 Preop Exam Other ELECTROCARDIOGRAM, Specified COMP W/READ documented in this encounter Results POTASSIUM (09/28/2002 10:31 AM CLINICAL LAW PROFESSOR) P athologist Signature Potassium 3.8 3.4 - 5.3 [facility] mmol/L CLINIC LAB Specimen Anatomical Collection Method Collection Time Receive d Time (Source) Location / / Volume Laterality 09/28/2002 10:31 09/28/2002 AM CLINICAL LAW PROFESSOR 10:36 AM CLINICAL LAW PROFESSOR Isaac Mason LABORATORY Performing Organization Address City/[facility]/ZIP Code Phon e Number [facility] [address] [place] [id number] [facility] HGB (09/28/2002 10:31 AM CLINICAL LAW PROFESSOR) athologist Signature Hemoglobin 14.6 11.7 - 15.7 [facility] g/dL CLINIC LAB Specimen Anatomical Collection Method Collection Time Receive d Time (Source) Location / / Volume Laterality 09/28/2002 10:31 09/28/2002 AM CLINICAL LAW PROFESSOR 10:36 AM CLINICAL LAW PROFESSOR Isaac Mason LABORATORY Performing Organization Address City/[facility]/ZIP Code Phon e Number [facility] [address], [place] [address] [facility] ELECTROCARDIOGRAM, COMP W/READ (09/28/2002) Narrative This result has an attachment that is no t available. Isaac Mason EKG TECHNICAL documented in this encounter Visit Diagnoses Diagnosis Other specified pre-operative examinatio n - Primary Mixed hyperlipidemia Primary localized osteoarthrosis, lower leg Edema Depressive disorder, not elsewhere class ified Esophageal reflux Unspecified sleep apnea Obesity, unspecified documented in this encounter Care Teams Blaster Helper Relationship Specialty Start Date End Date Nader Garibay MD PCP - General 01/01/02 10/16/17 documented as of this encounter
--- OUTSIDE RECORDS SUMMARY | 2022-10-07 10:55 | XMS_ITS | Encounter Summary ---
:1935 Author Organization [facility] Address [address] [place] [address]. [place] [address] Care Team Providers Name Role Phone Nader Garibay MD Primary Care Provider Reason for Visit Reason Comments Refill Request Encounter Details Date Type Department Care Team Description 07/08/2002 Refill [facility] Jennifer Mason [facility] Efren Refill Request [address] [phone] Social History Tobacco Use Types Packs/Day Years Used Date Smoking Tobacco: Never Assessed Sex Assigned at Date Recorded Not on file documented as of this encounter Miscellaneous Notes Telephone Encounter - 07/08/2002 11:59 PM CDT >> LORRAINE RAMIREZ Mon Jul 12, 2002 8:43 AM >> CALL RECEIVED. Contact: documented in this encounter Plan of Treatment Not on filedocumented as of this encounter Visit Diagnoses Not on filedocumented in this encounter Care Teams Horse Racing Manager Relationship Specialty Start Date End Date Nader Garibay MD PCP - General 01/01/02 10/16/17 documented as of this encounter
--- OUTSIDE RECORDS SUMMARY | 2022-10-07 10:55 | XMS_ITS | Encounter Summary ---
:1935 Author Organization [facility] Address [address] [place] [address] Care Team Providers Name Role Phone Nader Garibay MD Primary Care Provider Encounter Details Date Type Department Care Team Description 08/31/2002 Telephone [facility] Ceferino Alexander MD [facility] NO INFO [address] AVAILABLE [place], [place] [phone] Social History Tobacco Use Types Packs/Day Years Used Date Smoking Tobacco: Never Assessed Sex Assigned at Date Recorded Not on file documented as of this encounter Miscellaneous Notes Telephone Encounter - 08/31/2002 11:59 PM CDT >> PREET HURLEY Deana Sep 09, 2002 4:05 PM Surgery: D & C and hysteroscopy Date: 09/29/02 Time: 12:00 Hospital: [facility] Patient advised to check with insurance company to see if prior authorization or second opinion is needed, make appointment for pre-op physical within the week prior to the surgery. No aspirin 10 days prior to surgery, no Ibuprofen 7 days prior to surgery. Surgery specific and hospital information mailed to patient. Pre-certification inquiry sent to referrals. >> CEFERINO Harvey Sep 08, 2002 11:33 AM Fredy: Please call pt and schedule surgery. Fx D&C, Diagnostic Hysteroscopy. [facility] Thanks >> REMI Amaya Aug 31, 2002 2:55 PM >> CALL RECEIVED. Contact: HOME # AFTER MON. PT. FINISHED JOB THIS.REQ. TO SCHEDULE SURG [email or web address] PREOP WITH DR. KEEN ALSO. SHARRON RAMIREZ FROM [place], [place]. CALL PT. AFTER SUN. 09-05.REMI HOLLIDAY RN documented in this encounter Plan of Treatment Not on filedocumented as of this encounter Visit Diagnoses Not on filedocumented in this encounter Care Teams Program Associate Relationship Specialty Start Date End Date Nader Garibay MD PCP - General 01/01/02 10/16/17 documented as of this encounter
--- OUTSIDE RECORDS SUMMARY | 2022-10-07 10:55 | XMS_ITS | Encounter Summary ---
:1935 Author Organization [facility] Address [address] [place] [address]. [place] [address] Care Team Providers Name Role Phone Nader Garibay MD Primary Care Provider Reason for Visit Reason Comments Pre-Op Exam Encounter Details Date Type Department Care Team Description 09/27/2002 Office Visit [facility] Joshua Butler POSTMENO PAUSAL BLEEDING (Primary Dx); Clinic Tiny Boateng MD VACCINE FOR INFLUENZA [place] NO INFO [address] [place] [address] [place] [phone] Social History Tobacco Use Types Packs/Day Years Used Date Smoking Tobacco: Never Assessed Sex Assigned at Date Recorded Not on file documented as of this encounter Last Filed Vital Signs Vital Sign Reading Time Taken Comments Blood Pressure 120/80 09/27/2002 10:00 AM DIRECTOR REVENUE Pulse - - Temperature - - Respiratory Rate - - Oxygen Saturation - - Inhaled Oxygen Concentration - - Weight 113.1 kg (249 lb 4 oz) 09/27/2002 10:00 AM DIRECTOR REVENUE Height 165.1 cm (5' 5) 09/27/2002 10:00 AM DIRECTOR REVENUE Body Mass Index 41.48 09/27/2002 10:00 AM DIRECTOR REVENUE documented in this encounter Progress Notes 09/27/2002 10:00 AM DIRECTOR REVENUE H&P dictated to [facility]. Scheduled for a FxD&C Diagnostic Hysteroscopy on 09/29/2002 - 1200hr. Complete H &P with Dr Mason on 09/30/2002. Joshua Rodríguez M.D. documented in this encounter Nursing Notes 09/27/2002 10:00 AM CST >> MARIE AMIN 09/27/2002 10:48 am The following medication was given: MEDICATION: flu ROUTE: IM SITE: Arm - Left LOT #: [id number] Dike Supervisor: Lenin Clayton EXPIRATION DATE: 04/19 VIRI Reid >> PREET HURLEY 09/27/2002 10:02 am pre-op exam with Dr. Mason on 09/28/02. documented in this encounter Plan of Treatment Not on filedocumented as of this encounter Procedures Procedure Name Priority Date/Time Associated Diagnosis Comme nts CL HCG, URINE, Routine 09/27/2002 10:10 Postmenopausal Results for this NURSE BACKOFFICE AM DIRECTOR REVENUE Bleeding procedure a re in the results section. documented in this encounter Results HCG, URINE, NURSE BACKOFFICE (09/27/2002 10:10 AM DIRECTOR REVENUE) P athologist Signature HCG Qual Urine neg Joshua Rodríguez MD LABORATORY documented in this encounter Visit Diagnoses Diagnosis Postmenopausal bleeding - Primary Need vaccination-viral disease Need for prophylactic vaccination and in oculation against other viral diseases documented in this encounter Care Teams Resource Specialist Teacher Relationship Specialty Start Date End Date Nader Garibay MD PCP - General 01/01/02 10/16/17 documented as of this encounter
--- OUTSIDE RECORDS SUMMARY | 2022-10-07 10:55 | XMS_ITS | Encounter Summary ---
:1935 Author Organization [facility] Address [address] [place] [address] Care Team Providers Name Role Phone Nader Garibay MD Primary Care Provider Encounter Details Date Type Department Care Team Description 07/27/2002 [facility] [address] [phone] Social History Tobacco Use Types Packs/Day Years Used Date Smoking Tobacco: Never Assessed Sex Assigned at Date Recorded Not on file documented as of this encounter Plan of Treatment Not on filedocumented as of this encounter Procedures Procedure Name Priority Date/Time Associated Diagnosis Comme nts ABSTRACT LABCARE REPORT Routine 07/27/2002 ABSTRACT MAMMO-NO CHARGE Routine 12/05/2000 ABSTRACT PAP (HIM EXTERNAL RESULT) Routine 10/10/2000 documented in this encounter Results ABSTRACT LABCARE REPORT (07/27/2002) Narrative This result has an attachment that is no t available. [facility] LABORATORY ABSTRACT MAMMO-NO CHARGE (12/05/2000) Anatomical Region Laterality Modality Other [facility] GENERAL IMAGING ABSTRACT PAP-NO CHARGE (10/10/2000) [facility] LAB - HIM EXTERNAL RESULT documented in this encounter Visit Diagnoses Not on filedocumented in this encounter Care Teams Warp Tester Relationship Specialty Start Date End Date Nader Garibay MD PCP - General 01/01/02 10/16/17 documented as of this encounter
--- OUTSIDE RECORDS SUMMARY | 2022-10-07 10:55 | XMS_ITS | Encounter Summary ---
:1935 Author Organization [facility] Address [address] [place] [address]. [place] [address] Care Team Providers Name Role Phone Nader Garibay MD Primary Care Provider Diane Alejandra Primary Care Provider Encounter Details Date Type Department Care Team Description 07/08/2002 [facility] Jennifer Mason [address] [phone] Social History Tobacco Use Types Packs/Day Years Used Date Smoking Tobacco: Never Assessed Sex Assigned at Date Recorded Not on file documented as of this encounter Plan of Treatment Not on filedocumented as of this encounter Visit Diagnoses Not on filedocumented in this encounter Care Teams Supervisor Felting Relationship Specialty Start Date End Date Nader Garibay MD PCP - General 01/01/02 10/16/17 Diane Alejandra PCP - General Internal Medicine 10/17/17 [facility] [address] [place] [address] documented as of this encounter
[2022-10-07 13:09] LABS: Cholesterol* 205 mg/dL (90-199); HDL Cholesterol* 57 mg/dL (>=50); LDL Cholesterol Calculated 114 mg/dL (<100); Triglycerides* 170 mg/dL (40-149)
== END 2022-10-07 10:37 | disposition home or self-care (01) ==
PROVIDERS: PCP Internal Medicine; Visit Provider Internal Medicine
DX: E03.9 Hypothyroidism, unspecified (principal); E78.5 Hyperlipidemia, unspecified
CPT/HCPCS: 80061; 84443

== ENCOUNTER 2023-07-24 05:32 | Outpatient (CLI) | payer MEDICARE, BC, SELFPAY ==
--- OUTSIDE RECORDS SUMMARY | 2023-07-26 12:39 | XMS_ITS | Continuity of Care Document ---
Author Name Unknown Organization [facility] Address [address] [address] [place] [address] Phone Care Team Providers Care Internet Programmer Name Role Phone Kev HERNANDEZ, Baird Unavailable [...] Diagnoses Date Provider Providers Copied on Encounter [facility], [address] [address], [place], [place], [id number], tel:[phone] [facility] No Information Kev Hanahim. [address], [id number], . tel:[phone] Israel Collazo MD. tel:[phone] [facility], [address] [address], [place], [place], [id number], tel:[phone] [facility] Diarrhea, unspecified Kev Hanahim. [address] [place] [address], [id number], [place]. tel:[phone] Israel Collazo MD. tel:[phone] erring Provider: Referral Self. Offic/outpt E&m [facility], [address] [address], [place], [place], [id number], tel:[phone] [facility] GI Symptoms or Concerns (chief complaint) Altered bowel habitsDiarrhea , unspecified typeDietary counseling and surveillance Kev Hanahim. [address] [place] [address], [id number], . tel:[phone] Referring Provider: Referral Self. Family History Family Member Type Diagnosis Age At Onset Son Problem (finding) Alive and well Mother Problem (finding) stroke Son Problem (finding) alcoholism Father Problem (finding) malignant neoplasm of l devora Sister Problem (finding) vaginal cancer Payers Payer name Insurance type Covered democrat ID Authorvladislava tibirgit(s) Medicare NGS MB [id number] [facility] [id number] Social History Type Description Quantity Date Captured [...] or vomiting. Patient was recently seen at [facility] where she underwent the following tests: Colonoscopy: Diverticulosis in the descending colon, and in the transverse colon. Patent [id number] ileocolonic anastomosis, characterized by healthy appearing mucosa. [...]
== END 2023-07-24 05:33 | disposition home or self-care (01) ==
LOC: AMB 07-26 12:37
PROVIDERS: PCP Internal Medicine; Visit Provider Family Medicine
DX: M54.9 Dorsalgia, unspecified (principal)
CPT/HCPCS: A0425; A0429

== ENCOUNTER 2023-07-24 06:03 | Observation (INO) | payer MEDICARE, BC, SELFPAY ==
[2023-07-24] VITALS (10 sets, daily range): BP systolic 125–162; BP diastolic 39–86; PULSE 55–63; RESP 12–20; TEMP 36.2–36.7; O2SAT 93–99; BMI 42.8
--- NOTE | 2023-07-24 06:17 | ED.GENADULT ---
HPI - General Adult General Chief complaint: Back Injury/Pain Stated complaint: back pain Time Seen by Provider: 07/24/23 06:16 History of Present Illness HPI narrative: Pt aox4, ABCs intact. Patient arrives via EMS for evaluation of acute on chronic lower back pain. 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 No injury or trauma. 87-year-old woman presenting to the emergency department via EMS later accompanied by her with complaint of severe sharp low back pain she says L4-5. Apparently this began about 3 weeks ago while doing some rotational exercises with OT/PT. She is indicating also that twisting and rotating of the trunk seems to be flaring it; has been taking great care lately. She had canceled follow-up visits and then seemed to do better. 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 Sharp and radiating somewhat to her left hip. I inquire about incontinence of bowel or bladder she notes that she has been incontinent of urine for some time. Does acknowledge a history of a kidney stone once. She has also had bilateral hip replacements. Related Data Home Medications Medication Instructions Recorded Confirmed acetaminophen 500 mg tablet 1,000 mg PO TID PRN 10/07/22 10/07/22 acetaminophen 650 mg 1,300 mg PO PRN 10/07/22 10/07/22 tablet,extended release allopurinol 100 mg tablet 100 mg PO QDAY 10/07/22 07/24/23 dapagliflozin propanediol 10 mg 10 mg PO QDAY 10/07/22 07/24/23 tablet (Farxiga) esomeprazole magnesium 20 mg 20 mg PO .Daily as needed PRN 10/07/22 07/24/23 capsule,delayed release furosemide 20 mg tablet 40 mg PO QDAY 10/07/22 07/24/23 zinc sulfate 50 mg zinc (220 mg) 50 mg PO DAILY 10/07/22 07/24/23 capsule Previous Rx's Medication Instructions Recorded apixaban 5 mg tablet 5 mg PO BID #180 tabs 09/19/22 bupropion HCl 300 mg 24 hr tablet, 300 mg PO QAM #90 tabs 10/07/22 extended release levothyroxine 25 mcg tablet 25 mcg PO QDAY #90 tabs 10/07/22 lisinopril 20 1 tab PO QDAY #90 tabs 10/07/22 mg-hydrochlorothiazide 12.5 mg tablet simvastatin 20 mg tablet 20 mg PO Q48H #45 tabs 10/07/22 Allergies Allergy/AdvReac Type Severity Reaction Status Date / Time clavulanic acid Allergy Verified 07/24/23 06:13 oxycodone Allergy Verified 07/24/23 06:13 tazobactam Allergy Verified 07/24/23 06:13 Tetracyclines Allergy Verified 07/24/23 06:13 Review of Systems Status of ROS: Reports: 6 or more systems reviewed and unremarkable except as noted in History and below [facility] Medical History History of renal stone ?Z87.442 - Personal history of urinary calculi (ICD-10) Surgical History History of cataract surgery ?Z98.49 - Cataract extraction status, unspecified eye (ICD-10) History of total knee replacement (2005) ?Z96.659 - Presence of unspecified artificial knee joint (ICD-10) 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) ?Z96.649 - Presence of unspecified artificial hip joint (ICD-10) History of tonsillectomy (06/04/12) ?Z90.89 - Acquired absence of other organs (ICD-10) History of hysteroscopy (04/22/12) ?Z98.890 - Other specified postprocedural states (ICD-10) History of colon surgery (2004) ?Z98.890 - Other specified postprocedural states (ICD-10) History of appendectomy (08/10/10) ?Z90.49 - Acquired absence of other specified parts of digestive tract (ICD-10) Social History Smoking Status: Never smoker How often do you have a drink containing alcohol: never AUDIT-C Alcohol total score: 0 Non-prescribed substance use: denies use Caffeine: No Little interest or pleasure in doing things: not at all Feeling down, depressed, or hopeless: not at all service: No Exam Narrative: Exam Narrative: NAD. Lying flat in the bed. Breathing easily. Heart in regular rate and rhythm little slower. Abdomen is overweight soft. Bilateral little more than 1+ pitting edema lower extremities through her feet. Patch of faint erythema though not with notable calor on the anterior lower right tibia. I asked her to roll over she says she does not sleep on her side anymore seems to indicate that she would have trouble rolling over although begins to mobilize and indicates that she does feel better now that she has been lying flat. Palpating across the back she indicates area of pain the low lumbar spine. Not clearly reproducible in the SI joint on the left but does indicate some regional area pain. No piriformis pain. Const: Vital Signs, click to edit/add: Vital Signs - 24 hr 07/24/23 06:13 07/24/23 07:47 07/24/23 07:52 Temperature 97.1 F L 98.0 F Pulse Rate [Pulse Oximeter] 63 Respiratory Rate 20 18 Blood Pressure [Ri ght Upper Arm] 162/66 H 156/58 H Pulse Oximetry 99 96 Oxygen Delivery Me thod Room Air Room Air Documenting provider has reviewed patient's vital signs: yes Course Vital Signs Vital signs: Initial Vital Signs Temperature 97.1 F L 07/24/23 06:13 Temperature Source Temporal Artery Scan 07/24/23 06:13 Pulse Rate 63 07/24/23 06:13 Pulse Rhythm Regular 07/24/23 06:13 Pulse Strength 3+ Normal 07/24/23 06:13 Respiratory Rate 20 07/24/23 06:13 Blood Pressure 162/66 H 07/24/23 06:13 Blood Pressure Mean 98 07/24/23 06:13 Pulse Oximetry 99 07/24/23 06:13 Oxygen Delivery Method Room Air 07/24/23 06:13 Vital Signs Temperature 97.1 F L 07/24/23 06:13 Pulse Rate 63 07/24/23 06:13 Respiratory Rate 20 07/24/23 06:13 Blood Pressure 162/66 H 07/24/23 06:13 Pulse Oximetry 99 07/24/23 06:13 Oxygen Delivery Method Room Air 07/24/23 06:13 Temperature 98.0 F 07/24/23 07:47 Pulse Rate 63 07/24/23 06:13 Respiratory Rate 18 07/24/23 07:52 Blood Pressure 156/58 H 07/24/23 07:52 Pulse Oximetry 96 07/24/23 07:52 Oxygen Delivery Method Room Air 07/24/23 07:52 Medical Decision Making MDM Narrative Medical decision making narrative: Seems to be having acute on chronic pain. She notes her history of stage 4 kidney disease and says that has to be careful of pain medicine. She had some acetaminophen about 2 hours ago. This could be worsening disc herniation, SI joint pain, ureteral stone and colic. Facet arthropathy? Will test with a couple tabs of [place] and Zofran just in case developing nausea. Then attempt to mobilize. She may be a little improved already. I do not think imaging is necessary at this point. Approximately 50 minutes after dosing with 2 tabs of [place] have attempted to mobilize. She says she is in too much pain. [facility] Will also collect urinalysis. Anticipating then admission but will also do a lumbar CT. Have discussed with hospitalist that I anticipate need for admission. Urinalysis is grossly positive though asymptomatic beyond her usual/chronic urgency and in continence. Lumbar spine imaging by my read shows diffuse osteoarthritic changes and vacuum disc phenomenon. Pending radiology over-read. Patient still reporting too much pain to mobilize but is already slurring her words. Lab Data Labs: Lab Results 07/24/23 Range/Units 07:42 Urine Color Yellow (Yellow) Urine Appearance Slightly Cloudy A (Clear) Urine pH 6.5 (5.0-8.5) Ur Specific [place] 1.010 (1.000-1.030) Urine Protein Negative (Negative) Urine Glucose (UA) Trace A (Negative) Urine Ketones Negative (Negative) Urine Blood 1+ A (Negative) Urine Nitrite Negative (Negative) Urine Bilirubin Negative (Negative) Urine Urobilinogen 0.2 (0.2-1.0) Ur Leukocyte Esterase 3+ A (Negative) Urine RBC 2-5 A (0-2) Urine WBC 25-50 A (0-5) Ur Squamous Epith Cells Few (None-Few) Urine Bacteria Moderate A (None) Discharge Plan Discharge Clinical Impression: Acute exacerbation of chronic low back pain Patient Disposition: Admitted As Observation Condition: Stable
[2023-07-24] MEDS: ONDANSETRON ODT 4 MG TAB PO (06:40)
[2023-07-24] MEDS: HYDROCODONE-ACETAMIN 5-325 MG 1 TAB 2 TAB PO (06:40)
--- OUTSIDE RECORDS SUMMARY | 2023-07-24 07:04 | XMS_ITS | Continuity of Care Document ---
Author Name Unknown Organization [facility] Address [address] [address] [place] [address] Phone Care Team Providers Care Metallurgy Laboratory Technician Name Role Phone Kev HERNANDEZ, Baird Unavailable [...] Diagnoses Date Provider Providers Copied on Encounter [facility], [address] [address], [place], [place], [id number], tel:[phone] [facility] No Information Kev Hanahim. [address], [id number], . tel:[phone] Israel Collazo MD. tel:[phone] [facility], [address] [address], [place], [place], [id number], tel:[phone] [facility] Diarrhea, unspecified Kev Hanahim. [address] [place] [address], [id number], [place]. tel:[phone] Israel Collazo MD. tel:[phone] erring Provider: Referral Self. Offic/outpt E&m [facility], [address] [address], [place], [place], [id number], tel:[phone] [facility] GI Symptoms or Concerns (chief complaint) Altered bowel habitsDiarrhea , unspecified typeDietary counseling and surveillance Kev Hanahim. [address] [place] [address], [id number], . tel:[phone] Referring Provider: Referral Self. Family History Family Member Type Diagnosis Age At Onset Son Problem (finding) Alive and well Mother Problem (finding) stroke Son Problem (finding) alcoholism Father Problem (finding) malignant neoplasm of l devora Sister Problem (finding) vaginal cancer Payers Payer name Insurance type Covered alliance party ID Authorvladislava tibirgit(s) Medicare NGS MB [id number] [facility] [id number] Social History Type Description Quantity Date Captured [...] or vomiting. Patient was recently seen at [facility] where she underwent the following tests: Colonoscopy: Diverticulosis in the descending colon, and in the transverse colon. Patent [id number] ileocolonic anastomosis, characterized by healthy appearing mucosa. [...] No Information Instructions Date Instruction Additional Infor jacquie Diarrhea Related to Diarr hea, unspecified type Lifestyle education regarding di et Related to Dietary counseling and surveillance CT Abdomen And Pelvi s WITHOUT And WITH Contrast Assessments Type Assessment Date No Information Patient Care Teams Name Effective Dates (start - stop) Status Members No Information
--- NOTE | 2023-07-24 07:36 | CRLHL7_ITS ---
For Patients: As a result of the Century Cures Act, medical imaging exams and procedure reports are released immediately into your electronic medical record. You may view this report before your referring provider. If you have questions, please contact your health care provider. Indication: SEVERE LOW BACK PAIN, LT LEG PAIN W/MOVEMENT Technique: Noncontrast axial CT of the lumbar spine with coronal and sagittal reformats are provided. Comparison: No prior studies are available for comparison at this institution. Findings: Normal lumbar lordosis. No spondylosis. Bone demineralization. Degenerative grade 1 anterolisthesis at L4-5. 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 Incidental bone island in the T12 vertebral body. Bilateral hip arthroplasty hardware. Right renal cyst. Nonobstructing right renal calculi. Sacroiliac joint degenerative changes. T12-L1: No significant spinal canal stenosis or neural foramen narrowing. L1-2: Shallow disc bulge endplate osteophytic spurring. Moderate facet arthrosis. Mild neural from narrowing. No significant spinal canal stenosis. L2-3: Circumferential disc bulge and endplate osteophytic spurring. Moderate facet arthrosis. Mild right subarticular recess narrowing. Moderate right and severe left neural from narrowing. L3-4: Circumferential disc bulge and endplate osteophytic spurring. Moderate facet arthrosis. Moderate left and mild right subarticular recess stenosis. Moderate bilateral neural foramen narrowing. L4-5: Grade 1 anterolisthesis. Diffuse uncovering of the disc. Advanced facet arthrosis. Severe left and moderate right neural foramen narrowing. Mild spinal canal stenosis. L5-S1: Disc bulge and endplate osteophytic spurring. Advanced facet arthrosis. No spinal canal stenosis. Mild neural foramen narrowing bilaterally. Impression: 1. No convincing radiographic evidence of acute osseous injury. 2. Moderate scattered degenerative changes of the lumbar spine. 3. Bone demineralization. Please note that all CT scans at this facility use dose modulation, iterative reconstruction, and/or weight-based dosing when appropriate to reduce radiation dose to as low as reasonably achievable. Dictated by Alexsander Mccarthy MD @ 07/24/2023 9:23:46 AM (Electronically Signed)
--- NOTE | 2023-07-24 07:48 | PC.NURSE ---
pt attempted to stand with assist of 1, using walker and was able to get up with some difficulty. States pain 10/10 with shooting pain into left hip from lumbar area. Pt states she is unable to take more than 1-2 steps using walker and SBA, cannot lift left leg off ground, shuffles to move. Reapplied bilateral leg wraps for lymphedema.
[2023-07-24 07:49] LABS: Appearance Urine Slightly Cloudy (Clear); Bilirubin Urine Negative (Negative); Blood Urine 1+ (Negative); Color Urine Yellow (Yellow); Glucose Urine Trace (Negative); Ketones Urine Negative (Negative); Leukocyte Esterase Urine 3+ (Negative); Nitrite Urine Negative (Negative); Protein Urine Negative (Negative); Urobilinogen Urine 0.2 (0.2-1.0); pH Urine 6.5 (5.0-8.5)
--- NOTE | 2023-07-24 08:03 | PC.NURSE ---
pt to radiology via cart.
[2023-07-24 08:12] LABS: Bacteria Urine Moderate; Squamous Epithelial Cell Urine Few (None-Few); WBC Urine 25-50 (0-5)
[2023-07-24] MEDS: ACETAMINOPHEN 500 MG TABLET 1000 MG PO ×2 (10:11→18:02)
--- NOTE | 2023-07-24 10:21 | ED.NURSE ---
Report given to M/S RN by VIRI Hogue. Pt to M/S via cart with belongings.
[2023-07-24 12:38] LABS: Basophils Absolute Auto 0.02 K/uL (0.00-0.30); Basophils Percent Auto 0.3 % (0.0-3.0); Eosinophils Absolute Auto 0.08 K/uL (0.00-0.50); Eosinophils Percent Auto 1.2 % (0.0-7.0); Hematocrit 37.9 % (33.0-51.0); Hemoglobin* 11.6 gm/dL (12.0-16.0); Immature Granulocytes Abs Auto 0.03 K/uL (0.00-0.30); Immature Granulocytes Pct Auto 0.4 %; Lymphocytes Percent Auto 16.7 % (20-44); Mean Corpuscular HGB Conc 31 gm/dL (32-36); Mean Corpuscular Hemoglobin 29 pg (26-34); Mean Corpuscular Volume 94 fL (80-100); Monocytes Percent Auto 5.5 % (0.0-11.0); Neutrophils Percent Auto 75.9 % (42.0-72.0); Platelet Count* 205 K/uL (140-440); Red Blood Count 4.02 m/uL (4.00-5.20)
[2023-07-24 12:39] LABS: Slide Review Reflex No
[2023-07-24 12:50] LABS: Albumin* 4.1 g/dL (3.3-5.0); Chloride* 103 mmol/L (96-114)
[2023-07-24 12:51] LABS: Sodium* 140 mmol/L (135-149)
[2023-07-24 12:53] LABS: Alanine Aminotransferase* 22 U/L (4-35); Alkaline Phosphatase* 58 U/L (40-150); Aspartate Amino Transferase* 27 U/L (12-35); Bilirubin Total* 0.4 mg/dL (0.1-1.5); Blood Urea Nitrogen* 50 mg/dL (7-30); Carbon Dioxide* 32 mmol/L (20-32); Creatinine* 1.7 mg/dL (0.5-1.5); Est. Creatinine Clearance* 21.77; Estimated Glomerular Filt Rate 29 ml/min; Total Protein* 6.8 g/dL (6.0-8.3)
[2023-07-24 12:54] LABS: Calcium* 9.8 mg/dL (8.4-10.6); Glucose* 105 mg/dL (60-115); Uric Acid* 7.8 mg/dL (2.2-8.4)
[2023-07-24 12:55] LABS: Anion Gap 5 mEq/L (7-15)
[2023-07-24 12:56] LABS: C Reactive Protein* 0.6 mg/dL (0.5-1.0)
[2023-07-24] MEDS: allopurinoL 100 MG TABLET 50 MG PO (14:16)
[2023-07-24] MEDS: APIXABAN 5 MG TABLET PO ×2 (14:17→20:59)
[2023-07-24] MEDS: lisinopriL 20 MG TABLET PO (14:18)
[2023-07-24] MEDS: buPROPion XL 150 MG TABLET 300 MG PO (14:18)
[2023-07-24] MEDS: LIDOCAINE 5% PATCH 1 PATCH TRANSDERMA (14:19)
[2023-07-24] MEDS: TORSEMIDE 5 MG TABLET 10 MG PO (14:19)
[2023-07-24] MEDS: Dapagliflozin Propanediol [Farxiga] 10 mg tablet 10 EACH PO (14:20)
--- NOTE | 2023-07-24 14:59 | PC.NURSE ---
Patient arrived in Med Surg from ER at 1020. Patient pleasant, A&O. Low back pain rated 10/10 when arriving on unit. PRN Tylenol administered in ER at 1015 prior to arrival on unit. Patient reported back pain had improved and rated pain 7/10 at 1400. Patient declined pain medications or an ice pack at that time. Scheduled Lidocaine patch applied to middle low back at 1417. O2 97-99% on RA. Patient has reported some nausea at times. Tolerated regular diet well. Transfers and ambulates with wheeled walker and assist of one. Patient reports she is incontinent of bladder and wears a maxi incontinent pad. Patients at bedside at this time. Patient reports she lives at home with her and 58-year old son diagnosed with Asperger's. Patient reports that rarely her son will yell. Patient feels safe in her home.
--- NOTE | 2023-07-24 19:04 | PC.NURSE ---
End of Shift: Patient pleasant and cooperative, A/O. Patient vitally stable, lungs clear, BS WNL, IV intact. Patient rates pain 3/10, tylenol given once. Patient 1 assist/SBA, walker. Patient uses toilet but does dribble. Patient tolerating regular diet.
[2023-07-24] MEDS: SIMVASTATIN 20 MG TABLET PO (20:59)
[2023-07-24] MEDS: MELATONIN 3 MG TABLET PO (20:59)
[2023-07-24] MEDS: SODIUM CHLORIDE 0.9 % (FLUSH) 10 ML SYRINGE 5 ML IVF (21:00)
[2023-07-25 00:36] VITALS: BP 138/51; PULSE 67; RESP 18; TEMP 36.6; O2SAT 94
[2023-07-25 01:26] VITALS: PULSE 58; O2SAT 94
[2023-07-25 04:19] VITALS: BP 139/52; PULSE 64; RESP 18; TEMP 36.4; O2SAT 97
[2023-07-25] MEDS: LEVOTHYROXINE 25 MCG TABLET PO (06:07)
[2023-07-25] MEDS: MORPHINE 2 MG/ML inj IVP (06:07)
[2023-07-25] MEDS: SODIUM CHLORIDE 0.9 % (FLUSH) 10 ML SYRINGE 5 ML IVF ×2 (06:07→09:41)
--- NOTE | 2023-07-25 07:00 | PC.NURSE ---
2314-2391: A&Ox3. Patient c/o back pain that radiates to the L. hip. Pain tolerable while lying supine but increases w/movement. Jorgito HERNANDEZ notified and PRN Morphine ordered and administered for relief. Ice pack provided as well. A1/walker/GB. Eating and voiding.
[2023-07-25] MEDS: ACETAMINOPHEN 500 MG TABLET 1000 MG PO (07:38)
[2023-07-25 07:41] VITALS: BP 129/41; PULSE 60; RESP 60; TEMP 36.4; O2SAT 95
[2023-07-25 08:35] LABS: HCO3 VBG 29 mmol/L (21-28); Lactate* 0.8 mmol/L (0.5-1.9); PCO2 VBG 58 mmHG (40-50); pH VBG 7.317 (7.32-7.43)
[2023-07-25 08:36] LABS: Basophils Absolute Auto 0.02 K/uL (0.00-0.30); Basophils Percent Auto 0.3 % (0.0-3.0); Eosinophils Percent Auto 1.6 % (0.0-7.0); Hematocrit 38.7 % (33.0-51.0); Hemoglobin* 11.7 gm/dL (12.0-16.0); Immature Granulocytes Abs Auto 0.03 K/uL (0.00-0.30); Immature Granulocytes Pct Auto 0.5 %; Lymphocytes Absolute Auto 1.38 K/uL (0.90-2.90); Lymphocytes Percent Auto 22.5 % (20-44); Mean Corpuscular HGB Conc 30 gm/dL (32-36); Mean Corpuscular Hemoglobin 29 pg (26-34); Mean Corpuscular Volume 95 fL (80-100); Monocytes Percent Auto 6.4 % (0.0-11.0); Neutrophils Percent Auto 68.7 % (42.0-72.0); Platelet Count* 194 K/uL (140-440); RDW Coefficient of Variation % 14.2 % (11.5-15.5); Red Blood Count 4.07 m/uL (4.00-5.20); White Blood Count* 6.12 K/uL (4.50-11.00)
[2023-07-25 08:37] LABS: Slide Review Reflex No
--- NOTE | 2023-07-25 08:57 | P.IMPN_ITS ---
Subjective Date Seen: 07/25/23 Interval history: Daily Progress Note - Hospital Medicine Day #: 2 CC: acute on chronic back pain, poor mobility OVERNIGHT UPDATES FROM STAFF & MED, LAB, IMAGING UPDATES -Needed morphine IV overnight -needed 1A for movement from the bed to the chair Lumbar CT from admission day (07/24/23) 1. No convincing radiographic evidence of acute osseous injury. 2. Moderate scattered degenerative changes of the lumbar spine. 3. Bone demineralization. Objective: Vitals: see above Lungs: Clear. Cardiac: S1S2. Disposition/Potential discharge - Likely to return to previous living situation. Today I spent 50minutes seeing the patient, reviewing Expanse and EPIC notes/diagnostics, discussing the care plan with our care time that includes social work, PT/OT, pharmacy, RT, detention and documenting my impressions and plan in the medical record. ACP first 30 mins [id number] I went over options for care during this current hospitalization and explained the difference between palliative care and hospice care. I described the likelihood of returning to previous functioning and what the options are going forward for care. Exam Const: Vital Signs, click to edit/add: Vital Signs - 24 hr 07/24/23 09:45 07/24/23 10:35 07/24/23 10:35 Temperature 97.8 F Pulse Rate Pulse Rate [Bilate ral Radial] 60 Respiratory Rate 14 16 Blood Pressure [Le ft Arm] 142/46 H Blood Pressure [Le ft Forearm] Blood Pressure [Ri ght Upper Arm] 125/64 Pulse Oximetry 93 98 98 Oxygen Delivery Me thod Room Air Room Air Room Air 07/24/23 10:35 07/24/23 11:43 07/24/23 11:43 Temperature 97.8 F Pulse Rate 55 L Pulse Rate [Bilate ral Radial] 60 Respiratory Rate 16 Blood Pressure [Le ft Arm] 142/46 H Blood Pressure [Le ft Forearm] Blood Pressure [Ri ght Upper Arm] Pulse Oximetry 98 97 Oxygen Delivery Me thod Room Air Room Air 07/24/23 15:11 07/24/23 15:20 07/24/23 15:20 Temperature 97.8 F Pulse Rate 56 L Pulse Rate [Bilate ral Radial] 61 Respiratory Rate 12 Blood Pressure [Le ft Arm] 138/39 L Blood Pressure [Le ft Forearm] Blood Pressure [Ri ght Upper Arm] Pulse Oximetry 96 96 Oxygen Delivery Me thod Room Air 07/24/23 15:20 07/24/23 19:14 07/24/23 20:59 Temperature 97.8 F 97.8 F Pulse Rate Pulse Rate [Bilate ral Radial] 61 63 Respiratory Rate 12 16 Blood Pressure [Le ft Arm] 125/86 Blood Pressure [Le ft Forearm] Blood Pressure [Ri ght Upper Arm] Pulse Oximetry 96 Oxygen Delivery De thod Room Air 07/25/23 00:36 07/25/23 01:26 07/25/23 01:26 Temperature 97.8 F Pulse Rate 58 L Pulse Rate [Bilate ral Radial] 67 Respiratory Rate 18 Blood Pressure [Le ft Arm] 138/51 L Blood Pressure [Le ft Forearm] Blood Pressure [Ri ght Upper Arm] Pulse Oximetry 94 94 [facility] 07/25/23 04:19 07/25/23 07:41 Temperature 97.6 F 97.5 F L Pulse Rate Pulse Rate [Bilate ral Radial] 64 60 Respiratory Rate 18 60 H Blood Pressure [Le ft Arm] 139/52 L Blood Pressure [Le ft Forearm] 129/41 L Blood Pressure [Ri ght Upper Arm] Pulse Oximetry 97 95 Oxygen Delivery De thod Room Air Room Air Labs Labs: Laboratory Results - last 24 hr 07/24/23 07/25/23 12:14 08:30 WBC 6.70 6.12 RBC 4.02 4.07 Hgb 11.6 L 11.7 L Hct 37.9 38.7 MCV 94 95 MCH 29 29 MCHC 31 L 30 L RDW Coeff of Baylee 14.0 14.2 Plt Count 205 194 Neut % (Auto) 75.9 H 68.7 Lymph % (Auto) 16.7 L 22.5 [place] % (Auto) 5.5 6.4 Eos % (Auto) 1.2 1.6 Baso % (Auto) 0.3 0.3 Neut # (Auto) 5.10 4.20 Lymph # (Auto) 1.10 1.38 [place] # (Auto) 0.40 0.40 Eos # (Auto) 0.08 0.10 Baso # (Auto) 0.02 0.02 Abs Immat Gran (auto) 0.03 0.03 Imm/Tot Granulo (auto) 0.4 0.5 VBG pH 7.317 L VBG pCO2 58 H VBG pO2 24.0 L VBG HCO3 29 H Sodium 140 Potassium 5.0 Chloride 103 Carbon Dioxide 32 Anion Gap 5 L BUN 50 H Creatinine 1.7 H Estimated Creat Clear 21.77 Estimated GFR 29 Glucose 105 Lactate 0.8 Uric Acid 7.8 Calcium 9.8 Total Bilirubin 0.4 AST 27 ALT 22 Alkaline Phosphatase 58 C-Reactive Protein 0.6 Total Protein 6.8 Albumin 4.1
[2023-07-25 08:58] LABS: Chloride* 105 mmol/L (96-114); Potassium* 5.4 mmol/L (3.6-5.1); Sodium* 140 mmol/L (135-149)
[2023-07-25 09:01] LABS: Est. Creatinine Clearance* 18.51; Estimated Glomerular Filt Rate 24 ml/min
[2023-07-25 09:02] LABS: Anion Gap 7 mEq/L (7-15); Blood Urea Nitrogen* 60 mg/dL (7-30); Calcium* 9.9 mg/dL (8.4-10.6); Carbon Dioxide* 28 mmol/L (20-32); Glucose* 105 mg/dL (60-115)
[2023-07-25 09:05] LABS: C Reactive Protein* 0.7 mg/dL (0.5-1.0)
--- NOTE | 2023-07-25 09:08 | P.IMHP_ITS ---
Hospitalist- H&P: HPI History of Present Illness Date Seen: 07/24/23 Chief complaint: back pain Narrative: ADMISSION HISTORY AND PHYSICAL - HOSPITALIST Chief Complaint: Back spasm HPI: This is an 87-year-old with known chronic lumbar degenerative disc disease who has been seeing outpatient physical therapy who presented to our emergency room in an acute pain crisis. No obvious injury or fall. 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 It does not radiate down her left leg. No fever. No other symptoms. She tried sitting and lying without relief. She had taken Tylenol 5-6 hours prior so she did not repeat this dose. She does not take opioids. She has chronic kidney disease and does not take NSAIDs. She has never had surgery on her back. She previously in years past, has had epidural steroid injections that have helped. She asked her after not improving over 3 hours to bring her to the emergency room ER COURSE: Lumbar CT, oral Zofran and [place]. Unable to ambulate and self-care so hospital medicine team was asked to admit. CODE STATUS: EMERGENCY CONTACT PLAN: Dalton, her . Dusty Yap? ?Rel to [facility]? [phone]?Home Phone? I've updated the PFSH, medications and allergies in the Expanse tabs. INVESTIGATIONS: LABS/MICRO/ECG/IMAGING Lumbar CT unremarkable. Labs revealed her chronic kidney disease with a baseline creatinine of 1.7. GFR 23. No other electrolyte abnormalities. No white count. CRP 2.5 REVIEW OF SYSTEMS: 12-point ROS completed with patient and negative unless otherwise stated in HPI or below. PHYSICAL EXAM: CONSTITUTIONAL: Conversive, good historian. A/O. Knows setting and context. She appears comfortable lying in the gurney. She needed help to sit upright on the edge of the bed. She would wince with pain in her low back. She was able to slowly stand with a walker. No asymmetrical weakness. Chronic lymphedema noted. VITAL SIGNS: see record. HEENT: Normocephalic, atraumatic. PERRL, EOMI, conjunctivae pink, no scleral icterus. Ears and nose externally normal. Pharynx normal. NECK: No JVD. No carotid bruit, no thyromegaly, no adenopathy. CHEST: Clear to auscultation bilaterally HEART: S1 and S2 normal. No harsh murmurs. Edema 2 to 3+ MUSCULOSKELETAL: No gross joint deformity or swelling. NEURO: Cranial nerves intact. Grossly intact. No asymmetric findings. SKIN: No rashes, petechiae, concerning changes PSYCHIATRIC: Euthymic. ADMIT TO MEDSURG: FLOOR CARE DVT: Lovenox GI: PO intake Time spent: Today I spent 75 minutes seeing the patient, discussing the patient with ER staff, reviewing Expanse and EPIC notes/diagnostics, discussing the care plan with our care time that includes social work, PT/OT, pharmacy, RT, usp and documenting my impressions and plan in the medical record. [facility] Medical History (Updated 07/25/23 @ 09:37 by Valeria Alfredo MD) Lymphedema ?I89.0 - Lymphedema, not elsewhere classified (ICD-10) Restless legs syndrome (08/10/10) ?G25.81 - Restless legs syndrome (ICD-10) Peripheral neuropathy (2010) ?G62.9 - Polyneuropathy, unspecified (ICD-10) Osteoporosis ?M81.0 - Age-related osteoporosis without current pathological fracture (ICD- 10) Hyperlipidemia (08/10/10) ?E78.5 - Hyperlipidemia, unspecified (ICD-10) Gout ?M10.9 - Gout, unspecified (ICD-10) Gastroesophageal reflux (08/10/10) ?K21.9 - Gastro-esophageal reflux disease without esophagitis (ICD-10) History of renal stone ?Z87.442 - Personal history of urinary calculi (ICD-10) Surgical History (Updated 07/25/23 @ 09:16 by Valeria Alfredo MD) 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) ?G57.31 - Lesion of lateral popliteal nerve, right lower limb (ICD-10) History of cataract surgery ?Z98.49 - Cataract extraction status, unspecified eye (ICD-10) History of total knee replacement (2005) ?Z96.659 - Presence of unspecified artificial knee joint (ICD-10) 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 nonsmoker. uses a lift recliner and walker in her home. What is your current living situation?: I presently have a place to live Problems where you live: no known problems Problems where you live details: Two steps from garage into house In the past 12 months, utilities in danger of being shut off: no In the past 12 mos, have been you worried that your food would run out before you had money to buy more?: never true In the past 12 mos, the food you bought just didn't last and you didn't have money to buy more?: never true Highest level of school completed/degree received: some college, no degree Smoking Status: Never smoker How often do you have a drink containing alcohol: 2-3 times a week Alcohol type: wine How often do you have six or more drinks on one occasion: Never AUDIT-C Alcohol total score: 3 Non-prescribed substance use: denies use Caffeine: Yes (Half caffinated coffee) How often does anyone, including family, friends and others, physically hurt you : never How often does anyone, including family, friends and others, insult or talk down to you: never How often does anyone, including family, friends and others, threaten you with harm: never How often does anyone, including family, friends and others, scream or curse at you: rarely Little interest or pleasure in doing things: not at all Feeling down, depressed, or hopeless: not at all service: No Meds Home Medications and Allergies Home Medications Medication Instructions Recorded Confirmed Type acetaminophen 650 mg 1,300 mg PO Q8H 10/07/22 07/24/23 History tablet,extended release allopurinol 100 mg tablet 50 mg PO DAILY 10/07/22 07/24/23 History dapagliflozin propanediol 10 mg 10 mg PO QDAY 10/07/22 07/24/23 History tablet (Farxiga) esomeprazole magnesium 20 mg 20 mg PO DAILY PRN 10/07/22 07/24/23 History capsule,delayed release zinc sulfate 50 mg zinc (220 mg) 50 mg PO DAILY 10/07/22 07/24/23 History capsule clobetasol 0.05 % topical ointment 1 applic topical DAILY PRN 07/24/23 07/24/23 History lisinopril 20 mg tablet 20 mg PO DAILY 07/24/23 07/24/23 History multivitamin (Daily Multi-Vitamin 1 tab PO DAILY 07/24/23 07/24/23 History tablet) torsemide 10 mg tablet 10 mg PO DAILY 07/24/23 07/24/23 History Allergies Allergy/AdvReac Type Severity Reaction Status Date / Time clavulanic acid Allergy Verified 07/24/23 06:13 oxycodone Allergy Verified 07/24/23 06:13 tazobactam Allergy Verified 07/24/23 06:13 Tetracyclines Allergy Verified 07/24/23 06:13 Exam Const: Vital Signs, click to edit/add: Vital Signs - 24 hr 07/24/23 09:45 07/24/23 10:35 07/24/23 10:35 Temperature 97.8 F Pulse Rate Pulse Rate [Bilate ral Radial] 60 Respiratory Rate 14 16 Blood Pressure [Le ft Arm] 142/46 H Blood Pressure [Le ft Forearm] Blood Pressure [Ri ght Upper Arm] 125/64 Pulse Oximetry 93 98 98 [facility] Room Air Room Air 07/24/23 10:35 07/24/23 11:43 07/24/23 11:43 Temperature 97.8 F Pulse Rate 55 L Pulse Rate [Bilate ral Radial] 60 Respiratory Rate 16 Blood Pressure [Le ft Arm] 142/46 H Blood Pressure [Le ft Forearm] Blood Pressure [Ri ght Upper Arm] Pulse Oximetry 98 97 [facility] Room Air 07/24/23 15:11 07/24/23 15:20 07/24/23 15:20 Temperature 97.8 F Pulse Rate 56 L Pulse Rate [Bilate ral Radial] 61 Respiratory Rate 12 Blood Pressure [Le ft Arm] 138/39 L Blood Pressure [Le ft Forearm] Blood Pressure [Ri ght Upper Arm] Pulse Oximetry 96 96 Oxygen Delivery Me thod Room Air 07/24/23 15:20 07/24/23 19:14 07/24/23 20:59 Temperature 97.8 F 97.8 F Pulse Rate Pulse Rate [Bilate ral Radial] 61 63 Respiratory Rate 12 16 Blood Pressure [Le ft Arm] 125/86 Blood Pressure [Le ft Forearm] Blood Pressure [Ri ght Upper Arm] Pulse Oximetry 96 Oxygen Delivery Mi thod Room Air 07/25/23 00:36 07/25/23 01:26 07/25/23 01:26 Temperature 97.8 F Pulse Rate 58 L Pulse Rate [Bilate ral Radial] 67 Respiratory Rate 18 Blood Pressure [Le ft Arm] 138/51 L Blood Pressure [Le ft Forearm] Blood Pressure [Ri ght Upper Arm] Pulse Oximetry 94 94 Oxygen Delivery Mi thod Room Air 07/25/23 04:19 07/25/23 07:41 Temperature 97.6 F 97.5 F L Pulse Rate Pulse Rate [Bilate ral Radial] 64 60 Respiratory Rate 18 60 H Blood Pressure [Le ft Arm] 139/52 L Blood Pressure [Le ft Forearm] 129/41 L Blood Pressure [Ri ght Upper Arm] Pulse Oximetry 97 95 Oxygen Delivery Mi thod Room Air Room Air Hospitalist - H&P: Result Labs Labs: Short CBC 07/24/23 07/25/23 Range/Units 12:14 08:30 WBC 6.70 6.12 (4.50-11.00) K/uL Hgb 11.6 L 11.7 L (12.0-16.0) gm/dL Hct 37.9 38.7 (33.0-51.0) % Plt Count 205 194 (140-440) K/uL BMP 07/24/23 12:14 Sodium 140 Potassium 5.0 Chloride 103 Carbon Dioxide 32 BUN 50 H Creatinine 1.7 H Glucose 105 Calcium 9.8 Liver Function 07/24/23 Range/Units 12:14 Total Bilirubin 0.4 (0.1-1.5) mg/dL AST 27 (12-35) U/L ALT 22 (4-35) U/L Alkaline Phosphatase 58 (40-150) U/L Albumin 4.1 (3.3-5.0) g/dL Assessment and Plan Assessment and plan (1) Acute exacerbation of chronic low back pain: Problem comment: -pain management -Lumbar CT reviewed. No acute findings. -could consider MR, xrays of pelvis and left hip but no trauma -avoid NSAIDS due to GFR Status: Acute (2) Chronic low back pain: Problem comment: Multifactorial: lumbar facet arthropathy, core muscle weakness. Did back injection/PT/started gabapentin 04/03 (which she stopped on her own because she is convinced it contributes to her chronic pedal edema) -has reengaged with outpatient PT prior to admission Status: Acute (3) Physical deconditioning: Problem comment: Has dyspnea on exertion, TTE satisfactory 01/30 Status: Acute (4) Chronic kidney disease, stage 4 (severe): Problem comment: Stage 4 on 05/11/21 Nephro note. Likely due to NSAID use. Status: Acute (5) Lymphedema: Problem comment: Multifactorial. (On Lasix in past), previous [facility] - now at [place] OT -does wraps Status: Acute (6) History of deep vein thrombosis (DVT) of lower extremity: Problem comment: Left sided, 09/07, on apixaban (She will need 6 months of Apixaban for first- ever non-provoked DVT) - as of 08/09 was still taking Status: Acute (7) Obstructive sleep apnea syndrome: Problem comment: on CPAP, latest PSG 10/01 helped redefine pressures Status: Acute (8) Hypothyroidism: Problem comment: Dxed 12/29, on levothyroxine Status: Acute (9) Essential hypertension: Problem comment: Treatment started 05/29, now followed by [facility] since 2020 Status: Acute (10) Chronotropic incompetence: Problem comment: Early but no symptoms. Pacemaker not justified. See [facility] note of 05/10/21 (Dr. Simeon Clement), he told her dyspnea was chronic and related to physiologic cooling rather than any pathology and fatigue was also non pathologic. Status: Acute (11) Depression: Problem comment: on Cymbalta in past, on bupropion since Spring 2014 Status: Acute (12) Mixed stress and urge incontinence: Problem comment: mixed stress and urge, [facility] started oxybutynin 04/02 now on this and Myrbetriq Status: Acute (13) Morbid obesity with body mass index (BMI) of 40.0 or higher: Status: Acute
[2023-07-25] MEDS: buPROPion XL 150 MG TABLET 300 MG PO (09:38)
[2023-07-25] MEDS: allopurinoL 100 MG TABLET 50 MG PO (09:38)
[2023-07-25] MEDS: TORSEMIDE 5 MG TABLET 10 MG PO (09:38)
[2023-07-25] MEDS: lisinopriL 20 MG TABLET PO (09:39)
[2023-07-25] MEDS: APIXABAN 5 MG TABLET PO (09:39)
[2023-07-25] MEDS: Dapagliflozin Propanediol [Farxiga] 10 mg tablet 10 EACH PO (09:40)
--- NOTE | 2023-07-25 10:13 | P.DS_ITS ---
DS: Providers Provider Date Seen: 07/25/23 Date of admission: 07/24/23 10:20 Primary care physician: Diane Alejandra MD Admitting Clinician: Valeria Alfredo MD Consults: 07/24/23 11:34 Consult to Occupational Therapy [CONS] Routine Comment: Reason(s) for OT Consult:: Difficulty Managing ADLs Any Restrictions?:: Unknown Consult to Physical Therapy [CONS] Routine Comment: Reason(s) for PT Consult:: Evaluate and Treat Any Restrictions?:: Unknown 07/24/23 11:43 Consult to Occupational Therapy [CONS] Routine Comment: Reason(s) for OT Consult:: Evaluate and Treat Any Restrictions?:: No Restrictions Consult to Physical Therapy [CONS] Routine Comment: Reason(s) for PT Consult:: Evaluate and Treat Any Restrictions?:: No Restrictions Consult to Research Program Coordinator [CONS] Routine Comment: Reason for Consult:: Social Service Consult Attending Physician on discharge: Valeria Alfredo MD Date of Discharge: 07/25/23 DS: Diagnosis Discharge Diagnosis (1) UTI (urinary tract infection): Status: Acute Problem details: ceftriaxone x 1 dose 07/25/23 discharged with keflex for five days (2) Acute exacerbation of chronic low back pain: Status: Acute Problem details: -pain management (discharging on lidoderm patch, scheduled extended release tylenol and limited norco 5/325 -Lumbar CT reviewed. No acute findings. -could consider MR, xrays of pelvis and left hip but no trauma -avoid NSAIDS due to GFR (3) Chronic kidney disease, stage 4 (severe): Status: Acute Problem details: Stage 4 on 05/11/21 Nephro note. Likely due to NSAID use. creat ranges 1.4-1.9 (4) Physical deconditioning: Status: Acute Problem details: Has dyspnea on exertion, TTE satisfactory 01/30 (5) Lymphedema: Status: Acute Problem details: Multifactorial. (On Lasix in past), previous [place] [facility] clinic - now at [place] OT -does wraps DS: Summary Hospital Course Hospital Course: HOSPITALIST DISCHARGE SUMMARY ATTENDING PHYSICIAN: Valeria Alfredo MD FINAL DIAGNOSIS: Acute on chronic back pain Pain crisis UTI Chronic kidney disease HOSPITAL FOLLOWUP ISSUES: 1. Back pain: Likely a muscle spasm related to degenerative disc disease. Follow-up with PCP and continue outpatient PT 2. Chronic kidney disease: Mild hyperkalemia, mild bump in her creatinine at discharge. She can follow-up as an outpatient next week. federal judicial law clerk to book a lab appointment for 07/28/2023, BMP to Dr. Alejandra 3. UTI: Potentially asymptomatic bacteriuria. Culture pending at discharge. 1 g Rocephin given prior to discharge. Discharged on 5 days of Keflex. REFERRALS WHILE ADMITTED: PT, OT, social work REFERRALS AFTER DISCHARGE: [facility] BRIEF HOSPITAL COURSE: Patient is an 87-year-old with limited mobility at a baseline. She was admitted for an acute pain crisis. No fall or known injury. No confusion. She felt pain in her low back that radiated to her left hip. Lumbar CT was unrevealing. She was treated with scheduled Tylenol, Lidoderm patch, 1 dose of morphine. She is being discharged on limited oral hydrocodone, scheduled Tylenol and Lidoderm patches. She should continue her outpatient physical therapy. The bigger picture here is being able to continue to manage at home, alone even with her assistive devices which includes a motorized recliner and walker. I have asked our social work team to help [facility] to [facility] and [facility] the [facility]. SUBSTANTIVE NOTATIONS ON IMAGING, LAB, MICROBIOLOGY/PATHOLOGY STUDIES: Lumbar CT, no acute findings DISCHARGE MEDICATIONS: See Reconciled list - SIGNIFICANT CHANGES: 2.5-5/162.5-325 NORCO (Only #20 given) Lidoderm patch REVIEW OF SYSTEMS No new chest pain or dyspnea Pain controlled No voiding difficulties Tolerating diet challenge PHYSICAL EXAM: CONSTITUTIONAL: Talkative, insightful. I observed her working with PT and using her walker, in the hollins, etc. VITAL SIGNS: see record. HEENT: Normocephalic, atraumatic. PERRL, EOMI, conjunctivae pink, no scleral icterus. Ears and nose externally normal. Pharynx normal. NECK: No JVD. No carotid bruit, no thyromegaly, no adenopathy. CHEST: Clear to auscultation bilaterally. HEART: S1 and S2 normal. Edema 2+ ABDOMEN: Soft, nontender. Normal bowel sounds. MUSCULOSKELETAL: No gross joint deformity or swelling. NEURO: Cranial nerves intact. Grossly intact. No asymmetric findings. SKIN: No rashes, petechiae, concerning changes PSYCHIATRIC: Mood euthymic. DISPOSITION: Home Time spent on discharge 37 minutes. Status at Discharge Functional status at discharge: uses cane/walker Overall status at discharge: patient is progressing back to baseline Time Spent with Patient Time attestation: Total time spent providing and/or coordinating discharge services: Time spent: Greater than 30 minutes Exam Const: Vital Signs, click to edit/add: Vital Signs - 24 hr 07/24/23 10:35 07/24/23 10:35 07/24/23 10:35 Temperature 97.8 F 97.8 F Pulse Rate Pulse Rate [Bilate ral Radial] 60 60 Respiratory Rate 16 16 Blood Pressure [Le ft Arm] 142/46 H 142/46 H Blood Pressure [Le ft Forearm] Pulse Oximetry 98 98 98 [facility] Room [facility] Room Air 07/24/23 11:43 07/24/23 11:43 07/24/23 15:11 Temperature Pulse Rate 55 L 56 L Pulse Rate [Bilate ral Radial] Respiratory Rate Blood Pressure [Le ft Arm] Blood Pressure [Le ft Forearm] Pulse Oximetry 97 [facility] 07/24/23 15:20 07/24/23 15:20 07/24/23 15:20 Temperature 97.8 F Pulse Rate Pulse Rate [Bilate ral Radial] 61 61 Respiratory Rate 12 12 Blood Pressure [Le ft Arm] 138/39 L Blood Pressure [Le ft Forearm] Pulse Oximetry 96 96 [facility] 07/24/23 19:14 07/24/23 20:59 07/25/23 00:36 Temperature 97.8 F 97.8 F 97.8 F Pulse Rate Pulse Rate [Bilate ral Radial] 63 67 Respiratory Rate 16 18 Blood Pressure [Le ft Arm] 125/86 138/51 L Blood Pressure [Le ft Forearm] Pulse Oximetry 96 94 [facility] Room Air 07/25/23 01:26 07/25/23 01:26 07/25/23 04:19 Temperature 97.6 F Pulse Rate 58 L Pulse Rate [Bilate ral Radial] 64 Respiratory Rate 18 Blood Pressure [Le ft Arm] 139/52 L Blood Pressure [Le ft Forearm] Pulse Oximetry 94 97 [facility] 07/25/23 07:41 07/25/23 07:41 07/25/23 07:41 Temperature 97.5 F L Pulse Rate Pulse Rate [Bilate ral Radial] 60 60 Respiratory Rate 60 H 60 H Blood Pressure [Le ft Arm] Blood Pressure [Le ft Forearm] 129/41 L Pulse Oximetry 95 95 Oxygen Delivery Me thod Room Air DS: Data Data Completed and Pending Labs on day of discharge: Labs from last 24 hours 07/25/23 07/24/23 08:30 12:14 WBC 6.12 6.70 RBC 4.07 4.02 Hgb 11.7 L 11.6 L Hct 38.7 37.9 MCV 95 94 MCH 29 29 MCHC 30 L 31 L RDW Coeff of [place] 14.2 14.0 Plt Count 194 205 Neut % (Auto) 68.7 75.9 H Lymph % (Auto) 22.5 16.7 L [place] % (Auto) 6.4 5.5 Eos % (Auto) 1.6 1.2 Baso % (Auto) 0.3 0.3 Neut # (Auto) 4.20 5.10 Lymph # (Auto) 1.38 1.10 [place] # (Auto) 0.40 0.40 Eos # (Auto) 0.10 0.08 Baso # (Auto) 0.02 0.02 Abs Immat Gran (auto) 0.03 0.03 Imm/Tot Granulo (auto) 0.5 0.4 VBG pH 7.317 L VBG pCO2 58 H VBG pO2 24.0 L VBG HCO3 29 H Sodium 140 140 Potassium 5.4 H 5.0 Chloride 105 103 Carbon Dioxide 28 32 Anion Gap 7 5 L BUN 60 H 50 H Creatinine 2.0 H 1.7 H Estimated Creat Clear 18.51 21.77 Estimated GFR 24 29 Glucose 105 105 Lactate 0.8 Uric Acid 7.8 Calcium 9.9 9.8 Total Bilirubin 0.4 AST 27 ALT 22 Alkaline Phosphatase 58 C-Reactive Protein 0.7 0.6 Total Protein 6.8 Albumin 4.1 Preliminary micro results at discharge 07/24/23 Unknown Urine Culture - Preliminary Urine,Clean Catch Gram negative justina Discharge Plan Discharge Disposition: Home w/ Parent or Adult Date of Admission: 07/24/23 10:20 Attending Provider on Discharge: Valeria Alfredo Primary Care Provider: Diane Alejandra Condition: Stable Anticipated Discharge Date/Time: 09/08/23 10:04 Discharge Medications: New hydrocodone-acetaminophen 5-325 mg Tablet 0.5 - 1 tab PO Q6H PRNQty: 20 0RF Rx Instructions: Take no more than 2-3 tabs a day lidocaine [Lidoderm] 5 % Adhesive Patch,Medicated 1 patch transdermal Q24H Qty: 30 0RF cephalexin 500 mg capsule 500 mg PO BID Qty: 10 0RF Continued acetaminophen 650 mg tablet extended release 1,300 mg PO Q8H esomeprazole magnesium 20 mg capsule,delayed release(DR/EC) 20 mg PO DAILY PRN zinc sulfate 50 mg zinc (220 mg) capsule 50 mg PO DAILY bupropion HCl 300 mg tablet extended release 24 hr 300 mg PO QAM Qty: 90 3RF levothyroxine 25 mcg tablet 25 mcg PO QDAY Qty: 90 3RF simvastatin 20 mg tablet 20 mg PO Q48H Qty: 45 3RF allopurinol 100 mg tablet 50 mg PO DAILY Farxiga 10 mg tablet 10 mg PO QDAY clobetasol 0.05 % ointment 1 applic topical DAILY PRN lisinopril 20 mg tablet 20 mg PO DAILY torsemide 10 mg tablet 10 mg PO DAILY multivitamin [Daily Multi-Vitamin] Tablet 1 tab PO DAILY apixaban 5 mg tablet 5 mg PO BID Qty: 180 2RF Discharge Orders: Discharge Order (Routine); Ordered 07/25/23 Ordered By: Valeria Alfredo Additional Instructions: 1. Please reach out to either or both the Senior Linkage line for [facility] and the social work contact for assistance filling out Medical Assistance paperwork (this allows you to qualify for assisted living/usp centers) 2. Keep moving as much as possible. Take the Tylenol scheduled every 8 hours. Use the Lidoderm patch on the most painful area of your back. Use the hydrocodone (1/2 tab) SPARINGLY as it can make you dizzy and/or nauseated. Avoid NSAIDS as you have chronic kidney impairment. 4. You likely have a UTI - 5 days of antibiotics were sent to your pharmacy 5. I would like you to have a lab appt Friday or Friday next week and then see Dr. Alejandra in follow-up in the next 1-2 weeks. Activity Level: Activity as Tolerated Activity Detail: continue going to physical therapy. Move as much as you can; sitting still will increase your pain and stiffness. Discharge Diet: Regular Follow Up Appointments: Diane Alejandra MD [Primary Care Provider] - 08/05/23 10:15 am ([facility] lab appt 07/28 @ [address] [facility] ) Forms: [employer] Info Instructions
[2023-07-25] MEDS: cefTRIAXone 1 GM in 0.9 % SODIUM CHLORIDE Mini-bag 100 ML IVPB (10:48)
[2023-07-25] MEDS: 0.9 % SODIUM CHLORIDE 250 ml IV (10:53)
[2023-07-25 11:48] VITALS: PULSE 55
--- NOTE | 2023-07-25 12:24 | PC.SOCIAL ---
Met with pt and pt's in pt's room to discuss discharge plans. Pt has support of her and some assistance from her adult son, whom both live with pt. Pt is needing more support and assistance with cleaning tasks around her home. Provided pt with resource list for home health clinical liaison care and informed pt that she would have to privately pay for the services. Pt may not have the ability to pay depending on costs. Offered pt that this worker could complete a senior linkage line referral so they could determine what services would be available to pt in her home. Pt accepted and gave this worker permission to complete the referral. Pt and pt's were eager to get home today and have some assistance from family. Informed pt that she could reach out to social work at any time if needed. Informed pt that the Senior Linkage Line would call her home phone to assess for services that could be provided. Senior Linkage line referral completed. Confirmation #[id number]. Social work will follow up as needed.
--- NOTE | 2023-07-25 12:35 | PC.NURSE ---
End of Shift: Patient pleasant and cooperative. Patient vitally stable, lungs clear, BS WNL, IV removed, catheter intact. Patient rated pain at most 4/10, tylenol given once. Patient 1 assist, walker, gb. Patient signed belongings sheet and discharge form, and had no further questions regarding discharge. Patient left floor at 1232 by wheelchair to home.
--- NOTE | 2023-07-27 16:37 | REH.OT ---
OT: Order received and attempted eval x3 on 07/25/23. Pt initially with other discipline, then eating and very talkative, but would not get up from chair wanting to finish meal and requested return later. When OT returned pt up in w/c with nsg and spouse ready to discharge. OT addressed with patient home safety concerns and nsg and pt report pt and spouse managing velcro wraps on LEs, was ambulating with nsg and completing transfers using FWW mod I reporting back pain better controlled. Noted concerns with pt's spouse with cognitive deficits and unclear of level of support he can safely provide. Recommended consider other transportation options as patient reporting he provides transportation for her. Patient is discharging home with spouse and plans to resume OP OT for lymphedema. Unable to complete formal eval with pt discharging. Late entry from 07/25/23 due to documentation error.
--- NOTE | 2023-07-28 11:08 | PC.NURSE ---
PATIENT CALLED AND STATED SHE WAS DISCHARGED FROM MED/SURG ON 07/25/23. AT THAT TIME, PATIENT HAD PRESCRIPTIONS FOR CEPHALEXIN AND NORCO SENT TO [facility] ORDERED BY DR. 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 PATIENT HAD TO CALL 911 LAST NIGHT AND WAS BROUGHT TO [facility] ED BY EMS. PATIENT DC'D HOME AND THEN CALLED STATING SHE IS UNABLE TO FIND THE BOTTLES OF CEPHALEXIN AND NORCO. DISCUSSED SITUATION WITH DR. ISLAS AND OKAYED TO CALL IN 3 DOSES OF CEPHALEXIN TO [facility] BUT UPDATED PATIENT SHE MUST CALL HER PRIMARY PHYSICIAN REGARDING ADDITIONAL NORCO. PATIENT STATED SHE WAS OKAY WITH THIS SITUATION.
== END 2023-07-25 12:32 | disposition home or self-care (01) ==
LOC: ED 09:23 → MEDSURG 10:20
PROVIDERS: Admitting Provider Family Medicine; Emergency Provider Family Medicine; PCP Internal Medicine; Visit Provider Family Medicine
DX: M54.50 Low back pain, unspecified (principal); N39.0 Urinary tract infection, site not specified; B96.4 Proteus (mirabilis) (morganii) as the cause of diseases classified elsewhere; G89.29 Other chronic pain; I89.0 Lymphedema, not elsewhere classified; R60.0 Localized edema; N39.46 Mixed incontinence; R53.81 Other malaise; M25.552 Pain in left hip; I45.89 Other specified conduction disorders; I12.9 Hypertensive chronic kidney disease with stage 1 through stage 4 chronic kidney disease, or unspecified chronic kidney disease; N18.4 Chronic kidney disease, stage 4 (severe); R06.09 Other forms of dyspnea; R53.83 Other fatigue; M51.36 Other intervertebral disc degeneration, lumbar region; G47.33 Obstructive sleep apnea (adult) (pediatric); K21.9 Gastro-esophageal reflux disease without esophagitis; E78.5 Hyperlipidemia, unspecified; E03.9 Hypothyroidism, unspecified; M81.0 Age-related osteoporosis without current pathological fracture; F32.A Depression, unspecified; E87.5 Hyperkalemia; E66.01 Morbid (severe) obesity due to excess calories; Z68.42 Body mass index [BMI] 45.0-49.9, adult; Z99.89 Dependence on other enabling machines and devices; Z86.718 Personal history of other venous thrombosis and embolism; Z87.442 Personal history of urinary calculi; Z98.49 Cataract extraction status, unspecified eye; Z96.659 Presence of unspecified artificial knee joint; Z96.649 Presence of unspecified artificial hip joint; Z90.89 Acquired absence of other organs; Z90.49 Acquired absence of other specified parts of digestive tract; Z98.890 Other specified postprocedural states
CPT/HCPCS: 36415; 72131; 80048; 80053; 81001; 82803; 83605; 84550; 85025; 86140; 87086; 87186; 96365; 96375; 97116; 97162; 97530; 99284; 99285; G0378; A9270; J0696; J2270; J7050

== ENCOUNTER 2023-07-27 22:45 | Outpatient (CLI) | payer MEDICARE, BC, SELFPAY | END 2023-07-27 22:46 | disposition home or self-care (01) | LOC: AMB 08-01 11:19 | PROVIDERS: PCP Internal Medicine; Visit Provider Emergency Medicine | DX: M54.9 Dorsalgia, unspecified (principal); M79.672 Pain in left foot | CPT/HCPCS: A0425; A0427 ==

== ENCOUNTER 2023-07-27 23:30 | Emergency (ER) | payer MEDICARE, BC, SELFPAY ==
[2023-07-27 23:54] VITALS: BP 130/81; PULSE 69; RESP 18; TEMP 36.7; O2SAT 99; BMI 42.8
--- NOTE | 2023-07-28 00:23 | ED.GENADULT ---
HPI - General Adult General Chief complaint: Extremity Pain/Injury, Lower Stated complaint: back pain, leg pain Time Seen by Provider: 07/28/23 00:22 History of Present Illness HPI narrative: CC: Lower Back Pain, Left Foot Pain pt. was seen a couple of days ago for back pain. pt. has herniated L 4-5 . c/o left foot pain. concerned about a blood clot. doppler to left foot shows positive pulse . 87-year-old woman presenting to the emergency department with complaint of left dorsal distal foot pain spontaneous onset about 5 hours prior to arrival emergency department. She was at rest. Prior to that she had had increase in her radicular lumbar pain as well. Does have a history of peripheral lymphedema. Also a history of deep venous thrombus she says in the left leg. She is worried she might have a new clot. No new chest pain or shortness of breath. Was hospitalized here for low back pain thought to be related to muscle spasm a few days ago. Related Data Home Medications Medication Instructions Recorded Confirmed acetaminophen 650 mg 1,300 mg PO Q8H 10/07/22 07/24/23 tablet,extended release allopurinol 100 mg tablet 50 mg PO DAILY 10/07/22 07/24/23 dapagliflozin propanediol 10 mg 10 mg PO QDAY 10/07/22 07/24/23 tablet (Farxiga) esomeprazole magnesium 20 mg 20 mg PO DAILY PRN 10/07/22 07/24/23 capsule,delayed release zinc sulfate 50 mg zinc (220 mg) 50 mg PO DAILY 10/07/22 07/24/23 capsule clobetasol 0.05 % topical ointment 1 applic topical DAILY PRN 07/24/23 07/24/23 lisinopril 20 mg tablet 20 mg PO DAILY 07/24/23 07/24/23 multivitamin (Daily Multi-Vitamin 1 tab PO DAILY 07/24/23 07/24/23 tablet) torsemide 10 mg tablet 10 mg PO DAILY 07/24/23 07/24/23 Previous Rx's Medication Instructions Recorded apixaban 5 mg tablet 5 mg PO BID #180 tabs 09/19/22 bupropion HCl 300 mg 24 hr tablet, 300 mg PO QAM #90 tabs 10/07/22 extended release levothyroxine 25 mcg tablet 25 mcg PO QDAY #90 tabs 10/07/22 simvastatin 20 mg tablet 20 mg PO Q48H #45 tabs 10/07/22 cephalexin 500 mg capsule 500 mg PO BID #10 caps 07/25/23 hydrocodone 5 mg-acetaminophen 325 0.5 - 1 tab PO Q6H PRN #20 tabs 07/25/23 mg tablet lidocaine 5 % topical patch 1 patch transdermal Q24H #30 ea 07/25/23 (Lidoderm) prednisone 10 mg tablet 10 mg PO DIRECTED #20 tabs 07/28/23 Allergies Allergy/AdvReac Type Severity Reaction Status Date / Time clavulanic acid Allergy Verified 07/27/23 23:58 oxycodone Allergy Verified 07/27/23 23:58 tazobactam Allergy Verified 07/27/23 23:58 Tetracyclines Allergy Verified 07/27/23 23:58 Review of Systems Status of ROS: Reports: 6 or more systems reviewed and unremarkable except as noted in History and below [facility] Medical History (Updated 07/28/23 @ 02:21 by Alexsander Guerrero MD) Lymphedema ?I89.0 - Lymphedema, not elsewhere classified (ICD-10) Restless legs syndrome (08/10/10) ?G25.81 - Restless legs syndrome (ICD-10) Peripheral neuropathy (2010) ?G62.9 - Polyneuropathy, unspecified (ICD-10) Osteoporosis ?M81.0 - Age-related osteoporosis without current pathological fracture (ICD-10) Hyperlipidemia (08/10/10) ?E78.5 - Hyperlipidemia, unspecified (ICD-10) Gout ?M10.9 - Gout, unspecified (ICD-10) Gastroesophageal reflux (08/10/10) ?K21.9 - Gastro-esophageal reflux disease without esophagitis (ICD-10) History of renal stone ?Z87.442 - Personal history of urinary calculi (ICD-10) Surgical History (Updated 07/25/23 @ 09:16 by Valeria Alfredo MD) 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) ?G57.31 - Lesion of lateral popliteal nerve, right lower limb (ICD-10) History of cataract surgery ?Z98.49 - Cataract extraction status, unspecified eye (ICD-10) History of total knee replacement (2005) ?Z96.659 - Presence of unspecified artificial knee joint (ICD-10) 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 nonsmoker. uses a lift recliner and walker in her home. What is your current living situation?: I presently have a place to live Problems where you live: no known problems Problems where you live details: Two steps from garage into house In the past 12 months, utilities in danger of being shut off: no In the past 12 mos, have been you worried that your food would run out before you had money to buy more?: never true In the past 12 mos, the food you bought just didn't last and you didn't have money to buy more?: never true Highest level of school completed/degree received: some college, no degree Smoking Status: Never smoker How often do you have a drink containing alcohol: 2-3 times a week Alcohol type: wine How often do you have six or more drinks on one occasion: Never AUDIT-C Alcohol total score: 3 Non-prescribed substance use: denies use Caffeine: Yes (Half caffinated coffee) How often does anyone, including family, friends and others, physically hurt you: never How often does anyone, including family, friends and others, insult or talk down to you: never How often does anyone, including family, friends and others, threaten you with harm: never How often does anyone, including family, friends and others, scream or curse at you: rarely Little interest or pleasure in doing things: not at all Feeling down, depressed, or hopeless: not at all service: No Exam Narrative: Exam Narrative: She is sleeping when I enter the room. Awakes easily. Breathing easily. Examination of her feet shows right greater than left lymphedema. There is 1+ pitting edema over the dorsum of her left foot. Soft. Pulses have already been documented. 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 She is tender to palpation over the distal dorsal foot and a little bit on the opposing plantar surface. No pain to palpation about the ankle. Intermittently tender to palpation the calf that appreciate edema here. Really seems to be isolated to the foot. Incidentally is not wearing recommended lower extremity compression. Const: Vital Signs, click to edit/add: Vital Signs - 24 hr 07/27/23 23:54 Temperature 98.1 F Pulse Rate [Right Pulse Oximeter] 69 Respiratory Rate 18 Blood Pressure [Ri ght Upper Arm] 130/81 Pulse Oximetry 99 Oxygen Delivery Me thod Room Air Documenting provider has reviewed patient's vital signs: yes Course Vital Signs Vital signs: Initial Vital Signs Temperature 98.1 F 07/27/23 23:54 Temperature Source Temporal Artery Scan 07/27/23 23:54 Pulse Rate 69 07/27/23 23:54 Respiratory Rate 18 07/27/23 23:54 Blood Pressure 130/81 07/27/23 23:54 Blood Pressure Mean 97 07/27/23 23:54 Blood Pressure Position Sitting 07/27/23 23:54 Pulse Oximetry 99 07/27/23 23:54 Oxygen Delivery Method Room Air 07/27/23 23:54 Vital Signs Temperature 98.1 F 07/27/23 23:54 Pulse Rate 69 07/27/23 23:54 Respiratory Rate 18 07/27/23 23:54 Blood Pressure 130/81 07/27/23 23:54 Pulse Oximetry 99 07/27/23 23:54 Oxygen Delivery Method Room Air 07/27/23 23:54 Temperature 98.1 F 07/27/23 23:54 Pulse Rate 69 07/27/23 23:54 Respiratory Rate 18 07/27/23 23:54 Blood Pressure 130/81 07/27/23 23:54 Pulse Oximetry 99 07/27/23 23:54 Oxygen Delivery Method Room Air 07/27/23 23:54 Medical Decision Making MDM Narrative Medical decision making narrative: Ask her about anticoagulation as I seem to recall her taking a NOAC. She seems unfamiliar however review of records does show that she is discharge with apixaban. I think is reasonable to look for bony abnormality as is already anticoagulated. I do not see any other evidence of a problem beyond lymphedema which certainly could be creating her pain. Perhaps a flare of gout as well. Was not tender over this tophaceous toe. X-rays two view of the left foot by my read shows some irregular in nature to the 3rd toe phalanges. No acute bony abnormality. Radiology over-read noting same of the 3rd toe ?erosion? question of osteomyelitis however this does not correlate with external symptoms/findings. I did call to discuss with Radiology in indeed confirm that this could be secondary to gout as well. I think this is consistent with the tophaceous material at the distal 3rd toe. D-dimer negative. In addition to being on likely on physical exam, lab would suggest no significant clot. Re-examination shows little more erythema and warmth over the distal foot. I do suspect most likely is experiencing a gouty flare. Further questioning reveals she has over the last 3 months she says been backed down on her allopurinol with concern of kidney disease. Now taking half of what she used to. Will initiate steroid course here in the emergency department. See patient discharge plan Lab Data Labs: Lab Results 07/28/23 Range/Units 00:50 D-Dimer Quant (PE/DVT) 0.41 (0.00-0.50) ug/ml Discharge Plan Discharge Clinical Impression: Foot pain, Back pain, Gout flare Patient Disposition: Home w/ Parent or Adult Condition: Stable Additional Instructions: Take the prednisone starting tomorrow at 40 mg daily for 2 days then 30 mg daily for 2 days in 20 mg daily for 2 days then 10 mg daily for 2 days Will need to follow-up with your providers to discuss treatment of your gout long-term given your kidney function. Prednisone sent to pharmacy as we do not have any in the [facility]. Prescriptions: New prednisone 10 mg tablet 10 mg PO DIRECTED Qty: 20 0RF Rx Instructions: Taper 40 mg daily for 2 days, 30 mg daily for 2 days, 20 mg daily for 2 days, 10 mg daily for 2 days No Action acetaminophen 650 mg tablet extended release 1,300 mg PO Q8H esomeprazole magnesium 20 mg capsule,delayed release(DR/EC) 20 mg PO DAILY PRN zinc sulfate 50 mg zinc (220 mg) capsule 50 mg PO DAILY bupropion HCl 300 mg tablet extended release 24 hr 300 mg PO QAM Qty: 90 3RF levothyroxine 25 mcg tablet 25 mcg PO QDAY Qty: 90 3RF simvastatin 20 mg tablet 20 mg PO Q48H Qty: 45 3RF allopurinol 100 mg tablet 50 mg PO DAILY Farxiga 10 mg tablet 10 mg PO QDAY clobetasol 0.05 % ointment 1 applic topical DAILY PRN lisinopril 20 mg tablet 20 mg PO DAILY torsemide 10 mg tablet 10 mg PO DAILY multivitamin [Daily Multi-Vitamin] Tablet 1 tab PO DAILY hydrocodone-acetaminophen 5-325 mg Tablet 0.5 - 1 tab PO Q6H PRNQty: 20 0RF Rx Instructions: Take no more than 2-3 tabs a day lidocaine [Lidoderm] 5 % Adhesive Patch,Medicated 1 patch transdermal Q24H Qty: 30 0RF cephalexin 500 mg capsule 500 mg PO BID Qty: 10 0RF apixaban 5 mg tablet 5 mg PO BID Qty: 180 2RF Follow Up/Referrals: Diane Alejandra MD [Primary Care Provider] - Stand Alone Forms: [facility] Info Instructions
--- NOTE | 2023-07-28 00:31 | CRLHL7_ITS ---
For Patients: As a result of the Century Cures Act, medical imaging exams and procedure reports are released immediately into your electronic medical record. You may view this report before your referring provider. If you have questions, please contact your health care provider. Indication: Dorsal distal foot pain Technique: Two views left foot Comparison: None Findings: Bones: Alignment is normal. No fractures. There is erosion of most of the middle and distal phalanges of the 3rd toe. Small posterior and inferior calcaneal enthesophytes. Joint spaces: Unremarkable. Soft tissues: Soft tissue swelling on the dorsum of the foot.. Impression: Erosion of most of the middle and distal phalanges of the 3rd toe. Findings may be due to osteomyelitis. Correlate with history and symptoms. Dictated by Maria Luisa aMrtin MD @ 07/28/2023 1:48:11 AM (Electronically Signed)
--- OUTSIDE RECORDS SUMMARY | 2023-07-28 00:40 | XMS_ITS | Continuity of Care Document ---
Author Name Unknown Organization [facility] Address [address] [address] [place] [address] Phone Care Team Providers Care Fruit Or Nut Farmworker Name Role Phone Kev HERNANDEZ, Baird Unavailable [...] Diagnoses Date Provider Providers Copied on Encounter [facility], [address] [address], [place], [place], [id number], tel:[phone] [facility] No Information Kev Hanahim. [address], [id number], . tel:[phone] Israel Collazo MD. tel:[phone] [facility], [address] [address], [place], [place], [id number], tel:[phone] [facility] Diarrhea, unspecified Kev Hanahim. [address] [place] [address], [id number], [place]. tel:[phone] Israel Collazo MD. tel:[phone] erring Provider: Referral Self. Offic/outpt E&m [facility], [address] [address], [place], [place], [id number], tel:[phone] [facility] GI Symptoms or Concerns (chief complaint) Altered bowel habitsDiarrhea , unspecified typeDietary counseling and surveillance Kev Hanahim. [address] [place] [address], [id number], . tel:[phone] Referring Provider: Referral Self. Family History Family Member Type Diagnosis Age At Onset Son Problem (finding) Alive and well Mother Problem (finding) stroke Son Problem (finding) alcoholism Father Problem (finding) malignant neoplasm of l devora Sister Problem (finding) vaginal cancer Payers Payer name Insurance type Covered democrat ID Authorvladislava tibirgit(s) Medicare NGS MB [id number] [facility] [id number] Social History Type Description Quantity Date Captured [...] or vomiting. Patient was recently seen at [facility] where she underwent the following tests: Colonoscopy: Diverticulosis in the descending colon, and in the transverse colon. Patent [id number] ileocolonic anastomosis, characterized by healthy appearing mucosa. [...]
[2023-07-28 01:33] LABS: D Dimer Quantitative* 0.41 ug/ml (0.00-0.50)
[2023-07-28 02:00] VITALS: O2SAT 95
[2023-07-28] MEDS: ONDANSETRON ODT 4 MG TAB PO (02:48)
[2023-07-28] MEDS: HYDROCODONE/ACETAMIN 7.5-325 TABLET 1 TAB PO (02:48)
[2023-07-28] MEDS: predniSONE 20 MG TABLET 60 MG PO (02:48)
[2023-07-28 07:35] VITALS: BP 125/74; PULSE 69; RESP 18; TEMP 36.7; O2SAT 95
[2023-07-28 07:36] VITALS: BP 125/74; PULSE 69; RESP 18; TEMP 36.7
== END 2023-07-28 07:37 | disposition home or self-care (01) ==
PROVIDERS: Emergency Provider Family Medicine; PCP Internal Medicine
DX: M54.9 Dorsalgia, unspecified (principal); M10.9 Gout, unspecified
CPT/HCPCS: 36415; 73620; 85379; 94761; 99284; A9270; J7512

== ENCOUNTER 2023-07-31 11:16 | Outpatient (CLI) | payer MEDICARE, BC, SELFPAY | END 2023-07-31 11:17 | disposition home or self-care (01) | LOC: NFLDREF 11:18 | PROVIDERS: PCP Internal Medicine; Visit Provider Internal Medicine | DX: M10.9 Gout, unspecified (principal); M81.0 Age-related osteoporosis without current pathological fracture | CPT/HCPCS: 80048; 84550 ==

== ENCOUNTER 2023-09-25 08:13 | Outpatient (CLI) | payer MEDICARE, BC, SELFPAY | END 2023-09-25 08:14 | disposition home or self-care (01) | LOC: NFLDREF 09-26 11:43 | PROVIDERS: PCP Internal Medicine; Referring Provider Internal Medicine; Visit Provider Internal Medicine | DX: E78.5 Hyperlipidemia, unspecified (principal); E03.9 Hypothyroidism, unspecified | CPT/HCPCS: 80061; 80069; 81001; 82043; 82310; 82570; 83970; 84443; 85027; 87086; 87186 ==

== ENCOUNTER 2023-09-25 11:38 | Outpatient (REF) | payer MEDICARE, BC, SELFPAY ==
[2023-09-25 11:54] LABS: Appearance Urine Clear (Clear); Bilirubin Urine Negative (Negative); Blood Urine Negative (Negative); Color Urine Yellow (Yellow); Glucose Urine Negative (Negative); Ketones Urine Negative (Negative); Leukocyte Esterase Urine 1+ (Negative); Nitrite Urine Negative (Negative); Protein Urine Negative (Negative); Specific Gravity Urine 1.015 (1.000-1.030); Urobilinogen Urine 0.2 (0.2-1.0); pH Urine 5.5 (5.0-8.5)
[2023-09-25 11:57] LABS: Hematocrit 39.5 % (33.0-51.0); Hemoglobin* 12.4 gm/dL (12.0-16.0); Mean Corpuscular HGB Conc 31 gm/dL (32-36); Mean Corpuscular Hemoglobin 29 pg (26-34); Mean Corpuscular Volume 93 fL (80-100); Platelet Count* 195 K/uL (140-440); Red Blood Count 4.23 m/uL (4.00-5.20); White Blood Count* 5.87 K/uL (4.50-11.00)
[2023-09-25 12:06] LABS: Albumin* 4.4 g/dL (3.3-5.0); Chloride* 104 mmol/L (96-114); Potassium* 4.8 mmol/L (3.6-5.1); Sodium* 141 mmol/L (135-149)
[2023-09-25 12:09] LABS: Anion Gap 11 mEq/L (7-15); Blood Urea Nitrogen* 59 mg/dL (7-30); Carbon Dioxide* 26 mmol/L (20-32); Creatinine* 1.8 mg/dL (0.5-1.5); Estimated Glomerular Filt Rate 27 ml/min
[2023-09-25 12:10] LABS: Calcium* 9.7 mg/dL (8.4-10.6); Glucose* 101 mg/dL (60-115)
[2023-09-25 12:25] LABS: Bacteria Urine Few; Creatinine Urine 58.7 mg/dL; RBC Urine 0-2 (0-2)
[2023-09-25 12:30] LABS: Microalbumin Creatinine Ratio 10 mg/g (0-30); Microalbumin Urine 1 mg/dL
[2023-09-25 13:05] LABS: Slide Review Reflex No
== END 2023-09-25 11:39 | disposition home or self-care (01) ==
LOC: NPINS 11:38
PROVIDERS: PCP Internal Medicine
DX: I12.9 Hypertensive chronic kidney disease with stage 1 through stage 4 chronic kidney disease, or unspecified chronic kidney disease (principal); N18.32 Chronic kidney disease, stage 3b
CPT/HCPCS: 80061; 80069; 81001; 82043; 82310; 82570; 83970; 84443; 85027; 87086; 87186

== ENCOUNTER 2024-01-13 12:34 | Outpatient (REF) | payer MEDICARE, BC, SELFPAY ==
[2024-01-13 13:32] LABS: Appearance Urine Clear (Clear); Bilirubin Urine Negative (Negative); Blood Urine Negative (Negative); Color Urine Yellow (Yellow); Glucose Urine Trace (Negative); Ketones Urine Negative (Negative); Leukocyte Esterase Urine 1+ (Negative); Nitrite Urine Negative (Negative); Protein Urine Negative (Negative); Specific Gravity Urine 1.015 (1.000-1.030); Urobilinogen Urine 0.2 (0.2-1.0); pH Urine 5.5 (5.0-8.5)
[2024-01-13 13:33] LABS: Basophils Absolute Auto 0.01 K/uL (0.00-0.30); Basophils Percent Auto 0.2 % (0.0-3.0); Eosinophils Absolute Auto 0.08 K/uL (0.00-0.50); Eosinophils Percent Auto 1.4 % (0.0-7.0); Hematocrit 40.4 % (33.0-51.0); Hemoglobin* 12.5 gm/dL (12.0-16.0); Immature Granulocytes Abs Auto 0.03 K/uL (0.00-0.30); Immature Granulocytes Pct Auto 0.5 %; Lymphocytes Percent Auto 23.4 % (20-44); Mean Corpuscular HGB Conc 31 gm/dL (32-36); Mean Corpuscular Hemoglobin 29 pg (26-34); Mean Corpuscular Volume 93 fL (80-100); Monocytes Percent Auto 6.1 % (0.0-11.0); Neutrophils Percent Auto 68.4 % (42.0-72.0); Platelet Count* 209 K/uL (140-440); RDW Coefficient of Variation % 13.4 % (11.5-15.5); Red Blood Count 4.36 m/uL (4.00-5.20); White Blood Count* 5.56 K/uL (4.50-11.00)
[2024-01-13 13:35] LABS: Albumin* 4.3 g/dL (3.3-5.0); Chloride* 106 mmol/L (96-114); Potassium* 4.5 mmol/L (3.6-5.1); Sodium* 142 mmol/L (135-149)
[2024-01-13 13:38] LABS: Anion Gap 8 mEq/L (7-15); Blood Urea Nitrogen* 43 mg/dL (7-30); Carbon Dioxide* 28 mmol/L (20-32); Creatinine* 1.6 mg/dL (0.5-1.5); Estimated Glomerular Filt Rate 31 ml/min; Glucose* 108 mg/dL (60-115)
[2024-01-13 13:39] LABS: Calcium* 9.9 mg/dL (8.4-10.6); Phosphorus* 3.8 mg/dL (2.5-4.5)
[2024-01-13 13:43] LABS: Slide Review Reflex No
[2024-01-13 13:51] LABS: PTH Intact* 150 pg/mL (15-65)
[2024-01-13 14:06] LABS: Bacteria Urine Few; RBC Urine 0-2 (0-2); Squamous Epithelial Cell Urine Moderate (None-Few)
[2024-01-13 15:01] LABS: Creatinine Urine 15.3 mg/dL
[2024-01-13 15:05] LABS: Microalbumin Creatinine Ratio 60 mg/g (0-30); Microalbumin Urine < 1 mg/dL
== END 2024-01-13 12:35 | disposition home or self-care (01) ==
LOC: NPINS 12:34
PROVIDERS: PCP Internal Medicine; Visit Provider Nurse Practitioner
DX: I12.9 Hypertensive chronic kidney disease with stage 1 through stage 4 chronic kidney disease, or unspecified chronic kidney disease (principal); N18.32 Chronic kidney disease, stage 3b
CPT/HCPCS: 80069; 81001; 82043; 82570; 83970; 85025; 87086; 87186

== ENCOUNTER 2024-01-21 12:00 | Outpatient (RCR) | payer MEDICARE, BC, SELFPAY ==
--- NOTE | 2023-07-15 13:16 | PT.OPEX ---
PT [place] Outpatient Eval PT [facility] Outpatient Eval Start: 07/14/23 09:06 Freq: Status: Active Protocol: Document 07/14/23 13:53 SHANTELL (Rec: 07/14/23 15:59 SHANTELL [id number]) E-signed By Tash Gonzales PT Physical Therapy Outpatient Evaluation Insurance Information Recert Due Date 10/11/23 Insurance Name Medicare B,Blue Cross/Blue Shield Insurance Information/Comments MEDICARE/BCBS Medical Diagnosis UNSTEADINESS ON FEET R26.81 Treating Diagnosis WEAKNESS R53.[address] BELKIS CARRASCO Subjective Subjective I ALMOST DIDN'T COME TODAY. I 'M REALLY HAVING A HARD TIME GETTING AROUND. LAST WEEK WAS REALLY HARD. 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 BELKIS CARRASCO REFERRED TO PHYSICAL THERAPY FOR GENERALIZED DECONDITIONING, UNSTEADINESS, AND WEAKNESS. SHE IS CONCURRENTLY BEING TREATED FOR BLE LYMPHEDEMA WITH A EXTENSIVE PAST MEDICAL HISTORY INCLUDING BUT NOT LIMITED TO DVT RLE 09/2022, HTN LYMPHEDEMA R>L, TKA 2005, BILATERAL HERON 2019, GERD, HYPOTHYROIDISM, HLD, DEPRESSION, OA, OSTEOPOROSIS, CKD4, RLS, PERIPHERAL NEUROPATHY, MIN R FOOT DROP, [place] W/CPAP, H/O GOUT, CHRONIC LPB. PATIENT LIVES WITH HER SPOUSE AND ADULT SON WITH WHAT SHE FEELS IS ASPERGER SYNDROME. SHE HAS 2 STEPS TO ENTER THROUGH HER GARAGE WITH ALL HER NEEDS BEING MET ON THE FIRST FLOOR AND >10 STEPS TO THE BASEMENT TO WHICH SHE HAS NOT BEEN IN >4YRS. SHE USES A FWW FOR VERY LIMITED COMMUNITY INTERACTION/AMB AND ROLLATOR WITHIN HER HOME. SHE DEMONSTRATES BLE WEAKNESS MEASURING 3/5 AND LIMITED ROM AT HER HIPS WITH C/O CHRONIC LBP. SHE HAS HAD MULTIPLE EPIDURALS IN THE PAST WITH MIN IMPROVEMENT. HER PATIENT CENTERED GOAL IS TO BE ABLE TO NOT ONLY BE ABLE TO LIFT HER LEGS TO AMB THE STEPS TO FROM HER GARAGE TO HER HOME RATHER THAN PULL UP ON THE RAILING BUT ALSO AMB DOWN THE STEPS TO HER BASEMENT. SHE IS APPROPRIATE FOR SKILLED PHYSICAL THERAPY FOR BLE/CORE STRENGTHENING, CARDIOVASCULAR ENDURANCE TRAINING, FUNCTIONAL BALANCE AND MOBILITY TRAINING WELL GT FOR COMMUNITY AMB. SHE HAS A SHEET OF EXERCISES THAT SHE IS CURRENTLY PERFORMING BUT NOT TO THE QUALITY/EFFICACY NEEDED TO PROMOTE STRENGTH AND MOBILITY. WE PERFORMED HER BLE EXERCISES WITH VC AND DEMONSTRATION ON QUALITY AND PATIENT VERBALIZED A NOTABLE DIFFERENCE BOTH IN HER FATIGUE AND ?WOW, I FEEL THE MUSCLES REALLY WORKING.? 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 PATIENT VERBALIZED UNDERSTANDING TO ALL SKILLED INSTRUCTIONS AND AGREEABLE TO POC AND FREQ. Primary Functional Limitations STDG >5MIN WALKING>3-5 MIN PERSONAL SUPPORT WORKER BENDING TRANSFERS BED MOBILITY Plan of Care Rehabilitation Potential Fair Coordination/Communication With Referral Source Treatment Plan/Direct Interventions Gait Training,Neuromuscular Re -ed,Therapeutic Activities, Therapeutic Exercises Patient Will Be Discharged From Therapy Completion of LTG(s) Evaluation Billing Untimed Code Treatment Minutes 30 PT Eval No Charge No Complexity High Certification Information Initial Certification Date 07/14/23 Ending Certification Date 10/11/23 Provider Signature Shows Agreement With POC & Medical Necessity Physician Signature & Date Requested Please Sign/Date Here Physician Comment/Change : Physician NPI Number #
== END 2024-01-21 16:05 | disposition home or self-care (01) ==
PROVIDERS: PCP Internal Medicine; Visit Provider Physical Medicine & Rehabilitation
DX: I89.0 Lymphedema, not elsewhere classified (principal); R60.0 Localized edema; M79.89 Other specified soft tissue disorders; E66.01 Morbid (severe) obesity due to excess calories; Z68.41 Body mass index [BMI] 40.0-44.9, adult; Z86.718 Personal history of other venous thrombosis and embolism; Z51.89 Encounter for other specified aftercare
CPT/HCPCS: 97110; 97140; 97163; 97166; 97535; X5282

== ENCOUNTER 2024-04-16 11:58 | Emergency (ER) | payer MEDICARE, BC, SELFPAY ==
[2024-04-16] VITALS (8 sets, daily range): BP systolic 118–130; BP diastolic 40–56; PULSE 66–74; RESP 18; TEMP 36.9; O2SAT 79–99; BMI 42.4
--- NOTE | 2024-04-16 12:12 | CRLHL7_ITS ---
For Patients: As a result of the Century Cures Act, medical imaging exams and procedure reports are released immediately into your electronic medical record. You may view this report before your referring provider. If you have questions, please contact your health care provider. INDICATION: Leg pain and swelling TECHNIQUE: Ultrasound venous duplex lower left extremity. Compression venous exam was performed using blackwood-scale, color Doppler, and spectral Doppler analysis. COMPARISON: None. FINDINGS: Sonographic imaging demonstrates the left common femoral, deep femoral, superficial femoral, popliteal, posterior tibial and greater saphenous and the contralateral right common femoral veins to be fully compressible with normal color Doppler blood flow. IMPRESSION: Normal left lower extremity venous ultrasound, no sign of deep venous thrombosis. Dictated by Sathya Hamilton MD @ 04/16/2024 1:20:37 PM (Electronically Signed)
--- NOTE | 2024-04-16 12:15 | ED.GENADULT ---
HPI - General Adult General Date Seen: 04/16/24 Chief complaint: Lower Extremity Swelling Stated complaint: L leg pain Time Seen by Provider: 04/16/24 12:03 Source: patient, RN notes reviewed and old records reviewed Mode of arrival: ambulatory Limitations: no limitations History of Present Illness HPI narrative: Patient is an 88-year-old woman who lives at home with her and her son who she says has stage IV cancer. She comes in noting left leg pain which has been ongoing for a while, at least few weeks. She says it has been getting worse in the past few nights she has not been able to sleep. 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 She does also have neuropathy as well as lymphedema. Her right leg is always more swollen than her left, which is the case now. She has not had significant redness on the leg. It just hurts everywhere, tender to touch. She is able to bear weight on it. She denies any specific injuries. She has not had fevers or chills. She says her hands and feet have felt more cold than usual. She has been taking Tylenol but says it does not help with the pain. She does have a history of DVT, anticoagulation was discontinued about 5 months ago and she is somewhat concerned about possible recurrent clot. She has not had chest pain or difficulty breathing. She also notes that her weight is up about 6 lb in the past couple of days. She does take a diuretic, notes stage 4 kidney disease in addition to the lymphedema. She has been trying to use her pneumatic compression pumps for her lymphedema but says today it was too painful. Related Data Home Medications ?Medication ?Instructions ?Recorded ?Confirmed allopurinol 100 mg tablet 50 mg PO DAILY 10/07/22 04/16/24 dapagliflozin propanediol 10 mg 10 mg PO QDAY 10/07/22 04/16/24 tablet (Farxiga) zinc sulfate 50 mg zinc (220 mg) 50 mg PO DAILY 10/07/22 04/16/24 capsule clobetasol 0.05 % topical ointment 1 applic topical DAILY PRN 07/24/23 09/09/23 lisinopril 20 mg tablet 20 mg PO DAILY 07/24/23 04/16/24 multivitamin (Daily Multi-Vitamin 1 tab PO DAILY 07/24/23 04/16/24 tablet) acetaminophen 650 mg 650 mg PO Q8H 09/29/23 04/16/24 tablet,extended release lidocaine 5 % topical patch 1 patch transdermal Q24H PRN 09/29/23 (Lidoderm) torsemide 10 mg tablet 10 mg PO DAILY 09/29/23 04/16/24 Previous Rx's ?Medication ?Instructions ?Recorded levothyroxine 25 mcg tablet 25 mcg PO QDAY #90 tabs 09/29/23 simvastatin 20 mg tablet 20 mg PO Q48H #45 tabs 09/29/23 bupropion HCl 300 mg 24 hr tablet, 300 mg PO QDAY #90 tabs 04/05/24 extended release Allergies Allergy/AdvReac Type Severity Reaction Status Date / Time clavulanic acid Allergy Verified 04/16/24 12:22 tazobactam Allergy Verified 04/16/24 12:22 Tetracyclines Allergy Verified 04/16/24 12:22 ibuprofen AdvReac spacing Verified 04/16/24 12:22 out with large doses Review of Systems Status of ROS: Reports: 10 or more systems reviewed and unremarkable except as noted in History and below [facility] Medical History History of renal stone ?Z87.442 - Personal history of urinary calculi (ICD-10) Surgical History 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) ?G57.31 - Lesion of lateral popliteal nerve, right lower limb (ICD-10) History of cataract surgery ?Z98.49 - Cataract extraction status, unspecified eye (ICD-10) History of total knee replacement (2005) ?Z96.659 - Presence of unspecified artificial knee joint (ICD-10) 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 nonsmoker. uses a lift recliner and walker in her home. What is your current living situation?: I presently have a place to live Problems where you live: no known problems Problems where you live details: Two steps from garage into house In the past 12 months, utilities in danger of being shut off: no In past 12 months, lack of transportation kept you from medical appts, meetings, work, or getting things needed for daily living: no In the past 12 mos, have been you worried that your food would run out before you had money to buy more?: never true In the past 12 mos, the food you bought just didn't last and you didn't have money to buy more?: never true Highest level of school completed/degree received: some college, no degree Smoking Status: Never smoker Do you use any of these nicotine containing products: None Second hand tobacco smoke exposure: No How often do you have a drink containing alcohol: 2-3 times a week Alcohol type: wine How often do you have six or more drinks on one occasion: Never AUDIT-C Alcohol total score: 3 Non-prescribed substance use: denies use Caffeine: Yes (Half caffinated coffee) How often does anyone, including family, friends and others, physically hurt you: never How often does anyone, including family, friends and others, insult or talk down to you: never How often does anyone, including family, friends and others, threaten you with harm: never How often does anyone, including family, friends and others, scream or curse at you: rarely Little interest or pleasure in doing things: several days Feeling down, depressed, or hopeless: several days service: No Exam Narrative: Exam Narrative: Vital signs as noted above. In general, an alert, nontoxic woman. Breathing easily. Head: Normocephalic, atraumatic. Eyes: Pupils are equal reactive. Extraocular movements are full. Conjunctivae are normal. ENT: Mucous membranes are moist. Delete Neck: Supple without lymphadenopathy. Heart: Regular rate and rhythm. No murmur or rub. Lungs: Clear bilaterally. No increased work of breathing, crackles or wheezes. Abdomen: Soft and nontender. Delete Extremities: Lymphedema in both lower extremities, right greater than left. She has some venous stasis changes predominantly on the right. No significant erythema, no warmth. Left leg is diffusely tender to palpation. Distal CMS is intact. Range of motion full in the hip, knee, ankle. No effusion in the knee. Neurologic: Patient is alert and oriented to person and place. Speech is fluent. Face is symmetric. Moves all extremities equally. Affect: Normal. Skin: Warm and dry. Well perfused. Const: Vital Signs, click to edit/add: Vital Signs - 24 hr 04/16/24 12:18 04/16/24 12:38 04/16/24 13:00 Temperature 98.4 F Pulse Rate 68 67 Pulse Rate [Pulse Oximeter] 74 Respiratory Rate 18 Blood Pressure Blood Pressure [Ri ght Forearm] 130/49 L Pulse Oximetry 98 99 99 Oxygen Delivery Me thod Room Air 04/16/24 13:02 04/16/24 13:30 04/16/24 13:32 Temperature Pulse Rate 67 67 66 Pulse Rate [Pulse Oximeter] Respiratory Rate Blood Pressure 125/56 L 119/47 L Blood Pressure [Ri ght Forearm] Pulse Oximetry 97 96 97 Oxygen Delivery Me thod 04/16/24 14:00 04/16/24 14:02 Temperature Pulse Rate Pulse Rate [Pulse Oximeter] Respiratory Rate Blood Pressure 118/40 L Blood Pressure [Ri ght Forearm] Pulse Oximetry 79 L Oxygen Delivery Me thod Documenting provider has reviewed patient's vital signs: yes Course Course ED Course: Diagnostic considerations include DVT, radiculopathy, neuropathy, lymphedema. I do not see evidence of cellulitis. Ultrasound was negative for DVT. Labs really are reassuring, her white blood cell count is 7, hemoglobin is 12.4, normal platelets, electrolytes are normal, creatinine is 1.4 BUN 51. Magnesium 2.1 LFTs normal. CRP is 0.6. BNP is 104. TSH remains pending at this time. Discussed with her I do not have a clear explanation for her pain at this time, I think with neuropathy, lymphedema and history of back problems there are few things that could be contributing. For now I have recommended pain control, she is taking fairly large doses of Tylenol, would actually recommend that she take slightly less then she is taking. She says she has been taking 2650 mg tablets 3-4 times daily. I have asked her to do this a maximum of 3 times daily. I did give her oxycodone, 8 tablets from [facility]. She has tolerated hydrocodone without difficulty in the past. Reviewed that this can be habit-forming, is associated with lightheadedness, dizziness, increased risk of falls, constipation. Recommended MiraLax. She is very careful to always use her walker. Primary care follow-up recommended in the next week for recheck. Return any time for new or worsening symptoms. Vital Signs Vital signs: Initial Vital Signs Temperature 98.4 F 04/16/24 12:18 Temperature Source Temporal Artery Scan 04/16/24 12:18 Pulse Rate 74 04/16/24 12:18 Pulse Rhythm Regular 04/16/24 12:18 Pulse Strength 3+ Normal 04/16/24 12:18 Respiratory Rate 18 04/16/24 12:18 Blood Pressure 130/49 L 04/16/24 12:18 Blood Pressure Mean 76 04/16/24 12:18 Blood Pressure Position Semi-Fowlers 04/16/24 12:18 Pulse Oximetry 98 04/16/24 12:18 Oxygen Delivery Method Room Air 04/16/24 12:18 Vital Signs Temperature 98.4 F 04/16/24 12:18 Pulse Rate 74 04/16/24 12:18 Respiratory Rate 18 04/16/24 12:18 Blood Pressure 130/49 L 04/16/24 12:18 Pulse Oximetry 98 04/16/24 12:18 Oxygen Delivery Method Room Air 04/16/24 12:18 Temperature 98.4 F 04/16/24 12:18 Pulse Rate 66 04/16/24 13:32 Respiratory Rate 18 04/16/24 12:18 Blood Pressure 118/40 L 04/16/24 14:02 Pulse Oximetry 79 L 04/16/24 14:00 Oxygen Delivery Method Room Air 04/16/24 12:18 Medical Decision Making Lab Data Labs: Lab Results 04/16/24 Range/Units 12:48 WBC 7.03 (4.50-11.00) K/uL RBC 4.19 (4.00-5.20) m/uL Hgb 12.4 (12.0-16.0) gm/dL Hct 37.9 (33.0-51.0) % MCV 91 (80-100) fL MCH 30 (26-34) pg MCHC 33 (32-36) gm/dL RDW Coeff of Baylee 13.6 (11.5-15.5) % Plt Count 173 (140-440) K/uL Neut % (Auto) 71.9 (42.0-72.0) % Lymph % (Auto) 17.9 L (20-44) % Gates % (Auto) 6.8 (0.0-11.0) % Eos % (Auto) 2.1 (0.0-7.0) % Baso % (Auto) 0.3 (0.0-3.0) % Neut # (Auto) 5.05 (1.7-7.0) K/uL Lymph # (Auto) 1.30 (0.90-2.90) K/uL Gates # (Auto) 0.50 (0.00-0.90) K/UL Eos # (Auto) 0.15 (0.00-0.50) K/uL Baso # (Auto) 0.02 (0.00-0.30) K/uL Abs Immat Gran (auto) 0.07 (0.00-0.30) K/uL Imm/Tot Granulo (auto) 1.0 % Sodium 138 (135-149) mmol/L Potassium 5.1 (3.6-5.1) mmol/L Chloride 107 (96-114) mmol/L Carbon Dioxide 24 (20-32) mmol/L Anion Gap 7 (7-15) mEq/L BUN 51 H (7-30) mg/dL Creatinine 1.4 (0.5-1.5) mg/dL Estimated Creat Clear 25.96 Estimated GFR 37 ml/min Glucose 88 (60-115) mg/dL Calcium 9.3 (8.4-10.6) mg/dL Magnesium 2.1 (1.5-2.6) mg/dL Total Bilirubin 0.5 (0.1-1.5) mg/dL Direct Bilirubin 0.4 (0.0-0.5) mg/dL AST 27 (12-35) U/L ALT 25 (4-35) U/L Alkaline Phosphatase 66 (40-150) U/L C-Reactive Protein 0.6 (0.5-1.0) mg/dL NT-Pro-B Natriuret Pep 104 pg/mL Total Protein 6.9 (6.0-8.3) g/dL Albumin 4.2 (3.3-5.0) g/dL Discharge Plan Discharge Clinical Impression: Left leg pain Patient Disposition: Home, Self-Care Condition: Stable Instructions: Leg Pain (ED) Additional Instructions: Please make a follow-up appointment with your primary doctor for recheck in the next week. Continue to take Tylenol, I would recommend 1000 mg 3 times daily for your baseline pain control. I have given you a prescription for oxycodone, you can use this for uncontrolled pain particularly at night. Be aware that this can be habit-forming, can cause lightheadedness or dizziness, confusion, sleepiness, and constipation. I would recommend you take MiraLax 1 capful daily while using this medication to help minimize constipation. Prescriptions: No Action lidocaine [Lidoderm] 5 % adhesive patch,medicated 1 patch transdermal Q24H PRN levothyroxine 25 mcg tablet 25 mcg PO QDAY Qty: 90 3RF simvastatin 20 mg tablet 20 mg PO Q48H Qty: 45 3RF zinc sulfate 50 mg zinc (220 mg) capsule 50 mg PO DAILY acetaminophen 650 mg tablet extended release 650 mg PO Q8H allopurinol 100 mg tablet 50 mg PO DAILY Farxiga 10 mg tablet 10 mg PO QDAY clobetasol 0.05 % ointment 1 applic topical DAILY PRN lisinopril 20 mg tablet 20 mg PO DAILY multivitamin [Daily Multi-Vitamin] Tablet 1 tab PO DAILY torsemide 10 mg tablet 10 mg PO DAILY Rx Instructions: Take 2 tabs PRN bupropion HCl 300 mg tablet extended release 24 hr 300 mg PO QDAY Qty: 90 1RF Follow Up/Referrals: Diane Alejandra MD [Primary Care Provider] - Stand Alone Forms: OVGuide Info Instructions
--- OUTSIDE RECORDS SUMMARY | 2024-04-16 12:29 | XMS_ITS | Continuity of Care Document ---
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 No Information Kev Hanahim. [address], [id number], [place]. tel:[phone] Israel Collazo MD. tel:[phone] [facility], [address] [address], [place], [place], [id number], tel:[phone] [facility] Diarrhea, unspecified Kev Hanahim. [address], [id number], [place]. tel:[phone] Israel Collazo MD. tel:[phone] erring Provider: Referral Self, USE FOR SELF REFERRALS. Offic/outpt E&m [facility], [address] [address], [place], [place], [id number], tel:[phone] [facility] GI Symptoms or Concerns (chief complaint) Altered bowel habitsDiarrhea , unspecified typeDietary counseling and surveillance Kev Hanahim. [address] [place] [address], [id number], . tel:[phone] Referring Provider: Referral Self, USE FOR SELF REFERRALS. Family History Family Member Type Diagnosis Age At Onset Son Problem (finding) Alive and well Mother Problem (finding) stroke Son Problem (finding) alcoholism Father Problem (finding) malignant neoplasm of l devora Sister Problem (finding) vaginal cancer Payers Payer name Insurance type Covered green party ID Authorvladislava tion(s) Medicare NGS MB [id number] [employer] [id number] Social History Type Description Quantity Date Captured [...] or vomiting. Patient was recently seen at [facility] where she underwent the following tests: Colonoscopy: Diverticulosis in the descending colon, and in the transverse colon. Patent [id number] ileocolonic anastomosis, characterized by healthy appearing mucosa. [...]
--- OUTSIDE RECORDS SUMMARY | 2024-04-16 12:30 | XMS_ITS | Referral Summary ---
Author Organization [facility] Address [address] [place] [address] Care Team Providers Care Wire Harness Assembler Name Role Phone Elsewhere, Pcp Primary Care Provider Unavailabl e Source Comments Patient records contain information from all sites at [facility]. For routine questions regarding patient records, call [phone] during business hours, M-F 8:00 AM - 5:00 PM Central Time. Record requests for emergency care only can be directed to [phone] at any time.[facility] Encounters Date Type Department Care Team Description 03/31/2024 Refill Division of Nephrology and Hypertension in [place], [place] [address] [place] [address] Maddie Velásquez APRN, C.N.P., M.S. Med Question (Priority 3) 01/22/2024 2:30 PM CUFF CUTTER Education Division of Nephrology and Hypertension in [place], [place] [address] [place] [address] Maddie Velásquez APRN, C.N.P., M.S. Juan Carlos Finney, R.N. Chronic Kidney Disease Stage 4 Glomerular Filtration Rate 15-29 ([facility]) 01/22/2024 1:45 PM CUFF CUTTER Office Visit Division of Nephrology and Hypertension in [place], [place] [address] [place] [phone] Maddie Velásquez APRN, C.N.P., M.S. Hypertensive Chronic Kidney Disease (CKD) Stage 3b Glomerular Filtration Rate (GFR) 30 To 44 (HCC) (Primary Dx) 01/21/2024 Clinical Communication Division of Nephrology and Hypertension in [place], [place] [address] [place] [address] Mae Schilling R.N. Appointment from Last 3 Months Allergies Active Allergy Reactions Criticality Noted Date Comments Amoxicillin-Pot Clavulanate Nausea And Vomiting 04/03/2006 Furosemide Rash 02/11/2023 Ibuprofen Other (see comments) 09/27/2002 in large quantities- personality change Tazobactam Nausea Only 11/29/2019 Tetracycline Other (see comments) 09/28/2002 Yeast infection Medications Medication Sig Dispensed Refills Start Date End Date Status buPROPion XL (WELLBUTRIN XL) 300 mg 24 hr tablet Take 300 mg by mouth daily. Active esomeprazole (NexIUM) [address] capsule Take 20 mg by mouth as needed. Hardly ever Active levothyroxine (SYNTHROID, LEVOTHROID) 25 mcg tablet Take 25 mcg by mouth daily. Active sennosides (SENNA LAX ORAL) Take 1 tablet by mouth as needed. 10/15/2007 Active ZINC ACETATE ORAL Take 50 mg by mouth daily. Active collagen, hydrolysate, bovine, (collagen, hydr, bovine,, bulk,) 100 % powder daily. Active coenzyme Q10 (CO Q-10) 200 mg capsule Take 200 mg by mouth as needed. Active UNABLE TO FIND as needed. Nopalea juice - 1 shot daily Active simvastatin (ZOCOR) 20 mg tablet Take 20 mg by mouth every other day. 08/26/2021 Active UNABLE TO FIND 2 (two) times a day. Med Name: Serovital Advanced Active psyllium seed, with sugar, (FIBER ORAL) Take 2 each by mouth as needed. Fibermucil capsule Active UNABLE TO FIND as needed. Circulation and vein support for healthy legs Active clobetasol propionate 0.05 % in petrolatum Apply 60 g topically 2 (two) times a day. Apply to legs Active acetaminophen (TYLENOL 8 HR) 650 mg ER tablet Take 1,300 mg by mouth every 8 (eight) hours as needed for pain. Active multivitamin capsule Take 1 capsule by mouth daily. Active Lactobacillus acidophilus (PROBIOTIC ORAL) Take 2 capsules by mouth daily. Active UNABLE TO FIND Take by mouth daily. Med Name: Lymph Support Contains echinacea, dandelion, burdock, priyanka, lemon peel, Bromelain, Fucoxanthin Rich Seaweed Active UNABLE TO FIND Take by mouth daily. Med Name: Cholesterol support Contains: bergamot skin extract, red yeast rice, berberine, policosanol Active UNABLE TO FIND Take by mouth daily. Med Name: Kidney Health Contains Vitamin B6, magnesium, grape seed extract, phyllanthus niuri, berberine HCL, safron flower extract, turmeric root extract, black pepper fruit extract Active torsemide (DEMADEX) 10 mg tabletIndications: Hypertensive Chronic Kidney Disease (CKD) Stage 3b Glomerular Filtration Rate (GFR) 30 To 44 Take 1 tablet (10 mg total) by mouth daily. Take an additional 10 mg tablet daily for weight gain of 3 lbs overnight or 5 lbs over 1 week 90 tablet 3 11/25/2023 11/24/2024 Active lisinopriL (PRINIVIL,ZESTRIL) 20 mg tabletIndications: Hypertensive Chronic Kidney Disease (CKD) Stage 3b Glomerular Filtration Rate (GFR) 30 To 44 Take 1 tablet (20 mg total) by mouth daily. 90 tablet 3 11/25/2023 11/24/2024 Active dapagliflozin propanediol (Farxiga) 10 mg tabletIndications: Hypertensive Chronic Kidney Disease (CKD) Stage 3b Glomerular Filtration Rate (GFR) 30 To 44 Take 1 tablet (10 mg total) by mouth daily. 90 tablet 3 11/25/2023 Active allopurinoL (ZYLOPRIM) 100 mg tabletIndications: Hypertensive Chronic Kidney Disease (CKD) Stage 3b Glomerular Filtration Rate (GFR) 30 To 44 Take 0.5 tablets (50 mg total) by mouth daily. 45 tablet 3 11/25/2023 Active DME CPAPIndications:Ob structive Sleep Apnea Adult DME Order 1 each 12/12/2023 Active Active Problems Problem Noted Date Diagnosed Date Cold Intolerance 03/28/2022 Lesion Skin 05/11/2021 Chronic Kidney Disease Stage 4 Glomerular Filtration Rate 15-29 05/10/2021 Other Specified Heart Block 05/10/2021 Incompetence Chronotropic 05/10/2021 Incontinence Urinary 03/26/2021 Edema Leg 03/22/2021 Hypertensive Chronic Kidney Disease (CKD) Stage 3b Glomerular Filtration Rate (GFR) 30 To 44 03/22/2021 Thrombosis Deep Vein Personal History 03/22/2021 Dyspnea On Exertion 03/22/2021 Morbid Obesity Body Mass Index 40.0-44.9 Adult 0 03/22/2021 Obstructive Sleep Apnea Adult 03/22/2021 History Of Falling 03/22/2021 Hyperlipidemia On Treatment Hypertension Personal History Resolved Problems Problem Noted Date Diagnosed Date Resolved Date Dysuria 03/26/2021 03/31/2021 Immunizations Name Administration Dates Next Due H1N1 All Forms 11/14/2009 HZV (ZOSTAVAX) 08/13/2012 HepB, Unspecified 01/15/2005,12/12/2004 Influenza (IM) Preservative Free 07/14/2010 Influenza TIV (IM) 08/16/2009, 7,09/15/2006,2002,09/27/2002,11/24/2001 Influenza high dose QV(65 ye ars or older) (PF) 08/27/2022 Influenza, Seasonal, Injectable 08/13/20 12,09/16/2007,09/15/2006,2002,09/27/2002 Influenza, Unspecified 08/17/2020,08/20/2013 PCV13 09/29/2015 PPD Test 02/21/2003 PPSV23 08/10/2010,09/05/1994 RZV (SHINGRIX) 10/29/2018,08/20/2018 SARS-COV-2 (COVID-19) - PFIZ ER (Discontinued)(12 years or older) 09/12/2021,02/17/2021,01/27/2021 Td Preservative Free (TENIVA C, DECAVAC) 08/10/2010,01/24/2000 Tdap 11/19/2016 influenza high dose (65 year s or older) (PF) 08/25/2019,08/15/2018,07/31/2017,2015 influenza vaccine quad (FLUZONE/FLUARIX) (6 months and older)(PF) 09/12/2021 Social History Tobacco Use Types Packs/Day Years Used Date Smoking Tobacco: Never Smokeless Tobacco: Never Tobacco Cessation:Counseling Given: Not Answered Alcohol Use Standard Drinks/Week Comments Not Currently 0 (1 standard drink = 0.6 oz pur e alcohol) Humiliation, Afraid, Rape, and Kick questionnair e Answer Date Recorded Within the last year, have y ou been afraid of your partner or ex-partner? No 03/10/2023 Within the last year, have y ou been humiliated or emotionally abused in other ways by your partner or ex-partner? No Within the last year, have y ou been kicked, hit, slapped, or otherwise physically hurt by your partner or ex-partner? No 03/10/2023 Within the last year, have y ou been raped or forced to have any kind of sexual activity by your partner or ex-partner? No 03/10/2023 Social Connection and Isolation Panel [NHANES] A nswer Date Recorded In a typical week, how many times do you talk on the phone with family, friends, or neighbors? Three times a week 03/10/20 How often do you get togethe r with friends or relatives? Once a week 03/10/2023 How often do you attend [facility] or episcopal services? 1 to 4 times per year 03/10/2023 Do you belong to any clubs o r organizations such as sabianism groups, unions, fraternal or athletic groups, or school groups? No 03/10/2023 How often do you attend meet ings of the clubs or organizations you belong to? Never 03/10/2023 Are you , , di vorced, , never , or living with a partner? 03/10/2023 AUDIT-C Answer Date Recorded Q1: How often do you have a drink containing alc ohol? 2-3 times a week 03/10/2023 Q2: How many drinks containi ng alcohol do you have on a typical day when you are drinking? 1 or 2 03/10/2023 Q3: How often do you have si x or more drinks on one occasion? Never 03/10/2023 Overall Financial Resource Strain (CARDIA) Answe r Date Recorded How hard is it for you to pa y for the very basics like food, housing, medical care, and heating? Not hard at all 03/10/2023 PHQ-2 Answer Date Recorded PHQ-2 Score 3 03/22/2021 [facility] - Occupational Stress Questionnaire Answer Date Recorded Do you feel stress - tense, restless, nervous, or anxious, or unable to sleep at night because your mind is troubled all the time - these days? Only a little 03/10/2023 Exercise Vital Sign Answer Date Recorde d On average, how many days pe r week do you engage in moderate to strenuous exercise (like a brisk walk)? 0 days 03/10/2023 On average, how many minutes do you engage in exercise at this level? 0 min 03/10/2023 Hunger Vital Sign Answer Date Recorded Within the past 12 months, y ou worried that your food would run out before you got the money to buy more. Never true 03/10/20 23 Within the past 12 months, t he food you bought just didn't last and you didn't have money to get more. Never true 03/10/2023 PRAPARE - Transportation Answer Date Re corded In the past 12 months, has l ack of transportation kept you from medical appointments or from getting medications? No 02/16 In the past 12 months, has l ack of transportation kept you from meetings, work, or from getting things needed for daily living? No 03/10/2023 Housing Stability Vital Sign Answer Vitor e Recorded In the last 12 months, was t here a time when you were not able to pay the mortgage or rent on time? No 03/10/2023 In the last 12 months, how many places have you lived? 1 03/10/2023 In the last 12 months, was t here a time when you did not have a steady place to sleep or slept in a jail (including now)? No 03/10/2023 Depression Answer Date Recor ded PHQ-9 Total Score (max 27) 15 03/22 Nutrition Answer Date Recorded Nutrition: EVOO Fat Source No 03/10 On average, how many serving s of fruits and vegetables do you eat per day (serving size is equal to 1 cup or approximately the size of a tennis ball)? 4-5 03/10/2023 Dental Answer Date Recorded Dental: Regular Dentist Yes 03/22/20 Employment Answer Date Recorded Employment status Retired 03/10/2023 Education Answer Date Recorded What is the highest level of school you have completed or the highest degree you have received? Associate degree: occupational, technical, or vocational program 02/19/2022 Sex and Gender Information Value Date Recorded Sex Assigned at Female 02/19/2022 7:48 AM CDT Gender Identity Female 02/19/2022 7:48 AM CDT Sexual Orientation Straight 02/19/2022 7: 48 AM CDT Last Filed Vital Signs Vital Sign Reading Time Taken Comments Blood Pressure 136/81 01/22/2024 1:35 PM CUFF CUTTER Pulse 60 06/12/2023 9:45 AM CDT Temperature 36.5 ??C (97.7 ??F) 06/12/2023 9:45 AM CD T Respiratory Rate - - Oxygen Saturation 97% 08/15/2021 11:41 AM CDT Inhaled Oxygen Concentration - - Weight 114 kg (251 lb 5.2 oz) 01/22/2024 1:35 PM CUFF CUTTER Height 160.9 cm (5' 3.35) 06/12/2023 9:45 AM CD T Body Mass Index 44.04 06/12/2023 9:45 AM CDT Plan of Treatment Upcoming Encounters Date Type Department Care Team (Late st Contact Info) Description 05/25/2024 12:00 PM CDT Appointment Department of Laboratory Medicine and Pathology, [place], [place] [address] [place] [phone] Maddie Velásquez APRN, C.N.P., M.S. [address] [place] [phone] 05/25/2024 12:10 PM CDT Appointment Department of Laboratory Medicine and Pathology, [facility] in [place], [place] [address] [place] [phone] Maddie Velásquez APRN, C.N.P., M.S. [address] [place] [phone] 05/25/2024 3:15 PM CDT Office Visit Division of Nephrology and Hypertension in [place], [place] [address] [place] [phone] Maddie Velásquez APRN, C.N.P., M.S. [address] [place] [phone] Medical Devices Implanted Type Area Rn Supplemental Device Identifier Shelf Expiration Date Model / Serial / Lot Hardware E.G. Pins/Screws/Felix s Hardware e.g. 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 Conversions - Default Historical Implant Device Implanted:04/17 (Quantity not on file) Hip Implant Bilateral : Hip Description:Device Status Te xt - Total hip Left + right hip Knee Implant Knee Implant Right: Knee Description:Total right knee replacement Ocular Lens Ocular Lens Eye Description:Patient states c ataracts removed from both eyes. Procedures Procedure Name Priority Date/Time Associated Diagnosis Comments EXTM RENAL FUNCTION PANEL, S Routine 01/10/2024 from Last 3 Months or Most Recently Relevant to Health Maintenance Results * (ABNORMAL) EXT Renal Function Panel (01/10/2024) EXT BUN (Blood Urea Nitrogen) 43(A) 7 - 30 [facility] EXT Calcium, Total 9.9 8.4 - 10.6 [facility] EXT Creatinine, S 1.6(A) 0.5 - 1.5 [facility] EXT Glucose, S 108 60 - 115 [facility] EXT Bicarbonate, S 28 20 - 32 [facility] EXT Potassium 4.5 3.6 - 5.1 [facility] EXT Sodium 142 135 - 149 mmol/L [facility] EXT Albumin 4.3 3.3 - 5.0 g/dL [facility] EXT Phosphorus (Inorganic), S 3.8(A) 15 - 65 [facility] EXT Estimated GFR (eGFR) 31 [facility] Blood (Blood, Venous) 01/10/2024 Historical Provider LAB BLOOD ADD-ON [facility] [address] [place] [address], [facility] [phone] from Last 3 Months or Most Recently Relevant to Health Maintenance Care Teams Wire Harness Assembler Relationship Specialty Start Date End Date Elsewhere, Pcp PCP - General Internal Medicine 03/26/22
--- OUTSIDE RECORDS SUMMARY | 2024-04-16 12:30 | XMS_ITS | Encounter Summary ---
Author Organization [facility] Address [address] [place] [address] Care Team Providers Care Salvage Machine Operator Name Role Phone Elsewhere, Pcp Primary Care Provider Unavailabl e Reason for Referral * Outpatient (Routine) - Authorized Specialty Diagnoses / Procedures Referred By Bettye martinez Referred To Contact Sleep Medicine Alla Wilder M.D. [address] [place] [phone] [facility] Referral ID Status Reason Start Date Expiration Date V isits Requested Visits Authorized [id number] Authorized 12/12/2023 06/12/2025 1 1 Scheduling Instructions RN Protocol if applicable CE SERVICES COORDINATOR Encounter Details Date Type Department Care Team (Late st Contact Info) Description 12/12/2023 Clinical Communication Center for Sleep Medicine in [place], [place] [address] [phone] Sammy Reno M.D. [address] [place] [phone] Social History Tobacco Use Types Packs/Day Years [...] week 03/10/2023 How often do you attend [facility] or baptist services? 1 to 4 times per year 03/10/2023 Do you belong to any clubs o r organizations such as scientologist groups, unions, fraternal [...] Answer Date Recorded PHQ-2 Score 3 03/22/2021 [facility] - [facility]ational Stress Questionnaire Answer [...] or slept in a [facility] (including now)? No 03/10/2023 Depression Answer Date [...] Orientation Straight 02/19/2022 7: 48 AM CDT documented as of this encounter Miscellaneous Notes * Telephone Encounter - Shyanne Gore R.N. - 12/12/2023 3:56 PM CST Ms. Yap is currently well established and stable in management of PAP therapy for the management of sleep disordered breathing. CPAP prescription renewal generated per protocol [id number]. The prescription will be sent to [facility]. CE SERVICES COORDINATOR * Telephone Encounter - Shyanne Gore R.N. - 12/12/2023 3:45 PM CST Vielka Yap continues to have a medical condition for which PAP is medically indicated.The replacement of accessories is medically necessary and essential to use PAP effectively. CE SERVICES COORDINATOR documented in this encounter Plan of Treatment Upcoming Encounters Date Type Department Care Team (Late st Contact Info) Description 05/25/2024 12:00 PM CDT Appointment Department of Laboratory Medicine and Pathology, [place], [place] [address] [place] [phone] Maddie Velásquez APRN, C.N.P., M.S. [address] [place] [phone] 05/25/2024 12:10 PM CDT Appointment Department of Laboratory Medicine and Pathology, [place], [place] [address] [place] [phone] Maddie Velásquez APRN C.N.P., M.S. [address] [place] [phone] 05/25/2024 3:15 PM CDT Office Visit Division of Nephrology and Hypertension in [place], [place] [address] [place] [phone] Maddie Velásquez APRN, C.N.P., M.S. [address] [place] [phone] Scheduled Referrals Name Type Priority Associated Diagnoses Orde r Schedule Sleep Medicine nurse visit (clinic) Outpatient Referral Routine Expected: 12/12/2024 (Approximate), Expires: 03/12/2025 documented as of this encounter Visit Diagnoses Diagnosis Obstructive Sleep Apnea Adult- Primary documented in this encounter Additional Health Concerns Assessment Noted Time PHQ-9 Depression Total Score: 15 021 12:16 PM CDT documented as of this encounter Care Teams Salvage Machine Operator Relationship Specialty Start Date End Date Elsewhere, Pcp PCP - General Internal Medicine 03/26/22 documented as of this encounter
--- OUTSIDE RECORDS SUMMARY | 2024-04-16 12:30 | XMS_ITS ---
Author Organization [facility] Address [address] [place] [address] Care Team Providers Care Corporate Trust Officer Name Role Phone Elsewhere, Pcp Primary Care Provider Unavailabl e Kidney Mat Worker Program Status:Enrolled (Active) Start date:12/25/2023 Enrollment date:01/22/2024 Enrollment reason:Referred by provider Current support & services provided:Stage 3b Continued Care and Services Coordination
--- OUTSIDE RECORDS SUMMARY | 2024-04-16 12:30 | XMS_ITS | Encounter Summary ---
Author Organization [facility] Address [address] [place] [address] Care Team Providers Care Biodiesel Production Technician Name Role Phone Elsewhere, Pcp Primary Care Provider Unavailabl e Encounter Details Date Type Department Care Team (Late st Contact Info) Description 01/22/2024 2:30 PM EXPERIMENTAL MECHANIC ELECTRICAL Education Division of Nephrology and Hypertension in [place], [place] [address] [place] [phone] Maddie Velásquez, RYANN, C.N.P., M.S. [address] [place] [phone] Juan Carlos Finney R.N. [address] [place] [phone] Chronic Kidney Disease Stage 4 Glomerular Filtration Rate 15-29 ([facility]) Social History Tobacco Use Types Packs/Day Years [...] week 03/10/2023 How often do you attend chur ch or sikh services? 1 to 4 times per year 03/10/2023 Do you belong to any clubs o r organizations such as christian groups, unions, fraternal [...] Answer Date Recorded PHQ-2 Score 3 03/22/2021 [facility] - Occupational Stress Questionnaire [...] or slept in a [facility] (including now)? No 03/10/2023 Depression Answer Date [...] Date Recorded Dental: Regular Dentist Yes 03/22/20 21 Employment Answer Date Recorded Employment status Retired [...] documented as of this encounter Progress Notes * Juan Carlos Finney R.N. - 01/22/2024 2:30 PM CST Patient was here today for first education visit on renal replacement therapies with Kidney Adult Literacy Teacher Nurse. We reviewed contents of education folder which included: 0533 Chronic Kidney Disease Treatment Options, 2877 Living Donor Kidney Transplant, 6228-01 Palliative and Supportive Care Service, 2960 Palliative Care for people with serious illness, 1181 Home Dialysis, 1181- 11 Basics of Hemodialysis, 1697 Basics of Peritoneal Dialysis. Contact information for Kidney Adult Literacy Teacher nurse was provided. Patient will be scheduled for follow up with Kidney Adult Literacy Teacher nurse. RIMENTAL MECHANIC ELECTRICAL documented in this encounter Plan of Treatment Upcoming Encounters Date Type Department Care Team (Late st Contact Info) Description 05/25/2024 12:00 PM CDT Appointment Department of Laboratory Medicine and Pathology, [facility] in [place], [place] [address] [place] [phone] Maddie Velásquez APRN, C.N.P., M.S. [address] [place] [phone] 05/25/2024 12:10 PM CDT Appointment Department of Laboratory Medicine and Pathology, [facility] in [place], [place] [address] [place] [phone] Maddie Velásquez APRN, C.N.P., M.S. [address] [place] [phone] 05/25/2024 3:15 PM CDT Office Visit Division of Nephrology and Hypertension in [place], [place] [address] [place] [phone] Maddie Velásquez APRN, C.N.P., M.S. [address] [place] [phone] documented as of this encounter Visit Diagnoses Diagnosis Chronic Kidney Disease Stage 4 Glomerular Filtration Rate 15-29 (HCC) documented in this encounter Additional Health Concerns Assessment Noted Time PHQ-9 Depression Total Score: 15 021 12:16 PM CDT documented as of this encounter Care Teams Biodiesel Production Technician Relationship Specialty Start Date End Date Elsewhere, Pcp PCP - General Internal Medicine 03/26/22 documented as of this encounter
--- OUTSIDE RECORDS SUMMARY | 2024-04-16 12:30 | XMS_ITS | Clinical Summary ---
Author Organization [facility] Address [address] [place] [address] Care Team Providers Care Silviculture Professor Name Role Phone Elsewhere, Pcp Primary Care Provider Unavailabl e Source Comments Patient records contain information from all sites at [facility]. For routine questions regarding patient records, call [phone] during business hours, M-F 8:00 AM - 5:00 PM Central Time. Record requests for emergency care only can be directed to [phone] at any time.[facility] Allergies Active Allergy Reactions Criticality Noted Date [...] Diagnosed Date Resolved Date Dysuria 03/26/2021 03/31/2021 Encounters Date Type Department Care Team Description 03/31/2024 Refill Division of Nephrology and Hypertension in [place], [place] [address] [place] [address] Maddie Velásquez APRN, C.N.P., M.S. Med Question (Priority 3) 01/22/2024 2:30 PM COILED TUBING OPERATOR Education Division of Nephrology and Hypertension in [place], [place] [address] [place] [address] Maddie Velásquez APRN, C.N.P., M.S. Juan Carlos Finney, R.N. Chronic Kidney Disease Stage 4 Glomerular Filtration Rate 15-29 ([facility]) 01/22/2024 1:45 PM COILED TUBING OPERATOR Office Visit Division of Nephrology and Hypertension in [place], [place] [address] [place] [address] Maddie Velásquez APRN C.N.P., M.S. Hypertensive Chronic Kidney Disease (CKD) Stage 3b Glomerular Filtration Rate (GFR) 30 To 44 (HCC) (Primary Dx) 01/21/2024 Clinical Communication Division of Nephrology and Hypertension in [place], [place] [address] [place] [address] Mae Schilling R.N. Appointment from Last 3 Months Immunizations Name Administration [...] quad (FLUZONE/FLUARIX) (6 months and older)(PF) 09/12/2021 Family History Medical History Relation Name Comments Lung cancer Father josias singhesch Stroke Mother chuckie romeo Ovarian cancer Sister 1 pat dtamond Kidney cancer Sister 2 allen olsenm kidney rem sherice Ovarian cancer Sister 2 allen flanagam Ovarian cancer Sister 3 alvarez shabaztan Relation Name Status Comments Father josias cortez Mother chuckie romeo Sister 1 pat dtamond Sister 2 allen cohen Sister 3 alvarez h[place] Social History Tobacco Use Types Packs/Day Years [...] week 03/10/2023 How often do you attend [facility] or rastafari services? 1 to 4 times per year 03/10/2023 Do you belong to any clubs o r organizations such as methodist groups, unions, fraternal or athletic groups, or [...] Answer Date Recorded PHQ-2 Score 3 03/22/2021 [facility] - Occupational Stress Questionnaire Answer Date Recorded [...] or slept in a fdc (including now)? No 03/10/2023 Depression Answer Date [...] Comments Blood Pressure 136/81 01/22/2024 1:35 PM COILED TUBING OPERATOR Pulse 60 06/12/2023 9:45 AM CDT Temperature 36.5 ??C (97.7 ??F) 06/12/2023 9:45 AM CD T Respiratory Rate - - Oxygen Saturation 97% 08/15/2021 11:41 AM CDT Inhaled Oxygen Concentration - - Weight 114 kg (251 lb 5.2 oz) 01/22/2024 1:35 PM COILED TUBING OPERATOR Height 160.9 cm (5' 3.35) 06/12/2023 9:45 AM CD T Body Mass Index 44.04 06/12/2023 9:45 AM CDT Plan of Treatment Upcoming Encounters Date Type Department Care Team (Late st Contact Info) Description 05/25/2024 12:00 PM CDT Appointment Department of Laboratory Medicine and Pathology, [place], [place] [address] [place] [phone] Maddie Velásquez APRN, C.N.P., M.S. [address] [place] [phone] 05/25/2024 12:10 PM CDT Appointment Department of Laboratory Medicine and Pathology, [place], [place] [address] [place] [phone] Maddie Velásquez APRN, C.NMariya., M.S. [address] [place] [phone] 05/25/2024 3:15 PM CDT Office Visit Division of Nephrology and Hypertension in [place], [place] [address] [place] [address] Maddie Velásquez APRN, C.NMariya., M.S. [address] [place] [phone] Health Maintenance Due Date Last Done Comments Hepatitis B Vaccines (3 of 3 - 19+ 3-dose series) 06/11/2005 01/15/2005, 12/12/2004 COVID-19 Vaccine (2022-2 4 season) 2023 09/12/2021, 02/17/2021, 01/27/2021 Depression Screening (Annual PHQ-2) 11/17/2023 Fall Risk Screen (Annual) 11/17/2023 Creatinine Level (Kidney Fun ction Test) 01/10/2025 01/10/2024, 09/25/2023, 09/25/2023, Additional history exists Potassium Level 01/10/2025 01/10/2024, 07/2023, 09/25/2023, Additional history exists Sodium Level 01/10/2025 01/10/2024, 07/2023, 09/25/2023, Additional history exists DTaP,Tdap,and Td Vaccines (2 - Td or Tdap) 11/19/2026 11/19/2016, 08/10/2010, 01/24/2000 Pneumococcal vaccine (65+ years) Completed 09/29/2015, 08/10/2010, 09/05/1994 Zoster Vaccines Completed 10/29/2018, 02/2018, 08/13/2012 Influenza Vaccine Completed 07/16/2023, , 09/12/2021, Additional history exists Medical Devices Implanted Type Area Strike Out Machine Operator Device Identifier Shelf Expiration Date Model / [...] (Blood Urea Nitrogen) 43(A) 7 - 30 [facility]T Calcium, Total 9.9 8.4 - 10.6 [facility] EXT Creatinine, S 1.6(A) 0.5 - 1.5 [facility] EXT Glucose, S 108 60 - 115 [facility] EX[facility] Bicarbonate, S 28 20 - 32 [facility] EXT Potassium 4.5 3.6 - 5.1 [facility] EXT Sodium 142 135 - 149 mmol/L [facility] EXT Albumin 4.3 3.3 - 5.0 g/dL [facility] EXT Phosphorus (Inorganic), S 3.8(A) 15 - 65 [facility] EXT Estimated GFR (eGFR) 31 [facility] Blood (Blood, Venous) 01/10/2024 Historical Provider LAB BLOOD ADD-ON [facility] [address] [phone] from Last 3 Months or Most Recently Relevant to Health Maintenance Care Teams Silviculture Professor Relationship Specialty Start Date End Date Elsewhere, Pcp PCP - General Internal Medicine 03/26/22
--- OUTSIDE RECORDS SUMMARY | 2024-04-16 12:30 | XMS_ITS | Encounter Summary ---
Author Organization [facility] Address [address] [place] [address] Care Team Providers Care Exterior Designer Name Role Phone Elsewhere, Pcp Primary Care Provider Unavailabl e Reason for Visit * Reason Onset Date Comments Appointment 01/21/2024 Encounter Details Date Type Department Care Team (Late st Contact Info) Description 01/21/2024 Clinical Communication Division of Nephrology and Hypertension in [place], [place] [address] [place] [address] Mae Schilling, RSharonNSharon [address] [place] [phone] Appointment Social History Tobacco Use Types Packs/Day Years [...] 03/10/2023 How often do you attend chur or mandaen services? 1 to 4 times per year 03/10/2023 Do you belong to any clubs o r organizations such as sikh groups, unions, fraternal [...] Answer Date Recorded PHQ-2 Score 3 03/22/2021 [facility] - Occupational Stress Questionnaire Answer Date [...] slept in a care home (including now)? No 03/10/2023 Depression Answer Date [...] as of this encounter Plan of Treatment Upcoming Encounters Date Type Department Care Team (Late st Contact Info) Description 05/25/2024 12:00 PM CDT Appointment Department of Laboratory Medicine and Pathology, [facility], in [place], [place] [address] [place] [address] Maddie Velásquez APRN, C.N.P., M.S. [address] [place] [phone] 05/25/2024 12:10 PM CDT Appointment Department of Laboratory Medicine and Pathology, [facility] in [place], [place] [address] [place] [phone] Maddie Velásquez APRN, C.NMariya., M.S. [address] [place] [phone] 05/25/2024 3:15 PM CDT Office Visit Division of Nephrology and Hypertension in [place], [place] [address] [place] [phone] Maddie Velásquez APRN, C.N.P., M.S. [address] [place] [phone] documented as of this encounter Visit Diagnoses Diagnosis Hypertensive Chronic Kidney Disease (CKD) Stage 3b Glomerular Filtration Rate (GFR) 30 To 44- Primary documented in this encounter Additional Health Concerns Assessment Noted Time PHQ-9 Depression Total Score: 15 021 12:16 PM CDT documented as of this encounter Care Teams Exterior Designer Relationship Specialty Start Date End Date Elsewhere, Pcp PCP - General Internal Medicine 03/26/22 documented as of this encounter
--- OUTSIDE RECORDS SUMMARY | 2024-04-16 12:30 | XMS_ITS | Referral Summary ---
Author Organization [facility] Address [address] [place] [address] Care Team Providers Care Chocolatier Name Role Phone Diane Alejandra MD Primary Care Provider Allergies Active Allergy Reactions Criticality Noted Date Comments Amoxicillin-Pot Clavulanate Nausea and Vomiting 04/03/2006 Ibuprofen 09/27/2002 in large quantities- personality change Tazobactam GI Disturbance 11/29/2019 Tetracycline 09/28/2002 Medications Medication Sig Dispensed Refills Start Date End Date Status SENNA PO Take 1 tablet by mouth daily as needed 14 0 10/15/2007 Active celecoxib (CELEBREX) 200 MG capsule Take 200 mg by mouth 2 times daily At 0800 and 2000 Active lidocaine (LIDODERM) 5 % patch Place 1 patch onto the skin daily as needed To prevent lidocaine toxicity, patient should be patch free for 12 hrs daily. Active traMADol (ULTRAM) 50 MG tablet Take 50 mg by mouth 3 times daily as needed for severe pain Active acetaminophen (TYLENOL) 650 MG CR tablet Take 650-1,300 mg by mouth every 8 hours as needed for mild pain or fever Active oxybutynin ER (DITROPAN-XL) 10 MG 24 hr tablet Take 10 mg by mouth daily Active lisinopril-hydrochlo rothiazide (PRINZIDE/ZESTORETIC ) 20-12.5 MG tablet Take 1 tablet by mouth daily Active levothyroxine (SYNTHROID/LEVOTHROI D) 25 MCG tablet Take 25 mcg by mouth daily EDUARDA Synthroid Active simvastatin (ZOCOR) 10 MG tablet Take 10 mg by mouth At Bedtime Active buPROPion (WELLBUTRIN XL) 150 MG 24 hr tablet Take 300 mg by mouth every morning (Takes 2 x 150mg = 300mg) Active furosemide (LASIX) 20 MG tablet Take 20 mg by mouth daily as needed Active esomeprazole (NEXIUM) [address] capsule Take 20 mg by mouth daily as needed Active fish oil-omega-3 fatty acids 1000 MG capsule Take 1 g by mouth daily Active oxyCODONE (ROXICODONE) 5 MG tabletIndications:St atus post total replacement of left hip Take 1-2 tablets (5-10 mg) by mouth every 4 hours as needed for moderate to severe pain 60 tablet 11/30/2019 Active Active Problems Problem Noted Date Diagnosed Date S/P total hip arthroplasty 11/29/2019 HYPERLIPIDEMIA LDL GOAL <100 09/16/2010 RESTLESS LEG SYNDROME 10/31/2005 Primary localized osteoarthrosis, lower leg 09/17 Edema 09/28/2002 Overview: Multifactorial - venous insufficiency, has [place]. Depressive disorder, not elsewhere classified Esophageal reflux 09/28/2002 Mixed hyperlipidemia 09/28/2002 Sleep apnea 09/28/2002 Overview: Compliant with CPAP, has greatly improved symptoms. Problem list name updated by automated process. Provider to review Obesity 09/28/2002 Overview: Problem list name updated by automated process. Provider to review Immunizations Name Administration Dates Next Due HepB 01/15/2005,12/12/2004 Influenza (IIV3) PF 08/16/2009, 7,09/15/2006,09/08/2003,09/2002,11/24/2001 Mantoux Tuberculin Skin Test 02/21/2003 Pneumococcal 23 valent 09/05/1994 TD,PF 7+ (Tenivac) 01/24/2000 Social History Tobacco Use Types Packs/Day Years Used Date Smoking Tobacco: Never Smokeless Tobacco: Never Alcohol Use Standard Drinks/Week Comments Yes 0 (1 standard drink = 0.6 oz pur e alcohol) 2drinks a month Adolescent Education Answer Date Record ed Getting School Help Needed Not on file 08/31 Sex and Gender Information Value Date Recorded Sex Assigned at Not on file Gender Identity Not on file Sexual Orientation Not on file Last Filed Vital Signs Vital Sign Reading Time Taken Comments Blood Pressure 120/43 12/01/2019 9:50 AM [facility] Pulse 67 11/29/2019 6:00 PM [facility] Temperature 36.3 ??C (97.4 ??F) 12/01/2019 9:50 AM CS T Respiratory Rate 16 12/01/2019 9:50 AM [facility] Oxygen Saturation 96% 12/01/2019 9:50 AM [facility] Inhaled Oxygen Concentration - - Weight 108 kg (238 lb) 11/29/2019 8:06 AM [facility] Height 165.1 cm (5' 5) 11/29/2019 8:06 AM [facility] Body Mass Index 39.61 11/29/2019 8:06 AM [facility] Plan of Treatment Not on file Medical Devices Implanted Type Area Fiscal Clerk Device Identifier Shelf Expiration Date Model / Serial / Lot Imp Scr Zim 6.5x30mm Acet Cup Self Tap [id number] Implanted:Qty: 1 on 11/29/2019 by Tomas Eckert MD at [facility] Metallic Hardware/An chor Left: Hip [employer] 07/17/[id number]- 30 / / [id number] Imp Shell Biom G7 Acetab Pps Carrillo Hole 52mm Sz E [id number] Implanted:Qty: 1 on 11/29/2019 by Tomas Eckert MD at [facility] Total Joint Component/I nsert Left: Hip [employer] 06/25/2029 [id number] / / [id number] Imp Stem Fem Biom Taperloc Hi Offset Type 1 Sz9 [id number] Implanted:Qty: 1 on 11/29/2019 by Tomas Eckert MD at [facility] Total Joint Component/I nsert Left: Hip [employer] 03/23/2029 [id number] / / [id number] Acetabular Liner Neutral, 36mm Head Size, E Liner Size Implanted:Qty: 1 on 11/29/2019 by Tomas Eckert MD at [facility] Left: Hip [employer] 08/27/2024 [id number] / / [id number] [employer] Delta Hip System Modular Ceramic Head, Type 1 Taper, 36mm Head 0 Standard Neck Implanted:Qty: 1 on 11/29/2019 by Tomas Eckert MD at [facility] Left: Hip [employer] 03/22/2029 [id number] / / [id number] Procedures Procedure Name Priority Date/Time Associated Diagnosis Comments HCL TSH W/FREE T4 REFLEX Routine 09/15/2009 12:25 PM CDT Screening for Condition CL AFF A.M.A. LIPID PANEL Routine 09/15/2009 12:25 PM CDT Mixed Hyperlipidemia C DEXA, BONE DENSITY, AXIAL SKEL Routine 06/27/2005 DIAGNOSIS NOT YET DEFINED from Last 3 Months or Most Recently Relevant to Health Maintenance Results * TSH W/FREE T4 REFLEX (09/15/2009 12:25 PM CDT) TSH 4.59 0.4 - 5.0 mU/L [facility] 09/15/2009 12:2 5 PM CDT 09/15/2009 12:30 PM CDT Nader Garibay MD LABORATORY [facility] * (ABNORMAL) A.M.A. LIPID PANEL (09/15/2009 12:25 PM CDT) Cholesterol 197 0 - 200 mg/dL [facility] Comment: LDL Cholesterol is the primary guide to therapy: LDL-cholesterol goal in high risk patients is <100 mg/dL and in very high risk patients is <70 mg/dL. The NCEP recommends further evaluation of: patients with cholesterol <200 mg/dL if additional risk factors are present, cholesterol >240 mg/dL, triglycerides >150 mg/dL, or HDL <40 mg/dL. Triglycerides 150 0 - 150 mg/dL [facility] HDL Cholesterol 45(L) 50 - 110 mg/dL [facility] LDL Cholesterol Calculated 122 0 - 129 mg/dL [facility] VLDL-Cholesterol 30 0 - 30 mg/dL [facility] Cholesterol/HDL Ratio 4.4 0.0 - 5.0 [facility] 09/15/2009 12:2 5 PM CDT 09/15/2009 12:30 PM CDT Nader Garibay MD LABORATORY [facility] * DEXA, BONE DENSITY, AXIAL SKEL (06/27/2005) Anatomical Region Laterality Modality Other 06/27/2005 Isaac Efren Mason [facility] [place] DIES from Last 3 Months or Most Recently Relevant to Health Maintenance Care Teams Chocolatier Relationship Specialty Start Date End Date Diane Alejandra MD [facility] [address] [place] [address] PCP - General Internal Medicine 10/17/17
--- OUTSIDE RECORDS SUMMARY | 2024-04-16 12:30 | XMS_ITS | Encounter Summary ---
Author Organization [facility] Address [address] [place] [address] Care Team Providers Care Can Filling And Closing Machine Tender Name Role Phone Elsewhere, Pcp Primary Care Provider Unavailabl e Reason for Referral * Outpatient (Routine) - Authorized Specialty Diagnoses / Procedures Referred By Contac t Referred To Contact Nephrology and Hypertension Diagnoses Hypertensive Chronic Kidney Disease (CKD) Stage 3b Glomerular Filtration Rate (GFR) 30 To 44 Maddie Velásquez APRN, C.N.P., M.S. [address] [place] [phone] [facility] Referral ID Status Reason Start Date Expiration Date V isits Requested Visits Authorized [id number] Authorized 01/22/2024 07/23/2025 6 6 ERSMITH HELPER Reason for Visit * Reason Comments Chronic Kidney Disease Hypertension * Outpatient (Routine) - Authorized Specialty Diagnoses / Procedures Referred By Contac t Referred To Contact Nephrology and Hypertension Diagnoses Hypertensive Chronic Kidney Disease (CKD) Stage 3b Glomerular Filtration Rate (GFR) 30 To 44 Maddie Velásquez APRN, Kitty.N.P., M.S. [address] [place] [phone] [facility] Referral ID Status Reason Start Date Expiration Date V isits Requested Visits Authorized [id number] Authorized 10/21/2023 10/20/2026 6 6 Encounter Details Date Type Department Care Team (Latest Contact Info) Description 01/22/2024 1:45 PM COPPERSMITH HELPER Office Visit Division of Nephrology and Hypertension in [place], [place] [address] [place] [address] Maddie Velásquez APRN C.N.P., M.S. [address] [place] [address] Hypertensive Chronic Kidney Disease (CKD) Stage 3b Glomerular Filtration Rate (GFR) 30 To 44 (HCC) (Primary Dx) Social History Tobacco Use Types Packs/Day Years [...] often do you attend chur ch or baptist services? 1 to 4 times per year 03/10/2023 Do you belong to any clubs o r organizations such as voodoo groups, unions, fraternal or athletic groups, or [...] Answer Date Recorded PHQ-2 Score 3 03/22/2021 [facility] - Occupational Stress Questionnaire Answer Date Recorded [...] slept in a nursing home (including now)? No 03/10/2023 Depression Answer [...] Comments Blood Pressure 136/81 01/22/2024 1:35 PM COPPERSMITH HELPER Pulse - - Temperature - - Respiratory Rate - - Oxygen Saturation - - Inhaled Oxygen Concentration - - Weight 114 kg (251 lb 5.2 oz) 01/22/2024 1:35 PM COPPERSMITH HELPER Height - - Body Mass Index 44.04 06/12/2023 9:45 AM CDT documented in this encounter Progress Notes * Maddie Velásquez, RYANN, C.N.P., M.S. - 01/22/2024 1:45 PM CST SUBJECTIVE CHIEF COMPLAINT / REASON FOR VISIT Chief Complaint Patient presents with Chronic Kidney Disease Hypertension HISTORY OF PRESENT ILLNESS Ms. Yap is a 88 y.o. 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 She was seen in follow-up of chronic kidney disease stage 4 October 21, 2023 when creatinine was 1.8 and GFR was 27 mL/min. She presents for ongoing evaluation of chronic kidney disease. She reports great improvement in LE edema after OT treatments for lymphedema. She endorses urinary incontinence and perineal rash associated with the pads. She has not required any additional doses of torsemide for weight gain. She denies dyspnea, chest pain, chest pressure, syncope, presyncope, hematochezia or melena, dysuria or hematuria. Constitutional: Positive for fatigue. Skin: Positive for skin rash (perineal irritation r/t incontinence pads). Cardiovascular: Positive for swelling in the legs or feet. Gastrointestinal: Positive for constipation. The following systems were negative: Respiratory, Genitourinary OBJECTIVE Vitals: 01/22/24 1335 BP: 136/81 PainSc: 0-No pain PHYSICAL EXAMINATION Constitutional General: She is not in acute distress. Cardiovascular Comments: BLE compression wraps are in place Pulmonary Effort: Pulmonary effort is normal. Skin General: Skin is warm and dry. Neurological Mental Status: She is alert. Psychiatric Mood and Affect: Mood normal. Behavior: Behavior normal. ASSESSMENT / PLAN #1 Chronic kidney disease (CKD) stage 3B, secondary to NSAID use and atrophic left kidney I am very pleased to report that her kidney function appears stable overall with creatinine in baseline range at 1.6 and GFR is 31 mL/min. Electrolytes are satisfactory. CKD follow up 4 months. #2 CKD treatment options Management of chronic kidney disease will include slowing the progression of renal disease with adequate blood pressure, adequate hydration, glycemic control, avoidance of any nephrotoxic medicationsand adjusting drug doses for level of estimated glomerular filtration rate (eGFR). She will meet with my colleague and kidney health care law specialist, Juan Carlos Finney RN for CKD pathways educationand planning. KFRE 2-Year: 2.3% at 09/25/2023 12:00 AM Calculated from: Serum Creatinine: 1.8 mg/dL at 09/25/2023 12:00 AM Urine Albumin Creatinine Ratio: 43 mg/g at 06/12/2023 8:33 AM Age: 87 years Sex: Female at 09/25/2023 12:00 AM Has CKD-3 to CKD-5: Yes KFRE 5-Year: 6.9% at 09/25/2023 12:00 AM Calculated from: Serum Creatinine: 1.8 mg/dL at 09/25/2023 12:00 AM Urine Albumin Creatinine Ratio: 43 mg/g at 06/12/2023 8:33 AM Age: 87 years Sex: Female at 09/25/2023 12:00 AM Has CKD-3 to CKD-5: Yes #3 Hypertension Good control. ACR is pending. She has historically minimal to moderate albumin/creatinine ratio. She continues dapagliflozin 10 mg daily. No changes. Anti-Hypertensives lisinopriL (PRINIVIL,ZESTRIL) 20 mg tablet Take 1 tablet (20 mg total) by mouth daily. torsemide (DEMADEX) 10 mg tablet Take 1 tablet (10 mg total) by mouth daily. Take an additional 10 mg tablet daily for weight gain of 3 lbs overnight or 5 lbs over 1 week #4 Anemia Screening Hemoglobin is stable and remains at goal. #5 Hyperparathyroidism, renal secondary PTH is not available for review. Calcium and phosphorus are in desired range. #6 Metabolic acidosis screening Bicarbonate is at goal without oral sodium bicarbonate replacement. I spent a total of 20 minutes on the care for this patient today. This included reviewing labs, prior notes, time with the patient, placing new orders, and documenting in the medical history. ERSMITH HELPER documented in this encounter Plan of Treatment Upcoming Encounters Date Type Department Care Team (Late st Contact Info) Description 05/25/2024 12:00 PM CDT Appointment Department of Laboratory Medicine and Pathology, [place], [place] [address] [place] [phone] Maddie Velásquez APRN, Kitty.N.P., M.S. [address] [place] [phone] 05/25/2024 12:10 PM CDT Appointment Department of Laboratory Medicine and Pathology, [place], [place] [address] [place] [phone] Maddie Velásquez APRN, C.NSharonP., M.S. [address] [place] [phone] 05/25/2024 3:15 PM CDT Office Visit Division of Nephrology and Hypertension in [place], [place] [address] [place] [address] Maddie Velásquez APRN C.N.P., M.S. [address] [place] [address] Scheduled Orders Name Type Priority Associated Diagnoses Orde r Schedule CBC without Differential Lab Routine Hypertensive Chronic Kidney Disease (CKD) Stage 3b Glomerular Filtration Rate (GFR) 30 To 44 (HCC) Expected: 05/23/2024, Expires: 04/22/2025 Renal Function Panel Lab Routine Hypertensive Chronic Kidney Disease (CKD) Stage 3b Glomerular Filtration Rate (GFR) 30 To 44 (HCC) Expected: 05/23/2024, Expires: 04/22/2025 Parathyroid Hormone (PTH) Lab Routine Hypertensive Chronic Kidney Disease (CKD) Stage 3b Glomerular Filtration Rate (GFR) 30 To 44 (HCC) Expected: 05/23/2024, Expires: 04/22/2025 Urinalysis, with Microscopic: Urine, Midstream Lab Routine Hypertensive Chronic Kidney Disease (CKD) Stage 3b Glomerular Filtration Rate (GFR) 30 To 44 (HCC) Expected: 05/23/2024, Expires: 04/22/2025 Albumin, Random, Urine Lab Routine Hypertensive Chronic Kidney Disease (CKD) Stage 3b Glomerular Filtration Rate (GFR) 30 To 44 (HCC) Expected: 05/23/2024, Expires: 04/22/2025 Scheduled Referrals Name Type Priority Associated Diagnoses Order Schedule Nephrology and Hypertension office visit (clinic) Outpatient Referral Routine Hypertensive Chronic Kidney Disease (CKD) Stage 3b Glomerular Filtration Rate (GFR) 30 To 44 (HCC) Expected: 05/23/2024, Expires: 04/22/2025 documented as of this encounter Procedures Procedure Name Priority Date/Time Associated Diagnosis Comments EXTM RENAL FUNCTION PANEL, S Routine 01/10/2024 EXTP URINALYSIS WITH MICROSCOPY, URINE Routine 01/10/2024 EXTP COMPLETE BLOOD COUNT, BLOOD Routine 01/10/2024 documented in this encounter Results * EXT Complete Blood Count, Blood (01/10/2024) [facility] EXT Hemoglobin 12.5 12 - 16 [facility] EXT Hematocrit 40.4 33 - 51 [facility] EXT Leukocytes 5.56 4.5 - 11 [facility] EXT Platelet Count 209 140 - 440 [facility] Blood (Blood, Venous) 01/10/2024 Historical Provider LAB BLOOD NON ADD-ON Performing Organization Address City/[facility]/ZIP Co de Phone Number [facility] [address] [phone] * (ABNORMAL) EXT Renal Function Panel (01/10/2024) [facility] EXT BUN (Blood Urea Nitrogen) 43(A) 7 - 30 [facility] EXT Calcium, Total 9.9 8.4 - 10.6 [facility] EXT Creatinine, S 1.6(A) 0.5 - 1.5 [facility] EXT Glucose, S 108 60 - 115 [facility] EXT Bicarbonate, S 28 20 - 32 [facility] EXT Potassium 4.5 3.6 - 5.1 [facility] EXT Sodium 142 135 - 149 mmol/L [facility] EXT Albumin 4.3 3.3 - 5.0 g/dL [facility] EXT Phosphorus (Inorganic), S 3.8(A) 15 - 65 [facility] EXT Estimated GFR (eGFR) 31 [facility] Blood (Blood, Venous) 01/10/2024 Historical Provider LAB BLOOD ADD-ON Performing Organization Address City/[facility]/ZIP Co de Phone Number [facility] [address] [place] [address], [facility] [phone] * (ABNORMAL) EXT Urinalysis with Microscopy, Urine (01/10/2024) [facility] EXT Appearance, Urine clear [facility] EXT Glucose Qualitative, Urine Trace(A) Negative [facility] EXT Ketones, POCT, Urine Negative Negative [facility] EXT Blood, Urine Negative Negative [facility] EXT Protein, Urine neg [facility] EXT Nitrite, Urine Negative Negative [facility] EXT Bilirubin, Urine Negative Negative, None detected [facility] EXT Specific [place], POCT, Urine 1.015 [facility] EXT pH, Random, Urine 5.5 [facility] EXT Leukocyte Esterase, Urine 1+(A) Negative [facility] Urine (Urine, Voided) 01/10/2024 Historical Provider LAB URINE ORDERABLES [facility] [address] [phone] documented in this encounter Visit Diagnoses Diagnosis Hypertensive Chronic Kidney Disease (CKD) Stage 3b Glomerular Filtration Rate (GFR) 30 To 44- Primary documented in this encounter Additional Health Concerns Assessment Noted Time PHQ-9 Depression Total Score: 15 03/22/ 021 12:16 PM CDT documented as of this encounter Care Teams Can Filling And Closing Machine Tender Relationship Specialty Start Date End Date Elsewhere, Pcp PCP - General Internal Medicine 03/26/22 documented as of this encounter
--- OUTSIDE RECORDS SUMMARY | 2024-04-16 12:30 | XMS_ITS | Encounter Summary ---
Author Organization [facility] Address [address] [place] [address] Care Team Providers Care Storm Chaser Name Role Phone Elsewhere, Pcp Primary Care Provider Unavailabl e Reason for Visit * Reason Comments Med Question Priority 3 Encounter Details Date Type Department Care Team (Late st Contact Info) Description 03/31/2024 Refill Division of Nephrology and Hypertension in [place], [place] [address] [place] [phone] Maddie Velásquez, RYANN, C.N.P., M.S. [address] [place] [phone] Med Question (Priority 3) Social History Tobacco Use Types Packs/Day Years [...] week 03/10/2023 How often do you attend [facility] or [facility]aism services? 1 to 4 times per year 03/10/2023 Do you belong to any clubs o r organizations such as druze groups, unions, fraternal or athletic groups, or [...] Answer Date Recorded PHQ-2 Score 3 03/22/2021 [facility] [place] [facility] - [...] or slept in a detention (including now)? No 03/10/2023 Depression Answer Date [...] encounter Miscellaneous Notes * Telephone Encounter - Diane Leal M.S.N., R.N. - 04/06/2024 3:25 PM CDT SUBJECTIVE CHIEF COMPLAINT / REASON FOR CALL Med Question (Priority 3) Information Discussed Per Joseline Bergman it is recommended patient follow up with her primary care provider as we do not want to delay her cares. Cold feelings in her legs and arms could cause by a variety of reasons. Patient also stating that she has generalize pain in her body, symptoms of low blood sugar even though she eats 3 meals a day getting approximately 2000 calories per day. Per Joseline Bergman patient can try to stop Farxiga for 1 week to see if these sensations improve or not and let us know by returning a call to the report back. PLAN Disposition/Recommendation: recommended continue engagement in self-management activities, patient will call primary care provider to schedule a visit. Information/Education: patient/caller able to teach back Caller agreeable to plan of care: yes The following references were used: nursing clinical judgement and provider Joseline Bergman * Telephone Encounter - Cleo Reno R.N. - 04/05/2024 3:07 PM CDT Attempted to call, unable to leave message. Will try again at another time. * Telephone Encounter - Cleo Reno R.N. - 03/31/2024 3:02 PM CDT SUBJECTIVE CHIEF COMPLAINT / REASON FOR CALL Med Question (Priority 3) Information Discussed I contacted the patient to review her symptoms. She states that for the past 5-6 months she has noticed a cold feeling in her legs and arms. She states the symptoms start in the afternoon about 3-4 hours after lunch, and this occurs about 3-4 times per week. She denies fevers or other symptoms other than some pain in her legs. She states she does have arthritis and sees a physical therapist locally. She states she noticed these symptoms around the time she started Farxiga. She wonders if it might be related to low blood sugars from taking the Farxiga. She states she is not on insulin or otheroral diabetic agents. She states she has tried to check her blood sugar with her husbands glucometer, but is not able to obtain enough blood sample to test. She wonders if there may be any additionaltests that can be done to determine the cause of her symptoms. PLAN Disposition/Recommendation: I encouraged the patient to discuss with her primary care provider, basilhe patient states she is not confident that her primary care provider will refer her for additional tests. She states she is pleased with her care here at [facility] and would like to see someone perhaps when she returns to the CKD Clinic in May. I will update our CKD providers with this information and contact the patient with any additional recommendations. Information/Education: patient/caller able to teach back Caller agreeable to plan of care: yes The following references were used: nursing clinical judgement documented in this encounter Plan of Treatment Upcoming Encounters Date Type Department Care Team (Late st Contact Info) Description 05/25/2024 12:00 PM CDT Appointment Department of Laboratory Medicine and Pathology, [facility] in [place], [place] [address] [place] [phone] Maddie Velásquez APRN, C.N.P., M.S. [address] [place] [phone] 05/25/2024 12:10 PM CDT Appointment Department of Laboratory Medicine and Pathology, [facility] in [place], [place] [address] [place] [phone] Maddie Velásquez APRN, C.N.P., M.S. [address] [place] [phone] 05/25/2024 3:15 PM CDT Office Visit Division of Nephrology and Hypertension in [address] [phone] Maddie Velásquez APRN, C.N.P., M.S. [address] [place] [phone] documented as of this encounter Visit Diagnoses Not on filedocumented in this encounter Additional Health Concerns Assessment Noted Time PHQ-9 Depression Total Score: 15 021 12:16 PM CDT documented as of this encounter Care Teams Storm Chaser Relationship Specialty Start Date End Date Elsewhere, Pcp PCP - General Internal Medicine 03/26/22 documented as of this encounter
--- OUTSIDE RECORDS SUMMARY | 2024-04-16 12:30 | XMS_ITS | Encounter Summary ---
Author Organization [facility] Address [address] [place] [address]. [place] [address] Care Team Providers Care Slagger Name Role Phone Nader Garibay MD Primary Care Provider [phone] Diane Alejandra MD Primary Care Provider Encounter Details Date Type Department Care Team (Late st Contact Info) Description 09/29/[address] [phone] Ceferino Ortiz MD NO INFO AVAILABLE Social History Tobacco Use Types Packs/Day Years Used Date Smoking Tobacco: Never Smokeless Tobacco: Never Alcohol Use Standard Drinks/Week Comments Yes 0 (1 standard drink = 0.6 oz pur e alcohol) 2drinks a month Sex and Gender Information Value Date Recorded Sex Assigned at Not on file Gender Identity Not on file Sexual Orientation Not on file documented as of this encounter Progress Notes * 09/29/2002 11:59 PM CSTAddended by: CEFERINO ORTIZ) on: 10/06/2002,8:29 AM Modules accepted: Progress Notes Addended by : CALI FELIPE on: 10/05/2002,2:15 PM Modules accepted: Progress Notes Addended by: CEFERINO ORTIZ) on: 10/01/2002,3:14 PM Modules accepted: Progress Notes Addended by: GAEL DEL CASTILLO on: 2,2:51 PM Modules accepted: Progress Notes 00:00 History And Physical-[facility] CEFERINO ORTIZ () [Entered: 00:00 Schedule Clerk ([facility])] : 39 CHIEF COMPLAINT: Post menopausal vaginal [...] and the ovaries were not seen. Th e patient has discontinued all hormone. I saw the patient on 05/26/02 and recommended she have a frac tional dilation and curettage, and that was scheduled for 06/10/02 at [facility]. The p zaki called on 05/31/02 and stated that she would be leaving [facility] and asked if it would be okay to p juanapone her surgery until September. We recommended that she not do this, but the patient left and ca lled us upon her return to [facility]. She is now being admitted to the hospital for a fractional dilation and curettage and a diagnostic hysteroscopy. Since she was seen in May, she states that she has sims d some intermittent spotting and about 10 days ago had some vaginal bleeding. PAST OB HISTORY: Cesa rean section in 1963, repeat section in 1965, spontaneous with a D&C in 1966. PAST [...] ORTIZ MD T: 09/2002 17:25 MT: Document: [id number] [place], [place] Name: VIELKA FOSTER HISTORY AND PHYSICAL Page 2 of 2 LCN: SDS DSC: 09/29/2002 [place], [place] Name: MR#: : Admit Date: ANASTASIA SNYDERENE Jocelyn -[phone] Doctor: CEFERINO ORTIZ MD HISTORY AND PHYSICAL Page 1 of 2 Electronically filed by Tiffanie Del Castillo 10/01/2002 2:51 PM 00:00 Operative Report-[facility] CEFERINO ORTIZ () [Entered: 00:00 Schedule Clerk ([facility])] : 39 1st ASS'T: 2nd ASS'T: PRE-OPERATIV E DIAGNOSIS: Postmenopausal vaginal bleeding. POST-OPERATIVE DIAGNOSIS: Postmenopausal vaginal ble eding. OPERATION: Fractional dilation and curettage; diagnostic hysteroscopy. ANESTHESIA: General . PROCEDURE: Vielka Snyder was taken to the operating room with an I.V. running in the [facility]. She was placed on the operating table [...] home. [id number] CEFERINO ORTIZ MD MT: Document: [id number] [place], [place] Name: VIELKA SNYDER OPERATIVE REPORT Page 2 of 2 LCN : MS2 DSC: 09/30/2002 [place], [place] Name: MR#: : Procedure Vitor e: VIELKA SNYDER [id number] 09/29/2002 Doctor: CEFERINO ORTIZ MD OPERATIVE REPO RT Page 1 of 2 Electronically filed by Cali Felipe 10/05/2002 2:15 PM documented in this encounter Plan of Treatment Not on file documented as of this encounter Visit Diagnoses Not on filedocumented in this encounter Care Teams Slagger Relationship Specialty Start Date End Date Nader Garibay MD PCP - General 01/01/02 10/16/17 Diane Alejandra MD [facility] [place] [address] PCP - General Internal Medicine 10/17/17 documented as of this encounter
--- OUTSIDE RECORDS SUMMARY | 2024-04-16 12:30 | XMS_ITS | Encounter Summary ---
Author Organization [facility] Address [address] [place] [address]. [place] [address] Care Team Providers Care Paper Tester Name Role Phone Nader Garibay MD Primary Care Provider [phone]- [phone] Diane Alejandra MD Primary Care Provider [phone] Encounter Details Date Type Department Care Team (Late st Contact Info) Description 07/08/[address] [phone] Isaac Mason Social History Tobacco Use Types Packs/Day Years Used Date Smoking Tobacco: Never Assessed Sex and Gender Information Value Date Recorded Sex Assigned at Not on file Gender Identity Not on file Sexual Orientation Not on file documented as of this encounter Plan of Treatment Not on file documented as of this encounter Visit Diagnoses Not on filedocumented in this encounter Care Teams Paper Tester Relationship Specialty Start Date End Date Nader Garibay MD PCP - General 01/01/02 10/16/17 Diane Alejandra MD [facility] [address] [address] PCP - General Internal Medicine 10/17/17 documented as of this encounter
--- OUTSIDE RECORDS SUMMARY | 2024-04-16 12:30 | XMS_ITS | Clinical Summary ---
Author Organization [facility] Address [address] [place] [id number] Care Team Providers Care Senior Nurse Manager Name Role Phone Diane Alejandra MD Primary [...] 23 valent 09/05/1994 TD,PF 7+ (Tenivac) 01/24/2000 Family History Medical History Relation Comments Cancer Father D ; AGE 59 LUNG CANCER Cerebrovascular Disease Mother D ; AGE 88 Heart Disease Paternal Grandfather [place] Cancer Paternal Grandmother OVARIAN Cancer Sister 1 [...] Comments Blood Pressure 120/43 12/01/2019 9:50 AM HOOD FITTER Pulse 67 11/29/2019 6:00 PM HOOD FITTER Temperature 36.3 ??C (97.4 ??F) 12/01/2019 9:50 AM CS T Respiratory Rate 16 12/01/2019 9:50 AM HOOD FITTER Oxygen Saturation 96% 12/01/2019 9:50 AM HOOD FITTER Inhaled Oxygen Concentration - - Weight 108 kg (238 lb) 11/29/2019 8:06 AM HOOD FITTER Height 165.1 cm (5' 5) 11/29/2019 8:06 AM HOOD FITTER Body Mass Index 39.61 11/29/2019 8:06 AM HOOD FITTER Plan of Treatment Health Maintenance Due Date Last Done Comments ADVANCE CARE PLANNING 1937 ANNUAL REVIEW OF HM ORDERS 1937 RSV VACCINE ( & 60+) (1 - 1-dose 60+ series) 1997 FALL RISK ASSESSMENT 2002 MEDICARE ANNUAL WELLNESS VISIT 01/08/2007 01/08/2006, 05/27/2003 LIPID 09/15/2010 09/15/2009, 03/17, 03/31/2007, Additional history exists TSH W/FREE T4 REFLEX 09/15/2010 09/15/2009, 07/01/2007, 08/15/2006, Additional history exists DEXA 06/27/2020 06/27/2005 COVID-19 Vaccine ( season) 2023 09/12/2021, 02/17/2021, 01/27/2021 PHQ-2 (once per calendar year) 2023 INFLUENZA VACCINE (Season Ended) 2024 08/27/2022, 09/14/2021, 08/17/2020, Additional history exists DTAP/TDAP/TD IMMUNIZATION (2 - Td or Tdap) 11/19/2026 11/19/2016, 08/10/2010, 08/10/2010, Additional history exists Pneumococcal Vaccine: 65+ Years Completed 09/29/2015, 08/10/2010, 09/05/1994 ZOSTER IMMUNIZATION Completed 10/29/2018, 08/20/2018, 08/13/2012 HPV IMMUNIZATION Aged Out No longer e ligible based on patient's age to complete this topic IPV IMMUNIZATION Aged Out No longer e ligible based on patient's age to complete this topic MENINGITIS IMMUNIZATION Aged Out No l onger eligible based on patient's age to complete this topic RSV MONOCLONAL ANTIBODY Aged Out No l onger eligible based on patient's age to complete this topic Medical Devices Implanted Type Area Ware Dresser Device Identifier Shelf Expiration Date Model / Serial / Lot Imp Scr Zim 6.5x30mm Acet Cup Self Tap [id number] Implanted:Qty: 1 on 11/29/2019 by Tomas Eckert MD at [facility] Metallic Hardware/An chor Left: Hip [employer] 07/17/2029 [id number] / / [id number] Imp Shell Biom G7 Acetab Pps Carrillo Hole 52mm E [id number] Implanted:Qty: 1 on 11/29/2019 by Tomas Eckert MD at [facility] Total Joint Component/I nsert Left: Hip [employer] 06/25/2029 [id number] / / [id number] Imp Stem Fem Biom Taperloc Hi Offset Type 1 [id number] Implanted:Qty: 1 on 11/29/2019 by Tomas Eckert MD at [facility] Total Joint Component/I nsert Left: Hip [employer] 03/23/2029 [id number] / / [id number] Acetabular Liner Neutral, 36mm Head Size, E Liner Size Implanted:Qty: 1 on 11/29/2019 by Tomas Eckert MD at [facility] Left: Hip [employer] 08/27/2024 [id number] / / [id number] Biolox Delta Hip System Modular Ceramic Head, Type 1 Taper, 36mm Head 0 Standard Neck Implanted:Qty: 1 on 11/29/2019 by Tomas Eckert MD at [facility] Left: Hip [employer] 03/22/2029 [id number] / / [id number] Procedures Procedure Name Priority Date/Time Associated Diagnosis [...] CDT) TSH 4.59 0.4 - 5.0 mU/L [facility] 09/15/2009 12:2 5 PM CDT 09/15/2009 12:30 PM CDT Nader Garibay MD LABORATORY [facility] * (ABNORMAL) A.M.A. LIPID PANEL (09/15/2009 12:25 PM CDT) Cholesterol 197 0 - 200 mg/dL [facility] Comment: LDL Cholesterol is the primary guide to therapy: LDL-cholesterol goal in high risk patients is <100 mg/dL and in very high risk patients is <70 mg/dL. The NCEP recommends further evaluation of: patients with cholesterol <200 mg/dL if additional risk factors are present, cholesterol >240 mg/dL, triglycerides >150 mg/dL, or HDL <40 mg/dL. Triglycerides 150 0 - 150 mg/dL [facility] HDL Cholesterol 45(L) 50 - 110 mg/dL [facility] LDL Cholesterol Calculated 122 0 - 129 mg/dL [facility] VLDL-Cholesterol 30 0 - 30 mg/dL [facility] Cholesterol/HDL Ratio 4.4 0.0 - 5.0 [facility] 09/15/2009 12:2 5 PM CDT 09/15/2009 12:30 PM CDT Nader Garibay MD LABORATORY [facility] * DEXA, BONE DENSITY, AXIAL SKEL (06/27/2005) Anatomical Region Laterality Modality Other 06/27/2005 [facility] DIES from Last 3 Months or Most Recently Relevant to Health Maintenance Care Teams Senior Nurse Manager Relationship Specialty Start Date End Date Diane Alejandra MD [facility] [address] [place] [address] PCP - General Internal Medicine 10/17/17
--- OUTSIDE RECORDS SUMMARY | 2024-04-16 12:30 | XMS_ITS ---
Author Organization [facility] Address [address] [place] [address] Care Team Providers Care Inspector Receiving Name Role Phone Unavailable Unavailable Unavailable Surgery Details Not on file Complications Check Surgery Details section. Procedure Estimated Blood Loss Check Surgery Details section. Procedure Findings Check Surgery Details section. Procedure Specimens Taken Check Surgery Details section.
--- OUTSIDE RECORDS SUMMARY | 2024-04-16 12:30 | XMS_ITS | Encounter Summary ---
Author Organization [facility] Address [address] [place] [address]. [place] [address] Care Team Providers Care Aquatics Director Name Role Phone Diane Alejandra MD Primary Care Provider [phone] Encounter Details Date Type Department Care Team (Late st Contact Info) Description 11/22/2019 Orders Only [facility] [address] [place] [id number] Tomas Eckert MD [facility] [address] [place] [address] [phone] Pre-operative laboratory examination (Primary Dx) Social History Tobacco Use Types Packs/Day Years Used Date Smoking Tobacco: Never Alcohol Use Standard Drinks/Week Comments Yes 0 (1 standard drink = 0.6 oz pur e alcohol) SELDOM Sex and Gender Information Value Date Recorded Sex Assigned at Not on file Gender Identity Not on file Sexual Orientation Not on file documented as of this encounter Plan of Treatment Not on file documented as of this encounter Results * Methicillin Resist/Sens S. aureus PCR (11/22/2019 9:00 AM SAWMILL WORKER) Specimen Description Nares 11/22/2019 3:59 PM SAWMILL WORKER [facility] Methicillin Resist/Sens S. aureus PCR Negative NEG^Negat lilia 11/22/2019 11:25 PM SAWMILL WORKER [facility] Comment: MRSA Negative: SA Negative ??MRSA and Staphylococcus aureus target DNA not detected, presumed negative for MRSA and SA colonization or the number of bacteria present may be below the limit of detection for the assay. FDA approved assay performed using Cepheid GeneXpert(R) real-time PCR. Nasal structure (body structure) 11/22/2019 9:00 AM SAWMILL WORKER 11/22/2019 4:01 PM SAWMILL WORKER Tomas Eckert MD LAB - MICRO GENERAL ORDERABLES [id number] [place] [address] [place], [place] [phone] [place] [address] documented in this encounter Visit Diagnoses Diagnosis Pre-operative laboratory examination- Primary Pre-procedural laboratory examination documented in this encounter Care Teams Aquatics Director Relationship Specialty Start Date End Date Diane Alejandra MD [address] [address] PCP - General Internal Medicine 10/17/17 documented as of this encounter
[2024-04-16 12:57] LABS: Basophils Absolute Auto 0.02 K/uL (0.00-0.30); Basophils Percent Auto 0.3 % (0.0-3.0); Eosinophils Absolute Auto 0.15 K/uL (0.00-0.50); Eosinophils Percent Auto 2.1 % (0.0-7.0); Hematocrit 37.9 % (33.0-51.0); Hemoglobin* 12.4 gm/dL (12.0-16.0); Immature Granulocytes Abs Auto 0.07 K/uL (0.00-0.30); Lymphocytes Percent Auto 17.9 % (20-44); Mean Corpuscular HGB Conc 33 gm/dL (32-36); Mean Corpuscular Hemoglobin 30 pg (26-34); Mean Corpuscular Volume 91 fL (80-100); Monocytes Percent Auto 6.8 % (0.0-11.0); Neutrophils Absolute Auto 5.05 K/uL (1.7-7.0); Neutrophils Percent Auto 71.9 % (42.0-72.0); Platelet Count* 173 K/uL (140-440); RDW Coefficient of Variation % 13.6 % (11.5-15.5); Red Blood Count 4.19 m/uL (4.00-5.20); White Blood Count* 7.03 K/uL (4.50-11.00)
[2024-04-16 12:59] LABS: Slide Review Reflex No
[2024-04-16 13:27] LABS: Albumin* 4.2 g/dL (3.3-5.0)
[2024-04-16 13:29] LABS: Aspartate Amino Transferase* 27 U/L (12-35); Bilirubin Direct* 0.4 mg/dL (0.0-0.5); Bilirubin Total* 0.5 mg/dL (0.1-1.5); Total Protein* 6.9 g/dL (6.0-8.3)
[2024-04-16 13:30] LABS: Alanine Aminotransferase* 25 U/L (4-35); Alkaline Phosphatase* 66 U/L (40-150); Magnesium* 2.1 mg/dL (1.5-2.6)
[2024-04-16 13:41] LABS: NT Pro B Type NatriureticPept* 104 pg/mL
[2024-04-16 13:43] LABS: Chloride* 107 mmol/L (96-114); Potassium* 5.1 mmol/L (3.6-5.1); Sodium* 138 mmol/L (135-149)
[2024-04-16 13:45] LABS: Creatinine* 1.4 mg/dL (0.5-1.5); Est. Creatinine Clearance* 25.96; Estimated Glomerular Filt Rate 37 ml/min
[2024-04-16 13:46] LABS: Anion Gap 7 mEq/L (7-15); Blood Urea Nitrogen* 51 mg/dL (7-30); Carbon Dioxide* 24 mmol/L (20-32); Glucose* 88 mg/dL (60-115)
[2024-04-16 13:47] LABS: Calcium* 9.3 mg/dL (8.4-10.6)
[2024-04-16 13:49] LABS: C Reactive Protein* 0.6 mg/dL (0.5-1.0)
== END 2024-04-16 14:15 | disposition home or self-care (01) ==
PROVIDERS: Emergency Provider Emergency Medicine; PCP Internal Medicine
DX: M79.605 Pain in left leg (principal)
CPT/HCPCS: 36415; 80048; 80076; 83735; 83880; 84443; 85025; 86140; 93971; 99283; 99284

== ENCOUNTER 2024-10-18 10:30 | Outpatient (CLI) | payer MEDICARE, BC, SELFPAY ==
--- OUTSIDE RECORDS SUMMARY | 2024-10-21 05:13 | XMS_ITS | Clinical Summary ---
Author Organization [facility] Address [address] [place] [address] Care Team Providers Care Head Start Teacher Name Role Phone Elsewhere, Pcp Primary Care Provider Unavailabl e Source Comments Patient records contain information from all sites at [facility]. For routine questions regarding patient records, call [phone] during business hours, M-F 8:00 AM - 5:00 PM Central Time. Record requests for emergency care only can be directed to [phone] at any time.[facility] Allergies Active Allergy Reactions Criticality Noted Date Comments Amoxicillin-Pot Clavulanate Nausea And Vomiting 04/03/2006 Furosemide Rash 02/11/2023 Ibuprofen Other (see comments) 09/27/2002 in large quantities- personality change Tazobactam Nausea Only 11/29/2019 Tetracycline Other (see comments) 09/28/2002 Yeast infection Medications buPROPion XL (WELLBUTRIN XL) 300 mg 24 hr tablet Take 300 mg by mouth daily. Active esomeprazole (NexIUM) [address] capsule Take 20 mg by mouth as needed. Hardly ever Active levothyroxine (SYNTHROID, LEVOTHROID) 25 mcg tablet Take 25 mcg by mouth daily. Active sennosides (SENNA LAX ORAL) Take 1 tablet by mouth as needed. 7 Active ZINC ACETATE ORAL Take 50 mg by mouth daily. Active collagen, hydrolysate, bovine, (collagen, hydr, bovine,, bulk,) 100 % powder daily. Active coenzyme Q10 (CO Q-10) 200 mg capsule Take 200 mg by mouth as needed. Active UNABLE TO FIND as needed. Nopalea juice - 1 shot daily Active simvastatin (ZOCOR) 20 mg tablet Take 20 mg by mouth every other day. 1 Active UNABLE TO FIND 2 (two) times [...] fruit extract Active torsemide (DEMADEX) 10 mg tabletIndicatio ns:Hypertensive Chronic Kidney Disease (CKD) Stage 3b Glomerular Filtration Rate (GFR) 30 To 44 Take 1 tablet (10 mg total) by mouth daily. Take an additional 10 mg tablet daily for weight gain of 3 lbs overnight or 5 lbs over 1 week 90 tablet 3 4 025 Active allopurinoL (ZYLOPRIM) 100 mg tabletIndicatio ns:Hypertensive Chronic Kidney Disease (CKD) Stage 3b Glomerular Filtration Rate (GFR) 30 To 44 Take 0.5 tablets (50 mg total) by mouth daily. 45 tablet 3 4 Active DME CPAPIndications :Obstructive Sleep Apnea Adult DME Order 1 each 4 Active lisinopriL 20 mg tabletIndicatio ns:Hypertensive Chronic Kidney Disease (CKD) Stage 3b Glomerular Filtration Rate (GFR) 30 To 44 Take 1 tablet (20 mg total) by mouth daily. 90 tablet 3 4 025 Active dapagliflozin propanediol (Farxiga) 10 mg tabletIndicatio ns:Chronic Kidney Disease (CKD), Stage 3b Glomerular Filtration Rate (GFR) 30 To 44 (HCC) Take 1 tablet (10 mg total) by mouth daily. 90 tablet 3 4 Active dapagliflozin propanediol (Farxiga) 10 mg tabletIndicatio ns:Hypertensive Chronic Kidney Disease (CKD) Stage 3b Glomerular Filtration Rate (GFR) 30 To 44 Take 1 tablet (10 mg total) by mouth daily. 90 tablet 3 4 024 Discontin ued(Reord er) Active Problems Problem Noted Date Diagnosed Date Cold Intolerance 03/28/2022 Lesion Skin 05/11/2021 Chronic Kidney Disease Stage 4 Glomerular Filtration Rate 15-29 05/10/2021 Other Specified Heart Block 05/10/2021 Incompetence Chronotropic 05/10/2021 Incontinence Urinary 03/26/2021 Edema Leg 03/22/2021 Hypertensive Chronic Kidney Disease With Stage 1 Through Stage 4 Chronic Kidney Disease, Or Unspecified Chronic Kidney Disease 03/22/2021 Thrombosis Deep Vein Personal History 03/22/2021 Dyspnea On Exertion 03/22/2021 Morbid Obesity Body Mass Index 40.0-44.9 Adult 0 03/22/2021 Obstructive Sleep Apnea Adult 03/22/2021 History Of Falling 03/22/2021 Hyperlipidemia On Treatment Hypertension Personal History Resolved Problems Problem Noted Date Diagnosed Date Resolved Date Dysuria 03/26/2021 03/31/2021 Encounters Date Type Department Care Team Description 10/06/2024 Refill Division of Nephrology and Hypertension in [place], [place] [address] [place] [address] Maddie Velásquez APRN, C.N.P., M.S. Med Refill (Priority 2) from Last 3 Months Immunizations Name Administration Dates Next Due H1N1 All Forms 11/14/2009 HZV (ZOSTAVAX) 08/13/2012 HepB, Unspecified 01/15/2005,12/12/2004 Influenza TIV (IM) 08/16/2009, 7,09/15/2006,2002,09/27/2002,11/24/2001 Influenza high dose QV(65 ye ars or older) (PF) 08/27/2022 Influenza, Seasonal, Injectable 08/13/20 12,09/16/2007,09/15/2006,2002,09/27/2002 Influenza, Unspecified 08/17/2020,08/20/2013 PCV13 09/29/2015 PPD Test 02/21/2003 PPSV23 08/10/2010,09/05/1994 RZV (SHINGRIX) 10/29/2018,08/20/2018 SARS-COV-2 (COVID-19) - PFIZ ER (Discontinued)(12 years or older) 09/12/2021,02/17/2021,01/27/2021 Td Preservative Free (TENIVA C, DECAVAC) 08/10/2010,01/24/2000 Tdap 11/19/2016 influenza trivalent high dos e (HD)(PF) 08/25/2019,08/15/2018,07/31/2017,2015 influenza trivalent vaccine (6 months and older)(PF) 07/14/2010 influenza vaccine quad (FLUZONE/FLUARIX) (6 months and older)(PF) 09/12/2021 Family History Medical History Relation Name Comments Lung cancer Father josias rtesch Stroke Mother chuckie romeo Ovarian cancer Sister 1 pat milan Kidney cancer Sister 2 [facility] kidney rem sherice Ovarian cancer Sister 2 allen cohen Ovarian cancer Sister 3 [facility] Relation Name Status Comments Father edmayra rtesch Mother chuckie romeo Sister 1 pat dtamond Sister 2 allen adamegam Sister 3 [facility] Social History Tobacco Use Types Packs/Day Years [...] often do you attend chur ch or taoism services? 1 to 4 times per year 03/10/2023 Do you belong to any clubs o r organizations such as restorationist groups, unions, fraternal [...] Answer Date Recorded PHQ-2 Score 3 03/22/2021 [facility] [place] of Occupat ional Health - Occupational Stress [...] slept in a group home (including now)? 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 Gender Identity Female 02/19/2022 7:48 AM CDT Sexual Orientation Straight 02/19/2022 7: 48 AM CDT Last Filed Vital Signs Vital Sign Reading Time Taken Comments Blood Pressure 140/74 05/25/2024 2:51 PM CDT Pulse 63 05/25/2024 2:51 PM CDT Temperature 36.5 C (97.7 F) 06/12/2023 9:45 AM CDT Respiratory Rate - - Oxygen Saturation 97% 08/15/2021 11:41 AM CDT Inhaled Oxygen Concentration - - Weight 114 kg (251 lb 5.2 oz) 01/22/2024 1:35 PM FELT HAT MELLOWING MACHINE OPERATOR Height 160.9 cm (5' 3.35) 06/12/2023 9:45 AM CD T Body Mass Index 44.04 06/12/2023 9:45 AM CDT Plan of Treatment Upcoming Encounters Date Type Department Care Team (Late st Contact Info) Description 11/22/2024 10:45 AM FELT HAT MELLOWING MACHINE OPERATOR Virtual Visit Division of Nephrology and Hypertension in [place], [place] [address] [place] [address] Maddie Velásquez, RYANN, C.N.P., M.S. [address] [place] [address] Health Maintenance Due Date Last Done Comments Hepatitis B Vaccines (3 of 3 - 19+ 3-dose series) 06/11/2005 01/15/2005, 12/12/2004 RSV vaccine - (32-36 weeks) or 60+ years (1 - 1-dose 75+ series) 2012 Depression Screening (Annual PHQ-2) 11/17/2023 Fall Risk Screen (Annual) 11/17/2023 COVID-19 Vaccine (2023- season) 2024 09/12/2021, 02/17/2021, 01/27/2021 Influenza Vaccine (#1) 2024 3, 08/27/2022, 09/12/2021, Additional history exists Creatinine Level (Kidney Function Test) 05/25/2025 05/25/2024, 01/10/2024, 09/25/2023, Additional history exists Potassium Level 05/25/2025 05/25/2024, 12/19, 09/25/2023, Additional history exists Sodium Level 05/25/2025 05/25/2024, 12/19, 09/25/2023, Additional history exists DTaP,Tdap,and Td Vaccines (2 - Td or Tdap) 11/19/2026 11/19/2016, 08/10/2010, 01/24/2000 Pneumococcal vaccine (65+ years) Completed 09/29/2015, 08/10/2010, 09/05/1994 Zoster Vaccines Completed 10/29/2018, 02/2018, 08/13/2012 IPV Vaccines Aged Out No longer eligi ble based on patient's age to complete this topic Medical Devices Implanted Type Area Engineering And Scientific Programmer Device Identifier Shelf Expiration Date Model / [...] Procedure Name Priority Date/Time Associated Diagnosis Comments RENAL FUNCTION PANEL, S Routine 05/25/2024 12:59 PM CDT Hypertensive Chronic Kidney Disease (CKD) Stage 3b Glomerular Filtration Rate (GFR) 30 To 44 from Last 3 Months or Most Recently Relevant to Health Maintenance Results * (ABNORMAL) Renal Function Panel (05/25/2024 12:59 PM CDT) Potassium, S 5.2 3.6 - 5.2 mmol/L 05/25/2024 2:21 PM CDT DTL Sodium, S 143 135 - 145 mmol/L 05/25/2024 2:21 PM CDT DTL Chloride, S 106 98 - 107 mmol/L 05/25/2024 2:21 PM CDT DTL Bicarbonate, S 25 22 - 29 mmol/L 05/25/2024 2:21 PM CDT DTL Anion Gap 12 7 - 15 05/25/2024 2:21 PM CDT DTL BUN (Blood Urea Nitrogen), S 44(H) 6 - 21 mg/dL 05/25/2024 2:21 PM CDT DTL Creatinine 1.71(H) 0.59 - 1.04 mg/dL 05/25/2024 2:21 PM CDT DTL Estimated GFR (eGFR) 29(L) >=60 mL/min/BSA 05/25/2024 2:21 PM CDT DTL Comment: Estimated GFR calculated using the 2020 CKD_EPI creatinine equation. Calcium, Total, S 9.3 8.8 - 10.2 mg/dL 05/25/2024 2:21 PM CDT DTL Glucose, S 94 70 - 140 mg/dL 05/25/2024 2:21 PM CDT DTL Albumin, S 4.4 3.5 - 5.0 g/dL 05/25/2024 2:21 PM CDT DTL Phosphorus (Inorganic), S 3.5 2.5 - 4.5 mg/dL 05/25/2024 2:21 PM CDT DTL Blood (Blood, Venous) 05/25/2024 12:59 PM CDT 05/25/2024 1:44 PM CDT Kitty Miller APRN.N.P., M.S. LAB BLOOD AD D-ON Final Result [facility] [address] [place] [address], [facility] [address] [place] [address] from Last 3 Months or Most Recently Relevant to Health Maintenance Insurance MEDICARE [facility] Care Teams Head Start Teacher Relationship Specialty Start Date End Date Elsewhere, Pcp PCP - General Internal Medicine 03/26/22
--- OUTSIDE RECORDS SUMMARY | 2024-10-21 05:14 | XMS_ITS | Encounter Summary ---
Author Organization [facility] Address [address] [place] [address]. [place] [address] Care Team Providers Care Rn Immunology Name Role Phone Diane Alejandra MD Primary Care Provider [phone] Encounter Details Date Type Department Care Team (Late st Contact Info) Description 11/22/2019 Orders Only [facility] [address] [place] [id number] Tomas Eckert MD [facility] [address] [place] [id number] Pre-operative laboratory examination (Primary Dx) Social History Tobacco Use Types Packs/Day Years Used Date Smoking Tobacco: Never Alcohol Use Standard Drinks/Week Comments Yes 0 (1 standard drink = 0.6 oz pur e alcohol) SELDOM Comments No Sex and Gender Information Value Date Recorded Sex Assigned at Not on file Legal Sex Female 3:31 AM LIQUOR MERCHANT Gender Identity Not on file Sexual Orientation Not on file Occupation Industry Job Start Date Job End Date Not on file Not on file Not on file Not on file documented as of this encounter Plan of Treatment Not on file documented as of this encounter Results * Methicillin Resist/Sens S. aureus PCR (11/22/2019 9:00 AM LIQUOR MERCHANT) Specimen Description Clara 11/22/2019 3:59 PM LIQUOR MERCHANT [facility] Methicillin Resist/Sens S. aureus PCR Negative NEG^Negat lilia 11/22/2019 11:25 PM LIQUOR MERCHANT [facility] Comment: MRSA Negative: SA Negative MRSA and Staphylococcus aureus target DNA not detected, presumed negative for MRSA and SA colonization or the number of bacteria present may be below the limit of detection for the assay. FDA approved assay performed using [employer] GeneXpert(R) real-time PCR. Nasal structure (body structure) 11/22/2019 9:00 AM LIQUOR MERCHANT 11/22/2019 4:01 PM LIQUOR MERCHANT Tomas Eckert MD LAB - MICRO GENERAL ORDERABLES Final Result [facility] [address] [place], [place] [id number] [place] [address] [address] [phone] documented in this encounter Visit Diagnoses Diagnosis Pre-operative laboratory examination- Primary Pre-procedural laboratory examination documented in this encounter Care Teams Rn Immunology Relationship Specialty Start Date End Date Diane Alejandra MD [facility] - [address] [address] PCP - General Internal Medicine 10/17/17 documented as of this encounter
--- OUTSIDE RECORDS SUMMARY | 2024-10-21 05:14 | XMS_ITS ---
Author Organization [facility] Address [address] [place] [address] Care Team Providers Care Tree Trimming Line Technician Name Role Phone Unavailable Unavailable Unavailable Surgery Details Not on file Complications Check Surgery Details section. Procedure Estimated Blood Loss Check Surgery Details section. Procedure Findings Check Surgery Details section. Procedure Specimens Taken Check Surgery Details section.
--- OUTSIDE RECORDS SUMMARY | 2024-10-21 05:14 | XMS_ITS ---
Author Organization [facility] Address [address] [place] [address] Care Team Providers Care Dental Aide Name Role Phone Elsewhere, Pcp Primary Care Provider Unavailabl e Kidney Olive Grower Program Status:Enrolled (Active) Start date:12/25/2023 Enrollment date:01/22/2024 Enrollment reason:Referred by provider Current support & services provided:Stage 3b Case Team Name Relationship Phone Juan Carlos Finney R.N. Registered Nurse [phone] Continued Care and Services Coordination
--- OUTSIDE RECORDS SUMMARY | 2024-10-21 05:14 | XMS_ITS | Referral Summary ---
Author Organization [facility] Address [address] [place] [address] Care Team Providers Care Manager Mobile Name Role Phone Elsewhere, Pcp Primary Care Provider Unavailabl e Source Comments Patient records contain information from all sites at [facility]. For routine questions regarding patient records, call [phone] during business hours, M-F 8:00 AM - 5:00 PM Central Time. Record requests for emergency care only can be directed to [phone] at any time.[facility] Encounters Date Type Department Care Team Description 10/06/2024 Refill Division of Nephrology and Hypertension in [place], [place] [address] [place] [address] Maddie Velásquez, RYANN, C.N.P., M.S. Med Refill (Priority 2) from Last 3 Months Allergies Active Allergy [...] often do you attend chur ch or jehovah's witness services? 1 to 4 times per year 03/10/2023 Do you belong to any clubs o r organizations such as episcopalian groups, unions, fraternal [...] Answer Date Recorded PHQ-2 Score 3 03/22/2021 [facility] - Occupational Stress Questionnaire Answer [...] AM CDT Legal Sex Female 10:53 AM NUMERICAL CONTROL TOOL PROGRAMMER Gender Identity Female 02/19/2022 7:48 AM CDT [...] (251 lb 5.2 oz) 01/22/2024 1:35 PM NUMERICAL CONTROL TOOL PROGRAMMER Height 160.9 cm (5' 3.35) 06/12/2023 9:45 AM CD T Body Mass Index 44.04 06/12/2023 9:45 AM CDT Plan of Treatment Upcoming Encounters Date Type Department Care Team (Late st Contact Info) Description 11/22/2024 10:45 AM NUMERICAL CONTROL TOOL PROGRAMMER Virtual Visit Division of Nephrology and Hypertension in [place], [place] [address] [place] [phone] Maddie Velásquez APRN, C.N.P., M.S. [address] [place] [address] Medical Devices Implanted Type Area Gas Compressor Operator Device Identifier Shelf Expiration Date Model [...] 12:59 PM CDT 05/25/2024 1:44 PM CDT Maddie Velásquez APRN, C.N.P., M.S. LAB BLOOD AD D-ON Final Result [facility] [address] [place] [address], [place] [facility] [address] [place] [address] from Last 3 Months or Most Recently Relevant to Health Maintenance Insurance MEDICARE [facility] [[email or web address]] Care Teams Manager Mobile Relationship Specialty Start Date End Date Elsewhere, Pcp PCP - General Internal Medicine 03/26/22
--- OUTSIDE RECORDS SUMMARY | 2024-10-21 05:14 | XMS_ITS | Encounter Summary ---
Author Organization [facility] Address [address] [place] [address] Care Team Providers Care Kennel Assistant Name Role Phone Elsewhere, Pcp Primary Care Provider Unavailabl e Reason for Visit * Reason Comments Med Refill Priority 2 Encounter Details Date Type Department Care Team (Late st Contact Info) Description 10/06/2024 Refill Division of Nephrology and Hypertension in [place], [place] [address] [place] [phone] Maddie Velásquez, RYANN, C.N.P., M.S. [address] [place] [phone] Med Refill (Priority 2) Social History Tobacco Use Types Packs/Day Years [...] How often do you attend chur or alevism services? 1 to 4 times per year 03/10/2023 Do you belong to any clubs o r organizations such as oriental orthodox groups, unions, [...] Answer Date Recorded PHQ-2 Score 3 03/22/2021 [facility] of Occupat ional Health - Occupational Stress [...] or slept in a prison (including now)? No 03/10/2023 Depression Answer Date [...] AM CDT Legal Sex Female 10:53 AM PROGRAM MANAGER RN Gender Identity Female 02/19/2022 7:48 AM CDT Sexual Orientation Straight 02/19/2022 7: 48 AM CDT documented as of this encounter Plan of Treatment Upcoming Encounters Date Type Department Care Team (Late st Contact Info) Description 11/22/2024 10:45 AM PROGRAM MANAGER RN Virtual Visit Division of Nephrology and Hypertension in [place], [place] [address] [place] [address] Maddie Velásquez APRN, C.N.P., M.S. [address] [place] [address] documented as of this encounter Visit Diagnoses Diagnosis Chronic Kidney Disease (CKD), Stage 3b Glomerular Filtration Rate (GFR) 30 To 44 (HCC) documented in this encounter Additional Health Concerns Assessment Noted Time PHQ-9 Depression Total Score: 15 021 12:16 PM CDT documented as of this encounter Care Teams Kennel Assistant Relationship Specialty Start Date End Date Elsewhere, Pcp PCP - General Internal Medicine 03/26/22 documented as of this encounter
--- OUTSIDE RECORDS SUMMARY | 2024-10-21 05:14 | XMS_ITS | Referral Summary ---
Author Organization [facility] Address [address] [place] [address] Care Team Providers Care Straightening Machine Operator Name Role Phone Diane Alejandra MD Primary Care Provider Allergies Active Allergy Reactions Criticality Noted Date Comments Amoxicillin-Pot Clavulanate Nausea and Vomiting 04/03/2006 Ibuprofen 09/27/2002 in large quantities- personality change Tazobactam GI Disturbance 11/29/2019 Tetracycline 09/28/2002 Medications SENNA PO Take 1 tablet by mouth daily as needed 14 0 7 Active celecoxib (CELEBREX) 200 MG capsule Take [...] Take 10 mg by mouth daily Active lisinopril-hydro chlorothiazide (PRINZIDE/ZESTOR ETIC) 20-12.5 MG tablet Take 1 tablet by mouth daily Active levothyroxine (SYNTHROID/LEVOT HROID) 25 MCG tablet Take 25 mcg by [...] mouth daily Active oxyCODONE (ROXICODONE) 5 MG tabletIndication s:Status post total replacement of left hip Take 1-2 tablets (5-10 mg) by mouth every 4 hours as needed for moderate to severe pain 60 tablet 0 Active Active Problems Problem Noted Date Diagnosed Date S/P total hip arthroplasty 11/29/2019 HYPERLIPIDEMIA LDL GOAL <100 09/16/2010 RESTLESS LEG SYNDROME 10/31/2005 Primary localized osteoarthrosis, lower leg 09/17 Edema 09/28/2002 Overview (03/27/2009): Multifactorial - venous insufficiency, has [place]. Depressive disorder, not elsewhere classified Esophageal reflux 09/28/2002 Mixed hyperlipidemia 09/28/2002 Sleep apnea 09/28/2002 Overview (08/17/2015): Compliant with CPAP, has greatly improved symptoms. Problem list name updated by automated process. Provider to review Obesity 09/28/2002 Overview (08/17/2015): Problem list name updated by automated process. [...] School Help Needed Not on file 08/31 Comments No Sex and Gender Information Value Date Recorded Sex Assigned at Not on file Legal Sex Female 3:31 AM COAL UNLOADER Gender Identity Not on file Sexual Orientation Not on file Occupation Industry Job Start Date Job End Date Not on file Not on file Not on file Not on file Last Filed Vital Signs Vital Sign Reading Time Taken Comments Blood Pressure 120/43 12/01/2019 9:50 AM COAL UNLOADER Pulse 67 11/29/2019 6:00 PM COAL UNLOADER Temperature 36.3 C (97.4 F) 12/01/2019 9:50 AM COAL UNLOADER Respiratory Rate 16 12/01/2019 9:50 AM COAL UNLOADER Oxygen Saturation 96% 12/01/2019 9:50 AM COAL UNLOADER Inhaled Oxygen Concentration - - Weight 108 kg (238 lb) 11/29/2019 8:06 AM COAL UNLOADER Height 165.1 cm (5' 5) 11/29/2019 8:06 AM COAL UNLOADER Body Mass Index 39.61 11/29/2019 8:06 AM COAL UNLOADER Plan of Treatment Not on file Medical Devices Implanted Type Area Verification Clerk Device Identifier Shelf Expiration Date Model / Serial / Lot Imp Scr Zim 6.5x30mm Acet Cup Self Tap Implanted:Qty: 1 on 11/29/2019 by Tomas Eckert MD at [facility] Metallic Hardware/An chor Left: Hip [employer] 07/17/[id number] / / [id number] Imp Shell Biom G7 Acetab Pps Carrillo Hole 52mm Sz E [id number] Implanted:Qty: 1 on 11/29/2019 by Tomas Eckert MD at [facility] Total Joint Component/I nsert Left: Hip [employer] 06/25/2029 [id number] / / [id number] Imp Stem Fem Biom Taperloc Hi Offset Type 1 [id number] Implanted:Qty: 1 on 11/29/2019 by Tomas Eckert MD at [facility] Total Joint Component/I nsert Left: Hip [employer] 03/23/2029 [id number] / / [id number] Acetabular Liner Neutral, 36mm Head Size, E Liner Size Implanted:Qty: 1 on 11/29/2019 by Tomas Eckert MD at [facility] Left: Hip [employer] 08/27/2024 [id number] / / [id number] [employer] Delta Hip System Modular Ceramic Head, Type 1 Taper, 36mm Head 0 Standard Neck Implanted:Qty: 1 on 11/29/2019 by Tomas Eckert MD at [facility] Left: Hip [employer] 03/22/2029 [id number] / / [id number] Procedures Procedure Name Priority Date/Time Associated Diagnosis Comments ZZHCL TSH W/FREE T4 REFLEX Routine 09/15/2009 12:25 PM CDT Screening for Condition CL AFF A.M.A. LIPID PANEL Routine 09/15/2009 12:25 PM CDT Mixed Hyperlipidemia C DEXA, BONE DENSITY, AXIAL SKEL Routine 06/27/2005 DIAGNOSIS NOT YET DEFINED from Last 3 Months or Most Recently Relevant to Health Maintenance Results * TSH W/FREE T4 REFLEX (09/15/2009 12:25 PM CDT) TSH 4.59 0.4 - 5.0 mU/L [facility] 09/15/2009 12:2 5 PM CDT 09/15/2009 12:30 PM CDT us Nader Garibay MD LABORATORY Final Resu lt [facility] [address] [place] [address] * (ABNORMAL) A.M.A. LIPID PANEL (09/15/2009 12:25 PM CDT) Cholesterol 197 0 - 200 mg/dL [facility] Comment: LDL Cholesterol is the primary guide to therapy: LDL-cholesterol goal in high risk patients is <100 mg/dL and in very high risk patients is <70 mg/dL. The NCEP recommends further evaluation of: patients with cholesterol <200 mg/dL if additional risk factors are present, cholesterol >240 mg/dL, triglycerides >150 mg/dL, or HDL <40 mg/dL. Triglycerides 150 0 - 150 mg/dL [facility] HDL Cholesterol 45(L) 50 - 110 mg/dL [facility] LDL Cholesterol Calculated 122 0 - 129 mg/dL [facility] VLDL-Cholesterol 30 0 - 30 mg/dL [facility] Cholesterol/HDL Ratio 4.4 0.0 - 5.0 [facility] 09/15/2009 12:2 5 PM CDT 09/15/2009 12:30 PM CDT us Nader Garibay MD LABORATORY Final Resu lt [facility] [address] [place] [address] * DEXA, BONE DENSITY, AXIAL SKEL (06/27/2005) Anatomical Region Laterality Modality Other 06/27/2005 us Isaac Mason [employer] IMAGING STUDIES Fin al Result from Last 3 Months or Most Recently Relevant to Health Maintenance Insurance [employer] [place] [address] MEDICARE Care Teams Straightening Machine Operator Relationship Specialty Start Date End Date Diane Alejandra MD [address] [address] PCP - General Internal Medicine 10/17/17
--- OUTSIDE RECORDS SUMMARY | 2024-10-21 05:14 | XMS_ITS | Encounter Summary ---
Author Organization [facility] Address [address] [place] [address]. [place] [address] Care Team Providers Care Ferris Wheel Operator Name Role Phone Nader Garibay MD Primary Care Provider [phone]- [phone] Diane Alejandra MD Primary Care Provider Encounter Details Date Type Department Care Team (Late st Contact Info) Description 07/08/[address] [id number] Isaac Mason Social History Tobacco Use Types Packs/Day Years Used Date Smoking Tobacco: Never Assessed Comments No Sex and Gender Information Value Date Recorded Sex Assigned at Not on file Legal Sex Female 3:31 AM PAN SHAKER Gender Identity Not on file Sexual Orientation Not on file documented as of this encounter Plan of Treatment Not on file documented as of this encounter Visit Diagnoses Not on filedocumented in this encounter Care Teams Ferris Wheel Operator Relationship Specialty Start Date End Date Nader Garibay MD PCP - General 01/01/02 10/16/17 Diane Alejandra MD [address] [address] PCP - General Internal Medicine 10/17/17 documented as of this encounter
--- OUTSIDE RECORDS SUMMARY | 2024-10-21 05:14 | XMS_ITS | Encounter Summary ---
Author Organization [facility] Address [address] [place] [address]. [place] [address] Care Team Providers Care Ore Miner Blasting Name Role Phone Nader Garibay MD Primary Care Provider [phone]- [phone] Diane Alejandra MD Primary Care Provider [phone] Encounter Details Date Type Department Care Team (Late st Contact Info) Description 09/29/[address] [phone] Ceferino Rodríguez MD NO INFO AVAILABLE Social History Tobacco Use Types Packs/Day Years Used Date Smoking Tobacco: Never Smokeless Tobacco: Never Alcohol Use Standard Drinks/Week Comments Yes 0 (1 standard drink = 0.6 oz pur e alcohol) 2drinks a month Comments No Sex and Gender Information Value Date Recorded Sex Assigned at Not on file Legal Sex Female 3:31 AM SKIN GRADER Gender Identity Not on file Sexual Orientation Not on file Occupation Industry Job Start Date Job End Date Not on file Not on file Not on file Not on file documented as of this encounter Progress Notes * 09/29/2002 11:59 PM CSTAddended by: CEFERINO RODRÍGUEZ) on: 10/06/2002,8:29 AM Modules accepted: Progress Notes Addended by : CALI FELIPE on: 10/05/2002,2:15 PM Modules accepted: Progress Notes Addended by: CEFERINO RODRÍGUEZ) on: 10/01/2002,3:14 PM Modules accepted: Progress Notes Addended by: GAEL DEL CASTILLO on: 2,2:51 PM Modules accepted: Progress Notes 00:00 History And Physical-CEFERINO MUKHERJEE) [Entered: 00:00 Extractor Operator ([facility])] : 39 CHIEF COMPLAINT: Post menopausal vaginal bleed. HISTORY: Tonya Card is a 66-year-old female, para II-0-I-II, who [...] and that was scheduled for 06/10/02 at [facility]. The inés haines called on 05/31/02 and stated that she would be leaving [facility] and asked if it would be okay to p judee her surgery until September. We recommended that she not do this, but the patient left and ca lled us upon her return to [facility]. She is now being admitted to the hospital for a fractional dilation and curettage and a diagnostic hysteroscopy. Since she was seen in May, she states that she has sims d some intermittent spotting and about 10 days ago had some vaginal bleeding. PAST OB HISTORY: Cesa rean section in 1963, repeat section in 1964, spontaneous with a [...] in the office on 09/27/02. [id number] CEFERINO RODRÍGUEZ MD T: 09/2002 17:25 MT: Document: [id number] [place], [place] Name: JOSE NEWMAN VIELKA M HISTORY AND PHYSICAL Page 2 of 2 LCN: SDS DSC: 09/29/2002 [place], [place] Name: MR#: : Admit Date: PrinceTODDANASTASIA NEWMANENE Jocelyn -[id number] 1935 Doctor: CEFERINO RODRÍGUEZ MD HISTORY AND PHYSICAL Page 1 of 2 Electronically filed by Tiffanie Del Castillo 10/01/2002 2:51 PM 00:00 Operative Report-[facility] CEFERINO RODRÍGUEZ) [Entered: 00:00 Extractor Operator ([facility])] : 39 1st ASS'T: 2nd ASS'T: PRE-OPERATIV E DIAGNOSIS: Postmenopausal vaginal bleeding. POST-OPERATIVE DIAGNOSIS: Postmenopausal vaginal ble eding. OPERATION: Fractional dilation and curettage; diagnostic hysteroscopy. ANESTHESIA: General . PROCEDURE: Vielka Card was taken to the operating room with an I.V. running in the [facility]. She was placed on the operating [...] overnight before discharging her home. [id number] CEFERINO RODRÍGUEZ MD MT: Document: [id number] [place], [place] Name: VIELKA CARD OPERATIVE REPORT Page 2 of 2 LCN : MS2 DSC: 09/30/2002 [place], [place] Name: MR#: : Procedure Vitor e: PrinceVIELKA ALARCON [id number] 09/29/2002 Doctor: CEFERINO RODRÍGUEZ MD OPERATIVE REPO RT Page 1 of 2 Electronically filed by Cali Felipe 10/05/2002 2:15 PM documented in this encounter Plan of Treatment Not on file documented as of this encounter Visit Diagnoses Not on filedocumented in this encounter Care Teams Ore Miner Blasting Relationship Specialty Start Date End Date Nader Garibay MD PCP - General 01/01/02 10/16/17 Diane Alejandra MD [address] [address] PCP - General Internal Medicine 10/17/17 documented as of this encounter
--- OUTSIDE RECORDS SUMMARY | 2024-10-21 05:14 | XMS_ITS | Clinical Summary ---
Author Organization [facility] Address [address] [place] [address] Care Team Providers Care Pipe Cutter Name Role Phone Diane Alejandra MD Primary [...] ; AGE 89 Heart Disease Paternal Grandfather [place] Cancer Paternal Grandmother OVARIAN Cancer Sister 1 [...] on file Legal Sex Female 3:31 AM AGENCY OPERATOR Gender Identity Not on file Sexual Orientation Not on file Occupation Industry Job Start Date Job End Date Not on file Not on file Not on file Not on file Last Filed Vital Signs Vital Sign Reading Time Taken Comments Blood Pressure 120/43 12/01/2019 9:50 AM AGENCY OPERATOR Pulse 67 11/29/2019 6:00 PM AGENCY OPERATOR Temperature 36.3 C (97.4 F) 12/01/2019 9:50 AM AGENCY OPERATOR Respiratory Rate 16 12/01/2019 9:50 AM AGENCY OPERATOR Oxygen Saturation 96% 12/01/2019 9:50 AM AGENCY OPERATOR Inhaled Oxygen Concentration - - Weight 108 kg (238 lb) 11/29/2019 8:06 AM AGENCY OPERATOR Height 165.1 cm (5' 5) 11/29/2019 8:06 AM AGENCY OPERATOR Body Mass Index 39.61 11/29/2019 8:06 AM AGENCY OPERATOR Plan of Treatment Health Maintenance Due Date Last Done Comments ADVANCE CARE PLANNING 1935 ANNUAL REVIEW OF HM ORDERS 1935 FALL RISK ASSESSMENT 2002 LIPID 09/15/2010 09/15/2009, 03/17, 03/31/2007, Additional history exists TSH W/FREE T4 REFLEX 09/15/2010 09/15/2009, 07/01/2007, 08/15/2006, Additional history exists RSV VACCINE (1 - 1-dose 75+ series) 2012 DEXA 06/27/2020 06/27/2005 PHQ-2 (once per calendar year) 2023 COVID-19 Vaccine ( season) 2024 09/12/2021, 02/17/2021, 01/27/2021 INFLUENZA VACCINE (#1) 2024 2, 09/14/2021, 08/17/2020, Additional history exists DTAP/TDAP/TD IMMUNIZATION [...] this topic Medical Devices Implanted Type Area Business Support Liaison Device Identifier Shelf Expiration Date Model / Serial / Lot Imp Scr Zim 6.5x30mm Acet Cup Self Tap [id number] Implanted:Qty: 1 on 11/29/2019 by Tomas Eckert MD at [facility] Metallic Hardware/An chor Left: Hip [employer] 07/17/[id number] / / [id number] Imp Shell Biom G7 Acetab Pps Carrillo Hole 52mm Sz E [id number] Implanted:Qty: 1 on 11/29/2019 by Tomas Eckert MD at [facility] Total Joint Component/I nsert Left: Hip [employer] 06/25/2029 [id number] / / [id number] Imp Stem Fem Biom Taperloc Hi Offset Type 1 Sz9 [id number] Implanted:Qty: 1 on 11/29/2019 by Tomas Eckert MD at [facility] Total Joint Component/I nsert Left: Hip [employer] 03/23/2029 [id number] / / [id number] Acetabular Liner Neutral, 36mm Head Size, E Liner Size Implanted:Qty: 1 on 11/29/2019 by Tomas Eckert MD at [facility] Left: Hip [employer] 08/27/2024 [id number] / / [id number] Biolox Delta Hip System Modular Ceramic Head, Type 1 Taper, 36mm Head 0 Standard Neck Implanted:Qty: 1 on 11/29/2019 by Tomas Eckert MD at [facility] Left: Hip [employer] 03/22/2029 [id number] / / [id number] Procedures Procedure Name Priority Date/Time Associated Diagnosis [...] CDT) TSH 4.59 0.4 - 5.0 mU/L [facility] 09/15/2009 12:2 5 PM CDT 09/15/2009 12:30 PM CDT us Nader Garibay MD LABORATORY Final Resu lt [facility] [address] [place] [address] * (ABNORMAL) A.M.A. LIPID PANEL (09/15/2009 12:25 PM CDT) Cholesterol 197 0 - 200 mg/dL [facility] Comment: LDL Cholesterol is the primary guide to therapy: LDL-cholesterol goal in high risk patients is <100 mg/dL and in very high risk patients is <70 mg/dL. The NCEP recommends further evaluation of: patients with cholesterol <200 mg/dL if additional risk factors are present, cholesterol >240 mg/dL, triglycerides >150 mg/dL, or HDL <40 mg/dL. Triglycerides 150 0 - 150 mg/dL [facility] HDL Cholesterol 45(L) 50 - 110 mg/dL [facility] LDL Cholesterol Calculated 122 0 - 129 mg/dL [facility] VLDL-Cholesterol 30 0 - 30 mg/dL [facility] Cholesterol/HDL Ratio 4.4 0.0 - 5.0 [facility] 09/15/2009 12:2 5 PM CDT 09/15/2009 12:30 PM CDT us Nader Garibay MD LABORATORY Final Resu lt [facility] [address] [place] [address] * DEXA, BONE DENSITY, AXIAL SKEL (06/27/2005) Anatomical Region Laterality Modality Other 06/27/2005 us Isaac Mason SPECIAL IMAGING STUDIES Fin al Result from Last 3 Months or Most Recently Relevant to Health Maintenance Insurance [facility] [employer] MEDICARE Care Teams Pipe Cutter Relationship Specialty Start Date [place] [address] PCP - General Internal Medicine 10/17/17
== END 2024-10-18 10:31 | disposition home or self-care (01) ==
LOC: NFLDREF 10-21 05:10
PROVIDERS: PCP Internal Medicine; Referring Provider Internal Medicine; Visit Provider Internal Medicine
DX: E78.5 Hyperlipidemia, unspecified (principal); E03.9 Hypothyroidism, unspecified
CPT/HCPCS: 80061; 84443

== ENCOUNTER 2024-11-11 11:26 | Outpatient (REF) | payer MEDICARE, BC, SELFPAY ==
[2024-11-11 11:53] LABS: Appearance Urine Slightly Cloudy (Clear); Basophils Absolute Auto 0.02 K/uL (0.00-0.30); Basophils Percent Auto 0.3 % (0.0-3.0); Bilirubin Urine Negative (Negative); Blood Urine Negative (Negative); Color Urine Yellow (Yellow); Eosinophils Absolute Auto 0.14 K/uL (0.00-0.50); Eosinophils Percent Auto 2.1 % (0.0-7.0); Glucose Urine 1+ (Negative); Hematocrit 40.6 % (33.0-51.0); Hemoglobin* 12.3 gm/dL (12.0-16.0); Immature Granulocytes Abs Auto 0.03 K/uL (0.00-0.30); Immature Granulocytes Pct Auto 0.5 %; Ketones Urine Negative (Negative); Leukocyte Esterase Urine 1+ (Negative); Lymphocytes Absolute Auto 1.71 K/uL (0.90-2.90); Lymphocytes Percent Auto 25.7 % (20-44); Mean Corpuscular HGB Conc 30 gm/dL (32-36); Mean Corpuscular Hemoglobin 29 pg (26-34); Mean Corpuscular Volume 96 fL (80-100); Monocytes Percent Auto 8.1 % (0.0-11.0); Neutrophils Absolute Auto 4.22 K/uL (1.7-7.0); Neutrophils Percent Auto 63.3 % (42.0-72.0); Nitrite Urine Negative (Negative); Platelet Count* 225 K/uL (140-440); Protein Urine Negative (Negative); RDW Coefficient of Variation % 13.5 % (11.5-15.5); Red Blood Count 4.25 m/uL (4.00-5.20); Specific Gravity Urine 1.015 (1.000-1.030); Urobilinogen Urine 0.2 (0.2-1.0); White Blood Count* 6.66 K/uL (4.50-11.00)
[2024-11-11 11:55] LABS: Slide Review Reflex No
[2024-11-11 11:58] LABS: Albumin* 4.4 g/dL (3.3-5.0); Chloride* 105 mmol/L (96-114); Potassium* 4.4 mmol/L (3.6-5.1); Sodium* 142 mmol/L (135-149)
[2024-11-11 12:01] LABS: Anion Gap 7 mEq/L (7-15); Bacteria Urine Few; Blood Urea Nitrogen* 28 mg/dL (7-30); Carbon Dioxide* 30 mmol/L (20-32); Creatinine* 1.4 mg/dL (0.5-1.5); Estimated Glomerular Filt Rate 36 ml/min; Phosphorus* 3.6 mg/dL (2.5-4.5); RBC Urine 0-2 (0-2); Squamous Epithelial Cell Urine Few (None-Few)
[2024-11-11 12:02] LABS: Calcium* 9.6 mg/dL (8.4-10.6); Glucose* 94 mg/dL (60-115)
[2024-11-11 12:13] LABS: PTH Intact* 173.5 pg/mL (14.2-75.2)
== END 2024-11-11 11:27 | disposition home or self-care (01) ==
LOC: NPINS 11:26
PROVIDERS: PCP Internal Medicine; Visit Provider Nurse Practitioner
DX: I12.9 Hypertensive chronic kidney disease with stage 1 through stage 4 chronic kidney disease, or unspecified chronic kidney disease (principal); R82.90 Unspecified abnormal findings in urine
CPT/HCPCS: 80069; 81001; 83970; 85025; 87086; 87186

== ENCOUNTER 2024-11-20 03:27 | Outpatient (CLI) | payer MEDICARE, BC, SELFPAY | END 2024-11-20 03:28 | disposition home or self-care (01) | LOC: AMB 11-21 07:41 | PROVIDERS: PCP Internal Medicine; Visit Provider Family Medicine | DX: R07.89 Other chest pain (principal) | CPT/HCPCS: A0425; A0427 ==

== ENCOUNTER 2024-11-20 04:08 | Observation (INO) | payer MEDICARE, BC, SELFPAY ==
[2024-11-20] VITALS (16 sets, daily range): BP systolic 136–179; BP diastolic 48–102; PULSE 69–81; RESP 16–20; TEMP 36.2–36.6; O2SAT 92–99; BMI 43.6; BMI 43.7
--- NOTE | 2024-11-20 04:09 | ED.GENADULT ---
HPI - General Adult General Time Seen by Provider: 04:09 Date Seen: 11/20/24 Chief complaint: Chest Pain Stated complaint: Chest Pain Time Seen by Provider: 11/20/24 04:09 Source: patient, family, EMS, RN notes reviewed and old records reviewed Mode of arrival: EMS Limitations: no limitations History of Present Illness HPI narrative: 89-year-old female with history of renal disease, depression, sleep apnea, hypertension who presents today with chest pain. Patient reports approximately 3 hours of substernal chest pain, no radiation into the neck, shoulders, or arms. Some shortness of breath, no nausea vomiting. Took Tylenol with no improvement. Pain is not worse with activity or breathing. Denies new lower extremity edema, says she has chronic lymphedema in that the right leg usually is more swollen the left. Denies any recent illness otherwise. Presents by EMS. Related Data Home Medications ?Medication ?Instructions ?Recorded ?Confirmed allopurinol 100 mg tablet 50 mg PO DAILY 10/07/22 11/20/24 dapagliflozin propanediol 10 mg 10 mg PO QDAY 10/07/22 11/20/24 tablet (Farxiga) zinc sulfate 50 mg zinc (220 mg) 50 mg PO DAILY 10/07/22 11/20/24 capsule lisinopril 20 mg tablet 20 mg PO DAILY 07/24/23 11/20/24 multivitamin (Daily Multi-Vitamin 1 tab PO DAILY 07/24/23 11/20/24 tablet) acetaminophen 650 mg 650 mg PO Q8H 09/29/23 11/20/24 tablet,extended release torsemide 10 mg tablet 10 mg PO DAILY 09/29/23 11/20/24 Vitamin B+ 1 tab PO DAILY 10/21/24 11/20/24 lactobacillus combination no.9 4 4,000 mmu cells PO QDAY 10/21/24 11/20/24 billion cell capsule (Adult 50 Plus Probiotic) Previous Rx's ?Medication ?Instructions ?Recorded nystatin 100,000 unit/gram topical 1 applic topical QDAY #30 grams 10/13/24 powder bupropion HCl 300 mg 24 hr tablet, 300 mg PO QDAY #90 tabs 10/21/24 extended release levothyroxine 25 mcg tablet 25 mcg PO QDAY #90 tabs 10/21/24 simvastatin 20 mg tablet 20 mg PO Q48H #45 tabs 10/21/24 Allergies Allergy/AdvReac Type Severity Reaction Status Date / Time clavulanic acid Allergy Verified 11/20/24 04:17 tazobactam Allergy Verified 11/20/24 04:17 Tetracyclines Allergy Verified 11/20/24 04:17 ibuprofen AdvReac spacing Verified 11/20/24 04:17 out with large doses PFSH PFSH Medical History (Updated 11/20/24 @ 08:05 by Bola Warren MD) History of deep vein thrombosis (DVT) of lower extremity ?Z86.718 - Personal history of other venous thrombosis and embolism (ICD-10) History of renal stone ?Z87.442 - Personal history of urinary calculi (ICD-10) Surgical History 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) ?G57.31 - Lesion of lateral popliteal nerve, right lower limb (ICD-10) History of cataract surgery ?Z98.49 - Cataract extraction status, unspecified eye (ICD-10) History of total knee replacement (2005) ?Z96.659 - Presence of unspecified artificial knee joint (ICD-10) 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 nonsmoker. uses a lift recliner and walker in her home. What is your current living situation?: I presently have a place to live Problems where you live: no known problems Problems where you live details: Two steps from garage into house In the past 12 months, utilities in danger of being shut off: no In past 12 months, lack of transportation kept you from medical appts, meetings, work, or getting things needed for daily living: no In the past 12 mos, have been you worried that your food would run out before you had money to buy more?: never true In the past 12 mos, the food you bought just didn't last and you didn't have money to buy more?: never true Highest level of school completed/degree received: some college, no degree Smoking Status: Never smoker Do you use any of these nicotine containing products: None Second hand tobacco smoke exposure: No How often do you have a drink containing alcohol: 2-3 times a week Alcohol type: wine How often do you have six or more drinks on one occasion: Never AUDIT-C Alcohol total score: 3 Non-prescribed substance use: denies use Caffeine: Yes (Half caffinated coffee) How often does anyone, including family, friends and others, physically hurt you: never How often does anyone, including family, friends and others, insult or talk down to you: never How often does anyone, including family, friends and others, threaten you with harm: never How often does anyone, including family, friends and others, scream or curse at you: never service: No Exam Narrative: Exam Narrative: General: Well-developed and well-nourished, no acute distress Head: Atraumatic and normocephalic Eyes: Pupils are equal reactive, extraocular motions intact, conjunctiva clear ENT: External nose and ears are normal, posterior pharynx without erythema or exudate Neck: No midline cervical tenderness, full spontaneous range of motion the neck, trachea midline, no adenopathy Heart: Regular rate and rhythm no murmurs or thrills Lungs: Clear to auscultation bilaterally without wheezes or crackles Abdomen: Soft, nontender, nondistended with active bowel sounds Musculoskeletal: Bilateral lower extremity edema worse on the right which patient says his usual, mild erythema the anterior lower leg on the right which patient says is chronic, no warmth or tenderness Neurologic: Awake, alert, and oriented x3, no gross focal neurologic deficits, cranial nerves intact as tested Psych: Mood and affect are appropriate Skin: No rashes Const: Vital Signs, click to edit/add: Vital Signs - 24 hr 11/20/24 04:13 11/20/24 04:33 11/20/24 05:02 Temperature 97.1 F L Pulse Rate 76 76 Pulse Rate [Pulse Oximeter] 81 Respiratory Rate 18 20 Blood Pressure 168/67 H 169/73 H Blood Pressure [Ri ght Upper Arm] 179/74 H Pulse Oximetry 92 97 96 Oxygen Delivery Me thod Room Air Room Air 11/20/24 05:32 11/20/24 06:02 11/20/24 06:32 Temperature Pulse Rate 77 71 73 Pulse Rate [Pulse Oximeter] Respiratory Rate 18 16 Blood Pressure 153/48 H 158/55 H 154/56 H Blood Pressure [Ri ght Upper Arm] Pulse Oximetry 96 96 96 Oxygen Delivery Me thod Room Air Room Air 11/20/24 06:33 11/20/24 07:02 11/20/24 07:32 Temperature Pulse Rate 74 69 72 Pulse Rate [Pulse Oximeter] Respiratory Rate Blood Pressure 153/58 H 158/72 H Blood Pressure [Ri ght Upper Arm] Pulse Oximetry 99 97 94 Oxygen Delivery Me thod Room Air Room Air Course Course ED Course: Reviewed most recent nephrology office visit from May 2020 for which was follow-up of chronic kidney disease, at that time was complaining of some back pain with what sounds like lower extremity neuropathy, baseline creatinine in the range of some 1.71 at that time. Patient presents today by EMS with chest pain going on for the last 3 hours. Constant during that time with some shortness of breath. On exam here, patient's vital is stable, appears comfortable. Initial EKG is reassuring, no abdominal tenderness on exam, she does have bilateral lower extremity edema worse on the right but says her legs look about the same as usual with normal asymmetry related to lymphedema. Labs are ordered along with chest x-ray. EKG independently interpreted by me performed at 4:16 a.m. demonstrates sinus rhythm first-degree AV block rate 77, no acute ST elevations or depressions, normal axis, normal intervals, QTC 414, KS 274, no prior for comparison. Reevaluation(s) Time of Reevaluation #1: 05:53 Reevaluation #1: Labs ordered and independently interpreted by me with normal CBC, normal basic metabolic panel, normal panic panel, normal lipase, normal BNP, negative respiratory panel. Chest x-ray and panel interpreted by me negative for acute findings. D-dimer 0.97 which is just above normal range given a edge but is remaining labs are reassuring, would defer CT PE study at this time. Time of Reevaluation #2: 06:06 Reevaluation #2: Patient is complaining of some increased pain, repeat EKG is ordered although telemetry looks normal. Repeat EKG performed at 6:09 a.m. demonstrates sinus rhythm first-degree AV block rate 72, no acute ischemic changes, normal axis, QRS 88, QTc 424, KS 278, no change from prior. Time of Reevaluation #3: 06:46 Reevaluation #3: Contacted lab, initial troponin is negative. Repeat troponin 2 hours will be ordered. Additional Reevaluation(s): 07 patient recheck, no improvement in pain after GI cocktail. Nitroglycerin and Toradol or ordered. 8:06 a.m. care discussed with Dr. Veliz, hospitalist for admission. Patient repeat troponin is negative but still having chest pain in spite of nitroglycerin, Toradol, GI cocktail. Given elevated D-dimer and no other definite etiology for pain, CT PE study is now ordered. Vital Signs Vital signs: Initial Vital Signs Temperature 97.1 F L 11/20/24 04:13 Temperature Source Temporal Artery Scan 11/20/24 04:13 Pulse Rate 81 11/20/24 04:13 Respiratory Rate 18 11/20/24 04:13 Blood Pressure 179/74 H 11/20/24 04:13 Blood Pressure Mean 109 H 11/20/24 04:13 Blood Pressure Position Supine 11/20/24 04:13 Pulse Oximetry 92 11/20/24 04:13 Oxygen Delivery Method Room Air 11/20/24 04:13 Vital Signs Temperature 97.1 F L 11/20/24 04:13 Pulse Rate 81 11/20/24 04:13 Respiratory Rate 18 11/20/24 04:13 Blood Pressure 179/74 H 11/20/24 04:13 Pulse Oximetry 92 11/20/24 04:13 Oxygen Delivery Method Room Air 11/20/24 04:13 Temperature 97.1 F L 11/20/24 04:13 Pulse Rate 72 11/20/24 07:32 Respiratory Rate 16 11/20/24 06:32 Blood Pressure 158/72 H 11/20/24 07:32 Pulse Oximetry 94 11/20/24 07:32 Oxygen Delivery Method Room Air 11/20/24 07:32 Medications Administered Medications: Generic Name Dose Route Start Last Admin Trade Name Parrish PRN Reason Stop Dose Admin Nitroglycerin 0.4 mg 11/20/24 07:13 11/20/24 07:49 Nitroglycerin 0.4 Mg Tab.Subl SUBLINGUAL 0.4 mg Q5M PRN Administration Discontinued Medications Generic Name Dose Route Start Last Admin Trade Name Parrish PRN Reason Stop Dose Admin Aspirin 324 mg 11/20/24 04:39 11/20/24 05:09 Aspirin 81 Mg Tab.Chew PO 11/20/24 04:40 324 mg ONCE ONE Administration Ketorolac Tromethamine 15 mg 11/20/24 07:13 11/20/24 07:24 Ketorolac 15 Mg/Ml Inj IVP 11/20/24 07:14 15 mg ONCE ONE Administration Lidocaine/Aluminum/Magnesium/Simeth 30 ml 11/20/24 06:28 11/20/24 06:33 Gi Cocktail (Visc Lido/Antacid) 30 Ml PO 11/20/24 06:29 30 ml ONCE ONE Administration Medical Decision Making Lab Data Labs: Lab Results 11/20/24 11/20/24 11/20/24 Range/Units 05:10 05:39 07:20 WBC 9.19 (4.50-11.00) K/uL RBC 4.35 (4.00-5.20) m/uL Hgb 12.7 (12.0-16.0) gm/dL Hct 40.9 (33.0-51.0) % MCV 94 (80-100) fL MCH 29 (26-34) pg MCHC 31 L (32-36) gm/dL RDW Coeff of Baylee 13.3 (11.5-15.5) % Plt Count 190 (140-440) K/uL Neut % (Auto) 79.2 H (42.0-72.0) % Lymph % (Auto) 11.6 L (20-44) % [place] % (Auto) 7.3 (0.0-11.0) % Eos % (Auto) 1.4 (0.0-7.0) % Baso % (Auto) 0.2 (0.0-3.0) % Neut # (Auto) 7.30 H (1.7-7.0) K/uL Lymph # (Auto) 1.10 (0.90-2.90) K/uL [place] # (Auto) 0.70 (0.00-0.90) K/UL Eos # (Auto) 0.13 (0.00-0.50) K/uL Baso # (Auto) 0.02 (0.00-0.30) K/uL Abs Immat Gran (auto) 0.03 (0.00-0.30) K/uL Imm/Tot Granulo (auto) 0.3 % D-Dimer Quant (PE/DVT) 0.97 H (0.00-0.50) ug/ml Sodium 139 (135-149) mmol/L Potassium 4.6 (3.6-5.1) mmol/L Chloride 105 (96-114) mmol/L Carbon Dioxide 27 (20-32) mmol/L Anion Gap 7 (7-15) mEq/L BUN 29 (7-30) mg/dL Creatinine 1.3 (0.5-1.5) mg/dL Estimated Creat Clear 27.43 Estimated GFR 40 ml/min Glucose 97 (60-115) mg/dL Calcium 9.4 (8.4-10.6) mg/dL Magnesium 2.4 (1.5-2.6) mg/dL Total Bilirubin 0.6 (0.1-1.5) mg/dL Direct Bilirubin 0.2 (0.0-0.5) mg/dL AST 24 (12-35) U/L ALT 19 (4-35) U/L Alkaline Phosphatase 63 (40-150) U/L Troponin I < 0.01 L < 0.01 L (0.01-0.04) ng/mL NT-Pro-B Natriuret Pep 223 pg/mL Total Protein 6.7 (6.0-8.3) g/dL Albumin 4.1 (3.3-5.0) g/dL Lipase 108 (23-300) U/L SARS-CoV-2 (PCR) Negative SARS-CoV-2 (Negative) Influenza Type A (PCR) Negative PCR FLU A (Negative) Influenza Type B (PCR) Negative PCR FLU B (Negative) RSV (PCR) Negative PCR RSV (Negative) Lab Acknowledgement Test Added Discharge Plan Discharge Clinical Impression: Chest pain, Gastroesophageal reflux, Hyperlipidemia, Essential hypertension Prescriptions: No Action nystatin 100,000 unit/gram powder 1 applic topical QDAY Qty: 30 0RF zinc sulfate 50 mg zinc (220 mg) capsule 50 mg PO DAILY acetaminophen 650 mg tablet extended release 650 mg PO Q8H Vitamin B+ 1 tab PO DAILY Adult 50 Plus Probiotic 4 billion cell capsule 4,000 mmu cells PO QDAY Rx Instructions: administer with a meal levothyroxine 25 mcg tablet 25 mcg PO QDAY Qty: 90 3RF simvastatin 20 mg tablet 20 mg PO Q48H Qty: 45 3RF bupropion HCl 300 mg tablet extended release 24 hr 300 mg PO QDAY Qty: 90 3RF allopurinol 100 mg tablet 50 mg PO DAILY Farxiga 10 mg tablet 10 mg PO QDAY lisinopril 20 mg tablet 20 mg PO DAILY multivitamin [Daily Multi-Vitamin] Tablet 1 tab PO DAILY torsemide 10 mg tablet 10 mg PO DAILY Rx Instructions: Take 2 tabs PRN Follow Up/Referrals: Diane Alejandra MD [Primary Care Provider] -
--- OUTSIDE RECORDS SUMMARY | 2024-11-20 04:10 | XMS_ITS | Encounter Summary ---
Author Organization [facility] Address [address] [place] [address]. 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
--- OUTSIDE RECORDS SUMMARY | 2024-11-20 04:10 | XMS_ITS | Clinical Summary ---
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 Gender Identity Not on file Sexual Orientation Not on file Occupation Industry Job Start Date Job End Date Not on file Not on file Not on file Not on file Last Filed Vital Signs Vital Sign Reading Time Taken Comments Blood Pressure 120/43 12/01/2019 9:50 AM HAND GLASS CUTTER Pulse 67 11/29/2019 6:00 PM HAND GLASS CUTTER Temperature 36.3 C (97.4 F) 12/01/2019 9:50 AM HAND GLASS CUTTER Respiratory Rate 16 12/01/2019 9:50 AM HAND GLASS CUTTER Oxygen Saturation 96% 12/01/2019 9:50 AM HAND GLASS CUTTER Inhaled Oxygen Concentration - - Weight 108 kg (238 lb) 11/29/2019 8:06 AM HAND GLASS CUTTER Height 165.1 cm (5' 5) 11/29/2019 8:06 AM HAND GLASS CUTTER Body Mass Index 39.61 11/29/2019 8:06 AM HAND GLASS CUTTER Plan of Treatment Health Maintenance Due Date Last Done Comments ADVANCE CARE PLANNING 1935 ANNUAL REVIEW OF HM ORDERS 1935 FALL RISK ASSESSMENT 2002 LIPID 09/15/2010 09/15/2009, 03/17, 03/31/2007, Additional history exists TSH W/FREE T4 REFLEX 09/15/2010 09/15/2009, 07/01/2007, 08/15/2006, Additional history exists RSV VACCINE (1 - 1-dose 75+ series) 2012 DEXA 06/27/2020 06/27/2005 COVID-19 Vaccine ( season) 2024 09/12/2021, 02/17/2021, 01/27/2021 INFLUENZA VACCINE (#1) 2024 , 09/14/2021, 08/17/2020, Additional history exists PHQ-2 (once per calendar year) 2024 DTAP/TDAP/TD IMMUNIZATION (2 - Td or Tdap) 11/19/2026 11/19/2016, 08/10/2010, 08/10/2010, Additional history exists Pneumococcal Vaccine: 50+ Years Completed 09/29/2015, 08/10/2010, 09/05/1994 ZOSTER IMMUNIZATION [...] this topic Medical Devices Implanted Type Area Master Sonar Technician Device Identifier Shelf Expiration Date Model / Serial / Lot Imp Scr Zim 6.5x30mm Acet Cup Self Tap [id number] Implanted:Qty: 1 on 11/29/2019 by Tomas Eckert MD at [facility] Metallic Hardware/An chor Left: Hip [employer] 07/17/[id number] / / [id number] Imp Shell Biom G7 Acetab Pps Carrillo Hole 52mm Sz E [id number] Implanted:Qty: 1 on 11/29/2019 by Tomas Eckert MD at [facility] Total Joint Component/I nsert Left: Hip [employer] 06/25/2029 [id number] / / [id number] Imp Stem Fem Biom Taperloc Hi Offset Type 1 Sz9 [id number] Implanted:Qty: 1 on 11/29/2019 by Tomas Eckert MD at [facility] Total Joint Component/I nsert Left: Hip [employer] 03/23/2029 [id number] / / [id number] Acetabular Liner Neutral, 36mm Head Size, E Liner Size Implanted:Qty: 1 on 11/29/2019 by Tomas Eckert MD at [facility] Left: Hip [employer] 08/27/2024 [id number] / / [id number] Biol[employer] Delta Hip System Modular Ceramic Head, Type 1 Taper, 36mm Head 0 Standard Neck Implanted:Qty: 1 on 11/29/2019 by Tomas Eckert MD at [facility] Left: Hip [employer] 03/22/2029 [id number] / / [id number] Procedures Procedure Name Priority Date/Time Associated Diagnosis [...] TSH 4.59 0.4 - 5.0 mU/L [facility] 09/15/2009 12:2 5 PM CDT 09/15/2009 12:30 PM CDT us Nader Garibay MD LABORATORY Final Resu lt [facility] [address] [place] [address] * (ABNORMAL) A.M.A. LIPID PANEL (09/15/2009 12:25 PM CDT) Cholesterol 197 0 - 200 mg/dL [facility] Comment: LDL Cholesterol is the primary guide to therapy: LDL-cholesterol goal in high risk patients is <100 mg/dL and in very high risk patients is <70 mg/dL. The NCEP recommends further evaluation of: patients with cholesterol <200 mg/dL if additional risk factors are present, cholesterol >240 mg/dL, triglycerides >150 mg/dL, or HDL <40 mg/dL. Triglycerides 150 0 - 150 mg/dL [facility] HDL Cholesterol 45(L) 50 - 110 mg/dL [facility] LDL Cholesterol Calculated 122 0 - 129 mg/dL [facility] VLDL-Cholesterol 30 0 - 30 mg/dL [facility] Cholesterol/HDL Ratio 4.4 0.0 - 5.0 [facility] 09/15/2009 12:2 5 PM CDT 09/15/2009 12:30 PM CDT us Nader Garibay MD LABORATORY Final Resu lt [facility] [address] [place] [address] * DEXA, BONE DENSITY, AXIAL SKEL (06/27/2005) Anatomical Region Laterality Modality Other 06/27/2005 us Isaac Mason SPECIAL IMAGING STUDIES Fin al Result from Last 3 Months or Most Recently Relevant to Health Maintenance Insurance [facility] [employer] MEDICARE Care Teams Flatbed Truck Driver Relationship Specialty Start Date [place] [address] PCP - General Internal Medicine 10/17/17
--- OUTSIDE RECORDS SUMMARY | 2024-11-20 04:10 | XMS_ITS | Continuity of Care Document ---
Author Name NwHIN User [email or web address] llowed Address Unknown Organization Unknown Address Unknown Procedures FILTER APPLIED:Only known Procedures with Onset Date within the last 5 years Procedure Date Procedure Provider Additiona l Information Status RENAL FUNCTION PANEL (14556) Completed COMPLETE CBC W/AUTO DIFF WBC (36021) Completed ASSAY OF URINE CREATININE (75950) Completed ASSAY OF PARATHORMONE (48998) Completed UR ALBUMIN QUANTITATIVE (84854) Completed URINE CULTURE/COLONY COUNT (19627) Completed MICROBE SUSCEPTIBLE YOHANA (21896) Completed URINALYSIS AUTO W/SCOPE (03849) Completed SELF CARE MNGMENT TRAINING (41390) Completed MICROBE SUSCEPTIBLE YOHANA (57991) Completed ASSAY OF PARATHORMONE (94930) Completed ASSAY OF CALCIUM (54406) Completed ASSAY THYROID STIM HORMONE (52001) Completed URINE CULTURE/COLONY COUNT (13326) Completed COMPLETE CBC AUTOMATED (19202) Completed ASSAY OF URINE CREATININE (21354) Completed UR ALBUMIN QUANTITATIVE (90040) Completed URINALYSIS AUTO W/SCOPE (48105) Completed RENAL FUNCTION PANEL (45023) Completed LIPID PANEL (10528) Comp leted METABOLIC PANEL TOTAL CA (21126) Completed ASSAY OF BLOOD/URIC ACID (82176) Completed PT EVAL HIGH COMPLEX 45 MIN (36137) Completed MANUAL THERAPY 1/> REGIONS (33321) Completed THERAPEUTIC EXERCISES (97013) Completed OT EVAL MOD COMPLEX 45 MIN (47894) Completed Encounters FILTER APPLIED:Only known Encounters with Admission Date within the last 5 years Encounter Location Admission Discharge Billing Code Outpatient Phlebotomist Barney pelayo Outpatient Anastacio Anthony Outpatient Mee Alejandra Outpatient Mee Alejandra Outpatient Not A Local Provider Outpatient Charley Velásquez Outpatient Toño German
--- OUTSIDE RECORDS SUMMARY | 2024-11-20 04:10 | XMS_ITS | Encounter Summary ---
Author Organization [facility] Address [address] [place] [address]. [place] [address] Care Team Providers Care Ring Packer Name Role Phone Nader Garibay MD Primary Care Provider +1- [phone] Diane Alejandra MD Primary Care Provider [phone] Encounter Details Date Type Department Care Team (Late st Contact Info) Description 09/29/[address] [phone] Ceferino Rodríguez MD NO INFO AVAILABLE Social History Tobacco Use Types Packs/Day Years Used Date Smoking Tobacco: Never Smokeless Tobacco: Never Alcohol Use Standard Drinks/Week Comments Yes 0 (1 standard drink = 0.6 oz pur e alcohol) 2drinks a month Comments No Sex and Gender Information Value Date Recorded Sex Assigned at Not on file 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 The inés haines called on 05/31/02 and stated that she would be leaving [facility] and asked if it would be okay to p judee her surgery until September. We recommended that she not do this, but the patient left and ca lled us upon her return to [facility]. She is now being admitted to [...] RODRÍGUEZ MD T: 09/2002 17:25 MT: Document: [id number] [place], [place] Name: JOSE NEWMAN VIELKA M HISTORY AND PHYSICAL Page 2 of 2 LCN: SDS DSC: 09/29/2002 [place], [place] Name: MR#: : Admit Date: PrinceTODDANASTASIA NEWMANENE Jocelyn -79 1935 Doctor: CEFERINO RODRÍGUEZ MD HISTORY AND PHYSICAL Page 1 of 2 Electronically filed by Tiffanie Del Castillo 10/01/2002 2:51 PM 00:00 Operative Report-[facility] CEFERINO RODRÍGUEZ) [Entered: 00:00 Management Architect ([facility])] : 39 1st ASS'T: 2nd ASS'T: PRE-OPERATIV E DIAGNOSIS: Postmenopausal vaginal bleeding. POST-OPERATIVE DIAGNOSIS: Postmenopausal vaginal ble eding. OPERATION: Fractional dilation and curettage; diagnostic hysteroscopy. ANESTHESIA: General . PROCEDURE: Vielka Card was taken to the operating room with an I.V. running in the [facility]. She was placed on the operating [...] home. [id number] CEFERINO RODRÍGUEZ MD MT: Document: [id number] [place], [place] Name: VIELKA CARD OPERATIVE REPORT Page 2 of 2 LCN : MS2 DSC: 09/30/2002 [place], [place] Name: MR#: : Procedure Vitor e: PrinceVIELKA ALARCON [id number] 09/29/2002 Doctor: CEFERINO RODRÍGUEZ MD OPERATIVE REPO RT Page 1 of 2 Electronically filed by Cali Felipe 10/05/2002 2:15 PM documented in this encounter Plan of Treatment Not on file documented as of this encounter Visit Diagnoses Not on filedocumented in this encounter Care Teams Ring Packer Relationship Specialty Start Date End Date Nader Garibay MD PCP - General 01/01/02 10/16/17 Diane Alejandra MD [address] [address] PCP - General Internal Medicine 10/17/17 documented as of this encounter
--- OUTSIDE RECORDS SUMMARY | 2024-11-20 04:10 | XMS_ITS | Referral Summary ---
Author Organization [facility] Address [address] [place] [address] Care Team Providers Care Otm Consultant Name Role Phone Elsewhere, Pcp Primary Care Provider Unavailabl e Source Comments Patient records contain information from all sites at [facility]. For routine questions regarding patient records, call [phone] during business hours, M-F 8:00 AM - 5:00 PM Central Time. Record requests for emergency care only can be directed to [phone] at any time.[facility] Encounters Date Type Department Care Team Description 11/11/2024 Orders Only Division of Nephrology and Hypertension in [place], [place] [address] [place] [phone] External, Ordering ProviderEvette 11/11/2024 Clinical Communication Division of Nephrology and Hypertension in [place], [place] [address] [place] [phone] Jose Gayle, RCheikh 11/11/2024 Orders Only Division of Nephrology and Hypertension in [place], [place] [address] [place] [phone] External, Ordering ProviderEvette 10/06/2024 Refill Division of Nephrology and Hypertension in [place], [place] [address] [place] [phone] Maddie Velásquez APRN, C.N.P., M.S. Med Refill [...] fruit extract Active torsemide (DEMADEX) 10 mg tabletIndication s:Hypertensive Chronic Kidney Disease (CKD) Stage 3b Glomerular Filtration Rate (GFR) 30 To 44 Take 1 tablet (10 mg total) by mouth daily. Take an additional 10 mg tablet daily for weight gain of 3 lbs overnight or 5 lbs over 1 week 90 tablet 3 4 11/24/19 25 Active allopurinoL (ZYLOPRIM) 100 mg tabletIndication s:Hypertensive Chronic Kidney Disease (CKD) Stage 3b Glomerular Filtration Rate (GFR) 30 To 44 Take 0.5 tablets (50 mg total) by mouth daily. 45 tablet 3 4 Active DME CPAPIndications: Obstructive Sleep Apnea Adult DME Order 1 each 4 Active lisinopriL 20 mg tabletIndication s:Hypertensive Chronic Kidney Disease (CKD) Stage 3b Glomerular Filtration Rate (GFR) 30 To 44 Take 1 tablet (20 mg total) by mouth daily. 90 tablet 3 4 06/03/20 25 Active dapagliflozin propanediol (Farxiga) 10 mg tabletIndication s:Chronic Kidney Disease (CKD), Stage 3b Glomerular Filtration Rate (GFR) 30 To 44 ([facility]) Take 1 tablet (10 mg total) by mouth daily. 90 tablet 3 4 Active Active Problems Problem Noted Date Diagnosed [...] How often do you attend chur or pentecostalism services? 1 to 4 times per year 03/10/2023 Do you belong to any clubs o r organizations such as adventism groups, unions, fraternal or athletic groups, or [...] Answer Date Recorded PHQ-2 Score 3 03/22/2021 [facility] Occupat ional Health - Occupational Stress [...] or slept in a custodial (including now)? No 03/10/2023 Depression Answer Date [...] AM CDT Legal Sex Female 10:53 AM PRUNE WASHER Gender Identity Female 02/19/2022 7:48 AM CDT [...] (251 lb 5.2 oz) 01/22/2024 1:35 PM PRUNE WASHER Height 160.9 cm (5' 3.35) 06/12/2023 9:45 AM CD T Body Mass Index 44.04 06/12/2023 9:45 AM CDT Plan of Treatment Upcoming Encounters Date Type Department Care Team (Late st Contact Info) Description 11/22/2024 10:45 AM PRUNE WASHER Virtual Visit Division of Nephrology and Hypertension in [place], [place] [address] [place] [phone] Maddie Velásquez APRN, C.N.P., M.S. [address] [place] [phone] Medical Devices Implanted Type Area Real Estate Assessor Device Identifier Shelf Expiration Date Model / [...] Procedure Name Priority Date/Time Associated Diagnosis Comments EXT OUTSIDE LAB TESTS Routine 11/11/2024 9:15 AM PRUNE WASHER URINALYSIS, ROUTINE Routine 11/11/2024 9 :15 AM PRUNE WASHER CBC WITH DIFFERENTIAL, B Routine 11/11/2024 9:15 AM PRUNE WASHER PARATHYROID HORMONE (PTH), S Routine 11/11/2024 9:15 AM PRUNE WASHER RENAL FUNCTION PANEL, S Routine 11/11/2024 9:15 AM PRUNE WASHER from Last 3 Months Results * EXT Outside Lab Tests (11/11/2024 9:15 AM PRUNE WASHER) [facility] EXT Miscellaneous See scanned report [facility] 11/11/2024 9:15 AM PRUNE WASHER Narrative [facility] - 11/15/2024 7:54 AM PRUNE WASHER External results verified in Extract by Lennie Howe on 11/15/2024 at 07:52 AM. Urine culture scanned into chart us Ordering Provider External M.D. LAB BLOOD NON AD D-ON Final Result [facility] [address] [place] [address], [facility] [phone] * Renal Function Panel (11/11/2024 9:15 AM PRUNE WASHER) [facility] EXT Sodium 142 135 - 149 mmol/L SCANNED REPORT EXT Potassium 4.4 3.6 - 5.1 mmol/L SCANNED REPORT EXT Chloride 105 96 - 114 mmol/L SCANNED REPORT EXT CO2 30 20 - 32 mmol/L SCANNED REPORT EXT Anion Gap 7 7 - 15 mEq/L SCANNED REPORT EXT BUN (Blood Urea Nitrogen) 28 7 - 30 mg/dL SCANNED REPORT EXT Creatinine 1.4 0.5 - 1.5 mg/dL SCANNED REPORT EXT Estimated GFR (eGFR) 36 ml/min SCANNED REPORT EXT Calcium, Total 9.6 8.4 - 10.6 mg/dL SCANNED REPORT EXT Glucose 94 60 - 115 mg/dL SCANNED REPORT EXT Albumin 4.4 3.3 - 5.0 g/dL SCANNED REPORT EXT Phosphorus (Inorganic), S 3.6 2.5 - 4.5 mg/dL SCANNED REPORT 11/11/2024 9:15 AM PRUNE WASHER Narrative SCANNED REPORT - 11/11/2024 2:58 PM PRUNE WASHER External results verified in Extract by Lennie Howe on 11/11/2024 at 02:53 PM. us Ordering Provider Emperatriz Alas LAB BLOOD ADD-ON Final Result Performing Organization Address [facility] de Phone Number SCANNED REPORT * (ABNORMAL) Urinalysis, Routine (11/11/2024 9:15 AM PRUNE WASHER) EXT Appearance, Urine Cloudy(A) Clear ML SCANNED REPORT EXT Glucose Qualitative, Urine 1+(A) Negative ML SCANNED REPORT EXT Bilirubin, Urine Negative ML SCANNED REPORT EXT Ketones, POCT, Urine Negative ML SCANNED REPORT EXT Specific Craig, POCT, Urine 1.015 1.000 - 1.030 ML SCANNED REPORT EXT Blood, Urine Negative ML SCANNED REPORT EXT pH, Random, Urine 7.0 5.0 - 8.5 ML SCANNED REPORT EXT Protein, Urine Negative ML SCANNED REPORT EXT Urobilinogen, Urine 0.2 0.2 - 1.0 ML SCANNED REPORT EXT Nitrite, Urine Negative ML SCANNED REPORT EXT Leukocyte Esterase, Urine 1+(A) Negative ML SCANNED REPORT 11/11/2024 9:15 AM PRUNE WASHER Narrative SCANNED REPORT - 11/11/2024 2:58 PM PRUNE WASHER Source result document attached to Order Number [id number] ([id number]) dated 11/11/2024. External results verified in Extract by Lennie Howe on 11/11/2024 at 02:53 PM. See scanned report for all results. us Ordering Provider Emperatriz Alas LAB URINE ORDERA BLES Final Result Performing Organization Address [facility] de Phone Number SCANNED REPORT * CBC with Differential, Blood (11/11/2024 9:15 AM PRUNE WASHER) EXT Leukocytes 6.66 4.50 - 11.00 K/uL SCANNED REPORT EXT RBC 4.25 4.00 - 5.20 m/uL SCANNED REPORT EXT Hemoglobin 12.3 12.0 - 16.0 gm/dL SCANNED REPORT EXT Hematocrit 40.6 33.0 - 51.0 % SCANNED REPORT EXT MCV 96 80 - 100 fL SCANNED REPORT EXT Platelet Count 225 140 - 440 K/uL SCANNED REPORT EXT Neutrophils 4.22 1.7 - 7.0 K/uL SCANNED REPORT EXT Lymphocytes 1.71 0.90 - 2.90 K/uL SCANNED REPORT EXT Monocytes 0.50 0.00 - 0.90 K/UL SCANNED REPORT EXT Eosinophils 0.14 0.00 - 0.50 K/uL SCANNED REPORT EXT Basophils 0.02 0.00 - 0.30 K/uL SCANNED REPORT 11/11/2024 9:15 AM PRUNE WASHER Narrative [facility] - 11/11/2024 2:58 PM PRUNE WASHER Source result document attached to Order Number [id number] ([id number]) dated 11/11/2024. External results verified in Extract by Lennie Howe on 11/11/2024 at 02:53 PM. us Ordering Provider External M.DSharon LAB BLOOD ADD-ON Final Result Performing Organization Address [facility] Co de Phone Number [employer] [facility] NA SCANNED REPORT * (ABNORMAL) Parathyroid Hormone (PTH) (11/11/2024 9:15 AM PRUNE WASHER) Parathyroid Hormone (PTH) 173.5(H) 14.2 - 75.2 pg/mL SCANNED REPORT 11/11/2024 9:15 AM PRUNE WASHER Narrative [facility] - 11/11/2024 2:58 PM PRUNE WASHER Source result document attached to Order Number [id number] ([id number]) dated 11/11/2024. External results verified in Extract by Lennie Howe on 11/11/2024 at 02:53 PM. us Ordering Provider External M.DSharon LAB BLOOD ADD-ON Final Result Performing Organization Address [facility]/ZIP Co de Phone Number [employer] [facility] NA SCANNED REPORT from Last 3 Months Insurance MEDICARE [facility] Care Teams Otm Consultant Relationship Specialty Start Date End Date Elsewhere, Pcp PCP - General Internal Medicine 03/26/22
--- OUTSIDE RECORDS SUMMARY | 2024-11-20 04:10 | XMS_ITS | Encounter Summary ---
Author Organization [facility] Address [address] [place] [address]. [place] [address] Care Team Providers Care Superintendent Storage Area Name Role Phone Diane Alejandra MD Primary Care Provider Encounter Details Date Type Department Care Team (Late st Contact Info) Description 11/22/2019 Orders Only [facility] [address] [facility] [place] [phone] Tomas Eckert MD [facility] [address] [place] [phone] Pre-operative laboratory examination (Primary Dx) Social History Tobacco Use Types Packs/Day Years Used Date Smoking Tobacco: Never Alcohol Use Standard Drinks/Week Comments Yes 0 (1 standard drink = 0.6 oz pur e alcohol) SELDOM Comments No Sex and Gender Information Value Date Recorded Sex Assigned at Not on file Legal Sex Female 3:31 AM DIRECTOR OF CHANNEL MARKETING Gender Identity Not on file Sexual Orientation Not on file Occupation Industry Job Start Date Job End Date Not on file Not on file Not on file Not on file documented as of this encounter Plan of Treatment Not on file documented as of this encounter Results * Methicillin Resist/Sens S. aureus PCR (11/22/2019 9:00 AM DIRECTOR OF CHANNEL MARKETING) Specimen Description Clara 11/22/2019 3:59 PM DIRECTOR OF CHANNEL MARKETING [facility] Methicillin Resist/Sens S. aureus PCR Negative NEG^Negat lilia 11/22/2019 11:25 PM DIRECTOR OF CHANNEL MARKETING [facility] Comment: MRSA Negative: SA Negative MRSA and Staphylococcus aureus target DNA not detected, presumed negative for MRSA and SA colonization or the number of bacteria present may be below the limit of detection for the assay. FDA approved assay performed using [employer] GeneXpert(R) real-time PCR. Nasal structure (body structure) 11/22/2019 9:00 AM DIRECTOR OF CHANNEL MARKETING 11/22/2019 4:01 PM DIRECTOR OF CHANNEL MARKETING Tomas Eckert MD LAB - MICRO GENERAL ORDERABLES Final Result [facility] [address] [place], [place] [id number] [place] [address] [phone] documented in this encounter Visit Diagnoses Diagnosis Pre-operative laboratory examination- Primary Pre-procedural laboratory examination documented in this encounter Care Teams Superintendent Storage Area Relationship Specialty Start Date End Date Diane Alejandra MD [facility] - [address] [address] PCP - General Internal Medicine 10/17/17 documented as of this encounter
--- OUTSIDE RECORDS SUMMARY | 2024-11-20 04:10 | XMS_ITS | Referral Summary ---
Author Organization [facility] Address [address] [place] [address] Care Team Providers Care Math And Science Division Chair Name Role Phone Diane Alejandra MD Primary [...] on file Legal Sex Female 3:31 AM MIND READER Gender Identity Not on file Sexual Orientation Not on file Occupation Industry Job Start Date Job End Date Not on file Not on file Not on file Not on file Last Filed Vital Signs Vital Sign Reading Time Taken Comments Blood Pressure 120/43 12/01/2019 9:50 AM MIND READER Pulse 67 11/29/2019 6:00 PM MIND READER Temperature 36.3 C (97.4 F) 12/01/2019 9:50 AM MIND READER Respiratory Rate 16 12/01/2019 9:50 AM MIND READER Oxygen Saturation 96% 12/01/2019 9:50 AM MIND READER Inhaled Oxygen Concentration - - Weight 108 kg (238 lb) 11/29/2019 8:06 AM MIND READER Height 165.1 cm (5' 5) 11/29/2019 8:06 AM MIND READER Body Mass Index 39.61 11/29/2019 8:06 AM MIND READER Plan of Treatment Not on file Medical Devices Implanted Type Area Head Of Science Device Identifier Shelf Expiration Date Model / Serial / Lot Imp Scr Zim 6.5x30mm Acet Cup Self Tap Implanted:Qty: 1 on 11/29/2019 by Tomas Eckert MD at [facility] Metallic Hardware/An chor Left: Hip [employer] 07/17/[id number] / / [id number] Imp Shell Biom G7 Acetab Pps Carrillo Hole 52mm Sz E [id number] Implanted:Qty: 1 on 11/29/2019 by Tomas Eckert MD at [facility] Total Joint Component/I nsert Left: Hip [employer] 06/25/2029 [id number] / / [id number] Imp Stem Fem Biom Taperloc Hi Offset Type 1 [id number] Implanted:Qty: 1 on 11/29/2019 by Tomas Eckert MD at [facility] Total Joint Component/I nsert Left: Hip [employer] 03/23/2029 [id number] / / [id number] Acetabular Liner Neutral, 36mm Head Size, E Liner Size Implanted:Qty: 1 on 11/29/2019 by Tomas Eckert MD at [facility] Left: Hip [employer] 08/27/2024 [id number] / / [id number] [employer] Delta Hip System Modular Ceramic Head, Type 1 Taper, 36mm Head 0 Standard Neck Implanted:Qty: 1 on 11/29/2019 by Tomas Eckert MD at [facility] Left: Hip [employer] 03/22/2029 [id number] / / [id number] Procedures Procedure Name Priority Date/Time Associated Diagnosis [...] CDT) TSH 4.59 0.4 - 5.0 mU/L [facility] 09/15/2009 12:2 5 PM CDT 09/15/2009 12:30 PM CDT us Nader Garibay MD LABORATORY Final Resu lt [facility] [address] [place] [address] * (ABNORMAL) A.M.A. LIPID PANEL (09/15/2009 12:25 PM CDT) Cholesterol 197 0 - 200 mg/dL [facility] Comment: LDL Cholesterol is the primary guide to therapy: LDL-cholesterol goal in high risk patients is <100 mg/dL and in very high risk patients is <70 mg/dL. The NCEP recommends further evaluation of: patients with cholesterol <200 mg/dL if additional risk factors are present, cholesterol >240 mg/dL, triglycerides >150 mg/dL, or HDL <40 mg/dL. Triglycerides 150 0 - 150 mg/dL [facility] HDL Cholesterol 45(L) 50 - 110 mg/dL [facility] LDL Cholesterol Calculated 122 0 - 129 mg/dL [facility] VLDL-Cholesterol 30 0 - 30 mg/dL [facility] Cholesterol/HDL Ratio 4.4 0.0 - 5.0 [facility] 09/15/2009 12:2 5 PM CDT 09/15/2009 12:30 PM CDT us Nader Garibay MD LABORATORY Final Resu lt [facility] [address] [place] [address] * DEXA, BONE DENSITY, AXIAL SKEL (06/27/2005) Anatomical Region Laterality Modality Other 06/27/2005 us Isaac Mason SPECIAL IMAGING STUDIES Fin al Result from Last 3 Months or Most Recently Relevant to Health Maintenance Insurance [facility] [employer] [place] [phone] Care Teams Math And Science Division Chair Relationship Specialty Start Date End Date Diane Alejandra MD [address] [address] PCP - General Internal Medicine 10/17/17
--- OUTSIDE RECORDS SUMMARY | 2024-11-20 04:10 | XMS_ITS | Clinical Summary ---
Author Organization [facility] Address [address] [place] [address] Care Team Providers Care Tablet Coater Name Role Phone Elsewhere, Pcp Primary Care Provider Unavailabl e Source Comments Patient records contain information from all sites at [facility]. For routine questions regarding patient records, call [phone] during business hours, M-F 8:00 AM - 5:00 PM Central Time. Record requests for emergency care only can be directed to [phone] at any time.[facility] Allergies Active Allergy Reactions Criticality Noted Date [...] mouth daily. 90 tablet 3 4 06/03/20 Active dapagliflozin propanediol (Farxiga) 10 mg tabletIndication [...] Only Division of Nephrology and Hypertension in [place], [place] [address] [place] [address] External, Ordering ProviderEvette 11/11/2024 Clinical Communication Division of Nephrology and Hypertension in [place], [place] [address] [place] [address] Jose Gayle R.N. 11/11/2024 Orders Only Division of Nephrology and Hypertension in [place], [place] [address] [place] [address] External, Ordering ProviderEvette 10/06/2024 Refill Division of Nephrology and Hypertension in [place], [place] [address] [place] [address] Maddie Velásquez APRN, C.N.P., M.S. Med Refill [...] History Relation Name Comments Lung cancer Father edmayra rtesch Stroke Mother chuckie romeo Ovarian cancer Sister 1 pat dtamond Kidney cancer Sister 2 allen [place] kidney rem sherice Ovarian cancer Sister 2 allen [place] Ovarian cancer Sister 3 [facility] Relation Name Status Comments Father edmayra rtesch Mother chuckie romeo Sister 1 pat dtamond Sister 2 allen [place] Sister 3 [facility] Social History Tobacco Use Types Packs/Day Years [...] often do you attend chur ch or episcopal services? 1 to 4 times per year 03/10/2023 Do you belong to any clubs o r organizations such as muslim groups, unions, fraternal [...] Answer Date Recorded PHQ-2 Score 3 03/22/2021 [facility] - Occupational Stress Questionnaire Answer Date Recorded [...] AM CDT Legal Sex Female 10:53 AM POWER BALLAST MACHINE OPERATOR Gender Identity Female 02/19/2022 7:48 [...] (251 lb 5.2 oz) 01/22/2024 1:35 PM POWER BALLAST MACHINE OPERATOR Height 160.9 cm (5' 3.35) 06/12/2023 9:45 AM CD T Body Mass Index 44.04 06/12/2023 9:45 AM CDT Plan of Treatment Upcoming Encounters Date Type Department Care Team (Late st Contact Info) Description 11/22/2024 10:45 AM POWER BALLAST MACHINE OPERATOR Virtual Visit Division of Nephrology and Hypertension in [place], [place] [address] [place] [address] Maddie Velásquez APRN, C.N.P., M.S. [address] [place] [address] Health Maintenance Due Date Last Done Comments Hepatitis B Vaccines (3 of 3 - 19+ 3-dose series) 06/11/2005 01/15/2005, 12/12/2004 RSV vaccine - (32-36 weeks) or 60+ years (1 - 1-dose 75+ series) 2012 COVID-19 Vaccine ( - 2023- season) 2024 09/12/2021, 02/17/2021, 01/27/2021 Influenza Vaccine (#1) 2024 3, 08/27/2022, 09/12/2021, Additional history exists Depression Screening (Annual PHQ-2) 11/17/2024 Fall Risk Screen (Annual) 11/17/2024 Creatinine Level (Kidney Function Test) 11/11/2025 11/11/2024, 05/25/2024, 01/10/2024, Additional history exists Potassium Level 11/11/2025 11/11/2024, 07/0 07/2024, 01/10/2024, Additional history exists Sodium Level 11/11/2025 11/11/2024, 07/0 07/2024, 01/10/2024, Additional history exists DTaP,Tdap,and Td Vaccines (2 - Td or Tdap) 11/19/2026 11/19/2016, 08/10/2010, 01/24/2000 Pneumococcal vaccine (50+ years) Completed 09/29/2015, 08/10/2010, 09/05/1994 Zoster Vaccines Completed 10/29/2018, 02/2018, 08/13/2012 IPV Vaccines Aged Out No longer eligi ble based on patient's age to complete this topic Medical Devices Implanted Type Area Store Hand Device Identifier Shelf Expiration Date Model / [...] OUTSIDE LAB TESTS Routine 11/11/2024 9:15 AM POWER BALLAST MACHINE OPERATOR URINALYSIS, ROUTINE Routine 11/11/2024 9 :15 AM POWER BALLAST MACHINE OPERATOR CBC WITH DIFFERENTIAL, B Routine 11/11/2024 9:15 AM POWER BALLAST MACHINE OPERATOR PARATHYROID HORMONE (PTH), S Routine 11/11/2024 9:15 AM POWER BALLAST MACHINE OPERATOR RENAL FUNCTION PANEL, S Routine 11/11/2024 9:15 AM POWER BALLAST MACHINE OPERATOR from Last 3 Months Results * EXT Outside Lab Tests (11/11/2024 9:15 AM POWER BALLAST MACHINE OPERATOR) [facility] EXT Miscellaneous See scanned report [facility] 11/11/2024 9:15 AM POWER BALLAST MACHINE OPERATOR Narrative [facility] - 11/15/2024 7:54 AM POWER BALLAST MACHINE OPERATOR External results verified in Extract by Lennie Howe on 11/15/2024 at 07:52 AM. Urine culture scanned into chart us Ordering Provider Emperatriz Alas LAB BLOOD NON AD D-ON Final Result [facility] [address] [place] [address], [facility] [phone] * Renal Function Panel (11/11/2024 9:15 AM POWER BALLAST MACHINE OPERATOR) [facility] EXT Sodium 142 135 - 149 mmol/L [...] 4.5 mg/dL SCANNED REPORT 11/11/2024 9:15 AM POWER BALLAST MACHINE OPERATOR Narrative SCANNED REPORT - 11/11/2024 2:58 PM POWER BALLAST MACHINE OPERATOR External results verified in Extract by Lennie Howe on 11/11/2024 at 02:53 PM. us Ordering Provider External Evette LAB BLOOD ADD-ON Final Result Performing Organization Address [facility] Co de Phone Number SCANNED REPORT * (ABNORMAL) Urinalysis, Routine (11/11/2024 9:15 AM POWER BALLAST MACHINE OPERATOR) Pathologist [facility] EXT Appearance, Urine Cloudy(A) Clear ML SCANNED REPORT EXT Glucose Qualitative, Urine 1+(A) Negative ML SCANNED REPORT EXT Bilirubin, Urine Negative ML SCANNED REPORT EXT Ketones, POCT, Urine Negative ML SCANNED REPORT EXT Specific [place], POCT, Urine 1.015 1.000 - 1.030 ML SCANNED REPORT EXT Blood, Urine Negative ML SCANNED REPORT EXT pH, Random, Urine 7.0 5.0 - 8.5 ML SCANNED REPORT EXT Protein, Urine Negative ML SCANNED REPORT EXT Urobilinogen, Urine 0.2 0.2 - 1.0 ML SCANNED REPORT EXT Nitrite, Urine Negative ML SCANNED REPORT EXT Leukocyte Esterase, Urine 1+(A) Negative ML SCANNED REPORT 11/11/2024 9:15 AM POWER BALLAST MACHINE OPERATOR Narrative SCANNED REPORT - 11/11/2024 2:58 PM POWER BALLAST MACHINE OPERATOR Source result document attached to Order Number [id number] ([id number]) dated 11/11/2024. External results verified in Extract by Lennie Howe on 11/11/2024 at 02:53 PM. See scanned report for all results. us Ordering Provider External Evette LAB URINE ORDERA BLES Final Result Performing Organization Address [facility] de Phone Number SCANNED REPORT * CBC with Differential, Blood (11/11/2024 9:15 AM POWER BALLAST MACHINE OPERATOR) Pathologist [facility] EXT Leukocytes 6.66 4.50 - 11.00 K/uL [...] 0.30 K/uL SCANNED REPORT 11/11/2024 9:15 AM POWER BALLAST MACHINE OPERATOR Narrative [facility] - 11/11/2024 2:58 PM POWER BALLAST MACHINE OPERATOR Source result document attached to Order Number [id number] ([id number]) dated 11/11/2024. External results verified in Extract by Lennie Howe on 11/11/2024 at 02:53 PM. us Ordering Provider External Evette LAB BLOOD ADD-ON Final Result Performing Organization Address [facility]/ZIP Co de Phone Number [facility] NA SCANNED REPORT * (ABNORMAL) Parathyroid Hormone (PTH) (11/11/2024 9:15 AM POWER BALLAST MACHINE OPERATOR) Parathyroid Hormone (PTH) 173.5(H) 14.2 - 75.2 pg/mL SCANNED REPORT 11/11/2024 9:15 AM POWER BALLAST MACHINE OPERATOR Narrative [facility] - 11/11/2024 2:58 PM POWER BALLAST MACHINE OPERATOR Source result document attached to Order Number [id number] ([id number]) dated 11/11/2024. External results verified in Extract by Lennie Howe on 11/11/2024 at 02:53 PM. us Ordering Provider External Ev[facility] LAB BLOOD ADD-ON Final Result Performing Organization Address [facility]/ZIP Co de Phone Number [facility] NA SCANNED REPORT from Last 3 Months Insurance MEDICARE [facility] Care Teams Tablet Coater Relationship Specialty Start Date End Date Elsewhere, Pcp PCP - General Internal Medicine 03/26/22
--- OUTSIDE RECORDS SUMMARY | 2024-11-20 04:11 | XMS_ITS | Encounter Summary ---
Author Organization [facility] Address [address] [place] [address] Care Team Providers Care National Stormwater Leader Name Role Phone Elsewhere, Pcp Primary Care Provider Unavailabl e Reason for Visit * Reason Comments Med Refill Priority 2 Encounter Details Date Type Department Care Team (Late st Contact Info) Description 10/06/2024 Refill Division of Nephrology and Hypertension in [place], [place] [address] [place] [phone] Maddie Velásquez, RYANN, C.N.P., M.S. [address] [place] [phone] Med Refill (Priority 2) Social History Tobacco [...] How often do you attend chur or holiness services? 1 to 4 times per year 03/10/2023 Do you belong to any clubs o r organizations such as denominational groups, unions, fraternal [...] Answer Date Recorded PHQ-2 Score 3 03/22/2021 [facility] - Occupational [...] or slept in a intermediate (including now)? No 03/10/2023 Depression Answer Date [...] AM CDT Legal Sex Female 10:53 AM ELECTRONICS TECHNOLOGY DEPARTMENT CHAIR Gender Identity Female 02/19/2022 7:48 AM CDT Sexual Orientation Straight 02/19/2022 7: 48 AM CDT documented as of this encounter Plan of Treatment Upcoming Encounters Date Type Department Care Team (Late st Contact Info) Description 11/22/2024 10:45 AM ELECTRONICS TECHNOLOGY DEPARTMENT CHAIR Virtual Visit Division of Nephrology and Hypertension in [place], [place] [address] [place] [address] Maddie Velásquez APRN, C.N.P., M.S. [address] [place] [address] documented as of this encounter Visit Diagnoses Diagnosis Chronic Kidney Disease (CKD), Stage 3b Glomerular Filtration Rate (GFR) 30 To 44 (HCC) Chronic Kidney Disease Stage 4 Glomerular Filtration Rate 15-29 (HCC)- Primary documented in this encounter Additional Health Concerns Assessment Noted Time PHQ-9 Depression Total Score: 15 021 12:16 PM CDT documented as of this encounter Care Teams National Stormwater Leader Relationship Specialty Start Date End Date Elsewhere, Pcp PCP - General Internal Medicine 03/26/22 documented as of this encounter
--- OUTSIDE RECORDS SUMMARY | 2024-11-20 04:11 | XMS_ITS | Encounter Summary ---
Author Organization [facility] Address [address] [place] [address] Care Team Providers Care Superintendent System Operation Name Role Phone Elsewhere, Pcp Primary Care Provider Unavailabl e Encounter Details Date Type Department Care Team (Late st Contact Info) Description 11/11/2024 Orders Only Division of Nephrology and Hypertension in [place], [place] [address] [place] [address] External, Ordering ProviderEvette Social History Tobacco Use Types Packs/Day Years [...] often do you attend chur ch or evangelical services? 1 to 4 times per year 03/10/2023 Do you belong to any clubs o r organizations such as islam groups, unions, fraternal [...] Answer Date Recorded PHQ-2 Score 3 03/22/2021 [facility] - Occupational [...] or slept in a long-term (including now)? No 03/10/2023 Depression Answer Date [...] AM CDT Legal Sex Female 10:53 AM JAVA JSF DEVELOPER Gender Identity Female 02/19/2022 7:48 AM CDT Sexual Orientation Straight 02/19/2022 7: 48 AM CDT documented as of this encounter Plan of Treatment Upcoming Encounters Date Type Department Care Team (Late st Contact Info) Description 11/22/2024 10:45 AM JAVA JSF DEVELOPER Virtual Visit Division of Nephrology and Hypertension in [place], [place] [address] [place] [address] Maddie Velásquez APRN, C.N.P., M.S. [address] [place] [address] documented as of this encounter Procedures Procedure Name Priority Date/Time Associated Diagnosis Comments EXT OUTSIDE LAB TESTS Routine 11/11/2024 9:15 AM JAVA JSF DEVELOPER documented in this encounter Results * EXT Outside Lab Tests (11/11/2024 9:15 AM JAVA JSF DEVELOPER) EXT Miscellaneous See scanned report [facility] 11/11/2024 9:15 AM JAVA JSF DEVELOPER Narrative [facility] - 11/15/2024 7:54 AM JAVA JSF DEVELOPER External results verified in Extract by Lennie Howe on 11/15/2024 at 07:52 AM. Urine culture scanned into chart us Ordering Provider External M.D. LAB BLOOD NON AD D-ON Final Result [facility] [address] [place] [address] documented in this encounter Visit Diagnoses Not on filedocumented in this encounter Additional Health Concerns Assessment Noted Time PHQ-9 Depression Total Score: 15 021 12:16 PM CDT documented as of this encounter Care Teams Superintendent System Operation Relationship Specialty Start Date End Date Elsewhere, Pcp PCP - General Internal Medicine 03/26/22 documented as of this encounter
--- OUTSIDE RECORDS SUMMARY | 2024-11-20 04:11 | XMS_ITS | Encounter Summary ---
Author Organization [facility] Address [address] [place] [address] Care Team Providers Care Freight Weigher Name Role Phone Elsewhere, Pcp Primary Care Provider Unavailabl e Encounter Details Date Type Department Care Team (Late st Contact Info) Description 11/11/2024 Clinical Communication Division of Nephrology and Hypertension in [place], [place] [address] [place] [phone] Jose Gayle R.N. [address] [place] [phone] Social History Tobacco Use Types Packs/Day Years [...] often do you attend chur ch or faith services? 1 to 4 times per year 03/10/2023 Do you belong to any clubs o r organizations such as jehovah's witness groups, unions, [...] Answer Date Recorded PHQ-2 Score 3 03/22/2021 [facility] - Occupational Stress Questionnaire Answer Date Recorded [...] AM CDT Legal Sex Female 10:53 AM CLAM SHUCKING MACHINE TENDER Gender Identity Female 02/19/2022 7:48 AM CDT Sexual Orientation Straight 02/19/2022 7: 48 AM CDT documented as of this encounter Plan of Treatment Upcoming Encounters Date Type Department Care Team (Late st Contact Info) Description 11/22/2024 10:45 AM CLAM SHUCKING MACHINE TENDER Virtual Visit Division of Nephrology and Hypertension in [place], [place] [address] [place] [address] Maddie Velásquez APRN, C.N.P., M.S. [address] [place] [address] documented as of this encounter Visit Diagnoses Not on filedocumented in this encounter Additional Health Concerns Assessment Noted Time PHQ-9 Depression Total Score: 15 021 12:16 PM CDT documented as of this encounter Care Teams Freight Weigher Relationship Specialty Start Date End Date Elsewhere, Pcp PCP - General Internal Medicine 03/26/22 documented as of this encounter
--- OUTSIDE RECORDS SUMMARY | 2024-11-20 04:11 | XMS_ITS ---
Author Organization [facility] Address [address] [place] [address] Care Team Providers Care Carpenters Helper Name Role Phone Unavailable Unavailable Unavailable Surgery Details Not on file Complications Check Surgery Details section. Procedure Estimated Blood Loss Check Surgery Details section. Procedure Findings Check Surgery Details section. Procedure Specimens Taken Check Surgery Details section.
--- OUTSIDE RECORDS SUMMARY | 2024-11-20 04:11 | XMS_ITS | Encounter Summary ---
Author Organization [facility] Address [address] [place] [address] Care Team Providers Care Delivery Stock Clerk Name Role Phone Elsewhere, Pcp Primary Care Provider Unavailabl e Encounter Details Date Type Department Care Team (Late st Contact Info) Description 11/11/2024 Orders Only Division of Nephrology and Hypertension in [place], [place] [address] [place] [address] External, Ordering ProviderEvette Social History Tobacco Use [...] often do you attend chur ch or orthodox services? 1 to 4 times per year 03/10/2023 Do you belong to any clubs o r organizations such as faith groups, unions, fraternal or athletic groups, or [...] Answer Date Recorded PHQ-2 Score 3 03/22/2021 [facility] - Occupational [...] AM CDT Legal Sex Female 10:53 AM BAKERY WORKER Gender Identity Female 02/19/2022 7:48 AM CDT Sexual Orientation Straight 02/19/2022 7: 48 AM CDT documented as of this encounter Plan of Treatment Upcoming Encounters Date Type Department Care Team (Late st Contact Info) Description 11/22/2024 10:45 AM BAKERY WORKER Virtual Visit Division of Nephrology and Hypertension in [place], [place] [address] [place] [address] Maddie Velásquez APRN, C.N.P., M.S. [address] [place] [address] documented as of this encounter Procedures Procedure Name Priority Date/Time Associated Diagnosis Comments RENAL FUNCTION PANEL, S Routine 11/11/2024 9:15 AM BAKERY WORKER URINALYSIS, ROUTINE Routine 11/11/2024 9 :15 AM BAKERY WORKER CBC WITH DIFFERENTIAL, B Routine 11/11/2024 9:15 AM BAKERY WORKER PARATHYROID HORMONE (PTH), S Routine 11/11/2024 9:15 AM BAKERY WORKER documented in this encounter Results * (ABNORMAL) Urinalysis, Routine (11/11/2024 9:15 AM BAKERY WORKER) EXT Appearance, Urine Cloudy(A) Clear ML SCANNED REPORT EXT Glucose Qualitative, Urine 1+(A) Negative ML SCANNED REPORT EXT Bilirubin, Urine Negative ML SCANNED REPORT EXT Ketones, POCT, Urine Negative ML SCANNED REPORT EXT Specific [place], POCT, Urine 1.015 1.000 - 1.030 ML SCANNED REPORT EXT Blood, Urine Negative ML SCANNED REPORT EXT pH, Random, Urine 7.0 5.0 - 8.5 ML SCANNED REPORT EXT Protein, Urine Negative ML SCANNED REPORT EXT Urobilinogen, Urine 0.2 0.2 - 1.0 ML SCANNED REPORT EXT Nitrite, Urine Negative ML SCANNED REPORT EXT Leukocyte Esterase, Urine 1+(A) Negative ML SCANNED REPORT 11/11/2024 9:15 AM BAKERY WORKER Narrative SCANNED REPORT - 11/11/2024 2:58 PM BAKERY WORKER Source result document attached to Order Number [id number] ([id number]) dated 11/11/2024. External results verified in Extract by Lennie Howe on 11/11/2024 at 02:53 PM. See scanned report for all results. us Ordering Provider External Evette LAB URINE ORDERA BLES Final Result SCANNED REPORT * CBC with Differential, Blood (11/11/2024 9:15 AM BAKERY WORKER) Pathologist [facility] EXT Leukocytes 6.66 4.50 - 11.00 K/uL [...] 0.30 K/uL SCANNED REPORT 11/11/2024 9:15 AM BAKERY WORKER Narrative [facility] - 11/11/2024 2:58 PM BAKERY WORKER Source result document attached to Order Number [id number] ([id number]) dated 11/11/2024. External results verified in Extract by Lennie Howe on 11/11/2024 at 02:53 PM. us Ordering Provider Emperatriz Alas LAB BLOOD ADD-ON Final Result Performing Organization Address [facility] Co de Phone Number [facility] LOCATION GROUP NA SCANNED REPORT * (ABNORMAL) Parathyroid Hormone (PTH) (11/11/2024 9:15 AM BAKERY WORKER) Parathyroid Hormone (PTH) 173.5(H) 14.2 - 75.2 pg/mL SCANNED REPORT 11/11/2024 9:15 AM BAKERY WORKER Narrative [facility] - 11/11/2024 2:58 PM BAKERY WORKER Source result document attached to Order Number [id number] ([id number]) dated 11/11/2024. External results verified in Extract by Lennie Howe on 11/11/2024 at 02:53 PM. us Ordering Provider Emperatriz Alas LAB BLOOD ADD-ON Final Result [facility] [place] [facility] NA SCANNED REPORT * Renal Function Panel (11/11/2024 9:15 AM BAKERY WORKER) EXT Sodium 142 135 - 149 mmol/L [...] 4.5 mg/dL SCANNED REPORT 11/11/2024 9:15 AM BAKERY WORKER Narrative SCANNED REPORT - 11/11/2024 2:58 PM BAKERY WORKER External results verified in Extract by Lennie Howe on 11/11/2024 at 02:53 PM. us Ordering Provider External M.D. LAB BLOOD ADD-ON Final Result Performing Organization Address City/[facility] Co de Phone Number SCANNED REPORT documented in this encounter Visit Diagnoses Not on filedocumented in this encounter Additional Health Concerns Assessment Noted Time PHQ-9 Depression Total Score: 15 021 12:16 PM CDT documented as of this encounter Care Teams Delivery Stock Clerk Relationship Specialty Start Date End Date Elsewhere, Pcp PCP - General Internal Medicine 03/26/22 documented as of this encounter
--- OUTSIDE RECORDS SUMMARY | 2024-11-20 04:11 | XMS_ITS ---
Author Organization [facility] Address [address] [place] [address] Care Team Providers Care Full Stack Php Developer Name Role Phone Elsewhere, Pcp Primary Care Provider Unavailabl e Kidney Title I Instructional Assistant Program Status:Enrolled (Active) Start date:12/25/2023 Enrollment date:01/22/2024 Enrollment reason:Referred by provider Current support & services provided:Stage 3b Case Team Name Relationship Phone Juan Carlos Finney R.N. Registered Nurse [phone] Continued Care and Services Coordination
--- OUTSIDE RECORDS SUMMARY | 2024-11-20 04:33 | XMS_ITS | Clinical Summary ---
Author Organization [facility] Address [address] [place] [address] Care Team Providers Care Plate Corrector Name Role Phone Elsewhere, Pcp Primary Care Provider Unavailabl e Source Comments Patient records contain information from all sites at [facility]. For routine questions regarding patient records, call [phone] during business hours, M-F 8:00 AM - 5:00 PM Central Time. Record requests for emergency care only can be directed to [phone] at any time.[facility] Allergies Active Allergy Reactions Criticality Noted [...] Only Division of Nephrology and Hypertension in [place], [place] [address] [place] [address] External, Ordering ProviderEvette 11/11/2024 Clinical Communication Division of Nephrology and Hypertension in [place], [place] [address] [place] [address] Jose Gayle R.N. 11/11/2024 Orders Only Division of Nephrology and Hypertension in [place], [place] [address] [place] [address] External, Ordering ProviderEvette 10/06/2024 Refill Division of Nephrology and Hypertension in [place], [place] [address] [place] [address] Maddie Velásquez APRN, C.N.P., M.S. Med Refill [...] allen flanagam Ovarian cancer Sister 3 [facility] Relation Name Status Comments Father edmayra rtesch Mother chuckie romeo Sister 1 pat dtamond Sister 2 allen adamegam Sister 3 [facility] Social History Tobacco Use Types [...] often do you attend chur ch or advent services? 1 to 4 times per year 03/10/2023 Do you belong to any clubs o r organizations such as adventist groups, unions, fraternal or athletic groups, or [...] Answer Date Recorded PHQ-2 Score 3 03/22/2021 [facility] Occup[facility] ional [facility] - Occupational Stress Questionnaire Answer Date [...] a [place] [facility] [place] facility (including now)? No 03/10/2023 Depression Answer Date [...] AM CDT Legal Sex Female 10:53 AM MECHANICAL PIPING DESIGNER Gender Identity Female 02/19/2022 7:48 AM CDT [...] (251 lb 5.2 oz) 01/22/2024 1:35 PM MECHANICAL PIPING DESIGNER Height 160.9 cm (5' 3.35) 06/12/2023 9:45 AM CD T Body Mass Index 44.04 06/12/2023 9:45 AM CDT Plan of Treatment Upcoming Encounters Date Type Department Care Team (Late st Contact Info) Description 11/22/2024 10:45 AM MECHANICAL PIPING DESIGNER Virtual Visit Division of Nephrology and Hypertension in [place], [place] [address] [place] [address] Maddie Velásquez APRN, C.N.P., M.S. [address] [place] [address] Health Maintenance Due Date Last Done Comments [...] this topic Medical Devices Implanted Type Area Pigment And Lacquer Mixer Device Identifier Shelf Expiration Date Model / [...] OUTSIDE LAB TESTS Routine 11/11/2024 9:15 AM MECHANICAL PIPING DESIGNER URINALYSIS, ROUTINE Routine 11/11/2024 9 :15 AM MECHANICAL PIPING DESIGNER CBC WITH DIFFERENTIAL, B Routine 11/11/2024 9:15 AM MECHANICAL PIPING DESIGNER PARATHYROID HORMONE (PTH), S Routine 11/11/2024 9:15 AM MECHANICAL PIPING DESIGNER RENAL FUNCTION PANEL, S Routine 11/11/2024 9:15 AM MECHANICAL PIPING DESIGNER from Last 3 Months Results * EXT Outside Lab Tests (11/11/2024 9:15 AM MECHANICAL PIPING DESIGNER) [facility] EXT Miscellaneous See scanned report [facility] 11/11/2024 9:15 AM MECHANICAL PIPING DESIGNER Narrative [facility] - 11/15/2024 7:54 AM MECHANICAL PIPING DESIGNER External results verified in Extract by Lennie Howe on 11/15/2024 at 07:52 AM. Urine culture scanned into chart us Ordering Provider Emperatriz Alas LAB BLOOD NON AD D-ON Final Result [facility] [address] [place] [address], [facility] [phone] * Renal Function Panel (11/11/2024 9:15 AM MECHANICAL PIPING DESIGNER) [facility] EXT Sodium 142 135 - 149 [...] 4.5 mg/dL SCANNED REPORT 11/11/2024 9:15 AM MECHANICAL PIPING DESIGNER Narrative SCANNED REPORT - 11/11/2024 2:58 PM MECHANICAL PIPING DESIGNER External results verified in Extract by Lennie Howe on 11/11/2024 at 02:53 PM. us Ordering Provider External Evette LAB BLOOD ADD-ON Final Result Performing Organization Address [facility] Co de Phone Number SCANNED REPORT * (ABNORMAL) Urinalysis, Routine (11/11/2024 9:15 AM MECHANICAL PIPING DESIGNER) Pathologist [facility] EXT Appearance, Urine Cloudy(A) Clear ML SCANNED REPORT EXT Glucose Qualitative, Urine 1+(A) Negative ML SCANNED REPORT EXT Bilirubin, Urine Negative ML SCANNED REPORT EXT Ketones, POCT, Urine Negative ML SCANNED REPORT EXT Specific [place], POCT, Urine 1.015 1.000 - 1.030 ML SCANNED REPORT EXT Blood, Urine Negative ML SCANNED REPORT EXT pH, Random, Urine 7.0 5.0 - 8.5 ML SCANNED REPORT EXT Protein, Urine Negative ML SCANNED REPORT EXT Urobilinogen, Urine 0.2 0.2 - 1.0 ML SCANNED REPORT EXT Nitrite, Urine Negative ML SCANNED REPORT EXT Leukocyte Esterase, Urine 1+(A) Negative ML SCANNED REPORT 11/11/2024 9:15 AM MECHANICAL PIPING DESIGNER Narrative SCANNED REPORT - 11/11/2024 2:58 PM MECHANICAL PIPING DESIGNER Source result document attached to Order Number [id number] ([id number]) dated 11/11/2024. External results verified in Extract by Lennie Howe on 11/11/2024 at 02:53 PM. See scanned report for all results. us Ordering Provider External Evette LAB URINE ORDERA BLES Final Result Performing Organization Address [facility] de Phone Number SCANNED REPORT * CBC with Differential, Blood (11/11/2024 9:15 AM MECHANICAL PIPING DESIGNER) Pathologist [facility] EXT Leukocytes 6.66 4.50 - 11.00 K/uL [...] 0.30 K/uL SCANNED REPORT 11/11/2024 9:15 AM MECHANICAL PIPING DESIGNER Narrative [facility] [place] [facility] - 11/11/2024 2:58 PM MECHANICAL PIPING DESIGNER Source result document attached to Order Number [id number] ([id number]) dated 11/11/2024. External results verified in Extract by Lennie Howe on 11/11/2024 at 02:53 PM. us Ordering Provider External Evette LAB BLOOD ADD-ON Final Result Performing Organization Address [facility]/ZIP Co de Phone Number [facility] LOCATION GROUP NA SCANNED REPORT * (ABNORMAL) Parathyroid Hormone (PTH) (11/11/2024 9:15 AM MECHANICAL PIPING DESIGNER) Parathyroid Hormone (PTH) 173.5(H) 14.2 - 75.2 pg/mL SCANNED REPORT 11/11/2024 9:15 AM MECHANICAL PIPING DESIGNER Narrative [facility] [place] [facility] - 11/11/2024 2:58 PM MECHANICAL PIPING DESIGNER Source result document attached to Order Number [id number] ([id number]) dated 11/11/2024. External results verified in Extract by Lennie Howe on 11/11/2024 at 02:53 PM. us Ordering Provider External Evette LAB BLOOD ADD-ON Final Result Performing Organization Address [facility]/ZIP Co de Phone Number [facility] LOCATION GROUP NA SCANNED REPORT from Last 3 Months Insurance MEDICARE [facility] Care Teams Plate Corrector Relationship Specialty Start Date End Date Elsewhere, Pcp PCP - General Internal Medicine 03/26/22
--- OUTSIDE RECORDS SUMMARY | 2024-11-20 04:33 | XMS_ITS | Clinical Summary ---
Author Organization [facility] Address [address] [place] [address] Care Team Providers Care Feed Crusher Operator Name Role Phone Diane Alejandra MD Primary Care Provider [phone] Allergies Active Allergy Reactions Criticality Noted Date [...] ; AGE 89 Heart Disease Paternal Grandfather MS Cancer Paternal Grandmother OVARIAN Cancer Sister 1 [...] on file Legal Sex Female 3:31 AM SALESPERSON BURIAL PLOTS Gender Identity Not on file Sexual Orientation Not on file Occupation Industry Job Start Date Job End Date Not on file Not on file Not on file Not on file Last Filed Vital Signs Vital Sign Reading Time Taken Comments Blood Pressure 120/43 12/01/2019 9:50 AM SALESPERSON BURIAL PLOTS Pulse 67 11/29/2019 6:00 PM SALESPERSON BURIAL PLOTS Temperature 36.3 C (97.4 F) 12/01/2019 9:50 AM SALESPERSON BURIAL PLOTS Respiratory Rate 16 12/01/2019 9:50 AM SALESPERSON BURIAL PLOTS Oxygen Saturation 96% 12/01/2019 9:50 AM SALESPERSON BURIAL PLOTS Inhaled Oxygen Concentration - - Weight 108 kg (238 lb) 11/29/2019 8:06 AM SALESPERSON BURIAL PLOTS Height 165.1 cm (5' 5) 11/29/2019 8:06 AM SALESPERSON BURIAL PLOTS Body Mass Index 39.61 11/29/2019 8:06 AM SALESPERSON BURIAL PLOTS Plan of Treatment Health Maintenance Due Date [...] this topic Medical Devices Implanted Type Area Winder Tender Device Identifier Shelf Expiration Date Model / Serial / Lot Imp Scr Zim 6.5x30mm Acet Cup Self Tap [id number] Implanted:Qty: 1 on 11/29/2019 by Tomas Eckert MD at [facility] Metallic Hardware/An chor Left: Hip [employer] 07/17/202932-6652-246- 30 / / [id number] Imp Shell Biom G7 Acetab Pps Carrillo Hole 52mm Sz E [id number] Implanted:Qty: 1 on 11/29/2019 by Tomas Eckert MD at [facility] Total Joint Component/I nsert Left: Hip [employer] 06/25/2029 [id number] / / [id number] Imp Stem Fem Biom Taperloc Hi Offset Type 1 Sz9 [id number] Implanted:Qty: 1 on 11/29/2019 by Tomas Eckert MD at [facility] Total Joint Component/I nsert Left: Hip [employer] 03/23/2029 [id number] / / [id number] G7 Acetabular Liner Neutral, 36mm Head Size, E Liner Size Implanted:Qty: 1 on 11/29/2019 by Tomas Eckert MD at [facility] Left: Hip [employer] 08/27/2024 [id number] / / [id number] Biolox Delta Hip System Modular Ceramic Head, Type 1 Taper, 36mm Head 0 Standard Neck Implanted:Qty: 1 on 11/29/2019 by Tomas Eckert MD at [facility] Left: Hip [employer] 03/22/2029 [id number] / / [id number] Procedures Procedure Name Priority Date/Time Associated Diagnosis [...] CDT) TSH 4.59 0.4 - 5.0 mU/L [facility] 09/15/2009 12:2 5 PM CDT 09/15/2009 12:30 PM CDT us Nader Garibay MD LABORATORY Final Resu lt [facility] [address] [place] [address] * (ABNORMAL) A.M.A. LIPID PANEL (09/15/2009 12:25 PM CDT) Cholesterol 197 0 - 200 mg/dL [facility] Comment: LDL Cholesterol is the primary guide to therapy: LDL-cholesterol goal in high risk patients is <100 mg/dL and in very high risk patients is <70 mg/dL. The NCEP recommends further evaluation of: patients with cholesterol <200 mg/dL if additional risk factors are present, cholesterol >240 mg/dL, triglycerides >150 mg/dL, or HDL <40 mg/dL. Triglycerides 150 0 - 150 mg/dL [facility] HDL Cholesterol 45(L) 50 - 110 mg/dL [facility] LDL Cholesterol Calculated 122 0 - 129 mg/dL [facility] VLDL-Cholesterol 30 0 - 30 mg/dL [facility] Cholesterol/HDL Ratio 4.4 0.0 - 5.0 [facility] 09/15/2009 12:2 5 PM CDT 09/15/2009 12:30 PM CDT us Nader Garibay MD LABORATORY Final Resu lt [facility] [address] [place] [address] * DEXA, BONE DENSITY, AXIAL SKEL (06/27/2005) Anatomical Region Laterality Modality Other 06/27/2005 us Isaac Mason SPECIAL IMAGING STUDIES Fin al Result from Last 3 Months or Most Recently Relevant to Health Maintenance Insurance [facility] [employer] MEDICARE Care Teams Feed Crusher Operator Relationship Specialty Start Date [place] [address] PCP - General Internal Medicine 10/17/17
--- OUTSIDE RECORDS SUMMARY | 2024-11-20 04:33 | XMS_ITS | Encounter Summary ---
Author Organization [facility] Address [address] [place] [address]. [place] [address] Care Team Providers Care Manager Inspection Name Role Phone Nader Garibay MD Primary Care Provider [phone] Diane Alejandra MD Primary Care Provider [phone] Encounter Details Date Type Department Care Team (Late st Contact Info) Description 07/08/[address] [phone] Isaac Mason Social History Tobacco Use Types Packs/Day Years Used Date Smoking Tobacco: Never Assessed Comments No Sex and Gender Information Value Date Recorded Sex Assigned at Not on file Legal Sex Female 3:31 AM COMPONENT ASSEMBLER SUPERVISOR Gender Identity Not on file Sexual Orientation Not on file documented as of this encounter Plan of Treatment Not on file documented as of this encounter Visit Diagnoses Not on filedocumented in this encounter Care Teams Manager Inspection Relationship Specialty Start Date End Date Nader Garibay MD PCP - General 01/01/02 10/16/17 Diane Alejandra MD [address] [address] PCP - General Internal Medicine 10/17/17 documented as of this encounter
--- OUTSIDE RECORDS SUMMARY | 2024-11-20 04:33 | XMS_ITS | Referral Summary ---
Author Organization [facility] Address [address] [place] [address] Care Team Providers Care Junior Copywriter Name Role Phone Diane Alejandra MD Primary [...] on file Legal Sex Female 3:31 AM LEARNING SUPPORT RESOURCE ROOM TEACHER Gender Identity Not on file Sexual Orientation Not on file Occupation Industry Job Start Date Job End Date Not on file Not on file Not on file Not on file Last Filed Vital Signs Vital Sign Reading Time Taken Comments Blood Pressure 120/43 12/01/2019 9:50 AM LEARNING SUPPORT RESOURCE ROOM TEACHER Pulse 67 11/29/2019 6:00 PM LEARNING SUPPORT RESOURCE ROOM TEACHER Temperature 36.3 C (97.4 F) 12/01/2019 9:50 AM LEARNING SUPPORT RESOURCE ROOM TEACHER Respiratory Rate 16 12/01/2019 9:50 AM LEARNING SUPPORT RESOURCE ROOM TEACHER Oxygen Saturation 96% 12/01/2019 9:50 AM LEARNING SUPPORT RESOURCE ROOM TEACHER Inhaled Oxygen Concentration - - Weight 108 kg (238 lb) 11/29/2019 8:06 AM LEARNING SUPPORT RESOURCE ROOM TEACHER Height 165.1 cm (5' 5) 11/29/2019 8:06 AM LEARNING SUPPORT RESOURCE ROOM TEACHER Body Mass Index 39.61 11/29/2019 8:06 AM LEARNING SUPPORT RESOURCE ROOM TEACHER Plan of Treatment Not on file Medical Devices Implanted Type Area Rn Wound Device Identifier Shelf Expiration Date Model / Serial / Lot Imp Scr Zim 6.5x30mm Acet Cup Self Tap Implanted:Qty: 1 on 11/29/2019 by Tomas Eckert MD at [facility] Metallic Hardware/An chor Left: Hip [employer] 07/17/202909-6754-022- 30 / / [id number] Imp Shell Biom G7 Acetab Pps Carrillo Hole 52mm Sz E [id number] Implanted:Qty: 1 on 11/29/2019 by Tomas Eckert MD at [facility] Total Joint Component/I nsert Left: Hip [employer] 06/25/2029 [id number] / / [id number] Imp Stem Fem Biom Taperloc Hi Offset Type 1 Sz9 [id number] Implanted:Qty: 1 on 11/29/2019 by Tomas Eckert MD at [facility] Total Joint Component/I nsert Left: Hip [employer] 03/23/2029 [id number] / / [id number] G7 Acetabular Liner Neutral, 36mm Head Size, E Liner Size Implanted:Qty: 1 on 11/29/2019 by Tomas Eckert MD at [facility] Left: Hip [employer] 08/27/2024 [id number] / / [id number] Biolox Delta Hip System Modular Ceramic Head, Type 1 Taper, 36mm Head 0 Standard Neck Implanted:Qty: 1 on 11/29/2019 by Tomas Eckert MD at [facility] Left: Hip [employer] 03/22/2029 [id number] / / [id number] Procedures Procedure Name Priority Date/Time Associated Diagnosis [...] CDT) TSH 4.59 0.4 - 5.0 mU/L [facility] 09/15/2009 12:2 5 PM CDT 09/15/2009 12:30 PM CDT us Nader Garibay MD LABORATORY Final Resu lt [facility] [address] [place] [address] * (ABNORMAL) A.M.A. LIPID PANEL (09/15/2009 12:25 PM CDT) Cholesterol 197 0 - 200 mg/dL [facility] Comment: LDL Cholesterol is the primary guide to therapy: LDL-cholesterol goal in high risk patients is <100 mg/dL and in very high risk patients is <70 mg/dL. The NCEP recommends further evaluation of: patients with cholesterol <200 mg/dL if additional risk factors are present, cholesterol >240 mg/dL, triglycerides >150 mg/dL, or HDL <40 mg/dL. Triglycerides 150 0 - 150 mg/dL [facility] HDL Cholesterol 45(L) 50 - 110 mg/dL [facility] LDL Cholesterol Calculated 122 0 - 129 mg/dL [facility] VLDL-Cholesterol 30 0 - 30 mg/dL [facility] Cholesterol/HDL Ratio 4.4 0.0 - 5.0 [facility] 09/15/2009 12:2 5 PM CDT 09/15/2009 12:30 PM CDT us Nader Garibay MD LABORATORY Final Resu lt [facility] [address] [place] [address] * DEXA, BONE DENSITY, AXIAL SKEL (06/27/2005) Anatomical Region Laterality Modality Other 06/27/2005 us Isaac Mason SPECIAL IMAGING STUDIES Fin al Result from Last 3 Months or Most Recently Relevant to Health Maintenance Insurance [employer] MEDICARE Care Teams Junior Copywriter Relationship Specialty Start Date End Date Diane Alejandra MD [address] [address] PCP - General Internal Medicine 10/17/17
--- OUTSIDE RECORDS SUMMARY | 2024-11-20 04:33 | XMS_ITS | Encounter Summary ---
Author Organization [facility] Address [address] [place] [address]. [place] [address] Care Team Providers Care Brand Strategy Manager Name Role Phone Nader Garibay MD Primary Care Provider [phone] Diane Alejandra MD Primary Care Provider [phone] Encounter Details Date Type Department Care Team (Late st Contact Info) Description 09/29/[address] [address] Ceferino Rodríguez MD NO INFO AVAILABLE Social History Tobacco Use Types Packs/Day Years Used Date Smoking Tobacco: Never Smokeless Tobacco: Never Alcohol Use Standard Drinks/Week Comments Yes 0 (1 standard drink = 0.6 oz pur e alcohol) 2drinks a month Comments No Sex and Gender Information Value Date Recorded Sex Assigned at Not on file Legal Sex Female 3:31 AM PIE FILLING MIXER Gender Identity Not on file Sexual Orientation [...] 00:00 History And Physical-CEFERINO MUKHERJEE) [Entered: 00:00 Film Drying Machine Operator ([facility])] : 39 CHIEF COMPLAINT: Post menopausal [...] and that was scheduled for 06/10/02 at [facility]. The inés haines called on 05/31/02 and stated that she would be leaving [facility] and asked if it would be okay to p judee her surgery until September. We recommended that she not do this, but the patient left and ca lled us upon her return to [facility]. 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 POST-OPERATIVE DIAGNOSIS: Postmenopausal vaginal ble eding. OPERATION: Fractional dilation and curettage; diagnostic hysteroscopy. ANESTHESIA: General . PROCEDURE: Vielka Card was taken to the operating room with an I.V. running in the [facility]. She was placed on the operating table [...] home. [id number] CEFERINO RODRÍGUEZ MD MT: Document: [id number] [place], [place] Name: VIELKA CARD OPERATIVE REPORT Page 2 of 2 LCN : MS2 DSC: 09/30/2002 [place], [place] Name: MR#: : Procedure Vitor e: PrinceVIELKA ALARCON [id number] 09/29/2002 Doctor: CEFERINO RODRÍGUEZ MD OPERATIVE REPO RT Page 1 of 2 Electronically filed by Cali Felipe 10/05/2002 2:15 PM documented in this encounter Plan of Treatment Not on file documented as of this encounter Visit Diagnoses Not on filedocumented in this encounter Care Teams Brand Strategy Manager Relationship Specialty Start Date End Date Nader Garibay MD PCP - General 01/01/02 10/16/17 Diane Alejandra MD [address] [address] PCP - General Internal Medicine 10/17/17 documented as of this encounter
--- OUTSIDE RECORDS SUMMARY | 2024-11-20 04:33 | XMS_ITS | Encounter Summary ---
Author Organization [facility] Address [address] [place] [address]. [place] [address] Care Team Providers Care Manager Pediatric Name Role Phone Diane Alejandra MD Primary Care Provider Encounter Details Date Type Department Care Team (Late st Contact Info) Description 11/22/2019 Orders Only [facility] [address] [facility] [place] [phone] Tomas Eckert MD [facility] [address] [place] [phone] Pre-operative laboratory examination (Primary Dx) Social History Tobacco Use Types Packs/Day Years Used Date Smoking Tobacco: Never Alcohol Use Standard Drinks/Week Comments Yes 0 (1 standard drink = 0.6 oz pur e alcohol) SELDOM Comments No Sex and Gender Information Value Date Recorded Sex Assigned at Not on file Legal Sex Female 3:31 AM MEDICAL INSURANCE CLERK Gender Identity Not on file Sexual Orientation Not on file Occupation Industry Job Start Date Job End Date Not on file Not on file Not on file Not on file documented as of this encounter Plan of Treatment Not on file documented as of this encounter Results * Methicillin Resist/Sens S. aureus PCR (11/22/2019 9:00 AM MEDICAL INSURANCE CLERK) Specimen Description Clara 11/22/2019 3:59 PM MEDICAL INSURANCE CLERK [facility] Methicillin Resist/Sens S. aureus PCR Negative NEG^Negat lilia 11/22/2019 11:25 PM MEDICAL INSURANCE CLERK [facility] Comment: MRSA Negative: SA Negative MRSA and Staphylococcus aureus target DNA not detected, presumed negative for MRSA and SA colonization or the number of bacteria present may be below the limit of detection for the assay. FDA approved assay performed using [employer] GeneXpert(R) real-time PCR. Nasal structure (body structure) 11/22/2019 9:00 AM MEDICAL INSURANCE CLERK 11/22/2019 4:01 PM MEDICAL INSURANCE CLERK Tomas Eckert MD LAB - MICRO GENERAL ORDERABLES Final Result [facility] [address] [place], [place] [id number] [place] [address] [address] [phone] documented in this encounter Visit Diagnoses Diagnosis Pre-operative laboratory examination- Primary Pre-procedural laboratory examination documented in this encounter Care Teams Manager Pediatric Relationship Specialty Start Date End Date Diane Alejandra MD [facility] - [address] [address] PCP - General Internal Medicine 10/17/17 documented as of this encounter
--- OUTSIDE RECORDS SUMMARY | 2024-11-20 04:34 | XMS_ITS | Referral Summary ---
Author Organization [facility] Address [address] [place] [address] Care Team Providers Care Master Scheduler Name Role Phone Elsewhere, Pcp Primary Care Provider Unavailabl e Source Comments Patient records contain information from all sites at [facility]. For routine questions regarding patient records, call [phone] during business hours, M-F 8:00 AM - 5:00 PM Central Time. Record requests for emergency care only can be directed to [phone] at any time.[facility] Encounters Date Type Department Care Team Description 11/11/2024 Orders Only Division of Nephrology and Hypertension in [place], [place] [address] [place] [phone] External, Ordering ProviderEvette 11/11/2024 Clinical Communication Division of Nephrology and Hypertension in [place], [place] [address] [place] [phone] Jose Gayle, RCheikh 11/11/2024 Orders Only Division of Nephrology and Hypertension in [place], [place] [address] [place] [phone] External, Ordering ProviderEvette 10/06/2024 Refill Division of Nephrology and Hypertension in [place], [place] [address] [place] [phone] Maddie Velásquez APRN, C.N.P., M.S. Med Refill [...] 30 To 44 ([facility]) Take 1 tablet (10 mg [...] How often do you attend chur or congregational services? 1 to 4 times per year 03/10/2023 Do you belong to any clubs o r organizations such as hinduism groups, unions, fraternal or athletic groups, or [...] Answer Date Recorded PHQ-2 Score 3 03/22/2021 [facility] of Occupat ional Health - Occupational Stress [...] slept in a long term (including now)? No 03/10/2023 Depression Answer Date [...] AM CDT Legal Sex Female 10:53 AM MANAGER DISH Gender Identity Female 02/19/2022 7:48 AM CDT [...] (251 lb 5.2 oz) 01/22/2024 1:35 PM MANAGER DISH Height 160.9 cm (5' 3.35) 06/12/2023 9:45 AM CD T Body Mass Index 44.04 06/12/2023 9:45 AM CDT Plan of Treatment Upcoming Encounters Date Type Department Care Team (Late st Contact Info) Description 11/22/2024 10:45 AM MANAGER DISH Virtual Visit Division of Nephrology and Hypertension in [place], [place] [address] [place] [address] Maddie Velásquez APRN, C.N.P., M.S. [address] [place] [phone] Medical Devices Implanted Type Area Lab Animal Technologist Device Identifier Shelf Expiration Date Model / [...] OUTSIDE LAB TESTS Routine 11/11/2024 9:15 AM MANAGER DISH URINALYSIS, ROUTINE Routine 11/11/2024 9 :15 AM MANAGER DISH CBC WITH DIFFERENTIAL, B Routine 11/11/2024 9:15 AM MANAGER DISH PARATHYROID HORMONE (PTH), S Routine 11/11/2024 9:15 AM MANAGER DISH RENAL FUNCTION PANEL, S Routine 11/11/2024 9:15 AM MANAGER DISH from Last 3 Months Results * EXT Outside Lab Tests (11/11/2024 9:15 AM MANAGER DISH) [facility] EXT Miscellaneous See scanned report [facility] 11/11/2024 9:15 AM MANAGER DISH Narrative [facility] - 11/15/2024 7:54 AM MANAGER DISH External results verified in Extract by Lennie Howe on 11/15/2024 at 07:52 AM. Urine culture scanned into chart us Ordering Provider External M.D. LAB BLOOD NON AD D-ON Final Result [facility] [address] [place] [address], [facility] [phone] * Renal Function Panel (11/11/2024 9:15 AM MANAGER DISH) [facility] EXT Sodium 142 135 - 149 mmol/L [...] 4.5 mg/dL SCANNED REPORT 11/11/2024 9:15 AM MANAGER DISH Narrative SCANNED REPORT - 11/11/2024 2:58 PM MANAGER DISH External results verified in Extract by Lennie Howe on 11/11/2024 at 02:53 PM. us Ordering Provider Emperatriz Alas LAB BLOOD ADD-ON Final Result Performing Organization Address [facility] de Phone Number SCANNED REPORT * (ABNORMAL) Urinalysis, Routine (11/11/2024 9:15 AM MANAGER DISH) EXT Appearance, Urine Cloudy(A) Clear ML SCANNED REPORT EXT Glucose Qualitative, Urine 1+(A) Negative ML SCANNED REPORT EXT Bilirubin, Urine Negative ML SCANNED REPORT EXT Ketones, POCT, Urine Negative ML SCANNED REPORT EXT Specific [place], POCT, Urine 1.015 1.000 - 1.030 ML SCANNED REPORT EXT Blood, Urine Negative ML SCANNED REPORT EXT pH, Random, Urine 7.0 5.0 - 8.5 ML SCANNED REPORT EXT Protein, Urine Negative ML SCANNED REPORT EXT Urobilinogen, Urine 0.2 0.2 - 1.0 ML SCANNED REPORT EXT Nitrite, Urine Negative ML SCANNED REPORT EXT Leukocyte Esterase, Urine 1+(A) Negative ML SCANNED REPORT 11/11/2024 9:15 AM MANAGER DISH Narrative SCANNED REPORT - 11/11/2024 2:58 PM MANAGER DISH Source result document attached to Order Number [id number] ([id number]) dated 11/11/2024. External results verified in Extract by Lennie Howe on 11/11/2024 at 02:53 PM. See scanned report for all results. us Ordering Provider Emperatriz Alas LAB URINE ORDERA BLES Final Result Performing Organization Address [facility] de Phone Number SCANNED REPORT * CBC with Differential, Blood (11/11/2024 9:15 AM MANAGER DISH) EXT Leukocytes 6.66 4.50 - 11.00 K/uL [...] 0.30 K/uL SCANNED REPORT 11/11/2024 9:15 AM MANAGER DISH Narrative [facility] - 11/11/2024 2:58 PM MANAGER DISH Source result document attached to Order Number [id number] ([id number]) dated 11/11/2024. External results verified in Extract by Lennie Howe on 11/11/2024 at 02:53 PM. us Ordering Provider External M.DSharon LAB BLOOD ADD-ON Final Result Performing Organization Address [facility] Co de Phone Number [facility] NA SCANNED REPORT * (ABNORMAL) Parathyroid Hormone (PTH) (11/11/2024 9:15 AM MANAGER DISH) Parathyroid Hormone (PTH) 173.5(H) 14.2 - 75.2 pg/mL SCANNED REPORT 11/11/2024 9:15 AM MANAGER DISH Narrative [facility] - 11/11/2024 2:58 PM MANAGER DISH Source result document attached to Order Number [id number] ([id number]) dated 11/11/2024. External results verified in Extract by Lennie Howe on 11/11/2024 at 02:53 PM. us Ordering Provider External M.DSharon LAB BLOOD ADD-ON Final Result Performing Organization Address [facility]/ZIP Co de Phone Number [facility] NA SCANNED REPORT from Last [address] Care Teams Master Scheduler Relationship Specialty Start Date End Date Elsewhere, Pcp PCP - General Internal Medicine 03/26/22
--- OUTSIDE RECORDS SUMMARY | 2024-11-20 04:34 | XMS_ITS ---
Author Organization [facility] Address [address] [place] [address] Care Team Providers Care Industrial Diamond Polisher Name Role Phone Unavailable Unavailable Unavailable Surgery Details Not on file Complications Check Surgery Details section. Procedure Estimated Blood Loss Check Surgery Details section. Procedure Findings Check Surgery Details section. Procedure Specimens Taken Check Surgery Details section.
--- OUTSIDE RECORDS SUMMARY | 2024-11-20 04:34 | XMS_ITS ---
Author Organization [facility] Address [address] [place] [address] Care Team Providers Care Compounding Assistant Name Role Phone Elsewhere, Pcp Primary Care Provider Unavailabl e Kidney Bar Staff Program Status:Enrolled (Active) Start date:12/25/2023 Enrollment date:01/22/2024 Enrollment reason:Referred by provider Current support & services provided:Stage 3b Case Team Name Relationship Phone Juan Carlos Finney R.N. Registered Nurse [phone] Continued Care and Services Coordination
--- OUTSIDE RECORDS SUMMARY | 2024-11-20 04:34 | XMS_ITS | Encounter Summary ---
Author Organization [facility] Address [address] [place] [address] Care Team Providers Care Hard Rock Miner Name Role Phone Elsewhere, Pcp Primary Care Provider Unavailabl e Encounter Details Date Type Department Care Team (Late st Contact Info) Description 11/11/2024 Orders Only Division of Nephrology and Hypertension in [place], [place] [address] [place] [address] External, Ordering ProviderEvette Social History Tobacco Use [...] often do you attend chur ch or confucianist services? 1 to 4 times per year 03/10/2023 Do you belong to any clubs o r organizations such as cheondoism groups, unions, fraternal [...] Answer Date Recorded PHQ-2 Score 3 03/22/2021 [facility] of Occupat ional Health - [...] AM CDT Legal Sex Female 10:53 AM EQUIPMENT MANAGER Gender Identity Female 02/19/2022 7:48 AM CDT Sexual Orientation Straight 02/19/2022 7: 48 AM CDT documented as of this encounter Plan of Treatment Upcoming Encounters Date Type Department Care Team (Late st Contact Info) Description 11/22/2024 10:45 AM EQUIPMENT MANAGER Virtual Visit Division of Nephrology and Hypertension in [place], [place] [address] [place] [address] Maddie Velásquez APRN, C.N.P., M.S. 200 [place] [address] documented as of this encounter Procedures Procedure Name Priority Date/Time Associated Diagnosis Comments RENAL FUNCTION PANEL, S Routine 11/11/2024 9:15 AM EQUIPMENT MANAGER URINALYSIS, ROUTINE Routine 11/11/2024 9 :15 AM EQUIPMENT MANAGER CBC WITH DIFFERENTIAL, B Routine 11/11/2024 9:15 AM EQUIPMENT MANAGER PARATHYROID HORMONE (PTH), S Routine 11/11/2024 9:15 AM EQUIPMENT MANAGER documented in this encounter Results * (ABNORMAL) Urinalysis, Routine (11/11/2024 9:15 AM EQUIPMENT MANAGER) EXT Appearance, Urine Cloudy(A) Clear ML SCANNED REPORT EXT Glucose Qualitative, Urine 1+(A) Negative ML SCANNED REPORT EXT Bilirubin, Urine Negative ML SCANNED REPORT EXT Ketones, POCT, Urine Negative ML SCANNED REPORT EXT Specific [place], POCT, Urine 1.015 1.000 - 1.030 ML SCANNED REPORT EXT Blood, Urine Negative ML SCANNED REPORT EXT pH, Random, Urine 7.0 5.0 - 8.5 ML SCANNED REPORT EXT Protein, Urine Negative ML SCANNED REPORT EXT Urobilinogen, Urine 0.2 0.2 - 1.0 ML SCANNED REPORT EXT Nitrite, Urine Negative ML SCANNED REPORT EXT Leukocyte Esterase, Urine 1+(A) Negative ML SCANNED REPORT 11/11/2024 9:15 AM EQUIPMENT MANAGER Narrative SCANNED REPORT - 11/11/2024 2:58 PM EQUIPMENT MANAGER Source result document attached to Order Number [id number] ([id number]) dated 11/11/2024. External results verified in Extract by Lennie Howe on 11/11/2024 at 02:53 PM. See scanned report for all results. us Ordering Provider External Evette LAB URINE ORDERA BLES Final Result SCANNED REPORT * CBC with Differential, Blood (11/11/2024 9:15 AM EQUIPMENT MANAGER) Pathologist [facility] EXT Leukocytes 6.66 4.50 [...] 0.30 K/uL SCANNED REPORT 11/11/2024 9:15 AM EQUIPMENT MANAGER Narrative [facility] - 11/11/2024 2:58 PM EQUIPMENT MANAGER Source result document attached to Order Number [id number] ([id number]) dated 11/11/2024. External results verified in Extract by Lennie Howe on 11/11/2024 at 02:53 PM. us Ordering Provider Emperatriz Alas LAB BLOOD ADD-ON Final Result Performing Organization Address [facility] Co de Phone Number [employer] [facility] NA SCANNED REPORT * (ABNORMAL) Parathyroid Hormone (PTH) (11/11/2024 9:15 AM EQUIPMENT MANAGER) Parathyroid Hormone (PTH) 173.5(H) 14.2 - 75.2 pg/mL SCANNED REPORT 11/11/2024 9:15 AM EQUIPMENT MANAGER Narrative [facility] - 11/11/2024 2:58 PM EQUIPMENT MANAGER Source result document attached to Order Number [id number] ([id number]) dated 11/11/2024. External results verified in Extract by Lennie Howe on 11/11/2024 at 02:53 PM. us Ordering Provider Emperatriz Alas LAB BLOOD ADD-ON Final Result [facility] NA SCANNED REPORT * Renal Function Panel (11/11/2024 9:15 AM EQUIPMENT MANAGER) EXT Sodium 142 135 - 149 mmol/L [...] 4.5 mg/dL SCANNED REPORT 11/11/2024 9:15 AM EQUIPMENT MANAGER Narrative SCANNED REPORT - 11/11/2024 2:58 PM EQUIPMENT MANAGER External results verified in Extract by Lennie Howe on 11/11/2024 at 02:53 PM. us Ordering Provider External M.D. LAB BLOOD ADD-ON Final Result Performing Organization Address [facility] Co de Phone Number SCANNED REPORT documented in this encounter Visit Diagnoses Not on filedocumented in this encounter Additional Health Concerns Assessment Noted Time PHQ-9 Depression Total Score: 15 021 12:16 PM CDT documented as of this encounter Care Teams Hard Rock Miner Relationship Specialty Start Date End Date Elsewhere, Pcp PCP - General Internal Medicine 03/26/22 documented as of this encounter
--- OUTSIDE RECORDS SUMMARY | 2024-11-20 04:34 | XMS_ITS | Encounter Summary ---
Author Organization [facility] Address [address] [place] [address] Care Team Providers Care Brand Marketing Specialist Name Role Phone Elsewhere, Pcp Primary Care Provider Unavailabl e Reason for Visit * Reason Comments Med Refill Priority 2 Encounter Details Date Type Department Care Team (Late st Contact Info) Description 10/06/2024 Refill Division of Nephrology and Hypertension in [place], [place] [address] [place] [phone] Maddie Velásquez, RYANN, C.N.P., M.S. [address] [place] [phone] Med Refill (Priority 2) Social History Tobacco [...] How often do you attend chur or mormon services? 1 to 4 times per year 03/10/2023 Do you belong to any clubs o r organizations such as yazdanism groups, unions, fraternal [...] Answer Date Recorded PHQ-2 Score 3 03/22/2021 [facility] of Occupat ional Health - Occupational [...] slept in a senior care (including now)? No 03/10/2023 Depression Answer Date [...] AM CDT Legal Sex Female 10:53 AM STRUCTURAL DESIGNER Gender Identity Female 02/19/2022 7:48 AM CDT Sexual Orientation Straight 02/19/2022 7: 48 AM CDT documented as of this encounter Plan of Treatment Upcoming Encounters Date Type Department Care Team (Late st Contact Info) Description 11/22/2024 10:45 AM STRUCTURAL DESIGNER Virtual Visit Division of Nephrology and Hypertension in [place], [place] [address] [place] [address] Maddie Velásquez APRN, C.N.P., M.S. [address] [place] [address] documented as of this encounter Visit Diagnoses Diagnosis Chronic Kidney Disease (CKD), Stage 3b Glomerular Filtration Rate (GFR) 30 To 44 (HCC) Chronic Kidney Disease Stage 4 Glomerular Filtration Rate 15-29 (HCC)- Primary documented in this encounter Additional Health Concerns Assessment Noted Time PHQ-9 Depression Total Score: 15 021 12:16 PM CDT documented as of this encounter Care Teams Brand Marketing Specialist Relationship Specialty Start Date End Date Elsewhere, Pcp PCP - General Internal Medicine 03/26/22 documented as of this encounter
--- OUTSIDE RECORDS SUMMARY | 2024-11-20 04:34 | XMS_ITS | Encounter Summary ---
Author Organization [facility] Address [address] [place] [address] Care Team Providers Care Piano Player Name Role Phone Elsewhere, Pcp Primary Care Provider Unavailabl e Encounter Details Date Type Department Care Team (Late st Contact Info) Description 11/11/2024 Orders Only Division of Nephrology and Hypertension in [place], [place] [address] [place] [address] External, Ordering ProviderEvette Social History Tobacco Use [...] often do you attend chur ch or oriental orthodox services? 1 to 4 times per year 03/10/2023 Do you belong to any clubs o r organizations such as holiness groups, unions, fraternal [...] Answer Date Recorded PHQ-2 Score 3 03/22/2021 [facility] of Occupat ional Health - Occupational Stress [...] AM CDT Legal Sex Female 10:53 AM FISHING GAME WARDEN Gender Identity Female 02/19/2022 7:48 AM CDT Sexual Orientation Straight 02/19/2022 7: 48 AM CDT documented as of this encounter Plan of Treatment Upcoming Encounters Date Type Department Care Team (Late st Contact Info) Description 11/22/2024 10:45 AM FISHING GAME WARDEN Virtual Visit Division of Nephrology and Hypertension in [place], [place] [address] [place] [address] Maddie Velásquez APRN, C.N.P., M.S. 200 [place] [address] documented as of this encounter Procedures Procedure Name Priority Date/Time Associated Diagnosis Comments EXT OUTSIDE LAB TESTS Routine 11/11/2024 9:15 AM FISHING GAME WARDEN documented in this encounter Results * EXT Outside Lab Tests (11/11/2024 9:15 AM FISHING GAME WARDEN) EXT Miscellaneous See scanned report [facility] 11/11/2024 9:15 AM FISHING GAME WARDEN Narrative [facility] - 11/15/2024 7:54 AM FISHING GAME WARDEN External results verified in Extract by Lennie Howe on 11/15/2024 at 07:52 AM. Urine culture scanned into chart us Ordering Provider External M.D. LAB BLOOD NON AD D-ON Final Result [facility] [address] [place] [address] documented in this encounter Visit Diagnoses Not on filedocumented in this encounter Additional Health Concerns Assessment Noted Time PHQ-9 Depression Total Score: 15 021 12:16 PM CDT documented as of this encounter Care Teams Piano Player Relationship Specialty Start Date End Date Elsewhere, Pcp PCP - General Internal Medicine 03/26/22 documented as of this encounter
--- OUTSIDE RECORDS SUMMARY | 2024-11-20 04:34 | XMS_ITS | Encounter Summary ---
Author Organization [facility] Address [address] [place] [id number] Care Team Providers Care Greenhouse Or Nursery Transplanter Name Role Phone Elsewhere, Pcp Primary Care Provider Unavailabl e Encounter Details Date Type Department Care Team (Late st Contact Info) Description 11/11/2024 Clinical Communication Division of Nephrology and Hypertension in [place], [place] [address] [place] [phone] Jose Gayle R.N. [address] [place] [phone] Social History Tobacco Use Types Packs/Day Years [...] often do you attend chur ch or rastafari services? 1 to 4 times per year 03/10/2023 Do you belong to any clubs o r organizations such as roman catholic groups, unions, [...] Answer Date Recorded PHQ-2 Score 3 03/22/2021 [facility] - Occupational Stress Questionnaire Answer Date Recorded [...] or slept in a chcf (including now)? No 03/10/2023 Depression Answer Date [...] AM CDT Legal Sex Female 10:53 AM [employer]ANNING [employer] Gender Identity Female 02/19/2022 7:48 AM CDT Sexual Orientation Straight 02/19/2022 7: 48 AM CDT documented as of this encounter Plan of Treatment Upcoming Encounters Date Type Department Care Team (Late st Contact Info) Description 11/22/2024 10:45 AM [employer]ING [employer] Virtual Visit Division of Nephrology and Hypertension in [place], [place] [address] [place] [phone] Maddie Velásquez APRN, C.N.P., M.S. [address] [place] [phone] documented as of this encounter Visit Diagnoses Not on filedocumented in this encounter Additional Health Concerns Assessment Noted Time PHQ-9 Depression Total Score: 15 021 12:16 PM CDT documented as of this encounter Care Teams Greenhouse Or Nursery Transplanter Relationship Specialty Start Date End Date Elsewhere, Pcp PCP - General Internal Medicine 03/26/22 documented as of this encounter
--- OUTSIDE RECORDS SUMMARY | 2024-11-20 04:34 | XMS_ITS | Continuity of Care Document ---
Author Name Nw[facility]IN User [email or web address] llowed Address Unknown Organization Unknown Address Unknown Procedures FILTER APPLIED:Only known Procedures with Onset Date within the last 5 years Procedure Date Procedure Provider Additiona l Information Status RENAL FUNCTION PANEL (16807) Completed COMPLETE CBC W/AUTO DIFF WBC (68163) Completed ASSAY OF URINE CREATININE (25810) Completed ASSAY OF PARATHORMONE (47517) Completed UR ALBUMIN QUANTITATIVE (63188) Completed URINE CULTURE/COLONY COUNT (30491) Completed MICROBE SUSCEPTIBLE YOHANA (55191) Completed URINALYSIS AUTO W/SCOPE (68145) Completed SELF CARE MNGMENT TRAINING (89456) Completed MICROBE SUSCEPTIBLE YOHANA (76374) Completed ASSAY OF PARATHORMONE (19893) Completed ASSAY OF CALCIUM (47266) Completed ASSAY THYROID STIM HORMONE (35783) Completed URINE CULTURE/COLONY COUNT (81544) Completed COMPLETE CBC AUTOMATED (04983) Completed ASSAY OF URINE CREATININE (55855) Completed UR ALBUMIN QUANTITATIVE (10113) Completed URINALYSIS AUTO W/SCOPE (85532) Completed RENAL FUNCTION PANEL (12771) Completed LIPID PANEL (56145) Comp leted METABOLIC PANEL TOTAL CA (06732) Completed ASSAY OF BLOOD/URIC ACID (21787) Completed PT EVAL HIGH COMPLEX 45 MIN (37009) Completed MANUAL THERAPY 1/> REGIONS (65675) Completed THERAPEUTIC EXERCISES (04910) Completed OT EVAL MOD COMPLEX 45 MIN (95050) Completed Encounters FILTER APPLIED:Only known Encounters with Admission Date within the last 5 years Encounter Location Admission Discharge Billing Code Manager Mobile Barney pelayo Outpatient Anastacio Anthony Outpatient Mee Alejandra Outpatient Mee Alejandra Outpatient Not A Local Provider Outpatient Charley Velásquez Outpatient Toño German
--- NOTE | 2024-11-20 04:39 | CRLHL7_ITS ---
For Patients: As a result of the Century Cures Act, medical imaging exams and procedure reports are released immediately into your electronic medical record. You may view this report before your referring provider. If you have questions, please contact your health care provider. INDICATION: Chest pain. TECHNIQUE: Chest 1 portable view. COMPARISON: 10/19/2018. FINDINGS: No pneumothorax or pleural effusion. Lungs are clear. Cardiac and mediastinal contours are within normal limits. Upper abdomen and osseous structures as imaged show no acute abnormality. IMPRESSION: No evidence of acute cardiopulmonary disease. Dictated by Christ Buenrostro MD @ 11/20/2024 6:16:49 AM (Electronically Signed)
[2024-11-20] MEDS: ASPIRIN 81 MG TAB.CHEW 324 MG PO (05:09)
[2024-11-20 05:13] LABS: Basophils Absolute Auto 0.02 K/uL (0.00-0.30); Basophils Percent Auto 0.2 % (0.0-3.0); Eosinophils Absolute Auto 0.13 K/uL (0.00-0.50); Eosinophils Percent Auto 1.4 % (0.0-7.0); Hematocrit 40.9 % (33.0-51.0); Hemoglobin* 12.7 gm/dL (12.0-16.0); Immature Granulocytes Abs Auto 0.03 K/uL (0.00-0.30); Immature Granulocytes Pct Auto 0.3 %; Lymphocytes Percent Auto 11.6 % (20-44); Mean Corpuscular HGB Conc 31 gm/dL (32-36); Mean Corpuscular Hemoglobin 29 pg (26-34); Mean Corpuscular Volume 94 fL (80-100); Monocytes Percent Auto 7.3 % (0.0-11.0); Neutrophils Percent Auto 79.2 % (42.0-72.0); Platelet Count* 190 K/uL (140-440); RDW Coefficient of Variation % 13.3 % (11.5-15.5); Red Blood Count 4.35 m/uL (4.00-5.20); White Blood Count* 9.19 K/uL (4.50-11.00)
[2024-11-20 05:15] LABS: Slide Review Reflex No
[2024-11-20 05:27] LABS: Albumin* 4.1 g/dL (3.3-5.0); Chloride* 105 mmol/L (96-114)
[2024-11-20 05:28] LABS: Potassium* 4.6 mmol/L (3.6-5.1); Sodium* 139 mmol/L (135-149)
[2024-11-20 05:30] LABS: Anion Gap 7 mEq/L (7-15); Aspartate Amino Transferase* 24 U/L (12-35); Bilirubin Direct* 0.2 mg/dL (0.0-0.5); Bilirubin Total* 0.6 mg/dL (0.1-1.5); Carbon Dioxide* 27 mmol/L (20-32); Creatinine* 1.3 mg/dL (0.5-1.5); Est. Creatinine Clearance* 27.43; Estimated Glomerular Filt Rate 40 ml/min; Total Protein* 6.7 g/dL (6.0-8.3)
[2024-11-20 05:31] LABS: Alanine Aminotransferase* 19 U/L (4-35); Alkaline Phosphatase* 63 U/L (40-150); Blood Urea Nitrogen* 29 mg/dL (7-30); Calcium* 9.4 mg/dL (8.4-10.6); Glucose* 97 mg/dL (60-115); Magnesium* 2.4 mg/dL (1.5-2.6)
[2024-11-20 05:34] LABS: D Dimer Quantitative* 0.97 ug/ml (0.00-0.50)
[2024-11-20 05:47] LABS: Lipase* 108 U/L (23-300)
[2024-11-20 05:49] LABS: PCR FLU A Negative PCR FLU A (Negative); PCR FLU B Negative PCR FLU B (Negative); PCR RSV Negative PCR RSV (Negative); SARS PCR* Negative SARS-CoV-2 (Negative)
[2024-11-20 05:50] LABS: NT Pro B Type NatriureticPept* 223 pg/mL
[2024-11-20] MEDS: GI COCKTAIL (VISC LIDO/ANTACID) 30 ML PO (06:33)
[2024-11-20 06:46] LABS: Troponin I* < 0.01 ng/mL (0.01-0.04)
[2024-11-20] MEDS: NITROGLYCERIN 0.4 MG TAB.SUBL SUBLINGUAL ×2 (07:23→07:49)
[2024-11-20] MEDS: KETOROLAC 15 MG/ML inj IVP (07:24)
[2024-11-20 08:00] LABS: Troponin I* < 0.01 ng/mL (0.01-0.04)
--- NOTE | 2024-11-20 08:05 | CRLHL7_ITS ---
For Patients: As a result of the Century Cures Act, medical imaging exams and procedure reports are released immediately into your electronic medical record. You may view this report before your referring provider. If you have questions, please contact your health care provider. INDICATION: Chest pain. Dyspnea. Elevated D-dimer. TECHNIQUE: CT chest pulmonary angiogram acquired with 95 cc of Isovue 370 IV contrast. COMPARISON: No prior chest CT available. FINDINGS: Cardiovascular structures: No evidence of pulmonary embolus. Aortic atherosclerosis. Thoracic aorta is normal in caliber. Coronary artery calcifications. Heart size is within normal limits. Mediastinum and justice: No pathologic lymphadenopathy. Small hiatal hernia. Lungs: No pneumothorax. Central airways are patent. Mild motion artifact with bilateral subsegmental atelectasis. Lungs are otherwise clear. Pleura and pericardium: No effusions. Chest wall and axilla: Unremarkable. Bones: Degenerative changes. No acute or suspicious osseous abnormality. Upper abdomen: Nonobstructing 6 mm right renal stone. Bilateral renal cysts. Incidental left adrenal adenoma measures 14 mm. Too small to characterize low densities in the liver likely represent incidental cysts. IMPRESSION: No evidence of pulmonary embolus or other acute abnormality in the chest. Dictated by Christ Buenrostro MD @ 11/20/2024 9:48:11 AM Please note that all CT scans at this facility use dose modulation, iterative reconstruction, and/or weight-based dosing when appropriate to reduce radiation dose to as low as reasonably achievable. Dictated by: Christ Buenrostro MD @ 11/20/2024 09:48:25 (Electronically Signed)
--- NOTE | 2024-11-20 09:52 | P.IMHP_ITS ---
Hospitalist- H&P: URBAN History of Present Illness Date Seen: 11/20/24 Chief complaint: Chest Pain Narrative: Vielka Yap is a 89 year old female admitted to the hospital with epigastric and chest pain. She awoke from sleep around 1:00 a.m. today. Her right shoulder was bothering her. This is a chronic problem that has been going on for months. This occurs when she lays in bed on her right shoulder. While she was up she did some dishes and played a game on the computer. Her shoulders feeling better so she went back to bed. About 2:00 a.m. she was lying in bed and had abrupt onset of epigastric pain that radiated up into her chest. She described it as a constant pressure sensation. With this she also had shortness of breath. No nausea, vomiting or diaphoresis. Because of this she awoke her and they called 911 and was brought to the emergency room. Nothing seems to make the pain better or worse. It is constant. She has sleeve nitroglycerin which was not clearly of any benefit. She reports now her pain is almost entirely resolved but she is not sure that anything that is been done has been clearly beneficial. She reports not having this type of pain for some time. She does have a history of reflux for which she was treated with Nexium affectively. She stop the Nexium sometime ago and really has not had any reflux symptoms for a long time. She has no history of coronary disease or heart disease. She does have stage 4 chronic kidney disease for which she sees [facility]. She notes chronic lymphedema as a longstanding problem. She has not been using her custom made lymphedema treatment recently because she and her can not get it on. Her son has been putting it on for her but has not been able to due to his own health issues recently. She notes her lymphedema was getting worse and so she increased her diuretic and thinks that her weight is down about 10 lb in the last week. Review of Systems Narrative: She reports that she has been generally doing well recently except for her chronic right shoulder pain and her ongoing lymphedema problems [facility] Medical History (Updated 11/20/24 @ 10:09 by Jose Ramon Veliz MD) Acquired right foot drop ?M21.371 - Foot drop, right foot (ICD-10) Obstructive sleep apnea syndrome (08/10/10) ?G47.33 - Obstructive sleep apnea (adult) (pediatric) (ICD-10) Lymphedema ?I89.0 - Lymphedema, not elsewhere classified (ICD-10) Physical deconditioning ?R53.81 - Other malaise (ICD-10) Chronic kidney disease, stage 4 (severe) ?N18.4 - Chronic kidney disease, stage 4 (severe) (ICD-10) Major depressive disorder ?F32.9 - Major depressive disorder, single episode, unspecified (ICD-10) Gastroesophageal reflux (08/10/10) ?K21.9 - Gastro-esophageal reflux disease without esophagitis (ICD-10) History of deep vein thrombosis (DVT) of lower extremity ?Z86.718 - Personal history of other venous thrombosis and embolism (ICD-10) History of renal stone ?Z87.442 - Personal history of urinary calculi (ICD-10) Surgical History 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) ?G57.31 - Lesion of lateral popliteal nerve, right lower limb (ICD-10) History of cataract surgery ?Z98.49 - Cataract extraction status, unspecified eye (ICD-10) History of total knee replacement (2005) ?Z96.659 - Presence of unspecified artificial knee joint (ICD-10) 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) ?Z96.649 - Presence of unspecified artificial hip joint (ICD-10) History of tonsillectomy (06/04/12) ?Z90.89 - Acquired absence of other organs (ICD-10) History of hysteroscopy (04/22/12) ?Z98.890 - Other specified postprocedural states (ICD-10) History of colon surgery (2004) ?Z98.890 - Other specified postprocedural states (ICD-10) History of appendectomy (08/10/10) ?Z90.49 - Acquired absence of other specified parts of digestive tract (ICD- 10) Family History (Updated 11/20/24 @ 10:00 by Jose Ramon Veliz MD) Father Lung cancer Mother Stroke Sister Ovarian cancer Social History (Updated 11/20/24 @ 10:01 by Jose Ramon Veliz MD) Narrative: to [place], they live together independently. He is primary healthcare power of consumer attorney. Her son Dimas would be 2nd dairy power of consumer attorney. Code status is resuscitation for witnessed arrest only. nonsmoker. Drinks 2 glasses of wine a week. uses a lift recliner and walker in her home. What is your current living situation?: I presently have a place to live Problems where you live: no known problems Problems where you live details: Two steps from garage into house In the past 12 months, utilities in danger of being shut off: no In past 12 months, lack of transportation kept you from medical appts, meetings, work, or getting things needed for daily living: no In the past 12 mos, have been you worried that your food would run out before you had money to buy more?: never true In the past 12 mos, the food you bought just didn't last and you didn't have money to buy more?: never true Highest level of school completed/degree received: some college, no degree Smoking Status: Never smoker Do you use any of these nicotine containing products: None Second hand tobacco smoke exposure: No How often do you have a drink containing alcohol: 2-3 times a week Alcohol type: wine How often do you have six or more drinks on one occasion: Never AUDIT-C Alcohol total score: 3 Non-prescribed substance use: denies use Caffeine: Yes (Half caffinated coffee) How often does anyone, including family, friends and others, physically hurt you : never How often does anyone, including family, friends and others, insult or talk down to you: never How often does anyone, including family, friends and others, threaten you with harm: never How often does anyone, including family, friends and others, scream or curse at you: never service: No Meds Home Medications and Allergies Home Medications ?Medication ?Instructions ?Recorded ?Confirmed ?Type allopurinol 100 mg tablet 50 mg PO DAILY 10/07/22 11/20/24 History dapagliflozin propanediol 10 mg 10 mg PO QDAY 10/07/22 11/20/24 History tablet (Farxiga) zinc sulfate 50 mg zinc (220 mg) 50 mg PO DAILY 10/07/22 11/20/24 History capsule lisinopril 20 mg tablet 20 mg PO DAILY 07/24/23 11/20/24 History multivitamin (Daily Multi-Vitamin 1 tab PO DAILY 07/24/23 11/20/24 History tablet) acetaminophen 650 mg 650 mg PO Q8H 09/29/23 11/20/24 History tablet,extended release torsemide 10 mg tablet 10 mg PO DAILY 09/29/23 11/20/24 History Vitamin B+ 1 tab PO DAILY 10/21/24 11/20/24 History lactobacillus combination no.9 4 4,000 mmu cells PO QDAY 10/21/24 11/20/24 History billion cell capsule (Adult 50 Plus Probiotic) Allergies Allergy/AdvReac Type Severity Reaction Status Date / Time clavulanic acid Allergy Verified 11/20/24 04:17 tazobactam Allergy Verified 11/20/24 04:17 Tetracyclines Allergy Verified 11/20/24 04:17 ibuprofen AdvReac spacing Verified 11/20/24 04:17 out with large doses Exam Narrative: Exam Narrative: She is alert and appears in no distress. She gives her own history with good detail. Oropharynx with small airway. Neck is supple without mass or adenopathy. Respirations are clear to auscultation. No wheezing rales or rhonchi. Cardiovascular: S1, S2, regular rate and rhythm. No murmur gallop or rub. Abdomen: Bowel sounds are present. Abdomen is soft without tenderness or mass. External genitalia normal. She has chronic lymphedema with approximately 2 to 3+ edema in both lower extremities. No significant skin changes or skin breakdown. She has a right footdrop noted. Const: Vital Signs, click to edit/add: Vital Signs - 24 hr 11/20/24 04:13 11/20/24 04:33 11/20/24 05:02 Temperature 97.1 F L Pulse Rate 76 76 Pulse Rate [Pulse Oximeter] 81 Respiratory Rate 18 20 Blood Pressure 168/67 H 169/73 H Blood Pressure [Ri ght Upper Arm] 179/74 H Pulse Oximetry 92 97 96 Oxygen Delivery Me thod Room Air Room Air 11/20/24 05:32 11/20/24 06:02 11/20/24 06:32 Temperature Pulse Rate 77 71 73 Pulse Rate [Pulse Oximeter] Respiratory Rate 18 16 Blood Pressure 153/48 H 158/55 H 154/56 H Blood Pressure [Ri ght Upper Arm] Pulse Oximetry 96 96 96 Oxygen Delivery Me thod Room Air Room Air 11/20/24 06:33 11/20/24 07:02 11/20/24 07:32 Temperature Pulse Rate 74 69 72 Pulse Rate [Pulse Oximeter] Respiratory Rate Blood Pressure 153/58 H 158/72 H Blood Pressure [Ri ght Upper Arm] Pulse Oximetry 99 97 94 Oxygen Delivery Me thod Room Air Room Air 11/20/24 07:42 11/20/24 08:01 11/20/24 08:15 Temperature Pulse Rate 75 72 73 Pulse Rate [Pulse Oximeter] Respiratory Rate 16 Blood Pressure 143/62 H 136/62 Blood Pressure [Ri ght Upper Arm] Pulse Oximetry 94 93 97 Oxygen Delivery Me thod 11/20/24 08:22 11/20/24 09:50 Temperature Pulse Rate 73 Pulse Rate [Pulse Oximeter] Respiratory Rate Blood Pressure 152/63 H Blood Pressure [Ri ght Upper Arm] Pulse Oximetry Oxygen Delivery Me thod Documenting provider has reviewed patient's vital signs: yes Hospitalist - H&P: Result Labs Labs: Short CBC 11/20/24 Range/Units 05:10 WBC 9.19 (4.50-11.00) K/uL Hgb 12.7 (12.0-16.0) gm/dL Hct 40.9 (33.0-51.0) % Plt Count 190 (140-440) K/uL BMP 11/20/24 05:10 Sodium 139 Potassium 4.6 Chloride 105 Carbon Dioxide 27 BUN 29 Creatinine 1.3 Glucose 97 Calcium 9.4 Cardiac Enzymes 11/20/24 11/20/24 Range/Units 05:10 07:20 Troponin I < 0.01 L < 0.01 L (0.01-0.04) ng/mL Liver Function 11/20/24 Range/Units 05:10 Total Bilirubin 0.6 (0.1-1.5) mg/dL Direct Bilirubin 0.2 (0.0-0.5) mg/dL AST 24 (12-35) U/L ALT 19 (4-35) U/L Alkaline Phosphatase 63 (40-150) U/L Albumin 4.1 (3.3-5.0) g/dL Imaging CT scan - chest: Radiologist's impression: INDICATION: Chest pain. Dyspnea. Elevated D-dimer. TECHNIQUE: CT chest pulmonary angiogram acquired with 95 cc of Isovue 370 IV contrast. COMPARISON: No prior chest CT available. FINDINGS: Cardiovascular structures: No evidence of pulmonary embolus. Aortic atherosclerosis. Thoracic aorta is normal in caliber. Coronary artery calcifications. Heart size is within normal limits. Mediastinum and justice: No pathologic lymphadenopathy. Small hiatal hernia. Lungs: No pneumothorax. Central airways are patent. Mild motion artifact with bilateral subsegmental atelectasis. Lungs are otherwise clear. Pleura and pericardium: No effusions. Chest wall and axilla: Unremarkable. Bones: Degenerative changes. No acute or suspicious osseous abnormality. Upper abdomen: Nonobstructing 6 mm right renal stone. Bilateral renal cysts. Incidental left adrenal adenoma measures 14 mm. Too small to characterize low densities in the liver likely represent incidental cysts. IMPRESSION: No evidence of pulmonary embolus or other acute abnormality in the chest. Assessment and Plan Assessment and plan (1) Chest pain: Problem comment: Etiology is uncertain. She is at risk for coronary disease but now has normal troponins. She is also at risk for recurrence of her gastroesophageal reflux causing chest pain. Will continue to evaluate and monitor. May need outpatient cardiac evaluation. Status: Acute (2) Gastroesophageal reflux: Problem comment: Remote history of Nexium use. Restart omeprazole Status: Acute (3) Chronic kidney disease, stage 4 (severe): Problem comment: Stage 4 on 05/11/21 Nephrology note. Likely due to NSAID use. Followed by [facility] Status: Acute (4) Morbid obesity with body mass index (BMI) of 40.0 or higher: Status: Acute Plan Patient is admitted to the hospital for evaluation monitoring of chest pain. Ongoing evaluation treatment depending on her clinical course. Total Time Spent Total Time Spent: Total time spent today is 60 minutes in reviewing past medical history, [facility] records, evaluation and management and discussing with patient and other providers management of chest pain
[2024-11-20] MEDS: buPROPion XL 150 MG TABLET 300 MG PO (12:58)
[2024-11-20] MEDS: allopurinoL 100 MG TABLET 50 MG PO (12:58)
[2024-11-20] MEDS: LEVOTHYROXINE 25 MCG TABLET PO (12:59)
[2024-11-20] MEDS: OMEPRAZOLE 20 MG CAPSULE DR PO (12:59)
[2024-11-20] MEDS: lisinopriL 20 MG TABLET PO (12:59)
[2024-11-20] MEDS: MULTIVITAMIN/MINERALS 1 TABLET 1 TAB PO (12:59)
[2024-11-20] MEDS: TORSEMIDE 5 MG TABLET 10 MG PO (12:59)
[2024-11-20] MEDS: LACTOBACILLUS ACIDOPHILUS 1 TABLET 1 TAB PO (13:00)
[2024-11-20 13:38] LABS: Troponin I* < 0.01 ng/mL (0.01-0.04)
--- NOTE | 2024-11-20 14:36 | REH.OT ---
Pt screened by PT and OT, no OT needs, Pt at baseline with her mobility and ADLs/IADLs. OT order completed.
--- NOTE | 2024-11-20 15:00 | P.DS_ITS ---
DS: Providers Provider Date Seen: 11/20/24 Date of admission: 11/20/24 08:39 Primary care physician: Diane Alejandra MD Admitting Clinician: Jose Ramon Veliz MD Consults: 11/20/24 09:50 Consult to Occupational Therapy [CONS] Routine Comment: Reason(s) for OT Consult:: Evaluate and Treat Any Restrictions?:: No Restrictions Consult to Physical Therapy [CONS] Routine Comment: Reason(s) for PT Consult:: Evaluate Ambulation Any Restrictions?:: No Restrictions Attending Physician on discharge: Jose Ramon Veliz MD Date of Discharge: 11/20/24 DS: Diagnosis Discharge Diagnosis (1) Chest pain: Status: Acute Problem details: Etiology is uncertain. Symptoms completely resolved today. She is at risk for coronary disease but now has normal troponins. She is also at risk for recurrence of her gastroesophageal reflux causing chest pain. Consider outpatient cardiac evaluation. (2) Gastroesophageal reflux: Status: Acute Problem details: Remote history of Nexium use. Restart Nexium (3) Chronic kidney disease, stage 4 (severe): Status: Acute Problem details: Stage 4 on 05/11/21 Nephrology note. Likely due to NSAID use. Followed by [facility] (4) Morbid obesity with body mass index (BMI) of 40.0 or higher: Status: Acute (5) Lymphedema: Status: Acute Problem details: Multifactorial. (On Lasix in past), previous [facility], now at [facility]. Unable to use custom pneumatic compression at home. DS: Summary Hospital Course Hospital Course: During the day today she completely resolved her epigastric and chest pain. She is walking in the hallway and had no symptoms of dyspnea or chest pain. She reports feeling entirely well. Eating without symptoms. We discussed the uncertainty of the cause of her chest pain. I favor recurrence of gastroesophageal reflux as the more likely cause. I indicated that we had not ruled out heart disease as a cause of her symptoms. Consider outpatient stress testing to further evaluate that. Resume Nexium. Follow-up with primary care provider in the next week to recheck. Time Spent with Patient Time attestation: Total time spent providing and/or coordinating discharge services: Total time spent today is 80 minutes in admission and discharge services Exam Narrative: Exam Narrative: See exam from this morning on H&P Const: Vital Signs, click to edit/add: Vital Signs - 24 hr 01/04/25 04:13 11/20/24 04:33 11/20/24 05:02 Temperature 97.1 F L Pulse Rate 76 76 Pulse Rate [Pulse Oximeter] 81 Respiratory Rate 18 20 Blood Pressure 168/67 H 169/73 H Blood Pressure [Ri ght Arm] Blood Pressure [Ri ght Upper Arm] 179/74 H Pulse Oximetry 92 97 96 Oxygen Delivery Me thod Room Air Room Air 11/20/24 05:32 11/20/24 06:02 11/20/24 06:32 Temperature Pulse Rate 77 71 73 Pulse Rate [Pulse Oximeter] Respiratory Rate 18 16 Blood Pressure 153/48 H 158/55 H 154/56 H Blood Pressure [Ri ght Arm] Blood Pressure [Ri ght Upper Arm] Pulse Oximetry 96 96 [facility] 11/20/24 06:33 11/20/24 07:02 11/20/24 07:32 Temperature Pulse Rate 74 69 72 Pulse Rate [Pulse Oximeter] Respiratory Rate Blood Pressure 153/58 H 158/72 H Blood Pressure [Ri ght Arm] Blood Pressure [Ri ght Upper Arm] Pulse Oximetry 99 97 94 [facility] 11/20/24 07:42 11/20/24 08:01 11/20/24 08:15 Temperature Pulse Rate 75 72 73 Pulse Rate [Pulse Oximeter] Respiratory Rate 16 Blood Pressure 143/62 H 136/62 Blood Pressure [Ri ght Arm] Blood Pressure [Ri ght Upper Arm] Pulse Oximetry 94 93 97 Oxygen Delivery Me thod 11/20/24 08:22 11/20/24 09:50 11/20/24 11:00 Temperature 97.1 F L Pulse Rate 73 Pulse Rate [Pulse Oximeter] Respiratory Rate 16 Blood Pressure 152/63 H Blood Pressure [Ri ght Arm] 144/72 H Blood Pressure [Ri ght Upper Arm] Pulse Oximetry 97 [facility] DS: Data Data Completed and Pending Labs on day of discharge: Labs from last 24 hours 11/20/24 11/20/24 11/20/24 13:02 07:20 05:39 WBC RBC Hgb Hct MCV MCH MCHC RDW Coeff of Baylee Plt Count Neut % (Auto) Lymph % (Auto) [place] % (Auto) Eos % (Auto) Baso % (Auto) Neut # (Auto) Lymph # (Auto) [place] # (Auto) Eos # (Auto) Baso # (Auto) Abs Immat Gran (auto) Imm/Tot Granulo (auto) D-Dimer Quant (PE/DVT) Sodium Potassium Chloride Carbon Dioxide Anion Gap BUN Creatinine Estimated Creat Clear Estimated GFR Glucose Calcium Magnesium Total Bilirubin Direct Bilirubin AST ALT Alkaline Phosphatase Troponin I < 0.01 L < 0.01 L NT-Pro-B Natriuret Pep Total Protein Albumin Lipase SARS-CoV-2 (PCR) Influenza Type A (PCR) Influenza Type B (PCR) RSV (PCR) Lab Acknowledgement Test Added 11/20/24 05:10 WBC 9.19 RBC 4.35 Hgb 12.7 Hct 40.9 MCV 94 MCH 29 MCHC 31 L RDW Coeff of Baylee 13.3 Plt Count 190 Neut % (Auto) 79.2 H Lymph % (Auto) 11.6 L [place] % (Auto) 7.3 Eos % (Auto) 1.4 Baso % (Auto) 0.2 Neut # (Auto) 7.30 H Lymph # (Auto) 1.10 [place] # (Auto) 0.70 Eos # (Auto) 0.13 Baso # (Auto) 0.02 Abs Immat Gran (auto) 0.03 Imm/Tot Granulo (auto) 0.3 D-Dimer Quant (PE/DVT) 0.97 H Sodium 139 Potassium 4.6 Chloride 105 Carbon Dioxide 27 Anion Gap 7 BUN 29 Creatinine 1.3 Estimated Creat Clear 27.43 Estimated GFR 40 Glucose 97 Calcium 9.4 Magnesium 2.4 Total Bilirubin 0.6 Direct Bilirubin 0.2 AST 24 ALT 19 Alkaline Phosphatase 63 Troponin I < 0.01 L NT-Pro-B Natriuret Pep 223 Total Protein 6.7 Albumin 4.1 Lipase 108 SARS-CoV-2 (PCR) Negative SARS-CoV-2 Influenza Type A (PCR) Negative PCR FLU A Influenza Type B (PCR) Negative PCR FLU B RSV (PCR) Negative PCR RSV Lab Acknowledgement Discharge Plan Discharge Disposition: Home, Self-Care Date of Admission: 11/20/24 08:39 Attending Provider on Discharge: Jose Ramon Veliz Primary Care Provider: Diane Alejandra Condition: Improved Anticipated Discharge Date/Time: 11/20/24 14:55 Discharge Medications: New esomeprazole magnesium [Acid Mine Deputy (esomeprazole)] 20 mg capsule,delayed release(DR/EC) 20 mg PO DAILY Qty: 30 0RF Continued zinc sulfate 50 mg zinc (220 mg) capsule 50 mg PO DAILY acetaminophen 650 mg tablet extended release 1,300 mg PO TID PRN Adult 50 Plus Probiotic 4 billion cell capsule 4,000 mmu cells PO QDAY Rx Instructions: administer with a meal levothyroxine 25 mcg tablet 25 mcg PO QDAY Qty: 90 3RF simvastatin 20 mg tablet 20 mg PO Q48H Qty: 45 3RF bupropion HCl 300 mg tablet extended release 24 hr 300 mg PO QDAY Qty: 90 3RF allopurinol 100 mg tablet 50 mg PO DAILY Farxiga 10 mg tablet 10 mg PO QDAY cyanocobalamin (vitamin B-12) PO DAILY nystatin 100,000 unit/gram powder 1 applic topical QDAY PRN Rx Instructions: USES NEEDED FOR FLARES OF SKIN FOLD DERMATITIS lisinopril 20 mg tablet 20 mg PO DAILY multivitamin [Daily Multi-Vitamin] Tablet 1 tab PO DAILY Patient Comments: JAQUAN MADELEINE PROCAPS ESSENTIAL 1 (FROM [employer]) torsemide 10 mg tablet 10 mg PO DAILY Patient Comments: 10 MG DAILY PLUS ADDITIONAL DOSE IF GAIN 3 LBS OVERNIGHT OR 5 LBS OVER A WEEK Rx Instructions: Take 2 tabs PRN Discharge Orders: Discharge Order (Routine); Ordered 11/20/24 Ordered By: Jose Ramon Veliz Activity Level: Activity as Tolerated Discharge Diet: Heart Healthy (2 gm sodium, low fat) Follow Up Appointments: Diane Alejandra MD [Primary Care Provider] - (follow up in the next week for recheck) Forms: [employer] Info Instructions
--- NOTE | 2024-11-20 16:54 | PC.NURSE ---
Patient admitted for observation due to having chest pain in her epigastric region. Patient rates the pain at 4/10 when asked but denies the need for pain medicine and states that it no longer 'bothers' her. After observation of labs and assessment. Patient is ready for discharge. Discharge instructions discussed with patient. All questions were answered and forms were signed. Escorted to front entrance via staff. Drove home with assist from her .
== END 2024-11-20 15:30 | disposition home or self-care (01) ==
LOC: ED 08:08 → MEDSURG 08:41
PROVIDERS: Admitting Provider Family Medicine; Emergency Provider Family Medicine; PCP Internal Medicine; Visit Provider Family Medicine
DX: R07.9 Chest pain, unspecified (principal); K21.9 Gastro-esophageal reflux disease without esophagitis; R06.02 Shortness of breath; R60.0 Localized edema; I89.0 Lymphedema, not elsewhere classified; I12.9 Hypertensive chronic kidney disease with stage 1 through stage 4 chronic kidney disease, or unspecified chronic kidney disease; N18.4 Chronic kidney disease, stage 4 (severe); E66.01 Morbid (severe) obesity due to excess calories; Z68.41 Body mass index [BMI] 40.0-44.9, adult
CPT/HCPCS: 36415; 71045; 71275; 80048; 80076; 83690; 83735; 83880; 84484; 85025; 85379; 87631; 93005; 96374; 97116; 97161; 99285; A9153; A9270; G0378; J1885; Q9967

== ENCOUNTER 2024-12-14 13:36 | Outpatient (CLI) | payer MEDICARE, BC, SELFPAY ==
[2024-12-14] MEDS: PERFLUTREN LIPID MICROSPHERES 2 ML VIAL IVP (14:32)
[2024-12-14] MEDS: DOBUTamine 250 MG in 5 % DEXTROSE 250 ML 230 ML 71.7 MG IVPB (14:38)
--- NOTE | 2024-12-14 14:54 | W.PM.STED ---
Stress Test Note Date Date of test: 12/14/24 Providers Primary care provider: Diane Alejandra Stress test physician: Mihai Damian Stress Test Note Stress test ordered: Dobutamine Echo Indication for test: Chest pain and shortness of breath Stress test medicine: Dobutamine (Dobutamine/definity ) Results discussion: Patient is a very nice 89-year-old female who presents for the above test after discussion the risks benefits and side effects of this test he would like to proceed, pretest cardiac stress test medical history form is reviewed, this shows indication for test is chest pain, review was done. She is unable to walk, thus we have decided of dobutamine echo, she does have a very complex history, pretest EKG shows normal sinus rhythm, ventricular rate is 70 blood pressure 154/84. Patient is infused for a total time following Bryan protocol of 8 minutes 57 seconds and achieved a metabolic equivalent of 1.0 Mets, to be the main up to 40 mcg was used. At maximum heart rate was 121, which is 107% of the maximum with a maximum blood pressure 178 on 60. She had no symptoms of chest pain, shortness of breath there is no EKG evidence of any ST wave changes, she did have he a few times multiple PVCs in a bigeminal pattern, but this went away as she trended downward off the infusion. Impression: Negative electrographic portion of dobutamine stress echo Follow up suggested: Await echo images these were read by Cardiology, clinical correlation with this will be needed, patient will be discharged once she fulfills the criteria for discharge. Here there are no complications.
[2024-12-14 15:25] VITALS: BP 148/78; PULSE 89; RESP 18
== END 2024-12-14 13:37 | disposition home or self-care (01) ==
LOC: STRESS 13:37
PROVIDERS: PCP Internal Medicine; Visit Provider Family Medicine
DX: R07.89 Other chest pain (principal); R06.02 Shortness of breath
CPT/HCPCS: 93016; 93325; 93351; J1250; J7050; Q9957

== ENCOUNTER 2024-12-31 09:04 | Outpatient (CLI) | payer MEDICARE, BC, SELFPAY | END 2024-12-31 09:05 | disposition home or self-care (01) | LOC: NFLDREF 09:06 | PROVIDERS: PCP Internal Medicine; Visit Provider Family Medicine | DX: I10 Essential (primary) hypertension (principal); N18.4 Chronic kidney disease, stage 4 (severe) | CPT/HCPCS: 80048 ==

== ENCOUNTER 2024-12-31 09:28 | Outpatient (CLI) | payer MEDICARE, BC, SELFPAY | END 2024-12-31 09:29 | disposition home or self-care (01) | LOC: US 09:29 | PROVIDERS: PCP Internal Medicine; Visit Provider Family Medicine | DX: M79.604 Pain in right leg (principal); M79.605 Pain in left leg; Z86.718 Personal history of other venous thrombosis and embolism | CPT/HCPCS: 93970 ==

== ENCOUNTER 2025-04-19 13:00 | Outpatient (RCR) | payer MEDICARE, BC, SELFPAY ==
--- NOTE | 2024-09-09 17:51 | OT.OPLE2 ---
OT Outpatient Lymphedema Eval* OT Outpatient Lymphedema Eval* Start: 09/09/24 17:14 Freq: Status: Active Protocol: Document 09/09/24 17:14 MANUELITOHarpreet (Rec: 09/09/24 17:45 JLHarpreet [id number]) E-signed By Joseline Blas OT OT Outpatient Evaluation Details Type Type Eval Complexity Medium Insurance Information Insurance Information Insurance Information Blue Cross/Blue Shield, Medicare B Home Program Home Program Home Program Initiated Home Program Specifics MLD, HEP OT OP Lymphedema Evaluation Current Condition/Medical Diagnosis Referring Provider [facility] Medical Diagnoses I89.0 Lymphedema Treatment Diagnosis R22.43 Localized swelling, mass and lump, lower limb, bilateral Date Of Onset ongoing Medical Contraindications Depression,HTN Other Contraindications CKD4 Medical History Medical History Depression,Obesity,Renal Disease,Fall Risk Medications Medications lasix, 10mg/1x day, can increase to 2x a day but is hesitant to do so due to CKD4 Current Work Status Current Work Status Comments 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 Living Situation Current Living Situation Home With Spouse Or SO Patient Difficulties Difficulties With Any Of The Following Walking,Dressing,Reaching Feet & Toes,Bathing/Showering, Preparing Meals,Sleeping In Bed Impairments Impairments Loss of Mobility,Difficulties With ADLs,Limb Heaviness,Poor Clothing Fit Problem List Problem List Limited Knowledge of Lymphedema Treatment/Condition /Precautions,Limited Knowledge of Skin Care & Infection Precautions,Significant Risk For Infection For Lymphedema Related Complications,Does Not Have a HEP,Does Not Know How To Bandage For Limb Reduction, Does Not Have Appropriate Compression Garments For LT Management,Presents With Increased Fall Risk Secondary To Lymphedema,Presents With Impaired Mobility/ROM,Lack Of Caregiver Support,Financial Insecurity Exercise History Does Patient Exercise Regularly No Pain Pain Yes Pain Comments Significant, whole leg pain, has resulted in ED visits in the past Previous Treatment Previous Treatment For Swelling/ MLD,Compression Pump, Lymphedema Compression Garment,Multi- Layer Compression Bandages, Exercise,Elevation,Self Massage Compression History Compression During Daytime Comments Yes, but over last two weeks has not been able to fit. Does Patient Currently Wear Compression No At Night Compression At Night Comments Was wearing the velcro wraps at night but hasn't for many years. Current Swelling (Location/Pitting/Texture) Pitting Scale: 0 = No pitting 1+ Tissue returns to normal almost immediately 2+ Tissue returns after 15-30 seconds 3+ Tissue returns after 1-1/2 minutes 4+ Tissue returns after 2-3 minutes N/A Tissue no longer pits due to induration Tissue texture: Soft or indurated Clinical Presentation Area B LE, from dorsum of foot to mid thigh Triggering Event & Start Date of Approx 2 months ago Swelling/Lymphedema Clinical Presentation Pitting/Texture Hard shiny skin in B LE, on R LE small blisters forming but none popped. Fibrotic, skin worse in integrity and texture distally. Skin Changes Hemosiderin Staining, Hyperkeratosis,Fibrosis, Limited Skin Mobility Staging Staging Stage 2 Circumferential Measurements Lower Extremity Left Lower Extremity MTP (in cm) 23 Arch (in cm) 24 Calcaneus (in cm) 33.5 Ankle (in cm) 26.5 10 cm above Calcaneus Measurement 30.5 20 cm above Calcaneus Measurement 40.5 30 cm above Calcaneus Measurement 44.5 40 cm above Calcaneus Measurement 45.5 Total Girth in cm 268.0 Right Lower Extremity MTP (in cm) 24 Arch (in cm) 26 Calcaneus (in cm) 34 Ankle (in cm) 28 10 cm above Calcaneus Measurement 33.5 20 cm above Calcaneus Measurement 45.5 30 cm above Calcaneus Measurement 48 40 cm above Calcaneus Measurement 49 Total Girth in cm 288.0 Assessment Assessment Pt referred for OT Lymphedema following office visit discussion of recurring lymphedema in B LE. Pt received OP lymphedema therapy at this clinic approx 7 months ago, was doing well with home programming of her compression pump and compression stockings (20- 30mmHG Juzo). Pt's son was coming 6 days a week to don the pumps, however he is currently going through cancer tx and is only able to come a few times a week. Pt reports gaining 10lbs in the last month. Pt has velcro compression wraps as well, however reports they are 4 yr old and she doesn't use them. Pt is limited by pain, and lymphedema in B LE causing a significant hardship in her home and work life. Skilled OT for lymphedema is indicated at this time to decrease edema and pain. Pt will benefit from decongestive therapy, education on skin care and integrity, home program and home exercise; all in order to increase ability to safely participate in functional mobility, ADLs and IADLs. Patient Goals Patient Goals In six weeks Pt will able to.. . Patient will demo a decrease in BLE edema as evidenced by a 5 cm decrease in overall girth and decreased tightness of skin on BLE in order to improve skin integrity, pain and improve fit of LE garment. Patient will be able to teach back 100% of education on importance of skin care to prevent infection and maintain integrity of skin. Patient will be able to teach back 100% of education on manual lymphatic drainage HEP of BLEs to reduce lymphedema. Treatment Plan Treatment Plan Evaluation,Edema Control,Joint Mobilization,Manual Therapy, Therapeutic Exercise, Therapeutic Activities,Self- Care/Home Management,Caregiver Training,Education Expected Frequency 1-2x Week Expected Duration 4-6 Weeks Certification Certification Statement I Certify That: Therapy Services Provided, Therapy Plan Established, Therapy Plan Reviewed Certification Information Clinic ID # [id number] Initial Certification Date 09/09/24 Recertification Due Date 11/08/24 Provider Signature Required Yes Provider Signature Shows Agreement With POC & Medical Necessity Physician NPI Number Write NPI# Here Physician Comment/Change Comment or Changes Physician Signature & Date Requested Please Sign/Date Here
--- NOTE | 2025-02-25 14:48 | OT.OPLDN2 ---
OT Outpatient Lymphedema Daily Note OT Outpatient Lymphedema Daily Note* Start: 09/09/24 17:14 Freq: Status: Active Protocol: Document 02/24/25 17:55 KARLOS (Rec: 02/24/25 17:56 JLHarpreet [id number]) E-signed By Joseline Blas, OTR/L, CLT Type of Note Type of Note Type of Note Re-Evaluation Visit Number [id number] Insurance Information Insurance Information Insurance Information Blue Cross/Blue Shield, Medicare B Home Program Home Program Home Program Compliant Home Program Specifics MLD, HEP OT OP Lymphedema Daily/Progress Note Current Condition/Medical Diagnosis Referring Provider Helgen Treatment Diagnosis R22.43 Localized swelling, mass and lump, lower limb, bilateral Date Of Onset ongoing Medical Contraindications Depression,HTN Other Contraindications CKD4 Medical History Medical History Depression,Obesity,Renal Disease,Fall Risk Current Work Status Current Work Status Comments 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 Living Situation Current Living Situation Home With Spouse Or SO Patient Difficulties Difficulties With Any Of The Following Walking,Dressing,Reaching Feet & Toes,Bathing/Showering, Preparing Meals,Sleeping In Bed Impairments Impairments Loss of Mobility,Difficulties With ADLs,Limb Heaviness,Poor Clothing Fit Problem List Problem List Limited Knowledge of Lymphedema Treatment/Condition /Precautions,Limited Knowledge of Skin Care & Infection Precautions,Significant Risk For Infection For Lymphedema Related Complications,Does Not Have a HEP,Does Not Know How To Bandage For Limb Reduction, Does Not Have Appropriate Compression Garments For LT Management,Presents With Increased Fall Risk Secondary To Lymphedema,Presents With Impaired Mobility/ROM,Lack Of Caregiver Support,Financial Insecurity Exercise History Does Patient Exercise Regularly No Pain Pain Yes Pain Comments Legs are tender to medium pressure in the distal portions Previous Treatment Previous Treatment For Swelling/ MLD,Compression Pump, Lymphedema Compression Garment,Multi- Layer Compression Bandages, Exercise,Elevation,Self Massage Compression History Does Patient Currently Wear Compression Yes During Daytime Compression During Daytime Comments Has not regularly been wearing compression for last two months. Does Patient Currently Wear Compression No At Night Compression At Night Comments Was wearing the velcro wraps at night but hasn't for many years. Current Swelling (Location/Pitting/Texture) Pitting Scale: 0 = No pitting 1+ Tissue returns to normal almost immediately 2+ Tissue returns after 15-30 seconds 3+ Tissue returns after 1-1/2 minutes 4+ Tissue returns after 2-3 minutes N/A Tissue no longer pits due to induration Tissue texture: Soft or indurated Clinical Presentation Area B LE, from dorsum of foot to mid thigh Triggering Event & Start Date of Pt has had chronic lymphedema Swelling/Lymphedema for an unknown number of years , recall swelling in her 40s. Clinical Presentation Pitting/Texture BLEs skin is hard and shiny, brawny, dry and areas of scabbed wounds where skin had been weeping. Skin Changes Hemosiderin Staining,Fissures, Hyperkeratosis,Lymphorrhea,Toe /Foot Deformities,Fibrosis, Limited Skin Mobility Positive Stemmer's Sign Yes Type of Swelling Secondary Staging Staging Stage 2 Circumferential Measurements Lower Extremity Left Lower Extremity MTP (in cm) 24 Arch (in cm) 24 Calcaneus (in cm) 32 10 cm above Calcaneus Measurement 26 20 cm above Calcaneus Measurement 35 30 cm above Calcaneus Measurement 46 40 cm above Calcaneus Measurement 44 50 cm above Calcaneus Measurement 58 Total Girth in cm 289 Previous Total Girth in cm 256.0 Difference in Total Girth in cm 33.0 Right Lower Extremity MTP (in cm) 24 Arch (in cm) 26 Calcaneus (in cm) 33 10 cm above Calcaneus Measurement 28 20 cm above Calcaneus Measurement 40 30 cm above Calcaneus Measurement 49 40 cm above Calcaneus Measurement 44 50 cm above Calcaneus Measurement 56 Total Girth in cm 300 Previous Total Girth in cm 265 Difference in Total Girth in cm 35 Treatment Therapeutic Activity Minutes (minutes) 60 Therapeutic Activity Comments Pt educated on importance of compliance in home programming to have success with CDT, Pt verbalized understanding and agreement to plan. OTR completed full MLD sequence as needed for increased tissue mobility, ROM and decreased lymph girth. OT initiated diaphragmatic breathing 5x, and then stimulated the nodes first at the neck/collarbones, then axilla nodes, followed by opening of lymph flow down trunk and thighs. OT completed manual stretch and release technique throughout thigh, calf, with pin and stretch techniques with MFR to mobilize fibrosis. Foot and ankle attended to as well with manual techniques and then sequenced reversed to promote flow of lymphatic fluid into system. LE compression bandage system applied to lower legs to aid with edema reduction. Bandage system made up of: stockinette , artiflex from MTP to knee, 6 cm short stretch bandage from MTP to mid calf, 8cm short stretch bandage from heel to mid calf, and 10 cm short stretch bandage from mid calf to knee. Bandages applied with compression gradient to promote distal to proximal flow of lymph. Tubi first aid instructor applied over bandages to aid with keeping bandaging in place. Pt reports comfort after donning. Total Occupational Therapy Minutes 60 Assessment Assessment Pt sought lymphedema treatment last year and successfully underwent treatment and received garments and a compression pump. Pt was unable to maintain her home programming and returned to the clinic approx 6 months ago but had sporadic attendance and further decline in home programming. Pt took a 2 month pause and now returns with wounds on skin as her legs have been weeping from unmanaged lymphedema. Pt would benefit from CLT to preform complete decongestive therapy to reduced lymphedema and increase safety and participation in ADLs/IADLs. Patient Goals Patient Goals In six weeks Pt will able to.. . Patient will demo a decrease in BLE edema as evidenced by a 5 cm decrease in overall girth and decreased tightness of skin on BLE in order to improve skin integrity, pain and improve fit of LE garment. Patient will be able to teach back 100% of education on importance of skin care to prevent infection and maintain integrity of skin. Patient will be able to teach back 100% of education on manual lymphatic drainage HEP of BLEs to reduce lymphedema. Treatment Plan Treatment Plan Evaluation,Edema Control,Joint Mobilization,Manual Therapy, Therapeutic Exercise, Therapeutic Activities,Self- Care/Home Management,Caregiver Training,Education Expected Frequency 1-2x Week Expected Duration 4-6 Weeks Occupational Therapy Billing Units Treatment Minutes Timed Treatment Minutes 60 Total Treatment Minutes 60 Billing Units OT Re-Evaluation 1 Therapeutic Activities 4 Certification Statement Certification Statement I Certify That: Therapy Services Provided, Therapy Plan Established, Therapy Plan Reviewed Recertification Information Recertification Information Recertification Start Date 02/24/25 Recertification Due Date 05/25/25 Reasons to Continue Skilled Therapy Pt sought lymphedema treatment last year and successfully underwent treatment and received garments and a compression pump. Pt was unable to maintain her home programming and returned to the clinic approx 6 months ago but had sporadic attendance and further decline in home programming. Pt took a 2 month pause and now returns with wounds on skin as her legs have been weeping from unmanaged lymphedema. Pt would benefit from CLT/OT to preform complete decongestive therapy to reduced lymphedema and increase safety and participation in ADLs/IADLs. Rehabilitation Potential fair Click To Default 'Per treatment plan' Per treatment plan Continued Plan of Care and Interventions Per treatment plan Provider Signature Required Yes Provider Signature Shows Agreement With POC & Medical Necessity Physician NPI Number Write NPI# Here Physician Comment/Change Comment or Changes Physician Signature & Date Requested Please Sign/Date Here
== END 2025-08-17 23:59 | disposition home or self-care (01) ==
PROVIDERS: PCP Internal Medicine; Visit Provider Internal Medicine
DX: I89.0 Lymphedema, not elsewhere classified (principal); R22.43 Localized swelling, mass and lump, lower limb, bilateral; Z51.89 Encounter for other specified aftercare
CPT/HCPCS: 97110; 97140; 97166; 97168; 97530; 97535; X5282

== ENCOUNTER 2025-05-07 06:00 | Outpatient (CLI) | payer MEDICARE, BC, SELFPAY | END 2025-05-07 06:01 | disposition home or self-care (01) | LOC: AMB 05-09 10:44 | PROVIDERS: PCP Internal Medicine; Visit Provider Family Medicine | DX: R10.9 Unspecified abdominal pain (principal) | CPT/HCPCS: A0425; A0433 ==

== ENCOUNTER 2025-05-07 06:46 | Emergency (ER) | payer MEDICARE, BC, SELFPAY ==
--- OUTSIDE RECORDS SUMMARY | 2017-02-24 06:40 | XMS_ITS | Continuity of Care Document ---
Author Organization [facility] Address [address] [address] [place] [address] Phone Care Team Providers Care Care Companion Name Role Phone Kev HERNANDEZ, Baird Unavailable [...] Diagnoses Date Provider Providers Copied on Encounter [facility], [address] [address], [place], [place], [id number], tel:[phone] [facility] No Information Kev Hanahim. [address], [id number], [place]. tel:[phone] Israel Collazo MD. tel:[phone] [facility], [address] [address], [place], [place], [id number], tel:[phone] [facility] Diarrhea, unspecified Kev Hanahim. [address], [id number], [place]. tel:[phone] Israel Collazo MD. tel:[phone] erring Provider: Referral Self, USE FOR SELF REFERRALS. Offic/outpt E&m [facility], [address] [address], [place], [place], [id number], tel:[phone] [facility] GI Symptoms or Concerns (chief complaint) Altered bowel habitsDiarrhea , unspecified typeDietary counseling and surveillance Kev Hanahim. [address] [place] [address], [id number], . tel:[phone] Referring Provider: Referral Self, USE FOR SELF REFERRALS. Family History Family Member Type Diagnosis Age At Onset Son Problem (finding) Alive and well Mother Problem (finding) stroke Son Problem (finding) alcoholism Father Problem (finding) malignant neoplasm of l devora Sister Problem (finding) vaginal cancer Payers Payer name Insurance type Covered green party ID Authorvladislava tion(s) Medicare NGS MB [id number] [facility] [id number] Social History Type Description Quantity Date Captured [...] or vomiting. Patient was recently seen at [facility] where she underwent the following tests: Colonoscopy: Diverticulosis in the descending colon, and in the transverse colon. Patent [id number] ileocolonic anastomosis, characterized by healthy appearing mucosa. [...]
[2025-05-07] VITALS (14 sets, daily range): BP systolic 96–180; BP diastolic 40–69; PULSE 70–87; RESP 16–20; TEMP 37.2–39.1; O2SAT 89–96; BMI 43.3
--- OUTSIDE RECORDS SUMMARY | 2025-05-07 06:48 | XMS_ITS | Clinical Summary ---
Author Organization [facility] Address [address] [place] [id number] Care Team Providers Care Wood Flour Miller Name Role Phone Diane Alejandra MD Primary [...] by automated process. 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 Gender Identity Not on file Sexual Orientation Not on file Occupation Industry Job Start Date Job End Date Not on file Not on file Not on file Not on file Last Filed Vital Signs Vital Sign Reading Time Taken Comments Blood Pressure 120/43 12/01/2019 9:50 AM TELEGRAPH SERVICE RATER Pulse 67 11/29/2019 6:00 PM TELEGRAPH SERVICE RATER Temperature 36.3 C (97.4 F) 12/01/2019 9:50 AM TELEGRAPH SERVICE RATER Respiratory Rate 16 12/01/2019 9:50 AM TELEGRAPH SERVICE RATER Oxygen Saturation 96% 12/01/2019 9:50 AM TELEGRAPH SERVICE RATER Inhaled Oxygen Concentration - - Weight 108 kg (238 lb) 11/29/2019 8:06 AM TELEGRAPH SERVICE RATER Height 165.1 cm (5' 5) 11/29/2019 8:06 AM TELEGRAPH SERVICE RATER Body Mass Index 39.61 11/29/2019 8:06 AM TELEGRAPH SERVICE RATER Plan of Treatment Health Maintenance Due Date Last Done Comments ADVANCE CARE PLANNING 1935 ANNUAL REVIEW OF HM ORDERS 1935 FALL RISK ASSESSMENT 2002 LIPID 09/15/2010 09/15/2009, 03/17, 03/31/2007, Additional history exists TSH W/FREE T4 REFLEX 09/15/2010 09/15/2009, 07/01/2007, 08/15/2006, Additional history exists RSV VACCINE (1 - 1-dose 75+ series) 2012 DEXA 06/27/2020 06/27/2005 COVID-19 VACCINE ( season) 2024 09/12/2021, 02/17/2021, 01/27/2021 PHQ-2 (once per calendar year) 2024 INFLUENZA VACCINE (Season Ended) 2025 08/27/2022, 09/14/2021, 08/17/2020, Additional history exists DTAP/TDAP/TD VACCINE (2 - Td or Tdap) 11/19/2026 11/19/2016, 08/10/2010, 08/10/2010, Additional history exists PNEUMOCOCCAL VACCINE 50+ YEARS Completed 09/29/2015, 08/10/2010, 09/05/1994 ZOSTER VACCINE Completed 10/29/2018, 02/2018, 08/13/2012 HPV VACCINE Aged Out No longer eligi ble based on patient's age to complete this topic MENINGITIS VACCINE Aged Out No longer eligible based on patient's age to complete this topic Medical Devices Implanted Type Area Associate Professor Of Radiology Device Identifier Shelf Expiration Date Model / Serial / Lot Imp Scr Zim 6.5x30mm Acet Cup Self Tap [id number] Implanted:Qty: 1 on 11/29/2019 by Tomas Eckert MD at [facility] Metallic Hardware/An chor Left: Hip [employer] 07/17/[id number] / / [id number] Imp Shell Biom G7 Acetab Pps Carrillo Hole 52mm Sz E [id number] Implanted:Qty: 1 on 11/29/2019 by Tomas Eckert MD at [facility] Total Joint Component/I nsert Left: Hip [employer] 06/25/2029 [id number] / / [id number] Imp Stem Fem Biom Taperloc Hi Offset Type 1 [id number] Implanted:Qty: 1 on 11/29/2019 by Tomas Eckert MD at [facility] Total Joint Component/I nsert Left: Hip [employer] 03/23/2029 [id number] / / [id number] Acetabular Liner Neutral, 36mm Head Size, E Liner Size Implanted:Qty: 1 on 11/29/2019 by Tomas Eckert MD at [facility] Left: Hip [employer] 08/27/2024 [id number] / / [id number] Biol[employer] Delta Hip System Modular Ceramic Head, Type 1 Taper, 36mm Head 0 Standard Neck Implanted:Qty: 1 on 11/29/2019 by Tomas Eckert MD at [facility] Left: Hip [employer] 03/22/2029 [id number] / / [id number] Procedures Procedure Name Priority Date/Time Associated Diagnosis [...] CDT) TSH 4.59 0.4 - 5.0 mU/L [facility] 09/15/2009 12:2 5 PM CDT 09/15/2009 12:30 PM CDT us Nader Garibay MD LABORATORY Final Resu lt [facility] [address] [place] [address] * (ABNORMAL) A.M.A. LIPID PANEL (09/15/2009 12:25 PM CDT) Cholesterol 197 0 - 200 mg/dL [facility] Comment: LDL Cholesterol is the primary guide to therapy: LDL-cholesterol goal in high risk patients is <100 mg/dL and in very high risk patients is <70 mg/dL. The NCEP recommends further evaluation of: patients with cholesterol <200 mg/dL if additional risk factors are present, cholesterol >240 mg/dL, triglycerides >150 mg/dL, or HDL <40 mg/dL. Triglycerides 150 0 - 150 mg/dL [facility] HDL Cholesterol 45(L) 50 - 110 mg/dL [facility] LDL Cholesterol Calculated 122 0 - 129 mg/dL [facility] VLDL-Cholesterol 30 0 - 30 mg/dL [facility] Cholesterol/HDL Ratio 4.4 0.0 - 5.0 [facility] 09/15/2009 12:2 5 PM CDT 09/15/2009 12:30 PM CDT us Nader Garibay MD LABORATORY Final Resu lt [facility] [address] [place] [address] * DEXA, BONE DENSITY, AXIAL SKEL (06/27/2005) Anatomical Region Laterality Modality Other 06/27/2005 us Isaac Mason SPECIAL IMAGING STUDIES Fin al Result from Last 3 Months or Most Recently Relevant to Health Maintenance Insurance [facility] Address: [address] [address] [place] [address] MEDICARE Care Teams Wood Flour Miller Relationship Specialty Start Date End Date Diane Alejandra MD [facility] [address] [place] [address] PCP - General Internal Medicine 10/17/17
--- OUTSIDE RECORDS SUMMARY | 2025-05-07 06:48 | XMS_ITS ---
Author Organization [facility] Address [address] [place] [address] Care Team Providers Care Denitrator Name Role Phone Elsewhere, Pcp Primary Care Provider Unavailabl e [employer] Assistant Program Status:Enrolled (Active) Start date:12/25/2023 Enrollment date:01/22/2024 Enrollment reason:Referred by provider Current support & services provided:Stage 3b Case Team Name Relationship Phone Juan Carlos Finney R.N. Registered Nurse [phone] Continued Care and Services Coordination
--- OUTSIDE RECORDS SUMMARY | 2025-05-07 06:48 | XMS_ITS | Encounter Summary ---
Author Organization [facility] Address [address] [place] [address] Care Team Providers Care Household Coordinator Name Role Phone Elsewhere, Pcp Primary Care Provider Unavailabl e Encounter Details Date Type Department Care Team (Late st Contact Info) Description 03/30/2025 Clinical Communication Division of Nephrology and Hypertension, [facility], in [place], [place] [address] [place] [address] Juan Carlos Finney, RSharonN. [address] [place] [phone] Social History Tobacco Use Types Packs/Day Years Used Date Smoking Tobacco: Never Passive Smoke Exposure: Past Smokeless Tobacco: Never Alcohol Use Standard Drinks/Week [...] by your partner or ex-partner? No 03/10/2023 Hunger Vital Sign Answer Date Recorded [...] or slept in a assisted (including now)? No 03/10/2023 Depression Answer Date Recor ded PHQ-9 Total Score (max 27) 15 03/22 Education Answer Date Recorded What is the highest level of school you have completed or the highest degree you have received? Associate degree: occupational, technical, or vocational program 02/19/2022 Comments No Sex and Gender Information Value Date Recorded Sex Assigned at Female 02/19/2022 7:48 AM CDT Legal Sex Female 10:53 AM [employer]PER[employer] Gender Identity Female 02/19/2022 7:48 AM CDT Sexual Orientation Straight 02/19/2022 7: 48 AM CDT documented as of this encounter Miscellaneous Notes * Telephone Encounter - Juan Carlos Finney R.N. - 03/30/2025 1:41 PM CDT Mrs. Sorensen called and left a message telling the nephrology team she needed to speak with us. I returned a call to the patient to ask her what she needed to discuss with us. She reported that she was reading a [facility] patient book, and it noted that dark urine can be a sign of worsening health problems. She decided to call us to let us know that for the last two months, she has noted dark streaks in her underwear after she urinates. I asked her if she had any pain with urination, and shestated no. I also asked if the urine in the toilet was dark or tea colored. She noted that it wasclear, straw-colored liquid. She was worried she might be dehydrated, but she reports no lightheadedness or change in BP. She reports drinking 1500- 2000 ml of water daily and measures with a hospital mug. She discussed that she has had some lower extremity swelling and wanted to take an extra torsemide dose as she was instructed, but was reluctant because of the dark stains in her underwear. I discussed whether she drinks that much water; she is probably not dehydrated. I asked her if she has had any new bleeding or vaginal drainage and she stated none that she was aware of. I explained thatthe stains may be from a source other than her urine. She reports no fever. pungent or cloudy urineor pain with urination. I explained that if she notes any pain with urination, bleeding, or fever, she is to seek medical evaluation. I thanked her for calling and discussed that I would communicate her concerns to Nephrology, Maddie Velásquez NP. documented in this encounter Plan of Treatment Not on file documented as of this encounter Visit Diagnoses Not on filedocumented in this encounter Additional Health Concerns Assessment Noted Time PHQ-9 Depression Total Score: 15 021 12:16 PM CDT documented as of this encounter Care Teams Household Coordinator Relationship Specialty Start Date End Date Elsewhere, Pcp PCP - General Internal Medicine 03/26/22 documented as of this encounter
--- OUTSIDE RECORDS SUMMARY | 2025-05-07 06:48 | XMS_ITS | Encounter Summary ---
Author Organization [facility] Address [address] [place] [address]. [place] [address] Care Team Providers Care Side Boss Name Role Phone Nader Garibay MD Primary Care Provider [phone] Diane Alejandra MD Primary Care Provider Encounter Details Date Type Department Care Team (Late st Contact Info) Description 09/29/[address] [address] Ceferino Rodríguez MD NO INFO AVAILABLE Social History Tobacco Use Types Packs/Day Years Used Date Smoking Tobacco: Never Smokeless Tobacco: Never Alcohol Use Standard Drinks/Week Comments Yes 0 (1 standard drink = 0.6 oz pur e alcohol) 2drinks a month Comments No Sex and Gender Information Value Date Recorded Sex Assigned at Not on file 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 The inés haines called on 05/31/02 and stated that she would be leaving [facility] and asked if it would be okay to p judee her surgery until September. We recommended that she not do this, but the patient left and ca lled us upon her return to [facility]. She is now being admitted to the [...] RODRÍGUEZ MD T: 09/2002 17:25 MT: Document: [id number] [place], [place] Name: JOSE NEWMAN VIELKA M HISTORY AND PHYSICAL Page 2 of 2 LCN: SDS DSC: 09/29/2002 [place], [place] Name: MR#: : Admit Date: PrinceTODDANASTASIA NEWMANENE Jocelyn -[id number] Doctor: CEFERINO RODRÍGUEZ MD HISTORY AND PHYSICAL Page 1 of 2 Electronically filed by Tiffanie Del Castillo 10/01/2002 2:51 PM 00:00 Operative Report-[facility] CEFERINO RODRÍGUEZ) [Entered: 00:00 Probate Judge ([facility])] : 39 1st ASS'T: 2nd ASS'T: PRE-OPERATIV E DIAGNOSIS: Postmenopausal vaginal bleeding. POST-OPERATIVE DIAGNOSIS: Postmenopausal vaginal ble eding. OPERATION: Fractional dilation and curettage; diagnostic hysteroscopy. ANESTHESIA: General . PROCEDURE: Vielka Card was taken to the operating room with an I.V. running in the [facility]. She was placed on the operating [...] home. [id number] CEFERINO RODRÍGUEZ MD MT: Document: [id number] [place], [place] Name: VIELKA CARD OPERATIVE REPORT Page 2 of 2 LCN : MS2 DSC: 09/30/2002 [place], [place] Name: MR#: : Procedure Vitor e: PrinceVIELKA ALARCON -[id number] 09/29/2002 Doctor: CEFERINO RODRÍGUEZ MD OPERATIVE REPO RT Page 1 of 2 Electronically filed by Cali Felipe 10/05/2002 2:15 PM documented in this encounter Plan of Treatment Not on file documented as of this encounter Visit Diagnoses Not on filedocumented in this encounter Care Teams Side Boss Relationship Specialty Start Date End Date Nader Garibay MD PCP - General 01/01/02 10/16/17 Diane Alejandra MD [address] [address] PCP - General Internal Medicine 10/17/17 documented as of this encounter
--- OUTSIDE RECORDS SUMMARY | 2025-05-07 06:48 | XMS_ITS | Clinical Summary ---
Author Organization [facility] Address [address] [place] [address] Care Team Providers Care Manufacturing Recruiter Name Role Phone Elsewhere, Pcp Primary Care Provider Unavailabl e Source Comments Patient records contain information from all sites at [facility]. For routine questions regarding patient records, call [phone] during business hours, M-F 8:00 AM - 5:00 PM Central Time. Record requests for emergency care only can be directed to [phone] at any time.[facility] Allergies Active Allergy Reactions Criticality Noted Date Comments Amoxicillin-Pot Clavulanate Nausea And Vomiting Medium 04/03/2006 Furosemide Rash Medium 02/11/2023 Ibuprofen Other (see comments) Medium 09/27/2002 in large quantities- personality change and kidney function Tazobactam Nausea Only Medium 11/29/2019 Tetracycline Other (see comments) Medium 09/28/2002 Yeast infection Medications buPROPion XL (WELLBUTRIN XL) 300 mg 24 hr tablet Take 300 mg by mouth daily. Active levothyroxine (SYNTHROID, LEVOTHROID) 25 mcg tablet Take 25 mcg by mouth daily. Active sennosides (SENNA LAX ORAL) Take 8.6 mg by mouth as needed (constipation). 10/15/20 07 Active ZINC ACETATE ORAL Take 50 mg by mouth daily. Active collagen, hydrolysate, bovine, (collagen, hydr, bovine,, bulk,) 100 % powder Take 1 Dose by mouth daily. Active simvastatin (ZOCOR) 20 mg tablet Take 20 mg by mouth every other day. 08/26/20 21 Active clobetasol propionate 0.05 % in petrolatum Apply 60 g topically 2 (two) times a day. Apply to legs Active acetaminophen (TYLENOL 8 HR) 650 mg ER tablet Take 1,300 mg by mouth every 8 (eight) hours as needed for pain. Active Lactobacillus acidophilus (PROBIOTIC ORAL) Take 2 capsules by mouth daily. bio complete Active UNABLE TO FIND Take by mouth daily. Med Name: Lymph Support Contains echinacea, dandelion, burdock, priyanka, lemon peel, Bromelain, Fucoxanthin Rich Seaweed Active torsemide (Demadex) 10 mg tablet TAKE 1 TABLET DAILY, TAKE AN ADDITIONAL 10MG TABLET DAILY FOR WEIGHT GAIN OF 3LBS OVERNIGHT OR 5LBS OVER 1 WEEK 90 tablet 3 12/31/19 25 Active allopurinoL (Zyloprim) 100 mg tablet TAKE 1/2 TABLET(50MG TOTAL)DAILY 45 tablet 3 12/31/19 25 Active omeprazole (PriLOSEC) [address] capsule Take 20 mg by mouth daily. 02/14/20 25 Active HERBAL DRUGS ORAL Take 1 Dose by mouth daily. Nopalea juice - 1 shot daily Active HERBAL DRUGS ORAL Take 1 tablet by mouth daily. procaps essential 1 Vitamin A (as natural beta carotene)200 mcg GAY (667 IU) Vitamin C (as calcium ascorbate)200 mg Vitamin D3 (as cholecalciferol)25 mcg (1,000 IU) Vitamin E (as natural d-alpha tocopheryl succinate)40 mg (60 IU) Vitamin B1 (as thiamin hydrochloride)10 mg Vitamin B2 (as riboflavin)10 mg Niacin (as niacinamide/chromiu m nicotinate)20 mg Pantothenic Acid (as calcium pantothenate)20 mg Vitamin B6 (as pyridoxal 5'-phosphate)10 mg Vitamin B12 (as methylcobalamin - protected Coenzyme B12)100 mcg Folate (as L-3-fekuqarfikmvoer ofolate)400 mcg DFE Biotin1,200 mcg Calcium (as calcium ascorbate/carbonate )80 mg Magnesium (as magnesium oxide)40 mg Zinc (as zinc citrate/oxide)15 mg Selenium (as sodium selenite)150 mcg Copper (as copper citrate)1 mg (1,000 mcg) Manganese (as manganese citrate) 2.3 mg (2,300 mcg) Chromium (as chromium nicotinate)120 mcg Molybdenum (as molybdenum glycinate)75 mcg Coenzyme Q-10 (natural ubiquinone) 10 mg Vitamin K2 MK-7 (as menaquinone-7)40 mcg Nash (as potassium borate) 100 mcg Vanadium (as vanadyl sulfate) 50 mcg Lutein 1 mg (1,000 mcg) Lycopene 1 mg (1,000 mcg) Zeaxanthin Complex 500 mcg Active vitamins A,C,E-zinc-carissa er (PreserVision AREDS) 7,160 Units-113 mg-100 Units per tablet Take 1 tablet by mouth daily. Active HERBAL DRUGS ORAL Take 1 tablet by mouth daily. NerveFresh Vitamin C, Vitamin D, Turmeric, Zinc, Green Tea Extract, Marquita Root Extract, Cinnamon, Magnesium Oxide, and R-Alpha Lipoic Acid. Other potentially included ingredients are Folate, Vitamin B6, Acetyl L-Carnitine HCl, and Benfotiamine. Active camphor-eucalyp tus oiL-menthoL (Vicks Vaporub) 4.8-1.2-2.6 % ointment Apply 1 Application topically 3 (three) times a day as needed (toe nails). Apply to toe nails Active nystatin (Klayesta) 100,000 unit/gram powder Apply 1 Application topically daily. Apply to genitals and under breasts for itching Active DME CPAPIndications :Obstructive Sleep Apnea Adult DME Order 1 each 03/09/20 25 Active lisinopriL 20 mg tablet TAKE 1 TABLET DAILY 90 tablet 3 03/18/20 25 Active Farxiga 10 mg tablet TAKE 1 TABLET DAILY 90 tablet 3 03/18/20 25 Active Active Problems Problem Noted Date Diagnosed [...] Encounters Date Type Department Care Team Description 03/30/2025 Clinical Communication Division of Nephrology and Hypertension, [facility], in [place], [place] [address] [place] [phone] Juan Carlos Finney, R.N. 03/17/2025 Refill Division of Nephrology and Hypertension in [place], [place] [address] [place] [phone] Maddie Velásquez APRN C.N.P., M.S. Med Refill 03/10/2025 Orders Only Division of Nephrology and Hypertension in [place], [place] [address] [place] [phone] Juan Carlos Finney, Amisha. Chronic Kidney Disease Stage 4 Glomerular Filtration Rate 15-29 (HCC) (Primary Dx) 03/09/2025 2:30 PM CDT Education Division of Nephrology and Hypertension in [place], [place] [address] [place] [phone] Maddie Velásquez APRN, C.N.P., M.S. Juan Carlos Finney, R.N. Chronic Kidney Disease Stage 4 Glomerular Filtration Rate 15-29 (HCC) 03/09/2025 1:45 PM CDT Office Visit Division of Nephrology and Hypertension in [address] [phone] Maddie Velásquez APRN, C.N.P., M.S. Chronic Kidney Disease (CKD), Stage 3b Glomerular Filtration Rate (GFR) 30 To 44 (HCC) (Primary Dx); Chronic Kidney Disease Stage 4 Glomerular Filtration Rate 15-29 (HCC) 03/09/2025 12:00 PM CDT Office Visit [facility] in [place], [place] [address] [place] [phone] Sammy Reno M.D. Obstructive Sleep Apnea Adult 03/09/2025 10:56 AM CDT - 03/09/2025 11:59 PM CDT Hospital Encounter Department of Laboratory Medicine and Pathology, [facility], in [place], [place] [address] [place] [phone] Maddie Velásquez APRN, C.N.P., M.S. Chronic Kidney Disease Stage 4 Glomerular Filtration Rate 15-29 (HCC); Hyperparathyroidis m Secondary (HCC); Hypertensive Heart And Chronic Kidney Disease Without Heart Failure With Stage 1 To 4 Chronic Kidney Disease Or Unspecified Chronic Kidney Disease Discharge Disposition: Home or Self Care 03/09/2025 10:45 AM CDT - 03/09/2025 10:55 AM CDT Hospital Encounter Department of Laboratory Medicine and Pathology, [facility] in [address] [phone] Maddie Velásquez APRN, C.N.P., M.S. Chronic Kidney Disease Stage 4 Glomerular Filtration Rate 15-29 (HCC) Discharge Disposition: Home or Self Care 03/07/2025 9:30 AM CDT Clinical Communication Virtual Review in [address] [phone] Pre-visit Intake 03/03/2025 Orders Only Division of Nephrology and Hypertension in [address] [phone] Juan Carlos Finney RGiacomo. Chronic Kidney Disease Stage 4 Glomerular Filtration Rate 15-29 (HCC) (Primary Dx) from Last 3 Months Immunizations Immunization Administration Dates Next Due H1N1 All Forms [...] Relation Name Comments Lung cancer Father josias rtmodestoch Stroke Mother chuckie romeo Ovarian cancer Sister 1 pat milan Kidney cancer Sister 2 allen cohen kidney rem sherice Ovarian cancer Sister 2 allen cohen Ovarian cancer [facility] Relation Name Status Comments Father josias rtesch Mother chuckie romeo Sister 1 jimmy celisond Sister 2 allen adamegam Sister 3 alvarez [place] Social History Tobacco [...] money to buy more. 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 Gender Identity Female 02/19/2022 7:48 AM CDT Sexual Orientation Straight 02/19/2022 7: 48 AM CDT Last Filed Vital Signs Vital Sign Reading Time Taken Comments Blood Pressure 148/72 03/09/2025 1:37 PM CDT Pulse 64 03/09/2025 1:37 PM CDT Temperature 35.7 C (96.3 F) 03/09/2025 1:37 PM CDT Respiratory Rate - - Oxygen Saturation 97% 08/15/2021 11:41 AM CDT Inhaled Oxygen Concentration - - Weight 121 kg (266 lb 8.6 oz) 03/09/2025 1:37 PM CDT Height 159.7 cm (5' 2.87) 03/09/2025 1:37 PM CD T Body Mass Index 47.4 03/09/2025 1:37 PM CDT Plan of Treatment Health Maintenance Due Date Last Done Comments Hepatitis B Vaccines (3 of 3 - 19+ 3-dose series) 06/11/2005 01/15/2005, 12/12/2004 RSV vaccine - (32-36 weeks) or 60+ years (1 - 1-dose 75+ series) 2012 Depression Screening (Annual PHQ-2) 11/17/2024 Fall Risk Screen (Annual) 11/17/2024 COVID-19 Vaccine ( season) 2025 09/03/2024, 09/12/2021, 02/17/2021, Additional history exists Creatinine Level (Kidney Function Test) 03/09/2026 03/09/2025, 11/11/2024, 05/25/2024, Additional history exists Potassium Level 03/09/2026 03/09/2025, 10/18, 05/25/2024, Additional history exists Sodium Level 03/09/2026 03/09/2025, 10/18, 05/25/2024, Additional history exists DTaP,Tdap,and Td Vaccines (2 - Td or Tdap) 11/19/2026 11/19/2016, 08/10/2010, 01/24/2000 Pneumococcal vaccine (50+ years) Completed 09/29/2015, 08/10/2010, 09/05/1994 Zoster Vaccines Completed 10/29/2018, 02/2018, 08/13/2012 Influenza Vaccine Completed 09/03/2024, , 08/27/2022, Additional history exists IPV Vaccines Aged Out No longer eligi ble based on patient's age to complete this topic Medical Devices Implanted Type Area Ruby Software Developer Device Identifier Shelf Expiration Date Model / Serial / Lot Dental Implant Hardware e.g. pins/screws/ rods Mouth Description:Patient states [...] Procedure Name Priority Date/Time Associated Diagnosis Comments 25-HYDROXYVITAMIN D2 AND D3, S Routine 03/09/2025 11:47 AM CDT Hyperparathyroidism Secondary (HCC) Hypertensive Heart And Chronic Kidney Disease Without Heart Failure With Stage 1 To 4 Chronic Kidney Disease Or Unspecified Chronic Kidney Disease URIC ACID, S/P Routine 03/09/2025 11:47 AM CDT Hyperparathyroidism Secondary (HCC) Hypertensive Heart And Chronic Kidney Disease Without Heart Failure With Stage 1 To 4 Chronic Kidney Disease Or Unspecified Chronic Kidney Disease PARATHYROID HORMONE (PTH), S Routine 03/09/2025 11:47 AM CDT Chronic Kidney Disease Stage 4 Glomerular Filtration Rate 15-29 (HCC) RENAL FUNCTION PANEL, S Routine 03/09/2025 11:47 AM CDT Chronic Kidney Disease Stage 4 Glomerular Filtration Rate 15-29 (HCC) CBC WITHOUT DIFFERENTIAL, B Routine 03/09/2025 11:47 AM CDT Chronic Kidney Disease Stage 4 Glomerular Filtration Rate 15-29 (HCC) CA OSMOLALITY ASSAY URINE Routine 03/09/2025 10:54 AM CDT DIPSTICK, U Routine 03/09/2025 10:54 AM CDT PH, RANDOM, U Routine 03/09/2025 10:54 AM CDT MICROSCOPIC MANUAL Routine 03/09/2025 10 :54 AM CDT ALBUMIN, RANDOM, U Routine 03/09/2025 10 :54 AM CDT Chronic Kidney Disease Stage 4 Glomerular Filtration Rate 15-29 (HCC) URINALYSIS WITH MICROSCOPIC Routine 03/09/2025 10:54 AM CDT Chronic Kidney Disease Stage 4 Glomerular Filtration Rate 15-29 (HCC) from Last 3 Months Results * (ABNORMAL) Renal Function Panel (03/09/2025 11:47 AM CDT) Potassium, S 4.8 3.6 - 5.2 mmol/L 03/09/2025 1:01 PM CDT DTL Sodium, S 141 135 - 145 mmol/L 03/09/2025 1:01 PM CDT DTL Chloride, S 105 98 - 107 mmol/L 03/09/2025 1:01 PM CDT DTL Bicarbonate, S 25 22 - 29 mmol/L 03/09/2025 1:01 PM CDT DTL Anion Gap 11 7 - 15 03/09/2025 1:01 PM CDT DTL BUN (Blood Urea Nitrogen), S 26(H) 6 - 21 mg/dL 03/09/2025 1:01 PM CDT DTL Creatinine 1.34(H) 0.59 - 1.04 mg/dL 03/09/2025 1:01 PM CDT DTL Estimated GFR (eGFR) 38(L) >=60 mL/min/BSA 03/09/2025 1:01 PM CDT DTL Comment: Estimated GFR calculated using the 2020 CKD_EPI creatinine equation. Calcium, Total, S 9.6 8.8 - 10.2 mg/dL 03/09/2025 1:01 PM CDT DTL Glucose, S 107 70 - 140 mg/dL 03/09/2025 1:01 PM CDT DTL Albumin, S 4.2 3.5 - 5.0 g/dL 03/09/2025 1:01 PM CDT DTL Phosphorus (Inorganic), S 3.3 2.5 - 4.5 mg/dL 03/09/2025 1:01 PM CDT DTL Blood (Blood, Venous) 03/09/2025 11:47 AM CDT 03/09/2025 12:28 PM CDT Maddie Velásquez APRN C.N.P., M.S. LAB BLOOD AD D-ON Final Result [facility] [address] [place], [place] [address] DTL [facility] [place] [facility] [place] [address] [place] [address] * 25-Hydroxyvitamin D2 and D3 (03/09/2025 11:47 AM CDT) 25-Hydroxy D2 <4.0 ng/mL 03/14/2025 9:05 AM CDT SDS 25-Hydroxy D3 34 ng/mL 03/14/2025 9:05 AM CDT SDS 25-Hydroxy D Total 34 ng/mL 2024 9:05 AM CDT [facility] Comment: ----REFERENCE VALUE---- 25-HYDROXY D TOTAL (D2+D3) Optimum levels in the healthy population are 20-50. ----ADDITIONAL INFORMATION---- This test was developed and its performance characteristics determined by [facility] in a manner consistent with CLIA requirements. This test has not been cleared or approved by the U.S. Food and Drug Administration. Blood (Blood, Venous) 03/09/2025 11:47 AM CDT 03/10/2025 7:49 AM CDT Kitty Miller APRN.N.P., M.S. LAB BLOOD AD D-ON Final Result [facility] [place] [address] [place] [address] [facility] [address] [place] [address] [place] [address] * CBC without Differential (03/09/2025 11:47 AM CDT) Hemoglobin 13.2 11.6 - 15.0 g/dL 03/09/2025 12:37 PM CDT DTL Hematocrit 42.1 35.5 - 44.9 % 03/09/2025 12:37 PM CDT DTL Erythrocytes 4.57 3.92 - 5.13 x10(12)/L 03/09/2025 12:37 PM CDT DTL MCV 92.1 78.2 - 97.9 fL 03/09/2025 12:37 PM CDT DTL RBC Distrib Width 14.1 12.2 - 16.1 % 03/09/2025 12:37 PM CDT DTL Platelet Count 203 157 - 371 x10(9)/L 03/09/2025 12:37 PM CDT DTL Leukocytes 6.7 3.4 - 9.6 x10(9)/L 03/09/2025 12:37 PM CDT DTL Blood (Blood, Venous) 03/09/2025 11:47 AM CDT 03/09/2025 12:10 PM CDT Kitty Miller APRN.N.P., M.S. LAB BLOOD AD D-ON Final Result [facility] [address] [place] [address] * Uric Acid (03/09/2025 11:47 AM CDT) Uric Acid, S 5.9 2.7 - 6.1 mg/dL 03/09/2025 1:01 PM CDT DTL Blood (Blood, Venous) 03/09/2025 11:47 AM CDT 03/09/2025 12:28 PM CDT Maddie Velásquez APRN C.N.P., M.S. LAB BLOOD AD D-ON Final Result Performing Organization Address City/[facility]/ZIP Co de Phone Number [facility] [address] [place] [address] * (ABNORMAL) Parathyroid Hormone (PTH) (03/09/2025 11:47 AM CDT) Parathyroid Hormone (PTH), S 127(H) 15 - 65 pg/mL 03/09/2025 1:01 PM CDT DTL Blood (Blood, Venous) 03/09/2025 11:47 AM CDT 03/09/2025 12:28 PM CDT Kitty Miller APRN.N.P., M.S. LAB BLOOD AD D-ON Final Result Performing Organization Address City/[facility] Co de Phone Number [facility] [address] [place] [address], [place] [address] * Osmolality, Urine (03/09/2025 10:54 AM CDT) Pathologist [facility] Osmolality, U 570 150 - 1150 mOsm/kg 03/09/2025 12:12 PM CDT DTL Urine 03/09/2025 10:5 4 AM CDT 03/09/2025 11:41 AM CDT Kitty Miller APRN.N.P., M.S. LAB URINE OR DERABLES Final Result Performing Organization Address [facility] Co de Phone Number [facility] [address] [place] [address] * (ABNORMAL) Dipstick, Urine (03/09/2025 10:54 AM CDT) Hemoglobin, QL, U Trace(A) Negative 03/09/2025 11:49 AM CDT DTL Leukocyte Esterase, U Moderate(A) Negative 03/09/2025 11:49 AM CDT DTL Nitrite, U Negative Negative 03/09/2025 11:49 AM CDT DTL Ketone, U Negative Negative mg/dL 03/09/2025 11:49 AM CDT DTL Glucose, U >=1000(A) Negative mg/dL 03/09/2025 11:49 AM CDT DTL Urine 03/09/2025 10:5 4 AM CDT 03/09/2025 11:41 AM CDT Kitty Miller APRN.N.P., M.S. LAB URINE OR DERABLES Final Result Performing Organization Address [facility] [place] [place] [address] * pH, Random, Urine (03/09/2025 10:54 AM CDT) pH, Random, U 5.9 4.5 - 8.0 03/09/2025 12:12 PM CDT DTL Urine 03/09/2025 10:5 4 AM CDT 03/09/2025 11:41 AM CDT us Kitty Miller APRN.N.P., M.S. LAB URINE OR DERABLES Final Result Performing Organization Address [facility] [place] [address] * (ABNORMAL) Microscopic Manual (03/09/2025 10:54 AM CDT) Microscopy Abnormal 03/09/2025 1:01 PM CDT DTL RBC <3 <3 /hpf 03/09/2025 1:01 PM CDT DTL WBC >100(A) /hpf 03/09/2025 1:01 PM CDT DTL Comment: ----REFERENCE VALUE---- <4 (Males) <11 (Females) Squamous Epithelial Cells, U 1-3 /hpf 03/09/2025 1:01 PM CDT DTL Bacteria Present(A) 03/09/2025 1:01 PM CDT DTL Crystals Calcium Oxalate crystals present 03/09/2025 1:01 PM CDT DTL Urine 03/09/2025 10:5 4 AM CDT 03/09/2025 11:41 AM CDT us Kitty Miller APRN.N.P., M.S. LAB URINE OR DERABLES Final Result Performing Organization Address [facility] Co de Phone Number [facility] [address] [place], [place] [phone] [place] [address] * (ABNORMAL) Albumin, Random, Urine (03/09/2025 10:54 AM CDT) Albumin, Random, U 54.0 mg/L 2024 1:20 PM CDT DTL Comment: ----ADDITIONAL INFORMATION---- This test has been modified from the harvest worker fruit's instructions. Its performance characteristics were determined by [facility] in a manner consistent with CLIA requirements. This test has not been cleared or approved by the U.S. Food and Drug Administration. Creatinine 125 mg/dL 03/09/2025 12:20 PM CDT DTL Albumin/Creatinine Ratio 43(H) <25 mg/g 03/09/2025 1:20 PM CDT DTL Urine (Urine, Midstream) 03/09/2025 10:54 AM CDT 03/09/2025 11:41 AM CDT Maddie Velásquez APRN C.N.P., M.S. LAB URINE OR DERABLES Final Result Performing Organization Address [facility] de Phone Number [facility] [address] [place], [place] [address] [place] [address] * (ABNORMAL) Urinalysis, with Microscopic: Urine, Midstream (03/09/2025 10:54 AM CDT) Source Urine, Urine, Midstream 03/09/2025 11:41 AM CDT DTL Color, U Yellow 03/09/2025 11:41 AM CDT DTL Clarity, U Cloudy(A) 03/09/2025 11:41 AM CDT DTL Protein, U 29(H) <26 mg/dL 03/09/2025 12:20 PM CDT DTL Protein/Osmol ality 0.51(H) <0.42 ratio 03/09/2025 12:20 PM CDT DTL Predicted 24 HR Protein, U 362(H) <229 mg/24 h 03/09/2025 12:20 PM CDT DTL Predicted Range 89-1466 mg/24 h 03/09/2025 12:20 PM CDT DTL Comment Micro done on <10 mL 03/09/2025 12:52 PM CDT DTL Urine (Urine, Midstream) 03/09/2025 10:54 AM CDT 03/09/2025 11:41 AM CDT Maddie Velásquez APRN, C.N.P., M.S. LAB URINE OR DERABLES Final Result [facility] [address] [place] [address], [place] DTL [facility] [place] [facility] [place] [address] [place] [address] from Last 3 Months Insurance MEDICARE [facility] Care Teams Manufacturing Recruiter Relationship Specialty Start Date End Date Elsewhere, Pcp PCP - General Internal Medicine 03/26/22
--- OUTSIDE RECORDS SUMMARY | 2025-05-07 06:48 | XMS_ITS | Encounter Summary ---
Author Organization [facility] Address [address] [place] [address]. 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
--- OUTSIDE RECORDS SUMMARY | 2025-05-07 06:48 | XMS_ITS | Encounter Summary ---
Author Organization [facility] Address [address] [place] [address]. [place] [address] Care Team Providers Care Structural Analyst Name Role Phone Diane Alejandra MD Primary Care Provider Encounter Details Date Type Department Care Team (Late st Contact Info) Description 11/22/2019 Orders Only [facility] [address] [facility] [place] [phone] Tomas Eckert MD [facility] [address] [place] [id number] Pre-operative laboratory examination (Primary Dx) Social History Tobacco Use Types Packs/Day Years Used Date Smoking Tobacco: Never Alcohol Use Standard Drinks/Week Comments Yes 0 (1 standard drink = 0.6 oz pur e alcohol) SELDOM Comments No Sex and Gender Information Value Date Recorded Sex Assigned at Not on file 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 aureus PCR (11/22/2019 9:00 AM SECRETARY OF STATE) Specimen Description Clara 11/22/2019 3:59 PM SECRETARY OF STATE [facility] Methicillin Resist/Sens S. aureus PCR Negative NEG^Negat lilia 11/22/2019 11:25 PM SECRETARY OF STATE [facility] Comment: MRSA Negative: SA Negative MRSA and Staphylococcus aureus target DNA not detected, presumed negative for MRSA and SA colonization or the number of bacteria present may be below the limit of detection for the assay. FDA approved assay performed using [employer] GeneXpert(R) real-time PCR. Nasal structure (body structure) 11/22/2019 9:00 AM SECRETARY OF STATE 11/22/2019 4:01 PM SECRETARY OF STATE Tomas Eckert MD LAB - MICRO GENERAL ORDERABLES Final Result [facility] [address] [place], [place] [id number] [place] [address] [address] [phone] documented in this encounter Visit Diagnoses Diagnosis Pre-operative laboratory examination- Primary Pre-procedural laboratory examination documented in this encounter Care Teams Structural Analyst Relationship Specialty Start Date End Date Diane Alejandra MD [facility] - [address] [address] PCP - General Internal Medicine 10/17/17 documented as of this encounter
--- NOTE | 2025-05-07 07:11 | CRLHL7_ITS ---
For Patients: As a result of the Cures Act, medical imaging exams and procedure reports are released immediately into your electronic medical record. You may view this report before your referring provider. If you have questions, please contact your health care provider. INDICATION: Right upper quadrant abdomen pain. TECHNIQUE: Ultrasound abdomen limited. Sonographic images of the right upper quadrant were obtained using blackwood-scale and color Doppler images. COMPARISON: None. FINDINGS: Liver: Normal in size and echotexture. No suspicious masses. No intrahepatic biliary dilatation. Gallbladder: Distended without evidence of cholelithiasis or sludge. Normal wall thickness. No pericholecystic fluid. Common bile duct: 5 mm. Pancreas: Pancreatic tail is not well visualized due to bowel gas. Remainder of the pancreas is unremarkable. Right kidney: Normal in size. Normal echotexture and cortex. Multiple cysts and nonobstructing nephroliths. Mild hydronephrosis with a possible stone measuring 0.6 centimeters near the UPJ. Vasculature: Proximal abdominal aorta and IVC are unremarkable. IMPRESSION: Mild right hydronephrosis with a possible stone measuring 0.6 centimeters near the UPJ. Dictated by Carlyn Suero MD @ 05/07/2025 8:19:11 AM (Electronically Signed)
--- NOTE | 2025-05-07 07:28 | ED.GENADULT ---
HPI - General Adult General Chief complaint: Abdominal Pain <Joseline Rizo MD - Last Filed: 05/08/25 23:59> Stated complaint: abdominal pain <Joseline Rizo MD - Last Filed: 05/08/25 23:59> Time Seen by Provider: 05/07/25 06:59 <Joseline Rizo MD - Last Filed: 05/08/25 23:59> Source: patient and EMS <Joseline Rizo MD - Last Filed: 05/08/25 23:59> Mode of arrival: EMS <Joseline Rizo MD - Last Filed: 05/08/25 23:59> Limitations: no limitations <Joseline Rizo MD - Last Filed: 05/08/25 23:59> History of Present Illness HPI narrative: 89-year-old female presents to the emergency department with abdominal pain on the right mid and right upper quadrant for the past 18 hours, gradually worsening. Started at noon yesterday, gradual onset. Did not initially notice any associated with food. Some nausea but no vomiting. No diarrhea or bloody stools. Patient reports that she has a history of a bleeding ulcer when she was 17 years old and that the pain feels similar. When asked about prior gallstones, she reports that she did have a gallstone several years ago, no prior cholecystectomy. She has also had 2 prior C-sections and an appendectomy at age 15. Still has her uterus and ovaries. Pain is constant and achy. Does not radiate. No prior history pancreatitis. No recent alcohol intake. Fever noted in triage, says she has felt feverish since the wee hours this morning. Has not taken any Tylenol or ibuprofen. She continues to live independently with her 89-year-old . Her adult son has stage IV head and neck cancer and is also currently living with them while on treatment. She uses a walker at baseline and does have some chronic weakness and debility. No recent urinary changes, no gynecological changes, no productive cough or chest pain. No obvious exposures to any particular viruses or sickness, no pertinent travel. No recent antibiotic use. No recent medication changes. She does have a history of chronic lymphedema of her lower extremities but states that she has not noticed any open sores, weeping warmth or redness. Past medical history is notable for morbid obesity, hypertension, hypothyroidism, lymphedema, neuropathy, gout, right foot drop and GERD. She has a notable history for prior DVT but is no longer on anticoagulant therapy. She could remember why it was stopped or started in the 1st place, meaning what indications. We may need to review the chart further to determine this. Abdominal surgeries as stated above. Nonsmoker, lives independently with a walker at baseline. ROS is notable for the GI symptoms only, otherwise denies times 12 systems. <Joseline Rizo MD - Last Filed: 05/08/25 23:59> Related Data Home medications: Home Medications ?Medication ?Instructions ?Recorded ?Confirmed allopurinol 100 mg tablet 50 mg PO DAILY 10/07/22 04/27/25 dapagliflozin propanediol 10 mg 10 mg PO QDAY 10/07/22 04/27/25 tablet (Farxiga) zinc sulfate 50 mg zinc (220 mg) 50 mg PO DAILY 10/07/22 04/27/25 capsule lisinopril 20 mg tablet 20 mg PO DAILY 07/24/23 04/27/25 multivitamin (Daily Multi-Vitamin 1 tab PO DAILY 07/24/23 04/27/25 tablet) acetaminophen 650 mg 1,300 mg PO TID PRN 09/29/23 04/27/25 tablet,extended release torsemide 10 mg tablet 10 mg PO DAILY 09/29/23 04/27/25 lactobacillus combination no.9 4 4,000 mmu cells PO QDAY 10/21/24 04/27/25 billion cell capsule (Adult 50 Plus Probiotic) cyanocobalamin (vitamin B-12) PO DAILY 11/20/24 04/27/25 vit C 250 mg-vit E 90 mg-zinc 40 1 tab PO BID 11/25/24 04/27/25 mg-copper 1 [id number] capsule (PreserVision AREDS-2) Previous Rx's ?Medication ?Instructions ?Recorded bupropion HCl 300 mg 24 hr tablet, 300 mg PO QDAY #90 tabs 10/21/24 extended release levothyroxine 25 mcg tablet 25 mcg PO QDAY #90 tabs 10/21/24 omeprazole 20 mg capsule,delayed 20 mg PO QDAY #90 caps 12/07/24 release simvastatin 20 mg tablet 20 mg PO Q48H #45 tabs 12/30/24 nystatin 100,000 unit/gram topical 1 applic topical QID PRN rash #60 03/15/25 powder grams <Joseline Rizo MD - Last Filed: 05/08/25 23:59> Allergies/adverse reactions: Allergies Allergy/AdvReac Type Severity Reaction Status Date / Time clavulanic acid Allergy Verified 05/07/25 06:57 tazobactam Allergy Verified 05/07/25 06:57 Tetracyclines Allergy Verified 05/07/25 06:57 ibuprofen AdvReac spacing Verified 05/07/25 06:57 out with large doses <Joseline Rizo MD - Last Filed: 05/08/25 23:59> [facility] Medical History: Medical History History of deep vein thrombosis (DVT) of lower extremity ?Z86.718 - Personal history of other venous thrombosis and embolism (ICD-10) History of renal stone ?Z87.442 - Personal history of urinary calculi (ICD-10) <Joseline Rizo MD - Last Filed: 05/08/25 23:59> Surgical History: Surgical History 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) ?G57.31 - Lesion of lateral popliteal nerve, right lower limb (ICD-10) History of cataract surgery ?Z98.49 - Cataract extraction status, unspecified eye (ICD-10) History of total knee replacement (2005) ?Z96.659 - Presence of unspecified artificial knee joint (ICD-10) 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) ?Z96.649 - Presence of unspecified artificial hip joint (ICD-10) History of tonsillectomy (06/04/12) ?Z90.89 - Acquired absence of other organs (ICD-10) History of hysteroscopy (04/22/12) ?Z98.890 - Other specified postprocedural states (ICD-10) History of colon surgery (2004) ?Z98.890 - Other specified postprocedural states (ICD-10) History of appendectomy (08/10/10) ?Z90.49 - Acquired absence of other specified parts of digestive tract (ICD-10) <Joseline Rizo MD - Last Filed: 05/08/25 23:59> Family History: Family History Father Lung cancer Mother Stroke Sister Ovarian cancer <Joseline Rizo MD - Last Filed: 05/08/25 23:59> Social History: Social History Narrative: to [place], they live together independently. He is primary healthcare power of mergers and acquisitions attorney. Her son Dimas would be 2nd dairy power of mergers and acquisitions attorney. Code status is resuscitation for witnessed arrest only. nonsmoker. Drinks 2 glasses of wine a week. uses a lift recliner and walker in her home. What is your current living situation?: I presently have a place to live Problems where you live: no known problems Problems where you live details: Two steps from garage into house In the past 12 months, utilities in danger of being shut off: no In past 12 months, lack of transportation kept you from medical appts, meetings, work, or getting things needed for daily living: no In the past 12 mos, have been you worried that your food would run out before you had money to buy more?: never true In the past 12 mos, the food you bought just didn't last and you didn't have money to buy more?: never true Highest level of school completed/degree received: some college, no degree Smoking Status: Never smoker Do you use any of these nicotine containing products: None Second hand tobacco smoke exposure: No How often do you have a drink containing alcohol: 2-3 times a week Alcohol type: wine How often do you have six or more drinks on one occasion: Never AUDIT-C Alcohol total score: 3 Non-prescribed substance use: denies use Caffeine: Yes (Half caffinated coffee) How often does anyone, including family, friends and others, physically hurt you: never How often does anyone, including family, friends and others, insult or talk down to you: never How often does anyone, including family, friends and others, threaten you with harm: never How often does anyone, including family, friends and others, scream or curse at you: never service: No <Joseline Rizo MD - Last Filed: 05/08/25 23:59> Exam Const: Vital Signs, click to edit/add: Vital Signs - 24 hr 05/07/25 06:53 05/07/25 07:40 05/07/25 08:31 Temperature 102.4 F H Pulse Rate Pulse Rate [Right Pulse Oximeter] 82 70 Respiratory Rate 18 Blood Pressure Blood Pressure [Ri ght Upper Arm] 180/62 H 153/69 H Pulse Oximetry 94 94 Oxygen Delivery Me thod Room Air Room Air 05/07/25 09:09 05/07/25 09:09 05/07/25 09:23 Temperature 99.0 F 99 F Pulse Rate Pulse Rate [Right Pulse Oximeter] 80 81 Respiratory Rate 20 Blood Pressure Blood Pressure [Ri ght Upper Arm] 96/40 L 106/48 L Pulse Oximetry 92 90 Oxygen Delivery Me thod Room Air Room Air 05/07/25 10:06 05/07/25 10:31 05/07/25 11:01 Temperature Pulse Rate 87 83 83 Pulse Rate [Right Pulse Oximeter] Respiratory Rate Blood Pressure 117/47 L 117/49 L 120/63 Blood Pressure [Ri ght Upper Arm] Pulse Oximetry 93 89 90 Oxygen Delivery Me thod 05/07/25 11:45 Temperature Pulse Rate 82 Pulse Rate [Right Pulse Oximeter] Respiratory Rate Blood Pressure Blood Pressure [Ri ght Upper Arm] Pulse Oximetry 92 Oxygen Delivery Me thod <Joseline Rizo MD - Last Filed: 05/08/25 23:59> Vital Signs, click to edit/add: Vital Signs - 24 hr 05/07/25 06:53 05/07/25 07:40 05/07/25 08:31 Temperature 102.4 F H Pulse Rate Pulse Rate [Right Pulse Oximeter] 82 70 Respiratory Rate 18 Blood Pressure Blood Pressure [Ri ght Upper Arm] 180/62 H 153/69 H Pulse Oximetry 94 94 Oxygen Delivery Me thod Room Air Room Air 05/07/25 09:09 05/07/25 09:09 05/07/25 09:23 Temperature 99.0 F 99 F Pulse Rate Pulse Rate [Right Pulse Oximeter] 80 81 Respiratory Rate 20 Blood Pressure Blood Pressure [Ri ght Upper Arm] 96/40 L 106/48 L Pulse Oximetry 92 90 Oxygen Delivery Me thod Room Air Room Air 05/07/25 10:06 05/07/25 10:31 05/07/25 11:01 Temperature Pulse Rate 87 83 83 Pulse Rate [Right Pulse Oximeter] Respiratory Rate Blood Pressure 117/47 L 117/49 L 120/63 Blood Pressure [Ri ght Upper Arm] Pulse Oximetry 93 89 90 Oxygen Delivery Me thod 05/07/25 11:45 Temperature Pulse Rate 82 Pulse Rate [Right Pulse Oximeter] Respiratory Rate Blood Pressure Blood Pressure [Ri ght Upper Arm] Pulse Oximetry 92 Oxygen Delivery Me thod <Court Kirk MD - Last Filed: 05/07/25 11:57> Documenting provider has reviewed patient's vital signs: yes <Joseline Rizo MD - Last Filed: 05/08/25 23:59> Common normals: no apparent distress <Joseline Rizo MD - Last Filed: 05/08/25 23:59> Other: Excellent historian. Very polite and cooperative. Appears well nourished and well hydrated. <Joseline Rizo MD - Last Filed: 05/08/25 23:59> HENMT: Common normals: normocephalic, moist oral mucous membranes, oropharynx normal and dentition normal <Joseline Rizo MD - Last Filed: 05/08/25 23:59> Head and scalp: normocephalic <Joseline Rizo MD - Last Filed: 05/08/25 23:59> Mouth: oral and palatal mucosa normal <Joseline Rizo MD - Last Filed: 05/08/25 23:59> Throat: posterior oropharynx normal <Joseline Rizo MD - Last Filed: 05/08/25 23:59> Eye: Common normals: conjunctivae normal <Joseline Rizo MD - Last Filed: 05/08/25 23:59> General eye: normal appearance of both eyes <Joseline Rizo MD - Last Filed: 05/08/25 23:59> Conjunctiva: conjunctiva(e) normal <Joseline Rizo MD - Last Filed: 05/08/25 23:59> Neck & C-Spine: Common normals: full ROM and no lymphadenopathy <Joseline Rizo MD - Last Filed: 05/08/25 23:59> General: normal visual inspection <Joseline Rizo MD - Last Filed: 05/08/25 23:59> Chest: Common normals: inspection of chest normal and palpation of chest normal <Joseline Rizo MD - Last Filed: 05/08/25 23:59> Resp: Other: Lung sounds are decreased at the bases but I think this is mostly just effort. I do hear air movement in the uppers with no obvious crackles or wheeze. <Joseline Rizo MD - Last Filed: 05/08/25 23:59> Cardio: Common normals: regular rate and regular rhythm <Joseline Rizo MD - Last Filed: 05/08/25 23:59> Rate: regular rate <Joseline Rizo MD - Last Filed: 05/08/25 23:59> Rhythm: regular rhythm <Joseline Rizo MD - Last Filed: 05/08/25 23:59> Other: 2/6 systolic ejection murmur noted. No gallop. <Joseline Rizo MD - Last Filed: 05/08/25 23:59> GI: Common normals: Normal to inspection, nondistended, normoactive bowel sounds present, soft to palpation, no hepatosplenomegaly and no masses <Joseline Rizo MD - Last Filed: 05/08/25 23:59> Palpation: soft and no hepatosplenomegaly <Joseline Rizo MD - Last Filed: 05/08/25 23:59> Other: Tenderness and guarding to right upper quadrant, positive Mcadams sign. No tenderness to other areas. <Joseline Rizo MD - Last Filed: 05/08/25 23:59> : Common normals: no CVA tenderness <Joseline Rizo MD - Last Filed: 05/08/25 23:59> Bladder/kidney exam: no CVA tenderness <Joseline Rizo MD - Last Filed: 05/08/25 23:59> Back & Pelvis: Common normals: no CVA tenderness and thoracic and lumbar spine normal to inspection <Joseline Rizo MD - Last Filed: 05/08/25 23:59> Extremity: Other: 2+ chronic edema with some stasis staining of her right lower extremity but it does not seem acutely cellulitic or warm at this time. No open sores or weeping. <Joseline Rizo MD - Last Filed: 05/08/25 23:59> Neuro: Speech: speech normal <Joseline Rizo MD - Last Filed: 05/08/25 23:59> Other: Moves upper lower extremities on command, can not pull herself up with assistance to a sitting position and maintained truncal support for pulmonary and back exam. <Joseline Rizo MD - Last Filed: 05/08/25 23:59> Psych: Common normals: cooperative and affect normal <Joseline Rizo MD - Last Filed: 05/08/25 23:59> Attitude: engaged <Joseline Rizo MD - Last Filed: 05/08/25 23:59> Attention/concentration: attention grossly intact <Joseline Rizo MD - Last Filed: 05/08/25 23:59> Memory/cognition: memory grossly intact <Joseline Rizo MD - Last Filed: 05/08/25 23:59> Insight: insight good <Joseline Rizo MD - Last Filed: 05/08/25 23:59> Judgement: judgment good <Joseline Rizo MD - Last Filed: 05/08/25 23:59> Skin: Common normals: no rashes or lesions noted <Joseline Rizo MD - Last Filed: 05/08/25 23:59> General skin exam: no rashes or lesions noted <Joseline Rizo MD - Last Filed: 05/08/25 23:59> Course Course ED Course: Febrile 89-year-old with 18 hours of evolving right upper quadrant abdominal pain suspicious for acute cholecystitis. Cannot exclude bowel obstruction, colitis, bleeding ulcer, gastritis, musculoskeletal etiology, pyelonephritis, ureterolithiasis, pancreatitis, amongst many others including viral infections or pulmonary infection. Recommended right upper quadrant ultrasound as initial workup, typical intra-abdominal labs but I would also like to add an EKG and troponin due to age and gender. Will place peripheral IV, give Tylenol for fever and await findings. Will likely hand over care to incoming day shift partner. <Joseline Rizo MD - Last Filed: 05/08/25 23:59> Febrile 89-year-old with 18 hours of evolving right upper quadrant abdominal pain suspicious for acute cholecystitis. Cannot exclude bowel obstruction, colitis, bleeding ulcer, gastritis, musculoskeletal etiology, pyelonephritis, ureterolithiasis, pancreatitis, amongst many others including viral infections or pulmonary infection. Recommended right upper quadrant ultrasound as initial workup, typical intra-abdominal labs but I would also like to add an EKG and troponin due to age and gender. Will place peripheral IV, give Tylenol for fever and await findings. Will likely hand over care to incoming day shift partner. Patient signed out to me by the night doctor to follow up on imaging and labs. Right upper quadrant ultrasound reviewed, shows hydronephrosis, renal cysts, gallbladder is normal. As a result, CT of the abdomen and pelvis was ordered, initially with contrast but she does have chronic kidney disease and her GFR was low so I changed that to a noncontrast CT. Her white count notably elevated at 12 with 96% neutrophils. Her urine shows 50-100 white blood cells, few bacteria, few squames. Her blood pressure was initially elevated at 180/62, she did have a later blood pressure recorded at 96 systolic, repeat 106/48. She is not tachycardic, but these blood pressures are lower than her normal blood pressures. She is typically hypertensive. I have ordered a L of normal saline, she does have a history of lymphedema and is maintained on torsemide, does have edematous legs today, so will start with a L and see how she does with that. Other labs notable for normal lactate 1.1, normal procalcitonin of 0.43, CRP elevated at 4.1. Other labs reviewed and unremarkable. I reviewed the CT scan of her abdomen. This shows perinephric stranding on the right with an associated large stone at the UPJ and associated hydronephrosis. Radiology report reviewed as well. Discussed all this with her and recommended transfer for more emergent management of the kidney stone and sepsis. Blood cultures ordered, given 2 g of Rocephin IV. Some delay in transfer due to multiple phone calls in trying to find an available bed. Ultimately accepted for transfer to [facility]. Hemodynamically improved after 1 L of fluid, last blood pressure 120 systolic. <Court Kirk MD - Last Filed: 05/07/25 11:57> Vital Signs Vital signs: Initial Vital Signs Temperature 102.4 F H 05/07/25 06:53 Temperature Source Temporal Artery Scan 05/07/25 06:53 Pulse Rate 82 05/07/25 06:53 Respiratory Rate 18 05/07/25 06:53 Blood Pressure 180/62 H 05/07/25 06:53 Blood Pressure Mean 101 05/07/25 06:53 Blood Pressure Position Supine 05/07/25 06:53 Pulse Oximetry 94 05/07/25 06:53 Oxygen Delivery Method Room Air 05/07/25 06:53 Vital Signs Temperature 102.4 F H 05/07/25 06:53 Pulse Rate 82 05/07/25 06:53 Respiratory Rate 18 05/07/25 06:53 Blood Pressure 180/62 H 05/07/25 06:53 Pulse Oximetry 94 05/07/25 06:53 Oxygen Delivery Method Room Air 05/07/25 06:53 Temperature 101.1 F H 05/07/25 13:03 Pulse Rate 85 05/07/25 13:03 Respiratory Rate 16 05/07/25 12:01 Blood Pressure 127/54 L 05/07/25 13:01 Pulse Oximetry 93 05/07/25 13:03 Oxygen Delivery Method Room Air 05/07/25 09:23 <Joseline Rizo MD - Last Filed: 05/08/25 23:59> Initial Vital Signs Temperature 102.4 F H 05/07/25 06:53 Temperature Source Temporal Artery Scan 05/07/25 06:53 Pulse Rate 82 05/07/25 06:53 Respiratory Rate 18 05/07/25 06:53 Blood Pressure 180/62 H 05/07/25 06:53 Blood Pressure Mean 101 05/07/25 06:53 Blood Pressure Position Supine 05/07/25 06:53 Pulse Oximetry 94 05/07/25 06:53 Oxygen Delivery Method Room Air 05/07/25 06:53 Vital Signs Temperature 102.4 F H 05/07/25 06:53 Pulse Rate 82 05/07/25 06:53 Respiratory Rate 18 05/07/25 06:53 Blood Pressure 180/62 H 05/07/25 06:53 Pulse Oximetry 94 05/07/25 06:53 Oxygen Delivery Method Room Air 05/07/25 06:53 Temperature 101.1 F H 05/07/25 13:03 Pulse Rate 85 05/07/25 13:03 Respiratory Rate 16 05/07/25 12:01 Blood Pressure 127/54 L 05/07/25 13:01 Pulse Oximetry 93 05/07/25 13:03 Oxygen Delivery Method Room Air 05/07/25 09:23 <Court Kirk MD - Last Filed: 05/07/25 11:57> Medications Administered Medications: Discontinued Medications Generic Name Dose Route Start Last Admin Trade Name Freq PRN Reason Stop Dose Admin Acetaminophen 1,000 mg 05/07/25 07:34 05/07/25 07:37 Acetaminophen 500 Mg Tablet PO 05/07/25 07:35 1,000 mg ONCE ONE Administration Acetaminophen 650 mg 05/07/25 13:05 05/07/25 13:11 Acetaminophen 325 Mg Tablet PO 05/07/25 13:06 650 mg ONCE ONE Administration Fentanyl 25 mcg 05/07/25 13:05 05/07/25 13:12 Fentanyl 100 Mcg/2 Ml Inj IVP 05/07/25 13:06 25 mcg ONCE ONE Administration Sodium Chloride 1,000 mls @ 1,000 mls/hr 05/07/25 09:30 05/07/25 11:00 0.9 % Sodium Chloride 1000 Ml IV 05/07/25 10:29 Infused .Q1H ALEX Infusion Ceftriaxone Sodium 2 gm/ 100 mls @ 200 mls/hr 05/07/25 09:45 05/07/25 10:35 Sodium Chloride IVPB 05/07/25 09:46 Infused ONCE ONE Infusion <Joseline Rizo MD - Last Filed: 05/08/25 23:59> Discontinued Medications Generic Name Dose Route Start Last Admin Trade Name Freq PRN Reason Stop Dose Admin Acetaminophen 1,000 mg 05/07/25 07:34 05/07/25 07:37 Acetaminophen 500 Mg Tablet PO 05/07/25 07:35 1,000 mg ONCE ONE Administration Acetaminophen 650 mg 05/07/25 13:05 05/07/25 13:11 Acetaminophen 325 Mg Tablet PO 05/07/25 13:06 650 mg ONCE ONE Administration Fentanyl 25 mcg 05/07/25 13:05 05/07/25 13:12 Fentanyl 100 Mcg/2 Ml Inj IVP 05/07/25 13:06 25 mcg ONCE ONE Administration Sodium Chloride 1,000 mls @ 1,000 mls/hr 05/07/25 09:30 05/07/25 11:00 0.9 % Sodium Chloride 1000 Ml IV 05/07/25 10:29 Infused .Q1H ALEX Infusion Ceftriaxone Sodium 2 gm/ 100 mls @ 200 mls/hr 05/07/25 09:45 05/07/25 10:35 Sodium Chloride IVPB 05/07/25 09:46 Infused ONCE ONE Infusion <Court Kirk MD - Last Filed: 05/07/25 11:57> Medical Decision Making Lab Data Lab results reviewed: Yes I reviewed the patient's lab results <Court Kirk MD - Last Filed: 05/07/25 11:57> Labs: Lab Results 05/07/25 05/07/25 05/07/25 Range/Units 06:59 07:14 07:21 WBC 12.06 H (4.50-11.00) K/uL RBC 4.10 (4.00-5.20) m/uL Hgb 12.1 (12.0-16.0) gm/dL Hct 38.1 (33.0-51.0) % MCV 93 (80-100) fL MCH 30 (26-34) pg MCHC 32 (32-36) gm/dL RDW Coeff of [place] 13.4 (11.5-15.5) % Plt Count 181 (140-440) K/uL Neut % (Auto) 96.4 H (42.0-72.0) % Lymph % (Auto) 2.1 L (20-44) % [place] % (Auto) 1.2 (0.0-11.0) % Eos % (Auto) 0.1 (0.0-7.0) % Baso % (Auto) 0.0 (0.0-3.0) % Neut # (Auto) 11.60 H (1.7-7.0) K/uL Lymph # (Auto) 0.30 L (0.90-2.90) K/uL [place] # (Auto) 0.10 (0.00-0.90) K/UL Eos # (Auto) 0.00 (0.00-0.50) K/uL Baso # (Auto) 0.00 (0.00-0.30) K/uL Abs Immat Gran (auto) 0.00 (0.00-0.30) K/uL Imm/Tot Granulo (auto) 0.2 % VBG pH 7.412 (7.32-7.43) VBG pCO2 40 (40-50) mmHG VBG pO2 37.0 (25-47) mmHG VBG HCO3 25 (21-28) mmol/L Sodium 135 (135-149) mmol/L Potassium 4.9 (3.6-5.1) mmol/L Chloride 103 (96-114) mmol/L Carbon Dioxide 24 (20-32) mmol/L Anion Gap 8 (7-15) mEq/L BUN 45 H (7-30) mg/dL Creatinine 1.9 H (0.5-1.5) mg/dL Estimated Creat Clear 18.77 Estimated GFR 25 ml/min Glucose 148 H (60-115) mg/dL Lactate 1.1 (0.5-1.9) mmol/L Calcium 9.4 (8.4-10.6) mg/dL Total Bilirubin 0.8 (0.1-1.5) mg/dL AST 27 (12-35) U/L ALT 18 (4-35) U/L Alkaline Phosphatase 65 (40-150) U/L C-Reactive Protein 4.1 H (0.5-1.0) mg/dL Total Protein 6.6 (6.0-8.3) g/dL Albumin 4.0 (3.3-5.0) g/dL Lipase 154 (23-300) U/L Procalcitonin 0.43 (<0.50) ng/mL Urine Color (Yellow) Urine Appearance (Clear) Urine pH (5.0-8.5) Ur Specific [place] (1.000-1.030) Urine Protein (Negative) Urine Glucose (UA) (Negative) Urine Ketones (Negative) Urine Blood (Negative) Urine Nitrite (Negative) Urine Bilirubin (Negative) Urine Urobilinogen (0.2-1.0) Ur Leukocyte Esterase (Negative) Urine RBC (0-2) Urine WBC (0-5) Ur Squamous Epith Cells (None-Few) Urine Bacteria (None) SARS-CoV-2 (PCR) Negative SARS-CoV-2 (Negative) Influenza Type A (PCR) Negative PCR FLU A (Negative) Influenza Type B (PCR) Negative PCR FLU B (Negative) RSV (PCR) Negative PCR RSV (Negative) POC Troponin I 0.01 (0.01-0.04) ng/ml 05/07/25 Range/Units 08:45 WBC (4.50-11.00) K/uL RBC (4.00-5.20) m/uL Hgb (12.0-16.0) gm/dL Hct (33.0-51.0) % MCV (80-100) fL MCH (26-34) pg MCHC (32-36) gm/dL RDW Coeff of [place] (11.5-15.5) % Plt Count (140-440) K/uL Neut % (Auto) (42.0-72.0) % Lymph % (Auto) (20-44) % [place] % (Auto) (0.0-11.0) % Eos % (Auto) (0.0-7.0) % Baso % (Auto) (0.0-3.0) % Neut # (Auto) (1.7-7.0) K/uL Lymph # (Auto) (0.90-2.90) K/uL [place] # (Auto) (0.00-0.90) K/UL Eos # (Auto) (0.00-0.50) K/uL Baso # (Auto) (0.00-0.30) K/uL Abs Immat Gran (auto) (0.00-0.30) K/uL Imm/Tot Granulo (auto) % VBG pH (7.32-7.43) VBG pCO2 (40-50) mmHG VBG pO2 (25-47) mmHG VBG HCO3 (21-28) mmol/L Sodium (135-149) mmol/L Potassium (3.6-5.1) mmol/L Chloride (96-114) mmol/L Carbon Dioxide (20-32) mmol/L Anion Gap (7-15) mEq/L BUN (7-30) mg/dL Creatinine (0.5-1.5) mg/dL Estimated Creat Clear Estimated GFR ml/min Glucose (60-115) mg/dL Lactate (0.5-1.9) mmol/L Calcium (8.4-10.6) mg/dL Total Bilirubin (0.1-1.5) mg/dL AST (12-35) U/L ALT (4-35) U/L Alkaline Phosphatase (40-150) U/L C-Reactive Protein (0.5-1.0) mg/dL Total Protein (6.0-8.3) g/dL Albumin (3.3-5.0) g/dL Lipase (23-300) U/L Procalcitonin (<0.50) ng/mL Urine Color Yellow (Yellow) Urine Appearance Slightly Cloudy A (Clear) Urine pH 6.0 (5.0-8.5) Ur Specific [place] 1.015 (1.000-1.030) Urine Protein 2+ A (Negative) Urine Glucose (UA) 1+ A (Negative) Urine Ketones Negative (Negative) Urine Blood Trace-intact A (Negative) Urine Nitrite Negative (Negative) Urine Bilirubin Negative (Negative) Urine Urobilinogen 0.2 (0.2-1.0) Ur Leukocyte Esterase 2+ A (Negative) Urine RBC 0-2 (0-2) Urine WBC 50-100 A (0-5) Ur Squamous Epith Cells Few (None-Few) Urine Bacteria Few A (None) SARS-CoV-2 (PCR) (Negative) Influenza Type A (PCR) (Negative) Influenza Type B (PCR) (Negative) RSV (PCR) (Negative) POC Troponin I (0.01-0.04) ng/ml <Joseline Rizo MD - Last Filed: 05/08/25 23:59> Lab Results 05/07/25 05/07/25 05/07/25 Range/Units 06:59 07:14 07:21 WBC 12.06 H (4.50-11.00) K/uL RBC 4.10 (4.00-5.20) m/uL Hgb 12.1 (12.0-16.0) gm/dL Hct 38.1 (33.0-51.0) % MCV 93 (80-100) fL MCH 30 (26-34) pg MCHC 32 (32-36) gm/dL RDW Coeff of [place] 13.4 (11.5-15.5) % Plt Count 181 (140-440) K/uL Neut % (Auto) 96.4 H (42.0-72.0) % Lymph % (Auto) 2.1 L (20-44) % [place] % (Auto) 1.2 (0.0-11.0) % Eos % (Auto) 0.1 (0.0-7.0) % Baso % (Auto) 0.0 (0.0-3.0) % Neut # (Auto) 11.60 H (1.7-7.0) K/uL Lymph # (Auto) 0.30 L (0.90-2.90) K/uL [place] # (Auto) 0.10 (0.00-0.90) K/UL Eos # (Auto) 0.00 (0.00-0.50) K/uL Baso # (Auto) 0.00 (0.00-0.30) K/uL Abs Immat Gran (auto) 0.00 (0.00-0.30) K/uL Imm/Tot Granulo (auto) 0.2 % VBG pH 7.412 (7.32-7.43) VBG pCO2 40 (40-50) mmHG VBG pO2 37.0 (25-47) mmHG VBG HCO3 25 (21-28) mmol/L Sodium 135 (135-149) mmol/L Potassium 4.9 (3.6-5.1) mmol/L Chloride 103 (96-114) mmol/L Carbon Dioxide 24 (20-32) mmol/L Anion Gap 8 (7-15) mEq/L BUN 45 H (7-30) mg/dL Creatinine 1.9 H (0.5-1.5) mg/dL Estimated Creat Clear 18.77 Estimated GFR 25 ml/min Glucose 148 H (60-115) mg/dL Lactate 1.1 (0.5-1.9) mmol/L Calcium 9.4 (8.4-10.6) mg/dL Total Bilirubin 0.8 (0.1-1.5) mg/dL AST 27 (12-35) U/L ALT 18 (4-35) U/L Alkaline Phosphatase 65 (40-150) U/L C-Reactive Protein 4.1 H (0.5-1.0) mg/dL Total Protein 6.6 (6.0-8.3) g/dL Albumin 4.0 (3.3-5.0) g/dL Lipase 154 (23-300) U/L Procalcitonin 0.43 (<0.50) ng/mL Urine Color (Yellow) Urine Appearance (Clear) Urine pH (5.0-8.5) Ur Specific [place] (1.000-1.030) Urine Protein (Negative) Urine Glucose (UA) (Negative) Urine Ketones (Negative) Urine Blood (Negative) Urine Nitrite (Negative) Urine Bilirubin (Negative) Urine Urobilinogen (0.2-1.0) Ur Leukocyte Esterase (Negative) Urine RBC (0-2) Urine WBC (0-5) Ur Squamous Epith Cells (None-Few) Urine Bacteria (None) SARS-CoV-2 (PCR) Negative SARS-CoV-2 (Negative) Influenza Type A (PCR) Negative PCR FLU A (Negative) Influenza Type B (PCR) Negative PCR FLU B (Negative) RSV (PCR) Negative PCR RSV (Negative) POC Troponin I 0.01 (0.01-0.04) ng/ml 05/07/25 Range/Units 08:45 WBC (4.50-11.00) K/uL RBC (4.00-5.20) m/uL Hgb (12.0-16.0) gm/dL Hct (33.0-51.0) % MCV (80-100) fL MCH (26-34) pg MCHC (32-36) gm/dL RDW Coeff of [place] (11.5-15.5) % Plt Count (140-440) K/uL Neut % (Auto) (42.0-72.0) % Lymph % (Auto) (20-44) % [place] % (Auto) (0.0-11.0) % Eos % (Auto) (0.0-7.0) % Baso % (Auto) (0.0-3.0) % Neut # (Auto) (1.7-7.0) K/uL Lymph # (Auto) (0.90-2.90) K/uL [place] # (Auto) (0.00-0.90) K/UL Eos # (Auto) (0.00-0.50) K/uL Baso # (Auto) (0.00-0.30) K/uL Abs Immat Gran (auto) (0.00-0.30) K/uL Imm/Tot Granulo (auto) % VBG pH (7.32-7.43) VBG pCO2 (40-50) mmHG VBG pO2 (25-47) mmHG VBG HCO3 (21-28) mmol/L Sodium (135-149) mmol/L Potassium (3.6-5.1) mmol/L Chloride (96-114) mmol/L Carbon Dioxide (20-32) mmol/L Anion Gap (7-15) mEq/L BUN (7-30) mg/dL Creatinine (0.5-1.5) mg/dL Estimated Creat Clear Estimated GFR ml/min Glucose (60-115) mg/dL Lactate (0.5-1.9) mmol/L Calcium (8.4-10.6) mg/dL Total Bilirubin (0.1-1.5) mg/dL AST (12-35) U/L ALT (4-35) U/L Alkaline Phosphatase (40-150) U/L C-Reactive Protein (0.5-1.0) mg/dL Total Protein (6.0-8.3) g/dL Albumin (3.3-5.0) g/dL Lipase (23-300) U/L Procalcitonin (<0.50) ng/mL Urine Color Yellow (Yellow) Urine Appearance Slightly Cloudy A (Clear) Urine pH 6.0 (5.0-8.5) Ur Specific [place] 1.015 (1.000-1.030) Urine Protein 2+ A (Negative) Urine Glucose (UA) 1+ A (Negative) Urine Ketones Negative (Negative) Urine Blood Trace-intact A (Negative) Urine Nitrite Negative (Negative) Urine Bilirubin Negative (Negative) Urine Urobilinogen 0.2 (0.2-1.0) Ur Leukocyte Esterase 2+ A (Negative) Urine RBC 0-2 (0-2) Urine WBC 50-100 A (0-5) Ur Squamous Epith Cells Few (None-Few) Urine Bacteria Few A (None) SARS-CoV-2 (PCR) (Negative) Influenza Type A (PCR) (Negative) Influenza Type B (PCR) (Negative) RSV (PCR) (Negative) POC Troponin I (0.01-0.04) ng/ml <Court Kirk MD - Last Filed: 05/07/25 11:57> Imaging Data CT scan - abdomen: Attestation: I have reviewed the pertinent imaging results. <Court Kirk MD - Last Filed: 05/07/25 11:57> Radiologist's impression: Patient: Vielka Yap MR#: [id number] : 1935 Acct:[id number] Loc: ED Service Date: 05/07/[address]: Ordering Physician: Joseline Rizo M.D. Date of Service: 05/07/25 Procedure(s): CT abdomen [facility] Accession Number(s): [id number] cc: Diane Alejandra M.D.; Joseline Rizo M.D.~ For Patients: As a result of the Century Cures Act, medical imaging exams and procedure reports are released immediately into your electronic medical record. You may view this report before your referring provider. If you have questions, please contact your health care provider. INDICATION: Right abdominal pain TECHNIQUE: CT abdomen and pelvis without contrast. COMPARISON: Same day ultrasound abdomen. FINDINGS: Lower chest: Unremarkable. Liver: Scattered subcentimeter hypodense lesions, likely cysts. Gallbladder and bile ducts: No stones or inflammation. No biliary dilatation. Pancreas: Mild atrophy. Spleen: Unremarkable. Adrenal glands: Stable right adrenal adenoma measuring 1.3 x 1 centimeter (2/39), and left adrenal adenoma measuring 1.4 x 1 centimeter (2/34). Kidneys: Mild right hydronephrosis with a stone measuring 0.4 x 1 x 0.6 centimeters the right UPJ (262). Nonobstructing nephroliths in the right kidney with the inferior most stone with partial staghorn morphology. Moderate perinephric stranding surrounding the right kidney. Bilateral renal cysts. GI tract: No obstruction. Appendectomy. Vasculature: Abdominal aorta is normal in caliber. Mild aortoiliac atherosclerosis. Lymph nodes: No lymphadenopathy. Peritoneum/Abdominal Wall: Small fat containing ventral hernia. Calcification in the right lower back, likely related to prior injury. Pelvis: Evaluation of the pelvis is limited by streak artifact. Bones: Bilateral total hip arthroplasties. Calcifications surrounding the right hip with small effusion. T12 and S1 sclerotic lesions, likely bone islands and similar to 2017. IMPRESSION: There is a 0.4 x 1 x 0.6 centimeter stone in the right UPJ resulting in mild hydronephrosis and surrounding perinephric stranding. Nonobstructing nephroliths in the right kidney, with the inferior most stone with partial staghorn morphology. Calcifications and small effusion surrounding the right hip, which may be related to synovitis or sequela of prior injury. No evidence of osteolysis to suggest metallosis. Please note that all CT scans at this facility use dose modulation, iterative reconstruction, and/or weight-based dosing when appropriate to reduce radiation dose to as low as reasonably achievable. Dictated by Carlyn Suero MD @ 05/07/2025 9:24:56 AM <Court Kirk MD - Last Filed: 05/07/25 11:57> ECG Data Attestation: I personally reviewed and interpreted this ECG as follows: <Joseline Rizo MD - Last Filed: 05/08/25 23:59> Prior ECG tracings: available for review <Joseline Rizo MD - Last Filed: 05/08/25 23:59> Interpretation: Comparison EKG 11/21/2024. Today we have normal sinus rhythm with a rate of 79. There is a few P ACs and a prolonged CO interval. There is some mild septal changes all of which are completely unchanged from November of 2024. No acute ischemic changes. Normal axis otherwise. <Joseline Rizo MD - Last Filed: 05/08/25 23:59> Discharge Plan Discharge Clinical Impression: Hydronephrosis with renal and ureteral calculous obstruction, Urinary tract infection, Sepsis <Joseline Rizo MD - Last Filed: 05/08/25 23:59> Patient Disposition: Xfer Other <Joseline Rizo MD - Last Filed: 05/08/25 23:59> Condition: Stable <Joseline Rizo MD - Last Filed: 05/08/25 23:59> Prescriptions: No Action PreserVision AREDS-2 250-90-40-1 mg capsule 1 tab PO BID zinc sulfate 50 mg zinc (220 mg) capsule 50 mg PO DAILY acetaminophen 650 mg tablet extended release 1,300 mg PO TID PRN Adult 50 Plus Probiotic 4 billion cell capsule 4,000 mmu cells PO QDAY Rx Instructions: administer with a meal levothyroxine 25 mcg tablet 25 mcg PO QDAY Qty: 90 3RF bupropion HCl 300 mg tablet extended release 24 hr 300 mg PO QDAY Qty: 90 3RF allopurinol 100 mg tablet 50 mg PO DAILY Farxiga 10 mg tablet 10 mg PO QDAY cyanocobalamin (vitamin B-12) PO DAILY lisinopril 20 mg tablet 20 mg PO DAILY multivitamin [Daily Multi-Vitamin] Tablet 1 tab PO DAILY Patient Comments: [employer] ESSENTIAL 1 (FROM [employer]) torsemide 10 mg tablet 10 mg PO DAILY Patient Comments: 10 MG DAILY PLUS ADDITIONAL DOSE IF GAIN 3 LBS OVERNIGHT OR 5 LBS OVER A WEEK Rx Instructions: Take 2 tabs PRN omeprazole 20 mg capsule,delayed release(DR/EC) 20 mg PO QDAY Qty: 90 3RF simvastatin 20 mg tablet 20 mg PO Q48H Qty: 45 3RF nystatin 100,000 unit/gram powder 1 applic topical QID PRN (Reason: rash) Qty: 60 5RF Rx Instructions: USES NEEDED FOR FLARES OF SKIN FOLD DERMATITIS <Joseline Rizo MD - Last Filed: 05/08/25 23:59> Stand Alone Forms: MyHealth Info Instructions <Joseline Rizo MD - Last Filed: 05/08/25 23:59>
[2025-05-07 07:30] LABS: Eosinophils Percent Auto 0.1 % (0.0-7.0); Hematocrit 38.1 % (33.0-51.0); Hemoglobin* 12.1 gm/dL (12.0-16.0); Immature Granulocytes Pct Auto 0.2 %; Lymphocytes Percent Auto 2.1 % (20-44); Mean Corpuscular HGB Conc 32 gm/dL (32-36); Mean Corpuscular Hemoglobin 30 pg (26-34); Mean Corpuscular Volume 93 fL (80-100); Monocytes Percent Auto 1.2 % (0.0-11.0); Neutrophils Percent Auto 96.4 % (42.0-72.0); Platelet Count* 181 K/uL (140-440); RDW Coefficient of Variation % 13.4 % (11.5-15.5); White Blood Count* 12.06 K/uL (4.50-11.00)
[2025-05-07 07:33] LABS: HCO3 VBG 25 mmol/L (21-28); Lactate Sepsis w/Reflex* 1.1 mmol/L (0.5-1.9); PCO2 VBG 40 mmHG (40-50); pH VBG 7.412 (7.32-7.43)
[2025-05-07 07:36] LABS: Slide Review Reflex No
[2025-05-07] MEDS: ACETAMINOPHEN 500 MG TABLET 1000 MG PO (07:37)
[2025-05-07 07:40] LABS: Troponin, Point-of-Care* 0.01 ng/ml (0.01-0.04)
--- NOTE | 2025-05-07 08:02 | CRLHL7_ITS ---
For Patients: As a result of the Century Cures Act, medical imaging exams and procedure reports are released immediately into your electronic medical record. You may view this report before your referring provider. If you have questions, please contact your health care provider. INDICATION: Right abdominal pain TECHNIQUE: CT abdomen and pelvis without contrast. COMPARISON: Same day ultrasound abdomen. FINDINGS: Lower chest: Unremarkable. Liver: Scattered subcentimeter hypodense lesions, likely cysts. Gallbladder and bile ducts: No stones or inflammation. No biliary dilatation. Pancreas: Mild atrophy. Spleen: Unremarkable. Adrenal glands: Stable right adrenal adenoma measuring 1.3 x 1 centimeter (2/39), and left adrenal adenoma measuring 1.4 x 1 centimeter (2/34). Kidneys: Mild right hydronephrosis with a stone measuring 0.4 x 1 x 0.6 centimeters the right UPJ (262). Nonobstructing nephroliths in the right kidney with the inferior most stone with partial staghorn morphology. Moderate perinephric stranding surrounding the right kidney. Bilateral renal cysts. GI tract: No obstruction. Appendectomy. Vasculature: Abdominal aorta is normal in caliber. Mild aortoiliac atherosclerosis. Lymph nodes: No lymphadenopathy. Peritoneum/Abdominal Wall: Small fat containing ventral hernia. Calcification in the right lower back, likely related to prior injury. Pelvis: Evaluation of the pelvis is limited by streak artifact. Bones: Bilateral total hip arthroplasties. Calcifications surrounding the right hip with small effusion. T12 and S1 sclerotic lesions, likely bone islands and similar to 2017. IMPRESSION: There is a 0.4 x 1 x 0.6 centimeter stone in the right UPJ resulting in mild hydronephrosis and surrounding perinephric stranding. Nonobstructing nephroliths in the right kidney, with the inferior most stone with partial staghorn morphology. Calcifications and small effusion surrounding the right hip, which may be related to synovitis or sequela of prior injury. No evidence of osteolysis to suggest metallosis. Please note that all CT scans at this facility use dose modulation, iterative reconstruction, and/or weight-based dosing when appropriate to reduce radiation dose to as low as reasonably achievable. Dictated by Carlyn Suero MD @ 05/07/2025 9:24:56 AM (Electronically Signed)
[2025-05-07 08:07] LABS: Chloride* 103 mmol/L (96-114); Sodium* 135 mmol/L (135-149)
[2025-05-07 08:08] LABS: Potassium* 4.9 mmol/L (3.6-5.1)
[2025-05-07 08:10] LABS: Blood Urea Nitrogen* 45 mg/dL (7-30); Creatinine* 1.9 mg/dL (0.5-1.5); Est. Creatinine Clearance* 18.77; Estimated Glomerular Filt Rate 25 ml/min
[2025-05-07 08:11] LABS: Alanine Aminotransferase* 18 U/L (4-35); Alkaline Phosphatase* 65 U/L (40-150); Anion Gap 8 mEq/L (7-15); Aspartate Amino Transferase* 27 U/L (12-35); Bilirubin Total* 0.8 mg/dL (0.1-1.5); Calcium* 9.4 mg/dL (8.4-10.6); Carbon Dioxide* 24 mmol/L (20-32); Glucose* 148 mg/dL (60-115); Lipase* 154 U/L (23-300); Total Protein* 6.6 g/dL (6.0-8.3)
[2025-05-07 08:14] LABS: C Reactive Protein* 4.1 mg/dL (0.5-1.0)
[2025-05-07 08:14] LABS: PCR FLU A Negative PCR FLU A (Negative); PCR FLU B Negative PCR FLU B (Negative); PCR RSV Negative PCR RSV (Negative); SARS PCR* Negative SARS-CoV-2 (Negative)
[2025-05-07 08:28] LABS: Procalcitonin* 0.43 ng/mL (<0.50)
[2025-05-07 08:51] LABS: Appearance Urine Slightly Cloudy (Clear); Bilirubin Urine Negative (Negative); Blood Urine Trace-intact (Negative); Color Urine Yellow (Yellow); Glucose Urine 1+ (Negative); Ketones Urine Negative (Negative); Leukocyte Esterase Urine 2+ (Negative); Nitrite Urine Negative (Negative); Protein Urine 2+ (Negative); Specific Gravity Urine 1.015 (1.000-1.030); Urobilinogen Urine 0.2 (0.2-1.0)
[2025-05-07 08:59] LABS: Bacteria Urine Few; RBC Urine 0-2 (0-2); Squamous Epithelial Cell Urine Few (None-Few); WBC Urine 50-100 (0-5)
[2025-05-07] MEDS: 0.9 % SODIUM CHLORIDE 1000 ml 1,000 ML IV (09:30)
[2025-05-07] MEDS: cefTRIAXone 2 GM in 0.9 % SODIUM CHLORIDE Mini-bag 100 ML IVPB (10:03)
[2025-05-07] MEDS: ACETAMINOPHEN 325 MG TABLET 650 MG PO (13:11)
[2025-05-07] MEDS: fentaNYL 100 MCG/2 ML inj 25 MCG IVP (13:12)
--- NOTE | 2025-05-07 16:33 | ED.NURSE ---
[facility] called inquiring about pt home meds. List of pt home meds from our EMR was last confirmed on 04/27. Advised [facility] that list may not be exactly current as it was last confirmed on 04/27/25. Provided list of meds.
== END 2025-05-07 13:29 | disposition other institution (70) ==
PROVIDERS: Family Medicine; Emergency Provider Emergency Medicine; PCP Internal Medicine
DX: N39.0 Urinary tract infection, site not specified (principal); N20.2 Calculus of kidney with calculus of ureter; A41.9 Sepsis, unspecified organism
CPT/HCPCS: 36415; 74176; 76705; 80053; 81001; 82803; 83605; 83690; 84145; 84484; 85025; 86140; 87040; 87086; 87631; 87800; 93005; 96365; 96375; 99284; 99285; A9270; J0696; J3010; J7030

== ENCOUNTER 2025-05-07 13:13 | Outpatient (CLI) | payer MEDICARE, BC, SELFPAY | END 2025-05-07 13:14 | disposition home or self-care (01) | LOC: AMB 05-09 11:09 | PROVIDERS: PCP Internal Medicine; Visit Provider Emergency Medicine | DX: N13.2 Hydronephrosis with renal and ureteral calculous obstruction (principal); A41.9 Sepsis, unspecified organism | CPT/HCPCS: A0425; A0433 ==

== ENCOUNTER 2025-07-23 16:24 | Outpatient (CLI) | payer MEDICARE, BC, SELFPAY | END 2025-07-23 16:25 | disposition home or self-care (01) | LOC: AMB 07-26 16:32 | PROVIDERS: PCP Internal Medicine; Visit Provider Internal Medicine | DX: R53.1 Weakness (principal) | CPT/HCPCS: A0998 ==

== ENCOUNTER 2025-08-07 08:36 | Emergency (ER) | payer MEDICARE, BC, SELFPAY ==
--- OUTSIDE RECORDS SUMMARY | 2017-02-24 06:40 | XMS_ITS | Continuity of Care Document ---
Author Organization [facility] Address [address] [address] [place] [address] Phone Care Team Providers Care Right Of Way Agent Name Role Phone Kev HERNANDEZ, Baird Unavailable Unavailable Allergies, Adverse Reactions, Alerts Substance Reaction Status Criticality Tetracyclines yeast infections Active No Informa tion ibuprofen behaviorial Active No Information Medications Medication Instructions Dosage Effective Dates (start - stop) Status Comments bupropion HCl XL 150 mg 24 hr tablet, extended release take 2 tablet by oral route every day 300 MG - Active lisinopril 20 mg-hydrochlorothiazi de 12.5 mg tablet take 1 tablet by oral route every day 1 tablet - Active oxybutynin chloride ER 10 mg tablet,extended release 24 hr take 1 tablet by oral route every day 10 MG - Active sertraline 25 mg tablet take 1 tablet by oral route every day 25 MG - Active Synthroid 25 mcg tablet take 1 tablet by oral route every day 25 MCG - Active furosemide 20 mg tablet take 1 tablet by oral route every day 20 MG - Active aspirin 325 mg tablet take 1 tablet by oral route every day as needed 325 MG - Active omeprazole 20 mg capsule,delayed release take 1 capsule by oral route every day 30 minutes to 1 hour before a meal as needed 20 MG - Active Procedures Procedure Date Stool Kits Given C. Difficile Toxin Gene, MARILIN Offic/outpt E&m New Mod-hi Routine Serum Collection Gg; Iga, Igd, Igg, Igm, Ea Advance Directives Directive Yes / No Effective Date File Name No Information Encounters Encounter Description Practice Location Reason(s) For Visit Diagnoses Date Provider Providers Copied on Encounter [facility], [address] [address], [place], [place], [id number], tel:[phone] [facility] No Information Kev Hanahim. [address], [id number], [place]. tel:[phone] Israel Collazo MD. tel:[phone] [facility], [address] [address], [place], [place], [id number], tel:[phone] [facility] Diarrhea, unspecified Kev Hanahim. [address], [id number], [place]. tel:[phone] Israel Collazo MD. tel:[phone] erring Provider: Referral Self, USE FOR SELF REFERRALS. Offic/outpt E&m [facility], [address] [address], [place], [place], [id number], tel:[phone] [facility] GI Symptoms or Concerns (chief complaint) Altered bowel habitsDiarrhea , unspecified typeDietary counseling and surveillance Kev Hanahim. [address] [place] [address], [id number], . tel:[phone] Referring Provider: Referral Self, USE FOR SELF REFERRALS. Family History Family Member Type Diagnosis Age At Onset Son Problem (finding) Alive and well Mother Problem (finding) stroke Son Problem (finding) alcoholism Father Problem (finding) malignant neoplasm of l devora Sister Problem (finding) vaginal cancer Payers Payer name Insurance type Covered republican ID Authorvladislava tion(s) Medicare NGS MB [id number] [employer] [id number] Social History Type Description Quantity Date Captured Comments Alcohol Use Details Unknown Caffeine Use Details Unknown Tobacco Use Status No Information Smoking Status No Information Sex Female Chief Complaint And Reason For Visit No Information Reason For Referral Reason For Referral No Information Plan Of Treatment Date Type Action Status Goal Lifestyle education regardin g diet completed Referral Ordered: CT Abdomen And Pelvis WITHOUT And WITH Contrast Appointment date/timeframe: 02/20/2017 ordered History Of Present Illness Encounter Date Complaint History Of Prese nt Illness GI Symptoms or Concerns This is a 81 year old woman presents for evaluation of altered bowel habits. Patient reports long standing history of altered bowel habits. She used to have constipation in the past. More recently, she has encoutered diarrhea. Currently, she does not have bowel movements every day but she does, she ends up with 2-3 bowel movements daily with fecal incontinence. No blood in the stool. She also has abdominal pain the right abdomen on off triggered by food intake. She has 20 lb over the past 9 months, most of it has been in the past couple months. No nausea or vomiting. Patient was recently seen at [facility] where she underwent the following tests: Colonoscopy: Diverticulosis in the descending colon, and in the transverse colon. Patent [id number] ileocolonic anastomosis, characterized by healthy appearing mucosa. The examined portion of the ileum was normal. Erythematous mucosa in the descending colon. Biopsies revealed focal active colitis. Random colonic biospies showed normal colonic mucosa. Non-bleeding external hemorrhoids were seen. Rectal manometry: The anal pressure at rest was normal. The anal pressure during squeeze was normal. During stimulated evacuation, the increase in rectal pressure was normal, anal relaxation was reduced, residual anal pressure was normal, and the recto-anal gradient was abnormal. The rectal balloon expulsion test was normal (27 seconds). In summary, while the balloon expulsion test was normal, there were two manometric features to suggest an evacuation disorder.Medical history is remarkable for colonic resection with ileo-colonic anastomosis around 8 years ago. The indication of the surgery is not clear to me. Patient says this was done emergently in the setting of severe abdominal pain and bowel perforation. Functional Status Date Functional Assessmen t No Information Instructions Date Instruction Additional Infor isaiion Diarrhea Related to Diarr hea, unspecified type Lifestyle education regarding di et Related to Dietary counseling and surveillance CT Abdomen And Pelvi s WITHOUT And WITH Contrast Assessments Type Assessment Date No Information Patient Care Teams Name Effective Dates (start - stop) Status Members No Information
--- OUTSIDE RECORDS SUMMARY | 2017-02-24 06:40 | XMS_ITS | Continuity of Care Document ---
Author Organization [facility] Address [address] [address] [place] [address] Phone Care Team Providers Care Physics Professor Name Role Phone Kev HERNANDEZ, Baird Unavailable [...] Diagnoses Date Provider Providers Copied on Encounter [facility], [address] [address], [place], [place], [id number], tel:[phone] [facility] No Information Kev Hanahim. [address], [id number], [place]. tel:[phone] Israel Collazo MD. tel:[phone] [facility], [address] [address], [place], [place], [id number], tel:[phone] [facility] Diarrhea, unspecified Kev Hanahim. [address], [id number], [place]. tel:[phone] Israel Collazo MD. tel:[phone] erring Provider: Referral Self, USE FOR SELF REFERRALS. Offic/outpt E&m [facility], [address] [address], [place], [place], [id number], tel:[phone] [facility] GI Symptoms or Concerns (chief complaint) Altered bowel habitsDiarrhea , unspecified typeDietary counseling and surveillance Kev Hanahim. [address] [place] [address], [id number], . tel:[phone] Referring Provider: Referral Self, USE FOR SELF REFERRALS. Family History Family Member Type Diagnosis Age At Onset Son Problem (finding) Alive and well Mother Problem (finding) stroke Son Problem (finding) alcoholism Father Problem (finding) malignant neoplasm of l devora Sister Problem (finding) vaginal cancer Payers Payer name Insurance type Covered republican ID Authorvladislava tion(s) Medicare NGS MB [id number] [facility] [id number] Social History Type Description Quantity Date Captured [...] or vomiting. Patient was recently seen at [facility] where she underwent the following tests: Colonoscopy: Diverticulosis in the descending colon, and in the transverse colon. Patent [id number] ileocolonic anastomosis, characterized by healthy appearing mucosa. [...]
[2025-08-07] VITALS (8 sets, daily range): BP systolic 119–155; BP diastolic 73–81; PULSE 73–84; RESP 18–20; TEMP 37.6; O2SAT 90–96
--- OUTSIDE RECORDS SUMMARY | 2025-08-07 08:39 | XMS_ITS | Clinical Summary ---
Author Organization [facility] Address [address] [place] [id number] Care Team Providers Care Critical Systems Technician Name Role Phone Diane Alejandra MD Primary Care Provider Allergies Active Allergy Reactions Criticality Noted Date Comments Amoxicillin-Pot Clavulanate Nausea and Vomiting 04/03/2006 Ibuprofen 09/27/2002 in large quantities- personality change Tazobactam GI Disturbance 11/29/2019 Tetracycline 09/28/2002 Pt unsure of reaction Medications acetaminophen (TYLENOL) 650 MG CR tablet Take 650-1,300 mg by mouth every 8 hours as needed for mild pain or fever Active levothyroxine (SYNTHROID/LEVOTHR OID) 25 MCG tablet Take 25 mcg by mouth daily EDUARDA Synthroid Active simvastatin (ZOCOR) 20 MG tablet Take 20 mg by mouth every 48 hours. Active buPROPion (WELLBUTRIN XL) 300 MG 24 hr tablet Take 300 mg by mouth every morning. Active allopurinol (ZYLOPRIM) 100 MG tablet Take 50 mg by mouth daily. Active lisinopril (ZESTRIL) 20 MG tablet Take 20 mg by mouth daily. 5 Active omeprazole (PRILOSEC) [address] capsule Take 20 mg by mouth daily as needed (pyrosis). 5 Active torsemide (DEMADEX) 10 MG tablet Take 10 mg by mouth daily. Active Multiple Vitamins-Minerals (PRESERVISION AREDS) TABS Take 1 tablet by mouth 2 times daily. Active Acidophilus Lactobacillus CAPS Take 2 capsules by mouth daily. Active zinc 50 MG TABS Take 50 mg by mouth daily. Active Multiple Vitamin (MULTIVITAMIN ADULT PO) Take 1 tablet by mouth daily. Active dapagliflozin (FARXIGA) 10 MG TABS tablet Take 10 mg by mouth daily. Active nystatin (MYCOSTATIN) 873531 UNIT/GM external powder Apply topically 4 times daily as needed for other (Skin fold dermatitis/ra sh). Active Cyanocobalamin (VITAMIN B-12 PO) Take 1 tablet by mouth daily. Active oxyCODONE (ROXICODONE) 5 MG tabletIndications: Acute pyelonephritis Take 1 tablet (5 mg) by mouth every 4 hours as needed for moderate pain (IF pain not managed with non-pharmacol ogical and non-opioid interventions ). 10 tablet 5 Active polyethylene glycol (MIRALAX) 17 GM/Dose powderIndications: Acute pyelonephritis Take 17 g by mouth daily. 510 g 5 Active sennosides (SENOKOT) 8.6 MG tablet Take 1 tablet by mouth daily. Active Cranberry-Vitamin C-Inulin (UTI-STAT PO) Take 1 oz by mouth daily. Active sennosides (SENOKOT) 8.6 MG tablet Take 1 tablet by mouth daily as needed for constipation. Active tamsulosin (FLOMAX) 0.4 MG capsuleIndications :Acute pyelonephritis Take 1 capsule (0.4 mg) by mouth daily as needed (stent discomfort). 10 capsule 5 Active oxyBUTYnin (DITROPAN) 5 MG tabletIndications: Acute pyelonephritis Take 1 tablet (5 mg) by mouth 3 times daily as needed for bladder spasms (Stent discomfort). 12 tablet 5 Active tolterodine ER (DETROL LA) 2 MG 24 hr capsuleIndications :Bladder spasm Take 1 capsule (2 mg) by mouth daily as needed (Bladder spasms/irrita tion). 5 Active Active Problems Problem Noted Date Diagnosed Date Nephrolithiasis 06/06/2025 Urinary tract infection 06/06/2025 History of hypertension 05/11/2025 Severe sepsis 05/11/2025 Acute pyelonephritis 05/11/2025 Bacteremia 05/11/2025 SABINO (acute kidney injury) 05/11/2025 Ureterolithiasis 05/07/2025 Stage 4 chronic kidney disease 05/10/2021 History of deep venous thrombosis 03/22/2021 History of falling 03/22/2021 Obstructive sleep apnea syndrome in adult 2020 S/P total hip arthroplasty 11/29/2019 Hyperlipidemia LDL goal <100 09/16/2010 Restless legs syndrome (RLS) 10/31/2005 Primary localized osteoarthrosis, lower leg 09/17 Edema 09/28/2002 Overview (03/27/2009): Multifactorial - venous insufficiency, has [place]. MDD (major depressive disorder) 09/28/2002 Esophageal reflux 09/28/2002 Mixed hyperlipidemia 09/28/2002 Sleep apnea 09/28/2002 Overview (08/17/2015): Compliant with CPAP, has greatly improved symptoms. Problem list name updated by automated process. Provider to review Obesity 09/28/2002 Overview (08/17/2015): Problem list name updated by automated process. Provider to review Encounters Date Type Department Care Team Description 07/01/[address] [place] [phone] Leanne Pinon, RN Follow Up 06/15/2025 Documentation Only [facility] [address] [place] [address] Tabatha Rendon Advance Care Planning 06/06/2025 3:04 PM CDT Anesthesia Event [facility] [address] [place] [address] Otto Lynn MD Webb, Joaquin Garcia MD 06/06/2025 1:10 PM CDT - 06/06/2025 3:15 PM CDT Surgery [facility] [address] [place] [address] Ankur Devine MD Cystoscopy, retrograde pyelogram, ureteroscopy with laser lithotripsy, steerable vacuum-assisted suction, ureteral stent exchange 06/06/2025 10:32 AM CDT - 06/10/2025 12:26 PM CDT Hospital Encounter [facility] Extended Recovery and Short Stay [facility] [place] [phone] Ankur Devine MD Larson, Michael J, DO Severe sepsis (H) (Primary Dx); Acute pyelonephritis; Bladder spasm; Nephrolithiasis; Mixed stress and urge urinary incontinence Discharge Disposition: Care Home Facility 06/06/2025 Travel 05/25/[address] [place] [address] Leanne Pinon RN Follow Up (Surgery review) 05/24/[address] [place] [address] [address] [facility] 05/24/[address] [place] [address] [address] [facility] 05/23/[address] [place] [address] [address] [facility] 05/19/[address] [place] [address] [address] [facility] 05/18/[address] [place] [address] [address] [facility] 05/16/2025 Orders Only [facility] Service Line [address] [place] [phone] Anselmo Pfeiffer MD Right renal stone (Primary Dx) 05/16/[address] [place] [address] [address] [facility] 05/07/2025 5:05 PM CDT Anesthesia Event [address] [phone] Torsten Car MD 05/07/2025 5:00 PM CDT - 05/07/2025 6:25 PM CDT Surgery [address] [phone] Vikram Peterson MD CYSTOURETEROSCOPY, WITH RIGHT RETROGRADE PYELOGRAM AND RIGHT URETERAL STENT INSERTION, 05/07/2025 2:33 PM CDT - 05/12/2025 10:49 AM CDT Hospital Encounter [facility] Extended Recovery and Short Stay [address] [place] [phone] Vikram Peterson MD Frink, Nathan, MD Galatowitsch, John, MD Acute pyelonephritis (Primary Dx) Discharge Disposition: Care Home Facility 05/07/2025 Orders Only [facility] Service Line [address] [place] [phone] Vikram Peterson MD Kidney stone (Primary Dx) 05/07/2025 Telephone [facility] [address] [place] [phone] Vikram Peterson MD from Last 3 Months Immunizations Immunization Administration Dates Next Due HepB [...] School Help Needed Not on file 08/31 Food Insecurity Answer Date Recorded Within the past 12 months, d id you worry that your food would run out before you got money to buy more? No 06/07/2025 Within the past 12 months, d id the food you bought just not last and you didn t have money to get more? No 06/07/2025 Housing Stability Answer Date Recorded Do you have housing? (Housin g is defined as stable permanent housing and does not include staying outside in a car, in a tent, in an abandoned building, in an overnight senior care, or couch-surfing.) Yes 06/07/2025 Are you worried about losing your housing? No 06/07/2025 Financial Resource Strain Answer Date R ecorded Within the past 12 months, h ave you or your family members you live with been unable to get utilities (heat, electricity) when it was really needed? No 06/07/2025 Transportation Needs Answer Date Record ed Within the past 12 months, h as lack of transportation kept you from medical appointments, getting your medicines, non-medical meetings or appointments, work, or from getting things that you need? No 06/07/2025 Interpersonal Safety Answer Date Record ed Do you feel physically and e motionally safe where you currently live? Yes 06/06/2025 Within the past 12 months, h ave you been hit, slapped, kicked or otherwise physically hurt by someone? No 06/06/2025 Within the past 12 months, h ave you been humiliated or emotionally abused in other ways by your partner or ex-partner? 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 Pulse 70 06/10/2025 8:11 AM CDT Temperature 36.8 C (98.2 F) 06/10/2025 8:11 AM CDT Respiratory Rate 17 06/10/2025 8:11 AM CDT Oxygen Saturation 97% 06/10/2025 8:1 1 AM CDT Inhaled Oxygen Concentration - - Weight 111.2 kg (245 lb 1.6 oz) 06/06/2025 11:07 AM CDT Height 165.1 cm (5' 5) 06/06/2025 11:0 7 AM CDT Body Mass Index 40.79 06/06/2025 11:07 AM CDT Plan of Treatment Upcoming Encounters Date Type Department Care Team (Late st Contact Info) Description 08/11/2025 11:00 AM CDT Appointment [facility] [address] [facility] [address] [place] [phone] Ankur Devine MD [address] [place] [address] 08/15/2025 9:30 AM CDT Virtual Visit [facility] [address] [facility] [address] [place] [phone] Herminia Rodríguez, PRINT ROOM WORKER [facility] [address] [facility], [facility] [address] [place] [address] Health Maintenance Due Date Last Done Comments ANNUAL REVIEW OF HM ORDERS 1937 DEPRESSION ACTION PLAN 1937 MICROALBUMIN 1937 PARATHYROID 1937 PHOSPHORUS 1937 PHQ-9 1937 FALL RISK ASSESSMENT 2002 URIC ACID 01/26/2005 01/27/2004 MEDICARE ANNUAL WELLNESS VISIT 01/08/2007 01/08/2006, 05/27/2003 LIPID 09/15/2010 09/15/2009, 03/17, 03/31/2007, Additional history exists TSH W/FREE T4 REFLEX 09/15/2010 09/15/2009, 07/01/2007, 08/15/2006, Additional history exists DEXA 06/27/2020 06/27/2005 COVID-19 VACCINE ( season) 2025 09/03/2024, 09/12/2021, 02/17/2021, Additional history exists INFLUENZA VACCINE (#1) 2025 , 07/16/2023, 08/27/2022, Additional history exists BMP 09/13/2025 06/13/2025, 05/18, 06/09/2025, Additional history exists HEMOGLOBIN 12/14/2025 06/13/2025, 05/18, 06/08/2025, Additional history exists DTAP/TDAP/TD VACCINE (2 - Td or Tdap) 11/19/2026 11/19/2016, 08/10/2010, 01/24/2000 ADVANCE CARE PLANNING 06/15/2030 06/15/2025 ZOSTER VACCINE Completed 10/29/2018, 02/2018, 08/13/2012 PNEUMOCOCCAL VACCINE 50+ YEARS Completed 06/02/2025, 09/29/2015, 08/10/2010, Additional history exists RSV VACCINE Completed 06/02/2025 URINALYSIS Completed 06/07/2025, 04/18, 09/23/2007, Additional history exists ALK PHOS Completed 06/08/2025, 06/17, 05/21/2007, Additional history exists HPV VACCINE (No Doses Required) Completed MENINGITIS VACCINE Aged Out No longer eligible based on patient's age to complete this topic Medical Devices Implanted Type Area Sugar Refiner Device Identifier Shelf Expiration Date Model / Serial / Lot Imp Scr Zim 6.5x30mm Acet Cup Self Tap [id number] Implanted:Qty : 1 on 11/29/2019 by Tomas Eckert MD at [facility] Metallic Hardware/An chor Left: Hip [employer] 07/17/[id number] / / [id number] Stent Ureteral Polaris Ultra [id number] - [id number] Implanted:Qty : 1 on 06/06/2025 by Hector Casarez MD at [facility] Stent Right: Ureter [employer] [id number] 02/22/2028 [id number] / / [id number] Imp Shell Biom G7 Acetab Pps Carrillo Hole 52mm Sz E [id number] Implanted:Qty : 1 on 11/29/2019 by Tomas Eckert MD at [facility] Total Joint Component/I nsert Left: Hip [employer] 06/25/2029 [id number] / / [id number] Imp Stem Fem Biom Taperloc Hi Offset Type 1 Sz9 [id number] Implanted:Qty : 1 on 11/29/2019 by Tomas Eckert MD at [facility] Total Joint Component/I nsert Left: Hip [employer] 03/23/2029 [id number] / / [id number] Acetabular Liner Neutral, 36mm Head Size, E Liner Size Implanted:Qty : 1 on 11/29/2019 by Tomas Eckert MD at [facility] Left: Hip [employer] 08/27/2024 [id number] / / [id number] Biolox Delta Hip System Modular Ceramic Head, Type 1 Taper, 36mm Head 0 Standard Neck Implanted:Qty : 1 on 11/29/2019 by Tomas Eckert MD at [facility] Left: Hip [employer] 03/22/2029 [id number] / / [id number] Explanted Type Area Sugar Refiner Device Identifier Shelf Expiration Date Model / Serial / Lot Stent Ureteral Percuflex Plus [id number] - [id number] Implanted:Qty : 1 on 05/07/2025 by Vikram Peterson MD at [facility] Explanted:Qty : 1 on 06/06/2025 by Hector Casarez MD at [facility] Stent Right: Ureter [employer] [id number] 10/08/2027 [id number] / / [id number] Procedures Procedure Name Priority Date/Time Associated Diagnosis Comments BASIC METABOLIC PANEL (OUTREACH) Routine 06/13/2025 8:59 AM CDT Urinary tract infection, site not specified Acute posthemorrhagic anemia TRIP CHARGE - LAB ONLY Routine 06/13/2025 8:59 AM CDT Urinary tract infection, site not specified Acute posthemorrhagic anemia BASIC METABOLIC PANEL NO GLUCOSE (OUTREACH) Routine 06/13/2025 8:59 AM CDT Urinary tract infection, site not specified Acute posthemorrhagic anemia GLUCOSE (OUTREACH) Routine 06/13/2025 8:59 AM CDT Urinary tract infection, site not specified Acute posthemorrhagic anemia CBC WITH PLATELETS Routine 06/13/2025 8:59 AM CDT Urinary tract infection, site not specified Acute posthemorrhagic anemia BASIC METABOLIC PANEL (LIMITED OCCURRENCES) Routine 06/10/2025 7:21 AM CDT FOCUSED ENTERIC PATHOGEN PANEL BY PCR Routine 06/09/2025 12:18 PM CDT CBC WITH PLATELETS (LIMITED OCCURRENCES) Routine 06/09/2025 6:58 AM CDT BASIC METABOLIC PANEL (LIMITED OCCURRENCES) Routine 06/09/2025 6:58 AM CDT NT-PROBNP Add-On 06/08/2025 6:52 AM CDT HEPATIC FUNCTION PANEL Routine 06/08/2025 6:52 AM CDT CBC WITH PLATELETS Routine 06/08/2025 6:52 AM CDT BASIC METABOLIC PANEL Routine 06/08/2025 6:52 AM CDT URINE CULTURE Routine 06/07/2025 5:54 PM CDT ROUTINE UA WITH MICROSCOPIC REFLEX TO CULTURE Routine 06/07/2025 5:54 PM CDT XR CHEST 2 VIEWS Routine 06/07/2025 10:41 AM CDT BLOOD CULTURE STAT 06/07/2025 9:00 AM CDT BLOOD CULTURE STAT 06/07/2025 8:57 AM CDT PROCALCITONIN Add-On 06/07/2025 7:11 AM CDT BASIC METABOLIC PANEL Routine 06/07/2025 7:11 AM CDT CBC WITH PLATELETS Routine 06/07/2025 7:11 AM CDT XR SURGERY DAGOBERTO FLUORO LESS THAN 5 MIN W STILLS Routine 06/06/2025 4:13 PM CDT STONE ANALYSIS Routine 06/06/2025 4:03 PM CDT AEROBIC BACTERIAL CULTURE ROUTINE Routine 06/06/2025 3:49 PM CDT ANE AIRWAY SUPRAGLOTTIC PERFORMABLE Routine 06/06/2025 3:22 PM CDT CYSTOURETEROSCOPY , WITH RETROGRADE PYELOGRAM, HOLMIUM LASER LITHOTRIPSY OF URETERAL CALCULUS WITH STEERABLE ASPIRATION, AND STENT INSERTION 06/06/2025 3:06 PM CDT Right renal stone Special Needs *[place]-cpap, htn, hfpef, anemia, dvt, s3ckd. A&O x3, signs own consent, transfer assist of 1. providing transportation.-farxiga:lvm for pt to stop 3 days prior to surgery by 06/04/25 (AMAURY). Instructed RN at TCU to stop farxiga 3 days prior to valdez rgery (MM 06/01/25).[address] notified of case. 06/03 CARRIE. URINE CULTURE Routine 05/30/2025 12:00 PM CDT Encounter for preprocedural laboratory examination BASIC METABOLIC PANEL (OUTREACH) Routine 05/16/2025 6:09 AM CDT Abnormal results of kidney function studies TRIP CHARGE - LAB ONLY Routine 05/16/2025 6:09 AM CDT Abnormal results of kidney function studies BASIC METABOLIC PANEL NO GLUCOSE (OUTREACH) Routine 05/16/2025 6:09 AM CDT Abnormal results of kidney function studies GLUCOSE (OUTREACH) Routine 05/16/2025 6:09 AM CDT Abnormal results of kidney function studies LAB RESULT - HIM SCAN 05/16/2025 12:00 AM CDT BASIC METABOLIC PANEL Routine 05/12/2025 7:03 AM CDT CBC WITH PLATELETS Routine 05/12/2025 7:03 AM CDT EXTRA PURPLE TOP EDTA (LAB USE ONLY) Routine 05/11/2025 6:13 AM CDT BASIC METABOLIC PANEL Routine 05/11/2025 6:13 AM CDT NM LUNG SCAN VENTILATION AND PERFUSION STAT 05/10/2025 1:58 PM CDT LACTIC ACID WHOLE BLOOD WITH 1X REPEAT IN 2 HR WHEN >2 STAT 05/10/2025 11:01 AM CDT PROCALCITONIN STAT Add-on 05/10/2025 5:51 AM CDT CBC WITH PLATELETS Routine 05/10/2025 5:51 AM CDT BASIC METABOLIC PANEL Routine 05/10/2025 5:51 AM CDT XR CHEST PORT 1 VIEW Routine 05/09/2025 12:59 PM CDT TROPONIN T, HIGH SENSITIVITY Timed 05/09/2025 11:38 AM CDT D DIMER QUANTITATIVE Routine 05/09/2025 11:38 AM CDT ECG 12-LEAD WITH MUSE SJN,SJO,WWH Routine 05/09/2025 11:01 AM CDT TROPONIN T, HIGH SENSITIVITY Add-On 05/09/2025 6:02 AM CDT CBC WITH PLATELETS Routine 05/09/2025 6:02 AM CDT BASIC METABOLIC PANEL Routine 05/09/2025 6:02 AM CDT BLOOD CULTURE STAT 05/08/2025 5:57 AM CDT BLOOD CULTURE STAT 05/08/2025 5:56 AM CDT GLUCOSE BY METER Routine 05/08/2025 5:50 AM CDT HEMOGLOBIN A1C Routine 05/08/2025 5:38 AM CDT CBC WITH PLATELETS Routine 05/08/2025 5:38 AM CDT BASIC METABOLIC PANEL Routine 05/08/2025 5:38 AM CDT URINE CULTURE Routine 05/07/2025 8:52 PM CDT ROUTINE UA WITH MICROSCOPIC REFLEX TO CULTURE Routine 05/07/2025 8:52 PM CDT XR SURGERY DAGOBERTO FLUORO LESS THAN 5 MIN Routine 05/07/2025 5:58 PM CDT AEROBIC BACTERIAL CULTURE ROUTINE Routine 05/07/2025 5:45 PM CDT GRAM STAIN Routine 05/07/2025 5:45 PM CDT ANAEROBIC BACTERIAL CULTURE ROUTINE Routine 05/07/2025 5:45 PM CDT ANE AIRWAY ETT PERFORMABLE Routine 05/07/2025 5:22 PM CDT CYSTOURETEROSCOPY , WITH RETROGRADE PYELOGRAM AND STENT INSERTION 05/07/2025 5:05 PM CDT Kidney stone CT ABDOMEN PELVIS W/O CONTRAST STAT 05/07/2025 4:24 PM CDT LACTIC ACID WHOLE BLOOD WITH 1X REPEAT IN 2 HR WHEN >2 STAT 05/07/2025 4:00 PM CDT INR Routine 05/07/2025 4:00 PM CDT CBC WITH PLATELETS Routine 05/07/2025 4:00 PM CDT BASIC METABOLIC PANEL Routine 05/07/2025 4:00 PM CDT ECG 12-LEAD WITH MUSE SJN,SJO,WWH Routine 05/07/2025 3:20 PM CDT LAB RESULT - HIM SCAN 05/07/2025 12:00 AM CDT EKG CARDIAC - HIM SCAN 05/07/2025 12:00 AM CDT US IMAGING - HIM SCAN 05/07/2025 12:00 AM CDT ZZHCL TSH W/FREE T4 REFLEX Routine 09/15/2009 12:25 PM CDT Screening for Condition CL AFF A.M.A. 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 Other TOPOGRAPHY UNKNOWN / Unknown Billing only / Unknown 06/13/2025 8:59 AM CDT 06/13/2025 2:01 PM CDT Chris Peres SUPPLY CHAIN PROGRAM MANAGER LAB CHARGE PERFORMABLES Katy l Result [facility] [address] [place] [address], [facility] * (ABNORMAL) Basic Metabolic Panel No Glucose (OUTREACH) (06/13/2025 8:59 AM CDT) Only the most recent of2 resultswithin the time period is included. [facility] Sodium 140 135 - 145 mmol/L 06/13/2025 3:58 PM CDT [facility] Potassium 4.7 3.4 - 5.3 mmol/L 06/13/2025 3:58 PM CDT [facility] Chloride 101 98 - 107 mmol/L 06/13/2025 3:58 PM CDT [facility] Carbon Dioxide (CO2) 26 22 - 29 mmol/L 06/13/2025 3:58 PM CDT [facility] Anion Gap 13 7 - 15 mmol/L 06/13/2025 3:58 PM CDT [facility] Urea Nitrogen 21.1 8.0 - 23.0 mg/dL 06/13/2025 3:58 PM CDT [facility] Creatinine 1.46(H) 0.51 - 0.95 mg/dL 06/13/2025 3:58 PM CDT [facility] GFR Estimate 34(L) >60 mL/min/1.7 3m2 06/13/2025 3:58 PM CDT [facility] Calcium 10.3 8.8 - 10.4 mg/dL 06/13/2025 3:58 PM CDT [facility] Blood STRUCTURE OF RIGHT UPPER LIMB / Unknown Venipuncture / Unknown 06/13/2025 8:59 AM CDT 06/13/2025 2:01 PM CDT Chris Peres SUPPLY CHAIN PROGRAM MANAGER LAB - BLOOD ORDERABLES Final Result [facility] [address] [facility], [address] [place] [address], [place] * (ABNORMAL) Glucose (OUTREACH) (06/13/2025 8:59 AM CDT) Only the most recent of2 resultswithin the time period is included. Glucose 134(H) 70 - 99 mg/dL 06/13/2025 4:31 PM CDT [facility] Blood STRUCTURE OF RIGHT UPPER LIMB / Unknown Venipuncture / Unknown 06/13/2025 8:59 AM CDT 06/13/2025 2:01 PM CDT Chris Peres SUPPLY CHAIN PROGRAM MANAGER LAB - BLOOD ORDERABLES Final Result [facility] [address] [facility], [address] [place] [phone] * (ABNORMAL) CBC with platelets (06/13/2025 8:59 AM CDT) Only the most recent of8 resultswithin the time period is included. WBC Count 8.1 4.0 - 11.0 10e3/uL 06/13/2025 3:36 PM CDT [facility] RBC Count 4.04 3.80 - 5.20 10e6/uL 06/13/2025 3:36 PM CDT [facility] Hemoglobin 11.7 11.7 - 15.7 g/dL 06/13/2025 3:36 PM CDT [facility] Hematocrit 37.4 35.0 - 47.0 % 06/13/2025 3:36 PM CDT [facility] MCV 93 78 - 100 fL 06/13/2025 3:36 PM CDT [facility] MCH 29.0 26.5 - 33.0 pg 06/13/2025 3:36 PM CDT [facility] MCHC 31.3(L) 31.5 - 36.5 g/dL 06/13/2025 3:36 PM CDT [facility] RDW 13.7 10.0 - 15.0 % 06/13/2025 3:36 PM CDT [facility] Platelet Count 245 150 - 450 10e3/uL 06/13/2025 3:36 PM CDT [facility] Blood STRUCTURE OF RIGHT UPPER LIMB / Unknown Venipuncture / Unknown 06/13/2025 8:59 AM CDT 06/13/2025 2:01 PM CDT Chris Peres SUPPLY CHAIN PROGRAM MANAGER LAB - BLOOD ORDERABLES Final Result LABORATORY [facility] [address] [facility] [address] [facility], [address] [place] [address], [facility] * (ABNORMAL) Basic Metabolic Panel (Limited Occurrences) (06/10/2025 7:21 AM CDT) Only the most recent of2 resultswithin the time period is included. Pathologist [facility] Sodium 137 135 - 145 mmol/L 06/10/2025 8:21 AM [facility] Potassium 4.7 3.4 - 5.3 mmol/L 06/10/2025 8:21 AM [facility] Chloride 107 98 - 107 mmol/L 06/10/2025 8:21 AM [facility] Carbon Dioxide (CO2) 24 22 - 29 mmol/L 06/10/2025 8:21 AM [facility] Anion Gap 6(L) 7 - 15 mmol/L 06/10/2025 8:21 AM [facility] Urea Nitrogen 24.7(H) 8.0 - 23.0 mg/dL 06/10/2025 8:21 AM [facility] Creatinine 1.39(H) 0.51 - 0.95 mg/dL 06/10/2025 8:21 AM [facility] GFR Estimate 37(L) >60 mL/min/1.7 3m2 06/10/2025 8:21 AM [facility] Comment:eGFR calculated us2020 CKD-EPI equation. Calcium 9.6 8.8 - 10.4 mg/dL 06/10/2025 8:21 AM [facility] Glucose 101(H) 70 - 99 mg/dL 06/10/2025 8:21 AM [facility] Blood BLOOD SPECIMEN / Unknown Venipuncture / Unknown 06/10/2025 7:21 AM CDT 06/10/2025 7:51 AM CDT Juanito Obregon DO LAB - BLOOD ORDERABLES Final Result LABORATORY [facility] [address], [address] [place] [address], [facility] [phone] * Focused Enteric Pathogen Panel by PCR (06/09/2025 12:18 PM CDT) Campylobacter species Negative Negative 06/09/2025 5:41 PM CDT [facility] Salmonella species Negative Negative 2024 5:41 PM CDT [facility] Vibrio species Negative Negative 06/09/2025 5:41 PM CDT [facility] Yersinia enterocolitica Negative Negative 06/09/2025 5:41 PM CDT [facility] Shiga-like toxin-producing E. coli (STEC) Negative Negative 06/09/2025 5:41 PM CDT [facility] Shigella/Enteroinva sive E. coli (EIEC) Negative Negative 06/09/2025 5:41 PM CDT [facility] Cryptosporidium species Negative Negative 06/09/2025 5:41 PM CDT [facility] Giardia lamblia Negative Negative 5:41 PM CDT [facility] Norovirus Gl/Gll Negative Negative 06/09/20 5:41 PM CDT [facility] Cyclospora cayetanensis Negative Negative 06/09/2025 5:41 PM CDT [facility] Stool RECTAL CONTENTS / Unknown Non-blood Collection / Unknown 06/09/2025 12:18 PM CDT 06/09/2025 12:29 PM CDT Narrative [facility] - 06/09/2025 5:41 PM CDT Assay performed using the FDA-cleared DepotPointArray GI Panel Mid from [employer] A negative result should not rule out infection in patients with a probability for gastrointestinal infection. The assay does not test for all potential infectious agents of diarrheal disease. Positive results do not distinguish between a viable or replicating organism and the presence of a nonviable organism or nucleic acid, nor do they exclude the possibility of coinfection by organisms not in the panel. Results are intended to aid in the diagnosis of illness and are meant to be used in conjunction with other clinical findings. This test has been verified and is performed by the Infectious Diseases Diagnostic Laboratory at [facility]. This laboratory is certified under the Clinical Laboratory Improvement Amendments of 1988 (CLIA-88) as qualified to perform high complexity clinical laboratory testing. us Juanito Obregon DO LAB - MICRO GENERAL ORDERABL ES Final Result [facility] Inf. Diseases Diag. Lab [address] [place] [address] * (ABNORMAL) CBC with Platelets (Limited Occurrences) (06/09/2025 6:58 AM CDT) [facility] WBC Count 8.1 4.0 - 11.0 10e3/uL 06/09/2025 7:17 AM CDT LABORATORY RBC Count 3.75(L) 3.80 - 5.20 10e6/uL 06/09/2025 7:17 AM CDT LABORATORY Hemoglobin 11.1(L) 11.7 - 15.7 g/dL 06/09/2025 7:17 AM CDT LABORATORY Hematocrit 34.7(L) 35.0 - 47.0 % 06/09/2025 7:17 AM CDT LABORATORY MCV 93 78 - 100 fL 06/09/2025 7:17 AM CDT LABORATORY MCH 29.6 26.5 - 33.0 pg 06/09/2025 7:17 AM CDT LABORATORY MCHC 32.0 31.5 - 36.5 g/dL 06/09/2025 7:17 AM CDT LABORATORY RDW 13.5 10.0 - 15.0 % 06/09/2025 7:17 AM CDT LABORATORY Platelet Count 140(L) 150 - 450 10e3/uL 06/09/2025 7:17 AM CDT LABORATORY Blood STRUCTURE OF LEFT UPPER LIMB / Unknown Venipuncture / Unknown 06/09/2025 6:58 AM CDT 06/09/2025 7:10 AM CDT us Juanito Obregon DO LAB - BLOOD ORDERABLES Final Result LABORATORY [facility] [address], [address] [place] [address], [facility] [phone] * (ABNORMAL) NT-proBNP (06/08/2025 6:52 AM CDT) [facility] NT-proBNP 839(H) 0 - 624 pg/mL 06/08/2025 7:57 AM CDT LABORATORY Comment: Starting on 03/23/2025, [facility] laboratory began flagging abnormal values for plasma NT-proBNP results for adults using age-specific reference ranges instead of clinical cut-points/thresholds (see interpretation comment below for clinical threshold values) as part of a test standardization effort. Pediatric abnormal values were already previously flagged using age-specific reference intervals, which are not currently changing. The test methodology remains unchanged, and previous results performed with this methodology can be interpreted with the updated reference intervals. [facility]'s Pediatric (boys and girls) Reference Ranges in pg/mL * 0 up to 3 days: 0 - 49059 3 days up to 1 month: 0 - 6500 1 month up to 1 year: 0 - 1000 2 up to 6 years: 0 - 330 6 up to 18 years: 0 - 240 Male Reference Ranges in pg/mL 18-44 years: 0 - 93 45-54 years: 0 - 138 55-64 years: 0 - 177 65-74 years: 0 - 229 75 years or older: 0 - 852 Female Reference Ranges in pg/mL 8-44 years: 0 - 178 45-54 years: 0 - 192 55-64 years: 0 - 226 65-74 years: 0 - 353 75 years or older: 0 - 624 Reference ranges in adults reflect 95th percentiles for NT-pro-BNP levels in patients without congestive heart failure (CHF). Knowledge of each individual patient's NT-proBNP range may be more useful than using similar cut-points for every patient. For adult chronic CHF patients according to [place] Heart Association (NYHA) Functional Class, the mean NT-proBNP concentration is as following (5th and 95th percentile values respectively displayed in parentheses): Class I: 1016 pg/mL (33-3410) Class II: 1666 pg/mL (103-6567) Class III: 3029 pg/mL (126-61297) Class IV: 3465 pg/mL (148-63415) Clinical thresholds for acute (emergency department) settings: < 300 pg/mL effectively rules out acute decompensated heart failure (ADHF), with 99% negative predictive value. The following values may rule in potential acute decompensated heart failure (ADHF) in individuals (with a PPV of 50-60%): Under 50 years: >450 pg/mL Between 50-75 years: >900 pg/mL Over 75 years: >1800 pg/mL Among patients with dyspnea, NT-proBNP is highly sensitive for detection of acute CHF. Elevations in NT-proBNP levels may be observed in states other than left ventricular congestive failure including: acute coronary syndromes, right heart strain/failure (including pulmonary embolism and cor pulmonale), critical illness, and renal failure. Falsely low NT-proBNP in CHF patients may be observed in increased body mass index. * References: (1) Slava Corley et al. Pediatr Cardiol 30:3-8, 2008. Blood STRUCTURE OF LEFT UPPER LIMB / Unknown Venipuncture / Unknown 06/08/2025 6:52 AM CDT 06/08/2025 6:57 AM CDT us Juanito Obregon DO LAB - BLOOD ORDERABLES Final Result LABORATORY [facility] [address], [address] [place] [address], [facility] [phone] * (ABNORMAL) Hepatic function panel (06/08/2025 6:52 AM CDT) Pathologist [facility] Protein Total 5.4(L) 6.4 - 8.3 g/dL 06/08/2025 7:18 AM CDT LABORATORY Albumin 3.0(L) 3.5 - 5.2 g/dL 06/08/2025 7:18 AM CDT LABORATORY Bilirubin Total 0.3 <=1.2 mg/dL 06/08/2025 7:18 AM CDT LABORATORY Alkaline Phosphatase 73 40 - 150 U/L 06/08/2025 7:18 AM CDT LABORATORY AST 17 0 - 45 U/L 06/08/2025 7:18 AM CDT LABORATORY ALT 7 0 - 50 U/L 06/08/2025 7:18 AM CDT LABORATORY Bilirubin Direct 0.13 0.00 - 0.30 mg/dL 06/08/2025 7:18 AM CDT LABORATORY Comment:As of 25, refer ence ranges and trending lines may vary depending on the testing location. Blood STRUCTURE OF LEFT UPPER LIMB / Unknown Venipuncture / Unknown 06/08/2025 6:52 AM CDT 06/08/2025 6:57 AM CDT us Juanito Obregon DO LAB - BLOOD ORDERABLES Final Result LABORATORY [facility] [address], [address] [place] [address], [facility] [phone] * (ABNORMAL) Basic metabolic panel (06/08/2025 6:52 AM CDT) Only the most recent of8 resultswithin the time period is included. Sodium 139 135 - 145 mmol/L 06/08/2025 7:18 AM [facility] Potassium 4.5 3.4 - 5.3 mmol/L 06/08/2025 7:18 AM [facility] Chloride 105 98 - 107 mmol/L 06/08/2025 7:18 AM [facility] Carbon Dioxide (CO2) 25 22 - 29 mmol/L 06/08/2025 7:18 AM [facility] Anion Gap 9 7 - 15 mmol/L 06/08/2025 7:18 AM T LABORATORY Urea Nitrogen 38.7(H) 8.0 - 23.0 mg/dL 06/08/2025 7:18 AM CDT LABORATORY Creatinine 2.35(H) 0.51 - 0.95 mg/dL 06/08/2025 7:18 AM T [facility] GFR Estimate 19(L) >60 mL/min/1.7 3m2 06/08/2025 7:18 AM CDT LABORATORY Comment:eGFR calculated usin 2020 CKD-EPI equation. Calcium 8.8 8.8 - 10.4 mg/dL 06/08/2025 7:18 AM CDT LABORATORY Glucose 103(H) 70 - 99 mg/dL 06/08/2025 7:18 AM CDT LABORATORY Blood STRUCTURE OF LEFT UPPER LIMB / Unknown Venipuncture / Unknown 06/08/2025 6:52 AM CDT 06/08/2025 6:57 AM CDT Juanito Obregon DO LAB - BLOOD ORDERABLES Final Result LABORATORY [facility] [address], [address] [place] [address], [facility] [phone] * (ABNORMAL) UA with Microscopic reflex to Culture (06/07/2025 5:54 PM CDT) Only the most recent of2 resultswithin the time period is included. Color Urine Swain(A) Colorless, Straw, Light Yellow, Yellow 06/07/2025 6:37 PM CDT LABORATORY Appearance Urine Slightly Cloudy(A) Clear 06/07/2025 6:37 PM CDT LABORATORY Glucose Urine Negative Negative mg/dL 06/07/2025 6:37 PM CDT LABORATORY Bilirubin Urine Negative Negative 6:37 PM CDT LABORATORY Ketones Urine Negative Negative mg/dL 06/07/2025 6:37 PM CDT LABORATORY Specific [place] Urine 1.017 1.003 - 1.035 06/07/2025 6:37 PM CDT LABORATORY Blood Urine Large(A) Negative 06/07/2025 6:37 PM CDT LABORATORY pH Urine 5.5 5.0 - 7.0 06/07/2025 6:37 PM CDT LABORATORY Protein Albumin Urine 70(A) Negative mg/dL 06/07/2025 6:37 PM CDT LABORATORY Urobilinogen Urine Normal Normal mg/dL 06/07/2025 6:37 PM CDT LABORATORY Nitrite Urine Negative Negative 06/07/2025 6:37 PM CDT LABORATORY Leukocyte Esterase Urine Large(A) Negative 06/07/2025 6:37 PM CDT LABORATORY WBC Clumps Urine Present(A) None Seen /HPF 06/07/2025 6:37 PM CDT [facility] Mucus Urine Present(A) None Seen /LPF 06/07/2025 6:37 PM CDT LABORATORY RBC Urine >182(H) <=2 /HPF 06/07/2025 6:37 PM CDT [facility] WBC Urine >182(H) <=5 /HPF 06/07/2025 6:37 PM CDT [facility] Squamous Epithelials Urine <1 <=1 /HPF 06/07/2025 6:37 PM CDT [facility] Urine URINE SPECIMEN OBTAINED BY CLEAN CATCH PROCEDURE / Unknown Non-blood Collection / Unknown 06/07/2025 5:54 PM CDT 06/07/2025 6:11 PM CDT Narrative LABORATORY - 06/07/2025 6:37 PM CDT Urine Culture ordered based on laboratory criteria us Juanito Obregon DO LAB - URINE ORDERABLES Final Result [facility] LABORATORY [facility] [address], [address] [place] [address], [facility] [phone] * Urine Culture (06/07/2025 5:54 PM CDT) Only the most recent of3 resultswithin the time period is included. Culture No Growth 06/08/2025 2:14 PM CDT [facility] Urine URINE SPECIMEN OBTAINED BY CLEAN CATCH PROCEDURE / Unknown Non-blood Collection / Unknown 06/07/2025 5:54 PM CDT 06/07/2025 6:37 PM CDT us Juanito Obregon DO LAB - MICRO GENERAL ORDERABL ES Final Result [facility] Inf. Diseases Diag. Lab [address] [place] [address], [place] * XR Chest 2 Views (06/07/2025 10:41 AM CDT) Anatomical Region Laterality Modality Chest Digital Radiogra phy 06/07/2025 10:4 1 AM CDT Impressions 06/07/2025 11:38 AM CDT IMPRESSION: Cardiac silhouette is within normal limits. No infiltrate, effusion, or pneumothorax. Degenerative changes are noted through the spine and both shoulders. Narrative 06/07/2025 11:38 AM CDT EXAM: XR CHEST 2 VIEWS LOCATION: [facility] DATE: 06/07/2025 INDICATION: Infectious work-up. COMPARISON: None. Procedure Note Kole Mcgovern MD - 06/07/2025 EXAM: XR CHEST 2 VIEWS LOCATION: [facility] DATE: 06/07/2025 INDICATION: Infectious work-up. COMPARISON: None. IMPRESSION: Cardiac silhouette is within normal limits. No infiltrate,effusion, or pneumothorax. Degenerative changes are noted through thespine and both shoulders. Juanito Obregon DO IMG DIAGNOSTIC IMAGING ORDER HEATHER Final Result * Blood Culture Peripheral blood (BC) Arm, Right (06/07/2025 9:00 AM CDT) Only the most recent of4 resultswithin the time period is included. Culture No Growth 06/12/2025 11:16 AM CDT [facility] Peripheral blood (BC) STRUCTURE OF RIGHT UPPER LIMB / Unknown Venipuncture / Unknown 06/07/2025 9:00 AM CDT 06/07/2025 9:09 AM CDT Juanito Obregon DO LAB - MICRO GENERAL ORDERABL ES Final Result [facility] Inf. Diseases Diag. Lab [address] [place] [address], [facility] * (ABNORMAL) Procalcitonin (06/07/2025 7:11 AM CDT) Only the most recent of2 resultswithin the time period is included. Procalcitonin 15.70(HH) <0.50 ng/mL 06/07/2025 9:57 AM CDT LABORATORY Comment: Interpretation and Recommendations <0.5 ng/mL: Systemic bacterial infection unlikely. Local bacterial infection is possible. 0.5-1.99 ng/mL: Systemic bacterial infection possible, but various other conditions are known to induce PCT as well. >=2.00 ng/mL: Systemic bacterial infection likely, unless other causes are known. Decision to start antibiotics should not be based on procalcitonin level alone. See Procalcitonin Guidance document for more details. [email or web address] Factors that may affect PCT levels (not all-inclusive): - Increased PCT level Severe trauma/aguirre Invasive surgery Cooling therapy after cardiac arrest/surgery Treatment with agents which stimulate cytokines Acute kidney injury Chronic kidney disease and end stage renal disease Acute graft vs host disease Non-specific shock causing decreased organ perfusion and/or infarction - Normal or unchanged PCT level Early in infections (if low and infection is suspected, repeating in 6-12 hours is recommended) Chronic infections (endocarditis, osteomyelitis, prosthetic device/graft infections) Localized infections (cellulitis, wound infections, intra-abdominal abscess) Note: PCT has not been extensively studied in /, pediatrics, severe immunosuppression, and cystic fibrosis. Blood STRUCTURE OF RIGHT UPPER LIMB / Unknown Venipuncture / Unknown 06/07/2025 7:11 AM CDT 06/07/2025 7:36 AM CDT us Juanito Obregon DO LAB - BLOOD ORDERABLES Final Result LABORATORY [facility] [address], [address] [place] [address], [facility] [phone] * XR Surgery DAGOEBRTO L/T 5 Min Fluoro w Stills (06/06/2025 4:13 PM CDT) Narrative [facility] - 06/06/2025 4:13 PM CDT This exam was marked as non-reportable because it will not be read by a radiologist or a [place] non-radiologist provider. Ankur Devine MD IMG DIAGNOSTIC IMAGING ORDERABLES Final Result Performing Organization Address City/[facility]/ZIP Co de Phone Number [facility] * Stone analysis (06/06/2025 4:03 PM CDT) Stone Mass 225 mg 06/11/2025 5:01 AM CDT [facility] Calculi Description See Note 06/11/2025 5:01 AM CDT [facility] Comment: Specimen consists of one brown calculus. The total weight is 225 mg. Stone Composition See Note 5:01 AM CDT [facility] Comment: Calculi composed primarily of calcium phosphate (hydroxy- and carbonate- apatite). INTERPRETIVE INFORMATION: Calculi (Stone) analysis Calculi are the products of physiological processes that yield crystalline compounds in a matrix of biological compounds and blood. Matrix components are not reported. The clinically significant crystalline components identified in calculi specimens are reported. Gross description may not be consistent with composition determined by FTIR analysis. Performed By: [facility] [address] [place] [address] Resistance Brazer: Kole Trent MD, PhD CLIA Number: [id number] Calculus/Stone RIGHT KIDNEY STRUCTURE / Unknown Non-blood Collection / Unknown 06/06/2025 4:03 PM CDT 06/06/2025 4:21 PM CDT Ankur Devine MD LAB - BODY FLUIDS ORDER HEATHER Final Result Performing Organization Address [facility]/ZIP Co de Phone Number [employer] [address] [place] [address], [facility] [phone] * Calculus/Stone Aerobic Bacterial Culture Routine (06/06/2025 3:49 PM CDT) Only the most recent of2 resultswithin the time period is included. Culture No Growth 06/11/2025 7:08 AM CDT [facility] Calculus/Stone RIGHT KIDNEY STRUCTURE / Unknown Non-blood Collection / Unknown 06/06/2025 3:49 PM CDT 06/06/2025 4:21 PM CDT Ankur Devine MD LAB - MICRO GENERAL ORD ERABLES Final Result [facility] Inf. Diseases Diag. Lab [address] [place] [address] * ANE AIRWAY SUPRAGLOTTIC PERFORMABLE (06/06/2025 3:22 PM CDT) Only the most recent of2 resultswithin the time period is included. Narrative Lenore Kaur APRN RAW STOCK MACHINE FEEDER - 06/06/2025 3:22 PM CDT Lenore Kaur APRN RAW STOCK MACHINE FEEDER 06/06/2025 3:22 PM Airway Patient location during procedure: OR Staff - Anesthesiologist: Otto Lynn MD RAW STOCK MACHINE FEEDER: Lenore Kaur APRN RAW STOCK MACHINE FEEDER Performed By: RAW STOCK MACHINE FEEDER Consent for Airway Urgency: elective Indications and Patient Condition Indications for airway management: cassandra-procedural Induction type:intravenous Mask difficulty assessment: 0 - not attempted Final Airway Details Final airway type: supraglottic airway Supraglottic Airway Details Type: LMA Brand: I-Gel LMA size: 4 Post intubation assessment Placement verified by: capnometry and chest rise Number of attempts at approach: 1 Number of other approaches attempted: 0 Ease of procedure: easy Dentition: Intact and Unchanged Otto Lynn MD [place] ANESTHESIA Final Result * Lab Result - HIM Scan (05/16/2025 12:00 AM CDT) Only the most recent of2 resultswithin the time period is included. 05/16/2025 Provider Outside NON-BEAKER LAB TESTING Final Result * Extra Purple Top EDTA (LAB USE ONLY) (05/11/2025 6:13 AM CDT) Pathologist [facility] Hold Specimen [facility] 05/11/2025 7:31 AM CDT [facility] Blood STRUCTURE OF LEFT UPPER LIMB / Unknown Venipuncture / Unknown 05/11/2025 6:13 AM CDT 05/11/2025 6:20 AM CDT Vikram Peterson MD LAB - BLOOD ORDERABLES Final Result [facility] [address] [place] [address], [facility] * NM Lung Scan Ventilation and Perfusion (05/10/2025 1:58 PM CDT) Anatomical Region Laterality Modality Chest Nuclear Medicine 05/10/2025 1:58 PM CDT Impressions 05/10/2025 2:29 PM CDT IMPRESSION: Low probability for pulmonary embolism. Narrative 05/10/2025 2:29 PM CDT EXAM: NM LUNG SCAN VENTILATION AND PERFUSION LOCATION: [facility] DATE: 05/10/2025 INDICATION: Shortness of breath. COMPARISON: Chest radiograph 05/09/2025. TECHNIQUE: 60.5 mCi Tc-99m DTPA inhaled. 8.7 mCi Tc-99m MAA, IV. Standard planar imaging during perfusion and ventilation portions of exam. FINDINGS: Heterogeneous pulmonary ventilation. Small matched subsegmental defect in the periphery of the left lung base, which is low probability for pulmonary embolism. Otherwise, homogeneous pulmonary perfusion. No mismatched segmental perfusion defect. Procedure Note Lucia Rodríguez MD - 05/10/2025 EXAM: NM LUNG SCAN VENTILATION AND PERFUSION LOCATION: [facility] DATE: 05/10/2025 INDICATION: Shortness of breath. COMPARISON: Chest radiograph 05/09/2025. TECHNIQUE: 60.5 mCi Tc-99m DTPA inhaled. 8.7 mCi Tc-99m MAA, IV. Standardplanar imaging during perfusion and ventilation portions of exam. FINDINGS: Heterogeneous pulmonary ventilation. Small matched subsegmental defect inthe periphery of the left lung base, which is low probability forpulmonary embolism. Otherwise, homogeneous pulmonary perfusion. Nomismatched segmental perfusion defect. IMPRESSION: Low probability for pulmonary embolism. Cyn East MD IMG NM ORDERABLES Final Result * Lactic Acid Whole Blood with 1X Repeat in 2 HR when >2 (05/10/2025 11:01 AM CDT) Only the most recent of2 resultswithin the time period is included. Lactic Acid, Initial 1.3 0.7 - 2.0 mmol/L 05/10/2025 11:11 AM CDT [facility] Blood STRUCTURE OF LEFT HAND / Unknown Venipuncture / Unknown 05/10/2025 11:01 AM CDT 05/10/2025 11:04 AM CDT Cyn East MD LAB - BLOOD ORDERABLES Final Re sult [facility] [address] [place] [address], [facility] * XR Chest Port 1 View (05/09/2025 12:59 PM CDT) Anatomical Region Laterality Modality Chest Computed Radiogr aphy 05/09/2025 12:5 9 PM CDT Impressions 05/09/2025 11:18 PM CDT IMPRESSION: Mild bibasilar atelectasis and/or scarring. No focal pulmonary consolidation otherwise, or significant pleural effusion. Normal heart size without pulmonary vascular congestion. Atherosclerotic calcifications of the aortic arch. No pneumothorax. Irregularity of the lateral left seventh rib which could be seen with an acute fracture in the right clinical context. Recommend correlation with point tenderness. Degenerative changes of the thoracic spine. Degenerative changes of the shoulders. Narrative 05/09/2025 11:18 PM CDT EXAM: XR CHEST PORT 1 VIEW LOCATION: [facility] DATE: 05/09/2025 INDICATION: chest pain COMPARISON: None. Procedure Note Joshua Lopez MD - 05/09/2025 EXAM: XR CHEST PORT 1 VIEW LOCATION: [facility] DATE: 05/09/2025 INDICATION: chest pain COMPARISON: None. IMPRESSION: Mild bibasilar atelectasis and/or scarring. No focal pulmonaryconsolidation otherwise, or significant pleural effusion. Normal heartsize without pulmonary vascular congestion. Atherosclerotic calcificationsof the aortic arch. No pneumothorax. Irregularity of the lateral left seventh rib which could beseen with an acute fracture in the right clinical context. Recommendcorrelation with point tenderness. Degenerative changes of the thoracicspine. Degenerative changes of the shoulders. us Peter Choudhary MD IMG DIAGNOSTIC IMAGING ORDERABLE S Final Result * (ABNORMAL) Troponin T, High Sensitivity (05/09/2025 11:38 AM CDT) Only the most recent of2 resultswithin the time period is included. Pathologist [facility] Troponin T, High Sensitivity 29(H) <=14 ng/L 05/09/2025 12:07 PM CDT [facility] Comment: Either a High Sensitivity Troponin T baseline (0 hours) value = 100 ng/L, or an increase in High Sensitivity Troponin T = 7 ng/L at 2 hours compared to 0 hours (2-0 hours), suggests myocardial injury, and urgent clinical attention is required. If the 2-0 hours increase is <7 ng/L, a High Sensitivity Troponin T result above gender-specific reference ranges warrants further evaluation. Recommendations for further evaluation include correlation with clinical decision-making tool (e.g., HEART), a 3rd High Sensitivity Troponin T test 2 hours after the 2nd (a 20% change from baseline would represent concern), admission for observation, close PCC/cardiology follow-up, or urgent outpatient provocative testing. Blood STRUCTURE OF LEFT HAND / Unknown Venipuncture / Unknown 05/09/2025 11:38 AM CDT 05/09/2025 11:43 AM CDT us Vikram Peterson MD LAB - BLOOD ORDERABLES Final Result [facility] [address] [place] [address], [facility] * (ABNORMAL) D dimer quantitative (05/09/2025 11:38 AM CDT) Pathologist [facility] D-Dimer Quantitative 3.31(H) 0.00 - 0.50 ug/mL FEU 05/09/2025 12:02 PM CDT [facility] Blood STRUCTURE OF LEFT HAND / Unknown Venipuncture / Unknown 05/09/2025 11:38 AM CDT 05/09/2025 11:43 AM CDT Narrative [facility] - 05/09/2025 12:02 PM CDT This D-dimer assay is intended for use in conjunction with a clinical pretest probability assessment model to exclude pulmonary embolism (PE) and deep venous thrombosis (DVT) in outpatients suspected of PE or DVT. The cut-off value is 0.50 ug/mL FEU. For patients 50 years of age or older, the application of age-adjusted cut-off values for D-Dimer may increase the specificity without significant effect on sensitivity. The literature suggested calculation age adjusted cut-off in ug/L = age in years x 10 ug/L. The results in this laboratory are reported as ug/mL rather than ug/L. The calculation for age adjusted cut off in ug/mL= age in years x 0.01 ug/mL. For example, the cut off for a 76 year old male is 78 x 0.01 ug/mL = 0.76 ug/mL (760 ug/L). M Kaylah et al. Age adjusted D-dimer cut-off levels to rule out pulmonary embolism: The ADJUST-PE Study. ROC 2014;311:8080-0358.; HJ Ami et al. Diagnostic accuracy of conventional or age adjusted D-dimer cutoff values in older patients with suspected venous thromboembolism. Systemic review and meta-analysis. BMJ 2013:346:f2492. us Peter Choudhary MD LAB - BLOOD ORDERABLES Final Res ult [facility] LABORATORY [facility] [address] [place] [address], [facility] * ECG 12-LEAD WITH MUSE (LHE) (05/09/2025 11:01 AM CDT) Only the most recent of2 resultswithin the time period is included. Systolic Blood Pressure mmHg RADIOLOGY RESULTS Diastolic Blood Pressure mmHg RADIOLOGY RESULTS Ventricular Rate 75 BPM RAD IOLOGY RESULTS Atrial Rate 75 BPM RADIOLOG Y RESULTS WY Interval 218 ms RADIOLOG Y RESULTS QRS Duration 88 ms RADIOLO GY RESULTS QT 350 ms RADIOLOGY RESULTS QTc 390 ms RADIOLOGY RESULTS P [place] 66 degrees RADIOLOGY RESULTS R AXIS 24 degrees RADIOLOGY RESULTS T [place] 65 degrees RADIOLOGY RESULTS Interpretation ECG Sinus rhythm with 1st degree A-V block Otherwise normal ECG When compared with ECG of 07-May-2025 15:20, No significant change was found Confirmed by JUAN JOSE ORO MD LOC: ([id number]) on 05/09/2025 2:42:38 PM RADIOLOGY RESULTS 05/09/2025 11:0 1 AM CDT 05/09/2025 2:42 PM CDT us Peter Choudhary MD ECG ORDERABLES Edited Result - Final RADIOLOGY RESULTS * (ABNORMAL) Glucose by meter (05/08/2025 5:50 AM CDT) GLUCOSE BY METER POCT 138(H) 70 - 99 mg/dL 05/08/2025 5:57 AM CDT [facility] POCT RESULTS Blood, Capillary BLOOD SPECIMEN / Unknown 05/08/2025 5:50 AM CDT 05/08/2025 5:57 AM CDT us Vikram Peterson MD LAB - BEAKER POCT Final Resul t [facility] POCT RESULTS [address] [place] [address] * (ABNORMAL) Hemoglobin A1c (05/08/2025 5:38 AM CDT) Estimated Average Glucose 117(H) <117 mg/dL 05/08/2025 6:52 AM CDT N LABORATORY Hemoglobin A1C 5.7(H) <5.7 % 05/08/2025 6:52 AM CDT N LABORATORY Comment: Normal <5.7% Prediabetes 5.7-6.4% Diabetes 6.5% or higher Note: Adopted from ADA consensus guidelines. Blood BLOOD SPECIMEN / Unknown Venipuncture / Unknown 05/08/2025 5:38 AM CDT 05/08/2025 6:23 AM CDT Mark Abel MD LAB - BLOOD ORDERABLES Katy l Result [facility] LABORATORY [facility] [address] [place] [address], [facility] * XR Surgery DAGOBERTO Fluoro L/T 5 Min (05/07/2025 5:58 PM CDT) Narrative RADIANT - 05/07/2025 6:00 PM CDT This exam was marked as non-reportable because it will not be read by a radiologist or a [place] non-radiologist provider. Vikram Peterson MD IMG DIAGNOSTIC IMAGING ORDERA BLES Final Result Performing Organization Address [facility] Co de Phone Number RADIANT * Gram Stain (05/07/2025 5:45 PM CDT) GS Culture See corresponding culture for results YOHANA 05/07/2025 8:30 PM CDT [facility] Gram Stain Result No organisms seen 05/07/2025 8:30 PM CDT [facility] Gram Stain Result 4+ WBC seen 05/07/2025 8:30 PM CDT [facility] Comment:Predominantly PMNs Body fluid, unsp RIGHT KIDNEY STRUCTURE / Unknown Non-blood Collection / Unknown 05/07/2025 5:45 PM CDT 05/07/2025 6:38 PM CDT Vikram Peterson MD LAB - MICRO GENERAL ORDERABLE S Final Result [facility] Inf. Diseases Diag. Lab [address] [place] [address], [facility] * Anaerobic Bacterial Culture Routine (05/07/2025 5:45 PM CDT) Culture No anaerobic organisms isolated YOHANA 05/14/2025 8:14 AM CDT [facility] Body fluid, unsp RIGHT KIDNEY STRUCTURE / Unknown Non-blood Collection / Unknown 05/07/2025 5:45 PM CDT 05/07/2025 6:38 PM CDT Narrative [facility] - 05/14/2025 8:14 AM CDT This specimen was not received in an anaerobic transport container, thus the absence or quantity of anaerobic organisms in this culture may not be financial foundations representative of the anaerobic organisms present in the specimen. us Vikram Peterson MD LAB - MICRO GENERAL ORDERABLE S Final Result [facility] Inf. Diseases Diag. Lab [address] [place] [address] * CT Abdomen Pelvis w/o Contrast (05/07/2025 4:24 PM CDT) Anatomical Region Laterality Modality Abdomen/Pelvis, SUBRAD CT OCTAVIO DY, UMP CT ABDOMEN PELVIS, RAD CT Computed Tomography 05/07/2025 4:24 PM CDT Impressions 05/07/2025 5:18 PM CDT IMPRESSION: 1. Linear 6 mm stone at the right UPJ with mild right-sided hydronephrosis. Multiple additional partially branched stones in the mid and lower right kidney unchanged. Right perinephric soft tissue stranding. 2. Postsurgical changes in the sigmoid colon. 3. 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 Narrative 05/07/2025 5:18 PM CDT EXAM: CT ABDOMEN PELVIS W/O CONTRAST LOCATION: [facility] DATE: 05/07/2025 INDICATION: Eval for right sided ureterolithiasis, other stones COMPARISON: 05/07/2025 TECHNIQUE: CT scan of the abdomen and pelvis was performed without IV contrast. Multiplanar reformats were obtained. Dose reduction techniques were used. CONTRAST: None. FINDINGS: LOWER CHEST: Normal. HEPATOBILIARY: Few stable tiny hypodensities in the liver too small to characterize but benign and stable dating back to 02/20/2017 PANCREAS: Normal. SPLEEN: Normal. ADRENAL GLANDS: Stable low-attenuation nodule left adrenal gland compatible with adenoma. KIDNEYS/BLADDER: Linear 6 mm stone at the right UPJ with mild right-sided hydronephrosis. Multiple additional partially branched stones in the mid lower right kidney unchanged. Right perinephric soft tissue stranding. Benign cyst in the kidneys which do not warrant follow-up. BOWEL: Postsurgical changes in the sigmoid colon. LYMPH NODES: Normal. VASCULATURE: Normal. PELVIC ORGANS: Normal. 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 Mild lumbar degenerative change. Procedure Note Xander Beverly MD - 05/07/2025 EXAM: CT ABDOMEN PELVIS W/O CONTRAST LOCATION: [facility] DATE: 05/07/2025 INDICATION: Eval for right sided ureterolithiasis, other stones COMPARISON: 05/07/2025 TECHNIQUE: CT scan of the abdomen and pelvis was performed without IVcontrast. Multiplanar reformats were obtained. Dose reduction techniqueswere used. CONTRAST: None. FINDINGS: LOWER CHEST: Normal. HEPATOBILIARY: Few stable tiny hypodensities in the liver too small tocharacterize but benign and stable dating back to 02/20/2017 PANCREAS: Normal. SPLEEN: Normal. ADRENAL GLANDS: Stable low-attenuation nodule left adrenal glandcompatible with adenoma. KIDNEYS/BLADDER: Linear 6 mm stone at the right UPJ with mild right-sidedhydronephrosis. Multiple additional partially branched stones in the midlower right kidney unchanged. Right perinephric soft tissue stranding.Benign cyst in the kidneys which do not warrant follow-up. BOWEL: Postsurgical changes in the sigmoid colon. LYMPH NODES: Normal. VASCULATURE: Normal. PELVIC ORGANS: Normal. MUSCULOSKELETAL: Bilateral hip arthroplasties with streak artifact in thepelvis. Mild lumbar degenerative change. IMPRESSION: 1. Linear 6 mm stone at the right UPJ with mild right-sidedhydronephrosis. Multiple additional partially branched stones in the midand lower right kidney unchanged. Right perinephric soft tissuestranding. 2. Postsurgical changes in the sigmoid colon. 3. 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 Mark Abel MD IMG CT ORDERABLES Final Res ult * INR (05/07/2025 4:00 PM CDT) INR 1.08 0.85 - 1.15 05/07/2025 4:14 PM CDT [facility] PT 14.3 11.8 - 14.8 Seconds 05/07/2025 4:14 PM CDT [facility] Blood STRUCTURE OF LEFT UPPER LIMB / Unknown Venipuncture / Unknown 05/07/2025 4:00 PM CDT 05/07/2025 4:03 PM CDT Mark Abel MD LAB - BLOOD ORDERABLES Katy l Result [facility] LABORATORY [facility] [address] [place] [address], [facility] * US Imaging - HIM Scan (05/07/2025 12:00 AM CDT) Anatomical Region Laterality Modality Other 05/07/2025 us Provider Outside IMG US ORDERABLES Final Result * EKG Cardiac - HIM Scan (05/07/2025 12:00 AM CDT) 05/07/2025 us Provider Outside ECG ORDERABLES Final Result * TSH W/FREE T4 REFLEX (09/15/2009 12:25 PM CDT) Pathologist [facility] TSH 4.59 0.4 - 5.0 mU/L [facility] 09/15/2009 12:2 5 PM CDT 09/15/2009 12:30 PM CDT us Nader Garibay MD LABORATORY Final Resu lt [facility] [address] [place] [address] * (ABNORMAL) A.M.A. LIPID PANEL (09/15/2009 12:25 PM CDT) Cholesterol 197 0 - 200 mg/dL [facility] Comment: LDL Cholesterol is the primary guide to therapy: LDL-cholesterol goal in high risk patients is <100 mg/dL and in very high risk patients is <70 mg/dL. The NCEP recommends further evaluation of: patients with cholesterol <200 mg/dL if additional risk factors are present, cholesterol >240 mg/dL, triglycerides >150 mg/dL, or HDL <40 mg/dL. Triglycerides 150 0 - 150 mg/dL [facility] HDL Cholesterol 45(L) 50 - 110 mg/dL [facility] LDL Cholesterol Calculated 122 0 - 129 mg/dL [facility] VLDL-Cholesterol 30 0 - 30 mg/dL [facility] Cholesterol/HDL Ratio 4.4 0.0 - 5.0 [facility] 09/15/2009 12:2 5 PM CDT 09/15/2009 12:30 PM CDT Nader Garibay MD LABORATORY Final Resu lt Performing Organization Address City/[facility]/ZIP Co de Phone Number [facility] [address] [place] [id number] * DEXA, BONE DENSITY, AXIAL SKEL (06/27/2005) Anatomical Region Laterality Modality Other 06/27/2005 us Isaac Mason SPECIAL IMAGING STUDIES Fin al Result * URIC ACID (01/27/2004 2:41 PM BATTERBOARD SETTER) Uric Acid 5.6 2.5 - 7.5 mg/dL [facility] 01/27/2004 2:41 PM BATTERBOARD SETTER 01/27/2004 2:42 PM BATTERBOARD SETTER us Isaac Mason LABORATORY Final Resul t Performing Organization Address City/[facility]/ZIP Co de Phone Number [facility] [address] [place] [address] from Last 3 Months or Most Recently Relevant to Health Maintenance Insurance [facility] [employer] MEDICARE [facility] [employer] MEDICARE Advance Directives For more information, please contact: [phone] Documents on File Type Date Recorded Patient Liquor Merchant Expl anation Advance Directives and Livin g Will 06/15/2025 POLST 05-12-2025 * Full Code (Latest Code Status on File) Date Activated Date Inactivated Comments 06/06/2025 7:00 PM 06/10/2025 2:27 PM All basic an d advanced life-sustaining interventions are performed as appropriate Question Answer Comments Code status determined by: Discussion with patie nt/ legal decision maker * Full Code Date Activated Date Inactivated Comments 05/07/2025 3:12 PM 05/12/2025 12:55 PM All basic a nd advanced life-sustaining interventions are performed as appropriate Question Answer Comments Code status determined by: Discussion with patie nt/ legal decision maker Care Teams Critical Systems Technician Relationship Specialty Start Date End Date Diane Alejandra MD [address] [address] PCP - General Internal Medicine 10/17/17
--- OUTSIDE RECORDS SUMMARY | 2025-08-07 08:39 | XMS_ITS | Encounter Summary ---
Author Organization [facility] Address [address] [place] [address]. 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 Direct number given for nurse, if calls clinic, may schedule also. Leanne Pinon RN documented in this encounter Plan of Treatment Upcoming Encounters Date Type Department Care Team (Late st Contact Info) Description 08/11/2025 11:00 AM CDT Appointment [facility] Imaging [address] [facility] [address] [place] [phone] Ankur Devine MD [address] [place] [phone] 08/15/2025 9:30 AM CDT Virtual Visit [facility] [address] [facility] [address] [place] [phone] Herminia Rodríguez, READING EFFICIENCY COURSE DIRECTOR BOBBIN DUMPER [address] [facility] [address] [place] [address] documented as of this encounter Visit Diagnoses Not on filedocumented in this encounter Care Teams Tire Finisher Relationship Specialty Start Date End Date Diane Alejandra MD [facility] [address] [place] [address] PCP - General Internal Medicine 10/17/17 documented as of this encounter
--- OUTSIDE RECORDS SUMMARY | 2025-08-07 08:39 | XMS_ITS ---
Author Organization [facility] Address [address] [place] [address] Care Team Providers Care Mobile Home Set Up Person Name Role Phone Elsewhere, Pcp Primary Care Provider Unavailabl e Kidney Stripper [employer] Program Status:Enrolled (Active) Start date:12/25/2023 Enrollment date:01/22/2024 Enrollment reason:Referred by provider Current support & services provided:Stage 3b Case Team Name Relationship Phone Juan Carlos Finney R.N. Registered Nurse [phone] Continued Care and Services Coordination
--- OUTSIDE RECORDS SUMMARY | 2025-08-07 08:39 | XMS_ITS | Encounter Summary ---
Author Organization [facility] Address [address] [place] [address] Care Team Providers Care Media Director Name Role Phone Elsewhere, Pcp Primary Care Provider Unavailabl e Reason for Visit * Reason Comments Follow-up Orders Recent stone surgeri es Encounter Details Date Type Department Care Team (Latest Contact Info) Description 07/21/2025 Clinical Communication Division of Nephrology and Hypertension in [place], [place] [address] [place] [phone] Maddie Velásquez, RYANN, C.N.P., M.S. 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 [address] [place] [phone] 09/14/2025 11:40 AM CDT Appointment Department of Laboratory Medicine and Pathology, [facility] in [place], [place] [address] [place] [address] Maddie Velásquez APRN, C.N.P., M.S. [address] [place] [phone] 09/14/2025 1:30 PM CDT Education Division of Nephrology and Hypertension in [place], [place] [address] [place] [phone] Maddie Velásquez APRN, C.N.Humza., M.S. [address] [place] [phone] Merly Rader, Ph.D., M.P.H. [address] [place] [phone] 09/14/2025 2:30 PM CDT Office Visit Division of Nephrology and Hypertension in [place], [place] [address] [place] [phone] Maddie Velásquez APRN, C.N.P., M.S. [address] [place] [phone] documented as of this encounter Visit Diagnoses Not on filedocumented in this encounter Additional Health Concerns Assessment Noted Time PHQ-9 Depression Total Score: 15 021 12:16 PM CDT documented as of this encounter Care Teams Media Director Relationship Specialty Start Date End Date Elsewhere, Pcp PCP - General Internal Medicine 03/26/22 documented as of this encounter
--- OUTSIDE RECORDS SUMMARY | 2025-08-07 08:39 | XMS_ITS | Clinical Summary ---
Author Organization [facility] Address [address] [place] [address] Care Team Providers Care Take Up Supervisor Name Role Phone Elsewhere, Pcp Primary Care Provider Unavailabl e Source Comments Patient records contain information from all sites at [facility]. For routine questions regarding patient records, call [phone] during business hours, M-F 8:00 AM - 5:00 PM Central Time. Record requests for emergency care only can be directed to [phone] at any time.[facility] Allergies Active Allergy Reactions Criticality Noted Date [...] - protected Coenzyme B12)100 mcg Folate (as E-4-pmrhtwrsjltgwzd ofolate)400 mcg DFE Biotin1,200 mcg Calcium (as calcium ascorbate/carbonate )80 mg Magnesium (as magnesium oxide)40 mg Zinc (as zinc citrate/oxide)15 mg Selenium (as sodium selenite)150 mcg Copper (as copper citrate)1 mg (1,000 mcg) Manganese (as manganese citrate) 2.3 mg (2,300 mcg) Chromium (as chromium nicotinate)120 mcg Molybdenum (as molybdenum glycinate)75 mcg Coenzyme Q-10 (natural ubiquinone) 10 mg Vitamin K2 MK-7 (as menaquinone-7)40 mcg Simonton (as potassium borate) 100 mcg Vanadium (as [...] Encounters Date Type Department Care Team Description 07/21/2025 Clinical Communication Division of Nephrology and Hypertension in [place], [place] [address] [place] [address] Maddie Velásquez, RYANN, C.N.P., M.S. Follow-up Orders (Recent stone surgeries) from Last 3 Months Immunizations Immunization Administration Dates Next Due H1N1 All Forms 11/14/2009 HZV (ZOSTAVAX) 08/13/2012 HepB, Unspecified 01/15/2005,12/12/2004 Influenza TIV (IM) 08/16/2009, 6,09/08/2003,2001,11/24/2001 Influenza high dose QV(65 ye ars or older) (PF) 08/27/2022 Influenza, Seasonal, Injectable 08/13/20 12,09/16/2007,09/16/2007,2005,09/08/2003,09/27/2002 Influenza, Unspecified 08/17/2020,08/20/2013 PCV13 09/29/2015 PPD Test [...] Relation Name Comments Lung cancer Father edmayra rtmodestoch Stroke Mother chuckie romeo Ovarian cancer Sister 1 pat milan Kidney cancer Sister 2 allen cohen kidney rem sherice Ovarian cancer Sister 2 allen cohen Ovarian cancer Sister 3 alvarez h[place] Relation Name Status Comments Father josias rtesch Mother chuckie romeo Sister 1 pat makamond Sister 2 allen cohen Sister 3 alvarez [...] AM CDT 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 [address] [place] [phone] 09/14/2025 11:40 AM CDT Appointment Department of Laboratory Medicine and Pathology, [place], [place] [address] [place] [phone] Maddie Velásquez APRN, C.N.P., M.S. [address] [place] [phone] 09/14/2025 1:30 PM CDT Education Division of Nephrology and Hypertension in [place], [place] [address] [place] [phone] Maddie Velásquez APRN, C.N.P., M.S. [address] [place] [phone] Merly Rader, Ph.D., M.P.H. [address] [place] [phone] 09/14/2025 2:30 PM CDT Office Visit Division of Nephrology and Hypertension in [place], [place] [address] [place] [phone] Maddie Velásquez APRN, C.N.P., M.S. [address] [place] [phone] Health Maintenance Due Date Last Done Comments Hepatitis B Vaccines (3 of 3 - 19+ 3-dose series) 06/11/2005 01/15/2005, 12/12/2004 RSV vaccine - (32-36 weeks) or 60+ years (1 - 1-dose 75+ series) 2012 Depression Screening (Annual PHQ-2) 11/17/2024 Fall Risk Screen (Annual) 11/17/2024 COVID-19 Vaccine ( season) 2025 09/03/2024, 09/12/2021, 02/17/2021, Additional history exists Influenza Vaccine (#1) 2025 , 07/16/2023, 08/27/2022, Additional history exists Creatinine Level (Kidney Function Test) 06/13/2026 06/13/2025, 06/10/2025, 06/09/2025, Additional history exists Potassium Level 06/13/2026 06/13/2025, 05/18, 06/09/2025, Additional history exists Sodium Level 06/13/2026 06/13/2025, 05/18, 06/09/2025, Additional history exists DTaP,Tdap,and Td Vaccines (2 - Td or Tdap) 11/19/2026 11/19/2016, 08/10/2010, 01/24/2000 Pneumococcal vaccine (50+ years) Completed 09/29/2015, 08/10/2010, 09/05/1994 Zoster Vaccines Completed 10/29/2018, 02/2018, 08/13/2012 IPV Vaccines Aged Out No longer eligi ble based on patient's age to complete this topic Medical Devices Implanted Type Area Hotel Or Motel Receptionist Device Identifier Shelf Expiration Date Model / [...] Procedure Name Priority Date/Time Associated Diagnosis Comments OUTSIDE CT BODY Routine 05/07/2025 8:55 AM CDT OUTSIDE US BODY Routine 05/07/2025 7:50 AM CDT RENAL FUNCTION PANEL, S Routine 03/09/2025 11:47 AM CDT Chronic Kidney Disease Stage 4 Glomerular Filtration Rate 15-29 (HCC) from Last 3 Months or Most Recently Relevant to Health Maintenance Results * CT ABDOMEN PELVIS WO CON-Outside CT Body (05/07/2025 8:55 AM CDT) 05/07/2025 8:53 AM CDT Narrative [facility] - 05/07/2025 10:39 AM CDT This order has been created and auto-finalized to support the import of outside images. If available, original interpretation can be found on the Media Tab in Chart Review, in Document Viewer, as an image in InfinityView or as an Addendum. If a re-interpretation or overread is required please follow defined workflow. us Provider Not In System IMG CT PROCEDURES Final R esult Performing Organization Address [facility] de Phone Number [facility] NA * US abdomen limited-Outside US Body (05/07/2025 7:50 AM CDT) 05/07/2025 7:46 AM CDT Narrative [facility] - 05/07/2025 10:39 AM CDT This order has been created and auto-finalized to support the import of outside images. If available, original interpretation can be found on the Media Tab in Chart Review, in Document Viewer, as an image in InfinityView or as an Addendum. If a re-interpretation or overread is required please follow defined workflow. us Provider Not In System IMG US PROCEDURES Final R esult Performing Organization Address [facility] de Phone Number [facility] NA from Last 3 Months Insurance MEDICARE [facility] Care Teams Take Up Supervisor Relationship Specialty Start Date End Date Elsewhere, Pcp PCP - General Internal Medicine 03/26/22
--- OUTSIDE RECORDS SUMMARY | 2025-08-07 08:39 | XMS_ITS | Encounter Summary ---
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 Gender Identity Not on file Sexual Orientation Not on file documented as of this encounter Plan of Treatment Upcoming Encounters Date Type Department Care Team (Late st Contact Info) Description 08/11/2025 11:00 AM CDT Appointment [facility] [address] [facility] [address] [place] [phone] Ankur Devine MD [address] [place] [id number] 08/15/2025 9:30 AM CDT Virtual Visit [facility] [address] [facility] [address] [place] [phone] Herminia Rodríguez, REFRIGERATED CARGO CLERK COMMUNICATIONS CONTROLLER [address] [facility] [address] [place] [address] documented as of this encounter Visit Diagnoses Not on filedocumented in this encounter Care Teams Survey Superintendent Relationship Specialty Start Date End Date Nader Garibay MD PCP - General 01/01/02 10/16/[address] [facility] & [address] [address] PCP - General Internal Medicine 10/17/17 documented as of this encounter
--- OUTSIDE RECORDS SUMMARY | 2025-08-07 08:39 | XMS_ITS | Encounter Summary ---
Author Organization [place] Address [address] [place] [address] Care Team Providers Care Wastewater Plant Operator Name Role Phone Nader Garibay MD Primary Care Provider +1- [phone] Diane Alejandra MD Primary Care Provider Encounter Details Date Type Department Care Team (Late st Contact Info) Description 09/29/[address] [phone] Ceferino Ortiz MD NO INFO AVAILABLE Social History Tobacco Use Types Packs/Day Years Used Date Smoking Tobacco: Never Smokeless Tobacco: Never Alcohol Use Standard Drinks/Week Comments Yes 0 (1 standard drink = 0.6 oz pur e alcohol) 2drinks a month Comments No Sex and Gender Information Value Date Recorded Sex Assigned at Not on file 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 The inés haines called on 05/31/02 and stated that she would be leaving [facility] and asked if it would be okay to inés roquee her surgery until September. We recommended that she not do this, but the patient left and ca lled us upon her return to [facility]. She is now being admitted to [...] ORTIZ MD T: 09/2002 17:25 MT: Document: [id number] [place], [place] Name: PrinceVIELKA PEMBERTON HISTORY AND PHYSICAL Page 2 of 2 LCN: SDS DSC: 09/29/2002 [place], [place] Name: MR#: : Admit Date: STEPHIE VIELKA [id number] -[id number] Doctor: CEFERINO ORTIZ MD HISTORY AND PHYSICAL Page 1 of 2 Electronically filed by Tiffanie Del Castillo 10/01/2002 2:51 PM 00:00 Operative Report-[facility] CEFERINO ORTIZ () [Entered: 00:[address] Driver ([facility])] : 39 1st ASS'T: 2nd ASS'T: PRE-OPERATIV E DIAGNOSIS: Postmenopausal vaginal bleeding. POST-OPERATIVE DIAGNOSIS: Postmenopausal vaginal ble eding. OPERATION: Fractional dilation and curettage; diagnostic hysteroscopy. ANESTHESIA: General . PROCEDURE: Vielka Snyder was taken to the operating room with an I.V. running in the [facility]. She was placed on the operating table [...] home. [id number] CEFERINO ORTIZ MD MT: Document: [id number] [place], [place] Name: ANASTASIA SNYDERENE Jocelyn OPERATIVE REPORT Page 2 of 2 LCN : MS2 DSC: 09/30/2002 [place], [place] Name: MR#: : Procedure Vitor e: VIELKA SNYDER [id number] 09/29/2002 Doctor: CEFERINO ORTIZ MD OPERATIVE REPO RT Page 1 of 2 Electronically filed by Cali Felipe 10/05/2002 2:15 PM documented in this encounter Plan of Treatment Upcoming Encounters Date Type Department Care Team (Late st Contact Info) Description 08/11/2025 11:00 AM CDT Appointment [facility] Imaging [address] [facility] [address] [place] [address] Ankur Devine MD [address] [place] [address] 08/15/2025 9:30 AM CDT Virtual Visit [facility] [address] [facility] [address] [place] [address] Herminia Ortiz, WELDER OPERATOR [facility] [address] [facility], [facility] [address] [place] [address] documented as of this encounter Visit Diagnoses Not on filedocumented in this encounter Care Teams Wastewater Plant Operator Relationship Specialty Start Date End Date Nader Garibay MD PCP - General 01/01/02 10/16/17 Diane Alejandra MD [facility] & [place] [id number] PCP - General Internal Medicine 10/17/17 documented as of this encounter
--- OUTSIDE RECORDS SUMMARY | 2025-08-07 08:39 | XMS_ITS | Encounter Summary ---
Author Organization [place] Address [address] [place] [address] Care Team Providers Care Pipe Stripper Name Role Phone Diane Alejandra MD Primary Care Provider Encounter Details Date Type Department Care Team (Late st Contact Info) Description 11/22/2019 Orders Only [facility] [address] [place] [phone] Tomas Eckert MD [facility] [address] [place] [phone] Pre-operative laboratory examination (Primary Dx) Social History Tobacco Use Types Packs/Day Years Used Date Smoking Tobacco: Never Alcohol Use Standard Drinks/Week Comments Yes 0 (1 standard drink = 0.6 oz pur e alcohol) SELDOM Comments No Sex and Gender Information Value Date Recorded Sex Assigned at Not on file 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 [address] [facility] [address] [place] [address] Herminia Rodríguez, [employer] [facility] [address] [facility], [facility] [address] [place] [address] documented as of this encounter Results * Methicillin Resist/Sens S. aureus PCR (11/22/2019 9:00 AM SORTING MACHINE ATTENDANT) Specimen Description Nares 11/22/2019 3:59 PM SORTING MACHINE ATTENDANT [facility] Methicillin Resist/Sens S. aureus PCR Negative NEG^Negat lilia 11/22/2019 11:25 PM SORTING MACHINE ATTENDANT [facility] Comment: MRSA Negative: SA Negative MRSA and Staphylococcus aureus target DNA not detected, presumed negative for MRSA and SA colonization or the number of bacteria present may be below the limit of detection for the assay. FDA approved assay performed using [employer] GeneXpert(R) real-time PCR. Nasal structure (body structure) 11/22/2019 9:00 AM SORTING MACHINE ATTENDANT 11/22/2019 4:01 PM SORTING MACHINE ATTENDANT Tomas Eckert MD LAB - MICRO GENERAL ORDERABLES Final Result [facility] [address] [place], [place] [phone] [place] [address] [place], [place] [phone] [place] [address] documented in this encounter Visit Diagnoses Diagnosis Pre-operative laboratory examination- Primary Pre-procedural laboratory examination documented in this encounter Care Teams Pipe Stripper Relationship Specialty Start Date End Date Diane Alejandra MD [facility] [address] [place] [address] PCP - General Internal Medicine 10/17/17 documented as of this encounter
--- NOTE | 2025-08-07 08:42 | ED.GENADULT ---
HPI - General Adult General Date Seen: 08/07/25 Chief complaint: Cough Stated complaint: cough, sore throat, hoarse Time Seen by Provider: 08/07/25 08:42 History of Present Illness HPI narrative: 89-year-old female with a history GERD, hypertension, hyperlipidemia, hypothyroidism, elevated BMI, restless leg syndrome, gout, right footdrop right-sided kidney stone associated with UTI in April 2025 (diagnosed in ER here, transferred to [facility] in the [facility] for admission and urology consult. Got better and then had to go to a custodial to rehab until May. Has been living at home with her since then but is fairly frail. She has really left the house much since she got home from May. She has visiting home nurses, visiting PT and OT.). Per review of medical record, She did have a trip and fall at home on July 27 this month and required EMS for lift assist but did not come to the hospital. She notes that she became sick about 4 days ago on with symptoms of ready does go sore through COVID productive cough. She has also had subjective fevers and chills, body aches, weakness. She has had poor appetite but has been able to eat some Ensure. She did drink a cup of coffee this morning. She is not really having chest pain or shortness of breath. She has was beds been trying to wait for her symptoms to get better but she has had for 4 days and they are just not getting better, if anything she is feeling worse today than yesterday. She is tired of being sick so knew she had to come to the ER to get checked out. Although she has been eating and drinking less she still making urine. He is not having any chest pain. She does not have any history of pneumonia or other lung disease such as asthma. Nonsmoker. She does not know of any sick contacts and suspects that 1 of her caregivers probably brought a cold to her. However her then notes that he has had some drainage from his nose recently. Related Data Home Medications ?Medication ?Instructions ?Recorded ?Confirmed allopurinol 100 mg tablet 50 mg PO DAILY 10/07/22 04/27/25 dapagliflozin propanediol 10 mg 10 mg PO QDAY 10/07/22 04/27/25 tablet (Farxiga) zinc sulfate 50 mg zinc (220 mg) 50 mg PO DAILY 10/07/22 04/27/25 capsule lisinopril 20 mg tablet 20 mg PO DAILY 07/24/23 04/27/25 multivitamin (Daily Multi-Vitamin 1 tab PO DAILY 07/24/23 04/27/25 tablet) acetaminophen 650 mg 1,300 mg PO TID PRN 09/29/23 04/27/25 tablet,extended release torsemide 10 mg tablet 10 mg PO DAILY 09/29/23 04/27/25 lactobacillus combination no.9 4 4,000 mmu cells PO QDAY 10/21/24 04/27/25 billion cell capsule (Adult 50 Plus Probiotic) cyanocobalamin (vitamin B-12) PO DAILY 11/20/24 04/27/25 vit C 250 mg-vit E 90 mg-zinc 40 1 tab PO BID 11/25/24 04/27/25 mg-copper 1 [id number] capsule (PreserVision AREDS-2) Previous Rx's ?Medication ?Instructions ?Recorded bupropion HCl 300 mg 24 hr tablet, 300 mg PO QDAY #90 tabs 10/21/24 extended release levothyroxine 25 mcg tablet 25 mcg PO QDAY #90 tabs 10/21/24 omeprazole 20 mg capsule,delayed 20 mg PO QDAY #90 caps 12/07/24 release simvastatin 20 mg tablet 20 mg PO Q48H #45 tabs 12/30/24 nystatin 100,000 unit/gram topical 1 applic topical QID PRN rash #60 03/15/25 powder grams amoxicillin 500 mg capsule 1,000 mg (2 x 500 mg) PO TID #15 08/07/25 caps azithromycin 250 mg tablet See Rx Instructions PO .COMPLEX #6 08/07/25 tabs benzonatate 100 mg capsule 100 mg PO TID PRN cough #10 caps 08/07/25 Allergies Allergy/AdvReac Type Severity Reaction Status Date / Time clavulanic acid Allergy Verified 08/07/25 08:53 tazobactam Allergy Verified 08/07/25 08:53 Tetracyclines Allergy Verified 08/07/25 08:53 ibuprofen AdvReac spacing Verified 08/07/25 08:53 out with large doses [facility] Medical History History of deep vein thrombosis (DVT) of lower extremity ?Z86.718 - Personal history of other venous thrombosis and embolism (ICD-10) History of renal stone ?Z87.442 - Personal history of urinary calculi (ICD-10) Surgical History 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) ?G57.31 - Lesion of lateral popliteal nerve, right lower limb (ICD-10) History of cataract surgery ?Z98.49 - Cataract extraction status, unspecified eye (ICD-10) History of total knee replacement (2005) ?Z96.659 - Presence of unspecified artificial knee joint (ICD-10) 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 He is primary healthcare power of traffic law attorney. Her son Dimas would be 2nd dairy power of traffic law attorney. Code status is resuscitation for witnessed arrest only. nonsmoker. Drinks 2 glasses of wine a week. uses a lift recliner and walker in her home. What is your current living situation?: I presently have a place to live Problems where you live: no known problems Problems where you live details: Two steps from garage into house In the past 12 months, utilities in danger of being shut off: no In past 12 months, lack of transportation kept you from medical appts, meetings, work, or getting things needed for daily living: no In the past 12 mos, have been you worried that your food would run out before you had money to buy more?: never true In the past 12 mos, the food you bought just didn't last and you didn't have money to buy more?: never true Highest level of school completed/degree received: some college, no degree Smoking Status: Never smoker Do you use any of these nicotine containing products: None Second hand tobacco smoke exposure: No How often do you have a drink containing alcohol: 2-3 times a week Alcohol type: wine How often do you have six or more drinks on one occasion: Never AUDIT-C Alcohol total score: 3 Non-prescribed substance use: denies use Caffeine: Yes (Half caffinated coffee) How often does anyone, including family, friends and others, physically hurt you: never How often does anyone, including family, friends and others, insult or talk down to you: never How often does anyone, including family, friends and others, threaten you with harm: never How often does anyone, including family, friends and others, scream or curse at you: never service: No Exam Narrative: Exam Narrative: Constitutional: Appears well-developed and well-nourished. Alert. Frequent wet sounding but nonproductive cough. Conversant. Non toxic. HENT: Head: Atraumatic. Nose: Nose normal. Mouth/Throat: Oral mucosa is clear and moist. no trismus. Pharynx normal. Tonsils surgically absent. No tonsillar enlargement, erythema, or exudate. TMs normal bilaterally. Eyes: Conjunctivae normal. EOM normal. Pupils equal, round, and reactive to light. No scleral icterus. Neck: Normal range of motion. Neck supple. No tracheal deviation present. Cardiovascular: Normal rate, regular rhythm. No gallop. No friction rub. No murmur heard. Symmetric radial artery pulses Pulmonary/Chest: Effort normal. No stridor. No respiratory distress. Frequent cough. No wheezes. No rales. No rhonchi . No tenderness. Abdominal: Soft.No distension. No mass. No tenderness. No rebound. No guarding. Musculoskeletal: RUE: Normal range of motion. No tenderness. No deformity LUE: Normal range of motion. No tenderness. No deformity RLE: Normal range of motion. No edema. No tenderness. No deformity LLE: Normal range of motion. No edema. No tenderness. No deformity Lymph: No cervical adenopathy. Neurological: Alert and oriented to person, place, and time. Normal strength. CN II-VII intact. No sensory deficit. GCS eye subscore is 4. GCS verbal subscore is 5. GCS motor subscore is 6. Normal coordination Skin: Skin is warm and dry. No rash noted. No pallor. Normal capillary refill. Psychiatric: Normal mood. Normal affect. Const: Vital Signs, click to edit/add: Vital Signs - 24 hr 08/07/25 08:50 08/07/25 09:48 08/07/25 10:00 Temperature 99.6 F Pulse Rate 79 76 Pulse Rate [Right Pulse Oximeter] 84 Respiratory Rate 20 Blood Pressure Blood Pressure [Ri ght Forearm] 155/73 H Pulse Oximetry 96 94 95 Oxygen Delivery Me thod Room Air Room Air 08/07/25 10:15 08/07/25 10:30 08/07/25 10:45 Temperature Pulse Rate 73 75 73 Pulse Rate [Right Pulse Oximeter] Respiratory Rate Blood Pressure Blood Pressure [Ri ght Forearm] Pulse Oximetry 90 93 Oxygen Delivery Me thod 08/07/25 11:00 08/07/25 11:01 Temperature Pulse Rate 73 75 Pulse Rate [Right Pulse Oximeter] Respiratory Rate 18 Blood Pressure 119/81 Blood Pressure [Ri ght Forearm] Pulse Oximetry 96 Oxygen Delivery Me thod Room Air Course Course ED Course: Recheck-back from x-ray. Still coughing but somewhat improved. Patient fell asleep and did desat down to about 89-90% on room air. Once awakened sats rapidly came back up to 96. She reports that she has sleep apnea but does not use her CPAP the stays. She sleeps sitting up in a lift chair and does not have a power output closely to lift chair for her to plug in her CPAP. Suspect she is desatting due to her chronic sleep apnea with the superimposed infection. Chest x-ray negative for any acute pneumonia. Triple swab is negative for COVID/RSV/influenza. Labs show a mild leukocytosis having is probably related to immune reaction from her current cough/URI. On repeat lung exam I do think she slightly wheezy. DuoNeb ordered and patient notes she feels better. Lung sounds unchanged but cough is less frequent Vital Signs Vital signs: Initial Vital Signs Temperature 99.6 F 08/07/25 08:50 Temperature Source Temporal Artery Scan 08/07/25 08:50 Pulse Rate 84 08/07/25 08:50 Pulse Rhythm Regular 08/07/25 08:50 Pulse Strength 3+ Normal 08/07/25 08:50 Respiratory Rate 20 08/07/25 08:50 Blood Pressure 155/73 H 08/07/25 08:50 Blood Pressure Mean 100 08/07/25 08:50 Blood Pressure Position Sitting 08/07/25 08:50 Pulse Oximetry 96 08/07/25 08:50 Oxygen Delivery Method Room Air 08/07/25 08:50 Vital Signs Temperature 99.6 F 08/07/25 08:50 Pulse Rate 84 08/07/25 08:50 Respiratory Rate 20 08/07/25 08:50 Blood Pressure 155/73 H 08/07/25 08:50 Pulse Oximetry 96 08/07/25 08:50 Oxygen Delivery Method Room Air 08/07/25 08:50 Temperature 99.6 F 08/07/25 08:50 Pulse Rate 75 08/07/25 11:01 Respiratory Rate 18 08/07/25 11:01 Blood Pressure 119/81 08/07/25 11:01 Pulse Oximetry 96 08/07/25 11:01 Oxygen Delivery Method Room Air 08/07/25 11:01 Medications Administered Medications: Discontinued Medications Generic Name Dose Route Start Last Admin Trade Name Tinq PRN Reason Stop Dose Admin Acetaminophen 1,000 mg 08/07/25 09:04 08/07/25 09:41 Acetaminophen 500 Mg Tablet PO 08/07/25 09:05 1,000 mg ONCE ONE Administration Albuterol/Ipratropium 1 neb 08/07/25 10:26 08/07/25 10:40 Iprat-Albut 0.5-2.5 Mg/3 Ml Neb IH 08/07/25 10:27 1 neb ONCE ONE Administration Benzonatate 100 mg 08/07/25 09:05 08/07/25 09:40 Benzonatate 100 Mg Capsule PO 08/07/25 09:06 100 mg ONCE ONE Administration Sodium Chloride 1,000 mls @ 1,000 mls/hr 08/07/25 09:15 08/07/25 10:30 0.9 % Sodium Chloride 1000 Ml IV 08/07/25 10:14 1,000 mls/hr .Q1H ALEX Administration Medical Decision Making MDM Narrative Medical decision making narrative: This patient presents for evaluation of cough, fever and chills, generalized weakness, sore throat. This is consistent with an upper respiratory tract infection. Viral testing negative for influenza/RSV/coronavirus. She does not have any significant signs of pharyngitis and she has surgically absent tonsils so I doubt strep.. There is no signs at this point of serious bacterial infection such as OM, RPA, epiglottitis, BULLDOZER/LOADER/COMPACTOR/SCRAPER, strep pharyngitis, meningitis, bacteremia, serious bacterial infection. Given age and comorbidities we did obtain chest x-ray which is negative for any focal infiltrates to suggest pneumonia. She does have some nasal drainage in possibly sinus infections as well. There are no gastrointestinal symptoms at this point and no signs of dehydration. Laboratory workup is reassuring. At this point discussed with the patient that infection is likely viral. She does not meet criteria for sepsis, severe sepsis, septic shock at this point. However would be impossible to completely exclude a bacterial infection here. The patient strongly wants antibiotics and says that she has had viruses in the past that did not get better until she was put on antibiotics. She really wants to get on antibiotics today because she wants to get better soon as possible so she does not spread her germs to her son (who lives with them and as on chemotherapy for cancer). We agreed to try her on antibiotics. Given her allergies will put her on a combination of amoxicillin (not clavulanic acid) and Azithromycin which would cover for community-acquired pneumonia. Close followup with primary care physician is indicated. Return to ED for fever > 101, shortness of breath, chest pain, protracted vomiting, confusion, or other worsening. Lab Data Labs: Lab Results 08/07/25 08/07/25 Range/Units 09:20 09:21 WBC 12.66 H (4.50-11.00) K/uL RBC 3.94 L (4.00-5.20) m/uL Hgb 11.6 L (12.0-16.0) gm/dL Hct 36.9 (33.0-51.0) % MCV 94 (80-100) fL MCH 29 (26-34) pg MCHC 31 L (32-36) gm/dL RDW Coeff of Baylee 13.6 (11.5-15.5) % Plt Count 192 (140-440) K/uL Neut % (Auto) 83.2 H (42.0-72.0) % Lymph % (Auto) 7.3 L (20-44) % Craven % (Auto) 7.8 (0.0-11.0) % Eos % (Auto) 0.7 (0.0-7.0) % Baso % (Auto) 0.1 (0.0-3.0) % Neut # (Auto) 10.50 H (1.7-7.0) K/uL Lymph # (Auto) 0.90 (0.90-2.90) K/uL Craven # (Auto) 1.00 H (0.00-0.90) K/UL Eos # (Auto) 0.10 (0.00-0.50) K/uL Baso # (Auto) 0.00 (0.00-0.30) K/uL Abs Immat Gran (auto) 0.10 (0.00-0.30) K/uL Imm/Tot Granulo (auto) 0.9 % Sodium 134 L (135-149) mmol/L Potassium 4.5 (3.6-5.1) mmol/L Chloride 98 (96-114) mmol/L Carbon Dioxide 32 (20-32) mmol/L Anion Gap 4 L (7-15) mEq/L BUN 25 (7-30) mg/dL Creatinine 1.4 (0.5-1.5) mg/dL Estimated GFR 36 ml/min Glucose 122 H (60-115) mg/dL Lactate 0.9 (0.5-1.9) mmol/L Calcium 9.2 (8.4-10.6) mg/dL SARS-CoV-2 (PCR) Negative SARS-CoV-2 (Negative) Influenza Type A (PCR) Negative PCR FLU A (Negative) Influenza Type B (PCR) Negative PCR FLU B (Negative) RSV (PCR) Negative PCR RSV (Negative) Imaging Data Chest x-ray: Attestation: I have reviewed the pertinent imaging results. My impression: No acute infiltrates Radiologist's impression: IMPRESSION: Likely infectious or inflammatory airways disease. No focal pneumonia. Discharge Plan Discharge Clinical Impression: URI (upper respiratory infection), Acute dehydration Patient Disposition: Home, Self-Care Instructions: Upper Respiratory Infection (DC) Additional Instructions: As we discussed, please come back to the ER right away if you have worsening cough, new chest pain, shortness of breath, weakness, or if you have any other concerns Prescriptions: New benzonatate 100 mg capsule 100 mg PO TID PRN (Reason: cough) Qty: 10 0RF amoxicillin 500 mg capsule 1,000 mg PO TID Qty: 15 0RF azithromycin 250 mg tablet See Rx Instructions .ROUTE .COMPLEX Qty: 6 0RF Rx Instructions: For 250 mg dose pack: take 500 mg today (day 1), then 250 mg for 4 days (days 2-5) No Action PreserVision AREDS-2 250-90-40-1 mg capsule 1 tab PO BID zinc sulfate 50 mg zinc (220 mg) capsule 50 mg PO DAILY acetaminophen 650 mg tablet extended release 1,300 mg PO TID PRN Adult 50 Plus Probiotic 4 billion cell capsule 4,000 mmu cells PO QDAY Rx Instructions: administer with a meal levothyroxine 25 mcg tablet 25 mcg PO QDAY Qty: 90 3RF bupropion HCl 300 mg tablet extended release 24 hr 300 mg PO QDAY Qty: 90 3RF allopurinol 100 mg tablet 50 mg PO DAILY Farxiga 10 mg tablet 10 mg PO QDAY cyanocobalamin (vitamin B-12) PO DAILY lisinopril 20 mg tablet 20 mg PO DAILY multivitamin [Daily Multi-Vitamin] Tablet 1 tab PO DAILY Patient Comments: [employer] 1 (FROM [employer]) torsemide 10 mg tablet 10 mg PO DAILY Patient Comments: 10 MG DAILY PLUS ADDITIONAL DOSE IF GAIN 3 LBS OVERNIGHT OR 5 LBS OVER A WEEK Rx Instructions: Take 2 tabs PRN omeprazole 20 mg capsule,delayed release(DR/EC) 20 mg PO QDAY Qty: 90 3RF simvastatin 20 mg tablet 20 mg PO Q48H Qty: 45 3RF nystatin 100,000 unit/gram powder 1 applic topical QID PRN (Reason: rash) Qty: 60 5RF Rx Instructions: USES NEEDED FOR FLARES OF SKIN FOLD DERMATITIS Follow Up/Referrals: Diane Alejandra MD [Primary Care Provider, Internal Medicine] Stand Alone Forms: [facility] Info Instructions
--- NOTE | 2025-08-07 09:05 | CRLHL7_ITS ---
For Patients: As a result of the Cures Act, medical imaging exams and procedure reports are released immediately into your electronic medical record. You may view this report before your referring provider. If you have questions, please contact your health care provider. INDICATION: Fever, cough, short of breath COMPARISON: 11/20/2024 TECHNIQUE: PA and lateral 2 view chest. FINDINGS: Lung volumes are normal. Mild diffuse interstitial opacities and central peribronchial thickening. No consolidation. No pulmonary edema. No pleural effusion. No pneumothorax. No pneumomediastinum. Normal cardiomediastinal silhouette. Atherosclerosis. Bones: Thoracic dish. Degenerative change. No acute appearing bone findings. IMPRESSION: Likely infectious or inflammatory airways disease. No focal pneumonia. Dictated by Tonia Dong MD @ 08/07/2025 9:50:17 AM (Electronically Signed)
[2025-08-07 09:28] LABS: Lactate* 0.9 mmol/L (0.5-1.9)
[2025-08-07 09:32] LABS: Hematocrit* 36.9 % (33.0-51.0); Hemoglobin* 11.6 gm/dL (12.0-16.0); Immature Granulocytes Pct Auto 0.9 %; Mean Corpuscular HGB Conc 31 gm/dL (32-36); Mean Corpuscular Hemoglobin 29 pg (26-34); Mean Corpuscular Volume 94 fL (80-100); RDW Coefficient of Variation % 13.6 % (11.5-15.5); Red Blood Count* 3.94 m/uL (4.00-5.20); White Blood Count* 12.66 K/uL (4.50-11.00)
[2025-08-07 09:33] LABS: Immature Granulocytes Abs Auto 0.10 K/uL (0.00-0.30); Lymphocytes Absolute Auto 0.90 K/uL (0.90-2.90); Slide Review Reflex No
[2025-08-07] MEDS: BENZONATATE 100 MG CAPSULE PO (09:40)
[2025-08-07] MEDS: ACETAMINOPHEN 500 MG TABLET 1000 MG PO (09:41)
[2025-08-07 09:50] LABS: Chloride* 98 mmol/L (96-114); Potassium* 4.5 mmol/L (3.6-5.1); Sodium* 134 mmol/L (135-149)
[2025-08-07 09:53] LABS: Blood Urea Nitrogen* 25 mg/dL (7-30); Creatinine* 1.4 mg/dL (0.5-1.5); Estimated Glomerular Filt Rate 36 ml/min
[2025-08-07 09:54] LABS: Anion Gap 4 mEq/L (7-15); Calcium* 9.2 mg/dL (8.4-10.6); Carbon Dioxide* 32 mmol/L (20-32); Glucose* 122 mg/dL (60-115)
[2025-08-07 10:09] LABS: PCR FLU A Negative PCR FLU A (Negative); PCR FLU B Negative PCR FLU B (Negative); PCR RSV Negative PCR RSV (Negative); SARS PCR* Negative SARS-CoV-2 (Negative)
[2025-08-07] MEDS: IPRAT-ALBUT 0.5-2.5 MG/3 ML NEB 1 NEB IH (10:40)
== END 2025-08-07 11:36 | disposition home or self-care (01) ==
PROVIDERS: Emergency Provider Emergency Medicine; PCP Internal Medicine
DX: J06.9 Acute upper respiratory infection, unspecified (principal); E86.0 Dehydration
CPT/HCPCS: 36415; 71046; 80048; 83605; 85025; 87631; 99283; A9270; J7030

== ENCOUNTER 2025-09-14 10:00 | Outpatient (CLI) | payer MEDICARE, BC, SELFPAY ==
[2025-09-14 11:05] LABS: Hematocrit* 40.8 % (33.0-51.0); Hemoglobin* 12.9 gm/dL (12.0-16.0); Immature Granulocytes Abs Auto 0.01 K/uL (0.00-0.30); Immature Granulocytes Pct Auto 0.2 %; Mean Corpuscular HGB Conc 32 gm/dL (32-36); Mean Corpuscular Hemoglobin 30 pg (26-34); Mean Corpuscular Volume 94 fL (80-100); RDW Coefficient of Variation % 13.4 % (11.5-15.5); Red Blood Count* 4.34 m/uL (4.00-5.20); White Blood Count* 6.21 K/uL (4.50-11.00)
[2025-09-14 11:06] LABS: Chloride* 101 mmol/L (96-114); Sodium* 139 mmol/L (135-149)
[2025-09-14 11:07] LABS: Albumin* 4.2 g/dL (3.3-5.0); Potassium* 4.7 mmol/L (3.6-5.1)
[2025-09-14 11:09] LABS: Blood Urea Nitrogen* 31 mg/dL (7-30); Creatinine* 1.5 mg/dL (0.5-1.5); Estimated Glomerular Filt Rate 34 ml/min; Lymphocytes Absolute Auto 1.20 K/uL (0.90-2.90); Slide Review Reflex No
[2025-09-14 11:09] LABS: Appearance Urine Clear (Clear)
[2025-09-14 11:10] LABS: Calcium* 10.1 mg/dL (8.4-10.6); Glucose* 96 mg/dL (60-115)
[2025-09-14 11:22] LABS: PTH Intact* 94.7 pg/mL (14.2-75.2)
[2025-09-14 11:35] LABS: Anion Gap 8 mEq/L (7-15); Carbon Dioxide* 30 mmol/L (20-32)
== END 2025-09-14 10:01 | disposition home or self-care (01) ==
LOC: NPINS 10:02
PROVIDERS: PCP Internal Medicine; Visit Provider Nurse Practitioner
DX: N18.32 Chronic kidney disease, stage 3b (principal)
CPT/HCPCS: 80069; 81001; 82043; 82570; 83970; 84550; 85025

== ENCOUNTER 2025-10-14 12:01 | Emergency (ER) | payer MEDICARE, BC, SELFPAY ==
--- OUTSIDE RECORDS SUMMARY | 2025-08-29 08:30 | XMS_ITS | Encounter Summary ---
Author Organization [facility] Address [address] [place] [address] Care Team Providers Care Cancer Spec Name Role Phone Diane Alejandra MD Primary Care Provider [phone] Reason for Referral * Diagnostic Imaging Ultrasound (Routine) - Pending Review Specialty Diagnoses / Procedures Referred By Bettye martinez Referred To Contact Radiology. Diagnoses Nephrolithiasis Procedures US Renal Complete Non-Vascular Ankur Devine MD [address] [place] [address] Phone: tel: fax: Referral ID Status Reason Start Date Expiration Date V isits Requested Visits Authorized [id number] Pending Review 06/10/2025 06/10/2026 1 1 Reason for Visit * Diagnostic Imaging Ultrasound (Routine) - Pending Review Specialty Diagnoses / Procedures Referred By Bettye martinez Referred To Contact Radiology. Diagnoses Nephrolithiasis Procedures [place]al [place] [address] [place] [address] Phone: tel: fax: Referral ID Status Reason Start Date Expiration Date V isits Requested Visits Authorized [id number] Pending Review 06/10/2025 06/10/2026 1 1 Encounter Details Date Type Department Care Team (Latest Contact Info) Description 08/29/2025 9:30 AM CDT - 08/29/2025 11:59 PM CDT Hospital Encounter [facility] [address] [place] [address] Ankur Devine MD [address] [place] [address] Nephrolithiasis Discharge Disposition: Home or Self Care Social History Tobacco Use Types Packs/Day Years [...] in an abandoned building, in an overnight nursing home, or couch-surfing.) Yes 06/07/2025 Are you worried [...] on file Legal Sex Female 3:31 AM [employer] Gender Identity Not on file Sexual Orientation Not on file Occupation Industry Job Start Date Job End Date Not on file Not on file Not on file Not on file documented as of this encounter Medications at Time of Discharge acetaminophen (TYLENOL) 650 MG CR tablet Take 650-1,300 mg by mouth every 8 hours as needed for mild pain or fever Acidophilus Lactobacillus CAPS Take 2 capsules by mouth daily. allopurinol (ZYLOPRIM) 100 MG tablet Take 50 mg by mouth daily. buPROPion (WELLBUTRIN XL) 300 MG 24 hr tablet Take 300 mg by mouth every morning. Cranberry-Vitamin C-Inulin (UTI-STAT PO) Take 1 oz by mouth daily. Cyanocobalamin (VITAMIN B-12 PO) Take 1 tablet by mouth daily. dapagliflozin (FARXIGA) 10 MG TABS tablet Take 10 mg by mouth daily. levothyroxine (SYNTHROID/LEVOTHROI D) 25 MCG tablet Take 25 mcg by mouth daily EDUARDA Synthroid lisinopril (ZESTRIL) 20 MG tablet Take 20 mg by mouth daily. 03/18/2025 Multiple Vitamin (MULTIVITAMIN ADULT PO) Take 1 tablet by mouth daily. Multiple Vitamins-Minerals (PRESERVISION AREDS) TABS Take 1 tablet by mouth 2 times daily. nystatin (MYCOSTATIN) 582217 UNIT/GM external powder Apply topically 4 times daily as needed for other (Skin fold dermatitis/renetta h). omeprazole (PRILOSEC) [address] capsule Take 20 mg by mouth daily as needed (pyrosis). 02/13/2025 sennosides (SENOKOT) 8.6 MG tablet Take 1 tablet by mouth daily. sennosides (SENOKOT) 8.6 MG tablet Take 1 tablet by mouth daily as needed for constipation. simvastatin (ZOCOR) 20 MG tablet Take 20 mg by mouth every 48 hours. tamsulosin (FLOMAX) 0.4 MG capsuleIndications:A cute pyelonephritis Take 1 capsule (0.4 mg) by mouth daily as needed (stent discomfort). 10 capsule 06/10/2025 torsemide (DEMADEX) 10 MG tablet Take 10 mg by mouth daily. zinc 50 MG TABS Take 50 mg by mouth daily. oxyBUTYnin (DITROPAN) 5 MG tabletIndications:Ac galena pyelonephritis Take 1 tablet (5 mg) by mouth 3 times daily as needed for bladder spasms (Stent discomfort). 12 tablet 06/10/2025 oxyCODONE (ROXICODONE) 5 MG tabletIndications:Ac galena pyelonephritis Take 1 tablet (5 mg) by mouth every 4 hours as needed for moderate pain (IF pain not managed with non-pharmacolo gical and non-opioid interventions) . 10 tablet 05/12/2025 polyethylene glycol (MIRALAX) 17 GM/Dose powderIndications:Ac galena pyelonephritis Take 17 g by mouth daily. 510 g 05/12/2025 tolterodine ER (DETROL LA) 2 MG 24 hr capsuleIndications:B ladder spasm Take 1 capsule (2 mg) by mouth daily as needed (Bladder spasms/irritat ion). 06/10/2025 documented as of this encounter Plan of Treatment Not on file documented as of this encounter Procedures Procedure Name Priority Date/Time Associated Diagnosis Comments US RENAL COMPLETE NON-VASCULAR Routine 08/29/2025 10:15 AM CDT Nephrolithiasis documented in this encounter Results * US Renal Complete Non-Vascular (08/29/2025 10:15 AM CDT) Anatomical Region Laterality Modality Abdomen/Pelvis Ultrasound 08/29/2025 10:1 5 AM CDT Impressions 08/30/2025 9:07 AM CDT IMPRESSION: 1. No collecting system dilatation. Narrative 08/30/2025 9:07 AM CDT EXAM: US RENAL COMPLETE NON-VASCULAR LOCATION: [facility] DATE: 08/29/2025 INDICATION: post op kidney stone removal, assess for hydronephrosis COMPARISON: CT abdomen pelvis 05/07/2025 TECHNIQUE: Routine Bilateral Renal and Bladder Ultrasound. FINDINGS: RIGHT KIDNEY: 9.7 cm. No hydronephrosis. Simple cysts measuring up to 3.8 cm; no follow-up necessary. LEFT KIDNEY: 9.5 cm. No hydronephrosis. Simple cyst measuring up to 3.6 cm; no follow-up necessary. No renal stone by ultrasound. BLADDER: Unremarkable. Procedure Note Rafaela Avila MD - 08/30/2025 EXAM: US RENAL COMPLETE NON-VASCULAR LOCATION: [facility] DATE: 08/29/2025 INDICATION: post op kidney stone removal, assess for hydronephrosis COMPARISON: CT abdomen pelvis 05/07/2025 TECHNIQUE: Routine Bilateral Renal and Bladder Ultrasound. FINDINGS: RIGHT KIDNEY: 9.7 cm. No hydronephrosis. Simple cysts measuring up to 3.8cm; no follow-up necessary. LEFT KIDNEY: 9.5 cm. No hydronephrosis. Simple cyst measuring up to 3.6cm; no follow-up necessary. No renal stone by ultrasound. BLADDER: Unremarkable. IMPRESSION: 1. No collecting system dilatation. us Ankur Devine MD IMG US ORDERABLES Final Result documented in this encounter Visit Diagnoses Diagnosis Nephrolithiasis Calculus of kidney documented in this encounter Care Teams Cancer Spec Relationship Specialty Start Date End Date Diane Alejandra MD [facility] [place] [address] PCP - General Internal Medicine 10/17/17 documented as of this encounter
--- OUTSIDE RECORDS SUMMARY | 2025-09-05 09:30 | XMS_ITS | Encounter Summary ---
Author Organization [facility] Address [address] [place] [address] Care Team Providers Care Elocution Teacher Name Role Phone Diane Alejandra MD Primary Care Provider [phone] Reason for Visit * Reason Comments RECHECK Encounter Details Date Type Department Care Team (Latest Contact Info) Description 09/05/2025 10:30 AM CDT Virtual Visit [address] [place] [address] Herminia Rodríguez, REGIONAL GEODETIC ADVISOR [facility] [address] [facility], [facility] [address] [place], [place] [address] Nephrolithiasis (Primary Dx) Social History Tobacco Use Types [...] on file Legal Sex Female 3:31 AM [employer]OR[employer] Gender Identity Not on file Sexual Orientation Not on file Occupation Industry Job Start Date Job End Date Not on file Not on file Not on file Not on file documented as of this encounter Patient Instructions * Patient Instructions* Herminia Rodríguez, REGIONAL GEODETIC ADVISOR CHILD CARE ATTENDANT - 09/05/2025 10:30 AM CDT UROLOGY CLINIC VISIT PATIENT INSTRUCTIONS It was a pleasure seeing you today! Thank you for giving us the opportunity to care for you. We hope we provided the excellent service you deserve and look forward to serving you again. Instructions per today's visit: If having severe flank pain, fevers, chills, nausea, or vomiting please notify Urology clinic or be seen in the ER. If you have any issues, questions, or concerns, please don't hesitate to contact us at [facility] at [phone] or via [employer]. Important Contact Information: -To each our nurse triage line, please call our contact center at [phone]. -Our clinic hours are Friday through Friday, 8:00 a.m. - 4:30 p.m. Feel free to call during these hours with any questions. -You can also contact us anytime via [employer], and we will respond during clinic hours. Herminia Rodríguez CNP Department of Urology documented in this encounter Progress Notes * Herminia Rodríguez APRN CNP - 09/05/2025 10:30 AM CDT Urology Telephonic Office Visit Telephonic-Visit Details Type of service: Telephonic Visit Telephonic Start Time: 1024 Telephonic End Time:1038 Originating Location (pt. Location): Home Distant Location (provider location): Off-site Platform used for Telephonic Visit: [place] Assessment and Plan: Assessment:89 year old female with history of CaP stones. Plan: -Reviewed renal US with patient. No noted hydronephrosis. -The patient and I discussed the diagnosis and natural history of urolithiasis. We discussed some general measures to prevent recurrent kidney stones. These include fluid intake to achieve 2.5 litersof urine per day, decreased salt intake, normal calcium intake, lowering animal protein intake, avoiding high amounts of oxalate containing foods, and increased citrate intake with orange juice/lemonade. -Discussed option of 24 hour urine study for further evaluation for risks of stones. Pt amenable toplan. Will send litholink kit x 1. -If having severe flank pain, fevers, chills, nausea, or vomiting please notify Urology clinic or be seen in the ER. -RTC in 6-8 weeks to review results. Herminia Rodríguez CNP Department of Urology September 05, 2025 I spent a total of 20 minutes spent on the date of the encounter doing chart review, history and exam, documentation, and further activities as noted above. Chief Complaint: Post-op follow up and stone prevention. History of Present Illness: Vielka Yap is a pleasant 89 year old female who presents with post- op follow up and stone prevention. Ms. Yap was admitted from 05/07-05/12/25 for urosepsis secondary to an obstructing right renal stone s/p right ureteral stent placement on 05/07/25. Urine culture 10-50k proteus mirabilis. Renal pelvis aspirate positive for proteus mirabilis. She was admitted from 06/06-06/10/25 for her definitive stone procedure. She had a right URS/LL with vacuum. Stent was removed during admission on 06/10/25. She was treated for post-op pyelonephritislikely due to prior proteus infection. Stone Analysis: CaP She was seen in the ED on 08/07/25 for concerns of URI. No UA/UC was completed at that time. Renal US on 08/29/25 (images personally reviewed) revealed bilateral symmetrical kidneys without hydronephrosis. No noted nephrolithiasis. Bladder was unremarkable. Denies any flank pain, fevers, chills, nausea, vomiting, hematuria, or dysuria at this time. History of one other stone episode several years ago. No known family history of nephrolithiasis. She has an upcoming appointment with Nephrology on 09/14/25 with [facility]. She will drink 2 cups of coffee in the morning, apple juice or cranberry juice, and water. She doestry to watch her sodium in the diet. Past Medical History: Past Medical History: Diagnosis Date Chronic low back pain Depressive disorder Depressive disorder, not elsewhere classified Edema Edema Esophageal reflux Hypertension Hypothyroidism Mixed hyperlipidemia Morbid obesity (H) Peripheral neuropathy Primary localized osteoarthrosis, lower leg RESTLESS LEG SYNDROME Unspecified sleep apnea CPAP Urinary incontinence Past Surgical History: Past Surgical History: Procedure Laterality Date ABDOMEN SURGERY partial sigmoid resection sssecondary to rupture of diverticulum ARTHROPLASTY HIP ANTERIOR Left 11/29/2019 Procedure: LEFT TOTAL HIP ARTHROPLASTY DIRECT ANTERIOR APPROACH; Surgeon: Tomas Eckert MD; Location: OR COMBINED CYSTOSCOPY, RETROGRADES, URETEROSCOPY, INSERT STENT Right 05/07/2025 Procedure: CYSTOURETEROSCOPY, WITH RIGHT RETROGRADE PYELOGRAM AND RIGHT URETERAL STENT INSERTION,; Surgeon: Vikram Peterson MD; Location: [facility] OR CYSTOURETEROSCOPY, W/RETROGRD PYELOGRAM, LASER LITHO OF URET CALC W/STRBL ASP, & STENT INSERTION Right 06/06/2025 Procedure: Cystoscopy, retrograde pyelogram, ureteroscopy with laser lithotripsy, steerable vacuum-assisted suction, ureteral stent exchange; Surgeon: Ankur Devine MD; Location: OR ENT SURGERY tonsillectomy HC DILATION/CURETTAGE DIAG/THER NON OB X3 IN HER 50s SURGICAL HISTORY OF - 2004 Partial sigmoid resection secondary to ruptured diverticulum. SURGICAL HISTORY OF - 10/2008 Right peroneal nerve release [facility] APPENDECTOMY 1950 Z DELIVERY ONLY , Low Cervical,X2 ZC PELVIS/HIP JOINT SURGERY UNLISTED [facility] TOTAL KNEE ARTHROPLASTY 09/2007 RIGHT Medications Current Outpatient Medications Medication Sig Dispense Refill acetaminophen (TYLENOL) 650 MG CR tablet Take [...] Take 10 mg by mouth daily. levothyroxine (SYNTHROID/LEVOTHROID) 25 MCG tablet Take 25 mcg by mouth daily EDUARDA Synthroid lisinopril (ZESTRIL) 20 MG tablet Take 20 mg by mouth daily. Multiple Vitamin (MULTIVITAMIN ADULT PO) Take 1 tablet by mouth daily. Multiple Vitamins-Minerals (PRESERVISION AREDS) TABS Take 1 tablet by mouth 2 times daily. nystatin (MYCOSTATIN) 554363 UNIT/GM external powder Apply topically 4 times daily as needed for other (Skin fold dermatitis/rash). omeprazole (PRILOSEC) [address] capsule Take 20 mg by mouth daily as needed (pyrosis). oxyBUTYnin (DITROPAN) 5 MG tablet Take 1 tablet (5 mg) by mouth 3 times daily as needed for bladderspasms (Stent discomfort). 12 tablet 0 oxyCODONE (ROXICODONE) 5 MG tablet Take 1 tablet (5 mg) by mouth every 4 hours as needed for moderate pain (IF pain not managed with non-pharmacological and non-opioid interventions). 10 tablet 0 polyethylene glycol (MIRALAX) 17 GM/Dose powder Take 17 g by mouth daily. 510 g 0 sennosides (SENOKOT) 8.6 MG tablet Take 1 tablet by mouth daily. sennosides (SENOKOT) 8.6 MG tablet Take 1 tablet by mouth daily as needed for constipation. simvastatin (ZOCOR) 20 MG tablet Take 20 mg by mouth every 48 hours. tamsulosin (FLOMAX) 0.4 MG capsule Take 1 capsule (0.4 mg) by mouth daily as needed (stent discomfort). 10 capsule 0 tolterodine ER (DETROL LA) 2 MG 24 hr capsule Take 1 capsule (2 mg) by mouth daily as needed (Bladder spasms/irritation). torsemide (DEMADEX) 10 MG tablet Take 10 mg by mouth daily. zinc 50 MG TABS Take 50 mg by mouth daily. No current facility-administered medications for this visit. Family History: Family History Problem Relation Age of Onset Cerebrovascular Disease Mother D ; AGE 88 Cancer Father D ; AGE 59 LUNG CANCER Cancer Sister KIDNEY Gynecology Sister ENDOMETRIOSIS Family History Negative Sister Cancer Paternal Grandmother OVARIAN Heart Disease Paternal Grandfather PA Depression Son Social History: Social History Socioeconomic History Marital status: Spouse name: Not on file Number of children: 2 Years of education: Not on file Highest education level: Not on file Occupational History Employer: RETIRED Tobacco Use Smoking status: Never Smokeless tobacco: Never Vaping Use Vaping status: Never Used Substance and Sexual Activity Alcohol use: Yes Comment: 2drinks a month Drug use: No Sexual activity: Not Currently Other Topics Concern Parent/sibling w/ CABG, PA or angioplasty before 65F 55M? Not Asked Social History Narrative Not on file Social Drivers of Health Financial Resource Strain: Low Risk (06/07/2025) Financial Resource Strain Within the past 12 months, have you or your family members you live with been unable to get utilities (heat, electricity) when it was really needed?: No Food Insecurity: Low Risk (06/07/2025) Food Insecurity Within the past 12 months, did you worry that your food would run out before you got money to buy more?: No Within the past 12 months, did the food you bought just not last and you didn???t have money to getmore?: No Transportation Needs: Low Risk (06/07/2025) Transportation Needs Within the past 12 months, has lack of transportation kept you from medical appointments, getting your medicines, non-medical meetings or appointments, work, or from getting things that you need?: No Physical Activity: Inactive (03/10/2023) Received from [facility] Exercise Vital Sign Days of Exercise per Week: 0 days Minutes of Exercise per Session: 0 min Stress: No Stress Concern Present (03/10/2023) Received from [facility] [employer] [place] [employer] - Occupational Stress Questionnaire Feeling of Stress : Only a little Social Connections: Moderately Integrated (03/10/2023) Received from [facility] Social Connection and Isolation Panel [NHANES] Frequency of Communication with Friends and Family: Three times a week Frequency of Social Gatherings with Friends and Family: Once a week Attends Buddhist Services: 1 to 4 times per year Active Member of Clubs or Organizations: No Attends Club or Organization Meetings: Never Marital Status: Interpersonal Safety: Low Risk (06/06/2025) Interpersonal Safety Do you feel physically and emotionally safe where you currently live?: Yes Within the past 12 months, have you been hit, slapped, kicked or otherwise physically hurt by someone?: No Within the past 12 months, have you been humiliated or emotionally abused in other ways by your partner or ex-partner?: No Housing Stability: Low Risk (06/07/2025) Housing Stability Do you have housing? : Yes Are you worried about losing your housing?: No Allergies: Amoxicillin-pot clavulanate, Ibuprofen, Tazobactam, and Tetracycline Review of Systems: From intake questionnaire Negative 14 system review except as noted on HPI, nurse's note. Physical Exam: The rest of a comprehensive physical examination is deferred due to telephonic visit restrictions Labs: I personally reviewed all applicable laboratory data and went over findings with patient Significant for: CBC RESULTS: Recent Labs Lab Test 06/13/25 0859 06/09/25 0658 06/08/25 0652 06/07/25 0711 WBC 8.1 8.1 11.0 18.3* HGB 11.7 11.1* 10.1* 11.0* PLT 245 140* 119* 145* BMP RESULTS: Recent Labs Lab Test 06/13/25 0859 06/10/25 0721 06/09/25 0658 06/08/25 0652 05/07/25 1600 11/30/19 0654 11/29/19 0813 NA 140 137 137 139 < > -- -- POTASSIUM 4.7 4.7 4.5 4.5 < > -- 4.0 CHLORIDE 101 107 103 105 < > -- -- CO2 26 24 22 25 < > -- -- ANIONGAP 13 6* 12 9 < > -- -- GLC 134* 101* 94 103* < > -- -- BUN 21.1 24.7* 31.4* 38.7* < > -- -- CR 1.46* 1.39* 1.78* 2.35* < > 0.99 1.30* GFRESTIMATED 34* 37* 27* 19* < > 53* 38* GFRESTBLACK -- -- -- -- -- 61 44* VU 10.3 9.6 9.5 8.8 < > -- -- < > = values in this interval not displayed. UA RESULTS: Recent Labs Lab Test 06/07/25175305/07/252051 SG 1.017 1.020 URINEPH 5.5 6.0 NITRITE Negative Negative RBCU >182* >182* WBCU >182* >182* CALCIUM RESULTS Lab Results Component Value Date VU 10.3 06/13/2025 VU 9.6 06/10/2025 VU 9.5 06/09/2025 VU 9.5 09/15/2009 VU 9.9 04/06/2008 VU 9.9 01/13/2008 Imaging: I personally reviewed all applicable imaging and went over the below findings with patient. Results for orders placed or performed during the hospital encounter of 08/29/25 US Renal Complete Non-Vascular Narrative EXAM: US RENAL COMPLETE NON-VASCULAR LOCATION: [facility] DATE: 08/29/2025 INDICATION: post op [...] No renal stone by ultrasound. BLADDER: Unremarkable. Impression IMPRESSION: 1. No collecting system dilatation. documented in this encounter Nursing Notes * Britney Licea - 09/05/2025 10:30 AM CDT Current patient location: [address] [place] [id number] Is the patient currently in the state of [place]? YES Visit mode: VIDEO If the visit is dropped, the patient can be reconnected by:TELEPHONE VISIT: Phone number: [phone] Will anyone else be joining the visit? NO (If patient encounters technical issues they should call [phone]) Are changes needed to the allergy or medication list? Yes pt is taking a natural supplement to helpwith the lymphedema. Pt is taking a supplement to help with a nail condition/ nail fungus- pt is not exactly sure what it is. Are refills needed on medications prescribed by this physician? Discuss with provider pt asks if provider is able to renew prescription for the nystatin powder Rooming Documentation: Not applicable Reason for visit: RECHECK Britney Licea VVF Pt had a shot in her finger to help with her arthritis about 2 months ago- pt states it has helped. documented in this encounter Plan of Treatment Not on file documented as of this encounter Visit Diagnoses Diagnosis Nephrolithiasis- Primary Calculus of kidney documented in this encounter Care Teams Elocution Teacher Relationship Specialty Start Date End Date Diane Alejandra MD [address] [address] PCP - General Internal Medicine 10/17/17 documented as of this encounter
--- OUTSIDE RECORDS SUMMARY | 2025-09-14 12:30 | XMS_ITS | Encounter Summary ---
Author Organization [facility] Address [address] [place] [address] Care Team Providers Care Tick Sewer Name Role Phone Elsewhere, Pcp Primary Care Provider Unavailabl e Encounter Details Date Type Department Care Team (Latest Contact Info) Description 09/14/2025 1:30 PM CDT Virtual Visit Division of Nephrology and Hypertension in [place], [place] [address] [place] [phone] Maddie Velásquez, FIRE HYDRANT MECHANIC, C.N.P., M.S. [address] [place] [phone] Merly Rader, Ph.D., M.P.H. 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 - 09/14/2025 1:30 PM CDT SUBJECTIVE CHIEF COMPLAINT/REASON FOR VISIT Mrs. Vielka Yap is engaged in the Capacity Coaching program in Nephrology. REFERRAL. Mrs. Vielka Yap is engaged in Capacity Coaching. Today's appointment was via Phone. HISTORY OF PRESENT ILLNESS Number of sessions the patient has completed: 1 of 6. The patient's reason for participating in coaching: referred for ongoing chronic kidney disease management. Capacity Coaching Capacity coaching is a close and confidential partnership that focuses on supporting self-management. Patients choose what is most important to them to improve their health and wellbeing. The assistant strength coach supports them pursuing their priorities by reducing treatment burden and encouraging self-discovery of the patient's natural capacity and strengths. ASSESSMENT/PLAN Summary: It was nice to meet Vielka for her first coaching appointment today. She has multiple complexities in her life and health, which affect her overall. She shares she does feel overwhelmed by it all, and it keeps her up at night. Specifically, she lives with her 89 year old , who is developing dementia. They do their best to help each other with their cares. Her 60 year old son livesat home with them, and previously had been a caregiver for them. Unfortunately, he is battling headand neck cancer that is inoperable. He has received radiation and chemotherapy. He also lives with autism, which can complicate his care as well. Because of these challenges, he is not able to be a caregiver in the same way now. She shares that she is unable to be very active because of the lymphedema in her legs. She has gone from 270 pounds to now 240, which she believes was mostly fluid. She takes her water pill daily as prescribed, and notices this helps with the fluid retention, but does cause dry eyes and dry mouth. She goes to clinic regularly for eye injections as well as other doctorappointments. She often sees clinicians in the [employer] system in the [facility]. She worries a lot about losing her eyesight because she needs to drive to so many doctor appointments. Her is unable to drive now, and her son's health complicates this ability as well. They have considered whether they should move to the [facility] to be close enough for Drs appointments. Given the complex nature of her health conditions and treatments, we discussed trying to break things down simply to start taking action on. Vielka says her most important thing is to understand the dietary changes she needs to make regarding her kidney stones. While she follows a CKD friendly diet, she did not feel sheunderstood what dietary changes to make in order to avoid getting more stones. We discussed the recommendations from the most recent urology consult, specifically the recommendations These include fluid intake to achieve 2.5 liters of urine per day, decreased salt intake, normal calcium intake, lowering animal protein intake, avoiding high amounts of oxalate containing foods, and increased citrate intake with orange juice/lemonade. She does drink hot chocolate regularly and eats sweet potatoes regularly. She does not use the portal, so I told her I would put together some information on these dietary recommendations and mail them to her home. Once those are mailed, I will have her next phone visit scheduled. Patient Priorities Maintaining independence in her home 2. Dietary changes to prevent kidney stones 3. Maintaining her health to the best of her ability This Week's Action Plan: Goal #1: Review mailed materials regarding dietary recommendations Goal #2: Schedule next coaching appointment I spent 45 minutes coaching with this patient. 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
--- OUTSIDE RECORDS SUMMARY | 2025-09-14 13:30 | XMS_ITS | Encounter Summary ---
Author Organization [facility] Address [address] [place] [address] Care Team Providers Care Tubing Mill Operator Name Role Phone Elsewhere, Pcp Primary Care Provider Unavailabl e Reason for Referral * Outpatient (Routine) - Authorized Specialty Diagnoses / Procedures Referred By Contac t Referred To Contact Nephrology and Hypertension Maddie Velásquez APRN, C.N.P., M.S. 200 [place] [address] Phone: tel: fax: [facility] Referral ID Status Reason Start Date Expiration Date V isits Requested Visits Authorized [id number] Authorized 09/14/2025 03/16/2027 6 6 Scheduling Instructions Please fax lab orders to local clinic and kemmerer for telephone follow up thanks Reason for Visit * Outpatient (Routine) - Authorized Specialty Diagnoses / Procedures Referred By Contac t Referred To Contact Nephrology and Hypertension Diagnoses Chronic Kidney Disease (CKD), Stage 3b Glomerular Filtration Rate (GFR) 30 To 44 (HCC) Maddie Velásquez APRN, C.N.P., M.S. [address] [place] [phone] Phone: tel: fax: [facility] Referral ID Status Reason Start Date Expiration Date V isits Requested Visits Authorized [id number] Authorized 03/09/2025 09/08/2026 6 6 Encounter Details Date Type Department Care Team (Latest Contact Info) Description 09/14/2025 2:30 PM CDT Virtual Visit Division of Nephrology and Hypertension in [place], [place] [address] [place] [address] Maddie Velásquez APRN, C.N.P., M.S. 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 - 09/14/2025 2:30 PM CDT SUBJECTIVE CHIEF COMPLAINT / REASON FOR VISIT Chronic Kidney Disease (CKD) Clinic. Telephone follow up by Maddie Velásquez APRN, C.N.P., M.S. in [facility] to the patient in Patient's Home HISTORY OF PRESENT ILLNESS Mrs. Yap is a 89 y.o. 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 She was seen in follow-up of chronic kid jones disease stage 3B-4 March 09, 2025 when creatinine was 1.34 and GFR was 38 mL/Min. At that time,torsemide was increased to 20 mg daily for weight gain with instructions to reduce the dose to 10 mg daily when goal weight of 260 lb was achieved. Interval history May 07 to May 12, 2025 hospitalization at [facility] for acute pyelonephritis and sepsis bacteremia, hydronephrosis and SABINO. Hospital dismissal weight was 255 lb. June 06 to June 10, 2025 hospitalization of the [facility] for urosepsis, nephrolithiasis status post cystoscopy P, retrograde pyelogram, ureteroscopy with laser lithotripsy, vacuum assisted suction and right ureteral stent exchange, SABINO on CKD. Hospital dismissal weight was 245 lb. She presents for ongoing evaluation of chronic kidney disease. Her weight is down to 240 lbs. Home BP has averaged 120/65. She endorses dry mouth which is aggravated by sleeping with her mouth open. 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 She is receiving injections monthly. 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 Her also has vision problems and he has dementia. They are essentially homebound and she is considering a move from their home and into a alf community. Pako who lives with him is dying of inoperable throat and neck cancer. She denies complaint. REVIEW OF SYSTEMS The following systems were negative: Constitutional, Respiratory, Cardiovascular, Gastrointestinal,Genitourinary OBJECTIVE There were no vitals filed for this visit. PHYSICAL EXAMINATION Physical Exam ASSESSMENT / PLAN # Chronic kidney Disease (CKD) stage 3B-4, secondary to NSAID use and atrophic left kidney I am very pleased to report that her kidney function appears stable overall with creatinine in baseline range at 1.5 and GFR is 34 mL/Min. Electrolytes are satisfactory. In an effort to reduce the burden of medical appointments, we will fax lab orders to her local clinic and telephone follow up in 4 months and can be coordinated with her primary care or other local medical specialties. Recent Labs 09/14/25 1019 06/13/25 0859 06/10/25 0721 06/09/25 0658 06/08/25 0652 05/07/25 1600 03/09/25 1147 11/11/24 0915 05/25/24 1259 01/10/24 0000 09/25/23 0000 0000 NA 139 140 137 137 139 < > 141 < > 143 142 141 141 < > KSERUM -- 4.7 4.7 4.5 4.5 < > 4.8 -- 5.2 -- -- < > CL 101 101 107 103 105 < > 105 < > 106 -- 104 104 < > BICARB -- -- -- -- -- -- 25 -- 25 28 26 -- CALCIUM 10.1 10.3 9.6 9.5 8.8 < > 9.6 < > 9.3 9.9 9.7 9.7 < > CREATININE 1.5 1.46 H 1.39 H 1.78 H 2.35 H < > 1.34 H < > 1.71 H 1.6 A 1.8 A 1.8 A < > BUN 31 H 21.1 24.7 H 31.4 H 38.7 H < > 26 H < > 44 H 43 A 59 A 59 A < > < > = values in this interval not displayed. # CKD treatment options She is at at very low risk for failure. She will continue to work with Nephrology capacity coachingfor chronic kidney disease management. KFRE 2-Year: 1% at 09/14/2025 10:19 AM Calculated from: Serum Creatinine: 1.5 mg/dL at 09/14/2025 10:19 AM Urine Albumin Creatinine Ratio: 43 mg/g at 03/09/2025 10:54 AM Age: 89 years Sex: Female at 09/14/2025 10:19 AM Has CKD-3 to CKD-5: Yes KFRE 5-Year: 3.2% at 09/14/2025 10:19 AM Calculated from: Serum Creatinine: 1.5 mg/dL at 09/14/2025 10:19 AM Urine Albumin Creatinine Ratio: 43 mg/g at 03/09/2025 10:54 AM Age: 89 years Sex: Female at 09/14/2025 10:19 AM Has CKD-3 to CKD-5: Yes # Hypertension Vital signs were not available for review. No changes. Anti-Hypertensives lisinopriL 20 mg tablet TAKE 1 TABLET DAILY torsemide (Demadex) 10 mg tablet TAKE 1 TABLET DAILY, TAKE AN ADDITIONAL 10MG TABLET DAILY FOR WEIGHT GAIN OF 3LBS OVERNIGHT OR 5LBS OVER 1 WEEK Lab Results Component Value Date ALBCREARATIO 40 (H) 09/14/2025 ALBCREARATIO 43 (H) 03/09/2025 ALBCREARATIO <28 (H) 05/25/2024 ALBCREARATIO 43 (H) 06/12/2023 # Anemia of CKD/Anemia Screening Hemoglobin is stable and consistently meets goal of 10.2 or greater. 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 PTH trended downward. Recent Labs 09/14/25 1019 03/09/25 1147 11/11/24 0915 05/25/24 1259 PTH 94.7 H 127 H 173.5 H 118 H # Metabolic Acidosis/Screening Bicarbonate meets goal of 18 or greater. I personally spent 40 minutes in care of the patient today. Time includes both non face to face andface to face patient care. documented in this encounter Plan of Treatment Scheduled Orders Name Type Priority Associated Diagnoses Orde r Schedule CBC without Differential Lab Routine Hypertensive Heart And Chronic Kidney Disease Without Heart Failure With Stage 1 To 4 Chronic Kidney Disease Or Unspecified Chronic Kidney Disease Hyperparathyroidism Secondary (HCC) Expected: 01/14/2026, Expires: 12/15/2026 Renal Function Panel Lab Routine Hypertensive Heart And Chronic Kidney Disease Without Heart Failure With Stage 1 To 4 Chronic Kidney Disease Or Unspecified Chronic Kidney Disease Hyperparathyroidism Secondary (HCC) Expected: 01/14/2026, Expires: 12/15/2026 Parathyroid Hormone (PTH) Lab Routine Hypertensive Heart And Chronic Kidney Disease Without Heart Failure With Stage 1 To 4 Chronic Kidney Disease Or Unspecified Chronic Kidney Disease Hyperparathyroidism Secondary (HCC) Expected: 01/14/2026, Expires: 12/15/2026 Urinalysis, with Microscopic: Urine, Midstream Lab Routine Hypertensive Heart And Chronic Kidney Disease Without Heart Failure With Stage 1 To 4 Chronic Kidney Disease Or Unspecified Chronic Kidney Disease Hyperparathyroidism Secondary (HCC) Expected: 01/14/2026, Expires: 12/15/2026 Albumin, Random, Urine Lab Routine Hypertensive Heart And Chronic Kidney Disease Without Heart Failure With Stage 1 To 4 Chronic Kidney Disease Or Unspecified Chronic Kidney Disease Hyperparathyroidism Secondary (HCC) Expected: 01/14/2026, Expires: 12/15/2026 Cystatin C with Estimated GFR Lab Routine Hypertensive Heart And Chronic Kidney Disease Without Heart Failure With Stage 1 To 4 Chronic Kidney Disease Or Unspecified Chronic Kidney Disease Hyperparathyroidism Secondary (HCC) Expected: 01/14/2026, Expires: 12/15/2026 Uric Acid Lab Routine Hypertensive Heart And Chronic Kidney Disease Without Heart Failure With Stage 1 To 4 Chronic Kidney Disease Or Unspecified Chronic Kidney Disease Hyperparathyroidism Secondary (HCC) Expected: 01/14/2026, Expires: 12/15/2026 Scheduled Referrals Name Type Priority Associated Diagnoses Order Schedule Nephrology and Hypertension office visit (clinic) Outpatient Referral Routine Expected: 01/14/2026, Expires: 12/15/2026 documented as of this encounter Visit Diagnoses Diagnosis Hypertensive Heart And Chronic Kidney Disease Without Heart Failure With Stage 1 To 4 Chronic Kidney Disease Or Unspecified Chronic Kidney Disease- Primary Hyperparathyroidism Secondary (HCC) documented in this encounter Additional Health Concerns Assessment Noted Time PHQ-9 Depression Total Score: 15 021 12:16 PM CDT documented as of this encounter Care Teams Tubing Mill Operator Relationship Specialty Start Date End Date Elsewhere, Pcp PCP - General Internal Medicine 03/26/22 documented as of this encounter
--- OUTSIDE RECORDS SUMMARY | 2025-10-14 12:04 | XMS_ITS | Encounter Summary ---
Author Organization [facility] Address [address] [place] [address] Care Team Providers Care New Car Make Ready Mechanic Name Role Phone Elsewhere, Pcp Primary Care Provider Unavailabl e Reason for Visit * Reason Onset Date Comments Appointment 09/13/2025 Encounter Details Date Type Department Care Team (Late st Contact Info) Description 09/13/2025 Clinical Communication Division of Nephrology and Hypertension in [place], [place] [address] [place] [phone] Cleo Reno R.N. [address] [place] [phone] Appointment Social History Tobacco Use Types Packs/Day [...] or slept in a alf (including now)? 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
--- OUTSIDE RECORDS SUMMARY | 2025-10-14 12:04 | XMS_ITS | Encounter Summary ---
Author Organization [facility] Address [address] [place] [address] Care Team Providers Care Tool Mechanic Name Role Phone Nader Garibay MD Primary Care Provider [phone] Diane Alejandra MD Primary Care Provider Herminia Ortiz CORN HUSKER MOTION PICTURE SET WORKER Unavailable [phone] Encounter Details Date Type Department Care Team (Late st Contact Info) Description 09/29/[address] [phone] Ceferino Ortiz MD NO INFO AVAILABLE Social History Tobacco Use Types Packs/Day Years Used Date Smoking Tobacco: Never Smokeless Tobacco: Never Alcohol Use Standard Drinks/Week Comments Yes 0 (1 standard drink = 0.6 oz pur e alcohol) 2drinks a month Comments No Sex and Gender Information Value Date Recorded Sex Assigned at Not on file Legal Sex Female 3:31 AM DIE TURNER Gender Identity Not on file Sexual Orientation [...] 00:00 History And Physical-CEFERINO MUKHERJEE) [Entered: 00:00 Dry Transfer Worker ([facility])] : 39 CHIEF COMPLAINT: Post menopausal [...] and that was scheduled for 06/10/02 at [facility]. The inés haines called on 05/31/02 and stated that she would be leaving [facility] and asked if it would be okay to inés roquee her surgery until September. We recommended that she not do this, but the patient left and ca lled us upon her return to [facility]. She is now being admitted to the [...] 2. D&C for spontaneous . Appendectomy in 1949. The patient states she has had three [...] ORTIZ MD T: 09/2002 17:25 MT: Document: [id number] [place], [place] Name: VIELKA FOSTER HISTORY AND PHYSICAL Page 2 of 2 LCN: SDS DSC: 09/29/2002 [place], [place] Name: MR#: : Admit Date: VIELKA SNYDER [id number] Doctor: CEFERINO ORTIZ MD HISTORY AND PHYSICAL Page 1 of 2 Electronically filed by Tiffanie Del Castillo 10/01/2002 2:51 PM 00:00 Operative Report-[facility] CEFERINO ORTIZ) [Entered: 00:00 Dry Transfer Worker ([facility])] : 39 1st ASS'T: 2nd ASS'T: PRE-OPERATIV E DIAGNOSIS: Postmenopausal vaginal bleeding. POST-OPERATIVE DIAGNOSIS: Postmenopausal vaginal ble eding. OPERATION: Fractional dilation and curettage; diagnostic hysteroscopy. ANESTHESIA: General . PROCEDURE: Vielka [place] was taken to the operating room with an I.V. running in the [facility]. She was placed on the operating [...] home. [id number] CEFERINO ORTIZ MD MT: Document: [id number] [place], [place] Name: ANASTASIA SNYDERCHRIS Banks OPERATIVE REPORT Page 2 of 2 LCN : MS2 DSC: 09/30/2002 [place], [place] Name: MR#: : Procedure Vitor e: ANASTASIA SNDYERENE Jocelyn [id number] 1935 09/29/2002 Doctor: CEFERINO ORTIZ MD OPERATIVE REPO RT Page 1 of 2 Electronically filed by Cali Felipe 10/05/2002 2:15 PM documented in this encounter Plan of Treatment Not on file documented as of this encounter Visit Diagnoses Not on filedocumented in this encounter Care Teams Tool Mechanic Relationship Specialty Start Date End Date Nader Garibay MD PCP - General 01/01/02 10/16/17 Diane Alejandra MD [address] [id number] PCP - General Internal Medicine 10/17/17 Herminia Ortiz, CORN HUSKER MOTION PICTURE SET WORKER [address] [place] [address], [facility] [address] [place] [address] Assigned Surgical Provider 09/08/25 documented as of this encounter
--- OUTSIDE RECORDS SUMMARY | 2025-10-14 12:04 | XMS_ITS ---
Author Organization [facility] Address [address] [place] [address] Care Team Providers Care Materials Management Supervisor Name Role Phone Elsewhere, Pcp Primary Care Provider Unavailabl e Kidney Lock And Dam Repairer Program Status:Enrolled (Active) Start date:12/25/2023 Enrollment date:01/22/2024 Enrollment reason:Referred by provider Current support & services provided:Stage 3b Case Team Name Relationship Phone Charley Garcia R.N. Registered Nurse Continued Care and Services Coordination
--- OUTSIDE RECORDS SUMMARY | 2025-10-14 12:04 | XMS_ITS | Encounter Summary ---
Author Organization [facility] Address [address] [place] [address] Care Team Providers Care Supervisor Solder Making Name Role Phone Elsewhere, Pcp Primary Care Provider Unavailabl e Reason for Visit * Reason Onset Date Comments Appt Request 08/26/2025 Encounter Details Date Type Department Care Team (Late st Contact Info) Description 08/26/2025 Clinical Communication Division of Nephrology and Hypertension, [facility], in [place], [place] [address] [place] [phone] Maddie Velásquez, RYANN, C.N.P., M.S. [address] [place] [phone] Appt Request Social History Tobacco Use Types Packs/Day Years [...] or slept in a retirement (including now)? 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
--- OUTSIDE RECORDS SUMMARY | 2025-10-14 12:04 | XMS_ITS | Encounter Summary ---
Author Organization [facility] Address [address] [place] [address] Care Team Providers Care Tram Inspector Name Role Phone Diane Alejandra MD Primary Care Provider Herminia Rodríguez APRN ARRANGING FUNERAL DIRECTOR Unavailable [phone] Encounter Details Date Type Department Care Team (Late st Contact Info) Description 08/30/2025 Results Follow-Up [facility] Services - Surgical Specialties Service Line [address] [place] [phone] Ankur Devine MD [address] [place] [address] Social History Tobacco Use Types Packs/Day Years [...] in an abandoned building, in an overnight [facility], or couch-surfing.) Yes 06/07/2025 Are you worried [...] on file Legal Sex Female 3:31 AM CUT OFF MACHINE UNLOADER Gender Identity Not on file Sexual Orientation Not on file Occupation Industry Job Start Date Job End Date Not on file Not on file Not on file Not on file documented as of this encounter Plan of Treatment Not on file documented as of this encounter Visit Diagnoses Not on filedocumented in this encounter Care Teams Tram Inspector Relationship Specialty Start Date End Date Diane Alejandra MD [facility] [address] [place] [address] PCP - General Internal Medicine 10/17/17 Herminia Rodríguez, SANDBLASTER PAINT SPRAYER ARRANGING FUNERAL DIRECTOR [address] [place] [address], [facility] [address] [place], [place] [phone] Assigned Surgical Provider 09/08/25 documented as of this encounter
--- OUTSIDE RECORDS SUMMARY | 2025-10-14 12:04 | XMS_ITS | Encounter Summary ---
Author Organization [facility] Address [address] [place] [address] Care Team Providers Care Chemical Librarian Name Role Phone Diane Alejandra MD Primary Care Provider [phone] Herminia Rodríguez APRN JOB SUPERINTENDENT Unavailable [phone] Encounter Details Date Type Department Care Team (Late st Contact Info) Description 11/22/2019 Orders Only [facility] [address] [place] [id number] Tomas Eckert MD [facility] [address] [address] Pre-operative laboratory examination (Primary Dx) Social History Tobacco Use Types Packs/Day Years Used Date Smoking Tobacco: Never Alcohol Use Standard Drinks/Week Comments Yes 0 (1 standard drink = 0.6 oz pur e alcohol) SELDOM Comments No Sex and Gender Information Value Date Recorded Sex Assigned at Not on file Legal Sex Female 3:31 AM SUPERVISOR CHASSIS ASSEMBLY Gender Identity Not on file Sexual Orientation Not on file Occupation Industry Job Start Date Job End Date Not on file Not on file Not on file Not on file documented as of this encounter Plan of Treatment Not on file documented as of this encounter Results * Methicillin Resist/Sens S. aureus PCR (11/22/2019 9:00 AM SUPERVISOR CHASSIS ASSEMBLY) Specimen Description Nares 11/22/2019 3:59 PM SUPERVISOR CHASSIS ASSEMBLY [facility] Methicillin Resist/Sens S. aureus PCR Negative NEG^Negat lilia 11/22/2019 11:25 PM SUPERVISOR CHASSIS ASSEMBLY [facility] Comment: MRSA Negative: SA Negative MRSA and Staphylococcus aureus target DNA not detected, presumed negative for MRSA and SA colonization or the number of bacteria present may be below the limit of detection for the assay. FDA approved assay performed using [employer] GeneXpert(R) real-time PCR. Nasal structure (body structure) 11/22/2019 9:00 AM SUPERVISOR CHASSIS ASSEMBLY 11/22/2019 4:01 PM SUPERVISOR CHASSIS ASSEMBLY Tomas Eckert MD LAB - MICRO GENERAL ORDERABLES Final Result [facility] [address] [place] [address] [id number] [phone] documented in this encounter Visit Diagnoses Diagnosis Pre-operative laboratory examination- Primary Pre-procedural laboratory examination documented in this encounter Care Teams Chemical Librarian Relationship Specialty Start Date End Date Diane Alejandra MD [facility] & [address] [address] PCP - General Internal Medicine 10/17/17 Herminia Rodríguez APRN JOB SUPERINTENDENT [address] [place] [address] [address] [place] [address] Assigned Surgical Provider 09/08/25 documented as of this encounter
--- OUTSIDE RECORDS SUMMARY | 2025-10-14 12:04 | XMS_ITS | Encounter Summary ---
Author Organization [facility] Address [address] [place] [address] Care Team Providers Care Communications Instructor Name Role Phone Nader Garibay MD Primary Care Provider [phone] Diane Alejandra MD Primary Care Provider [phone] Herminia Rodríguez APRN TICKET MACHINE OPERATOR Unavailable Encounter Details Date Type Department Care Team (Late st Contact Info) Description 07/08/2002 Abstract M [address] [phone] Isaac Mason Social History Tobacco Use Types Packs/Day Years Used Date Smoking Tobacco: Never Assessed Comments No Sex and Gender Information Value Date Recorded Sex Assigned at Not on file Legal Sex Female 3:31 AM MAINTENANCE SUPERVISOR Gender Identity Not on file Sexual Orientation Not on file documented as of this encounter Plan of Treatment Not on file documented as of this encounter Visit Diagnoses Not on filedocumented in this encounter Care Teams Communications Instructor Relationship Specialty Start Date End Date Nader Garibay MD PCP - General 01/01/02 10/16/17 Diane Alejandra MD [facility] & [address] [address] PCP - General Internal Medicine 10/17/17 Herminia Rodríguez, DIRECTOR AUTO TICKET MACHINE OPERATOR [address] [place] [address], [facility] [address] [place], [place] [address] Assigned Surgical Provider 09/08/25 documented as of this encounter
--- OUTSIDE RECORDS SUMMARY | 2025-10-14 12:04 | XMS_ITS | Encounter Summary ---
Author Organization [facility] Address [address] [place] [address] Care Team Providers Care Dowel Sticker Operator Name Role Phone Elsewhere, Pcp Primary Care Provider Unavailabl e Encounter Details Date Type Department Care Team (Late st Contact Info) Description 09/14/2025 Orders Only Division of Nephrology and Hypertension in [place], [place] [address] [place] [address] External, Ordering ProviderEvette Social History Tobacco Use [...] AM CDT Legal Sex Female 10:53 AM CHICKEN VACCINATOR Gender Identity Female 02/19/2022 7:48 AM CDT Sexual Orientation Straight 02/19/2022 7: 48 AM CDT documented as of this encounter Plan of Treatment Not on file documented as of this encounter Procedures Procedure Name Priority Date/Time Associated Diagnosis Comments RENAL FUNCTION PANEL, S Routine 09/14/2025 10:19 AM CDT CBC WITH DIFFERENTIAL, B Routine 09/14/2025 10:19 AM CDT URIC ACID, S/P Routine 09/14/2025 10:19 AM CDT PARATHYROID HORMONE (PTH), S Routine 09/14/2025 10:19 AM CDT EXTP URINALYSIS WITH MICROSCOPY, URINE Routine 09/14/2025 10:15 AM CDT ALBUMIN, RANDOM, U Routine 09/14/2025 10 :15 AM CDT documented in this encounter Results * CBC with Differential, Blood (09/14/2025 10:19 AM CDT) EXT Leukocytes 6.21 4.50 - 11.00 K/uL [facility] EXT RBC 4.34 4.00 - 5.20 m/uL [facility] EXT Hemoglobin 12.9 12.0 - 16.0 gm/dL [facility] EXT Hematocrit 40.8 33.0 - 51.0 % [facility] EXT MCV 94 80 - 100 fL [facility] EXT Platelet Count 240 140 - 440 K/uL [facility] EXT Neutrophils 4.43 1.7 - 7.0 K/uL [facility] EXT Lymphocytes 1.20 0.90 - 2.90 K/uL [facility] EXT Monocytes 0.40 0.00 - 0.90 K/UL [facility] EXT Eosinophils 0.10 0.00 - 0.50 K/uL [facility] EXT Basophils 0.02 0.00 - 0.30 K/uL [facility] 09/14/2025 10:1 9 AM CDT Narrative RUFINA CORTEZ [facility] - 09/14/2025 1:57 PM CDT Source result document attached to Order Number [id number] (URIC ACID, S/P) dated 09/14/2025. External results verified in Extract by Lennie Howe on 09/14/2025 at 01:53 PM. us Ordering Provider External M.D. LAB BLOOD ADD-ON Final Result [facility] [address] [place] [address] * (ABNORMAL) Parathyroid Hormone (PTH) (09/14/2025 10:19 AM CDT) Pathologist [facility] Parathyroid Hormone (PTH) 94.7(H) 14.2 - 75.2 pg/mL [facility] 09/14/2025 10:1 9 AM CDT Narrative Askabl[facility] - 09/14/2025 1:57 PM CDT Source result document attached to Order Number [id number] (URIC ACID, S/P) dated 09/14/2025. External results verified in Extract by Lennie Howe on 09/14/2025 at 01:53 PM. us Ordering Provider External M.D. LAB BLOOD ADD-ON Final Result RUFINA MosoroCindi [facility] [address] [place] [address] * (ABNORMAL) Renal Function Panel (09/14/2025 10:19 AM CDT) Pathologist [facility] EXT Sodium 139 135 - 149 mmol/L [facility] EXT Potassium 4.7 3.6 - 5.1 mmol/L [facility] EXT Chloride 101 96 - 114 mmol/L [facility] EXT CO2 30 20 - 32 mmol/L [facility] EXT Anion Gap 8 7 - 15 mEq/L [facility] EXT BUN (Blood Urea Nitrogen) 31(H) 7 - 30 mg/dL [facility] EXT Creatinine 1.5 0.5 - 1.5 mg/dL [facility] EXT Estimated GFR (eGFR) 34 ml/min [facility] EXT Calcium, Total 10.1 8.4 - 10.6 mg/dL [facility] EXT Glucose 96 60 - 115 mg/dL [facility] EXT Albumin 4.2 3.3 - 5.0 g/dL [facility] EXT Phosphorus (Inorganic), S 3.9 2.5 - 4.5 mg/dL [facility] 09/14/2025 10:1 9 AM CDT Narrative [facility] - 09/14/2025 1:57 PM CDT Source result document attached to Order Number [id number] (URIC ACID, S/P) dated 09/14/2025. External results verified in Extract by Lennie Howe on 09/14/2025 at 01:53 PM. us Ordering Provider External M.D. LAB BLOOD ADD-ON Final Result Performing Organization Address [facility]/ZIP Co de Phone Number Mengcao [facility] [address] [place] [address] * Uric Acid (09/14/2025 10:19 AM CDT) EXT Uric Acid, S 7.3 2.2 - 8.4 mg/dL [facility] 09/14/2025 10:1 9 AM CDT Narrative [facility] - 09/14/2025 1:57 PM CDT External results verified in Extract by Lennie Howe on 09/14/2025 at 01:53 PM. us Ordering Provider External M.DSharon LAB BLOOD ADD-ON Final Result Performing Organization Address [facility] de Phone Number [facility] [address] [place] [address] * (ABNORMAL) Albumin, Random, Urine (09/14/2025 10:15 AM CDT) EXT Creatinine, Urine 22.1 mg/dL [facility] EXT Microalbumin-R andom, U <1 mg/dL [facility] EXT Albumin/Creati nine Ratio 40(H) 0 - 30 [facility] 09/14/2025 10:1 5 AM CDT Narrative [facility] - 09/14/2025 1:57 PM CDT Source result document attached to Order Number [id number] (URIC ACID, S/P) dated 09/14/2025. External results verified in Extract by Lennie Howe on 09/14/2025 at 01:53 PM. us Ordering Provider External Evette LAB URINE ORDERA BLES Final Result Performing Organization Address City/[facility]/ZIP Co de Phone Number RUFINA RST [facility] NA [facility] [address] [place] [address], [facility] [phone] * (ABNORMAL) EXT Urinalysis with Microscopy, Urine (09/14/2025 10:15 AM CDT) EXT Color Yellow Yellow [facility] Appearance, Urine Clear Clear [facility] Glucose Qualitative, Urine Trace(H) Negative [facility]T Bilirubin, Urine Negative Negative [facility] EXT Ketones, POCT, Urine Negative Negative [facility] EXT Specific Ethel, POCT, Urine 1.010 1.000 - 1.030 ML [facility] EXT Blood, Urine Negative Negative [facility] EXT pH, Random, Urine 5.5 5.0 - 8.5 [facility] EXT Protein, Urine Negative Negative [facility] EXT Urobilinogen, Urine 0.2 0.2 - 1.0 ML [facility] EXT Nitrite, Urine Negative Negative [facility] EXT Leukocyte Esterase, Urine Negative Negative [facility] EXT Red Blood Cells, U 0-2 0 - 2 [facility] EXT White Blood Cells, U 0-2 0 - 5 [facility] EXT Squamous Cells None None-Few [facility] Bacteria None None [facility] 09/14/2025 10:1 5 AM CDT Narrative [facility] - 09/14/2025 1:57 PM CDT Source result document attached to Order Number [id number] (URIC ACID, S/P) dated 09/14/2025. External results verified in Extract by Lennie Howe on 09/14/2025 at 01:53 PM. us Ordering Provider External Evette LAB URINE ORDERA BLES Final Result Performing Organization Address City/[facility]/ZIP Co de Phone Number [facility] [address] [place], [place] [address] [phone] documented in this encounter Visit Diagnoses Not on filedocumented in this encounter Additional Health Concerns Assessment Noted Time PHQ-9 Depression Total Score: 15 021 12:16 PM CDT documented as of this encounter Care Teams Dowel Sticker Operator Relationship Specialty Start Date End Date Elsewhere, Pcp PCP - General Internal Medicine 03/26/22 documented as of this encounter
--- OUTSIDE RECORDS SUMMARY | 2025-10-14 12:04 | XMS_ITS | Clinical Summary ---
Author Organization [facility] Address [address] [place] [address] Care Team Providers Care Propellant Assembler Name Role Phone Elsewhere, Pcp Primary Care Provider Unavailabl e Source Comments Patient records contain information from all sites at [facility]. For routine questions regarding patient records, call [phone] during business hours, M-F 8:00 AM - 5:00 PM Central Time. Record requests for emergency care only can be directed to [phone] at any time.[facility] Allergies Active Allergy Reactions Criticality Noted Date [...] - protected Coenzyme B12)100 mcg Folate (as A-8-bjrsuxrxpvafmvl ofolate)400 mcg DFE Biotin1,200 mcg Calcium (as calcium ascorbate/carbonate )80 mg Magnesium (as magnesium oxide)40 mg Zinc (as zinc citrate/oxide)15 mg Selenium (as sodium selenite)150 mcg Copper (as copper citrate)1 mg (1,000 mcg) Manganese (as manganese citrate) 2.3 mg (2,300 mcg) Chromium (as chromium nicotinate)120 mcg Molybdenum (as molybdenum glycinate)75 mcg Coenzyme Q-10 (natural ubiquinone) 10 mg Vitamin K2 MK-7 (as menaquinone-7)40 mcg [place] (as potassium borate) 100 mcg Vanadium (as [...] Encounters Date Type Department Care Team Description 09/14/2025 2:30 PM CDT Virtual Visit Division of Nephrology and Hypertension in [place], [place] [address] [place] [address] Maddie Velásquez APRN, C.N.P., M.S. 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 Merly Rader, Ph.D., M.P.H. Hypertensive Chronic Kidney Disease With Stage 1 Through Stage 4 Chronic Kidney Disease, Or Unspecified Chronic Kidney Disease (Primary Dx) 09/14/2025 Orders Only Division of Nephrology and Hypertension in [place], [place] [address] [place] [phone] External, Ordering Provider, MJimmy. 09/13/2025 Clinical Communication Division of Nephrology and Hypertension in [place], [place] [address] [place] [phone] Cleo Reno R.N. Appointment 08/26/2025 Clinical Communication Division of Nephrology and Hypertension, [facility], in [place], [place] [address] [place] [address] Maddie Velásquez APRN, Kitty.N.P., M.S. Appt Request 07/21/2025 Clinical Communication Division of Nephrology and Hypertension in [place], [place] [address] [place] [address] Maddie Velásquez APRN, Kitty.N.P., M.S. Follow-up Orders (Recent stone surgeries) from [...] chuckie romeo Ovarian cancer Sister 1 pat makamzeb Kidney cancer Sister 2 [facility] kidney rem sherice Ovarian cancer Sister 2 [facility] Ovarian cancer Sister 3 [facility] Relation Name Status Comments Father edmayra rtesch Mother chuckie romeo Sister 1 pat dtamond Sister 2 [facility] Sister 3 [facility] Social History Tobacco Use Types [...] or slept in a fpc (including now)? 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 Gender Identity Female 02/19/2022 7:48 AM [...] - 19+ 3-dose series) 06/11/2005 01/15/2005, 12/12/2004 Depression Screening (Annual PHQ-2) 11/17/2024 Fall Risk Screen (Annual) 11/17/2024 COVID-19 Vaccine ( season) 2026 08/24/2025, 06/13/2025, 09/03/2024, Additional history exists Creatinine Level (Kidney Function Test) 09/14/2026 09/14/2025, 06/13/2025, 06/10/2025, Additional history exists Potassium Level 09/14/2026 09/14/2025, 05/18, 06/10/2025, Additional history exists Sodium Level 09/14/2026 09/14/2025, 05/18, 06/10/2025, Additional history exists DTaP,Tdap,and Td Vaccines (2 - Td or Tdap) 11/19/2026 11/19/2016, 08/10/2010, 01/24/2000 Pneumococcal vaccine (50+ years) Completed 09/29/2015, 08/10/2010, 09/05/1994 Zoster Vaccines Completed 10/29/2018, 1002/2018, 08/13/2012 RSV vaccine - (32-36 weeks) or 50+ years Completed 06/13/2025, 06/02/2025 Influenza Vaccine Completed 08/24/2025, , 07/16/2023, Additional history exists IPV Vaccines Aged Out No longer eligi ble based on patient's age to complete this topic Medical Devices Implanted Type Area Regional Safety Manager Device Identifier Shelf Expiration Date Model / [...] Procedure Name Priority Date/Time Associated Diagnosis Comments CBC WITH DIFFERENTIAL, B Routine 09/14/2025 10:19 AM CDT PARATHYROID HORMONE (PTH), S Routine 09/14/2025 10:19 AM CDT RENAL FUNCTION PANEL, S Routine 09/14/2025 10:19 AM CDT URIC ACID, S/P Routine 09/14/2025 10:19 AM CDT ALBUMIN, RANDOM, U Routine 09/14/2025 10 :15 AM CDT EXTP URINALYSIS WITH MICROSCOPY, URINE Routine 09/14/2025 10:15 AM CDT from Last 3 Months Results * (ABNORMAL) Renal Function Panel (09/14/2025 10:19 AM CDT) EXT Sodium 139 135 - 149 mmol/L [facility] EXT Potassium 4.7 3.6 - 5.1 mmol/L [facility] EXT Chloride 101 96 - 114 mmol/L [facility] EXT CO2 30 20 - 32 mmol/L [facility] EXT Anion Gap 8 7 - 15 mEq/L [facility] EXT BUN (Blood Urea Nitrogen) 31(H) 7 - 30 mg/dL [facility] EXT Creatinine 1.5 0.5 - 1.5 mg/dL [facility] EXT Estimated GFR (eGFR) 34 ml/min [facility] EXT Calcium, Total 10.1 8.4 - 10.6 mg/dL [facility] EXT Glucose 96 60 - 115 mg/dL [facility] EXT Albumin 4.2 3.3 - 5.0 g/dL [facility] EXT Phosphorus (Inorganic), S 3.9 2.5 - 4.5 mg/dL [facility] 09/14/2025 10:1 9 AM CDT Narrative [employer] [facility] - 09/14/2025 1:57 PM CDT Source result document attached to Order Number [id number] (URIC ACID, S/P) dated 09/14/2025. External results verified in Extract by Lennie Howe on 09/14/2025 at 01:53 PM. us Ordering Provider External M.D. LAB BLOOD ADD-ON Final Result [employer] [facility] [address] [phone] * CBC with Differential, Blood (09/14/2025 10:19 AM CDT) EXT Leukocytes 6.21 4.50 - 11.00 K/uL [facility] EXT RBC 4.34 4.00 - 5.20 m/uL [facility] EXT Hemoglobin 12.9 12.0 - 16.0 gm/dL [facility] EXT Hematocrit 40.8 33.0 - 51.0 % [facility] EXT MCV 94 80 - 100 fL [facility] EXT Platelet Count 240 140 - 440 K/uL [facility] EXT Neutrophils 4.43 1.7 - 7.0 K/uL [facility] EXT Lymphocytes 1.20 0.90 - 2.90 K/uL [facility] EXT Monocytes 0.40 0.00 - 0.90 K/UL [facility] EXT Eosinophils 0.10 0.00 - 0.50 K/uL [facility] EXT Basophils 0.02 0.00 - 0.30 K/uL [facility] 09/14/2025 10:1 9 AM CDT [employer] [facility] - 09/14/2025 1:57 PM CDT Source result document attached to Order Number [id number] (URIC ACID, S/P) dated 09/14/2025. External results verified in Extract by Lennie Howe on 09/14/2025 at 01:53 PM. us Ordering Provider External [employer] LAB BLOOD ADD-ON Final Result Performing Organization Address [facility]/ZIP Co de Phone Number [employer] [facility] [address] [phone] * Uric Acid (09/14/2025 10:19 AM CDT) EXT Uric Acid, S 7.3 2.2 - 8.4 mg/dL [facility] 09/14/2025 10:1 9 AM CDT [facility] - 09/14/2025 1:57 PM CDT External results verified in Extract by Lennie Howe on 09/14/2025 at 01:53 PM. us Ordering Provider External [employer] LAB BLOOD ADD-ON Final Result Performing Organization Address [facility]/ZIP Co de Phone Number [facility] [address] [phone] * (ABNORMAL) Parathyroid Hormone (PTH) (09/14/2025 10:19 AM CDT) Parathyroid Hormone (PTH) 94.7(H) 14.2 - 75.2 pg/mL [facility] 09/14/2025 10:1 9 AM CDT [employer] [facility] - 09/14/2025 1:57 PM CDT Source result document attached to Order Number [id number] (URIC ACID, S/P) dated 09/14/2025. External results verified in Extract by Lennie Howe on 09/14/2025 at 01:53 PM. us Ordering Provider External M.DSharon LAB BLOOD ADD-ON Final Result [employer] [facility] [address] [phone] * (ABNORMAL) EXT Urinalysis with Microscopy, Urine (09/14/2025 10:15 AM CDT) EXT Color Yellow Yellow [facility] EXT Appearance, Urine Clear Clear [facility] EXT Glucose Qualitative, Urine Trace(H) Negative [facility] EXT Bilirubin, Urine Negative Negative [facility] EXT Ketones, POCT, Urine Negative Negative [facility] EXT Specific [place], POCT, Urine 1.010 1.000 - 1.030 [facility] EXT Blood, Urine Negative Negative [facility] EXT pH, Random, Urine 5.5 5.0 - 8.[address] [facility] EXT Protein, Urine Negative Negative [facility] EXT Urobilinogen, Urine 0.2 0.2 - 1.0 [facility] EXT Nitrite, Urine Negative Negative [facility] EXT Leukocyte Esterase, Urine Negative Negative [facility] EXT Red Blood Cells, U 0-2 0 - 2 [facility] EXT White Blood Cells, U 0-2 0 - 5 [facility] EXT Squamous Cells None None-Few [facility] EXT Bacteria None None [facility] 09/14/2025 10:1 5 AM CDT Narrative [facility] - 09/14/2025 1:57 PM CDT Source result document attached to Order Number [id number] (URIC ACID, S/P) dated 09/14/2025. External results verified in Extract by Lennie Howe on 09/14/2025 at 01:53 PM. us Ordering Provider External M.DSharon LAB URINE ORDERA BLES Final Result Performing Organization Address [facility]/ZIP Co de Phone Number [facility] [address] [phone] * (ABNORMAL) Albumin, Random, Urine (09/14/2025 10:15 AM CDT) EXT Creatinine, Urine 22.1 mg/dL [facility] EXT Microalbumin-R andom, U <1 mg/dL [facility] EXT Albumin/Creati nine Ratio 40(H) 0 - 30 [facility] 09/14/2025 10:1 5 AM CDT Narrative [employer] [facility] - 09/14/2025 1:57 PM CDT Source result document attached to Order Number [id number] (URIC ACID, S/P) dated 09/14/2025. External results verified in Extract by Lennie Howe on 09/14/2025 at 01:53 PM. us Ordering Provider External MShea LAB URINE ORDERA BLES Final Result Performing Organization Address [facility] de Phone Number [employer] [facility] [address] [id number] [phone] from Last 3 Months Insurance MEDICARE [facility] Care Teams Propellant Assembler Relationship Specialty Start Date End Date Elsewhere, Pcp PCP - General Internal Medicine 03/26/22
--- OUTSIDE RECORDS SUMMARY | 2025-10-14 12:04 | XMS_ITS | Clinical Summary ---
Author Organization [facility] Address [address] [place] [id number] Care Team Providers Care Advanced Manufacturing Consultant Name Role Phone Diane Alejandra MD Primary Care Provider Herminia Rodríguez APRN WIRE BOUND BOX MACHINE OPERATOR Unavailable [phone] Allergies Active Allergy Reactions Criticality Noted Date [...] tablet Take 20 mg by mouth daily. 03/18/20 25 Active omeprazole (PRILOSEC) [address] capsule Take 20 mg by mouth daily as needed (pyrosis). 02/14/20 25 Active torsemide (DEMADEX) 10 MG tablet Take [...] mg by mouth daily. Active nystatin (MYCOSTATIN) 940897 UNIT/GM external powder Apply topically 4 times daily as needed for other (Skin fold dermatitis/rash ). Active Cyanocobalamin (VITAMIN B-12 PO) Take 1 tablet by mouth daily. Active oxyCODONE (ROXICODONE) 5 MG tabletIndications: Acute pyelonephritis Take 1 tablet (5 mg) by mouth every 4 hours as needed for moderate pain (IF pain not managed with non-pharmacolog ical and non-opioid interventions). 10 tablet 05/12/20 Active Additional Information Patient not taking.Reported on 09/05/2025 polyethylene glycol (MIRALAX) 17 GM/Dose powderIndications: Acute pyelonephritis Take 17 g by mouth daily. 510 g 05/12/20 Active Additional Information Patient not taking.Reported on 09/05/2025 sennosides (SENOKOT) 8.6 MG tablet Take 1 tablet by mouth daily. Active Cranberry-Vitamin C-Inulin (UTI-STAT PO) Take 1 oz by mouth daily. Active sennosides (SENOKOT) 8.6 MG tablet Take 1 tablet by mouth daily as needed for constipation. Active tamsulosin (FLOMAX) 0.4 MG capsuleIndications :Acute pyelonephritis Take 1 capsule (0.4 mg) by mouth daily as needed (stent discomfort). 10 capsule 06/10/20 Active oxyBUTYnin (DITROPAN) 5 MG tabletIndications: Acute pyelonephritis Take 1 tablet (5 mg) by mouth 3 times daily as needed for bladder spasms (Stent discomfort). 12 tablet 06/10/20 Active Additional Information Patient not taking.Reported on 09/05/2025 tolterodine ER (DETROL LA) 2 MG 24 hr capsuleIndications :Bladder spasm Take 1 capsule (2 mg) by mouth daily as needed (Bladder spasms/irritati on). 06/10/20 Active Additional Information Patient not taking.Reported on 09/05/2025 Active Problems Problem Noted Date Diagnosed Date [...] Encounters Date Type Department Care Team Description 09/05/2025 10:30 AM CDT Virtual Visit [place] [address] [facility] [address] [place] [phone] Herminia Rodríguez, MANAGER INPATIENT WIRE BOUND BOX MACHINE OPERATOR Nephrolithiasis (Primary Dx) 08/30/2025 Results [facility] - Surgical Specialties Service Line [address] [place] [address] Jovani Devine MD 08/29/2025 9:30 AM CDT - 08/29/2025 11:59 PM CDT Hospital Encounter [facility] [id number] [facility] [address] [place] [phone] Jovani Devine MD Nephrolithiasis Discharge Disposition: Home or Self Care 08/29/2025 Travel from Last 3 Months Immunizations Immunization Administration Dates Next Due HepB 01/15/2005,12/12/2004 Influenza (IIV3) PF 08/16/2009, 7,09/15/2006,09/08/2003,09/2002,11/24/2001 Mantoux Tuberculin Skin Test 02/21/2003 Pneumococcal 23 valent 09/05/1994 TD,PF 7+ (Tenivac) 01/24/2000 Family History Medical History Relation Comments Cancer Father D ; AGE 59 LUNG CANCER Cerebrovascular Disease Mother D ; AGE 88 Heart Disease Paternal Grandfather PR Cancer Paternal Grandmother OVARIAN Cancer Sister 1 [...] Answer Date Recorded Do you have housing? (Brigettein g is defined as stable permanent housing and does not include staying outside in a car, in a tent, in an abandoned building, in an overnight alf, or couch-surfing.) Yes 06/07/2025 Are you worried [...] on file Legal Sex Female 3:31 AM STUFFED CASING TIER Gender Identity Not on file Sexual Orientation [...] 06/06/2025 11:07 AM CDT Plan of Treatment Health Maintenance Due [...] 08/15/2006, Additional history exists DEXA 06/27/2020 06/27/2005 BMP 09/13/2025 06/13/2025, 05/18, 06/09/2025, Additional history exists HEMOGLOBIN 12/14/2025 06/13/2025, 05/18, 06/08/2025, Additional history exists COVID-19 VACCINE ( season) 2026 08/24/2025, 06/13/2025, 09/03/2024, Additional history exists DTAP/TDAP/TD VACCINE (2 - Td or Tdap) 11/19/2026 11/19/2016, 08/10/2010, 01/24/2000 ADVANCE CARE PLANNING 06/15/2030 06/15/2025 ZOSTER VACCINE Completed 10/29/2018, 02/2018, 08/13/2012 PNEUMOCOCCAL VACCINE 50+ YEARS Completed 06/03/2025, 09/29/2015, 08/10/2010, Additional history exists URINALYSIS Completed 06/07/2025, 04/18, 09/23/2007, Additional history exists ALK PHOS Completed 06/08/2025, 06/17, 05/21/2007, Additional history exists RSV VACCINE Completed 06/13/2025, 06/02/2025 INFLUENZA VACCINE Completed 08/24/2025, , 07/16/2023, Additional history exists HPV VACCINE (No Doses Required) Completed MENINGITIS VACCINE Aged Out No longer eligible based on patient's age to complete this topic Medical Devices Implanted Type Area Machine Tool Technology Instructor Device Identifier Shelf Expiration Date Model / Serial / Lot Imp Scr Zim 6.5x30mm Acet Cup Self Tap [id number] Implanted:Qty : 1 on 11/29/2019 by Tomas Eckert MD at [facility] Metallic Hardware/An chor Left: Hip [employer] 07/17/2029 [id number] / / [id number] Stent Ureteral Polaris Ultra [id number] - [id number] Implanted:Qty : 1 on 06/06/2025 by Hector Casarez MD at [facility] Stent Right: Ureter [employer] [id number] 02/22/2028 [id number] / / [id number] Imp Shell Biom G7 Acetab Pps Carrillo Hole 52mm Sz E [id number] Implanted:Qty : 1 on 11/29/2019 by Tomas Eckert MD at [facility] Total Joint Component/I nsert Left: Hip [employer] 06/25/2029 [id number] / / [id number] Imp Stem Fem Biom Taperloc Hi Offset Type 1 Sz9 [id number] Implanted:Qty : 1 on 11/29/2019 by Tomas Eckert MD at [facility] Total Joint Component/I nsert Left: Hip [employer] 03/23/2029 [id number] / / [id number] Acetabular Liner Neutral, 36mm Head Size, E Liner Size Implanted:Qty : 1 on 11/29/2019 by Tomas Eckert MD at [facility] Left: Hip [employer]ET 08/27/2024 [id number] / / [id number] Biolox Delta Hip System Modular Ceramic Head, Type 1 Taper, 36mm Head 0 Standard Neck Implanted:Qty : 1 on 11/29/2019 by Tomas Eckert MD at [facility] Left: Hip [employer]ET 03/22/2029 [id number] / / [id number] Explanted Type Area Machine Tool Technology Instructor Device Identifier Shelf Expiration Date Model / Serial / Lot Stent Ureteral Percuflex Plus [id number] - [id number] Implanted:Qty : 1 on 05/07/2025 by Vikram Peterson MD at [facility] Explanted:Qty : 1 on 06/06/2025 by Hector Casarez MD at [facility] Stent Right: Ureter [employer] [id number] 10/08/2027 [id number] / / [id number] Procedures Procedure Name Priority Date/Time Associated Diagnosis Comments US RENAL COMPLETE NON-VASCULAR Routine 08/29/2025 10:15 AM CDT Nephrolithiasis CBC WITH PLATELETS Routine 06/13/2025 8: 59 AM CDT Urinary tract infection, site not specified Acute posthemorrhagic anemia BASIC METABOLIC PANEL NO GLUCOSE (OUTREACH) Routine 06/13/2025 8:59 AM CDT Urinary tract infection, site not specified Acute posthemorrhagic anemia HEPATIC FUNCTION PANEL Routine 06/08/2025 6:52 AM CDT ROUTINE UA WITH MICROSCOPIC REFLEX TO CULTURE Routine 06/07/2025 5:54 PM CDT ZZHCL TSH W/FREE T4 REFLEX Routine 09/15/2009 12:25 PM CDT Screening for Condition CL AFF A.M.A. LIPID PANEL Routine 09/15/2009 12:25 PM CDT Mixed Hyperlipidemia C DEXA, BONE DENSITY, AXIAL SKEL Routine 06/27/2005 DIAGNOSIS NOT YET DEFINED HCL URIC ACID Routine 01/27/2004 2:41 PM STUFFED CASING TIER Joint Pain-Lower Leg from Last 3 Months or Most Recently Relevant to Health Maintenance Results * US Renal Complete Non-Vascular (08/29/2025 10:15 AM CDT) Anatomical Region Laterality Modality Abdomen/Pelvis Ultrasound 08/29/2025 10:1 5 AM CDT Impressions 08/30/2025 9:07 AM CDT IMPRESSION: 1. No collecting system dilatation. Narrative 08/30/2025 9:07 AM CDT EXAM: US RENAL COMPLETE NON-VASCULAR LOCATION: [facility] DATE: 08/29/2025 INDICATION: post op kidney stone [...] 08/30/2025 EXAM: US RENAL COMPLETE NON-VASCULAR LOCATION: [facility] DATE: 08/29/2025 INDICATION: post op kidney stone [...] Devine MD IMG US ORDERABLES Final Result * (ABNORMAL) Basic Metabolic Panel No Glucose (OUTREACH) (06/13/2025 8:59 AM CDT) Sodium 140 135 - 145 mmol/L 06/13/2025 [...] 2:01 PM CDT Chris Peres SUPPLY CHAIN ASSISTANT LAB - BLOOD ORDERABLES Final Result [facility] [place] [facility] [address] [facility], [address] [place] [phone] * (ABNORMAL) CBC with platelets (06/13/2025 8:59 AM CDT) [facility] WBC Count 8.1 4.0 - 11.0 10e3/uL [...] 2:01 PM CDT Chris Peres SUPPLY CHAIN ASSISTANT LAB - BLOOD ORDERABLES Final Result [facility] [place] [facility] [address] [facility], [address] [place] [address] * (ABNORMAL) Hepatic function panel (06/08/2025 6:52 AM CDT) Protein Total 5.4(L) 6.4 - 8.3 g/dL [...] LAB - BLOOD ORDERABLES Final Result LABORATORY [facility] [address] floor, [address] [place] [address], [facility] [phone] * (ABNORMAL) UA with Microscopic reflex to Culture (06/07/2025 5:54 PM CDT) Color Urine [place](A) Colorless, Straw, Light Yellow, Yellow 06/07/2025 6:37 PM CDT LABORATORY Appearance Urine Slightly Cloudy(A) Clear 06/07/2025 6:37 PM CDT LABORATORY Glucose Urine Negative Negative mg/dL 06/07/2025 6:37 PM CDT LABORATORY Bilirubin Urine Negative Negative 6:37 PM CDT LABORATORY Ketones Urine Negative Negative mg/dL 06/07/2025 6:37 PM CDT LABORATORY Specific [place] Urine 1.017 1.003 - 1.035 06/07/2025 6:37 [...] None Seen /HPF 06/07/2025 6:37 PM CDT LABORATORY Mucus Urine Present(A) None Seen /LPF 06/07/2025 6:37 PM CDT LABORATORY RBC Urine >182(H) <=2 /HPF 06/07/2025 6:37 PM CDT LABORATORY WBC Urine >182(H) <=5 /HPF 06/07/2025 6:37 PM CDT LABORATORY Squamous Epithelials Urine <1 <=1 /HPF 06/07/2025 6:37 PM CDT LABORATORY Urine URINE SPECIMEN OBTAINED BY CLEAN CATCH PROCEDURE / Unknown Non-blood Collection / Unknown 06/07/2025 5:54 PM CDT 06/07/2025 6:11 PM CDT Narrative LABORATORY - 06/07/2025 6:37 PM CDT Urine Culture ordered based on laboratory criteria us Juanito Obregon DO LAB - URINE ORDERABLES Final Result LABORATORY [facility] Acute Care Lab [address] floor, [address] [place] [address], [facility] [phone] * TSH W/FREE T4 REFLEX (09/15/2009 12:25 PM CDT) TSH 4.59 0.4 - 5.0 mU/L [facility] 09/15/2009 12:2 5 PM CDT 09/15/2009 12:30 PM CDT Nader Garibay MD LABORATORY Final Resu lt Performing Organization Address [facility] Co de Phone Number [facility] [address] [place] [phone] * (ABNORMAL) A.M.A. LIPID PANEL (09/15/2009 12:25 PM CDT) Cholesterol 197 0 - 200 mg/dL [facility] Comment: LDL Cholesterol is the primary guide to therapy: LDL-cholesterol goal in high risk patients is <100 mg/dL and in very high risk patients is <70 mg/dL. The NCEP recommends further evaluation of: patients with cholesterol <200 mg/dL if additional risk factors are present, cholesterol >240 mg/dL, triglycerides >150 mg/dL, or HDL <40 mg/dL. Triglycerides 150 0 - 150 mg/dL [facility] HDL Cholesterol 45(L) 50 - 110 mg/dL [facility] LDL Cholesterol Calculated 122 0 - 129 mg/dL [facility] VLDL-Cholesterol 30 0 - 30 mg/dL [facility] Cholesterol/HDL Ratio 4.4 0.0 - 5.0 [facility] 09/15/2009 12:2 5 PM CDT 09/15/2009 12:30 PM CDT us Nader Garibay MD LABORATORY Final Resu lt Performing Organization Address [facility] Co de Phone Number [facility] [address] [place] [phone] * DEXA, BONE DENSITY, AXIAL SKEL (06/27/2005) Anatomical Region Laterality Modality Other 06/27/2005 us Isaac Mason SPECIAL IMAGING STUDIES Fin al Result * URIC ACID (01/27/2004 2:41 PM STUFFED CASING TIER) Uric Acid 5.6 2.5 - 7.5 mg/dL [facility] 01/27/2004 2:41 PM STUFFED CASING TIER 01/27/2004 2:42 PM STUFFED CASING TIER us Isaac Mason LABORATORY Final Resul t [facility] [address] [place] [address] from Last 3 Months or Most Recently Relevant to Health Maintenance Insurance [facility] [employer] MEDICARE [facility] [employer] MEDICARE Advance Directives For more information, please contact: [phone] Documents on File Type Date Recorded Patient Toy Stuffer Expl anation Advance Directives and Livin g Will 06/15/2025 [facility] 05-12-2025 * Full Code (Latest Code Status on File) Date Activated Date Inactivated Comments 06/06/2025 7:00 PM 06/10/2025 2:27 PM All basic an d advanced life-sustaining interventions are performed as appropriate Question Answer Comments Code status determined by: Discussion with anayeli nt/ legal decision maker * Full Code Date Activated Date Inactivated Comments 05/07/2025 3:12 PM 05/12/2025 12:55 PM All basic a nd advanced life-sustaining interventions are performed as appropriate Question Answer Comments Code status determined by: Discussion with anayeli nt/ legal decision maker Care Teams Advanced Manufacturing Consultant Relationship Specialty Start Date End Date Diane Alejandra MD [facility] [address] [place] [address] PCP - General Internal Medicine 10/17/17 Herminia Rodríguez, MANAGER INPATIENT WIRE BOUND BOX MACHINE OPERATOR [address] [place] [address], [facility] [address] [place] [address] Assigned Surgical Provider 09/08/25
--- NOTE | 2025-10-14 13:08 | CRLHL7_ITS ---
For Patients: As a result of the Century Cures Act, medical imaging exams and procedure reports are released immediately into your electronic medical record. You may view this report before your referring provider. If you have questions, please contact your health care provider. Indication: direct blow, swelling and pain Technique: Three views of the left ankle. Comparison: None. Findings: Mild soft tissue swelling surrounding the ankle. No acute displaced fracture or malalignment. Mild degenerative changes of the ankle. Mild degenerative changes of the midfoot. Impression: No acute displaced fracture or malalignment. Mild degenerative changes of the ankle. Dictated by Fausto Cabrera MD @ 10/14/2025 1:31:22 PM (Electronically Signed)
[2025-10-14 13:09] VITALS: BP 133/77; PULSE 65; RESP 18; TEMP 36.6; O2SAT 99; BMI 40.3
--- NOTE | 2025-10-14 14:20 | ED.LOWEXIN ---
HPI - Extremity Injury (Lower) General Chief Complaint: Extremity Pain/Injury, Lower Stated Complaint: foot injury (L) Time Seen by Provider: 10/14/25 14:05 History of Present Illness HPI Narrative: This 89-year-old female comes in with her and reports pain and swelling with redness on the anterior aspect of her left lower extremity just above her ankle. A few days ago her accidentally hit her in this area with a cane as he was falling. Since then she has developed increased pain and some bruising with warmth and swelling in this area. She does have chronic bilateral pedal edema. Her right leg is edematous but cool to the touch where as her left leg is rather warm and much more tender or. She states that she has been ambulating on both legs normally. Related Data Home Medications ?Medication ?Instructions ?Recorded ?Confirmed allopurinol 100 mg tablet 50 mg PO DAILY 10/07/22 04/27/25 dapagliflozin propanediol 10 mg 10 mg PO QDAY 10/07/22 04/27/25 tablet (Farxiga) zinc sulfate 50 mg zinc (220 mg) 50 mg PO DAILY 10/07/22 04/27/25 capsule lisinopril 20 mg tablet 20 mg PO DAILY 07/24/23 04/27/25 multivitamin (Daily Multi-Vitamin 1 tab PO DAILY 07/24/23 04/27/25 tablet) acetaminophen 650 mg 1,300 mg PO TID PRN 09/29/23 04/27/25 tablet,extended release torsemide 10 mg tablet 10 mg PO DAILY 09/29/23 04/27/25 lactobacillus combination no.9 4 4,000 mmu cells PO QDAY 10/21/24 04/27/25 billion cell capsule (Adult 50 Plus Probiotic) cyanocobalamin (vitamin B-12) PO DAILY 11/20/24 04/27/25 vit C 250 mg-vit E 90 mg-zinc 40 1 tab PO BID 11/25/24 04/27/25 mg-copper 1 [id number] capsule (PreserVision AREDS-2) Previous Rx's ?Medication ?Instructions ?Recorded bupropion HCl 300 mg 24 hr tablet, 300 mg PO QDAY #90 tabs 10/21/24 extended release levothyroxine 25 mcg tablet 25 mcg PO QDAY #90 tabs 10/21/24 omeprazole 20 mg capsule,delayed 20 mg PO QDAY #90 caps 12/07/24 release simvastatin 20 mg tablet 20 mg PO Q48H #45 tabs 12/30/24 nystatin 100,000 unit/gram topical 1 applic topical QID PRN rash #60 03/15/25 powder grams amoxicillin 500 mg capsule 1,000 mg (2 x 500 mg) PO TID #15 08/07/25 caps azithromycin 250 mg tablet See Rx Instructions PO .COMPLEX #6 08/07/25 tabs benzonatate 100 mg capsule 100 mg PO TID PRN cough #10 caps 08/07/25 cephalexin 500 mg capsule 500 mg PO TID 7 days #21 caps 10/14/25 Allergies Allergy/AdvReac Type Severity Reaction Status Date / Time clavulanic acid Allergy Verified 08/07/25 08:53 tazobactam Allergy Verified 08/07/25 08:53 Tetracyclines Allergy Verified 08/07/25 08:53 ibuprofen AdvReac spacing Verified 08/07/25 08:53 out with large doses Review of Systems Status of ROS: Reports: 10 or more systems reviewed and unremarkable except as noted in History and below Narrative: Constitutional: No fevers, no weight gain or loss. Eyes: No discharge. No vision changes. HENT: No congestion, no sore throat, no ear pain. Cardiovascular: No chest pain, no palpitations. Respiratory: No shortness of breath, no wheezes, no cough. Gastrointestinal: No abdominal pain, no vomiting, no diarrhea. Genitourinary: No dysuria, no hematuria. Musculoskeletal: Normal range of motion. Bilateral lower extremity edema with pain, redness, and tenderness in the left lower extremity as described above. Skin: No rashes, no pruritis. Neurological: No dizziness, weakness, sensory change, speech change. Endo/Heme/Allergies: No bruising or bleeding. No polydipsia. Pysch: no suicidality, no anxiety, no insomnia. All other systems reviewed and are negative. 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) ?G57.31 - Lesion of lateral popliteal nerve, right lower limb (ICD-10) History of cataract surgery ?Z98.49 - Cataract extraction status, unspecified eye (ICD-10) History of total knee replacement (2005) ?Z96.659 - Presence of unspecified artificial knee joint (ICD-10) 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 He is primary healthcare power of food vendor. Her son Dimas would be 2nd dairy power of food vendor. Code status is resuscitation for witnessed arrest only. nonsmoker. Drinks 2 glasses of wine a week. uses a lift recliner and walker in her home. What is your current living situation?: I presently have a place to live Problems where you live: no known problems Problems where you live details: Two steps from garage into house In the past 12 months, utilities in danger of being shut off: no In past 12 months, lack of transportation kept you from medical appts, meetings, work, or getting things needed for daily living: no In the past 12 mos, have been you worried that your food would run out before you had money to buy more?: never true In the past 12 mos, the food you bought just didn't last and you didn't have money to buy more?: never true Highest level of school completed/degree received: some college, no degree Smoking Status: Never smoker Do you use any of these nicotine containing products: None Second hand tobacco smoke exposure: No How often do you have a drink containing alcohol: 2-3 times a week Alcohol type: wine How often do you have six or more drinks on one occasion: Never AUDIT-C Alcohol total score: 3 Non-prescribed substance use: denies use Caffeine: Yes (Half caffinated coffee) How often does anyone, including family, friends and others, physically hurt you: never How often does anyone, including family, friends and others, insult or talk down to you: never How often does anyone, including family, friends and others, threaten you with harm: never How often does anyone, including family, friends and others, scream or curse at you: never service: No Exam Narrative: Exam Narrative: Constitutional: Well-developed, well-nourished, no acute distress. HEENT: Normocephalic, atraumatic. Neck: Normal range of motion. Nontender. Supple. Heart: Intact distal pulses. Lungs: No chest discomfort. No wheezes, rhonchi, or rales. Abdomen: Nontender. Back: Normal range of motion. Extremities: Normal range of motion. Bilateral lower extremity edema. The right lower extremity is edematous but rather cool to touch where as the left lower extremity is distinctly warm with increased tenderness and erythema around a bruise on the anterior aspect of her lower extremity just above the ankle joint. Skin: Intact. No rash. Warm. No erythema or pallor. Neurologic: No altered sensation. No weakness. Alert and oriented. Psychiatric: No suicidality. No anxiety or depression. No insomnia. Nursing notes and vitals signs are reviewed. Const: Vital Signs, click to edit/add: Vital Signs - 24 hr 10/14/25 13:09 Temperature 98 F Pulse Rate [Pulse Oximeter] 65 Respiratory Rate 18 Blood Pressure [Ri ght Upper Arm] 133/77 Pulse Oximetry 99 Oxygen Delivery Me thod Room Air Course Vital Signs Vital signs: Initial Vital Signs Temperature 98 F 10/14/25 13:09 Temperature Source Temporal Artery Scan 10/14/25 13:09 Pulse Rate 65 10/14/25 13:09 Respiratory Rate 18 10/14/25 13:09 Blood Pressure 133/77 10/14/25 13:09 Blood Pressure Mean 95 10/14/25 13:09 Pulse Oximetry 99 10/14/25 13:09 Oxygen Delivery Method Room Air 10/14/25 13:09 Vital Signs Temperature 98 F 10/14/25 13:09 Pulse Rate 65 10/14/25 13:09 Respiratory Rate 18 10/14/25 13:09 Blood Pressure 133/77 10/14/25 13:09 Pulse Oximetry 99 10/14/25 13:09 Oxygen Delivery Method Room Air 10/14/25 13:09 Temperature 98 F 10/14/25 13:09 Pulse Rate 65 10/14/25 13:09 Respiratory Rate 18 10/14/25 13:09 Blood Pressure 133/77 10/14/25 13:09 Pulse Oximetry 99 10/14/25 13:09 Oxygen Delivery Method Room Air 10/14/25 13:09 MDM - Extremity Injury (Lower) MDM Narrative Medical decision making narrative: This 89-year-old female comes in with an injury to her left lower extremity as described above. An x-ray is obtained and shows no bony abnormalities. The patient is able to ambulate normally but does have warmth and pain with swelling and redness typical of a cellulitis. She does have a central bruise with surrounding erythema but no sign of abscess or purulent drainage. These symptoms are suspicious of a cellulitis. The patient did receive a prescription for Keflex. She does have home health care and physical therapy and occupational therapy visits regularly and can monitor her progress for recovery here. Discharge Plan Discharge Clinical Impression: Cellulitis Patient Disposition: Home, Self-Care Condition: Stable Additional Instructions: Take medication as prescribed. Continue with home healthcare and occupational therapy as planned. Follow up with MD or return if worsening symptoms occur. Prescriptions: New cephalexin 500 mg capsule 500 mg PO TID 7 Days Qty: 21 0RF No Action PreserVision AREDS-2 250-90-40-1 mg capsule 1 tab PO BID zinc sulfate 50 mg zinc (220 mg) capsule 50 mg PO DAILY acetaminophen 650 mg tablet extended release 1,300 mg PO TID PRN Adult 50 Plus Probiotic 4 billion cell capsule 4,000 mmu cells PO QDAY Rx Instructions: administer with a meal levothyroxine 25 mcg tablet 25 mcg PO QDAY Qty: 90 3RF bupropion HCl 300 mg tablet extended release 24 hr 300 mg PO QDAY Qty: 90 3RF allopurinol 100 mg tablet 50 mg PO DAILY Farxiga 10 mg tablet 10 mg PO QDAY cyanocobalamin (vitamin B-12) PO DAILY lisinopril 20 mg tablet 20 mg PO DAILY multivitamin [Daily Multi-Vitamin] Tablet 1 tab PO DAILY Patient Comments: JAQUAN SALV[employer]OR PROCAPS 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) torsemide 10 mg tablet 10 mg PO DAILY Patient Comments: 10 MG DAILY PLUS ADDITIONAL DOSE IF GAIN 3 LBS OVERNIGHT OR 5 LBS OVER A WEEK Rx Instructions: Take 2 tabs PRN benzonatate 100 mg capsule 100 mg PO TID PRN (Reason: cough) Qty: 10 0RF amoxicillin 500 mg capsule 1,000 mg PO TID Qty: 15 0RF azithromycin 250 mg tablet See Rx Instructions .ROUTE .COMPLEX Qty: 6 0RF Rx Instructions: For 250 mg dose pack: take 500 mg today (day 1), then 250 mg for 4 days (days 2-5) omeprazole 20 mg capsule,delayed release(DR/EC) 20 mg PO QDAY Qty: 90 3RF simvastatin 20 mg tablet 20 mg PO Q48H Qty: 45 3RF nystatin 100,000 unit/gram powder 1 applic topical QID PRN (Reason: rash) Qty: 60 5RF Rx Instructions: USES NEEDED FOR FLARES OF SKIN FOLD DERMATITIS Follow Up/Referrals: Diane Alejandra MD [Primary Care Provider, Internal Medicine] Stand Alone Forms: [facility] Info Instructions
== END 2025-10-14 14:30 | disposition home or self-care (01) ==
PROVIDERS: Emergency Provider Emergency Medicine Emergency Medical Services; PCP Internal Medicine
DX: L03.116 Cellulitis of left lower limb (principal); R60.9 Edema, unspecified
CPT/HCPCS: 73610; 99283; 99284

== ENCOUNTER 2025-10-27 11:46 | Emergency (ER) | payer MEDICARE, BC, SELFPAY ==
[2025-10-27 12:03] VITALS: BP 151/84; PULSE 74; RESP 18; TEMP 36.7; O2SAT 94; BMI 44.3
--- NOTE | 2025-10-27 12:56 | ED.GENADULT ---
HPI - General Adult General Chief complaint: Skin/Abscess/Foreign Body Stated complaint: Fluid leaking in both legs Time Seen by Provider: 10/27/25 12:56 History of Present Illness HPI narrative: Patient here with continued concerns regarding cellulitis and wound on her salgado. She recently was seen in the ER and prescribed keflex. 89-year-old woman presenting to the emergency department with concern of swelling in her lower extremities. Does have a history of lymphedema. Had had some sweeping or swelling at the back of her leg. Has a sore on the left low anterior leg that she would associate with a cut from compression stockings. No fever. No chest pain or new shortness of breath. Also has concerns regarding follow-up urine studies that were requested by nephrology or urology as she had recent a kidney stone and surgical intervention for this. Apparently was contacted by Virginie a couple of days ago with no further follow-up she says. Due to her incontinence though she is wondering how she can collect the urine and suspects will need catheter. Related Data Home Medications ?Medication ?Instructions ?Recorded ?Confirmed allopurinol 100 mg tablet 50 mg PO DAILY 10/07/22 04/27/25 dapagliflozin propanediol 10 mg 10 mg PO QDAY 10/07/22 04/27/25 tablet (Farxiga) zinc sulfate 50 mg zinc (220 mg) 50 mg PO DAILY 10/07/22 04/27/25 capsule lisinopril 20 mg tablet 20 mg PO DAILY 07/24/23 04/27/25 multivitamin (Daily Multi-Vitamin 1 tab PO DAILY 07/24/23 04/27/25 tablet) acetaminophen 650 mg 1,300 mg PO TID PRN 09/29/23 04/27/25 tablet,extended release torsemide 10 mg tablet 10 mg PO DAILY 09/29/23 04/27/25 lactobacillus combination no.9 4 4,000 mmu cells PO QDAY 10/21/24 04/27/25 billion cell capsule (Adult 50 Plus Probiotic) cyanocobalamin (vitamin B-12) PO DAILY 11/20/24 04/27/25 vit C 250 mg-vit E 90 mg-zinc 40 1 tab PO BID 11/25/24 04/27/25 mg-copper 1 [id number] capsule (PreserVision AREDS-2) Previous Rx's ?Medication ?Instructions ?Recorded bupropion HCl 300 mg 24 hr tablet, 300 mg PO QDAY #90 tabs 10/21/24 extended release omeprazole 20 mg capsule,delayed 20 mg PO QDAY #90 caps 12/07/24 release simvastatin 20 mg tablet 20 mg PO Q48H #45 tabs 12/30/24 nystatin 100,000 unit/gram topical 1 applic topical QID PRN rash #60 03/15/25 powder grams benzonatate 100 mg capsule 100 mg PO TID PRN cough #10 caps 08/07/25 levothyroxine 25 mcg tablet 25 mcg PO QDAY #90 tabs 10/28/25 Allergies Allergy/AdvReac Type Severity Reaction Status Date / Time clavulanic acid Allergy Verified 08/07/25 08:53 tazobactam Allergy Verified 08/07/25 08:53 Tetracyclines Allergy Verified 08/07/25 08:53 ibuprofen AdvReac spacing Verified 08/07/25 08:53 out with large doses Review of Systems Status of ROS: Reports: 6 or more systems reviewed and unremarkable except as noted in History and below [facility] Medical History History of deep vein thrombosis (DVT) of lower extremity ?Z86.718 - Personal history of other venous thrombosis and embolism (ICD-10) History of renal stone ?Z87.442 - Personal history of urinary calculi (ICD-10) Surgical History 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) ?G57.31 - Lesion of lateral popliteal nerve, right lower limb (ICD-10) History of cataract surgery ?Z98.49 - Cataract extraction status, unspecified eye (ICD-10) History of total knee replacement (2005) ?Z96.659 - Presence of unspecified artificial knee joint (ICD-10) 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 He is primary healthcare power of employee benefits attorney. Her son Dimas would be 2nd dairy power of employee benefits attorney. Code status is resuscitation for witnessed arrest only. nonsmoker. Drinks 2 glasses of wine a week. uses a lift recliner and walker in her home. What is your current living situation?: I presently have a place to live Problems where you live: no known problems Problems where you live details: Two steps from garage into house In the past 12 months, utilities in danger of being shut off: no In past 12 months, lack of transportation kept you from medical appts, meetings, work, or getting things needed for daily living: no In the past 12 mos, have been you worried that your food would run out before you had money to buy more?: never true In the past 12 mos, the food you bought just didn't last and you didn't have money to buy more?: never true Highest level of school completed/degree received: some college, no degree Smoking Status: Never smoker Do you use any of these nicotine containing products: None Second hand tobacco smoke exposure: No How often do you have a drink containing alcohol: 2-3 times a week Alcohol type: wine How often do you have six or more drinks on one occasion: Never AUDIT-C Alcohol total score: 3 Non-prescribed substance use: denies use Caffeine: Yes (Half caffinated coffee) How often does anyone, including family, friends and others, physically hurt you: never How often does anyone, including family, friends and others, insult or talk down to you: never How often does anyone, including family, friends and others, threaten you with harm: never How often does anyone, including family, friends and others, scream or curse at you: never service: No Exam Narrative: Exam Narrative: Pleasant. NAD. Breathing easily. Lower extremities with 2+ pitting edema. Some not quite blistering subcentimeter scattered over the lower extremities. Palm sized area of faint pink/erythema without notable calor nor tenderness in the mid anterior right salgado. The left anterior lower leg with a 50 cent piece size scab but without surrounding erythematous changes. I do not see any injury or erythema on the posterior right leg as per concern. There is some trace clear liquid here though. Const: Vital Signs, click to edit/add: Vital Signs - 24 hr 10/27/25 12:03 Temperature 98.1 F Pulse Rate [Pulse Oximeter] 74 Respiratory Rate 18 Blood Pressure [Ri ght Upper Arm] 151/84 H Pulse Oximetry 94 Oxygen Delivery Me thod Room Air Documenting provider has reviewed patient's vital signs: yes Course Vital Signs Vital signs: Initial Vital Signs Temperature 98.1 F 10/27/25 12:03 Temperature Source Temporal Artery Scan 10/27/25 12:03 Pulse Rate 74 10/27/25 12:03 Respiratory Rate 18 10/27/25 12:03 Blood Pressure 151/84 H 10/27/25 12:03 Blood Pressure Mean 106 H 10/27/25 12:03 Blood Pressure Position Sitting 10/27/25 12:03 Pulse Oximetry 94 10/27/25 12:03 Oxygen Delivery Method Room Air 10/27/25 12:03 Vital Signs Temperature 98.1 F 10/27/25 12:03 Pulse Rate 74 10/27/25 12:03 Respiratory Rate 18 10/27/25 12:03 Blood Pressure 151/84 H 10/27/25 12:03 Pulse Oximetry 94 10/27/25 12:03 Oxygen Delivery Method Room Air 10/27/25 12:03 Temperature 98.1 F 10/27/25 12:03 Pulse Rate 74 10/27/25 12:03 Respiratory Rate 18 10/27/25 12:03 Blood Pressure 151/84 H 10/27/25 12:03 Pulse Oximetry 94 10/27/25 12:03 Oxygen Delivery Method Room Air 10/27/25 12:03 Medical Decision Making MDM Narrative Medical decision making narrative: I did reach out to primary care provider. Recommendations are to follow up yet with Urology/nephrology further specific recommendations. She does not appear to be in any distress to suggest more significant problem like pulmonary edema. I would focus more on compression of chronic lymphedema as opposed to increasing diuretics. I did place Abrahan wraps on bilateral feet and lower legs. I think this might be better tolerated and manageable. can help. She does not have a cellulitis here today. I did place antibiotic ointment and a nonstick pad on the lower left leg wound. See patient discharge plan for further discussion Be sure to elevate her legs at rest. I think generally keeping some compression on your legs would be a good idea. Less chance of them becoming infected with less fluid in them. Use these Abrahan wraps as placed. Can change daily. Please message your urology clinic as well as your primary care provider about coordinating this 24 hour urine collection. Medical Records Medical records reviewed: Yes I reviewed the patient's medical records Discharge Plan Discharge Clinical Impression: Lymphedema, Abrasion Patient Disposition: Home w/ Parent or Adult Condition: Stable Additional Instructions: Be sure to elevate her legs at rest. I think generally keeping some compression on your legs would be a good idea. Less chance of them becoming infected with less fluid in them. Use these Abrahan wraps as placed. Can change daily. Please message your urology clinic as well as your primary care provider about coordinating this 24 hour urine collection. Prescriptions: No Action PreserVision AREDS-2 250-90-40-1 mg capsule 1 tab PO BID zinc sulfate 50 mg zinc (220 mg) capsule 50 mg PO DAILY acetaminophen 650 mg tablet extended release 1,300 mg PO TID PRN Adult 50 Plus Probiotic 4 billion cell capsule 4,000 mmu cells PO QDAY Rx Instructions: administer with a meal bupropion HCl 300 mg tablet extended release 24 hr 300 mg PO QDAY Qty: 90 3RF allopurinol 100 mg tablet 50 mg PO DAILY Farxiga 10 mg tablet 10 mg PO QDAY cyanocobalamin (vitamin B-12) PO DAILY lisinopril 20 mg tablet 20 mg PO DAILY multivitamin [Daily Multi-Vitamin] Tablet 1 tab PO DAILY Patient Comments: JAQUAN SIOMARAWINDY PROCAPS ESSENTIAL 1 (FROM [employer]) torsemide 10 mg tablet 10 mg PO DAILY Patient Comments: 10 MG DAILY PLUS ADDITIONAL DOSE IF GAIN 3 LBS OVERNIGHT OR 5 LBS OVER A WEEK Rx Instructions: Take 2 tabs PRN benzonatate 100 mg capsule 100 mg PO TID PRN (Reason: cough) Qty: 10 0RF omeprazole 20 mg capsule,delayed release(DR/EC) 20 mg PO QDAY Qty: 90 3RF simvastatin 20 mg tablet 20 mg PO Q48H Qty: 45 3RF nystatin 100,000 unit/gram powder 1 applic topical QID PRN (Reason: rash) Qty: 60 5RF Rx Instructions: USES NEEDED FOR FLARES OF SKIN FOLD DERMATITIS levothyroxine 25 mcg tablet 25 mcg PO QDAY Qty: 90 0RF Follow Up/Referrals: Diane Alejandra MD [Primary Care Provider, Internal Medicine] Stand Alone [email or web address] Info Instructions
== END 2025-10-27 14:29 | disposition home or self-care (01) ==
PROVIDERS: Emergency Provider Family Medicine; PCP Internal Medicine
DX: I89.0 Lymphedema, not elsewhere classified (principal)
CPT/HCPCS: 99283; 99284